=== PATIENT | female | born 1965 | race Caucasian/White ===

== ENCOUNTER → 2019-03-14 | Outpatient (CLI) | payer OTHER, SELFPAY ==
--- NOTE | 2019-03-14 16:52 | EKG12_ITS ---
Test Reason : PREOP Blood Pressure : / mmHG Vent. Rate : 057 BPM Atrial Rate : 057 BPM P-R Int : 182 ms QRS Dur : 084 ms QT Int : 398 ms P-R-T Axes : 052 066 057 degrees QTc Int : 387 ms Sinus bradycardia Otherwise normal ECG No previous ECGs available Confirmed by TRISTON SHEARER ([id number]), graphic editor CHETAN ROJAS ([id number]) on 03/17/2019 11:29:11 AM Referred By: Francis Ochoa Confirmed By:TRISTON SHEARER
--- NOTE | 2019-03-14 17:04 | RAD_ITS ---
STUDY: X-RAY CHEST REASON FOR EXAM: Female, 53 years old. Preoperative TECHNIQUE: PA and lateral views of the chest COMPARISON: None. FINDINGS: The lungs are clear. There are no pleural effusions. There is no pneumothorax. The heart is normal in size. The visualized osseous structures are within normal limits. RAD/Chest PA and Lateral IMPRESSION: No acute thoracic pathology. Electronically Signed: Jose Del Real, at 20:03 EST Tel , Service support ,
== END | disposition home or self-care (01) ==
LOC: RAD 16:50
PROVIDERS: Referring Provider Physician Assistant; Visit Provider Physician Assistant
DX: Z01.810 Encounter for preprocedural cardiovascular examination (principal); F17.200 Nicotine dependence, unspecified, uncomplicated
CPT/HCPCS: 71046; 93005

== ENCOUNTER → 2019-04-11 15:17 | Outpatient (CLI) | payer OTHER, SELFPAY ==
--- NOTE | 2019-04-11 15:31 | EKG12_ITS ---
Test Reason : PRE OP Blood Pressure : / mmHG Vent. Rate : 066 BPM Atrial Rate : 066 BPM P-R Int : 174 ms QRS Dur : 086 ms QT Int : 392 ms P-R-T Axes : 044 058 060 degrees QTc Int : 410 ms Normal sinus rhythm Normal ECG Confirmed by DORI SHEEHAN, GERRI ([id number]), society editor TANG CORDERO ([id number]) on 04/12/2019 11:25:30 AM Referred By: Francis Ochoa Confirmed By:GERRI MEADOWS MD
[2019-04-11 16:34] LABS: Hematocrit 44.7 % (37-47); Hemoglobin 14.8 g/dL (12.0-15.0); Mean Corp Hgb Conc 33.1 g/dL (32-36); Mean Corpuscular Hgb 30.8 pg (27.0-32.0); Mean Corpuscular Volume 92.9 fL (81-99); Platelet Count 216 K/mm3 (150-450); RBC Distribution Width CV 12.6 % (11.6-14.6); RBC Distribution Width SD 43.3 fl (35.1-43.9); Red Blood Count 4.81 M/mm3 (4.2-5.4); White Blood Count 6.2 K/mm3 (4.4-11.0)
[2019-04-11 16:51] LABS: Anion Gap 5 (5-15); BUN 5 mg/dL (7-18); BUN/Creat Ratio 5.3 RATIO (10-20); Calcium,Total 8.7 mg/dL (8.5-10.1); Chloride 108 mmol/L (98-107); Creatinine, Serum 0.95 mg/dL (0.55-1.02); EST Glomerular Filtration Rate 66 mL/min (>60); Est Glom Filt Rate - Afr Amer 80 mL/min (>60); Glucose 94 mg/dL (74-106); Potassium 3.8 mmol/L (3.5-5.1); Sodium Level 139 mmol/L (136-145)
== END ==
PROVIDERS: Referring Provider Physician Assistant; Visit Provider Physician Assistant
DX: Z01.810 Encounter for preprocedural cardiovascular examination (principal); Z01.818 Encounter for other preprocedural examination
CPT/HCPCS: 36415; 80048; 85027; 93005

== ENCOUNTER → 2019-06-29 09:21 | Outpatient (CLI) | payer OTHER, SELFPAY ==
[2019-06-29 10:55] LABS: Cholesterol 242 mg/dL (200); High Density Lipoprotein 50 mg/dL; Triglycerides 228 mg/dL; Very Low Density Lipoprotein 46 mg/dL (5-40)
== END ==
DX: E78.5 Hyperlipidemia, unspecified (principal)
CPT/HCPCS: 36415; 80061

== ENCOUNTER → 2019-11-29 08:21 | Outpatient (CLI) | payer OTHER, SELFPAY ==
--- NOTE | 2019-11-29 08:24 | BI_ITS ---
MAMMOGRAPHY - BILATERAL SCREENING REASON FOR EXAM: Female, 54 years old. Routine annual screening examination. PERTINENT HISTORY: Non-contributory. TECHNIQUE: Digital bilateral breast archie (3D mammographic acquisition) in the CC and MLO projections. 2-D mediolateral oblique (MLO) and craniocaudad (CC) views of both breasts were obtained. CAD: Full Field Digital Mammography with Computer Added Detection was performed. COMPARISON: Comparison is made with prior outside examination dated 06/07/2015. FINDINGS: Breast Composition: The breasts are heterogeneously dense, which may obscure small masses. There are no dominant masses or suspicious calcifications. Stable benign-appearing bilateral axillary lymph nodes. No other significant abnormalities are identified. There has been no significant change since the prior study. BI/SCREEN MAMM (CAD) W/ARCHIE BILAT IMPRESSION: Stable bilateral screening mammogram. Yearly follow-up mammogram recommended. (A) ASSESSMENT CATEGORY: BIRADS Category 2: Benign. A letter regarding these results will be sent to the patient by the facility within 30 days. Approximately 10% of breast cancers are not detected by mammography. A normal mammogram should not delay biopsy of a clinically suspicious abnormality. [id number] Electronically Signed: Meliton Barrios, at 8:40 EDT , Service support ,
--- NOTE | 2019-11-29 08:58 | BD_ITS ---
STUDY: DUAL ENERGY X-RAY ABSORPTIOMETRY / DXA REASON FOR EXAM: Female, 54 years old. SMOKER -- USES STEROID INHALER DAILY x 1 YR -- TAKES ANTI-SEIZURE MEDS FOR BIPOLAR DISORDER -- TAKES MULTIVITAMIN -- DOES MODERATE AMOUNT OF EXERCISE -- YUDY OF 2.25 INCHES TECHNIQUE: Bone Mineral Density (BMD) measurements of lumbar spine and bilateral hips were obtained. COMPARISON: None. FINDINGS: Lumbar Spine (L1-L4): g/cm2 (0.981) / T-score (-1.7) / Z-score (-1.1) Findings are suggestive of osteopenia with a moderate fracture risk. Left Femur Total: g/cm2 (0.912) / T-score (-0.8) / Z-score (-0.2) Left Femoral Neck: g/cm2 (0.838) / T-score (-1.4) / Z-score (-0.6) Right Femur Total: g/cm2 (0.896) / T-score (-0.9) / Z-score (-0.3) Right Femoral Neck: g/cm2 (0.804) / T-score (-1.7) / Z-score (-0.8) BD/Dexa Bone Density Study IMPRESSION: The patient is considered osteopenic as outlined below according to World Pete Organization (WHO) criteria with a moderate fracture risk. Reference Information: The T-score is the number of standard deviations above or below the standard which is normal for young adults at their peak bone mineral density. The World Health Organization (WHO) interprets the T-scores as follows: Above -1 Normal bone density Between -1 and -2.5 Osteopenia Equal to / or below -2.5 Osteoporosis As a practical clinical guideline, osteopenia may be graded as follows: Mild -1 through -1.5 Moderate -1.6 through -2.0 Severe -2.1 through -2.4 The Z-score is the number of standard deviations above or below age-matched controls. A Z-score of less than -1.5 would be considered abnormal. References: 1. NIH Osteoporosis and Related Bone Diseases http://www.osteo.org 2. International Society for Clinical Densitometry http://www.iscd.org 3. National Osteoporosis Foundation http://www.nof.org Electronically Signed: Meliton Barrios, at 15:12 EDT , Service support ,
== END ==
PROVIDERS: PCP Internal Medicine; Referring Provider Internal Medicine; Visit Provider Internal Medicine
DX: Z12.31 Encounter for screening mammogram for malignant neoplasm of breast (principal); Z78.0 Asymptomatic menopausal state
CPT/HCPCS: 77063; 77067; 77080

== ENCOUNTER 2019-12-08 10:00 | Outpatient (RCR) | payer OTHER, SELFPAY ==
--- NOTE | 2019-10-24 14:29 | HP.PTEVAL_ITS ---
Patient's Visit Information ERIC SETHI is a 54 year old F referred to Physical Therapy by Dr. Michael Ashby DO with a diagnosis of Right RTC Repair Apr 2019. Date of Evaluation: 10/24/19 Physical Therapist: Lily Guillermo DPT - Visit Plan Frequency: 3-5x a week Duration: 6 Weeks Plan: Work conditioning- 3x-5x a week- progress to HEP. Please use appropriate codes - Subjective Works for [employer]- Walking through the parking lot at work- caught her toe and fell- right arm injury- October 2018- going through [facility]- finally was approved for surgery- had surgery Apr 2019- did all of her stuff during COVID- bands, arm bike etc. She needs to be able to lift #70 floor to waist and to overhead shelf. She uses a TENS unit at home but feels really stiff. Sent to PT for conditioning. She feels really good going overhead and out to the side- struggles to push out in front of her and pull into her body. Pain is located through the whole shoulder- She does have N/T down to her hand on the right side. Does a lot of overhead activities at work. Has been sleeping in a reclyner and has just started sleeping on her bed in the past few weeks. She is now having a hard time getting comfortable. Has a hard time sweeping her living room with the right shoulder- Worst: 8/10 Agg: overhead activities Eases: TENS unit, hand held massager and rest Best: 0/10. Feels that she is 70-75% back to her normal activities- doesnt feel she has good strength. PMHx/Meds: see list. 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 - Objective Posture: Fh, RS, can correct with verbal cues. Gait: no deviation- good arm swing and trunk rotation. ROM: WNL in all planes of the right upper extremity. Strength:Left Customer Sales Consultant: 60/65/60 Right Customer Sales Consultant: 70/60/60. Shoulder: Flexion: 30.8, 30.1 Extn:18.4, 20.5 Abd: 17.0, 15.8 Add: 18.3, 17.1 IR: 17.3, 18.1 ER: 16.8, 14.9. Elbow: 5/5, Wrist: 5/5 - Goals Goal 1:: Patient will be I with HEP and progression Goal Time Frame: 4-6 Weeks Goal 2:: Patient will lift #70 from floor to waist x10 Goal Time Frame: 4-6 Weeks Goal 3:: Patient will lift #70 from waist to overhead x10 Goal Time Frame: 4-6 Weeks Goal 4:: Patient will stack cones overhead for 8 minutes with 1- 30 sec rest break Goal Time Frame: 4-6 Weeks - Rehabilitation Potential Physical Therapy Diagnosis: Patient presents with hypomobility- she has decreased strength and muscular endurance leading to decreased work tolerance. Rehabilitation Potential: Fair - Anticipated Interventions Patient/Client Instruction: Educate patient on: Benefits of Fitness Program Therapeutic Exercise to Include: Strength training, Endurance training, Agility training, Body mechanics, Postural training, Neuromotor development, Passive ROM, Active ROM, Dynamic Lumbar Stabilization, Scapular Strength/Stabilization For the Purpose of:: To improve muscle performance and motor function Functional Training to Include: Functional work training TENS: Yes Cryotherapy (ice pack, ice massage): Yes Thermo therapy (hot pack): Yes Thank you for the opportunity to evaluate your patient. For Medicare and Medicare HMO plans, please review the plan of care and approve it. It will need to be FAXED BACK to us at [phone] for Medicare purposes. For Medicare only, by signing this I certify the plan of care. Please let me know if there are questions or concerns regarding this plan of care. Physician Signature: Date:
--- NOTE | 2019-12-08 10:45 | HP.PTDCSUM ---
It has been my pleasure to treat ERIC SETHI referred by Dr. Michael Ashby DO, with the diagnosis of Right RTC Repair Apr 2019 for a total of 23 visit(s). Discharge Date: Please see the following information for a summary of their discharge status. Subjective: I return to work tomorrow. No pain in R shoulder R SH Pain Intensity (Out of 10): 0 % Improvement: 95 Objective/Function: R shoulder pain 0/10. R shoulder ROM: flex= 155, abd= 150, ER= 70. R shoulder MMT: 5/5 throughout. I with gym routine. Rx goals achieved Goal 1:: Patient will be I with HEP and progression Goal Progress: Goal Met Goal 2:: Patient will lift #70 from floor to waist x10 Goal Progress: Goal Met Goal 3:: Patient will lift #70 from waist to overhead x10 Goal Progress: Goal Met Goal 4:: Patient will stack cones overhead for 8 minutes with 1- 30 sec rest break Goal Progress: Goal Met Plan: Discharge If there are questions or concerns regarding this patient's physical therapy, please feel free to call me at [phone]. Thank you for the referral of this patient. Sincerely, Skip Juarez, PT, ATC
== END 2019-12-08 19:00 | disposition home or self-care (01) ==
LOC: PT 10:00
PROVIDERS: Referring Provider Orthopaedic Surgery; Visit Provider Orthopaedic Surgery
DX: S46.091D Other injury of muscle(s) and tendon(s) of the rotator cuff of right shoulder, subsequent encounter (principal)
CPT/HCPCS: 97110; 97162; 97164; 97530

== ENCOUNTER 2020-04-01 15:15 | Outpatient (RCR) | payer OTHER, SELFPAY ==
--- NOTE | 2020-04-11 09:03 | MASS.DISCH ---
Massage Therapy Discharge Summary: Initial Evaluation Date: 11/23/2019 Diagnosis: MUSCLE SPASM No. of Visits: 4 Date of last visit: 04/01/2020 This patient is being discharged from our care at the [facility]. Thank you, Eleonora Buck LMT
== END 2020-04-01 19:00 | disposition home or self-care (01) ==
LOC: MASS 15:15
PROVIDERS: Referring Provider Internal Medicine; Visit Provider Internal Medicine
DX: M62.838 Other muscle spasm (principal)
CPT/HCPCS: 97124

== ENCOUNTER 2020-06-25 08:59 | Emergency (ER) | payer OTHER, SELFPAY ==
[2020-06-25 09:01] VITALS: BP 127/83; PULSE 91; RESP 22; TEMP 35.7; O2SAT 95; BMI 26.6
--- NOTE | 2020-06-25 09:21 | EKG12_ITS ---
Test Reason : SOB Blood Pressure : / mmHG Vent. Rate : 074 BPM Atrial Rate : 074 BPM P-R Int : 164 ms QRS Dur : 088 ms QT Int : 372 ms P-R-T Axes : 057 066 064 degrees QTc Int : 412 ms Normal sinus rhythm Possible Left atrial enlargement Nonspecific T wave abnormality Abnormal ECG Confirmed by DORI SHEEHAN, GERRI ([id number]), editorial specialist JANEL CHEN ([id number]) on 06/26/2020 12:48:05 PM Referred By: EDU Confirmed By:GERRI MEADOWS MD
--- NOTE | 2020-06-25 09:23 | ED.DCSUM_ITS ---
History of Present Illness Chief Complaint: Shortness of Breath Informant: Patient Narrative: 54-year-old female presenting with shortness of breath. She states that she has had shortness of breath since she had Covid in April. She states that 2 weeks ago she was admitted for chest pressure. She had a normal echocardiogram. She had a negative CTA for PE or other abnormalities. 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 She states yesterday was a little bit worse. Patient admits to smoking but is trying to cut down. She has no diagnosis of COPD or asthma. Past Medical History - Allergies and Home Meds Allergies/Adverse Reactions: Allergies aspirin [ASA] Allergy (Verified 06/25/20 09:01) Other budesonide [From Symbicort] Allergy (Verified 06/25/20 09:01) Anaphylaxis formoterol [From Symbicort] Allergy (Verified 06/25/20 09:01) Anaphylaxis Penicillins [PCN] Allergy (Verified 06/25/20 09:01) Hives tape Allergy (Uncoded 06/25/20 09:01) Hives Primary Care Physician: Lida Cool DO [Primary Care Provider] - Past Medical History: - - CAD, cardiac stents Surgical History: noncontributory Lives: Spouse/ Significant Other Smoking Status: Former smoker Alcohol: None Drugs: None Review of Systems General: Denies: Chills, Fever, Sweats Eyes: Denies: Visual changes - bilaterally, Diplopia ENT: Denies: Rhinorrhea, Sore throat Cardiovascular: Denies: Chest pain, Palpitations Respiratory: Reports: Dyspnea, Dyspnea on exertion Gastrointestinal: Denies: Abdominal pain, Nausea Genitourinary: Denies: Dysuria, Hematuria Musculoskeletal: Denies: Myalgias, Arthralgias Skin: Denies: Rash, Abscess Neurological: Denies: Headache, Weakness, Parasthesia Psych: Denies: Depression, Anxiety Physical Exam Vital Signs/Narrative: Vital Signs Temp Pulse Resp BP Pulse Ox 06/25/20 09:01 96.3 F L 91 22 H 127/83 H 95 Inital Vital Signs reviewed: Yes General: Well nourished, No Acute Distress Head: Normocephalic, Atraumatic Eyes: Perrl, EOMI ENT: Moist mucous membranes, No rhinorrhea Respiratory: No distress, Chest nontender, Wheezing Extremities: Nontender, No edema Skin: Normal color, No rash. Negative for: Cyanosis, Diaphoresis Neurological: Alert, Oriented x3, Cranial nerves II-XII grossly intact Psychological: Normal affect, Normal Mood Diagnostic/Tx/Re-eval - Rhythm Strip Rhythm Strip: Sinus Rhythm Rate: 74 - Medical Decision Making 54-year-old female presenting with shortness of breath. On examination she is wheezing. 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 Patient states she continues to smoke but has cut down. Review of the medical record in [facility] work was normal with exception of leukopenia. Patient had a negative CTA. Patient states that her echocardiogram on admission was normal. Protocol EKG interpreted by myself which shows a sinus rhythm without acute ischemic changes. Given patient's most recent extensive work-up I do not believe she needs lab work or imaging at this time. Since she is wheezing I will give her breathing treatments and prednisone. Patient reevaluated after breathing treatments and states she feels much improved. Her wheezing has resolved on reevaluation. I will start her on doxycycline as well. Patient counseled to discontinue smoking. Patient will be discharged home with doxycycline, prednisone burst. She states she already has an inhaler at home. Patient counseled to follow-up with her PCP to ensure resolution. Impression: 1. Acute bronchitis ED Disposition - Plan for ED Patient: Disposition: Home or Assisted Living Instructions: ED Bronchitis with Wheezing (Adult) Prescriptions: Doxycycline 100 mg PO BID #20 cap Prescription Printed predniSONE tablet 60 mg PO DAILY #15 tab Prescription Printed Referrals: Lida Cool DO [Primary Care Provider] -
[2020-06-25 09:45] VITALS: PULSE 84; RESP 16
[2020-06-25] MEDS: Albuterol 2.5 MG/3 ML VIAL.NEB. INHALATION (09:45)
[2020-06-25] MEDS: Ipratropium/Albuterol Sulfate 3 ML AMPUL.NEB INHALATION (09:45)
[2020-06-25] MEDS: Doxycycline 100 MG CAPSULE PO (09:57)
[2020-06-25] MEDS: predniSONE 20 MG Tablet 60 MG PO (09:57)
[2020-06-25 10:11] VITALS: BP 113/70; PULSE 62; RESP 15; O2SAT 97
== END 2020-06-25 10:12 | disposition home or self-care (01) ==
PROVIDERS: Emergency Provider Student in an Organized Health Care Education/Training Program; PCP Internal Medicine
DX: J20.9 Acute bronchitis, unspecified (principal); I25.10 Atherosclerotic heart disease of native coronary artery without angina pectoris; Z87.891 Personal history of nicotine dependence; Z95.5 Presence of coronary angioplasty implant and graft
CPT/HCPCS: 93005; 94640; 99283

== ENCOUNTER 2020-07-05 08:13 | Outpatient (CLI) | payer OTHER, SELFPAY ==
[2020-07-05 09:10] VITALS: BP 107/67; PULSE 74; RESP 16; TEMP 36.8; O2SAT 100; BMI 26.6
[2020-07-05] MEDS: 0.9% NaCl Peripheral Flush Adult/Peds IV ×3 (09:16→09:24)
== END 2020-07-05 14:00 | disposition home or self-care (01) ==
PROVIDERS: PCP Internal Medicine; Referring Provider Internal Medicine; Visit Provider Internal Medicine
DX: R05 Cough (principal); R09.89 Other specified symptoms and signs involving the circulatory and respiratory systems
CPT/HCPCS: 96374; A4216

== ENCOUNTER 2020-07-05 20:51 | Outpatient (CLI) | payer OTHER, SELFPAY ==
[2020-07-05 09:10] VITALS: BMI 26.6
[2020-07-05 20:20] VITALS: BP 116/71; PULSE 72; RESP 16; TEMP 36.9; O2SAT 97
[2020-07-05] MEDS: 0.9% NaCl Peripheral Flush Adult/Peds IV (21:03)
== END 2020-07-05 21:26 ==
LOC: MEDOUTP 20:51 → MS3 20:52 → MEDOUTP 01-14 07:43
PROVIDERS: PCP Internal Medicine; Referring Provider Internal Medicine; Visit Provider Internal Medicine
DX: R05 Cough (principal); R09.89 Other specified symptoms and signs involving the circulatory and respiratory systems
CPT/HCPCS: A4216

== ENCOUNTER 2020-07-06 08:05 | Outpatient (CLI) | payer OTHER, SELFPAY ==
[2020-07-05 09:10] VITALS: BMI 26.6
[2020-07-06] MEDS: 0.9% Saline Lock 10 ML Syringe IV (08:40)
== END 2020-07-06 08:45 | disposition home or self-care (01) ==
LOC: MEDOUTP 08:06 → MS3 08:07
PROVIDERS: PCP Internal Medicine; Referring Provider Internal Medicine; Visit Provider Internal Medicine
DX: R05 Cough (principal); R09.89 Other specified symptoms and signs involving the circulatory and respiratory systems
CPT/HCPCS: A4216

== ENCOUNTER 2020-07-06 19:45 | Outpatient (CLI) | payer OTHER, SELFPAY ==
[2020-07-05 09:10] VITALS: BMI 26.6
[2020-07-06 19:54] VITALS: BP 115/73; PULSE 80; RESP 20; TEMP 36.9; O2SAT 96
[2020-07-06] MEDS: 0.9% NaCl Peripheral Flush Adult/Peds IV ×2 (19:59→20:00)
== END 2020-07-06 20:09 | disposition home or self-care (01) ==
LOC: MEDOUTP 19:47 → MS3 19:47
PROVIDERS: PCP Internal Medicine; Referring Provider Internal Medicine; Visit Provider Internal Medicine
DX: R05 Cough (principal); R09.89 Other specified symptoms and signs involving the circulatory and respiratory systems
CPT/HCPCS: 96372; A4216

== ENCOUNTER 2020-07-07 07:44 | Outpatient (CLI) | payer OTHER, SELFPAY ==
[2020-07-07] MEDS: 0.9% Saline Lock 10 ML Syringe IV (08:14)
[2020-07-07 20:03] VITALS: BP 117/79; PULSE 82; RESP 20; TEMP 37; O2SAT 97
== END 2020-07-07 20:14 | disposition home or self-care (01) ==
LOC: MS3OUT 07:52 → MS3 07:53 → MEDOUTP 19:56 → MS3 19:58
PROVIDERS: PCP Internal Medicine; Visit Provider Internal Medicine
DX: R05 Cough (principal); R09.89 Other specified symptoms and signs involving the circulatory and respiratory systems
CPT/HCPCS: 96374; 96376; A4216

== ENCOUNTER → 2020-07-15 13:46 | Outpatient (CLI) | payer OTHER, SELFPAY ==
[2020-07-05 09:10] VITALS: BMI 26.6
--- NOTE | 2020-07-15 13:48 | VDLE_ITS ---
Reason For Study: PAIN RIGHT LEFT GSV is normal. CFV is compressible, spontaneous, phasic, CFV is compressible, spontaneous, phasic, competent, and demonstrates normal competent and demonstrates normal augmentation. augmentation. FV is compressible, spontaneous, phasic, competent and demonstrates normal augmentation. POP V is compressible, spontaneous, phasic, competent and demonstrates normal augmentation. T/P Trunk is compressible. PTV is compressible. RT PerV is compressible. Procedure Exam performed in department. A preliminary report was called and/or faxed to Marva Black. Interpretation Summary Deep veins of the right lower extremity are patent and compressible segmentally. There is no evidence of right lower extremity deep vein thrombosis. Valvular competence appears intact within the proximal deep venous system on the right . The right great saphenous vein appears patent and compressible segmentally. Ordering Physician: Marva Black Referring Physician: SOLIS PASTRANA Performed By: Brianda Harris, MT, RVT
== END ==
PROVIDERS: PCP Internal Medicine; Referring Provider Nurse Practitioner; Visit Provider Nurse Practitioner
DX: M79.661 Pain in right lower leg (principal)
CPT/HCPCS: 93971

== ENCOUNTER → 2020-10-28 12:00 | Outpatient (CLI) | payer OTHER, SELFPAY ==
[2020-10-28 15:47] LABS: Hematocrit 41.9 % (37-47); Hemoglobin 13.1 g/dL (12.0-15.0); Mean Corp Hgb Conc 31.3 g/dL (32-36); Mean Corpuscular Hgb 27.8 pg (27.0-32.0); Mean Corpuscular Volume 88.8 fL (81-99); Mean Platelet Vol. 9.4 fl (6.2-12.0); Platelet Count 208 K/mm3 (150-450); RBC Distribution Width CV 13.9 % (11.6-14.6); RBC Distribution Width SD 44.8 fl (35.1-43.9); Red Blood Count 4.72 M/mm3 (4.2-5.4); White Blood Count 5.5 K/mm3 (4.4-11.0)
[2020-10-28 16:42] LABS: ALB/GLOB Ratio 1.1 RATIO (0.9-2.4); AST(SGOT) 25 U/L (15-37); Alanine Aminotransfer ALT/SGPT 36 U/L (13-56); Albumin, Serum 3.4 g/dL (3.2-5.0); Alkaline Phosphatase 115 U/L (45-117); Anion Gap 9 (5-15); BUN 8 mg/dL (7-18); BUN/Creat Ratio 8.6 RATIO (10-20); Calcium,Total 8.4 mg/dL (8.5-10.1); Chloride 110 mmol/L (98-107); Creatinine, Serum 0.93 mg/dL (0.55-1.02); EST Glomerular Filtration Rate 67 mL/min (>60); Est Glom Filt Rate - Afr Amer 81 mL/min (>60); Globulin 3.2 g/dL (2.2-4.2); Glucose 120 mg/dL (74-106); Potassium 3.1 mmol/L (3.5-5.1); Protein, Total 6.6 g/dL (6.4-8.2); Sodium Level 141 mmol/L (136-145)
== END ==
PROVIDERS: PCP Internal Medicine
DX: F31.32 Bipolar disorder, current episode depressed, moderate (principal)
CPT/HCPCS: 36415; 80053; 80156; 85027

== ENCOUNTER → 2021-02-10 07:42 | Outpatient (CLI) | payer OTHER, SELFPAY ==
[2021-02-10 08:19] LABS: Hematocrit 44.3 % (37-47); Hemoglobin 14.3 g/dL (12.0-15.0); Mean Corp Hgb Conc 32.3 g/dL (32-36); Mean Corpuscular Hgb 28.8 pg (27.0-32.0); Mean Corpuscular Volume 89.3 fL (81-99); Platelet Count 213 K/mm3 (150-450); RBC Distribution Width CV 13.7 % (11.6-14.6); RBC Distribution Width SD 44.5 fl (35.1-43.9); Red Blood Count 4.96 M/mm3 (4.2-5.4); White Blood Count 5.7 K/mm3 (4.4-11.0)
[2021-02-10 08:36] LABS: Carbamazepine (Tegretol) 12.5 ug/mL (4.0-12.0)
[2021-02-10 08:44] LABS: AST(SGOT) 23 U/L (15-37); Alanine Aminotransfer ALT/SGPT 38 U/L (13-56); Albumin, Serum 3.5 g/dL (3.2-5.0); Alkaline Phosphatase 125 U/L (45-117); Anion Gap 3 (5-15); BUN 11 mg/dL (7-18); BUN/Creat Ratio 11.1 RATIO (10-20); Calcium,Total 8.6 mg/dL (8.5-10.1); Chloride 114 mmol/L (98-107); EST Glomerular Filtration Rate 62 mL/min (>60); Est Glom Filt Rate - Afr Amer 75 mL/min (>60); Globulin 3.6 g/dL (2.2-4.2); Glucose 102 mg/dL (74-106); Potassium 3.9 mmol/L (3.5-5.1); Protein, Total 7.1 g/dL (6.4-8.2); Sodium Level 142 mmol/L (136-145)
== END ==
PROVIDERS: PCP Internal Medicine
DX: F31.32 Bipolar disorder, current episode depressed, moderate (principal)
CPT/HCPCS: 36415; 80053; 80156; 85027

== ENCOUNTER 2021-03-09 01:39 | Emergency (ER) | payer OTHER, SELFPAY ==
[2021-03-09 01:39] VITALS: BP 103/80; PULSE 70; RESP 17; TEMP 36.3; O2SAT 96; BMI 26.2
--- NOTE | 2021-03-09 02:04 | EKG12_ITS ---
Test Reason : CP Blood Pressure : / mmHG Vent. Rate : 066 BPM Atrial Rate : 066 BPM P-R Int : 160 ms QRS Dur : 086 ms QT Int : 398 ms P-R-T Axes : 062 071 072 degrees QTc Int : 417 ms Normal sinus rhythm Normal ECG Confirmed by DIANA SHEEHAN, ELIDIA ([id number]), editor house organ JANEL CHEN ([id number]) on 03/10/2021 10:45:02 AM Referred By: JANUARY Confirmed By:ELIDIA ORTIZ MD
--- NOTE | 2021-03-09 02:04 | RAD_ITS ---
STUDY: X-RAY CHEST REASON FOR EXAM: Female, 55 years old. chest pain TECHNIQUE: Single AP portable view of the chest. COMPARISON: July 04, 2020. FINDINGS: No focal infiltrates or effusions. No pneumothorax. Normal size heart. Normal mediastinum and saloni. Normal visualized pulmonary arteries. Normal visualized aortic arch and descending thoracic aorta. Normal visualized thoracic spine. Normal visualized ribs, clavicles, and shoulders. There is no demonstrated abnormality of the visualized soft tissue structures of the upper abdomen. RAD/Chest 1 View (Portable) IMPRESSION: Normal x-ray examination of the chest. Electronically Signed: Avila Rae MD at 2:24 EST , Service support ,
--- NOTE | 2021-03-09 02:05 | ED.VIS.CHEST ---
HPI History of Present Illness Chief Complaint: Chest Pain Informant: patient Onset/Context/Timing Onset: Hours (1-2) Activity at onset: sudden, onset, activity on onset and sleep Timing: Continuous Quality: Positive for Pressure Location: Substernal (Without radiation/migration, arm, jaw, or back discomfort) Current Severity: 2/10 Maximum Severity: 10/10 Worsened By: Nothing Relieved By: Nothing Associated Symptoms: Positive for Nausea, Dyspnea and Lightheadedness (Near syncopal without palpitations); Negative for Vomiting, Diaphoresis, Cough and Fever Narrative Narrative: Patient concerns she woke up with a severe episode of nonpleuritic substernal chest pressure that made her feel like she was going to pass out, a little short of breath, and nauseated. The discomfort has subsided it is still present, but much more mild than the other symptoms are gone. She has a history of 2 stents that were placed in around 3 years ago.. She continues to smoke and recently was diagnosed with COPD. She has a history of being diagnosed with Covid almost 1 year ago and had pneumonia associated with it for 2 or 3 months but has since recovered. She is allergic to aspirin and takes clopidogrel daily, last taken yesterday morning. No recent leg pain or swelling, no history of DVT or PE, no recent long travel, immobilization, hospitalization, or surgery. Recent Illness/Hospitalization: No PE Risk Factors: Negative for Recent Travel/Surgery, Recent Immobilization, Prior DVT or PE, Cancer and OCP + Smoking + >/=35 PFSH [facility] Medical History CAD (coronary artery disease) COPD (chronic obstructive pulmonary disease) Home Medications doxycycline monohydrate 100 mg PO BID #20 cap 06/25/20 [Rx Last Taken Unknown] prednisone 60 mg PO DAILY #15 tab 06/25/20 [Rx Last Taken Unknown] albuterol sulfate 8.5 gm INHALATION DAILY 07/05/20 [History Last Taken Unknown] alirocumab 75 mg SQ DAILY 07/05/20 [History Last Taken Unknown] azelastine 1 spray NASAL DAILY 07/05/20 [History Last Taken Unknown] cariprazine 1.5 mg PO DAILY 07/05/20 [History Last Taken Unknown] clonazepam 0.5 mg PO DAILY 07/05/20 [History Last Taken Unknown] clopidogrel 75 mg PO DAILY 07/05/20 [History Last Taken Unknown] topiramate 100 mg PO DAILY 07/05/20 [History Last Taken Unknown] trazodone 50 mg PO QHS 07/05/20 [History Last Taken Unknown] vilazodone 07/05/20 [History Last Taken Unknown] Allergy/AdvReac Type Severity Reaction Status Date / Time aspirin [ASA] Allergy Other Verified 07/05/20 09:02 budesonide [From Symbicort] Allergy Anaphylaxis Verified 07/05/20 09:02 formoterol [From Symbicort] Allergy Anaphylaxis Verified 07/05/20 09:02 latex Allergy Hives Verified 03/09/21 01:44 EST Penicillins [PCN] Allergy Hives Verified 07/05/20 09:02 tape Allergy Hives Uncoded 06/25/20 09:01 Surgical History (Updated 03/09/21 @ 01:44 EST by Lily Mccurdy) H/O: hysterectomy History of cholecystectomy History of heart artery stent Hx of tonsillectomy Social History Smoking Status: Current every day smoker tobacco type: cigarettes ROS ROS ED Constitutional Constitutional ED: Reports malaise; Denies chills or fever(s) Eyes Eyes: Denies change in vision or diplopia ENT ENT ED: Denies rhinorrhea or sore throat Cardiovascular Cardiovascular: Reports chest pain; Denies palpitations Respiratory/Chest Respiratory/Chest: Reports dyspnea; Denies cough Gastrointestinal Gastrointestinal: Denies abdominal pain, diarrhea, nausea or vomiting Genitourinary Genitourinary ED: Denies dysuria or hematuria Musculoskeletal Musculoskeletal: Denies back pain or neck pain Integumentary Denies abscess or rash Neurologic Neurologic: Denies headache(s), paresthesias or weakness Psychiatric Psychiatric: Denies anxiety or suicidal thoughts EXAM Physical Exam Const Vital Signs: 03/09/21 01:39 EST 03/09/21 01:41 EST 03/09/21 02:19 Temperature 97.3 F L Temperature Source Temporal Pulse Rate 70 Respiratory Rate 17 Respiratory Effort Normal Respiratory Pattern Normal Blood Pressure 103/80 Blood Pressure Mean 87 Pulse Ox 96 Oxygen Delivery Method Room Air Nasal Cannula Oxygen Flow Rate (L/min) 2 03/09/21 04:05 Temperature Temperature Source Pulse Rate 63 Respiratory Rate 19 H Respiratory Effort Respiratory Pattern Blood Pressure 108/77 Blood Pressure Mean 87 Pulse Ox 93 Oxygen Delivery Method Room Air Oxygen Flow Rate (L/min) Positive well nourished and well developed Constitutional Narrative: Well-appearing conversive in full sentences General Appearance ED: well developed and NAD HEENT Reports moist mucous membranes normocephalic and atraumatic Eyes PERRL and EOMs intact bilaterally Neck full ROM and supple Resp normal respiratory effort and clear to auscultation bilaterally Cardio regular rate, regular rhythm and no murmurs Rate: Negative for tachycardic GI non-tender and non-distended Auscultation: normoactive bowel sounds Palpation: soft Back/Spine no CVA tenderness General Back: other FROM Extremity normal to inspection General Extremety ED: Negative for edema, pulses abnormal or tenderness General Extremity: Negative for edema or pulses abnormal Neuro oriented x3, CN's II-XII intact bilaterally and no sensory deficits noted Sensorium / Orientation: awake and alert Motor Exam: strength 5/5 throughout Skin no rashes or lesions noted and no wounds Heart Score History: Moderately Suspicious ECG: Normal Age: >45 - <65 years Risk Factors: >/= 3 Risk Factors or History of CAD Troponin: </= Normal Limit Score: 4 MDM MDM MDM Narrative Medical decision making narrative: Initial work-up normal including EKG and troponin, we did a 2-hour delta troponin, the repeat came back even lower at 5 compared to the initial at 6. Patient was given some Mylanta given that this is less likely cardiac, it did not make a difference and she was offered nitroglycerin but she did not want anything else for her discomfort and is comfortable going home. I do not think she needs work-up for a pulmonary embolus here, she has no tachycardia, tachypnea, hypoxemia, nor are her symptoms pleuritic or suggesting this diagnosis. Advise close outpatient follow-up if symptoms persist. Lab Data Attestation: I reviewed the patient's lab results. Labs: Laboratory Results - last 24 hr 03/09/21 03/09/21 03/09/21 01:43 EST 01:43 EST 03:50 WBC 6.4 RBC 4.90 Hgb 14.0 Hct 44.5 MCV 90.8 MCH 28.6 MCHC 31.5 L RDW Std Deviation 45.5 H RDW Coeff of Benigno 13.6 Plt Count 213 MPV 9.6 Immature Gran % (Auto) 0.300 Neut % (Auto) 48.7 Lymph % (Auto) 39.1 Rowan % (Auto) 8.0 Eos % (Auto) 3.3 Baso % (Auto) 0.6 Absolute Neuts (auto) 3.1 Absolute Lymphs (auto) 2.50 Nucleated RBC % 0 Sodium 141 Potassium 3.9 Chloride 113 H Carbon Dioxide 26.0 Anion Gap 2 L BUN 11 Creatinine 1.04 H Estim Creat Clear Calc 60.83 Est GFR (MDRD) Af Amer 71 Est GFR (MDRD) Non-Af 59 L BUN/Creatinine Ratio 10.6 Glucose 128 H Calcium 8.5 Troponin I High Sens 6 5 Radiography Chest X-Ray - ED: 1 View, Read by ED Physician, Normal and No Acute Disease Diagnostic Testing: Clinical Impression(s) from Imaging Studies Chest X-Ray 03/09/21 02:04 IMPRESSION: Normal x-ray examination of the chest. Electronically Signed: Avila Rae MD at 2:24 EST , Service support , EKG Initial EKG: Attestation: I personally reviewed and interpreted this EKG as follows: Interpretation: Sinus Rhythm and No Acute Injury Pattern Comments: Normal EKG Prior EKG tracings: available for review Prior: Unchanged Discharge Plan Triage Chief Complaint: Chest Pain ED Provider: Ronald Castro Dx/Rx/DC Orders Clinical Impression: Chest pain Instructions: ED Chest Pain, Uncertain Cause Prescriptions: No Action doxycycline monohydrate 100 MG capsule 100 mg PO BID Qty: 20 RF: 0 prednisone 20 MG tablet 60 mg PO DAILY Qty: 15 RF: 0 trazodone 50 MG tablet 50 mg PO QHS RF: 0 clonazepam 0.5 MG tablet 0.5 mg PO DAILY RF: 0 clopidogrel 75 MG tablet 75 mg PO DAILY RF: 0 azelastine 1 SPRAY aerosol,spray 1 spray NASAL DAILY RF: 0 albuterol sulfate 8.5 GM HFA aerosol inhaler 8.5 gm INHALATION DAILY RF: 0 topiramate 100 MG tablet 100 mg PO DAILY RF: 0 vilazodone 40 MG tablet RF: 0 alirocumab 75 MG/ML pen injector 75 mg SQ DAILY RF: 0 cariprazine 1.5 MG capsule 1.5 mg PO DAILY RF: 0 Primary Care Provider: Lida Cool Referrals: Lida Cool, [Primary Care Provider] - 3-5 Days if not improving Disposition Disposition: Home, Self Care
[2021-03-09] MEDS: Mag Hydrox/Al Hydrox/Simeth 30 ML UDC PO (02:18)
[2021-03-09 02:39] LABS: Anion Gap 2 (5-15); BUN 11 mg/dL (7-18); BUN/Creat Ratio 10.6 RATIO (10-20); Calcium,Total 8.5 mg/dL (8.5-10.1); Chloride 113 mmol/L (98-107); Creatinine, Serum 1.04 mg/dL (0.55-1.02); EST Glomerular Filtration Rate 59 mL/min (>60); Est Glom Filt Rate - Afr Amer 71 mL/min (>60); Estimated Creatinine Clearance 60.83 ml/min; Glucose 128 mg/dL (74-106); Potassium 3.9 mmol/L (3.5-5.1); Sodium Level 141 mmol/L (136-145); Troponin-I HS 6 pg/mL (3.0-54.0)
[2021-03-09 02:53] LABS: Absolute Neutrophil Count 3.1 X10^3/uL (2.0-7.7); Basophil# 0.04 X10^3/uL; Basophil% 0.6 % (0-1); Eosinophil# 0.21 X10^3/uL; Eosinophils% 3.3 % (0-5); Hematocrit 44.5 % (37-47); Lymphocyte % 39.1 % (19-41); Mean Corp Hgb Conc 31.5 g/dL (32-36); Mean Corpuscular Hgb 28.6 pg (27.0-32.0); Mean Corpuscular Volume 90.8 fL (81-99); Mean Platelet Vol. 9.6 fl (6.2-12.0); Monocyte# 0.51 X10^3/uL; NRBC Flagged by Analyzer 0 % (0-5); Neutrophil # 3.11 X10^3/uL (2.7-7.7); Neutrophil % 48.7 % (47-70); Platelet Count 213 K/mm3 (150-450); RBC Distribution Width CV 13.6 % (11.6-14.6); RBC Distribution Width SD 45.5 fl (35.1-43.9); White Blood Count 6.4 K/mm3 (4.4-11.0)
[2021-03-09 04:05] VITALS: BP 108/77; PULSE 63; RESP 19; O2SAT 93
[2021-03-09 04:12] LABS: Troponin-I HS 5 pg/mL (3.0-54.0)
--- NOTE | 2021-03-09 04:34 | ED.RN ---
pt did decline the nitro,stated she would wait for the results.
[2021-03-09 04:35] VITALS: BP 111/67; PULSE 65; RESP 15; O2SAT 95
== END 2021-03-09 04:35 | disposition home or self-care (01) ==
PROVIDERS: Emergency Provider Emergency Medicine; PCP Internal Medicine
DX: R07.89 Other chest pain (principal); F17.210 Nicotine dependence, cigarettes, uncomplicated; I25.10 Atherosclerotic heart disease of native coronary artery without angina pectoris; Z86.16 Personal history of COVID-19
CPT/HCPCS: 71045; 80048; 84484; 85025; 93005; 99285; A4216

== ENCOUNTER → 2021-03-22 09:17 | Outpatient (CLI) | payer OTHER, SELFPAY ==
[2021-03-22 10:33] LABS: Cholesterol 166 mg/dL (200); High Density Lipoprotein 82 mg/dL; Thyroid Stim Hormone (TSH) 1.75 uIU/mL (0.358-3.74); Triglycerides 76 mg/dL; Very Low Density Lipoprotein 15 mg/dL (5-40)
== END ==
PROVIDERS: PCP Internal Medicine; Visit Provider Internal Medicine
DX: I25.10 Atherosclerotic heart disease of native coronary artery without angina pectoris (principal)
CPT/HCPCS: 36415; 80061; 84443

== ENCOUNTER → 2021-03-24 12:23 | Outpatient (CLI) | payer OTHER, SELFPAY ==
--- NOTE | 2021-03-24 12:25 | BI_ITS ---
MAMMOGRAPHY - BILATERAL SCREENING 3-D TOMOSYNTHESIS REASON FOR EXAM: Female, 55 years old. SCREENING PERTINENT HISTORY: No significant family history. TECHNIQUE: 2-D mammograms and 3-D Tomosynthesis of the breast (s) were performed. CAD was performed. COMPARISON: 11/29/2019 FINDINGS: The breast composition is composed of scattered fibroglandular density. Scattered benign calcifications are seen. No dense spiculated masses or suspicious microcalcifications are identified. No architectural distortion is identified. There is no skin thickening or retraction. There has been no significant change since the prior study. BI/SCRN MAMM (CAD)W/ARCHIE BILAT IMPRESSION: No mammographic signs of malignancy. Routine yearly mammograms recommended. ASSESSMENT CATEGORY: BIRADS Category 1: Negative. A letter regarding these results will be sent to the patient by the facility within 30 days. FOLLOW UP RECOMMENDATION: Yearly follow up mammogram recommended. (A) Approximately 10% of breast cancers are not detected by mammography. A normal mammogram should not delay biopsy of a clinically suspicious abnormality. Electronically Signed: Gera Ramirez MD at 14:42 EST , Service support ,
== END ==
PROVIDERS: PCP Internal Medicine; Referring Provider Internal Medicine; Visit Provider Internal Medicine
DX: Z12.31 Encounter for screening mammogram for malignant neoplasm of breast (principal)
CPT/HCPCS: 77063; 77067

== ENCOUNTER 2021-04-20 09:43 | Emergency (ER) | payer OTHER, SELFPAY ==
[2021-04-20 09:44] VITALS: BP 134/92; PULSE 71; RESP 16; TEMP 35.1; O2SAT 97; BMI 25.8
--- NOTE | 2021-04-20 09:55 | RAD_ITS ---
STUDY: X-RAY - LEFT ANKLE REASON FOR EXAM: Female, 55 years old. Injury/Pain TECHNIQUE: 4 view(s) of the ankle. COMPARISON: None. FINDINGS: Normal visualized distal tibia and fibula. Normal medial and lateral malleoli. Normal tibiotalar articulation and ankle mortise. Normal visualized talus. Small calcaneal spurs The visualized subtalar, talonavicular, calcaneocuboid and tarsal articulations are normal. The soft tissue structures are unremarkable. RAD/Ankle min 3 Views IMPRESSION: Calcaneal spurs, no demonstrated fracture or suspicious osseous lesion Electronically Signed: Gera Ramirez MD at 10:16 EST , Service support ,
--- NOTE | 2021-04-20 10:00 | ED.VIS.LOWEX ---
HPI History of Present Illness Chief Complaint: Lower Extremity Injury Informant: patient Occured/Mechanism Mechanism/Context: Yes fall Comment: Fall off of a folding chair Onset/Context/Timing Onset: Today Context: Sudden Onset Timing: Continuous Quality of Pain: Burning Location: Left ankle Worsened by: Weightbearing Relieved by: Nothing Associated Symptoms Associated Symptoms: Negative for Parasthesia, Weakness and Loss of Funtion Narrative Narrative: Patient presents with injury to her left ankle that occurred today. Patient states she was standing on a folding chair while she was decorating her [place] tree. Patient states she fell off of the chair and inverted her left ankle. Patient states her pain is burning. Patient states her pain radiates up the anterior aspect of her left lower leg. Patient states her pain is worse with any weightbearing. Patient denies any paresthesias or weakness. Patient denies any head injury or loss of consciousness. Patient denies any pain over the proximal fibula or fifth metatarsal. [facility] Medical History CAD (coronary artery disease) COPD (chronic obstructive pulmonary disease) Home Medications doxycycline monohydrate 100 mg PO BID #20 cap 06/25/20 [Rx Last Taken Unknown] prednisone 60 mg PO DAILY #15 tab 06/25/20 [Rx Last Taken Unknown] albuterol sulfate 8.5 gm INHALATION DAILY 07/05/20 [History Last Taken Unknown] alirocumab 75 mg SQ DAILY 07/05/20 [History Last Taken Unknown] azelastine 1 spray NASAL DAILY 07/05/20 [History Last Taken Unknown] cariprazine 1.5 mg PO DAILY 07/05/20 [History Last Taken Unknown] clonazepam 0.5 mg PO DAILY 07/05/20 [History Last Taken Unknown] clopidogrel 75 mg PO DAILY 07/05/20 [History Last Taken Unknown] topiramate 100 mg PO DAILY 07/05/20 [History Last Taken Unknown] trazodone 50 mg PO QHS 07/05/20 [History Last Taken Unknown] vilazodone 07/05/20 [History Last Taken Unknown] Allergy/AdvReac Type Severity Reaction Status Date / Time aspirin [ASA] Allergy Other Verified 04/20/21 09:44 budesonide [From Symbicort] Allergy Anaphylaxis Verified 04/20/21 09:44 formoterol [From Symbicort] Allergy Anaphylaxis Verified 04/20/21 09:44 latex Allergy Hives Verified 04/20/21 09:44 Penicillins [PCN] Allergy Hives Verified 04/20/21 09:44 tape Allergy Hives Uncoded 04/20/21 09:44 Surgical History H/O: hysterectomy History of cholecystectomy History of heart artery stent Hx of tonsillectomy Social History Smoking Status: Current every day smoker tobacco type: cigarettes ROS ROS ED Constitutional Constitutional ED: Denies chills or fever(s) Eyes Eyes: Denies blurry vision or change in vision ENT ENT ED: Reports rhinorrhea; Denies sore throat Cardiovascular Cardiovascular: Denies chest pain or palpitations Respiratory/Chest Respiratory/Chest: Denies cough or dyspnea Gastrointestinal Gastrointestinal: Denies nausea or vomiting Genitourinary Genitourinary ED: Denies dysuria or hematuria Musculoskeletal Musculoskeletal: Denies back pain or neck pain Integumentary Denies abscess or rash Neurologic Neurologic: Denies headache(s) or weakness Allergic/Immunologic Allergic/Immunologic ED: Denies mouth swelling or urticaria EXAM Physical Exam Const Vital Signs: 04/20/21 09:44 Temperature 95.1 F L Temperature Source Temporal Pulse Rate 71 Respiratory Rate 16 Blood Pressure 134/92 H Blood Pressure Mean 106 Pulse Ox 97 Oxygen Delivery Method Room Air Positive well nourished and well developed General Appearance ED: well developed HEENT Reports moist mucous membranes Neck full ROM Extremity Extremity Narrative: There is tenderness over the medial and lateral malleoli. There is minimal edema. There is no ecchymosis. There is no bony crepitance or step-off. There is no tenderness over the proximal fibula. There is no tenderness over the fifth metatarsal. Range of motion was limited in all motions of the left ankle secondary to pain. There is good pedal pulse noted. Sensation was intact to light touch in all digits. Capillary refill was less than 2 seconds in all digits. Neuro oriented x3, CN's II-XII intact bilaterally, moves all extremities and no sensory deficits noted Sensorium / Orientation: alert Motor Exam: strength 5/5 throughout Psych mental status grossly normal MDM MDM MDM Narrative Medical decision making narrative: X-rays of the left ankle were obtained. There are 3 views. On my interpretation, there is no acute fracture. There is no dislocation. There is no soft tissue swelling. There are calcaneal spurs noted. Radiologist also interpreted the x-rays and agrees. Patient was given an Aircast. Patient was instructed to ice and elevate the left ankle. Patient was instructed to take Tylenol or ibuprofen as needed for pain. Patient was instructed use crutches as needed to help with weightbearing. Patient was instructed to follow-up with her primary care physician in 5 to 7 days. Patient understood and was agreeable with the plan. All questions were answered. Radiography Diagnostic Testing: Clinical Impression(s) from Imaging Studies Ankle X-Ray 04/20/21 09:55 IMPRESSION: Calcaneal spurs, no demonstrated fracture or suspicious osseous lesion Electronically Signed: Gera Ramirez MD at 10:16 EST , Service support , Discharge Plan Triage Chief Complaint: Lower Extremity Injury ED Provider: Shelton Sandoval Dx/Rx/DC Orders Clinical Impression: Left ankle sprain Instructions: ED Ankle Sprain (Adult) Prescriptions: No Action doxycycline monohydrate 100 MG capsule 100 mg PO BID Qty: 20 RF: 0 prednisone 20 MG tablet 60 mg PO DAILY Qty: 15 RF: 0 trazodone 50 MG tablet 50 mg PO QHS RF: 0 clonazepam 0.5 MG tablet 0.5 mg PO DAILY RF: 0 clopidogrel 75 MG tablet 75 mg PO DAILY RF: 0 azelastine 1 SPRAY aerosol,spray 1 spray NASAL DAILY RF: 0 albuterol sulfate 8.5 GM HFA aerosol inhaler 8.5 gm INHALATION DAILY RF: 0 topiramate 100 MG tablet 100 mg PO DAILY RF: 0 vilazodone 40 MG tablet RF: 0 alirocumab 75 MG/ML pen injector 75 mg SQ DAILY RF: 0 cariprazine 1.5 MG capsule 1.5 mg PO DAILY RF: 0 Primary Care Provider: Lida Cool Referrals: Lida Cool DO [Primary Care Provider] - 5-7 Days Disposition Disposition: Home, Self Care
== END 2021-04-20 10:50 | disposition home or self-care (01) ==
PROVIDERS: Emergency Provider Emergency Medicine; PCP Internal Medicine
DX: S93.402A Sprain of unspecified ligament of left ankle, initial encounter (principal); I25.10 Atherosclerotic heart disease of native coronary artery without angina pectoris; F17.210 Nicotine dependence, cigarettes, uncomplicated; J44.9 Chronic obstructive pulmonary disease, unspecified; Z79.51 Long term (current) use of inhaled steroids; Z79.899 Other long term (current) drug therapy; W07.XXXA Fall from chair, initial encounter
CPT/HCPCS: 73610; 99283

== ENCOUNTER 2021-10-08 16:22 | Emergency (ER) | payer OTHER, SELFPAY ==
[2021-10-08] VITALS (8 sets, daily range): BP systolic 121–152; BP diastolic 74–95; PULSE 57–75; RESP 14–20; TEMP 36.9; O2SAT 95–98; BMI 27.5
--- NOTE | 2021-10-08 16:42 | EKG12_ITS ---
Test Reason : CP Blood Pressure : / mmHG Vent. Rate : 065 BPM Atrial Rate : 065 BPM P-R Int : 176 ms QRS Dur : 090 ms QT Int : 402 ms P-R-T Axes : 058 060 070 degrees QTc Int : 418 ms Normal sinus rhythm Nonspecific ST and T wave abnormality Abnormal ECG Confirmed by DORI SHEEHAN, GERRI ([id number]), editor dictionary JANEL CHEN ([id number]) on 10/13/2021 7:37:13 AM Referred By: MARV Confirmed By:GERRI MEADOWS MD
--- NOTE | 2021-10-08 16:44 | EDS_ITS ---
HPI History of Present Illness Chief Complaint: Chest Pain Narrative Narrative: Patient presents with chest pressure and cold sweats that she has had for the last few hours. 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 She felt mildly lightheaded. She ate something which did not relieve her symptoms. She began having chest pressure and cold sweats. She denies any nausea or vomiting. No shortness of breath. No fevers or chills, no cough. Of note, she states 4-1/2 years ago she had stents placed in her heart. Her senior cytogenetic technologist is Dr. Murray. She has not had a stress test since then. She denies any leg swelling. She does take Plavix because she is allergic to aspirin. While this feels different because she was very short of breath and thought she had bronchitis when she had her stents placed, she is concerned about the continuing chest pressure that she is having. She denies any PE risk factors. No leg swelling. [facility] Medical History CAD (coronary artery disease) COPD (chronic obstructive pulmonary disease) Home Medications albuterol sulfate 8.5 gm INHALATION DAILY 07/05/20 [History Last Taken Unknown] cariprazine 1.5 mg PO DAILY 07/05/20 [History Last Taken Unknown] clonazepam 0.5 mg PO BID 07/05/20 [History Last Taken Unknown] clopidogrel 75 mg PO DAILY 07/05/20 [History Last Taken Unknown] topiramate 200 mg PO DAILY 07/05/20 [History Last Taken Unknown] trazodone 300 mg PO QHS 07/05/20 [History Last Taken Unknown] carbamazepine 800 mg PO DAILY 10/08/21 [History Last Taken Unknown] cetirizine [Allergy Relief (cetirizine)] 25 mg PO DAILY PRN 10/08/21 [History Last Taken Unknown] melatonin 20 mg PO QHS 10/08/21 [History Last Taken Unknown] vilazodone [Viibryd] 40 mg PO DAILY 10/08/21 [History Last Taken Unknown] Allergy/AdvReac Type Severity Reaction Status Date / Time aspirin [ASA] Allergy Other Verified 10/08/21 16:25 budesonide [From Symbicort] Allergy Anaphylaxis Verified 10/08/21 16:25 formoterol [From Symbicort] Allergy Anaphylaxis Verified 10/08/21 16:25 latex Allergy Hives Verified 10/08/21 16:25 Penicillins [PCN] Allergy Hives Verified 10/08/21 16:25 tape Allergy Hives Uncoded 10/08/21 16:33 Surgical History H/O: hysterectomy History of cholecystectomy History of heart artery stent Hx of tonsillectomy Social History Smoking Status: Current every day smoker tobacco type: cigarettes ROS ROS ED ROS Narrative Constitutional: No fever, no chills. Cold sweats. HEENT: No sore throat. No neck pain. No loss of vision. No rhinorrhea. Cardiovascular: Positive chest pain and pressure. No palpitations. No pedal edema. Respiratory: No cough, no shortness of breath. Abdominal: No abdominal pain. No nausea. No vomiting. Genitourinary: No dysuria. No hematuria. Musculoskeletal: No myalgias. No arthralgias. Neurologic: No headaches. No dizziness. No lightheadedness. Skin: No rash. No change in color. Psychiatric: No depression. No anxiety. EXAM Physical Exam Narrative Exam Narrative: Afebrile. Vital signs noted. HEENT: Normocephalic. Atraumatic. PERRL, EOMI. Neck soft and supple. No point tenderness or step off. Cardiovascular: Regular rate and rhythm. No murmurs, rubs, or gallops appreciated. Respiratory: No tachypnea. Lungs clear to auscultation bilaterally. Gastrointestinal: Abdomen soft, nontender, with normoactive bowel sounds. No rebound or guarding. Neurological: Awake. Alert. Nonfocal, nonlateralizing. Skin: No rash. Normal color. No pallor. Musculoskeletal: No pedal edema. Full range of motion extremities. Const Vital Signs: 10/08/21 16:23 10/08/21 16:32 10/08/21 16:42 Temperature 98.4 F Temperature Source Oral Pulse Rate 68 Respiratory Rate 17 Respiratory Effort Normal Blood Pressure 152/85 H Blood Pressure Mean 107 Pulse Ox 98 Oxygen Delivery Method Room Air Room Air 10/08/21 16:58 10/08/21 17:06 10/08/21 17:10 Temperature Temperature Source Pulse Rate 68 73 75 Respiratory Rate 15 Respiratory Effort Blood Pressure 134/94 H 124/93 H 124/91 H Blood Pressure Mean 102 Pulse Ox 95 Oxygen Delivery Method Room Air 10/08/21 17:17 10/08/21 18:02 10/08/21 19:00 Temperature Temperature Source Pulse Rate 69 59 L 57 L Respiratory Rate 16 20 H Respiratory Effort Blood Pressure 134/95 H 121/74 H 134/75 H Blood Pressure Mean 89 94 Pulse Ox 98 97 Oxygen Delivery Method Room Air Room Air 10/08/21 20:00 Temperature Temperature Source Pulse Rate 61 Respiratory Rate 14 Respiratory Effort Blood Pressure 126/74 H Blood Pressure Mean 91 Pulse Ox 96 Oxygen Delivery Method Room Air Heart Score History: Slightly/Non-Suspicious ECG: Normal Age: >45 - <65 years Risk Factors: >/= 3 Risk Factors or History of CAD Troponin: </= Normal Limit Score: 3 MDM MDM MDM Narrative Medical decision making narrative: Chest pain work-up was pursued. She has an elevated blood pressure of 152/85. She will be administered her Plavix and nitroglycerin. EKG demonstrates normal sinus rhythm at 65 bpm without ectopy or acute ST changes. No STEMI. No significant change from previous. CBC is agustín sly normal with a normal white count, hemoglobin normal at 13.4, hematocrit 41.5. Normal platelet count of 195. Potassium slightly low at 3.2 which can be replaced orally. Creatinine slightly elevated at 1.05. Initial high- sensitivity troponin normal at 4. 2-hour rule out was performed and is normal at 3. Chest x-ray interpreted by myself shows no evidence of an acute process, no infiltrate or pneumothorax. At this point in time, I feel she can be discharged safely home with follow-up. Smoking cessation was discussed. She will call her senior cytogenetic technologist tomorrow. Return instructions were reviewed. Disposition is discharged home in stable condition. Lab Data Labs: Laboratory Results - last 24 hr 10/08/21 10/08/21 10/08/21 16:30 16:30 19:13 WBC 5.3 RBC 4.50 Hgb 13.4 Hct 41.5 MCV 92.2 MCH 29.8 MCHC 32.3 RDW Std Deviation 47.3 H RDW Coeff of Benigno 13.9 Plt Count 195 MPV 9.4 Immature Gran % (Auto) 0.600 Neut % (Auto) 66.5 Lymph % (Auto) 24.5 [place] % (Auto) 6.7 Eos % (Auto) 1.3 Baso % (Auto) 0.4 Absolute Neuts (auto) 3.6 Absolute Lymphs (auto) 1.31 Nucleated RBC % 0 Sodium 142 Potassium 3.2 L Chloride 111 H Carbon Dioxide 24.0 Anion Gap 7 BUN 8 Creatinine 1.05 H Estim Creat Clear Calc 59.56 Est GFR (MDRD) Af Amer 70 Est GFR (MDRD) Non-Af 58 L BUN/Creatinine Ratio 7.6 L Glucose 114 H Calcium 8.5 Troponin I High Sens 4 3 Radiography Diagnostic Testing: Clinical Impression(s) from Imaging Studies Chest X-Ray 10/08/21 16:55 IMPRESSION: 1. No evidence of acute cardiopulmonary process Electronically Signed: Niranjan Mohr MD at 17:28 EDT Reading Location ID and State: [facility] / [place] Tel , Service support , Discharge Plan Triage Chief Complaint: Chest Pain ED Provider: Bautista Peters Dx/Rx/DC Orders Clinical Impression: Chest pain, History of coronary artery disease Instructions: ED Chest Pain, Uncertain Cause Prescriptions: No Action trazodone 50 MG tablet 300 mg PO QHS RF: 0 clonazepam 0.5 MG tablet 0.5 mg PO BID RF: 0 clopidogrel 75 MG tablet 75 mg PO DAILY RF: 0 albuterol sulfate 8.5 GM HFA aerosol inhaler 8.5 gm INHALATION DAILY RF: 0 topiramate 100 MG tablet 200 mg PO DAILY RF: 0 cariprazine 1.5 MG capsule 1.5 mg PO DAILY RF: 0 cetirizine [Allergy Relief (cetirizine)] 10 mg Tablet 25 mg PO DAILY PRN (Reason: allergies) RF: 0 carbamazepine 400 mg Tablet Extended Release 12 Hr 800 mg PO DAILY RF: 0 vilazodone [Viibryd] 40 mg Tablet 40 mg PO DAILY RF: 0 melatonin 10 mg Tablet 20 mg PO QHS RF: 0 Primary Care Provider: Lida Cool Referrals: Lida Cool DO [Primary Care Provider] - 5-7 Days Activity Restrictions/Additional Instructions: Your cardiac enzymes were negative twice today. Follow-up with your senior cytogenetic technologist, Dr. Murray as soon as possible. Call the office tomorrow. Disposition Disposition: Home, Self Care
--- NOTE | 2021-10-08 16:55 | RAD_ITS ---
INDICATION: chest pain EXAMINATION/TECHNIQUE: X-RAY - XR Chest 1 View COMPARISON: 03/09/2021 FINDINGS: LIFE-SUPPORT AND LINES: 1. None HEART AND VESSELS: The cardiac silhouette, pulmonary vasculature have normal appearance. No evidence of congestive failure. LUNGS AND PLEURAL SPACES: Lungs are clear. No focal infiltrate, consolidation or effusions. No evidence of pneumothorax. No pulmonary mass is noted. MEDIASTINUM AND HILAR REGIONS: No masses adenopathy noted. No areas of calcification. Visualized upper airway is normal in position. BONY ELEMENTS: No acute bony changes noted. RAD/Chest 1 View (Portable) IMPRESSION: 1. No evidence of acute cardiopulmonary process Electronically Signed: Niranjan Mohr MD at 17:28 EDT ,
[2021-10-08] MEDS: Clopidogrel Bisulfate 75 MG Tablet PO (16:57)
[2021-10-08] MEDS: Nitroglycerin SL (ED/IMG/CATH) 0.4 MG TABLET SL ×3 (16:58→17:17)
[2021-10-08] MEDS: Acetaminophen 325 MG Tablet 650 MG PO (17:06)
[2021-10-08 17:16] LABS: Absolute Lymphocyte Count 1.31 X10^3/uL (0.83-4.51); Absolute Neutrophil Count 3.6 X10^3/uL (2.0-7.7); Basophil# 0.02 X10^3/uL; Basophil% 0.4 % (0-1); Eosinophil# 0.07 X10^3/uL; Eosinophils% 1.3 % (0-5); Hematocrit 41.5 % (37-47); Hemoglobin 13.4 g/dL (12.0-15.0); Lymphocyte # 1.31 X10^3/ul (0.83-4.51); Lymphocyte % 24.5 % (19-41); Mean Corp Hgb Conc 32.3 g/dL (32-36); Mean Corpuscular Hgb 29.8 pg (27.0-32.0); Mean Corpuscular Volume 92.2 fL (81-99); Mean Platelet Vol. 9.4 fl (6.2-12.0); Monocyte# 0.36 X10^3/uL; Monocyte% 6.7 % (0-10); NRBC Flagged by Analyzer 0 % (0-5); Neutrophil # 3.55 X10^3/uL (2.7-7.7); Neutrophil % 66.5 % (47-70); Platelet Count 195 K/mm3 (150-450); RBC Distribution Width CV 13.9 % (11.6-14.6); RBC Distribution Width SD 47.3 fl (35.1-43.9); White Blood Count 5.3 K/mm3 (4.4-11.0)
[2021-10-08 17:24] LABS: Anion Gap 7 (5-15); BUN 8 mg/dL (7-18); BUN/Creat Ratio 7.6 RATIO (10-20); Calcium,Total 8.5 mg/dL (8.5-10.1); Chloride 111 mmol/L (98-107); Creatinine, Serum 1.05 mg/dL (0.55-1.02); EST Glomerular Filtration Rate 58 mL/min (>60); Est Glom Filt Rate - Afr Amer 70 mL/min (>60); Estimated Creatinine Clearance 59.56 ml/min; Glucose 114 mg/dL (74-106); Potassium 3.2 mmol/L (3.5-5.1); Sodium Level 142 mmol/L (136-145); Troponin-I HS (w/2H Reflex) 4 pg/mL (3.0-54.0)
[2021-10-08] MEDS: Potassium Chloride Oral Tablet 20 MEQ 40 MEQ PO (17:56)
[2021-10-08 18:59] LABS: Reflex Troponin-HS? (from REC) Y
[2021-10-08 20:21] LABS: Troponin-I HS 3 pg/mL (3.0-54.0)
== END 2021-10-08 20:42 | disposition home or self-care (01) ==
PROVIDERS: Emergency Provider Emergency Medicine; PCP Internal Medicine; Visit Provider Emergency Medicine
DX: R07.9 Chest pain, unspecified (principal); J44.9 Chronic obstructive pulmonary disease, unspecified; I25.10 Atherosclerotic heart disease of native coronary artery without angina pectoris; F17.210 Nicotine dependence, cigarettes, uncomplicated; Z79.899 Other long term (current) drug therapy; Z79.01 Long term (current) use of anticoagulants
CPT/HCPCS: 71045; 80048; 84484; 85025; 93005; 99284; A4216

== ENCOUNTER → 2022-03-25 | Outpatient (CLI) | payer OTHER, SELFPAY ==
[2022-03-25 06:41] LABS: Bacteria 0 SEEN /hpf (None Seen); Mucous, Urine 0 SEEN /hpf (<or=2+); Red Blood Cells-Urine 0 SEEN /hpf (0-5); Squamous Epithelial Cells - UA 0 SEEN /hpf (5-10); White Blood Cells 0 SEEN /hpf (0-5)
[2022-03-25 06:51] LABS: Absolute Lymphocyte Count 1.18 X10^3/uL (0.83-4.51); Absolute Neutrophil Count 3.3 X10^3/uL (2.0-7.7); Basophil# 0.03 X10^3/uL; Basophil% 0.6 % (0-1); Eosinophil# 0.14 X10^3/uL; Eosinophils% 2.8 % (0-5); Hematocrit 46.5 % (37-47); Hemoglobin 14.6 g/dL (12.0-15.0); Lymphocyte # 1.18 X10^3/ul (0.83-4.51); Lymphocyte % 23.3 % (19-41); Mean Corp Hgb Conc 31.4 g/dL (32-36); Mean Corpuscular Hgb 29.5 pg (27.0-32.0); Mean Corpuscular Volume 93.9 fL (81-99); Mean Platelet Vol. 8.8 fl (6.2-12.0); Monocyte# 0.37 X10^3/uL; Monocyte% 7.3 % (0-10); NRBC Flagged by Analyzer 0 % (0-5); Neutrophil # 3.32 X10^3/uL (2.7-7.7); Neutrophil % 65.6 % (47-70); Platelet Count 215 K/mm3 (150-450); RBC Distribution Width CV 13.6 % (11.6-14.6); RBC Distribution Width SD 46.6 fl (35.1-43.9); Red Blood Count 4.95 M/mm3 (4.2-5.4); White Blood Count 5.1 K/mm3 (4.4-11.0)
[2022-03-25 07:31] LABS: ALB/GLOB Ratio 1.2 RATIO (0.9-2.4); AST(SGOT) 22 U/L (15-37); Alanine Aminotransfer ALT/SGPT 38 U/L (13-56); Albumin, Serum 3.7 g/dL (3.2-5.0); Alkaline Phosphatase 94 U/L (45-117); Anion Gap 6 (5-15); BUN 10 mg/dL (7-18); BUN/Creat Ratio 8.8 RATIO (10-20); Calcium,Total 8.7 mg/dL (8.5-10.1); Chloride 110 mmol/L (98-107); Cholesterol 244 mg/dL (200); Creatinine, Serum 1.13 mg/dL (0.55-1.02); EST Glomerular Filtration Rate 53 mL/min (>60); Est Glom Filt Rate - Afr Amer 64 mL/min (>60); Globulin 3.1 g/dL (2.2-4.2); Glucose 100 mg/dL (74-106); High Density Lipoprotein 69 mg/dL; Protein, Total 6.8 g/dL (6.4-8.2); Sodium Level 140 mmol/L (136-145); Thyroid Stim Hormone (TSH) 1.95 uIU/mL (0.358-3.74); Triglycerides 122 mg/dL; Very Low Density Lipoprotein 24 mg/dL (5-40)
[2022-03-25 08:15] LABS: Microalbumin,Random Urine 5.8 mg/L (NO RANGE EST.); Microalbumin:Creatinine Ratio 8.8 mg/g CRE (<30 mg/g CRE)
[2022-03-25 08:59] LABS: Color, Urine Yellow (Yellow); Glucose, Dipstick Normal (Normal); Ketone-Dipstick Negative (Negative); Leukocyte Esterase-Dipstick Negative /ul (Negative); Nitrite-Dipstick Negative (Negative); Occult Blood-Urine Negative /ul (Negative); Protein-Dipstick Negative (Negative); Urine Bilirubin Dipstick Negative (Negative); Urine Clarity Sl. Cloudy (Clear); Urine Urobilinogen Normal (Normal)
--- NOTE | 2022-03-25 12:51 | BI_ITS ---
MAMMOGRAPHY - BILATERAL SCREENING REASON FOR EXAM: Female, 56 years old. Routine annual screening examination. PERTINENT HISTORY: Non-contributory. TECHNIQUE: Digital bilateral breast archie (3D mammographic acquisition) in the CC and MLO projections. 2-D mediolateral oblique (MLO) and craniocaudad (CC) views of both breasts were obtained. CAD: Full Field Digital Mammography with Computer Added Detection was performed. COMPARISON: Mammogram from 03/24/2021, 11/29/2019. FINDINGS: Breast Composition: The breasts are heterogeneously dense, which may obscure small masses. There are no dominant masses or suspicious calcifications. Stable small benign-appearing bilateral axillary lymph nodes. No other significant abnormalities are identified. There has been no significant change since the prior study. BI/SCRN MAMM (CAD)W/ARCHIE BILAT IMPRESSION: Stable bilateral screening mammogram. Yearly follow-up mammogram recommended. (A) ASSESSMENT CATEGORY: BIRADS Category 2: Benign. A letter regarding these results will be sent to the patient by the facility within 30 days. Approximately 10% of breast cancers are not detected by mammography. A normal mammogram should not delay biopsy of a clinically suspicious abnormality. Electronically Signed: Juan Sutton, at 16:07 EST ,
== END | disposition home or self-care (01) ==
LOC: OPBI 12:50
PROVIDERS: PCP Internal Medicine; Referring Provider Internal Medicine; Visit Provider Internal Medicine
DX: Z12.31 Encounter for screening mammogram for malignant neoplasm of breast (principal); I25.10 Atherosclerotic heart disease of native coronary artery without angina pectoris; E78.5 Hyperlipidemia, unspecified
CPT/HCPCS: 36415; 77063; 77067; 80053; 80061; 81001; 82043; 82570; 84443; 85025

== ENCOUNTER 2022-06-02 05:07 | Observation (INO) | payer OTHER, BC, SELFPAY ==
[2022-06-02 05:09] VITALS: BP 97/61; PULSE 60; RESP 16; TEMP 36.1; O2SAT 96; BMI 27.1
--- NOTE | 2022-06-02 05:20 | EKG12_ITS ---
Test Reason : CP Blood Pressure : / mmHG Vent. Rate : 060 BPM Atrial Rate : 060 BPM P-R Int : 160 ms QRS Dur : 084 ms QT Int : 424 ms P-R-T Axes : 066 078 079 degrees QTc Int : 424 ms Normal sinus rhythm Normal ECG Confirmed by DORI SHEEHAN, GERRI ([id number]), editorial cartoonist JANEL CHEN ([id number]) on 06/04/2022 10:12:50 AM Referred By: PL Confirmed By:GERRI MEADOWS MD
--- NOTE | 2022-06-02 05:20 | RAD_ITS ---
STUDY: X-RAY CHEST REASON FOR EXAM: Female, 56 years old. chest pain TECHNIQUE: Single AP portable view of the chest. COMPARISON: October 08, 2021. FINDINGS: No focal infiltrates or effusions. No pneumothorax. Normal size heart. Normal mediastinum and saloni. Normal visualized pulmonary arteries. Normal visualized aortic arch and descending thoracic aorta. Normal visualized thoracic spine. Normal visualized ribs, clavicles, and shoulders. There is no demonstrated abnormality of the visualized soft tissue structures of the upper abdomen. RAD/Chest 1 View (Portable) IMPRESSION: Normal x-ray examination of the chest. Electronically Signed: Avila Rae MD at 6:16 EST Reading Location ID and State: [id number] / , Service support ,
--- NOTE | 2022-06-02 05:24 | EDS_ITS ---
HPI History of Present Illness Chief Complaint: Chest Pain Informant: patient and spouse/S.O. Narrative Narrative: Patient had an episode of chest heaviness this morning. She describes it as somebody sitting on her chest. It is better now. It sounds like she did get a little nauseated but did not vomit. She did get a very hot feeling possibly a little diaphoretic. She was a little bit short of breath with it. This reminds her of symptoms she had before with heart disease. She has had stents in the past. She just had stenting of her circumflex 2 weeks ago at [facility]. I reviewed papers from [facility] that the patient brought with her. These give some detail to her heart catheterization. Patient had prior stenting of mid right RCA that had some 60% in-stent restenosis. She had prior stenting of the proximal LAD that had 40% in-stent restenosis. She had a new lesion in the mid circumflex that was an 85% blockage that was reduced to less than 5% with stenting. Patient is on and is taking her Plavix and aspirin as well as her statin and metoprolol. She does have family history of heart disease. She has not been sick and is generally been doing well since her heart cath. [facility] Medical History (Updated 06/02/22 @ 06:[address] Keyur Palmer MD) Anxiety and depression CAD (coronary artery disease) COPD (chronic obstructive pulmonary disease) HLD (hyperlipidemia) HTN (hypertension) Tobacco abuse Home Medications albuterol sulfate 90 mcg/actuation aerosol inhaler 8.5 gm inhalation DAILY 07/05/20 [History Last Taken Unknown] cariprazine 1.5 mg capsule 1.5 mg PO DAILY 07/05/20 [History Last Taken Unknown] clopidogrel 75 mg tablet 75 mg PO DAILY 07/05/20 [History Last Taken Unknown] trazodone 50 mg tablet 400 mg PO QHS 07/05/20 [History Last Taken Unknown] melatonin 10 mg tablet 20 mg PO QHS 10/08/21 [History Last Taken Unknown] vilazodone 40 mg tablet (Viibryd) 40 mg PO DAILY 10/08/21 [History Last Taken Unknown] aspirin 81 mg tablet,delayed release 81 mg PO DAILY 06/02/22 [History Last Taken Unknown] bupropion HCl 150 mg tablet,12 hr sustained-release (Wellbutrin SR) 150 mg PO DAILY 06/02/22 [History Last Taken Unknown] carbamazepine 200 mg tablet (Tegretol) 200 mg PO BID 06/02/22 [History Last Taken Unknown] cariprazine 1.5 mg capsule (Vraylar) 1.5 mg PO DAILY 06/02/22 [History Last Taken Unknown] clonazepam 0.5 mg tablet 0.5 mg PO BID 06/02/22 [History Last Taken Unknown] isosorbide mononitrate 30 mg tablet,extended release 24 hr 30 mg PO DAILY [History Last Taken Unknown] losartan 25 mg tablet 25 mg PO DAILY 06/02/22 [History Last Taken Unknown] pantoprazole 20 mg tablet,delayed release 20 mg PO DAILY 06/02/22 [History Last Taken Unknown] topiramate 100 mg tablet (Topamax) 100 mg PO BID 06/02/22 [History Last Taken Unknown] Allergy/AdvReac Type Severity Reaction Status Date / Time adhesive tape Allergy Hives Verified 06/02/22 05:13 aspirin [ASA] Allergy Other Verified 06/02/22 05:13 budesonide [From Symbicort] Allergy Anaphylaxis Verified 06/02/22 05:13 formoterol [From Symbicort] Allergy Anaphylaxis Verified 06/02/22 05:13 latex Allergy Hives Verified 06/02/22 05:13 Penicillins [PCN] Allergy Hives Verified 06/02/22 05:13 Surgical History H/O: hysterectomy History of cholecystectomy History of heart artery stent Hx of tonsillectomy Social History household members: spouse Smoking Status: Current every day smoker tobacco type: cigarettes substance use type: does not use ROS ROS ED Constitutional Constitutional ED: Denies chills or fever(s) Eyes Eyes: Denies change in vision ENT ENT ED: Denies rhinorrhea or sore throat Cardiovascular Cardiovascular: Reports as per HPI Respiratory/Chest Respiratory/Chest: Reports dyspnea; Denies cough Gastrointestinal Gastrointestinal: Reports nausea; Denies vomiting Musculoskeletal Musculoskeletal: Denies back pain or neck pain Integumentary Denies rash Neurologic Neurologic: Denies headache(s) or paresthesias Psychiatric Psychiatric: Reports anxiety Endocrine Endocrinology: Denies polydipsia or polyuria Hematologic/Lymphatic Hematologic/Lymphatic: Reports easy bleeding and easy bruising Allergic/Immunologic Allergic/Immunologic ED: Denies urticaria EXAM Physical Exam Narrative Exam Narrative: Patient is awake alert no acute distress sitting in bed at this time. She carries on normal conversation. HEENT shows no rash or tenderness. Mucous membranes are moist. No diaphoresis. Eyes Free range of motion Neck shows no JVD. No tenderness. No subcu air. Chest is clear. She can take good deep breaths without any pain or discomfort. Heart is regular with a rate of about 60. No murmur gallop or rub is noted. No chest wall tenderness. Peripheral pulses are good. Abdomen is soft nontender and normal bowel sounds. No CVA or suprapubic tenderness Extremities show no edema cords tenderness or asymmetry. Patient is alert oriented and appropriate Skin shows no diaphoresis or rash. Const Vital Signs: 06/02/22 05:09 Temperature 96.9 F L Temperature Source Temporal Pulse Rate 60 Respiratory Rate 16 Blood Pressure 97/61 Blood Pressure Mean 73 Pulse Ox 96 Oxygen Delivery Method Room Air MDM MDM MDM Narrative Medical decision making narrative: My independent interpretation of the patient's single AP chest x-ray shows no acute process. No pneumothorax. No infiltrate. No abnormal mediastinum. Fin al reading by radiology shows normal x-ray examination of the chest. CBC electrolytes are normal. Glucose is minimally up at 131. Troponin is quite normal at 5. This patient symptoms are resolved. The EKG showed no acute process but she was not having symptoms when this was done. Her work-up so far is negative. However, she has significant heart disease just had stenting done and had the sa pr symptoms as prior to the stents. I called and directly discussed these issues with our full decator operator, Dr. Shine. He recommend that we do bring her in the hospital. She will have enzymes cycled and likely stress test to look further. I then discussed the case with hospitalist who is seeing her in the emergency department. Lab Data Attestation: I reviewed the patient's lab results. Labs: Laboratory Results - last 24 hr 06/02/22 06/02/22 05:30 05:30 WBC 4.5 RBC 4.42 Hgb 13.2 Hct 40.0 MCV 90.5 MCH 29.9 MCHC 33.0 RDW Std Deviation 44.7 H RDW Coeff of Benigno 13.5 Plt Count 168 MPV 8.9 Immature Gran % (Auto) 0.200 Neut % (Auto) 54.4 Lymph % (Auto) 35.0 [place] % (Auto) 6.8 Eos % (Auto) 2.9 Baso % (Auto) 0.7 Absolute Neuts (auto) 2.5 Absolute Lymphs (auto) 1.59 Nucleated RBC % 0 Sodium 140 Potassium 3.5 Chloride 112 H Carbon Dioxide 21.0 Anion Gap 7 BUN 12 Creatinine 0.89 Estim Creat Clear Calc 70.27 Est GFR (MDRD) Af Amer 85 Est GFR (MDRD) Non-Af 70 BUN/Creatinine Ratio 13.5 Glucose 131 H Calcium 8.4 L Troponin I High Sens 5 EKG Initial EKG: Comments: My independent interpretation of EKG done for chest pain shows a sinus rhythm with overall rate of 60. No ventricular ectopy. No acute ST elevation or depression. NH interval, QRS duration and QTc are normal. This was compared with prior EKG from 08 October 2021 and shows no marked interval change. Discharge Plan Triage Chief Complaint: Chest Pain ED Provider: Keyur Palmer Dx/Rx/DC Orders Clinical Impression: Chest pain, History of CAD (coronary artery disease), Bradycardia, sinus Prescriptions: No Action trazodone 50 MG tablet 400 mg PO QHS clopidogrel 75 MG tablet 75 mg PO DAILY albuterol sulfate 8.5 GM HFA aerosol inhaler 8.5 gm INHALATION DAILY Label Comments: INHALE 2 PUFFS BY MOUTH EVERY 6 HOURS NEEDED cariprazine 1.5 MG capsule 1.5 mg PO DAILY vilazodone [Viibryd] 40 mg Tablet 40 mg PO DAILY melatonin 10 mg Tablet 20 mg PO QHS bupropion HCl [Wellbutrin SR] 150 mg Tablet Sustained-Release 12 Hr 150 mg PO DAILY isosorbide mononitrate 30 mg Tablet Extended Release 24 Hr 30 mg PO DAILY clonazepam 0.5 mg Tablet 0.5 mg PO BID pantoprazole 20 mg Tablet,Delayed Release (Dr/Ec) 20 mg PO DAILY carbamazepine [Tegretol] 200 mg Tablet 200 mg PO BID losartan 25 mg Tablet 25 mg PO DAILY topiramate [Topamax] 100 mg Tablet 100 mg PO BID Vraylar 1.5 mg Capsule 1.5 mg PO DAILY aspirin [Aspir-81] 81 mg Tablet,Delayed Release (Dr/Ec) 81 mg PO DAILY Primary Care Provider: Lida Cool Referrals: Lida Cool DO [Primary Care Provider] - Disposition Disposition: Acute Care Hospital [facility]
[2022-06-02 05:39] LABS: Absolute Lymphocyte Count 1.59 X10^3/uL (0.83-4.51); Absolute Neutrophil Count 2.5 X10^3/uL (2.0-7.7); Basophil# 0.03 X10^3/uL; Basophil% 0.7 % (0-1); Eosinophil# 0.13 X10^3/uL; Eosinophils% 2.9 % (0-5); Hemoglobin 13.2 g/dL (12.0-15.0); Lymphocyte # 1.59 X10^3/ul (0.83-4.51); Mean Corpuscular Hgb 29.9 pg (27.0-32.0); Mean Corpuscular Volume 90.5 fL (81-99); Mean Platelet Vol. 8.9 fl (6.2-12.0); Monocyte# 0.31 X10^3/uL; Monocyte% 6.8 % (0-10); NRBC Flagged by Analyzer 0 % (0-5); Neutrophil # 2.47 X10^3/uL (2.7-7.7); Neutrophil % 54.4 % (47-70); Platelet Count 168 K/mm3 (150-450); RBC Distribution Width CV 13.5 % (11.6-14.6); RBC Distribution Width SD 44.7 fl (35.1-43.9); Red Blood Count 4.42 M/mm3 (4.2-5.4); White Blood Count 4.5 K/mm3 (4.4-11.0)
[2022-06-02 06:10] LABS: Anion Gap 7 (5-15); BUN 12 mg/dL (7-18); BUN/Creat Ratio 13.5 RATIO (10-20); Calcium,Total 8.4 mg/dL (8.5-10.1); Chloride 112 mmol/L (98-107); Creatinine, Serum 0.89 mg/dL (0.55-1.02); EST Glomerular Filtration Rate 70 mL/min (>60); Est Glom Filt Rate - Afr Amer 85 mL/min (>60); Estimated Creatinine Clearance 70.27 ml/min; Glucose 131 mg/dL (74-106); Potassium 3.5 mmol/L (3.5-5.1); Sodium Level 140 mmol/L (136-145); Troponin-I HS (w/2H Reflex) 5 pg/mL (3.0-54.0)
[2022-06-02 06:21] VITALS: BP 92/56; PULSE 56; RESP 18; TEMP 36.4; O2SAT 94
[2022-06-02 06:26] VITALS: PULSE 58
--- NOTE | 2022-06-02 06:52 | NURSING ---
PCU OBS CP WHITE
--- NOTE | 2022-06-02 06:58 | HP.PCM.HOS_ITS ---
HPI - General General Date of Admission: 06/02/22 Date of Service: 06/02/22 Chief Complaint: Chest pain HPI Narrative The patient is a 56 y/o F w/ PMHx: Tobacco use, COPD, CAD s/p PCI, HTN, HLD, Anxiety and Depression/Bipolar disorder who presents to the [facility] ED on 06/02/22 with history of this a.m. prior to ED presentation at ~ 4:45 am awakening her from sleep onset anterior chest heaviness, rated 10/10 in severity, describing as someone actually sitting on her chest with associated nausea without emesis and diaphoresis with mild dyspnea which was similar to what she had prior when she was evaluated for PCI with history of recent PCI of her circumflex 2 weeks prior to current presentation at [facility] prompting ED eval uation. She did self administer NG prior to arrival and her chest pain has currently resolved. She notes her mother had PCI and 2-3 days following had a massive HI which is why she came in and because the discomfort was severe. Patient has had prior stenting of the mid RCA with noted 60% in-stent restenosis as well as prior stenting of proximal LAD with 40% in-stent restenosis and a new lesion most recently in the mid circumflex that was 85% stenosed that was reduced to less than 5% following stenting. She states she has been taking her aspirin, Plavix as well as statin and metoprolol. She remains chest pain free currently. Work-up in the ED included T96.9, heart rate 60, BP 97/61, respira tory rate 16, 96% on room air, CBC with WC 4.5, hemoglobin 13.2, platelet 168 without marked shift, BMP with chloride 112, glucose 131, calcium 8.4 not otherwise not marked appearing, troponin 5, chest x-ray with no acute cardiopulmonary findings, EKG with sinus rhythm with no acute evidence of isch emia similar to last EKG performed. [facility] Medical History Anxiety and depression CAD (coronary artery disease) COPD (chronic obstructive pulmonary disease) HLD (hyperlipidemia) HTN (hypertension) Tobacco abuse Home Medications albuterol sulfate 90 mcg/actuation aerosol inhaler 8.5 gm inhalation DAILY 07/05/20 [History Last Taken Unknown] cariprazine 1.5 mg capsule 1.5 mg PO DAILY 07/05/20 [History Last Taken Unknown] clopidogrel 75 mg tablet 75 mg PO DAILY 07/05/20 [History Last Taken Unknown] trazodone 50 mg tablet 400 mg PO QHS 07/05/20 [History Last Taken Unknown] melatonin 10 mg tablet 20 mg PO QHS 10/08/21 [History Last Taken Unknown] vilazodone 40 mg tablet (Viibryd) 40 mg PO DAILY 10/08/21 [History Last Taken Unknown] aspirin 81 mg tablet,delayed release 81 mg PO DAILY 06/02/22 [History Last Taken Unknown] bupropion HCl 150 mg tablet,12 hr sustained-release (Wellbutrin SR) 150 mg PO DAILY 06/02/22 [History Last Taken Unknown] carbamazepine 200 mg tablet (Tegretol) 200 mg PO BID 06/02/22 [History Last Taken Unknown] cariprazine 1.5 mg capsule (Vraylar) 1.5 mg PO DAILY 06/02/22 [History Last Taken Unknown] clonazepam 0.5 mg tablet 0.5 mg PO BID 06/02/22 [History Last Taken Unknown] isosorbide mononitrate 30 mg tablet,extended release 24 hr 30 mg PO DAILY 06/02/22 [History Last Taken Unknown] losartan 25 mg tablet 25 mg PO DAILY 06/02/22 [History Last Taken Unknown] pantoprazole 20 mg tablet,delayed release 20 mg PO DAILY 06/02/22 [History Last Taken Unknown] topiramate 100 mg tablet (Topamax) 100 mg PO BID 06/02/22 [History Last Taken Unknown] Allergy/AdvReac Type Severity Reaction Status Date / Time adhesive tape Allergy Hives Verified 06/02/22 05:13 aspirin [ASA] Allergy Other Verified 06/02/22 05:13 budesonide [From Symbicort] Allergy Anaphylaxis Verified 06/02/22 05:13 formoterol [From Symbicort] Allergy Anaphylaxis Verified 06/02/22 05:13 latex Allergy Hives Verified 06/02/22 05:13 Penicillins [PCN] Allergy Hives Verified 06/02/22 05:13 Family History Mother CAD (coronary artery disease) Heart disease Hypertension Myocardial infarction Father CAD (coronary artery disease) CVA (cerebral vascular accident) Heart disease Hypertension Surgical History H/O: hysterectomy History of cholecystectomy History of heart artery stent Hx of tonsillectomy Social History (Updated 06/02/22 @ 06:[address] Carmen Frias MD) household members: spouse Smoking Status: Current every day smoker tobacco type: cigarettes Smoking packs per day: 0.5 Smoking cigarettes per day: 10.0 alcohol intake: never substance use type: does not use ROS ROS Narrative Admission Review of Systems: CONSTITUTIONAL: No weight loss, fever, chills, + weakness or fatigue. HEENT: Eyes: No visual loss, blurred vision, double vision or yellow sclerae. Ears, Nose, Throat: No hearing loss, sneezing, congestion, runny nose or sore throat. SKIN: No rash or itching, lesions, wounds. CARDIOVASCULAR: + chest pain, chest pressure or chest discomfort, No palpitations, edema, orthopnea, syncopal events. RESPIRATORY: + shortness of breath, No cough or sputum, wheezing, hemoptysis. GASTROINTESTINAL: + anorexia, nausea, No vomiting or diarrhea, abdominal pain, melena, BRBPR. GENITOURINARY: No dysuria, frequency, urgency or retention. NEUROLOGICAL: No headache, dizziness, syncope, paralysis, ataxia, numbness or tingling in the extremities, focal weakness, change in bowel or bladder control, seizure. MUSCULOSKELETAL: + muscle, back pain, joint pain or stiffness. HEMATOLOGIC: No anemia, bleeding or bruising. LYMPHATICS: No enlarged nodes. No history of splenectomy. PSYCHIATRIC: + history of depression or anxiety. ENDOCRINOLOGIC: + reports of sweating. No cold or heat intolerance. No polyuria or polydipsia. ALLERGIES: + history of asthma, hives, rhinitis. Vital Signs Vital Signs Vital Signs: 06/02/22 05:09 06/02/22 06:21 06/02/22 06:26 Temperature 96.9 F L 97.6 F L Temperature Source Temporal Temporal Pulse Rate 60 56 L 58 L Respiratory Rate 16 18 Blood Pressure 97/61 92/56 L Blood Pressure Mean 73 68 Pulse Ox 96 94 Oxygen Delivery Method Room Air Room Air Weight Weight: 173 lb 8.061 oz Body Mass Index (BMI) 27.1 Physical Exam Narrative Physical Examination: General: Awake, alert, oriented x 3 and cooperative, seated upright in the ED bed in no apparent distress, notes chest pain free currently. Skin: Normal color, normal turgor, no icterus, no cyanosis. HEENT: AT/NC, EOMI, PERRLA, MMM, no carotid bruits or JVD noted. Lungs: CTA bilaterally, moderate effort, mild decrease BL bases, no rales, ronchi or wheezing. Heart: Currently mildly bradycardic with regular rhythm; no gallop, rub audible. Abdomen: Soft, overweight, NTTP, ND, distant normal BS, no HSM. Extremities: No cyanosis, clubbing, or edema. Neurological: Patient awake, alert, oriented as noted, cognitive function intact; pupils equally reactive to light and accommodation, cranial nerves II- XII grossly normal, moving all 4 extremities, no focal deficits, strength improved, mildly global decreased secondary to acute recent events. Psychiatric: Affect appears fatigued otherwise normal, no acute evidence of depressive or anxiety feelings but does have notable history. Results Lab / Micro Data Result Diagrams: 06/02/22 05:30 06/02/22 05:30 Labs: Laboratory Results - last 24 hr 06/02/22 05:30: WBC 4.5, RBC 4.42, Hgb 13.2, Hct 40.0, MCV 90.5, MCH 29.9, MCHC 33.0, RDW Std Deviation 44.7 H, RDW Coeff of Benigno 13.5, Plt Count 168, MPV 8.9, Immature Gran % (Auto) 0.200, Neut % (Auto) 54.4, Lymph % (Auto) 35.0, [place] % (Auto) 6.8, Eos % (Auto) 2.9, Baso % (Auto) 0.7, Absolute Neuts (auto) 2.5, Absolute Lymphs (auto) 1.59, Nucleated RBC % 0 06/02/22 05:30: Sodium 140, Potassium 3.5, Chloride 112 H, Carbon Dioxide 21.0, Anion Gap 7, BUN 12, Creatinine 0.89, Estim Creat Clear Calc 70.27, Est GFR (MDRD) Af Amer 85, Est GFR (MDRD) Non-Af 70, BUN/Creatinine Ratio 13.5, Glucose 131 H, Calcium 8.4 L, Troponin I High Sens 5 Radiology Impression Chest X-Ray 06/02/22 05:20 IMPRESSION: Normal x-ray examination of the chest. Electronically Signed: Avila Rae MD at 6:16 EST Reading Location ID and State: [id number] / , Service support , Assessment & Plan Assessment/Plan (1) Chest pain: PLAN: Plan The patient is a 56 y/o F w/ PMHx: Tobacco use, COPD, CAD s/p PCI, HTN, HLD, Anxiety and Depression/Bipolar disorder who presents to the [facility] ED on 06/02/22 wi th history of this a.m. prior to ED presentation at ~ 4:45 am awakening her from sleep onset anterior chest heaviness, rated 10/10 in severity, describing as someone actually sitting on her chest with associated nausea without emesis and diaphoresis with mild dyspnea which was similar to what she had prior when she was evaluated for PCI with history of recent PCI of her circumflex 2 weeks prior to current presentation at [facility] prompting ED evaluation. #1. Chest Pain s/p recent PCI ~2 weeks prior: EKG in ED with sinus rhythm with no acute evidence of ischemia, CXR w/ no acute cardiopulmonary finding, initial troponin 5. Will admit to PCU, place on a monitored bed to assure no acute myocardial infarction with serial cardiac enzymes and EKGs. If repeat serial cardiac enzymes and EKGs remain unremarkable will pursue a.m. cardiac stress testing per cardiology recommendation. FLP in AM. Magnesium level requested. Cardiology consulted and discussed case with ED physician therefore will continue as they noted if any concerns arise they may need to recatheterized. #2. Hyperglycemia, mild: Admission glucose 131, possibly stress response, hemoglobin A1c requested to be cautious. #3. CAD: Status post prior PCI, most recently approximately 2 weeks prior, will continue aspirin, Plavix, statin, temporally holding patient beta-gregg therapy and losartan given hypotension likely from NG self administration, add back once appropriate. #4. Chronic COPD: Not on chronic inhalers, may add if necessary otherwise in the interim PRN albuterol, HOB, IS parameters. #5. Hypertension: BP currently low, likely secondary to recent self NG administration, will temporarily hold patient home losartan and metoprolol therapy, add back once appropriate. #6. Hyperlipidemia: Continue statin, FLP requested. #7. Tobacco Abuse: Encouraged cessation, inpatient consultation per RT, NR if desired. #8. Anxiety and depression/bipolar disorder: We will continue patient home significant psychiatric regimen. #9. DVT prophylaxis: SCDs, Lovenox. Admission Evaluation Time spent evaluating chart, patient history, patient evaluation, care planning and discussion with specialists: 55 minutes. Charges/Coding Visit Charges Inpatient E&M: 88377 Init Hosp L2
--- NOTE | 2022-06-02 07:29 | EKG12_ITS ---
Test Reason : ADMISSION Blood Pressure : / mmHG Vent. Rate : 058 BPM Atrial Rate : 058 BPM P-R Int : 180 ms QRS Dur : 084 ms QT Int : 428 ms P-R-T Axes : 052 056 071 degrees QTc Int : 420 ms Sinus bradycardia Otherwise normal ECG When compared with ECG of 02-JUN-2022 05:09, MANUAL COMPARISON REQUIRED, DATA IS UNCONFIRMED Confirmed by LEILANI SHEEHAN, MONA ([id number]), deputy editor in chief JANEL CHEN ([id number]) on 06/05/2022 9:06:08 AM Referred By: Confirmed By:NATA DUKE MD
[2022-06-02 07:36] VITALS: BP 103/79; PULSE 58; RESP 16; TEMP 36.6; O2SAT 95; BMI 26.9
[2022-06-02 07:36] LABS: Reflex Troponin-HS? (from REC) Y
[2022-06-02 07:52] LABS: Hemoglobin A1c 5.1 % (3.8-5.6)
[2022-06-02] MEDS: 0.9% Normal Saline 1,000 ML 100 ML IV (08:26)
[2022-06-02] MEDS: 0.9% Saline Lock 10 ML Syringe IV (08:27)
[2022-06-02 08:29] LABS: Troponin-I HS 5 pg/mL (3.0-54.0)
--- NOTE | 2022-06-02 08:43 | PCM.CONS.C ---
Assessment & Plan Assessment/Plan (1) Chest pain: PLAN: The patient presents with chest discomfort at this time. It is not clear whether this is coronary in origin or not. Her cardiac enzymes are thus far negative. I would recommend that we obtain an exercise myocardial perfusion stress test and depending on the findings further recommendations will be made. (2) History of CAD (coronary artery disease): PLAN: She has a history of coronary artery disease status post multivessel PCI. I would recommend continuing the same therapy. Risk factor modification will be implemented and also depending on the results of the stress test further recommendations will be made. HPI Consult Data Date of Consult: 06/02/22 HPI Narrative HPI Narrative: ERIC SETHI, is a 56 F who presents to the emergency room complaining of substernal chest discomfort. She is a lady with a history of coronary artery disease status post recent PCI at [facility] involving the left circumflex artery. She also has a history of hypertension, hyperlipidemia, anxiety and depression with bipolar disorder. She had previously undergone coronary artery evaluation and had prior stenting of her mid right coronary artery as well as her proximal left anterior descending artery. Most recently she had a circumflex artery stent placed. She had been taking her medications as noted including aspirin, Plavix, Praluent and isosorbide. She said the chest discomfort was rather significant and she took a sublingual nitroglycerin presented to the emergency room here. Her EKG did not demonstrate any acute changes and her troponin level was noted to be 5. She is due to have a repeat. At this particular time she is pain-free. She denies any other cardiac symptomatology. Cardiology was called for further evaluation and management. [facility] Medical History Anxiety and depression Bipolar 1 disorder CAD (coronary artery disease) COPD (chronic obstructive pulmonary disease) GERD (gastroesophageal reflux disease) HLD (hyperlipidemia) HTN (hypertension) Tobacco abuse Home Medications albuterol sulfate 90 mcg/actuation aerosol inhaler 8.5 gm inhalation DAILY 07/05/20 [History Last Taken Unknown] clopidogrel 75 mg tablet 75 mg PO DAILY 07/05/20 [History Last Taken Unknown] trazodone 50 mg tablet 400 mg PO QHS 07/05/20 [History Last Taken Unknown] melatonin 10 mg tablet 20 mg PO QHS 10/08/21 [History Last Taken Unknown] vilazodone 40 mg tablet (Viibryd) 40 mg PO DAILY 10/08/21 [History Last Taken Unknown] alirocumab 75 mg/mL subcutaneous pen injector (Praluent Pen) 75 mg subcut Q14D 06/02/22 [History Last Taken Unknown] aspirin 81 mg tablet,delayed release 81 mg PO DAILY 06/02/22 [History Last Taken Unknown] bupropion HCl 150 mg tablet,12 hr sustained-release (Wellbutrin SR) 150 mg PO DAILY 06/02/22 [History Last Taken Unknown] carbamazepine 200 mg tablet (Tegretol) 200 mg PO BID 06/02/22 [History Last Taken Unknown] cariprazine 1.5 mg capsule (Vraylar) 1.5 mg PO DAILY 06/02/22 [History Last Taken Unknown] clonazepam 0.5 mg tablet 0.5 mg PO BID 06/02/22 [History Last Taken Unknown] isosorbide mononitrate 30 mg tablet,extended release 24 hr 30 mg PO DAILY 06/02/22 [History Last Taken Unknown] losartan 25 mg tablet 25 mg PO DAILY 06/02/22 [History Last Taken Unknown] pantoprazole 20 mg tablet,delayed release 20 mg PO DAILY 06/02/22 [History Last Taken Unknown] topiramate 100 mg tablet (Topamax) 100 mg PO BID 06/02/22 [History Last Taken Unknown] Allergy/AdvReac Type Severity Reaction Status Date / Time adhesive tape Allergy Hives Verified 06/02/22 05:13 aspirin [ASA] Allergy Other Verified 06/02/22 05:13 budesonide [From Symbicort] Allergy Anaphylaxis Verified 06/02/22 05:13 formoterol [From Symbicort] Allergy Anaphylaxis Verified 06/02/22 05:13 latex Allergy Hives Verified 06/02/22 05:13 Penicillins [PCN] Allergy Hives Verified 06/02/22 05:13 Family History Mother CAD (coronary artery disease) Heart disease Hypertension Myocardial infarction Father CAD (coronary artery disease) CVA (cerebral vascular accident) Heart disease Hypertension Surgical History H/O: hysterectomy History of cholecystectomy History of heart artery stent History of [place] fundoplication Hx of tonsillectomy Social History household members: spouse Smoking Status: Current every day smoker tobacco type: cigarettes alcohol intake: never substance use type: does not use ROS Constitutional Constitutional: Denies fever(s) or weight loss Eyes Eyes: Reports systems reviewed and no addt'l complaints, except as documented ENT HEENT: Reports systems reviewed and no addt'l complaints, except as documented Cardiovascular Cardiovascular: Reports chest pain at rest and dyspnea at rest; Denies chest pain with activity, dyspnea on exertion, edema, palpitations or paroxysmal nocturnal dyspnea Respiratory/Chest Respiratory/Chest: Denies dyspnea on exertion, productive cough, shortness of breath at rest or shortness of breath with exertion Gastrointestinal Gastrointestinal: Denies change in bowel habits, nausea, vomiting or weight changes Genitourinary Genitourinary: Denies difficulty urinating Musculoskeletal Musculoskeletal: Denies joint stiffness or muscle weakness Integumentary Integumentary: Denies lesions Neurologic Neurologic: Denies dizziness or syncope Psychiatric Psychiatric: Denies anxiety Endocrine Endocrinology: Denies excessive sweating or fatigue Hematologic/Lymphatic Hematologic/Lymphatic: Denies anemia Allergic/Immunologic Allergic/Immunologic: Denies seasonal rhinorrhea Physical Exam Const alert, oriented x3 and no apparent distress General Appearance: cooperative HEENT hearing grossly normal bilaterally Head and Scalp: atraumatic Eyes EOMs intact bilaterally Neck General: normal visual inspection Chest inspection of chest normal and palpation of chest normal Resp normal respiratory effort Auscultation: clear to auscultation bilaterally Cardio regular rate, regular rhythm, S1 normal heart sound and S2 normal heart sound Jugular Venous Distention: JVD GI normal to inspection, nondistended, normoactive bowel sounds Extremity normal capillary refill and no pedal edema Peripheral Pulses: Yes pulses 2+ throughout and femoral pulses present Skin no rashes or lesions noted Neuro oriented x3 and CN's II-XII intact bilaterally Psych Appearance: grossly normal and appropriate Risk Stratification Risk Stratification Applicable: No Objective Data Vital Signs: Vital Signs Temp Pulse Resp BP Pulse Ox O2 Del Method 97.9 F 58 L 16 103/79 95 Room Air 06/02/22 07:36 06/02/22 07:36 06/02/22 07:36 06/02/22 07:36 06/02/22 07:36 06/02/22 07:36 Oxygen Delivery Method Room Air Weight: 172 lb Body Mass Index (BMI) 26.9 Intake & Output: Intake and Output for Last 24 Hours 05/31/22 06/01/22 06/02/22 23:59 23:59 23:59 Intake Total 500 / 500 Balance 500 / 500 Lab / Micro Data Result Diagrams: 06/02/22 05:30 06/02/22 05:30 Labs: Laboratory Results - last 24 hr 06/02/22 05:30: WBC 4.5, RBC 4.42, Hgb 13.2, Hct 40.0, MCV 90.5, MCH 29.9, MCHC 33.0, RDW Std Deviation 44.7 H, RDW Coeff of Benigno 13.5, Plt Count 168, MPV 8.9, Immature Gran % (Auto) 0.200, Neut % (Auto) 54.4, Lymph % (Auto) 35.0, [place] % (Auto) 6.8, Eos % (Auto) 2.9, Baso % (Auto) 0.7, Absolute Neuts (auto) 2.5, Absolute Lymphs (auto) 1.59, Nucleated RBC % 0 06/02/22 05:30: Sodium 140, Potassium 3.5, Chloride 112 H, Carbon Dioxide 21.0, Anion Gap 7, BUN 12, Creatinine 0.89, Estim Creat Clear Calc 70.27, Est GFR (MDRD) Af Amer 85, Est GFR (MDRD) Non-Af 70, BUN/Creatinine Ratio 13.5, Glucose 131 H, Calcium 8.4 L, Troponin I High Sens 5 06/02/22 05:30: Magnesium 2.0 06/02/22 05:30: Hemoglobin A1c 5.1 06/02/22 08:06: Troponin I High Sens 5 Cardiology Labs/Tests 06/02/22 05:30: WBC 4.5, RBC 4.42, Hgb 13.2, Hct 40.0, MCV 90.5, MCH 29.9, MCHC 33.0, Plt Count 168, MPV 8.9, Immature Gran % (Auto) 0.200, Neut % (Auto) 54.4, Lymph % (Auto) 35.0, [place] % (Auto) 6.8, Eos % (Auto) 2.9, Baso % (Auto) 0.7, Absolute Neuts (auto) 2.5, Nucleated RBC % 0 06/02/22 05:30: Sodium 140, Potassium 3.5, Chloride 112 H, Carbon Dioxide 21.0, Anion Gap 7, BUN 12, Creatinine 0.89, Est GFR (MDRD) Af Amer 85, Est GFR (MDRD) Non-Af 70, BUN/Creatinine Ratio 13.5, Glucose 131 H, Calcium 8.4 L 06/02/22 05:30: Magnesium 2.0 06/02/22 05:30: Hemoglobin A1c 5.1 Rhythm: EKG: ECHO: Stress Test: Cardiac Cath: PCI: CT Surgery: Holter monitor: EPS: PPM: CXR: Chest CT Scan: Radiography Diagnostic Testing: Radiology Impression Chest X-Ray 06/02/22 05:20 IMPRESSION: Normal x-ray examination of the chest. Electronically Signed: Avila Rae MD at 6:16 EST Reading Location ID and State: [id number] / , Service support ,
--- NOTE | 2022-06-02 08:49 | ECHOD_ITS ---
Reason For Study: CHF Procedure This was a 2D Doppler, Color Flow transthoracic echocardiogram. Exam performed portable in patient room. Left Ventricle Normal LV size. Left ventricular systolic function is normal. The estimated ejection fraction is 60 %. No regional wall motion abnormalities noted. Right Ventricle Normal RV size. Normal systolic function. Atria Normal left atrium. Normal right atrium. Mitral Valve Normal mitral valve. Tricuspid Valve Normal tricuspid valve. Mild (1+) tricuspid valve insufficiency. Pulmonary artery systolic pressure is 28 mmHg. Aortic Valve Trisinus/trileaflet aortic valve. Pulmonic Valve Normal pulmonic valve. Great Vessels Normal aortic root. The pulmonary artery is normal size. Normal inferior vena cava. Pericardium/Pleural No pericardial effusion. MMode/2D Measurements & Calculations LVIDd: 4.8 cm IVSd: 1.1 cm Ao root diam: 3.4 cm LVIDs: 2.8 cm LVPWd: 1.0 cm FS: 42.1 % LAV(MOD-bp): 46.4 ml LVAd ap4: 24.3 cm2 SV(MOD-sp4): 42.5 ml LAV(MOD-bp) Indexed: 24.5 ml/m2 LVLd ap4: 7.5 cm LAV(MOD-sp2): 44.7 ml EDV(MOD-sp4): 65.7 ml LAV(MOD-sp4): 44.9 ml EDV(sp4-el): 66.3 ml LVAs ap4: 13.0 cm2 LVLs ap4: 6.2 cm ESV(MOD-sp4): 23.2 ml ESV(sp4-el): 23.1 ml EF(MOD-sp4): 64.7 % EF(sp4-el): 65.2 % SV(sp4-el): 43.2 ml LA A4 area: 16.3 cm2 LA dimension(2D): 3.6 cm RA A4 area: 9.6 cm2 Time Measurements MV dec time: 0.28 sec Doppler Measurements & Calculations MV E max rajendra: 80.7 cm/sec Lat Peak E' Rajendra: 12.1 cm/sec Med Peak E' Rajendra: 8.2 cm/sec MV A max rajendra: 77.6 cm/sec E/E' lat: 6.7 E/E' med: 9.9 MV E/A: 1.0 MV V2 max: 99.6 cm/sec Ao V2 max: 127.7 cm/sec MV max P.0 mmHg MV dec slope: 293.2 cm/sec2 Ao max P.5 mmHg MV V2 mean: 60.2 cm/sec Ao V2 mean: 85.7 cm/sec MV mean P.6 mmHg Ao mean P.4 mmHg MV V2 VTI: 37.9 cm Ao V2 VTI: 27.7 cm AV (velocity ratio): 0.94 LV V1 max: 123.0 cm/sec PA V2 max: 66.0 cm/sec TR max rajendra: 244.0 cm/sec LV V1 max P.1 mmHg PA V2 mean: 45.1 cm/sec TR max P.8 mmHg LV V1 mean P.2 mmHg LV V1 mean: 82.3 cm/sec LV V1 VTI: 26.1 cm ECHO/Echo Complete Interpretation Summary Normal LV size. Left ventricular systolic function is normal. The estimated ejection fraction is 60 %. Pulmonary artery systolic pressure is 28 mmHg. Ordering Physician: William Shine Referring Physician: Lida Cool M.D. Performed By: Love Dawson RCS
[2022-06-02 11:22] LABS: Troponin-I HS 4 pg/mL (3.0-54.0)
[2022-06-02] MEDS: Aspirin E.C. 81 MG Tablet PO (11:23)
[2022-06-02] MEDS: Pantoprazole Sodium 20 MG Tablet PO (11:23)
[2022-06-02] MEDS: Topiramate 100 MG Tablet PO (12:21)
[2022-06-02] MEDS: carBAMazepine 200 MG Tablet PO (12:22)
[2022-06-02] MEDS: clonazePAM 0.5 MG Tablet PO (12:22)
--- NOTE | 2022-06-02 15:46 | DCINST_ITS ---
Discharge Instructions Diet Discharge Diet: - (DASH diet) Activity Discharge Activity: Return to Normal Activity Follow Up Care Test Results: Test results from this visit will be discussed in further detail at your follow- up appointment, if applicable. Discharge Plan Admission Admit Date/Time: 06/02/22 06:37 Primary Reason for Your Visit: Chest pain Attending Provider: Rajwinder Lake Primary Care Provider: Lida Cool Consulting Providers: Carmen Frias ; William Shine Instructions Patient Instructions: DASH Plan Eat Heart Healthy Food Additional Instructions / Restrictions: DISCHARGE INSTRUCTIONS PLEASE READ *Please take this with you to your next doctors appointment* ?Would recommend decreasing melatonin to 10 mg as this is the maximum recommended dose ?Your blood pressure was low during this admission and your losartan and your isosorbide mononitrate have been held, there are several other medications that you take that may also contribute to low blood pressure and would suggest discussing with your prescribing physician regarding all other home medications ? Please follow-up with your current sap basis consultant upon discharge -Please call your primary care provider's office upon discharge to schedule a hospital follow up within 1 week. -For any concerning signs or symptoms please call 911 or proceed to the nearest emergency department Discharge Orders/Prescriptions Prescriptions: Continued trazodone 50 MG tablet 400 mg PO QHS clopidogrel 75 MG tablet 75 mg PO DAILY albuterol sulfate 8.5 GM HFA aerosol inhaler 8.5 gm INHALATION DAILY Label Comments: INHALE 2 PUFFS BY MOUTH EVERY 6 HOURS NEEDED vilazodone [Viibryd] 40 mg Tablet 40 mg PO DAILY bupropion HCl [Wellbutrin SR] 150 mg Tablet Sustained-Release 12 Hr 150 mg PO DAILY clonazepam 0.5 mg Tablet 0.5 mg PO BID pantoprazole 20 mg Tablet,Delayed Release (Dr/Ec) 20 mg PO DAILY carbamazepine [Tegretol] 200 mg Tablet 200 mg PO BID topiramate [Topamax] 100 mg Tablet 100 mg PO BID Vraylar 1.5 mg Capsule 1.5 mg PO DAILY aspirin 81 mg Tablet,Delayed Release (Dr/Ec) 81 mg PO DAILY Praluent Pen 75 mg/mL Pen Injector 75 mg SUBCUT Q14D Changed melatonin 10 mg Tablet 10 mg PO QHS Qty: 30 0RF Held isosorbide mononitrate 30 mg Tablet Extended Release 24 Hr 30 mg PO DAILY Hold Instructions: Resume on 06/10/22. With your sap basis consultant regarding when to resume losartan 25 mg Tablet 25 mg PO DAILY Hold Instructions: Resume on 06/10/22. With your sap basis consultant regarding when to resume Referrals / Follow Up: Lida Cool DO [Primary Care Provider] - Within 1 Week Disposition Disposition (needs filled in before D/C Order can be placed): Home, Self Care
[2022-06-02] MEDS: Clopidogrel Bisulfate 75 MG Tablet PO (15:49)
--- NOTE | 2022-06-02 16:23 | DS.PCM_ITS ---
Providers Date of Admission: 06/02/22 Date of Discharge: 06/02/22 Primary Care Physician: Dr. Lida Cool DO Consultations 06/02/22 07:29 Consult: Cardiology Routine Consulting Provider: William Shine Reason for Consult: Chest Pain, recent PCI EMERGENT Consult: No MD Notified: Yes Date Notified: 06/02/22 Time Notified: 06:39 Method of Notification: ED Physician Initiated Reason For Visit: CHEST PAIN, RECENT PCI Diagnosis Discharge Diagnosis (1) Chest pain: Status: Acute Code(s): R07.9 - Chest pain, unspecified (2) History of CAD (coronary artery disease): Status: Acute Code(s): Z86.79 - Personal history of other diseases of the circulatory system Plan #1.? Chest Pain s/p recent PCI ~2 weeks prior #2.? Hyperglycemia, mild #3.? CAD: Status post prior PCI, most recently approximately 2 weeks prior #4.? Chronic COPD #5.? Hypertension #6.? Hyperlipidemia #7.? Tobacco Abuse #8.? Anxiety and depression/bipolar disorder: Medications at Discharge Home Medications albuterol sulfate 90 mcg/actuation aerosol inhaler 8.5 gm inhalation DAILY breathing 07/05/20 clopidogrel 75 mg tablet 75 mg PO DAILY anti platelet 07/05/20 trazodone 50 mg tablet 400 mg PO QHS sleep 07/05/20 vilazodone 40 mg tablet (Viibryd) 40 mg PO DAILY mental health 10/08/21 alirocumab 75 mg/mL subcutaneous pen injector (Praluent Pen) 75 mg subcut Q14D cholesterol 06/02/22 aspirin 81 mg tablet,delayed release 81 mg PO DAILY heart health 06/02/22 bupropion HCl 150 mg tablet,12 hr sustained-release (Wellbutrin SR) 150 mg PO DAILY mental health 06/02/22 carbamazepine 200 mg tablet (Tegretol) 200 mg PO BID seizures 06/02/22 cariprazine 1.5 mg capsule (Vraylar) 1.5 mg PO DAILY mental health 06/02/22 clonazepam 0.5 mg tablet 0.5 mg PO BID anxiety 06/02/22 isosorbide mononitrate 30 mg tablet,extended release 24 hr 30 mg PO DAILY heart 06/02/22 losartan 25 mg tablet 25 mg PO DAILY blood pressure 06/02/22 melatonin 10 mg tablet 10 mg PO QHS #30 tabs 06/02/22 pantoprazole 20 mg tablet,delayed release 20 mg PO DAILY reflux 06/02/22 topiramate 100 mg tablet (Topamax) 100 mg PO BID seizures 06/02/22 Hospital Course Procedures - (stress test, echo) Summary of Care Provided Minutes Spent on Discharge: 25 Hospital Course: HPI THIS AM: The patient is a 56 y/o F w/ PMHx: Tobacco use, COPD, CAD s/p PCI, HTN, HLD, Anxiety and Depression/Bipolar disorder who presents to the [facility] ED on 06/02/22 with history of this a.m. prior to ED presentation at ~ 4:45 am awakening her from sleep onset anterior chest heaviness, rated 10/10 in severity, describing as someone actually sitting on her chest with associated nausea without emesis and diaphoresis with mild dyspnea which was similar to what she had prior when she was evaluated for PCI with history of recent PCI of her circumflex 2 weeks prior to current presentation at [facility] prompting ED evaluation. She did self administer NG prior to arrival and her chest pain has currently resolved. She notes her mother had PCI and 2-3 days following had a massive VT which is why she came in and because the discomfort was severe. Patient has had prior stenting of the mid RCA with noted 60% in- stent restenosis as well as prior stenting of proximal LAD with 40% in-stent restenosis and a new lesion most recently in the mid circumflex that was 85% stenosed that was reduced to less than 5% following stenting. She states she has been taking her aspirin, Plavix as well as statin and metoprolol. She remains chest pain free currently. Work-up in the ED included T96.9, heart rate 60, BP 97/61, respiratory rate 16, 96% on room air, CBC with WC 4.5, hemoglobin 13.2, platelet 168 without marked shift, BMP with chloride 112, glucose 131, calcium 8.4 not otherwise not marked appearing, troponin 5, chest x-ray with no acute cardiopulmonary findings, EKG with sinus rhythm with no acute evidence of ischemia similar to last EKG performed Interval history: Patient evaluated by cardiology and had echocardiogram which showed EF of 60% and normal left ventricular systolic function and a stress test was normal. Discussed with cardiology who are comfortable discharge for patient. Of note she did have borderline BPs while admitted likely due to polypharmacy, her lisinopril and isosorbide have been held. Counseled her on her multiple psychiatric medications and that these could contribute to her fatigue and not feeling well as she did queried why she was so tired all the time. No other complaints at that time. Discharge instructions as followed: ?Would recommend decreasing melatonin to 10 mg as this is the maximum recommended dose ?Your blood pressure was low during this admission and your losartan and your isosorbide mononitrate have been held, there are several other medications that you take that may also contribute to low blood pressure and would suggest discussing with your prescribing physician regarding all other home medications ? Please follow-up with your current bottoming room inspector upon discharge -Please call your primary care provider's office upon discharge to schedule a hospital follow up within 1 week. -For any concerning signs or symptoms please call 911 or proceed to the nearest emergency department Physical Exam Narrative General: Alert, oriented, no apparent distress HEENT: Atraumatic, normocephalic Eyes: Anicteric, normal conjunctiva, extraocular movements grossly intact Neck: Supple Respiratory: Clear to auscultation bilaterally, normal respiratory effort Cardiovascular: Regular rate and rhythm GI: Soft, nontender, nondistended Extremities: No edema Musculoskeletal: Moving all extremities Neuro: No overt focal neurological deficits Skin: No rashes appreciated Psych: Cooperative Weight / BMI Weight Weight: 78.018 kg Body Mass Index (BMI) 26.9 ABG / Lab / Microbiology Data Result Diagrams: 06/02/22 05:30 06/02/22 05:30 Laboratory: Laboratory Results - last 24 hr 06/02/22 05:30: WBC 4.5, RBC 4.42, Hgb 13.2, Hct 40.0, MCV 90.5, MCH 29.9, MCHC 33.0, RDW Std Deviation 44.7 H, RDW Coeff of Benigno 13.5, Plt Count 168, MPV 8.9, Immature Gran % (Auto) 0.200, Neut % (Auto) 54.4, Lymph % (Auto) 35.0, [place] % (Auto) 6.8, Eos % (Auto) 2.9, Baso % (Auto) 0.7, Absolute Neuts (auto) 2.5, Absolute Lymphs (auto) 1.59, Nucleated RBC % 0 06/02/22 05:30: Sodium 140, Potassium 3.5, Chloride 112 H, Carbon Dioxide 21.0, Anion Gap 7, BUN 12, Creatinine 0.89, Estim Creat Clear Calc 70.27, Est GFR (MDRD) Af Amer 85, Est GFR (MDRD) Non-Af 70, BUN/Creatinine Ratio 13.5, Glucose 131 H, Calcium 8.4 L, Troponin I High Sens 5 06/02/22 05:30: Magnesium 2.0 06/02/22 05:30: Hemoglobin A1c 5.1 06/02/22 08:06: Troponin I High Sens 5 06/02/22 11:00: Troponin I High Sens 4 Radiography Diagnostic Testing: Radiology Impression Chest X-Ray 06/02/22 05:20 IMPRESSION: Normal x-ray examination of the chest. Electronically Signed: Avila Rae MD at 6:16 EST Reading Location ID and State: [id number] / , Service support , Echocardiogram 06/02/22 08:49 Interpretation Summary Normal LV size. Left ventricular systolic function is normal. The estimated ejection fraction is 60 %. Pulmonary artery systolic pressure is 28 mmHg. Ordering Physician: William Shine Referring Physician: Lida Cool M.D. Performed By: Love Dawson RCS D/C Instructions Discharge Diet: - (DASH diet) Meaningful Use Info Meaningful Use Diagnoses (Choose all that apply): None applicable Discharge Plan Admission Admit Date/Time: 06/02/22 06:37 Primary Reason for Your Visit: Chest pain Attending Provider: Rajwinder Lake Primary Care Provider: Lida Cool Consulting Providers: Carmen Frias ; William Shine Instructions Patient Instructions: DASH Plan Eat Heart Healthy Food Additional Instructions / Restrictions: DISCHARGE INSTRUCTIONS PLEASE READ *Please take this with you to your next doctors appointment* ?Would recommend decreasing melatonin to 10 mg as this is the maximum recommended dose ?Your blood pressure was low during this admission and your losartan and your isosorbide mononitrate have been held, there are several other medications that you take that may also contribute to low blood pressure and would suggest discussing with your prescribing physician regarding all other home medications ? Please follow-up with your current bottoming room inspector upon discharge -Please call your primary care provider's office upon discharge to schedule a hospital follow up within 1 week. -For any concerning signs or symptoms please call 911 or proceed to the nearest emergency department Discharge Orders/Prescriptions Prescriptions: Continued trazodone 50 MG tablet 400 mg PO QHS clopidogrel 75 MG tablet 75 mg PO DAILY albuterol sulfate 8.5 GM HFA aerosol inhaler 8.5 gm INHALATION DAILY Label Comments: INHALE 2 PUFFS BY MOUTH EVERY 6 HOURS NEEDED vilazodone [Viibryd] 40 mg Tablet 40 mg PO DAILY bupropion HCl [Wellbutrin SR] 150 mg Tablet Sustained-Release 12 Hr 150 mg PO DAILY clonazepam 0.5 mg Tablet 0.5 mg PO BID pantoprazole 20 mg Tablet,Delayed Release (Dr/Ec) 20 mg PO DAILY carbamazepine [Tegretol] 200 mg Tablet 200 mg PO BID topiramate [Topamax] 100 mg Tablet 100 mg PO BID Vraylar 1.5 mg Capsule 1.5 mg PO DAILY aspirin 81 mg Tablet,Delayed Release (Dr/Ec) 81 mg PO DAILY Praluent Pen 75 mg/mL Pen Injector 75 mg SUBCUT Q14D Changed melatonin 10 mg Tablet 10 mg PO QHS Qty: 30 0RF Held isosorbide mononitrate 30 mg Tablet Extended Release 24 Hr 30 mg PO DAILY Hold Instructions: Resume on 06/10/22. With your bottoming room inspector regarding when to resume losartan 25 mg Tablet 25 mg PO DAILY Hold Instructions: Resume on 06/10/22. With your bottoming room inspector regarding when to resume Referrals / Follow Up: Lida Cool DO [Primary Care Provider] - Within 1 Week Disposition Disposition (needs filled in before D/C Order can be placed): Home, Self Care
--- NOTE | 2022-06-02 16:55 | STRESSREP ---
Stress Test Report Pharmacologic myocardial perfusion stress test. 56-year-old lady with a history of coronary artery disease and chest pain Resting EKG demonstrates sinus bradycardia with a rate of 57 bpm. Resting blood pressure is 100/70 mmHg. 0.4 mg of regadenoson was infused per usual protocol followed by rapid intravenous saline flush injection. Continuous EKG monitoring was performed. The maximum heart rate was 89 bpm which was 53 of max impacted heart rate the maximum workload was 1 metabolic equivalent. At rest there were no ST or T wave changes noted to suggest ischemia and at peak infusion nonspecific ST changes were noted which did not meet the criteria for ischemia. No clinical angina is noted. The final blood pressure was 124/72 mmHg. Myocardial perfusion protocol. 11.8 mCi of technetium 99m sestamibi was injected at rest. 0.4 mg of regadenoson was infused per usual protocol. At peak infusion 34.5 mCi of technetium 99m sestamibi was injected stress images were obtained stress and rest images were reconstructed and compared in the short axis vertical long and horizontal long axis. Gated images were also obtained. Perfusion SPECT analysis: Review of the stress images demonstrate normal uptake of tracer noted in all areas of the myocardium. The resting images similar demonstrated normal uptake of tracer noted in all areas of the myocardium. No areas of reversibility are noted to suggest ischemia and no previous infarct is noted. Gated SPECT analysis: The gated ejection fraction is 73%. Conclusion: Normal pharmacologic myocardial perfusion stress test. Preserved ejection fraction.
== END 2022-06-02 16:31 | disposition home or self-care (01) ==
LOC: ED 06:47 → PCU 06:53
PROVIDERS: Admitting Provider Family Medicine; Emergency Provider Emergency Medicine; PCP Internal Medicine; Visit Provider Internal Medicine
DX: R07.89 Other chest pain (principal); J44.9 Chronic obstructive pulmonary disease, unspecified; F31.9 Bipolar disorder, unspecified; E78.5 Hyperlipidemia, unspecified; F17.210 Nicotine dependence, cigarettes, uncomplicated; F41.9 Anxiety disorder, unspecified; I10 Essential (primary) hypertension; Z95.5 Presence of coronary angioplasty implant and graft; I25.10 Atherosclerotic heart disease of native coronary artery without angina pectoris; Z79.02 Long term (current) use of antithrombotics/antiplatelets; Z79.899 Other long term (current) drug therapy; Z79.82 Long term (current) use of aspirin; R11.0 Nausea; R06.00 Dyspnea, unspecified
CPT/HCPCS: 99284; 36415; 71045; 78452; 80048; 83036; 83735; 84484; 85025; 93005; 93017; 93306; 94668; 96360; 96361; 99221; 99252; A9500; J7030; J7040; A4216; G0378; G0463; J2785

== ENCOUNTER 2022-06-08 12:27 | Inpatient (IN) | payer OTHER, BC, SELFPAY ==
[2022-06-08] VITALS (10 sets, daily range): BP systolic 113–143; BP diastolic 61–120; PULSE 57–89; RESP 16–26; TEMP 36.2–36.7; O2SAT 96–99; BMI 27.3; BMI 27.7
--- NOTE | 2022-06-08 | MRI_ITS ---
We are attempting to reach an attending provider to discuss findings. An addendum with communication details will be sent when the communication is complete. INDICATION: confusion -- trouble with words EXAMINATION: MRI - MR Brain WO/W Contrast TECHNIQUE: Multiplanar and multisequence MR images of the brain were obtained without and with gadolinium. IV Contrast Dosage and Agent: None. COMPARISON: CT head 06/08/2022. FINDINGS: BRAIN AND EXTRA-AXIAL SPACES: T2 signal hyperintensity and edema in the splenium of the corpus callosum on T2-weighted imaging. There is mild restricted diffusion on DWI and ADC maps. There is no enhancement following the administration of contrast. Limited number of T2 signal hyperintense foci in the right frontoparietal subcortical white matter. No enhancement. Ventricles are normal in size. Basal cisterns are unremarkable. SELLA: Pituitary gland is normal in height. AUDITORY SYSTEM: Unremarkable. BONES/JOINTS: Unremarkable. SINUSES: Unremarkable as visualized. Clear. MASTOID AIR CELLS: Unremarkable as visualized. Clear. ORBITS: Unremarkable as visualized. VASCULATURE: Normal flow voids in the major intracranial circulation. 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 Differential considerations include demyelination, acute ischemia, high-grade glioma. Additional considerations include encephalitis or acute disseminated encephalomyelitis (ADEM), posterior reversible encephalopathy syndrome (PRES). Limited additional T2 signal hyperintensity are nonspecific and may be due to microvascular ischemia, demyelination, vasculitis. Electronically Signed: Jacqueline Banegas MD at 17:03 EST Reading Location ID and State: [id number] / Tel , Service support ,
--- NOTE | 2022-06-08 13:03 | EKG12_ITS ---
Test Reason : CONFUSION Blood Pressure : / mmHG Vent. Rate : 057 BPM Atrial Rate : 057 BPM P-R Int : 176 ms QRS Dur : 086 ms QT Int : 410 ms P-R-T Axes : 049 059 072 degrees QTc Int : 399 ms Sinus bradycardia Otherwise normal ECG Confirmed by DORI SHEEHAN, GERRI ([id number]), editor newspaper JANEL CHEN ([id number]) on 06/09/2022 8:56:27 AM Referred By: BUNNY Confirmed By:GERRI MEADOWS MD
--- NOTE | 2022-06-08 13:03 | CT_ITS ---
We are attempting to reach an attending provider to discuss findings. An addendum with communication details will be sent when the communication is complete. EXAM: CT HEAD WITHOUT INTRAVENOUS CONTRAST CLINICAL INDICATION: Neuro deficit, acute, stroke suspected TECHNIQUE: Multiple axial images were obtained of the head without intravenous contrast. This CT exam was performed using one or more of the following dose reduction techniques: automated exposure control, adjustment of the mA and/or kV according to patient size, and/or use of iterative reconstruction technique. This report was created using [employer] report [employer] technology. COMPARISON: None. FINDINGS: BRAIN AND EXTRA-AXIAL SPACES: Normal. No intra- or extra-axial hemorrhage. No evidence of acute infarct. No intracranial mass or mass effect. There is preservation of the hogan/white matter interface. Posterior fossa structures are unremarkable. Ventricles are appropriate for age. No hydrocephalus. Basal cisterns are patent. BONES/JOINTS: No suspicious lytic or blastic abnormality. SINUSES: Unremarkable as visualized. No acute sinusitis. MASTOID AIR CELLS: Normal. Clear. ORBITS: Visualized globes, extraocular muscles, optic nerves and retrobulbar fat appear unremarkable. CT/STROKE Brain/Head without Cont IMPRESSION: Normal CT brain without intravenous contrast. Aspect score 10 Electronically Signed: Garrett Green MD at 13:54 EST ,
[2022-06-08 13:12] LABS: Bacteria 0 SEEN /hpf (None Seen); Mucous, Urine 0 SEEN /hpf (<or=2+); Squamous Epithelial Cells - UA 0 SEEN /hpf (5-10); White Blood Cells 0 SEEN /hpf (0-5)
[2022-06-08 13:17] LABS: Absolute Lymphocyte Count 1.23 X10^3/uL (0.83-4.51); Absolute Neutrophil Count 3.5 X10^3/uL (2.0-7.7); Basophil# 0.02 X10^3/uL; Basophil% 0.4 % (0-1); Eosinophil# 0.11 X10^3/uL; Eosinophils% 2.1 % (0-5); Hematocrit 40.4 % (37-47); Hemoglobin 13.5 g/dL (12.0-15.0); Lymphocyte # 1.23 X10^3/ul (0.83-4.51); Lymphocyte % 23.5 % (19-41); Mean Corp Hgb Conc 33.4 g/dL (32-36); Mean Corpuscular Volume 89.8 fL (81-99); Monocyte# 0.35 X10^3/uL; Monocyte% 6.7 % (0-10); NRBC Flagged by Analyzer 0 % (0-5); Neutrophil # 3.51 X10^3/uL (2.7-7.7); Neutrophil % 67.1 % (47-70); Platelet Count 172 K/mm3 (150-450); RBC Distribution Width CV 13.4 % (11.6-14.6); RBC Distribution Width SD 43.7 fl (35.1-43.9); White Blood Count 5.2 K/mm3 (4.4-11.0)
[2022-06-08 13:20] LABS: Bedside Glucose 100 mg/dL (74-106)
[2022-06-08 13:21] LABS: Color, Urine Yellow (Yellow); Glucose, Dipstick Normal (Normal); Ketone-Dipstick Negative (Negative); Leukocyte Esterase-Dipstick Negative /ul (Negative); Nitrite-Dipstick Negative (Negative); Occult Blood-Urine 10 /ul (Negative); Protein-Dipstick Negative (Negative); Urine Bilirubin Dipstick Negative (Negative); Urine Clarity Sl. Cloudy (Clear); Urine Urobilinogen Normal (Normal)
[2022-06-08 13:23] LABS: International Normalized Ratio 1.1; Prothrombin Time (Protime)PT. 13.5 SECONDS (11.7-14.9)
[2022-06-08 13:24] LABS: Partial Thromboplast Time 27.6 Seconds (24.1-36.2)
[2022-06-08 13:27] LABS: Red Blood Cells-Urine 0-5 SEEN /hpf (0-5)
--- NOTE | 2022-06-08 13:30 | RAD_ITS ---
EXAM: XR CHEST, 1 VIEW CLINICAL INDICATION: Neuro deficit, acute, stroke suspected TECHNIQUE: Frontal view of the chest. This report was created using [employer] report generation technology. COMPARISON: XR Chest dated 06/02/2022 FINDINGS: LUNGS AND PLEURAL SPACES: Normal. No consolidation or edema. No pneumothorax. No effusion. HEART: Normal heart size. MEDIASTINUM: No mediastinal or hilar mass. BONES/JOINTS: No acute abnormality. SOFT TISSUES: Normal. RAD/Chest 1 View IMPRESSION: No acute cardiopulmonary abnormality. No interval change. Electronically Signed: Garrett Green MD at 13:42 EST ,
[2022-06-08 13:36] LABS: Anion Gap 7 (5-15); BUN 8 mg/dL (7-18); BUN/Creat Ratio 8.3 RATIO (10-20); Calcium,Total 8.8 mg/dL (8.5-10.1); Chloride 109 mmol/L (98-107); Creatinine, Serum 0.96 mg/dL (0.55-1.02); EST Glomerular Filtration Rate 64 mL/min (>60); Est Glom Filt Rate - Afr Amer 78 mL/min (>60); Estimated Creatinine Clearance 65.15 ml/min; Glucose 88 mg/dL (74-106); Potassium 3.2 mmol/L (3.5-5.1); Sodium Level 140 mmol/L (136-145); Troponin-I HS 6 pg/mL (3.0-54.0)
--- NOTE | 2022-06-08 15:06 | EX.ED.DYSGE1 ---
HPI History of Present Illness Chief Complaint: Confusion Informant: patient and spouse/S.O. 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 She reports she had a cardiac stent placed 2 and half weeks ago there. She is on aspirin and Plavix. Of note she states she had continued chest pain and was admitted a week ago here for monitoring with no interventions. She states chest pain has improved since. States after leaving she has been having confusion with forgetfulness. She states she has had trouble with speech and getting her words out. She has no stroke history. She denies urinary symptoms denies cough. Denies headache symptoms. She states she is taking her medications. She brought her paperwork from [facility], reviewed she had a new left circumflex stent that was 80% blocked decreased on the left 5%. She had a previous right RCA stent that is 60% blocked. She has a 40% proximal LAD from review of her drawings. Reports is had previous MRI in the past. [facility] Medical History Anxiety and depression Bipolar 1 disorder CAD (coronary artery disease) COPD (chronic obstructive pulmonary disease) GERD (gastroesophageal reflux disease) HLD (hyperlipidemia) HTN (hypertension) Tobacco abuse Home Medications albuterol sulfate 90 mcg/actuation aerosol inhaler 8.5 gm inhalation DAILY breathing 07/05/20 [History Last Taken Unknown] clopidogrel 75 mg tablet 75 mg PO DAILY anti platelet 07/05/20 [History Last Taken Unknown] trazodone 50 mg tablet 400 mg PO QHS sleep 07/05/20 [History Last Taken Unknown] vilazodone 40 mg tablet (Viibryd) 40 mg PO DAILY mental health 10/08/21 [History Last Taken Unknown] alirocumab 75 mg/mL subcutaneous pen injector (Praluent Pen) 75 mg subcut Q14D cholesterol 06/02/22 [History Last Taken Unknown] aspirin 81 mg tablet,delayed release 81 mg PO DAILY heart health 06/02/22 [History Last Taken Unknown] bupropion HCl 150 mg tablet,12 hr sustained-release (Wellbutrin SR) 150 mg PO DAILY mental health 06/02/22 [History Last Taken Unknown] carbamazepine 200 mg tablet (Tegretol) 200 mg PO BID seizures 06/02/22 [History Last Taken Unknown] cariprazine 1.5 mg capsule (Vraylar) 1.5 mg PO DAILY mental health 06/02/22 [History Last Taken Unknown] clonazepam 0.5 mg tablet 0.5 mg PO BID anxiety 06/02/22 [History Last Taken Unknown] isosorbide mononitrate 30 mg tablet,extended release 24 hr 30 mg PO DAILY heart 06/02/22 [History Last Taken Unknown] losartan 25 mg tablet 25 mg PO DAILY blood pressure 06/02/22 [History Last Taken Unknown] melatonin 10 mg tablet 10 mg PO QHS #30 tabs 06/02/22 [Rx Last Taken Unknown] pantoprazole 20 mg tablet,delayed release 20 mg PO DAILY reflux 06/02/22 [History Last Taken Unknown] topiramate 100 mg tablet (Topamax) 100 mg PO BID seizures 06/02/22 [History Last Taken Unknown] Allergy/AdvReac Type Severity Reaction Status Date / Time adhesive tape Allergy Hives Verified 06/02/22 05:13 aspirin [ASA] Allergy Other Verified 06/02/22 05:13 budesonide [From Symbicort] Allergy Anaphylaxis Verified 06/02/22 05:13 formoterol [From Symbicort] Allergy Anaphylaxis Verified 06/02/22 05:13 latex Allergy Hives Verified 06/02/22 05:13 Penicillins [PCN] Allergy Hives Verified 06/02/22 05:13 Family History Mother CAD (coronary artery disease) Heart disease Hypertension Myocardial infarction Father CAD (coronary artery disease) CVA (cerebral vascular accident) Heart disease Hypertension Surgical History H/O: hysterectomy History of cholecystectomy History of heart artery stent History of [place] fundoplication Hx of tonsillectomy Social History household members: spouse Smoking Status: Current every day smoker tobacco type: cigarettes alcohol intake: never substance use type: does not use ROS ROS ED Constitutional Constitutional ED: Denies chills, fever(s) or sweats Eyes Eyes: Denies change in vision ENT ENT ED: Denies dysphagia or sore throat Cardiovascular Cardiovascular: Denies chest pain, leg edema, palpitations or racing heartbeat Respiratory/Chest Respiratory/Chest: Denies cough, dyspnea or dyspnea on exertion Gastrointestinal Gastrointestinal: Denies abdominal pain, diarrhea, nausea or vomiting Genitourinary Genitourinary ED: Denies dysuria, hematuria or urinary frequency Musculoskeletal Musculoskeletal: Denies back pain, extremity pain or neck pain Integumentary Denies rash or wounds Neurologic Neurologic: Reports other Details: Confusion with memory issues ; Denies headache(s), paresthesias or weakness EXAM Physical Exam Const Vital Signs: 06/08/22 12:28 06/08/22 13:00 06/08/22 13:05 Temperature 97.2 F L Temperature Source Temporal Pulse Rate 71 60 Respiratory Rate 18 18 Blood Pressure 124/91 H 143/101 H Blood Pressure Mean 102 115 Pulse Ox 97 97 Oxygen Delivery Method Room Air Room Air Room Air 06/08/22 13:05 06/08/22 14:02 Temperature 97.8 F Temperature Source Temporal Pulse Rate 89 59 L Respiratory Rate 16 23 H Blood Pressure 143/101 H 129/80 H Blood Pressure Mean 115 96 Pulse Ox 99 97 Oxygen Delivery Method Room Air Room Air Positive well nourished and well developed General Appearance ED: well developed and NAD HEENT Reports moist mucous membranes normocephalic and atraumatic Eyes PERRL, EOMs intact bilaterally and conjunctivae normal General Eye ED: Yes normal appearance of both eyes Neck no lymphadenopathy and supple General: Negative for tenderness Chest Wall Chest: Negative for tenderness Resp normal respiratory effort and normal air movement Effort and Inspection: symmetric chest movement; Negative for respiratory distress Cardio regular rate, regular rhythm and no murmurs Peripheral Pulses: pulses 2+ throughout GI normal to inspection, nondistended, normoactive bowel sounds and non-tender Palpation: Negative for guarding or rebound tenderness present Back/Spine no CVA tenderness and no thoracic nor lumbar tenderness Extremity normal to inspection General Extremety ED: Negative for edema or tenderness General Extremity: Negative for edema Neuro oriented x3 and no sensory deficits noted Neuro Narrative: NIH of 0. However patient was slow to response when reading words and pictures. Sensorium / Orientation: awake and alert Skin no rashes or lesions noted and no wounds MDM MDM MDM Narrative Medical decision making narrative: Interventions / MDM: Differential diagnosis: CVA, infection, electrolyte abnormalities Diagnosis considered but do not suspect: N/A My EKG interpretation: Sinus rhythm rate of [address] or T wave changes. Imaging independently reviewed and interpreted by myself: 1 view chest x-ray no acute process. CT brain interpreted by myself and read by radiology negative for acute process. External documents reviewed: Discharge paperwork from [facility]. Test considered but not ordered:N/A ED course: Patient had NIH of 0 however with confusion reporting troubles with speech, potential stroke is in the differential.'s been going on for 6 days. She is not a tPA candidate. CT brain discussion with rate does not review showed no acute process. She has no weakness or any debilitating factors at this time. Discussed with radiologist about obtaining MRI in the ED for which she is cleared to rule out stroke. Especially has been going on for 6 days. Laboratory studies were read obtained hemoglobin 13.5 white count 5.2 lites normal potassium 3.2 so 1 creatinine of 0.96. Urine was negative for infection. Chest x-ray negative for infection. MRI with concerning changes of the corpus callosum. Stroke differential out 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 disease versus glioma or encephalitis, however she has 6 days of symptoms she is afebrile and not likely infectious. Her symptoms more likely of stroke concerns. Re-evaluation: Clinically stable, I spoke with hospitalist, will order CT angiogram for vascular studies of the head and neck. She will likely need a bubble study in the hospital. Patient updated. Admitted to PCU. Disposition discussed with patient/family/significant other: Hospitalist, Dr. Frias Case discussed with consulting clinician: N/A Lab Data Attestation: I reviewed the patient's lab results. Labs: Laboratory Results - last 24 hr 06/08/22 06/08/22 06/08/22 12:59 13:00 13:02 WBC 5.2 RBC 4.50 Hgb 13.5 Hct 40.4 MCV 89.8 MCH 30.0 MCHC 33.4 RDW Std Deviation 43.7 RDW Coeff of Benigno 13.4 Plt Count 172 MPV 9.0 Immature Gran % (Auto) 0.200 Neut % (Auto) 67.1 Lymph % (Auto) 23.5 [place] % (Auto) 6.7 Eos % (Auto) 2.1 Baso % (Auto) 0.4 Absolute Neuts (auto) 3.5 Absolute Lymphs (auto) 1.23 Nucleated RBC % 0 PT INR APTT Sodium Potassium Chloride Carbon Dioxide Anion Gap BUN Creatinine Estim Creat Clear Calc Est GFR (MDRD) Af Amer Est GFR (MDRD) Non-Af BUN/Creatinine Ratio Glucose Calcium Troponin I High Sens Urine Color Yellow Urine Clarity Sl. Cloudy Urine pH 7.0 Ur Specific [place] 1.010 Urine Protein Negative Urine Glucose (UA) Normal Urine Ketones Negative Urine Occult Blood 10 H Urine Nitrite Negative Urine Bilirubin Negative Urine Urobilinogen Normal Ur Leukocyte Esterase Negative Urine RBC 0-5 SEEN Urine WBC 0 SEEN Ur Squamous Epith Cells 0 SEEN Urine Bacteria 0 SEEN Urine Mucus 0 SEEN POC Glucose 100 06/08/22 06/08/22 13:02 13:02 WBC RBC Hgb Hct MCV MCH MCHC RDW Std Deviation RDW Coeff of Benigno Plt Count MPV Immature Gran % (Auto) Neut % (Auto) Lymph % (Auto) [place] % (Auto) Eos % (Auto) Baso % (Auto) Absolute Neuts (auto) Absolute Lymphs (auto) Nucleated RBC % PT 13.5 INR 1.1 APTT 27.6 Sodium 140 Potassium 3.2 L Chloride 109 H Carbon Dioxide 24.0 Anion Gap 7 BUN 8 Creatinine 0.96 Estim Creat Clear Calc 65.15 Est GFR (MDRD) Af Amer 78 Est GFR (MDRD) Non-Af 64 BUN/Creatinine Ratio 8.3 L Glucose 88 Calcium 8.8 Troponin I High Sens 6 Urine Color Urine Clarity Urine pH Ur Specific [place] Urine Protein Urine Glucose (UA) Urine Ketones Urine Occult Blood Urine Nitrite Urine Bilirubin Urine Urobilinogen Ur Leukocyte Esterase Urine RBC Urine WBC Ur Squamous Epith Cells Urine Bacteria Urine Mucus POC Glucose Radiography Diagnostic Testing: Clinical Impression(s) from Imaging Studies Brain MRI 06/08/22 00:00 IMPRESSION: Signal abnormality in the splenium of the corpus callosum. Differential considerations include demyelination, acute ischemia, high-grade glioma. Additional considerations include encephalitis or acute disseminated encephalomyelitis (ADEM), posterior reversible encephalopathy syndrome (PRES). Limited additional T2 signal hyperintensity are nonspecific and may be due to microvascular ischemia, demyelination, vasculitis. Electronically Signed: Jacqueline Banegas MD at 17:03 EST Reading Location ID and State: [id number] / Tel , Service support , Brain CT 06/08/22 13:03 IMPRESSION: Normal CT brain without intravenous contrast. Aspect score 10 Electronically Signed: Garrett Green MD at 13:54 EST , ADDENDUM: 06/08/22 1401 IMPRESSION: Normal CT brain without intravenous contrast. Aspect score 10 N.B. : The above Results were Read Back by Garrett Green MD to Aleta Frances MD, and understanding confirmed on 06/08/2022 13:54:31 (ET). Electronically Signed: Garrett Green MD at 13:54 EST , Chest X-Ray 06/08/22 13:30 IMPRESSION: No acute cardiopulmonary abnormality. No interval change. Electronically Signed: Garrett Green MD at 13:42 EST , Discharge Plan Triage Chief Complaint: Confusion ED Provider: Juan Daniel River Dx/Rx/DC Orders Clinical Impression: Acute cerebrovascular accident (CVA), History of CAD (coronary artery disease), Confusion Prescriptions: No Action trazodone 50 MG tablet 400 mg PO QHS clopidogrel 75 MG tablet 75 mg PO DAILY albuterol sulfate 8.5 GM HFA aerosol inhaler 8.5 gm INHALATION DAILY Label Comments: INHALE 2 PUFFS BY MOUTH EVERY 6 HOURS NEEDED vilazodone [Viibryd] 40 mg Tablet 40 mg PO DAILY bupropion HCl [Wellbutrin SR] 150 mg Tablet Sustained-Release 12 Hr 150 mg PO DAILY isosorbide mononitrate 30 mg Tablet Extended Release 24 Hr 30 mg PO DAILY Hold Instructions: Resume on 06/10/22. With your commercial construction superintendent regarding when to resume clonazepam 0.5 mg Tablet 0.5 mg PO BID pantoprazole 20 mg Tablet,Delayed Release (Dr/Ec) 20 mg PO DAILY carbamazepine [Tegretol] 200 mg Tablet 200 mg PO BID losartan 25 mg Tablet 25 mg PO DAILY Hold Instructions: Resume on 06/10/22. With your commercial construction superintendent regarding when to resume topiramate [Topamax] 100 mg Tablet 100 mg PO BID Vraylar 1.5 mg Capsule 1.5 mg PO DAILY aspirin 81 mg Tablet,Delayed Release (Dr/Ec) 81 mg PO DAILY Praluent Pen 75 mg/mL Pen Injector 75 mg SUBCUT Q14D melatonin 10 mg Tablet 10 mg PO QHS Qty: 30 0RF Primary Care Provider: Lida Cool Referrals: Lida Cool DO [Primary Care Provider] - Disposition Disposition: Acute Care Hospital [facility]
--- NOTE | 2022-06-08 17:47 | CT_ITS ---
INDICATION: acute CVA EXAMINATION: CT BRAIN WITH CONTRAST TECHNIQUE: Noncontrast axial images were obtained of the brain. Subsequently, routine carotid CT angiogram protocol was performed without and with IV contrast. In addition, images were obtained of the [place] NASCET criteria using the distal ICAs for comparison were used for evaluation of stenoses. 3D reconstructions were reviewed. A radiation dose optimization technique was used for this scan. IV Contrast dosage and agent: COMPARISON: None. FINDINGS: --CTA NECK: AORTIC ARCH AND BRANCHES: Normal anatomy, patent. RIGHT CCA: No occlusion, significant stenosis or dissection. RIGHT ICA: No occlusion, significant stenosis or dissection. LEFT CCA: No occlusion, significant stenosis or dissection. LEFT ICA: No occlusion, significant stenosis or dissection. RIGHT VERTEBRAL ARTERY: No occlusion, significant stenosis or dissection. LEFT VERTEBRAL ARTERY: No occlusion, significant stenosis or dissection. NECK SOFT TISSUES: Unremarkable. Calcified granuloma in the right upper lobe. --CTA HEAD: --Anterior circulation: ICAs: No significant stenosis at the intracranial/visualized segments. ACAs: No significant stenosis at the visualized segments. ACOM: Present. MCAs: No significant stenosis at the visualized segments. --Posterior circulation: PCOMs: gastroenterologist: No significant stenosis at the visualized segments. BASILAR ARTERY: No significant stenosis. VERTEBRAL ARTERIES: No significant stenosis at the intradural/visualized segments. No evidence of intracranial aneurysm or vascular malformation. CT/CTA Head AND Neck W/ Contrast IMPRESSION: Negative CTA Carotid and CTA Brain. Electronically Signed: Jacqueline Banegas MD at 18:59 EST Reading Location ID and State: [id number] / Tel , Service support ,
--- NOTE | 2022-06-08 18:17 | HP.PCM.HOS_ITS ---
HPI - General General Date of Admission: 06/08/22 Date of Service: 06/08/22 Chief Complaint: Increased confusion, mild motor difficulties. HPI Narrative The patient is a 56 y/o F w/ PMHx: Tobacco use, COPD, CAD s/p PCI, HTN, HLD, Anxiety and Depression/Bipolar disorder, recent 06/02/22 admission for chest pain with history of PCI x 2 ~ 3 weeks prior with ECHO at that time with EF 60% and normal LV systolic function as well as stress test which was unremarkable with unremarkable cardiac enzymes who now represents to the [facility] ED on 06/08/22 with history of nearly 5 days to 7 days of intermittent sensation of confusion with difficulty performing her normal tasks for example recently driving with her she is taking different routes than she might normally and she cannot understand why or if he takes a different route she cannot comprehend it as well as activities that normally she can perform light going to the grocery store and being self-directed at getting items she has been able to do as well as 's observation that when she has attempted to drive she has difficulty staying within the lines therefore he is since that moment driven and not allowed to drive however this has been ongoing prompting him to eventually bring her to the ED for evaluation. She also reports difficulty with getting her words out occasionally although very fluent in the ED upon evaluation. Work-up in the ED included T98.1, heart rate 70, BP 120/63, respiratory rate 26, 98% on room air, CBC with WC 5.2, him 113.5, platelet 172 without marked shift, unremarkable coags, BMP with potassium 3.2, chloride 109 otherwise not marked appearing, troponin 6, urinalysis without any obvious evidence of UTI, CT of the brain with no acute intracranial finding, for up MRI of the brain with IV and without IV contrast with signal abnormality in the splenium of the corpus callosum, limited additional T2 signal hyperintensity nonspecific, CTA head and neck unremarkable, EKG with sinus bradycardia with no acute evidence of ischemia, chest x-ray with no acute cardiopulmonary findings. Reviewed MRI findings as well as CTA head and neck with radiologist upon patient admission. [facility] Medical History Anxiety and depression Bipolar 1 disorder CAD (coronary artery disease) COPD (chronic obstructive pulmonary disease) GERD (gastroesophageal reflux disease) HLD (hyperlipidemia) HTN (hypertension) Tobacco abuse Home Medications albuterol sulfate 90 mcg/actuation aerosol inhaler 8.5 gm inhalation DAILY breathing 07/05/20 [History Last Taken Unknown] clopidogrel 75 mg tablet 75 mg PO DAILY anti platelet 07/05/20 [History Last Taken 06/07/22] trazodone 50 mg tablet 400 mg PO QHS sleep 07/05/20 [History Last Taken 06/07/22] vilazodone 40 mg tablet (Viibryd) 40 mg PO DAILY mental health 10/08/21 [History Last Taken 06/07/22] alirocumab 75 mg/mL subcutaneous pen injector (Praluent Pen) 75 mg subcut Q14D cholesterol 06/02/22 [History Last Taken 05/29/22] aspirin 81 mg tablet,delayed release 81 mg PO DAILY heart health 06/02/22 [History Last Taken 06/08/22] bupropion HCl 150 mg tablet,12 hr sustained-release (Wellbutrin SR) 150 mg PO DAILY mental health 06/02/22 [History Last Taken 06/08/22] carbamazepine 200 mg tablet (Tegretol) 400 mg PO BID seizures 06/02/22 [History Last Taken 06/08/22] cariprazine 1.5 mg capsule (Vraylar) 1.5 mg PO DAILY mental health 06/02/22 [History Last Taken 06/07/22] clonazepam 0.5 mg tablet 0.5 mg PO BID anxiety 06/02/22 [History Last Taken 06/08/22] isosorbide mononitrate 30 mg tablet,extended release 24 hr 30 mg PO DAILY heart 06/02/22 [History Last Taken Unknown] losartan 25 mg tablet 25 mg PO DAILY blood pressure 06/02/22 [History Last Taken Unknown] pantoprazole 20 mg tablet,delayed release 40 mg PO DAILY reflux 06/02/22 [History Last Taken 06/08/22] topiramate 100 mg tablet (Topamax) 100 mg PO BID seizures 06/02/22 [History Last Taken 06/08/22] atorvastatin 80 mg tablet 80 mg PO QHS CHOLESTEROL 06/08/22 [History Last Taken 06/07/22] melatonin 10 mg tablet 10 mg PO QHS SLEEP 06/08/22 [History Last Taken 06/07/22] metoprolol succinate 25 mg tablet,extended release 24 hr 12.5 mg PO DAILY HTN 06/08/22 [History Last Taken 06/08/22] nicotine 21 mg/24 hr daily transdermal patch 1 patch transdermal DAILY SMOKING CEASATION 06/08/22 [History Last Taken 06/07/22] Allergy/AdvReac Type Severity Reaction Status Date / Time adhesive tape Allergy Hives Verified 06/02/22 05:13 aspirin [ASA] Allergy Other Verified 06/02/22 05:13 budesonide [From Symbicort] Allergy Anaphylaxis Verified 06/02/22 05:13 formoterol [From Symbicort] Allergy Anaphylaxis Verified 06/02/22 05:13 latex Allergy Hives Verified 06/02/22 05:13 Penicillins [PCN] Allergy Hives Verified 06/02/22 05:13 Family History Mother CAD (coronary artery disease) Heart disease Hypertension Myocardial infarction Father CAD (coronary artery disease) CVA (cerebral vascular accident) Heart disease Hypertension Surgical History H/O: hysterectomy History of cholecystectomy History of heart artery stent History of [place] fundoplication Hx of tonsillectomy Social History household members: spouse Smoking Status: Current every day smoker tobacco type: cigarettes alcohol intake: never substance use type: does not use ROS ROS Narrative Admission Review of Systems: CONSTITUTIONAL: No weight loss, fever, chills, + weakness or fatigue. HEENT: Eyes: No visual loss, blurred vision, double vision or yellow sclerae. Ears, Nose, Throat: No hearing loss, sneezing, congestion, runny nose or sore throat. SKIN: No rash or itching, lesions, wounds. CARDIOVASCULAR: No recurrent chest pain, chest pressure or chest discomfort, palpitations, edema, orthopnea, syncopal events. RESPIRATORY: No shortness of breath, cough or sputum, wheezing, hemoptysis. GASTROINTESTINAL: No anorexia, nausea, vomiting or diarrhea, abdominal pain, melena, BRBPR. GENITOURINARY: No dysuria, frequency, urgency or retention. NEUROLOGICAL: + Intermittent confusion, mild expressive aphasia reports as well as fine motor skill difficulties, no headache, dizziness, syncope, paralysis, ataxia, numbness or tingling in the extremities, focal weakness, change in bowel or bladder control, seizure. MUSCULOSKELETAL: + muscle, back pain, joint pain or stiffness. HEMATOLOGIC: + Easy bleeding or bruising. LYMPHATICS: No enlarged nodes. No history of splenectomy. PSYCHIATRIC: + history of depression or anxiety. ENDOCRINOLOGIC: No reports of sweating, cold or heat intolerance. No polyuria or polydipsia. ALLERGIES: + history of hives and anaphylaxis. Vital Signs Vital Signs Vital Signs: 06/08/22 12:28 06/08/22 13:00 06/08/22 13:05 Temperature 97.2 F L Temperature Source Temporal Pulse Rate 71 60 Respiratory Rate 18 18 Blood Pressure 124/91 H 143/101 H Blood Pressure Mean 102 115 Pulse Ox 97 97 Oxygen Delivery Method Room Air Room Air Room Air 06/08/22 13:05 06/08/22 14:02 06/08/22 17:00 Temperature 97.8 F Temperature Source Temporal Pulse Rate 89 59 L 59 L Respiratory Rate 16 23 H 16 Blood Pressure 143/101 H 129/80 H 140/120 H Blood Pressure Mean 115 96 126 Pulse Ox 99 97 97 Oxygen Delivery Method Room Air Room Air Room Air Weight Weight: 174 lb 11.2 oz Body Mass Index (BMI) 27.3 Physical Exam Narrative Physical Examination: General: Awake, alert, oriented x 3 and cooperative, seated upright in ED bed, no acute distress, very fluent currently with no evidence of any expressive aphasia. Skin: Normal color, normal turgor, no icterus, no cyanosis. HEENT: AT/NC, EOMI, PERRLA, MMM, no carotid bruits or JVD noted. Lungs: Diminished, greater bases, appropriate for, no rales, ronchi or wheezing. Heart: Currently mildly bradycardic with rate rhythm; no gallop, rub audible. Abdomen: Soft, overweight, NTTP, ND, distant normal BS, no HSM. Extremities: No cyanosis, clubbing, or edema. Neurological: Patient awake, alert, oriented as noted, cognitive function despite comments about recent confusion and forgetfulness remain intact, she could recall me from her previous admission and could give me appropriate events from then and recently but from discussions with spouse certainly has been abnormal recently and her activities and difficulty with certain motor activities; pupils equally reactive to light and accommodation, cranial nerves II-XII grossly normal, moving all 4 extremities, no focal deficits, strength preserved, finger-nose and [id number] appropriate, equivocal Babinski, sensation intact. Psychiatric: Affect appears normal, no acute evidence of depressive or anxiety feelings. Results Lab / Micro Data Result Diagrams: 06/08/22 13:02 06/08/22 13:02 Labs: Laboratory Results - last 24 hr 06/08/22 12:59: POC Glucose 100 06/08/22 13:00: Urine Color Yellow, Urine Clarity Sl. Cloudy, Urine pH 7.0, Ur Specific [place] 1.010, Urine Protein Negative, Urine Glucose (UA) Normal, Urine Ketones Negative, Urine Occult Blood 10 H, Urine Nitrite Negative, Urine Bilirubin Negative, Urine Urobilinogen Normal, Ur Leukocyte Esterase Negative, Urine RBC 0-5 SEEN, Urine WBC 0 SEEN, Ur Squamous Epith Cells 0 SEEN, Urine Bacteria 0 SEEN, Urine Mucus 0 SEEN 06/08/22 13:02: WBC 5.2, RBC 4.50, Hgb 13.5, Hct 40.4, MCV 89.8, MCH 30.0, MCHC 33.4, RDW Std Deviation 43.7, RDW Coeff of Benigno 13.4, Plt Count 172, MPV 9.0, Immature Gran % (Auto) 0.200, Neut % (Auto) 67.1, Lymph % (Auto) 23.5, [place] % (Auto) 6.7, Eos % (Auto) 2.1, Baso % (Auto) 0.4, Absolute Neuts (auto) 3.5, Absolute Lymphs (auto) 1.23, Nucleated RBC % 0 06/08/22 13:02: PT 13.5, INR 1.1, APTT 27.6 06/08/22 13:02: Sodium 140, Potassium 3.2 L, Chloride 109 H, Carbon Dioxide 24.0, Anion Gap 7, BUN 8, Creatinine 0.96, Estim Creat Clear Calc 65.15, Est GFR (MDRD) Af Amer 78, Est GFR (MDRD) Non-Af 64, BUN/Creatinine Ratio 8.3 L, Glucose 88, Calcium 8.8, Troponin I High Sens 6 Radiology Impression Brain MRI 06/08/22 00:00 IMPRESSION: Signal abnormality in the splenium of the corpus callosum. Differential considerations include demyelination, acute ischemia, high-grade glioma. Additional considerations include encephalitis or acute disseminated encephalomyelitis (ADEM), posterior reversible encephalopathy syndrome (PRES). Limited additional T2 signal hyperintensity are nonspecific and may be due to microvascular ischemia, demyelination, vasculitis. Electronically Signed: Jacqueline Banegas MD at 17:03 EST , Brain CT 06/08/22 13:03 IMPRESSION: Normal CT brain without intravenous contrast. Aspect score 10 Electronically Signed: Garrett Green MD at 13:54 EST , ADDENDUM: 06/08/22 1401 IMPRESSION: Normal CT brain without intravenous contrast. Aspect score 10 N.B. : The above Results were Read Back by Garrett Green MD to Aleta Frances MD, and understanding confirmed on 06/08/2022 13:54:31 (ET). Electronically Signed: Garrett Green MD at 13:54 EST , Chest X-Ray 06/08/22 13:30 IMPRESSION: No acute cardiopulmonary abnormality. No interval change. Electronically Signed: Garrett Green MD at 13:42 EST , Assessment & Plan Assessment/Plan (1) Acute cerebrovascular accident (CVA): PLAN: Plan The patient is a 56 y/o F w/ PMHx: Tobacco use, COPD, CAD s/p PCI, HTN, HLD, Anxiety and Depression/Bipolar disorder, recent 06/02/22 admission for chest pain with history of PCI x 2 ~ 3 weeks prior with ECHO at that time with EF 60% and normal LV systolic function as well as stress test which was unremarkable with unremarkable cardiac enzymes who now represents to the [facility] ED on 06/08/22 with history of nearly 5 days to 7 days of intermittent sensation of confusion with difficulty performing her normal tasks as well as mild expressive aphasia and some difficulty with fine motor skills prompting eventual ED evaluation. #1. Acute Confusion, Mild expressive aphasia, Mild fine motor difficulties secondary to Acute CVA (signal abnormality in the splenium of the corpus callosum): Will admit to the PCU, as noted MRI brain and CTA head and neck o btained in the ED, will request ECHO with bubble study as not performed prior from recent records with bubble study, PT/OT/Speech/Nutrition evaluation per protocol. Will consult Neurology for evaluation. Will allow permissive HTN given although confusion onset has been ongoing the CT head was normal and if happened several days ago would have expected more subacute findings on CT head as well, will maintain on asa/plavix, statin w/ AM FLP, fall precautions. Mag, TSH, FLP, HgBA1c requested. #2. Hypokalemia: Admission K+ 3.2, magnesium level, supplementation given, repeat level in AM. #3.? CAD: Status post prior PCI, most recently approximately now 3 weeks prior to her current presentation with recent admission approximately 1 to 1.5-week prior to current evaluation with unremarkable echocardiogram unfortunately not performed with bubble study at that time as well as unremarkable stress testing, will continue aspirin, Plavix, statin, maintaining permissive hypertension as noted. #4.? Chronic COPD: Not on chronic inhalers, may add if necessary otherwise in the interim PRN albuterol, HOB, IS parameters. #5.? Hypertension: Given presentation with no subacute findings on CT of the h ead but noted on MRI we will hold on patient's continued blood pressure medications and will maintain permissive hypertension to be cautious, as needed agents per stroke protocol, add back once appropriate. #6.? Hyperlipidemia: Continue statin, also on praluent outpatient, FLP in AM. #7.? Tobacco Abuse: Encouraged cessation, inpatient consultation per RT, NR if desired. #8.? Anxiety and depression/bipolar disorder: We will continue patient home significant psychiatric regimen. #9.? DVT prophylaxis: SCDs, Lovenox. Admission Evaluation Time spent evaluating chart, patient history, patient evaluation, care planning and discussion with specialists: 75 minutes. Charges/Coding Visit Charges Inpatient E&M: 35377 Init Hosp L3
--- NOTE | 2022-06-08 21:45 | ECHOL_ITS ---
Reason For Study: CVA Procedure This was a limited 2D transthoracic echocardiogram. Exam performed portable in patient room. Left Ventricle Normal LV size. Left ventricular systolic function is normal. The estimated ejection fraction is 65 %. No regional wall motion abnormalities noted. Right Ventricle Normal RV size. Normal systolic function. Atria Normal left atrium. Normal right atrium. Bubble contrast study is positive for PFO. Mitral Valve Normal mitral valve. Tricuspid Valve Normal tricuspid valve. Aortic Valve Trisinus/trileaflet aortic valve. Normal aortic valve. Pulmonic Valve Normal pulmonic valve. Great Vessels Normal aortic root. The pulmonary artery is normal size. Normal inferior vena cava. Pericardium/Pleural No pericardial effusion. Medication Performed a rapid injection of agitated mix of 9 cc saline and 1cc air to assess for atrial septal defect. MMode/2D Measurements & Calculations LVIDd: 4.6 cm IVSd: 0.93 cm Ao root diam: 3.4 cm LVIDs: 2.7 cm LVPWd: 1.1 cm RVDd: 2.8 cm FS: 41.7 % LAV(MOD-sp4): 31.0 ml LVAd ap4: 27.2 cm2 LVAd ap2: 27.5 cm2 LVLd ap4: 7.6 cm LVLd ap2: 7.7 cm EDV(MOD-sp4): 82.0 ml EDV(MOD-sp2): 84.8 ml EDV(sp4-el): 82.6 ml EDV(sp2-el): 83.6 ml LVAs ap4: 13.0 cm2 LVAs ap2: 15.2 cm2 LVLs ap4: 6.5 cm LVLs ap2: 6.7 cm ESV(MOD-sp4): 24.1 ml ESV(MOD-sp2): 30.1 ml ESV(sp4-el): 22.2 ml ESV(sp2-el): 29.4 ml EF(MOD-sp4): 70.6 % EF(MOD-sp2): 64.5 % EF(sp4-el): 73.1 % SV(MOD-sp4): 57.9 ml SV(MOD-sp2): 54.6 ml SV(sp4-el): 60.4 ml LA A4 area: 13.9 cm2 LA dimension(2D): 3.2 cm RA A4 area: 12.3 cm2 ECHO/Echo, Limited Study Interpretation Summary Normal LV size. Left ventricular systolic function is normal. The estimated ejection fraction is 65 %. Bubble contrast study is positive for PFO. Ordering Physician: Carmen Frias Referring Physician: Francis Chatterjee M.D. Performed By: Sandra Swanson RDCS
--- NOTE | 2022-06-08 21:45 | TELEMED_ITS ---
[facility] Tele[facility] has confirmed receipt of a request for visit. This document confirms receipt of the order initiating the consult. To find the results of the consultation, please view the patient's reports for the scanned Telemed Consult.
[2022-06-08] MEDS: Potassium Chloride Oral Tablet 20 MEQ 40 MEQ PO (23:18)
[2022-06-08] MEDS: MELATONIN 10 MG TABLET PO (23:18)
[2022-06-08] MEDS: Atorvastatin Calcium 80 MG Tablet PO (23:18)
[2022-06-08] MEDS: clonazePAM 0.5 MG Tablet PO (23:18)
[2022-06-08] MEDS: carBAMazepine 200 MG Tablet PO (23:18)
[2022-06-08] MEDS: traZODone 100 MG Tablet 400 MG PO (23:18)
[2022-06-08] MEDS: Topiramate 100 MG Tablet PO (23:19)
[2022-06-08] MEDS: 0.9% Normal Saline 1,000 ML 100 ML IV (23:19)
[2022-06-09 01:24] VITALS: BP 123/74; PULSE 54; RESP 15; TEMP 36.4; O2SAT 96
[2022-06-09 03:20] VITALS: O2SAT 95
[2022-06-09 05:08] VITALS: BP 138/88; PULSE 61; RESP 18; TEMP 36.5; O2SAT 97
[2022-06-09 06:24] LABS: Absolute Lymphocyte Count 1.15 X10^3/uL (0.83-4.51); Absolute Neutrophil Count 4.1 X10^3/uL (2.0-7.7); Basophil# 0.02 X10^3/uL; Basophil% 0.3 % (0-1); Eosinophils% 1.7 % (0-5); Hematocrit 39.4 % (37-47); Hemoglobin 12.7 g/dL (12.0-15.0); Lymphocyte # 1.15 X10^3/ul (0.83-4.51); Lymphocyte % 20.1 % (19-41); Mean Corp Hgb Conc 32.2 g/dL (32-36); Mean Corpuscular Hgb 29.8 pg (27.0-32.0); Mean Corpuscular Volume 92.5 fL (81-99); Mean Platelet Vol. 9.5 fl (6.2-12.0); Monocyte# 0.38 X10^3/uL; Monocyte% 6.6 % (0-10); NRBC Flagged by Analyzer 0 % (0-5); Neutrophil # 4.06 X10^3/uL (2.7-7.7); Platelet Count 163 K/mm3 (150-450); RBC Distribution Width CV 13.5 % (11.6-14.6); RBC Distribution Width SD 44.9 fl (35.1-43.9); Red Blood Count 4.26 M/mm3 (4.2-5.4); White Blood Count 5.7 K/mm3 (4.4-11.0)
[2022-06-09 07:08] LABS: ALB/GLOB Ratio 1.1 RATIO (0.9-2.4); AST(SGOT) 12 U/L (15-37); Alanine Aminotransfer ALT/SGPT 25 U/L (13-56); Alkaline Phosphatase 86 U/L (45-117); Anion Gap 8 (5-15); BUN 8 mg/dL (7-18); BUN/Creat Ratio 9.8 RATIO (10-20); Calcium,Total 8.3 mg/dL (8.5-10.1); Chloride 114 mmol/L (98-107); Cholesterol 95 mg/dL (200); Creatinine, Serum 0.82 mg/dL (0.55-1.02); EST Glomerular Filtration Rate 78 mL/min (>60); Est Glom Filt Rate - Afr Amer 94 mL/min (>60); Estimated Creatinine Clearance 76.27 ml/min; Globulin 2.8 g/dL (2.2-4.2); Glucose 115 mg/dL (74-106); High Density Lipoprotein 53 mg/dL; Potassium 3.9 mmol/L (3.5-5.1); Protein, Total 5.8 g/dL (6.4-8.2); Sodium Level 143 mmol/L (136-145); Thyroid Stim Hormone (TSH) 3.39 uIU/mL (0.358-3.74); Triglycerides 111 mg/dL; Very Low Density Lipoprotein 22 mg/dL (5-40)
[2022-06-09 07:44] LABS: Hemoglobin A1c 5.2 % (3.8-5.6)
[2022-06-09] MEDS: VILAZODONE HYDROCHLORIDE 10 MG TABLET 40 MG PO (08:11)
[2022-06-09] MEDS: Pantoprazole Sodium 20 MG Tablet PO (08:12)
[2022-06-09] MEDS: Losartan Potassium 25 MG Tablet PO (08:12)
[2022-06-09] MEDS: buPROPion (SR) 150 MG Tablet.SA PO (08:12)
[2022-06-09] MEDS: clonazePAM 0.5 MG Tablet PO (08:12)
[2022-06-09] MEDS: Topiramate 100 MG Tablet PO (08:12)
[2022-06-09] MEDS: Clopidogrel Bisulfate 75 MG Tablet PO (08:12)
[2022-06-09] MEDS: carBAMazepine 200 MG Tablet PO (08:12)
[2022-06-09] MEDS: Aspirin E.C. 81 MG Tablet PO (08:13)
[2022-06-09] MEDS: Enoxaparin 40 MG/0.4 ML Syringe SC (08:13)
--- NOTE | 2022-06-09 08:17 | PN.HOSP_ITS ---
Subjective Subjective Patient is a 56-year-old lady with recent PCI 2 to 3 weeks prior to admission brought to the emergency department with increasing confusion and expressive aphasia in addition to fine motor difficulties. MRI obtained demonstrated signal abnormality in the splenium of the corpus callosum Coliseum with differential diagnosis including demyelination versus acute ischemia. Admitted to a monitored bed as a case of acute CVA Objective Data Objective Data Vital Signs: Vital Signs Temp Pulse Resp BP Pulse Ox O2 Del Method 97.7 F L 61 18 138/88 H 97 Room Air 06/09/22 05:08 06/09/22 05:08 06/09/22 05:08 06/09/22 05:08 06/09/22 05:08 06/09/22 05:08 Oxygen Delivery Method Room Air Weight: 81.6 kg Body Mass Index (BMI) 27.3 Lab / Micro Data Result Diagrams: 06/09/22 05:48 06/09/22 05:48 Labs: Laboratory Results - last 24 hr 06/08/22 12:59: POC Glucose 100 06/08/22 13:00: Urine Color Yellow, Urine Clarity Sl. Cloudy, Urine pH 7.0, Ur Specific [place] 1.010, Urine Protein Negative, Urine Glucose (UA) Normal, Urine Ketones Negative, Urine Occult Blood 10 H, Urine Nitrite Negative, Urine Bilirubin Negative, Urine Urobilinogen Normal, Ur Leukocyte Esterase Negative, Urine RBC 0-5 SEEN, Urine WBC 0 SEEN, Ur Squamous Epith Cells 0 SEEN, Urine Bacteria 0 SEEN, Urine Mucus 0 SEEN 06/08/22 13:02: WBC 5.2, RBC 4.50, Hgb 13.5, Hct 40.4, MCV 89.8, MCH 30.0, MCHC 33.4, RDW Std Deviation 43.7, RDW Coeff of Benigno 13.4, Plt Count 172, MPV 9.0, Immature Gran % (Auto) 0.200, Neut % (Auto) 67.1, Lymph % (Auto) 23.5, [place] % (Auto) 6.7, Eos % (Auto) 2.1, Baso % (Auto) 0.4, Absolute Neuts (auto) 3.5, Absolute Lymphs (auto) 1.23, Nucleated RBC % 0 06/08/22 13:02: PT 13.5, INR 1.1, APTT 27.6 06/08/22 13:02: Sodium 140, Potassium 3.2 L, Chloride 109 H, Carbon Dioxide 24.0, Anion Gap 7, BUN 8, Creatinine 0.96, Estim Creat Clear Calc 65.15, Est GFR (MDRD) Af Amer 78, Est GFR (MDRD) Non-Af 64, BUN/Creatinine Ratio 8.3 L, Glucose 88, Calcium 8.8, Troponin I High Sens 6 06/08/22 13:02: Magnesium 2.0 06/09/22 05:48: WBC 5.7, RBC 4.26, Hgb 12.7, Hct 39.4, MCV 92.5, MCH 29.8, MCHC 32.2, RDW Std Deviation 44.9 H, RDW Coeff of Benigno 13.5, Plt Count 163, MPV 9.5, Immature Gran % (Auto) 0.300, Neut % (Auto) 71.0 H, Lymph % (Auto) 20.1, [place] % (Auto) 6.6, Eos % (Auto) 1.7, Baso % (Auto) 0.3, Absolute Neuts (auto) 4.1, Absolute Lymphs (auto) 1.15, Nucleated RBC % 0 06/09/22 05:48: Sodium 143, Potassium 3.9, Chloride 114 H, Carbon Dioxide 21.0, Anion Gap 8, BUN 8, Creatinine 0.82, Estim Creat Clear Calc 76.27, Est GFR (MDRD) Af Amer 94, Est GFR (MDRD) Non-Af 78, BUN/Creatinine Ratio 9.8 L, Glucose 115 H, Calcium 8.3 L, Total Bilirubin 0.30, AST 12 L, ALT 25, Alkaline Phosphatase 86, Total Protein 5.8 L, Albumin 3.0 L, Globulin 2.8, [place] min/Globulin Ratio 1.1, Triglycerides 111, Cholesterol 95, LDL Cholesterol 20, VLDL Cholesterol 22, HDL Cholesterol 53, TSH 3.39 06/09/22 05:48: Hemoglobin A1c 5.2 Radiography Diagnostic Testing: Radiology Impression Brain MRI 06/08/22 00:00 IMPRESSION: Signal abnormality in the splenium of the corpus callosum. Differential considerations include demyelination, acute ischemia, high-grade glioma. Additional considerations include encephalitis or acute disseminated encephalomyelitis (ADEM), posterior reversible encephalopathy syndrome (PRES). Limited additional T2 signal hyperintensity are nonspecific and may be due to microvascular ischemia, demyelination, vasculitis. Electronically Signed: Jacqueline Banegas MD at 17:03 EST Reading Location ID and State: [id number] / Tel , Service support , ADDENDUM: 06/08/22 1857 IMPRESSION: Signal abnormality in the splenium of the corpus callosum. Differential considerations include demyelination, acute ischemia, high-grade glioma. Additional considerations include encephalitis or acute disseminated encephalomyelitis (ADEM), posterior reversible encephalopathy syndrome (PRES). Limited additional T2 signal hyperintensity are nonspecific and may be due to microvascular ischemia, demyelination, vasculitis. N.B. : The above Results were Read Back by Jacqueline Banegas MD to Dr. Carmen Frias MD, and understanding confirmed on 06/08/2022 18:50:08 (ET). Electronically Signed: Jacqueline Banegas MD at 17:03 EST Reading Location ID and State: [id number] / Tel , Service support , Brain CT 06/08/22 13:03 IMPRESSION: Normal CT brain without intravenous contrast. Aspect score 10 Electronically Signed: Garrett Green MD at 13:54 EST , ADDENDUM: 06/08/22 1401 IMPRESSION: Normal CT brain without intravenous contrast. Aspect score 10 N.B. : The above Results were Read Back by Garrett Green MD to Aleta Frances MD, and understanding confirmed on 06/08/2022 13:54:31 (ET). Electronically Signed: Garrett Green MD at 13:54 EST , Chest X-Ray 06/08/22 13:30 IMPRESSION: No acute cardiopulmonary abnormality. No interval change. Electronically Signed: Garrett Green MD at 13:42 EST , Head/Neck CTA 06/08/22 17:47 IMPRESSION: Negative CTA Carotid and CTA Brain. Electronically Signed: Jacqueline Banegas MD at 18:59 EST , Physical Exam Narrative GENERAL: cooperative HEENT: Atraumatic; normocephalic EYES; Anicteric, Normal Conjunctiva NECK; supple, normal thyroid, RESPIRATORY: Diminished to auscultation CARDIOVASCULAR: Regular S1 S2, GI: soft, normoactive bowel sounds, : No Renal angle tenderness; EXTREMITIES: No edema, no clubbing, MUSCULOSKELETAL: no muscle wasting NEURO: Awake; no lateralizing signs. SKIN: No Rash PSYCH; Flat affect Assessment & Plan Assessment/Plan (1) Acute cerebrovascular accident (CVA): PLAN: Plan Patient is a 56-year-old lady with recent PCI 2 to 3 weeks prior to admission brought to the emergency department with increasing confusion and expressive aphasia in addition to fine motor difficulties. MRI obtained demonstrated signal abnormality in the splenium of the corpus callosum Coliseum with differential diagnosis including demyelination versus acute ischemia. Admitted to a monitored bed as a case of acute CVA 1. Acute CVA ? Patient presented with increasing confusion as well as expressive aphasia and mild motor difficulties. MRI obtained on admission demonstrated signal abno rmality in the splenium of the corpus callosum Coliseum with differential diagnosis including demyelination versus acute ischemia. Admitted to monitored bed every 4 neurochecks ordered also ordered CTA of the head and neck in addition to consultation to telemetry neurology 2. Hypokalemia ? Corrected per protocol repeat labs ordered for monitoring 3. Coronary artery disease ? With recent PCI 4. Essential hypertension ? Patient blood pressure within acceptable levels 5. COPD ? Currently not in exacerbation aerosol treatment as needed 6. Dyslipidemia ? Patient is on atorvastatin 80 mg continue 7. Tobacco dependence - Counseled on cessation, offered nicotine patch for tobacco cravings 8. Depression with anxiety Did continue patient psychotropic medications 9. DVT prophylaxis ? [place] Lovenox Time spent in the patient's overall evaluation,decision-making process, review of diagnostic data, adjustment of management, discussion with other providers, nursing nursing and ancillary staff involved in patient's care documentation,56 Minutes Charges/Coding Visit Charges Inpatient E&M: 08847 Subs Hosp L3 Reason for Visit Reason for Visit: Diagnoses Cerebral infarction, unspecified (06/08/22)
[2022-06-09 08:26] VITALS: O2SAT 94
[2022-06-09 09:00] VITALS: BP 122/78; PULSE 56; RESP 20; TEMP 36.9; O2SAT 96
[2022-06-09 12:25] VITALS: BMI 27.3
--- NOTE | 2022-06-09 13:35 | CASEMGMT ---
RN MICHEAL Face to Face with patient for initial transition planning/care coordination assessment. RN CM introduced self and role at [facility]. Patient sitting in chair, alert and oriented. Patient willing to participate in assessment and is able to answer all questions appropriately. Care providers, pharmacy, and demographics verified. Patient wishes to discharge home with outpatient therapy. Patient states she has no further needs or concerns at this time. CM to follow for discharge planning needs that may arise. PCP: José Luis Specialists: Key materials tech Preferred Pharmacy: [facility] Insurance: [employer] Prescription Benefit: yes Living Will/HPOA: none LNOK: Living Arrangements: Patient lives with in a 2 story home. Patient states he is independent and able to ambulate stairs. Transportation: DME/HHC: Patient has [facility] at home. Denies previous HHC or SNF. CM will assist in obtained script for outpatient therapy for patient. Disposition Plan: Patient to discharge home with family support and follow-up plans in place. An VIVAS, RN, CM
--- NOTE | 2022-06-09 14:32 | CHAPLAIN ---
Type of Pastoral Visit _x__ Initial Visit ___ Follow-up Visit ___ On-call Visit ___ General Patient Visit ___ Spiritual Assessment ___ Family Conference ___ Bereavement ___ Rapid Response ___ Code Blue ___ Other (describe below) Pastoral Care Referral From _x__ Patient ___ Family ___ Nurse ___ Physician ___ Torch Heater ___ Feather Duster Winder ___ Other (describe below) Sacrament/Intervention _x__ Active listening ___ Anointing ___ Amish ___ Bereavement ___ Communion ___ Sharri exploration ___ _x__ Life review _x__ Prayer ___ Reconciliation ___ Sacrament of Sick _x__ Supportive presence ___ Wedding ___ Other (describe below) Pastoral Comments patient welcomes this student recruiter and states well I'm feeling better because they know what it is; discussion on events leading up to this admission and the necessity of getting answers for her health issue; spouse is with patient and adds his perspective of events; pt states being relieved because of the knowledge of her situation; pt welcomes presence and prayer but has no other needs
--- NOTE | 2022-06-09 14:52 | DS.PCM_ITS ---
Providers Date of Admission: 06/08/22 Date of Discharge: 06/09/22 Primary Care Physician: Dr. Lida Cool, DO Reason For Visit: CVA Diagnosis Discharge Diagnosis (1) Acute cerebrovascular accident (CVA): Status: Acute Code(s): I63.9 - Cerebral infarction, unspecified Plan Patient is a 56-year-old lady with recent PCI 2 to 3 weeks prior to admission brought to the emergency department with increasing confusion and expressive aphasia in addition to fine motor difficulties. MRI obtained demonstrated signal abnormality in the splenium of the corpus callosum Coliseum with differential diagnosis including demyelination versus acute ischemia. Admitted to a monitored bed as a case of acute CVA 1. Acute CVA ? Patient presented with increasing confusion as well as expressive aphasia and mild motor difficulties. MRI obtained on admission demonstrated signal abnormality in the splenium of the corpus callosum Coliseum with differential diagnosis including demyelination versus acute ischemia. Admitted to monitored bed every 4 neurochecks ordered also ordered CTA of the head and neck in [place] tion to consultation to telemetry neurology The echo demonstrated Normal LV size. Left ventricular systolic function is normal. The estimated ejection fraction is 65 %. Bubble contrast study is positive for PFO. ?Patient was discharged home on aspirin and Plavix. -An order was also given for patient to undergo a 30-day event monitor result to be sent to patient's patent counsel at [facility] Dr. Murray 2. Hypokalemia ? Corrected per protocol repeat labs ordered for monitoring 3. Coronary artery disease ? With recent PCI 4. Essential hypertension ? Patient blood pressure within acceptable levels 5. COPD ? Currently not in exacerbation aerosol treatment as needed 6. Dyslipidemia ? Patient is on atorvastatin 80 mg continue 7. Tobacco dependence - Counseled on cessation, offered nicotine patch for tobacco cravings 8. Depression with anxiety Did continue patient psychotropic medications 9. DVT prophylaxis ? SC Lovenox Time spent in the patient's overall evaluation,decision-making process, review of diagnostic data, adjustment of management, discussion with other providers, nursing nursing and ancillary staff involved in patient's care documentation,56 Minutes Medications at Discharge Home Medications albuterol sulfate 90 mcg/actuation aerosol inhaler 8.5 gm inhalation DAILY breathing 07/05/20 clopidogrel 75 mg tablet 75 mg PO DAILY anti platelet 07/05/20 trazodone 50 mg tablet 400 mg PO QHS sleep 07/05/20 vilazodone 40 mg tablet (Viibryd) 40 mg PO DAILY mental health 10/08/21 alirocumab 75 mg/mL subcutaneous pen injector (Praluent Pen) 75 mg subcut Q14D cholesterol 06/02/22 aspirin 81 mg tablet,delayed release 81 mg PO DAILY heart health 06/02/22 bupropion HCl 150 mg tablet,12 hr sustained-release (Wellbutrin SR) 150 mg PO DAILY mental health 06/02/22 carbamazepine 200 mg tablet (Tegretol) 400 mg PO BID seizures 06/02/22 cariprazine 1.5 mg capsule (Vraylar) 1.5 mg PO DAILY mental health 06/02/22 clonazepam 0.5 mg tablet 0.5 mg PO BID anxiety 06/02/22 isosorbide mononitrate 30 mg tablet,extended release 24 hr 30 mg PO DAILY heart 06/02/22 losartan 25 mg tablet 25 mg PO DAILY blood pressure 06/02/22 pantoprazole 20 mg tablet,delayed release 40 mg PO DAILY reflux 06/02/22 topiramate 100 mg tablet (Topamax) 100 mg PO BID seizures 06/02/22 atorvastatin 80 mg tablet 80 mg PO QHS CHOLESTEROL 06/08/22 melatonin 10 mg tablet 10 mg PO QHS SLEEP 06/08/22 metoprolol succinate 25 mg tablet,extended release 24 hr 12.5 mg PO DAILY HTN 06/08/22 nicotine 21 mg/24 hr daily transdermal patch 1 patch transdermal DAILY SMOKING CEASATION 06/08/22 Hospital Course Procedures 2-D Echocardiogram Summary of Care Provided Minutes Spent on Discharge: 35 Physical Exam Narrative GENERAL: cooperative HEENT: Atraumatic; normocephalic EYES; Anicteric, Normal Conjunctiva NECK; supple, normal thyroid, RESPIRATORY: Diminished to auscultation CARDIOVASCULAR: Regular S1 S2, GI: soft, normoactive bowel sounds, : No Renal angle tenderness; EXTREMITIES: No edema, no clubbing, MUSCULOSKELETAL: no muscle wasting NEURO: Awake; no lateralizing signs. SKIN: No Rash PSYCH; Flat affect Weight / BMI Weight Weight: 81.6 kg Body Mass Index (BMI) 27.3 ABG / Lab / Microbiology Data Result Diagrams: 06/09/22 05:48 06/09/22 05:48 Laboratory: Laboratory Results - last 24 hr 06/08/22 13:02: Magnesium 2.0 06/09/22 05:48: WBC 5.7, RBC 4.26, Hgb 12.7, Hct 39.4, MCV 92.5, MCH 29.8, MCHC 32.2, RDW Std Deviation 44.9 H, RDW Coeff of Benigno 13.5, Plt Count 163, MPV 9.5, Immature Gran % (Auto) 0.300, Neut % (Auto) 71.0 H, Lymph % (Auto) 20.1, Rincon % (Auto) 6.6, Eos % (Auto) 1.7, Baso % (Auto) 0.3, Absolute Neuts (auto) 4.1, Absolute Lymphs (auto) 1.15, Nucleated RBC % 0 06/09/22 05:48: Sodium 143, Potassium 3.9, Chloride 114 H, Carbon Dioxide 21.0, Anion Gap 8, BUN 8, Creatinine 0.82, Estim Creat Clear Calc 76.27, Est GFR (MDRD) Af Amer 94, Est GFR (MDRD) Non-Af 78, BUN/Creatinine Ratio 9.8 L, Glucose 115 H, Calcium 8.3 L, Total Bilirubin 0.30, AST 12 L, ALT 25, Alkaline Phosphatase 86, Total Protein 5.8 L, Albumin 3.0 L, Globulin 2.8, Albumin/Globulin Ratio 1.1, Triglycerides 111, Cholesterol 95, LDL Cholesterol 20, VLDL Cholesterol 22, HDL Cholesterol 53, TSH 3.39 06/09/22 05:48: Hemoglobin A1c 5.2 Radiography Diagnostic Testing: Radiology Impression Brain MRI 06/08/22 00:00 IMPRESSION: Signal abnormality in the splenium of the corpus callosum. Differential considerations include demyelination, acute ischemia, high-grade glioma. Additional considerations include encephalitis or acute disseminated encephalomyelitis (ADEM), posterior reversible encephalopathy syndrome (PRES). Limited additional T2 signal hyperintensity are nonspecific and may be due to microvascular ischemia, demyelination, vasculitis. Electronically Signed: Jacqueline Banegas MD at 17:03 EST Reading Location ID and State: [id number] / Tel , Service support , ADDENDUM: 06/08/22 [id number] IMPRESSION: Signal abnormality in the splenium of the corpus callosum. Differential considerations include demyelination, acute ischemia, high-grade glioma. Additional considerations include encephalitis or acute disseminated encephalomyelitis (ADEM), posterior reversible encephalopathy syndrome (PRES). Limited additional T2 signal hyperintensity are nonspecific and may be due to microvascular ischemia, demyelination, vasculitis. N.B. : The above Results were Read Back by Jacqueline Banegas MD to Dr. Carmen Frias MD, and understanding confirmed on 06/08/2022 18:50:08 (ET). Electronically Signed: Jacqueline Banegas MD at 17:03 EST Reading Location ID and State: [id number] / Tel , Service support , Head/Neck CTA 06/08/22 17:47 IMPRESSION: Negative CTA Carotid and CTA Brain. Electronically Signed: Jacqueline Banegas MD at 18:59 EST Reading Location ID and State: [id number] / Tel , Service support , Echocardiogram 06/08/22 21:45 Interpretation Summary Normal LV size. Left ventricular systolic function is normal. The estimated ejection fraction is 65 %. Bubble contrast study is positive for PFO. Ordering Physician: Carmen Frias Referring Physician: Francis Chatterjee M.D. Performed By: Sandra Swanson RDCS D/C Instructions Discharge Diet: No restrictions Discharge Activity: Return to Normal Activity Call your doctor if you observe: Fever of 101 or Higher, Shortness of breath, Fa inting spells and Chest pain Meaningful Use Info Meaningful Use Diagnoses (Choose all that apply): None applicable Discharge Plan Admission Admit Date/Time: 06/08/22 17:55 Attending Provider: James Hawley Primary Care Provider: Lida Cool Consulting Providers: Carmen Frias Discharge Orders/Prescriptions Prescriptions: Continued trazodone 50 MG tablet 400 mg PO QHS clopidogrel 75 MG tablet 75 mg PO DAILY albuterol sulfate 8.5 GM HFA aerosol inhaler 8.5 gm INHALATION DAILY Label Comments: INHALE 2 PUFFS BY MOUTH EVERY 6 HOURS NEEDED vilazodone [Viibryd] 40 mg Tablet 40 mg PO DAILY bupropion HCl [Wellbutrin SR] 150 mg Tablet Sustained-Release 12 Hr 150 mg PO DAILY isosorbide mononitrate 30 mg Tablet Extended Release 24 Hr 30 mg PO DAILY Hold Instructions: Resume on 06/10/22. With your patent counsel regarding when to resume clonazepam 0.5 mg Tablet 0.5 mg PO BID pantoprazole 20 mg Tablet,Delayed Release (Dr/Ec) 40 mg PO DAILY carbamazepine [Tegretol] 200 mg Tablet 400 mg PO BID losartan 25 mg Tablet 25 mg PO DAILY Hold Instructions: Resume on 06/10/22. With your patent counsel regarding when to resume topiramate [Topamax] 100 mg Tablet 100 mg PO BID Vraylar 1.5 mg Capsule 1.5 mg PO DAILY aspirin 81 mg Tablet,Delayed Release (Dr/Ec) 81 mg PO DAILY Praluent Pen 75 mg/mL Pen Injector 75 mg SUBCUT Q14D atorvastatin 80 mg tablet 80 mg PO QHS Label Comments: Take 1 tablet by mouth daily at bedtime nicotine 21 mg/24 hr Patch 24 Hour 1 patch TRANSDERMAL DAILY metoprolol succinate 25 mg tablet extended release 24 hr 12.5 mg PO DAILY Label Comments: TAKE 1/2 TABLET BY MOUTH ONCE DAILY melatonin 10 mg tablet 10 mg PO QHS Referrals / Follow Up: Lida Cool DO [Primary Care Provider] - In 1 Week Disposition Disposition (needs filled in before D/C Order can be placed): Home, Self Care Charges/Coding Visit Charges Inpatient E&M: 65635 Disch Hosp >30min
[2022-06-09 14:54] VITALS: BP 123/71; PULSE 63; RESP 20; TEMP 36.4; O2SAT 99
== END 2022-06-09 15:52 | disposition home or self-care (01) | DRG 66 ==
LOC: ED 17:51 → PCU 06-09 07:13
PROVIDERS: Admitting Provider Family Medicine; Emergency Provider Emergency Medicine; PCP Internal Medicine; Visit Provider Internal Medicine
DX: I63.431 Cerebral infarction due to embolism of right posterior cerebral artery (principal); R47.01 Aphasia; F31.9 Bipolar disorder, unspecified; J44.9 Chronic obstructive pulmonary disease, unspecified; E78.5 Hyperlipidemia, unspecified; I25.10 Atherosclerotic heart disease of native coronary artery without angina pectoris; E87.6 Hypokalemia; I10 Essential (primary) hypertension; F41.9 Anxiety disorder, unspecified; F17.210 Nicotine dependence, cigarettes, uncomplicated; R29.700 NIHSS score 0; Z95.5 Presence of coronary angioplasty implant and graft; Z79.02 Long term (current) use of antithrombotics/antiplatelets; Z79.82 Long term (current) use of aspirin; Z79.899 Other long term (current) drug therapy
CPT/HCPCS: 36415; 70450; 70496; 70498; 70553; 71045; 80048; 80053; 80061; 81001; 82962; 83036; 83735; 84443; 84484; 85025; 85610; 85730; 93005; 93308; 94668; 94762; 96125; 97802; 99252; 99285; A9575; J7030; Q9967; A4216; G0463

== ENCOUNTER 2022-10-22 09:50 | Outpatient (CLI) | payer OTHER, BC, SELFPAY ==
--- NOTE | 2022-10-22 10:04 | ECHOTEE_ITS ---
Reason For Study: POSITIVE BUBBLE STUDY ON TTE, HX CVA. Medication LUKE probe 6VT-D (SN [id number]) passed without difficulty. No complications were noted. Cetacaine Topical [place] given X3 orally. Versed 2 mg given slow IVP. Fentanyl 50 mcg given slow IVP. Zofran 4 mg given slow IVP. Performed a rapid injection of agitated mix of 9 cc saline and 1cc air to assess for atrial septal defect. Left Ventricle Normal LV size. Left ventricular systolic function is normal. The estimated ejection fraction is 60 %. No regional wall motion abnormalities noted. Right Ventricle Normal RV size. Normal systolic function. Atria Cannot rule out tiny PFO. Normal left atrium. No thrombus is detected in the left atrial appendage. Normal right atrium. Mitral Valve Normal mitral valve. Mild (1+) eccentric mitral valve insufficiency. Tricuspid Valve Normal tricuspid valve. Mild (1+) tricuspid valve insufficiency. Aortic Valve Trisinus/trileaflet aortic valve. Trivial aortic valve insufficiency. Pulmonic Valve Normal pulmonic valve. Trivial pulmonic valve insufficiency. Vessels Normal aortic root. Normal arch. Pericardium No pericardial effusion. ECHO/Echo Transesophageal (LUKE) Interpretation Summary Normal LV size. Left ventricular systolic function is normal. The estimated ejection fraction is 60 %. Cannot rule out tiny PFO. No thrombus is detected in the left atrial appendage. Ordering Physician: José Luis Stauffer Referring Physician: Lida Cool Performed By: Rashida Lozano, RDCS, RVT
[2022-10-22 11:33] LABS: Anion Gap 5 (5-15); BUN 8 mg/dL (7-18); BUN/Creat Ratio 9.3 RATIO (10-20); Calcium,Total 8.6 mg/dL (8.5-10.1); Chloride 101 mmol/L (98-107); Creatinine, Serum 0.86 mg/dL (0.55-1.02); EST Glomerular Filtration Rate 73 mL/min (>60); Est Glom Filt Rate - Afr Amer 88 mL/min (>60); Glucose 102 mg/dL (74-106); Potassium 3.4 mmol/L (3.5-5.1); Sodium Level 132 mmol/L (136-145)
== END 2022-10-22 12:46 | disposition home or self-care (01) ==
LOC: CVS 09:51
PROVIDERS: PCP Internal Medicine; Referring Provider Nurse Practitioner Family; Visit Provider Nurse Practitioner Family
DX: I63.9 Cerebral infarction, unspecified (principal); R93.1 Abnormal findings on diagnostic imaging of heart and coronary circulation; I25.10 Atherosclerotic heart disease of native coronary artery without angina pectoris
CPT/HCPCS: 36415; 80048; 93312; 93320; 93325; J7040; A4216; J2405

== ENCOUNTER 2022-11-30 15:30 | Outpatient (RCR) | payer OTHER, BC, SELFPAY ==
--- NOTE | 2022-06-23 12:50 | HP.SP.EV_ITS ---
Visit History - Visit Info Date of Eval: 06/22/22 Visit: 1 Endoscopy Tech: CHRIS - History Attending Doctor: Referring Doctor: Reason for Referral: STROKE/PT HAS RX Medical Diagnosis: Cognitive Deficits/ Language deficits Date of Onset of Diagnosis: 06/02/22 Previous speech therapy: Yes Results: In the hospital on 06/09/22. CLQT attention and visuospatial subtests were mild and language, executive function and memory with WFL. Language and executive function were *low average performance. 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 Anxiety and depression. Bipolar 1 disorder. CAD (coronary artery disease). COPD (chronic obstructive pulmonary disease). GERD (gastroesophageal reflux disease). HLD (hyperlipidemia). HTN (hypertension). Tobacco abuse Medications related to this diagnosis: trazodone 50 MG tablet. 400 mg PO QHS. clopidogrel 75 MG tablet. 75 mg PO DAILY. albuterol sulfate 8.5 GM HFA aerosol inhaler. 8.5 gm INHALATION DAILY. Label Comments: INHALE 2 PUFFS BY MOUTH EVERY 6 HOURS NEEDED. vilazodone [Viibryd] 40 mg Tablet. 40 mg PO DAILY. bupropion HCl [Wellbutrin SR] 150 mg Tablet Sustained-Release 12 Hr. 150 mg PO DAILY. isosorbide mononitrate 30 mg Tablet Extended Release 24 Hr. 30 mg PO DAILY. Hold Instructions: Resume on 06/10/22. With your creative consultant regarding when to resume. clonazepam 0.5 mg Tablet. 0.5 mg PO BID. pantoprazole 20 mg Tablet,Delayed Release (Dr/Ec). 40 mg PO DAILY. carbamazepine [Tegretol] 200 mg Tablet. losartan 25 mg Tablet. 25 mg PO DAILY. Hold Instructions: Resume on 06/10/22. With your creative consultant regarding when to resume. topiramate [Topamax] 100 mg Tablet. 100 mg PO BID. Vraylar 1.5 mg Capsule. 1.5 mg PO DAILY. aspirin 81 mg Tablet,Delayed Release (Dr/Ec). 81 mg PO DAILY. Praluent Pen 75 mg/mL Pen Injector. 75 mg SUBCUT Q14D. atorvastatin 80 mg tablet. 80 mg PO QHS. Label Comments: Take 1 tablet by mouth daily at bedtime. nicotine 21 mg/24 hr Patch 24 Hour. 1 patch TRANSDERMAL DAILY. metoprolol succinate 25 mg tablet extended release 24 hr. 12.5 mg PO DAILY. Label Comments: TAKE 1/2 TABLET BY MOUTH ONCE DAILY. melatonin 10 mg tablet. 10 mg PO QHS Smoking Status: Current every day smoker - Diagnosis Diagnosis: Mild to moderate cognitive deficits as well as mild expressive language deficits. - Pain Is pain an issue with your current prescribed condition?: No - Personal Preferred language: [place] History - History Date of Eval: 06/22/22 Medical Diagnosis (from RX): Cognitive Deficits/ Language deficits Date of Onset of Diagnosis: 06/02/22 Previous speech therapy: Yes Results: In the hospital on 06/09/22. CLQT attention and visuospatial subtests were mild and language, executive function and memory with WFL. Language and executive function were *low average performance. 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 Anxiety and depression. Bipolar 1 disorder. CAD (coronary artery disease). COPD (ch ronic obstructive pulmonary disease). GERD (gastroesophageal reflux disease). HLD (hyperlipidemia). HTN (hypertension). Tobacco abuse Medications related to this diagnosis: trazodone 50 MG tablet. 400 mg PO QHS. clopidogrel 75 MG tablet. 75 mg PO DAILY. albuterol sulfate 8.5 GM HFA aerosol inhaler. 8.5 gm INHALATION DAILY. Label Comments: INHALE 2 PUFFS BY MOUTH EVERY 6 HOURS NEEDED. vilazodone [Viibryd] 40 mg Tablet. 40 mg PO DAILY. bupropion HCl [Wellbutrin SR] 150 mg Tablet Sustained-Release 12 Hr. 150 mg PO DAILY. isosorbide mononitrate 30 mg Tablet Extended Release 24 Hr. 30 mg PO DAILY. Hold Instructions: Resume on 06/10/22. With your creative consultant regarding when to resume. clonazepam 0.5 mg Tablet. 0.5 mg PO BID. pantoprazole 20 mg Tablet,Delayed Release (Dr/Ec). 40 mg PO DAILY. carbamazepine [Tegretol] 200 mg Tablet. losartan 25 mg Tablet. 25 mg PO DAILY. Hold Instructions: Resume on 06/10/22. With your creative consultant regarding when to resume. topiramate [Topamax] 100 mg Tablet. 100 mg PO BID. Vraylar 1.5 mg Capsule. 1.5 mg PO DAILY. aspirin 81 mg Tablet,Delayed Release (Dr/Ec). 81 mg PO DAILY. Praluent Pen 75 mg/mL Pen Injector. 75 mg SUBCUT Q14D. atorvastatin 80 mg tablet. 80 mg PO QHS. Label Comments: Take 1 tablet by mouth daily at bedtime. nicotine 21 mg/24 hr Patch 24 Hour. 1 patch TRANSDERMAL DAILY. metoprolol succinate 25 mg tablet extended release 24 hr. 12.5 mg PO DAILY. Label Comments: TAKE 1/2 TABLET BY MOUTH ONCE DAILY. melatonin 10 mg tablet. 10 mg PO QHS Smoking Status: Current every day smoker Hx Tobacco Use: No - Pain Is pain an issue with your current prescribed condition?: No Patient Allergies - Allergies Allergies adhesive tape Allergy (Verified 06/02/22 05:13) Hives aspirin [ASA] Allergy (Verified 06/02/22 05:13) Other budesonide [From Symbicort] Allergy (Verified 06/02/22 05:13) Anaphylaxis formoterol [From Symbicort] Allergy (Verified 06/02/22 05:13) Anaphylaxis latex Allergy (Verified 06/02/22 05:13) Hives Penicillins [PCN] Allergy (Verified 06/02/22 05:13) Hives Objective Cog/Ling/Com - Test Administered Hhbpdxdyn-Qjghzonbpy-Abdfmaajvekcj Assessment Administered: Yes Rtkaxyqke-Nrjrugzbfx-Yxyqkxodeglfi Assessment: Cognitive ? Linguistic skills were evaluated using patient/family interview, skilled observation and informal evaluation through tasks completed by the patient. - Orientation Orientation: Person, Place, Date, Birthdate, Medical Diagnosis - Answer Yes/No Questions Simple: WNL - Conversational Tasks Conversational Tasks: Mild Comments: Patient exhibited mild word finding deficits in conversation. - Oral Reading Words: Mild Sentences: Moderate Comments: Patient was able to read single words with slow production. Sentences were read word for word rather than fluently. - Recall Comments: Patient immediately recalled 12/17 details of a short paragraph. She uses a calendar for appointments. - Medication Reading a medication label: WNL Correctly stating instructions of medications: WNL - Numerical Skills Telling Time: Patient reported that numbers are difficult for her to copy from BP monitor to paper. She stated that she has increased difficulty wiith 8,3,5. - Problem Solving Simple: WNL - Executive Function Comments Comments: Patient reported that she able to manage her own medication with the use of a pill box. She is unable to drive at this time. She reported a upper right vision field cut ( on a clock from 12-3/4). Further assessment needed for higher level skill evaluation. Plan - Plan Plan: Speech therapy is warranted for cognitive deficits and language deficits which are impacting her ability to function in her daily activities including employment, social and medical information. - Recommendations Treatment Warranted: Yes Treatment Warranted: Receptive/ Expressive Language, Cognition - Progress Prognosis: Good - Frequency Frequency: 2x /Week Duration: 2 Months Visits in this POC: 16 - Goals that are Established Determination:: Goals will be added/modified as deemed necessary and appropriate. Therapy will be discontinued when results of re-evaluation indicate therapy is no longer needed or lack of progress has been documented. - Goal #1-5 Goal #1: Josie will recall information provided in paraph graphs of increasing length and answer questions about the material at 80% accuracy given occasional cues. Goal #2: Josie will verbalize an understanding of recall strategies and use as needed with minimal cues on 4/5 trials on 2/3 consecutive sessions. Goal #3: Josie will read information in sentences and short paragraphs, either silently or out loud, for reading comprehension demonstrated by answering questions or retelling information with 80% accuracy on 2/3 consecutive sessions. Goal #4: Josie will use anomia strategies on 4/5 trials during conversation with minimal cues on 2/3 consecutive sessions. Goal #5: Further assessment for high level executive functions. Education - Patient has Indicated that the Following Identified Educational Needs: None The Patient has indicated that they have no educational or learning abilities that may effect their care.: Yes - Patient Instruction Patient Education: Diagnosis, Treatment Plan Person Taught: Patient Response to teaching: Verbalize understanding
--- NOTE | 2022-07-02 14:42 | HP.OTEVAL ---
Patient's Visit Information ERIC SETHI is a 56 year old F, referred to Occupational Therapy by Dr. Lida Cool DO, with a diagnosis of Acute CVA. Date of Evaluation: 06/22/22 Occupational Therapist: Marley Samuels - Subjective Arrived for OT evaluation, seen after speech evaluation. Referred to OT s/p a CVA, MCA. History of stents put in for cardiac reasons, she was acting loopy and confused after a stent procedure which led to more testing and eventually an MRI which indicated the MCA CVA. Admitted to hospital on Jun 08, discharged the next day on Jun 09 for CVA. 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 Lives with , 4 THE[place]ORE /c HR, split level 12 steps to go downstairs 12 steps with HR. Difficulty with reading, identifying numbers (difficulty with 3, 5, 8), memory/recall, and word finding. Has an upper right quadrant visual field cut. Saw eye doctor ~2 weeks ago and will be getting glasses. Will be seeing neurologist Wednesday06/24/22 at the [facility]. Has to be able to lift 70 pounds from the ground for work. - ADLs Comments: independent with ADL's. sleep has been impacted from the stroke - ROM ROM Comments: Upper body ROM intact - Strength Tacker Off: R 57; L 47 Lateral Pinch: R 8; L 6 Tripod Pinch: R 6; L8 Tip-to-Tip Pinch: R 5; L 6 Strength Comments: able to lift box to/from the floor with 70# weight x 6 reps with good control and body form, no LOB or c/o dizziness or light headedness - Sensation Sensation Comments: some tingling from neck down to hands - reports its worse from long days of work. Likely from nerve compression - Visual/Perceptual Skills Visual Field Cut: Yes - R upper quadrant Comments: experiencing right upper quadruant visual field cut. Awaiting glasses from the eye doctor. Currently wears reading glasses. Difficulty with understanding where she is in space both just personally and when riding in a car (she gave the example that she was concerned her was crossing the center line of the road but he wasn't) Reporting some dizziness or light headedness with position change. Able to visually track with conjugate eye movements in all visual planes. Able to complete visual saccades without overshooting or undershooting. Some difficulty with coordinating convergence/divergence. - Cognitive Skills Follows Directions: Yes Oriented to (Check all that apply): Date Short Term Memory Impaired: Yes - difficulty remembering what happended day before Cognitive Comments: uses a printed calendar to help keep track of appts. Reports she feels her cognitive processing is slower. feeling cognitively overwhelmed at times but reports not feeling confused. decreased sense of time - Nine Hole Peg Right: 24.2 Left: 25.06 Comments: R hand dominant - Quick DASH-Disab of Arm,Shoulder& Hand Quick DASH Score: 6.8175 - Goals Goal:: Patient will appropriately identify numbers in a number scramble worksheet including numbers 3, 5, and 8 with 80% accuracy on at least 3 separate occasions. Goal:: Patient will improve oculomotor coordination and strength, evidenced by completion of visual saccades worksheet with 90% accuracy on at least 3 separate occasions. Goal:: Patient will improve oculomotor strength and endurance evidenced by participation in 20 minutes of visual exercises (visual pursuits, saccades, word finds, etc) while maintaining 90% accuracy will all worksheets/exercises. - Rehabilitation General Assessment: Patient arrives s/p CVA with decreased balance, decreased memory, word recall, visual perception, and oculomotor strength and coordination. 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 She will participate in speech to address the cognition, memory, word recall, and reading. Recommend OT to address oculomotor strength and coordination and strategies to compensate for visual field cut. Send referral to PCP to request PT script. Rehabilitation Potential: Good - Anticipated Interventions A/AAROM/PROM, Fine Motor Coord/Eddie, Neuro Reeducation, ADL Training, Education re assistive Equipment - Visit Plan Frequency: 1x/Week Duration: 2 Months General Plan: recommend 1x/week 30 min sessions for 8 weeks to address oculomotor skills. May not need all 8 visits depending on progress. TEXT: Thank you for the opportunity to evaluate your patient. For Medicare and Medicare HMO plans, please review the plan of care and approve it. It will need to be FAXED BACK to us at [phone] for Medicare purposes. Please let me know if there are questions or concerns regarding this plan of care. Physician Signature: Date:
--- NOTE | 2022-09-23 10:07 | HP.PTEVAL ---
Patient's Visit Information ERIC SETHI is a 57 year old F referred to Physical Therapy by [facility] with a diagnosis of Arterial Ischemic Stroke. Date of Evaluation: 09/14/22 Physical Therapist: Grabiel Baltazar DPT - Visit Plan Frequency: 2x /Week Duration: 6 Weeks Plan: Start with BLE coordination activities. Higher level dynamic balance. Add in multiple task balance activities. Promote progressive walking program. - Subjective Pt. is here today for her initial evaluation with diagnosis of Arterial Ischemic Stroke. Pt. reports having a CVA in 2022. Pt. has been seeing OT and ST over the past few months. She is noticing increased difficulty with short term memory loss, and some visual changes. She is also having some balance issues with walking and functional mobility. She does not use an AD, but has noticed balance loss. No falls, but reports being very cautious with her mobility. She work as the [employer]. 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 Currently not driving due to her CVA. Pt does have a R sided visual cut resulting decreased R sided vision. Pt. is hopeful to regain all previous strength in order to get back to all recreational and work activities. - Objective POSTURE: Pt. has good posture in stance. PALPATION: Pt. has normal sensation in BLEs. Pt. reports no issues. NEURO: Pt. has has normal DTR of BLE. Pt. has normal sensation. Pt. has good LE proprioception and control of BLEs. ROM: Pt. has good ROM of BLEs. Pt. has slight tightness in B HS. MMT: Pt. has good strength in BLEs. Pt. has 5/5 throughout ankle and knees. 4+/5 B hips. GAIT: PT. ambulates well with some issues with changes of direction. Pt. tolerated has normal step length and good stability. - Balance/Special Test Scores Functional Gait Assessment Score: 22 % Disability: 26.6700 CATSIB Score (Max score 120 seconds): 106 Lower Extremity Functional Score: 19 TUG Test Time Seconds: 8.7 6 Minute Walk Test: 1362fee with out AD. - Goals Goal 1:: LTG: Pt. to be I with HEP. Goal Time Frame: 2-4 Weeks Goal 2:: STG: Pt. to have improved CATSIB to score of 120 indicating normal static balance. Goal Time Frame: 2-4 Weeks Goal 3:: LTG: Pt. to have improved FGA to 30/30 indicating normal dynamic balance. Goal Time Frame: 4-6 Weeks Goal 4:: LTG: Pt. to complete all work related functional activities. Goal Time Frame: 4-6 Weeks Goal 5:: LTG: Pt. to be able to walk for 10 minutes without reports of fatigue allowing for increased tolerance to work related activities. Goal Time Frame: 4-6 Weeks - Rehabilitation Potential Physical Therapy Diagnosis: Pt. has signs and symptoms consistent with CVA. She has subsequent imbalance and some coordination issues. She does have a R sided visual cut which is most likely adding to her imbalance. She would benefit from PT to work on higher level balance and multi task coordination activities. Rehabilitation Potential: Excellent - Anticipated Interventions Patient/Client Instruction: Educate patient on: Condition, Plan of Care, Risk Factors, Benefits of Fitness Program For the Purpose of:: To improve health and function, To foster healthy habits, To facilitate caregiver knowledge, To improve self management, To prevent re-injury, To improve ability to perform tasks related to life management Therapeutic Exercise to Include: Strength training, Power training, Endurance training, Balance training, Coordination, Neuromotor development For the Purpose of:: To improve nutrient delivery to tissue, To increase oxygenation perfusion, To improve muscle performance and motor function, To improve ability to perform ADL's, To increase tolerance to activity/condition/position, To improve performance and independence with ADL's, To improve health of tissue, To decrease soft tissue restriction, To increase flexibility/ROM, To improve endurance, To improve balance Thank you for the opportunity to evaluate your patient. For Medicare and Medicare HMO plans, please review the plan of care and approve it. It will need to be FAXED BACK to us at [phone] for Medicare purposes. For Medicare only, by signing this I certify the plan of care. Please let me know if there are questions or concerns regarding this plan of care. Physician Signature: Date:
--- NOTE | 2022-10-07 13:52 | HP.OTREVAL ---
[facility], It has been my pleasure to treat ERIC SETHI over the last 12 visits for Acute CVA. Please see the progress note below for an update on the occupational therapy plan of care! Subjective: Arrived early this date. Reports she had follow up with hands assembler, neurologist, and car scrubber. She reports they still can't figure out why she lost her vision. She reports feeling like her vision has not gotten any better. She reports that her processing speed and problem solving has improved with things such as sudoku puzzles. She is still experiencing R sided peripheral vision loss and reports she is still having difficulty with letters, numbers, word recall, and reading an analog clock. Discussed possibly following up with oil burner journeyman or clinical application specialist to check inner ear function due to continued report of dizziness, ringing in ear, and balance difficulties. Objective/Function: Patient continues to present with deficits in vision, balance, word recall, short term memory, reading, and identfiying letters/numbers. She reports her vision and balance issues have not improved but she feels her cognitive processing and working memory have improved some although they are still areas of challenge for her. She completed a number scramble activity this date finding number 3, then 5 with 100% accuracy in a timely manner. She then completed a visual saccades exercise in 1 min and 59 sec with 100% accuracy. She than participated in a sudoku exercise with good attention to task but decreased working memory. Plan Frequency: 1x/Week Duration: 3-6 months Visits in this POC: 90 combined PT/OT/TALENT ACQUISITION PROGRAM MANAGER Plan: Continue POC 1x/week for 3-6 months depending on progress toward goals. Recommend patient follow up with oil burner journeyman or clinical application specialist. Goals - Goals Patient Goals: Return to Work, Improve Visual/Perceptual Skills Goal:: Patient will improve short term memory, processing speed, working memory, and visual attention evidenced by ability to complete various simulated functional tasks such as reading clocks, reading comprehension, address writing and identification, etc with 80% accuracy over measured trials. Goal:: Patient will appropriately identify numbers in a number scramble worksheet including numbers 3, 5, and 8 with 80% accuracy on at least 3 separate occasions. (GOAL MET 10/07/22) Goal:: Patient will improve oculomotor coordination and strength, evidenced by completion of visual saccades worksheet with 90% accuracy on at least 3 separate occasions (GOAL MET 10/07/22). Goal:: Patient will improve oculomotor strength and endurance evidenced by participation in 20-30 minutes of visual exercises (visual pursuits, saccades, word finds, etc) while maintaining 90% accuracy will all worksheets/exercises. Anticipated Interventions Anticipated Interventions: A/AAROM/PROM, Fine Motor Coord/Eddie, Neuro Reeducation, ADL Training, Education re assistive Equipment Please do not hesitate to contact me at [phone] by phone or if you have questions or concerns regarding this new plan of care! Sincerely, Marley Samuels
--- NOTE | 2022-10-26 13:59 | HP.PTREVAL ---
[facility], It has been my pleasure to treat ERIC STEHI over the last 5 visits for Arterial Ischemic Stroke. Please see the progress note below for an update on the physical therapy plan of care! Subjective: Pt. came into PT this date and let me know she has a new diagnosis of brain cancer. She is going up to [facility]. SHe has been noticing increased dizziness and increased imbalance. Objective/Function: We talked to her today about PT. We are going to put PT on hold currently as she is getting consults on her brain tumor. Pt. is to see specialist this week to determine best course of action at this point in time. Plan Plan: PT. on hold until patient figures best course of action with her new diagnosis of brain tumor and treatment. Balance/Gait/Functional tests - Balance/Special Test Scores Functional Gait Assessment Score: 22 % Disability: 26.6700 CATSIB Score (Max score 120 seconds): 106 Lower Extremity Functional Score: 19 TUG Test Time Seconds: 8.7 Tug Test: <10 sec.=free mobile 6 Minute Walk Test: 1362fee with out AD. Goals Goal 1:: LTG: Pt. to be I with HEP. Goal Time Frame: 2-4 Weeks Goal 2:: STG: Pt. to have improved CATSIB to score of 120 indicating normal static balance. Goal Time Frame: 2-4 Weeks Goal 3:: LTG: Pt. to have improved FGA to 30/30 indicating normal dynamic balance. Goal Time Frame: 4-6 Weeks Goal 4:: LTG: Pt. to complete all work related functional activities. Goal Time Frame: 4-6 Weeks Goal 5:: LTG: Pt. to be able to walk for 10 minutes without reports of fatigue allowing for increased tolerance to work related activities. Goal Time Frame: 4-6 Weeks Anticipated Interventions Patient/Client Instruction: Educate patient on: Condition, Plan of Care, Risk Factors, Benefits of Fitness Program For the Purpose of:: To improve health and function, To foster healthy habits, To facilitate caregiver knowledge, To improve self management, To prevent re-injury, To improve ability to perform tasks related to life management Therapeutic Exercise to Include: Strength training, Power training, Endurance training, Balance training, Coordination, Neuromotor development For the Purpose of:: To improve nutrient delivery to tissue, To increase oxygenation perfusion, To improve muscle performance and motor function, To improve ability to perform ADL's, To increase tolerance to activity/condition/position, To improve performance and independence with ADL's, To improve health of tissue, To decrease soft tissue restriction, To increase flexibility/ROM, To improve endurance, To improve balance Please do not hesitate to contact me at [phone] by phone or if you have questions or concerns regarding this new plan of care! Sincerely, AMARJIT RodríguezT
--- NOTE | 2022-12-01 13:14 | HP.OTREVAL ---
Re-Evaluation Intro: [facility], It has been my pleasure to treat ERIC SETHI over the last 15 visits for Acute CVA. Please see the progress note below for an update on the occupational therapy plan of care! Subjective Subjective: Patient seen this date for re-evaluation to determine POC moving forward given medical change with brain lesion located deep middle of her brain. Patient had biopsy surgery of lesion ~5 weeks ago (November 04) and is still finishing steroids after this surgery, thru next week. They are uncertain the etiology of the brain lesion. Patient has another MRI 12/07/22 and then 12/14/22 of brain and spine. Symptoms related to visual deficits are getting worse. Objective Objective/Function: Patient continues to present with overall weakness, decreased endurance, decreased cognitive functioning, and visual deficits. She would benefit from exercise routine for overall wellness as she continues to navigate through her medical condition and further testing (within her medical restrictions related to lifting/bending etc). Working on hand eye coordination and compensation for peripheral visual loss, working visual memory/attention to task, organization of materials. Patient is experiencing upper body tremors and overall fatigue as well. R human insights lead ads marketing strength 40, L human insights lead ads marketing 21#, R hand dominant R tripod pinch 6, L tripod 6 R lateral 12, L 10 R pincer 6, L 5 9 hole peg test: R hand 28.2 sec L hand 27.6 Plan Plan Frequency: 1x/Week Duration: 3-6 months Visits in this POC: 90 combined PT/OT/MANAGER ADVANCED Plan: continue 1x/week, plan of care can be adjusted as needed considering patient's medical needs as she navigates through testing Goals Goals Patient Goals: Return to Work and Improve Visual/Perceptual Skills Goal:: Patient will demonstrate independence with compensatory techniques for visual loss and upper body tremors to assist with independence with ADL's. Goal:: Patient will be independent with simple and gentle home exercise program (within her lifting and movement restrictions) to maintain functional strength for activities of daily living. Goal:: Patient will improve visual attention and visual working memory evidenced by ability to complete various simulated functional tasks such as reading clocks, address writing and identification, etc with 80% accuracy over measured trials. Goal:: Patient will appropriately identify numbers in a number scramble worksheet including numbers 3, 5, and 8 with 80% accuracy on at least 3 separate occasions. (GOAL MET 10/07/22) Goal:: Patient will improve oculomotor coordination and strength, evidenced by completion of visual saccades worksheet with 90% accuracy on at least 3 separate occasions (GOAL MET 10/07/22). Goal:: Patient will improve oculomotor strength and endurance evidenced by participation in 20-30 minutes of visual exercises (visual pursuits, saccades, word finds, etc) while maintaining 90% accuracy will all worksheets/exercises. Anticipated Interventions Anticipated Interventions Anticipated Interventions: A/AAROM/PROM, Fine Motor Coord/Eddie, Neuro Reeducation, ADL Training and Education re assistive Equipment Re-Evaluation Ending Re-evaluation ending: Please do not hesitate to contact me at [phone] by phone or if you have questions or concerns regarding this new plan of care! Sincerely, Marley Samuels
== END 2022-11-30 19:00 | disposition home or self-care (01) ==
LOC: OT 15:30
PROVIDERS: PCP Internal Medicine
DX: I69.328 Other speech and language deficits following cerebral infarction (principal); I69.311 Memory deficit following cerebral infarction
CPT/HCPCS: 92507; 92523; 97110; 97112; 97161; 97166; 97530

== ENCOUNTER 2023-04-21 13:30 | Outpatient (RCR) | payer OTHER, BC, SELFPAY ==
--- NOTE | 2023-01-19 09:57 | HP.SPREEV_ITS ---
History History Date of Eval: 06/23/22 Attending Doctor: RAD PRO Referring Doctor: RAD PRO Smoking Status: Current every day smoker Hx Tobacco Use: No Pain Is pain an issue with your current prescribed condition?: No Personal Preferred language: Lao Patient Allergies Allergies Allergies: Allergies adhesive tape Allergy (Verified 10/20/22 11:22) Hives aspirin [ASA] Allergy (Verified 10/20/22 11:22) Other budesonide [From Symbicort] Allergy (Verified 10/20/22 11:22) Anaphylaxis formoterol [From Symbicort] Allergy (Verified 10/20/22 11:22) Anaphylaxis latex Allergy (Verified 10/20/22 11:22) Hives Penicillins [PCN] Allergy (Verified 10/20/22 11:22) Hives Previous/Current Goals Goals 1-5 Previous Goal #1: Josie will recall information provided in paragraphs of increasing length and answer questions about the material at 80% accuracy given occasional cues. Goal 1 Status: GOAL WILL BE MODIFIED: Recall of 5-8 sentences of information was 80%. Josie reported that she has always had difficulty with comprehension of information she read herself. Immediate recall is good. Delayed recall is significantly reduced. Previous Goal #2: Josie will verbalize an understanding of recall strategies and use as needed with minimal cues on 4/5 trials on 2/3 consecutive sessions. Goal 2 Status: GOAL CONTINUES: Patient was given written list of strategies and can list 1-2 independently. She does use a calendar for appointments. Goal will continue for recall of medical and personal material (due dates for paperwork, birthdays, etc). Continued cues are needed for her to use strategies. Previous Goal #3: Josie will read information in sentences and short paragraphs, either silently or out loud, for reading comprehension demonstrated by answering questions or retelling information with 80% accuracy on 2/3 consec utive sessions. Goal 3 Status: GOAL CONTINUES: Josie's accuracy is 50% with reading it out loud. Reading is often slow and halting which impacted her ability to comprehend while reading verbally. The focus was more on actually reading the words instead of comprehension. Previous Goal #4: Josie will use anomia strategies on 4/5 trials during con versation with minimal cues on 2/3 consecutive sessions. Goal 4 Status: GOAL MET. Josie no longer has word finding errors in general conversation. She stated that it happens with new people and medical topics. ( The only new people she reported was physicians). She has difficulty with medical terms and she was advised to write them down or use my chart to recall them. Initially, she had several times of anomia per session and had slower halting speech. She has hesitations in her communication that it no longer noted. Objective Cog/Ling/Com Test Administered Slxulfeih-Gfjhxqwdfw-Klfsqdxznwpyw Assessment Administered: Yes Osztsmlgu-Mvbadatdct-Olaciprtfaaud Assessment: Cognitive ? Linguistic skills were evaluated using patient/family interview, skilled observation and informal evaluation through tasks completed by the patient. Orientation Orientation: Person, Place, Date, Day, Birthdate and Medical Diagnosis Reading Comprehension Words: WNL Phrases: WNL Sentences: Mild Oral Reading Words: WNL Phrases: WNL Sentences: Mild Paragraphs: Mild Recall Repeating Words: 100% Repeating Sentences: 90% Percent recall of conversational details: 50 Comments: Delayed recall of information is significantly reduced. Medication Reading a medication label: [facility] Correctly stating instructions of medications: [facility] Completing medications independently: [facility] Problem Solving Simple: WNL CLQT CLQT CLQT Administered: Yes CLQT: Cognitive Linguistic Quick Test (CLQT) is a criterion - referenced assessment designed for adults between the ages of 18 and 89 with known or suspected neurological dysfuntions. The CLQT is to assess strength and weaknesses in five cognitive domains. Severity ratings are within normal limits, mild, moderate, severe deficits. The subtests are as follows: Date: 01/19/23 Attention Attention: Mild Memory Memory: WNL Executive Functions Executive Functions: WNL Language Language: WNL Visuospatial Skills Visuospatial Skills: Mild CLQT Comments Analysis: -: Josie has visual deficits with lateral parts of vision missing ( per the patient) which impacted her abilities on the attention and visuospatial subtests. Overall, she did well on this test. She met all the cut criterion scores except for symbol trails and mazes. Her recall was immediately done on this test. Her recall for delayed is not as good as immediate recall during daily life. Reference: Neuro-QoL instrument Radiation Oncology Patient Plan Plan Plan: Speech therapy is warranted for cognitive deficits and language deficits which are impacting her ability to function in her daily activities including employment, social and medical information. Recommendations Treatment Warranted: Yes Treatment Warranted: Receptive/ Expressive Language and Cognition Progress Prognosis: Good Frequency Frequency: 1x/Week Duration: 6 Months Visits in this POC: 24 Goals that are Established Determination:: Goals will be added/modified as deemed necessary and appropriate. Therapy will be discontinued when results of re-evaluation indicate therapy is no longer needed or lack of progress has been documented. Goal #1-5 Goal #1: Josie will recall information provided in paragraphs of increasing length and answer questions about the material at 80% accuracy given occasional cues with delays of increasing length (starting with 5 minutes and increasing time if accuracy remains good). Goal #2: Josie will verbalize an understanding of recall strategies and use as needed with minimal cues on 4/5 trials on 2/3 consecutive sessions. Goal #3: Josie will read information in 2-5 paragraphs, either silently or out loud, for reading comprehension demonstrated by answering questions or retelling information with 80% accuracy on 2/3 consecutive sessions. Goal #4: .
--- NOTE | 2023-02-08 16:00 | HP.OTDCSUM_ITS ---
Discharge Summary D/C Summary: It has been my pleasure to treat ERIC SETHI under orders from RAD PRO, for the diagnosis of Acute CVA for a total of 19 visit(s). Please see the following information for a summary of their discharge status. Overall Improvement % Improvement: 90 Objective Objective/Function: right electrician marine strength 65# increase from 57# left electrician marine strength 50# increase from 47# right lateral pinch 18# increase from 8# left lateral pinch 18# increase from 6# right tripod pinch 12# increase from 6# left tripod pinch 14# increase from 8# right tip pinch 10# increase from 5# left tip pinch 10# increase from 6# pt demo meeting goals with strength pt reports she is IND with bathing/dressing unable to drive to do dx. does carry laundry down the stairs for her due to her vison deficits. pt will initiate PT for balance. pt agrees to d/c from OT with HEP. Goals Patient Goals: Return to Work and Improve Visual/Perceptual Skills Goal:: Pt will demonstrate independence with compensatory techniques for visual loss and upper body tremors to assist with independence with ADLs. ( goal met) Goal:: Pt will be independent with simple and gentle home exercise program (within her lifting and movement restrictions) to maintain functional strength for activates of daily living, evidenced by increased electrician marine strength by 2# each hand. ( goal met) Goal:: Pt will improve visual attention and visual working memory evidenced by the ability to complete various simulated functional tasks such as reading clocks, address writing and identification, etc with 80% accuracy over measured trials. ( goal is met) Goal:: Pt will appropriately identify numbers in a number scramble worksheet including numbers 3,5, 8 with 80% accuracy on at least 3 occasions. (Goal meet 10/07/22) Goal:: Pt will improve oculomotor coordination and strength, evidenced by completion of visual saccades worksheets with 90% accuracy on at least 3 separate occasions. (Goal meet 10/07/22) Goal:: Pt will improve oculomotor strength and endurance evidenced by participation in 20-30 minutes of visual exercises (visual pursuits, saccades, word finding, ext) while maintaining 90% accuracy with all works heets/exercises. ( Plan Plan: d/c D/C Information Discharge Comments: pt was seen for 19 OT sessions- pt made gains with her strength and has learned compensatory erendira, for tremor and visual deficit. pt agrees to D/c and states she will cont. with her HEP- and will initiate PT for balance. d/c sentence: If there are questions or concerns regarding this patient's occupational therapy, please fell free to call me at [phone]. Thank you for the referral of this patient. Sincerely, Philomena Paris, OTR/L, CHT
--- NOTE | 2023-02-12 12:44 | HP.PTEVAL_ITS ---
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 Date of Evaluation: 02/12/23 Physical Therapist: Shelton Wilson, AMARJITT, OCS, CSCS Visit Plan Frequency: 3x /Week Duration: 4-6 Weeks Plan: 3x/week for 4-6 weeks 1. weight shift confidence and balance exercise to gait speed and confidence 2. overall body posture, core, LE strength ex to I gym or home based on patient desire. Energy conservation as needed and encourage appropriate diet and sleep habits and being more active generally. Subjective Subjective: CVA may and left with [place] blindness. Then they found a brain lesion and sent to [facility]. Overall balance does not feel good and weak. they are not sure what the brain lesion is but is having more MRIs and being doctored for that. Has had multiple MRIs and petscans and catscans and blood work and spinal taps. Saw recruiting coordinator and delilah is from eye problems but feels like she is getting weaker. Has 3 stents in her heart. 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 Now spends day on couch, basic of cooking and cleaning take all her strength. Bending is tough strength araujo. OT has her doing bands at home. But she gets done at grocery store adn she is worn out. Eating is going OK, getting plenty chicken protein. Sleep is OK getting 6 hrs at night and nap in afternoon for 3 hours. No leg hours. Does steps throughout day to get to bathroom. Takes vitamins. Hobbies: no energy to do anything. Objective Objective: Walks I slowly with short steps into PT . Trasnfers with UE I, steps require railing for safety. not confident shifting weight, can stoop and recover I. LB AROM WFL core strength ext 3 and flexion 3 hip strength 3+ abd and ext adn flexion with opposite IR and ROM WNL knee flexiona nd extension 4- B and ROM WFL. Ankles ROM WNL, strength 4- coordination WFL to reciprocal toe tap sensation LE WNL to gross lgiht touch. reflexes 2/3 patella and achilles Balance/Special Test Scores Functional Gait Assessment Score: 24 % Disability: 20.0000 Lower Extremity Functional Score: 43 Goals Goal 1:: Clean house without feeling warn out Goal Time Frame: 4-6 Weeks Goal 2:: Less than 1 hr nap during the day Goal Time Frame: 4-6 Weeks Goal 3:: Pt walk through grocery store without fatigue Goal Time Frame: 4-6 Weeks Goal 4:: FGA Goal Time Frame: 4-6 Weeks Goal 5:: I appropr HEP or gym program [facility] for strength and balance Goal Time Frame: 4-6 Weeks Goal 6:: 60 LEFS Rehabilitation Potential Physical Therapy Diagnosis: weakness and imbalance form sedentarism, brain lesion and stroke effecting mood and funciton/social Rehabilitation Potential: Fair Anticipated Interventions Patient/Client Instruction: Educate patient on: Condition and Plan of Care For the Purpose of:: To decrease swelling/inflammation, To improve nutrient delivery to tissue, To improve muscle performance and motor function, To increase tolerance to activity/condition/position, To improve ability of physical actions for home/community/work/leisure and To improve gait and locomotor functions Therapeutic Exercise to Include: Strength training, Balance training and Gait and locomotor training For the Purpose of:: To decrease pain, To increase ROM, To improve nutrient delivery to tissue, To improve muscle performance and motor function and To increase tolerance to activity/condition/position Text: Thank you for the opportunity to evaluate your patient. For Medicare and Medicare HMO plans, please review the plan of care and approve it. It will need to be FAXED BACK to us at [phone] for Medicare purposes. For Medicare only, by signing this I certify the plan of care. Please let me know if there are questions or concerns regarding this plan of care. Physician Signature: Date:
--- NOTE | 2023-03-19 14:57 | HP.PTREVAL ---
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 Please see the progress note below for an update on the physical therapy plan of care! Subjective Subjective: Getting better, alot. Balance is better and walking is better. Not as wobbly. Legs don not feel as noodly. Sleep is Ok and no pain. 60% better, remaining 40% is still balance. Walking faster. Knees still feel weak. Still tired with grocery shopping and climbing up steps. Able to do it though. Lives in split level. Doing LE strength 2x/week Objective Objective/Function: FGA is +1 and balance with ec and head movements is main deficits now. Steps are reciprocal with one rail. Walksing is I without AD. Subjectively improving slowly. New POC with same goals and fair prognosis. Plan Plan Plan: 2x/week for 4 weeks, pt to do exercise for strengthening I at home and we can progress as needed. Focus in PT on balance and walking with head movements and ec to emphasize vestibular . Please progress to home balance exercises and weight shifting as safety allows to accompany current home strengthening. Balance/Gait/Functional tests Balance/Special Test Scores Functional Gait Assessment Score: 25 % Disability: 16.6700 Lower Extremity Functional Score: 54 Goals Goals Goal 1:: Clean house without feeling warn out Goal Time Frame: 4-6 Weeks Goal Progress: much easier,near met. Goal 2:: Less than 1 hr nap during the day Goal Time Frame: 4-6 Weeks Goal Progress: Goal Met Goal 3:: Pt walk through grocery store without fatigue Goal Time Frame: 4-6 Weeks Goal Progress: tired. Goal 4:: FGA 28/30 Goal Time Frame: 4-6 Weeks Goal Progress: Progressing, approp. Goal 5:: I appropr HEP or gym program [facility] for strength and balance Goal Time Frame: 4-6 Weeks Goal Progress: strength, not balance Goal 6:: 60 LEFS Goal Progress: Progressing Anticipated Interventions Anticipated Interventions Patient/Client Instruction: Educate patient on: Condition and Plan of Care For the Purpose of:: To decrease swelling/inflammation, To improve nutrient delivery to tissue, To improve muscle performance and motor function, To increase tolerance to activity/condition/position, To improve ability of physical actions for home/community/work/leisure and To improve gait and locomotor functions Therapeutic Exercise to Include: Strength training, Balance training and Gait and locomotor training For the Purpose of:: To decrease pain, To increase ROM, To improve nutrient delivery to tissue, To improve muscle performance and motor function and To increase tolerance to activity/condition/position Re-Evaluation Ending Re-evaluation ending: Please do not hesitate to contact me at [phone] by phone or if you have questions or concerns regarding this new plan of care! Sincerely, Shelton Wilson, DPT, OCS, CSCS
--- NOTE | 2023-03-24 17:25 | HP.SP.DC_ITS ---
ST Discharge Summary Discharged: Discharge: Josie Landis is discharged from [facility] as of March 15, 2023 She was evaluated on June 23, 2022. She was treated for 26 sessions for cognitive deficits following her CVA. She was then diagnosed with brain lesions during the course of her therapy. Her goals focused on recalling information, recall strategies, reading comprehension tasks, and anomia strategies. During the course of therapy, she was able to learn and use recall strategies which increased her recall of information. She progressed to using a calendar as well as writing important information down to review/recall as needed. She can recall most things (80% of material) in 5 minutes and 60% in 15 minutes for specific details. Josie verbalized 3 strategies that can help her recall more information later. She continues to have mild anomia but is able to use strategies such as describing to get past it to continue communication. Her reading comprehension is impacted by her visual deficits which are a last effect from her CVA. She was able to read two paragraphs and recall main details to show comprehension. At the time of discharge, she had read a chicken soup for the soul book in less than 5 days. She continues to have difficulty in specific areas (ex- filling out complex forms) and her daughter is able to help with these tasks. Josie agreed with discharge at this time. Please see notes for complete information. Thank you for allowing me to participate in the care of this patient.
--- NOTE | 2023-04-21 14:22 | HP.PTDCSUM ---
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 Discharge Date: 04/21/23 Please see the following information for a summary of their discharge status. Subjective Subjective: This is the last visit. ia m doing exerciuses at home fairly well and consistent. Still difficulty bending my knees but they are shot. Sleeping well.. Not alot of pain, sometimes L ITB and is rolling and stretching at home. Acttivities at home are going well, avoids lifting heavy because of cardio, careful on steps with basket but can do them. Modifies to light basket. Basic ADLS are I. Got a new puppy and can take care of it. Not going back to work because of this. To doctor next week. Doing exercises. Balance is better as she is careful. No falls. No AD needed. Pain LBP: Pain Intensity (Out of 10): 0 Overall Improvement % Improvement: 90 Objective Objective/Function: reevaluation of FGa, goals, subjective, educate on progress and need to cotninue HEP 6x/week. Goals Goal 1:: Clean house without feeling warn out Goal Progress: Progressing Goal 2:: Less than 1 hr nap during the day Goal Progress: Goal Met Goal 3:: Pt walk through grocery store without fatigue Goal Progress: Progressing Goal 4:: FGA Goal Progress: Goal Met Goal 5:: I appropr HEP or gym program [facility] for strength and balance Goal Progress: Goal Met Goal 6:: 60 LEFS Goal Progress: Goal Met Plan Plan: Walking normal without gait deviation or balance deficits. Good funcitonal strength on steps.Excellent attitude adn will continue via HEP D/C Information d/c sentence: If there are questions or concerns regarding this patient's physical therapy, please feel free to call me at [phone]. Thank you for the referral of this patient. Sincerely, Shelton Wilson, DPT, OCS, CSCS Balance/Gait/Functional tests Balance/Special Test Scores Functional Gait Assessment Score: 29 % Disability: 3.3400 Lower Extremity Functional Score: 66 Improvement % Improvement: 90
== END 2023-04-21 19:00 | disposition home or self-care (01) ==
LOC: PT 13:30
PROVIDERS: PCP Internal Medicine
DX: Z86.73 Personal history of transient ischemic attack (TIA), and cerebral infarction without residual deficits (principal)
CPT/HCPCS: 92507; 97110; 97129; 97130; 97162; 97164; 97530

== ENCOUNTER 2023-10-06 11:30 | Outpatient (RCR) | payer OTHER, BC, SELFPAY ==
--- NOTE | 2023-07-19 13:45 | HP.PTEVAL_ITS ---
Patient's Visit Information Visit Information Visit Information: ERIC SETHI is a 57 year old F referred to Physical Therapy by NOEMI GUEVARA DO with a diagnosis of L greater trochanter bursitis and L IT Band syndrome. Date of Evaluation: 07/15/23 Physical Therapist: Grabiel Baltazar DPT Visit Plan Frequency: 2x /Week Duration: 6 Weeks Plan: Start with IT band , piriformis stretching, foam rolling to IT band and glute medius. 2) US if needed to greater trochanter, closer to glute med insertion. 3) Gluteus medius strengthening Subjective Subjective: Pt. is here today for her initial evaluation with diagnosis of L greater trochanter bursitis and L IT Band syndrome. Pt. reports having pain for a while now. She reports no mech of injury. Pt. denies back pain. Pt. is in her gluteal region that goes down her leg a bit. Pt. reports doing some stretching, but still having issues. She has had manual techniques and with foam rolling. Pt. reports increased pain with standing, walking, stairs, and also lying on her L side while sleeping. Pt. is hopeful to reduce symptoms in order to complete all ADLs without limitations. Pain L IT band: Pain Intensity (Out of 10): 2 Pain Intensity Range: 0 and 5 Objective Objective: POSTURE: Pt. has rounded shoulders and slightly forward flexed posture. PALPATION: Pt. has marked tenderness at L greater trochanter and posterior to this. Pain along IT band as well. NEURO: normal sensation to light and sharp touch. ROM: Pt. has tightness at L IT band, + Obers test for tightness, tight HS. LUMBAR SPINE: flexion min loss increase NW, ext min/mod loss decrease NB, SB min loss bilat NE, rotation min loss bilat NE. MMT: 5/5 throughout, except hip abd 4/5 increase NW, ER 4/5 on L side. RLE 5/5 throughout. Core strength: poor+. GAIT: Pt. ambulates with slight fwrd flexed posture, slight lateral hip sway, no true trendelemburg noted. Special Tests L Hip Scour: Negative L Hip Trendelenberg - Glut Medius: Negative L Hip Tray - IT Band: Positive Comment: slight lateral sway, no true trendelenburg Balance/Special Test Scores Lower Extremity Functional Score: 40 Goals Goal 1:: LTG: Pt. to be I with HEP for IT band stretching and glute medius strengthening Goal Time Frame: 4-6 Weeks Goal 2:: STG: Pt. to be able to sit without increase in posterior L leg pain. Goal Time Frame: 2-4 Weeks Goal 3:: LTG: Pt. to have a - tray's test indicating increased IT band length. Goal Time Frame: 4-6 Weeks Goal 4:: LTG: Pt. to be able to ambulate without increased in L lateral leg pain. Goal Time Frame: 4-6 Weeks Goal 5:: LTG: Pt. to resume all recreational activities without increase in symptoms. Goal Time Frame: 4-6 Weeks Rehabilitation Potential Physical Therapy Diagnosis: Pt. has signs and symptoms consistent with L greater trochanter bursitis and L IT Band syndrome. Pt. has marked IT band tightness and pain at L greater trochanter. Pt. did have some relief with stretching and manual techniques. She also has some posterior HS pain that seems to follow extension progression. Rehabilitation Potential: Excellent Anticipated Interventions Patient/Client Instruction: Educate patient on: Condition, Plan of Care, Risk Factors and Benefits of Fitness Program For the Purpose of:: To improve decision making, To facilitate caregiver knowledge, To improve self management, To prevent re-injury, To improve ability to perform tasks related to life management and To improve tolerance to ADL's Therapeutic Exercise to Include: Strength training, Power training, Endurance training, Balance training, Postural training, Flexibilty training, Gait and locomotor training, Passive ROM, Active ROM, Dynamic Lumbar Stabilization and Ying Exercises For the Purpose of:: To decrease pain, To increase ROM, To improve nutrient delivery to tissue, To increase oxygenation perfusion, To improve muscle performance and motor function, To improve ability to perform ADL's, To improve health of tissue, To decrease soft tissue restriction and To increase flexibility/ROM Manual Therapy Techniques to Include: Mobilization, Functional dry needling and Soft tissue mobilization For the Purpose of:: To decrease pain, To increase ROM, To improve nutrient delivery to tissue, To increase oxygenation perfusion, To improve muscle performance and motor function, To improve ability to perform ADL's, To increase tolerance to activity/condition/position, To decrease soft tissue restriction and To increase flexibility/ROM Ultrasound (thermal/non thermal): Yes For the Purpose of:: To decrease pain, To decrease swelling/inflammation and To increase ROM Text: Thank you for the opportunity to evaluate your patient. For Medicare and Medicare HMO plans, please review the plan of care and approve it. It will need to be FAXED BACK to us at [phone] for Medicare purposes. For Medicare only, by signing this I certify the plan of care. Please let me know if there are questions or concerns regarding this plan of care. Physician Signature: Date:
--- NOTE | 2023-08-19 10:37 | HP.PTREVAL ---
Re-Evaluation Intro: NOEMI GUEVARA, , It has been my pleasure to treat ERIC SETHI over the last 9 visits for L greater trochanter bursitis and L IT Band syndrome. Please see the progress note below for an update on the physical therapy plan of care! Subjective Subjective: Pt. reports come tightness but overall better. She still has some issues with getting up and down, but walking is better. Pt. reports being 50% better overall. Objective Objective/Function: ROM: Pt. has good hip ROM, but has marked tightness in L IT band, L Piriformis, L quad and L hip flexor. + obers test for tightness. MMT: Pt. has improved LLE strength. LLE: hip flexion 18.4#, abd 17.4#, ext 12.4#. RLE: flexion 23.8#, abd 22.3#, ext 15.4#. GAIT: pt. tends to walk in slight crouched pattern. She has limited hip extension past neutral bilaterally. STAIRS: Good mechanics slight increased in L pain during L stance leg. I would like to add in hip extensor stretching to allow for a better gait pattern then progressing to glute strengthening to stabilize. Plan Plan Plan: Extended POC for x2 per week for 1) continue with IT band stretching, add in hip flexor and piriformis stretching 2) foam rolling for inhibition of above musculature. 2) add in glute medius and karissa strengthening to aid in stability during SLS activities. Balance/Gait/Functional tests Balance/Special Test Scores Lower Extremity Functional Score: 38 Goals Goals Goal 1:: LTG: Pt. to be I with HEP for IT band stretching and glute medius strengthening Goal Time Frame: 4-6 Weeks Goal Progress: Progressing Goal 2:: STG: Pt. to be able to sit without increase in posterior L leg pain. Goal Time Frame: 2-4 Weeks Goal Progress: Goal Met Goal 3:: LTG: Pt. to have a - tray's test indicating increased IT band length. Goal Time Frame: 4-6 Weeks Goal Progress: Progressing Goal 4:: LTG: Pt. to be able to ambulate without increased in L lateral leg pain. Goal Time Frame: 4-6 Weeks Goal Progress: Progressing Goal 5:: LTG: Pt. to resume all recreational activities without increase in symptoms. Goal Time Frame: 4-6 Weeks Goal Progress: Progressing Anticipated Interventions Anticipated Interventions Patient/Client Instruction: Educate patient on: Condition, Plan of Care, Risk Factors and Benefits of Fitness Program For the Purpose of:: To improve decision making, To facilitate caregiver knowledge, To improve self management, To prevent re-injury, To improve ability to perform tasks related to life management and To improve tolerance to ADL's Therapeutic Exercise to Include: Strength training, Power training, Endurance training, Balance training, Postural training, Flexibilty training, Gait and locomotor training, Passive ROM, Active ROM, Dynamic Lumbar Stabilization and Ying Exercises For the Purpose of:: To decrease pain, To increase ROM, To improve nutrient delivery to tissue, To increase oxygenation perfusion, To improve muscle performance and motor function, To improve ability to perform ADL's, To improve health of tissue, To decrease soft tissue restriction and To increase flexibility/ROM Manual Therapy Techniques to Include: Mobilization, Functional dry needling and Soft tissue mobilization For the Purpose of:: To decrease pain, To increase ROM, To improve nutrient delivery to tissue, To increase oxygenation perfusion, To improve muscle performance and motor function, To improve ability to perform ADL's, To increase tolerance to activity/condition/position, To decrease soft tissue restriction and To increase flexibility/ROM Ultrasound (thermal/non thermal): Yes For the Purpose of:: To decrease pain, To decrease swelling/inflammation and To increase ROM Re-Evaluation Ending Re-evaluation ending: Please do not hesitate to contact me at [phone] by phone or if you have questions or concerns regarding this new plan of care! Sincerely, Grabiel Baltazar DPT
--- NOTE | 2023-09-15 10:58 | HP.PTREVAL ---
Re-Evaluation Intro: NOEMI GUEVARA, , It has been my pleasure to treat ERIC SETHI over the last 14 visits for L greater trochanter bursitis and L IT Band syndrome. Please see the progress note below for an update on the physical therapy plan of care! Subjective Subjective: Pt. reports being 90% better overall. She still gets stiff at times and towards the end of the week she is more sore. Pt. pleased with progress. No pain currently. Objective Objective/Function: Negative obers test Pt. has good ROM of L hip, no increase in symptoms. A little tightness reported with end range H add of L hip. STAIRS: normal without increase in symptoms. MMT: Pt. has equal strength throughout, except slight decrease in L hip abduction (4+/5) , RLE 5/5 gait: fairly normal gait pattern without increase in symptoms. PT. also reports having overall decreased B knee pain with all functional mobility. Pt's symptoms are almost all gone, only complaint is with prolonged sitting. Pt. to complete HEP on her own for the next two weeks to trial to self manage at this point in time. If symptoms come back we will address at that point in time. If doing well I will DC. Plan Plan Plan: Pt. to complete HEP on her own for 2 weeks. Pt. to cancel her last appointment if all is going well. Balance/Gait/Functional tests Balance/Special Test Scores Lower Extremity Functional Score: 58 Goals Goals Goal 1:: LTG: Pt. to be I with HEP for IT band stretching and glute medius strengthening Goal Time Frame: 4-6 Weeks Goal Progress: Goal Met Goal 2:: STG: Pt. to be able to sit without increase in posterior L leg pain. Goal Time Frame: 2-4 Weeks Goal Progress: Goal Met Goal 3:: LTG: Pt. to have a - tray's test indicating increased IT band length. Goal Time Frame: 4-6 Weeks Goal Progress: Goal Met Goal 4:: LTG: Pt. to be able to ambulate without increased in L lateral leg pain. Goal Time Frame: 4-6 Weeks Goal Progress: Goal Met Goal 5:: LTG: Pt. to resume all recreational activities without increase in symptoms. Goal Time Frame: 4-6 Weeks Goal Progress: Goal Met Anticipated Interventions Anticipated Interventions Patient/Client Instruction: Educate patient on: Condition, Plan of Care, Risk Factors and Benefits of Fitness Program For the Purpose of:: To improve decision making, To facilitate caregiver knowledge, To improve self management, To prevent re-injury, To improve ability to perform tasks related to life management and To improve tolerance to ADL's Therapeutic Exercise to Include: Strength training, Power training, Endurance training, Balance training, Postural training, Flexibilty training, Gait and locomotor training, Passive ROM, Active ROM, Dynamic Lumbar Stabilization and Ying Exercises For the Purpose of:: To decrease pain, To increase ROM, To improve nutrient delivery to tissue, To increase oxygenation perfusion, To improve muscle performance and motor function, To improve ability to perform ADL's, To improve health of tissue, To decrease soft tissue restriction and To increase flexibility/ROM Manual Therapy Techniques to Include: Mobilization, Functional dry needling and Soft tissue mobilization For the Purpose of:: To decrease pain, To increase ROM, To improve nutrient delivery to tissue, To increase oxygenation perfusion, To improve muscle performance and motor function, To improve ability to perform ADL's, To increase tolerance to activity/condition/position, To decrease soft tissue restriction and To increase flexibility/ROM Ultrasound (thermal/non thermal): Yes For the Purpose of:: To decrease pain, To decrease swelling/inflammation and To increase ROM Re-Evaluation Ending Re-evaluation ending: Please do not hesitate to contact me at [phone] by phone or if you have questions or concerns regarding this new plan of care! Sincerely, Grabiel Baltazar DPT
== END 2023-10-06 19:00 | disposition home or self-care (01) ==
LOC: PT 11:30
PROVIDERS: PCP Internal Medicine; Referring Provider Orthopaedic Surgery; Visit Provider Orthopaedic Surgery
DX: M70.62 Trochanteric bursitis, left hip (principal); M76.32 Iliotibial band syndrome, left leg
CPT/HCPCS: 97110; 97140; 97161; 97530

== ENCOUNTER → 2023-10-27 | Outpatient (CLI) | payer OTHER, BC, SELFPAY ==
--- NOTE | 2023-10-27 07:28 | BI_ITS ---
MAMMOGRAPHY - BILATERAL SCREENING REASON FOR EXAM: Female, 58 years old. Routine annual screening examination. PERTINENT HISTORY: Non-contributory. TECHNIQUE: Digital bilateral breast archie (3D mammographic acquisition) in the CC and MLO projections. 2-D mediolateral oblique (MLO) and craniocaudad (CC) views of both breasts were obtained. CAD: Full Field Digital Mammography with Computer Added Detection was performed. COMPARISON: Comparison is made with prior study dated March 25, 2022 and March 24, 2021. FINDINGS: Breast Composition: The breasts are heterogeneously dense, which may obscure small masses. There are no dominant masses or suspicious calcifications. Stable benign-appearing bilateral axillary lymph nodes. No other significant abnormalities are identified. There has been no significant change since the prior study. BI/SCRN MAMM (CAD)W/ARCHIE BILAT IMPRESSION: Stable bilateral screening mammogram. Yearly follow-up mammogram recommended. (A) ASSESSMENT CATEGORY: BIRADS Category 2: Benign. A letter regarding these results will be sent to the patient by the facility within 30 days. Approximately 10% of breast cancers are not detected by mammography. A normal mammogram should not delay biopsy of a clinically suspicious abnormality. [id number] Electronically Signed: Meliton Barrios MD at 8:34 EDT ,
== END | disposition home or self-care (01) ==
LOC: OPBI 07:28
PROVIDERS: PCP Internal Medicine; Referring Provider Internal Medicine; Visit Provider Internal Medicine
DX: Z12.31 Encounter for screening mammogram for malignant neoplasm of breast (principal)
CPT/HCPCS: 77063; 77067

== ENCOUNTER → 2024-11-24 | Outpatient (CLI) | payer OTHER, BC, SELFPAY ==
[2024-11-24 10:24] LABS: Hematocrit 38.9 % (37-47); Hemoglobin 12.1 g/dL (12.0-15.0); Immature Granulocytes Count 0.050 X10^3/uL (0.0-0.0); Mean Corp Hgb Conc 31.1 g/dL (32-36); Mean Corpuscular Volume 73.7 fL (81-99); Mean Platelet Vol. 8.3 fl (6.2-12.0); NRBC Flagged by Analyzer 0 % (0-5); Platelet Count 245 K/mm3 (150-450); RBC Distribution Width CV 17.1 % (11.6-14.6); RBC Distribution Width SD 44.9 fl (35.1-43.9); Red Blood Count 5.28 M/mm3 (4.2-5.4); White Blood Count 7.7 K/mm3 (4.4-11.0)
[2024-11-24 11:09] LABS: AST(SGOT) 16 U/L (<=31); Alanine Aminotransfer ALT/SGPT 16 U/L (<=34); Albumin, Serum 4.1 g/dL (3.5-5.0); Alkaline Phosphatase 112 U/L (35-104); Anion Gap 10 (5-15); BUN 8 mg/dL (4-19); BUN/Creat Ratio 9.9 RATIO (10-20); Calcium,Total 9.3 mg/dL (7.6-11.0); Carbon Dioxide 26.0 mmol/L (21.0-32.0); Chloride 97 mmol/L (98-108); Cholesterol 125 mg/dL (<=200); Globulin 2.8 g/dL (2.2-4.2); Glucose 89 mg/dL (70-99); Low Density Lipoprotein Calc. 55 mg/dL; Magnesium 2.0 mg/dL (1.5-2.2); Potassium 4.4 mmol/L (3.3-5.1); Triglycerides 81 mg/dL; Very Low Density Lipoprotein 16 mg/dL (5-40); cholesterol:hdl ratio screen 2.32
[2024-11-24 11:15] LABS: Pro- Brain NATRIURETIC PEPTIDE < 36 pg/mL (<=900)
== END | disposition home or self-care (01) ==
PROVIDERS: PCP Internal Medicine; Referring Provider Student in an Organized Health Care Education/Training Program; Visit Provider Student in an Organized Health Care Education/Training Program
DX: E78.5 Hyperlipidemia, unspecified (principal); I10 Essential (primary) hypertension; R06.09 Other forms of dyspnea; R00.2 Palpitations
CPT/HCPCS: 36415; 80053; 80061; 83735; 83880; 84443; 85025

== ENCOUNTER → 2024-12-19 | Outpatient (CLI) | payer OTHER, BC, SELFPAY ==
--- OUTSIDE RECORDS SUMMARY | 2024-12-19 07:03 | XMS RPT_ITS | CCD ---
Author Organization [facility] Care Team Providers Care Theatre Program Director Name Role Phone Yakovmarco antonioMichael friedman Unavailable Unavailable Framarco antonioa Unavailable Unavailable Mameelder Unavailable Unavailable Michael Clement Unavailable Unavailable Solis Cool Unavailable Sydney Waldemar M Unavailable Gravius, Shonna Unavailable Unavailable Unavailable Unavailable Tio Patrick Unavailable Unavailable Tio Kirkpatrick Unavailable Unavailable Ciesa, Citlali Unavailable Radha Mcadams Unavailable Unavailable Leta, Teagan Unavailable Unavailable Slarb, Rachel Unavailable Unavailable Sibilia, Berto Unavailable Solis Cool DO Unavailable Tio Kirkpatrick LPN Unavailable Unavailable Slarb INTEGRATION DEVELOPER, Rachel Unavailable Unavailable Abbe INTEGRATION DEVELOPER, Radha Unavailable Unavailable Ciesa TECHNOLOGY MANAGER, Citlali Unavailable Gravius CAN TOP SETTER, Shonna Unavailable Unavailable Leta INTEGRATION DEVELOPER, Teagan Unavailable Unavailable Unavailable Unavailable Lulú Merrill MA Unavailable Unavailable Travon FARRELL Solis Unavailable Ciesa, Paula Unavailable Ciesa, Paula Unavailable Dr. Raymond Pitts Unavailable Dr. Solis Cool Primary Care Provider [phone] Dr. Keyur Palmer Emergency Provider Dr. Carmen Frias Admit Provider [phone] Carmen Frias Attending Provider [phone] Dr. Carmen Frias Other Provider Dr. William Shine Attending Provider Dr. Juan Daniel River Emergency Provider [phone] Blayne Hawley Attending Provider Unavailable Chandan, Dr. Ramirez Other Provider Unavailable Marcia DE, Kayela Unavailable Unavailable Corrie Alvares Unavailable Solis Cool DO Primary Care Provider CAMMIE SHEEHAN, Elder Salazar Admitting Unavailab riley BONDS MD, Elder Salazar Attending Unavailab le SOLIS COOL Primary Care Unavailable BERTO LOPEZ DO Consulting Unavailable Mary [phone], Berto [phone] Co nsulting Unavailable RENA SHEEHAN, ALONA Lucas Consulting Unavailable BURK DO, RUSH K Consulting Unavailable MANTELL DIRECTOR [employer], CORRIE Cramer Consulting Unavailab riley BONDS MD, Elder Salazar Consulting Unavailab SOLIS Jarrell Consulting Unavailable SOLIS COOL Primary Care Unavailable SOLIS COOL Consulting Unavailable SYDNEY, WALDEMAR M Admitting Unavailable SYDNEY, WALDEMAR M Attending Unavailable SYDNEY, WALDEMAR M Consulting Unavailable MANTELL DIRECTOR [employer] NURSING, CORRIE Cramer Attending Unavailab le MANTELL DIRECTOR [employer]UR[employer], CORRIE Cramer Admitting Unavailab le TRAVONSOLIS Consulting Unavailable SOLIS COOL Primary Care Unavailable MANTELL DIRECTOR [employer] NUR[employer], CORRIE Cramer Attending Unavailab le MANTELL DIRECTOR [employer]UR[employer], CORRIE Cramer Admitting Unavailab le SOLIS COOL Primary Care Unavailable MANTELL DIRECTOR [employer]UR[employer], CORRIE Cramer Consulting Unavailab le TRAVONSOLIS Consulting Unavailable MANTELL DIRECTOR [employer]URSING, CORRIE Cramer Consulting Unavailab le MANTELL DIRECTOR [employer]UR[employer], CORRIE Cramer Attending Unavailab le TRAVONSOLIS MOODY Primary Care Unavailable MANTELL DIRECTOR [employer]UR[employer], CORRIE Cramer Admitting Unavailab le SOLIS COOL Consulting Unavailable William Shine MD Unavailable Solis Cool DO Attending Unavailable Solis Cool DO Consulting Unavailable Araalvaro FARRELL Rad Unavailable Dr. Solis Cool Primary Care Provider Dr. Solis Cool Referring Provider [facility] APPRENTICESHIP TRAINING REPRESENTATIVE, APPRENTICESHIP TRAINING REPRESENTATIVE-C José Luis Ortiz Attending Provider Dr. William Shine Attending Provider Travon FARRELL, Solis Avalos Primary Care Provider Olivier PACKING AND FINAL ASSEMBLY SUPERVISOR, Christine Unavailable Unavailable John INTEGRATION DEVELOPER, Fran Unavailable Unavailable Travon FARRELL, Solis Avalos Primary Care Provider SOLIS COOL Primary Care Unavailab URI Bailey Attending Unavailable LIBERTAD SANTIAGO Attending Unavailable TRAVON, SOLIS AVALOS Primary Care Unavailab le Belmond PACKING AND FINAL ASSEMBLY SUPERVISOR, Christine Unavailable Unavailable Aradine DOLaverneRad Unavailable Unavailabl e ANNAMARIA TEMPLETON Attending Unavailable TRAVON, SOLIS AVALOS Primary Care Unavailab le HUIZAR-ARMSTRONG, CODIE Referring Unavaila ble WARBELNENA Referring Unavailable SOLIS COOL Primary Care Unavailab le TRAVON, SOLIS AVALOS Primary Care Unavailab le LIBERTAD SANTIAGO Referring Unavailable NEME LYUDMILAANTE, TANIA Attending Unavailabl e TRAVON, SOLIS AVALOS Primary Care Unavailab ANNAMARIA Hunter Referring Unavailable HUIZAR-ARMSTRONG, CODIE Attending Unavaila ble SELF Referring Unavailable TRAVONSOLIS MOODY Primary Care Unavailab le TRAVON, SOLIS AVALOS Primary Care Unavailab le NEME MERCANTE, TANIA Attending Unavailabl e TRAVONSOLIS Primary Care Unavailab le NEME MERCANTE, TANIA Referring Unavailabl e TRAVONSOLIS Primary Care Unavailab le HUIZAR-ARMSTRONG, CODIE Referring Unavaila ble TRAVONSOLIS Primary Care Unavailab le HUIZAR-ARMSTRONG, CODIE Referring Unavaila ble HUIZAR-ARMSTRONG, CODIE Attending Unavaila ble TRAVONSOLIS MOODY Primary Care Unavailab le HUIZAR-ARMSTRONG, CODIE Referring Unavaila ble TRAVON, SOLIS AVALOS Primary Care Unavailab le HUIZAR-ARMSTRONG, CODIE Attending Unavaila ble HUIZAR-ARMSTRONG, CODIE Referring Unavaila ble TRAVON, SOLIS AVALOS Primary Care Unavailab le HUIZAR-ARMSTRONG, CODIE Referring Unavaila ble Travon FARRELL, Dr. Hilton Primary Care Provider [phone] Dr. Solis Cool DO Referring Provider Russ Anderson Attending Provider Russ Anderson Referring Provider Russ Sutherland Attending Unavailable Solis Cool Referring Unavailable Solis Cool Primary Care Unavailable Russ Sutherland Attending Unavailable Russ Sutherland Referring Unavailable Solis Cool Primary Care Unavailable Russ Sutherland Attending Unavailable Russ Sutherland Referring Unavailable Solis Cool Primary Care Unavailable Allergies Allergy Classification Reported Allergen(s) Allergy Type Date of Onset Reaction(s) Facility Aspirin (1 source) Aspirin Drug Allergy 10-09-19 Other: See Comments [facility] Budesonide / formoterol (7 sources) Budesonide / formoterol; Translations: [Symbicort *ANTIASTHMATIC AND BRONCHODILATOR AGENTS*] Drug Allergy 06-24-19 23 Other: See Comments [facility] Work Phone: Corticosteroids (1 source) Budesonide Drug Allergy 10-09-19 Other: See Comments [facility] formoterol (1 source) formoterol Drug Allergy 10-09-19 Other: See Comments [facility] Latex (1 source) Latex Substance Allergy 10-09-19 Other: See Comments [facility] Penicillins (antibiotic) (1 source) Penicillins Drug Allergy 10-09-19 Other: See Comments [facility] (20 sources) Budesonide / formoterol; Translations: [Symbicort *ANTIASTHMATIC AND BRONCHODILATOR AGENTS*] Drug Allergy 06-24-19 23 Other: See Comments [facility] Work Phone: (1 source) Adhesive Tape Allergy to substance 10-09-19 [facility] Work Phone: (20 sources) Aspirin; Translations: [ASPIRIN] Drug Allergy 10-09-19 Other: See Comments [facility] (20 sources) Budesonide; Translations: [BUDESONIDE] Drug Allergy 10-09-19 Other: See Comments [facility] (20 sources) formoterol; Translations: [FORMOTEROL] Drug Allergy 10-09-19 Other: See Comments [facility] (20 sources) Latex; Translations: [LATEX] Allergy to substance 10-09-19 Other: See Comments [facility] (20 sources) Penicillins; Translations: [Penicillins] Allergy to substance 10-09-19 Other: See Comments [facility] (10 sources) Adhesive Tape; Translations: [adhesive tape] Allergy to substance 11-20-19 Hives [facility] (20 sources) Adhesive Tape-Silicones; Translations: [ADHESIVE TAPE-SILICONES] Drug Allergy 10-09-19 Other: See Comments [facility] (1 source) Aspirin Drug Allergy [facility] (1 source) Budesonide / formoterol Drug Allergy [facility] (1 source) Latex Drug allergy (disorder) [facility] (3 sources) Budesonide / formoterol; Translations: [BUDESONIDE-FORMO TEROL] Drug Allergy 06-24-19 [facility] Other [place] [facility] (1 source) Aspirin Drug Allergy 11-25-19 [facility] (1 source) Budesonide Drug Allergy 11-25-19 [facility] (1 source) formoterol Drug Allergy 11-25-19 [facility] (1 source) Latex Drug allergy (disorder) 11-25-19 [facility] Medications Current Medications Medication Drug Class(es) Dates Sig (Normalized) Sig (Original) acetaminophen 325 mg oral capsule (20 sources) Start: 11-24-2024 take 2 capsules by mouth once as needed Acetaminophen 325 mg capsule Active 650 mg PO ONCE as needed November 24, 2024 12:00am Start: 11-05-2022 take 2 tablets enter al route every four hours as needed acetaminophen (TYLENOL) 325 mg tablet 2 tablets by ORAL/FEEDING TUBE route every 4 hours as needed for pain. 11/05/2022 Active Start: 11-05-2022 take 2 tablets by mo uth every four hours as needed acetaminophen (TYLENOL) 325 mg tablet 2 tablets by ORAL/FEEDING TUBE route every 4 hours as needed for pain. 0 11/05/2022 Suspended Comment on above: 2 tablets by ORAL/FE EDING TUBE route every 4 hours as needed for pain. 24 hr buPROPion hydrochloride 300 mg extended release oral tablet (20 sources) Aminoketone Start: 04-09-20 End: 11-30-19 take 1 tablet by mouth once daily Bupropion Hcl 150 mg tablet extended release 24 hr Discontinued 150 mg PO DAILY April 09, 2023 1:00am November 30, 2023 9:32am Start: 06-16-2022 take 1 tablet by joe th once daily in the morning buPROPion XL (WELLBUTRIN XL) 300 mg 24 hr tablet Take 300 mg by mouth every morning. 06/16/2022 Active Start: 06-16-2022 take 1 tablet by joe th once daily in the morning buPROPion XL (WELLBUTRIN XL) 300 mg 24 hr tablet Take 450 mg by mouth every morning. 0 06/16/2022 Active Start: 06-02-2022 End: 04-09-2023 take 1 tablet by mouth once daily Bupropion Hcl (Wellbutrin Sr) 150 mg Tablet Sustained-Release 12 Hr Discontinued 150 mg PO DAILY June 02, 2022 1:00am April 09, 2023 9:41am mental health take 1 tablet by joe th every twelve hours Wellbutrin SR 200 mg oral tablet, sustained-release 12 hr 450mg (200 mg) Active Comments: to help with smoking take 1 tablet by joe th every twelve hours Wellbutrin SR 200 mg oral tablet, sustained-release 12 hr 300mg (200 mg) Active Comments: to help with smoking take 1 tablet by joe th every twelve hours Wellbutrin SR 150 mg oral tablet, sustained-release 12 hr (150 mg) Active Comments: to help with smoking Comment on above: to help with smoking Take 300 mg by mouth every morning. Take 450 mg by mouth every morning. cariprazine 3 mg oral capsule (20 sources) Atypical Antipsychotic Start: 2 take 1 capsule by mouth once daily cariprazine (VRAYLAR) 3 mg capsule Take 3 mg by mouth once daily. 03/20/2022 Active Start: 05-13-2020 End: 11-30-2023 take 1 capsule by mouth once daily Cariprazine (Vraylar) 1.5 mg Capsule Discontinued 1.5 mg PO DAILY June 02, 2022 1:00am November 30, 2023 9:34am mental health Start: 02-19-2020 take 1 capsule by mo [facility] once daily Vraylar 1.5 MG Oral Capsule 1 Capsule daily for 0 days Quantity: 30 {Capsule} Refills: 1 Ordered: 19-Feb-2020 Travon FARRELL, Solis Gutiérrezsarah beth FARRELL Solis Start : 19-Feb-2020 Active Start: 12-14-2019 take 1 capsule by mo ut once daily Vraylar 1.5 MG Oral Capsule 1 Capsule daily for 0 days Quantity: 30 {Capsule} Refills: 1 Ordered: 14-Dec-2019 Travon DO, Solis Gutiérrezon DO Solis Start : 14-Dec-2019 Active Start: 10-30-2019 take 1 capsule by [facility] once daily Vraylar 1.5 MG Oral Capsule 1 Capsule daily for 0 days Quantity: 30 {Capsule} Refills: 1 Ordered: 30-Oct-2019 Travon FARRELL Solis Travon DO, Solis Start : 30-Oct-2019 Active Comment on above: Mail order. Take 1.5 mg by mouth once daily. Take 3 mg by mouth o nce daily. clonazePAM 0.5 mg oral tablet (20 sources) Benzodiazepine Start: 3 End: 3 take 1 tablet by mouth every twelve hours as needed clonazePAM (KLONOPIN) 0.5 mg tablet Take 0.5 mg by mouth twice daily as needed for anxiety. 06/08/2022 Active Start: 07-05-2020 take 0.5 mg by mouth twice rufino ly Clonazepam Active 0.5 MG PO TWICE A DAY July 05, 2020 10:05am Start: 01-22-2020 End: 04-17-2020 take 1 tablet by mouth twice daily clonazePAM 0.5 MG Oral Tablet 1 Tablet bid for 30 days Quantity: 60 {Tablet} Refills: 0 Ordered: 18-Mar-2020 Travon FARRELL Solis TravonMore moody DOeen Start : 18-Mar-2020 End : 17-Apr-2020 Inactive Comments: [facility]2020 [facility] Start: 12-14-2019 take 1 tablet by joe twice daily clonazePAM 0.5 MG Oral Tablet 1 Tablet bid for 30 days Quantity: 60 {Tablet} Refills: 0 Ordered: 15-Dec-2019 Travon FARRELLMoreSolis TravonSolis moody DO Start : 15-Dec-2019 Active Comments: sixty f31.10 [facility]rs [facility] 12/24/2019 [place] ramirez Start: 11-09-2019 take 1 tablet by joe th twice daily clonazePAM 0.5 MG Oral Tablet 1 Tablet bid for 30 days Quantity: 60 {Tablet} Refills: 0 Ordered: 09-Nov-2019 Travon FARRELL Solismelita Cool DO Solis Start : 09-Nov-2019 Active Comments: sixty called to [facility] 11/09/19 javius take 2 tablets by mo uth once daily clonazePAM 0.5 MG Oral Tablet 2 tab daily (0.5 MG) Active Comment on above: sixty called to [facility] 11/09/19 jgravius sixty f31.10 oarrs r ev sixty f31.10 [facility]rs r [facility] 12/24/2019 jgravius,[facility] 01/22/2020 [facility] TAKE 1 TABLET BY JOE TH TWICE A DAY DIRECTED Take 0.5 mg by mouth twice daily as needed for anxiety. 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 35 tablet 0 11/12/2022 11/19/2022 Active Start: 02-19-2020 End: 03-04-2020 Clotrimazole 10 MG Mouth/Thr oat Elinro 1 (one) Elinor 5 times a day for 10 days Quantity: 50 {Elinor} Refills: 1 Ordered: 04-Mar-2020 Tio Kirkpatirck LPN Start : 19-Feb-2020 End : 04-Mar-2020 Inactive Comments: 5 times a day for 10 days Comment on above: 5 times a day for 10 days Use 1 Elinor as inst ructed five times daily for 7 days. docusate sodium 50 mg / sennosides, care home 8.6 mg oral tablet (20 sources) Start: 11-05-2022 take 1 tablet by mouth twice daily senna-docusate (SENNA-S) 8.6-50 mg per tablet 1 tablet by ORAL/FEEDING TUBE route twice daily. 11/05/2022 Active Start: 11-05-2022 take 1 tablet by joe th twice daily senna-docusate (SENNA-S) 8.6-50 mg per tablet 1 tablet by ORAL/FEEDING TUBE route twice daily. 0 11/05/2022 Suspended Comment on above: 1 tablet by ORAL/FEE DING TUBE route twice daily. 1 ml evolocumab 140 mg/ml auto-injector (20 sources) PCSK9 Inhibitor Start: 04-09-2023 End: 12-13-2023 Evolocumab (Repatha Sureclick) 140 mg/mL pen injector Active 140 mg SC every 2 weeks 6 3 December 13, 2023 11:30am Start: 04-02-2022 inject 1 mL by subcu taneous injection every month Repatha SureClick 140 mg/mL subcutaneous pen injector 1 (one) Milliliter once month for 0 days Quantity: 1 {Milliliter} Refills: 2 Ordered: 02-Apr-2022 Solis Cool DO, DO, Kathleen Start : 02-Apr-2022 Active Comments: per cardio Start: 10-18-2019 inject 1 mL by subcu taneous injection every month Repatha SureClick 140 MG/ML Subcutaneous Solution Auto-injector 1 (one) Milliliter once month for 0 days Quantity: 1 {Milliliter} Refills: 2 Ordered: 30-Oct-2019 Shonna Aguirre CMA Start : 18-Oct-2019 Active Comments: per cardio Comment on above: per cardio Inject 140 mg subcut aneously every 2 weeks. ezetimibe 10 mg oral tablet (20 sources) Dietary Cholesterol Absorption Inhibitor Start : 06-11 End: 06-29 take 1 tablet by mouth once daily ezetimibe (ZETIA) 10 mg tablet Take 10 mg by mouth once daily. 06/11/2022 Active Comment on above: Take 10 mg by mouth once daily. hydroCHLOROthiazide 12.5 mg oral tablet (20 sources) Thiazide Diuretic Start : 10-21 End: 07-30 -2024 take 1 tablet by mouth once daily hydroCHLOROthiazide 12.5 mg tablet Take 12.5 mg by mouth once daily. 10/21/2022 Active Comment on above: Take 12.5 mg by mout h once daily. 24 hr isosorbide mononitrate 30 mg extended release oral tablet (20 sources) Nitrate Vasodilator Start : 06-02 take 1 tablet by mouth once isosorbide mononitrate ER (IMDUR) 30 mg 24 hr tablet Take 1 tablet by mouth every afternoon. 11/04/2022 Active take 1 tablet by mouth once adalid y isosorbide mononitrate 30 mg oral Tablet, Extended Release 24 hr daily (30 mg) Active Comment on above: Take 1 tablet by joe th every afternoon. iv contrast (will be provided with radiology test) (20 sources) Start: 10-17-19 End: 10-18-19 inject 1 dose intravenously once iv contrast (will be provided with radiology test) Indications: Brain lesion MRI Brain Inject, intravenously, once for 1 dose.No IV access, insert saline lock prior to beginning of sedation, infusion, injection of imaging exam.Discontinue saline lock post exam. If Pt. has a central line or IVAD, may access for administration according to line specific nursing protocol.Once exam is complete flush line and de-access according to line specific nursing protocol in the MR contrast administration guidelines link 1 each 10/16/2024 10/17/2024 Active Start: 04-24-2024 End: 04-25-2024 inject 1 dose intravenously once iv contrast (will be provided with radiology test) MRI Brain Inject, intravenously, once for 1 dose.No IV access, insert saline lock prior to beginning of sedation, infusion, injection of imaging exam.Discontinue saline lock post exam. If Pt. has a central line or IVAD, may access for administration according to line specific nursing protocol.Once exam is complete flush line and de-access according to line specific nursing protocol in the MR contrast administration guidelines link 1 Each 04/24/2024 04/25/2024 Active Start: 01-26-2024 End: 01-27-2024 inject 1 dose intravenously once iv contrast (will be provided with radiology test) MRI Brain Inject, intravenously, once for 1 dose.No IV access, insert saline lock prior to beginning of sedation, infusion, injection of imaging exam.Discontinue saline lock post exam. If Pt. has a central line or IVAD, may access for administration according to line specific nursing protocol.Once exam is complete flush line and de-access according to line specific nursing protocol in the MR contrast administration guidelines link 1 Each 01/26/2024 01/27/2024 Active Start: 10-25-2023 inject 1 dose intravenously on ce iv contrast (will be provided with radiology test) Indications: Brain lesion MRI Brain Inject, intravenously, once for 1 dose.No IV access, insert saline lock prior to beginning of sedation, infusion, injection of imaging exam.Discontinue saline lock post exam. If Pt. has a central line or IVAD, may access for administration according to line specific nursing protocol.Once exam is complete flush line and de-access according to line specific nursing protocol in the MR contrast administration guidelines link 1 Each 10/25/2023 Active Start: 10-25-2023 inject 1 dose intravenously on ce iv contrast (will be provided with radiology test) Indications: Brain lesion MRI Brain Inject, intravenously, once for 1 dose.No IV access, insert saline lock prior to beginning of sedation, infusion, injection of imaging exam.Discontinue saline lock post exam. If Pt. has a central line or IVAD, may access for administration according to line specific nursing protocol.Once exam is complete flush line and de-access according to line specific nursing protocol in the MR contrast administration guidelines link 1 Each 0 10/25/2023 Active Start: 07-22-2023 End: 07-23-2023 inject 1 dose intravenously once iv contrast (will be provided with radiology test) Indications: Brain lesion MRI Brain Inject, intravenously, once for 1 dose.No IV access, insert saline lock prior to beginning of sedation, infusion, injection of imaging exam.Discontinue saline lock post exam. If Pt. 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 If Pt. 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 If Pt. 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 No IV access, insert saline lock prior to the beginning of sedation, infusion, injection of imaging exam. Discontinue saline lock post exam. If Pt. has a central line or IVAD, may access for administration according to line specific nursing protocol. Once exam is complete flush line and de-access according to line specific nursing protocol in the MR contrast administration guidelines link. 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 No IV access, insert saline lock prior to the beginning of sedation, infusion, injection of imaging exam. Discontinue saline lock post exam. If Pt. has a central line or IVAD, may access for administration according to line specific nursing protocol. Once exam is complete flush line and de-access according to line specific nursing protocol in the MR contrast administration guidelines link. 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 If Pt. has a central line or IVAD, may access for administration according to line specific nursing protocol.Once exam is complete flush line and de-access according to line specific nursing protocol in the MR contrast administration guidelines link 1 Each 0 02/23/2023 02/24/2023 Active Start: 11-12-2022 End: 11-13-2022 inject 1 dose intravenously once iv contrast (will be provided with radiology test) Indications: Glioma (HCC) MRI Brain Inject, intravenously, once for 1 dose.No IV access, insert saline lock prior to beginning of sedation, infusion, injection of imaging exam.Discontinue saline lock post exam. If Pt. has a central line or IVAD, may access for administration according to line specific nursing protocol.Once exam is complete flush line and de-access according to line specific nursing protocol in the MR contrast administration guidelines link 1 Each 0 11/12/2022 11/13/2022 Active Start: 08-25-2022 End: 08-26-2022 inject 1 dose intravenously once iv contrast (will be provided with radiology test) MRI Brain Inject, intravenously, once for 1 dose.No IV access, insert saline lock prior to beginning of sedation, infusion, injection of imaging exam.Discontinue saline lock post exam. If Pt. has a central line or IVAD, may access for administration according to line specific nursing protocol.Once exam is complete flush line and de-access according to line specific nursing protocol in the MR contrast administration guidelines link 1 Each 0 08/25/2022 08/26/2022 Start: 06-25-2022 End: 06-26-2022 inject 1 dose intravenously once iv contrast (will be provided with radiology test) MRI Brain Inject, intravenously, once for 1 dose.No IV access, insert saline lock prior to beginning of sedation, infusion, injection of imaging exam.Discontinue saline lock post exam. If Pt. has a central line or IVAD, may access for administration according to line specific nursing protocol.Once exam is complete flush line and de-access according to line specific nursing protocol in the MR contrast administration guidelines link 1 Each 0 06/25/2022 06/26/2022 Active Comment on above: MRI Brain Inject, in travenously, once for 1 dose.No IV access, insert saline lock prior to beginning of sedation, infusion, injection of imaging exam.Discontinue saline lock post exam. If Pt. has a central line or IVAD, may access for administration according to line specific nursing protocol.Once exam is complete flush line and de-access according to line specific nursing protocol in the MR contrast administration guidelines link MRI CSP Inject, intr avenously, once for 1 dose. No IV access, insert saline lock prior to the beginning of sedation, infusion, injection of imaging exam. Discontinue saline lock post exam. If Pt. has a central line or IVAD, may access for administration according to line specific nursing protocol. Once exam is complete flush line and de-access according to line specific nursing protocol in the MR contrast administration guidelines link. MRI TSP Inject, intr avenously, once for 1 dose. No IV access, insert saline lock prior to the beginning of sedation, infusion, injection of imaging exam. Discontinue saline lock post exam. If Pt. has a central line or IVAD, may access for administration according to line specific nursing protocol. Once exam is complete flush line and de-access according to line specific nursing protocol in the MR contrast administration guidelines link. ketorolac tromethamine 10 mg oral tablet (20 sources) Nonsteroidal Anti-inflammatory Drug, Cyclooxygenase Inhibitor Start: 11-30-19 24 take 1 tablet by mouth once daily as needed Ketorolac 10 mg tablet Active 10 mg PO daily as needed November 30, 2023 12:00am Start: 03-13-2022 End: 05-27-2022 ketorolac 10 mg oral tablet 1 tab prn Tablet prn for 0 days Quantity: 30 {Tablet} Refills: 0 Ordered: 27-May-2022 Solis Cool DO, DO, Kathleen Start : 13-Mar-2022 End : 27-May-2022 Inactive Start: 09-19-2021 take 1 tablet by joe th once as needed Ketorolac 10 MG Oral Tablet 1 tab prn for 0 days Refills: 0 Ordered: 19-Sep-2021 Solis Cool DO, DO, Kathleen Start : 19-Sep-2021 Active Comments: This order discontinued per -Span. Start: 11-09-2019 End: 02-05-2020 take 1 tablet by mouth once as needed Ketorolac 10 MG Oral Tablet 1 tab prn for 0 days Refills: 0 Ordered: 09-Nov-2019 TravonSolis moody DO, DO, Kathleen Start : 09-Nov-2019 End : 05-Feb-2020 Discontinued Comments: This order discontinued per -Span. Comment on above: for migranes This order discontin ued per -. lactobacillus combination no.4 (PROBIOTIC) 3 billion cell cap (20 sources) Start: 11-14-2022 lactobacillus combination no.4 (PROBIOTIC) 3 billion cell cap 11/14/2022 Active Start: 11-14-2022 lactobacillus combination no.4 (PROBIOTIC) 3 billion cell cap Lactobacillus Combination No.9 (Adult 50 Plus Probiotic) 4 billion cell capsule (2 sources) Start: 11-24-2024 take 4 capsules by mouth once daily Lactobacillus Combination No.9 (Adult 50 Plus Probiotic) 4 billion cell capsule Active 4000 NMA PO daily November 24, 2024 12:00am administer with a meal losartan potassium 25 mg oral tablet (20 sources) Angiotensin 2 Receptor Gregg Start: 05-22-2022 End: 11-30-2023 take 1 tablet by mouth once daily losartan (COZAAR) 25 mg tablet Take 25 mg by mouth once daily. 05/22/2022 Active Comment on above: Take 25 mg by mouth once daily. marijuana gummies (2 sources) Start: 11-30-2023 marijuana gummies Active PO BEDTIME November 30, 2023 12:00am 24 hr metoprolol succinate 25 mg extended release oral tablet (20 sources) beta-Adrenergic Gregg Start: 04-09-2023 End: 02-03-2024 take 2 tablets by mouth once daily Metoprolol Succinate 25 mg tablet extended release 24 hr Active 12.5 mg PO DAILY 45 February 03, 2024 2:13pm Start: 06-08-2022 take 1 tablet by joe every twenty-four hours metoprolol succinate ER (TOPROL XL) 25 mg 24 hr tablet Take by mouth. 0 06/08/2022 Active Start: 06-08-2022 End: 10-05-2022 take 1 tablet by mouth once daily metoprolol succinate ER (TOPROL XL) 25 mg 24 hr tablet Take 12.5 mg by mouth once daily. 06/08/2022 Active Start: 06-08-2022 End: 10-05-2022 take 2 tablets by mouth once daily Metoprolol Succinate 25 mg tablet extended release 24 hr Discontinued 12.5 mg PO DAILY June 08, 2022 1:00am October 05, 2022 10:12am HTN Comment on above: Take by mouth. Take 12.5 mg by mout h once daily. ondansetron 8 mg oral tablet (20 sources) Serotonin-3 Receptor Antagonist Start: End: take 1 tablet by mouth every eight hours as needed ondansetron (ZOFRAN) 8 mg tablet Take 1 tablet by mouth every 8 hours as needed for nausea/vomiting. 100 tablet 1 11/05/2022 11:55 AM EDT 11/05/2022 Active Zofran 8 MG Oral Tablet prn (8 MG) Active Comment on above: Take 8 mg by mouth. Take 1 tablet by joe th every 8 hours as needed for nausea/vomiting. OXcarbazepine 300 mg oral tablet (20 sources) Anti-epileptic Agent Start: 12-18-2024 OXcarbazepine (TRILEPTAL) 300 mg tablet 1 and a half tablet bid 270 tablet 2 12/18/2024 Active Start: 11-24-2024 Oxcarbazepine 300 mg tablet Active 450 mg PO TWICE A DAY November 24, 2024 12:00am Start: 02-27-2024 End: 12-16-2024 OXcarbazepine (TRILEPTAL) 30 0 mg tablet 1 and a half tablet bid Patient should start on February 27, 2024. 270 tablet 2 02/27/2024 12/16/2024 Discontinued Start: 02-27-2024 OXcarbazepine (TRILEPTAL) 300 mg tablet 1 and a half tablet bid Patient should start on February 27, 2024. 270 tablet 2 02/27/2024 Active Start: 02-27-2024 OXcarbazepine (TRILEPTAL) 300 mg tablet 1 and a half tablet bid Patient should start on February 27, 2024. 270 tablet 2 02/27/2024 Active Start: 01-28-2024 End: 10-14-2024 OXcarbazepine (TRILEPTAL) 30 0 mg tablet 1 and a half tablet bid 90 tablet 01/28/2024 10/14/2024 Discontinued (Course of therapy completed) pantoprazole 40 mg delayed release oral tablet (20 sources) Proton Pump Inhibitor Start: 06-02-2022 End: 04-09-2023 take 2 tablets by mouth once daily Pantoprazole 20 mg Tablet,Delayed Release (Dr/Ec) Discontinued 40 mg PO DAILY June 02, 2022 1:00am April 09, 2023 9:43am reflux Start: 06-02-2022 take 20 mg by mouth once daily Pantoprazole Active 20 MG PO DAILY June 02, 2022 12:00am Start: 06-02-2022 take 40 mg by mouth once daily Pantoprazole Active 40 MG PO DAILY June 02, 2022 1:00am Start: 05-22-2022 End: 11-30-2023 take 1 tablet by mouth once daily pantoprazole DR (PROTONIX) 40 mg tablet Take 1 tablet by mouth once daily. 30 tablet 11/05/2022 11:55 AM EDT 11/05/2022 Active Comment on above: Take 40 mg by mouth once daily. Take 1 tablet by joe th once daily. sennosides, care home 8.6 mg oral capsule (2 sources) Start: take 1 capsule by mouth once daily as needed Sennosides (Senna) 8.6 mg capsule Active 8.6 mg PO DAILY as needed November 30, 2023 12:00am traZODone hydrochloride 100 mg oral tablet (20 sources) Serotonin Reuptake Inhibitor Start: 5 take 4 tablets by mouth at bedtime Trazodone 100 mg tablet Active 400 mg PO AT BEDTIME November 24, 2024 9:10am Start: 11-30-2023 End: 11-24-2024 take 1 tablet by mouth at bedtime Trazodone 100 mg tablet Discontinued 100 mg PO AT BEDTIME November 30, 2023 9:30am November 24, 2024 9:12am Start: 04-09-2023 End: 11-30-2023 take 4 tablets by mouth at bedtime Trazodone 100 mg tablet Discontinued 400 mg PO AT BEDTIME April 09, 2023 1:00am November 30, 2023 9:34am Start: 04-11-2022 take 4 tablets by mo uth at bedtime traZODone 100 mg oral tablet 4 Tablet at bedtime for 0 days Quantity: 120 {Tablet} Refills: 3 Ordered: 27-May-2022 Solis Cool DO, DO, Kathleen Start : 27-May-2022 Active Start: 07-05-2020 End: 04-09-2023 Trazodone 50 MG tablet Disco ntinued 400 mg PO AT BEDTIME July 05, 2020 1:00am April 09, 2023 9:43am sleep Start: 07-05-2020 take 400 mg by mouth at bedtim e Trazodone Active 400 MG PO AT BEDTIME July 05, 2020 1:00am Start: 07-05-2020 take 300 mg by mouth at bedtim e Trazodone Active 300 MG PO AT BEDTIME July 05, 2020 10:05am Start: 05-13-2020 take 3 tablets by mo uth once daily at bedtime traZODone (DESYREL) 100 mg tablet Take 300 mg by mouth daily at bedtime. 04/11/2022 Active Start: 02-19-2020 take 3 tablets by mo uth at bedtime traZODone HCl 100 MG Oral Tablet 3 (three) Tablet at bedtime for 0 days Quantity: 90 {Tablet} Refills: 3 Ordered: 19-Feb-2020 Solis Cool DO, DO, Kathleen Start : 19-Feb-2020 Active Start: 02-05-2020 take 3 tablets by mo uth at bedtime traZODone HCl 100 MG Oral Tablet 3 (three) Tablet at bedtime for 0 days Quantity: 90 {Tablet} Refills: 3 Ordered: 05-Feb-2020 Solis Cool DO, DO, Kathleen Start : 05-Feb-2020 Active Start: 11-09-2019 take 2 tablets by mo uth at bedtime traZODone HCl 100 MG Oral Tablet 2 tab Tablet at bedtime for 0 days Quantity: 60 {Tablet} Refills: 3 Ordered: 09-Nov-2019 Shonna Aguirre CMA Start : 09-Nov-2019 Active Start: 11-08-2019 take 2 tablets by mo uth at bedtime traZODone HCl 100 MG Oral Tablet 2 tab at bedtime for 0 days Refills: 0 Ordered: 08-Nov-2019 Travon DO, Solis Travon DO, Solis Start : 08-Nov-2019 Active Comment on above: TAKE 3 TABLETS BY MO UTH EVERY DAY AT BEDTIME Take 400 mg by mouth daily at bedtime. Take 300 mg by mouth daily at bedtime. vilazodone hydrochloride 40 mg oral tablet (20 sources) Start: 09-17-2020 take 1 tablet by mouth once daily vilazodone (VIIBRYD) 40 mg tablet Take 40 mg by mouth once daily. 05/03/2022 Active Start: 07-16-2020 End: 07-22-2020 take 2 tablets by mouth once daily Viibryd 20 MG Oral Tablet 2 (two) Tablet daily for 90 days Quantity: 180 {Tablet} Refills: 3 Ordered: 22-Jul-2020 Shonna Aguirre CMA Start : 16-Jul-2020 End : 22-Jul-2020 Discontinued Comments: Total of 40mg daily Start: 05-14-2020 take 2 tablets by mo uth once daily Viibryd 20 MG Oral Tablet 2 (two) Tablet daily for 90 days Quantity: 180 {Tablet} Refills: 3 Ordered: 14-May-2020 Travon Solis Travon DO Solis Start : 14-May-2020 Active Comments: Total of 40mg daily Start: 12-27-2019 take 1 tablet by joe th once daily Viibryd 40 MG Oral Tablet 1 Tablet daily for 0 days Quantity: 30 {Tablet} Refills: 3 Ordered: 27-Dec-2019 Shonna Aguirre CMA Start : 27-Dec-2019 Active take 1 tablet by joe th once daily Viibryd 40 MG Oral Tablet 1 daily (40 MG) Active Comment on above: Total of 40mg daily pt tried and failed the trintellex TAKE 1 TABLET BY JOE TH EVERY DAY WITH A MEAL Take 40 mg by mouth once daily. Completed/Discontinued Medications Medication Drug Class(es) Dates Sig (Normalized) Sig (Original) acetaminophen 325 mg / butalbital 50 mg / caffeine 40 mg oral tablet (20 sources) Barbiturate, Central Nervous System Stimulant, Methylxanthine Butalbicet 325-50-40 MG Oral Tablet (325-50-40 MG) Inactive Comments: prn for migranes Comment on above: prn for migranes [id number] 200 actuat albuterol 0.09 mg/actuat metered dose inhaler (20 sources) beta2-Adrenergic Agonist Start: 03-13-2022 End: 12-09-2022 take 2 puff(s) by inhalation every four hours as needed albuterol HFA (PROVENTIL HFA, VENTOLIN HFA) 90 mcg/actuation inhaler INHALE 2 (TWO) PUFFS EVERY 4 HOURS NEEDED 0 03/13/2022 12/09/2022 Discontinued Start: 03-13-2022 End: 05-27-2022 take 2 puff(s) by inhalation every four hours as needed Ventolin HFA 90 mcg/actuation inhalation HFA Aerosol with Adapter 2 (two) Puff q4hrs prn for 0 days Quantity: 1 {Each} Refills: 3 Ordered: 27-May-2022 Slarb INTEGRATION DEVELOPER Rachel Start : 13-Mar-2022 End : 27-May-2022 Inactive Comments: 1 inhaler Start: 03-13-2022 take 2 puff(s) by in halation every four hours as needed Ventolin HFA 108 (90 Base) MCG/ACT Inhalation Aerosol Solution 2 (two) Puff q4hrs prn for 0 days Quantity: 1 {Each} Refills: 3 Ordered: 13-Mar-2022 Solis Cool DO, DO, Kathleen Start : 13-Mar-2022 Active Comments: 1 inhaler Start: 07-05-2020 End: 11-30-2023 Albuterol Sulfate 8.5 GM HFA aerosol inhaler Discontinued 8.5 g INHALATION DAILY July 05, 2020 1:00am November 30, 2023 9:32am breathing Start: 06-28-2020 Albuterol Sulf ate (2.5 MG/3ML) 0.083% Inhalation Nebulization Solution 1 (one) Nebule q6hr prn wheeze and sob for 0 days Quantity: 1 {Box} Refills: 0 Ordered: 28-Jun-2020 Marlon INTEGRATION DEVELOPERRachel Alcala Start : 28-Jun-2020 Active Start: 03-18-2020 Albuterol Sulf ate (2.5 MG/3ML) 0.083% Inhalation Nebulization Solution 1 (one) Nebule q6hr prn wheeze and sob for 0 days Quantity: 1 {Box} Refills: 0 Ordered: 18-Mar-2020 Radha Mcadams LPN Start : 18-Mar-2020 Active Start: 01-18-2020 End: 10-14-2024 albuterol HFA (PROVENTIL HFA , VENTOLIN HFA) 90 mcg/actuation inhaler Inhale as instructed. 01/18/2020 10/14/2024 Discontinued (Course of therapy completed) Start: 10-18-2019 End: 11-08-2019 Albuterol Sulfate (2.5 MG/3M L) 0.083% Inhalation Nebulization Solution 1 (one) Milliliter x 1 for 0 days Quantity: 1 {Nebule} Refills: 0 Ordered: 08-Nov-2019 Tio Kirkpatrick LPN Start : 18-Oct-2019 End : 08-Nov-2019 Inactive Albuterol 90 MCG /ACT Inhalation Aerosol Solution (90 MCG/ACT) Active Comment on above: 1 inhaler INHALE 2 (TWO) PUFFS EVERY 4 HOURS NEEDED Inhale as instructed . Albuterol Sulfate HFA 108 (90 Base) MCG/ACT Inhalation Aerosol Solution (20 sources) Start: 01-18-20 take 2 puff(s) by inhalation twice daily Albuterol Sulfate HFA 108 (90 Base) MCG/ACT Inhalation Aerosol Solution 2 (two) Puff bid for 0 days Quantity: 1 {Inhaler} Refills: 3 Ordered: 18-Jan-2020 Gravius Shonna DE Start : 18-Jan-2020 Active 1 ml alirocumab 75 mg/ml auto-injector (20 sources) PCSK9 Inhibitor Start: 05-27-19 End: 04-09-20 Alirocumab (Praluent Pen) 75 mg/mL Pen Injector Discontinued 75 mg SC Q14D June 02, 2022 1:00am April 09, 2023 9:41am cholesterol Comment on above: per cardio Inject subcutaneousl y. aspirin 81 mg oral tablet (20 sources) Platelet Aggregation Inhibitor, Nonsteroidal Anti-inflammatory Drug Start: 11-12-19 End: 12-10-19 take 1 capsule by mouth once daily aspirin 81 mg cap Take 81 mg by mouth once daily. 0 11/11/2022 12/09/2022 Discontinued Start: 11-11-2022 take 1 capsule by mo [facility] once daily aspirin 81 mg cap Take 81 mg by mouth once daily. 0 11/11/2022 Active Start: 06-19-2022 End: 09-17-2022 take 1 capsule by mouth once daily aspirin 81 mg oral capsule 1 (one) capsule qd for 90 days Refills: 0 Ordered: 23-Sep-2022 Darryl Kennedy CMA Start : 19-Jun-2022 End : 17-Sep-2022 Inactive Start: 06-02-2022 End: 11-05-2022 aspirin 81 mg cap Take by mo [facility]. 0 06/02/2022 11/05/2022 Discontinued Start: 06-02-2022 take 1 tablet by mouth once as pirin, enteric coated (ASPIRIN, ENTERIC COATED) 81 mg EC tablet Take 1 tablet by mouth every afternoon. 10/16/2022 Active Comment on above: Take by mouth. Take 81 mg by mouth once daily. [facility] atorvastatin 80 mg oral tablet (5 sources) HMG-CoA Reductase Inhibitor Start: 06-08-19 End: 10-06-19 take 1 tablet by mouth at bedtime Atorvastatin 80 mg tablet Discontinued 80 mg PO AT BEDTIME June 08, 2022 1:00am October 05, 2022 10:12am CHOLESTEROL azithromycin 500 mg oral tablet (20 sources) Macrolide Antimicrobial Start: 04-12-20 End: 04-22-20 take 1 tablet by mouth once daily Azithromycin 500 MG Oral Tablet 1 (one) Tablet qd for 10 days Quantity: 10 {Tablet} Refills: 0 Ordered: 12-Apr-2020 Solis Cool DO, DO, Kathleen Start : 12-Apr-2020 End : 22-Apr-2020 Inactive Start: 04-12-2020 Zithromax Z-Pa k 250 MG Oral Tablet 1 (one) Tablet TAD for 0 days Quantity: 1 {Package} Refills: 0 Ordered: 12-Apr-2020 Solis Cool DO, DO, Kathleen Start : 12-Apr-2020 Inactive Start: 02-05-2020 End: 02-19-2020 Zithromax Z-Rick 250 MG Oral Tablet 1 (one) Tablet TAD for 0 days Quantity: 1 {Package} Refills: 0 Ordered: 19-Feb-2020 Radha Mcadams LPN Start : 05-Feb-2020 End : 19-Feb-2020 Inactive bacillus subtilis [id number] unt / inulin 1000 mg chewable tablet (20 sources) End: 11-04-2022 Bacillus subtilis-inulin 1.5 billion cell-1 gram chew Take by mouth. 0 11/04/2022 Discontinued (Erroneous entry) Comment on above: 10billion cultures Take by mouth. benoxinate hydrochloride 4 mg/ml / fluorescein sodium 2.5 mg/ml ophthalmic solution (1 source) Diagnostic Dye Start: 12-15-2022 End: 12-16-2022 fluorescein-benoxina te 0.25-0.4 % 1 Drop (FLURESS) 120 actuat budesonide 0.16 mg/actuat / formoterol fumarate 0.0045 mg/actuat metered dose inhaler (20 sources) Corticosteroid, beta2-Adrenergic Agonist Start: 02-05-2020 End: 02-22-2020 take 2 puff(s) by inhalation twice daily Symbicort 160-4.5 MCG/ACT Inhalation Aerosol 2 (two) Puff bid for 0 days Quantity: 1 {Inhaler} Refills: 0 Ordered: 22-Feb-2020 Teagan Gillette LPN Start : 05-Feb-2020 End : 22-Feb-2020 Discontinued Start: 02-05-2020 End: 02-22-2020 take 2 puff(s) by inhalation twice daily Symbicort 160-4.5 MCG/ACT Inhalation Aerosol 2 (two) Puff bid for 0 days Quantity: 1 {Inhaler} Refills: 0 Ordered: 22-Feb-2020 Teagan Gillette LPN Start : 05-Feb-2020 End : 22-Feb-2020 Discontinued calcium carbonate 550 mg / magnesium hydroxide 110 mg chewable tablet (20 sources) Start: 07-15-2020 End: 05-27-2022 take 1-2 tablets by mouth once daily at bedtime as needed Rolaids 550-110 mg oral tablet,chewable 1-2 Tablet qhs prn for 0 days Quantity: 30 {Tablet} Refills: 0 Ordered: 27-May-2022 Rachel Mason LPN Start : 15-Jul-2020 End : 27-May-2022 Discontinued carBAMazepine 200 mg oral tablet (20 sources) Mood Stabilizer Start: 06-02-2022 End: 04-09-2023 take 1 tablet by mouth twice daily Carbamazepine (Tegretol) 200 mg Tablet Discontinued 400 mg PO TWICE A DAY June 02, 2022 1:00am April 09, 2023 9:36am seizures Start: 03-23-2022 End: 03-30-2023 take 2 tablets by mouth twice daily carBAMazepine (TEGRETOL) 200 mg tablet Take 400 mg by mouth twice daily. 0 03/23/2022 03/30/2023 Discontinued Start: 10-08-2021 take 800 mg by mouth once adalid y Carbamazepine Active 800 MG PO DAILY October 08, 2021 4:28pm Comment on above: Take 400 mg by mouth twice daily. cetirizine hydrochloride 10 mg oral tablet (3 sources) Histamine-1 Receptor Antagonist Start: 10-08-2021 cetirizine (ZYRTEC) 10 mg tablet Take by mouth. 0 10/08/2021 Suspended Start: 10-08-2021 Cetirizine (Al lergy Relief (Cetirizine)) 10 mg Tablet Active 25 MG PO DAILY October 08, 2021 4:28pm Comment on above: Take by mouth. clopidogrel 75 mg oral tablet (20 sources) P2Y12 Platelet Inhibitor Start: End: take 1 tablet by mouth once daily clopidogrel (PLAVIX) 75 mg tablet Take 1 tablet by mouth once daily. 0 11/14/2022 12/09/2022 Discontinued Start: 11-14-2022 take 1 tablet by joe th once daily clopidogrel (PLAVIX) 75 mg tablet Take 1 tablet by mouth once daily. 0 11/14/2022 Active Start: 11-14-2022 take 1 tablet by joe th once daily clopidogrel (PLAVIX) 75 mg tablet Take 1 tablet by mouth once daily. 0 11/14/2022 Active Start: 11-14-2022 take 1 tablet by joe th once daily clopidogrel (PLAVIX) 75 mg tablet Take 1 tablet by mouth once daily. 0 11/14/2022 Active Start: 11-14-2022 take 1 tablet by joe th once daily clopidogrel (PLAVIX) 75 mg tablet Take 1 tablet by mouth once daily. 0 11/14/2022 Active Start: 07-05-2020 End: 11-24-2024 take 1 tablet by mouth once daily Clopidogrel 75 MG tablet Discontinued 75 mg PO DAILY July 05, 2020 1:00am November 24, 2024 9:36am anti platelet On Hold: brain surgery Comment on above: Take by mouth. Take [address] [facility] once daily. codeine phosphate 2 mg/ml / guaiFENesin 20 mg/ml oral solution (20 sources) Opioid Agonist Start: 02-22-20 End: 03-04-20 take 5 mL by mouth every eight hours as needed for cough Cheratussin AC 100-10 MG/5ML Oral Syrup 5 Milliliter q 8hr prn cough for 0 days Quantity: 100 {Milliliter} Refills: 0 Ordered: 04-Mar-2020 Tio Kirkpatrick LPN Start : 22-Feb-2020 End : 04-Mar-2020 Inactive Comments: R05one hundred milliters Comment on above: R05one hundred martha ters Culturelle Probiotics Oral Tablet Chewable (5 sources) Culturelle Probiotics Oral Tablet Chewable Active Comments: 10billion cultures Comment on above: 10billion cultures Culturelle Probiotics Oral Tablet Chewable (20 sources) Culturelle Probiotics Oral Tablet Chewable Active Comments: 10billion cultures Comment on above: 10billion cultures dexamethasone 2 mg oral tablet (13 sources) Corticosteroid Start: 11-18-19 End: 12-10-19 dexAMETHasone (DECADRON) 2 mg tablet Indications: Brain mass , Alexia , Lesion of brain , Speech disturbance, unspecified type , Visual field defect , Confusion Taper Start November 20: 2 mg BID for 5 days; Start November 25: 2 mg once day for 5 days; November 30: 1 MG (1/2 Tab) FOR 5 DAYS THEN OFF. 30 tablet 1 11/17/2022 12/09/2022 Discontinued Start: 11-05-2022 End: 11-17-2022 dexAMETHasone (DECADRON) 2 m g tablet Take 4 tablets in the morning and in the afternoon for 5 days. Take 3 tablets in the morning and in the afternoon for 5 days. Then take 2 tablets in the morning and in the afternoon for 5 days.Then take 1 tablet in the morning and afternoon until directed otherwise. 100 tablet 0 11/05/2022 11/17/2022 Discontinued Comment on above: Take 4 tablets in th e morning and in the afternoon for 5 days. Take 3 tablets in the morning and in the afternoon for 5 days. Then take 2 tablets in the morning and in the afternoon for 5 days.Then take 1 tablet in the morning and afternoon until directed otherwise. Taper Start November 20: 2 mg BID for 5 days; Start November 25: 2 mg once day for 5 days; November 30: 1 MG (1/2 Tab) FOR 5 DAYS THEN OFF. doxycycline hyclate 100 mg oral tablet (20 sources) Tetracycline-class Drug Start: End: take 1 tablet by mouth twice daily Doxycycline Hyclate 100 MG Oral Tablet 1 (one) Tablet bid for 10 days Quantity: 20 {Tablet} Refills: 0 Ordered: 08-Jul-2020 Solis Cool DO, DO, Kathleen Start : 28-Jun-2020 End : 08-Jul-2020 Inactive Start: 03-04-2020 End: 03-11-2020 take 1 tablet by mouth twice daily Doxycycline Monohydrate 100 MG Oral Tablet 1 (one) Tablet bid for 7 days Quantity: 14 {Tablet} Refills: 0 Ordered: 04-Mar-2020 Paula lBack Start : 04-Mar-2020 End : 11-Mar-2020 Inactive take 1 tablet by joe th twice daily Doxycycline Hyclate 100 MG Oral Capsule 1 tablet BID x 10 days (100 MG) Inactive Flonase 50 MCG/DOSE Nasal Inhaler (6 sources) Flonase 50 MCG/D OSE Nasal Inhaler (50 MCG/DOSE) Inactive fluconazole 150 mg oral tablet (20 sources) Azole Antifungal Start: 11-26-2022 Diflucan 150 mg oral tablet 1 (one) tablet x1 and repeat in 72 hr for 0 days Quantity: 2 {Tablet} Refills: 2 Ordered: 26-Nov-2022 Solis Cool DO, DO, Kathleen Start : 26-Nov-2022 Active Start: 03-13-2022 End: 04-02-2022 Diflucan 150 mg oral tablet 1 (one) Tablet take one tablet- may take another tablet 72hrs later if symptoms not improved for 0 days Quantity: 2 {Tablet} Refills: 2 Ordered: 1-Dec-2022 Tio Kirkpatrick LPN Start : 13-Mar-2022 End : 02-Apr-2022 Inactive Start: 10-18-2019 End: 03-04-2020 take 1 tablet by mouth once daily Fluconazole 150 MG Oral Tablet 1 (one) Tablet daily x1 for 30 days Quantity: 1 {Tablet} Refills: 1 Ordered: 04-Mar-2020 Tio Kirkpatrick LPN Start : 09-Nov-2019 End : 04-Mar-2020 Inactive fluticasone propionate 0.05 mg/actuat metered dose nasal spray (20 sources) Corticosteroid Flonase 50 MCG/D OSE Nasal Inhaler (50 MCG/DOSE) Inactive hair skin and nails (3 sources) hair skin and na ils Active hydroxychloroquine sulfate 200 mg oral tablet (20 sources) Antimalarial, Antirheumatic Agent Start: 2019 End: 2020 take 2 tablets by mouth twice daily, then take 1 tablet by mouth twice daily Hydroxychloroquine Sulfate 200 MG Oral Tablet tad Tablet bid for 0 days Quantity: 12 {Tablet} Refills: 0 Ordered: 08-Jul-2020 MagalyPaula romano Start : 12-Apr-2020 End : 08-Jul-2020 Inactive Comments: 2tabs bid for one day then one tab bid for 4days Comment on above: 2tabs bid for one da y then one tab bid for 4days levoFLOXacin 750 mg oral tablet (20 sources) Quinolone Antimicrobial Start: 2019 End: 2019 take 1 tablet by mouth once daily in the morning Levaquin 750 MG Oral Tablet 1 (one) Tablet qam for 0 days Quantity: 5 {Tablet} Refills: 0 Ordered: 12-Apr-2020 Radha Mcadams LPN Start : 18-Mar-2020 End : 12-Apr-2020 Inactive melatonin 10 mg oral tablet (20 sources) Start: 2022 End: 2022 take 1 tablet by mouth at bedtime Melatonin 10 mg tablet Discontinued 10 mg PO AT BEDTIME June 08, 2022 8:09pm April 09, 2023 9:42am SLEEP Start: 10-08-2021 End: 06-02-2022 take 2 tablets by mouth at bedtime Melatonin 10 mg Tablet Discontinued 20 mg PO AT BEDTIME October 08, 2021 12:00am June 02, 2022 5:14pm Start: 10-08-2021 End: 06-02-2022 take 20 mg by mouth at bedtime Melatonin Discontinued 20 MG PO AT BEDTIME October 08, 2021 12:00am June 02, 2022 5:14pm End: 03-30-2023 melatonin 10 mg cap Take by mouth. 0 03/30/2023 Discontinued Melatonin Active Comment on above: Take by mouth. 24 hr nicotine 0.875 mg/hr transdermal system (5 sources) Cholinergic Nicotinic Agonist Start: 06-08-19 End: 10-06-19 apply 1 dose transdermal route every twenty-four hours Nicotine 21 mg/24 hr Patch 24 Hour Discontinued 1 NMA TD DAILY June 08, 2022 1:00am October 05, 2022 10:12am SMOKING CEASATION Start: 06-08-2022 End: 10-05-2022 apply 1 dose transdermal route once daily Nicotine Discontinued 1 PATCH TD DAILY June 08, 2022 1:00am October 05, 2022 10:12am oxyCODONE hydrochloride 5 mg oral tablet (12 sources) Opioid Agonist Start: 11-05-2022 End: 12-09-2022 take 1 tablet by mouth every six hours as needed oxyCODONE IR (ROXICODONE) 5 mg immediate release tablet Indications: Glioma (HCC) , Post-op pain Take 1 tablet by mouth 6 hours as needed. 8 tablet 0 11/05/2022 12/09/2022 Discontinued Start: 11-05-2022 End: 12-09-2022 take 1 tablet by mouth every six hours as needed oxyCODONE IR (ROXICODONE) 5 mg immediate release tablet Indications: Glioma (HCC) , Post-op pain Take 1 tablet by mouth 6 hours as needed. 8 tablet 0 11/05/2022 12/09/2022 Discontinued Comment on above: Take 1 tablet by joe th 6 hours as needed. phenylephrine hydrochloride 25 mg/ml ophthalmic solution (1 source) alpha-1 Adrenergic Agonist Start: 3 End: 3 PHENYLephrine 2.5 % 1 Drop (AK-DILATE, ARNAV-SYNEPHRINE) predniSONE 20 mg oral tablet (20 sources) Start: 1 End: take 1 tablet by mouth three times daily, then take 1 tablet by mouth twice daily, then take 1 tablet by mouth once daily predniSONE 20 MG Oral Tablet 1 (one) Tablet tid for 2days then one tab bid for 3days then one tab daily for for 0 days Quantity: 17 {Tablet} Refills: 0 Ordered: 15-Jul-2020 Tio Kirkpatrick LPN Start : 08-Jul-2020 End : 15-Jul-2020 Inactive Start: 06-28-2020 take 1 tablet by joe th three times daily, then take 1 tablet by mouth twice daily, then take 1 tablet by mouth once daily predniSONE 20 MG Oral Tablet 1 (one) Tablet tid for 2days then one tab bid for 3days then one tab daily for for 0 days Quantity: 17 {Tablet} Refills: 0 Ordered: 28-Jun-2020 Solis Cool DO, DO, Kathleen Start : 28-Jun-2020 Active Start: 03-18-2020 End: 04-12-2020 predniSONE 20 MG Oral Tablet 1 (one) Tablet bid for 2daysthen one qd for 3days then 1/2 tab qd for 4days for 0 days Quantity: 9 {Tablet} Refills: 0 Ordered: 12-Apr-2020 Radha Mcadams LPN Start : 18-Mar-2020 End : 12-Apr-2020 Inactive Start: 03-04-2020 End: 03-18-2020 predniSONE 10 MG Oral Tablet 1 (one) Tablet 3 daily x 3 days, 2 daily x 3 days, 1 daily x 3 days for 0 days Quantity: 18 {Tablet} Refills: 0 Ordered: 18-Mar-2020 Tio Kirkpatrick LPN Start : 04-Mar-2020 End : 18-Mar-2020 Inactive Comments: with food Comment on above: with food proparacaine hydrochloride 5 mg/ml ophthalmic solution (1 source) Local Anesthetic Start: 12-16-19 End: 12-17-19 proparacaine 0.5 % 1 Drop (ALCAINE) 125 ml sodium chloride 9 mg/ml prefilled syringe (20 sources) Start: 06-24-19 End: 06-24-19 sodium chloride 0.9 %, flush, (BD POSIFLUSH) syringe Indications: Arterial ischemic stroke (HCC) Inject 2-10 mL intravenously as directed. For Echo procedure 10 mL 0 06/24/2022 12/09/2022 Discontinued Comment on above: Inject 2-10 mL intra venously as directed. For Echo procedure topiramate 100 mg oral tablet (20 sources) Start: 04-29-20 End: 05-03-19 take 1 tablet by mouth twice daily Topiramate (Topamax) 100 mg Tablet Discontinued 100 mg PO TWICE A DAY June 02, 2022 1:00am April 09, 2023 9:36am seizures Start: 10-04-2020 take 1 tablet by joe th twice daily Topamax 100 MG Oral Tablet 1 Tablet bid for 90 days Quantity: 180 {Tablet} Refills: 3 Ordered: 04-Oct-2020 Travon DO, Solis Kowalski DO Start : 04-Oct-2020 Active Start: 07-05-2020 take 200 mg by mouth once adalid y Topiramate Active 200 MG PO DAILY July 05, 2020 10:05am Start: 04-08-2020 take 1 tablet by joe th twice daily Topamax 100 MG Oral Tablet 1 Tablet bid for 90 days Quantity: 180 {Tablet} Refills: 1 Ordered: 08-Apr-2020 Travon FARRELL, Solis Kowalski DO Start : 08-Apr-2020 Active Start: 11-09-2019 take 1 tablet by joe th twice daily Topamax 100 MG Oral Tablet 1 Tablet bid for 0 days Quantity: 60 {Tablet} Refills: 4 Ordered: 09-Nov-2019 Shonna Aguirre CMA Start : 09-Nov-2019 Active Comment on above: TAKE 1 TABLET BY JOE TH TWICE A DAY DIRECTED Take 100 mg by mouth twice daily. Trellegy (4 sources) Trellegy inhaler , one pump two times daily Active tropicamide 10 mg/ml ophthalmic solution (1 source) Anticholinergic Start: 12-16-19 End: 12-17-19 tropicamide 1 % 1 Drop (MYDRIACYL) vortioxetine 10 mg oral tablet (20 sources) Start: 07-23-19 End: 09-18-19 take 1 tablet by mouth once daily Trintellix 10 MG Oral Tablet 1 (one) Tablet qd for 0 days Quantity: 30 {Tablet} Refills: 3 Ordered: 17-Sep-2020 Radha Mcadams LPN Start : 22-Jul-2020 End : 17-Sep-2020 Discontinued Problems Active Problems Problem Classification Problem Date Documented Da te Episodic/Chronic Acute cerebrovascular disease (20 sources) Cerebrovascular accident; Translations: [Cerebral infarction, unspecified] Onset: 06-25-2022 06-08-2022 Chronic Comment on above: neuro is at [facility] for now then [place], plavix , generic repatha, Allergic reactions (20 sources) Allergic condition; Translations: [Allergy] 10-30-2019 Episodic Anxiety disorders (20 sources) Mixed anxiety and depressive disorder; Translations: [Depression with anxiety] 10-30-2019 Chronic Asthma (20 sources) Allergic asthma; Translations: [Unspecified asthma, uncomplicated] Onset: 11-02-2022 Chronic Cancer of brain and nervous system (7 sources) Glioma; Translations: [Malignant neoplasm of brain, unspecified] Chronic Cardiac dysrhythmias (12 sources) Sinus bradycardia; Translations: [Bradycardia, unspecified] Onset: 12-06-2024 06-02-2022 Episodic Chronic obstructive pulmonary disease and bronchiectasis (20 sources) Chronic obstructive lung disease; Translations: [COPD (chronic obstructive pulmonary disease)] 03-14-2021 Chronic Chronic obstructive pulmonary disease and bronchiectasis (20 sources) Bronchitis; Translations: [Bronchitis] Resolved: 03-18-2020 03-04-2020 Episodic Complication of device; implant or graft (1 source) Stenosis of coronary artery stent, initial encounter; Translations: [STENOSIS CORONARY ARTERY STENT INIT] Onset: 05-28-2022 Episodic Coronary atherosclerosis and other heart disease (20 sources) Coronary arteriosclerosis; Translations: [CAD (coronary artery disease)] Onset: 10-31-2021 06-28-2020 Chronic Comment on above: s/p 2-stent 2018? s/p 2-stent 2019?see s cardio in [facility] - annually- DR Lopez s/p 2-stent 2018?see s cardio in [facility] - annually- DR Lopez- 2021 fredrick is stalbe/ Gxt/ echo 2021 normal s/p 2-stent 2019?see s cardio in [facility] - annually- DR Lopez- 2021 haiir is stalbe/ Gxt/ echo 2021 normal new stent placed circ -- old stents are 60%so cardio will watch those lesions closely preserved EF 55% Coronary atherosclerosis and other heart disease (2 sources) Presence of coronary angioplasty implant and graft; Translations: [PRESENCE COR ANGPLSTY IMPLANTANDGRAFT] Onset: 05-28-2022 Episodic Developmental disorders (11 sources) Alexia; Translations: [Dyslexia and alexia] Onset: 04-14-2024 11-15-2022 Chronic Disorders of lipid metabolism (20 sources) Hyperlipidemia; Translations: [Hyperlipidemia] Onset: 06-11-2022 10-30-2019 Chronic Comment on above: didnt tolerate stati ns-- so got put on repatha - and she d/c on own bc lab looked good -- so wiling to restart E Codes: Adverse effects of medical care (1 source) Surgical operation with implant of artificial internal device as the cause of abnormal reaction of the patient, or of later complication, without mention of misadventure at the time of the procedure; Translations: [SURG IMPL ART INTL DEV ABN RXN/COMP] Onset: 05-28-2022 Episodic Epilepsy; convulsions (3 sources) Epilepsy, unspecified, not intractable, without status epilepticus; Translations: [Recurrent seizure] Onset: 05-28-2022 06-21-2024 Chronic Esophageal disorders (20 sources) Gastro-esophageal reflux disease without esophagitis; Translations: [Gastroesophageal reflux disease without esophagitis] Onset: 05-28-2022 Chronic Essential hypertension (20 sources) Essential (primary) hypertension; Translations: [Hypertensive disorder] Onset: 06-25-2022 10-06-2022 Chronic Fever of unknown origin (20 sources) Fever; Translations: [Fever] Resolved: 03-18-2020 02-29-2020 Episodic Fluid and electrolyte disorders (20 sources) Hypokalemia; Translations: [Hypokalemia] Resolved: 03-13-2022 10-10-2021 Episodic Headache; including migraine (20 sources) Migraine; Translations: [Migraine] 09-19-2021 Chronic Headache; including migraine (20 sources) Headache; Translations: [Headache] Resolved: 03-14-2021 02-22-2020 Episodic Heart valve disorders (2 sources) Nonrheumatic aortic (valve) insufficiency; Translations: [Rheumatic tricuspid insufficiency] Onset: 11-05-2021 Chronic Mood disorders (20 sources) Bipolar affective disorder, current episode manic; Translations: [Bipolar affective, manic] Onset: 11-29-2021 10-30-2019 Chronic Comment on above: sujey finley in set2019 Mood disorders (20 sources) Mood disorders Mycoses (20 sources) Candidiasis of mouth; Translations: [Oral yeast infection] Resolved: 06-19-2022 10-30-2019 Episodic Comment on above: gets after intercour se Neoplasms of unspecified nature or uncertain behavior (20 sources) 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; Translations: [Neoplasm of uncertain behavior of brain, unspecified] Onset: 11-04-2022 Chronic Neoplasms of unspecified nature or uncertain behavior (1 source) Neoplastic disease; Translations: [Neoplasm of unspecified behavior of unspecified site] 02-18-2023 Episodic Nervous system congenital anomalies (1 source) Corpus callosum syndrome; 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] 11-27-2022 Chronic Nonspecific chest pain (20 sources) Chest pain; Translations: [Chest pain, unspecified] Onset: 10-30-2021 10-10-2021 Episodic Other and ill-defined cerebrovascular disease (1 source) Cerebrovascular disease, unspecified; Translations: [CEREBROVASCULAR DISEASE UNSPECIFIED] Onset: 06-25-2022 Chronic Other bone disease and musculoskeletal deformities (20 sources) Osteopenia; Translations: [Osteopenia] 12-14-2019 Episodic Comment on above: disc ca++ 1200mg mallory ly with diet and supplements and vit D3- 2-4,000 units dailywt bearing exercise 30' 6days week Other circulatory disease (20 sources) Abnormal chest sounds; Translations: [Abnormal lung sounds] 10-30-2019 Episodic Comment on above: per ER-- has inhaler s Other circulatory disease (13 sources) H/O: heart disorder; Translations: [Personal history of other diseases of the circulatory system] 06-02-2022 Episodic Other circulatory disease (6 sources) Personal history of other diseases of the circulatory system; Translations: [Personal history of other diseases of circulatory system] 06-02-2022 Episodic Other connective tissue disease (20 sources) Cramp and spasm; Translations: [Cramp of muscle of right lower limb] 07-15-2020 Episodic Comment on above: pos homens Other connective tissue disease (20 sources) Pain of right calf; Translations: [Pain of right calf] Resolved: 03-14-2021 07-15-2020 Episodic Other female genital disorders (8 sources) Pruritus of vagina; Translations: [Vaginal itching] 11-26-2022 Episodic Other gastrointestinal disorders (1 source) Diarrhea of presumed infectious origin; Translations: [Diarrhea, unspecified] 01-12-2023 Episodic Other infections; including parasitic (20 sources) Sequelae of other specified infectious and parasitic diseases; Translations: [Post-COVID syndrome] 07-15-2020 Chronic Comment on above: Apr 10 2020 covid w ith reoccurance of respiratory distress, had flare on July 4 had IV solumedrol x 3 today still Sob. Restart prednisoneHad CT of Lung at [facility] 1 month ago Other injuries and conditions due to external causes (20 sources) Contusion; Translations: [Bruising] Resolved: 03-13-2022 10-30-2019 Episodic Other lower respiratory disease (20 sources) Cough; Translations: [Cough] Resolved: 03-14-2021 10-30-2019 Episodic Comment on above: recommend j carlos d otc cont flonasepnd allergeries -- on flonase and allergy shots Other lower respiratory disease (20 sources) Wheezing; Translations: [Wheezing] Resolved: 02-22-2020 02-05-2020 Episodic Other lower respiratory disease (20 sources) Snoring; Translations: [Snores] Resolved: 03-14-2021 02-22-2020 Episodic Other lower respiratory disease (20 sources) Apnea; Translations: [Witnessed episode of apnea] 02-22-2020 Episodic Other lower respiratory disease (20 sources) Dyspnea; Translations: [SOB (shortness of breath)] Resolved: 03-14-2021 03-18-2020 Episodic Comment on above: history of covid Apr 2020 was a long time smoker, seeing Pul on July 18 Other lower respiratory disease (4 sources) Dyspnea on exertion; Translations: [Other forms of dyspnea] 11-24-2024 Episodic Other lower respiratory disease (2 sources) Other forms of dyspnea; Translations: [Other forms of dyspnea] Onset: 12-06-2024 Episodic Other nervous system disorders (20 sources) Lesion of brain; Translations: [Disorder of brain, unspecified] Onset: 12-09-2022 11-15-2022 Chronic Comment on above: inoperable per patie nt Other nervous system disorders (3 sources) Mass lesion of brain; Translations: [Other specified disorders of brain] 11-17-2022 Chronic Other nervous system disorders (1 source) Neuropathy; Translations: [Polyneuropathy, unspecified] 03-31-2023 Chronic Other nervous system disorders (20 sources) Demyelinating disease of central nervous system; Translations: [Demyelinating disease of central nervous system, unspecified] Onset: 03-31-2023 03-31-2023 Chronic Other nervous system disorders (3 sources) Disorder of brain, unspecified; Translations: [Brain lesion] Onset: 12-09-2022 Chronic Other nervous system disorders (1 source) Other specified disorders of brain; Translations: [Brain mass] Onset: 04-14-2024 Chronic Other nervous system disorders (20 sources) Word finding difficulty ; Translations: [Word finding difficulty] 06-19-2022 Episodic Other nervous system disorders (6 sources) Disturbance in speech; Translations: [Unspecified speech disturbances] 11-15-2022 Episodic Other nervous system disorders (1 source) Magnetic resonance imaging of brain abnormal; Translations: [White matter disease, unspecified] 06-18-2023 Episodic Other nervous system disorders (1 source) Abnormal gait; Translations: [Unspecified abnormalities of gait and mobility] 06-18-2023 Episodic Other nervous system disorders (4 sources) Paresthesia of lower extremity; Translations: [Paresthesia of skin] 07-21-2023 Episodic Other nutritional; endocrine; and metabolic disorders (20 sources) Body mass index 25-29 - overweight; Translations: [BMI 25.0-25.9,adult] 10-30-2019 Chronic Other nutritional; endocrine; and metabolic disorders (20 sources) Hypocalcemia; Translations: [Low calcium levels] 07-15-2020 Chronic Other nutritional; endocrine; and metabolic disorders (20 sources) Obese class I; Translations: [Obesity, unspecified] Onset: 12-10-2022 12-10-2022 Chronic Other nutritional; endocrine; and metabolic disorders (20 sources) Body mass index 25-29 - overweight; Translations: [BMI 25.0-25.9,adult] Resolved: 10-10-2021 07-15-2020 Episodic Other nutritional; endocrine; and metabolic disorders (20 sources) Weight gain; Translations: [Weight gain] 09-19-2021 Episodic Other nutritional; endocrine; and metabolic disorders (20 sources) Overweight in adulthood with body mass index of 25 or more but less than 30; Translations: [BMI 25.0-25.9,adult] Resolved: 09-02-2022 02-29-2020 Episodic Other screening for suspected conditions (not mental disorders or infectious disease) (20 sources) Patient encounter status; Translations: [Encounter for screening mammogram for breast cancer (Renamed from Encounter for screening mammogram for malignant neoplasm of breast)] 07-15-2020 Episodic Comment on above: cologard on way in m ail Other skin disorders (20 sources) Loss of hair; Translations: [Hair loss] 09-19-2021 Episodic Other upper respiratory disease (20 sources) Allergic rhinitis; Translations: [Allergic rhinitis] 02-05-2020 Chronic Comment on above: Sinusutus on allergy shots, we ek uses albuterol prn Pneumonia (except that caused by tuberculosis or sexually transmitted disease) (20 sources) Pneumonia; Translations: [Severe acute respiratory syndrome] Resolved: 03-14-2021 03-18-2020 Episodic Comment on above: april 2020 still SOB has IV yuliana umedrol x 4 days, and podecember 2019 Residual codes; unclassified (20 sources) Insomnia; Translations: [Insomnia] 10-30-2019 Episodic Residual codes; unclassified (20 sources) Postmenopausal state; Translations: [Postmenopausal (Renamed from Postmenopausal status)] 11-08-2019 Episodic Residual codes; unclassified (20 sources) Generalized aches and pains; Translations: [Body aches] Resolved: 03-18-2020 02-29-2020 Episodic Residual codes; unclassified (20 sources) Body mass index 20-24 - normal; Translations: [BMI 24.0-24.9, adult] 06-28-2020 Episodic Residual codes; unclassified (20 sources) Non-smoker; Translations: [Non-smoker] 07-15-2020 Episodic Comment on above: just recently quit j an 2020 Residual codes; unclassified (20 sources) Influenza vaccination declined; Translations: [Influenza vaccination declined (Renamed from Refused influenza vaccine)] 03-13-2022 Episodic Residual codes; unclassified (14 sources) Confusional state; Translations: [Disorientation, unspecified] 06-08-2022 Episodic Residual codes; unclassified (3 sources) Tobacco user; Translations: [Tobacco use] 10-06-2022 Episodic Residual codes; unclassified (1 source) Tobacco use; Translations: [Tobacco use disorder] 10-05-2022 Episodic Residual codes; unclassified (1 source) Personal history of other specified conditions; Translations: [Personal history of other specified diseases] 12-02-2023 Episodic Secondary malignancies (1 source) Secondary malignant neoplasm of brain; 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] 05-03-2023 Chronic Sprains and strains (9 sources) Sprain of ankle; Translations: [Sprain of unspecified ligament of left ankle, initial encounter] 04-28-2021 Episodic Substance-related disorders (1 source) Nicotine dependence, cigarettes, uncomplicated; Translations: [NICOTINE DEPEND CIGARETTES UNCOMP] Onset: 05-28-2022 Chronic Unclassified (20 sources) Unclassified (20 sources) Encounter for screening mammogram for breast cancer (Renamed from Encounter for screening mammogram for malignant neoplasm of breast); Translations: [Patient encounter status] 10-30-2019 Unclassified (20 sources) Bipolar affective, manic Unclassified (20 sources) Non-smoker; Translations: [Non-smoker] 10-30-2019 Comment on above: just recently quit j an 2020 Unclassified (20 sources) Oral yeast infection Unclassified (20 sources) CAD (coronary artery disease) Unclassified (20 sources) BMI 27.0-27.9,adult Unclassified (4 sources) Encounter for gynecological examination with abnormal finding Unclassified (4 sources) Colon cancer screening (Renamed from Encounter for screening for malignant neoplasm of colon) Viral infection (4 sources) Post-viral disorder; Translations: [Post-COVID syndrome] 07-08-2020 Chronic Comment on above: Apr 10 2020 covid w ith reoccurance of respiratory distress, had flare on July 4 had IV solumedrol x 3 today still Sob. Restart prednisoneHad CT of Lung at [facility] 1 month ago Viral infection (7 sources) Severe acute respiratory syndrome; Translations: [SARS (severe acute respiratory syndrome)] 07-15-2020 Episodic Comment on above: still SOB has IV yuliana umedrol x 4 days, and podecember 2019 Past or Other Problems Problem Classification Problem Date Documented Date Episodic/Chronic Blindness and vision defects (20 sources) Eye / vision finding; Translations: [Visual changes] Onset: 11-29-2023 06-19-2022 Episodic Comment on above: loss of vision R los s 12-4 and L loss 12-3 Chronic obstructive pulmonary disease and bronchiectasis (12 sources) Chronic obstructive pulmonary disease and bronchiectasis Epilepsy; convulsions (20 sources) Seizure; Translations: [Unspecified convulsions] Onset: 11-02-2022 Episodic Headache; including migraine (20 sources) Headache; including migraine Other connective tissue disease (2 sources) Pain of right calf; Translations: [Pain of right calf] 07-15-2020 Other lower respiratory disease (2 sources) Dyspnea, unspecified; Translations: [DYSPNEA UNSPECIFIED] Onset: 10-30-2021 Episodic Other nervous system disorders (20 sources) Postoperative pain ; Translations: [Other acute postprocedural pain] Onset: 11-05-2022 11-05-2022 Episodic Other nervous system disorders (1 source) Paresthesia of skin; Translations: [Paresthesia of both legs] Onset: 04-14-2024 Episodic Other nervous system disorders (1 source) Unspecified speech disturbances; Translations: [Speech disturbance, unspecified type] Onset: 04-14-2024 Episodic Residual codes; unclassified (3 sources) Disorientation, unspecified; Translations: [Unspecified psychosis] Onset: 04-14-2024 06-08-2022 Episodic Unclassified (20 sources) Abnormal lung sounds Unclassified (20 sources) Bruising Unclassified (20 sources) Thrush Unclassified (20 sources) BMI 25.0-25.9,adult Unclassified (20 sources) Pregnancies (); Translations: [Pregnancies ()] 10-30-2019 Comment on above: 3. Unclassified (20 sources) Patient encounter status; Translations: [Well woman exam] 11-08-2019 Unclassified (20 sources) Postmenopausal (Renamed from Postmenopausal status) Unclassified (20 sources) Unspecified Diagnosis 11-09-2019 Unclassified (20 sources) Snores Unclassified (20 sources) Witnessed episode of apnea Unclassified (20 sources) Body mass index 20-24 - normal; Translations: [BMI 24.0-24.9, adult] 02-29-2020 Unclassified (20 sources) Body aches Unclassified (20 sources) BMI 26.0-26.9,adult Unclassified (14 sources) Post-COVID syndrome Unclassified (12 sources) Pain of right calf Unclassified (12 sources) Low calcium levels Unclassified (12 sources) Cramps of right lower extremity Unclassified (3 sources) Weight gain Unclassified (3 sources) Hair loss Results Test Name Value Interpretation Reference Range Facility Absolute lymphocyte countOrd ered By: Russ Sutherland on 11-24-2024 Lymphocytes Auto (Unsp spec) [#/Vol] 1.36 10*3/uL 0.83-4.51 [facility] Absolute neutrophil countOrd ered By: [facility] on 11-24-2024 Neutrophils (Bld) [#/Vol] 5.6 10*3/uL 2.0-7.7 [facility] Anion gap in Serum or Plasma Ordered By: Russirving Sutherland on 11-24-2024 Anion gap [Moles/Vol] 10 mmol/L 5-15 [facility] Automated lymphocyte count a s percentage of total leukocytesOrdered By: Russirving Sutherland on 11-24-2024 Lymphocytes/100 WBC Auto (Unsp spec) 17.7 % Low 19-41 [facility] BUN/creatinine ratioOrdered By: [facility] on 11-24-2024 Urea nitrogen/Creatinine [Mass ratio] 9.9 mg/mg Low 10-20 [facility] Basophil percentageOrdered B y: Russirving Sutherland on 11-24-2024 Basophils/100 WBC (Bld) 0.5 % 0-1 [facility] Bilirubin, totalOrdered By: Russirving Sutherland on 11-24-2024 Bilirubin [Mass/Vol] 0.23 mg/dL 0.00-1.30 [facility] CBC W/Diff, Automatedon 11-01 Absolute Lymph 1.36 X10 3/uL Normal 0.83-4.51 [facility] Comment on above: Performed By: #### L 501.4696, L503.7505, L500.4050, L100.0100, L500.4100, L501.5200 #### [facility] [place], [address] Absolute Neut 5.6 X10 3/uL Normal 2.0-7.7 [facility] Comment on above: Performed By: #### L 501.9520, L503.7505, L500.4050, L100.0100, L500.4100, L501.5200 #### [facility] [address] [place], [address] Basophils/100 WBC (Bld) 0.5 % Normal 0-1 [facility] Comment on above: Performed By: #### L 501.9520, L503.7505, L500.4050, L100.0100, L500.4100, L501.5200 #### [facility] [address] [place], [address] Eosinophils/100 WBC (Bld) 1.6 % Normal 0-5 [facility] Comment on above: Performed By: #### L 501.9520, L503.7505, L500.4050, L100.0100, L500.4100, L501.5200 #### [facility] [address] [place], [address] Erythrocyte distribution width (RBC) [Ratio] 17.1 % High 11.6-14.6 [facility] Comment on above: Performed By: #### L 501.9520, L503.7505, L500.4050, L100.0100, L500.4100, L501.5200 #### [facility] [address] [place], [address] Hematocrit (Bld) [Volume fraction] 38.9 % Normal 37-47 [facility] Comment on above: Performed By: #### L 501.9520, L503.7505, L500.4050, L100.0100, L500.4100, L501.5200 #### [facility] [address] [place], [address] Hemoglobin (Bld) [Mass/Vol] 12.1 g/dL Normal 12.0-15.0 [facility] Comment on above: Performed By: #### L 501.9520, L503.7505, L500.4050, L100.0100, L500.4100, L501.5200 #### [facility] [address] [facility] [place], [address] IG% 0.700 Normal 0.0-0.9 [facility] Comment on above: Result Comment: IG% - Immature Granulocytes (promyelocytes, myelocytes and metamyelocytes) > 1% indicates that a LEFT SHIFT is Present. Performed By: #### L 501.9520, L503.7505, L500.4050, L100.0100, L500.4100, L501.5200 #### [facility] [address] [facility] [place], [address] Lymphocytes/100 WBC (Bld) 17.7 % Low 19-41 [facility] Comment on above: Performed By: #### L 501.9520, L503.7505, L500.4050, L100.0100, L500.4100, L501.5200 #### [facility] [address] [facility] [place], [address] MCH (RBC) [Entitic mass] 22.9 pg Low 27.0-32.0 [facility] Comment on above: Performed By: #### L 501.9520, L503.7505, L500.4050, L100.0100, L500.4100, L501.5200 #### [facility] [address] [place], [address] MCHC (RBC) [Mass/Vol] 31.1 g/dL Low 32-36 [facility] Comment on above: Performed By: #### L 501.9520, L503.7505, L500.4050, L100.0100, L500.4100, L501.5200 #### [facility] [address] [place], [address] MCV (RBC) [Entitic vol] 73.7 fL Low 81-99 [facility] Comment on above: Performed By: #### L 501.9520, L503.7505, L500.4050, L100.0100, L500.4100, L501.5200 #### [facility] [address] [place], [address] Monocytes/100 WBC (Bld) 6.5 % Normal 0-10 [facility] Comment on above: Performed By: #### L 501.9520, L503.7505, L500.4050, L100.0100, L500.4100, L501.5200 #### [facility] [address] [place], [address] Neutrophils/100 WBC (Bld) 73.0 % High 47-70 [facility] Comment on above: Performed By: #### L 501.9520, L503.7505, L500.4050, L100.0100, L500.4100, L501.5200 #### [facility] [address] [place], [address] Nucleated RBC (Bld) [#/Vol] 0 10*3/uL Normal 0-5 [facility] Comment on above: Performed By: #### L 501.9520, L503.7505, L500.4050, L100.0100, L500.4100, L501.5200 #### [facility] [address] [place], [address] Platelet mean volume (Bld) [Entitic vol] 8.3 fL Normal 6.2-12.0 [facility] Comment on above: Performed By: #### L 501.9520, L503.7505, L500.4050, L100.0100, L500.4100, L501.5200 #### [facility] [address] [place], [address] Platelets (Bld) [#/Vol] 245 10*3/uL Normal 150-450 [facility] Comment on above: Performed By: #### L 501.9520, L503.7505, L500.4050, L100.0100, L500.4100, L501.5200 #### [facility] [address] [place], [address] RBC (Bld) [#/Vol] 5.28 10*6/uL Normal 4.2-5.4 [facility] Comment on above: Performed By: #### L 501.9520, L503.7505, L500.4050, L100.0100, L500.4100, L501.5200 #### [facility] [address] [place], [address] RDW SD 44.9 fl High 35.1-43.9 [facility] Comment on above: Performed By: #### L 501.9520, L503.7505, L500.4050, L100.0100, L500.4100, L501.5200 #### [facility] [address] [place], [address] WBC (Bld) [#/Vol] 7.7 10*3/uL Normal 4.4-11.0 [facility] Comment on above: Performed By: #### L 501.9520, L503.7505, L500.4050, L100.0100, L500.4100, L501.5200 #### [facility] [address] [place], [address] Calculated very low density lipoprotein (VLDL) cholesterol measurementOrdered By: Russ Sutherland on 11-24-2024 Calculated very low density lipoprotein (VLDL) cholesterol measurement 16 mg/dL 5-40 [facility] Carbon dioxide, total [Moles /volume] in Central venous bloodOrdered By: Russ Sutherland on 11-24-2024 CO2 [Moles/Vol] 26.0 mmol/L 21.0-32.0 [facility] Cardiology Visit Reporton Cardiology Visit Report [facility] [address] [place] [address] OFFICE VISIT Date of Service: 11/24/24 MR#: [id number] Acct: [id number] Name: JOSIE LANDIS Rep #: [id number] : 1965 Provider: SUSAN Pichardo Age/Sex: 59/F Location: [facility] Status: Signed HPI HPI History of Present Illness Details: Josie Landis is a 59-year-old female who presents to office today for follow-up for monitoring her cardiovascular health. Patient has a history of coronary artery disease status post drug- eluting stent to her mid RCA and proximal LAD 05/13/2018 at [facility]. Heart catheterization 05/21/2022 at [facility] demonstrated patent mid LAD stent, 40% proximal LAD stenosis, 60% in-stent restenosis of the RCA with a normal IFR of 0.99, 85% mid circumflex stenosis, LMCA is angiographically normal and OM1 is angiographically normal. She proceeded with a drug-eluting stent to the mid of circumflex. She presented to [facility] in May 2022 with chest pain, her cardiac enzymes were negative. She underwent pharmacological stress that was negative for ischemia and demonstrated preserved ejection fraction. She returned to [facility] June 2022 for confusion. An echocardiogram 06/08/2019 demonstrated preserved ejection fraction at 65%, no valvular concerns and a bubble contrast study positive for PFO. MRI showed changes that suggested demyelination versus acute ischemia. She underwent event monitor with Dr. Lopez in July 2022 that showed no dysrhythmia that includes no atrial fibrillation. She underwent LUKE that could not exclude a small PFO. She is closely following with [facility] neurology regarding a brain lesion. She also has a history of hypertension, hyperlipidemia, tobacco abuse and COPD. She has been diagnosed with seizures and has been initiated on anti-epileptics through [facility] neurology. Upon presentation today, patient reports her brain lesion has totally changed her life. She had to retire early. She finds herself tired all the time and climbing a flight of stairs wares her out. This has been noticed over the past 1 year. She reports weakness that has been noticed since being diagnosed with the brain lesion. 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 She finds herself dizzy that is mostly associated with standing up. She notices chest pain mostly at rest that is described as an ache going across the front of the chest. She denies any radiation to the arms or jaw. Chest pain has been noticed for about 6 months now. She notices palpitations in her chest described as feeling excited or fluttering that lasts a couple minutes that may happen once per month. This has been noticed for a while now. She notices swelling in her LE when she wears socks and take them off. She feels her abdomen is swelling. She notices SOB with walking up a flight of stairs, walking down the drive way or when she is in a hurry. This has been noticed for 6-7 months now. She has had episodes of passing out that has been worked up and she is now diagnosed with seizures and is being treated with antiepileptics through neurology. Further ROS below. 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 Accompanied by: Self Is patient in pain?: No Allergies adhesive tape Allergy (Verified 11/24/24 09:05) Hives aspirin (ASA) Allergy (Verified 11/24/24 09:05) Other budesonide (From Symbicort) Allergy (Verified 11/24/24 09:05) Anaphylaxis formoterol (From Symbicort) Allergy (Verified 11/24/24 09:05) Anaphylaxis latex Allergy (Verified 11/24/24 09:05) Hives Penicillins (PCN) Allergy (Verified 11/24/24 09:05) Hives Medications ???Medication ???Instructions ???Recorded ???Confirmed ???Type vilazodone 40 mg tablet (Viibryd) 40 mg PO DAILY mental health 12/2211/24/24 History aspirin 81 mg tablet,delayed 81 mg PO DAILY heart health 11/24/24 History release isosorbide mononitrate 30 mg 30 mg PO DAILY heart 06/02/2211/01 History tablet,extended release 24 hr cariprazine 1.5 mg capsule 3 mg PO DAILY mental health 11/24/24 History (Vraylar) clonazepam 0.5 mg tablet 0.5 mg PO BID 11/30/23 11/24/24 Hi story ketorolac 10 mg tablet 10 mg PO QDAY PRN 11/30/23 4 History marijuana gummies PO HS 11/30/23 11/24/24 History pantoprazole 40 mg tablet,delayed 40 mg PO RUFINO (more content not included)... Normal [facility] Chloride assayOrdered By: Inocente Sutherland on 11-24-2024 Chloride [Moles/Vol] 97 mmol/L Low 98-108 [facility] Comprehensive Metabolic Prof ilon 11-24-2024 Albumin [Mass/Vol] 4.1 g/dL Normal 3.5-5.0 [facility] Comment on above: Performed By: #### L 501.9520, L503.7505, L500.4050, L100.0100, L500.4100, L501.5200 #### [facility] [address] [place], [address] Albumin/Globulin [Mass ratio] 1.5 {ratio} Normal 0.9-2.4 [facility] Comment on above: Performed By: #### L 501.9520, L503.7505, L500.4050, L100.0100, L500.4100, L501.5200 #### [facility] [address] [place], [address] ALK PHOS 112 U/L High 35-104 [facility] Comment on above: Performed By: #### L 501.9520, L503.7505, L500.4050, L100.0100, L500.4100, L501.5200 #### [facility] [address] [place], [address] ALT [Catalytic activity/Vol] 16 U/L Normal <=34 [facility] Comment on above: Performed By: #### L 501.9520, L503.7505, L500.4050, L100.0100, L500.4100, L501.5200 #### [facility] [address] [place], [address] AST [Catalytic activity/Vol] 16 U/L Normal <=31 [facility] Comment on above: Performed By: #### L 501.9520, L503.7505, L500.4050, L100.0100, L500.4100, L501.5200 #### [facility] [address] [place], [address] Bilirubin [Mass/Vol] 0.23 mg/dL Normal 0.00-1.30 [facility] Comment on above: Performed By: #### L 501.9520, L503.7505, L500.4050, L100.0100, L500.4100, L501.5200 #### [facility] [address] [place], [address] BUN/CRE 9.9 RATIO Low 10-20 [facility] Comment on above: Performed By: #### L 501.9520, L503.7505, L500.4050, L100.0100, L500.4100, L501.5200 #### [facility] [address] [place], [address] Calcium [Mass/Vol] 9.3 mg/dL Normal 7.6-11.0 [facility] Comment on above: Performed By: #### L 501.9520, L503.7505, L500.4050, L100.0100, L500.4100, L501.5200 #### [facility] [address] [place], [address] Chloride [Moles/Vol] 97 mmol/L Low 98-108 [facility] Comment on above: Performed By: #### L 501.9520, L503.7505, L500.4050, L100.0100, L500.4100, L501.5200 #### [facility] [address] [place], [address] CO2 [Moles/Vol] 26.0 mmol/L Normal 21.0-32.0 [facility] Comment on above: Performed By: #### L 501.9520, L503.7505, L500.4050, L100.0100, L500.4100, L501.5200 #### [facility] [address] [place], [address] Creatinine [Mass/Vol] 0.83 mg/dL Normal 0.70-1.20 [facility] Comment on above: Performed By: #### L 501.9520, L503.7505, L500.4050, L100.0100, L500.4100, L501.5200 #### [facility] [address] [place], [address] GAP 10 Normal 5-15 [facility] Comment on above: Performed By: #### L 501.9520, L503.7505, L500.4050, L100.0100, L500.4100, L501.5200 #### [facility] [address] [place], [address] GFR/1.73 sq M.predicted among non-blacks MDRD (S/P/Bld) [Vol rate/Area] 82 mL/min/{1.73_m2} Normal >60 [facility] Comment on above: Result Comment: mL/m in/1.73m2 CKD-EPI Creatinine Equation (2020) Performed By: #### L 501.9520, L503.7505, L500.4050, L100.0100, L500.4100, L501.5200 #### [facility] [address] [place], [address] Globulin (S) [Mass/Vol] 2.8 g/dL Normal 2.2-4.2 [facility] Comment on above: Performed By: #### L 501.9520, L503.7505, L500.4050, L100.0100, L500.4100, L501.5200 #### [facility] [address] [place], [address] Glucose [Mass/Vol] 89 mg/dL Normal 70-99 [facility] Comment on above: Performed By: #### L 501.9520, L503.7505, L500.4050, L100.0100, L500.4100, L501.5200 #### [facility] [address] [place], [address] Potassium [Moles/Vol] 4.4 mmol/L Normal 3.3-5.1 [facility] Comment on above: Performed By: #### L 501.9520, L503.7505, L500.4050, L100.0100, L500.4100, L501.5200 #### [facility] [address] [place], [address] Sodium [Moles/Vol] 133 mmol/L Normal 133-145 [facility] Comment on above: Performed By: #### L 501.9520, L503.7505, L500.4050, L100.0100, L500.4100, L501.5200 #### [facility] [address] [place], [address] T PROT 6.9 g/dL Normal 5.9-8.4 [facility] Comment on above: Performed By: #### L 501.9520, L503.7505, L500.4050, L100.0100, L500.4100, L501.5200 #### [facility] [address] [place], [address] Urea nitrogen [Mass/Vol] 8 mg/dL Normal 4-19 [facility] Comment on above: Performed By: #### L 501.9520, L503.7505, L500.4050, L100.0100, L500.4100, L501.5200 #### [facility] [address] [place], [address] Eosinophil percentageOrdered By: Russ Sutherland on 11-24-2024 Eosinophils/100 WBC (Bld) 1.6 % 0-5 [facility] Erythrocyte distribution wid th ratioOrdered By: Russ Sutherland on 11-24-2024 Erythrocyte distribution width (RBC) [Ratio] 17.1 % High 11.6-14.6 [facility] Erythrocyte distribution wid th standard deviationOrdered By: Russ Sutherland on 11-24-2024 Erythrocyte distribution width (RBC) [Ratio] 44.9 fl High 35.1-43.9 [facility] Glomerular filtration rate ( GFR) estimation/1.73 sq m using serum, plasma, or whole bOrdered By: Russ Sutherland on 11-24-2024 GFR/1.73 sq M.predicted among non-blacks MDRD (S/P/Bld) [Vol rate/Area] 82 mL/min/{1.73_m2} >60 [facility] Comment on above: mL/min/1.73m2 CKD-EP I Creatinine Equation (2020) Hematocrit Auto (Bld) [Volum e fraction]Ordered By: Russ Sutherland on 11-24-2024 Hematocrit (Bld) [Volume fraction] 38.9 % 37-47 [facility] Hemoglobin measurementOrdere d By: Russ Sutherland on 11-24-2024 Hemoglobin (Bld) [Mass/Vol] 12.1 g/dL 12.0-15.0 [facility] Immature granulocytes/100 WB C Auto (Bld)Ordered By: Russ Sutherland on 11-24-2024 Immature granulocytes/100 WBC (Bld) 0.700 % 0.0-0.9 [facility] Comment on above: IG% - Immature Granu locytes (promyelocytes, myelocytes and metamyelocytes) > 1% indicates that a LEFT SHIFT is Present. LDL calc ser/plasOrdered By: Russ Sutherland on 11-24-2024 Cholesterol in LDL [Mass/Vol] 55 mg/dL [facility] Comment on above: Sssqepnkwf=340-403 m g/dL & Higher Rftw=167 mg/dL or greater Laboratory - Chemistry and C hemistry - challengeOrdered By: Russ Sutherland on 11-24-2024 AST [Catalytic activity/Vol] 16 U/L <32 [facility] Lipid Profileon 11-24-2024 CHOL:HDL 2.32 Normal [facility] Comment on above: Performed By: #### L 501.9520, L503.7505, L500.4050, L100.0100, L500.4100, L501.5200 #### [facility] [address] [facility] [place], [place], [id number] ([phone]) Cholesterol [Mass/Vol] 125 mg/dL Normal <=200 [facility] Comment on above: Result Comment: Chol esterol level, Desirable <200 mg/dL Borderline high cholesterol 200-239 mg/dL High cholesterol >=240 mg/dL Recommendations of the NCEP Adult Treatment Panel for the following risk-cutoff thresholds for the [place] population. Performed By: #### L 501.9520, L503.7505, L500.4050, L100.0100, L500.4100, L501.5200 #### [facility] [address] [place], [address] Cholesterol in HDL [Mass/Vol] 54 mg/dL Normal [facility] Comment on above: Result Comment: Josee onal Cholesterol Education Program (NCEP) guidelines: <40 mg/dL: Low HDL-cholesterol (major risk factor for CHD) >= 60 mg/dL: High HDL-cholesterol (negative risk factor for CHD) HDL-cholesterol is affected by a number of factors, e.g. smoking, exercise, hormones, sex and age. Performed By: #### L 501.9520, L503.7505, L500.4050, L100.0100, L500.4100, L501.5200 #### [facility] [address] [place], [address] Cholesterol in LDL [Mass/Vol] 55 mg/dL Normal [facility] Comment on above: Result Comment: Bord npyahl=380-224 mg/dL Higher Hwih=926 mg/dL or greater Performed By: #### L 501.9520, L503.7505, L500.4050, L100.0100, L500.4100, L501.5200 #### [facility] [address] [place], [address] Cholesterol in VLDL [Mass/Vol] 16 mg/dL Normal 5-40 [facility] Comment on above: Performed By: #### L 501.9520, L503.7505, L500.4050, L100.0100, L500.4100, L501.5200 #### [facility] [address] [place], [address] Triglyceride [Mass/Vol] 81 mg/dL Normal [facility] Comment on above: Result Comment: The drugs N-Acetylcysteine and Metamizole may falsely depress this assay. Normal range: <150 mg/dL Borderline High: 150-199 mg/dL High: 200-499 mg/dL Very High: >500 mg/dL Performed By: #### L 501.9520, L503.7505, L500.4050, L100.0100, L500.4100, L501.5200 #### [facility] [address] [place], [address] MCV (mean corpuscular volume ) determinationOrdered By: Russ Sutherland on 11-24-2024 MCV (RBC) [Entitic vol] 73.7 fL Low 81-99 [facility] Magnesiumon 11-24-2024 Magnesium [Mass/Vol] 2.0 mg/dL Normal 1.5-2.2 [facility] Comment on above: Performed By: #### L 501.9520, L503.7505, L500.4050, L100.0100, L500.4100, L501.5200 #### [facility] [address] [place], [address] Magnesium measurement (mass/ volume)Ordered By: Russ Sutherland on 11-24-2024 Magnesium (Unsp spec) [Mass/Vol] 2.0 mg/dL 1.5-2.2 [facility] Mean corpuscular hemoglobin (MCH) determinationOrdered By: Russnorah Sutherland on 11-24-2024 MCH (RBC) [Entitic mass] 22.9 pg Low 27.0-32.0 [facility] Mean corpuscular hemoglobin concentration (MCHC) determinationOrdered By: Russ Sutherland on 11-24-2024 MCHC (RBC) [Mass/Vol] 31.1 g/dL Low 32-36 [facility] Mean platelet volume determi nationOrdered By: Russirving Sutherland on 11-24-2024 Platelet mean volume (Bld) [Entitic vol] 8.3 fL 6.2-12.0 [facility] Monocyte percentageOrdered B y: Russ Sutherland on 11-24-2024 Monocytes/100 WBC (Bld) 6.5 % 0-10 [facility] Natriuretic peptide.B prohor see N-Terminal [Mass/volume] in Serum or PlasmaOrdered By: Russ Sutherland on 11-24-2024 Natriuretic peptide.B prohormone N-Terminal [Mass/Vol] < 36 pg/mL <900 [facility] Comment on above: Heart Failure Unlike ly: < 300 pg/mLHeart Failure Likely< 50 Years: > 450 pg/mL50-75 Years: > 900 pg/mL>75 Years: > 1800 pg/mL Neutrophil percentageOrdered By: Russ Sutherland on 11-24-2024 Neutrophils/100 WBC (Bld) 73.0 % High 47-70 [facility] Nucleated red blood cell per centageOrdered By: Russ Sutherland on 11-24-2024 Nucleated RBC/100 WBC (Bld) [Ratio] 0 % 0-5 [facility] Platelet countOrdered By: Inocente Sutherland on 11-24-2024 Platelets (Bld) [#/Vol] 245 10*3/uL 150-450 [facility] Potassium measurement (mass/ volume)Ordered By: Russ Sutherland on 11-24-2024 Potassium (Unsp spec) [Mass/Vol] 4.4 mmol/L 3.3-5.1 [facility] Pro- Brain NATRIURETIC PEPTI Iza 11-24-2024 proBNP < 36 Normal <=900 [facility] Comment on above: Result Comment: Hear t Failure Unlikely: < 300 pg/mL Heart Failure Likely < 50 Years: > 450 pg/mL 50-75 Years: > 900 pg/mL >75 Years: > 1800 pg/mL Performed By: #### L 501.9520, L503.7505, L500.4050, L100.0100, L500.4100, L501.5200 #### [facility] [address] [place], [address] RBC Auto (Bld) [#/Vol]Ordere d By: Russ Sutherland on 11-24-2024 RBC (Bld) [#/Vol] 5.28 10*6/uL 4.2-5.4 [facility] Screening total cholesterol/ high density lipoprotein (HDL) cholesterol ratioOrdered By: Russ Sutherland on 11-24-2024 Cholesterol.total/Cho lesterol in HDL [Mass ratio] 2.32 {ratio} [facility] Serum creatinine measurement (mass/volume)Ordered By: Russ Sutherland on 11-24-2024 Creatinine [Mass/Vol] 0.83 mg/dL 0.70-1.20 [facility] Serum globulin measurementOr dered By: Russ Sutherland on 11-24-2024 Globulin (S) [Mass/Vol] 2.8 g/dL 2.2-4.2 [facility] Serum glucose measurement (m ass/volume)Ordered By: Russirving Sutherland on 11-24-2024 Glucose [Mass/Vol] 89 mg/dL 70-99 [facility] Serum or plasma alanine gudino otransferase (ALT) measurementOrdered By: Russ Koko on 11-24-2024 ALT [Catalytic activity/Vol] 16 U/L <35 [facility] Serum or plasma albumin leonel urement (mass/volume)Ordered By: [facility] 11-[facility]-2024 Albumin [Mass/Vol] 4.1 g/dL 3.5-5.0 [facility] Serum or plasma albumin/glob ulin mass ratioOrdered By: [facility] on 11-24-2024 Albumin/Globulin [Mass ratio] 1.5 {ratio} 0.9-2.4 [facility] Serum or plasma alkaline martina sphatase measurementOrdered By: [facility] on 11-24-2024 ALP [Catalytic activity/Vol] 112 U/L High 35-104 [facility] Serum or plasma calcium leonel urement (mass/volume)Ordered By: Russ Koko on 11-24-2024 Calcium [Mass/Vol] 9.3 mg/dL 7.6-11.0 [facility] Serum or plasma cholesterol in HDL measurement (mass/volume)Ordered By: Russirving Sutherland on 11-24-2024 Cholesterol in HDL [Mass/Vol] 54 mg/dL >40 [facility] Comment on above: National Cholesterol Education Program (NCEP) guidelines:<40 mg/dL: Low HDL-cholesterol (major risk factor for CHD)>= 60 mg/dL: High HDL-cholesterol (negative risk factor for CHD)HDL-cholesterol is affected by a number of factors, e.g. smoking, exercise, hormones, sex and age. Serum or plasma cholesterol measurement (mass/volume)Ordered By: [facility] Koko on 11-24-2024 Cholesterol [Mass/Vol] 125 mg/dL <201 [facility] Comment on above: Cholesterol level, D esirable <200 mg/dLBorderline high cholesterol 200-239 mg/dLHigh cholesterol >=240 mg/dLRecommendations of the NCEP Adult Treatment Panel for the following risk-cutoff thresholds for the [place] population. Serum or plasma urea nitroge n measurement (mass/volume)Ordered By: Russ Sutherland on 11-24-2024 Urea nitrogen [Mass/Vol] 8 mg/dL 4-19 [facility] Sodium levelOrdered By: Emely Sutherland on 11-24-2024 Sodium [Moles/Vol] 133 mmol/L 133-145 [facility] TSH DL <= 0.005 mIU/L QnOrde red By: Russ Sutherland on 11-24-2024 TSH Qn 1.780 uIU/mL 0.300-4.20 0 [facility] Thyroid Stim Hormone (TSH)on 11-24-2024 TSH 1.780 uIU/mL Normal 0.300-4.20 0 [facility] Comment on above: Performed By: #### L 501.9520, L503.7505, L500.4050, L100.0100, L500.4100, L501.5200 #### [facility] [place], [address] Total proteinOrdered By: Zack Sutherland on 11-24-2024 Protein [Mass/Vol] 6.9 g/dL 5.9-8.4 [facility] Triglycerides measurementOrd ered By: Russ Sutherland on 11-24-2024 Triglyceride [Mass/Vol] 81 mg/dL <199 [facility] Comment on above: The drugs N-Acetylcy steine and Metamizole may falsely depress this assay. 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 Physical Chemistry Teacher: RHIANNON Transcribe Date/Time: Oct 11 2024 12:05P Dictated by : ARTURO AVENDANO MD This examination was interpreted and the report reviewed and electronically signed by: ARTURO AVENDANO MD on Oct 11 2024 12:20PM [facility] DIVISION OF RADIOLOGY * * *Final Report* * * DATE OF EXAM: Oct 11 2024 11:08AM MIKAL 0295 - MRI BRAIN WO/W IVCON / PROCEDURE REASON: Brain lesion * * * * Physician Interpretation * * * * EXAMINATION: MRI BRAIN WO/W IVCON CLINICAL HISTORY: Brain lesion TECHNIQUE: Routine brain MRI protocol without and with contrast including diffusion images. MR perfusion study was performed of the entire brain following bolus intravenous administration of gadolinium utilizing dynamic susceptibility-weighted contrast-enhanced acquisition. Contrast: 17 mL Dotarem IV COMPARISON: MRI brain 04/12/2024 RESULT: Acute Change: There is no evidence of restricted diffusion to suggest an acute infarct. Hemorrhage: Similar susceptibility artifact along the prior right parieto-occipital biopsy tract and within the splenium of the corpus callosum. No new or enlarging intracranial hemorrhage. Mass Lesion/ Mass Effect: Compared to 04/12/2024, similar heterogenous appearance of the splenium of the corpus callosum with a central area of T1 hypointensity measuring 3 to 4 mm. T2/FLAIR hyperintensity extends along forceps major bilaterally into the periatrial white matter. No significant associated enhancement. No new or enlarging lesion identified. Postsurgical changes related to prior right parieto-occipital approach biopsy. Perfusion: MR perfusion study was performed of the entire brain following bolus intravenous administration of gadolinium utilizing dynamic susceptibility-weighted contrast-enhanced acquisition. Perfusion study is limited by susceptibility artifact and vasculature along the splenium of the corpus callosum. Within this limitation, no new or worsening elevated CBV signal. Chronic Change: Periatrial white matter changes, as discussed above. Scattered punctate foci of increased T2 and FLAIR signal are noted in the supratentorial white matter which is a nonspecific finding. Unchanged asymmetric appearance of the javi. Parenchyma: No significant volume loss for age. Ventricles: Normal caliber and morphology. Skull Base: Hypothalamic and pituitary region are grossly normal. Craniocervical junction is normal. No significant marrow replacement process. Vasculature: Major intracranial arterial structures, and dural venous sinuses show typical flow void, suggesting patency by spin echo criteria. Other: The visualized paranasal sinuses and mastoid air cells are clear. The orbits and extracranial soft tissues are unremarkable. DIVISION OF RADIOLOGY Provider, [facility] [place] - 10/11/2024 * * *Final Report* * * DATE OF EXAM: Oct 11 2024 11:08AM MIKAL 0295 - MRI BRAIN WO/W IVCON / PROCEDURE REASON: Brain lesion * * * * Physician Interpretation * * * * EXAMINATION: MRI BRAIN WO/W IVCON CLINICAL HISTORY: Brain lesion TECHNIQUE: Routine brain MRI protocol without and with contrast including diffusion images. MR perfusion study was performed of the entire brain following bolus intravenous administration of gadolinium utilizing dynamic susceptibility-weighted contrast-enhanced acquisition. Contrast: 17 mL Dotarem IV COMPARISON: MRI brain 04/12/2024 RESULT: Acute Change: There is no evidence of restricted diffusion to suggest an acute infarct. Hemorrhage: Similar susceptibility artifact along the prior right parieto-occipital biopsy tract and within the splenium of the corpus callosum. No new or enlarging intracranial hemorrhage. Mass Lesion/ Mass Effect: Compared to 04/12/2024, similar heterogenous appearance of the splenium of the corpus callosum with a central area of T1 hypointensity measuring 3 to 4 mm. T2/FLAIR hyperintensity extends along forceps major bilaterally into the periatrial white matter. No significant associated enhancement. No new or enlarging lesion identified. Postsurgical changes related to prior right parieto-occipital approach biopsy. Perfusion: MR perfusion study was performed of the entire brain following bolus intravenous administration of gadolinium utilizing dynamic susceptibility-weighted contrast-enhanced acquisition. Perfusion study is limited by susceptibility artifact and vasculature along the splenium of the corpus callosum. Within this limitation, no new or worsening elevated CBV signal. Chronic Change: Periatrial white matter changes, as discussed above. Scattered punctate foci of increased T2 and FLAIR signal are noted in the supratentorial white matter which is a nonspecific finding. Unchanged asymmetric appearance of the javi. Parenchyma: No significant volume loss for age. Ventricles: Normal caliber and morphology. Skull Base: Hypothalamic and pituitary region are grossly normal. Craniocervical junction is normal. No significant marrow replacement process. Vasculature: Major intracranial arterial structures, and dural venous sinuses show typical flow void, suggesting patency by spin echo criteria. Other: The visualized paranasal sinuses and mastoid air cells are clear. The orbits and extracranial soft tissues are unremarkable. IMPRESSION IMPRESSION: Stable examination compared to 04/12/2024 with grossly unchanged lesion in the splenium of the corpus callosum. Physical Chemistry Teacher: RHIANNON Transcribe Date/Time: Oct 11 2024 12:05P Dictated by : ARTURO AVENDANO MD This examination was interpreted and the report reviewed and electronically signed by: ARTURO AVENDANO MD on Oct 11 2024 12:20PM EST [facility] Radiology Study observation (narrative) [facility] MR Brain WO and W contrast I VOrdered By: [facility] Provider on 10-11-2024 [facility] MRI BRAIN WO/W IVCONon 10-11 MRI BRAIN WO/W IVCON * * *Final Report* * * DATE OF EXAM: Oct 11 2024 11:08AM WRM 0295 - MRI BRAIN WO/W IVCON / PROCEDURE REASON: Brain lesion * * * * Physician Interpretation * * * * EXAMINATION: MRI BRAIN WO/W IVCON CLINICAL HISTORY: Brain lesion TECHNIQUE: Routine brain MRI protocol without and with contrast including diffusion images. MR perfusion study was performed of the entire brain following bolus intravenous administration of gadolinium utilizing dynamic susceptibility-weighted contrast-enhanced acquisition. Contrast: 17 mL Dotarem IV COMPARISON: MRI brain 04/12/2024 RESULT: Acute Change: There is no evidence of restricted diffusion to suggest an acute infarct. Hemorrhage: Similar susceptibility artifact along the prior right parieto-occipital biopsy tract and within the splenium of the corpus callosum. No new or enlarging intracranial hemorrhage. Mass Lesion/ Mass Effect: Compared to 04/12/2024, similar heterogenous appearance of the splenium of the corpus callosum with a central area of T1 hypointensity measuring 3 to 4 mm. T2/FLAIR hyperintensity extends along forceps major bilaterally into the periatrial white matter. No significant associated enhancement. No new or enlarging lesion identified. Postsurgical changes related to prior right parieto-occipital approach biopsy. Perfusion: MR perfusion study was performed of the entire brain following bolus intravenous administration of gadolinium utilizing dynamic susceptibility-weighted contrast-enhanced acquisition. Perfusion study is limited by susceptibility artifact and vasculature along the splenium of the corpus callosum. Within this limitation, no new or worsening elevated CBV signal. Chronic Change: Periatrial white matter changes, as discussed above. Scattered punctate foci of increased T2 and FLAIR signal are noted in the supratentorial white matter which is a nonspecific finding. Unchanged asymmetric appearance of the javi. Parenchyma: No significant volume loss for age. Ventricles: Normal caliber and morphology. Skull Base: Hypothalamic and pituitary region are grossly normal. Craniocervical junction is normal. No significant marrow replacement process. Vasculature: Major intracranial arterial structures, and dural venous sinuses show typical flow void, suggesting patency by spin echo criteria. Other: The visualized paranasal sinuses and mastoid air cells are clear. The orbits and extracranial soft tissues are unremarkable. IMPRESSION: Stable examination compared to 04/12/2024 with grossly unchanged lesion in the splenium of the corpus callosum. Physical Chemistry [facility]: [facility] Transcribe Date/Time: Oct 11 2024 12:05P Dictated by : ARTURO AVENDANO MD This examination was interpreted and the report reviewed and electronically signed by: ARTURO AVENDANO MD on Oct 11 2024 12:20PM EST [id number] Normal [facility] 10OH-Carbazepine SerPl-mCnco n 07-21-2024 10-Hydroxycarbazepine [Mass/Vol] 19.6 ug/mL Normal 3.0-35.[address] [facility] Comment on above: Order Comment: Speci men Type: BLOOD SPECIMENOrdering Facility: [facility] Address: [address] [place] [address] Result Comment: This test was developed, and its performance characteristics determined by the [facility] Department of Pathology and Laboratory Medicine. It has not been cleared or approved by the FDA. The [facility] Department of Pathology and Laboratory Medicine is regulated under CLIA as qualified to perform high-complexity testing. This test is used for clinical purposes. It should not be regarded as investigational or for research. Performed By: #### 3 1019-3 ####[facility] LABCLIA [id number] [place] [address] [place] CBC panel Auto (Bld)on 07-21 Erythrocyte distribution width (RBC) [Ratio] 17.7 % High 11.5-15.[address] [facility] Comment on above: Order Comment: Speci men Type: BLOOD SPECIMENOrdering Facility: [facility] Address: [address] [place] [address] Performed By: #### 5 8410-2 ####[facility] JERSONWNCLIA [id number] [place] [address] [place] Hematocrit (Bld) [Volume fraction] 41.1 % Normal 36.0-46.[address] [facility] Comment on above: Order Comment: Speci men Type: BLOOD SPECIMENOrdering Facility: [facility] Address: [address] [place] [address] Performed By: #### 5 8410-2 ####[facility] LIZETTEMAPLE LAKEMOISÉSLIA [id number] [place] [address] [place] Hemoglobin (Bld) [Mass/Vol] 12.9 g/dL Normal 11.5-15.[address] [facility] Comment on above: Order Comment: Speci men Type: BLOOD SPECIMENOrdering Facility: [facility] Address: [address] [place] [address] Performed By: #### 5 8410-2 ####[facility]PITALGLORIAA [id number] [place] [address] [place] MCH (RBC) [Entitic mass] 23.3 pg Low 26.0-34.[address] [facility] Comment on above: Order Comment: Speci men Type: BLOOD SPECIMENOrdering Facility: [facility] Address: [address] [place] [address] Performed By: #### 5 8410-2 ####[facility] HOSPITALMOISÉSLIA [id number] [place] [address] [place] MCHC (RBC) [Mass/Vol] 31.4 g/dL Normal 30.5-36.0 [facility] Comment on above: Order Comment: Speci men Type: BLOOD SPECIMENOrdering Facility: [facility] Address: [address] [place] [address] Performed By: #### 5 8410-2 ####[facility]ITALNCLIA [id number] [place] [address] [place] MCV (RBC) [Entitic vol] 74.3 fL Low 80.0-100.[address] [facility] Comment on above: Order Comment: Speci men Type: BLOOD SPECIMENOrdering Facility: [facility] Address: [address] [place] [address] Performed By: #### 5 8410-2 ####[facility] HOSPITALNCLUPIS [id number] [place] [address] [place] Nucleated RBC (Bld) [#/Vol] 10*3/uL Normal <0.[address] [facility] Comment on above: Order Comment: Speci men Type: BLOOD SPECIMENOrdering Facility: [facility] Address: [address] [place] [address] Performed By: #### 5 8410-2 ####[facility] HOSPITALNCLUPIS [id number] [place] [address] [place] Platelet mean volume (Bld) [Entitic vol] 8.0 fL Low 9.0-12.[address] [facility] Comment on above: Order Comment: Speci men Type: BLOOD SPECIMENOrdering Facility: [facility] Address: [address] [place] [address] Performed By: #### 5 8410-2 ####[facility]ITALNCLIA [id number] [place] [address] [place] Platelets (Bld) [#/Vol] 221 10*3/uL Normal 150-[address] [facility] Comment on above: Order Comment: Speci men Type: BLOOD SPECIMENOrdering Facility: [facility] Address: [address] [place] [address] Performed By: #### 5 8410-2 ####[facility]ITALNCLIA [id number] [place] [address] [place] RBC (Bld) [#/Vol] 5.53 10*6/uL High 3.90-5.20 [facility] Comment on above: Order Comment: Speci men Type: BLOOD SPECIMENOrdering Facility: [facility] Address: [address] [place] [address] Performed By: #### 5 8410-2 ####[facility] CENTERWNCLIA [id number] [place] [address] [place] WBC (Bld) [#/Vol] 5.82 10*3/uL Normal 3.70-11.00 [facility] Comment on above: Order Comment: Speci men Type: BLOOD SPECIMENOrdering Facility: [facility] Address: [address] [place] [address] Performed By: #### 5 8410-2 ####[facility]PITALNCLIA [id number] [place] [address] [place] Comprehensive metabolic 2000 panelon 07-21-2024 Albumin [Mass/Vol] 4.1 g/dL Normal 3.9-4.9 [facility] Comment on above: Order Comment: Speci men Type: BLOOD SPECIMENOrdering Facility: [facility] Address: [address] [place] [address] Performed By: #### 2 4323-8 ####[facility]OSPITALNCLIA [id number] [place] [address] [place] ALP [Catalytic activity/Vol] 114 U/L Normal 34-[address] [facility] Comment on above: Order Comment: Speci men Type: BLOOD SPECIMENOrdering Facility: [facility] Address: [address] [place] [address] Performed By: #### 2 4323-8 ####[facility]ITALNCLIA [id number] [place] [address] [place] ALT [Catalytic activity/Vol] 7 U/L Normal 7-[address] [facility] Comment on above: Order Comment: Speci men Type: BLOOD SPECIMENOrdering Facility: [facility] Address: [address] [place] [address] Performed By: #### 2 4323-8 ####[facility] MK MILLTOWNCLIA [id number] [place] [address] [place] Anion gap [Moles/Vol] 9 mmol/L Normal 8-15 [facility] Comment on above: Order Comment: Speci men Type: BLOOD SPECIMENOrdering Facility: [facility] Address: [address] [place] [address] Performed By: #### 2 4323-8 ####[facility] MILLWNCLIA [id number] [place] [address] [place] AST [Catalytic activity/Vol] 10 U/L Low 13-[address] [facility] Comment on above: Order Comment: Speci men Type: BLOOD SPECIMENOrdering Facility: [facility] Address: [address] [place] [address] Performed By: #### 2 4323-8 ####[facility] CENTERWNCLIA [id number] [place] [address] [place] Bilirubin [Mass/Vol] 0.3 mg/dL Normal 0.2-1.3 [facility] Comment on above: Order Comment: Speci men Type: BLOOD SPECIMENOrdering Facility: [facility] Address: [address] [place] [address] Performed By: #### 2 4323-8 ####[facility] MILLTOWNCLIA [id number] [place] [address] [place] Calcium [Mass/Vol] 9.1 mg/dL Normal 8.5-10.2 [facility] Comment on above: Order Comment: Speci men Type: BLOOD SPECIMENOrdering Facility: [facility] Address: [address] [place] [address] Performed By: #### 2 4323-8 ####[facility] MILLTOWNCLIA [id number] [place] [address] [place] Chloride [Moles/Vol] 96 mmol/L Low 98-107 [facility] Comment on above: Order Comment: Speci men Type: BLOOD SPECIMENOrdering Facility: [facility] Address: [address] [place] [address] Performed By: #### 2 4323-8 ####[facility] HOSPITALNCLI [id number] [place] [address] [place] CO2 [Moles/Vol] 27 mmol/L Normal 22-[address] [facility] Comment on above: Order Comment: Speci men Type: BLOOD SPECIMENOrdering Facility: [facility] Address: [address] [place] [address] Performed By: #### 2 4323-8 ####[facility] HOSPITALNCLI [id number] [place] [address] [place] Creatinine [Mass/Vol] 0.80 mg/dL Normal 0.58-0.96 [facility] Comment on above: Order Comment: Speci men Type: BLOOD SPECIMENOrdering Facility: [facility] Address: [address] [place] [address] Performed By: #### 2 4323-8 ####[facility] HOSPITALNCLI [id number] [place] [address] [facility] Creatinine and Glomerular filtration rate.predicted panel (S/P/Bld) 87 mL/min/1.73m??? Normal >=[address] [facility] Comment on above: Order Comment: Speci men Type: BLOOD SPECIMENOrdering Facility: [facility] Address: [address] [place] [address] Result Comment: Elana mated Glomerular Filtration Rate (eGFR) is calculated using the 2020 CKD-EPI creatinine equation. This equation utilizes serum creatinine, sex, and age as parameters. The creatinine assay has traceable calibration to isotope dilution-mass spectrometry. Refer to KDIGO guidelines for clinical interpretation. In patients with unstable renal function, e.g. those with acute kidney injury, the eGFR may not accurately reflect actual GFR. Performed By: #### 2 4323-8 ####[facility] LIZETTEWNCLIA [id number] [place] [address] [place] Glucose [Mass/Vol] 106 mg/dL High 74-99 [facility] Comment on above: Order Comment: Loni sanchez Type: BLOOD SPECIMENOrdering Facility: [facility] Address: [address] [place], [place] [id number] Result Comment: The [place] [employer] (ADA) provides guidance for cutoff values for fasting glucose and random glucose. The ADA defines fasting as no caloric intake for at least 8 hours. Fasting plasma glucose results between 100 to 125 mg/dL indicate increased risk for diabetes (prediabetes). Fasting plasma glucose results greater than or equal to 126 mg/dL meet the criteria for diagnosis of diabetes. In the absence of unequivocal hyperglycemia, results should be confirmed by repeat testing. In a patient with classic symptoms of hyperglycemia or hyperglycemic crisis, random plasma glucose results greater than or equal to 200 mg/dL meet the criteria for diagnosis of diabetes. Reference: Standards of Medical Care in Diabetes 2016, [place] [employer]. Diabetes Care. 2016.39(Suppl 1). Performed By: #### 2 4323-8 ####[facility] HOSPITALNCLIA [id number] [place] [address] [place] Potassium [Moles/Vol] 4.3 mmol/L Normal 3.7-5.1 [facility] Comment on above: Order Comment: Loni sanchez Type: BLOOD SPECIMENOrdering Facility: [facility] Address: [address] [place] [address] Performed By: #### 2 4323-8 ####[facility] [id number] [place] [address] [place] Protein [Mass/Vol] 6.6 g/dL Normal 6.3-8.0 [facility] Comment on above: Order Comment: Loni sanchez Type: BLOOD SPECIMENOrdering Facility: [facility] Address: [address] [place], [place] [address] Performed By: #### 2 4323-8 ####[facility] LIZETTEWNCLIA [id number] [address] [place] Sodium [Moles/Vol] 132 mmol/L Low 136-144 [facility] Comment on above: Order Comment: Speci men Type: BLOOD SPECIMENOrdering Facility: [facility] Address: [address] [place] [address] Performed By: #### 2 4323-8 ####[facility]ITAL[facility]CLIA [id number] [place] [address] [place] Urea nitrogen [Mass/Vol] 5 mg/dL Low 7-[address] 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 MQ: MRBWOW_2 Contrast: 17 mL Dotarem IV COMPARISON: Multiple prior MRIs of the brain, most recently 01/17/2024 RESULT: Acute Change: There is no evidence of restricted diffusion to suggest an acute infarct. Hemorrhage: Small amount of susceptibility artifact in the right occipital lobe secondary to prior biopsy attempt. No evidence of interval hemorrhage. Mass Lesion/ Mass Effect: Heterogeneous T2/FLAIR signal in the splenium of the corpus callosum appears unchanged compared to 01/17/2024. There is no enhancement of the lesion on postcontrast images. No new lesions are identified. No significant mass effect. And appears technically adequate. No new elevation of cerebral blood volume is identified. Chronic Change: Scattered patchy areas of increased T2 and FLAIR signal are present in the supratentorial white matter which is a nonspecific finding but likely represents mild chronic microvascular ischemia. 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 Parenchyma: No significant volume loss for age. The brain parenchyma is otherwise within normal limits of signal intensity and morphology. Ventricles: Normal caliber and morphology. Skull Base: Hypothalamic and pituitary region are grossly normal. Craniocervical junction is normal. No significant marrow replacement process. Vasculature: Major intracranial arterial structures, and dural venous sinuses show typical flow void, suggesting patency by spin echo criteria. Other: The visualized paranasal sinuses and mastoid air cells are clear. The orbits and extracranial soft tissues are unremarkable. IMPRESSION: Unchanged examination. Nonenhancing lesion in the splenium of the corpus callosum appears stable. No perfusion abnormality. Physical Chemistry Teacher: [facility] Transcribe Date/Time: Apr 12 2024 12:38P Dictated by : MARCIANO ZAZUETA MD This examination was interpreted and the report reviewed and electronically signed by: MARCIANO ZAZUETA MD on Apr 12 2024 1:00PM EST [id number] Normal [facility] CNOVon 01-28-2024 CNOV Office Visit (NE50MN ) ----- JOSIE LANDIS ([id number]) 1965 F Date Time Provider Department 01/28/24 2:00 PM TANIA MONROY NE50MN During your visit today, we recorded the following information about you: Pulse Respiration Blood pressure Weight 80/minute 20/minute 139/72 83.5 kg Height 1.702 m Tania Monroy MD 01/28/2024 3:15 PM Addendum Trileptal 300 mg Week 1: Half a tablet twice a day Week 2: One tablet twice a day Week 3: One and a half tablet twice a day Call the office if you have questions or concerns at [phone] Follow up in 3 months Lani Noel Silvia, MD 02/01/2024 9:15 AM Signed [facility] Patient Name: Josie FOX Date of : 1965 Referring Provider: Libertad Santiago [address] [facility] [address] [facility] [address] INITIAL EPILEPSY CLINIC NOTE 01/28/2024 2:00 PM CHIEF COMPLAINT: New Patient HISTORY OF PRESENT ILLNESS Ms. Landis is a 58 year old right-handed female seen in [facility] Outpatient [facility] for initial consultation. 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 Soto on October 20, 2023. 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 Given progression of the lesion the patient underwent a biopsy with Dr. Jovel on 11/04/22 and pathology non diagnostic. Patient was told that she experienced grand mal seizures at age 24 year old. She was on mthrylphenobarbital seizure. She continued to have seizures and eventually he was seizure are and ASM was d/c at age 13 yo. She experienced seizures again at age [age] year old. She recalls that she was able to say that she was going to have one and she was passing out. This was a single event and she was not on ASM. Next seizure was when she was given , soon in the past period. She was 19 yo. She was not on ASM. The next seizure was before having gallbladder surgery at age 30 yo Then psychiatrist started her on Tegretol and Topamax , unknown dose for bipolar. She is not taking it anymore. Six years ago she was in her car at work waiting to go to work. She reports that she called her mother, she told her that she was about to pass out, 3 minutes later she came out from a seizure. Father went to pick her up. For the last 6 years she did not experience any event until 2 weeks ago. She was in the car as a passenger with her , told the that she had nauseas, wanted to take zofran, did not take it, set back, eyes rolled back, hands were shaking, unresponsive. moaning. Duration 30 -60 seconds. called her name, she confused. Patient amnestic of the event. Patient had urine incontinence. No tongue biting. Later patient called her daughter who told the patient to go to the ED. reports that she was back to baseline. A week later , patient experienced another event. She again had nauseas, set down, called her 's name, passed out for unknown time. Had urine incontinence,, very tired after the event. The next day she slept almost 20 hours. She spoke with Dr Huizar, Brain Tumor. MRI purvi was ordered and showed stable findings. She was referred to Epilepsy On no ASM History of bipolar disorder Total # of Current Anti-seizure Medications: 0 Number of seizure types: 2 Seizure-related driving accidents: No Driving: No Lives Alone: No ED Visits in Last 3 Months: Yes Hospitalizations in Last 3 Months: Yes CURRENT OUTPATIENT ANTISEIZURE MEDICATIONS (as of the start of the encounter) clonazePAM (KLONOPIN) 0.5 mg tablet (Taking) Prior Anti-seizure Therapies: Trial Adequacy: Max Daily Dose Achieved: Side Effects: Effectiveness: Comments: Carbamazepine Levetiracetam Topiramate Comorbidities: Episode Description: Patient Entered Data: EPILEPSY SCORE 01/28/2024 7:01 AM 01/28/2024 6:59 AM 01/28/2024 6:58 AM First answer obtained - 06/24/2022 3:58 PM PHQ-9 SCORE - - - - TASNEEM 2 SCORE 4 [Positive Anxiety Screen] - - - TASNEEM 7 SCORE 14 [Moderate Anxiety Disorder] - - - QOLIE-10 SCORE (0=worst; 100=best QoL - higher scores represent better function) - - - - LSSS SCORE (0- no seizures 100- most severe possible seizures) - - - - C-SSRS SCREEN - - - - On average, how many hours of sleep do you get in a 24-hour period? - - - PROMIS Sleep Disturbance T-SCORE - - - 58 [mild] Have you been diagnosed with Sleep Apnea? 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 Normal [facility] MR Brain WO and W contrast I Von 01-17-2024 IMPRESSION: Stable appearance the brain from 10/19/2023. Stable heterogeneous signal changes in the splenium of the corpus callosum without enhancement, reduced diffusivity or perfusional abnormality. Physical Chemistry Teacher: RHIANNON Transcribe Date/Time: Jan 17 2024 11:15A Dictated by : KERRI HOYT DO This examination was interpreted and the report reviewed and electronically signed by: KERRI HOYT DO on Jan 17 2024 11:23AM [facility] DIVISION OF RADIOLOGY * * *Final Report* * * DATE OF EXAM: Jan 17 2024 10:40AM [facility] 0295 - MRI BRAIN WO/W IVCON / PROCEDURE REASON: Brain lesion * * * * Physician Interpretation * * * * EXAMINATION: MRI BRAIN WO/W IVCON CLINICAL HISTORY: Brain lesion TECHNIQUE: Routine brain MRI protocol without and with contrast including diffusion images. Perfusion imaging also performed. MQ: MRBWOW_2 Contrast: 16 mL Dotarem IV COMPARISON: Brain MRI 10/19/2023 RESULT: Acute Change: There is no evidence of restricted diffusion to suggest an acute infarct. Hemorrhage: No evidence of prior parenchymal hemorrhage on the gradient echo images. Mass Lesion/ Mass Effect: Stable from 10/19/2023 examination is a heterogeneous area of T2 hyperintensity in the spleen. No associated pathologic enhancement. Smaller more well marginated area of T1 hypointensity in the midline measures 3 mm and this is likewise unchanged. No associated reduced diffusivity. Perfusion: MR perfusion study was performed of the entire brain following bolus intravenous administration of gadolinium utilizing dynamic susceptibility-weighted contrast-enhanced acquisition. Perfusion imaging/postprocessing is of adequate quality. No perfusion abnormality. Chronic Change: Scattered punctate foci of increased T2 and FLAIR signal are noted in the supratentorial white matter which is a nonspecific finding, but likely represents minimal chronic microvascular ischemia. Parenchyma: No significant volume loss for age. The brain parenchyma is otherwise within normal limits of signal intensity and morphology. Ventricles: Normal caliber and morphology. Skull Base: Hypothalamic and pituitary region are grossly normal. Craniocervical junction is normal. No significant marrow replacement process. Vasculature: Major intracranial arterial structures, and dural venous sinuses show typical flow void, suggesting patency by spin echo criteria. Other: The visualized paranasal sinuses and mastoid air cells are clear. The orbits and extracranial soft tissues are unremarkable. DIVISION OF RADIOLOGY Provider, Lor Combs [facility] - 01/17/2024 * * *Final Report* * * DATE OF EXAM: Jan 17 2024 10:40AM [facility] 0295 - MRI BRAIN WO/W IVCON / PROCEDURE REASON: Brain lesion * * * * Physician Interpretation * * * * EXAMINATION: MRI BRAIN WO/W IVCON CLINICAL HISTORY: Brain lesion TECHNIQUE: Routine brain MRI protocol without and with contrast including diffusion images. Perfusion imaging also performed. MQ: MRBWOW_2 Contrast: 16 mL Dotarem IV COMPARISON: Brain MRI 10/19/2023 RESULT: Acute Change: There is no evidence of restricted diffusion to suggest an acute infarct. Hemorrhage: No evidence of prior parenchymal hemorrhage on the gradient echo images. Mass Lesion/ Mass Effect: Stable from 10/19/2023 examination is a heterogeneous area of T2 hyperintensity in the spleen. No associated pathologic enhancement. Smaller more well marginated area of T1 hypointensity in the midline measures 3 mm and this is likewise unchanged. No associated reduced diffusivity. Perfusion: MR perfusion study was performed of the entire brain following bolus intravenous administration of gadolinium utilizing dynamic susceptibility-weighted contrast-enhanced acquisition. Perfusion imaging/postprocessing is of adequate quality. No perfusion abnormality. Chronic Change: Scattered punctate foci of increased T2 and FLAIR signal are noted in the supratentorial white matter which is a nonspecific finding, but likely represents minimal chronic microvascular ischemia. Parenchyma: No significant volume loss for age. The brain parenchyma is otherwise within normal limits of signal intensity and morphology. Ventricles: Normal caliber and morphology. Skull Base: Hypothalamic and pituitary region are grossly normal. Craniocervical junction is normal. No significant marrow replacement process. Vasculature: Major intracranial arterial structures, and dural venous sinuses show typical flow void, suggesting patency by spin echo criteria. Other: The visualized paranasal sinuses and mastoid air cells are clear. The orbits and extracranial soft tissues are unremarkable. IMPRESSION IMPRESSION: Stable appearance the brain from 10/19/2023. Stable heterogeneous signal changes in the splenium of the corpus callosum without enhancement, reduced diffusivity or perfusional abnormality. Physical Chemistry Teacher: RHIANNON Transcribe Date/Time: Jan 17 2024 11:15A Dictated by : KERRI HOYT DO This examination was interpreted and the report reviewed and electronically signed by: KERRI HOYT DO on Jan 17 2024 11:23AM EST [facility] Radiology Study observation (narrative) [facility] MR Brain WO and W contrast I VOrdered By: [facility] Provider on 01-17-2024 [facility] MRI BRAIN WO/W IVCONon 01-16 MRI BRAIN WO/W IVCON * * *Final Report* * * DATE OF EXAM: Jan 17 2024 10:40AM [facility] 0295 - MRI BRAIN WO/W IVCON / PROCEDURE REASON: Brain lesion * * * * Physician Interpretation * * * * EXAMINATION: MRI BRAIN WO/W IVCON CLINICAL HISTORY: Brain lesion TECHNIQUE: Routine brain MRI protocol without and with contrast including diffusion images. Perfusion imaging also performed. MQ: MRBWOW_2 Contrast: 16 mL Dotarem IV COMPARISON: Brain MRI 10/19/2023 RESULT: Acute Change: There is no evidence of restricted diffusion to suggest an acute infarct. Hemorrhage: No evidence of prior parenchymal hemorrhage on the gradient echo images. Mass Lesion/ Mass Effect: Stable from 10/19/2023 examination is a heterogeneous area of T2 hyperintensity in the spleen. No associated pathologic enhancement. Smaller more well marginated area of T1 hypointensity in the midline measures 3 mm and this is likewise unchanged. No associated reduced diffusivity. Perfusion: MR perfusion study was performed of the entire brain following bolus intravenous administration of gadolinium utilizing dynamic susceptibility-weighted contrast-enhanced acquisition. Perfusion imaging/postprocessing is of adequate quality. No perfusion abnormality. Chronic Change: Scattered punctate foci of increased T2 and FLAIR signal are noted in the supratentorial white matter which is a nonspecific finding, but likely represents minimal chronic microvascular ischemia. Parenchyma: No significant volume loss for age. The brain parenchyma is otherwise within normal limits of signal intensity and morphology. Ventricles: Normal caliber and morphology. Skull Base: Hypothalamic and pituitary region are grossly normal. Craniocervical junction is normal. No significant marrow replacement process. Vasculature: Major intracranial arterial structures, and dural venous sinuses show typical flow void, suggesting patency by spin echo criteria. Other: The visualized paranasal sinuses and mastoid air cells are clear. The orbits and extracranial soft tissues are unremarkable. IMPRESSION: Stable appearance the brain from 10/19/2023. Stable heterogeneous signal changes in the splenium of the corpus callosum without enhancement, reduced diffusivity or perfusional abnormality. Physical Chemistry Teacher: PSCB Transcribe Date/Time: Jan 17 2024 11:15A Dictated by : KERRI HOYT DO This examination was interpreted and the report reviewed and electronically signed by: KERRI HOYT DO on Jan 17 2024 11:23AM EST [id number] Normal [facility] CNCONon 12-22-2023 CNCON Consults (NE50MN) ----- JOSIE LANDIS ([id number]) 1965 F Date Time Provider Department 12/22/23 SUJEY LUONG NE50MN During your visit today, we recorded the following information about you: Nena Smith APRN.CNP 12/22/2023 5:32 PM Signed [facility] Epilepsy Center Review of Records Patient: Josie Landis Address: [address] [place] [address] Impression: Review of records for Josie Landis, a 58 year old female, being referred by Libertad Santiago CNP [[facility] Cerebrovascular [facility]] to Any Epileptologist for further evaluation and treatment. Patient has previously diagnosed seizures and PNES. EEG report from > 15 years ago is not available. 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 Patient has trialed 0 AEDs. As she is reporting 2 recent episodes and her prior EEG was done at an outside facility > 15 years ago, VEEG is indicated for event characterization and diagnostic evaluation to determine best treatment options. Summary: Onset: 5 years old Recent Seizure Frequency: 2 in the last 4 weeks (one 2 weeks ago, one 4 weeks ago); before those, she had not had an episode in 6 years Seizure Description(s) Available: Type A: Sitting up, head went forward, eyes rolled back, hand trembling, urinary incontinence, loss of consciousness, felt odd afterwards Duration: 1 minute Current AED(s): None Previous AED(s): None PMH: CAD w/3 stents placed May 2022, HTN, hyperlipidemia, stroke, GERD, basal cell ca, bipolar disorder, PNES PRIOR EVALUATIONS: [facility] EEG (Report not available): MRI brain wo/w contrast ([facility], 10/19/2023): IMPRESSION: Unchanged appearance of the brain compared to most recent MRI performed 07/19/2023 with no new or enlarging lesions identified. No abnormal enhancement. Primary differential considerations include sequelae of nonspecific inflammatory and 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 process with neoplasm considered less likely. Brain biopsy ([facility], 11/04/2022): Component FINAL DIAGNOSIS A. Brain, right corpus callosum lesion, stereotactic biopsy - Minute focus of atypical cells in a reactive background; - See comment. B. Brain, right corpus callosum lesion, stereotactic biopsy - Gliosis with scattered macrophages. Diagnosis Comment The biopsy shows focal hypercellularity at one corner (less than 5% of tissue submitted) with atypical angulated elongated nuclei and fibrillary background suspicious for glioma. Unfortunately this area is only present on the frozen section slide and is cut through on the resubmitted tissue. It is not present in any of the other slides/block submitted. The remainder of the specimen shows white matter with scattered foamy macrophages and gliosis. Part B shows white matter with scattered macrophages and gliosis but does not have the atypical area noted in frozen section. Immunohistochemical stains performed to help with classification show the following (B1): CD68 highlights scattered macrophages; IDH1 R132H negative (wt); ATRX retained; p53 strong nuclear positivity 10%; Ki-67 proliferative index 1%; BRAF V600E negative (wildtype); H3 K27M negative (wt); H3 K27me3 retained; Luxol fast blue focal mild loss; Neurofilament cocktail with focal decreased axons; GMS negative for fungus; Gram negative for bacteria. FISH for EGFR : The following FISH results were obtained: EGFR: 1.78 CEP7: 2.15 EGFR/CEP7 ratio: 0.83 (Reference Range: Amplified >2.00) INTERPRETATION: Negative for amplification of the EGFR gene. BEATRICE Recommendations: - Admit to EMU for VEEG monitoring, diagnostic evaluation Location: Main [place] - Visit with epileptologist prior to admission - Additional testing to be considered by epilepsy clinicians Signed: Nena Smith APRN.TECHNOLOGY MANAGER December 22, [address] Luong for review and recommendations. MD Recommendations (as discussed with Dr. Luong): - Please start with a long EEG and consultation with an Epileptologist. Allergies As of Date: 12/22/2023 Noted Allergy Reaction BUDESONIDE-FORMOTEROL 06/24/2022 14 - Other: See Comments ASPIRIN 10/08/2021 14 - Other: See Comments LATEX 10/08/2021 14 - Other: See Comments PENICILLINS 10/08/2021 14 - Other: See Comments ADHESIVE TAPE-SILICONES 10/08/2021 14 - Other: See Comments BUDESONIDE 10/08/2021 14 - Other: See Comments FORMOTEROL 10/08/2021 14 - Other: See Comments Date Reviewed: 11/29/2023 Reviewed by: Robbin Pendleton, KEZIA - Fully Assessed Primary Visit Diagnosis:Seizures (more content not included)... Normal [facility] 11-29-2023 [facility] HNO ID: [id number] Author: DICK LEE RT(R) Service: Radiology Author Type: Technologist Type: Allied Health Filed: 11/29/2023 14:56 Note Text: Radiology Service Progress Note PATIENT NAME: Josie Landis DATE OF SERVICE: November 29, 2023 TIME: 2:56 PM PATIENT IDENTITY VERIFICATION COMPLETED USING TWO (2) IDENTIFIERS: Name and Date of confirmed by patient verbally and Name and Date of confirmed by identification band. FALL SCREENING: Has the patient had 2 falls in the last year or 1 fall with injury or currently using an Ambulatory Assistive Device (Walker, Cane, Wheelchair, Crutches, etc.)? Emergency Room Patient: Screened in ED PATIENT GENDER DATA: Female. status: : No status: NO. PATIENT RELEVANT IMPLANT DATA REVIEWED: Yes PATIENT PRESENTS WITH AN IMPLANTABLE OR ATTACHED GRILL ASSOCIATE: No RADIOLOGY DEPARTMENT: CT; Exam(s) Completed: Brain PERIPHERAL IV DATA: Not applicable SIGNED BY: RT Javid(R) November 29, 2023 2:56 PM Normal [facility] CBC W Auto Differential pane l (Bld)on 11-29-2023 Basophils (Bld) [#/Vol] 0.04 10*3/uL Normal <0.11 [facility] Comment on above: Order Comment: Speci men Type: BLOOD SPECIMEN [facility] Address: [address] [place] [address] Performed By: #### 5 7021-8 #### [facility] CLIA [id number] [address] [place] [address] [place] Basophils/100 WBC (Bld) 0.8 % Normal [facility] Comment on above: Order Comment: Speci men Type: BLOOD SPECIMEN [facility] Facility: [facility] Address: [address] [place] [address] Performed By: #### 5 7021-8 #### [facility] CLIA [id number] [address] [place] [address] [place] Differential cell count method Nom (Bld) Auto Normal [facility] Comment on above: Order Comment: Speci men Type: BLOOD SPECIMEN [facility]: [facility] Address: [address] [place] [address] Performed By: #### 5 7021-8 #### [facility] CLIA [id number] [address] [place] [address] [place] Eosinophils (Bld) [#/Vol] 0.13 10*3/uL Normal <0.46 [facility] Comment on above: Order Comment: Speci men Type: BLOOD SPECIMEN [facility] Address: [address] [place] [address] Performed By: #### 5 7021-8 #### [facility] CLIA [id number] [address] [place] Eosinophils/100 WBC (Bld) 2.5 % Normal [facility] Comment on above: Order Comment: Speci men Type: BLOOD SPECIMEN [facility]: [facility] Address: [address] [place] [address] Performed By: #### 5 7021-8 #### [facility] CLIA [id number] [address] [place] Erythrocyte distribution width (RBC) [Ratio] 15.1 % High 11.5-15.0 [facility] Comment on above: Order Comment: Speci men Type: BLOOD SPECIMEN Ordering Facility: [facility] Address: [address] [place] [address] Performed By: #### 5 7021-8 #### [facility] CLIA [id number] [address] Hematocrit (Bld) [Volume fraction] 41.9 % Normal 36.0-46.0 [facility] Comment on above: Order Comment: Speci men Type: BLOOD SPECIMEN Ordering Facility: [facility] Address: [address] [place] [address] Performed By: #### 5 7021-8 #### [facility] CLIA [id number] [address] Hemoglobin (Bld) [Mass/Vol] 13.2 g/dL Normal 11.5-15.5 [facility] Comment on above: Order Comment: Speci men Type: BLOOD SPECIMEN Ordering Facility: [facility] Address: [address] [place], [place] [address] Performed By: #### 5 7021-8 #### [facility] CLIA [id number] [address] [place] Immature granulocytes (Bld) [#/Vol] 10*3/uL Normal <0.10 [facility] Comment on above: Order Comment: Speci men Type: BLOOD SPECIMEN Ordering Facility: [facility] Address: [address] [place] [address] Performed By: #### 5 7021-8 #### [facility] CLIA [id number] [address] Immature granulocytes/100 WBC (Bld) 0.4 % Normal [facility] Comment on above: Order Comment: Speci men Type: BLOOD SPECIMEN Ordering Facility: [facility] Address: [address] [place] [address] Performed By: #### 5 7021-8 #### [facility] CLIA [id number] [address] [place] [address] [place] Lymphocytes (Bld) [#/Vol] 1.43 10*3/uL Normal 1.00-4.00 [facility] Comment on above: Order Comment: Speci men Type: BLOOD SPECIMEN Ordering Facility: [facility] Address: [address] [place] [address] Performed By: #### 5 7021-8 #### [facility] CLIA [id number] [address] Lymphocytes/100 WBC (Bld) 27.6 % Normal [facility] Comment on above: Order Comment: Speci men Type: BLOOD SPECIMEN Ordering Facility: [facility] Address: [address] [place] [address] Performed By: #### 5 7021-8 #### [facility] CLIA [id number] [address] [place] [address] [place] MCH (RBC) [Entitic mass] 25.8 pg Low 26.0-34.0 [facility] Comment on above: Order Comment: Speci men Type: BLOOD SPECIMEN Ordering Facility: [facility] Address: [address] [place] [address] Performed By: #### 5 7021-8 #### [facility] CLIA [id number] [address] MCHC (RBC) [Mass/Vol] 31.5 g/dL Normal 30.5-36.0 [facility] Comment on above: Order Comment: Speci men Type: BLOOD SPECIMEN Ordering Facility: [facility] Address: [address] [place] [address] Performed By: #### 5 7021-8 #### [facility] CLIA [id number] [address] [place] MCV (RBC) [Entitic vol] 81.8 fL Normal 80.0-100.0 [facility] Comment on above: Order Comment: Speci men Type: BLOOD SPECIMEN Ordering Facility: [facility] Address: [address] [place] [address] Performed By: #### 5 7021-8 #### [facility] CLIA [id number] [address] [place] Monocytes (Bld) [#/Vol] 0.40 10*3/uL Normal <0.87 [facility] Comment on above: Order Comment: Speci men Type: BLOOD SPECIMEN Ordering Facility: [facility] Address: [address] [place] [address] Performed By: #### 5 7021-8 #### [facility] CLIA [id number] [address] Monocytes/100 WBC (Bld) 7.7 % Normal [facility] Comment on above: Order Comment: Speci men Type: BLOOD SPECIMEN Ordering Facility: [facility] Address: [address] [place] [address] Performed By: #### 5 7021-8 #### [facility] CLIA [id number] [address] [place] [address] [place] Neutrophils (Bld) [#/Vol] 3.17 10*3/uL Normal 1.45-7.50 [facility] Comment on above: Order Comment: Speci men Type: BLOOD SPECIMEN Ordering Facility: [facility] Address: [address] [place] [address] Performed By: #### 5 7021-8 #### [facility] CLIA [id number] [address] Neutrophils/100 WBC (Bld) 61.0 % Normal [facility] Comment on above: Order Comment: Speci men Type: BLOOD SPECIMEN Ordering Facility: [facility] Address: [address] [place] [address] Performed By: #### 5 7021-8 #### [facility] CLIA [id number] [address] [place] [address] [place] Nucleated RBC (Bld) [#/Vol] 10*3/uL Normal <0.01 [facility] Comment on above: Order Comment: Speci men Type: BLOOD SPECIMEN Ordering Facility: [facility] Address: [address] [place] [address] Performed By: #### 5 7021-8 #### [facility] CLIA [id number] [address] [place] Nucleated RBC/100 WBC (Bld) [Ratio] 0.0 /100 WBC Normal [facility] Comment on above: Order Comment: Speci men Type: BLOOD SPECIMEN Ordering Facility: [facility] Address: [address] [place] [address] Performed By: #### 5 7021-8 #### [facility] CLIA [id number] [address] [place] Platelet mean volume (Bld) [Entitic vol] 8.6 fL Low 9.0-12.7 [facility] Comment on above: Order Comment: Speci men Type: BLOOD SPECIMEN Ordering Facility: [facility] Address: [address] [place] [address] Performed By: #### 5 7021-8 #### [facility] CLIA [id number] [address] [place] Platelets (Bld) [#/Vol] 192 10*3/uL Normal 150-400 [facility] Comment on above: Order Comment: Speci men Type: BLOOD SPECIMEN Ordering Facility: [facility] Address: [address] [place] [address] Performed By: #### 5 7021-8 #### [facility] CLIA [id number] [address] RBC (Bld) [#/Vol] 5.12 10*6/uL Normal 3.90-5.20 [facility] Comment on above: Order Comment: Specbianca sanchez Type: BLOOD SPECIMEN Ordering Facility: [facility] Address: [address] [place] [id number] Performed By: #### 5 7021-8 #### [facility] CLIA [id number] [address] WBC (Bld) [#/Vol] 5.19 10*3/uL Normal 3.70-11.00 [facility] Comment on above: Order Comment: Loni sanchez Type: BLOOD SPECIMEN Ordering Facility: [facility] Address: [address] [place], [place] [address] [address] Performed By: #### 5 7021-8 #### [facility] CLIA [id number] [address] CNPNon 11-29-2023 CNPN Telephone (NSCAMN) ----- JOSIE LANDIS ([id number]) 1965 F Date Time Provider Department 11/29/23 CODIE SOTO [facility] During your visit today, we recorded the following information about you: Codie Soto MD 11/29/2023 6:04 PM Signed Received a call from Jimmie, caregiver at emergency department seen the patient. He tells me, that this is a CT of the head, and all the workup and the exam is unremarkable and they are planning to discharge the patient with follow-up. Recommended, for them to contact neurology, call today, on the case by them. The patient, that this patient has no definite diagnosis from the brain lesion in the corpus callosum splenium, she also had, and some anoxia presumably from the stroke, has cardiac issues as well, so the event that she had, reportedly, as a likely a seizure loss of consciousness with bladder incontinence is worrisome. My take on this event, and that this could have been a seizure, as she had seizures when she was a child, or the neurological event like a stroke, manifested as an event that looks like a seizure or seizure, could have been a cardiac event, so that needs to be elucidated. Hence, my take is that the patient would likely need to be admitted. MRIs of the brain and EEGs, this patient asked me [facility] does not have the capacity to do all of this, tell the ED caregiver Jimmie, then they may need to transfer the patient as well. Again the above is my take on this patient, but he is going to talk to the neurology on-call, and they will decide what to do for the patient about disposition and I will leave it to them to decide on that. Codie Soto MD Allergies As of Date: 11/29/2023 Noted Allergy Reaction BUDESONIDE-FORMOTEROL 06/24/2022 14 - Other: See Comments ASPIRIN 10/08/2021 14 - Other: See Comments LATEX 10/08/2021 14 - Other: See Comments PENICILLINS 10/08/2021 14 - Other: See Comments ADHESIVE TAPE-SILICONES 10/08/2021 14 - Other: See Comments BUDESONIDE 10/08/2021 14 - Other: See Comments FORMOTEROL 10/08/2021 14 - Other: See Comments Date Reviewed: 11/29/2023 Reviewed by: Robbin Pendleton, KEZIA - Fully Assessed Prescriptions as of 11/29/2023 - iv contrast (will be provided with radiology test) MRI Brain Inject, intravenously, once for 1 dose.No IV access, insert saline lock prior to beginning of sedation, infusion, injection of imaging exam.Discontinue saline lock post exam. If Pt. has a central line or IVAD, may access for administration according to line specific nursing protocol.Once exam is complete flush line and de-access according to line specific nursing protocol in the MR contrast administration guidelines link - lactobacillus combination no.4 (PROBIOTIC) 3 billion cell cap - isosorbide mononitrate ER (IMDUR) 30 mg 24 hr tablet Take 1 tablet by mouth every afternoon. - aspirin, enteric coated (ASPIRIN, ENTERIC COATED) 81 mg EC tablet Take 1 tablet by mouth every afternoon. - albuterol HFA (PROVENTIL HFA, VENTOLIN HFA) 90 mcg/actuation inhaler Inhale as instructed. - evolocumab 140 mg/mL subcutaneous pen injector (REPATHA SURECLICK) Inject 140 mg subcutaneously every 2 weeks. - ondansetron (ZOFRAN) 8 mg tablet Take 1 tablet by mouth every 8 hours as needed for nausea/vomiting. - pantoprazole DR (PROTONIX) 40 mg tablet Take 1 tablet by mouth once daily. - acetaminophen (TYLENOL) 325 mg tablet 2 tablets by ORAL/FEEDING TUBE route every 4 hours as needed for pain. - senna-docusate (SENNA-S) 8.6-50 mg per tablet 1 tablet by ORAL/FEEDING TUBE route twice daily. - hydroCHLOROthiazide 12.5 mg tablet Take 12.5 mg by mouth once daily. - buPROPion XL (WELLBUTRIN XL) 300 mg 24 hr tablet Take 300 mg by mouth every morning. - clonazePAM (KLONOPIN) 0.5 mg tablet Take 0.5 mg by mouth twice daily as needed for anxiety. - traZODone (DESYREL) 100 mg tablet Take 300 mg by mouth daily at bedtime. - vilazodone (VIIBRYD) 40 mg tablet Take 40 mg by mouth once daily. - losartan (COZAAR) 25 mg tablet Take 25 mg by mouth once daily. - metoprolol succinate ER (TOPROL XL) 25 mg 24 hr tablet Take 12.5 mg by mouth once daily. - ezetimibe (ZETIA) 10 mg tablet Take 10 mg by mouth once daily. - cariprazine (VRAYLAR) 3 mg capsule Take 3 mg by mouth once daily. 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 [facility] JOSIE LANDIS ([id number]) 1965 F Date Time Provider Department 11/29/23 TRISTON LOZANO During your visit today, we recorded the following information about you: Pattie Velazquez 11/29/2023 4:25 PM Signed Patient was seen in [facility] 11/29/23 for seizure like activity and advised to follow up with neurology. Patient and are requesting follow up appointment with Dr. Lozano, preferable virtually if possible. No openings available with Dr. Lozano within time frame ED is requesting patient follow up. Please advise. Okay to follow up with Dr. Lozano or should patient be seen by different provider? Jennifer Kennedy RN 11/30/2023 3:53 PM Signed This RN called and spoke to patient. Advised her to schedule urgent appointment with first available virtual visit with any provider post ED visit. Provided number for patient to call and schedule. Patient appreciative of call and expresses intent to comply. Encounter close. Jennifer Kennedy RN November 30, 2023 3:52 PM Allergies As of Date: 11/29/2023 Noted Allergy Reaction BUDESONIDE-FORMOTEROL 06/24/2022 14 - Other: See Comments ASPIRIN 10/08/2021 14 - Other: See Comments LATEX 10/08/2021 14 - Other: See Comments PENICILLINS 10/08/2021 14 - Other: See Comments ADHESIVE TAPE-SILICONES 10/08/2021 14 - Other: See Comments BUDESONIDE 10/08/2021 14 - Other: See Comments FORMOTEROL 10/08/2021 14 - Other: See Comments Date Reviewed: 11/29/2023 Reviewed by: Robbin Pendleton, RN - Fully Assessed Reason for Visit: Appointment [186] Prescriptions as of 11/30/2023 - iv contrast (will be provided with radiology test) MRI Brain Inject, intravenously, once for 1 dose.No IV access, insert saline lock prior to beginning of sedation, infusion, injection of imaging exam.Discontinue saline lock post exam. If Pt. has a central line or IVAD, may access for administration according to line specific nursing protocol.Once exam is complete flush line and de-access according to line specific nursing protocol in the MR contrast administration guidelines link - lactobacillus combination no.4 (PROBIOTIC) 3 billion cell cap - isosorbide mononitrate ER (IMDUR) 30 mg 24 hr tablet Take 1 tablet by mouth every afternoon. - aspirin, enteric coated (ASPIRIN, ENTERIC COATED) 81 mg EC tablet Take 1 tablet by mouth every afternoon. - albuterol HFA (PROVENTIL HFA, VENTOLIN HFA) 90 mcg/actuation inhaler Inhale as instructed. - evolocumab 140 mg/mL subcutaneous pen injector (REPATHA SURECLICK) Inject 140 mg subcutaneously every 2 weeks. - ondansetron (ZOFRAN) 8 mg tablet Take 1 tablet by mouth every 8 hours as needed for nausea/vomiting. - pantoprazole DR (PROTONIX) 40 mg tablet Take 1 tablet by mouth once daily. - acetaminophen (TYLENOL) 325 mg tablet 2 tablets by ORAL/FEEDING TUBE route every 4 hours as needed for pain. - senna-docusate (SENNA-S) 8.6-50 mg per tablet 1 tablet by ORAL/FEEDING TUBE route twice daily. - hydroCHLOROthiazide 12.5 mg tablet Take 12.5 mg by mouth once daily. - buPROPion XL (WELLBUTRIN XL) 300 mg 24 hr tablet Take 300 mg by mouth every morning. - clonazePAM (KLONOPIN) 0.5 mg tablet Take 0.5 mg by mouth twice daily as needed for anxiety. - traZODone (DESYREL) 100 mg tablet Take 300 mg by mouth daily at bedtime. - vilazodone (VIIBRYD) 40 mg tablet Take 40 mg by mouth once daily. - losartan (COZAAR) 25 mg tablet Take 25 mg by mouth once daily. - metoprolol succinate ER (TOPROL XL) 25 mg 24 hr tablet Take 12.5 mg by mouth once daily. - ezetimibe (ZETIA) 10 mg tablet Take 10 mg by mouth once daily. - cariprazine (VRAYLAR) 3 mg capsule Take 3 mg by mouth once daily. 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 Huizar first. History of Seizure : Yes Tamiko Barcenas RN 11/29/2023 11:58 AM Signed Call made to patient regarding MyChart message. She states that she had a seizure Jackson evening around 8:30 PM that was unlike the seizures she has had before. She describes it as first telling her that she doesn't feel good, then she lost consciousness and her eyes rolled into the back of her head. She also lost bladder control during this event. When she awoke, she was confused and did not know where she was. She did not take any medication to come out of the seizure, she came out of it herself. She did take zofran for nausea following this event. She is not on any anti-epileptic drugs at this time. This morning she said she feels fine with no lasting effects. Discussed with Dr. Huizar and his recommendation is to be seen in the ED to rule out any other causes for this seizure like stroke or cardiac event. Relayed this to patient and they have chosen to go to [facility] to be seen. Allergies As of Date: 11/29/2023 Noted Allergy Reaction BUDESONIDE-FORMOTEROL 06/24/2022 14 - Other: See Comments ASPIRIN 10/08/2021 14 - Other: See Comments LATEX 10/08/2021 14 - Other: See Comments PENICILLINS 10/08/2021 14 - Other: See Comments ADHESIVE TAPE-SILICONES 10/08/2021 14 - Other: See Comments BUDESONIDE 10/08/2021 14 - Other: See Comments FORMOTEROL 10/08/2021 14 - Other: See Comments Date Reviewed: 10/19/2023 Reviewed by: David Justice, RT(R) - Fully Assessed Reason for Visit: Seizure Call [Other] Prescriptions as of 11/29/2023 - iv contrast (will be provided with radiology test) MRI Brain Inject, intravenously, once for 1 dose.No IV access, insert saline lock prior to beginning of sedation, infusion, injection of imaging exam.Discontinue saline lock post exam. If Pt. has a central line or IVAD, may access for administration according to line specific nursing protocol.Once exam is complete flush line and de-access according to line specific nursing protocol in the MR contrast administration guidelines link - lactobacillus combination no.4 (PROBIOTIC) 3 billion cell cap - isosorbide mononitrate ER (IMDUR) 30 mg 24 hr tablet Take 1 tablet by mouth every afternoon. - aspirin, enteric coated (ASPIRIN, ENTERIC COATED) 81 mg EC tablet Take 1 tablet by mouth every afternoon. - albuterol HFA (PROVENTIL HFA, VENTOLIN HFA) 90 mcg/actuation inhaler Inhale as instructed. - evolocumab 140 mg/mL subcutaneous pen injector (REPATHA SURECLICK) Inject 140 mg subcutaneously every 2 weeks. - ondansetron (ZOFRAN) 8 mg tablet Take 1 tablet by mouth every 8 hours as needed for nausea/vomiting. - pantoprazole DR (PROTONIX) 40 mg tablet Take 1 tablet by mouth once daily. - acetaminophen (TYLENOL) 325 mg tablet 2 tablets by ORAL/FEEDING TUBE route every 4 hours as needed for pain. - senna-docusate (SENNA-S) 8.6-50 mg per tablet 1 tablet by ORAL/FEEDING TUBE route twice daily. - hydroCHLOROthiazide 12.5 mg tablet Take 12.5 mg by mouth once daily. - buPROPion XL (WELLBUTRIN XL) 300 mg 24 hr tablet Take 300 mg by mouth every morning. - clonazePAM (KLONOPIN) 0.5 mg tablet Take 0.5 mg by mouth twice daily as needed for anxiety. - traZODone (DESYREL) 100 mg tablet Take 300 mg by mouth daily at bedtime. - vilazodone (VIIBRYD) 40 mg tablet Take 40 mg by mouth once daily. - losartan (COZAAR) 25 mg tablet Take 25 mg by mouth once daily. - metoprolol succinate ER (TOPROL XL) 25 mg 24 hr tablet Take 12.5 mg by mouth once daily. - ezetimibe (ZETIA) 10 mg tablet Take 10 mg by mouth once daily. - cariprazine (VRAYLAR) 3 mg capsule Take 3 mg by mouth once daily. 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 CRP SerPl-mCncon 11-29-2023 CRP [Mass/Vol] mg/L Normal <0.9 [facility] Comment on above: Order Comment: Speci men Type: BLOOD SPECIMEN Ordering Facility: [facility] Address: [address] [place] [address] Performed By: #### 1 9123-9, 1987-09, [id number], 68845-3 #### [facility] CLIA [id number] 1000 [place], [place] [id number] [place] [address] CT BRAIN WO IVCONon 11-29-19 CT BRAIN WO IVCON * * *Final Report* * * DATE OF EXAM: Nov 29 2023 2:56PM [facility] 0504 - CT BRAIN WO IVCON / PROCEDURE REASON: Seizure disorder, clinical change * * * * Physician Interpretation * * * * EXAMINATION: CT BRAIN WO IVCON CLINICAL HISTORY: Seizure disorder. TECHNIQUE: Serial axial images without IV contrast were obtained from the vertex to the foramen magnum. MQ: CTBWO_3 CT Radiation dose: Integrated Dose-Length Product (DLP) for this visit = 778 mGy*cm CT Dose Reduction Employed: No dose reduction techniques were required COMPARISON: October 19, 2023. RESULT: Post-operative change: None. Acute change: No evidence of an acute infarct or other acute parenchymal process. Hemorrhage: No evidence of acute intracranial hemorrhage. ECASS hemorrhagic transformation score: Not Applicable Mass Lesion / Mass Effect: There is no evidence of an intracranial mass or extraaxial fluid collection. No significant mass effect. Chronic change: Scattered patchy foci of low attenuation are present within supratentorial white matter which is a nonspecific finding but likely represents mild microvascular ischemia. Parenchyma: There is no significant volume loss. The brain parenchyma is otherwise within normal limits for age. Ventricles: The ventricles are within normal limits of size and configuration for age. Paranasal sinuses and skull base: The visualized paranasal sinuses are grossly clear. The skull base and imaged soft tissues are unremarkable. Localizer images: No additional findings. IMPRESSION: No acute intracranial abnormality. Physical Chemistry Teacher: RHIANNON Transcribe Date/Time: Nov 29 2023 3:12P Dictated by : KERRI SAUCEDA MD This examination was interpreted and the report reviewed and electronically signed by: KERRI SAUCEDA MD on Nov 29 2023 3:16PM EST [id number] Normal [facility] Comprehensive metabolic 2000 panelon 11-29-2023 Albumin [Mass/Vol] 4.0 g/dL Normal 3.9-4.9 [facility] Comment on above: Order Comment: Loni sanchez Type: BLOOD SPECIMEN Ordering Facility: [facility] Address: [address] [place] [address] Performed By: #### 1 9123-01, 1987-09, [id number], #### [facility] CLIA [id number] [address] [place] ALP [Catalytic activity/Vol] 88 U/L Normal 34-123 [facility] Comment on above: Order Comment: Loni sanchez Type: BLOOD SPECIMEN Ordering Facility: [facility] Address: [address] [place] [address] Performed By: #### 1 9123-01, 1987-09, [id number], #### [facility] CLIA [id number] [address] STATES [place] [facility] ALT [Catalytic activity/Vol] 20 U/L Normal 7-38 [facility] Comment on above: Order Comment: Loni sanchez Type: BLOOD SPECIMEN Ordering Facility: [facility] Address: [address] [place] [address] Performed By: #### 1 9123-01, 1987-09, [id number], #### [facility] CLIA [id number] [address] [place] [address] [place] Anion gap [Moles/Vol] 9 mmol/L Normal 8-15 [facility] Comment on above: Order Comment: Speci men Type: BLOOD SPECIMEN Ordering Facility: [facility] Address: [address] [place] [id number] Performed By: #### 1 9123-01, 1987-09, [id number], #### [facility] CLIA [id number] [address] [place] [address] [place] AST [Catalytic activity/Vol] 19 U/L Normal 13-35 [facility] Comment on above: Order Comment: Speci men Type: BLOOD SPECIMEN Ordering Facility: [facility] Address: [address] [place] [address] Performed By: #### 1 9123-01, 1987-09, [id number], #### [facility] CLIA [id number] [address] [place] [address] [place] Bilirubin [Mass/Vol] 0.4 mg/dL Normal 0.2-1.3 [facility] Comment on above: Order Comment: Speci men Type: BLOOD SPECIMEN Ordering Facility: [facility] Address: [address] [place] [address] Performed By: #### 1 9123-01, 1987-09, [id number], #### [facility] CLIA [id number] [address] [place] Calcium [Mass/Vol] 9.1 mg/dL Normal 8.5-10.2 [facility] Comment on above: Order Comment: Speci men Type: BLOOD SPECIMEN Ordering Facility: [facility] Address: [address] [place] [id number] Performed By: #### 1 9123-01, 1987-09, [id number], #### [facility] CLIA [id number] [address] [place] [address] [place] Chloride [Moles/Vol] 104 mmol/L Normal 98-107 [facility] Comment on above: Order Comment: Speci men Type: BLOOD SPECIMEN Ordering Facility: [facility] Address: [address] [place] [address] Performed By: #### 1 9123-01, 1987-09, [id number], #### [facility] CLIA [id number] [address] [place] [address] [place] CO2 [Moles/Vol] 26 mmol/L Normal 22-30 [facility] Comment on above: Order Comment: Speci men Type: BLOOD SPECIMEN Ordering Facility: [facility] Address: [address] [place] [address] Performed By: #### 1 9123-01, 1987-09, [id number], #### [facility] CLIA [id number] [address] [place] [address] [place] Creatinine [Mass/Vol] 0.93 mg/dL Normal 0.58-0.96 [facility] Comment on above: Order Comment: Speci men Type: BLOOD SPECIMEN Ordering Facility: [facility] Address: [address] [place] [address] Performed By: #### 1 9123-01, 1987-09, [id number], #### [facility] CLIA [id number] [address] [place] [address] [place] [facility] Creatinine and Glomerular filtration rate.predicted panel (S/P/Bld) 72 mL/min/1.73m??? Normal >=60 [facility] Comment on above: Order Comment: Speci men Type: BLOOD SPECIMEN Ordering Facility: [facility] Address: [address] [place] [address] Result Comment: Elana mated Glomerular Filtration Rate (eGFR) is calculated using the 2020 CKD-EPI creatinine equation. This equation utilizes serum creatinine, sex, and age as parameters. The creatinine assay has traceable calibration to isotope dilution-mass spectrometry. Refer to KDIGO guidelines for clinical interpretation. In patients with unstable renal function, e.g. those with acute kidney injury, the eGFR may not accurately reflect actual GFR. Performed By: #### 1 9123-01, 1987-09, [id number], #### [facility] CLIA [id number] [address] [place] [address] [place] Glucose [Mass/Vol] 92 mg/dL Normal 74-99 [facility] Comment on above: Order Comment: Loni sanchez Type: BLOOD SPECIMEN Ordering Facility: [facility] Address: [address] [place] [address] Result Comment: The [place] [employer] (ADA) provides guidance for cutoff values for fasting glucose and random glucose. The ADA defines fasting as no caloric intake for at least 8 hours. Fasting plasma glucose results between 100 to 125 mg/dL indicate increased risk for diabetes (prediabetes). Fasting plasma glucose results greater than or equal to 126 mg/dL meet the criteria for diagnosis of diabetes. In the absence of unequivocal hyperglycemia, results should be confirmed by repeat testing. In a patient with classic symptoms of hyperglycemia or hyperglycemic crisis, random plasma glucose results greater than or equal to 200 mg/dL meet the criteria for diagnosis of diabetes. Reference: Standards of Medical Care in Diabetes 2016, [place] [employer] Association. Diabetes Care. 2016.39(Suppl 1). Performed By: #### 1 9123-01, 1987-09, [id number], #### [facility] CLIA [id number] [address] [place] [address] [place] Potassium [Moles/Vol] 3.8 mmol/L Normal 3.7-5.1 [facility] Comment on above: Order Comment: Loni sanchez Type: BLOOD SPECIMEN Ordering Facility: [facility] Address: [address] [place] [address] Performed By: #### 1 9123-01, 1987-09, [id number], #### [facility] CLIA [id number] [address] [place] [address] [place] Protein [Mass/Vol] 6.6 g/dL Normal 6.3-8.0 [facility] Comment on above: Order Comment: Loni sanchez Type: BLOOD SPECIMEN Ordering Facility: [facility] Address: [address] [place], [place] [address] Performed By: #### 1 9123-01, 1987-09, [id number], #### [facility] CLIA [id number] [address] [place] [address] [place] Sodium [Moles/Vol] 139 mmol/L Normal 136-144 [facility] Comment on above: Order Comment: Speci men Type: BLOOD SPECIMEN Ordering Facility: [facility] Address: [address] [place] [place] [id number] Performed By: #### 1 9123-9, 1987-09, [id number], #### [facility] CLIA [id number] [address] Urea nitrogen [Mass/Vol] 6 mg/dL Low 11-20 [facility] Comment on above: Order Comment: Speci men Type: BLOOD SPECIMEN Ordering Facility: [facility] Address: [address] [place], [place] [id number] Performed By: #### 1 91239, 1987-09, [id number], 32821-2 #### [facility] CLIA [id number] [address] ECG COMPLETEon 11-29-2023 ECG COMPLETE Ventricular Rate : 6 4 BPM Atrial Rate : 64 BPM P-R Interval : 164 ms QRS Duration : 80 ms Q-T Interval : 402 ms QTC Calculation(Bazett) : 414 ms Calculated P [place] : 46 degrees Calculated R [place] : 48 degrees Calculated T [place] : 47 degrees NORMAL SINUS RHYTHM NORMAL ECG NO STEMI Confirmed by URI CLARK DO ([id number]), editor & co founder SONALI ACOSTA ([id number]) on 11/30/2023 7:12:19 AM NAME : JOSIE LANDIS PID : [id number] : 1965 Gender : Female Race : ORD : [id number] Procedure Date : Nov 29 2023 14:35:34 Edit Date : Nov 30 2023 07:12:21 Diagnosis: NORMAL SINUS RHYTHM NORMAL ECG NO STEMI Confirmed by URI CLARK DO ([id number]), editor & co founder SONALI ACOSTA ([id number]) on 11/30/2023 7:12:19 AM Test Reason : Chest Pain Location : 1 : ER OR Overread By : URI CLARK DO Edited By : SONALI ACOSTA Referred By : , Acquired by : NO ID, [facility] ED NOTEon 11-29-2023 ED NOTE HNO ID: [id number] Author: PAULA HILL RN Service: Nursing Author Type: Registered Nurse Type: ED Notes Filed: 11/29/2023 16:47 Note Text: Follow up with neuro gait is steady Normal [facility] ED NOTE HNO ID: [id number] Author: PAULA HILL RN Service: Nursing Author Type: Registered Nurse Type: ED Notes Filed: 11/29/2023 16:42 Note Text: PA has been bedside Pt is to follow up with her neurologist [facility] ED NOTE HNO ID: [id number] Author: PAULA HILL RN Service: Nursing Author Type: Registered Nurse Type: ED Notes Filed: 11/29/2023 15:03 Note Text: Pt has returned from radiology per the er cart male is bedside [facility] ED NOTE HNO ID: [id number] Author: PAULA HILL RN Service: Nursing Author Type: Registered Nurse Type: ED Notes Filed: 11/29/2023 14:57 Note Text: Pt to ct scan per the er cart [facility] ED NOTE HNO ID: [id number] Author: PAULA HILL RN Service: Nursing Author Type: Registered Nurse Type: ED Notes Filed: 11/29/2023 14:23 Note Text: Pt has ambulated to the bathroom gait is steady [facility] ED NOTE HNO ID: [id number] Author: PAULA HILL RN Service: Nursing Author Type: Registered Nurse Type: ED Notes Filed: 11/29/2023 14:17 Note Text: Pt is alert and oriented times 3 male is bedside pt denies pain denies headache [facility] ED NOTE HNO ID: [id number] Author: PAULA HILL RN Service: Nursing Author Type: Registered Nurse Type: ED Notes Filed: 11/29/2023 14:08 Note Text: Dr Clark is bedside Pt is talking and male is bedside [facility] ED PROV NOTEon 11-29-2023 ED PROV NOTE HNO ID: [id number] Author: URI CLARK DO Service: Emergency Medicine Author Type: Physician Type: ED Provider Notes Filed: 11/29/2023 22:38 Note Text: ED Provider Note Patient Name: Josie Landis : 1965 SERVICE DATE: 11/29/23 History Patient presents with: Seizures: Sent by neurologist. Hx trauma induced seizures, appears to have had tonic clonic seizure with loss of bladder on Wednesday. Neurologist stated this is not her typical seizure like activity therefore sent to ED for evaluation. States she is followed by neurology for a brain lesion Patient is a 58-year-old female with a past medical history of allergies, bipolar disorder, coronary artery disease with history of 3 stents in May 2022, GERD, hyperlipidemia and hypertension. History of seizures as a child, through adolescence currently not on antiepileptic drugs, history of stroke. Patient presenting to the ED for complaints of seizures. 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 They pulled into order, when she felt off, told her she was likely to have a seizure. She started to stare out, without any response, then had some shaking of the hands. This lasted approximately 30 seconds, then the patient regained consciousness and was hungry. She was nauseous. She did lose her bladder. After this, she took her Zofran, and ate her meal. She states her last seizure was 6 years ago, pulling into the parking lot of her work, with similar presentation. Without loss of bowel or bladder. She states she is never lost her bladder before. She states she had childhood seizures, was followed by neurology was previously on a hand dialectic drug, however in her 30s, was removed due to being told she had trauma induced seizures.Patient tells me in May 2022, she underwent 3 cardiac stents, shortly after that she began to have issues, had a confusional episode 06/08/2022, was admitted and ruled out for stroke. 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 Underwent extensive workup, including a biopsy, showing nondiagnostic in nature. She has had multiple issues over the past year, including dysarthria, dyslexia, headaches, lightheadedness and dizziness, right peripheral decreased vision, cough, secondary to allergies, all which patient states are at baseline today. Patient has no complaints of pain. Patient states she reached out to her neurology team, Wednesday, with the response today, recommending she come into the hospital for evaluation of the tumor as well as potential cardiac nature/CVA nature. History provided by: Patient, medical records and spouse buyer agent used: No PAST MEDICAL HISTORY Diagnosis Date Asthma due to seasonal allergies 11/02/2022 Basal cell carcinoma (BCC) of cheek 2020 left cheek Bipolar affective (HCC) Coronary artery disease Coronary artery disease involving wiyot coronary artery of wiyot heart without angina pectoris 11/02/2022 Gastroesophageal reflux disease without esophagitis 11/02/2022 Hyperlipidemia Primary hypertension 11/02/2022 Seizures (HCC) 11/02/2022 Stroke (HCC) PAST SURGICAL HISTORY Procedure Laterality Date CHOLECYSTECTOMY HX EXCISION AND REPAIR EYELID ONE-FOURTH LID MARGIN Left 2020 removal of BCC from left cheek LIGATE FALLOPIAN TUBE PAST SURGICAL HISTORY OF 05/2022 cardiac stent x 1 PAST SURGICAL HISTORY OF hiatal hernia repair PAST SURGICAL HISTORY OF partial hysterectomy SHOULDER ARTHROSCOPY/SURGERY Right torn rotator cuff TONSILLECTOMY HX UNLISTED CARDIAC SURG PROCEDURE 2018 cardiac stents x 2 FAMILY HISTORY Problem Relation Age of Onset Cataract Mother Heart Mother heart attack, stents Hypertension Mother Cancer Mother basal cell carcinoma of ear Cataract Father Heart Father stroke Hypertension Father Cancer Father Basal cell cancer Cancer Maternal Grandmother METS and unknown primary site Heart Maternal Grandfather of heart exploded Macular Degen Paternal Grandmother Cataract Paternal Grandmother Cancer Maternal Aunt METS and not sure of primary site Schizophrenia Maternal Aunt Cancer Granddaughter neuroblastoma Anesthesia Problems No Family History Diabetes No Family History Social History Tobacco Use Smoking status: Some Days Packs/day: 0.30 Years: 40.00 Additional pack years: 0.00 Total pack years: 12.00 Types: Cigarettes Smokeless tobacco: Never Tobacco comments: Trying to quit currently Used to smoke a pack per day on average Vaping Use Vaping Use: Some days Substances: Flavoring Devices: Disposable Substance and Sexual Activity Alcohol use: Not Currently Drug use: Never Sexual activity: Not on file Comment: not asked AL (more content not included)... [facility] HIGH SENSITIVITY TROPONIN T (INITIAL)on 11-29-2023 Troponin T.cardiac High sensitivity method [Mass/Vol] <6 Normal <12 [facility] Comment on above: Order Comment: Speci men Type: BLOOD SPECIMEN Ordering Facility: [facility] Address: [address] [place] [address] Performed By: #### 1 9123-9, 1987-, [id number], 30370-3 #### [facility] CLIA [id number] [address] [place] [address] [place] HIGH SENSITIVITY TROPONIN T (SECOND)on 11-29-2023 Troponin T.cardiac High sensitivity method [Mass/Vol] <6 Normal <12 [facility] Comment on above: Order Comment: Speci men Type: BLOOD SPECIMEN Ordering Facility: [facility] Address: [address] [place] [address] Performed By: #### L [id number] #### [facility] CLIA [id number] [address] [place] [address] [place] Magnesium SerPl-mCncon 11-28 Magnesium [Mass/Vol] 2.2 mg/dL Normal 1.7-2.3 [facility] Comment on above: Order Comment: Speci men Type: BLOOD SPECIMEN Ordering Facility: [facility] Address: [address] [place] [address] Performed By: #### 1 9123-9, 1987-, [id number], 69139-9 #### [facility] CLIA [id number] [address] [place] [address] [facility] [place] TOXICOLOGY SCREEN, ROUTINE U RINEon 11-29-2023 Amphetamines Confirm (U) [Mass/Vol] Negative Normal Negative [facility] Comment on above: Order Comment: Speci men Type: URINE SPECIMEN Ordering Facility: [facility] Address: [address] [place] [address] Result Comment: Cuto ff threshold at 1000 ng/mL. Performed By: #### U TOX2 #### [facility] CLIA [id number] [address] [place] [address] [place] BARBITURATES, URINE Negative Normal Negative [facility] Comment on above: Order Comment: Speci men Type: URINE SPECIMEN Ordering Facility: [facility] Address: [address] [place] [address] Result Comment: Cuto ff threshold at 200 ng/mL. Performed By: #### U TOX2 #### [facility] CLIA [id number] [address] [place] [address] [place] BENZODIAZEPINES, UR Negative Normal Negative [facility] Comment on above: Order Comment: Speci men Type: URINE SPECIMEN Ordering Facility: [facility] Address: [address] [place] [address] Result Comment: Cuto ff threshold at 200 ng/mL. Performed By: #### U TOX2 #### [facility] CLIA [id number] [address] OF [facility] Cannabinoids Screen Ql (U) Positive Abnormal Negative [facility] Comment on above: Order Comment: Speci men Type: URINE SPECIMEN Ordering Facility: [facility] Address: [address] [place] [address] Result Comment: Cuto ff threshold at 50 ng/mL. Performed By: #### U TOX2 #### [facility] CLIA [id number] [address] [place] Cocaine Ql (U) Negative Normal Negative [facility] Comment on above: Order Comment: Speci men Type: URINE SPECIMEN Ordering Facility: [facility] Address: [address] [place] [address] Result Comment: Cuto ff threshold at 300 ng/mL. Performed By: #### U TOX2 #### [facility] CLIA [id number] [address] [place] [address] [place] Ethanol (U) [Mass/Vol] <11 Normal <11 [facility] Comment on above: Order Comment: Speci men Type: URINE SPECIMEN Ordering Facility: [facility] Address: [address] [place] [address] Performed By: #### U TOX2 #### [facility] CLIA [id number] [address] [place] [address] [place] Opiates Screen Ql (U) Negative Normal Negative [facility] Comment on above: Order Comment: Speci men Type: URINE SPECIMEN Ordering Facility: [facility] Address: [address] [place] [address] Result Comment: Cuto ff threshold at 300 ng/mL. Performed By: #### U TOX2 #### [facility] CLIA [id number] [address] [place] [address] [place] oxyCODONE cutoff Screen (U) [Mass/Vol] Negative Normal Negative [facility] Comment on above: Order Comment: Speci men Type: URINE SPECIMEN Ordering Facility: [facility] Address: [address] [place] [address] Result Comment: Cuto ff threshold at 100 ng/mL. Performed By: #### U TOX2 #### [facility] CLIA [id number] [address] Phencyclidine Ql (U) Negative Normal Negative [facility] Comment on above: Order Comment: Speci men Type: URINE SPECIMEN Ordering Facility: [facility] Address: [address] [place] [address] Result Comment: Cuto ff threshold at 25 ng/mL. Performed By: #### U TOX2 #### [facility] CLIA [id number] [address] Urinalysis complete panel (U )on 11-29-2023 Bacteria LM.HPF (Urine sed) [#/Area] Few Abnormal None Seen [facility] Comment on above: Order Comment: Speci men Type: URINE SPECIMEN Ordering Facility: [facility] Address: [address] [place] [address] Performed By: #### 2 4356-8 #### [facility] CLIA [id number] [address] Bilirubin Ql (U) Negative Normal Negative [facility] Comment on above: Order Comment: Speci men Type: URINE SPECIMEN Ordering Facility: [facility] Address: [address] [place] [address] Performed By: #### 2 4356-8 #### [facility] CLIA [id number] [address] Clarity (Unsp spec) Clear Normal Clear [facility] Comment on above: Order Comment: Speci men Type: URINE SPECIMEN Ordering Facility: [facility] Address: [address] [place] [address] Performed By: #### 2 4356-8 #### [facility] CLIA [id number] [address] Color (U) Yellow Normal Yellow [facility] Comment on above: Order Comment: Speci men Type: URINE SPECIMEN Ordering Facility: [facility] Address: [address] [place] [address] Performed By: #### 2 4356-8 #### [facility] CLIA [id number] [address] Epithelial cells LM.HPF (Urine sed) [#/Area] Few Normal [facility] Comment on above: Order Comment: Speci men Type: URINE SPECIMEN Ordering Facility: [facility] Address: [address] [place] [address] Performed By: #### 2 4356-8 #### [facility] CLIA [id number] [address] [place] Glucose Test strip (U) [Mass/Vol] Negative Normal Negative [facility] Comment on above: Order Comment: Speci men Type: URINE SPECIMEN Ordering Facility: [facility] Address: [address] [place] [address] Performed By: #### 2 4356-8 #### [facility] CLIA [id number] [address] Hemoglobin Ql (U) Negative Normal Negative [facility] Comment on above: Order Comment: Speci men Type: URINE SPECIMEN Ordering Facility: [facility] Address: [address] [place] [address] Performed By: #### 2 4356-8 #### [facility] CLIA [id number] [address] Ketones Ql (U) Negative Normal Negative [facility] Comment on above: Order Comment: Speci men Type: URINE SPECIMEN Ordering Facility: [facility] Address: [address] [place] [address] Performed By: #### 2 4356-8 #### [facility] CLIA [id number] [address] Leukocyte esterase Test strip Ql (U) Trace Abnormal Negative [facility] Comment on above: Order Comment: Speci men Type: URINE SPECIMEN Ordering Facility: [facility] Address: [address] [place] [address] Performed By: #### 2 4356-8 #### [facility] CLIA [id number] [address] [place] [address] [place] Nitrite Ql (U) Negative Normal Negative [facility] Comment on above: Order Comment: Speci men Type: URINE SPECIMEN Ordering Facility: [facility] Address: [address] [place] [address] Performed By: #### 2 4356-8 #### [facility] CLIA [id number] [address] [place] [address] [place] pH (U) 7.5 [pH] Normal 5.0-8.0 [facility] Comment on above: Order Comment: Speci men Type: URINE SPECIMEN Ordering Facility: [facility] Address: [address] [place] [address] Performed By: #### 2 4356-8 #### [facility] CLIA [id number] [address] Protein (U) [Mass/Vol] Negative Normal Negative [facility] Comment on above: Order Comment: Speci men Type: URINE SPECIMEN Ordering Facility: [facility] Address: [address] [place] [address] Performed By: #### 2 4356-8 #### [facility] CLIA [id number] [address] [place] RBC LM.HPF (Urine sed) [#/Area] 0-3 /HPF Normal 0-3 /HPF [facility] Comment on above: Order Comment: Speci men Type: URINE SPECIMEN Ordering Facility: [facility] Address: [address] [place] [address] Performed By: #### 2 4356-8 #### [facility] CLIA [id number] [address] [place] Specific gravity (U) [Rel density] 1.010 Normal 1.005-1.03 0 [facility] Comment on above: Order Comment: Speci men Type: URINE SPECIMEN Ordering Facility: [facility] Address: [address] [place] [address] Performed By: #### 2 4356-8 #### [facility] CLIA [id number] [address] [place] Urobilinogen Ql (U) 0.2 EU/dL Normal 0.2-1.0 EU/dL [facility] Comment on above: Order Comment: Speci men Type: URINE SPECIMEN Ordering Facility: [facility] Address: [address] [place], [place] [id number] Performed By: #### 2 4356-8 #### [facility] CLIA [id number] [address] WBC LM.HPF (Urine sed) [#/Area] 0-5 /HPF Normal 0-5 /HPF [facility] Comment on above: Order Comment: Speci men Type: URINE SPECIMEN Ordering Facility: [facility] Address: [address] [place] [address] Performed By: #### 2 4356-8 #### [facility] CLIA [id number] [address] CNPNon 10-26-2023 CNPN Telephone (NSCAMN) ----- JOSIE LANDIS ([id number]) 1965 F Date Time Provider Department 10/26/23 [facility] your [facility] today, we recorded the following information about you: Tamiko Barcenas RN 10/26/2023 11:03 AM Signed Scheduling Request - Established Patient Time Frame: week of 01/19/24 Orders: MRI brain ok at satellite Provider: Any neuro onc or [facility] - Dr. Bhupendra barrera Visit type: Virtual Visit within 1-2 days of MRI Diagnosis: brain lesion Allergies As of Date: 10/26/2023 Noted Allergy Reaction BUDESONIDE-FORMOTEROL 06/24/2022 14 - Other: See Comments ASPIRIN 10/08/2021 14 - Other: See Comments LATEX 10/08/2021 14 - Other: See Comments PENICILLINS 10/08/2021 14 - Other: See Comments ADHESIVE TAPE-SILICONES 10/08/2021 14 - Other: See Comments BUDESONIDE 10/08/2021 14 - Other: See Comments FORMOTEROL 10/08/2021 14 - Other: See Comments Date Reviewed: 10/19/2023 Reviewed by: David Justice RT(R) - Fully Assessed Reason for Visit: Jose week of 01/18 [Other] Prescriptions as of 10/29/2023 - iv contrast (will be provided with radiology test) MRI Brain Inject, intravenously, once for 1 dose.No IV access, insert saline lock prior to beginning of sedation, infusion, injection of imaging exam.Discontinue saline lock post exam. If Pt. has a central line or IVAD, may access for administration according to line specific nursing protocol.Once exam is complete flush line and de-access according to line specific nursing protocol in the MR contrast administration guidelines link - lactobacillus combination no.4 (PROBIOTIC) 3 billion cell cap - isosorbide mononitrate ER (IMDUR) 30 mg 24 hr tablet Take 1 tablet by mouth every afternoon. - aspirin, enteric coated (ASPIRIN, ENTERIC COATED) 81 mg EC tablet Take 1 tablet by mouth every afternoon. - albuterol HFA (PROVENTIL HFA, VENTOLIN HFA) 90 mcg/actuation inhaler Inhale as instructed. - evolocumab 140 mg/mL subcutaneous pen injector (REPATHA SURECLICK) Inject 140 mg subcutaneously every 2 weeks. - ondansetron (ZOFRAN) 8 mg tablet Take 1 tablet by mouth every 8 hours as needed for nausea/vomiting. - pantoprazole DR (PROTONIX) 40 mg tablet Take 1 tablet by mouth once daily. - acetaminophen (TYLENOL) 325 mg tablet 2 tablets by ORAL/FEEDING TUBE route every 4 hours as needed for pain. - senna-docusate (SENNA-S) 8.6-50 mg per tablet 1 tablet by ORAL/FEEDING TUBE route twice daily. - hydroCHLOROthiazide 12.5 mg tablet Take 12.5 mg by mouth once daily. - buPROPion XL (WELLBUTRIN XL) 300 mg 24 hr tablet Take 300 mg by mouth every morning. - clonazePAM (KLONOPIN) 0.5 mg tablet Take 0.5 mg by mouth twice daily as needed for anxiety. - traZODone (DESYREL) 100 mg tablet Take 300 mg by mouth daily at bedtime. - vilazodone (VIIBRYD) 40 mg tablet Take 40 mg by mouth once daily. - losartan (COZAAR) 25 mg tablet Take 25 mg by mouth once daily. - metoprolol succinate ER (TOPROL XL) 25 mg 24 hr tablet Take 12.5 mg by mouth once daily. - ezetimibe (ZETIA) 10 mg tablet Take 10 mg by mouth once daily. - cariprazine (VRAYLAR) 3 mg capsule Take 3 mg by mouth once daily. 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 MR Brain WO and W contrast I Von 10-19-2023 IMPRESSION: Unchanged appearance of the brain compared to most recent MRI performed 07/19/2023 with no new or enlarging lesions identified. No abnormal enhancement. Primary differential considerations include sequelae of nonspecific inflammatory and 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 process with neoplasm considered less likely. Physical Chemistry Teacher: P[facility] Transcribe Date/Time: Oct 19 2023 10:20A Dictated by : MAKAYLA MARQUEZ MD This examination was interpreted and the report reviewed and electronically signed by: MAKAYLA MARQUEZ MD on Oct 19 2023 10:32AM [facility] DIVISION OF RADIOLOGY * * *Final Report* * * DATE OF EXAM: Oct 19 2023 9:57AM [facility] 0295 - MRI BRAIN WO/W IVCON / PROCEDURE REASON: Brain lesion * * * * Physician Interpretation * * * * EXAMINATION: MRI BRAIN WO/W IVCON CLINICAL HISTORY: Brain lesion TECHNIQUE: Routine brain MRI protocol without and with contrast including diffusion images. MQ: MRBWOW_2 Contrast: 18 mL Dotarem IV COMPARISON: Multiple priors, most recent MRI of the brain 07/19/2023 RESULT: Acute Change: No parenchymal restricted diffusion. No evidence of acute infarct. Hemorrhage: No evidence of new or increasing intraparenchymal hemorrhage. Expected small volume of chronic hemosiderin staining is present along the right parieto-occipital approach biopsy tract. Mass Lesion/ Mass Effect: Unchanged extent of heterogeneous T2 FLAIR hyperintense signal abnormality throughout the splenium of the corpus callosum with postbiopsy changes in the right paramedian splenium. Unchanged additional patchy subcentimeter T2 FLAIR hyperintense lesions within the posterior right frontal and inferior right parietal lobe subcortical white matter as well as the contralateral posterior left frontal lobe subcortical white matter with no new or enlarging lesions identified, compatible sequelae of nonspecific chronic insults. No abnormal postcontrast enhancement is identified. No mass effect or midline shift. No evidence of abnormally elevated relative cerebral blood volume or relative cerebral blood flow on perfusion imaging. Parenchyma: No significant volume loss for age. Ventricles: Normal caliber and morphology. Skull Base: Hypothalamic and pituitary region are grossly normal. Craniocervical junction is normal. No significant marrow replacement process. Vasculature: Major intracranial arteries and dural venous sinuses are patent. Other: The visualized paranasal sinuses and mastoid air cells are clear. The orbits and extracranial soft tissues are unremarkable. DIVISION OF RADIOLOGY Provider, [facility] - 10/19/2023 * * *Final Report* * * DATE OF EXAM: Oct 19 2023 9:57AM [facility] 0295 - MRI BRAIN WO/W IVCON / PROCEDURE REASON: Brain lesion * * * * Physician Interpretation * * * * EXAMINATION: MRI BRAIN WO/W IVCON CLINICAL HISTORY: Brain lesion TECHNIQUE: Routine brain MRI protocol without and with contrast including diffusion images. MQ: MRBWOW_2 Contrast: 18 mL Dotarem IV COMPARISON: Multiple priors, most recent MRI of the brain 07/19/2023 RESULT: Acute Change: No parenchymal restricted diffusion. No evidence of acute infarct. Hemorrhage: No evidence of new or increasing intraparenchymal hemorrhage. Expected small volume of chronic hemosiderin staining is present along the right parieto-occipital approach biopsy tract. Mass Lesion/ Mass Effect: Unchanged extent of heterogeneous T2 FLAIR hyperintense signal abnormality throughout the splenium of the corpus callosum with postbiopsy changes in the right paramedian splenium. Unchanged additional patchy subcentimeter T2 FLAIR hyperintense lesions within the posterior right frontal and inferior right parietal lobe subcortical white matter as well as the contralateral posterior left frontal lobe subcortical white matter with no new or enlarging lesions identified, compatible sequelae of nonspecific chronic insults. No abnormal postcontrast enhancement is identified. No mass effect or midline shift. No evidence of abnormally elevated relative cerebral blood volume or relative cerebral blood flow on perfusion imaging. Parenchyma: No significant volume loss for age. Ventricles: Normal caliber and morphology. Skull Base: Hypothalamic and pituitary region are grossly normal. Craniocervical junction is normal. No significant marrow replacement process. Vasculature: Major intracranial arteries and dural venous sinuses are patent. Other: The visualized paranasal sinuses and mastoid air cells are clear. The orbits and extracranial soft tissues are unremarkable. IMPRESSION IMPRESSION: Unchanged appearance of the brain compared to most recent MRI performed 07/19/2023 with no new or enlarging lesions identified. No abnormal enhancement. Primary differential considerations include sequelae of nonspecific inflammatory and 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 process with neoplasm considered less likely. Physical Chemistry Teacher: [facility] Transcribe Date/Time: Oct 19 2023 10:20A Dictated by : MAKAYLA MARQUEZ MD This examination was interpreted and the report reviewed and electronically signed by: MAKAYLA MARQUEZ MD on Oct 19 2023 10:32AM EST [facility] Radiology Study observation (narrative) [facility] MR Brain WO and W contrast I VOrdered By: Ccf Provider on 10-19-2023 [facility] MRI BRAIN WO/W IVCONon 10-18 MRI BRAIN WO/W IVCON * * *Final Report* * * DATE OF EXAM: Oct 19 2023 9:57AM [facility] 0295 - MRI BRAIN WO/W IVCON / PROCEDURE REASON: Brain lesion * * * * Physician Interpretation * * * * EXAMINATION: MRI BRAIN WO/W IVCON CLINICAL HISTORY: Brain lesion TECHNIQUE: Routine brain MRI protocol without and with contrast including diffusion images. MQ: MRBWOW_2 Contrast: 18 mL Dotarem IV COMPARISON: Multiple priors, most recent MRI of the brain 07/19/2023 RESULT: Acute Change: No parenchymal restricted diffusion. No evidence of acute infarct. Hemorrhage: No evidence of new or increasing intraparenchymal hemorrhage. Expected small volume of chronic hemosiderin staining is present along the right parieto-occipital approach biopsy tract. Mass Lesion/ Mass Effect: Unchanged extent of heterogeneous T2 FLAIR hyperintense signal abnormality throughout the splenium of the corpus callosum with postbiopsy changes in the right paramedian splenium. Unchanged additional patchy subcentimeter T2 FLAIR hyperintense lesions within the posterior right frontal and inferior right parietal lobe subcortical white matter as well as the contralateral posterior left frontal lobe subcortical white matter with no new or enlarging lesions identified, compatible sequelae of nonspecific chronic insults. No abnormal postcontrast enhancement is identified. No mass effect or midline shift. No evidence of abnormally elevated relative cerebral blood volume or relative cerebral blood flow on perfusion imaging. Parenchyma: No significant volume loss for age. Ventricles: Normal caliber and morphology. Skull Base: Hypothalamic and pituitary region are grossly normal. Craniocervical junction is normal. No significant marrow replacement process. Vasculature: Major intracranial arteries and dural venous sinuses are patent. Other: The visualized paranasal sinuses and mastoid air cells are clear. The orbits and extracranial soft tissues are unremarkable. IMPRESSION: Unchanged appearance of the brain compared to most recent MRI performed 07/19/2023 with no new or enlarging lesions identified. No abnormal enhancement. Primary differential considerations include sequelae of nonspecific inflammatory and 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 process with neoplasm considered less likely. Physical Chemistry Teacher: RHIANNON Transcribe Date/Time: Oct 19 2023 10:20A Dictated by : MAKAYLA MARQUEZ MD This examination was interpreted and the report reviewed and electronically signed by: MAKAYLA MARQUEZ MD on Oct 19 2023 10:32AM EST [id number] Normal [facility] No Panel Informationon 07-18 [facility] INTERLEUKIN 2 RECEPTOR, SOLU BLE, SERUMon 06-11-2023 Interleukin-2 Receptor 1187.2 pg/mL High 175.3 - 858.2 pg/mL [facility] STEVAN BY IFA WITH REFLEXon Nuclear Ab Ql (S) Negative Negative [facility] ANTI NEUTRO CYTO ABon 2023 Interpretation (ANCA) Negative for C-ANC A and P-ANCA by indirect immunofluorescence. [facility] Neutrophil cytoplasmic Ab.classic IF Ql (S) Negative Negative [facility] Neutrophil cytoplasmic Ab.perinuclear IF Ql (S) Negative Negative [facility] Staff Review (ANCA) No review performed. [facility] CCP ANTIBODY IGGon Cyclic citrullinated peptide IgG Qn <20 Units [facility] Cyclic citrullinated peptide IgG Qnon 06-10-2023 CCP Antibody IgG Qualitative Negative Negative [facility] 1,25-dihydroxyvitamin D3 [Ma ss/Vol]on 06-09-2023 1,25 Dihydroxy Vitamin Total 61.3 pg/mL 19.9 - 79.3 pg/mL [facility] CATRACHO/ANGIOTENSIN BLDon 2023 Angiotensin converting enzyme [Catalytic activity/Vol] 45 U/L <=52 U/L [facility] C3 COMPLEMENT Don 06-09-19 24 Complement C3 [Mass/Vol] 123 mg/dL 86 - 166 mg/dL [facility] C4 COMPLEMENT Don 06-09-19 24 Complement C4 [Mass/Vol] 18 mg/dL 13 - 46 mg/dL [facility] RHEUMATOID FACTOR BLon 06-09 Rheumatoid factor Qn <16 IU/mL [facility] FLOW CYTOMETRY FOR LEUKEMIA/ LYMPHOMA (FCLL) PERFORMABLEon 03-22-2023 Flow Cytometry Order Status See Results in chart under F case ID [facility] FLOW CYTOMETRY FOR LEUKEMIA/ LYMPHOMA (FCLL) REFLEXon 03-22-2023 Diagnosis Comment This assay is not designed to detect minimal residual disease, plasma cell neoplasms, or myeloid antigen maturational patterns. This test was developed and its performance characteristics determined by [facility]'s [facility] Pathology and Laboratory Medicine [place] ([facility]). It has not been cleared or approved by the FDA. -[facility] is regulated under CLIA as qualified to perform high-complexity testing. This test is used for clinical purposes. It should not be regarded as investigational or for research. [facility] Gross Description A. CEREBROSPINAL FLU ID. Received 5 mL CSF [facility] Interpretation There is no evidence of involvement by a lymphoproliferative disorder or abnormal blast population. Correlation with the clinical findings is suggested. [facility] Performing Lab Diagnostic interpret ation performed at [facility], [address] [place] [address] CLIA# [id number] Dross Skimmer: Jasen Rivera M.D. [facility] Results Specimen type: Cerebrospinal fluid. Total nucleated cell count: 19 /uL Red blood cell count: 11 /uL Differential (CSF): Neutrophil: 0%; Lymphocyte: 95%; Monocyte: 5%; Eosinophil: 0%; Lining cell: 0%; Reactive lymphocyte: 0%; Other: 0% Morphology comments: Predominantly small lymphocytes. See cytology report ([id number]). Viability: 100% Flow Cytometry Body Fluid Immunophenotyping Marker Normal Cell Type Result (Lymphocytes) CD3 T-cells Normal Pattern CD4 T-cell subset Normal Pattern CD5 T-cells Normal Pattern CD7 T/NK-cells Normal Pattern CD8 T-cell subset Normal Pattern CD13 Myeloid Normal Pattern CD16/56 NK cells Normal Pattern CD19 B-cells Normal Pattern CD34 Blasts Normal Pattern CD45 Patel-leukocyte Normal Pattern kappa/lambda B-cells Normal, polytypic Flow cytometric analysis of the fluid reveals that 83% of total events have the CD45 and light scatter properties of lymphocytes. The lymphocytes are composed of T-cells (97%, CD4:CD8 ratio = 2.8), NK cells (2%), and polytypic B-cells (<1%). Granulocytic elements are 1% of events. IF56-joarfaem blasts are not detected. MT/KAB 03/22/2023 [facility] MRI BRAIN WO/W IVCONon 02-18 [facility] MRI LUMBAR SPINE WO/W IVCONo n 02-18-2023 [facility] MRI BRAIN WO/W IVCONon 12-07 [facility] CT ABD/PEL W IVCONon 023 [facility] CT CHEST W IVCONon 3 Radiology Result ACTIONABLE Abnormal [facility] MRI BRAIN LOCALIZATION WO/W IVCONon 11-02-2022 [facility] Basophil percentageOrdered B y: José Luis Stauffer on 10-22-2022 Chloride [Moles/Vol] 101 mmol/L 98-107 [facility] Glucose [Mass/Vol] 102 mg/dL 74-106 [facility] Comment on above: Fasting Glucose resu lt from 100 to 125 mg/dL suggests IMPAIRED HOMEOSTASIS per A.D.A. criteria. Potassium [Moles/Vol] 3.4 mmol/L 3.5-5.1 [facility] Sodium [Moles/Vol] 132 mmol/L 136-145 [facility] Laboratory - Chemistry and C hemistry - challengeOrdered By: José Luis Stauffer on 10-22-2022 CO2 [Moles/Vol] 26.0 mmol/L 21.0-32.0 [facility] Urea nitrogen/Creatinine [Mass ratio] 9.3 mg/mg 10-20 [facility] No Panel InformationOrdered By: José Luis Stauffer on 10-22-2022 Estimated GFR (MDRD) Amer 88 mL/min >60 [facility] Comment on above: GFR Calc Estimated GFR (MDRD) Non-Af Amer 73 mL/min >60 [facility] Comment on above: Non- GFR Calc Serum or plasma calcium leonel urement (mass/volume)Ordered By: José Luis Stauffer on 10-22-2022 Calcium [Mass/Vol] 8.6 mg/dL 8.5-10.1 [facility] Serum or plasma creatinine m easurement (mass/volume)Ordered By: José Luis Stauffer on 10-22-2022 Creatinine [Mass/Vol] 0.86 mg/dL 0.55-1.02 [facility] Comment on above: The validity of the calculated GFR & GFRAA in patients over 70 years has not been determined. Clinical correlation is essential. Serum or plasma urea nitroge n measurement (mass/volume)Ordered By: José Luis Stauffer on 10-22-2022 Urea nitrogen [Mass/Vol] 8 mg/dL 7-18 [facility] Thin prep Papanicolaou smear with manual screeningOrdered By: José Luis Stauffer on 10-22-2022 Thin prep Papanicolaou smear with manual screening 5 5-15 [facility] MRI BRAIN WO/W IVCONon 09-25 [facility] CBC W/AUTO DIFF WBC ([id number])O rdered By: Food And Beverage Assistant on 09-23-2022 Basophils (Bld) [#/Vol] 0.0 10*3/uL Normal 0.0-0.2 [facility]; [facility] Work Phone: Comment on above: PATIENT WAS FASTINGP ERFORMED BY: [facility]coG[facility] Psychiatric [id number] [facility] [id number] Basophils/100 WBC (Bld) 1 % Normal [facility]; [facility] Work Phone: Comment on above: PATIENT WAS FASTINGP ERFORMED BY: CB [facility] Ywcyia2279 [address]Dublin [place] [id number] Eosinophils (Bld) [#/Vol] 0.1 10*3/uL Normal 0.0-0.4 [facility]; [facility] Work Phone: Comment on above: PATIENT WAS FASTINGP ERFORMED BY: [facility] [id number] [address]Dublin [place] [id number] Eosinophils/100 WBC (Bld) 2 % Normal [facility]; [facility] Work Phone: Comment on above: PATIENT WAS FASTINGP ERFORMED BY: [facility] Hsozol7358 [address]blin [place] [id number] Erythrocyte distribution width (RBC) [Ratio] 13.0 % Normal 11.7-15.4 [facility]; [facility] Work Phone: Comment on above: PATIENT WAS FASTINGP ERFORMED BY: [facility] [id number] [address]o RoadWatauga Medical Centerin [place] [id number] Hematocrit (Bld) [Volume fraction] 41.8 % Normal 34.0-46.6 [facility]; [facility] Work Phone: Comment on above: PATIENT WAS FASTINGP ERFORMED BY: [facility] [id number] [address]Dublin [place] [id number] Hemoglobin (Bld) [Mass/Vol] 14.5 g/dL Normal 11.1-15.9 [facility]; [facility] Work Phone: Comment on above: PATIENT WAS FASTINGP ERFORMED BY: [facility] Qgxpac0596 [address]Dublin [place] [id number] Immature granulocytes (Bld) [#/Vol] 0.0 10*3/uL Normal 0.0-0.1 [facility]; [facility] Work Phone: Comment on above: PATIENT WAS FASTINGP ERFORMED BY: CB [facility] [id number] [address]Dublin [place] [id number] Immature granulocytes/100 WBC (Bld) 0 % Normal [facility]; [facility] Work Phone: Comment on above: PATIENT WAS FASTINGP ERFORMED BY: [facility] Euytwj3864 [address]Dublin [place] [id number] Lymphocytes (Bld) [#/Vol] 1.5 10*3/uL Normal 0.7-3.1 [facility]; [facility] Work Phone: Comment on above: PATIENT WAS FASTINGP ERFORMED BY: CB [facility] [id number] [address]Dublin [place] [id number] Lymphocytes/100 WBC (Bld) 32 % Normal [facility]; [facility] Work Phone: Comment on above: PATIENT WAS FASTINGP ERFORMED BY: [facility] Dgemcu4432 [address]Dublin [place] [id number] MCH (RBC) [Entitic mass] 30.7 pg Normal 26.6-33.0 [facility]; [facility] Work Phone: Comment on above: PATIENT WAS FASTINGP ERFORMED BY: [facility] Hvisvr1771 [address]bl[address] [place] [id number] MCHC (RBC) [Mass/Vol] 34.7 g/dL Normal 31.5-35.7 [facility]; [facility] Work Phone: Comment on above: PATIENT WAS FASTINGP ERFORMED BY: [facility] [id number]Dublin [place] [id number] MCV (RBC) [Entitic vol] 89 fL Normal 79-97 [facility]; [facility] Work Phone: Comment on above: PATIENT WAS FASTINGP ERFORMED BY: CB [facility] Dybfpw2281 [address]Dublin [place] [id number] Monocytes (Bld) [#/Vol] 0.4 10*3/uL Normal 0.1-0.9 [facility]; [facility] Work Phone: Comment on above: PATIENT WAS FASTINGP ERFORMED BY: CB [facility] Eaftej5557 [address]Dublin [place] [id number] Monocytes/100 WBC (Bld) 9 % Normal [facility]; [facility] Work Phone: Comment on above: PATIENT WAS FASTINGP ERFORMED BY: DEACON Labcobonnie HuertaQirfkf8464 [address]Dublin [place] [id number] Neutrophils (Bld) [#/Vol] 2.6 10*3/uL Normal 1.4-7.0 [facility]; [facility] Work Phone: Comment on above: PATIENT WAS FASTINGP ERFORMED BY: DEACON [facility] Sxwwwe7331 [address]Dublin [place] [id number] Neutrophils/100 WBC (Bld) 56 % Normal [facility]; [facility] Work Phone: Comment on above: PATIENT WAS FASTINGP ERFORMED BY: DEACON Labalbert WongDudfxg4986 [address]Dublin [place] [id number] Platelets (Bld) [#/Vol] 169 10*3/uL Normal 150-450 [facility]; [facility] Work Phone: Comment on above: PATIENT WAS FASTINGP ERFORMED BY: DEACON Labcobonnie WongOtplko4938 [address]Dublin [place] [id number] RBC (Bld) [#/Vol] 4.72 10*6/uL Normal 3.77-5.28 Compr [facility]; [facility] Work Phone: Comment on above: PATIENT WAS FASTINGP ERFORMED BY: DEACON Labcobonnie WongBahapb2302 [address]Dublin [place] [id number] WBC (Bld) [#/Vol] 4.6 10*3/uL Normal 3.4-10.8 Compre [facility] Internal Medicine; [facility] Work Phone: Comment on above: PATIENT WAS FASTINGP ERFORMED BY: DEACON [facility] Rogttx4594 [address]Dublin [place] [id number] LIPID PANEL ([id number])Ordered B y: Food And Beverage Assistant on 09-23-2022 Cholesterol [Mass/Vol] 199 mg/dL Normal 100-199 [facility]; [facility] Work Phone: Comment on above: PATIENT WAS FASTINGP ERFORMED BY: DEACON [facility] Vbrafa1661 [address]Dublin [place] [id number] Cholesterol in HDL [Mass/Vol] 68 mg/dL Normal [facility]; [facility] Work Phone: Comment on above: PATIENT WAS FASTINGP ERFORMED BY: DEACON Labcobonnie Guonso1514 [address]Dublin [place] [id number] Triglyceride [Mass/Vol] 103 mg/dL Normal 0-149 [facility]; [facility] Work Phone: Comment on above: PATIENT WAS FASTINGP ERFORMED BY: DEACON [facility] Xfeevu0887 [address]Dublin [place] [id number] LIPID PANEL ([id number]) 18 mg/dL Normal 5-40 [facility]; [facility] Work Phone: Comment on above: PATIENT WAS FASTINGP ERFORMED BY: DEACON [facility] [id number] [address]Dublin [place] [id number] LIPID PANEL ([id number]) 113 mg/dL Abnormal 0-99 [facility]; [facility] Work Phone: Comment on above: PATIENT WAS FASTINGP ERFORMED BY: DEACON [facility] Faxwye5886 [address]Dublin [place] [id number] LIPID PANEL ([id number]) 1.7 {ratio} Normal 0.0-3.2 [facility]; [facility] Work Phone: Comment on above: LDL/HDL Ratio Men Wo men 1/2 Avg.Risk 1.0 1.5 Avg.Risk 3.6 3.2 2X Avg.Risk 6.2 5.0 3X Avg.Risk 8.0 6.1 PATIENT WAS FASTINGP ERFORMED BY: CB [facility] Lkjaki2362 [address]Dublin [place] [id number] METABOLIC PANEL, COMPREHENSI VE ([id number])Ordered By: Food And Beverage Assistant on 09-23-2022 Albumin [Mass/Vol] 4.3 g/dL Normal 3.8-4.9 [facility]; [facility] Work Phone: Comment on above: PATIENT WAS FASTINGP ERFORMED BY: DEACON [facility] Mdkfeb7435 [address]Dublin [place] [id number] Albumin/Globulin [Mass ratio] 2.4 {ratio} Abnormal 1.2-2.2 [facility]; [facility] Work Phone: Comment on above: PATIENT WAS FASTINGP ERFORMED BY: [facility] Cbxmwq1849 [address] RoadDublin [place] [id number] ALP [Catalytic activity/Vol] 91 U/L Normal 44-121 [facility]; [facility] Work Phone: Comment on above: PATIENT WAS FASTINGP ERFORMED BY: [facility] Xbdljk0443 [address]Dublin [place] [id number] ALT [Catalytic activity/Vol] 25 U/L Normal 0-32 [facility]; [facility] Work Phone: Comment on above: PATIENT WAS FASTINGP ERFORMED BY: [facility] Nmieyj0069 [address]Dublin [place] [id number] AST [Catalytic activity/Vol] 21 U/L Normal 0-40 [facility]; [facility] Work Phone: Comment on above: PATIENT WAS FASTINGP ERFORMED BY: [facility] Yagwla4682 [address]Dublin [place] [id number] Bilirubin [Mass/Vol] 0.3 mg/dL Normal 0.0-1.2 [facility] rehensive Internal Medicine; [facility] Work Phone: Comment on above: PATIENT WAS FASTINGP ERFORMED BY: [facility] Gbvafy7021 [address]Dublin [place] [id number] Calcium [Mass/Vol] 9.2 mg/dL Normal 8.7-10.2 [facility]; [facility] Work Phone: Comment on above: PATIENT WAS FASTINGP ERFORMED BY: [facility] Oojbrq7351 [address] RoadDublin [place] [id number] Chloride [Moles/Vol] 100 mmol/L Normal 96-106 [facility] rehensive Internal Medicine; [facility] Work Phone: Comment on above: PATIENT WAS FASTINGP ERFORMED BY: [facility] Xtotcb2624 [address]Dublin [place] [id number] CO2 [Moles/Vol] 23 mmol/L Normal 20-29 [facility]; [facility] Work Phone: Comment on above: PATIENT WAS FASTINGP ERFORMED BY: [facility] [facility] [place] [id number] Creatinine [Mass/Vol] 0.95 mg/dL Normal 0.57-1.00 [facility] prehensive Internal Medicine; [facility] Work Phone: Comment on above: PATIENT WAS FASTINGP ERFORMED BY: [facility]6[address] [facility] [id number] GFR/1.73 sq M.predicted among non-blacks MDRD (S/P/Bld) [Vol rate/Area] 71 mL/min/{1.73_m2} Normal Comprehensiv e Internal Medicine; [facility] Work Phone: Comment on above: PATIENT WAS FASTINGP ERFORMED BY: [facility]6[address] [facility] [id number] Globulin (S) [Mass/Vol] 1.8 g/dL Normal 1.5-4.5 [facility] Internal Medicine; [facility] Work Phone: Comment on above: PATIENT WAS FASTINGP ERFORMED BY: [facility] [facility] [place] [id number] Glucose [Mass/Vol] 89 mg/dL Normal 70-99 [facility]; [facility] Work Phone: Comment on above: PATIENT WAS FASTINGP ERFORMED BY: [facility] Qrpsiy[address] [facility] [place] [id number] Potassium [Moles/Vol] 4.2 mmol/L Normal 3.5-5.2 [facility] prehensive Internal Medicine; [facility] Work Phone: Comment on above: PATIENT WAS FASTINGP ERFORMED BY: [facility] Jvumyk[address] [facility] [place] [id number] Protein [Mass/Vol] 6.1 g/dL Normal 6.0-8.5 [facility] Internal Medicine; [facility] Work Phone: Comment on above: PATIENT WAS FASTINGP ERFORMED BY: DEACON Labalbert WongGzuqlr2459 [address]Dublin [place] [id number] Sodium [Moles/Vol] 136 mmol/L Normal 134-144 [facility] Internal Medicine; [facility] Work Phone: Comment on above: PATIENT WAS FASTINGP ERFORMED BY: DEACON Labalbert WongHnxwuh6305 [address]Dublin [place] [id number] Urea nitrogen [Mass/Vol] 10 mg/dL Normal 6-24 [facility]; [facility] Work Phone: Comment on above: PATIENT WAS FASTINGP ERFORMED BY: DEACON Wonglin6[address]Dublin [place] [id number] Urea nitrogen/Creatinine [Mass ratio] 11 mg/mg Normal 9-23 [facility]; [facility] Work Phone: Comment on above: PATIENT WAS FASTINGP ERFORMED BY: DEACON Wonglin[address] [facility]in [place] [id number] MICROALBUMINOrdered By: [employer] Sales Engineer on 09-23-2022 Albumin DL <= 20 mg/L (U) [Mass/Vol] 5.5 ug/mL Normal [facility]; [facility] Work Phone: Comment on above: PATIENT WAS FASTINGP ERFORMED BY: DEACON Wonglin[address] [facility] [place] [id number] Albumin/Creatinine (U) [Mass ratio] 7 {mg/g_creat} Normal 0-29 [facility]; [facility] Work Phone: Comment on above: Normal: 0 - 29 Moder ately increased: 30 - 300 Severely increased: >300 PATIENT WAS FASTINGP ERFORMED BY: DEACON Labalbert Pnuklp8778 [address]Dublin [place] [id number] Creatinine (U) [Mass/Vol] 78.1 mg/dL Normal [facility]; [facility] Work Phone: Comment on above: PATIENT WAS FASTINGP ERFORMED BY: DEACON Madrigal Ksnphi[address] [facility] [place] [id number] TSH ([id number])Ordered By: HAM-ITe m [employer] Sales Engineer on 09-23-2022 TSH Qn 2.160 {uIU/mL} Normal 0.450-4.50 0 [facility]; [facility] Work Phone: Comment on above: PATIENT WAS FASTINGP ERFORMED BY: DEACON Wonglin[address] [facility] [id number] URINALYSIS, W/ MICRO ([id number]) Ordered By: Food And Beverage Assistant on 09-23-2022 Appearance (U) Clear Normal Comprehens [place] Internal Medicine; [facility] Work Phone: Comment on above: PATIENT WAS FASTINGP ERFORMED BY: DEACON Stephaniealbert WongEbnnzl[address] [facility] [id number] Bilirubin Ql (U) Negative Normal Comprehe nsive Internal Medicine; [facility] Work Phone: Comment on above: PATIENT WAS FASTINGP ERFORMED BY: DEACON Wonglin[address] [facility] [id number] Color (U) Yellow Normal [facility]; [facility] Work Phone: Comment on above: PATIENT WAS FASTINGP ERFORMED BY: DEACON Wonglin[address] [facility] [id number] Glucose Ql (U) Negative Normal Comprehens [place] [facility]; [facility] Work Phone: Comment on above: PATIENT WAS FASTINGP ERFORMED BY: DEACON Wonglin[address] [facility] [id number] Hemoglobin Ql (U) Negative Normal Compreh ensive Internal Medicine; [facility] Work Phone: Comment on above: PATIENT WAS FASTINGP ERFORMED BY: DEACON Stephaniealbert WongEqwonu[address] [facility]in [place] [id number] Ketones Ql (U) Negative Normal Comprehens [place] [facility]; [facility] Work Phone: Comment on above: PATIENT WAS FASTINGP ERFORMED BY: DECAON Wonglin[address] [facility] [id number] Leukocyte esterase Test strip Ql (U) Trace Abnormal [facility]; [facility] Work Phone: Comment on above: PATIENT WAS FASTINGP ERFORMED BY: DEACON Ledybonnie Qonoir20[address]bl[address] [place] [id number] Microscopic observation LM Nom (Urine sed) See below: Normal [facility]; [facility] Work Phone: Comment on above: Microscopic was deshaun cated and was performed. PATIENT WAS FASTINGP ERFORMED BY: DEACON [facility] [facility]in [place] [id number] Nitrite Ql (U) Negative Normal Comprehens [place] [facility]; [facility] Work Phone: Comment on above: PATIENT WAS FASTINGP ERFORMED BY: DEAOCN Wonglin[address] [facility] [id number] pH (U) 7.5 [pH] Normal 5.0-7.5 [facility]; [facility] Work Phone: Comment on above: PATIENT WAS FASTINGP ERFORMED BY: DEACON Brownidbonnie WongCzdixq[address] [facility] [id number] Protein Ql (U) Negative Normal Comprehens [place] [facility]; [facility] Work Phone: Comment on above: PATIENT WAS FASTINGP ERFORMED BY: DEACON Wonglin6370 [facility] [id number] Specific gravity (U) [Rel density] 1.012 1 Normal 1.005-1.03 0 [facility]; [facility] Work Phone: Comment on above: PATIENT WAS FASTINGP ERFORMED BY: [facility] Pmnrzq[address] [facility] [id number] Urobilinogen (U) [Mass/Vol] 0.2 mg/dL Normal 0.2-1.0 [facility]; [facility] Work Phone: Comment on above: PATIENT WAS FASTINGP ERFORMED BY: DEACON [facility] Tvzoxm[address] [facility] [id number] MRI BRAIN WO/W IVCONon 07-03 [facility] Absolute lymphocyte countOrd ered By: Dr. Frias on 06-09-2022 Lymphocytes Auto (Unsp spec) [#/Vol] 1.15 10*3/uL 0.83-4.51 [facility] Basophil percentageOrdered B y: Dr. Frias on 06-09-2022 Basophils/100 WBC (Bld) 0.3 % 0-1 [facility] Bilirubin [Mass/Vol] 0.30 mg/dL 0.20-1.00 [facility] Comment on above: For patients on eltr ombopag therapy, use of Dimension [place] TBIL is not recommended. Chloride [Moles/Vol] 114 mmol/L 98-107 [facility] Cholesterol [Mass/Vol] 95 mg/dL <200 [facility] Comment on above: <200 mg/dL Desirable 200-240 mg/dL Borderline >240 mg/dL High Risk Eosinophils/100 WBC (Bld) 1.7 % 0-5 [facility] Glucose [Mass/Vol] 115 mg/dL 74-106 [facility] Comment on above: Fasting Glucose resu lt from 100 to 125 mg/dL suggests IMPAIRED HOMEOSTASIS per A.D.A. criteria. Neutrophils (Bld) [#/Vol] 4.1 10*3/uL 2.0-7.7 [facility] Neutrophils/100 WBC (Bld) 71.0 % 47-70 [facility] Potassium [Moles/Vol] 3.9 mmol/L 3.5-5.1 [facility] Protein [Mass/Vol] 5.8 g/dL 6.4-8.2 [facility] Sodium [Moles/Vol] 143 mmol/L 136-145 [facility] Triglyceride [Mass/Vol] 111 mg/dL <199 [facility] Comment on above: The drugs N-Acetylcy steine and Metamizole may falsely depress this assay.Serum Triglycerides Reference Interval Normal <150 mg/dL Borderline high 150 - 199 mg/dL High 200 - 499 mg/dL Very High > or = 500 mg/dL WBC (Bld) [#/Vol] 5.7 10*3/uL 4.4-11.0 [facility] Blood erythrocytes count (nu mber/volume)Ordered By: Dr. Frias on 06-09-2022 RBC (Bld) [#/Vol] 4.26 10*6/uL 4.2-5.4 [facility] Blood hemoglobin measurement (mass/volume)Ordered By: Dr. Frias on 06-09-2022 Hemoglobin (Bld) [Mass/Vol] 12.7 g/dL 12.0-15.0 [facility] Blood lymphocytes/100 leukoc ytesOrdered By: Dr. Frias on 06-09-2022 Lymphocytes/100 WBC (Bld) 20.1 % 19-41 [facility] Blood monocytes/100 leukocyt esOrdered By: Dr. Frias on 06-09-2022 Monocytes/100 WBC (Bld) 6.6 % 0-10 [facility] Blood platelet mean volumeOr dered By: Dr. Frias on 06-09-2022 Platelet mean volume (Bld) [Entitic vol] 9.5 fL 6.2-12.0 [facility] Determination of erythrocyte mean corpuscular volume (MCV)Ordered By: Dr. Frias on 06-09-2022 MCV (RBC) [Entitic vol] 92.5 fL 81-99 [facility] Hematocrit Auto (Bld) [Volum e fraction]Ordered By: Dr. Frias on 06-09-2022 Hematocrit (Bld) [Volume fraction] 39.4 % 37-47 [facility] Laboratory - Chemistry and C hemistry - challengeOrdered By: Dr. Frias on 06-09-2022 ALP [Catalytic activity/Vol] 86 U/L 45-117 [facility] ALT [Catalytic activity/Vol] 25 U/L 13-56 [facility] CO2 [Moles/Vol] 21.0 mmol/L 21.0-32.0 [facility] Globulin (S) [Mass/Vol] 2.8 g/dL 2.2-4.2 [facility] Urea nitrogen/Creatinine [Mass ratio] 9.8 mg/mg 10-20 [facility] Laboratory - Hematology and Cell countsOrdered By: Dr. Frias on 06-09-2022 Erythrocyte distribution width (RBC) [Entitic vol] 44.9 fL 35.1-43.9 [facility] Erythrocyte distribution width (RBC) [Ratio] 13.5 % 11.6-14.6 [facility] Immature granulocytes/100 WBC (Bld) 0.300 % 0.0-0.9 [facility] Comment on above: IG% - Immature Granu locytes (promyelocytes, myelocytes and metamyelocytes) > 1% indicates that a LEFT SHIFT is Present. MCH (RBC) [Entitic mass] 29.8 pg 27.0-32.0 [facility] Nucleated RBC/100 WBC (Bld) [Ratio] 0 % 0-5 [facility] MCHC Auto (RBC) [Mass/Vol]Or dered By: Dr. Frias on 06-09-2022 MCHC (RBC) [Mass/Vol] 32.2 g/dL 32-36 [facility] No Panel InformationOrdered By: Dr. Frias on 06-09-2022 Estimated Creatinine Clearance Calc 76.27 ml/min [facility] Estimated GFR (MDRD) Amer 94 mL/min >60 [facility] Comment on above: GFR Calc Estimated GFR (MDRD) Non-Af Amer 78 mL/min >60 [facility] Comment on above: Non- GFR Calc Thyroid Stimulating Hormone (TSH) 3.39 uIU/mL 0.358-3.74 [facility] Platelets bldOrdered By: Dr. Frias on 06-09-2022 Platelets (Bld) [#/Vol] 163 10*3/uL 150-450 [facility] Serum or plasma albumin leonel urement (mass/volume)Ordered By: Dr. Frias on 06-09-2022 Albumin [Mass/Vol] 3.0 g/dL 3.2-5.0 [facility] Serum or plasma albumin/glob ulin mass ratioOrdered By: Dr. Frias on 06-09-2022 Albumin/Globulin [Mass ratio] 1.1 {ratio} 0.9-2.4 [facility] Serum or plasma calcium leonel urement (mass/volume)Ordered By: Dr. Frias on 06-09-2022 Calcium [Mass/Vol] 8.3 mg/dL 8.5-10.1 [facility] Serum or plasma cholesterol in HDL measurement (mass/volume)Ordered By: Dr. Frias on 06-09-2022 Cholesterol in HDL [Mass/Vol] 53 mg/dL >40 [facility] Comment on above: The drugs N-Acetylcy steine and Metamizole may falsely depress this assay. Reference Range HDL <40 mg/dL Low HDL Cholesterol HDL >or= 60 mg/dL High HDL Cholesterol Serum or plasma cholesterol in VLDL measurement (mass/volume)Ordered By: Dr. Frias on 06-09-2022 Cholesterol in VLDL [Mass/Vol] 22 mg/dL 5-40 [facility] Serum or plasma creatinine m easurement (mass/volume)Ordered By: Dr. Frias on 06-09-2022 Creatinine [Mass/Vol] 0.82 mg/dL 0.55-1.02 [facility] Comment on above: The validity of the calculated GFR & GFRAA in patients over 70 years has not been determined. Clinical correlation is essential. Serum or plasma low density lipoprotein (LDL) cholesterol measurement (mass/volume)Ordered By: Dr. Frias on 06-09-2022 Cholesterol in LDL [Mass/Vol] 20 mg/dL 0-130 [facility] Serum or plasma urea nitroge n measurement (mass/volume)Ordered By: Dr. Frias on 06-09-2022 Urea nitrogen [Mass/Vol] 8 mg/dL 7-18 [facility] Thin prep Papanicolaou smear with manual screeningOrdered By: Dr. Frias on 06-09-2022 Thin prep Papanicolaou smear with manual screening 12 U/L 15-37 [facility] Thin prep Papanicolaou smear with manual screening 8 5-15 [facility] Whole blood hemoglobin A1c/t otal hemoglobin ratio (mass fraction)Ordered By: Dr. Frias on 06-09-2022 HbA1c (Bld) [Mass fraction] 5.2 % 3.8-5.6 [facility] Comment on above: Normal < 5.7 % Predi abetic 5.7 - 6.4 % Diabetic >or= 6.5 % Please note range changes. Absolute lymphocyte countOrd ered By: Dr. River on 06-08-2022 Lymphocytes Auto (Unsp spec) [#/Vol] 1.23 10*3/uL 0.83-4.51 [facility] Basophil percentageOrdered B y: Dr. River on 06-08-2022 Basophils/100 WBC (Bld) 0.4 % 0-1 [facility] Chloride [Moles/Vol] 109 mmol/L 98-107 [facility] Eosinophils/100 WBC (Bld) 2.1 % 0-5 [facility] Glucose [Mass/Vol] 88 mg/dL 74-106 [facility] Neutrophils (Bld) [#/Vol] 3.5 10*3/uL 2.0-7.7 [facility] Neutrophils/100 WBC (Bld) 67.1 % 47-70 [facility] Potassium [Moles/Vol] 3.2 mmol/L 3.5-5.1 [facility] Sodium [Moles/Vol] 140 mmol/L 136-145 [facility] WBC (Bld) [#/Vol] 5.2 10*3/uL 4.4-11.0 [facility] Basophil percentage 0 SEEN /hpf 0-5 [facility] Bilirubin Test strip Ql (U)O rdered By: Dr. River on 06-08-2022 Bilirubin Ql (U) Negative Negative [facility] Blood erythrocytes count (nu mber/volume)Ordered By: Dr. River on 06-08-2022 RBC (Bld) [#/Vol] 4.50 10*6/uL 4.2-5.4 [facility] Blood hemoglobin measurement (mass/volume)Ordered By: Dr. River on 06-08-2022 Hemoglobin (Bld) [Mass/Vol] 13.5 g/dL 12.0-15.0 [facility] Blood lymphocytes/100 leukoc ytesOrdered By: Dr. River on 06-08-2022 Lymphocytes/100 WBC (Bld) 23.5 % 19-41 [facility] Blood monocytes/100 leukocyt esOrdered By: Dr. River on 06-08-2022 Monocytes/100 WBC (Bld) 6.7 % 0-10 [facility] Blood platelet mean volumeOr dered By: Dr. River on 06-08-2022 Platelet mean volume (Bld) [Entitic vol] 9.0 fL 6.2-12.0 [facility] Determination of erythrocyte mean corpuscular volume (MCV)Ordered By: Dr. River on 06-08-2022 MCV (RBC) [Entitic vol] 89.8 fL 81-99 [facility] Glucose Glucometer (BldC) [M ass/Vol]Ordered By: Dr. River on 06-08-2022 Glucose [Mass/Vol] 100 mg/dL 74-106 [facility] Comment on above: MANAGEMENT OF PATIEN T CARE PER NURSING PROTOCOL Hematocrit Auto (Bld) [Volum e fraction]Ordered By: Dr. River on 06-08-2022 Hematocrit (Bld) [Volume fraction] 40.4 % 37-47 [facility] INR in Blood by Coagulation assayOrdered By: Dr. River on 06-08-2022 INR Coag (Bld) [Relative time] 1.1 {INR} [facility] Ketones Test strip Ql (U)Ord ered By: Dr. River on 06-08-2022 Ketones Ql (U) Negative Negative [facility] Laboratory - Chemistry and C hemistry - challengeOrdered By: Dr. River on 06-08-2022 CO2 [Moles/Vol] 24.0 mmol/L 21.0-32.0 [facility] Urea nitrogen/Creatinine [Mass ratio] 8.3 mg/mg 10-20 [facility] Laboratory - Chemistry and C hemistry - challengeOrdered By: Dr. Frias on 06-08-2022 Magnesium [Mass/Vol] 2.0 mg/dL 1.6-2.6 [facility] Laboratory - CoagulationOrde red By: Dr. River on 06-08-2022 aPTT Coag (Bld) [Time] 27.6 s 24.1-36.2 [facility] PT Coag (PPP) [Time] 13.5 s 11.7-14.9 [facility] Laboratory - Hematology and Cell countsOrdered By: Dr. River on 06-08-2022 Erythrocyte distribution width (RBC) [Entitic vol] 43.7 fL 35.1-43.9 [facility] Erythrocyte distribution width (RBC) [Ratio] 13.4 % 11.6-14.6 [facility] Immature granulocytes/100 WBC (Bld) 0.200 % 0.0-0.9 [facility] Comment on above: IG% - Immature Granu locytes (promyelocytes, myelocytes and metamyelocytes) > 1% indicates that a LEFT SHIFT is Present. MCH (RBC) [Entitic mass] 30.0 pg 27.0-32.0 [facility] Nucleated RBC/100 WBC (Bld) [Ratio] 0 % 0-5 [facility] [Mass/Vol]Or dered By: Dr. River on 06-08-2022 MCHC (RBC) [Mass/Vol] 33.4 g/dL 32-36 [facility] Mucus LM Ql (Urine sed)Order ed By: Dr. River on 06-08-2022 Mucus Ql (Urine sed) 0 SEEN /hpf [facility] Nitrite Test strip Ql (U)Ord ered By: Dr. River on 06-08-2022 Nitrite Ql (U) Negative Negative [facility] No Panel InformationOrdered By: Dr. River on 06-08-2022 Estimated Creatinine Clearance Calc 65.15 ml/min [facility] Estimated GFR (MDRD) Amer 78 mL/min >60 [facility] Comment on above: GFR Calc Estimated GFR (MDRD) Non-Af Amer 64 mL/min >60 [facility] Comment on above: Non- GFR Calc Troponin I High Sensitivity 6 pg/mL 3.0-54.0 [facility] Comment on above: Please Note: New Kaitlyn t Units and Gender Specific Reference Ranges. For more information see Policy Stat Procedure [place] High Sensitivity Troponin (TNIH) and attachments. Platelets bldOrdered By: Dr. River on 06-08-2022 Platelets (Bld) [#/Vol] 172 10*3/uL 150-450 [facility] Protein Test strip Ql (U)Ord ered By: Dr. River on 06-08-2022 Protein Ql (U) Negative Negative [facility] Serum or plasma calcium leonel urement (mass/volume)Ordered By: Dr. River on 06-08-2022 Calcium [Mass/Vol] 8.8 mg/dL 8.5-10.1 [facility] Serum or plasma creatinine m easurement (mass/volume)Ordered By: Dr. River on 06-08-2022 Creatinine [Mass/Vol] 0.96 mg/dL 0.55-1.02 [facility] Comment on above: The validity of the calculated GFR & GFRAA in patients over 70 years has not been determined. Clinical correlation is essential. Serum or plasma urea nitroge n measurement (mass/volume)Ordered By: Dr. River on 06-08-2022 Urea nitrogen [Mass/Vol] 8 mg/dL 7-18 [facility] Squamous epithelial cells de tection in urine sediment by light microscopyOrdered By: Dr. River on 06-08-2022 Epithelial cells.squamous LM Ql (Urine sed) 0 SEEN /hpf 5-10 [facility] Thin prep Papanicolaou smear with manual screeningOrdered By: Dr. River on 06-08-2022 Thin prep Papanicolaou smear with manual screening 7 5-15 [facility] Urine blood detectionOrdered By: Dr. River on 06-08-2022 RBC Ql (U) 10 /ul Negative [facility] RBC Ql (U) 0-5 SEEN /hpf 0-5 [facility] Urine clarityOrdered By: Dr. River on 06-08-2022 Clarity (U) Sl. Cloudy Clear [facility] Urine color determinationOrd ered By: Dr. River on 06-08-2022 Color (U) Yellow Yellow [facility] Urine glucose detectionOrder ed By: Dr. River on 06-08-2022 Glucose Ql (U) Normal mg/dl Normal [facility] Urine leukocyte esterase det ection by dipstickOrdered By: Dr. River on 06-08-2022 Leukocyte esterase Test strip Ql (U) Negative Negative [facility] Urine pHOrdered By: Dr. River o n 06-08-2022 pH (U) 7.0 [pH] 5.0 - 8.0 [facility] Urine sediment bacteria coun t by microscopy (number/high power field)Ordered By: Dr. River on 06-08-2022 Bacteria LM.HPF (Urine sed) [#/Area] 0 /[HPF] None Seen [facility] Urine specific gravity measu rementOrdered By: Dr. River on 06-08-2022 Specific gravity (U) [Rel density] 1.010 1.002-1.03 0 [facility] Urobilinogen Auto test strip Ql (U)Ordered By: Dr. River on 06-08-2022 Urobilinogen Ql (U) Normal mg/dl Normal [facility] Absolute lymphocyte countOrd ered By: Dr. Palmer on 06-02-2022 Lymphocytes Auto (Unsp spec) [#/Vol] 1.59 10*3/uL 0.83-4.51 [facility] Basophil percentageOrdered B y: Dr. Palmer on 06-02-2022 Basophils/100 WBC (Bld) 0.7 % 0-1 [facility] Chloride [Moles/Vol] 112 mmol/L 98-107 [facility] Eosinophils/100 WBC (Bld) 2.9 % 0-5 [facility] Glucose [Mass/Vol] 131 mg/dL 74-106 [facility] Comment on above: Fasting Glucose resu lt greater than or equal to 126 mg/dL suggests DIABETES MELLITUS per A.D.A. criteria. Neutrophils (Bld) [#/Vol] 2.5 10*3/uL 2.0-7.7 [facility] Neutrophils/100 WBC (Bld) 54.4 % 47-70 [facility] Potassium [Moles/Vol] 3.5 mmol/L 3.5-5.1 [facility] Sodium [Moles/Vol] 140 mmol/L 136-145 [facility] WBC (Bld) [#/Vol] 4.5 10*3/uL 4.4-11.0 [facility] Blood erythrocytes count (nu mber/volume)Ordered By: Dr. Palmer on 06-02-2022 RBC (Bld) [#/Vol] 4.42 10*6/uL 4.2-5.4 [facility] Blood hemoglobin measurement (mass/volume)Ordered By: Dr. Palmer on 06-02-2022 Hemoglobin (Bld) [Mass/Vol] 13.2 g/dL 12.0-15.0 [facility] Blood lymphocytes/100 leukoc ytesOrdered By: Dr. Palmer on 06-02-2022 Lymphocytes/100 WBC (Bld) 35.0 % 19-41 [facility] Blood monocytes/100 leukocyt esOrdered By: Dr. Palmer on 06-02-2022 Monocytes/100 WBC (Bld) 6.8 % 0-10 [facility] Blood platelet mean volumeOr dered By: Dr. Palmer on 06-02-2022 Platelet mean volume (Bld) [Entitic vol] 8.9 fL 6.2-12.0 [facility] Determination of erythrocyte mean corpuscular volume (MCV)Ordered By: Dr. Palmer on 06-02-2022 MCV (RBC) [Entitic vol] 90.5 fL 81-99 [facility] Hematocrit Auto (Bld) [Volum e fraction]Ordered By: Dr. Palmer on 06-02-2022 Hematocrit (Bld) [Volume fraction] 40.0 % 37-47 [facility] Laboratory - Chemistry and C hemistry - challengeOrdered By: Dr. Palmer on 06-02-2022 CO2 [Moles/Vol] 21.0 mmol/L 21.0-32.0 [facility] Urea nitrogen/Creatinine [Mass ratio] 13.5 mg/mg 10-20 [facility] Laboratory - Chemistry and C hemistry - challengeOrdered By: Dr. Frias on 06-02-2022 Magnesium [Mass/Vol] 2.0 mg/dL 1.6-2.6 [facility] Laboratory - Hematology and Cell countsOrdered By: Dr. Palmer on 06-02-2022 Erythrocyte distribution width (RBC) [Entitic vol] 44.7 fL 35.1-43.9 [facility] Erythrocyte distribution width (RBC) [Ratio] 13.5 % 11.6-14.6 [facility] Immature granulocytes/100 WBC (Bld) 0.200 % 0.0-0.9 [facility] Comment on above: IG% - Immature Granu locytes (promyelocytes, myelocytes and metamyelocytes) > 1% indicates that a LEFT SHIFT is Present. MCH (RBC) [Entitic mass] 29.9 pg 27.0-32.0 [facility] Nucleated RBC/100 WBC (Bld) [Ratio] 0 % 0-5 [facility] MCHC Auto (RBC) [Mass/Vol]Or dered By: Dr. Palmer on 06-02-2022 MCHC (RBC) [Mass/Vol] 33.0 g/dL 32-36 [facility] No Panel InformationOrdered By: Dr. Lake on 06-02-2022 Troponin I High Sensitivity 4 pg/mL 3.0-54.0 [facility] Comment on above: Please Note: New Kaitlyn t Units and Gender Specific Reference Ranges. For more information see Policy Stat Procedure [place] High Sensitivity Troponin (TNIH) and attachments. No Panel InformationOrdered By: Dr. Palmer on 06-02-2022 Estimated Creatinine Clearance Calc 70.27 ml/min [facility] Estimated GFR (MDRD) Amer 85 mL/min >60 [facility] Comment on above: GFR Calc Estimated GFR (MDRD) Non-Af Amer 70 mL/min >60 [facility] Comment on above: Non- GFR Calc Troponin I High Sensitivity 5 pg/mL 3.0-54.0 [facility] Comment on above: Please Note: New Kaitlyn t Units and Gender Specific Reference Ranges. For more information see Policy Stat Procedure [place] High Sensitivity Troponin (TNIH) and attachments. Platelets bldOrdered By: Dr. Palmer on 06-02-2022 Platelets (Bld) [#/Vol] 168 10*3/uL 150-450 [facility] Serum or plasma calcium leonel urement (mass/volume)Ordered By: Dr. Palmer on 06-02-2022 Calcium [Mass/Vol] 8.4 mg/dL 8.5-10.1 [facility] Serum or plasma creatinine m easurement (mass/volume)Ordered By: Dr. Palmer on 06-02-2022 Creatinine [Mass/Vol] 0.89 mg/dL 0.55-1.02 [facility] Comment on above: The validity of the calculated GFR & GFRAA in patients over 70 years has not been determined. Clinical correlation is essential. Serum or plasma urea nitroge n measurement (mass/volume)Ordered By: Dr. Palmer on 06-02-2022 Urea nitrogen [Mass/Vol] 12 mg/dL 7-18 [facility] Thin prep Papanicolaou smear with manual screeningOrdered By: Dr. Palmer on 06-02-2022 Thin prep Papanicolaou smear with manual screening 7 5-15 [facility] Whole blood hemoglobin A1c/t otal hemoglobin ratio (mass fraction)Ordered By: Dr. Frias on 06-02-2022 HbA1c (Bld) [Mass fraction] 5.1 % 3.8-5.6 [facility] Comment on above: Normal < 5.7 % Predi abetic 5.7 - 6.4 % Diabetic >or= 6.5 % Please note range changes. Basic metabolic 2000 panelon 05-22-2022 Anion gap [Moles/Vol] 3.0 mmol/L Normal <=15.0 [facility] Comment on above: Performed By: #### 2 4321-2 #### [facility] [address] [place] [address] [employer] - Adelaida GUZMANIA [id number] Calcium [Mass/Vol] 8.2 mg/dL Low 8.5-10.1 [facility] Comment on above: Performed By: #### 2 4321-2 #### [facility] [address] [place] [address] [employer] - Adelaida Iyer CLIA [id number] Chloride [Moles/Vol] 114 mmol/L High 98-107 [facility] Comment on above: Performed By: #### 2 4321-2 #### [facility] [address] [place] [address] [employer] - Adelaida GUZMANIA [id number] CO2 [Moles/Vol] 23 mmol/L Normal 21-32 [facility] Comment on above: Performed By: #### 2 4321-2 #### [facility] [address] [place] [address] [employer] - Adelaida GUZMANIA [id number] Creatinine [Mass/Vol] 0.87 mg/dL Normal 0.51-0.95 [facility] Comment on above: Performed By: #### 2 4321-2 #### [facility] [address] [place] [address] [employer] - Adelaida GUZMANIA [id number] GFR/1.73 sq M.predicted MDRD (S/P/Bld) [Vol rate/Area] mL/min/{1.73_m2} Normal >=59 [facility] Comment on above: Performed By: #### 2 4321-2 #### [facility] [address] [place] [address] [employer] - Adelaida Iyer CLIA [id number] Glucose [Mass/Vol] 91 mg/dL Normal 74-106 [facility] Comment on above: Performed By: #### 2 4321-2 #### [facility] [address] [facility] [place] [address] [employer] - Adelaida Iyeraisha WOLF [id number] HGFR GLOMERULAR FILTRATIO N RATE INTERPRETATION~The eGFR is calculated using the MDRD equation.~This equation has been validated in patients with chronic kidney disease;~however, it underestimates the GFR in healthy patients with GFR's over 60 mL/min.~The equation is not valid in children under the age of 18.~NOTE: Criteria for Chronic Kidney Disease:~ ~1. Kidney damage for at least three months, as defined~by structural or functional abnormalities of the kidney,~with or without decreased glomerular filtration rate, manifested by either:~* Pathological abnormalities or~* Markers of Kidney damage, including abnormalities in~the composition of the blood or urine or abnormalities in imaging tests.~ ~2. GFR <60 mL/min/1.73 m squared for at least three months, with or without kidney damage.~ Normal [facility] Comment on above: Performed By: #### 2 4321-2 #### [facility] [address] [facility] [place] [address] [employer] - Adelaida WOLF [id number] Potassium [Moles/Vol] 3.9 mmol/L Normal 3.5-5.1 [facility] Comment on above: Performed By: #### 2 4321-2 #### [facility] [address] [facility] [place] [address] [employer] - [facility]idaThe [facility] FallsAIDAN [id number] Sodium [Moles/Vol] 140 mmol/L Normal 136-145 [facility] Comment on above: Performed By: #### 2 4321-2 #### [facility] [address] [facility] [place] [address] [employer] [facility] [id number] Urea nitrogen [Mass/Vol] 7 mg/dL Normal 7-17 [facility] Comment on above: Performed By: #### 2 4321-2 #### [facility] [address] [place] [address] [employer] Adelaida WOLF [id number] Hemoglobin and Hematocrit pa medina (Bld)on 05-22-2022 Hematocrit (Bld) [Volume fraction] 38.3 % Normal 37.0-47.0 [facility] Comment on above: Performed By: #### 5 7021-8 #### [facility] [address] [place] [address] [employer] - Adelaida WOLF [id number] Hemoglobin (Bld) [Mass/Vol] 12.7 g/dL Normal 12.0-16.0 [facility] Comment on above: Performed By: #### 5 7021-8 #### [facility] [address] [place] [address] [employer] - Adelaida WOLF [id number] Lipid panel with direct LDLo n 05-22-2022 Cholesterol [Mass/Vol] 189 mg/dL Normal <=200 [facility] Comment on above: Performed By: #### 5 7021-8 #### [facility] [address] [place] [address] [employer] - Adelaida WOLF [id number] Cholesterol in HDL [Mass/Vol] 52 mg/dL Normal 40-59 [facility] Comment on above: Performed By: #### 5 7021-8 #### [facility] [address] [place] [address] [employer] - Adelaida GUZMANIA [id number] Cholesterol in LDL [Mass/Vol] 107 mg/dL High 5-100 [facility] Comment on above: Performed By: #### 5 7021-8 #### [facility] [address] [place] [address] [employer] - Adelaida GUZMANIA [id number] CHOLESTEROL/HDL 3.6 Normal [facility] Comment on above: Performed By: #### 5 7021-8 #### [facility] [address] [place] [address] [employer] - Adelaida WOLF [id number] HCHOL CHOLESTEROL INTERPRETATION Desirable <200 Borderline High 200-239 High >240 Normal [facility] Comment on above: Performed By: #### 5 7021-8 #### [facility] [address] [place] [address] [employer] - Adelaida WOLF [id number] HLDL LDL INTERPRETATION Desirable <100 Near Optimal 100-129 Borderline High 130-159 High 160-190 Very High >190 Normal [facility] Comment on above: Performed By: #### 5 7021-8 #### [facility] [address] [place] [address] [employer] - Adelaida WOLF [id number] HLIPID ATEROSCLEROSIS RISK FACTORS FOR LDL, HDL, AND CHOLESTEROL RISK FACTOR SEX LDL/HDL CHOL/HDL - 1/2 Average M 1.00 3.43 F 1.47 3.27 Average M 3.55 4.97 F 3.22 4.44 2X Average M 6.25 9.55 F 5.03 7.05 3X Average M 7.99 23.39 F 6.14 11.04 Normal [facility] Comment on above: Performed By: #### 5 7021-8 #### [facility] [address] [place] [address] [employer] - Adelaida WOLF [id number] HTRIG TRIGLYCERIDES INTERPRETATION Normal <150 Borderline High 150-199 High 200-499 Very High >500 Normal [facility] Comment on above: Performed By: #### 5 7021-8 #### [facility] [address] [place] [address] [employer] - Adelaida WOLF [id number] LDL/HDL 2.1 Normal [facility] Comment on above: Performed By: #### 5 7021-8 #### [place] [address] [place] [address] [employer] - Adelaida WOLF [id number] Triglyceride [Mass/Vol] 155 mg/dL High <=150 [facility] Comment on above: Performed By: #### 5 7021-8 #### [facility] [address] [place] [address] [employer] - Adelaida GUZMANIA [id number] PLATELET COUNTon 05-22-2022 Platelets (Bld) [#/Vol] 171 10*3/uL Normal 130-400 [facility] Comment on above: Performed By: #### 5 7021-8 #### [facility] [address] [facility] [place] [address] [employer] - Adelaida WOLF [id number] CBC W Auto Differential pane l (Bld)on 05-21-2022 Basophils (Bld) [#/Vol] 0.03 10*3/uL Normal <=0.70 [facility] Comment on above: Performed By: #### 5 7021-8 #### [facility] [address] [place] [address] [employer] - Adelaida GUZMANIA [id number] Basophils/100 WBC (Bld) 0.6 % Normal <=2.0 [facility] Comment on above: Performed By: #### 5 7021-8 #### [facility] [address] [facility] [place] [address] [employer] - Adelaida GUZMANIA [id number] Eosinophils (Bld) [#/Vol] 0.10 10*3/uL Normal <=0.70 [facility] Comment on above: Performed By: #### 5 7021-8 #### [facility] [address] [place] [address] [employer] - Adelaida GUZMANIA [id number] Eosinophils/100 WBC (Bld) 2.0 % Normal <=10.0 [facility] Comment on above: Performed By: #### 5 7021-8 #### [facility] [address] [place] [address]. [place] [address] [employer] - Adelaida GUZMANIA [id number] Erythrocyte distribution width (RBC) [Entitic vol] 45.1 fL Normal 36.4-46.3 [facility] Comment on above: Performed By: #### 5 7021-8 #### [address] [place] [address] [employer] - Adelaida GUZMANIA [id number] Hematocrit (Bld) [Volume fraction] 40.5 % Normal 37.0-47.0 [facility] Comment on above: Performed By: #### 5 7021-8 #### [address] [place] [address] [employer] - Adelaida GUZMANIA [id number] Hemoglobin (Bld) [Mass/Vol] 13.6 g/dL Normal 12.0-16.0 [facility] Comment on above: Performed By: #### 5 7021-8 #### [place] [address] [employer] - Adelaida Iyer CLIA [id number] Immature granulocytes (Bld) [#/Vol] 0.02 10*3/uL Normal <=0.10 [facility] Comment on above: Performed By: #### 5 7021-8 #### [place] [address] [employer] - Adelaida Iyer CLIA [id number] Immature granulocytes/100 WBC (Bld) 0.40 % Normal <=1.50 [facility] Comment on above: Performed By: #### 5 7021-8 #### [place] [address] [employer] - Adelaida Iyer CLIA [id number] Lymphocytes (Bld) [#/Vol] 1.34 10*3/uL Normal 1.20-3.40 [facility] Comment on above: Performed By: #### 5 7021-8 #### [place] [address] [employer] - Adelaida Iyer CLIA [id number] Lymphocytes/100 WBC (Bld) 26.8 % Normal 20.0-40.0 [facility] Comment on above: Performed By: #### 5 7021-8 #### [place] [address] [facility]. [place] [address] [employer] - Adelaida GUZMANIA [id number] MCH (RBC) [Entitic mass] 30.1 pg Normal 27.0-31.0 [facility] Comment on above: Performed By: #### 5 7021-8 #### [address] [place] [address] [employer] - Adelaida GUZMANIA [id number] MCHC (RBC) [Mass/Vol] 33.6 g/dL Normal 32.0-36.0 [facility] Comment on above: Performed By: #### 5 7021-8 #### [address] [place] [address] [employer] - Adelaida GUZMANIA [id number] MCV (RBC) [Entitic vol] 89.6 fL Normal 80.0-100.0 [facility] Comment on above: Performed By: #### 5 7021-8 #### [address] [place] [address] [employer] - Adelaida GUZMANIA [id number] Monocytes (Bld) [#/Vol] 0.37 10*3/uL Normal 0.10-0.60 [facility] Comment on above: Performed By: #### 5 7021-8 #### [address] [place] [address] [employer] - Adelaida Iyer CLIA [id number] Monocytes/100 WBC (Bld) 7.4 % Normal <=8.0 [facility] Comment on above: Performed By: #### 5 7021-8 #### [address] [place] [address] [employer] - Adelaida Iyer CLIA [id number] Neutrophils (Bld) [#/Vol] 3.14 10*3/uL Normal 1.40-6.50 [facility] Comment on above: Performed By: #### 5 7021-8 #### [facility] [address] [place] [address] [employer] - Adelaida GUZMANIA [id number] Neutrophils/100 WBC (Bld) 62.8 % Normal 50.0-70.0 [facility] Comment on above: Performed By: #### 5 7021-8 #### [facility] [address] [place] [address] [employer] - Adelaida GUZMANIA [id number] Nucleated RBC (Bld) [#/Vol] 0.00 10*3/uL Normal <=0.10 [facility] Comment on above: Performed By: #### 5 7021-8 #### [place] [address] [place] [address] [employer] - Adelaida GUZMANIA [id number] Platelet mean volume (Bld) [Entitic vol] 8.8 fL Low 9.0-13.0 [facility] Comment on above: Performed By: #### 5 7021-8 #### [facility] [address] [place] [address] [employer] - Adelaida GUZMANIA [id number] Platelets (Bld) [#/Vol] 183 10*3/uL Normal 130-400 [facility] Comment on above: Performed By: #### 5 7021-8 #### [place] [address] [place] [address] [employer] - Adelaida GUZMANIA [id number] RBC (Bld) [#/Vol] 4.52 10*6/uL Normal 4.00-6.30 [facility] Comment on above: Performed By: #### 5 7021-8 #### [place] [address] [place] [address] [employer] - Adelaida GUZMANIA [id number] WBC (Bld) [#/Vol] 5.00 10*3/uL Normal 4.80-10.80 [facility] Comment on above: Performed By: #### 5 7021-8 #### [place] [address] [place] [address] [employer] - Adelaida GUZMANIA [id number] Comprehensive metabolic 2000 panelon 05-21-2022 Albumin [Mass/Vol] 3.4 g/dL Normal 3.4-5.0 [facility] Comment on above: Performed By: #### 3 040-3, 91000-6, #### [facility] [address] [place] [address] [employer] - Adelaida GUZMANIA [id number] ALP [Catalytic activity/Vol] 103 U/L Normal 50-136 [facility] Comment on above: Performed By: #### 3 040-3, 59969-7, #### [place] [address] [place] [address] [employer] - Adelaida GUZMANIA [id number] ALT [Catalytic activity/Vol] 30 U/L Normal 14-59 [facility] Comment on above: Performed By: #### 3 040-3, 92907-6, #### [facility] [address] [place] [address] [employer] - Adelaida GUZMANIA [id number] Anion gap [Moles/Vol] 3.0 mmol/L Normal <=15.0 [facility] Comment on above: Performed By: #### 3 040-3, 97419-9, #### [place] [address] [place] [address] [employer] - Adelaida Iyer CLIA [id number] AST [Catalytic activity/Vol] 20 U/L Normal 15-37 [facility] Comment on above: Performed By: #### 3 040-3, 62410-8, #### [facility] [address] [place] [address] [employer] - Adelaida GUZMANIA [id number] Bilirubin [Mass/Vol] 0.2 mg/dL Normal 0.2-1.0 [facility] Comment on above: Performed By: #### 3 040-3, , #### [facility] [address] [place] [address] [employer] - Adelaida WOLF [id number] Calcium [Mass/Vol] 8.9 mg/dL Normal 8.5-10.1 [facility] Comment on above: Performed By: #### 3 040-3, , #### [facility] [address] [place] [address] [employer] - Adelaida GUZMANIA [id number] Chloride [Moles/Vol] 112 mmol/L High 98-107 [facility] Comment on above: Performed By: #### 3 040-3, , #### [facility] [address] [place] [address] [employer] - Adelaida GUZMANIA [id number] CO2 [Moles/Vol] 24 mmol/L Normal 21-32 [facility] Comment on above: Performed By: #### 3 040-3, , #### [facility] [address] [place] [address] [employer] - Adelaida WOLF [id number] Creatinine [Mass/Vol] 0.91 mg/dL Normal 0.51-0.95 [facility] Comment on above: Performed By: #### 3 040-3, , #### [facility] [address] [place] [address] [employer] - Adelaida GUZMANIA [id number] GFR/1.73 sq M.predicted MDRD (S/P/Bld) [Vol rate/Area] mL/min/{1.73_m2} Normal >=59 [facility] Comment on above: Performed By: #### 3 040-3, , #### [facility] [address] [place] [address] [employer] - Adelaida GUZMANIA [id number] Glucose [Mass/Vol] 114 mg/dL High 74-106 [facility] Comment on above: Performed By: #### 3 040-3, , #### [facility] [address] [place] [address] [employer] - Adelaida WOLF [id number] HGFR GLOMERULAR FILTRATIO N RATE INTERPRETATION~The eGFR is calculated using the MDRD equation.~This equation has been validated in patients with chronic kidney disease;~however, it underestimates the GFR in healthy patients with GFR's over 60 mL/min.~The equation is not valid in children under the age of 18.~NOTE: Criteria for Chronic Kidney Disease:~ ~1. Kidney damage for at least three months, as defined~by structural or functional abnormalities of the kidney,~with or without decreased glomerular filtration rate, manifested by either:~* Pathological abnormalities or~* Markers of Kidney damage, including abnormalities in~the composition of the blood or urine or abnormalities in imaging tests.~ ~2. GFR <60 mL/min/1.73 m squared for at least three months, with or without kidney damage.~ Normal [facility] Comment on above: Performed By: #### 3 040-3, , #### [facility] [address] [place] [address] [employer] - Adelaida WOLF [id number] Potassium [Moles/Vol] 3.7 mmol/L Normal 3.5-5.1 [facility] Comment on above: Performed By: #### 3 040-3, , #### [facility] [address] [place] [address] [employer] - Adelaida WOLF [id number] Protein [Mass/Vol] 6.5 g/dL Normal 6.4-8.2 [facility] Comment on above: Performed By: #### 3 040-3, 19881-2, #### [facility] [address] [place] [address] [employer] - Adelaida WOLF [id number] Sodium [Moles/Vol] 139 mmol/L Normal 136-145 [facility] Comment on above: Performed By: #### 3 040-3, 66856-0, #### [facility] [address] [place] [address] [employer] - Adelaida WOLF [id number] Urea nitrogen [Mass/Vol] 9 mg/dL Normal 7-17 [facility] Comment on above: Performed By: #### 3 040-3, , #### [facility] [address] [place] [address] [employer] - Adelaida WOLF [id number] LIPASEon 05-21-2022 Lipase [Catalytic activity/Vol] 133 U/L Normal 73-393 [facility] Comment on above: Performed By: #### 3 040-3, , #### [facility] [address] [place] [address] [employer] - Adelaida WOLF [id number] MAGNESIUMon 05-21-2022 Magnesium [Mass/Vol] 2.3 mg/dL Normal 1.6-2.6 [facility] Comment on above: Performed By: #### 3 040-3, , #### [facility] [address] [place] [address] [employer] - Adelaida WOLF [id number] PT and aPTT panel Coag (PPP) on 05-21-2022 aPTT Coag (PPP) [Time] 24.6 s Normal 23.5-31.3 [facility] Comment on above: Performed By: #### 5 7021-8 #### [facility] [address] [place] [address] [employer] - Adelaida WOLF [id number] HPTINR INR REFERENCE RANGE INTERPRETATION Patients on Coumadin 2.0 - 3.0 Patients with mechanical heart valves 2.5 - 3.5 Normal [facility] Comment on above: Performed By: #### 5 7021-8 #### [facility] [address] [place] [address] [employer] - Adelaida WOLF [id number] INR Coag (PPP) [Relative time] 1.0 {INR} Normal 0.8-1.1 [facility] Comment on above: Performed By: #### 5 7021-8 #### [facility] [address] [place] [address] [employer] - Adelaida WOLF [id number] PT Coag (PPP) [Time] 10.8 s Normal 9.3-11.5 [facility] Comment on above: Performed By: #### 5 7021-8 #### [facility] [address] [facility] [place] [address] [employer] - Adelaida WOLF [id number] TROPONIN HIGH SENSITIVITYon 05-21-2022 TNIH 4.80 pg/mL Normal <=59.00 [facility] Comment on above: Result Comment: <59 pg/mL is considered a negative result. Performed By: #### T ROP2 #### [facility] [address] [place] [address]. [place] [address] [employer] - Adelaida WOLF [id number] Absolute lymphocyte countOrd ered By: Dr. Cool on 03-25-2022 Lymphocytes Auto (Unsp spec) [#/Vol] 1.18 10*3/uL 0.83-4.51 [facility] Basophil percentageOrdered B y: Dr. Cool on 03-25-2022 Basophil percentage 0 SEEN /hpf 0-5 [facility] Basophils/100 WBC (Bld) 0.6 % 0-1 [facility] Bilirubin [Mass/Vol] 0.30 mg/dL 0.20-1.00 [facility] Comment on above: For patients on eltr ombopag therapy, use of Dimension [place] TBIL is not recommended. Chloride [Moles/Vol] 110 mmol/L 98-107 [facility] Cholesterol [Mass/Vol] 244 mg/dL <200 [facility] Comment on above: <200 mg/dL Desirable 200-240 mg/dL Borderline >240 mg/dL High Risk Eosinophils/100 WBC (Bld) 2.8 % 0-5 [facility] Glucose [Mass/Vol] 100 mg/dL 74-106 [facility] Comment on above: Fasting Glucose resu lt from 100 to 125 mg/dL suggests IMPAIRED HOMEOSTASIS per A.D.A. criteria. Neutrophils (Bld) [#/Vol] 3.3 10*3/uL 2.0-7.7 [facility] Neutrophils/100 WBC (Bld) 65.6 % 47-70 [facility] Potassium [Moles/Vol] 4.0 mmol/L 3.5-5.1 [facility] Protein [Mass/Vol] 6.8 g/dL 6.4-8.2 [facility] Sodium [Moles/Vol] 140 mmol/L 136-145 [facility] Triglyceride [Mass/Vol] 122 mg/dL <199 [facility] Comment on above: The drugs N-Acetylcy steine and Metamizole may falsely depress this assay.Serum Triglycerides Reference Interval Normal <150 mg/dL Borderline high 150 - 199 mg/dL High 200 - 499 mg/dL Very High > or = 500 mg/dL WBC (Bld) [#/Vol] 5.1 10*3/uL 4.4-11.0 [facility] Bilirubin Test strip Ql (U)O rdered By: Dr. Cool on 03-25-2022 Bilirubin Ql (U) Negative Negative [facility] Blood erythrocytes count (nu mber/volume)Ordered By: Dr. Cool on 03-25-2022 RBC (Bld) [#/Vol] 4.95 10*6/uL 4.2-5.4 [facility] Blood hemoglobin measurement (mass/volume)Ordered By: Dr. Cool on 03-25-2022 Hemoglobin (Bld) [Mass/Vol] 14.6 g/dL 12.0-15.0 [facility] Blood lymphocytes/100 leukoc ytesOrdered By: Dr. Cool on 03-25-2022 Lymphocytes/100 WBC (Bld) 23.3 % 19-41 [facility] Blood monocytes/100 leukocyt esOrdered By: Dr. Cool on 03-25-2022 Monocytes/100 WBC (Bld) 7.3 % 0-10 [facility] Blood platelet mean volumeOr dered By: Dr. Cool on 03-25-2022 Platelet mean volume (Bld) [Entitic vol] 8.8 fL 6.2-12.0 [facility] Determination of erythrocyte mean corpuscular volume (MCV)Ordered By: Dr. Cool on 03-25-2022 MCV (RBC) [Entitic vol] 93.9 fL 81-99 [facility] Hematocrit Auto (Bld) [Volum e fraction]Ordered By: Dr. Cool on 03-25-2022 Hematocrit (Bld) [Volume fraction] 46.5 % 37-47 [facility] Ketones Test strip Ql (U)Ord ered By: Dr. Cool on 03-25-2022 Ketones Ql (U) Negative Negative [facility] Laboratory - Chemistry and C hemistry - challengeOrdered By: Dr. Cool on 03-25-2022 ALP [Catalytic activity/Vol] 94 U/L 45-117 [facility] ALT [Catalytic activity/Vol] 38 U/L 13-56 [facility] CO2 [Moles/Vol] 24.0 mmol/L 21.0-32.0 [facility] Globulin (S) [Mass/Vol] 3.1 g/dL 2.2-4.2 [facility] Urea nitrogen/Creatinine [Mass ratio] 8.8 mg/mg 10-20 [facility] Laboratory - Hematology and Cell countsOrdered By: Dr. Cool on 03-25-2022 Erythrocyte distribution width (RBC) [Entitic vol] 46.6 fL 35.1-43.9 [facility] Erythrocyte distribution width (RBC) [Ratio] 13.6 % 11.6-14.6 [facility] Immature granulocytes/100 WBC (Bld) 0.400 % 0.0-0.9 [facility] Comment on above: IG% - Immature Granu locytes (promyelocytes, myelocytes and metamyelocytes) > 1% indicates that a LEFT SHIFT is Present. MCH (RBC) [Entitic mass] 29.5 pg 27.0-32.0 [facility] Nucleated RBC/100 WBC (Bld) [Ratio] 0 % 0-5 [facility] MCHC Auto (RBC) [Mass/Vol]Or dered By: Dr. Cool on 03-25-2022 MCHC (RBC) [Mass/Vol] 31.4 g/dL 32-36 [facility] Mucus LM Ql (Urine sed)Order ed By: Dr. Cool on 03-25-2022 Mucus Ql (Urine sed) 0 SEEN /hpf [facility] Nitrite Test strip Ql (U)Ord ered By: Dr. Cool on 03-25-2022 Nitrite Ql (U) Negative Negative [facility] No Panel InformationOrdered By: Dr. Cool on 03-25-2022 Estimated GFR (MDRD) Amer 64 mL/min >60 [facility] Comment on above: GFR Calc Estimated GFR (MDRD) Non-Af Amer 53 mL/min >60 [facility] Comment on above: Non- GFR Calc Thyroid Stimulating Hormone (TSH) 1.95 uIU/mL 0.358-3.74 [facility] Urine Microalbumin/Creatini ne Ratio 8.8 mg/g CRE <30 [facility] Platelets bldOrdered By: Dr. Cool on 03-25-2022 Platelets (Bld) [#/Vol] 215 10*3/uL 150-450 [facility] Protein Test strip Ql (U)Ord ered By: Dr. Cool on 03-25-2022 Protein Ql (U) Negative Negative [facility] Serum or plasma albumin leonel urement (mass/volume)Ordered By: Dr. Cool on 03-25-2022 Albumin [Mass/Vol] 3.7 g/dL 3.2-5.0 [facility] Serum or plasma albumin/glob ulin mass ratioOrdered By: Dr. Cool on 03-25-2022 Albumin/Globulin [Mass ratio] 1.2 {ratio} 0.9-2.4 [facility] Serum or plasma calcium leonel urement (mass/volume)Ordered By: Dr. Cool on 03-25-2022 Calcium [Mass/Vol] 8.7 mg/dL 8.5-10.1 [facility] Serum or plasma cholesterol in HDL measurement (mass/volume)Ordered By: Dr. Cool on 03-25-2022 Cholesterol in HDL [Mass/Vol] 69 mg/dL >40 [facility] Comment on above: The drugs N-Acetylcy steine and Metamizole may falsely depress this assay. Reference Range HDL <40 mg/dL Low HDL Cholesterol HDL >or= 60 mg/dL High HDL Cholesterol Serum or plasma cholesterol in VLDL measurement (mass/volume)Ordered By: Dr. Cool on 03-25-2022 Cholesterol in VLDL [Mass/Vol] 24 mg/dL 5-40 [facility] Serum or plasma creatinine m easurement (mass/volume)Ordered By: Dr. Cool on 03-25-2022 Creatinine [Mass/Vol] 1.13 mg/dL 0.55-1.02 [facility] Comment on above: The validity of the calculated GFR & GFRAA in patients over 70 years has not been determined. Clinical correlation is essential. Serum or plasma low density lipoprotein (LDL) cholesterol measurement (mass/volume)Ordered By: Dr. Cool on 03-25-2022 Cholesterol in LDL [Mass/Vol] 151 mg/dL 0-130 [facility] Serum or plasma urea nitroge n measurement (mass/volume)Ordered By: Dr. Cool on 03-25-2022 Urea nitrogen [Mass/Vol] 10 mg/dL 7-18 [facility] Squamous epithelial cells de tection in urine sediment by light microscopyOrdered By: Dr. Cool on 03-25-2022 Epithelial cells.squamous LM Ql (Urine sed) 0 SEEN /hpf 5-10 [facility] Thin prep Papanicolaou smear with manual screeningOrdered By: Dr. Cool on 03-25-2022 Thin prep Papanicolaou smear with manual screening 22 U/L 15-37 [facility] Thin prep Papanicolaou smear with manual screening 6 5-15 [facility] Thin prep Papanicolaou smear with manual screening 5.8 mg/L NO RANGE EST. [facility] Urine blood detectionOrdered By: Dr. Cool on 03-25-2022 RBC Ql (U) Negative Negative [facility] RBC Ql (U) 0 SEEN /hpf 0-5 [facility] Urine clarityOrdered By: Dr. Cool on 03-25-2022 Clarity (U) Sl. Cloudy Clear [facility] Urine color determinationOrd ered By: Dr. Cool on 03-25-2022 Color (U) Yellow Yellow [facility] Urine creatinine measurement (mass/volume)Ordered By: Dr. Cool on 03-25-2022 Creatinine (U) [Mass/Vol] 65.80 mg/dL NO RANGE EST. [facility] Urine glucose detectionOrder ed By: Dr. Cool on 03-25-2022 Glucose Ql (U) Normal mg/dl Normal [facility] Urine leukocyte esterase det ection by dipstickOrdered By: Dr. Cool on 03-25-2022 Leukocyte esterase Test strip Ql (U) Negative Negative [facility] Urine pHOrdered By: Dr. Gutiérrez on on 03-25-2022 pH (U) 7.0 [pH] 5.0 - 8.0 [facility] Urine sediment bacteria coun t by microscopy (number/high power field)Ordered By: Dr. Cool on 03-25-2022 Bacteria LM.HPF (Urine sed) [#/Area] 0 /[HPF] None Seen [facility] Urine specific gravity measu rementOrdered By: Dr. Cool on 03-25-2022 Specific gravity (U) [Rel density] 1.010 1.002-1.03 0 [facility] Urobilinogen Auto test strip Ql (U)Ordered By: Dr. Cool on 03-25-2022 Urobilinogen Ql (U) Normal mg/dl Normal [facility] CARBAMAZEPINEon 11-29-2021 carBAMazepine [Mass/Vol] 11.7 ug/mL Normal 4.0-12.0 [facility] Comment on above: Performed By: #### 5 7021-8 #### [facility] [address] [address] [employer] WOLF [id number] CBC panel Auto (Bld)on 11-29 Erythrocyte distribution width (RBC) [Entitic vol] 44.8 fL Normal 36.4-46.3 [facility] Comment on above: Performed By: #### 5 8410-2 #### [facility] [address] [address] [employer] WOLF [id number] Hematocrit (Bld) [Volume fraction] 42.4 % Normal 37.0-47.0 [facility] Comment on above: Performed By: #### 5 8410-2 #### [facility] [address] [place] [address] [employer] WOLF [id number] Hemoglobin (Bld) [Mass/Vol] 13.9 g/dL Normal 12.0-16.0 [facility] Comment on above: Performed By: #### 5 8410-2 #### [facility] [address] [place] [address] [employer] GUZMANIA [id number] MCH (RBC) [Entitic mass] 29.8 pg Normal 27.0-31.0 [facility] Comment on above: Performed By: #### 5 8410-2 #### [place] [address] [place] [address] [employer] WOLF [id number] MCHC (RBC) [Mass/Vol] 32.8 g/dL Normal 32.0-36.0 [facility] Comment on above: Performed By: #### 5 8410-2 #### [place] [address] [place] [address] [employer] WOLF [id number] MCV (RBC) [Entitic vol] 90.8 fL Normal 80.0-100.0 [facility] Comment on above: Performed By: #### 5 8410-2 #### [address] [place] [address] [employer] WOLF [id number] Platelet mean volume (Bld) [Entitic vol] 9.3 fL Normal 9.0-13.0 [facility] Comment on above: Performed By: #### 5 8410-2 #### [place] [address] [place] [address] [employer] WOLF [id number] Platelets (Bld) [#/Vol] 169 10*3/uL Normal 130-400 [facility] Comment on above: Performed By: #### 5 8410-2 #### [place] [address] [place] [address] [employer] GUZMANIA [id number] RBC (Bld) [#/Vol] 4.67 10*6/uL Normal 4.00-6.30 [facility] Comment on above: Performed By: #### 5 8410-2 #### [facility] [address] [place] [address] [employer] GUZMANIA [id number] WBC (Bld) [#/Vol] 4.80 10*3/uL Normal 4.80-10.80 [facility] Comment on above: Performed By: #### 5 8410-2 #### [facility] [address] [place] [address] [employer] GUZMANIA [id number] Comprehensive metabolic 2000 panelon 11-29-2021 Albumin [Mass/Vol] 3.5 g/dL Normal 3.4-5.0 [facility] Comment on above: Performed By: #### 2 4323-8 #### [facility] [address] [place] [address] [employer] GUZMANIA [id number] ALP [Catalytic activity/Vol] 99 U/L Normal 50-136 [facility] Comment on above: Performed By: #### 2 4323-8 #### [facility] [address] [place] [address] [employer] GUZMANIA [id number] ALT [Catalytic activity/Vol] 29 U/L Normal 14-59 [facility] Comment on above: Performed By: #### 2 4323-8 #### [facility] [address] [place] [address] [employer] GUZMANIA [id number] Anion gap [Moles/Vol] 3.0 mmol/L Normal <=15.0 [facility] Comment on above: Performed By: #### 2 4323-8 #### [facility] [address] [place] [address] [employer] GUZMANIA [id number] AST [Catalytic activity/Vol] 19 U/L Normal 15-37 [facility] Comment on above: Performed By: #### 2 4323-8 #### [facility] [address] [place] [address] [employer] GUZMANIA [id number] Bilirubin [Mass/Vol] 0.3 mg/dL Normal 0.2-1.0 [facility] Comment on above: Performed By: #### 2 4323-8 #### [facility] [address] [place] [address] [employer] GUZMANIA [id number] Calcium [Mass/Vol] 8.4 mg/dL Low 8.5-10.1 [facility] Comment on above: Performed By: #### 2 4323-8 #### [facility] [address] [place] [address] [employer] GUZMANIA [id number] Chloride [Moles/Vol] 114 mmol/L High 98-107 [facility] Comment on above: Performed By: #### 2 4323-8 #### [facility] [address] [place] [address] [employer] Iyer CLIA [id number] CO2 [Moles/Vol] 24 mmol/L Normal 21-32 [facility] Comment on above: Performed By: #### 2 4323-8 #### [facility] [address] [place] [address] [employer] Iyer CLIA [id number] Creatinine [Mass/Vol] 0.95 mg/dL Normal 0.51-0.95 [facility] Comment on above: Performed By: #### 2 4323-8 #### [facility] [address] [place] [address] [employer] GUZMANIA [id number] GFR/1.73 sq M.predicted MDRD (S/P/Bld) [Vol rate/Area] mL/min/{1.73_m2} Normal >=59 [facility] Comment on above: Performed By: #### 2 4323-8 #### [facility] [address] [place] [address] [employer] WOLF [id number] Glucose [Mass/Vol] 94 mg/dL Normal 74-106 [facility] Comment on above: Performed By: #### 2 4323-8 #### [facility] [address] [place] [address] [employer] WOLF [id number] HGFR GLOMERULAR FILTRATIO N RATE INTERPRETATION~The eGFR is calculated using the MDRD equation.~This equation has been validated in patients with chronic kidney disease;~however, it underestimates the GFR in healthy patients with GFR's over 60 mL/min.~The equation is not valid in children under the age of 18.~NOTE: Criteria for Chronic Kidney Disease:~ ~1. Kidney damage for at least three months, as defined~by structural or functional abnormalities of the kidney,~with or without decreased glomerular filtration rate, manifested by either:~* Pathological abnormalities or~* Markers of Kidney damage, including abnormalities in~the composition of the blood or urine or abnormalities in imaging tests.~ ~2. GFR <60 mL/min/1.73 m squared for at least three months, with or without kidney damage.~ Normal [facility] Comment on above: Performed By: #### 2 4323-8 #### [facility] [address] [place] [address] [employer] WOLF [id number] Potassium [Moles/Vol] 4.1 mmol/L Normal 3.5-5.1 [facility] Comment on above: Performed By: #### 2 4323-8 #### [facility] [address] [place] [address] [employer] WOLF [id number] Protein [Mass/Vol] 6.2 g/dL Low 6.4-8.2 [facility] Comment on above: Performed By: #### 2 4323-8 #### [facility] [address] [place] [address] [employer] WOLF [id number] Sodium [Moles/Vol] 141 mmol/L Normal 136-145 [facility] Comment on above: Performed By: #### 2 4323-8 #### [facility] [address] [place] [address] [employer] WOLF [id number] Urea nitrogen [Mass/Vol] 10 mg/dL Normal 7-17 [facility] Comment on above: Performed By: #### 2 4323-8 #### [facility] [address] [place] [address] [employer] WOLF [id number] carBAMazepine [Mass/Vol]on 0 11-29-2021 [facility] CARBAMAZEPINE/TEGRET OL INTERPRETATION Therapeutic Carbamazepine concentrations vary significantly depending on the individual patient and on the use of other drugs with Carbamazepine. A therapeutic range of 4-12 ug/mL includes effective serum/plasma concentrations outside this range. A therapeutic range of 8-12 ug/mL for peak drug levels indicates effective plasma or serum levels for many patients who are on Carbamazepine alone. Patients who are taking Carbamazepine in conjunction with other anti-epileptic drugs have a recommended therapeutic range of 4-8 ug/mL. Normal [facility] Comment on above: Performed By: #### 5 7021-8 #### [facility] [address] [place] [address] [employer] WOLF [id number] Lipid panel with direct LDLo n 10-30-2021 Cholesterol [Mass/Vol] 208 mg/dL High <=200 [facility] Comment on above: Performed By: #### 5 7698-3 #### [facility] [address] [place] [address] [employer] WOLF [id number] Cholesterol in HDL [Mass/Vol] 61 mg/dL High 40-59 [facility] Comment on above: Performed By: #### 5 7698-3 #### [facility] [address] [place] [address] [employer] WOLF [id number] Cholesterol in LDL [Mass/Vol] 118 mg/dL High 5-100 [facility] Comment on above: Performed By: #### 5 7698-3 #### [facility] [address] [place] [address] [employer] WOLF [id number] CHOLESTEROL/HDL 3.4 Normal [facility] Comment on above: Performed By: #### 5 7698-3 #### [facility] [address] [place] [address] [employer] WOLF [id number] HCHOL CHOLESTEROL INTERPRETATION Desirable <200 Borderline High 200-239 High >240 Normal [facility] Comment on above: Performed By: #### 5 7698-3 #### [facility] [address] [place] [address] [employer] WOLF [id number] HLDL LDL INTERPRETATION Desirable <100 Near Optimal 100-129 Borderline High 130-159 High 160-190 Very High >190 Normal [facility] Comment on above: Performed By: #### 5 7698-3 #### [facility] [address] [place] [address] [employer] WOLF [id number] HLIPID ATEROSCLEROSIS RISK FACTORS FOR LDL, HDL, AND CHOLESTEROL RISK FACTOR SEX LDL/HDL CHOL/HDL - 1/2 Average M 1.00 3.43 F 1.47 3.27 Average M 3.55 4.97 F 3.22 4.44 2X Average M 6.25 9.55 F 5.03 7.05 3X Average M 7.99 23.39 F 6.14 11.04 Normal [facility] Comment on above: Performed By: #### 5 7698-3 #### [facility] [address] [place] [address] [employer] WOLF [id number] HTRIG TRIGLYCERIDES INTERPRETATION Normal <150 Borderline High 150-199 High 200-499 Very High >500 Normal [facility] Comment on above: Performed By: #### 5 7698-3 #### [facility] [address] [facility] [place] [address] [employer] GUZMANIA [id number] LDL/HDL 1.9 Normal [facility] Comment on above: Performed By: #### 5 7698-3 #### [facility] [address] [facility] [place] [address] [employer] WOLF [id number] Triglyceride [Mass/Vol] 146 mg/dL Normal <=150 [facility] Comment on above: Performed By: #### 5 7698-3 #### [facility] [address] [place], [place] [address] [place] [address] [employer] WOLF [id number] MAGNESIUM ([id number])Ordered By: Food And Beverage Assistant on 10-10-2021 Magnesium [Mass/Vol] 2.2 mg/dL Normal 1.6-2.3 [facility] re[facility]; [facility] Work Phone: Comment on above: PATIENT NOT FASTINGP ERFORMED BY: DEACON Farmeronbonnie [id number] Agile SystemsThe [facility] [id number] POTASSIUM SERUM ([id number])Order ed By: Food And Beverage Assistant on 10-10-2021 Potassium [Moles/Vol] 3.9 mmol/L Normal 3.5-5.2 [facility] prehensive [facility] Medicine; [facility] Work Phone: Comment on above: PATIENT NOT FASTINGP ERFORMED BY: DEACON X [id number] [facility] [id number] Absolute lymphocyte counton 10-08-2021 Lymphocytes Auto (Unsp spec) [#/Vol] 1.31 10*3/uL 0.83-4.51 [facility] Work Phone: Basophil percentageon 2021 Basophils/100 WBC (Bld) 0.4 % 0-1 [facility] Work Phone: Chloride [Moles/Vol] 111 mmol/L 98-107 [facility] Work Phone: Eosinophils/100 WBC (Bld) 1.3 % 0-5 [facility] Work Phone: Glucose [Mass/Vol] 114 mg/dL 74-106 [facility] Work Phone: Comment on above: Fasting Glucose resu lt from 100 to 125 mg/dL suggests IMPAIRED HOMEOSTASIS per A.D.A. criteria. Neutrophils (Bld) [#/Vol] 3.6 10*3/uL 2.0-7.7 [facility] Work Phone: Neutrophils/100 WBC (Bld) 66.5 % 47-70 [facility] Work Phone: Potassium [Moles/Vol] 3.2 mmol/L 3.5-5.1 [facility] Work Phone: Sodium [Moles/Vol] 142 mmol/L 136-145 [facility] Work Phone: WBC (Bld) [#/Vol] 5.3 10*3/uL 4.4-11.0 [facility] Work Phone: Blood erythrocytes count (nu mber/volume)on 10-08-2021 RBC (Bld) [#/Vol] 4.50 10*6/uL 4.2-5.4 [facility] Work Phone: Blood hemoglobin measurement (mass/volume)on 10-08-2021 Hemoglobin (Bld) [Mass/Vol] 13.4 g/dL 12.0-15.0 [facility] Work Phone: Blood lymphocytes/100 leukoc yteson 10-08-2021 Lymphocytes/100 WBC (Bld) 24.5 % 19-41 [facility] Work Phone: Blood monocytes/100 leukocyt eson 10-08-2021 Monocytes/100 WBC (Bld) 6.7 % 0-10 [facility] Work Phone: Blood platelet mean volumeon 10-08-2021 Platelet mean volume (Bld) [Entitic vol] 9.4 fL 6.2-12.0 [facility] Work Phone: Determination of erythrocyte mean corpuscular volume (MCV)on 10-08-2021 MCV (RBC) [Entitic vol] 92.2 fL 81-99 [facility] Work Phone: Hematocrit Auto (Bld) [Volum e fraction]on 10-08-2021 Hematocrit (Bld) [Volume fraction] 41.5 % 37-47 [facility] Work Phone: Laboratory - Chemistry and C hemistry - challengeon 10-08-2021 CO2 [Moles/Vol] 24.0 mmol/L 21.0-32.0 [facility] Work Phone: Urea nitrogen/Creatinine [Mass ratio] 7.6 mg/mg 10-20 [facility] Work Phone: Laboratory - Hematology and Cell countson 10-08-2021 Erythrocyte distribution width (RBC) [Entitic vol] 47.3 fL 35.1-43.9 [facility] Work Phone: Erythrocyte distribution width (RBC) [Ratio] 13.9 % 11.6-14.6 [facility] Work Phone: Immature granulocytes/100 WBC (Bld) 0.600 % 0.0-0.9 [facility] Work Phone: Comment on above: IG% - Immature Granu locytes (promyelocytes, myelocytes and metamyelocytes) > 1% indicates that a LEFT SHIFT is Present. MCH (RBC) [Entitic mass] 29.8 pg 27.0-32.0 [facility] Work Phone: Nucleated RBC/100 WBC (Bld) [Ratio] 0 % 0-5 [facility] Work Phone: MCHC Auto (RBC) [Mass/Vol]on 10-08-2021 MCHC (RBC) [Mass/Vol] 32.3 g/dL 32-36 [facility] Work [facility]: No Panel Informationon 10-08 Troponin I High Sensitivity 3 pg/mL 3.0-54.0 [facility] Work Phone: Comment on above: Please Note: New Kaitlyn t Units and Gender Specific Reference Ranges. For more information see Policy Stat Procedure [place] High Sensitivity Troponin (TNIH) and attachments. Estimated Creatinine Clearance Calc 59.56 ml/min [facility] Work Phone: Estimated GFR (MDRD) Amer 70 mL/min >60 [facility] Work Phone: Comment on above: GFR Calc Estimated GFR (MDRD) Non-Af Amer 58 mL/min >60 [facility] Work Phone: Comment on above: Non- GFR Calc Platelets bldon 10-08-2021 Platelets (Bld) [#/Vol] 195 10*3/uL 150-450 [facility] Work Phone: Serum or plasma calcium leonel urement (mass/volume)on 10-08-2021 Calcium [Mass/Vol] 8.5 mg/dL 8.5-10.1 [facility] Work Phone: Serum or plasma creatinine m easurement (mass/volume)on 10-08-2021 Creatinine [Mass/Vol] 1.05 mg/dL 0.55-1.02 [facility] Work Phone: Comment on above: The validity of the calculated GFR & GFRAA in patients over 70 years has not been determined. Clinical correlation is essential. Serum or plasma urea nitroge n measurement (mass/volume)on 10-08-2021 Urea nitrogen [Mass/Vol] 8 mg/dL 7-18 [facility] Work Phone: Thin prep Papanicolaou smear with manual screeningon 10-08-2021 Thin prep Papanicolaou smear with manual screening 7 5-15 [facility] Work Phone: CBC with auto diff ([id number])Or dered By: Food And Beverage Assistant on 09-19-2021 Basophils (Bld) [#/Vol] 0.0 10*3/uL Normal 0.0-0.2 [facility]; [facility] Work Phone: Comment on above: PATIENT NOT FASTINGP ERFORMED BY: CB [facility] [id number]Dublin [place] [id number] Basophils/100 WBC (Bld) 1 % Normal [facility]; [facility] Work Phone: Comment on above: PATIENT NOT FASTINGP ERFORMED BY: CB [facility] [id number] RoadDublin [place] [id number] Eosinophils (Bld) [#/Vol] 0.1 10*3/uL Normal 0.0-0.4 [facility]; [facility] Work Phone: Comment on above: PATIENT NOT FASTINGP ERFORMED BY: CB [facility] Jqmpnx0684 [address] RoadDublin [place] [id number] Eosinophils/100 WBC (Bld) 2 % Normal [facility]; [facility] Work Phone: Comment on above: PATIENT NOT FASTINGP ERFORMED BY: CB [facility] Fhlisr1869 [address] RoadDuin [place] [id number] Erythrocyte distribution width (RBC) [Ratio] 13.5 % Normal 11.7-15.4 [facility]; [facility] Work Phone: Comment on above: PATIENT NOT FASTINGP ERFORMED BY: CB [facility] Yeojwu6468 [address] RoadDublin [place] [id number] Hematocrit (Bld) [Volume fraction] 43.8 % Normal 34.0-46.6 [facility]; [facility] Work Phone: Comment on above: PATIENT NOT FASTINGP ERFORMED BY: CB [facility] Kiotkd8557 [address] RoadDublin [place] [id number] Hemoglobin (Bld) [Mass/Vol] 14.2 g/dL Normal 11.1-15.9 [facility]; [facility] Work Phone: Comment on above: PATIENT NOT FASTINGP ERFORMED BY: CB [facility] Xzzsqd5473 [address] RoadDublin [place] [id number] Immature granulocytes (Bld) [#/Vol] 0.0 10*3/uL Normal 0.0-0.1 [facility]; [facility] Work Phone: Comment on above: PATIENT NOT FASTINGP ERFORMED BY: DEACON Labalbert Huerta6370 [address] RoadDublin [place] [id number] Immature granulocytes/100 WBC (Bld) 1 % Normal [facility]; [facility] Work Phone: Comment on above: PATIENT NOT FASTINGP ERFORMED BY: CB [facility] Ojlurc3064 [address] RoadWatauga Medical Centerin [place] [id number] Lymphocytes (Bld) [#/Vol] 1.6 10*3/uL Normal 0.7-3.1 [facility]; [facility] Work Phone: Comment on above: PATIENT NOT FASTINGP ERFORMED BY: DEACON Labalbert WongZmjfab7544 [address] RoadWatauga Medical Centerin [place] [id number] Lymphocytes/100 WBC (Bld) 26 % Normal [facility]; [facility] Work Phone: Comment on above: PATIENT NOT FASTINGP ERFORMED BY: DEACON [facility] Xlzrai[address] [facility]in [place] [id number] MCH (RBC) [Entitic mass] 29.0 pg Normal 26.6-33.0 [facility]; [facility] Work Phone: Comment on above: PATIENT NOT FASTINGP ERFORMED BY: DEACON [facility] Uuhkdd[address] [facility]in [place] [id number] MCHC (RBC) [Mass/Vol] 32.4 g/dL Normal 31.5-35.7 [facility]; [facility] Work Phone: Comment on above: PATIENT NOT FASTINGP ERFORMED BY: CB [facility] Hbihqq2106 [address] RoadDublin [place] [id number] MCV (RBC) [Entitic vol] 89 fL Normal 79-97 [facility]; [facility] Work Phone: Comment on above: PATIENT NOT FASTINGP ERFORMED BY: CB [facility] Qmptzs4014 [address] RoadDublin [place] [id number] Monocytes (Bld) [#/Vol] 0.5 10*3/uL Normal 0.1-0.9 [facility]; [facility] Work Phone: Comment on above: PATIENT NOT FASTINGP ERFORMED BY: CB [facility] Vbaulv3679 [address] RoadDublin [place] [id number] Monocytes/100 WBC (Bld) 8 % Normal [facility]; [facility] Work Phone: Comment on above: PATIENT NOT FASTINGP ERFORMED BY: CB [facility] Xwfrte5482 [address] RoadDublin [place] [id number] Neutrophils (Bld) [#/Vol] 3.9 10*3/uL Normal 1.4-7.0 [facility]; [facility] Work Phone: Comment on above: PATIENT NOT FASTINGP ERFORMED BY: CB [facility] Fdyjmh3845 [address] RoadDublin [place] [id number] Neutrophils/100 WBC (Bld) 62 % Normal [facility]; [facility] Work Phone: Comment on above: PATIENT NOT FASTINGP ERFORMED BY: CB [facility] Moufat3941 [address] RoadDublin [place] [id number] Platelets (Bld) [#/Vol] 197 10*3/uL Normal 150-450 [facility]; [facility] Work Phone: Comment on above: PATIENT NOT FASTINGP ERFORMED BY: CB [facility] Odigsq1148 [address] RoadDublin [place] [id number] RBC (Bld) [#/Vol] 4.90 10*6/uL Normal 3.77-5.28 Compr ehensive [facility]; [facility] Work Phone: Comment on above: PATIENT NOT FASTINGP ERFORMED BY: CB [facility] Unipmy0931 [address] RoadDublin [place] [id number] WBC (Bld) [#/Vol] 6.1 10*3/uL Normal 3.4-10.8 Compre hensive [facility]; [facility] Work Phone: Comment on above: PATIENT NOT FASTINGP ERFORMED BY: CB [facility] Hfmhpc0260 [address] RoadDublin [place] [id number] FERRITIN ([id number])Ordered By: Food And Beverage Assistant on 09-19-2021 Ferritin [Mass/Vol] 15 ng/mL Normal 15-150 Compr [facility]; [facility] Work Phone: Comment on above: PATIENT NOT FASTINGP ERFORMED BY: DEACON [facility] Rlsbta6222 [address] RoadDublin [place] [id number] HGB A1C ([id number])Ordered By: S [employer] Sales Engineer on 09-19-2021 HbA1c (Bld) [Mass fraction] 5.2 % Normal 4.8-5.6 [facility]; [facility] Work Phone: Comment on above: . Prediabetes: 5.7 - 6.4 Diabetes: >6.4 Glycemic control for adults with diabetes: <7.0 PATIENT NOT FASTINGP ERFORMED BY: DEACON [facility] Hgismv8864 [address] RoadDublin [place] [id number] IRON ([id number])Ordered By: Syst [employer] Sales Engineer on 09-19-2021 Iron [Mass/Vol] 70 ug/dL Normal 27-159 [facility]; [facility] Work Phone: Comment on above: PATIENT NOT FASTINGP ERFORMED BY: DEACON [facility] Ahrvok1899 [address] RoadDublin [place] [id number] METABOLIC PANEL, COMPREHENSI VE ([id number])Ordered By: Food And Beverage Assistant on 09-19-2021 Albumin [Mass/Vol] 4.3 g/dL Normal 3.8-4.9 [facility]; [facility] Work Phone: Comment on above: PATIENT NOT FASTINGP ERFORMED BY: DEACON [facility] Yisdjt7951 [address] RoadDublin [place] [id number] Albumin/Globulin [Mass ratio] 2.4 {ratio} Abnormal 1.2-2.2 [facility]; [facility] Work Phone: Comment on above: PATIENT NOT FASTINGP ERFORMED BY: DEACON [facility] Jftzud7937 [address] RoadDublin [place] [id number] ALP [Catalytic activity/Vol] 111 U/L Normal 44-121 [facility]; [facility] Work Phone: Comment on above: PATIENT NOT FASTINGP ERFORMED BY: CB [facility] Xojmfs5803 [address] RoadDublin [place] [id number] ALT [Catalytic activity/Vol] 25 U/L Normal 0-32 [facility]; [facility] Work Phone: Comment on above: PATIENT NOT FASTINGP ERFORMED BY: CB [facility] Mgkyxo7633 [address] RoadDublin [place] [id number] AST [Catalytic activity/Vol] 21 U/L Normal 0-40 [facility]; [facility] Work Phone: Comment on above: PATIENT NOT FASTINGP ERFORMED BY: CB [facility] Qrbxqg3604 [address] RoadDublin [place] [id number] Bilirubin [Mass/Vol] 0.2 mg/dL Normal 0.0-1.2 Comp rehensive [facility] Medicine; [facility] Work Phone: Comment on above: PATIENT NOT FASTINGP ERFORMED BY: CB [facility] Dsgxlh3275 [address] RoadDublin [place] [id number] Calcium [Mass/Vol] 9.0 mg/dL Normal 8.7-10.2 [facility]; [facility] Work Phone: Comment on above: PATIENT NOT FASTINGP ERFORMED BY: CB [facility] Qkxobw4781 [address] RoadDublin [place] [id number] Chloride [Moles/Vol] 104 mmol/L Normal 96-106 Comp rehensive [facility] Medicine; [facility] Work Phone: Comment on above: PATIENT NOT FASTINGP ERFORMED BY: CB [facility] Ffrurs6286 [address] RoadDublin [place] [id number] CO2 [Moles/Vol] 22 mmol/L Normal 20-29 [facility]; [facility] Work Phone: Comment on above: PATIENT NOT FASTINGP ERFORMED BY: CB [facility] Ppfyea9420 [address] RoadDublin [place] [id number] Creatinine [Mass/Vol] 0.96 mg/dL Normal 0.57-1.00 Com prehensive [facility]; [facility] Work Phone: Comment on above: PATIENT NOT FASTINGP ERFORMED BY: DEACON Huerta6370 [facility] [id number] GFR/1.73 sq M.predicted among non-blacks MDRD (S/P/Bld) [Vol rate/Area] 70 mL/min/{1.73_m2} Normal Comprehensiv e Internal Medicine; [facility] Work Phone: Comment on above: PATIENT NOT FASTINGP ERFORMED BY: DEACON Rohan Huerta6370 [facility] [id number] Globulin (S) [Mass/Vol] 1.8 g/dL Normal 1.5-4.5 [facility]; [facility] Work Phone: Comment on above: PATIENT NOT FASTINGP ERFORMED BY: DEACON Rohan Huerta6370 [facility] [id number] Glucose [Mass/Vol] 78 mg/dL Normal 65-99 [facility] hensive [facility]; [facility] Work Phone: Comment on above: PATIENT NOT FASTINGP ERFORMED BY: DEACON Rohan Huerta[address] [facility] [id number] Potassium [Moles/Vol] 4.3 mmol/L Normal 3.5-5.2 [facility] prehensive Internal Medicine; [facility] Work Phone: Comment on above: PATIENT NOT FASTINGP ERFORMED BY: DEACON Rohan Wonglin[address] [facility] [id number] Protein [Mass/Vol] 6.1 g/dL Normal 6.0-8.5 [facility]; [facility] Work Phone: Comment on above: PATIENT NOT FASTINGP ERFORMED BY: DEACON [facility] Azcwot[address] [facility] [id number] Sodium [Moles/Vol] 138 mmol/L Normal 134-144 [facility]ale hensive [facility]; [facility] Work Phone: Comment on above: PATIENT NOT FASTINGP ERFORMED BY: DEACON [facility]emiss[facility] Lvdsdx[address] [facility] [id number] Urea nitrogen [Mass/Vol] 7 mg/dL Normal 6-24 [facility]; [facility] Work Phone: Comment on above: PATIENT NOT FASTINGP ERFORMED BY: DEACON Villafana Gzbegz[address] [facility] [id number] Urea nitrogen/Creatinine [Mass ratio] 7 mg/mg Abnormal 9-23 [facility]; [facility] Work Phone: Comment on above: PATIENT NOT FASTINGP ERFORMED BY: [facility] Zfdkvr6307 [facility] [id number] TSH (THYROID STIMULATING HOR SEE) ([id number])Ordered By: Food And Beverage Assistant on 09-19-2021 TSH Qn 1.430 {uIU/mL} Normal 0.450-4.50 0 [facility]; [facility] Work Phone: Comment on above: PATIENT NOT FASTINGP ERFORMED BY: PureBrandsmiss[facility] Xcqsau5510 [facility] [id number] BNTP ([id number])Ordered By: [employer] Sales Engineer on 07-08-2020 Natriuretic peptide B (Bld) [Mass/Vol] 17.5 pg/mL Normal 0.0-100.0 [facility]; [facility] Work Phone: Comment on above: PATIENT NOT FASTINGP ERFORMED BY: Lab[facility]6370 [facility] [id number] C-REACT PROT HIGH SENS(hsCRP ) ([id number])Ordered By: Food And Beverage Assistant on 07-08-2020 CRP High sensitivity method [Mass/Vol] 0.30 mg/L Normal 0.00-3.00 [facility]; [facility] Work Phone: Comment on above: Relative Risk for Fu ture Cardiovascular Event Low <1.00 Average 1.00 - 3.00 High >3.00 PATIENT NOT FASTINGP ERFORMED BY: Lab[facility]6370 [facility] [id number] CBC, Platelets & Auto Diff ( [id number])Ordered By: Food And Beverage Assistant on 07-08-2020 Basophils (Bld) [#/Vol] 0.0 {x10E3/uL} Normal 0.0-0.2 [facility]; [facility] Work Phone: Comment on above: PATIENT NOT FASTINGP ERFORMED BY: DEACON LabAlbert Huerta6370 [address]blin [place] [id number] Basophils (Bld) [#/Vol] 0.0 10*3/uL Normal 0.0-0.2 [facility]; [facility] Work Phone: Comment on above: PATIENT NOT FASTINGP ERFORMED BY: CB [facility] Qjivxh0702 [address] RoadDublin [place] [id number] Basophils/100 WBC (Bld) 0 % Normal [facility]; [facility] Work Phone: Comment on above: PATIENT NOT FASTINGP ERFORMED BY: LabLesia Kchmko5452 [address]o RoadWatauga Medical Centerin [place] [id number] Eosinophils (Bld) [#/Vol] 0.0 {x10E3/uL} Normal 0.0-0.4 [facility]; [facility] Work Phone: Comment on above: PATIENT NOT FASTINGP ERFORMED BY: DEACON LabLesia Hkczsh[address] [facility]in [place] [id number] Eosinophils (Bld) [#/Vol] 0.0 10*3/uL Normal 0.0-0.4 [facility]; [facility] Work Phone: Comment on above: PATIENT NOT FASTINGP ERFORMED BY: LabCo Cfmkav6753 [address]o RoadWatauga Medical Centerin [place] [id number] Eosinophils/100 WBC (Bld) 0 % Normal [facility]; [facility] Work Phone: Comment on above: PATIENT NOT FASTINGP ERFORMED BY: DEACON [facility] Pregye[address] [facility]in [place] [id number] Erythrocyte distribution width (RBC) [Ratio] 13.3 % Normal 11.7-15.4 [facility]; [facility] Work Phone: Comment on above: PATIENT NOT FASTINGP ERFORMED BY: DEACON [facility] Dkvusj8088 [address] RoadDublin [place] [id number] Hematocrit (Bld) [Volume fraction] 39.2 % Normal 34.0-46.6 [facility]; [facility] Work Phone: Comment on above: PATIENT NOT FASTINGP ERFORMED BY: CB [facility] Pyidrv7265 [address] RoadDublin [place] [id number] Hemoglobin (Bld) [Mass/Vol] 13.2 g/dL Normal 11.1-15.9 [facility]; [facility] Work Phone: Comment on above: PATIENT NOT FASTINGP ERFORMED BY: CB [facility] Yvatti3491 [address] RoadDublin [place] [id number] Immature granulocytes (Bld) [#/Vol] 0.1 {x10E3/uL} Normal 0.0-0.1 [facility]; [facility] Work Phone: Comment on above: PATIENT NOT FASTINGP ERFORMED BY: CB [facility] Guvpzh2826 [address] RoadDublin [place] [id number] Immature granulocytes (Bld) [#/Vol] 0.1 10*3/uL Normal 0.0-0.1 [facility]; [facility] Work Phone: Comment on above: PATIENT NOT FASTINGP ERFORMED BY: DEACON [facility] Kjjhez5467 [address] RoadDublin [place] [id number] Immature granulocytes/100 WBC (Bld) 1 % Normal [facility]; [facility] Work Phone: Comment on above: PATIENT NOT FASTINGP ERFORMED BY: CB [facility] Rthdon9485 [address] RoadDublin [place] [id number] Lymphocytes (Bld) [#/Vol] 2.8 {x10E3/uL} Normal 0.7-3.1 [facility]; [facility] Work Phone: Comment on above: PATIENT NOT FASTINGP ERFORMED BY: CB [facility] Xaztmj4044 [address] RoadDublin [place] [id number] Lymphocytes (Bld) [#/Vol] 2.8 10*3/uL Normal 0.7-3.1 [facility]; [facility] Work Phone: Comment on above: PATIENT NOT FASTINGP ERFORMED BY: DEACON LabCobonnie HuertaLsnbfz1218 [address] RoadDublin [place] [id number] Lymphocytes/100 WBC (Bld) 29 % Normal [facility]; [facility] Work Phone: Comment on above: PATIENT NOT FASTINGP ERFORMED BY: CB [facility] Cvhmah7238 [address] RoadDublin [place] [id number] MCH (RBC) [Entitic mass] 30.6 pg Normal 26.6-33.0 [facility]; [facility] Work Phone: Comment on above: PATIENT NOT FASTINGP ERFORMED BY: CB [facility] Mvmjey7253 [address] RoadDublin [place] [id number] MCHC (RBC) [Mass/Vol] 33.7 g/dL Normal 31.5-35.7 [facility] prehensive Internal Medicine; [facility] Work Phone: Comment on above: PATIENT NOT FASTINGP ERFORMED BY: DEACON [facility] Cedvul[address] [facility] HospitalDuin [place] [id number] MCV (RBC) [Entitic vol] 91 fL Normal 79-97 [facility]; [facility] Work Phone: Comment on above: PATIENT NOT FASTINGP ERFORMED BY: CB [facility] Pbacgn0[address] [facility] HospitalDuin [place] [id number] Monocytes (Bld) [#/Vol] 0.5 {x10E3/uL} Normal 0.1-0.9 [facility]; [facility] Work Phone: Comment on above: PATIENT NOT FASTINGP ERFORMED BY: CB [facility] Pyncbo6475 [address] RoadDublin [place] [id number] Monocytes (Bld) [#/Vol] 0.5 10*3/uL Normal 0.1-0.9 [facility]; [facility] Work Phone: Comment on above: PATIENT NOT FASTINGP ERFORMED BY: CB [facility] Xkftuq1970 [address] RoadDublin [place] [id number] Monocytes/100 WBC (Bld) 6 % Normal [facility]; [facility] Work Phone: Comment on above: PATIENT NOT FASTINGP ERFORMED BY: DEACON Huerta[address] Jenniferblin [place] [id number] Neutrophils (Bld) [#/Vol] 6.3 {x10E3/uL} Normal 1.4-7.0 [facility]; [facility] Work Phone: Comment on above: PATIENT NOT FASTINGP ERFORMED BY: DEACON Huerta6370 [address]bl[address] [place] [id number] Neutrophils (Bld) [#/Vol] 6.3 10*3/uL Normal 1.4-7.0 [facility]; [facility] Work Phone: Comment on above: PATIENT NOT FASTINGP ERFORMED BY: DEACON Torres[address] Jesus AlbertoWatauga Medical Centerin [place] [id number] Neutrophils/100 WBC (Bld) 64 % Normal [facility]; [facility] Work Phone: Comment on above: PATIENT NOT FASTINGP ERFORMED BY: DEACON Torres[address] Jesus AlbertoWatauga Medical Centerin [place] [id number] Platelets (Bld) [#/Vol] 188 {x10E3/uL} Normal 150-450 [facility]; [facility] Work Phone: Comment on above: PATIENT NOT FASTINGP ERFORMED BY: DEACON Huerta6370 [address] RoadWatauga Medical Centerin [place] [id number] Platelets (Bld) [#/Vol] 188 10*3/uL Normal 150-450 [facility]; [facility] Work Phone: Comment on above: PATIENT NOT FASTINGP ERFORMED BY: DEACON Huerta6[address]blin [place] [id number] RBC (Bld) [#/Vol] 4.31 {x10E6/uL} Normal 3.77-5.28 [facility]; [facility] Work Phone: Comment on above: PATIENT NOT FASTINGP ERFORMED BY: CB [facility] Bvabff6129 [address] RoadDublin [place] [id number] RBC (Bld) [#/Vol] 4.31 10*6/uL Normal 3.77-5.28 [facility] ehensive Internal Medicine; [facility] Work Phone: Comment on above: PATIENT NOT FASTINGP ERFORMED BY: CB [facility] Ptkbfc1704 [address] RoadDublin [place] [id number] WBC (Bld) [#/Vol] 9.7 {x10E3/uL} Normal 3.4-10.8 [facility] prehensive Internal Medicine; [facility] Work Phone: Comment on above: PATIENT NOT FASTINGP ERFORMED BY: CB [facility] Cbznfa4065 [address] RoadDublin [place] [id number] WBC (Bld) [#/Vol] 9.7 10*3/uL Normal 3.4-10.8 [facility] Internal Medicine; [facility] Work Phone: Comment on above: PATIENT NOT FASTINGP ERFORMED BY: CB [facility] Zmqzqm5923 [address] RoadDublin [place] [id number] D-Dimer ([id number])Ordered By: Ruy fernandez [employer] Sales Engineer on 07-08-2020 Fibrin D-dimer FEU (PPP) [Mass/Vol] 0.30 {mg/L_FEU} Normal 0.00-0.49 [facility]; [facility] Work Phone: Comment on above: According to the ass ay stranner's published package insert, anormal (<0.50 mg/L FEU) D-dimer result in conjunction with a non-highclinical probability assessment, excludes deep vein thrombosis (DVT)and pulmonary embolism (PE) with high sensitivity. .D-dimer values increase with age and this can make VTE exclusion ofan older population difficult. To address this, the [employer], based on best available evidence and recent guidelines,recommends that clinicians use age-adjusted D-dimer thresholds inpatients greater than 50 years of age with: a) a low probability ofPE who do not meet all Pulmonary Embolism Rule Out Criteria, orb) in those with intermediate probability of PE. The formula for anage-adjusted D-dimer cut-off is age/100. For example, a 60 year oldpatient would have an age-adjusted cut-off of 0.60 mg/L FEU and an80 year old 0.80 mg/L FEU. PATIENT NOT FASTINGP ERFORMED BY: CB [facility] Hnvybp7456 [address] RoadDublin [place] [id number] Metabolic Panel, Comprehensi ve ([id number])Ordered By: Food And Beverage Assistant on 07-08-2020 Albumin [Mass/Vol] 3.8 g/dL Normal 3.8-4.9 [facility] Internal Medicine; [facility] Work Phone: Comment on above: PATIENT NOT FASTINGP ERFORMED BY: CB [facility] Jhekeo4004 [address] RoadDublin [place] [id number] Albumin/Globulin [Mass ratio] 1.9 {ratio} Normal 1.2-2.2 [facility]; [facility] Work Phone: Comment on above: PATIENT NOT FASTINGP ERFORMED BY: CB [facility] Dtojfo8800 [address] RoadDublin [place] [id number] ALP [Catalytic activity/Vol] 92 [iU]/L Normal 39-117 [facility]; [facility] Work Phone: Comment on above: PATIENT NOT FASTINGP ERFORMED BY: CB [facility] Immuoj1922 [address] RoadDublin [place] [id number] ALP [Catalytic activity/Vol] 92 U/L Normal 39-117 [facility]; [facility] Work Phone: Comment on above: PATIENT NOT FASTINGP ERFORMED BY: CB [facility] Keokel9520 [address] RoadDublin [place] [id number] ALT [Catalytic activity/Vol] 22 [iU]/L Normal 0-32 [facility]; [facility] Work Phone: Comment on above: PATIENT NOT FASTINGP ERFORMED BY: CB [facility] Dtsbyz8989 [address] RoadDublin [place] [id number] ALT [Catalytic activity/Vol] 22 U/L Normal 0-32 [facility]; [facility] Work Phone: Comment on above: PATIENT NOT FASTINGP ERFORMED BY: CB [facility] Fktbnt0399 [address] RoadDublin [place] [id number] AST [Catalytic activity/Vol] 15 [iU]/L Normal 0-40 [facility]; [facility] Work Phone: Comment on above: PATIENT NOT FASTINGP ERFORMED BY: CB [facility] Uetjyg0546 [address] RoadDublin [place] [id number] AST [Catalytic activity/Vol] 15 U/L Normal 0-40 [facility]; [facility] Work Phone: Comment on above: PATIENT NOT FASTINGP ERFORMED BY: CB [facility] Ysuujv7689 [address] RoadDublin [place] [id number] Bilirubin [Mass/Vol] mg/dL Normal 0.0-1.2 Comp rehensive Internal Medicine; [facility] Work Phone: Comment on above: PATIENT NOT FASTINGP ERFORMED BY: CB [facility] Doopjk8394 [address] RoadDublin [place] [id number] Bilirubin [Mass/Vol] mg/dL Normal 0.0-1.2 Comp rehensive Internal Medicine; [facility] Work Phone: Comment on above: PATIENT NOT FASTINGP ERFORMED BY: CB [facility] Dgqekg4503 [address] RoadDublin [place] [id number] Calcium [Mass/Vol] 8.4 mg/dL Abnormal 8.7-10.2 [facility] Internal [facility]; [facility] Work Phone: Comment on above: PATIENT NOT FASTINGP ERFORMED BY: CB [facility] Sckgol8568 [address] RoadDublin [place] [id number] Chloride [Moles/Vol] 108 mmol/L Abnormal 96-106 Comp rehensive Internal Medicine; [facility] Work Phone: Comment on above: PATIENT NOT FASTINGP ERFORMED BY: CB [facility] Ibmnye0384 [address] RoadDublin [place] [id number] CO2 [Moles/Vol] 23 mmol/L Normal 20-[address] [facility] [facility]; [facility] Work Phone: Comment on above: PATIENT NOT FASTINGP ERFORMED BY: DEACON [facility] Mwnext4311 [address] RoadDublin [place] [id number] Creatinine [Mass/Vol] 0.86 mg/dL Normal 0.57-1.00 [facility] prehensive Internal Medicine; Comprehensive Internal Medicine Work Phone: Comment on above: PATIENT NOT FASTINGP ERFORMED BY: CB [facility] Axljnp56[address] RoadDublin [place] [id number] GFR/1.73 sq M predicted among blacks CKD-EPI (S/P/Bld) [Vol rate/Area] 90 mL/min/1.73 Normal [facility]; [facility] Work Phone: Comment on above: PATIENT NOT FASTINGP ERFORMED BY: CB [facility] Xselsg17[address]Dublin [place] [id number] GFR/1.73 sq M predicted among non-blacks CKD-EPI (S/P/Bld) [Vol rate/Area] 78 mL/min/1.73 Normal [facility]; [facility] Work Phone: Comment on above: PATIENT NOT FASTINGP ERFORMED BY: CB [facility] Rkagly7144 [address] RoadDublin [place] [id number] Globulin (S) [Mass/Vol] 2.0 g/dL Normal 1.5-4.5 [facility]; [facility] Work Phone: Comment on above: PATIENT NOT FASTINGP ERFORMED BY: CB [facility] Vmcexd3422 [address] RoadDublin [place] [id number] Glucose [Mass/Vol] 87 mg/dL Normal 65-99 [facility] Internal Medicine; [facility] Work Phone: Comment on above: PATIENT NOT FASTINGP ERFORMED BY: CB [facility] Liairg4787 [address] RoadDublin [place] [id number] Potassium [Moles/Vol] 3.9 mmol/L Normal 3.5-5.2 [facility] prehensive Internal Medicine; [facility] Work Phone: Comment on above: PATIENT NOT FASTINGP ERFORMED BY: CB [facility] Jpgogf1030 [facility] [id number] Protein [Mass/Vol] 5.8 g/dL Abnormal 6.0-8.5 [facility] Internal Medicine; [facility] Work Phone: Comment on above: PATIENT NOT FASTINGP ERFORMED BY: [facility] [id number] Sodium [Moles/Vol] 144 mmol/L Normal 134-144 [facility] Internal Medicine; [facility] Work Phone: Comment on above: PATIENT NOT FASTINGP ERFORMED BY: [facility] [id number] Urea nitrogen [Mass/Vol] 12 mg/dL Normal 6-24 [facility]; [facility] Work Phone: Comment on above: PATIENT NOT FASTINGP ERFORMED BY: [facility] [id number] Urea nitrogen/Creatinine [Mass ratio] 14 mg/mg Normal 9-23 [facility]; [facility] Work Phone: Comment on above: PATIENT NOT FASTINGP ERFORMED BY: [facility] [id number] TSH ([id number])Ordered By: HAM-ITe Team [employer] Sales Engineer on 07-08-2020 TSH Qn 2.350 {uIU/mL} Normal 0.450-4.50 0 [facility]; [facility] Work Phone: Comment on above: PATIENT NOT FASTINGP ERFORMED BY: [facility] [id number] 2018 Novel Coronavirus (COVI D-19), JOHN ([id number])Ordered By: Food And Beverage Assistant on 02-29-20202018 Novel Coronavirus (COVID-19), JOHN ([id number]) Not Detected Normal [facility] Work Phone: Comment on above: This nucleic acid am plification test was developed and its performancecharacteristics determined by [employer]. Nucleic acidamplification tests include PCR and TMA. This test has not been FDAcleared or approved. This test has been authorized by FDA under anEmergency Use Authorization (EUA). This test is only authorized forthe duration of time the declaration that circumstances existjustifying the authorization of the emergency use of in vitrodiagnostic tests for detection of SARS-CoV-2 virus and/or diagnosisof COVID-19 infection under section 564(b)(1) of the Act, 21 U.S.C.360bbb-3(b) (1), unless the authorization is terminated or revokedsooner.When diagnostic testing is negative, the possibility of a falsenegative result should be considered in the context of a patient'srecent exposures and the presence of clinical signs and symptomsconsistent with COVID-19. An individual without symptoms of COVID-19and who is not shedding SARS-CoV-2 virus would expect to have anegative (not detected) result in this assay. PATIENT NOT FASTINGP ERFORMED BY: [facility] LCI3689 [facility] [id number] 2018 Novel Coronavirus (COVID-19), JOHN ([id number]) Not detected Normal [facility]; [facility] Work Phone: Comment on above: This nucleic acid am plification test was developed and its performancecharacteristics determined by [employer]. Nucleic acidamplification tests include PCR and TMA. This test has not been FDAcleared or approved. This test has been authorized by FDA under anEmergency Use Authorization (EUA). This test is only authorized forthe duration of time the declaration that circumstances existjustifying the authorization of the emergency use of in vitrodiagnostic tests for detection of SARS-CoV-2 virus and/or diagnosisof COVID-19 infection under section 564(b)(1) of the Act, 21 U.S.C.360bbb-3(b) (1), unless the authorization is terminated or revokedsooner.When diagnostic testing is negative, the possibility of a falsenegative result should be considered in the context of a patient'srecent exposures and the presence of clinical signs and symptomsconsistent with COVID-19. An individual without symptoms of COVID-19and who is not shedding SARS-CoV-2 virus would expect to have anegative (not detected) result in this assay. PATIENT NOT FASTINGP ERFORMED BY: BRITT [employer] WWC[address] DriveRTP [place] [id number] 2019 Novel Coronavirus (COVI D-19), JOHN ([id number])Ordered By: Food And Beverage Assistant on 10-30-20192018 Novel Coronavirus (COVID-19), JOHN ([id number]) Not Detected Normal [facility] Work Phone: Comment on above: Testing was performe d using the Aptima SARS-CoV-2 assay.This test was developed and its performance characteristics determinedby [employer]. This test has not been FDA cleared orapproved. This test has been authorized by FDA under an Emergency UseAuthorization (EUA). This test is only authorized for the duration oftime the declaration that circumstances exist justifying theauthorization of the emergency use of in vitro diagnostic tests fordetection of SARS-CoV-2 virus and/or diagnosis of COVID-19 infectionunder section 564(b)(1) of the Act, 21 U.S.C. 360bbb-3(b)(1), unlessthe authorization is terminated or revoked sooner.When diagnostic testing is negative, the possibility of a falsenegative result should be considered in the context of a patient'srecent exposures and the presence of clinical signs and symptomsconsistent with COVID-19. An individual without symptoms of COVID-19and who is not shedding SARS-CoV-2 virus would expect to have anegative (not detected) result in this assay. PERFORMED BY: =[employer] [address] [id number] 2019 Novel Coronavirus (COVID-19), JOHN ([id number]) Not detected Normal [facility]; [facility] Work Phone: Comment on above: Testing was performe d using the Aptima SARS-CoV-2 assay.This test was developed and its performance characteristics determinedby [employer]. This test has not been FDA cleared orapproved. This test has been authorized by FDA under an Emergency UseAuthorization (EUA). This test is only authorized for the duration oftime the declaration that circumstances exist justifying theauthorization of the emergency use of in vitro diagnostic tests fordetection of SARS-CoV-2 virus and/or diagnosis of COVID-19 infectionunder section 564(b)(1) of the Act, 21 U.S.C. 360bbb-3(b)(1), unlessthe authorization is terminated or revoked sooner.When diagnostic testing is negative, the possibility of a falsenegative result should be considered in the context of a patient'srecent exposures and the presence of clinical signs and symptomsconsistent with COVID-19. An individual without symptoms of COVID-19and who is not shedding SARS-CoV-2 virus would expect to have anegative (not detected) result in this assay. PERFORMED BY: =[employer] [address] [place] [id number] CBC W/AUTO DIFF WBC ([id number])O rdered By: Food And Beverage Assistant on 10-19-2019 Basophils (Bld) [#/Vol] 0.0 {x10E3/uL} Normal 0.0-0.2 [facility] Work Phone: Comment on above: PATIENT WAS FASTINGP ERFORMED BY: [facility] [id number] Basophils (Bld) [#/Vol] 0.0 10*3/uL Normal 0.0-0.2 [facility]; [facility] Work Phone: Comment on above: PATIENT WAS FASTINGP ERFORMED BY: [facility]6370 Agile SystemsThe [facility] [id number] Basophils/100 WBC (Bld) 1 % Normal [facility] Work Phone: Comment on above: PATIENT WAS FASTINGP ERFORMED BY: [employer] CanadaThe Outer Banks Hospital [id number] Eosinophils (Bld) [#/Vol] 0.1 {x10E3/uL} Normal 0.0-0.4 [facility] Work Phone: Comment on above: PATIENT WAS FASTINGP ERFORMED BY: [employer] [facility] [id number] Eosinophils (Bld) [#/Vol] 0.1 10*3/uL Normal 0.0-0.4 [facility]; [facility] Work Phone: Comment on above: PATIENT WAS FASTINGP ERFORMED BY: [facility] Jbkqnu3678 [facility] [id number] Eosinophils/100 WBC (Bld) 2 % Normal [facility] Work Phone: Comment on above: PATIENT WAS FASTINGP ERFORMED BY: [facility] [id number] Erythrocyte distribution width (RBC) [Ratio] 12.5 % Normal 11.7-15.4 [facility] Work Phone: Comment on above: PATIENT WAS FASTINGP ERFORMED BY: [place] 3686070 [facility] [id number] Hematocrit (Bld) [Volume fraction] 44.0 % Normal 34.0-46.6 [facility] Work Phone: Comment on above: PATIENT WAS FASTINGP ERFORMED BY: [facility]6370 [facility] [id number] Hemoglobin (Bld) [Mass/Vol] 14.4 g/dL Normal 11.1-15.9 [facility] Work Phone: Comment on above: PATIENT WAS FASTINGP ERFORMED BY: LabJustin Ville 9273770 [facility] [id number] Immature granulocytes (Bld) [#/Vol] 0.0 {x10E3/uL} Normal 0.0-0.1 [facility] Work Phone: Comment on above: PATIENT WAS FASTINGP ERFORMED BY: [facility] [facility] [id number] Immature granulocytes (Bld) [#/Vol] 0.0 10*3/uL Normal 0.0-0.1 [facility]; [facility] Work Phone: Comment on above: PATIENT WAS FASTINGP ERFORMED BY: DEACON [facility] Akvqam[address] [facility] Hospitalblin [place] [id number] Immature granulocytes/100 WBC (Bld) 0 % Normal [facility] Work Phone: Comment on above: PATIENT WAS FASTINGP ERFORMED BY: DEACON [facility] Rwfzqx[address] [facility]in [place] [id number] Lymphocytes (Bld) [#/Vol] 1.3 {x10E3/uL} Normal 0.7-3.1 [facility] Work Phone: Comment on above: PATIENT WAS FASTINGP ERFORMED BY: [facility]6370 [address] RoadWatauga Medical Centerin [place] [id number] Lymphocytes (Bld) [#/Vol] 1.3 10*3/uL Normal 0.7-3.1 [facility]; [facility] Work Phone: Comment on above: PATIENT WAS FASTINGP ERFORMED BY: DEACON [facility] Sjhyrm[address] [facility] [id number] Lymphocytes/100 WBC (Bld) 22 % Normal [facility] Work Phone: Comment on above: PATIENT WAS FASTINGP ERFORMED BY: DEACON [facility] [facility] [id number] MCH (RBC) [Entitic mass] 29.6 pg Normal 26.6-33.0 [facility] Internal Medicine Work Phone: Comment on above: PATIENT WAS FASTINGP ERFORMED BY: [facility] [facility] [id number] MCHC (RBC) [Mass/Vol] 32.7 g/dL Normal 31.5-35.7 [facility] Internal Medicine Work Phone: Comment on above: PATIENT WAS FASTINGP ERFORMED BY: [facility] [facility] Centerin [place] [id number] MCV (RBC) [Entitic vol] 91 fL Normal 79-97 [facility] Work Phone: Comment on above: PATIENT WAS FASTINGP ERFORMED BY: [facility]6[address]Dublin [place] [id number] Monocytes (Bld) [#/Vol] 0.4 {x10E3/uL} Normal 0.1-0.9 [facility] Work Phone: Comment on above: PATIENT WAS FASTINGP ERFORMED BY: DEACON LabAlbert WongNsbuwx5951 [address] RoadDublin [place] [id number] Monocytes (Bld) [#/Vol] 0.4 10*3/uL Normal 0.1-0.9 [facility]; [facility] Work Phone: Comment on above: PATIENT WAS FASTINGP ERFORMED BY: DEACON LabAlbert WongTxdhxx8907 [address] RoadDublin [place] [id number] Monocytes/100 WBC (Bld) 8 % Normal [facility] Work Phone: Comment on above: PATIENT WAS FASTINGP ERFORMED BY: DEACON Huerta6370 [address] RoadDuin [place] [id number] Neutrophils (Bld) [#/Vol] 3.9 {x10E3/uL} Normal 1.4-7.0 [facility] Work Phone: Comment on above: PATIENT WAS FASTINGP ERFORMED BY: DEACON Wonglin6370 [address]o RoadWatauga Medical Centerin [place] [id number] Neutrophils (Bld) [#/Vol] 3.9 10*3/uL Normal 1.4-7.0 [facility]; [facility] Work Phone: Comment on above: PATIENT WAS FASTINGP ERFORMED BY: DEACON LabMdbonnie Lfmxwk2676 [address] RoadDublin [place] [id number] Neutrophils/100 WBC (Bld) 67 % Normal [facility] Work Phone: Comment on above: PATIENT WAS FASTINGP ERFORMED BY: DEACON LabCobonnie WongQegodr5814 [address] RoadDublin [place] [id number] Platelets (Bld) [#/Vol] 242 {x10E3/uL} Normal 150-450 [facility] Work Phone: Comment on above: PATIENT WAS FASTINGP ERFORMED BY: DEACON LabCo Dubkhj5674 [address] RoadDublin [place] [id number] Platelets (Bld) [#/Vol] 242 10*3/uL Normal 150-450 [facility]; [facility] Work Phone: Comment on above: PATIENT WAS FASTINGP ERFORMED BY: DEACON [facility] Xfcsfe2355 [address] RoadDublin [place] [id number] RBC (Bld) [#/Vol] 4.86 {x10E6/uL} Normal 3.77-5.28 [facility] Internal Medicine Work Phone: Comment on above: PATIENT WAS FASTINGP ERFORMED BY: CB [facility] Mozsqj6463 [address] RoadDublin [place] [id number] RBC (Bld) [#/Vol] 4.86 10*6/uL Normal 3.77-5.28 [facility] Internal Medicine; [facility] Work Phone: Comment on above: PATIENT WAS FASTINGP ERFORMED BY: [facility] Nvujmh4468 [address] RoadDublin [place] [id number] WBC (Bld) [#/Vol] 5.8 {x10E3/uL} Normal 3.4-10.8 [facility] Internal Medicine Work Phone: Comment on above: PATIENT WAS FASTINGP ERFORMED BY: [facility] Hiskxp7801 [address] RoadDublin [place] [id number] WBC (Bld) [#/Vol] 5.8 10*3/uL Normal 3.4-10.8 [facility] Internal Medicine; [facility] Work Phone: Comment on above: PATIENT WAS FASTINGP ERFORMED BY: CB [facility] Zwdsnl8596 [address] RoadDublin [place] [id number] LIPID PANEL ([id number])Ordered B y: Food And Beverage Assistant on 10-19-2019 Cholesterol [Mass/Vol] 141 mg/dL Normal 100-199 [facility] Work Phone: Comment on above: PATIENT WAS FASTINGP ERFORMED BY: CB [facility] Ynmcrl6692 [address] RoadDublin [place] [id number] Cholesterol in HDL [Mass/Vol] 65 mg/dL Normal [facility] Work Phone: Comment on above: PATIENT WAS FASTINGP ERFORMED BY: DEACON StephanieAlbert Nzigla1918 [facility] [id number] Cholesterol in LDL [Mass/Vol] 52 mg/dL Normal 0-99 [facility] Work Phone: Comment on above: PATIENT WAS FASTINGP ERFORMED BY: DEACON Wonglin6370 [facility] [id number] Cholesterol in LDL/Cholesterol in HDL [Mass ratio] 0.8 {ratio} Normal 0.0-3.2 [facility] Work Phone: Comment on above: LDL/HDL Ratio Men Wo men 1/2 Avg.Risk 1.0 1.5 Avg.Risk 3.6 3.2 2X Avg.Risk 6.2 5.0 3X Avg.Risk 8.0 6.1 PATIENT WAS FASTINGP ERFORMED BY: DEACON Wonglin6370 [facility] [id number] Cholesterol in VLDL [Mass/Vol] 24 mg/dL Normal 5-40 [facility] Work Phone: Comment on above: PATIENT WAS FASTINGP ERFORMED BY: DEACON StephanieAlbert WongWtbzcv2264 [facility] [id number] Triglyceride [Mass/Vol] 122 mg/dL Normal 0-149 [facility] Work Phone: Comment on above: PATIENT WAS FASTINGP ERFORMED BY: DEACON Wonglin6370 [facility] [id number] METABOLIC PANEL, COMPREHENSI VE (10031)Ordered By: Food And Beverage Assistant on 10-19-2019 Albumin [Mass/Vol] 4.8 g/dL Normal 3.8-4.9 [facility] Internal Medicine Work Phone: Comment on above: PATIENT WAS FASTINGP ERFORMED BY: DEACON StephanieAlbert WongBmldau3981 [facility] [id number] Albumin/Globulin [Mass ratio] 2.0 {ratio} Normal 1.2-2.2 [facility] Work Phone: Comment on above: PATIENT WAS FASTINGP ERFORMED BY: DEACON [facility] Ketxxu3307 [address] RoadDublin [place] [id number] ALP [Catalytic activity/Vol] 119 [iU]/L Abnormal 39-117 [facility] Work Phone: Comment on above: PATIENT WAS FASTINGP ERFORMED BY: DEACON [facility] Nbahwt6038 [address] RoadDublin [place] [id number] ALP [Catalytic activity/Vol] 119 U/L Abnormal 39-117 [facility]; [facility] Work Phone: Comment on above: PATIENT WAS FASTINGP ERFORMED BY: DEACON [facility] Brnvaz6140 [address] RoadDublin [place] [id number] ALT [Catalytic activity/Vol] 15 [iU]/L Normal 0-32 [facility] Work Phone: Comment on above: PATIENT WAS FASTINGP ERFORMED BY: DEACON LabCobonnie WongLdkzxw7133 [address] RoadDublin [place] [id number] ALT [Catalytic activity/Vol] 15 U/L Normal 0-32 [facility]; [facility] Work Phone: Comment on above: PATIENT WAS FASTINGP ERFORMED BY: DEACON LabCobonnie WongDezadm2518 [address] RoadDublin [place] [id number] AST [Catalytic activity/Vol] 20 [iU]/L Normal 0-40 [facility] Work Phone: Comment on above: PATIENT WAS FASTINGP ERFORMED BY: DEACON [facility] Ceuvyf7642 [address] RoadDublin [place] [id number] AST [Catalytic activity/Vol] 20 U/L Normal 0-40 [facility]; [facility] Work Phone: Comment on above: PATIENT WAS FASTINGP ERFORMED BY: DEACON [facility] Hhveib8535 [address] RoadDublin [place] [id number] Bilirubin [Mass/Vol] 0.2 mg/dL Normal 0.0-1.2 Comp [facility] Internal Medicine Work Phone: Comment on above: PATIENT WAS FASTINGP ERFORMED BY: DEACON [facility] Qinupj4692 [address] RoadDublin [place] [id number] Calcium [Mass/Vol] 9.4 mg/dL Normal 8.7-10.2 [facility] Internal Medicine Work Phone: Comment on above: PATIENT WAS FASTINGP ERFORMED BY: [facility] Ftkihk6016 [address] RoadDublin [place] [id number] Chloride [Moles/Vol] 110 mmol/L Abnormal 96-106 Comp [facility]erens[facility] Internal Medicine Work Phone: Comment on above: PATIENT WAS FASTINGP ERFORMED BY: [facility] Swehoh7385 [address] RoadDublin [place] [id number] CO2 [Moles/Vol] 22 mmol/L Normal 20-29 [facility] Internal Medicine Work Phone: Comment on above: PATIENT WAS FASTINGP ERFORMED BY: [facility] Yieziu5344 [address]Dublin [place] [id number] Creatinine [Mass/Vol] 1.09 mg/dL Abnormal 0.57-1.00 [facility] Internal Medicine Work Phone: Comment on above: PATIENT WAS FASTINGP ERFORMED BY: [facility] Kisyqp7031 [address] RoadDublin [place] [id number] GFR/1.73 sq M predicted among blacks CKD-EPI (S/P/Bld) [Vol rate/Area] 67 mL/min/1.73 Normal [facility] Work Phone: Comment on above: PATIENT WAS FASTINGP ERFORMED BY: [facility] Lrriob5551 [address] RoadDublin [place] [id number] GFR/1.73 sq M predicted among non-blacks CKD-EPI (S/P/Bld) [Vol rate/Area] 59 mL/min/1.73 Abnormal [facility] Work Phone: Comment on above: PATIENT WAS FASTINGP ERFORMED BY: [facility] Nsjzaf2055 [address]Dublin [place] [id number] Globulin (S) [Mass/Vol] 2.4 g/dL Normal 1.5-4.5 [facility] Work Phone: Comment on above: PATIENT WAS FASTINGP ERFORMED BY: DEACON [facility] Gfskfd0176 [address] RoadDublin [place] [id number] Glucose [Mass/Vol] 109 mg/dL Abnormal 65-99 [facility] Internal Medicine Work Phone: Comment on above: PATIENT WAS FASTINGP ERFORMED BY: DEACON LabCobonnie WongBayaeg7015 [address] RoadDublin [place] [id number] Potassium [Moles/Vol] 4.3 mmol/L Normal 3.5-5.2 [facility] Internal Medicine Work Phone: Comment on above: PATIENT WAS FASTINGP ERFORMED BY: DEACON [facility] Iormgj2375 [address] RoadDublin [place] [id number] Protein [Mass/Vol] 7.2 g/dL Normal 6.0-8.5 [facility] Internal Medicine Work Phone: Comment on above: PATIENT WAS FASTINGP ERFORMED BY: DEACON LabAlbert WongRunlsm9896 [address] RoadDublin [place] [id number] Sodium [Moles/Vol] 145 mmol/L Abnormal 134-144 [facility] Internal Medicine Work Phone: Comment on above: PATIENT WAS FASTINGP ERFORMED BY: DEACON LabCobonnie WongAkhrft1069 [address] RoadDublin [place] [id number] Urea nitrogen [Mass/Vol] 9 mg/dL Normal 6-24 [facility] Internal Medicine Work Phone: Comment on above: PATIENT WAS FASTINGP ERFORMED BY: DEACON [facility] Dvqfpm1218 [address] RoadDublin [place] [id number] Urea nitrogen/Creatinine [Mass ratio] 8 mg/mg Abnormal 9-23 [facility] Internal Medicine Work Phone: Comment on above: PATIENT WAS FASTINGP ERFORMED BY: DEACON [facility] Zkvnbm0391 [address] RoadDublin [place] [id number] PT (Prothrobim Time) ([id number]) Ordered By: Food And Beverage Assistant on 10-19-2019 INR Coag (PPP) [Relative time] 1.0 {INR} Normal 0.8-1.2 [facility] Internal Medicine Work Phone: Comment on above: Reference interval i s for non-anticoagulated patients. . Suggested INR therapeutic range for Vitamin K antagonist therapy: Standard Dose (moderate intensity therapeutic range): 2.0 - 3.0 Higher intensity therapeutic range 2.5 - 3.5 PATIENT WAS FASTINGP ERFORMED BY: PureBrandsSaint [facility] Wosgrg4446 [address] RoadDublin [place] [id number] PT Coag (PPP) [Time] 10.3 {sec} Normal 9.1-12.0 [facility] rehensive Internal Medicine Work Phone: Comment on above: PATIENT WAS FASTINGP ERFORMED BY: Lab[facility] Erzxti7011 [address] RoadDublin [place] [id number] PT Coag (PPP) [Time] 10.3 s Normal 9.1-12.0 [facility] rehensive Internal Medicine; [facility] Work Phone: Comment on above: PATIENT WAS FASTINGP ERFORMED BY: PureBrandsSaint [facility] Hospital Vhknih4501 [address] RoadDublin [place] [id number] PTT (Activated Partial Throm boplastin Time) ([id number])Ordered By: Food And Beverage Assistant on 10-19-2019 aPTT Coag (PPP) [Time] 27 {sec} Normal 24-33 [facility] Work Phone: Comment on above: This test has not be en validated for monitoring unfractionated heparintherapy. aPTT-based therapeutic ranges for unfractionated heparintherapy have not been established. For general guidelines onHeparin monitoring, refer to the [facility] Directory of Services. PATIENT WAS FASTINGP ERFORMED BY: PureBrandsSaint [facility] Ldopac8465 [address] RoadDublin [place] [id number] aPTT Coag (PPP) [Time] 27 s Normal 24-33 [facility]; [facility] Work Phone: Comment on above: This test has not be en validated for monitoring unfractionated heparintherapy. aPTT-based therapeutic ranges for unfractionated heparintherapy have not been established. For general guidelines onHeparin monitoring, refer to the [facility]Saint [facility] Directory of Services. PATIENT WAS FASTINGP ERFORMED BY: LabSaint Alexius [facility]ublin [place] [id number] TSH ([id number])Ordered By: Tri salazar [employer] Sales Engineer on 10-19-2019 TSH Qn 2.700 {uIU/mL} Normal 0.450-4.50 0 [facility] Work Phone: Comment on above: PATIENT WAS FASTINGP ERFORMED BY: DEACON [facility] [id number] [facility] [id number] Operation-Procedureon 2016 Operation-Procedure [address] [id number] JOSIE LANDIS [facility] [id number] 1965DATE 02/26/2017OPERATIVE REPORT / PROCEDURE NOTESURGEON AMARJIT OCONNORMPREOPERATIVE DIAGNOSES1. Chronic hallux rigidus, right foot.2. Deformed great toe, right foot.3. 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 Cheilectomy at the 1st metatarsal, right foot.2. Partial excision of phalanx with excision of fracture fragment at theproximal phalanx of the right great toe.3. Modified synovectomy of the 1st metatarsophalangeal joint, right foot.4. Peripheral neurolysis of the medial dorsal terminal extension of thesuperficial peroneal nerve, right foot.POSTOPERATIVE DIAGNOSES1. Chronic hallux rigidus, right foot.2. Deformed great toe, right foot.3. 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 Peripheral nerve entrapment of the dorsal medial terminal branch of thesuperficial peroneal nerve, right foot.5. Plus significant perineural fibrosis.ANESTHESIAMAC.HE MOSTASISPneumatic ankle cuff, right.ESTIMATED BLOOD LOSSApproximately 3 cc.COMPLICATIONSNone.POST OPERATIVE CONDITIONThe patient was stable with all vitals within normal postoperative limits.PREOPERATIVE INDICATIONSMs. Sabiha is a 51-year-old white female presented to my officecomplaining of chronically painful 1st metatarsophalangeal joint of the rightfoot. She notes this condition has been present for several years and hadrecently gotten significantly worse. Clinical and radiographic evaluationrevealed a significant hallux rigidus with severely limited range of motionand deformed dorsal aspect of the base of the proximal phalanx with possiblefracture fragment. Significant degenerative changes were noted at the 1st MPJwith chronic synovitis and peripheral nerve entrapment of the dorsal medialextension of the superficial peroneal nerve. At this point, possible furtherpalliative and surgical corrections were reviewed with the patient. Discussedpossible risks/complications/posto p course and prognoses of the variousmethods utilized in fixing hallux rigidus conditions. The patient did electto undergo the cheilectomy procedure and was aware of the possible need foreither future procedures with significant progression of the deformity. Sheunderstood these conditions and elected to undergo the procedures andanesthesia as planned.Her preop anesthesia consultation, routine H and P, and blood workup showed nocontraindications to the procedures or anesthesia as planned.DESCRIPTION OF PROCEDUREMs. Landis was brought to the operating room, placed on the OR table insupine position. IV sedation was achieved, and the right surgical site wasanesthetized utilizing a combination of 0.5% Marcaine plain and 2% lidocainewith epinephrine 1:100,000 in a Curtis block fashion over the 1st ray of theright foot. Pneumatic ankle cuff was placed about the right ankle andinflated to approximately 250 mmHg at time of procedure. The right foot andankle were then prepped and draped in the usual aseptic technique.We initially turned our attention to the 1st MPJ of the right foot whereutilizing a 15 blade a 4.5 cm to 5 cm linear incision was made medial to theextensor hallucis longus tendon. The incision was deepened utilizing sharptechnique, maintaining strict hemostasis with the electrocautery until thejoint capsule was visualized. At this point, the incision was carriedmedially until the dorsal medial terminal extension of the superficialperoneal nerve was identified. The nerve was entrapped in significantperineural fibrosis. A peripheral neurolysis over the entire length of theincision was done. Upon completion, the nerve was moved plantarlyapproximately 0.5 cm and re-impacted into subcutaneous fat. We then turnedour attention to the joint capsule where a dorsal linear capsulotomy wasperformed. Capsular structures were meticulously dissected from the head ofthe 1st metatarsal delivering the hypertrophic dorsal osteophytes and medialeminence into the surgical site. At this point, utilizing a sagittal saw, theentire dorsal osteophytic ledge was resected in toto. The cut was made for amild distal angulation plantarly to allow for excursion of the hallux. Atthis point, we turned our attention to the medial aspect where a moderateincreased hypertrophic medial condyle was resected. Following resection ofthese 2 sections of bone, the remaining osteochondral area as well as theplantar medial edge was resected to normal contour utilizing a double-actionbone rongeur. It should be noted that there was significant peripheraldegenerative changes in the chondral cartilage, but the central area wasreasonably intact. The wound was then copiously flushed with normal salinecontaining gentamicin sulfate 80 mg per 500 cc. We then turned our attentionto the joint capsule where a dorsal medial and lateral modified synovectomywas performed. Hypertrophic/redundant capsule was resected. This was sent tothe lab for pathologic diagnosis. The wound was then copiously flushed withnormal saline containing gentamicin sulfate 80 mg per 500 cc.We then turned our attention to the great toe where utilizing a 15 blade adorsal linear capsulotomy was taken distally to approximately the mid shaft ofthe proximal phalanx. Synovial and capsular tissue were then meticulouslydissected from the base of the proximal phalanx. A loose fragment was notedat the lateral aspect of the base. At this point, utilizing the double-actionbone rongeurs all hypertrophic bone was completely resected from the dorsalmedial and lateral aspect of the base of the proximal phalanx. It should benoted that similar cartilage damage was noted as seen on the 1st metatarsalhead. Upon inspection it should be noted that at this point in the operatingroom the hallux was able to dorsiflex to approximately 90 degrees without anysignificant obstruction. The wound was then copiously flushed with normalsaline as above. At this point, the synovial capsule of both sites wascoapted and maintained utilizing 3-0 Vicryl continuous running-type suture.Further deep closure was accomplished utilizing 3-0 Vicryl [id number] suture. The skin was then coapted and maintained utilizing 4-0 nyloncontinuous lock-type running suture.Upon completion of all procedures, the pneumatic cuff was released on theright ankle and there was noted to be good capillary filling timepostoperatively. A postoperative injection of Hexadrol phosphate 4 mg/cc wasthen instilled into the 1st MPJ at the sesamoid apparatus. Sterile Adapticgauze and a dry sterile Hercules compression-type dressing was then applied tothe right surgical site.Ms. Landis tolerated all procedures and anesthesia well with thepostoperative recovery in stable condition with all vital signs within normallimits. She will be released when stable following explanation of allmedications and instructions for outpatient followup with my offices in 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 HW Gross Description The specimen received in formalin is a yellow-white fragment measuring 1.6 x 0.8 x 0.3 cm. Serially sectioned. Totally submitted in one cassette. DS;lat (YOLA/lt) Electronically Signed By Rivera Shen MD , Pathologist (Case signed 03/02/2017) [facility] VISUAL FIELD 30-2 OU (BOTH E YES) [facility] Vital Signs Date Time Vital Sign Value Performing Clinician Facility 11-24-2024 09:04-0400 Body height 170.[address] Solis Cool DO Work Phone: [facility] 11-24-2024 09:04-0400 Body mass index (BMI) [Ratio] 28.1 kg/m2 Dr. Solis Cool DO Work Phone: [facility] 11-24-2024 09:04-0400 Body weight 81.[address] Solis Cool DO Work Phone: [facility] 11-24-2024 09:04-0400 Diastolic blood pressure 86 mm[Hg] Dr. Solis Cool DO Work Phone: [facility] 11-24-2024 09:04-0400 Heart rate 71 /min Dr. Solis Cool DO Work Phone: [facility] 11-24-2024 09:04-0400 Respiratory rate 18 /min Dr. Solis Cool DO Work Phone: [facility] 11-24-2024 09:04-0400 SaO2% (BldA) [Mass fraction] 95 % Dr. Solis Cool DO Work Phone: [facility] 11-24-2024 09:04-0400 Systolic blood pressure 134 mm[Hg] Dr. Solis Cool DO Work Phone: [facility] 01-28-2024 13:45-0400 Body height 170.2 cm Tania Bonilla MD Work Phone: [facility] 01-28-2024 13:45-0400 Body mass index (BMI) [Ratio] 28.82 kg/m2 Tania Bonilla MD Work Phone: [facility] 01-28-2024 13:45-0400 Body weight 83.46 kg Tania Bonilla MD Work Phone: [facility] 01-28-2024 13:45-0400 Diastolic blood pressure 72 mm[Hg] Tania Bonilla MD Work Phone: [facility] 01-28-2024 13:45-0400 Heart rate 80 /min Tania Bonilla MD Work Phone: [facility] 01-28-2024 13:45-0400 Respiratory rate 20 /min Tania Bonilla MD Work Phone: [facility] 01-28-2024 13:45-0400 SaO2% (BldA) [Mass fraction] 96 % Tania Bonilla MD Work Phone: [facility] 01-28-2024 13:45-0400 Systolic blood pressure 139 mm[Hg] Tania Bonilla MD Work Phone: [facility] 07-21-2023 09:39-0400 Body height 170.2 cm Triston Lozano MD Work Phone: [facility] 07-21-2023 09:39-0400 Body weight 87.09 kg Triston Lozano MD Work Phone: [facility] 07-21-2023 09:39-0400 Diastolic blood pressure 93 mm[Hg] Triston Lozano MD Work Phone: [facility] 07-21-2023 09:39-0400 Heart rate 64 /min Triston Lozano MD Work Phone: [facility] 07-21-2023 09:39-0400 Systolic blood pressure 142 mm[Hg] Triston Lozano MD Work Phone: [facility] 06-09-2023 10:15-0500 Body temperature 97.2 [degF] Jim Pinedo MD Work Phone: [facility] 06-09-2023 10:15-0500 Body weight 90.13 kg Jim Pinedo MD Work Phone: [facility] 06-09-2023 10:15-0500 Diastolic blood pressure 84 mm[Hg] Jim Pinedo MD Work Phone: [facility] 06-09-2023 10:15-0500 Heart rate 74 /min Jim Pinedo MD Work Phone: [facility] 06-09-2023 10:15-0500 Respiratory rate 20 /min Jim Pinedo MD Work Phone: [facility] 06-09-2023 10:15-0500 SaO2% (BldA) [Mass fraction] 99 % Jim Pinedo MD Work Phone: [facility] 06-09-2023 10:15-0500 Systolic blood pressure 133 mm[Hg] Jim Pinedo MD Work Phone: [facility] 03-30-2023 10:26-0500 Body height 170.2 cm Rich Gudino MD Work Phone: [facility] 03-30-2023 10:26-0500 Body weight 79.38 kg Rich Gudino MD Work Phone: [facility] 03-30-2023 10:26-0500 Diastolic blood pressure 65 mm[Hg] Rich Gudino MD Work Phone: [facility] 03-30-2023 10:26-0500 Heart rate 68 /min Rich Gudino MD Work Phone: [facility] 03-30-2023 10:26-0500 Systolic blood pressure 108 mm[Hg] Rich Gudino MD Work Phone: [facility] 03-22-2023 09:45-0500 Diastolic blood pressure 66 mm[Hg] Americo Phile PA-C Work Phone: [facility] 03-22-2023 09:45-0500 Heart rate 68 /min Americo Phile PA-C Work Phone: [facility] 03-22-2023 09:45-0500 Respiratory rate 14 /min Americo Phile PA-C Work Phone: [facility] 03-22-2023 09:45-0500 SaO2% (BldA) [Mass fraction] 97 % Americo Phile PA-C Work Phone: [facility] 03-22-2023 09:45-0500 Systolic blood pressure 119 mm[Hg] Americo Phile PA-C Work Phone: [facility] 03-22-2023 07:56-0500 Body temperature 98.01 [degF] Americo Phile PA-C Work Phone: [facility] 02-18-2023 14:10-0400 Body temperature 98.1 [degF] Codie Soto MD Work Phone: [facility] 02-18-2023 14:10-0400 Body weight 80.74 kg Codie Soto MD Work Phone: [facility] 02-18-2023 14:10-0400 Diastolic blood pressure 81 mm[Hg] Codie Soto MD Work Phone: [facility] 02-18-2023 14:10-0400 Heart rate 80 /min Codie Soto MD Work Phone: [facility] 02-18-2023 14:10-0400 Respiratory rate 18 /min Codie Soto MD Work Phone: [facility] 02-18-2023 14:10-0400 SaO2% (BldA) [Mass fraction] 98 % Codie Soto MD Work Phone: [facility] 02-18-2023 14:10-0400 Systolic blood pressure 130 mm[Hg] Codie Soto MD Work Phone: [facility] 01-12-2023 12:57-0400 Body temperature 97.11 [degF] Americo Haney DO Work Phone: [facility] 01-12-2023 12:57-0400 Body weight 82.56 kg Americo Haney DO Work Phone: [facility] 01-12-2023 12:57-0400 Diastolic blood pressure 59 mm[Hg] Americo Haney DO Work Phone: [facility] 01-12-2023 12:57-0400 Heart rate 69 /min Americo Haney DO Work Phone: [facility] 01-12-2023 12:57-0400 SaO2% (BldA) [Mass fraction] 99 % Americo Haney DO Work Phone: [facility] 01-12-2023 12:57-0400 Systolic blood pressure 99 mm[Hg] Americo Haney DO Work Phone: [facility] 01-12-2023 08:38-0400 Body height 170.2 cm Triston Lozano MD Work Phone: [facility] 01-12-2023 08:38-0400 Body weight 82.56 kg Triston Lozano MD Work Phone: [facility] 01-12-2023 08:38-0400 Diastolic blood pressure 59 mm[Hg] Triston Lozano MD Work Phone: [facility] 01-12-2023 08:38-0400 Heart rate 69 /min Triston Lozano MD Work Phone: [facility] 01-12-2023 08:38-0400 Systolic blood pressure 99 mm[Hg] Triston Lozano MD Work Phone: [facility] 12-09-2022 10:07-0400 Body temperature 98.4 [degF] Codie Soto MD Work Phone: [facility] 12-09-2022 10:07-0400 Body weight 84.96 kg Codie Soto MD Work Phone: [facility] 12-09-2022 10:07-0400 Diastolic blood pressure 73 mm[Hg] Codie Soto MD Work Phone: [facility] 12-09-2022 10:07-0400 Heart rate 73 /min Codie Soto MD Work Phone: [facility] 12-09-2022 10:07-0400 Respiratory rate 18 /min Codie Soto MD Work Phone: [facility] 12-09-2022 10:07-0400 SaO2% (BldA) [Mass fraction] 98 % Codie Soto MD Work Phone: [facility] 12-09-2022 10:07-0400 Systolic blood pressure 117 mm[Hg] Codie Soto MD Work Phone: [facility] 11-27-2022 12:47-0400 Body weight 86.18 kg Rad Herrmanndine DO Work Phone: [facility] 11-27-2022 12:47-0400 Diastolic blood pressure 69 mm[Hg] Rad Aradine DO Work Phone: [facility] 11-27-2022 12:47-0400 Heart rate 75 /min Rad Herrmanndine DO Work Phone: [facility] 11-27-2022 12:47-0400 Systolic blood pressure 124 mm[Hg] Rad Herrmanndine DO Work Phone: [facility] 11-26-2022 08:26-0400 Body height 170.18 cm [facility]; [facility] Work Phone: 11-26-2022 08:26-0400 Body mass index (BMI) [Ratio] 29.76 kg/m2 [facility]; [facility] Work Phone: 11-26-2022 08:26-0400 Body surface area Derived from formula 1.98 m2 [facility]; [facility] Work Phone: 11-26-2022 08:26-0400 Body temperature 96.2 [degF] [facility]; [facility] Work Phone: 11-26-2022 08:26-0400 Body weight 86.18 kg [facility]; [facility] Work Phone: 11-26-2022 08:26-0400 Diastolic blood pressure 76 mm[Hg] [facility]; [facility] Work Phone: Comment on above: Patient Position: Sitting; Cuff Location : Left Arm; Cuff Size: Standard 11-26-2022 08:26-0400 Heart rate 62 /min [facility]; [facility] Work Phone: Comment on above: Pattern: Regular 11-26-2022 08:26-0400 Respiratory rate 16 /min [place] [facility]; [facility] Work Phone: Comment on above: Pattern: Unlabored 11-26-2022 08:26-0400 SaO2% (BldA) [Mass fraction] 95 % [place] [facility]; [facility] Work Phone: Comment on above: Room air 11-26-2022 08:26-0400 Systolic blood pressure 122 mm[Hg] [place] [facility]; [facility] Work Phone: Comment on above: Patient Position: Sitting; Cuff Location : Left Arm; Cuff Size: Standard 11-12-2022 09:54-0400 Body height 167.6 cm Codie Soto MD Work Phone: [facility] 11-12-2022 09:54-0400 Body temperature 98.4 [degF] Codie Soto MD Work Phone: [facility] 11-12-2022 09:54-0400 Body weight 83.46 kg Codie Soto MD Work Phone: [facility] 11-12-2022 09:54-0400 Diastolic blood pressure 73 mm[Hg] Codie Soto MD Work Phone: [facility] 11-12-2022 09:54-0400 Heart rate 71 /min Codie Soto MD Work Phone: [facility] 11-12-2022 09:54-0400 Respiratory rate 18 /min Codie Soto MD Work Phone: [facility] 11-12-2022 09:54-0400 SaO2% (BldA) [Mass fraction] 99 % Codie Soto MD Work Phone: [facility] 11-12-2022 09:54-0400 Systolic blood pressure 138 mm[Hg] Codie Soto MD Work Phone: [facility] 11-02-2022 10:19-0400 Body height 171.5 cm Pacc 1 Work Phone: [facility] 11-02-2022 10:19-0400 Body temperature 97.39 [degF] Pacc 1 Work Phone: [facility] 11-02-2022 10:19-0400 Body weight 82.83 kg Pacc 1 Work Phone: [facility] 11-02-2022 10:19-0400 Diastolic blood pressure 74 mm[Hg] Pacc 1 Work Phone: [facility] 11-02-2022 10:19-0400 Heart rate 63 /min Pacc 1 Work Phone: [facility] 11-02-2022 10:19-0400 SaO2% (BldA) [Mass fraction] 98 % Pacc 1 Work Phone: [facility] 11-02-2022 10:19-0400 Systolic blood pressure 114 mm[Hg] Pacc 1 Work Phone: [facility] 10-27-2022 11:42-0400 Body height 169.5 cm Carlos Jovel MD Work Phone: [facility] 10-27-2022 11:42-0400 Body temperature 97.9 [degF] Carlos Jovel MD Work Phone: [facility] 10-27-2022 11:42-0400 Body weight 83.6 kg Carlos Jovel MD Work Phone: [facility] 10-27-2022 11:42-0400 Diastolic blood pressure 87 mm[Hg] Carlos Jovel MD Work Phone: [facility] 10-27-2022 11:42-0400 Heart rate 62 /min Carlos Jovel MD Work Phone: [facility] 10-27-2022 11:42-0400 Respiratory rate 18 /min Carlos Jovel MD Work Phone: [facility] 10-27-2022 11:42-0400 SaO2% (BldA) [Mass fraction] 98 % Carlos Jovel MD Work Phone: [facility] 10-27-2022 11:42-0400 Systolic blood pressure 137 mm[Hg] Carlos Jovel MD Work Phone: [facility] 10-16-2022 10:54-0400 Body height 170.18 cm Solis Cool DO Work Phone: [facility]; [facility] Work Phone: Comment on above: partial vs due to pt requested a visit t [facility] telemedicine. withthe covid19 pandemic we are not bringing patients in the office. only those that need evaluations in person. Pt. is aware that the telemedicine available in this crisis time is not HIPPA secure and encrypted and give verbal agreement to proceed. 10-16-2022 10:54-0400 Body mass index (BMI) [Ratio] 1.67 kg/m2 Solis Cool DO Work Phone: [facility]; [facility] Work Phone: Comment on above: partial vs due to pt requested a visit t [facility] telemedicine. withthe covid19 pandemic we are not bringing patients in the office. only those that need evaluations in person. Pt. is aware that the telemedicine available in this crisis time is not HIPPA secure and encrypted and give verbal agreement to proceed. 10-16-2022 10:54-0400 Body surface area Derived from formula 0.58 m2 Solis Cool DO Work Phone: [facility]; [facility] Work Phone: Comment on above: partial vs due to pt requested a visit t hrough telemedicine. withthe covid19 pandemic we are not bringing patients in the office. only those that need evaluations in person. Pt. is aware that the telemedicine available in this crisis time is not HIPPA secure and encrypted and give verbal agreement to proceed. 10-16-2022 10:54-0400 Body weight 4.85 kg Solis Cool DO Work Phone: [facility]; [facility] Work Phone: Comment on above: partial vs due to pt requested a visit t hrough telemedicine. withthe covid19 pandemic we are not bringing patients in the office. only those that need evaluations in person. Pt. is aware that the telemedicine available in this crisis time is not HIPPA secure and encrypted and give verbal agreement to proceed. 10-16-2022 10:54-0400 Diastolic blood pressure 86 mm[Hg] Solis Cool DO Work Phone: [facility]; [facility] Work Phone: Comment on above: Patient Position: Sitting partial vs due to pt requested a visit through telemedicine. withthe covid19 pandemic we are not bringing patients in the office. only those that need evaluations in person. Pt. is aware that the telemedicine available in this crisis time is not HIPPA secure and encrypted and give verbal agreement to proceed. 10-16-2022 10:54-0400 Heart rate 66 /min Solis Cool DO Work Phone: [facility]; [facility] Work Phone: Comment on above: Pattern: Regular partial vs due to pt requested a visit through telemedicine. withthe covid19 pandemic we are not bringing patients in the office. only those that need evaluations in person. Pt. is aware that the telemedicine available in this crisis time is not HIPPA secure and encrypted and give verbal agreement to proceed. 10-16-2022 10:54-0400 Systolic blood pressure 120 mm[Hg] Solis Cool DO Work Phone: [facility]; [facility] Work Phone: Comment on above: Patient Position: Sitting partial vs due to pt requested a visit through telemedicine. withthe covid19 pandemic we are not bringing patients in the office. only those that need evaluations in person. Pt. is aware that the telemedicine available in this crisis time is not HIPPA secure and encrypted and give verbal agreement to proceed. 10-05-2022 10:05-0400 Body height 170.[address] Solis Cool Work Phone: [facility] 10-05-2022 10:05-0400 Body mass index (BMI) [Ratio] 28.1 kg/m2 Dr. Solis Cool Work Phone: [facility] 10-05-2022 10:05-0400 Body weight 81.[address] Solis Cool Work Phone: [facility] 10-05-2022 10:05-0400 Diastolic blood pressure 76 mm[Hg] Dr. Solis Cool Work Phone: [facility] 10-05-2022 10:05-0400 Heart rate 72 /min Dr. Solis Cool Work Phone: [facility] 10-05-2022 10:05-0400 Respiratory rate 18 /min Dr. Solis Cool Work Phone: [facility] 10-05-2022 10:05-0400 SaO2% (BldA) [Mass fraction] 96 % Dr. Solis Cool Work Phone: [facility] 10-05-2022 10:05-0400 Systolic blood pressure 116 mm[Hg] Dr. Solis Cool Work Phone: [facility] 09-02-2022 10:39-0400 Body height 170.18 cm [facility]; [facility] Work Phone: 09-02-2022 10:39-0400 Body mass index (BMI) [Ratio] 26.78 [facility]; [facility] Work Phone: 09-02-2022 10:39-0400 Body surface area Derived from formula 1.89 m2 Darryl Kennedy [facility]; [facility] Work Phone: 09-02-2022 10:39-0400 Body weight 77.57 kg Kayela Ruston [employer] [facility]; [facility] Work Phone: 09-02-2022 10:39-0400 Diastolic blood pressure 86 mm[Hg] Darryl Kennedy [facility]; [facility] Work Phone: Comment on above: Patient Position: Sitting; Cuff Location : Left Arm; Cuff Size: Standard 09-02-2022 10:39-0400 SaO2% (BldA) [Mass fraction] 96 % Darryl Koroma [facility]; [facility] Work Phone: Comment on above: Room air 09-02-2022 10:39-0400 Systolic blood pressure 121 mm[Hg] Darryl Koroma [facility]; [facility] Work Phone: Comment on above: Patient Position: Sitting; Cuff Location : Left Arm; Cuff Size: Standard 08-25-2022 11:04-0400 Body height 170.2 cm Rad Aradine DO Work Phone: [facility] 08-25-2022 11:04-0400 Body temperature 98.01 [degF] Rad Aradine DO Work Phone: [facility] 08-25-2022 11:04-0400 Body weight 78.25 kg Rad Aradine DO Work Phone: [facility] 08-25-2022 11:04-0400 Diastolic blood pressure 75 mm[Hg] Rad Aradine DO Work Phone: [facility] 08-25-2022 11:04-0400 Heart rate 65 /min Rad Aradine DO Work Phone: [facility] 08-25-2022 11:04-0400 Respiratory rate 14 /min Rad Aradine DO Work Phone: [facility] 08-25-2022 11:04-0400 SaO2% (BldA) [Mass fraction] 97 % Rad Aradine DO Work Phone: [facility] 04-25-2023 11:04-0400 Systolic blood pressure 127 mm[Hg] Rad Aradine DO Work Phone: [facility] 06-24-2022 15:49-0500 Body height 170.2 cm Rad Aradine DO Work Phone: [facility] 06-24-2022 15:49-0500 Body temperature 96.8 [degF] Rad Aradine DO Work Phone: [facility] 06-24-2022 15:49-0500 Body weight 78.02 kg Rad Aradine DO Work Phone: [facility] 06-24-2022 15:49-0500 Diastolic blood pressure 74 mm[Hg] Rad Aradine DO Work Phone: [facility] 06-24-2022 15:49-0500 Heart rate 60 /min Rad Aradine DO Work Phone: [facility] 06-24-2022 15:49-0500 Respiratory rate 14 /min Rad Aradine DO Work Phone: [facility] 06-24-2022 15:49-0500 SaO2% (BldA) [Mass fraction] 100 % Rad Aradine DO Work Phone: [facility] 06-24-2022 15:49-0500 Systolic blood pressure 110 mm[Hg] Rad Aradine DO Work Phone: [facility] 06-19-2022 15:01-0500 Body height 170.18 cm [facility]; [facility] Work Phone: 06-19-2022 15:01-0500 Body mass index (BMI) [Ratio] 27.58 kg/m2 [facility]; [facility] Work Phone: 06-19-2022 15:01-0500 Body surface area Derived from formula 1.92 m2 [facility]; [facility] Work Phone: 06-19-2022 15:01-0500 Body temperature 96.9 [degF] Darryl Koroma [facility]; [facility] Work Phone: 06-19-2022 15:01-0500 Body weight 79.89 kg Darryl Koroma [facility]; [facility] Work Phone: 06-19-2022 15:01-0500 Diastolic blood pressure 68 mm[Hg] Darryl Koroma [facility]; [facility] Work Phone: Comment on above: Patient Position: Sitting; Cuff Location : Left Arm; Cuff Size: Standard 06-19-2022 15:01-0500 Heart rate 65 /min Darryl Koroma [facility]; [facility] Work Phone: Comment on above: Pattern: Regular 06-19-2022 15:01-0500 Respiratory rate 16 /min Darryl Koroma [facility]; [facility] Work Phone: Comment on above: Pattern: Unlabored 06-19-2022 15:01-0500 SaO2% (BldA) [Mass fraction] 96 % Darryl Koroma [facility]; [facility] Work Phone: Comment on above: Room air 06-19-2022 15:01-0500 Systolic blood pressure 114 mm[Hg] Darryl Koroma [facility]; [facility] Work Phone: Comment on above: Patient Position: Sitting; Cuff Location : Left Arm; Cuff Size: Standard 06-09-2022 15:29-0500 Body height 170.[address] Solis Cool Work Phone: [facility] 06-09-2022 15:29-0500 Body weight 81.[address] Solis Cool Work Phone: [facility] 06-09-2022 14:54-0500 Body temperature 97.6 [degF] Dr. Solis Cool Work Phone: [facility] 06-09-2022 14:54-0500 Diastolic blood pressure 71 mm[Hg] Dr. Solis Cool Work Phone: [facility] 06-09-2022 14:54-0500 Heart rate 63 /min Dr. Solis Cool Work Phone: [facility] 06-09-2022 14:54-0500 Respiratory rate 20 /min Dr. Solis Cool Work Phone: [facility] 06-09-2022 14:54-0500 SaO2% (BldA) [Mass fraction] 99 % Dr. Solis Cool Work Phone: [facility] 06-09-2022 14:54-0500 Systolic blood pressure 123 mm[Hg] Dr. Solis Cool Work Phone: [facility] 06-09-2022 12:25-0500 Body mass index (BMI) [Ratio] 27.3 kg/m2 Dr. Solis Cool Work Phone: [facility] 06-08-2022 19:11-0500 Body temperature 98.1 [degF] Dr. Solis Cool Work Phone: [facility] 06-08-2022 19:11-0500 Diastolic blood pressure 63 mm[Hg] Dr. Solis Cool Work Phone: [facility] 06-08-2022 19:11-0500 Heart rate 70 /min Dr. Solis Cool Work Phone: [facility] 06-08-2022 19:11-0500 Respiratory rate 26 /min Dr. Soils Cool Work Phone: [facility] 06-08-2022 19:11-0500 SaO2% (BldA) [Mass fraction] 98 % Dr. Solis Cool Work Phone: [facility] 06-08-2022 19:11-0500 Systolic blood pressure 129 mm[Hg] Dr. Solis Cool Work Phone: [facility] 06-08-2022 12:28-0500 Body height 170.[address] Solis Cool Work Phone: [facility] 06-08-2022 12:28-0500 Body mass index (BMI) [Ratio] 27.3 kg/m2 Dr. Solis Cool Work Phone: [facility] 06-08-2022 12:28-0500 Body weight 79.[address] Solis Cool Work Phone: [facility] 06-02-2022 07:36-0500 Body height 170.[address] Solis Cool Work Phone: [facility] 06-02-2022 07:36-0500 Body mass index (BMI) [Ratio] 26.9 kg/m2 Dr. Solis Cool Work Phone: [facility] 06-02-2022 07:36-0500 Body temperature 97.9 [degF] Dr. Solis Cool Work Phone: [facility] 06-02-2022 07:36-0500 Body weight 78.[address] Solis Cool Work Phone: [facility] 06-02-2022 07:36-0500 Diastolic blood pressure 79 mm[Hg] Dr. Solis Cool Work Phone: [facility] 06-02-2022 07:36-0500 Heart rate 58 /min Dr. Solis Cool Work Phone: [facility] 06-02-2022 07:36-0500 Respiratory rate 16 /min Dr. Solis Cool Work Phone: [facility] 06-02-2022 07:36-0500 SaO2% (BldA) [Mass fraction] 95 % Dr. Solis Cool Work Phone: [facility] 06-02-2022 07:36-0500 Systolic blood pressure 103 mm[Hg] Dr. Solis Cool Work Phone: [facility] 06-02-2022 06:26-0500 Heart rate 58 /min Dr. Solis Cool Work Phone: [facility] 06-02-2022 06:21-0500 Body temperature 97.6 [degF] Dr. Solis Cool Work Phone: [facility] 06-02-2022 06:21-0500 Diastolic blood pressure 56 mm[Hg] Dr. Solis Cool Work Phone: [facility] 06-02-2022 06:21-0500 Respiratory rate 18 /min Dr. Solis Cool Work Phone: [facility] 06-02-2022 06:21-0500 SaO2% (BldA) [Mass fraction] 94 % Dr. Solis Cool Work Phone: [facility] 06-02-2022 06:21-0500 Systolic blood pressure 92 mm[Hg] Dr. Solis Cool Work Phone: [facility] 06-02-2022 05:09-0500 Body height 170.[address] Solis Cool Work Phone: [facility] 06-02-2022 05:09-0500 Body mass index (BMI) [Ratio] 27.1 kg/m2 Dr. Solis Cool Work Phone: [facility] 06-02-2022 05:09-0500 Body weight 78.[address] Solis Cool Work Phone: [facility] 05-27-2022 12:04-0500 Body height 170.18 cm Rachel Mason LPN [facility]; [facility] Work Phone: 05-27-2022 12:04-0500 Body mass index (BMI) [Ratio] 26.94 kg/m2 Rachel aMson LPN [facility]; [facility] Work Phone: 05-27-2022 12:04-0500 Body surface area Derived from formula 1.9 m2 Rachel Mason LPN [facility]; [facility] Work Phone: 05-27-2022 12:04-0500 Body temperature 96.7 [degF] Rachel Vanegasrb INTEGRATION DEVELOPER [facility]; [facility] Work Phone: Comment on above: Method: Temporal 05-27-2022 12:04-0500 Body weight 78.02 kg Rachel Mason INTEGRATION DEVELOPER [facility]; [facility] Work Phone: 05-27-2022 12:04-0500 Diastolic blood pressure 80 mm[Hg] Rachel Rominarb INTEGRATION DEVELOPER [facility]; [facility] Work Phone: Comment on above: Patient Position: Sitting; Cuff Location : Left Arm; Cuff Size: Standard 05-27-2022 12:04-0500 Heart rate 68 /min Rachel Vanegasrb INTEGRATION DEVELOPER [facility]; [facility] Work Phone: Comment on above: Pattern: Regular 05-27-2022 12:04-0500 Respiratory rate 17 /min Rachel Mason LPN [facility]; [facility] Work Phone: Comment on above: Pattern: Unlabored 05-27-2022 12:04-0500 SaO2% (BldA) [Mass fraction] 98 % Rachel Mason INTEGRATION DEVELOPER [facility]; [facility] Work Phone: Comment on above: Room air 05-27-2022 12:04-0500 Systolic blood pressure 120 mm[Hg] Rachel Mason INTEGRATION DEVELOPER [facility]; [facility] Work Phone: Comment on above: Patient Position: Sitting; Cuff Location : Left Arm; Cuff Size: Standard 04-02-2022 14:13-0500 Body height 170.18 cm Tio Kirkpatrick LPN [facility]; [facility] Work Phone: 04-02-2022 14:13-0500 Body mass index (BMI) [Ratio] 26.94 kg/m2 Tio Kirkpatrick LPN [facility]; [facility] Work Phone: 04-02-2022 14:13-0500 Body surface area Derived from formula 1.9 m2 Tio Kirkpatrick LPN [facility]; [facility] Work Phone: 04-02-2022 14:13-0500 Body weight 78.02 kg Tio Kirkpatrick LPN [facility]; [facility] Work Phone: 03-13-2022 09:16-0500 Body height 170.18 cm Tio Kirkpatrick LPN [facility]; [facility] Work Phone: 03-13-2022 09:16-0500 Body mass index (BMI) [Ratio] 26.94 kg/m2 Tio Kirkpatrick LPN [facility]; [facility] Work Phone: 03-13-2022 09:16-0500 Body surface area Derived from formula 1.9 m2 Tio Kirkpatrick LPN [facility]; [facility] Work Phone: 03-13-2022 09:16-0500 Body weight 78.02 kg Tio Kirkpatrick LPN [facility]; [facility] Work Phone: 03-13-2022 09:16-0500 Diastolic blood pressure 78 mm[Hg] Tio Kirkpatrick LPN [facility]; [facility] Work Phone: Comment on above: Patient Position: Sitting; Cuff Location : Left Arm; Cuff Size: Standard 03-13-2022 09:16-0500 Heart rate 85 /min Tio Kirkpatrick LPN [facility]; [facility] Work Phone: Comment on above: Pattern: Regular 03-13-2022 09:16-0500 Respiratory rate 16 /min Tio Kirkpatrick LPN [facility]; [facility] Work Phone: Comment on above: Pattern: Unlabored 03-13-2022 09:16-0500 SaO2% (BldA) [Mass fraction] 95 % Tio Kirkpatrick LPN [facility]; [facility] Work Phone: Comment on above: Room air 03-13-2022 09:16-0500 Systolic blood pressure 118 mm[Hg] Tio Kirkpatrick LPN [facility]; [facility] Work Phone: Comment on above: Patient Position: Sitting; Cuff Location : Left Arm; Cuff Size: Standard 10-10-2021 12:21-0400 Body height 170.18 cm Shonna Aguirre CMA [facility]; [facility] Work Phone: 10-10-2021 12:21-0400 Body mass index (BMI) [Ratio] 26.95 kg/m2 Shonna Aguirre CMA [facility]; [facility] Work Phone: 10-10-2021 12:040 Body surface area Derived from formula 1.9 m2 Shonna Aguirre CMA [facility]; [facility] Work Phone: 10-10-2021 12:040 Body temperature 97.3 [degF] Shonna Aguirre CMA [facility]; [facility] Work Phone: Comment on above: Method: Infrared 10-10-2021 12:040 Body weight 78.04 kg Shonna Aguirre CMA [facility]; [facility] Work Phone: 10-10-2021 [id number] Diastolic blood pressure 90 mm[Hg] Shonna Aguirre CMA [facility]; [facility] Work Phone: Comment on above: Patient Position: Sitting; Cuff Location : Left Arm; Cuff Size: Standard 10-10-2021 12:21-0400 Heart rate 77 /min Shonna Aguirre CMA [facility]; [facility] Work Phone: Comment on above: Pattern: Regular 10-10-2021 12:21-0400 Respiratory rate 18 /min Shonna Aguirre CMA [facility]; [facility] Work Phone: Comment on above: Pattern: Unlabored 10-10-2021 12:21-0400 SaO2% (BldA) [Mass fraction] 97 % Shonna Aguirre [facility]; [facility] Work Phone: Comment on above: Room air 10-10-2021 12:21-0400 Systolic blood pressure 120 mm[Hg] Shonna Aguirre [facility]; [facility] Work Phone: Comment on above: Patient Position: Sitting; Cuff Location : Left Arm; Cuff Size: Standard 10-08-2021 20:00-0400 Diastolic blood pressure 74 mm[Hg] [facility] Work Phone: 10-08-2021 20:00-0400 Heart rate 61 /min [facility] Work Phone: 10-08-2021 20:00-0400 Respiratory rate 14 /min [facility] Work Phone: 10-08-2021 20:00-0400 SaO2% (BldA) [Mass fraction] 96 % [facility] Work Phone: 10-08-2021 20:00-0400 Systolic blood pressure 126 mm[Hg] [facility] Work Phone: 10-08-2021 16:23-0400 Body height 171.45 cm [facility] Work Phone: 10-08-2021 16:23-0400 Body mass index (BMI) [Ratio] 27.5 kg/m2 [facility] Work Phone: 10-08-2021 16:23-0400 Body temperature 98.4 [degF] [facility] Work Phone: 10-08-2021 16:23-0400 Body weight 81 kg [facility] Work Phone: 09-19-2021 08:26-0400 Body height 170.18 cm Rachel Mason LPN [facility]; [facility] Work Phone: 09-19-2021 08:26-0400 Body mass index (BMI) [Ratio] 27.26 kg/m2 Rachel Marlon CHATTERJEE [facility]; [facility] Work Phone: 09-19-2021 08:26-0400 Body surface area Derived from formula 1.91 m2 Rachel Mason LPN [facility]; [facility] Work Phone: 09-19-2021 08:26-0400 Body temperature 97.1 [degF] Rachel Vanegasrb INTEGRATION DEVELOPER [facility]; [facility] Work Phone: 09-19-2021 08:26-0400 Body weight 78.95 kg Rachel Mason INTEGRATION DEVELOPER [facility]; [facility] Work Phone: 09-19-2021 08:26-0400 Diastolic blood pressure 72 mm[Hg] Rachel Vanegasrb INTEGRATION DEVELOPER [facility]; [facility] Work Phone: Comment on above: Patient Position: Sitting; Cuff Location : Left Arm; Cuff Size: Standard 09-19-2021 08:26-0400 Heart rate 67 /min Rachel Rominarb INTEGRATION DEVELOPER [facility]; [facility] Work Phone: Comment on above: Pattern: Regular 09-19-2021 08:26-0400 Respiratory rate 17 /min Rachel Rominarb INTEGRATION DEVELOPER [facility]; [facility] Work Phone: Comment on above: Pattern: Unlabored 09-19-2021 08:26-0400 SaO2% (BldA) [Mass fraction] 97 % Rachel Vanegasrb INTEGRATION DEVELOPER [facility]; [facility] Work Phone: Comment on above: Room air 09-19-2021 08:26-0400 Systolic blood pressure 116 mm[Hg] Rachel Vanegasrb INTEGRATION DEVELOPER [facility]; [facility] Work Phone: Comment on above: Patient Position: Sitting; Cuff Location : Left Arm; Cuff Size: Standard 03-14-2021 09:010500 Body height 170.18 cm Lulú Merrill MA [facility]; [facility] Work Phone: 03-14-2021 09:01-0500 Body mass index (BMI) [Ratio] 26.48 kg/m2 Lulú Merrill MA [facility]; [facility] Work Phone: 03-14-2021 09:01-0500 Body surface area Derived from formula 1.88 m2 Lulú Merrill MA [facility]; [facility] Work Phone: 03-14-2021 09:01-0500 Body temperature 96.9 [degF] Lulú Merrill MA [facility]; [facility] Work Phone: Comment on above: Method: Temporal 03-14-2021 09:01-0500 Body weight 76.68 kg Lulú Merrill MA [facility]; [facility] Work Phone: 03-14-2021 09:01-0500 Diastolic blood pressure 82 mm[Hg] Lulú Merrill MA [facility]; [facility] Work Phone: Comment on above: Patient Position: Sitting; Cuff Location : Left Arm; Cuff Size: Standard 03-14-2021 09:01-0500 Heart rate 72 /min Lulú Merrill MA [facility]; [facility] Work Phone: Comment on above: Pattern: Regular 03-14-2021 09:01-0500 Respiratory rate 16 /min Lulú Merrill MA [facility]; [facility] Work Phone: Comment on above: Pattern: Unlabored 03-14-2021 09:01-0500 SaO2% (BldA) [Mass fraction] 97 % Lulú Merrill MA [facility]; [facility] Work Phone: Comment on above: Room air 03-14-2021 09:01-0500 Systolic blood pressure 118 mm[Hg] Lulú Merrill MA [facility]; [facility] Work Phone: Comment on above: Patient Position: Sitting; Cuff Location : Left Arm; Cuff Size: Standard 09-18-2020 08:39-0400 Body height 170.18 cm [facility]; [facility] Work Phone: 09-18-2020 08:39-0400 Body mass index (BMI) [Ratio] 27.42 kg/m2 [facility]; [facility] Work Phone: 09-18-2020 08:39-0400 Body surface area Derived from formula 1.91 m2 [facility]; [facility] Work Phone: 09-18-2020 08:39-0400 Body weight 79.4 kg Radha Mcadams INTEGRATION DEVELOPER [facility]; [facility] Work Phone: 07-15-2020 09:27-0400 BMI (Body Mass Index) 27.42 kg/m2 Tio Kirkpatrick LPN [facility]; [facility] Work Phone: 07-15-2020 09:27-0400 Body Temperature 97.1 [degF] Tio Kirkpatrick LPN [facility]; [facility] Work Phone: Comment on above: Method: Infrared 07-15-2020 09:27-0400 Body weight 79.4 kg Tio Kirkpatrick LPN [facility]; [facility] Work Phone: 07-15-2020 09:27-0400 BP Diastolic 70 mm[Hg] Tio Kirkpatrick LPN [facility]; [facility] Work Phone: Comment on above: Patient Position: Sitting; Cuff Location : Left Arm; Cuff Size: Standard 07-15-2020 09:27-0400 BP Systolic 118 mm[Hg] Tio Kirkpatrick LPN [facility]; [facility] Work Phone: Comment on above: Patient Position: Sitting; Cuff Location : Left Arm; Cuff Size: Standard 07-15-2020 09:27-0400 BSA (Body Surface Area) 1.91 m2 Tio Kirkpatrick LPN [facility]; [facility] Work Phone: 07-15-2020 09:27-0400 Height 170.18 cm Tio Kirkpatrick LPN [facility]; [facility] Work Phone: 07-15-2020 09:27-0400 Pulse (Heart Rate) 96 /min Tio Kirkpatrick LPN [facility]; [facility] Work Phone: Comment on above: Pattern: Regular 07-15-2020 09:27-0400 Pulse Oximetry 96 % Solis Cool [facility]; [facility] Work Phone: Comment on above: Room air 07-15-2020 09:27-0400 Respiratory Rate 18 /min Tio Kirkpatrick LPN [facility]; [facility] Work Phone: Comment on above: Pattern: Unlabored 07-15-2020 09:27-0400 SaO2% (BldA) [Mass fraction] 96 % Tio Kirkpatrick LPN [facility]; [facility] Work Phone: Comment on above: Room air 07-08-2020 12:58-0500 BMI (Body Mass Index) 26.47 kg/m2 Tio Kirkpatrick LPN [facility]; [facility] Work Phone: 07-08-2020 12:58-0500 Body Temperature 97.1 [degF] Tio Kirkpatrick LPN [facility]; [facility] Work Phone: Comment on above: Method: Infrared 07-08-2020 12:58-0500 Body weight 76.66 kg Tio Kirkpatrick LPN [facility]; [facility] Work Phone: 07-08-2020 12:58-0500 BP Diastolic 78 mm[Hg] Tio Kirkpatrick LPN [facility]; [facility] Work Phone: Comment on above: Patient Position: Sitting; Cuff Location : Left Arm; Cuff Size: Standard 07-08-2020 12:58-0500 BP Systolic 120 mm[Hg] Tio Kirkpatrick LPN [facility]; [facility] Work Phone: Comment on above: Patient Position: Sitting; Cuff Location : Left Arm; Cuff Size: Standard 07-08-2020 12:58-0500 BSA (Body Surface Area) 1.88 m2 Tio Kirkpatrick LPN [facility]; [facility] Work Phone: 07-08-2020 12:58-0500 Height 170.18 cm Tio Kirkpatrick LPN [facility]; [facility] Work Phone: 07-08-2020 12:58-0500 Pulse (Heart Rate) 85 /min Tio Kirkpatrick LPN [facility]; [facility] Work Phone: Comment on above: Pattern: Regular 07-08-2020 12:58-0500 Pulse Oximetry 97 % [employer] [facility]; [facility] Work Phone: Comment on above: Room air 07-08-2020 12:58-0500 Respiratory Rate 16 /min Tio Kirkpatrick [facility]; [facility] Work Phone: Comment on above: Pattern: Unlabored 07-08-2020 12:58-0500 SaO2% (BldA) [Mass fraction] 97 % Tio Casimiro [facility]; [facility] Work Phone: Comment on above: Room air 07-04-2020 11:57-0500 BMI (Body Mass Index) 26.47 kg/m2 Shonna Kiaraius [facility]; [facility] Work Phone: 07-04-2020 11:57-0500 Body weight 76.66 kg Shonna Kiaraius [facility]; [facility] Work Phone: 07-04-2020 11:57-0500 BSA (Body Surface Area) 1.88 m2 Shonna Kiaraius [facility]; [facility] Work Phone: 07-04-2020 11:57-0500 Height 170.18 cm Shonna Kiaraius [facility]; [facility] Work Phone: 07-03-2020 09:18-0500 BMI (Body Mass Index) 26.47 kg/m2 Shonna Gravius [facility]; [facility] Work Phone: 07-03-2020 09:18-0500 Body Temperature 97.3 [degF] Shonna Kiaraius [facility]; [facility] Work Phone: Comment on above: Method: Infrared 07-03-2020 09:18-0500 Body weight 76.66 kg Shonna Kiaraius [facility]; [facility] Work Phone: 07-03-2020 09:18-0500 BP Diastolic 80 mm[Hg] Shonna Gravius [facility]; [facility] Work Phone: Comment on above: Patient Position: Sitting; Cuff Location : Left Arm; Cuff Size: Standard 07-03-2020 09:18-0500 BP Systolic 122 mm[Hg] Shonna Aguirre [facility]; [facility] Work Phone: Comment on above: Patient Position: Sitting; Cuff Location : Left Arm; Cuff Size: Standard 07-03-2020 09:18-0500 BSA (Body Surface Area) 1.88 m2 Shonna Aguirre [facility]; [facility] Work Phone: 07-03-2020 09:18-0500 Height 170.18 cm Shonna Aguirre [facility]; [facility] Work Phone: 07-03-2020 09:18-0500 Pulse (Heart Rate) 81 /min Shonna Aguirre [facility]; [facility] Work Phone: Comment on above: Pattern: Regular 07-03-2020 09:18-0500 Pulse Oximetry 96 % [employer] [facility]; [facility] Work Phone: Comment on above: Room air 07-03-2020 09:18-0500 Respiratory Rate 16 /min Shonna Aguirre [facility]; [facility] Work Phone: Comment on above: Pattern: Unlabored 07-03-2020 09:18-0500 SaO2% (BldA) [Mass fraction] 96 % Shonna Aguirre [facility]; [facility] Work Phone: Comment on above: Room air 07-01-2020 15:20-0500 BMI (Body Mass Index) 26.47 kg/m2 Shonna Aguirre [facility]; [facility] Work Phone: 07-01-2020 15:20-0500 Body Temperature 97.5 [degF] Shonna Aguirre [facility]; [facility] Work Phone: Comment on above: Method: Infrared 07-01-2020 15:20-0500 Body weight 76.66 kg Shonna Aguirre [facility]; [facility] Work Phone: 07-01-2020 15:20-0500 BP Diastolic 100 mm[Hg] Shonna Aguirre [facility]; [facility] Work Phone: Comment on above: Patient Position: Sitting; Cuff Location : Left Arm; Cuff Size: Standard 07-01-2020 15:20-0500 BP Systolic 152 mm[Hg] Shonna Aguirre [facility]; [facility] Work Phone: Comment on above: Patient Position: Sitting; Cuff Location : Left Arm; Cuff Size: Standard 07-01-2020 15:20-0500 BSA (Body Surface Area) 1.88 m2 Shonna Aguirre [facility]; [facility] Work Phone: 07-01-2020 15:20-0500 Height 170.18 cm Shonna Aguirre [facility]; [facility] Work Phone: 07-01-2020 15:20-0500 Pulse (Heart Rate) 88 /min Shonna Aguirre [facility]; [facility] Work Phone: Comment on above: Pattern: Regular 07-01-2020 15:20-0500 Pulse Oximetry 96 % [employer] [facility]; [facility] Work Phone: Comment on above: Room air 07-01-2020 15:20-0500 Respiratory Rate 16 /min Shonna Aguirre [facility]; [facility] Work Phone: Comment on above: Pattern: Unlabored 07-01-2020 15:20-0500 SaO2% (BldA) [Mass fraction] 96 % Shonna Aguirre [facility]; [facility] Work Phone: Comment on above: Room air 06-28-2020 09:32-0500 BMI (Body Mass Index) 26.47 kg/m2 Rachel Slarb [facility]; [facility] Work Phone: 06-28-2020 09:32-0500 Body Temperature 97.5 [degF] Rachel Rominarb [employer] [facility]; [facility] Work Phone: 06-28-2020 09:32-0500 Body weight 76.66 kg Rachel Slarb [employer] [facility]; [facility] Work Phone: 06-28-2020 09:32-0500 BP Diastolic 82 mm[Hg] Rachel Slarb [employer] [facility]; [facility] Work Phone: Comment on above: Patient Position: Sitting; Cuff Location : Left Arm; Cuff Size: Standard 06-28-2020 09:32-0500 BP Systolic 126 mm[Hg] Rachel Slarb [employer] [facility]; [facility] Work Phone: Comment on above: Patient Position: Sitting; Cuff Location : Left Arm; Cuff Size: Standard 06-28-2020 09:32-0500 BSA (Body Surface Area) 1.88 m2 Rachel Slarb [employer] [facility]; [facility] Work Phone: 06-28-2020 09:32-0500 Height 170.18 cm Rachel Rominarb [employer] [facility]; [facility] Work Phone: 06-28-2020 09:32-0500 Pulse (Heart Rate) 83 /min Rachel Rominarb [employer] [facility]; [facility] Work Phone: Comment on above: Pattern: Regular 06-28-2020 09:32-0500 Pulse Oximetry 95 % [employer] [facility]; [facility] Work Phone: Comment on above: Room air 06-28-2020 09:32-0500 Respiratory Rate 16 /min Rachel Rominarb [employer] [facility]; [facility] Work Phone: Comment on above: Pattern: Unlabored 06-28-2020 09:32-0500 SaO2% (BldA) [Mass fraction] 95 % Rachel Slarb [employer] [facility]; [facility] Work Phone: Comment on above: Room air 04-12-2020 09:46-0500 Body Temperature 98.2 [degF] [employer]is Cool DO Work Phone: [facility]; [facility] Work Phone: Comment on above: Method: Oral her normal temp is 9 6-97.8 12-11-2020 09:46-0500 Body weight 74.84 kg Solis Cool DO Work Phone: [facility]; [facility] Work Phone: Comment on above: her normal temp is 96-97.8 04-12-2020 09:46-0500 BP Diastolic 77 mm[Hg] Solis Cool DO Work Phone: [facility]; [facility] Work Phone: Comment on above: Patient Position: Sitting her normal temp is 9 6-97.8 04-12-2020 09:46-0500 BP Systolic 123 mm[Hg] [employer]is Cool DO Work Phone: [facility]; [facility] Work Phone: Comment on above: Patient Position: Sitting her normal temp is 9 6-97.8 04-12-2020 09:46-0500 Pulse (Heart Rate) 78 /min [employer] Cool DO Work Phone: [facility]; [facility] Work Phone: Comment on above: Pattern: Regular her normal temp is 9 6-97.8 04-12-2020 09:46-0500 Pulse Oximetry 96 % [employer] [facility]; [facility] Work Phone: Comment on above: Room air her normal temp is 9 6-97.8 04-12-2020 09:46-0500 SaO2% (BldA) [Mass fraction] 96 % [employer] Cool DO Work Phone: [facility]; [facility] Work Phone: Comment on above: Room air her normal temp is 9 6-97.8 03-22-2020 09:29-0500 Body Temperature 97.1 [degF] [employer] Cool DO Work Phone: [facility] Work Phone: Comment on above: Method: Oral pulse ox on watchoth er limited vs bc virtual visit with covid 03-22-2020 09:29-0500 Body weight 74.84 kg Solis Travon DO Work Phone: [facility] Work Phone: Comment on above: pulse ox on watchother limited vs bc vir tual visit with covid 03-22-2020 09:29-0500 Pulse (Heart Rate) 82 /min Solis Travon DO Work Phone: [facility] Work Phone: Comment on above: Pattern: Regular pulse ox on watchoth er limited vs bc virtual visit with covid 03-22-2020 09:29-0500 Pulse Oximetry 98 % Solis Travon [facility] Work Phone: Comment on above: Room air pulse ox on watchoth er limited vs bc virtual visit with covid 03-22-2020 09:29-0500 SaO2% (BldA) [Mass fraction] 98 % Solis Travon DO Work Phone: [facility]; [facility] Work Phone: Comment on above: Room air pulse ox on watchoth er limited vs bc virtual visit with covid 03-18-2020 11:00-0500 Body Temperature 99 [degF] Solis Travon DO Work Phone: [facility] Work Phone: Comment on above: Method: Oral 03-18-2020 11:00-0500 Body weight 74.84 kg Solis Travon DO Work Phone: [facility] Work Phone: 03-18-2020 11:00-0500 BP Diastolic 80 mm[Hg] Solis Travon DO Work Phone: [facility] Work Phone: Comment on above: Patient Position: Sitting 03-18-2020 11:00-0500 BP Systolic 120 mm[Hg] Solis Travon DO Work Phone: [facility] Work Phone: Comment on above: Patient Position: Sitting 03-18-2020 11:00-0500 Pulse (Heart Rate) 86 /min Solis Travon DO Work Phone: [facility] Work Phone: Comment on above: Pattern: Regular 03-18-2020 11:00-0500 Pulse Oximetry 96 % [employer] [facility] Work Phone: Comment on above: Room air 03-18-2020 11:00-0500 SaO2% (BldA) [Mass fraction] 96 % Solis Cool DO Work Phone: [facility]; [facility] Work Phone: Comment on above: Room air 03-18-2020 10:36-0500 BMI (Body Mass Index) 24.28 kg/m2 Tio Kirkpatrick LPN [facility] Work Phone: 03-18-2020 10:36-0500 Body weight 70.31 kg Tio Kirkpatrick LPN [facility] Work Phone: 03-18-2020 10:36-0500 BSA (Body Surface Area) 1.81 m2 Tio Kirkpatrick LPN [facility] Work Phone: 03-18-2020 10:36-0500 Height 170.18 cm Tio Kirkpatrick LPN [facility] Work Phone: 03-04-2020 13:46-0500 BMI (Body Mass Index) 24.28 kg/m2 Tio Kirkpatrick LPN [facility] Work Phone: 03-04-2020 13:46-0500 Body Temperature 98.1 [degF] Tio Kirkpatrick LPN [facility] Work Phone: Comment on above: Method: Oral 03-04-2020 13:46-0500 Body weight 70.31 kg Tio Kirkpatrick LPN [facility] Work Phone: 03-04-2020 13:46-0500 BP Diastolic 82 mm[Hg] Tio Kirkpatrick LPN [facility] Work Phone: Comment on above: Patient Position: Sitting; Cuff Location : Left Arm; Cuff Size: Standard 03-04-2020 13:46-0500 BP Systolic 120 mm[Hg] Tio Kirkpatrick LPN [facility] Work Phone: Comment on above: Patient Position: Sitting; Cuff Location : Left Arm; Cuff Size: Standard 03-04-2020 13:46-0500 BSA (Body Surface Area) 1.81 m2 Tio Casimiro [facility] Internal Medicine Work Phone: 03-04-2020 13:46-0500 Height 170.18 cm Tio Casimiro [facility] Internal Medicine Work Phone: 03-04-2020 13:46-0500 Pulse (Heart Rate) 87 /min Tio Casimiro [facility] Com[facility] Work Phone: Comment on above: Pattern: Regular 03-04-2020 13:46-0500 Pulse Oximetry 96 % Solis Travon [facility] Internal Medicine Work Phone: Comment on above: Room air 03-04-2020 13:46-0500 Respiratory Rate 17 /min Tio Casimiro [facility] Internal Medicine Work Phone: Comment on above: Pattern: Unlabored 03-04-2020 13:46-0500 SaO2% (BldA) [Mass fraction] 96 % Tio Casimiro [facility]; [facility] Work Phone: Comment on above: Room air 02-29-2020 10:48-0400 BMI (Body Mass Index) 24.28 kg/m2 [facility] Internal Medicine Work Phone: 02-29-2020 10:48-0400 Body Temperature 99.6 [degF] [facility] Work Phone: Comment on above: Method: Thermal Scan 02-29-2020 10:48-0400 Body weight 70.31 kg [facility] Medicine Work Phone: 02-29-2020 10:48-0400 BSA (Body Surface Area) 1.81 m2 [facility] Medicine Work Phone: 02-29-2020 10:48-0400 Height 170.18 cm [facility] Internal Medicine Work Phone: 02-29-2020 10:10-0400 BMI (Body Mass Index) 24.28 kg/m2 Shonna Gravius [facility] Work Phone: Comment on above: no vs taken as this is phone encounter d ue to covid 02-29-2020 10:100400 Body weight 70.31 kg Shonna Aguirre [facility] Internal Medicine Work Phone: Comment on above: no vs taken as this is phone encounter d ue to covid 02-29-2020 10:100400 BSA (Body Surface Area) 1.81 m2 Shonna Aguirre [facility] Work Phone: Comment on above: no vs taken as this is phone encounter d ue to covid 02-29-2020 10:100400 Height 170.18 cm Shonna Aguirre [facility] Internal Medicine Work Phone: Comment on above: no vs taken as this is phone encounter d ue to covid 02-22-2020 10:110400 BMI (Body Mass Index) 24.28 kg/m2 Teagan Gillette [facility] Internal Medicine Work Phone: Comment on above: reported by pt 02-22-2020 10:110400 Body Temperature 97.9 [degF] Teaganreji Gillette [facility] Internal Medicine Work Phone: Comment on above: Method: Temporal reported by pt 02-22-2020 10:110400 Body weight 70.31 kg Teaganreji Gillette [facility] Internal Medicine Work Phone: Comment on above: reported by pt 02-22-2020 10:11-0400 BP Diastolic 81 mm[Hg] Teaganreji Gillette [facility] Internal Medicine Work Phone: Comment on above: Patient Position: Sitting; Cuff Location : Left Arm; Cuff Size: Standard reported by pt 02-22-2020 10:11-0400 BP Systolic 130 mm[Hg] Teaganreji Gillette [facility] Internal Medicine Work Phone: Comment on above: Patient Position: Sitting; Cuff Location : Left Arm; Cuff Size: Standard reported by pt 02-22-2020 10:11-0400 BSA (Body Surface Area) 1.81 m2 Teaganreji Gillette [facility] Internal Medicine Work Phone: Comment on above: reported by pt 02-22-2020 10:0400 Height 170.18 cm Teagan Leta [facility] Work Phone: Comment on above: reported by pt 02-05-2020 09:19-0400 BMI (Body Mass Index) 25.06 kg/m2 Tio Casimiro [facility] Work Phone: 02-05-2020 09:0400 Body Temperature 97.6 [degF] Tio Casimiro [facility] Work Phone: Comment on above: Method: Oral 02-05-2020 09:040 Body weight 72.58 kg Tio Casimiro [facility] Internal Medicine Work Phone: 02-05-2020 09:19-0400 BP Diastolic 76 mm[Hg] Tio Casimiro [facility] Work Phone: Comment on above: Patient Position: Sitting; Cuff Location : Left Arm; Cuff Size: Standard 02-05-2020 09:19-0400 BP Systolic 122 mm[Hg] Tio Kirkpatrick [facility] Work Phone: Comment on above: Patient Position: Sitting; Cuff Location : Left Arm; Cuff Size: Standard 02-05-2020 09:19-0400 BSA (Body Surface Area) 1.84 m2 Tio Kirkpatrick [facility] Work Phone: 02-05-2020 09:0400 Height 170.18 cm Tio Kirkpatrick [facility] Work Phone: 12-14-2019 12:23-0400 BMI (Body Mass Index) 25.06 kg/m2 Shonna Gravius [facility] Work Phone: 12-14-2019 12:23-0400 Body weight 72.58 kg Shonna Gravius [facility] Work Phone: 12-14-2019 12:23-0400 BSA (Body Surface Area) 1.84 m2 Shonna Gravius [facility] Work Phone: 12-14-2019 12:230400 Height 170.18 cm Shonna Gravius [facility] Work Phone: 11-08-2019 12:02-0400 BMI (Body Mass Index) 25.06 kg/m2 Toi Kirkpatrick LPN [facility] Work Phone: 11-08-2019 12:02-0400 Body weight 72.58 kg Tio Kirkpatrick LPN [facility] Internal Medicine Work Phone: 11-08-2019 12:02-0400 BP Diastolic 82 mm[Hg] Tio Kirkpatrick LPN [facility] Work Phone: Comment on above: Patient Position: Sitting; Cuff Location : Left Arm; Cuff Size: Standard 11-08-2019 12:02-0400 BP Systolic 127 mm[Hg] Tio Kirkpatrick LPN [facility] Internal Medicine Work Phone: Comment on above: Patient Position: Sitting; Cuff Location : Left Arm; Cuff Size: Standard 11-08-2019 12:02-0400 BSA (Body Surface Area) 1.84 m2 Tio Kirkpatrick LPN [facility] Work Phone: 11-08-2019 12:02-0400 Height 170.18 cm Tio Kirkpatrick LPN [facility] Work Phone: 11-08-2019 12:02-0400 Pulse (Heart Rate) 85 /min Tio Kirkpatrick LPN [facility] Work Phone: Comment on above: Pattern: Regular 11-08-2019 12:02-0400 Pulse Oximetry 97 % [employer] [facility] Internal Medicine Work Phone: Comment on above: Room air 11-08-2019 12:02-0400 Respiratory Rate 16 /min Tio Kirkpatrick LPN [facility] Internal Medicine Work Phone: Comment on above: Pattern: Unlabored 11-08-2019 12:02-0400 SaO2% (BldA) [Mass fraction] 97 % Tio Kirkpatrick LPN [facility] Internal Medicine; [facility] Work Phone: Comment on above: Room air 10-30-2019 09:50-0400 BMI (Body Mass Index) 25.53 kg/m2 Shonna Aguirre [facility] Work Phone: Comment on above: no vs taken as this is phone encounter d ue to covid 10-30-2019 09:50-0400 Body weight 73.94 kg Shonna Aguirre [facility] Work Phone: Comment on above: no vs taken as this is phone encounter d ue to covid 10-30-2019 09:50-0400 BSA (Body Surface Area) 1.85 m2 Shonna Craigius [facility] Work Phone: Comment on above: no vs taken as this is phone encounter d ue to covid 10-30-2019 09:50-0400 Height 170.18 cm Shonna Craigius [facility] Work Phone: Comment on above: no vs taken as this is phone encounter d ue to covid 10-18-2019 13:54-0400 BMI (Body Mass Index) 25.53 kg/m2 Shonna Aguirre [facility] Work Phone: 10-18-2019 13:54-0400 Body Temperature 97.3 [degF] Shonna Aguirre [facility] Medicine Work Phone: Comment on above: Method: Temporal 10-18-2019 13:54-0400 Body weight 73.94 kg Shonna Aguirre [facility] Work Phone: 10-18-2019 13:54-0400 BP Diastolic 78 mm[Hg] Shonna Aguirre [facility] Work Phone: Comment on above: Patient Position: Sitting; Cuff Location : Left Arm; Cuff Size: Standard 10-18-2019 13:54-0400 BP Systolic 128 mm[Hg] Shonna Aguirre [facility] Work Phone: Comment on above: Patient Position: Sitting; Cuff Location : Left Arm; Cuff Size: Standard 10-18-2019 13:54-0400 BSA (Body Surface Area) 1.85 m2 Shonna Craigius [facility] Work Phone: 10-18-2019 13:54-0400 Height 170.18 cm Shonna Craigius [facility] Work Phone: 10-18-2019 13:54-0400 Pulse (Heart Rate) 76 /min Shonna Aguirre [employer] [facility] Work Phone: Comment on above: Pattern: Regular 10-18-2019 13:54-0400 Pulse Oximetry 98 % [employer] [facility] Work Phone: Comment on above: Room air 10-18-2019 13:54-0400 Respiratory Rate 16 /min Shonna Aguirre [employer] [facility] Work Phone: Comment on above: Pattern: Unlabored 10-18-2019 13:54-0400 SaO2% (BldA) [Mass fraction] 98 % Shonna Aguirre [employer] [facility]; [facility] Work Phone: Comment on above: Room air Encounters Encounter Date Encounter Type Care Provider Facility Start: 12-19-2024 ambulatory Russ Sutherland Facility :[facility] Start: 12-16-2024 End: 12-18-2024 Refill Tania Bonilla MD Work Phone: Neurology Comment on above: Refill Request Start: 11-24-2024 End: 11-24-2024 Patient encounter procedure Russ Sutherland ME -[facility] Work Phone: Start: 11-24-2024 End: 11-24-[address] Solis Cool DO Work Phone: -[facility] Start: 11-24-2024 End: 11-24-2024 ambulatory Russirving Sutherland Facility:[facility] Start: 10-16-2024 End: 10-16-2024 Orders Only Codie Soto MD Work Phone: [facility] Comment on above: Brain lesion (Primar y Dx) Start: 10-13-2024 End: 10-13-2024 Telemedicine consultation with patient Codie Soto MD Work Phone: [facility] Start: 10-13-2024 End: 10-13-2024 ambulatory Codie Soto MD Work Phone: [facility] Comment on above: Brain lesion (Primar y Dx); Alexia; Paresthesia of both legs; Visual field defect; Blurry vision; Encounter for observation for suspected malignant neoplasm; Visual disturbance Start: 10-11-2024 End: 12-11-2024 Follow-up encounter Codie Soto MD Work Phone: [facility] Start: 10-11-2024 ambulatory SLOIS BAILEY GUTIÉRREZON Facility:[facility] Start: 10-11-2024 End: 10-11-2024 Subsequent hospital visit by physician Mri Radio Pending Sale To [facility] (I-Stat/1.5t) Work Phone: Radiology Comment on above: Brain lesion [G93.9] Start: 07-21-2024 End: 07-21-2024 ambulatory SOLIS BAILEY GUTIÉRREZON Facility:[facility] Start: 06-21-2024 End: 06-21-2024 ambulatory Tania Bonilla MD Work Phone: Neurology Comment on above: Recurrent seizures ( HCC) (Primary Dx) Start: 06-21-2024 End: 06-21-2024 Telemedicine consultation with patient Tania Bonilla MD Work Phone: Neurology Start: 04-24-2024 End: 04-24-2024 Orders Only Codie Soot MD Work Phone: Hematology/Oncology Comment on above: Brain lesion (Primar y Dx) Start: 04-14-2024 End: 04-14-2024 Telemedicine consultation with patient Codie Soto MD Work Phone: [facility] Start: 04-14-2024 End: 04-14-2024 ambulatory Codie Soto MD Work Phone: [facility] Comment on above: Brain lesion (Primar y Dx); Alexia; Seizures (HCC); Paresthesia of both legs; Lesion of brain; Confusion; Visual field defect; Speech disturbance, unspecified type; Neoplasm of uncertain behavior of brain, supratentorial (HCC); Brain mass Start: 04-12-2024 End: 04-12-2024 ambulatory SOLIS COOL Facility:[facility] Start: 02-08-2024 End: 02-09-2024 ambulatory Codie Soto MD Work Phone: [facility] Comment on above: Question aire for di sability Start: 01-28-2024 End: 01-28-2024 Patient encounter procedure Tania Bonilla MD Work Phone: Neurology Comment on above: Seizures (HCC) Start: 01-28-2024 End: 01-28-2024 ambulatory SOLIS AVALOS TRAVON Facility:[facility] Start: 01-28-2024 End: 01-28-2024 ambulatory NENA SMITH Facility:[facility] Start: 01-26-2024 End: 01-26-2024 ambulatory Annamaria Templeton APRN.TECHNOLOGY MANAGER Work Phone: [facility] [place] Comment on above: Brain lesion (Primar y Dx) Start: 01-26-2024 End: 01-26-2024 Telemedicine consultation with patient Annamaria Templeton TECHNOLOGY MANAGER Work Phone: [facility] Start: 01-17-2024 End: 01-17-2024 ambulatory SOLIS AVALOS TRAVON Facility:[facility] Start: 01-17-2024 End: 01-17-2024 Subsequent hospital visit by physician Mri Radio Pending Sale To [facility] (I-Stat/1.5t) Work Phone: Radiology Comment on above: Brain lesion [G93.9] Start: 12-22-2023 End: 12-22-2023 Patient encounter procedure Sujey Luong MD Work Phone: Neurology Comment on above: Seizures (HCC) (Prim anson Dx) Start: 12-03-2023 Orders Only Libertad lockett [employer].TECHNOLOGY MANAGER Work Phone: [facility] Comment on above: Seizures (HCC) (Prim anson Dx) Start: 12-02-2023 End: 12-02-2023 ambulatory Libertad Santiago APRN.TECHNOLOGY MANAGER Work Phone: Cerebrovascular Comment on above: Seizures (HCC) (Prim anson Dx); History of psychogenic nonepileptic seizure; Brain lesion Start: 12-02-2023 End: 12-02-2023 Telemedicine consultation with patient Libertad Santiago APRN.TECHNOLOGY MANAGER Work Phone: Cerebrovascular Start: 11-29-2023 Telephone encounter Codie Soto MD Work Phone: [facility] Comment on above: Seizure Call Appointment Start: 11-29-2023 End: 11-29-2023 Emergency department patient visit SOLIS COOL Facility:[facility] Start: 10-26-2023 Telephone encounter Codie Soto MD Work Phone: [facility] Comment on above: Jose week of 01/18 Start: 10-25-2023 Orders Only Codie Soto MD Work Phone: [facility] Comment on above: Brain lesion (Primar y Dx) Start: 10-20-2023 End: 10-20-2023 Telemedicine consultation with patient Codie Soto MD Work Phone: [facility] Start: 10-20-2023 End: 10-20-2023 ambulatory Codie Soto MD Work Phone: [facility] Comment on above: Brain lesion (Primar y Dx); Confusion; Visual field defect; Alexia; Lesion of brain; Speech disturbance, unspecified type; Seizures (HCC) Start: 10-19-2023 End: 10-19-2023 ambulatory SOLIS COOL Facility:[facility] Start: 10-19-2023 End: 10-19-2023 Subsequent hospital visit by physician Mri Radio Pending Sale To [facility] (I-Stat/1.5t) Work Phone: Radiology Comment on above: Brain lesion [G93.9] Start: 07-22-2023 Orders Only Codie Soto MD Work Phone: [facility] Comment on above: Brain lesion (Primar y Dx) Start: 07-21-2023 End: 07-21-2023 ambulatory Codie Soto MD Work Phone: [facility] Comment on above: Brain lesion (Primar y Dx); Visual field defect; Seizures (HCC); Confusion; Alexia; Paresthesia of both legs; Neoplasm of uncertain behavior of brain, supratentorial (HCC) Start: 07-21-2023 End: 07-21-2023 Telemedicine consultation with patient Codie Soto MD Work Phone: [facility] Start: 07-21-2023 End: 07-21-2023 Patient encounter procedure Triston Lozano MD Work Phone: [facility] Comment on above: 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); Brain lesion Start: 07-19-2023 End: 07-19-2023 Subsequent hospital visit by physician Mri Radio Pending Sale To [facility] (I-Stat/1.5t) Work Phone: Radiology Comment on above: Brain lesion [G93.9] Start: 06-18-2023 ambulatory Jim Garsia Work Phone: Infectious Disease Start: 06-09-2023 End: 06-09-2023 Patient encounter procedure Jim Pinedo MD Work Phone: Infectious Disease Comment on above: Brain lesion (Primar y Dx); Corpus callosum white matter abnormalities present on MRI; CSF abnormal; Abnormal gait Start: 04-28-2023 End: 04-28-2023 ambulatory Codie Soto MD Work Phone: [facility] Comment on above: Brain lesion (Primar y Dx); Visual field defect; Lesion of brain; Malignant neoplasm metastatic to brain (HCC) Start: 04-28-2023 End: 04-28-2023 Telemedicine consultation with patient Codie Soto MD Work Phone: [facility] Start: 03-30-2023 End: 03-30-2023 Patient encounter procedure Rich Gudino MD Work Phone: [facility] Comment on above: 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); Neuropathy Start: 03-26-2023 Orders Only Codie Soto MD Work Phone: [facility] Comment on above: Brain lesion (Primar y Dx) Start: 03-22-2023 End: 03-22-2023 Subsequent hospital visit by physician Americo Hernandez PA-C Work Phone: [facility] [id number] Comment on above: 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, 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] Start: 03-17-2023 Orders Only Codie Soto MD Work Phone: [facility] Comment on above: Brain lesion (Primar y Dx) Brain lesion (Primar y Dx); 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); Confusion; Visual field defect Start: 03-11-2023 Patient Update Heide Alcala Work Phone: [facility] Comment on above: Disability paperwork completed Start: 02-26-2023 Telephone encounter Heide cotto RN Work Phone: [facility] Comment on above: Labs/Lumbar puncture Start: 02-23-2023 Orders Only Codie Soto MD Work Phone: [facility] Comment on above: Brain lesion (Primar y Dx); 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) JOSE 1-2 weeks- mult iple appts Start: 02-18-2023 End: 02-19-2023 Patient encounter procedure Codie Soto MD Work Phone: [facility] Comment on above: 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, supratentorial (HCC) (Primary Dx); Brain lesion; Confusion; Alexia; Visual field defect Start: 02-18-2023 End: 02-18-2023 Subsequent hospital visit by physician Mri Radio Pending Sale To [facility] (I-Stat/1.5t) Work Phone: Radiology Comment on above: Neoplasm [D49.9] Start: 01-12-2023 End: 01-12-2023 Patient encounter procedure Americo Haney DO Work Phone: Infectious Disease Comment on above: Brain lesion (Primar y Dx); Diarrhea of presumed infectious origin Brain lesion (Primar y Dx) Start: 12-31-2022 Telephone encounter Eva Robertson RN [facility] Comment on above: JOSE MRI BRAIN AND L UMBAR SPINE WEEK OF 02/22/23 Start: 12-24-2022 End: 12-24-2022 ambulatory Codie Soto MD Work Phone: [facility] Comment on above: Lesion of brain (Pauline paula Dx); Confusion; 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); Speech disturbance, unspecified type; Alexia; Visual field defect Start: 12-24-2022 End: 12-24-2022 Telemedicine consultation with patient Codie Soto MD Work Phone: [facility] Start: 12-23-2022 Telephone encounter Solis Shoaib lamy Travon DO Work Phone: NOC Comment on above: Follow Up Phone Call (All clear.) Start: 12-18-2022 Telephone encounter Triston ureña MD Work Phone: [facility] Comment on above: Results Start: 12-17-2022 E-mail encounter rosie m caregiver Codie Soto MD Work Phone: [facility] Start: 12-17-2022 Follow-up encounter Codie Soto MD Work Phone: [facility] Comment on above: Hospital follow up a ppointment Start: 12-15-2022 End: 12-15-2022 Patient encounter procedure David D Lystad MD Work Phone: Ophthalmology Comment on above: Brain lesion (Primar y Dx); Homonymous hemianopsia, right Start: 12-09-2022 End: 12-09-2022 Patient encounter procedure Codie Soto MD Work Phone: [facility] Comment on above: Lesion of brain (Pauline paula Dx); Speech disturbance, unspecified type; Glioma (HCC); Brain mass Start: 12-07-2022 End: 12-07-2022 Subsequent hospital visit by physician Mri Pending [facility] (I-Stat/1.5t) Radiology Comment on above: Glioma (HCC) [C71.9] Start: 11-27-2022 End: 11-27-2022 Patient encounter procedure Rad Pro DO Work Phone: Stroke Neurology Comment on above: Corpus callosum synd elfego (HCC) (Primary Dx) Start: 11-26-2022 End: 11-26-2022 Office outpatient visit 10 minutes Solis Cool DO Work Phone: [facility] Start: 11-25-2022 End: 11-25-2022 Subsequent hospital visit by physician Ct Pending Sale To [facility] (I-Stat) Work Phone: Cat Scan Comment on above: Lesion of brain [G93 .9] Start: 11-17-2022 End: 11-17-2022 ambulatory Codie Soto MD Work Phone: [facility] Comment on above: Brain mass (Primary Dx); Alexia; Lesion of brain; Speech disturbance, unspecified type; Visual field defect; Confusion Start: 11-17-2022 End: 11-17-2022 Telemedicine consultation with patient Codie Soto MD Work Phone: [facility] Start: 11-16-2022 Telephone encounter Christine STEWARD W Psychiatry Comment on above: Social Work Consulta tion Start: 11-12-2022 ambulatory Codie Soto MD Work Phone: [facility] Start: 11-12-2022 Chart abstracting Heide Dumont RN Work Phone: [facility] Comment on above: Chart prep/record Re view Glioma (HCC) (Primar y Dx) Start: 11-12-2022 End: 11-12-2022 Nursing evaluation of patient and report Antonia Weiss RN Work Phone: [facility] Comment on above: 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) Start: 11-12-2022 End: 11-12-2022 Patient encounter procedure Codie Soto MD Work Phone: [facility] Comment on above: Lesion of brain (Pauline paula Dx); Speech disturbance, unspecified type; Alexia; Confusion; Visual field defect Start: 11-06-2022 Telephone encounter Solis Cool DO Work Phone: [facility] Comment on above: Medication Question Start: 11-02-2022 End: 11-02-2022 Subsequent hospital visit by physician Mri 3 Radio Main Q (I-Stat/1.5t/3t) Work Phone: MRI Q Start: 11-02-2022 End: 11-02-2022 Admission to establishment Pacc Main 1 Work Phone: [facility] Start: 11-02-2022 End: 11-02-2022 ambulatory Pacc Main 1 Work Phone: Pre Anesthesia Comment on above: Pre-op evaluation (P rimary Dx); Glioma (HCC); Primary hypertension; Seizures (HCC); Asthma due to seasonal allergies; Coronary artery disease involving wiyot coronary artery of wiyot heart without angina pectoris; Gastroesophageal reflux disease without esophagitis Start: 11-02-2022 End: 11-02-2022 Preprocedural examination done Pacc Main 1 Work Phone: Pre Anesthesia Start: 11-02-2022 End: 11-02-2022 Nursing evaluation of patient and report Antonia Weiss RN Work Phone: [facility] Comment on above: 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 Farhana Cool Work Phone: [facility] Start: 10-22-2022 End: 10-22-[address] Solis Cool Work Phone: [facility] Work Phone: Start: 10-22-2022 End: 10-22-[address] Solis Cool Work Phone: [facility] Start: 10-21-2022 Telephone encounter Rad Pro DO Work Phone: Neuro Stroke Comment on above: Results triage (Internal ref erral ) Start: 10-16-2022 End: 10-16-2022 Office outpatient visit 15 minutes Solis Cool DO Work Phone: [facility] Start: 10-16-2022 End: 10-16-2022 Patient encounter procedure Lulú Merrill MA [facility] Start: 10-12-[address] More Cool Work Phone: [facility]-Physical Therapy Start: 10-05-2022 End: 10-05-[address] Solis Cool Work Phone: [facility] Start: 10-02-2022 ambulatory No Pcp Enid C Best Five Reviewed Start: 09-25-2022 End: 09-25-2022 Subsequent hospital visit by physician Mri Radio Pending Sale To [facility] (I-Stat/1.5t) Work Phone: Radiology Comment on above: Cerebral infarction, unspecified mechanism (HCC) [I63.9] Start: 09-14-2022 ambulatory Solis Cool DO Comp re[facility]ive Internal Med Start: 09-02-2022 End: 09-02-2022 Office outpatient visit 25 minutes Solis Cool DO Work Phone: [facility] Start: 09-02-2022 Review Solis alcala DO Work Phone: [facility] Start: 08-25-2022 End: 08-25-2022 Patient encounter procedure Rad Pro DO Work Phone: [facility] Comment on above: Arterial ischemic st roke (HCC) (Primary Dx); Cerebral infarction, unspecified mechanism (HCC) Start: 07-03-2022 End: 07-03-2022 Subsequent hospital visit by physician Mri Radio Pending Sale To [facility] (I-Stat/1.5t) Work Phone: Radiology Comment on above: Cerebral infarction, unspecified mechanism (HCC) [I63.9] Start: 06-29-2022 Telephone encounter Rad Pro DO Work Phone: [facility] Comment on above: Received Outside Med ical Records (Imported [facility] report into [employer]) Start: 06-26-2022 Telephone encounter Rad Pro DO Work Phone: [facility] Start: 06-25-2022 Telephone encounter Rad Pro DO Work Phone: [facility] Comment on above: Received Outside Med ical Records (Rec'd discharge summary from [facility] imported into [employer]) Start: 06-24-2022 End: 06-24-2022 Patient encounter procedure Rad Pro DO Work Phone: [facility] Comment on above: Arterial ischemic st roke (HCC) (Primary Dx); Cerebral infarction, unspecified mechanism (HCC) Start: 06-19-2022 End: 06-19-2022 Office outpatient visit 25 minutes Solis Cool DO Work Phone: [facility] Start: 06-11-2022 End: 06-12-2022 ambulatory CORRIE MANZANO APRN Facility:[facility] Start: 06-09-2022 Non-patient / Non-visit Dr. Farhana Cool Work Phone: [facility] Start: 06-09-2022 Non-patient / Non-visit Dr. Farhana Cool Work Phone: [facility] Start: 06-08-2022 Non-patient / Non-visit Dr. Farhana Cool Work Phone: [facility] Start: 06-08-2022 End: 06-09-2022 Evaluation and management of inpatient Dr. Solis Cool Work Phone: [facility] Start: 06-02-2022 Non-patient / Non-visit Dr. Farhana Cool Work Phone: [facility] Start: 06-02-2022 Non-patient / Non-visit Dr. Farhana Cool Work Phone: [facility] Start: 06-02-2022 End: 06-02-2022 Evaluation and management of inpatient Dr. Solis Cool Work Phone: [facility] Start: 06-02-2022 End: 06-02-[address] Solis Cool Work Phone: [facility] Work Phone: Start: 05-27-2022 End: 05-27-2022 Office outpatient visit 15 minutes Solis Cool DO Work Phone: [facility] Start: 05-26-2022 Review Solis alcala DO Work Phone: [facility] Start: 05-21-2022 End: 05-22-2022 ambulatory Elder BONDS MD Facility:[facility] Start: 04-02-2022 End: 04-02-2022 Office outpatient visit 10 minutes Solis Travon DO Work Phone: [facility] Start: 03-25-2022 End: 03-25-2022 ambulatory [facility] Work Phone: Start: 03-25-2022 End: 03-25-2022 Patient encounter procedure [facility]Out[facility] Start: 03-13-2022 End: 03-13-2022 Office outpatient visit 25 minutes Solis Travon DO Work Phone: [facility] Start: 11-29-2021 End: 11-30-2021 ambulatory SOLIS TRAVON Facility:[facility] Start: 10-30-2021 End: 10-31-2021 ambulatory CORRIE MANZANO APRN Facility:[facility] Start: 10-10-2021 End: 10-10-2021 Office outpatient visit 25 minutes Solis Travon DO Work Phone: [facility] Start: 10-10-2021 Review Solis Fearo n DO Work Phone: [facility] Start: 10-08-2021 End: 10-08-2021 Emergency department patient visit [facility]Emergency Department Start: 09-19-2021 End: 09-19-2021 Office outpatient visit 25 minutes Solis Travon DO Work Phone: [facility] Start: 03-14-2021 End: 03-14-2021 Office outpatient visit 25 minutes Solis Travon DO Work Phone: [facility] Start: 03-14-2021 End: 03-14-2021 Patient encounter status Solis Travon DO Work Phone: [facility] Start: 10-17-2020 End: 10-17-2020 Phone Encounter Solis Travon DO Work Phone: [facility] Start: 09-18-2020 End: 09-18-2020 Office outpatient visit 10 minutes Solis Cool DO Work Phone: [facility] Start: 07-22-2020 End: 07-22-2020 Phone Encounter Solis Zhou Data Collection Specialist al Medicine Start: 07-15-2020 End: 07-15-2020 Office outpatient visit 15 minutes Solis Cool [facility] Start: 07-08-2020 End: 07-08-2020 Office outpatient visit 15 minutes Solis Cool [facility] Start: 07-04-2020 End: 07-04-2020 Office outpatient visit 10 minutes Solis Cool [facility] Start: 07-03-2020 End: 07-03-2020 Office outpatient visit 10 minutes Solis Cool [facility] Start: 07-01-2020 End: 07-01-2020 Office outpatient visit 10 minutes Solis Cool [facility] Start: 06-28-2020 End: 06-28-2020 Office outpatient visit 25 minutes Solis Cool [facility] Start: 04-12-2020 End: 04-12-2020 Office outpatient visit 25 minutes Solis Cool [facility] Start: 03-22-2020 End: 03-22-2020 Office outpatient visit 15 minutes Solis Cool [facility] Start: 03-18-2020 End: 03-18-2020 Office outpatient visit 15 minutes Solis Cool [facility] Start: 03-04-2020 End: 03-04-2020 Annotation/Addendum Solis Cool [facility] Data [facility] Specialist [facility] Start: 03-04-2020 End: 03-04-2020 Office outpatient visit 15 minutes Solis Cool [facility] Start: 02-29-2020 End: 02-29-2020 Office outpatient visit 10 minutes Solis Cool [facility] Start: 02-29-2020 Review Solis Gutiérrezon Compreh ensive Internal Medicine Start: 02-29-2020 End: 02-29-2020 Office outpatient visit 15 minutes Solis Cool [facility] Start: 02-28-2020 Review Solis Travon Compreh ensive Internal Medicine Start: 02-22-2020 Review Solis Gutiérrezon Compreh ensive Internal Medicine Start: 02-22-2020 End: 02-22-2020 Office outpatient visit 15 minutes Solis Gutiérrezon [facility] Start: 02-22-2020 Review Solis Cool Compreh ensive Internal Medicine Start: 02-19-2020 End: 02-19-2020 Annotation/Addendum Solis Cool [facility] Data Collection Specialist al Medicine Start: 02-05-2020 End: 02-05-2020 Office outpatient visit 15 minutes Solis Cool [facility] Start: 01-18-2020 Review Solis Cool Compreh ensive Internal Medicine Start: 12-27-2019 End: 12-27-2019 Phone Encounter Solis Cool [facility] Data Collection Specialist al Medicine Start: 12-14-2019 End: 12-14-2019 Office outpatient visit 15 minutes Solis Travon [facility] Start: 11-09-2019 End: 11-09-2019 Phone Encounter Solis Cool [facility] Data Collection Specialist al Medicine Start: 11-08-2019 End: 11-08-2019 Patient encounter procedure Solis Cool DO Work Phone: [facility] Start: 11-08-2019 End: 11-08-2019 Periodic preventive med est patient 40-64yrs Solis Travon [facility] Start: 11-08-2019 Review Solis Cool Compreh ensive Internal Medicine Start: 10-30-2019 End: 10-30-2019 Office outpatient visit 15 minutes Solis Travon [facility] Start: 10-30-2019 End: 10-30-2019 Office outpatient visit 5 minutes Solis Travon [facility] Start: 10-26-2019 End: 10-30-2019 Phone Encounter Solisgerald Gutiérrezon [facility] Data Collection Specialist al Medicine Start: 10-18-2019 End: 10-18-2019 Office outpatient visit 25 minutes Solis Travon [facility] Start: 02-26-2017 End: 02-26-2017 Ambulatory Michael Clement Facility:[place] Start: 02-24-[address] [facility] Fac[facility]:[place] Patient encounter procedure Tio Kirkpatrick LPN [facility]; [facility] Work Phone: Patient encounter procedure Radha Mcadams LPN [facility]; [facility] Work Phone: Patient encounter procedure Lulú Merrill MA [facility]; [facility] Work Phone: Patient encounter procedure Shonna Aguirre CMA [facility]; [facility] Work Phone: Patient encounter procedure Shonna Aguirre CAN TOP SETTER [facility]; [facility] Work Phone: Patient encounter procedure Tio Kirkpatrick [facility]; [facility] Work Phone: Patient encounter procedure Tio Kirkpatrick [facility]; [facility] Work Phone: Patient encounter procedure Rachel Marlon [facility]; [facility] Work Phone: Patient encounter procedure Darryl Kennedy [facility]; [facility] Work Phone: Patient encounter procedure Darryl Kennedy [facility]; [facility] Work Phone: Patient encounter procedure Fran Lopez [facility]; [facility] Work Phone: Patient encounter status Daren Cool DO Work Phone: [facility]; [facility] Work Phone: Comment on above: no pap smear Patient encounter status Shonnagloria Prieto MA [facility]; [facility] Work Phone: Comment on above: no pap smear Patient encounter status Shonna Craigjadyn Prieto MA [facility]; [facility] Work Phone: Comment on above: no pap smear Patient encounter status Tio Kirkpatrick INTEGRATION DEVELOPER [facility]; [facility] Work Phone: Comment on above: no pap smear Patient encounter status Tio Kirkpatrick [facility]; [facility] Work Phone: Comment on above: no pap smear Patient encounter status Rachel Marlon INTEGRATION DEVELOPER [facility]; [facility] Work Phone: Comment on above: no pap smear Patient encounter status Darryl Prieto MA [facility]; [facility] Work Phone: Comment on above: no pap smear Patient encounter status Darryl Prieto MA [facility]; [facility] Work Phone: Comment on above: no pap smear Patient encounter status Lulú Merrill MA [facility]; [facility] Work Phone: Comment on above: no pap smear Patient encounter status Fran Lopez LPN [facility]; [facility] Work Phone: Comment on above: no pap smear Procedures Date Procedure Procedure Detail Performing Clinician Start: 10-11-2024 Mri brain brain stem w/o w/contrast material Codie Soto MD Work Phone: Start: 01-17-2024 Mri brain brain stem w/o w/contrast material Codie Soto MD Work Phone: Start: 10-19-2023 Mri brain brain stem w/o w/contrast material Codie Soto MD Work Phone: Start: 07-19-2023 Mri brain brain stem w/o w/contrast material Codie Soto MD Work Phone: Start: 03-22-2023 FLOW CYTOMETRY FOR LEUKEMIA/LYMPHOMA (FCLL) Codie Soto MD Work Phone: Start: 03-22-2023 FLOW CYTOMETRY FOR LEUKEMIA/LYMPHOMA (FCLL) PERFORMABLE Codie Soto MD Work Phone: Start: 03-22-2023 FLOW CYTOMETRY FOR LEUKEMIA/LYMPHOMA (FCLL) REFLEX Codie Soto MD Work Phone: Start: 02-18-2023 End: 02-18-2023 Mri brain brain stem w/o w/contrast material Rad Pro DO Work Phone: Start: 02-12-2023 End: 02-12-2023 Inital Evaluation (1) - PT Procedure Note: See Note; NOTES: [facility] Physical Therapy [facility] [address] [place] [address] [address] [place] [address] / REHABILITATION SERVICES INITIAL EVALUATION MR#: [id number] Acct: [id number] Name: JOSIE LANDIS Rep #: [id number] : 1965 57 From: Shelton Wilson DPT, OCS, CSCS Referring DrZack: Status: REG RCR Insurance: [employer] BENEFIT PLAN [facility] Patient's Visit Information Visit Information Visit Information: JOSIE LANDIS is a 57 year old F referred to Physical Therapy by RAD PRO with a diagnosis of 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 Date of Evaluation: 02/12/23 Physical Therapist: Shelton Wilson DPT, OCS, CSCS Visit Plan Frequency: 3x /Week Duration: 4-6 Weeks Plan: 3x/week for 4-6 weeks 1. weight shift confidence and balance exercise to gait speed and confidence 2. overall body posture, core, LE strength ex to I gym or home based on patient desire. Energy conservation as needed and encourage appropriate diet and sleep habits and being more active generally. Subjective Subjective: CVA may and left with [place] blindness. Then they found a brain lesion and sent to [facility]. Overall balance does not feel good and weak. they are not sure what the brain lesion is but is having more MRIs and being doctored for that. Has had multiple MRIs and petscans and catscans and blood work and spinal taps. Saw spine surgeon and delilah is from eye problems but feels like she is getting weaker. Has 3 stents in her heart. 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 Now spends day on couch, basic of cooking and cleaning take all her strength. Bending is tough strength araujo. OT has her doing bands at home. But she gets done at grocery store adn she is worn out. Eating is going OK, getting plenty chicken protein. Sleep is OK getting 6 hrs at night and nap in afternoon for 3 hours. No leg hours. Does steps throughout day to get to bathroom. Takes vitamins. Hobbies: no energy to do anything. Objective Objective: Walks I slowly with short steps into PT . Trasnfers with UE I, steps require railing for safety. not confident shifting weight, can stoop and recover I. LB AROM WFL core strength ext 3 and flexion 3 hip strength 3+ abd and ext adn flexion with opposite IR and ROM WNL knee flexiona nd extension 4- B and ROM WFL. Ankles ROM WNL, strength 4- coordination WFL to reciprocal toe tap sensation LE WNL to gross lgiht touch. reflexes 2/3 patella and achilles Balance/Special Test Scores Functional Gait Assessment Score: 24 % Disability: 20.0000 Lower Extremity Functional Score: 43 Goals Goal 1:: Clean house without feeling warn out Goal Time Frame: 4-6 Weeks Goal 2:: Less than 1 hr nap during the day Goal Time Frame: 4-6 Weeks Goal 3:: Pt walk through grocery store without fatigue Goal Time Frame: 4-6 Weeks Goal 4:: FGA Goal Time Frame: 4-6 Weeks Goal 5:: I appropr HEP or gym program equipment operator intermodal yard for strength and balance Goal Time Frame: 4-6 Weeks Goal 6:: 60 LEFS Rehabilitation Potential Physical Therapy Diagnosis: weakness and imbalance form sedentarism, brain lesion and stroke effecting mood and funciton/social Rehabilitation Potential: Fair Anticipated Interventions Patient/Client Instruction: Educate patient on: Condition and Plan of Care For the Purpose of:: To decrease swelling/inflammation, To improve nutrient delivery to tissue, To improve muscle performance and motor function, To increase tolerance to activity/condition/position , To improve ability of physical actions for home/community/work/leisure and To improve gait and locomotor functions Therapeutic Exercise to Include: Strength training, Balance training and Gait and locomotor training For the Purpose of:: To decrease pain, To increase ROM, To improve nutrient delivery to tissue, To improve muscle performance and motor function and To increase tolerance to activi ty/condition/position Text: Thank you for the opportunity to evaluate your patient. For Medicare and Medicare HMO plans, please review the plan of care and approve it. It will need to be FAXED BACK to us at [phone] for Medicare purposes. For Medicare only, by signing this I certify the plan of care. Please let me know if there are questions or concerns regarding this plan of care. Physician Signature: Date: <Electronically signed by Shelton Wilson DPT, OCS, CSCS> 02/12/23 7306 CC: Dr. Solis Cool, DO; RAD PRO; RAD PRO EBG Signed Solis Cool DO Work Phone: Start: 02-08-2023 End: 02-08-2023 OT D/C Summary Procedure Note: See Note; NOTES: [facility] Occupational Therapy [facility] [place] [address] / REHABILITATION SERVICES DISCHARGE SUMMARY MR#: [id number] Acct: [id number] Name: JOSIE LANDIS Rep #: [id number] : 1965 57 From: Philomena BANUELOS/Casey, CHT Referring DrZack: Status: REG RCR Eval Date: Discharge Date: Discharge Summary D/C Summary: It has been my pleasure to treat JOSIE LANDIS under orders from RAD PRO, for the diagnosis of Acute CVA for a total of 19 visit(s). Please see the following information for a summary of their discharge status. Overall Improvement % Improvement: 90 Objective Objective/Function: right wood model maker strength 65# increase from 57# left wood model maker strength 50# increase from 47# right lateral pinch 18# increase from 8# left lateral pinch 18# increase from 6# right tripod pinch 12# increase from 6# left tripod pinch 14# increase from 8# right tip pinch 10# increase from 5# left tip pinch 10# increase from 6# pt demo meeting goals with strength pt reports she is IND with bathing/dressing unable to drive to do dx. does carry laundry down the stairs for her due to her vison deficits. pt will initiate PT for balance. pt agrees to d/c from OT with HEP. Goals Patient Goals: Return to Work and Improve Visual/Perceptual Skills Goal:: Pt will demonstrate independence with compensatory techniques for visual loss and upper body tremors to assist with independence with ADLs. ( goal met) Goal:: Pt will be independent with simple and gentle home exercise program (within her lifting and movement restrictions) to maintain functional strength for activates of daily living, evidenced by increased wood model maker strength by 2# each hand. ( goal met) Goal:: Pt will improve visual attention and visual working memory evidenced by the ability to complete various simulated functional tasks such as reading clocks, address writing and identification, etc with 80% accuracy over measured trials. ( goal is met) Goal:: Pt will appropriately identify numbers in a number scramble worksheet including numbers 3,5, 8 with 80% accuracy on at least 3 occasions. (Goal meet 10/07/22) Goal:: Pt will improve oculomotor coordination and strength, evidenced by completion of visual saccades worksheets with 90% accuracy on at least 3 separate occasions. (Goal meet 10/07/22) Goal:: Pt will improve oculomotor strength and endurance evidenced by participation in 20-30 minutes of visual exercises (visual pursuits, saccades, word finding, ext) while maintaining 90% accuracy with all worksheets/exercises. ( Plan Plan: d/c D/C Information Discharge Comments: pt was seen for 19 OT sessions- pt made gains with her strength and has learned compensatory erendira, for tremor and visual deficit. pt agrees to D/c and states she will cont. with her HEP- and will initiate PT for balance. d/c sentence: If there are questions or concerns regarding this patient's occupational therapy, please fell free to call me at [phone]. Thank you for the referral of this patient. Sincerely, Philomena Paris, OTR/Casey, CHT <Electronically signed by Philomena BANUELOS/Casey, ADONIST> 02/08/23 1600 CC: Dr. Solis Cool, ; RAD PRO; RAD PRO MK Signed Solis Cool DO Work Phone: Start: 01-19-2023 End: 01-19-2023 SP/HP.SPREEV Procedure Note: See Note; NOTES: [facility] Speech Pathology [facility] [address] [place] [address]. [address] [place] [address] / REEVALUATION / MEDICARE RECERTIFICATION SPEECH THERAPY MR#: [id number] Acct: [id number] Name: TOMMYROMINAJOSIE TERESA Rep #: [id number] : 1965 57 From: Roque Rojas M.A., [facility] Referring Dr.: OUT OF TOWN DOCTOR Insurance: [employer]IC BENEFIT PLAN AMEYA History History Date of Eval: 06/23/22 Attending Doctor: RAD PRO Referring Doctor: RAD PRO Smoking Status: Current every day smoker Hx Tobacco Use: No Pain Is pain an issue with your current prescribed condition?: No Personal Preferred language: Trinidadian Patient Allergies Allergies Allergies: Allergies adhesive tape Allergy (Verified 10/20/22 11:22) Hives aspirin [ASA] Allergy (Verified 10/20/22 11:22) Other budesonide [From Symbicort] Allergy (Verified 10/20/22 11:22) Anaphylaxis formoterol [From Symbicort] Allergy (Verified 10/20/22 11:22) Anaphylaxis latex Allergy (Verified 10/20/22 11:22) Hives Penicillins [PCN] Allergy (Verified 10/20/22 11:22) Hives Previous/Current Goals Goals 1-5 Previous Goal #1: Josie will recall information provided in paragraphs of increasing length and answer questions about the material at 80% accuracy given occasional cues. Goal 1 Status: GOAL WILL BE MODIFIED: Recall of 5-8 sentences of information was 80%. Josie reported that she has always had difficulty with comprehension of information she read herself. Immediate recall is good. Delayed recall is significantly reduced. Previous Goal #2: Josie will verbalize an understanding of recall strategies and use as needed with minimal cues on 4/5 trials on 2/3 consecutive sessions. Goal 2 Status: GOAL CONTINUES: Patient was given written list of strategies and can list 1-2 independently. She does use a calendar for appointments. Goal will continue for recall of medical and personal material (due dates for paperwork, birthdays, etc). Continued cues are needed for her to use strategies. Previous Goal #3: Josie will read information in sentences and short paragraphs, either silently or out loud, for reading comprehension demonstrated by answering questions or retelling information with 80% accuracy on 2/3 consecutive sessions. Goal 3 Status: GOAL CONTINUES: Josie's accuracy is 50% with reading it out loud. Reading is often slow and halting which impacted her ability to comprehend while reading verbally. The focus was more on actually reading the words instead of comprehension. Previous Goal #4: Josie will use anomia strategies on 4/5 trials during conversation with minimal cues on 2/3 consecutive sessions. Goal 4 Status: GOAL MET. Josie no longer has word finding errors in general conversation. She stated that it happens with new people and medical topics. ( The only new people she reported was physicians). She has difficulty with medical terms and she was advised to write them down or use my chart to recall them. Initially, she had several times of anomia per session and had slower halting speech. She has hesitations in her communication that it no longer noted. Objective Cog/Ling/Com Test Administered Rhjgxobyk-Nwdtshsaga-Ptlipx ication Assessment Administered: Yes Xscbepsqo-Wfbrjypfzu-Fijhel ication Assessment: Cognitive ??? Linguistic skills were evaluated using patient/family interview, skilled observation and informal evaluation through tasks completed by the patient. Orientation Orientation: Person, Place, Date, Day, Birthdate and Medical Diagnosis Reading Comprehension Words: WNL Phrases: WNL Sentences: Mild Oral Reading Words: WNL Phrases: WNL Sentences: Mild Paragraphs: Mild Recall Repeating Words: 100% Repeating Sentences: 90% Percent recall of conversational details: 50 Comments: Delayed recall of information is significantly reduced. Medication Reading a medication label: WFL Correctly stating instructions of medications: WFL Completing medications independently: WFL Problem Solving Simple: WNL CLQT CLQT CLQT Administered: Yes CLQT: Cognitive Linguistic Quick Test (CLQT) is a criterion - referenced assessment designed for adults between the ages of 18 and 89 with known or suspected neurological dysfuntions. The CLQT is to assess strength and weaknesses in five cognitive domains. Severity ratings are within normal limits, mild, moderate, severe deficits. The subtests are as follows: Date: 01/19/23 Attention Attention: Mild Memory Memory: WNL Executive Functions Executive Functions: WNL Language Language: WNL Visuospatial Skills Visuospatial Skills: Mild CLQT Comments Analysis: -: Josie has visual deficits with lateral parts of vision missing ( per the patient) which impacted her abilities on the attention and visuospatial subtests. Overall, she did well on this test. She met all the cut criterion scores except for symbol trails and mazes. Her recall was immediately done on this test. Her recall for delayed is not as good as immediate recall during daily life. Reference: Neuro-QoL instrument Radiation Oncology Patient Plan Plan Plan: Speech therapy is warranted for cognitive deficits and language deficits which are impacting her ability to function in her daily activities including employment, social and medical information. Recommendations Treatment Warranted: Yes Treatment Warranted: Receptive/ Expressive Language and Cognition Progress Prognosis: Good Frequency Frequency: 1x/Week Duration: 6 Months Visits in this POC: 24 Goals that are Established Determination:: Goals will be added/modified as deemed necessary and appropriate. Therapy will be discontinued when results of re-evaluation indicate therapy is no longer needed or lack of progress has been documented. Goal #1-5 Goal #1: Josie will recall information provided in paragraphs of increasing length and answer questions about the material at 80% accuracy given occasional cues with delays of increasing length (starting with 5 minutes and increasing time if accuracy remains good). Goal #2: Josie will verbalize an understanding of recall strategies and use as needed with minimal cues on 4/5 trials on 2/3 consecutive sessions. Goal #3: Josie will read information in 2-5 paragraphs, either silently or out loud, for reading comprehension demonstrated by answering questions or retelling information with 80% accuracy on 2/3 consecutive sessions. Goal #4: . <Electronically signed by Roque Rojas M.A., [facility]-INSURANCE CLAIMS CLERK> 01/19/23 0958 CC: Dr. Solis Cool, ; RAD PRO; RAD PRO JLM Signed For Medicare only, by signing this I certify the plan of care. _ Physicians Signature Date Solis Cool DO Work Phone: Start: 12-15-2022 Visual field xm uni/bi w/interp extended exam David Rios MD Work Phone: Start: 12-07-2022 Mri brain brain stem w/o w/contrast material Codie Soto MD Work Phone: Start: 12-01-2022 End: 12-02-2022 Re-Evalution OT Procedure Note: See Note; NOTES: [facility] Occupational Therapy [facility] [address] [place] [address] / REEVALUATION / MEDICARE RECERTIFICATION 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 THERAPY MR#: [id number] Acct: [id number] Name: JOSIE LANDIS Rep #: [id number] : 1965 57 From: Marley Samuels Referring Dr.: OUT OF TOWN DOCTOR Status: REG R CR Insurance: [employer]CH[employer]IC BENEFIT PLAN Eval Date: ANTHEM Re-Evaluation Intro: RAD PRO, It has been my pleasure to treat JOSIE LANDIS over the last 15 visits for Acute CVA. Please see the progress note below for an update on the occupational therapy plan of care! Subjective Subjective: Patient seen this date for re-evaluation to determine POC moving forward given medical change with brain lesion located deep middle of her brain. Patient had biopsy surgery of lesion 5 weeks ago (November 04) and is still finishing steroids after this surgery, thru next week. They are uncertain the etiology of the brain lesion. Patient has another MRI 12/07/22 and then 12/14/22 of brain and spine. Symptoms related to visual deficits are getting worse. Objective Objective/Function: Patient continues to present with overall weakness, decreased endurance, decreased cognitive functioning, and visual deficits. She would benefit from exercise routine for overall wellness as she continues to navigate through her medical condition and further testing (within her medical restrictions related to lifting/bending etc). Working on hand eye coordination and compensation for peripheral visual loss, working visual memory/attention to task, organization of materials. Patient is experiencing upper body tremors and overall fatigue as well. R wood model maker strength 40, L wood model maker 21#, R hand dominant R tripod pinch 6, L tripod 6 R lateral 12, L 10 R pincer 6, L 5 9 hole peg test: R hand 28.2 sec L hand 27.6 Plan Plan Frequency: 1x/Week Duration: 3-6 months Visits in this POC: 90 combined PT/OT/INSURANCE CLAIMS CLERK Plan: continue 1x/week, plan of care can be adjusted as needed considering patient's medical needs as she navigates through testing Goals Goals Patient Goals: Return to Work and Improve Visual/Perceptual Skills Goal:: Patient will demonstrate independence with compensatory techniques for visual loss and upper body tremors to assist with independence with ADL's. Goal:: Patient will be independent with simple and gentle home exercise program (within her lifting and movement restrictions) to maintain functional strength for activities of daily living. Goal:: Patient will improve visual attention and visual working memory evidenced by ability to complete various simulated functional tasks such as reading clocks, address writing and identification, etc with 80% accuracy over measured trials. Goal:: Patient will appropriately identify numbers in a number scramble worksheet including numbers 3, 5, and 8 with 80% accuracy on at least 3 separate occasions. (GOAL MET 10/07/22) Goal:: Patient will improve oculomotor coordination and strength, evidenced by completion of visual saccades worksheet with 90% accuracy on at least 3 separate occasions (GOAL MET 10/07/22). Goal:: Patient will improve oculomotor strength and endurance evidenced by participation in 20-30 minutes of visual exercises (visual pursuits, saccades, word finds, etc) while maintaining 90% accuracy will all worksheets/exercises. Anticipated Interventions Anticipated Interventions Anticipated Interventions: A/AAROM/PROM, Fine Motor Coord/Eddie, Neuro Reeducation, ADL Training and Education re assistive Equipment Re-Evaluation Ending Re-evaluation ending: Please do not hesitate to contact me at [phone] by phone or if you have questions or concerns regarding this new plan of care! Sincerely, Marley Samuels <Electronically signed by Marley Samuels> 12/01/22 4895 CC: Dr. Solis Cool, DO; RAD PRO TCL Signed For Medicare only, by signing this I certify the plan of care. _ Physicians Signature Date Solis Cool DO Work Phone: Start: 11-25-2022 Ct abdomen & pelvis w/contrast material Codie Soto MD Work Phone: Start: 11-25-2022 Ct thorax w/contrast material Codie Soto MD Work Phone: Start: 11-02-2022 Unlisted magnetic resonance procedure Carlos Jovel MD Work Phone: Start: 10-26-2022 End: 10-26-2022 Re-Evaluation - PT (1) Procedure Note: See Note; NOTES: [facility] Physical Therapy [facility] [address] [place] [address] / REEVALUATION / MEDICARE RECERTIFICATION PHYSICAL THERAPY MR#: [id number] Acct: [id number] Name: JOSIE LANDIS Rep #: [id number] : 1965 57 From: Grabiel Baltazar DPT Referring : Status:REG RCR Insurance: [employer] ME[employer]IC BENEFIT PLAN SATHYA PRO, It has been my pleasure to treat JOSIE LANDIS over the last 5 visits for Arterial Ischemic Stroke. Please see the progress note below for an update on the physical therapy plan of care! Subjective: Pt. came into PT this date and let me know she has a new diagnosis of brain cancer. She is going up to [facility] main campus. SHe has been noticing increased dizziness and increased imbalance. Objective/Function: We talked to her today about PT. We are going to put PT on hold currently as she is getting consults on her brain tumor. Pt. is to see specialist this week to determine best course of action at this point in time. Plan Plan: PT. on hold until patient figures best course of action with her new diagnosis of brain tumor and treatment. Balance/Gait/Functional tests - Balance/Special Test Scores Functional Gait Assessment Score: 22 % Disability: 26.6700 CATSIB Score (Max score 120 seconds): 106 Lower Extremity Functional Score: 19 TUG Test Time Seconds: 8.7 Tug Test: <10 sec.=free mobile 6 Minute Walk Test: 1362fee with out AD. Goals Goal 1:: LTG: Pt. to be I with HEP. Goal Time Frame: 2-4 Weeks Goal 2:: STG: Pt. to have improved CATSIB to score of 120 indicating normal static balance. Goal Time Frame: 2-4 Weeks Goal 3:: LTG: Pt. to have improved FGA to 30/30 indicating normal dynamic balance. Goal Time Frame: 4-6 Weeks Goal 4:: LTG: Pt. to complete all work related functional activities. Goal Time Frame: 4-6 Weeks Goal 5:: LTG: Pt. to be able to walk for 10 minutes without reports of fatigue allowing for increased tolerance to work related activities. Goal Time Frame: 4-6 Weeks Anticipated Interventions Patient/Client Instruction: Educate patient on: Condition, Plan of Care, Risk Factors, Benefits of Fitness Program For the Purpose of:: To improve health and function, To foster healthy habits, To facilitate caregiver knowledge, To improve self management, To prevent re-injury, To improve ability to perform tasks related to life management Therapeutic Exercise to Include: Strength training, Power training, Endurance training, Balance training, Coordination, Neuromotor development For the Purpose of:: To improve nutrient delivery to tissue, To increase oxygenation perfusion, To improve muscle performance and motor function, To improve ability to perform ADL's, To increase tolerance to activity/condition/position , To improve performance and independence with ADL's, To improve health of tissue, To decrease soft tissue restriction, To increase flexibility/ROM, To improve endurance, To improve balance Please do not hesitate to contact me at [phone] by phone or if you have questions or concerns regarding this new plan of care! Sincerely, AMARJIT RodríguezT <Electronically signed by Grabiel Baltazar DPT> 10/26/22 2743 CC: Dr. Solis Cool DO; RAD [facility] CLS Signed For Medicare only, by signing this I certify the plan of care. _ Physicians Signature Date Solis Cool DO Work Phone: Start: 10-22-2022 End: 10-22-2022 Echo Transesophageal (LUKE) Procedure Note: See Note; NOTES: [facility] [address] [place] [address] Echo Transesophageal (LUKE) 10/22/22 1055 MR#: [id number] Acct: [id number] Name: JOSIE LANDIS Rep #: [id number] : 1965 57 From: William Shine MD Attending Dr: José Luis Stauffer, APPRENTICESHIP TRAINING REPRESENTATIVE-C Status: REG CLI Ordering Dr: José Luis Stauffer APPRENTICESHIP TRAINING REPRESENTATIVE APPRENTICESHIP TRAINING REPRESENTATIVE-C Date: 10/22/22 Location: CVS Sex: F C Admitted: Reason For Study: POSITIVE BUBBLE STUDY ON TTE, HX CVA. Medication LUKE probe 6VT-D (SN [id number]) passed without difficulty. No complications were noted. Cetacaine Topical [place] given X3 orally. Versed 2 mg given slow IVP. Fentanyl 50 mcg given slow IVP. Zofran 4 mg given slow IVP. Performed a rapid injection of agitated mix of 9 cc saline and 1cc air to assess for atrial septal defect. Left Ventricle Normal LV size. Left ventricular systolic function is normal. The estimated ejection fraction is 60 %. No regional wall motion abnormalities noted. Right Ventricle Normal RV size. Normal systolic function. Atria Cannot rule out tiny PFO. Normal left atrium. No thrombus is detected in the left atrial appendage. Normal right atrium. Mitral Valve Normal mitral valve. Mild (1+) eccentric mitral valve insufficiency. Tricuspid Valve Normal tricuspid valve. Mild (1+) tricuspid valve insufficiency. Aortic Valve Trisinus/trileaflet aortic valve. Trivial aortic valve insufficiency. Pulmonic Valve Normal pulmonic valve. Trivial pulmonic valve insufficiency. Vessels Normal aortic root. Normal arch. Pericardium No pericardial effusion. ECHO/Echo Transesophageal (LUKE) Interpretation Summary Normal LV size. Left ventricular systolic function is normal. The estimated ejection fraction is 60 %. Cannot rule out tiny PFO. No thrombus is detected in the left atrial appendage. Ordering Physician: José Luis Stauffer Referring Physician: Solis Cool Performed By: Rashida Lozano RDCS, RVT 10/22/22 1218 Date William Shine MD CC: APPRENTICESHIP TRAINING REPRESENTATIVE-C José Luis Stauffer; Dr. Solis Cool, DO Date Dictated: 10/22/22 1055 Date Transcribed: 10/22/221217 Physical Chemistry Teacher: Signed Solis Cool DO Work Phone: Start: 10-07-2022 End: 10-07-2022 Re-Evalution OT Procedure Note: See Note; NOTES: [facility] [address] [place] [address]. [address] [place] [address] / REEVALUATION / MEDICARE RECERTIFICATION 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 THERAPY MR#: [id number] Acct: [id number] Name: JOSIE LANDIS Rep #: [id number] : 1965 57 From: Marley Samuels Referring DrZack: Status: REG R Insurance: [employer] B[employer]AN Eval Date: SATHYA PRO, It has been my pleasure to treat JOSIE LANDIS over the last 12 visits for Acute CVA. Please see the progress note below for an update on the occupational therapy plan of care! Subjective: Arrived early this date. Reports she had follow up with project control manager, neurologist, and spine surgeon. She reports they still can't figure out why she lost her vision. She reports feeling like her vision has not gotten any better. She reports that her processing speed and problem solving has improved with things such as sudoku puzzles. She is still experiencing R sided peripheral vision loss and reports she is still having difficulty with letters, numbers, word recall, and reading an analog clock. Discussed possibly following up with pulp grinder or analyst business analysis to check inner ear function due to continued report of dizziness, ringing in ear, and balance difficulties. Objective/Function: Patient continues to present with deficits in vision, balance, word recall, short term memory, reading, and identfiying letters/numbers. She reports her vision and balance issues have not improved but she feels her cognitive processing and working memory have improved some although they are still areas of challenge for her. She completed a number scramble activity this date finding number 3, then 5 with 100% accuracy in a timely manner. She then completed a visual saccades exercise in 1 min and 59 sec with 100% accuracy. She than participated in a sudoku exercise with good attention to task but decreased working memory. Plan Frequency: 1x/Week Duration: 3-6 months Visits in this POC: 90 combined PT/OT/INSURANCE CLAIMS CLERK Plan: Continue POC 1x/week for 3-6 months depending on progress toward goals. Recommend patient follow up with pulp grinder or analyst business analysis. Goals - Goals Patient Goals: Return to Work, Improve Visual/Perceptual Skills Goal:: Patient will improve short term memory, processing speed, working memory, and visual attention evidenced by ability to complete various simulated functional tasks such as reading clocks, reading comprehension, address writing and identification, etc with 80% accuracy over measured trials. Goal:: Patient will appropriately identify numbers in a number scramble worksheet including numbers 3, 5, and 8 with 80% accuracy on at least 3 separate occasions. (GOAL MET 10/07/22) Goal:: Patient will improve oculomotor coordination and strength, evidenced by completion of visual saccades worksheet with 90% accuracy on at least 3 separate occasions (GOAL MET 10/07/22). Goal:: Patient will improve oculomotor strength and endurance evidenced by participation in 20-30 minutes of visual exercises (visual pursuits, saccades, word finds, etc) while maintaining 90% accuracy will all worksheets/exercises. Anticipated Interventions Anticipated Interventions: A/AAROM/PROM, Fine Motor Coord/Eddie, Neuro Reeducation, ADL Training, Education re assistive Equipment Please do not hesitate to contact me at [phone] by phone or if you have questions or concerns regarding this new plan of care! Sincerely, Marley Samuels <Electronically signed by Marley Samuels > 10/07/22 5956 CC: Dr. Solis Cool, DO; RAD PRO TCL Signed For Medicare only, by signing this I certify the plan of care. _ Physicians Signature Date Solis Cool DO Work Phone: Start: 10-05-2022 End: 10-08-2022 Cardiology Visit Report Procedure Note: See Note; NOTES: [facility] [address] [place] [address] OFFICE VISIT Date of Service: 10/05/22 MR#: [id number] Acct: [id number] Name: JOSIE LANDIS Rep #: [id number] : 1965 Provider: JULIO guillermo Age/Sex: 57/F Location: [facility] Status: Signed HPI HPI History of Present Illness Details: This is a 57-year-old female who presents the office today for a post hospital follow-up. She has a history of coronary disease. She underwent drug-eluting stent to mid RCA and proximal LAD on 05/13/2018 at [facility]. She had a heart catheterization on 05/21/2022 at [facility] that showed patent mid LAD stent, 40% proximal LAD stenosis, 60% in-stent restenosis of RCA with a normal IFR of 0.99, 85% mid circumflex stenosis, LMCA as angiographically normal, and OM1 as angiographically normal. She proceeded with drug-eluting stent to mid circumflex. She presented [facility] in May 2022 with chest pain. Her cardiac enzymes were negative. She underwent a pharmacologic stress test that was negative for ischemia and showed a preserved ejection fraction. She returned to [facility] in June 2022 for confusion noted over the last 6 days. She had an echocardiogram on 06/08/2022 that showed ejection fraction of 65%, no valvular concerns, and bubble contrast study positive for PFO. Her MRI showed changes that suggest demyelination versus acute ischemia. She underwent event monitor with Dr. Lopez in July 2022 that showed no dysrhythmia that includes no atrial fibrillation. She also has a past medical history that includes hypertension, hyperlipidemia, tobacco abuse, and COPD. She denies chest, arm, jaw, or neck discomfort. She denies palpitations. She denies bilateral lower extremity edema. She denies claudication. She denies shortness of breath with activity, shortness of breath at rest, orthopnea, or PND. She denies chronic cough. She denies significant, sudden weight gain. She denies lightheadedness, dizziness, near-syncope, or syncope. She denies blood in urine, blood in stool, or epistaxis. He denies fever with chills. She denies myalgia. She denies fatigue. Her exercise level has remained stable with PT and OT. Her Neurologist recommends LUKE to assess PFO. She states vision issues since CVA. She states difficulty with letter, short term memory, numbers, clocks, and dyslexia. Intake Vital Signs 06/09/22 15:29 10/05/22 10:05 10/05/22 10:05 Height 5 ft 7 in 5 ft 7 in 5 ft 7 in Weight: 179 lb 14.355 oz 180 lb BMI 28.1 BP 116/76 Blood Pressure Location Lt brachial Position Sitting Respiration 18 Pulse 72 Pulse Source Monitor Pulse Oximetry (%) 96 Intake Visit Reasons: STENT 05/25/ CONSULTED Rail Car Loader Required: No Is patient in pain?: No Allergies adhesive tape Allergy (Verified 10/05/22 10:05) Hives aspirin [ASA] Allergy (Verified 10/05/22 10:05) Other budesonide [From Symbicort] Allergy (Verified 10/05/22 10:05) Anaphylaxis formoterol [From Symbicort] Allergy (Verified 10/05/22 10:05) Anaphylaxis latex Allergy (Verified 10/05/22 10:05) Hives Penicillins [PCN] Allergy (Verified 10/05/22 10:05) Hives Medications albuterol sulfate 90 mcg/actuation aerosol inhaler 8.5 g inhalation DAILY breathing 07/05/20 [History Confirmed 10/05/22] clopidogrel 75 mg tablet 75 mg PO DAILY anti platelet 07/05/20 [History Confirmed 10/05/22] trazodone 50 mg tablet 400 mg PO QHS sleep 07/05/20 [History Confirmed 10/05/22] vilazodone 40 mg tablet (Viibryd) 40 mg PO DAILY mental health 10/08/21 [History Confirmed 10/05/22] alirocumab 75 mg/mL subcutaneous pen injector (Praluent Pen) 75 mg subcut Q14D cholesterol 06/02/22 [History Confirmed 10/05/22] aspirin 81 mg tablet,delayed release 81 mg PO DAILY heart health 06/02/22 [History Confirmed 10/05/22] bupropion HCl 150 mg tablet,12 hr sustained-release (Wellbutrin SR) 150 mg PO DAILY mental health 06/02/22 [History Confirmed 10/05/22] carbamazepine 200 mg tablet (Tegretol) 400 mg PO BID seizures 06/02/22 [History Confirmed 10/05/22] cariprazine 1.5 mg capsule (Vraylar) 1.5 mg PO DAILY mental health 06/02/22 [History Confirmed 10/05/22] isosorbide mononitrate 30 mg tablet,extended release 24 hr 30 mg PO DAILY heart 06/02/22 [History Confirmed 10/05/22] losartan 25 mg tablet 25 mg PO DAILY blood pressure 06/02/22 [History Confirmed 10/05/22] pantoprazole 20 mg tablet,delayed release 40 mg PO DAILY reflux 06/02/22 [History Confirmed 10/05/22] topiramate 100 mg tablet (Topamax) 100 mg PO BID seizures 06/02/22 [History Confirmed 10/05/22] melatonin 10 mg tablet 10 mg PO QHS SLEEP 06/08/22 [History Confirmed 10/05/22] PFSH Medical History (Updated 10/08/22 @ 12:58 by José Luis Stauffer NP, APPRENTICESHIP TRAINING REPRESENTATIVE-C) Anxiety and depression Bipolar 1 disorder Bradycardia, sinus CAD (coronary artery disease) Chest pain COPD (chronic obstructive pulmonary disease) GERD (gastroesophageal reflux disease) HLD (hyperlipidemia) HTN (hypertension) Tobacco abuse Surgical History (Updated 10/06/22 @ 12:40 by José Luis Stauffer NP, APPRENTICESHIP TRAINING REPRESENTATIVE-C) H/O: hysterectomy History of cholecystectomy History of heart artery stent History of [place] fundoplication Hx of tonsillectomy Family History (Reviewed 10/05/22 @ 10:25 by José Luis H Roof APPRENTICESHIP TRAINING REPRESENTATIVE, APPRENTICESHIP TRAINING REPRESENTATIVE-C) Mother CAD (coronary artery disease) Heart disease Hypertension Myocardial infarction Father CAD (coronary artery disease) CVA (cerebral vascular accident) Heart disease Hypertension Social History (Reviewed 10/05/22 @ 10:25 by José Luis Stauffer APPRENTICESHIP TRAINING REPRESENTATIVE, APPRENTICESHIP TRAINING REPRESENTATIVE-C) household members: spouse Smoking Status: Current every day smoker tobacco type: cigarettes alcohol intake: never substance use type: does not use ROS Const Const: Negative for fatigue, weakness, body ache, fever(s) or chills Eyes Eyes: Positive for change in vision ENT ENT: Positive for balance problems; Negative for dizziness or Nosebleed/epistaxis Cardio Chest Pain: No Palpitations: No Edema: None Muscle aches with walking: None Resp Respiratory: Negative for SOB with activity, SOB at rest, SOB orthopnea SOB lying down, Cough or paroxysmal nocturnal dyspnea GI GI: Negative nausea, vomiting blood/hematemesis, bright, red blood in stools or black,tarry stools : Negative for hematuria or frequent nighttime urination/ nocturia Musc Musc: Positive for balance problems; Negative for muscle aches/ myalgia Skin Skin: Negative non-healing lesions or rash Neuro Neuro: Negative for dizziness, lightheadedness, near syncope, syncope, orthostatic symptoms or weakness Endo Endo: Negative for fatigue Allergy Allergy/Immunology: Negative for rash Cardiology Exam Const Appearance: cooperative, healthy appearing, comfortable and no acute distress Nutritional Appearance: average body habitus and well nourished Orientation: alert, awake and oriented x3 Head Head: normal to inspection Ears: hearing grossly normal bilaterally Nose: external nose normal Face and Sinus: face symmetric Mouth: moist mucous membranes Eyes General: appearance normal, both eyes and all related structures Eyelids: eyelids normal EOM: EOM intact bilaterally Neck Neck: normal visual inspection and no JVD Carotids: normal carotid upstroke Chest Chest inspection: normal inspection of the chest, symmetric chest movement and normal respiratory effort; Negative cough Auscultation: Bilateral: Clear to Auscultation Cardio Rate: regular rate Rhythm: regular rhythm Heart sounds: S1 normal and S2 normal; Negative rub, gallop or murmur GI GI: normal to inspection Neuro General: patient alert, patient awake, patient oriented x3 and CN's II-XI intact bilaterally Skin Skin: no rashes or lesions noted Extremities Pulses: Normal: Right Posterior Tibial Pulse, Left Posterior Tibial Pulse, Right Radial Pulse and Left Radial Pulse Lower Extremity Edema: None: Bilateral Psych Psychological: normal affect Supplemental Info Supplemental Information Echocardiogram from 06/08/2022: Interpretation Summary Normal LV size. Left ventricular systolic function is normal. The estimated ejection fraction is 65 %. Bubble contrast study is positive for PFO. Stress test from 06/02/2022: Conclusion: Normal pharmacologic myocardial perfusion stress test. Preserved ejection fraction. Labs: LDL Cholesterol 20 mg/dL (0-130) HDL Cholesterol 53 mg/dL (40-) Cholesterol 95 mg/dL (200) Triglycerides 111 mg/dL (-199) Diagnostics: Electrocardiogram Echocardiogram Stress Test Stress Test Nuclear Medicine Chest X-Ray Pulmonary: No Data to Display Past Visits: Cardiology Visit 10/05/22 Assessment and Plan Assessment and Plan (1) Atherosclerosis of wiyot coronary artery of wiyot heart without angina pectoris: Status: Chronic Plan: She has a history of stenting to mid RCA and proximal LAD in March 2019 as well as drug-eluting stent to mid circumflex in May 2022. Her stress test in May 2022 was negative for ischemia. This appears stable. We will continue to monitor and not make any medication regimen changes. We will continue to promote risk factor and lifestyle modification. (2) HTN (hypertension): Status: Chronic Plan: Patient's blood pressure is well-controlled. We will continue to monitor. We will not make any medication regimen changes. (3) HLD (hyperlipidemia): Status: Chronic Plan: This is being followed with primary care provider. She will continue with Praluent injection. Her lipid panel on 06/09/2022 showed total cholesterol: 95, HDL: 53, LDL: 20, and triglycerides: 111. She was reminded of LDL goal for secondary prevention to be 70 and below. She will continue current medical therapy we will continue to monitor. (4) Tobacco abuse: Status: Chronic Plan: Patient continues to smoke. She received extensive education regarding the health benefits of smoking cessation. We will continue to support and encourage smoking cessation. (5) Acute cerebrovascular accident (CVA): Status: Acute Plan: She is currently being [facility] with [facility] neurology team. Her outside event monitor showed no atrial fibrillation. Her echocardiogram showed positive bubble contrast study for PFO. Her head/neck CTA from 06/08/2022 was negative. She states that neurology team wishes this to be evaluated further with a transesophageal echocardiogram to consider closure. Her case was reviewed with Dr. Shine on 10/06/2022. She was contacted over the phone on 10/08/2022 to acknowledge that our plan is to proceed with transesophageal echocardiogram and that further recommendations will be made based on results. She will continue Praluent, Plavix, and aspirin therapy. She will continue to follow with neurology team as well. Orders: Orders Echo Transesophageal (LUKE) Today I25.10 - Atherosclerotic heart disease of wiyot coronary artery without angina pectoris, I63.9 - Cerebral infarction, unspecified, R93.1 - Abnormal findings on diagnostic imaging of heart and coronary circulation Basic Metabolic Profile (BMP) Today I25.10 - Atherosclerotic heart disease of wiyot coronary artery without angina pectoris, I63.9 - Cerebral infarction, unspecified, R93.1 - Abnormal findings on diagnostic imaging of heart and coronary circulation Plan Details Additional Comments: Thank you for allowing us to participate in the patients plan of care, if you have any questions please do not hesitate to call. This note was generated using a voice recognition system and there may be incorrect words, spelling or punctuation that were not noted when reviewing the office note prior to saving. Portions of this documentation were copied and pasted from previous office visit notes to provide a cohesive continuity of the history. The note has been reviewed, edited, and updated, as necessary. Follow Up: Dr. Lopez ([place]- 30 day event monitor) PCP Lipids (Dr. Cool) Brain MRI- [facility] Neurologist ([facility]- [place]) Dr. Lopez Office Note ([place]- 2022?) [place] (GERD surgery- flap) 6 Months (APPRENTICESHIP TRAINING REPRESENTATIVE/PA) 12-15 Months (PLANNING ASSOCIATE) Coding Level of Care Code Off vis,est,level 4 Diagnoses Atherosclerosis of wiyot coronary artery of wiyot heart without angina pectoris I25.10 HTN (hypertension) I10 HLD (hyperlipidemia) E78.5 Tobacco abuse Z72.0 Acute cerebrovascular accident (CVA) I63.9 Coding Level of Care Code Off vis,est,level 4 Diagnoses Atherosclerosis of wiyot coronary artery of wiyot heart without angina pectoris I25.10 HTN (hypertension) I10 HLD (hyperlipidemia) E78.5 Tobacco abuse Z72.0 Acute cerebrovascular accident (CVA) I63.9 06/08/23 1300 <Electronically signed by José Luis Stauffer APPRENTICESHIP TRAINING REPRESENTATIVE APPRENTICESHIP TRAINING REPRESENTATIVE-C> Date José Luis Stauffer APPRENTICESHIP TRAINING REPRESENTATIVE APPRENTICESHIP TRAINING REPRESENTATIVE-C Cosigner Signature: Date (if applicable) CC: Dr. Solis Cool, DO Solis Cool DO Work Phone: Start: 09-25-2022 Mri brain brain stem w/o w/contrast material Rad Pro DO Work Phone: Start: 09-23-2022 End: 09-23-2022 Inital Evaluation (1) - PT Procedure Note: See Note; NOTES: [facility] Physical Therapy 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 Date of Evaluation: 09/14/22 Physical Therapist: Grabiel Baltazar DPT - Visit Plan Frequency: 2x /Week Duration: 6 Weeks Plan: Start with BLE coordination activities. Higher level dynamic balance. Add in multiple task balance activities. Promote progressive walking program. - Subjective Pt. is here today for her initial evaluation with diagnosis of Arterial Ischemic Stroke. Pt. reports having a CVA in 2022. Pt. has been seeing OT and ST over the past few months. She is noticing increased difficulty with short term memory loss, and some visual changes. She is also having some balance issues with walking and functional mobility. She does not use an AD, but has noticed balance loss. No falls, but reports being very cautious with her mobility. She work as the [employer], [place]. 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 Currently not driving due to her CVA. Pt does have a R sided visual cut resulting decreased R sided vision. Pt. is hopeful to regain all previous strength in order to get back to all recreational and work activities. - Objective POSTURE: Pt. has good posture in stance. PALPATION: Pt. has normal sensation in BLEs. Pt. reports no issues. NEURO: Pt. has has normal DTR of BLE. Pt. has normal sensation. Pt. has good LE proprioception and control of BLEs. ROM: Pt. has good ROM of BLEs. Pt. has slight tightness in B HS. MMT: Pt. has good strength in BLEs. Pt. has 5/5 throughout ankle and knees. 4+/5 B hips. GAIT: PT. ambulates well with some issues with changes of direction. Pt. tolerated has normal step length and good stability. - Balance/Special Test Scores Functional Gait Assessment Score: 22 % Disability: 26.6700 CATSIB Score (Max score 120 seconds): 106 Lower Extremity Functional Score: 19 TUG Test Time Seconds: 8.7 6 Minute Walk Test: 1362fee with out AD. - Goals Goal 1:: LTG: Pt. to be I with HEP. Goal Time Frame: 2-4 Weeks Goal 2:: STG: Pt. to have improved CATSIB to score of 120 indicating normal static balance. Goal Time Frame: 2-4 Weeks Goal 3:: LTG: Pt. to have improved FGA to 30/30 indicating normal dynamic balance. Goal Time Frame: 4-6 Weeks Goal 4:: LTG: Pt. to complete all work related functional activities. Goal Time Frame: 4-6 Weeks Goal 5:: LTG: Pt. to be able to walk for 10 minutes without reports of fatigue allowing for increased tolerance to work related activities. Goal Time Frame: 4-6 Weeks - Rehabilitation Potential Physical Therapy Diagnosis: Pt. has signs and symptoms consistent with CVA. She has subsequent imbalance and some coordination issues. She does have a R sided visual cut which is most likely adding to her imbalance. She would benefit from PT to work on higher level balance and multi task coordination activities. Rehabilitation Potential: Excellent - Anticipated Interventions Patient/Client Instruction: Educate patient on: Condition, Plan of Care, Risk Factors, Benefits of Fitness Program For the Purpose of:: To improve health and function, To foster healthy habits, To facilitate caregiver knowledge, To improve self management, To prevent re-injury, To improve ability to perform tasks related to life management Therapeutic Exercise to Include: Strength training, Power training, Endurance training, Balance training, Coordination, Neuromotor development For the Purpose of:: To improve nutrient delivery to tissue, To increase oxygenation perfusion, To improve muscle performance and motor function, To improve ability to perform ADL's, To increase tolerance to activity/condition/position , To improve performance and independence with ADL's, To improve health of tissue, To decrease soft tissue restriction, To increase flexibility/ROM, To improve endurance, To improve balance Thank you for the opportunity to evaluate your patient. For Medicare and Medicare HMO plans, please review the plan of care and approve it. It will need to be FAXED BACK to us at [phone] for Medicare purposes. For Medicare only, by signing this I certify the plan of care. Please let me know if there are questions or concerns regarding this plan of care. Physician Signature: Date: <Electronically signed by Grabiel Baltazar DPT> 09/23/22 1007 CC: Dr. Solis Cool, DO; RAD PRO CLS Signed Solis Cool DO Work Phone: Start: 07-03-2022 Mri brain brain stem w/o w/contrast material Rad Pro DO Work Phone: Start: 07-02-2022 End: 07-02-2022 OT General Evaluation Procedure Note: See Note; NOTES: [facility] Occupational Therapy [address] [place] [address] / REHABILITATION SERVICES INITIAL EVALUATION MR#: [id number] Acct: [id number] Name: JOSIE LANDIS Rep #: [id number] : 1965 [id number] From: Marley Samuels Referring Dr.: Dr. Solis Cool DO Status: REG RCR Insurance: [employer] Eval Date: ANTHEM Patient's Visit Information JSOIE LANDIS is a 56 year old F, referred to Occupational Therapy by Dr. Solis Cool DO, with a diagnosis of Acute CVA. Date of Evaluation: 06/22/22 Occupational Therapist: Marley Samuels - Subjective Arrived for OT evaluation, seen after speech evaluation. Referred to OT s/p a CVA, MCA. History of stents put in for cardiac reasons, she was acting loopy and confused after a stent procedure which led to more testing and eventually an MRI which indicated the MCA CVA. Admitted to hospital on Jun 08, discharged the next day on Jun 09 for CVA. 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 Lives with , 4 THE[place]ORE /c HR, split level 12 steps to go downstairs 12 steps with HR. Difficulty with reading, identifying numbers (difficulty with 3, 5, 8), memory/recall, and word finding. Has an upper right quadrant visual field cut. Saw eye doctor 2 weeks ago and will be getting glasses. Will be seeing neurologist Wednesday06/24/22 at the [facility]. Has to be able to lift 70 pounds from the ground for work. - ADLs Comments: independent with ADL's. sleep has been impacted from the stroke - ROM ROM Comments: Upper body ROM intact - Strength Patient Accounting Representative: R 57; L 47 Lateral Pinch: R 8; L 6 Tripod Pinch: R 6; L8 Tip-to-Tip Pinch: R 5; L 6 Strength Comments: able to lift box to/from the floor with 70# weight x 6 reps with good control and body form, no LOB or c/o dizziness or light headedness - Sensation Sensation Comments: some tingling from neck down to hands - reports its worse from long days of work. Likely from nerve compression - Visual/Perceptual Skills Visual Field Cut: Yes - R upper quadrant Comments: experiencing right upper quadruant visual field cut. Awaiting glasses from the eye doctor. Currently wears reading glasses. Difficulty with understanding where she is in space both just personally and when riding in a car (she gave the example that she was concerned her was crossing the center line of the road but he wasn't) Reporting some dizziness or light headedness with position change. Able to visually track with conjugate eye movements in all visual planes. Able to complete visual saccades without overshooting or undershooting. Some difficulty with coordinating convergence/divergence. - Cognitive Skills Follows Directions: Yes Oriented to (Check all that apply): Date Short Term Memory Impaired: Yes - difficulty remembering what happended day before Cognitive Comments: uses a printed calendar to help keep track of appts. Reports she feels her cognitive processing is slower. feeling cognitively overwhelmed at times but reports not feeling confused. decreased sense of time - Nine Hole Peg Right: 24.2 Left: 25.06 Comments: R hand dominant - Quick DASH-Disab of Arm,Shoulder Hand Quick DASH Score: 6.8175 - Goals Goal:: Patient will appropriately identify numbers in a number scramble worksheet including numbers 3, 5, and 8 with 80% accuracy on at least 3 separate occasions. Goal:: Patient will improve oculomotor coordination and strength, evidenced by completion of visual saccades worksheet with 90% accuracy on at least 3 separate occasions. Goal:: Patient will improve oculomotor strength and endurance evidenced by participation in 20 minutes of visual exercises (visual pursuits, saccades, word finds, etc) while maintaining 90% accuracy will all worksheets/exercises. - Rehabilitation General Assessment: Patient arrives s/p CVA with decreased balance, decreased memory, word recall, visual perception, and oculomotor strength and coordination. 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 She will participate in speech to address the cognition, memory, word recall, and reading. Recommend OT to address oculomotor strength and coordination and strategies to compensate for visual field cut. Send referral to PCP to request PT script. Rehabilitation Potential: Good - Anticipated Interventions A/AAROM/PROM, Fine Motor Coord/Eddie, Neuro Reeducation, ADL Training, Education re assistive Equipment - Visit Plan Frequency: 1x/Week Duration: 2 Months General Plan: recommend 1x/week 30 min sessions for 8 weeks to address oculomotor skills. May not need all 8 visits depending on progress. TEXT: Thank you for the opportunity to evaluate your patient. For Medicare and Medicare HMO plans, please review the plan of care and approve it. It will need to be FAXED BACK to us at [phone] for Medicare purposes. Please let me know if there are questions or concerns regarding this plan of care. Physician Signature: Date: <Electronically signed by Marley Samuels > 07/02/22 7312 CC: Dr. Blayne Hawley MD; Dr. Solis Cool DO TCL Signed For Medicare only, by signing this I certify the plan of care. _ Physicians Signature Date Solis Cool DO Work Phone: Start: 06-23-2022 End: 06-23-2022 SP/HP.SP.EV Procedure Note: See Note; NOTES: [facility] Speech Pathology [facility] [address] [place] [address]. [address] [place] [address] / REHABILITATION SERVICES INITIAL EVALUATION MR#: [id number] Acct: [id number] Name: JOSIE LANDIS Rep #: [id number] : 1965 56 From: Roque Rojas M.A., CCC-S LP Referring Dr.: Dr. Blayne Hawley MD Status: REG RCR Insurance: [employer] ANTHEM Visit History - Visit Info Date of Eval: 06/22/22 Visit: 1 Training Specialist: CHRIS - History Attending Doctor: Referring Doctor: Reason for Referral: STROKE/PT HAS RX Medical Diagnosis: Cognitive Deficits/ Language deficits Date of Onset of Diagnosis: 06/02/22 Previous speech therapy: Yes Results: In the hospital on 06/09/22. CLQT attention and visuospatial subtests were mild and language, executive function and memory with WFL. Language and executive function were *low average performance. 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 Anxiety and depression. Bipolar 1 disorder. CAD (coronary artery disease). COPD (chronic obstructive pulmonary disease). GERD (gastroesophageal reflux disease). HLD (hyperlipidemia). HTN (hypertension). Tobacco abuse Medications related to this diagnosis: trazodone 50 MG tablet. 400 mg PO QHS. clopidogrel 75 MG tablet. 75 mg PO DAILY. albuterol sulfate 8.5 GM HFA aerosol inhaler. 8.5 gm INHALATION DAILY. Label Comments: INHALE 2 PUFFS BY MOUTH EVERY 6 HOURS NEEDED. vilazodone [Viibryd] 40 mg Tablet. 40 mg PO DAILY. bupropion HCl [Wellbutrin SR] 150 mg Tablet Sustained-Release 12 Hr. 150 mg PO DAILY. isosorbide mononitrate 30 mg Tablet Extended Release 24 Hr. 30 mg PO DAILY. Hold Instructions: Resume on 06/10/22. With your project control manager regarding when to resume. clonazepam 0.5 mg Tablet. 0.5 mg PO BID. pantoprazole 20 mg Tablet,Delayed Release (Dr/Ec). 40 mg PO DAILY. carbamazepine [Tegretol] 200 mg Tablet. losartan 25 mg Tablet. 25 mg PO DAILY. Hold Instructions: Resume on 06/10/22. With your project control manager regarding when to resume. topiramate [Topamax] 100 mg Tablet. 100 mg PO BID. Vraylar 1.5 mg Capsule. 1.5 mg PO DAILY. aspirin 81 mg Tablet,Delayed Release (Dr/Ec). 81 mg PO DAILY. Praluent Pen 75 mg/mL Pen Injector. 75 mg SUBCUT Q14D. atorvastatin 80 mg tablet. 80 mg PO QHS. Label Comments: Take 1 tablet by mouth daily at bedtime. nicotine 21 mg/24 hr Patch 24 Hour. 1 patch TRANSDERMAL DAILY. metoprolol succinate 25 mg tablet extended release 24 hr. 12.5 mg PO DAILY. Label Comments: TAKE 1/2 TABLET BY MOUTH ONCE DAILY. melatonin 10 mg tablet. 10 mg PO QHS Smoking Status: Current every day smoker - Diagnosis Diagnosis: Mild to moderate cognitive deficits as well as mild expressive language deficits. - Pain Is pain an issue with your current prescribed condition?: No - Personal Preferred language: Trinidadian History - History Date of Eval: 06/22/22 Medical Diagnosis (from RX): Cognitive Deficits/ Language deficits Date of Onset of Diagnosis: 06/02/22 Previous speech therapy: Yes Results: In the hospital on 06/09/22. CLQT attention and visuospatial subtests were mild and language, executive function and memory with WFL. Language and executive function were *low average performance. 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 Anxiety and depression. Bipolar 1 disorder. CAD (coronary artery disease). COPD (chronic obstructive pulmonary disease). GERD (gastroesophageal reflux disease). HLD (hyperlipidemia). HTN (hypertension). Tobacco abuse Medications related to this diagnosis: trazodone 50 MG tablet. 400 mg PO QHS. clopidogrel 75 MG tablet. 75 mg PO DAILY. albuterol sulfate 8.5 GM HFA aerosol inhaler. 8.5 gm INHALATION DAILY. Label Comments: INHALE 2 PUFFS BY MOUTH EVERY 6 HOURS NEEDED. vilazodone [Viibryd] 40 mg Tablet. 40 mg PO DAILY. bupropion HCl [Wellbutrin SR] 150 mg Tablet Sustained-Release 12 Hr. 150 mg PO DAILY. isosorbide mononitrate 30 mg Tablet Extended Release 24 Hr. 30 mg PO DAILY. Hold Instructions: Resume on 06/10/22. With your project control manager regarding when to resume. clonazepam 0.5 mg Tablet. 0.5 mg PO BID. pantoprazole 20 mg Tablet,Delayed Release (Dr/Ec). 40 mg PO DAILY. carbamazepine [Tegretol] 200 mg Tablet. losartan 25 mg Tablet. 25 mg PO DAILY. Hold Instructions: Resume on 06/10/22. With your project control manager regarding when to resume. topiramate [Topamax] 100 mg Tablet. 100 mg PO BID. Vraylar 1.5 mg Capsule. 1.5 mg PO DAILY. aspirin 81 mg Tablet,Delayed Release (Dr/Ec). 81 mg PO DAILY. Praluent Pen 75 mg/mL Pen Injector. 75 mg SUBCUT Q14D. atorvastatin 80 mg tablet. 80 mg PO QHS. Label Comments: Take 1 tablet by mouth daily at bedtime. nicotine 21 mg/24 hr Patch 24 Hour. 1 patch TRANSDERMAL DAILY. metoprolol succinate 25 mg tablet extended release 24 hr. 12.5 mg PO DAILY. Label Comments: TAKE 1/2 TABLET BY MOUTH ONCE DAILY. melatonin 10 mg tablet. 10 mg PO QHS Smoking Status: Current every day smoker Hx Tobacco Use: No - Pain Is pain an issue with your current prescribed condition?: No Patient Allergies - Allergies Allergies adhesive tape Allergy (Verified 06/02/22 05:13) Hives aspirin [ASA] Allergy (Verified 06/02/22 05:13) Other budesonide [From Symbicort] Allergy (Verified 06/02/22 05:13) Anaphylaxis formoterol [From Symbicort] Allergy (Verified 06/02/22 05:13) Anaphylaxis latex Allergy (Verified 06/02/22 05:13) Hives Penicillins [PCN] Allergy (Verified 06/02/22 05:13) Hives Objective Cog/Ling/Com - Test Administered Mhzubnoof-Cofpepcsqj-Oqxrge ication Assessment Administered: Yes Hxlilqfpr-Qdxqnvghos-Ejvtuj ication Assessment: Cognitive ??? Linguistic skills were evaluated using patient/family interview, skilled observation and informal evaluation through tasks completed by the patient. - Orientation Orientation: Person, Place, Date, Birthdate, Medical Diagnosis - Answer Yes/No Questions Simple: WNL - Conversational Tasks Conversational Tasks: Mild Comments: Patient exhibited mild word finding deficits in conversation. - Oral Reading Words: Mild Sentences: Moderate Comments: Patient was able to read single words with slow production. Sentences were read word for word rather than fluently. - Recall Comments: Patient immediately recalled 12/17 details of a short paragraph. She uses a calendar for appointments. - Medication Reading a medication label: WNL Correctly stating instructions of medications: WNL - Numerical Skills Telling Time: Patient reported that numbers are difficult for her to copy from BP monitor to paper. She stated that she has increased difficulty wiith 8,3,5. - Problem Solving Simple: WNL - Executive Function Comments Comments: Patient reported that she able to manage her own medication with the use of a pill box. She is unable to drive at this time. She reported a upper right vision field cut ( on a clock from 12-3/4). Further assessment needed for higher level skill evaluation. Plan - Plan Plan: Speech therapy is warranted for cognitive deficits and language deficits which are impacting her ability to function in her daily activities including employment, social and medical information. - Recommendations Treatment Warranted: Yes Treatment Warranted: Receptive/ Expressive Language, Cognition - Progress Prognosis: Good - Frequency Frequency: 2x /Week Duration: 2 Months Visits in this POC: 16 - Goals that are Established Determination:: Goals will be added/modified as deemed necessary and appropriate. Therapy will be discontinued when results of re-evaluation indicate therapy is no longer needed or lack of progress has been documented. - Goal #1-5 Goal #1: Josie will recall information provided in paraph graphs of increasing length and answer questions about the material at 80% accuracy given occasional cues. Goal #2: Josie will verbalize an understanding of recall strategies and use as needed with minimal cues on 4/5 trials on 2/3 consecutive sessions. Goal #3: Josie will read information in sentences and short paragraphs, either silently or out loud, for reading comprehension demonstrated by answering questions or retelling information with 80% accuracy on 2/3 consecutive sessions. Goal #4: Josie will use anomia strategies on 4/5 trials during conversation with minimal cues on 2/3 consecutive sessions. Goal #5: Further assessment for high level executive functions. Education - Patient has Indicated that the Following Identified Educational Needs: None The Patient has indicated that they have no educational or learning abilities that may effect their care.: Yes - Patient Instruction Patient Education: Diagnosis, Treatment Plan Person Taught: Patient Response to teaching: Verbalize understanding <Electronically signed by Roque Rojas M.A., [facility]URANCE CLAIMS CLERK> 06/23/22 1251 CC: Dr. Blayne Hawley MD; Dr. Solis Cool, DO CELENA Signed Solis Cool DO Work Phone: Start: 06-08-2022 CT angiography of head and neck Dr. Solis Cool Work Phone: Start: 06-08-2022 End: 06-08-2022 Emergency Department Summary Procedure Note: See Note; NOTES: [facility] Medical Records Department [address] [place] [address] Emergency Department Summary 06/08/22 MR#: [id number] Acct: [id number] Name: JOSIE LANDIS Rep #: [id number] : 1965 56 From: Juan Daniel Dunham PCP: Dr. Solis Cool DO Status:REG ER Location: ED HPI History of Present Illness Chief Complaint: Confusion Informant: patient and spouse/S.O. Narrative Narrative: Patient presents referred in by her project control manager for [facility] for evaluation of confusion for the past 6 days. She reports she had a cardiac stent placed 2 and half weeks ago there. She is on aspirin and Plavix. Of note she states she had continued chest pain and was admitted a week ago here for monitoring with no interventions. She states chest pain has improved since. States after leaving she has been having confusion with forgetfulness. She states she has had trouble with speech and getting her words out. She has no stroke history. She denies urinary symptoms denies cough. Denies headache symptoms. She states she is taking her medications. She brought her paperwork from [facility], reviewed she had a new left circumflex stent that was 80% blocked decreased on the left 5%. She had a previous right RCA stent that is 60% blocked. She has a 40% proximal LAD from review of her drawings. Reports is had previous MRI in the past. [facility] Medical History Anxiety and depression Bipolar 1 disorder CAD (coronary artery disease) COPD (chronic obstructive pulmonary disease) GERD (gastroesophageal reflux disease) HLD (hyperlipidemia) HTN (hypertension) Tobacco abuse Home Medications albuterol sulfate 90 mcg/actuation aerosol inhaler 8.5 gm inhalation DAILY breathing 07/05/20 [History Last Taken Unknown] clopidogrel 75 mg tablet 75 mg PO DAILY anti platelet 07/05/20 [History Last Taken Unknown] trazodone 50 mg tablet 400 mg PO QHS sleep 07/05/20 [History Last Taken Unknown] vilazodone 40 mg tablet (Viibryd) 40 mg PO DAILY mental health 10/08/21 [History Last Taken Unknown] alirocumab 75 mg/mL subcutaneous pen injector (Praluent Pen) 75 mg subcut Q14D cholesterol 06/02/22 [History Last Taken Unknown] aspirin 81 mg tablet,delayed release 81 mg PO DAILY heart health 06/02/22 [History Last Taken Unknown] bupropion HCl 150 mg tablet,12 hr sustained-release (Wellbutrin SR) 150 mg PO DAILY mental health 06/02/22 [History Last Taken Unknown] carbamazepine 200 mg tablet (Tegretol) 200 mg PO BID seizures 06/02/22 [History Last Taken Unknown] cariprazine 1.5 mg capsule (Vraylar) 1.5 mg PO DAILY mental health 06/02/22 [History Last Taken Unknown] clonazepam 0.5 mg tablet 0.5 mg PO BID anxiety 06/02/22 [History Last Taken Unknown] isosorbide mononitrate 30 mg tablet,extended release 24 hr 30 mg PO DAILY heart 06/02/22 [History Last Taken Unknown] losartan 25 mg tablet 25 mg PO DAILY blood pressure 06/02/22 [History Last Taken Unknown] melatonin 10 mg tablet 10 mg PO QHS #30 tabs 06/02/22 [Rx Last Taken Unknown] pantoprazole 20 mg tablet,delayed release 20 mg PO DAILY reflux 06/02/22 [History Last Taken Unknown] topiramate 100 mg tablet (Topamax) 100 mg PO BID seizures 06/02/22 [History Last Taken Unknown] Allergy/AdvReac Type Severity Reaction Status Date / Time adhesive tape Allergy Hives Verified 06/02/22 05:13 aspirin [ASA] Allergy Other Verified 06/02/22 05:13 budesonide [From Symbicort] Allergy Anaphylaxis Verified 06/02/22 05:13 formoterol [From Symbicort] Allergy Anaphylaxis Verified 06/02/22 05:13 latex Allergy Hives Verified 06/02/22 05:13 Penicillins [PCN] Allergy Hives Verified 06/02/22 05:13 Family History Mother CAD (coronary artery disease) Heart disease Hypertension Myocardial infarction Father CAD (coronary artery disease) CVA (cerebral vascular accident) Heart disease Hypertension Surgical History H/O: hysterectomy History of cholecystectomy History of heart artery stent History of [place] fundoplication Hx of tonsillectomy Social History household members: spouse Smoking Status: Current every day smoker tobacco type: cigarettes alcohol intake: never substance use type: does not use ROS ROS ED Constitutional Constitutional ED: Denies chills, fever(s) or sweats Eyes Eyes: Denies change in vision ENT ENT ED: Denies dysphagia or sore throat Cardiovascular Cardiovascular: Denies chest pain, leg edema, palpitations or racing heartbeat Respiratory/Chest Respiratory/Chest: Denies cough, dyspnea or dyspnea on exertion Gastrointestinal Gastrointestinal: Denies abdominal pain, diarrhea, nausea or vomiting Genitourinary Genitourinary ED: Denies dysuria, hematuria or urinary frequency Musculoskeletal Musculoskeletal: Denies back pain, extremity pain or neck pain Integumentary Denies rash or wounds Neurologic Neurologic: Reports other Details: Confusion with memory issues ; Denies headache(s), paresthesias or weakness EXAM Physical Exam Const Vital Signs: 06/08/22 12:28 06/08/22 13:00 06/08/22 13:05 Temperature 97.2 F L Temperature Source Temporal Pulse Rate 71 60 Respiratory Rate 18 18 Blood Pressure 124/91 H 143/101 H Blood Pressure Mean 102 115 Pulse Ox 97 97 Oxygen Delivery Method Room Air Room Air Room Air 06/08/22 13:05 06/08/22 14:02 Temperature 97.8 F Temperature Source Temporal Pulse Rate 89 59 L Respiratory Rate 16 23 H Blood Pressure 143/101 H 129/80 H Blood Pressure Mean 115 96 Pulse Ox 99 97 Oxygen Delivery Method Room Air Room Air Positive well nourished and well developed General Appearance ED: well developed and NAD HEENT Reports moist mucous membranes normocephalic and atraumatic Eyes PERRL, EOMs intact bilaterally and conjunctivae normal General Eye ED: Yes normal appearance of both eyes Neck no lymphadenopathy and supple General: Negative for tenderness Chest Wall Chest: Negative for tenderness Resp normal respiratory effort and normal air movement Effort and Inspection: symmetric chest movement; Negative for respiratory distress Cardio regular rate, regular rhythm and no murmurs Peripheral Pulses: pulses 2+ throughout GI normal to inspection, nondistended, normoactive bowel sounds and non-tender Palpation: Negative for guarding or rebound tenderness present Back/Spine no CVA tenderness and no thoracic nor lumbar tenderness Extremity normal to inspection General Extremety ED: Negative for edema or tenderness General Extremity: Negative for edema Neuro oriented x3 and no sensory deficits noted Neuro Narrative: NIH of 0. However patient was slow to response when reading words and pictures. Sensorium / Orientation: awake and alert Skin no rashes or lesions noted and no wounds MDM MDM MDM Narrative Medical decision making narrative: Interventions / MDM: Differential diagnosis: CVA, infection, electrolyte abnormalities Diagnosis considered but do not suspect: N/A My EKG interpretation: Sinus rhythm rate of [address] or T wave changes. Imaging independently reviewed and interpreted by myself: 1 view chest x-ray no acute process. CT brain interpreted by myself and read by radiology negative for acute process. External documents reviewed: Discharge paperwork from [facility]. Test considered but not ordered:N/A ED course: Patient had NIH of 0 however with confusion reporting troubles with speech, potential stroke is in the differential.'s been going on for 6 days. She is not a tPA candidate. CT brain discussion with rate does not review showed no acute process. She has no weakness or any debilitating factors at this time. Discussed with radiologist about obtaining MRI in the ED for which she is cleared to rule out stroke. Especially has been going on for 6 days. Laboratory studies were read obtained hemoglobin 13.5 white count 5.2 lites normal potassium 3.2 so 1 creatinine of 0.96. Urine was negative for infection. Chest x-ray negative for infection. MRI with concerning changes of the corpus callosum. Stroke differential out 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 disease versus glioma or encephalitis, however she has 6 days of symptoms she is afebrile and not likely infectious. Her symptoms more likely of stroke concerns. Re-evaluation: Clinically stable, I spoke with hospitalist, will order CT angiogram for vascular studies of the head and neck. She will likely need a bubble study in the hospital. Patient updated. Admitted to PCU. Disposition discussed with patient/family/significant other: Hospitalist, Dr. Frias Case discussed with consulting clinician: N/A Lab Data Attestation: I reviewed the patient's lab results. Labs: Laboratory Results - last 24 hr 06/08/22 06/08/22 06/08/22 12:59 13:00 13:02 WBC 5.2 RBC 4.50 Hgb 13.5 Hct 40.4 MCV 89.8 MCH 30.0 MCHC 33.4 RDW Std Deviation 43.7 RDW Coeff of Benigno 13.4 Plt Count 172 MPV 9.0 Immature Gran % (Auto) 0.200 Neut % (Auto) 67.1 Lymph % (Auto) 23.5 Mccracken % (Auto) 6.7 Eos % (Auto) 2.1 Baso % (Auto) 0.4 Absolute Neuts (auto) 3.5 Absolute Lymphs (auto) 1.23 Nucleated RBC % 0 PT INR APTT Sodium Potassium Chloride Carbon Dioxide Anion Gap BUN Creatinine Estim Creat Clear Calc Est GFR (MDRD) Af Amer Est GFR (MDRD) Non-Af BUN/Creatinine Ratio Glucose Calcium Troponin I High Sens Urine Color Yellow Urine Clarity Sl. Cloudy Urine pH 7.0 Ur Specific [place] 1.010 Urine Protein Negative Urine Glucose (UA) Normal Urine Ketones Negative Urine Occult Blood 10 H Urine Nitrite Negative Urine Bilirubin Negative Urine Urobilinogen Normal Ur Leukocyte Esterase Negative Urine RBC 0-5 SEEN Urine WBC 0 SEEN Ur Squamous Epith Cells 0 SEEN Urine Bacteria 0 SEEN Urine Mucus 0 SEEN POC Glucose 100 06/08/22 06/08/22 13:02 13:02 WBC RBC Hgb Hct MCV MCH MCHC RDW Std Deviation RDW Coeff of Benigno Plt Count MPV Immature Gran % (Auto) Neut % (Auto) Lymph % (Auto) Mccracken % (Auto) Eos % (Auto) Baso % (Auto) Absolute Neuts (auto) Absolute Lymphs (auto) Nucleated RBC % PT 13.5 INR 1.1 APTT 27.6 Sodium 140 Potassium 3.2 L Chloride 109 H Carbon Dioxide 24.0 Anion Gap 7 BUN 8 Creatinine 0.96 Estim Creat Clear Calc 65.15 Est GFR (MDRD) Af Amer 78 Est GFR (MDRD) Non-Af 64 BUN/Creatinine Ratio 8.3 L Glucose 88 Calcium 8.8 Troponin I High Sens 6 Urine Color Urine Clarity Urine pH Ur Specific [place] Urine Protein Urine Glucose (UA) Urine Ketones Urine Occult Blood Urine Nitrite Urine Bilirubin Urine Urobilinogen Ur Leukocyte Esterase Urine RBC Urine WBC Ur Squamous Epith Cells Urine Bacteria Urine Mucus POC Glucose Radiography Diagnostic Testing: Clinical Impression(s) from Imaging Studies Brain MRI 06/08/22 00:00 IMPRESSION: Signal abnormality in the splenium of the corpus callosum. Differential considerations include demyelination, acute ischemia, high-grade glioma. Additional considerations include encephalitis or acute disseminated encephalomyelitis (ADEM), posterior reversible encephalopathy syndrome (PRES). Limited additional T2 signal hyperintensity are nonspecific and may be due to microvascular ischemia, demyelination, vasculitis. Electronically Signed: Jacqueline Banegas MD at 17:03 EST Reading Location ID and State: 144 / Tel , Service support , Brain CT 06/08/22 13:03 IMPRESSION: Normal CT brain without intravenous contrast. Aspect score 10 Electronically Signed: Garrett Green MD at 13:54 EST , ADDENDUM: 06/08/22 1401 IMPRESSION: Normal CT brain without intravenous contrast. Aspect score 10 N.B. : The above Results were Read Back by Garrett Green MD to Riley Frances MD, and understanding confirmed on 06/08/2022 13:54:31 (ET). Electronically Signed: Garrett Green MD at 13:54 EST , Chest X-Ray 06/08/22 13:30 IMPRESSION: No acute cardiopulmonary abnormality. No interval change. Electronically Signed: Garrett Green MD at 13:42 EST , Discharge Plan Triage Chief Complaint: Confusion ED Provider: Juan Daniel River Dx/Rx/DC Orders Clinical Impression: Acute cerebrovascular accident (CVA), History of CAD (coronary artery disease), Confusion Prescriptions: No Action trazodone 50 MG tablet 400 mg PO QHS clopidogrel 75 MG tablet 75 mg PO DAILY albuterol sulfate 8.5 GM HFA aerosol inhaler 8.5 gm INHALATION DAILY Label Comments: INHALE 2 PUFFS BY MOUTH EVERY 6 HOURS NEEDED vilazodone [Viibryd] 40 mg Tablet 40 mg PO DAILY bupropion HCl [Wellbutrin SR] 150 mg Tablet Sustained-Release 12 Hr 150 mg PO DAILY isosorbide mononitrate 30 mg Tablet Extended Release 24 Hr 30 mg PO DAILY Hold Instructions: Resume on 06/10/22. With your project control manager regarding when to resume clonazepam 0.5 mg Tablet 0.5 mg PO BID pantoprazole 20 mg Tablet,Delayed Release (Dr/Ec) 20 mg PO DAILY carbamazepine [Tegretol] 200 mg Tablet 200 mg PO BID losartan 25 mg Tablet 25 mg PO DAILY Hold Instructions: Resume on 06/10/22. With your project control manager regarding when to resume topiramate [Topamax] 100 mg Tablet 100 mg PO BID Vraylar 1.5 mg Capsule 1.5 mg PO DAILY aspirin 81 mg Tablet,Delayed Release (Dr/Ec) 81 mg PO DAILY Praluent Pen 75 mg/mL Pen Injector 75 mg SUBCUT Q14D melatonin 10 mg Tablet 10 mg PO QHS Qty: 30 0RF Primary Care Provider: Solis Cool Referrals: Solis Cool DO [Primary Care Provider] - Disposition Disposition: Acute Care [facility] What to do if you have Problems For any increased pain, shortness of breath, bleeding, nausea or vomiting, chest pain, or any unexpected problems, contact your Primary Care Provider. Call [facility] ([phone]) or report to the closest Emergency Room. Call 911 if necessary. 06/08/22 1751 <Electronically signed by Juan Daniel Dunham> Cosigner Signature (if applicable): CC: Dr. Solis Cool DO Signed Solis Cool DO Work Phone: Start: 06-08-2022 End: 06-08-2022 Chest 1 View Procedure Note: See Note; NOTES: [facility] Imaging Services [address] [place] [address] Chest 1 View MR#: [id number] Acct: [id number] Name: JOSIE LANDIS Rep #: [id number] : 1965 F 56 From: Garrett Green MD PCP: Dr. Solis Cool DO Status: REG ER Study: Chest 1 View Date of Exam: 06/08/22 Exam# [id number] Ordering Dr: Juan Daniel River DO EXAM: XR CHEST, 1 VIEW CLINICAL INDICATION: Neuro deficit, acute, stroke suspected TECHNIQUE: Frontal view of the chest. This report was created using Ouner report generation technology. COMPARISON: XR Chest dated 06/02/2022 FINDINGS: LUNGS AND PLEURAL SPACES: Normal. No consolidation or edema. No pneumothorax. No effusion. HEART: Normal heart size. MEDIASTINUM: No mediastinal or hilar mass. BONES/JOINTS: No acute abnormality. SOFT TISSUES: Normal. RAD/Chest 1 View IMPRESSION: No acute cardiopulmonary abnormality. No interval change. Electronically Signed: Garrett Green MD at 13:42 EST , CC: Dr. Solis Cool DO; Dr. Juan Daniel River DO Physical Chemistry Teacher: Signed Solis Cool DO Work Phone: Start: 06-08-2022 Plain chest X-ray Dr. Solis Cool Work Phone: Start: 06-08-2022 CT of head without contrast Dr. Solis Cool Work Phone: Start: 06-08-2022 End: 06-08-2022 STROKE Brain/Head without Cont Procedure Note: See Note; NOTES: [facility] Imaging Services [address] [place] [id number] STROKE Brain/Head without Cont MR#: [id number] Acct: [id number] Name: JOSIE LANDIS Rep #: [id number] : 1965 F 56 From: Garrett Green MD PCP: Dr. Solis Cool DO Status: REG ER Study: STROKE Brain/Head without Cont Date of Exam: 0 06/08/22 Exam# [id number] Ordering Dr: Juan Daniel River DO We are attempting to reach an attending provider to discuss findings. An addendum with communication details will be sent when the communication is complete. EXAM: CT HEAD WITHOUT INTRAVENOUS CONTRAST CLINICAL INDICATION: Neuro deficit, acute, stroke suspected TECHNIQUE: Multiple axial images were obtained of the head without intravenous contrast. This CT exam was performed using one or more of the following dose reduction techniques: automated exposure control, adjustment of the mA and/or kV according to patient size, and/or use of iterative reconstruction technique. This report was created using Ouner report generation technology. COMPARISON: None. FINDINGS: BRAIN AND EXTRA-AXIAL SPACES: Normal. No intra- or extra-axial hemorrhage. No evidence of acute infarct. No intracranial mass or mass effect. There is preservation of the hogan/white matter interface. Posterior fossa structures are unremarkable. Ventricles are appropriate for age. No hydrocephalus. Basal cisterns are patent. BONES/JOINTS: No suspicious lytic or blastic abnormality. SINUSES: Unremarkable as visualized. No acute sinusitis. MASTOID AIR CELLS: Normal. Clear. ORBITS: Visualized globes, extraocular muscles, optic nerves and retrobulbar fat appear unremarkable. CT/STROKE Brain/Head without Cont IMPRESSION: Normal CT brain without intravenous contrast. Aspect score 10 Electronically Signed: Garrett Green MD at 13:54 EST Reading Location ID and State: [address] [place] [address] Tel , Service support , CC: Dr. Solis Cool DO; Dr. Juan Daniel River DO Physical Chemistry Teacher: Signed Solis Cool DO Work Phone: Start: 06-08-2022 End: 06-08-2022 Brain W/WO Contrast Procedure Note: See Note; NOTES: [facility] Imaging Services [address] [place] [address] Brain W/WO Contrast MR#: [id number] Acct: [id number] Name: JOSIE LANDIS Rep #: [id number] : 1965 F 56 From: Jacqueline redmond MD PCP: Dr. Solis Cool DO Status: REG ER Study: Brain W/WO Contrast Date of Exam: 06/08/22 Exam# [id number] Ordering Dr: Juan Daniel River DO We are attempting to reach an attending provider to discuss findings. An addendum with communication details will be sent when the communication is complete. INDICATION: confusion -- trouble with words EXAMINATION: MRI - MR Brain WO/W Contrast TECHNIQUE: Multiplanar and multisequence MR images of the brain were obtained without and with gadolinium. IV Contrast Dosage and Agent: None. COMPARISON: CT head 06/08/2022. FINDINGS: BRAIN AND EXTRA-AXIAL SPACES: T2 signal hyperintensity and edema in the splenium of the corpus callosum on T2-weighted imaging. There is mild restricted diffusion on DWI and ADC maps. There is no enhancement following the administration of contrast. Limited number of T2 signal hyperintense foci in the right frontoparietal subcortical white matter. No enhancement. Ventricles are normal in size. Basal cisterns are unremarkable. SELLA: Pituitary gland is normal in height. AUDITORY SYSTEM: Unremarkable. BONES/JOINTS: Unremarkable. SINUSES: Unremarkable as visualized. Clear. MASTOID AIR CELLS: Unremarkable as visualized. Clear. ORBITS: Unremarkable as visualized. VASCULATURE: Normal flow voids in the major intracranial circulation. 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 Differential considerations include demyelination, acute ischemia, high-grade glioma. Additional considerations include encephalitis or acute disseminated encephalomyelitis (ADEM), posterior reversible encephalopathy syndrome (PRES). Limited additional T2 signal hyperintensity are nonspecific and may be due to microvascular ischemia, demyelination, vasculitis. Electronically Signed: Jacqueline Banegas MD at 17:03 EST Reading Location ID and State: [id number] / Tel , Service support , CC: Dr. Solis Cool DO; Dr. Juan Daniel River DO Physical Chemistry Teacher: Signed Solis Cool DO Work Phone: Start: 06-08-2022 MRI of brain with contrast Dr. Solis Cool Work Phone: Start: 06-02-2022 Cardiovascular stress test using pharmacologic stress agent Dr. Solis Cool Work Phone: Start: 06-02-2022 End: 06-02-2022 Emergency Department Summary Procedure Note: See Note; NOTES: [facility] Medical Records Department [address] [place] [address] Emergency Department Summary 06/02/22 MR#: [id number] Acct: [id number] Name: JOSIE LANDIS Rep #: [id number] : 1965 56 From: Keyur Palmer MD PCP: Dr. Solis Cool, DO Status:REG ER Location: ED HPI History of Present Illness Chief Complaint: Chest Pain Informant: patient and spouse/S.O. Narrative Narrative: Patient had an episode of chest heaviness this morning. She describes it as somebody sitting on her chest. It is better now. It sounds like she did get a little nauseated but did not vomit. She did get a very hot feeling possibly a little diaphoretic. She was a little bit short of breath with it. This reminds her of symptoms she had before with heart disease. She has had stents in the past. She just had stenting of her circumflex 2 weeks ago at [facility]. I reviewed papers from [facility] that the patient brought with her. These give some detail to her heart catheterization. Patient had prior stenting of mid right RCA that had some 60% in-stent restenosis. She had prior stenting of the proximal LAD that had 40% in-stent restenosis. She had a new lesion in the mid circumflex that was an 85% blockage that was reduced to less than 5% with stenting. Patient is on and is taking her Plavix and aspirin as well as her statin and metoprolol. She does have family history of heart disease. She has not been sick and is generally been doing well since her heart cath. [facility] Medical History (Updated 06/02/22 @ 06:[address] Keyur Palmer MD) Anxiety and depression CAD (coronary artery disease) COPD (chronic obstructive pulmonary disease) HLD (hyperlipidemia) HTN (hypertension) Tobacco abuse Home Medications albuterol sulfate 90 mcg/actuation aerosol inhaler 8.5 gm inhalation DAILY 07/05/20 [History Last Taken Unknown] cariprazine 1.5 mg capsule 1.5 mg PO DAILY 07/05/20 [History Last Taken Unknown] clopidogrel 75 mg tablet 75 mg PO DAILY 07/05/20 [History Last Taken Unknown] trazodone 50 mg tablet 400 mg PO QHS 07/05/20 [History Last Taken Unknown] melatonin 10 mg tablet 20 mg PO QHS 10/08/21 [History Last Taken Unknown] vilazodone 40 mg tablet (Viibryd) 40 mg PO DAILY 10/08/21 [History Last Taken Unknown] aspirin 81 mg tablet,delayed release 81 mg PO DAILY 06/02/22 [History Last Taken Unknown] bupropion HCl 150 mg tablet,12 hr sustained-release (Wellbutrin SR) 150 mg PO DAILY 06/02/22 [History Last Taken Unknown] carbamazepine 200 mg tablet (Tegretol) 200 mg PO BID 06/02/22 [History Last Taken Unknown] cariprazine 1.5 mg capsule (Vraylar) 1.5 mg PO DAILY 06/02/22 [History Last Taken Unknown] clonazepam 0.5 mg tablet 0.5 mg PO BID 06/02/22 [History Last Taken Unknown] isosorbide mononitrate 30 mg tablet,extended release 24 hr 30 mg PO DAILY 06/02/22 [History Last Taken Unknown] losartan 25 mg tablet 25 mg PO DAILY 06/02/22 [History Last Taken Unknown] pantoprazole 20 mg tablet,delayed release 20 mg PO DAILY 06/02/22 [History Last Taken Unknown] topiramate 100 mg tablet (Topamax) 100 mg PO BID 06/02/22 [History Last Taken Unknown] Allergy/AdvReac Type Severity Reaction Status Date / Time adhesive tape Allergy Hives Verified 06/02/22 05:13 aspirin [ASA] Allergy Other Verified 06/02/22 05:13 budesonide [From Symbicort] Allergy Anaphylaxis Verified 06/02/22 05:13 formoterol [From Symbicort] Allergy Anaphylaxis Verified 06/02/22 05:13 latex Allergy Hives Verified 06/02/22 05:13 Penicillins [PCN] Allergy Hives Verified 06/02/22 05:13 Surgical History H/O: hysterectomy History of cholecystectomy History of heart artery stent Hx of tonsillectomy Social History household members: spouse Smoking Status: Current every day smoker tobacco type: cigarettes substance use type: does not use ROS ROS ED Constitutional Constitutional ED: Denies chills or fever(s) Eyes Eyes: Denies change in vision ENT ENT ED: Denies rhinorrhea or sore throat Cardiovascular Cardiovascular: Reports as per HPI Respiratory/Chest Respiratory/Chest: Reports dyspnea; Denies cough Gastrointestinal Gastrointestinal: Reports nausea; Denies vomiting Musculoskeletal Musculoskeletal: Denies back pain or neck pain Integumentary Denies rash Neurologic Neurologic: Denies headache(s) or paresthesias Psychiatric Psychiatric: Reports anxiety Endocrine Endocrinology: Denies polydipsia or polyuria Hematologic/Lymphatic Hematologic/Lymphatic: Reports easy bleeding and easy bruising Allergic/Immunologic Allergic/Immunologic ED: Denies urticaria EXAM Physical Exam Narrative Exam Narrative: Patient is awake alert no acute distress sitting in bed at this time. She carries on normal conversation. HEENT shows no rash or tenderness. Mucous membranes are moist. No diaphoresis. Eyes Free range of motion Neck shows no JVD. No tenderness. No subcu air. Chest is clear. She can take good deep breaths without any pain or discomfort. Heart is regular with a rate of about 60. No murmur gallop or rub is noted. No chest wall tenderness. Peripheral pulses are good. Abdomen is soft nontender and normal bowel sounds. No CVA or suprapubic tenderness Extremities show no edema cords tenderness or asymmetry. Patient is alert oriented and appropriate Skin shows no diaphoresis or rash. Const Vital Signs: 06/02/22 05:09 Temperature 96.9 F L Temperature Source Temporal Pulse Rate 60 Respiratory Rate 16 Blood Pressure 97/61 Blood Pressure Mean 73 Pulse Ox 96 Oxygen Delivery Method Room Air MDM MDM MDM Narrative Medical decision making narrative: My independent interpretation of the patient's single AP chest x-ray shows no acute process. No pneumothorax. No infiltrate. No abnormal mediastinum. Final reading by radiology shows normal x- ray examination of the chest. CBC electrolytes are normal. Glucose is minimally up at 131. Troponin is quite normal at 5. This patient symptoms are resolved. The EKG showed no acute process but she was not having symptoms when this was done. Her work-up so far is negative. However, she has significant heart disease just had stenting done and had the same symptoms as prior to the stents. I called and directly discussed these issues with our project control manager, Dr. Shine. He recommend that we do bring her in the hospital. She will have enzymes cycled and likely stress test to look further. I then discussed the case with hospitalist who is seeing her in the emergency department. Lab Data Attestation: I reviewed the patient's lab results. Labs: Laboratory Results - last 24 hr 06/02/22 06/02/22 05:30 05:30 WBC 4.5 RBC 4.42 Hgb 13.2 Hct 40.0 MCV 90.5 MCH 29.9 MCHC 33.0 RDW Std Deviation 44.7 H RDW Coeff of Benigno 13.5 Plt Count 168 MPV 8.9 Immature Gran % (Auto) 0.200 Neut % (Auto) 54.4 Lymph % (Auto) 35.0 Mccracken % (Auto) 6.8 Eos % (Auto) 2.9 Baso % (Auto) 0.7 Absolute Neuts (auto) 2.5 Absolute Lymphs (auto) 1.59 Nucleated RBC % 0 Sodium 140 Potassium 3.5 Chloride 112 H Carbon Dioxide 21.0 Anion Gap 7 BUN 12 Creatinine 0.89 Estim Creat Clear Calc 70.27 Est GFR (MDRD) Af Amer 85 Est GFR (MDRD) Non-Af 70 BUN/Creatinine Ratio 13.5 Glucose 131 H Calcium 8.4 L Troponin I High Sens 5 EKG Initial EKG: Comments: My independent interpretation of EKG done for chest pain shows a sinus rhythm with overall rate of 60. No ventricular ectopy. No acute ST elevation or depression. PA interval, QRS duration and QTc are normal. This was compared with prior EKG from 08 October 2021 and shows no marked interval change. Discharge Plan Triage Chief Complaint: Chest Pain ED Provider: Keyur Palmer Dx/Rx/DC Orders Clinical Impression: Chest pain, History of CAD (coronary artery disease), Bradycardia, sinus Prescriptions: No Action trazodone 50 MG tablet 400 mg PO QHS clopidogrel 75 MG tablet 75 mg PO DAILY albuterol sulfate 8.5 GM HFA aerosol inhaler 8.5 gm INHALATION DAILY Label Comments: INHALE 2 PUFFS BY MOUTH EVERY 6 HOURS NEEDED cariprazine 1.5 MG capsule 1.5 mg PO DAILY vilazodone [Viibryd] 40 mg Tablet 40 mg PO DAILY melatonin 10 mg Tablet 20 mg PO QHS bupropion HCl [Wellbutrin SR] 150 mg Tablet Sustained-Release 12 Hr 150 mg PO DAILY isosorbide mononitrate 30 mg Tablet Extended Release 24 Hr 30 mg PO DAILY clonazepam 0.5 mg Tablet 0.5 mg PO BID pantoprazole 20 mg Tablet,Delayed Release (Dr/Ec) 20 mg PO DAILY carbamazepine [Tegretol] 200 mg Tablet 200 mg PO BID losartan 25 mg Tablet 25 mg PO DAILY topiramate [Topamax] 100 mg Tablet 100 mg PO BID Vraylar 1.5 mg Capsule 1.5 mg PO DAILY aspirin [Aspir-81] 81 mg Tablet,Delayed Release (Dr/Ec) 81 mg PO DAILY Primary Care Provider: Solis Cool Referrals: Solis Cool DO [Primary Care Provider] - Disposition Disposition: [facility] What to do if you have Problems For any increased pain, shortness of breath, bleeding, nausea or vomiting, chest pain, or any unexpected problems, contact your Primary Care Provider. Call [facility] ([phone]) or report to the closest Emergency Room. Call 911 if necessary. 06/02/2248 <Electronically signed by Keyur Palmer MD> Cosigner Signature (if applicable): CC: Dr. Solis Cool DO Signed Solis Cool DO Work Phone: Start: 06-02-2022 End: 06-02-2022 Chest 1 View (Portable) Procedure Note: See Note; NOTES: [facility] Imaging Services [address] [place] [id number] Chest 1 View (Portable) MR#: [id number] Acct: [id number] Name: JOSIE LANDIS Rep #: [id number] : 1965 F 56 From: Avila Rae MD PCP: Dr. Solis Cool DO Status: [facility] ER Study: Chest 1 View (Portable) Date of Exam: 06/02/22 Exam# [id number] Ordering Dr: Keyur Palmer MD STUDY: X-RAY CHEST REASON FOR EXAM: Female, 56 years old. chest pain TECHNIQUE: Single AP portable view of the chest. COMPARISON: October 08, 2021. FINDINGS: No focal infiltrates or effusions. No pneumothorax. Normal size heart. Normal mediastinum and saloni. Normal visualized pulmonary arteries. Normal visualized aortic arch and descending thoracic aorta. Normal visualized thoracic spine. Normal visualized ribs, clavicles, and shoulders. There is no demonstrated abnormality of the visualized soft tissue structures of the upper abdomen. RAD/Chest 1 View (Portable) IMPRESSION: Normal x-ray examination of the chest. Electronically Signed: Avila Rae MD at 6:16 EST Reading Location ID and State: [id number] / , Service support , CC: Dr. Solis Cool DO; Dr. Keyur Palmer MD Physical Chemistry Teacher: Signed Solis Cool DO Work Phone: Start: 06-02-2022 Plain chest X-ray Dr. Solis Cool Work Phone: Start: 03-25-2022 Screening mammography Start: 03-25-2022 End: 03-25-2022 SCRN MAMM (CAD)W/HAYDEE BILAT Procedure Note: See Note; NOTES: [facility] Imaging Services [address] [place] [address] SCRN MAMM (CAD)W/HAYDEE BILAT MR#: [id number] Acct: [id number] Name: JOSIE LANDIS Rep #: [id number] : 1965 F 56 From: Juan Sutton DO PCP: Dr. Solis Cool DO Status: REG CLI Study: SCRN MAMM (CAD)W/HAYDEE BILAT Date of Exam: 03/04 07/22 Exam# [id number] Ordering Dr: Solis Cool DO MAMMOGRAPHY - BILATERAL SCREENING REASON FOR EXAM: Female, 56 years old. Routine annual screening examination. PERTINENT HISTORY: Non-contributory. TECHNIQUE: Digital bilateral breast haydee (3D mammographic acquisition) in the CC and MLO projections. 2-D mediolateral oblique (MLO) and craniocaudad (CC) views of both breasts were obtained. CAD: Full Field Digital Mammography with Computer Added Detection was performed. COMPARISON: Mammogram from 03/24/2021, 11/29/2019. FINDINGS: Breast Composition: The breasts are heterogeneously dense, which may obscure small masses. There are no dominant masses or suspicious calcifications. Stable small benign-appearing bilateral axillary lymph nodes. No other significant abnormalities are identified. There has been no significant change since the prior study. BI/SCRN MAMM (CAD)W/HAYDEE BILAT IMPRESSION: Stable bilateral screening mammogram. Yearly follow-up mammogram recommended. (A) ASSESSMENT CATEGORY: BIRADS Category 2: Benign. A letter regarding these results will be sent to the patient by the facility within 30 days. Approximately 10% of breast cancers are not detected by mammography. A normal mammogram should not delay biopsy of a clinically suspicious abnormality. Electronically Signed: Juan Sutton, at 16:07 EST , CC: Dr. Solis Cool DO Physical Chemistry Teacher: Signed Solis Cool DO Work Phone: Start: 10-08-2021 End: 10-08-2021 Chest 1 View (Portable) Comments: See Note; NOTES: [facility] Imaging Services [address] [place] [address] Chest 1 View (Portable) MR#: [id number] Acct: [id number] Name: JOSIE LANDIS Rep #: [id number] : 1965 F 56 From: Niranjan Garsia PCP: Dr. Solis Cool DO Status: REG ER Study: Chest 1 View (Portable) Date of Exam: 10/08/21 Exam# [id number] Ordering Dr: Bautista Peters MD INDICATION: chest pain EXAMINATION/TECHNIQUE: X-RAY - XR Chest 1 View COMPARISON: 03/09/2021 FINDINGS: LIFE-SUPPORT AND LINES: 1. None HEART AND VESSELS: The cardiac silhouette, pulmonary vasculature have normal appearance. No evidence of congestive failure. LUNGS AND PLEURAL SPACES: Lungs are clear. No focal infiltrate, consolidation or effusions. No evidence of pneumothorax. No pulmonary mass is noted. MEDIASTINUM AND HILAR REGIONS: No masses adenopathy noted. No areas of calcification. Visualized upper airway is normal in position. BONY ELEMENTS: No acute bony changes noted. RAD/Chest 1 View (Portable) IMPRESSION: 1. No evidence of acute cardiopulmonary process Electronically Signed: Niranjan Mohr MD at 17:28 EDT , CC: Dr. Bautista Peters MD; Dr. Solis Cool DO Physical Chemistry Teacher: Signed Solis Cool DO Work Phone: Start: 10-08-2021 Plain chest X-ray Start: 10-08-2021 End: 10-08-2021 Emergency Department Summary Comments: See Note; NOTES: [facility] Medical Records Department [address] [place] [address] Emergency Department Summary 10/08/21 MR#: [id number] Acct: [id number] Name: JOSIE LANDIS Rep #: [id number] : 1965 56 From: Bautista Peters MD PCP: Dr. Solis Cool, DO Status:REG ER Location: ED HPI History of Present Illness Chief Complaint: Chest Pain Narrative Narrative: Patient presents with chest pressure and cold sweats that she has had for the last few hours. 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 She felt mildly lightheaded. She ate something which did not relieve her symptoms. She began having chest pressure and cold sweats. She denies any nausea or vomiting. No shortness of breath. No fevers or chills, no cough. Of note, she states 4-1/2 years ago she had stents placed in her heart. Her project control manager is Dr. Lopez. She has not had a stress test since then. She denies any leg swelling. She does take Plavix because she is allergic to aspirin. While this feels different because she was very short of breath and thought she had bronchitis when she had her stents placed, she is concerned about the continuing chest pressure that she is having. She denies any PE risk factors. No leg swelling. [facility] Medical History CAD (coronary artery disease) COPD (chronic obstructive pulmonary disease) Home Medications albuterol sulfate 8.5 gm INHALATION DAILY 07/05/20 [History Last Taken Unknown] cariprazine 1.5 mg PO DAILY 07/05/20 [History Last Taken Unknown] clonazepam 0.5 mg PO BID 07/05/20 [History Last Taken Unknown] clopidogrel 75 mg PO DAILY 07/05/20 [History Last Taken Unknown] topiramate 200 mg PO DAILY 07/05/20 [History Last Taken Unknown] trazodone 300 mg PO QHS 07/05/20 [History Last Taken Unknown] carbamazepine 800 mg PO DAILY 10/08/21 [History Last Taken Unknown] cetirizine [Allergy Relief (cetirizine)] 25 mg PO DAILY PRN 10/08/21 [History Last Taken Unknown] melatonin 20 mg PO QHS 10/08/21 [History Last Taken Unknown] vilazodone [Viibryd] 40 mg PO DAILY 10/08/21 [History Last Taken Unknown] Allergy/AdvReac Type Severity Reaction Status Date / Time aspirin [ASA] Allergy Other Verified 10/08/21 16:25 budesonide [From Symbicort] Allergy Anaphylaxis Verified 10/08/21 16:25 formoterol [From Symbicort] Allergy Anaphylaxis Verified 10/08/21 16:25 latex Allergy Hives Verified 10/08/21 16:25 Penicillins [PCN] Allergy Hives Verified 10/08/21 16:25 tape Allergy Hives Uncoded 10/08/21 16:33 Surgical History H/O: hysterectomy History of cholecystectomy History of heart artery stent Hx of tonsillectomy Social History Smoking Status: Current every day smoker tobacco type: cigarettes ROS ROS ED ROS Narrative Constitutional: No fever, no chills. Cold sweats. HEENT: No sore throat. No neck pain. No loss of vision. No rhinorrhea. Cardiovascular: Positive chest pain and pressure. No palpitations. No pedal edema. Respiratory: No cough, no shortness of breath. Abdominal: No abdominal pain. No nausea. No vomiting. Genitourinary: No dysuria. No hematuria. Musculoskeletal: No myalgias. No arthralgias. Neurologic: No headaches. No dizziness. No lightheadedness. Skin: No rash. No change in color. Psychiatric: No depression. No anxiety. EXAM Physical Exam Narrative Exam Narrative: Afebrile. Vital signs noted. HEENT: Normocephalic. Atraumatic. PERRL, EOMI. Neck soft and supple. No point tenderness or step off. Cardiovascular: Regular rate and rhythm. No murmurs, rubs, or gallops appreciated. Respiratory: No tachypnea. Lungs clear to auscultation bilaterally. Gastrointestinal: Abdomen soft, nontender, with normoactive bowel sounds. No rebound or guarding. Neurological: Awake. Alert. Nonfocal, nonlateralizing. Skin: No rash. Normal color. No pallor. Musculoskeletal: No pedal edema. Full range of motion extremities. Const Vital Signs: 10/08/21 16:23 10/08/21 16:32 10/08/21 16:42 Temperature 98.4 F Temperature Source Oral Pulse Rate 68 Respiratory Rate 17 Respiratory Effort Normal Blood Pressure 152/85 H Blood Pressure Mean 107 Pulse Ox 98 Oxygen Delivery Method Room Air Room Air 10/08/21 16:58 10/08/21 17:06 10/08/21 17:10 Temperature Temperature Source Pulse Rate 68 73 75 Respiratory Rate 15 Respiratory Effort Blood Pressure 134/94 H 124/93 H 124/91 H Blood Pressure Mean 102 Pulse Ox 95 Oxygen Delivery Method Room Air 10/08/21 17:17 10/08/21 18:02 10/08/21 19:00 Temperature Temperature Source Pulse Rate 69 59 L 57 L Respiratory Rate 16 20 H Respiratory Effort Blood Pressure 134/95 H 121/74 H 134/75 H Blood Pressure Mean 89 94 Pulse Ox 98 97 Oxygen Delivery Method Room Air Room Air 10/08/21 20:00 Temperature Temperature Source Pulse Rate 61 Respiratory Rate 14 Respiratory Effort Blood Pressure 126/74 H Blood Pressure Mean 91 Pulse Ox 96 Oxygen Delivery Method Room Air Heart Score History: Slightly/Non-Suspicious ECG: Normal Age: >45 - <65 years Risk Factors: >/= 3 Risk Factors or History of CAD Troponin: </= Normal Limit Score: 3 MDM MDM MDM Narrative Medical decision making narrative: Chest pain work-up was pursued. She has an elevated blood pressure of 152/85. She will be administered her Plavix and nitroglycerin. EKG demonstrates normal sinus rhythm at 65 bpm without ectopy or acute ST changes. No STEMI. No significant change from previous. CBC is grossly normal with a normal white count, hemoglobin normal at 13.4, hematocrit 41.5. Normal platelet count of 195. Potassium slightly low at 3.2 which can be replaced orally. Creatinine slightly elevated at 1.05. Initial high-sensitivity troponin normal at 4. 2-hour rule out was performed and is normal at 3. Chest x-ray interpreted by myself shows no evidence of an acute process, no infiltrate or pneumothorax. At this point in time, I feel she can be discharged safely home with follow-up. Smoking cessation was discussed. She will call her project control manager tomorrow. Return instructions were reviewed. Disposition is discharged home in stable condition. Lab Data Labs: Laboratory Results - last 24 hr 10/08/21 10/08/21 10/08/21 16:30 16:30 19:13 WBC 5.3 RBC 4.50 Hgb 13.4 Hct 41.5 MCV 92.2 MCH 29.8 MCHC 32.3 RDW Std Deviation 47.3 H RDW Coeff of Benigno 13.9 Plt Count 195 MPV 9.4 Immature Gran % (Auto) 0.600 Neut % (Auto) 66.5 Lymph % (Auto) 24.5 Mccracken % (Auto) 6.7 Eos % (Auto) 1.3 Baso % (Auto) 0.4 Absolute Neuts (auto) 3.6 Absolute Lymphs (auto) 1.31 Nucleated RBC % 0 Sodium 142 Potassium 3.2 L Chloride 111 H Carbon Dioxide 24.0 Anion Gap 7 BUN 8 Creatinine 1.05 H Estim Creat Clear Calc 59.56 Est GFR (MDRD) Af Amer 70 Est GFR (MDRD) Non-Af 58 L BUN/Creatinine Ratio 7.6 L Glucose 114 H Calcium 8.5 Troponin I High Sens 4 3 Radiography Diagnostic Testing: Clinical Impression(s) from Imaging Studies Chest X-Ray 10/08/21 16:55 IMPRESSION: 1. No evidence of acute cardiopulmonary process Electronically Signed: Niranjan Mohr MD at 17:28 EDT Reading Location ID and State: [address] [place] [address] Tel , Service support , Discharge Plan Triage Chief Complaint: Chest Pain ED Provider: Bautista Peters Dx/Rx/DC Orders Clinical Impression: Chest pain, History of coronary artery disease Instructions: ED Chest Pain, Uncertain Cause Prescriptions: No Action trazodone 50 MG tablet 300 mg PO QHS RF: 0 clonazepam 0.5 MG tablet 0.5 mg PO BID RF: 0 clopidogrel 75 MG tablet 75 mg PO DAILY RF: 0 albuterol sulfate 8.5 GM HFA aerosol inhaler 8.5 gm INHALATION DAILY RF: 0 topiramate 100 MG tablet 200 mg PO DAILY RF: 0 cariprazine 1.5 MG capsule 1.5 mg PO DAILY RF: 0 cetirizine [Allergy Relief (cetirizine)] 10 mg Tablet 25 mg PO DAILY PRN (Reason: allergies) RF: 0 carbamazepine 400 mg Tablet Extended Release 12 Hr 800 mg PO DAILY RF: 0 vilazodone [Viibryd] 40 mg Tablet 40 mg PO DAILY RF: 0 melatonin 10 mg Tablet 20 mg PO QHS RF: 0 Primary Care Provider: Solis Cool Referrals: Solis Cool DO [Primary Care Provider] - 5-7 Days Activity Restrictions/Additional Instructions: Your cardiac enzymes were negative twice today. Follow-up with your project control manager, Dr. Lopez as soon as possible. Call the office tomorrow. Disposition Disposition: Home, Self Care What to do if you have Problems For any increased pain, shortness of breath, bleeding, nausea or vomiting, chest pain, or any unexpected problems, contact your Primary Care Provider. Call [facility] ([phone]) or report to the closest Emergency Room. Call 911 if necessary. 10/08/212036 <Electronically signed by Bautista Peters MD> Cosigner Signature (if applicable): CC: Dr. Solis Cool, DO Signed Solis Cool DO Work Phone: Start: 10-08-2021 End: 10-13-2021 12 Lead EKG Comments: See Note; NOTES: [facility] Cardiovascular Services [address] [place] [address] 12 Lead EKG 10/08/21 1624 MR#: [id number] Acct: [id number] Name: JOSIE LANDIS Rep #: [id number] : 1965 56 From: William Shine MD Attending Dr: Status: DEP ER Ordering Dr: Bautista Peters MD Date: 10/08/21 Location: ED Sex: F C Admitted: Test Reason : CP Blood Pressure : / mmHG Vent. Rate : 065 BPM Atrial Rate : 065 BPM P-R Int : 176 ms QRS Dur : 090 ms QT Int : 402 ms P-R-T Axes : 058 060 070 degrees QTc Int : 418 ms Normal sinus rhythm Nonspecific ST and T wave abnormality Abnormal ECG Confirmed by WILLIAM SHINE MD ([id number]), editor & co founder JANEL CHEN ([id number]) on 10/13/2021 7:37:13 AM Referred By: JAIME/DAISY Confirmed By:WILLIAM SHINE MD 10/13/21 0737 Date William Shine MD CC: Dr. Bautista Peters MD; Dr. Solis Cool DO Signed Solis Cool DO Work Phone: Start: 04-20-2021 End: 04-20-2021 Emergency Department Summary Comments: See Note; NOTES: [facility] Medical Records Department [address] [place] [address] Emergency Department Summary 04/20/21 MR#: [id number] Acct: [id number] Name: JOSIE LANDIS Rep #: [id number] : 1965 55 From: Shelton Sandoval DO PCP: Dr. Solis Cool DO Status:DEP ER Location: ED HPI History of Present Illness Chief Complaint: Lower Extremity Injury Informant: patient Occured/Mechanism Mechanism/Context: Yes fall Comment: Fall off of a folding chair Onset/Context/Timing Onset: Today Context: Sudden Onset Timing: Continuous Quality of Pain: Burning Location: Left ankle Worsened by: Weightbearing Relieved by: Nothing Associated Symptoms Associated Symptoms: Negative for Parasthesia, Weakness and Loss of Funtion Narrative Narrative: Patient presents with injury to her left ankle that occurred today. Patient states she was standing on a folding chair while she was decorating her [place] tree. Patient states she fell off of the chair and inverted her left ankle. Patient states her pain is burning. Patient states her pain radiates up the anterior aspect of her left lower leg. Patient states her pain is worse with any weightbearing. Patient denies any paresthesias or weakness. Patient denies any head injury or loss of consciousness. Patient denies any pain over the proximal fibula or fifth metatarsal. [facility] Medical History CAD (coronary artery disease) COPD (chronic obstructive pulmonary disease) Home Medications doxycycline monohydrate 100 mg PO BID #20 cap 06/25/20 [Rx Last Taken Unknown] prednisone 60 mg PO DAILY #15 tab 06/25/20 [Rx Last Taken Unknown] albuterol sulfate 8.5 gm INHALATION DAILY 07/05/20 [History Last Taken Unknown] alirocumab 75 mg SQ DAILY 07/05/20 [History Last Taken Unknown] azelastine 1 spray NASAL DAILY 07/05/20 [History Last Taken Unknown] cariprazine 1.5 mg PO DAILY 07/05/20 [History Last Taken Unknown] clonazepam 0.5 mg PO DAILY 07/05/20 [History Last Taken Unknown] clopidogrel 75 mg PO DAILY 07/05/20 [History Last Taken Unknown] topiramate 100 mg PO DAILY 07/05/20 [History Last Taken Unknown] trazodone 50 mg PO QHS 07/05/20 [History Last Taken Unknown] vilazodone 07/05/20 [History Last Taken Unknown] Allergy/AdvReac Type Severity Reaction Status Date / Time aspirin [ASA] Allergy Other Verified 04/20/21 09:44 budesonide [From Symbicort] Allergy Anaphylaxis Verified 04/20/21 09:44 formoterol [From Symbicort] Allergy Anaphylaxis Verified 04/20/21 09:44 latex Allergy Hives Verified 04/20/21 09:44 Penicillins [PCN] Allergy Hives Verified 04/20/21 09:44 tape Allergy Hives Uncoded 04/20/21 09:44 Surgical History H/O: hysterectomy History of cholecystectomy History of heart artery stent Hx of tonsillectomy Social History Smoking Status: Current every day smoker tobacco type: cigarettes ROS ROS ED Constitutional Constitutional ED: Denies chills or fever(s) Eyes Eyes: Denies blurry vision or change in vision ENT ENT ED: Reports rhinorrhea; Denies sore throat Cardiovascular Cardiovascular: Denies chest pain or palpitations Respiratory/Chest Respiratory/Chest: Denies cough or dyspnea Gastrointestinal Gastrointestinal: Denies nausea or vomiting Genitourinary Genitourinary ED: Denies dysuria or hematuria Musculoskeletal Musculoskeletal: Denies back pain or neck pain Integumentary Denies abscess or rash Neurologic Neurologic: Denies headache(s) or weakness Allergic/Immunologic Allergic/Immunologic ED: Denies mouth swelling or urticaria EXAM Physical Exam Const Vital Signs: 04/20/21 09:44 Temperature 95.1 F L Temperature Source Temporal Pulse Rate 71 Respiratory Rate 16 Blood Pressure 134/92 H Blood Pressure Mean 106 Pulse Ox 97 Oxygen Delivery Method Room Air Positive well nourished and well developed General Appearance ED: well developed HEENT Reports moist mucous membranes Neck full ROM Extremity Extremity Narrative: There is tenderness over the medial and lateral malleoli. There is minimal edema. There is no ecchymosis. There is no bony crepitance or step-off. There is no tenderness over the proximal fibula. There is no tenderness over the fifth metatarsal. Range of motion was limited in all motions of the left ankle secondary to pain. There is good pedal pulse noted. Sensation was intact to light touch in all digits. Capillary refill was less than 2 seconds in all digits. Neuro oriented x3, CN's II-XII intact bilaterally, moves all extremities and no sensory deficits noted Sensorium / Orientation: alert Motor Exam: strength 5/5 throughout Psych mental status grossly normal MDM MDM MDM Narrative Medical decision making narrative: X-rays of the left ankle were obtained. There are 3 views. On my interpretation, there is no acute fracture. There is no dislocation. There is no soft tissue swelling. There are calcaneal spurs noted. Radiologist also interpreted the x-rays and agrees. Patient was given an Aircast. Patient was instructed to ice and elevate the left ankle. Patient was instructed to take Tylenol or ibuprofen as needed for pain. Patient was instructed use crutches as needed to help with weightbearing. Patient was instructed to follow-up with her primary care physician in 5 to 7 days. Patient understood and was agreeable with the plan. All questions were answered. Radiography Diagnostic Testing: Clinical Impression(s) from Imaging Studies Ankle X-Ray 04/20/21 09:55 IMPRESSION: Calcaneal spurs, no demonstrated fracture or suspicious osseous lesion Electronically Signed: Gera Ramirez MD at 10:16 EST , Service support , Discharge Plan Triage Chief Complaint: Lower Extremity Injury ED Provider: Shelton Sandoval Dx/Rx/DC Orders Clinical Impression: Left ankle sprain Instructions: ED Ankle Sprain (Adult) Prescriptions: No Action doxycycline monohydrate 100 MG capsule 100 mg PO BID Qty: 20 RF: 0 prednisone 20 MG tablet 60 mg PO DAILY Qty: 15 RF: 0 trazodone 50 MG tablet 50 mg PO QHS RF: 0 clonazepam 0.5 MG tablet 0.5 mg PO DAILY RF: 0 clopidogrel 75 MG tablet 75 mg PO DAILY RF: 0 azelastine 1 SPRAY aerosol,spray 1 spray NASAL DAILY RF: 0 albuterol sulfate 8.5 GM HFA aerosol inhaler 8.5 gm INHALATION DAILY RF: 0 topiramate 100 MG tablet 100 mg PO DAILY RF: 0 vilazodone 40 MG tablet RF: 0 alirocumab 75 MG/ML pen injector 75 mg SQ DAILY RF: 0 cariprazine 1.5 MG capsule 1.5 mg PO DAILY RF: 0 Primary Care Provider: Solis Cool Referrals: Solis Cool DO [Primary Care Provider] - 5-7 Days Disposition Disposition: Home, Self Care What to do if you have Problems For any increased pain, shortness of breath, bleeding, nausea or vomiting, chest pain, or any unexpected problems, contact your Primary Care Provider. Call [facility] ([phone]) or report to the closest Emergency Room. Call 911 if necessary. 04/20/21 9031 <Electronically signed by Shelton Sandoval DO> Cosigner Signature (if applicable): CC: Dr. Solis Cool DO Signed Solis Cool DO Work Phone: Start: 04-20-2021 End: 04-20-2021 Ankle min 3 Views Comments: See Note; NOTES: [facility] Imaging Services [address] [place] [address] Ankle min 3 Views MR#: [id number] Acct: [id number] Name: JOSIE LANDIS Rep #: [id number] : 1965 F 55 From: Mark Ramirez MD PCP: Dr. Solis Cool DO Status: PRE ER Study: Ankle min 3 Views Date of Exam: 04/20/21 Exam# [id number] Ordering Dr: Shelton Sandoval DO STUDY: X-RAY - LEFT ANKLE REASON FOR EXAM: Female, 55 years old. Injury/Pain TECHNIQUE: 4 view(s) of the ankle. COMPARISON: None. FINDINGS: Normal visualized distal tibia and fibula. Normal medial and lateral malleoli. Normal tibiotalar articulation and ankle mortise. Normal visualized talus. Small calcaneal spurs The visualized subtalar, talonavicular, calcaneocuboid and tarsal articulations are normal. The soft tissue structures are unremarkable. RAD/Ankle min 3 Views IMPRESSION: Calcaneal spurs, no demonstrated fracture or suspicious osseous lesion Electronically Signed: Gera Ramirez MD at 10:16 EST , Service support , CC: Dr. Shelton Sandoval DO; Dr. Solis Cool DO Physical Chemistry Teacher: Signed Solis Cool DO Work Phone: Start: 03-24-2021 End: 03-24-2021 SCRN MAMM (CAD)W/HAYDEE BILAT Comments: See Note; NOTES: [facility] Imaging Services [address] [place] [id number] SCRN MAMM (CAD)W/HAYDEE BILAT MR#: [id number] Acct: [id number] Name: JOSIE LANDIS Rep #: [id number] : 1965 F 55 From: Mark Ramirez MD PCP: Dr. Solis Cool DO Status: REG CLI Study: SCRN MAMM (CAD)W/HAYDEE BILAT Date of Exam: 03/04 06/23 Exam# [id number] Ordering Dr: Solis Cool DO MAMMOGRAPHY - BILATERAL SCREENING 3-D TOMOSYNTHESIS REASON FOR EXAM: Female, 55 years old. SCREENING PERTINENT HISTORY: No significant family history. TECHNIQUE: 2-D mammograms and 3-D Tomosynthesis of the breast (s) were performed. CAD was performed. COMPARISON: 11/29/2019 FINDINGS: The breast composition is composed of scattered fibroglandular density. Scattered benign calcifications are seen. No dense spiculated masses or suspicious microcalcifications are identified. No architectural distortion is identified. There is no skin thickening or retraction. There has been no significant change since the prior study. BI/SCRN MAMM (CAD)W/HAYDEE BILAT IMPRESSION: No mammographic signs of malignancy. Routine yearly mammograms recommended. ASSESSMENT CATEGORY: BIRADS Category 1: Negative. A letter regarding these results will be sent to the patient by the facility within 30 days. FOLLOW UP RECOMMENDATION: Yearly follow up mammogram recommended. (A) Approximately 10% of breast cancers are not detected by mammography. A normal mammogram should not delay biopsy of a clinically suspicious abnormality. Electronically Signed: Gera Ramirez MD at 14:42 EST , Service support , CC: Dr. Solis Cool DO Physical Chemistry Teacher: Signed Solis Cool DO Work Phone: Start: 03-09-2021 End: 03-09-2021 Emergency Department Summary Comments: See Note; NOTES: [facility] Medical Records Department [address] [place] [id number] Emergency Department Summary 03/09/21 MR#: [id number] Acct: [id number] Name: JOSIE LANDIS Rep #: [id number] : 1965 55 From: Ronald Castro MD PCP: Dr. Solis Cool DO Status:REG ER Location: ED HPI History of Present Illness Chief Complaint: Chest Pain Informant: patient Onset/Context/Timing Onset: Hours (1-2) Activity at onset: sudden, onset, activity on onset and sleep Timing: Continuous Quality: Positive for Pressure Location: Substernal (Without radiation/migration, arm, jaw, or back discomfort) Current Severity: 2/10 Maximum Severity: 10/10 Worsened By: Nothing Relieved By: Nothing Associated Symptoms: Positive for Nausea, Dyspnea and Lightheadedness (Near syncopal without palpitations); Negative for Vomiting, Diaphoresis, Cough and Fever Narrative Narrative: Patient concerns she woke up with a severe episode of nonpleuritic substernal chest pressure that made her feel like she was going to pass out, a little short of breath, and nauseated. The discomfort has subsided it is still present, but much more mild than the other symptoms are gone. She has a history of 2 stents that were placed in around 3 years ago.. She continues to smoke and recently was diagnosed with COPD. She has a history of being diagnosed with Covid almost 1 year ago and had pneumonia associated with it for 2 or 3 months but has since recovered. She is allergic to aspirin and takes clopidogrel daily, last taken yesterday morning. No recent leg pain or swelling, no history of DVT or PE, no recent long travel, immobilization, hospitalization, or surgery. Recent Illness/Hospitalization: No PE Risk Factors: Negative for Recent Travel/Surgery, Recent Immobilization, Prior DVT or PE, Cancer and OCP + Smoking + >/=35 PFSH [facility] Medical History CAD (coronary artery disease) COPD (chronic obstructive pulmonary disease) Home Medications doxycycline monohydrate 100 mg PO BID #20 cap 06/25/20 [Rx Last Taken Unknown] prednisone 60 mg PO DAILY #15 tab 06/25/20 [Rx Last Taken Unknown] albuterol sulfate 8.5 gm INHALATION DAILY 07/05/20 [History Last Taken Unknown] alirocumab 75 mg SQ DAILY 07/05/20 [History Last Taken Unknown] azelastine 1 spray NASAL DAILY 07/05/20 [History Last Taken Unknown] cariprazine 1.5 mg PO DAILY 07/05/20 [History Last Taken Unknown] clonazepam 0.5 mg PO DAILY 07/05/20 [History Last Taken Unknown] clopidogrel 75 mg PO DAILY 07/05/20 [History Last Taken Unknown] topiramate 100 mg PO DAILY 07/05/20 [History Last Taken Unknown] trazodone 50 mg PO QHS 07/05/20 [History Last Taken Unknown] vilazodone 07/05/20 [History Last Taken Unknown] Allergy/AdvReac Type Severity Reaction Status Date / Time aspirin [ASA] Allergy Other Verified 07/05/20 09:02 budesonide [From Symbicort] Allergy Anaphylaxis Verified 07/05/20 09:02 formoterol [From Symbicort] Allergy Anaphylaxis Verified 07/05/20 09:02 latex Allergy Hives Verified 03/09/21 01:44 EST Penicillins [PCN] Allergy Hives Verified 07/05/20 09:02 tape Allergy Hives Uncoded 06/25/20 09:01 Surgical History (Updated 03/09/21 @ 01:44 EST by Lily Mccurdy) H/O: hysterectomy History of cholecystectomy History of heart artery stent Hx of tonsillectomy Social History Smoking Status: Current every day smoker tobacco type: cigarettes ROS ROS ED Constitutional Constitutional ED: Reports malaise; Denies chills or fever(s) Eyes Eyes: Denies change in vision or diplopia ENT ENT ED: Denies rhinorrhea or sore throat Cardiovascular Cardiovascular: Reports chest pain; Denies palpitations Respiratory/Chest Respiratory/Chest: Reports dyspnea; Denies cough Gastrointestinal Gastrointestinal: Denies abdominal pain, diarrhea, nausea or vomiting Genitourinary Genitourinary ED: Denies dysuria or hematuria Musculoskeletal Musculoskeletal: Denies back pain or neck pain Integumentary Denies abscess or rash Neurologic Neurologic: Denies headache(s), paresthesias or weakness Psychiatric Psychiatric: Denies anxiety or suicidal thoughts EXAM Physical Exam Const Vital Signs: 03/09/21 01:39 EST 03/09/21 01:41 EST 03/09/21 02:19 Temperature 97.3 F L Temperature Source Temporal Pulse Rate 70 Respiratory Rate 17 Respiratory Effort Normal Respiratory Pattern Normal Blood Pressure 103/80 Blood Pressure Mean 87 Pulse Ox 96 Oxygen Delivery Method Room Air Nasal Cannula Oxygen Flow Rate (L/min) 2 03/09/21 04:05 Temperature Temperature Source Pulse Rate 63 Respiratory Rate 19 H Respiratory Effort Respiratory Pattern Blood Pressure 108/77 Blood Pressure Mean 87 Pulse Ox 93 Oxygen Delivery Method Room Air Oxygen Flow Rate (L/min) Positive well nourished and well developed Constitutional Narrative: Well-appearing conversive in full sentences General Appearance ED: well developed and NAD HEENT Reports moist mucous membranes normocephalic and atraumatic Eyes PERRL and EOMs intact bilaterally Neck full ROM and supple Resp normal respiratory effort and clear to auscultation bilaterally Cardio regular rate, regular rhythm and no murmurs Rate: Negative for tachycardic GI non-tender and non-distended Auscultation: normoactive bowel sounds Palpation: soft Back/Spine no CVA tenderness General Back: other FROM Extremity normal to inspection General Extremety ED: Negative for edema, pulses abnormal or tenderness General Extremity: Negative for edema or pulses abnormal Neuro oriented x3, CN's II-XII intact bilaterally and no sensory deficits noted Sensorium / Orientation: awake and alert Motor Exam: strength 5/5 throughout Skin no rashes or lesions noted and no wounds Heart Score History: Moderately Suspicious ECG: Normal Age: >45 - <65 years Risk Factors: >/= 3 Risk Factors or History of CAD Troponin: </= Normal Limit Score: 4 MDM MDM MDM Narrative Medical decision making narrative: Initial work-up normal including EKG and troponin, we did a 2- hour delta troponin, the repeat came back even lower at 5 compared to the initial at 6. Patient was given some Mylanta given that this is less likely cardiac, it did not make a difference and she was offered nitroglycerin but she did not want anything else for her discomfort and is comfortable going home. I do not think she needs work-up for a pulmonary embolus here, she has no tachycardia, tachypnea, hypoxemia, nor are her symptoms pleuritic or suggesting this diagnosis. Advise close outpatient follow-up if symptoms persist. Lab Data Attestation: I reviewed the patient's lab results. Labs: Laboratory Results - last 24 hr 03/09/21 03/09/21 03/09/21 01:43 EST 01:43 EST 03:50 WBC 6.4 RBC 4.90 Hgb 14.0 Hct 44.5 MCV 90.8 MCH 28.6 MCHC 31.5 L RDW Std Deviation 45.5 H RDW Coeff of Benigno 13.6 Plt Count 213 MPV 9.6 Immature Gran % (Auto) 0.300 Neut % (Auto) 48.7 Lymph % (Auto) 39.1 Mccracken % (Auto) 8.0 Eos % (Auto) 3.3 Baso % (Auto) 0.6 Absolute Neuts (auto) 3.1 Absolute Lymphs (auto) 2.50 Nucleated RBC % 0 Sodium 141 Potassium 3.9 Chloride 113 H Carbon Dioxide 26.0 Anion Gap 2 L BUN 11 Creatinine 1.04 H Estim Creat Clear Calc 60.83 Est GFR (MDRD) Af Amer 71 Est GFR (MDRD) Non-Af 59 L BUN/Creatinine Ratio 10.6 Glucose 128 H Calcium 8.5 Troponin I High Sens 6 5 Radiography Chest X-Ray - ED: 1 View, Read by ED Physician, Normal and No Acute Disease Diagnostic Testing: Clinical Impression(s) from Imaging Studies Chest X-Ray 03/09/21 02:04 IMPRESSION: Normal x-ray examination of the chest. Electronically Signed: Avila Rae MD at 2:24 EST , Service support , EKG Initial EKG: Attestation: I personally reviewed and interpreted this EKG as follows: Interpretation: Sinus Rhythm and No Acute Injury Pattern Comments: Normal EKG Prior EKG tracings: available for review Prior: Unchanged Discharge Plan Triage Chief Complaint: Chest Pain ED Provider: Ronald Castro Dx/Rx/DC Orders Clinical Impression: Chest pain Instructions: ED Chest Pain, Uncertain Cause Prescriptions: No Action doxycycline monohydrate 100 MG capsule 100 mg PO BID Qty: 20 RF: 0 prednisone 20 MG tablet 60 mg PO DAILY Qty: 15 RF: 0 trazodone 50 MG tablet 50 mg PO QHS RF: 0 clonazepam 0.5 MG tablet 0.5 mg PO DAILY RF: 0 clopidogrel 75 MG tablet 75 mg PO DAILY RF: 0 azelastine 1 SPRAY aerosol,spray 1 spray NASAL DAILY RF: 0 albuterol sulfate 8.5 GM HFA aerosol inhaler 8.5 gm INHALATION DAILY RF: 0 topiramate 100 MG tablet 100 mg PO DAILY RF: 0 vilazodone 40 MG tablet RF: 0 alirocumab 75 MG/ML pen injector 75 mg SQ DAILY RF: 0 cariprazine 1.5 MG capsule 1.5 mg PO DAILY RF: 0 Primary Care Provider: Solis Cool Referrals: Solis Cool DO [Primary Care Provider] - 3-5 Days if not improving Disposition Disposition: Home, Self Care What to do if you have Problems For any increased pain, shortness of breath, bleeding, nausea or vomiting, chest pain, or any unexpected problems, contact your Primary Care Provider. Call [facility] ([phone]) or report to the closest Emergency Room. Call 911 if necessary. 03/09/21 0431 <Electronically signed by Ronald Castro MD> Cosigner Signature (if applicable): CC: Dr. Solis Cool DO Signed Solis Cool DO Work Phone: Start: 03-09-2021 End: 03-10-2021 12 Lead EKG Comments: See Note; NOTES: [facility] Cardiovascular Services [address] [place] [address] 12 Lead EKG 03/09/21 0242 MR#: [id number] Acct: [id number] Name: JOSIE LANDIS Rep #: [id number] : 1965 55 From: Elidia Okeefe MD Attending Dr: Status: DEP ER Ordering Dr: Ronald Castro MD Date: 03/09/21 Location: ED Sex: F C Admitted: Test Reason : CP Blood Pressure : / mmHG Vent. Rate : 066 BPM Atrial Rate : 066 BPM P-R Int : 160 ms QRS Dur : 086 ms QT Int : 398 ms P-R-T Axes : 062 071 072 degrees QTc Int : 417 ms Normal sinus rhythm Normal ECG Confirmed by DIANA SHEEHAN, ELIDIA ([id number]), editor & co founder JANEL CHEN ([id number]) on 03/10/2021 10:45:02 AM Referred By: BB Confirmed By:ELIDIA OKEEFE MD 03/10/21 1045 Date Elidia Okeefe MD CC: Dr. Ronald Castro MD; Dr. Solis Cool DO Signed Solis Cool DO Work Phone: Start: 03-09-2021 End: 03-09-2021 Chest 1 View (Portable) Comments: See Note; NOTES: [facility] Imaging Services [address] [place] [address] Chest 1 View (Portable) MR#: [id number] Acct: [id number] Name: JOSIE LANDIS Rep #: [id number] : 1965 F 55 From: Avila Rae MD PCP: Dr. Solis Cool DO Status: REG ER Study: Chest 1 View (Portable) Date of Exam: 03/09/21 Exam# [id number] Ordering Dr: Ronald Castro MD STUDY: X-RAY CHEST REASON FOR EXAM: Female, 55 years old. chest pain TECHNIQUE: Single AP portable view of the chest. COMPARISON: July 04, 2020. FINDINGS: No focal infiltrates or effusions. No pneumothorax. Normal size heart. Normal mediastinum and saloni. Normal visualized pulmonary arteries. Normal visualized aortic arch and descending thoracic aorta. Normal visualized thoracic spine. Normal visualized ribs, clavicles, and shoulders. There is no demonstrated abnormality of the visualized soft tissue structures of the upper abdomen. RAD/Chest 1 View (Portable) IMPRESSION: Normal x-ray examination of the chest. Electronically Signed: Avila Rae MD at 2:24 EST , Service support , CC: Dr. Ronald Castro MD; Dr. Solis Cool DO Physical Chemistry Teacher: Signed Solis Cool DO Work Phone: Start: 07-15-2020 End: 07-15-2020 Venous Duplex US, Unilateral Comments: See Note; NOTES: [facility] Cardiovascular Services [address] [place] [address] Venous Duplex US, Unilateral 07/15/20 1402 MR#: [id number] Acct: [id number] Name: JOSIE LANDIS Rep #: [id number] : 1965 54 From: Yanick Marrero MD Attending Dr: Paula Black NP-C Status: REG CLI Ordering Dr: Paula Black NP APPRENTICESHIP TRAINING REPRESENTATIVE-C Date: 07/15/20 Location: [facility] Sex: F C Admitted: Reason For Study: PAIN RIGHT LEFT GSV is normal. CFV is compressible, spontaneous, phasic, CFV is compressible, spontaneous, phasic, competent, and demonstrates normal competent and demonstrates normal augmentation. augmentation. FV is compressible, spontaneous, phasic, competent and demonstrates normal augmentation. POP V is compressible, spontaneous, phasic, competent and demonstrates normal augmentation. T/P Trunk is compressible. PTV is compressible. RT PerV is compressible. Procedure Exam performed in department. A preliminary report was called and/or faxed to Paula Black. Interpretation Summary Deep veins of the right lower extremity are patent and compressible segmentally. There is no evidence of right lower extremity deep vein thrombosis. Valvular competence appears intact within the proximal deep venous system on the right . The right great saphenous vein appears patent and compressible segmentally. _ Ordering Physician: Paula Black Referring Physician: SOLIS COOL Performed By: Brianda Harris, IVANCS, RVT 07/15/202220 Date Yanick Marrero MD CC: APPRENTICESHIP TRAINING REPRESENTATIVE-C Paula Black; Dr. Solis Cool, DO Date Dictated: 07/15/20 1402 Date Transcribed: 07/15/202220 Physical Chemistry Teacher: Signed Paula Black Work Phone: Start: 07-04-2020 End: 07-04-2020 Chest PA and Lateral Comments: See Note; NOTES: [facility] Radiology [address] [place] [address] Chest PA and Lateral MR#: [id number] Acct: [id number] Name: JOSIE LANDIS Rep #: [id number] : 1965 F 54 From: Meliton blake MD PCP: Dr. Solis Cool DO Status: DEP AMB Study: Chest PA and Lateral Date of Exam: 07/04/20 Exam# [id number] Ordering Dr: Solis Cool DO STUDY: X-RAY CHEST REASON FOR EXAM: Female, 54 years old. Cough, HX COVID TECHNIQUE: PA and lateral views of the chest. COMPARISON: Comparison is made with prior study dated 2020. FINDINGS: Hyperinflation. The lungs are clear. There is no demonstrated pleural abnormality. Normal size heart. Normal mediastinum and saloni. Normal visualized pulmonary arteries. Normal visualized aortic arch and descending thoracic aorta. There is demineralization of the osseous structures. Normal visualized ribs, clavicles, and shoulders. There is no demonstrated abnormality of the visualized soft tissue structures of the upper abdomen. RAD/Chest PA and Lateral IMPRESSION: Hyperinflation. The lungs are clear. Electronically Signed: Meliton Barrios MD at 13:05 EST , Service support , CC: Dr. Solis Cool DO Physical Chemistry Teacher: Signed Solis Cool Work Phone: Start: 06-28-2020 End: 06-28-2020 Chest PA and Lateral Comments: See Note; NOTES: [facility] [address] [facility] [place] [address] Chest PA and Lateral MR#: [id number] Acct: [id number] Name: JOSIE LANDIS Rep #: [id number] : 1965 F 54 From: Meliton blake MD PCP: Dr. Solis Cool, Status: DEP AMB Study: Chest PA and Lateral Date of Exam: 06/28/20 Exam# [id number] Ordering Dr: Solis Cool DO STUDY: X-RAY CHEST REASON FOR EXAM: Female, 54 years old. ABNORMAL LUNG SOUND , hx of covid 3 months ago, has not felt good since TECHNIQUE: PA and lateral views of the chest. COMPARISON: Comparison is made with prior study dated 03/04/2020. FINDINGS: Hyperinflation. The lungs are clear. There is no demonstrated pleural abnormality. Normal size heart. Normal mediastinum and saloni. Normal visualized pulmonary arteries. Normal visualized aortic arch and descending thoracic aorta. There is demineralization of the osseous structures. Normal visualized ribs, clavicles, and shoulders. Status post cholecystectomy. RAD/Chest PA and Lateral IMPRESSION: Hyperinflation. The lungs are clear. Electronically Signed: Meliton Barrios MD at 10:55 EST , Service support , CC: Dr. Solis Cool DO Physical Chemistry Teacher: Signed Solis Cool Work Phone: Start: 06-25-2020 End: 06-25-2020 Emergency Department Summary Comments: See Note; NOTES: [facility] Medical Records Department [address] [place] [address] Emergency Department Summary 06/25/20 MR#: [id number] Acct: [id number] Name: JOSIE LANDIS Rep #: [id number] : 1965 54 From: Luc Richey DO PCP: Dr. Solis Cool DO Status:REG ER History of Present Illness Chief Complaint: Shortness of Breath Informant: Patient Narrative: 54-year-old female presenting with shortness of breath. She states that she has had shortness of breath since she had Covid in April. She states that 2 weeks ago she was admitted for chest pressure. She had a normal echocardiogram. She had a negative CTA for PE or other abnormalities. 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 She states yesterday was a little bit worse. Patient admits to smoking but is trying to cut down. She has no diagnosis of COPD or asthma. Past Medical History - Allergies and Home Meds Allergies/Adverse Reactions: Allergies aspirin [ASA] Allergy (Verified 06/25/20 09:01) Other budesonide [From Symbicort] Allergy (Verified 06/25/20 09:01) Anaphylaxis formoterol [From Symbicort] Allergy (Verified 06/25/20 09:01) Anaphylaxis Penicillins [PCN] Allergy (Verified 06/25/20 09:01) Hives tape Allergy (Uncoded 06/25/20 09:01) Hives Primary Care Physician: Solis Cool DO [Primary Care Provider] - Past Medical History: - - CAD, cardiac stents Surgical History: noncontributory Lives: Spouse/ Significant Other Smoking Status: Former smoker Alcohol: None Drugs: None Review of Systems General: Denies: Chills, Fever, Sweats Eyes: Denies: Visual changes - bilaterally, Diplopia ENT: Denies: Rhinorrhea, Sore throat Cardiovascular: Denies: Chest pain, Palpitations Respiratory: Reports: Dyspnea, Dyspnea on exertion Gastrointestinal: Denies: Abdominal pain, Nausea Genitourinary: Denies: Dysuria, Hematuria Musculoskeletal: Denies: Myalgias, Arthralgias Skin: Denies: Rash, Abscess Neurological: Denies: Headache, Weakness, Parasthesia Psych: Denies: Depression, Anxiety Physical Exam Vital Signs/Narrative: Vital Signs Temp Pulse Resp BP Pulse Ox 06/25/20 09:01 96.3 F L 91 22 H 127/83 H 95 Inital Vital Signs reviewed: Yes General: Well nourished, No Acute Distress Head: Normocephalic, Atraumatic Eyes: Perrl, EOMI ENT: Moist mucous membranes, No rhinorrhea Respiratory: No distress, Chest nontender, Wheezing Extremities: Nontender, No edema Skin: Normal color, No rash. Negative for: Cyanosis, Diaphoresis Neurological: Alert, Oriented x3, Cranial nerves II-XII grossly intact Psychological: Normal affect, Normal Mood Diagnostic/Tx/Re-eval - Rhythm Strip Rhythm Strip: Sinus Rhythm Rate: 74 - Medical Decision Making 54-year-old female presenting with shortness of breath. On examination she is wheezing. 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 Patient states she continues to smoke but has cut down. Review of the medical record in [facility] work was normal with exception of leukopenia. Patient had a negative CTA. Patient states that her echocardiogram on admission was normal. Protocol EKG interpreted by myself which shows a sinus rhythm without acute ischemic changes. Given patient's most recent extensive work-up I do not believe she needs lab work or imaging at this time. Since she is wheezing I will give her breathing treatments and prednisone. Patient reevaluated after breathing treatments and states she feels much improved. Her wheezing has resolved on reevaluation. I will start her on doxycycline as well. Patient counseled to discontinue smoking. Patient will be discharged home with doxycycline, prednisone burst. She states she already has an inhaler at home. Patient counseled to follow-up with her PCP to ensure resolution. Impression: 1. Acute bronchitis ED Disposition - Plan for ED Patient: Disposition: Home or Assisted Living Instructions: ED Bronchitis with Wheezing (Adult) Prescriptions: Doxycycline 100 mg PO BID #20 cap Prescription Printed predniSONE tablet 60 mg PO DAILY #15 tab Prescription Printed Referrals: Solis Cool DO [Primary Care Provider] - What to do if you have Problems For any increased pain, shortness of breath, bleeding, nausea or vomiting, chest pain, or any unexpected problems, contact your Primary Care Provider. Call [facility] ([phone]) or report to the closest Emergency Room. Call 911 if necessary. 06/25/20 1008 <Electronically signed by Luc Richey DO> Date Luc Richey DO Cosigner Signature (If Indicated): Date CC: DO Solis Jose Start: 06-25-2020 End: 06-26-2020 12 Lead EKG Comments: See Note; NOTES: [facility] Cardiovascular Services [address] [place] [address] 12 Lead EKG 06/25/20 0947 MR#: [id number] Acct: [id number] Name: JOSIE LANDIS Rep #: [id number] : 1965 54 From: William Shine MD Attending Dr: Status: DEP ER Ordering Dr: Luc Richey DO Date: 06/25/20 Location: ED Sex: F C Admitted: Test Reason : SOB Blood Pressure : / mmHG Vent. Rate : 074 BPM Atrial Rate : 074 BPM P-R Int : 164 ms QRS Dur : 088 ms QT Int : 372 ms P-R-T Axes : 057 066 064 degrees QTc Int : 412 ms Normal sinus rhythm Possible Left atrial enlargement Nonspecific T wave abnormality Abnormal ECG Confirmed by DORI SHEEHAN, WILLIAM ([id number]), editor & co founder JANEL CHEN ([id number]) on 06/26/2020 12:48:05 PM Referred By: EDU Confirmed By:WILLIAM SHINE MD 06/26/20 1248 Date William Shine MD CC: Dr. Luc Richey DO; Dr. Solis Cool DO Signed Solis Cool Start: 04-11-2020 End: 04-11-2020 Discharge Summary Comments: See Note; NOTES: [facility] Medical Records Department [address] [place] [address] Discharge Summary 04/11/20 0903 MR#: [id number] Acct: [id number] Name: SABIHAJOSIE Ruy Rep #: [id number] : 1965 54 From: Eleonora Buck PCP: Status:REG RCR Y Location: [facility] Discharge Summary: Initial Evaluation Date: 11/23/2019 Diagnosis: MUSCLE SPASM No. of Visits: 4 Date of last visit: 04/01/2020 This patient is being discharged from our care at the [facility]. Thank you, Eleonora Buck, LMT 04/11/20 0904 <Electronically signed by Eleonora Buck > Date Eleonora Buck Cosigner Signature (if applicable): Date CC: DEONTE CHANDLER; Eleonora Buck Signed Solis Cool Start: 03-04-2020 End: 03-04-2020 Chest PA and Lateral Comments: See Note; NOTES: [facility] [address] [place] [address] Chest PA and Lateral MR#: [id number] Acct: [id number] Name: JOSIE LANDIS Rep #: [id number] : 1965 F 54 From: Meliton blake MD PCP: Dr. Solis Cool, DO Status: DEP [facility] Study: Chest PA and Lateral Date of Exam: 03/04/20 Exam# [id number] Ordering Dr: Paula Black NP APPRENTICESHIP TRAINING REPRESENTATIVE-C STUDY: X-RAY CHEST REASON FOR EXAM: Female, 54 years old. COUGH TECHNIQUE: PA and lateral views of the chest. COMPARISON: Comparison is made with prior study dated 03/14/2019. FINDINGS: Hyperinflation. The lungs are clear and expanded. There is no demonstrated pleural abnormality. Normal size heart. Normal mediastinum and saloni. Normal visualized pulmonary arteries. Normal visualized aortic arch and descending thoracic aorta. Normal visualized thoracic spine. Normal visualized ribs, clavicles, and shoulders. Prior cholecystectomy. RAD/Chest PA and Lateral IMPRESSION: Hyperinflation. Electronically Signed: Meliton Denis, at 14:34 EST , Service support , CC: JULIO Black; Dr. Solis Cool DO Physical Chemistry Teacher: Signed Paula Black Work Phone: Start: 11-29-2019 End: 11-29-2019 Dexa Bone Density Study Comments: See Note; NOTES: [facility] Imaging Services [address] [place] [address] Dexa Bone Density Study MR#: [id number] Acct: [id number] Name: JOSIE LANDIS Rep #: [id number] : 1965 F 54 From: Meliton blake MD PCP: Dr. Solis Cool DO Status: [facility] Study: Dexa Bone Density Study Date of Exam: 11/29/19 Exam# [id number] Ordering Dr: Solis Cool DO STUDY: DUAL ENERGY X-RAY ABSORPTIOMETRY / DXA REASON FOR EXAM: Female, 54 years old. SMOKER -- USES STEROID INHALER DAILY x 1 YR -- TAKES ANTI-SEIZURE MEDS FOR BIPOLAR DISORDER -- TAKES MULTIVITAMIN -- DOES MODERATE AMOUNT OF EXERCISE -- YUDY OF 2.25 INCHES TECHNIQUE: Bone Mineral Density (BMD) measurements of lumbar spine and bilateral hips were obtained. COMPARISON: None. FINDINGS: Lumbar Spine (L1-L4): g/cm2 (0.981) / T-score (-1.7) / Z-score (-1.1) Findings are suggestive of osteopenia with a moderate fracture risk. Left Femur Total: g/cm2 (0.912) / T-score (-0.8) / Z-score (-0.2) Left Femoral Neck: g/cm2 (0.838) / T-score (-1.4) / Z-score (-0.6) Right Femur Total: g/cm2 (0.896) / T-score (-0.9) / Z-score (-0.3) Right Femoral Neck: g/cm2 (0.804) / T-score (-1.7) / Z-score (-0.8) BD/Dexa Bone Density Study IMPRESSION: The patient is considered osteopenic as outlined below according to World Pete Organization (WHO) criteria with a moderate fracture risk. Reference Information: The T-score is the number of standard deviations above or below the standard which is normal for young adults at their peak bone mineral density. The World Health Organization (WHO) interprets the T-scores as follows: Above -1 Normal bone density Between -1 and -2.5 Osteopenia Equal to / or below -2.5 Osteoporosis As a practical clinical guideline, osteopenia may be graded as follows: Mild -1 through -1.5 Moderate -1.6 through -2.0 Severe -2.1 through -2.4 The Z-score is the number of standard deviations above or below age-matched controls. A Z-score of less than -1.5 would be considered abnormal. References: 1. NIH Osteoporosis and Related Bone Diseases http://www.osteo.org 2. International Society for Clinical Densitometry http://www.iscd.org 3. National Osteoporosis Foundation http://www.nof.org Electronically Signed: Meliton Barrios, at 15:12 EDT , Service support , CC: Dr. Solis Cool, Physical Chemistry Teacher: Signed Solis Cool Work Phone: Start: 11-29-2019 End: 12-08-2019 SCREEN MAMM (CAD) W/HAYDEE BILAT Comments: See Note; NOTES: [facility] Imaging Services [address] [place] [address] SCREEN MAMM (CAD) W/HAYDEE BILAT MR#: [id number] Acct: [id number] Name: JOSIE LANDIS Rep #: [id number] : 1965 F 54 From: Meliton blake MD PCP: Dr. Solis Cool, Status: [facility] Study: SCREEN MAMM (CAD) W/HAYDEE BILAT Date of Exam: 0 11/29/19 Exam# [id number] Ordering Dr: Solis Colo DO MAMMOGRAPHY - BILATERAL SCREENING REASON FOR EXAM: Female, 54 years old. Routine annual screening examination. PERTINENT HISTORY: Non-contributory. TECHNIQUE: Digital bilateral breast haydee (3D mammographic acquisition) in the CC and MLO projections. 2-D mediolateral oblique (MLO) and craniocaudad (CC) views of both breasts were obtained. CAD: Full Field Digital Mammography with Computer Added Detection was performed. COMPARISON: Comparison is made with prior outside examination dated 06/07/2015. FINDINGS: Breast Composition: The breasts are heterogeneously dense, which may obscure small masses. There are no dominant masses or suspicious calcifications. Stable benign-appearing bilateral axillary lymph nodes. No other significant abnormalities are identified. There has been no significant change since the prior study. BI/SCREEN MAMM (CAD) W/HAYDEE BILAT IMPRESSION: Stable bilateral screening mammogram. Yearly follow-up mammogram recommended. (A) ASSESSMENT CATEGORY: BIRADS Category 2: Benign. A letter regarding these results will be sent to the patient by the facility within 30 days. Approximately 10% of breast cancers are not detected by mammography. A normal mammogram should not delay biopsy of a clinically suspicious abnormality. [id number] Electronically Signed: Meliton Barrios, at 8:40 EDT , Service support , CC: Dr. Solis Cool, DO Physical Chemistry Teacher: Signed Solis Cool Work Phone: cardiac stents x2 Shonna Gra vius cardiac stents x2 Tio Smi th cardiac stents x2 Shonna Gra vius cardiac stents x2 Tio Blu is cardiac stents x2 Teagan Coff man cardiac stents x2 Radha Molder Apprentice ss cardiac stents x2 Tio Blu is cardiac stents x2 Tio Blu is cardiac stents x2 Radha Molder Apprentice ss cardiac stents x2 Radha Molder Apprentice ss cardiac stents x2 Rachel Sla rb cardiac stents x2 Shonna Gra vius cardiac stents x2 Radha Molder Apprentice ss cardiac stents x2 Shonna Gra vius cardiac stents x2 Tio Blu is cardiac stents x2 Tio Blu is cardiac stents x2 Radha Molder Apprentice ss INTEGRATION DEVELOPER cardiac stents x2 Lulú Mur phy MA cardiac stents x2 Shonna Gra vius CAN TOP SETTER cardiac stents x2 Shonna Gra vius CAN TOP SETTER cardiac stents x2 Tio Blu is INTEGRATION DEVELOPER cardiac stents x2 Tio Blu is INTEGRATION DEVELOPER cardiac stents x2 Rachel Sla rb INTEGRATION DEVELOPER cardiac stents x2 Kayela Rad flores CAN TOP SETTER cardiac stents x2 Kayela Rad flores CAN TOP SETTER cardiac stents x2 Lulú Mur phy MA cardiac stents x2 Fran Pry or INTEGRATION DEVELOPER gallbladder removal Shonna barnhart Comment on above: 2001 gallbladder removal Tio english Comment on above: 2001 gallbladder removal Shonna barnhart Comment on above: 2001 gallbladder removal Tio del toro Comment on above: 2001 gallbladder removal Teagan Co ffman Comment on above: 2001 gallbladder removal Radha gonzales Comment on above: 2001 gallbladder removal Tio del toro Comment on above: 2001 gallbladder removal iTo del toro Comment on above: 2001 gallbladder removal Radha gonzales Comment on above: 2001 gallbladder removal Radha gonzales Comment on above: 2001 gallbladder removal Rachel jamil Comment on above: 2001 gallbladder removal Shonna barnhart Comment on above: 2001 gallbladder removal Radha gonzales Comment on above: 2001 gallbladder removal Shonna barnhart Comment on above: 2001 gallbladder removal Tio del toro Comment on above: 2001 gallbladder removal Tio del toro Comment on above: 2001 gallbladder removal Radha gonzales INTEGRATION DEVELOPER Comment on above: 2001 gallbladder removal Lulú M urphy MA Comment on above: 2001 gallbladder removal Shonna barnhart CAN TOP SETTER Comment on above: 2001 gallbladder removal Shonna Apollo barnhart CAN TOP SETTER Comment on above: 2001 gallbladder removal Tio del toro INTEGRATION DEVELOPER Comment on above: 2001 gallbladder removal Tio del toro INTEGRATION DEVELOPER Comment on above: 2001 gallbladder removal Rachel Redmond larb INTEGRATION DEVELOPER Comment on above: 2001 gallbladder removal Darryl hirsch CAN TOP SETTER Comment on above: 2001 gallbladder removal Farhanababarelder Irving hirsch CAN TOP SETTER Comment on above: 2001 gallbladder removal Lulú Arelis jensen MA Comment on above: 2001 gallbladder removal Fran Aurelia ryor INTEGRATION DEVELOPER Comment on above: 2001 History of placement of stent for coronary artery disease History of heart artery stent Dr. Solis Cool Work Phone: Comment on above: JUAN ANTONIO to mid RCA and proximal LAD on 2018; JUAN ANTONIO to mid circumflex on 05/21/2022; History of placement of stent for coronary artery disease History of heart artery stent Russ DAVIS Hysterectomy Shonna Gravius Comment on above: 1994 [place] Hysterectomy Tio Patrick Comment on above: 1994 [place] Hysterectomy Shonna Gravius Comment on above: 1994 [place] Hysterectomy Tio Casimiro Comment on above: 1994 [place] Hysterectomy Teagan Gillette Comment on above: 1994 [place] Hysterectomy Radha Cross Comment on above: 1994 [place] Hysterectomy Tio Kirkpatrick Comment on above: 1994 [place] Hysterectomy Tio Casimiro Comment on above: 1994 [place] Hysterectomy Radha Cross Comment on above: 1994 [place] Hysterectomy Radha Cross Comment on above: 1994 [place] Hysterectomy Rachel Slarb Comment on above: 1994 [place] Hysterectomy Shonna Gravius Comment on above: 1994 [place] Hysterectomy Radha Cross Comment on above: 1994 [place] Hysterectomy Shonna Gravius Comment on above: 1994 [place] Hysterectomy Tio Casimiro Comment on above: 1994 [place] Hysterectomy Tio Casimiro Comment on above: 1994 [place] Hysterectomy Radha Cross LP N Comment on above: 1994 [place] Hysterectomy Lulú Friedman Comment on above: 1994 [place] Hysterectomy Shonna Gravius CAN TOP SETTER Comment on above: 1994 [place] Hysterectomy Shonna Gravius CAN TOP SETTER Comment on above: 1994 [place] Hysterectomy Tio Kirkpatrick LP N Comment on above: 1994 [place] Hysterectomy Tio Kirkpatrick LP N Comment on above: 1994 [place] Hysterectomy Rachel Slarb LP N Comment on above: 1994 [place] Hysterectomy Kayela Ruston CAN TOP SETTER Comment on above: 1994 [place] Hysterectomy Kayela Marcia CAN TOP SETTER Comment on above: 1994 [place] Hysterectomy Lulú Friedman Comment on above: 1994 [place] Hysterectomy Fran John Alcala Comment on above: 1994 [place] Other bilateral liga tion and division of fallopian tubes Shonna Gravius Comment on above: 1991 Other bilateral liga tion and division of fallopian tubes Tio Patrick Comment on above: 1991 Other bilateral liga tion and division of fallopian tubes Shonna Gravius Comment on above: 1991 Other bilateral liga tion and division of fallopian tubes Tio Kirkpatrick Comment on above: 1991 Other bilateral liga tion and division of fallopian tubes Teagan Gillette Comment on above: 1991 Other bilateral liga tion and division of fallopian tubes Radha Mcadams Comment on above: 1991 Other bilateral liga tion and division of fallopian tubes Tio Kirkpatrick Comment on above: 1991 Other bilateral liga tion and division of fallopian tubes Tio Kirkpatrick Comment on above: 1991 Other bilateral liga tion and division of fallopian tubes Radha Mcadams Comment on above: 1991 Other bilateral liga tion and division of fallopian tubes Radha Mcadams Comment on above: 1991 Other bilateral liga tion and division of fallopian tubes Rachel Mason Comment on above: 1991 Other bilateral liga tion and division of fallopian tubes Shonna Gravius Comment on above: 1991 Other bilateral liga tion and division of fallopian tubes Radha Mcadams Comment on above: 1991 Other bilateral liga tion and division of fallopian tubes Shonna Gravius Comment on above: 1991 Other bilateral liga tion and division of fallopian tubes Tio Kirkpatrick Comment on above: 1991 Other bilateral liga tion and division of fallopian tubes Tio Kirkpatrick Comment on above: 1991 Other bilateral liga tion and division of fallopian tubes Radha Mcadams INTEGRATION DEVELOPER Comment on above: 1991 Other bilateral liga tion and division of fallopian tubes Lulú Merrill MA Comment on above: 1991 Other bilateral liga tion and division of fallopian tubes Shonna Gravius CAN TOP SETTER Comment on above: 1991 Other bilateral liga tion and division of fallopian tubes Shonna Gravius CAN TOP SETTER Comment on above: 1991 Other bilateral liga tion and division of fallopian tubes Tio Kirkpatrick INTEGRATION DEVELOPER Comment on above: 1991 Other bilateral liga tion and division of fallopian tubes Tio Kirkpatrick INTEGRATION DEVELOPER Comment on above: 1991 Other bilateral liga tion and division of fallopian tubes Rachel Slarb INTEGRATION DEVELOPER Comment on above: 1991 Other bilateral liga tion and division of fallopian tubes Darryl Kennedy CMA Comment on above: 1991 Other bilateral liga tion and division of fallopian tubes Darryl Kenndey CMA Comment on above: 1991 Other bilateral liga tion and division of fallopian tubes Lulú Merrill MA Comment on above: 1991 Other bilateral liga tion and division of fallopian tubes Fran [place] INTEGRATION DEVELOPER Comment on above: 1991 shoulder replacment Shonna G bronwyn Comment on above: 2020 shoulder replacment Tio english Comment on above: 2020 shoulder replacment Shonna G bronwyn Comment on above: 2020 shoulder replacment Tio del toro Comment on above: 2020 shoulder replacment Teagan wise Comment on above: 2020 shoulder replacment Radha gonzales Comment on above: 2020 shoulder replacment Tio del toro Comment on above: 2020 shoulder replacment Tio del toro Comment on above: 2020 shoulder replacment Radha gonzales Comment on above: 2020 shoulder replacment Radha gonzales Comment on above: 2020 shoulder replacment Rachel S larb Comment on above: 2020 shoulder replacment Shonna barnhart Comment on above: 2020 shoulder replacment Radha gonzales Comment on above: 2020 shoulder replacment Shonna barnhart Comment on above: 2020 shoulder replacment Tio del toro Comment on above: 2020 shoulder replacment Tio del toro Comment on above: 2020 shoulder replacment Radha gonzales INTEGRATION DEVELOPER Comment on above: 2020 shoulder replacment Lulú jensen MA Comment on above: 2020 shoulder replacment Shonna G bronwyn CAN TOP SETTER Comment on above: 2020 shoulder replacment Shonna G bronwyn [facility] Comment on above: 2020 shoulder replacment Tio mccormicks INTEGRATION DEVELOPER Comment on above: 2020 shoulder replacment Tio mccormicks INTEGRATION DEVELOPER Comment on above: 2020 shoulder replacment Rachel S larb INTEGRATION DEVELOPER Comment on above: 2020 shoulder replacment Darryl hirsch CMA Comment on above: 2020 shoulder replacment Darryl hirsch CMA Comment on above: 2020 shoulder replacment Lulú jensen MA Comment on above: 2020 shoulder replacment Fran P ryor INTEGRATION DEVELOPER Comment on above: 2020 Stent replacement Rachel Sla rb INTEGRATION DEVELOPER Comment on above: 05/2022 Stent replacement Kababara Ga flores CAN TOP SETTER Comment on above: 05/2022 Stent replacement Kayela Rad sandra CAN TOP SETTER Comment on above: 05/2022 Stent replacement Lulú osorio MA Comment on above: 05/2022 Stent replacement Fran Pry or INTEGRATION DEVELOPER Comment on above: 05/2022 throat surgery/hernia Shonna Gravius Comment on above: 2014 throat surgery/hernia Tio Patrick Comment on above: 2014 throat surgery/hernia Shonna Gravius Comment on above: 2014 throat surgery/hernia Tio Kirkpatrick Comment on above: 2014 throat surgery/hernia Teagan Gillette Comment on above: 2014 throat surgery/hernia Radha Mcadams Comment on above: 2014 throat surgery/hernia Tio Kirkpatrick Comment on above: 2014 throat surgery/hernia Tio Kirkpatrick Comment on above: 2014 throat surgery/hernia Radha Abbe Comment on above: 2014 throat surgery/hernia Radha Cross Comment on above: 2014 throat surgery/hernia Rachel Slarb Comment on above: 2014 throat surgery/hernia Shonna Gravius Comment on above: 2014 throat surgery/hernia Radha Mcadams Comment on above: 2014 throat surgery/hernia Shonna Gravius Comment on above: 2014 throat surgery/hernia Tio Kirkpatrick Comment on above: 2014 throat surgery/hernia Tio Kirkpatrick Comment on above: 2014 throat surgery/hernia Radha Cross INTEGRATION DEVELOPER Comment on above: 2014 throat surgery/hernia Lulú Merrill MA Comment on above: 2014 throat surgery/hernia Shonna Gravius CAN TOP SETTER Comment on above: 2014 throat surgery/hernia Shonna Gravius CAN TOP SETTER Comment on above: 2014 throat surgery/hernia Tio Kirkpatrick INTEGRATION DEVELOPER Comment on above: 2014 throat surgery/hernia Tio Kirkpatrick INTEGRATION DEVELOPER Comment on above: 2014 throat surgery/hernia Rachel Slarb INTEGRATION DEVELOPER Comment on above: 2014 throat surgery/hernia Darryl Kennedy CAN TOP SETTER Comment on above: 2014 throat surgery/hernia Farhanayela Marcia CAN TOP SETTER Comment on above: 2014 throat surgery/hernia Lulú Merrill MA Comment on above: 2014 throat surgery/hernia Fran John INTEGRATION DEVELOPER Comment on above: 2014 Tonsillectomy Shonna Gravius Tonsillectomy Tio Patrick Tonsillectomy Shonna Gravius Tonsillectomy Tio Kirkpatrick Tonsillectomy Teagan Gillette Tonsillectomy Radha Mcadams Tonsillectomy Tio Kirkpatrick Tonsillectomy Tio Kirkpatrick Tonsillectomy Radha Mcadams Tonsillectomy Radha Mcadams Tonsillectomy Rachel Mason Tonsillectomy Shonna Gravius Tonsillectomy Radha Cross Tonsillectomy Shonna Gravius Tonsillectomy Tio Casimiro Tonsillectomy Tio Casimiro Tonsillectomy Radha Cross L PN Tonsillectomy Lulú Merrill MA Tonsillectomy Shonna Gravius CAN TOP SETTER Tonsillectomy Shonna Gravius CAN TOP SETTER Tonsillectomy Tio Casimiro L PN Tonsillectomy Tio Casimiro L PN Tonsillectomy Rachel Rominarb L PN Tonsillectomy Kayela Marcia CAN TOP SETTER Tonsillectomy Kayela Ruston CAN TOP SETTER Tonsillectomy Lulú Merrill MA Tonsillectomy Fran [place] L PN Plan of Treatment Date Care Activity Detail Author Start: 07-22-2027 Diabetes Screening Diabetes Screening [facility] Start: 11-28-2026 Diabetes Screening Diabetes Screening [facility] Start: 06-01-2026 Diabetes Screening Diabetes Screening [facility] Start: 12-15-2025 DIABETES SCREEN DIABETES SCREEN [facility] Start: 12-15-2025 Diabetes Screening Diabetes Screening [facility] Start: 12-09-2025 DIABETES SCREEN DIABETES SCREEN [facility] Start: 11-20-2025 DIABETES SCREEN DIABETES SCREEN [facility] Start: 11-05-2025 DIABETES SCREEN DIABETES SCREEN [facility] Start: 11-02-2025 DIABETES SCREEN DIABETES SCREEN [facility] Start: 01-25-2025 End: 01-25-2025 Patient encounter procedure 01/25/2025 9:00 AM EDT Office Visit Neurology [address] [place] [address] Tania Monroy MD [address] [place] [address] Seizures Neurology Comment on above: Seizures Start: 01-01-2025 Influenza vaccination [facility] Start: 10-13-2024 End: 10-13-2024 ambulatory 10/13/2024 11:[address] [facility] [address] [place] [address] Codie Soto MD [address] [address] MRI brain vv w/ Dr. Huizar 1-2 days later [facility] Comment on above: MRI brain vv w/ Dr. Huizar 1-2 days late r Start: 06-21-2024 End: 09-20-2024 10-Hydroxycarbazepine [Mass/volume] in Serum or Plasma OXCARBAZEPINE BLD Lab Routine Recurrent seizures (HCC) Expected: 06/21/2024, Expires: 09/20/2024 [facility] Comment on above: Expected: 06/21/2024, Expires: Start: 06-21-2024 End: 09-20-2024 CBC panel - Blood by Automated count COMPLETE BLOOD COUNT Lab Routine Recurrent seizures (HCC) Expected: 06/21/2024, Expires: 09/20/2024 [facility] Work Phone: Comment on above: Expected: 06/21/2024, Expires: Start: 06-21-2024 End: 09-20-2024 Comprehensive metabolic 2000 panel - Serum or Plasma COMPREHENSIVE METABOLIC PANEL Lab Routine Recurrent seizures (HCC) Expected: 06/21/2024, Expires: 09/20/2024 [facility] Comment on above: Expected: 06/21/2024, Expires: Start: 06-21-2024 End: 06-21-2024 ambulatory 06/21/2024 10:00 AM EST [facility] Neurology [address] [id number] Tania Monroy MD [address] [place] [address] 3 monh Neurology Comment on above: 3 monh Start: 03-30-2024 BP Controlled (<130/80) BP Controlled (<130/80) [facility] Start: 01-28-2024 End: 01-28-2024 Patient encounter procedure Neurology Comment on above: EEG/ New Consult EEG/New Consult Start: 01-19-2024 End: 01-19-2024 FQHC visit, estab pt 01/19/2024 10:[address] [facility] [address] [id number] Clair Bahena, DIRECTOR SCHOOL OF NURSING.TECHNOLOGY MANAGER [address] [place] [address] Scheduling Request - Established Patient [facility] Comment on above: Scheduling Request - Established Patient Start: 01-17-2024 End: 01-17-2024 Patient encounter procedure 01/17/2024 10:00 AM EDT Appointment Radiology [address] [place], [place] [phone] INCLUDE PERFUSION Radiology Comment on above: INCLUDE PERFUSION Start: 01-13-2024 BP Controlled (<130/80) BP Controlled (<130/80) [facility] Start: 01-02-2024 Covid-19 Vaccine ( season) Covid-19 Vaccine () [facility] Start: 01-02-2024 Covid-19 Vaccine () Covid-19 Vaccine () [facility] Start: 01-02-2024 Influenza vaccination [facility] Start: 12-10-2023 BP CONTROLLED (<130/80) BP CONTROLLED (<130/80) [facility] Start: 12-02-2023 End: 12-02-2023 ambulatory 12/02/2023 3:00 PM EDT [facility] [address] [place], [place] [id number] Libertad Santiago, DIRECTOR SCHOOL OF NURSING.TECHNOLOGY MANAGER [address] [phone] F/U Cerebrovascular Comment on above: F/U Start: 11-28-2023 BP CONTROLLED (<130/80) BP CONTROLLED (<130/80) [facility] Start: 11-03-2023 BP CONTROLLED (<130/80) BP CONTROLLED (<130/80) [facility] Start: 10-21-2023 End: 08-19-2024 MR Brain WO and W contrast IV MRI BRAIN WO/W IVCON Radiology Routine SPECIAL NEEDS BABYSITTER 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 disorder (HCC) Brain lesion Expected: 10/21/2023, Expires: 08/19/2024 [facility] Work Phone: Comment on above: Expected: 10/21/2023, Expires: 5 Start: 10-20-2023 End: 10-20-2023 Follow-up encounter 10/20/2023 9:[address] [facility] [address] [place] [address] Codie Soto MD [address] [place] [address] Brain lesion follow up [facility] Comment on above: Brain lesion follow up Start: 08-02-2023 End: 09-24-2023 Mri brain brain stem w/o w/contrast material MRI BRAIN WO/W IVCON Radiology Routine Cerebral infarction, unspecified mechanism (HCC) Expected: 08/02/2023, Expires: 09/24/2023 [facility] Work Phone: Comment on above: Expected: 08/02/2023, Expires: 4 Start: 06-18-2023 End: 09-17-2023 Borrelia burgdorferi IgM Ab [Presence] in Cerebral spinal fluid by Immunoblot [facility] Work Phone: Comment on above: Expected: 06/18/2023, Expires: 4 Start: 06-18-2023 End: 09-17-2023 FUNGAL ABS WITH REFLEX, CSF [facility] Work Phone: Comment on above: Expected: 06/18/2023, Expires: 4 Start: 06-18-2023 End: 09-17-2023 HEIDI virus DNA [Presence] in Serum or Plasma by JOHN with probe detection [facility] Work Phone: Comment on above: Expected: 06/18/2023, Expires: 4 Start: 06-18-2023 End: 09-17-2023 MISC SEND OUT TST 1 MISC SEND OUT TST 1 Lab Routine Brain lesion Expected: 06/18/2023, Expires: 09/17/2023 [facility] Work Phone: Comment on above: Expected: 06/18/2023, Expires: 4 Start: 06-18-2023 End: 09-17-2023 [facility] Work Phone: Comment on above: Expected: 06/18/2023, Expires: 4 Start: 05-03-2023 Behavioral Health Screening Behavioral Health Screening [facility] Start: 05-03-2023 Depression Assessment Depression Assessment [facility] Start: 03-30-2023 End: 06-29-2023 IMMUNOFIXATION SCREEN, SERUM [facility] Work Phone: Comment on above: Expected: 03/30/2023, Expires: 4 Start: 03-30-2023 End: 06-29-2023 PROTEIN ELECTROPHORESIS SERUM W/INTERP [facility] Work Phone: Comment on above: Expected: 03/30/2023, Expires: 4 Start: 03-26-2023 End: 06-25-2023 OLIGOCLONAL BAND CSF [facility] Work Phone: Comment on above: Expected: 03/26/2023, Expires: 4 Start: 03-26-2023 End: 06-25-2023 TOURTELLOTTE CSF [facility] Work Phone: Comment on above: Expected: 03/26/2023, Expires: 4 Start: 03-17-2023 End: 06-16-2023 Borrelia burgdorferi DNA [Presence] in Unspecified specimen by JOHN with probe detection LYME DISEASE BY PCR Lab Routine Brain lesion Expected: 03/17/2023, Expires: 06/16/2023 [facility] Work Phone: Comment on above: Expected: 03/17/2023, Expires: 4 Start: 03-17-2023 End: 06-16-2023 EXTRA TUBES EXTRA TUBES Lab STAT Brain lesion 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 Visual field defect Expected: 03/17/2023, Expires: 06/16/2023 [facility] Work Phone: Comment on above: Expected: 03/17/2023, Expires: 4 Start: 03-17-2023 End: 06-16-2023 Glucose [Mass/volume] in Serum or Plasma GLUCOSE RANDOM BLD Lab Routine Brain lesion 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 Visual field defect Expected: 03/17/2023, Expires: 06/16/2023 [facility] Work Phone: Comment on above: Expected: 03/17/2023, Expires: 4 Start: 03-17-2023 End: 06-16-2023 MISC SEND OUT TST 1 MISC SEND OUT TST 1 Lab Routine Brain lesion 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 Visual field defect Expected: 03/17/2023, Expires: 06/16/2023 [facility] Work Phone: Comment on above: Expected: 03/17/2023, Expires: 4 Start: 03-17-2023 End: 06-16-2023 Protein [Mass/volume] in Cerebral spinal fluid PROTEIN CSF Lab Routine Brain lesion Expected: 03/17/2023, Expires: 06/16/2023 [facility] Work Phone: Comment on above: Expected: 03/17/2023, Expires: 4 Start: 02-22-2023 End: 05-24-2023 Borrelia burgdorferi DNA [Presence] in Unspecified specimen by JOHN with probe detection LYME DISEASE BY PCR Lab Routine Neoplasm of uncertain behavior of brain, supratentorial (HCC) Brain lesion Confusion Alexia Visual field defect Expected: 02/22/2023, Expires: 05/24/2023 [facility] Work Phone: Comment on above: Expected: 02/22/2023, Expires: 4 Start: 02-22-2023 End: 05-24-2023 FLOW CYTOMETRY FOR LEUKEMIA/LYMPHOMA (FCLL) FLOW CYTOMETRY FOR LEUKEMIA/LYMPHOMA (FCLL) Lab Routine Neoplasm of uncertain behavior of brain, supratentorial (HCC) Brain lesion Confusion Alexia Visual field defect Expected: 02/22/2023, Expires: 05/24/2023 [facility] Work Phone: Comment on above: Expected: 02/22/2023, Expires: 4 Start: 02-22-2023 End: 05-24-2023 Glucose [Mass/volume] in Serum or Plasma GLUCOSE RANDOM BLD Lab Routine Neoplasm of uncertain behavior of brain, supratentorial (HCC) Brain lesion Confusion Alexia Visual field defect Expected: 02/22/2023, Expires: 05/24/2023 [facility] Work Phone: Comment on above: Expected: 02/22/2023, Expires: 4 Start: 02-22-2023 End: 05-24-2023 Microorganism identified in Unspecified specimen by Culture AFB CULT + STAIN Microbiology Routine Neoplasm of uncertain behavior of brain, supratentorial (HCC) Brain lesion Confusion Alexia Visual field defect Expected: 02/22/2023, Expires: 05/24/2023 [facility] Work Phone: Comment on above: Expected: 02/22/2023, Expires: 4 Start: 02-22-2023 End: 05-24-2023 MISC SEND OUT TST 1 MISC SEND OUT TST 1 Lab Routine Neoplasm of uncertain behavior of brain, supratentorial (HCC) Brain lesion Confusion Alexia Visual field defect Expected: 02/22/2023, Expires: 05/24/2023 [facility] Work Phone: Comment on above: Expected: 02/22/2023, Expires: 4 Start: 01-12-2023 End: 03-14-2023 SPECIAL NEEDS BABYSITTER DEMYELINATING DISEASE EVALUATION, SERUM [facility] Work Phone: Comment on above: Expected: 01/12/2023, Expires: 3 Start: 01-01-2023 Covid-19 Vaccine ( season) Covid-19 Vaccine () [facility] Start: 01-01-2023 Influenza vaccination [facility] Start: 11-26-2022 Procedure Education Eprescribed prescriptions (G8553) [facility] Work Phone: Start: 11-17-2022 End: 01-17-2023 aPTT in Platelet poor plasma by Coagulation assay ACTIVATED PTT Lab Routine Brain mass Alexia Lesion of brain Speech disturbance, unspecified type Visual field defect Confusion Expected: 11/17/2022, Expires: 01/17/2023 [facility] Work Phone: Comment on above: Expected: 11/17/2022, Expires: 3 Start: 11-17-2022 End: 01-17-2023 AUTOIMMUNE ENCEPHALOPATHY EVALUATION, CSF AUTOIMMUNE ENCEPHALOPATHY EVALUATION, CSF Lab Routine Brain mass Alexia Lesion of brain Speech disturbance, unspecified type Visual field defect Confusion Expected: 11/17/2022, Expires: 01/17/2023 [facility] Work Phone: Comment on above: Expected: 11/17/2022, Expires: 3 Start: 11-17-2022 End: 01-17-2023 AUTOIMMUNE ENCEPHALOPATHY EVALUATION, SERUM AUTOIMMUNE ENCEPHALOPATHY EVALUATION, SERUM Lab Routine Brain mass Alexia Lesion of brain Speech disturbance, unspecified type Visual field defect Confusion Expected: 11/17/2022, Expires: 01/17/2023 [facility] Work Phone: Comment on above: Expected: 11/17/2022, Expires: 3 Start: 11-17-2022 End: 01-17-2023 Borrelia burgdorferi DNA [Presence] in Unspecified specimen by JOHN with probe detection LYME DISEASE BY PCR Lab Routine Brain mass Alexia Lesion of brain Speech disturbance, unspecified type Visual field defect Confusion Expected: 11/17/2022, Expires: 01/17/2023 [facility] Work Phone: Comment on above: Expected: 11/17/2022, Expires: 3 Start: 11-17-2022 End: 01-17-2023 Borrelia burgdorferi IgG and IgM panel - Serum LYME AB LATE >30 DAYS SYMPTOMS Lab Routine Brain mass Alexia Lesion of brain Speech disturbance, unspecified type Visual field defect Confusion Expected: 11/17/2022, Expires: 01/17/2023 [facility] Work Phone: Comment on above: Expected: 11/17/2022, Expires: 3 Start: 11-17-2022 End: 01-17-2023 C reactive protein [Mass/volume] in Serum or Plasma C-REACTIVE PROTEIN (CRP) Lab Routine Brain mass Alexia Lesion of brain Speech disturbance, unspecified type Visual field defect Confusion Expected: 11/17/2022, Expires: 01/17/2023 [facility] Work Phone: Comment on above: Expected: 11/17/2022, Expires: 3 Start: 11-17-2022 End: 01-17-2023 CBC W Auto Differential panel - Blood CBC + DIFF Lab Routine Brain mass Alexia Lesion of brain Speech disturbance, unspecified type Visual field defect Confusion Expected: 11/17/2022, Expires: 01/17/2023 [facility] Work Phone: Comment on above: Expected: 11/17/2022, Expires: 3 Start: 11-17-2022 End: 01-17-2023 Cobalamin (Vitamin B12) [Mass/volume] in Serum or Plasma VITAMIN B12 BLOOD Lab Routine Brain mass Alexia Lesion of brain Speech disturbance, unspecified type Visual field defect Confusion Expected: 11/17/2022, Expires: 01/17/2023 [facility] Work Phone: Comment on above: Expected: 11/17/2022, Expires: 3 Start: 11-17-2022 End: 01-17-2023 Comprehensive metabolic 2000 panel - Serum or Plasma COMP METABOLIC PANEL Lab Routine Brain mass Alexia Lesion of brain Speech disturbance, unspecified type Visual field defect Confusion Expected: 11/17/2022, Expires: 01/17/2023 [facility] Work Phone: Comment on above: Expected: 11/17/2022, Expires: 3 Start: 11-17-2022 End: 01-17-2023 Erythrocyte sedimentation rate SED RATE WESTERGREN Lab Routine Brain mass Alexia Lesion of brain Speech disturbance, unspecified type Visual field defect Confusion Expected: 11/17/2022, Expires: 01/17/2023 [facility] Work Phone: Comment on above: Expected: 11/17/2022, Expires: 3 Start: 11-17-2022 End: 01-17-2023 FLOW CYTOMETRY PERIPHERAL BLOOD LEUK/LYMPH (FCLEUK) FLOW CYTOMETRY PERIPHERAL BLOOD LEUK/LYMPH (FCLEUK) Lab Routine Brain mass Alexia Lesion of brain Speech disturbance, unspecified type Visual field defect Confusion Expected: 11/17/2022, Expires: 01/17/2023 [facility] Work Phone: Comment on above: Expected: 11/17/2022, Expires: 3 Start: 11-17-2022 End: 01-17-2023 FUNGAL ABS WITH REFLEX, CSF FUNGAL ABS WITH REFLEX, CSF Lab Routine Brain mass Alexia Lesion of brain Speech disturbance, unspecified type Visual field defect Confusion Expected: 11/17/2022, Expires: 01/17/2023 [facility] Work Phone: Comment on above: Expected: 11/17/2022, Expires: 3 Start: 11-17-2022 End: 01-17-2023 Homocysteine [Moles/volume] in Serum or Plasma HOMOCYSTEINE Lab Routine Brain mass Alexia Lesion of brain Speech disturbance, unspecified type Visual field defect Confusion Expected: 11/17/2022, Expires: 01/17/2023 [facility] Work Phone: Comment on above: Expected: 11/17/2022, Expires: 3 Start: 11-17-2022 End: 01-17-2023 HEIDI virus DNA [Presence] in Serum or Plasma by JOHN with probe detection HEDII VIRUS BY PCR Lab Routine Brain mass Alexia Lesion of brain Speech disturbance, unspecified type Visual field defect Confusion Expected: 11/17/2022, Expires: 01/17/2023 [facility] Work Phone: Comment on above: Expected: 11/17/2022, Expires: 3 Start: 11-17-2022 End: 01-17-2023 Methylmalonate [Moles/volume] in Serum or Plasma METHYLMALONIC ACID Lab Routine Brain mass Alexia Lesion of brain Speech disturbance, unspecified type Visual field defect Confusion Expected: 11/17/2022, Expires: 01/17/2023 [facility] Work Phone: Comment on above: Expected: 11/17/2022, Expires: 3 Start: 11-17-2022 End: 01-17-2023 MISC SEND OUT TST 1 MISC SEND OUT TST 1 Lab Routine Brain mass Alexia Lesion of brain Speech disturbance, unspecified type Visual field defect Confusion Expected: 11/17/2022, Expires: 01/17/2023 [facility] Work Phone: Comment on above: Expected: 11/17/2022, Expires: 3 Start: 11-17-2022 End: 01-17-2023 PT panel - Platelet poor plasma by Coagulation assay PROTHROMBIN TIME/PT Lab Routine Brain mass Alexia Lesion of brain Speech disturbance, unspecified type Visual field defect Confusion Expected: 11/17/2022, Expires: 01/17/2023 [facility] Work Phone: Comment on above: Expected: 11/17/2022, Expires: 3 Start: 11-17-2022 End: 01-17-2023 Reagin Ab [Titer] in Cerebral spinal fluid by VDRL VDRL CSF Lab Routine Brain mass Alexia Lesion of brain Speech disturbance, unspecified type Visual field defect Confusion Expected: 11/17/2022, Expires: 01/17/2023 [facility] Work Phone: Comment on above: Expected: 11/17/2022, Expires: 3 Start: 11-17-2022 End: 01-17-2023 SYPHILIS TOTAL W/REFLEX SYPHILIS TOTAL W/REFLEX Lab Routine Brain mass Alexia Lesion of brain Speech disturbance, unspecified type Visual field defect Confusion Expected: 11/17/2022, Expires: 01/17/2023 [facility] Work Phone: Comment on above: Expected: 11/17/2022, Expires: 3 Start: 11-17-2022 End: 01-17-2023 Thyrotropin [Units/volume] in Serum or Plasma TSH BLD Lab Routine Brain mass Alexia Lesion of brain Speech disturbance, unspecified type Visual field defect Confusion Expected: 11/17/2022, Expires: 01/17/2023 [facility] Work Phone: Comment on above: Expected: 11/17/2022, Expires: 3 Start: 11-17-2022 End: 01-17-2023 TOURTELLOTTE BLOOD TOURTELLOTTE BLOOD Lab Routine Brain mass Alexia Lesion of brain Speech disturbance, unspecified type Visual field defect Confusion Expected: 11/17/2022, Expires: 01/17/2023 [facility] Work Phone: Comment on above: Expected: 11/17/2022, Expires: 3 Start: 11-17-2022 End: 01-17-2023 [employer] PCR [employer] PCR Lab Routine Brain mass Alexia Lesion of brain Speech disturbance, unspecified type Visual field defect Confusion Expected: 11/17/2022, Expires: 01/17/2023 [facility] Work Phone: Comment on above: Expected: 11/17/2022, Expires: 3 Start: 10-16-2022 Procedure Education Eprescribed prescriptions (G8553) [facility]; [facility] Work Phone: Start: 09-02-2022 Procedure Education Eprescribed prescriptions (G8553) [facility]; [facility] Work Phone: Start: 09-02-2022 Provider Instructions for Treatment [facility]; [facility] Work Phone: Start: 09-02-2022 Assay of thyroid stimulating hormone tsh TSH (25662) [facility]; [facility] Work Phone: Start: 09-02-2022 Urnls dip stick/tablet reagent auto microscopy URINALYSIS, W/ MICRO (53290) [facility]; [facility] Work Phone: Start: 09-02-2022 Urine albumin quantitative MICROALBUMIN: CREATININE RATIO (40509) AND (18624) [facility]; [facility] Work Phone: Start: 09-02-2022 Comprehensive metabolic panel METABOLIC PANEL, COMPREHENSIVE (19179) [facility]; [facility] Work Phone: Start: 09-02-2022 Blood count complete auto&auto difrntl wbc CBC W/AUTO DIFF WBC (85015) [facility]; [facility] Work Phone: Start: 09-02-2022 Lipid panel LIPID PANEL (80325) [facility]; [facility] Work Phone: Start: 06-19-2022 Procedure Education Eprescribed prescriptions (G8553) [facility]; [facility] Work Phone: Start: 06-19-2022 Provider Instructions for Treatment [facility]; [facility] Work Phone: Start: 06-09-2022 Patient discharge [facility] Start: 06-08-2022 Following clinical pathway protocol [facility] Start: 06-08-2022 Aspiration precautions [facility] Start: 06-08-2022 Assessment of risk of venous thromboembolism [facility] Start: 06-08-2022 Cardiac monitoring [facility] Start: 06-08-2022 Catheterization of vein [facility] Start: 06-08-[address] [facility] Start: 06-08-2022 Elevation of head of bed [facility] Start: 06-08-2022 Exercises [facility] Start: 06-08-2022 Fall prevention [facility] Start: 06-08-2022 Implementation of planned interventions [facility] Start: 06-08-2022 Incentive spirometry [facility] Start: 06-08-2022 Insertion of catheter into peripheral vein [facility] Start: 06-08-2022 Introduction of urinary catheter [facility] Start: 06-08-2022 Measuring intake and output [facility] Start: 06-08-[address] [facility] Start: 06-08-2022 Patient referral to dietitian [facility] Start: 06-08-2022 Providing care according to standard [facility] Start: 06-08-2022 Referral to occupational therapist [facility] Start: 06-08-2022 Referral to service [facility] Start: 06-08-[address] [facility] Start: 06-08-2022 Tobacco use cessation education [facility] Start: 06-08-2022 [facility] Start: 06-08-2022 Verification routine [facility] Start: 06-08-2022 Admission procedure [facility] Start: 06-08-2022 [facility] Start: 06-08-2022 Oxygen therapy [facility] Start: 06-08-2022 End: 06-09-2022 [facility] Start: 06-02-2022 Patient discharge [facility] Start: 06-02-2022 Following clinical pathway protocol [facility] Start: 06-02-2022 Assessment of risk of venous thromboembolism [facility] Start: 06-02-2022 Incentive spirometry [facility] Start: 06-02-2022 Inhalation therapy procedure [facility] Start: 06-02-2022 Insertion of catheter into peripheral vein [facility] Start: 06-02-2022 Introduction of urinary catheter [facility] Start: 06-02-2022 Measuring intake and output [facility] Start: 06-02-2022 Oxygen therapy [facility] Start: 06-02-2022 Providing care according to standard [facility] Start: 06-02-2022 Provision of activity privileges [facility] Start: 06-02-2022 Referral to project control manager [facility] Start: 06-02-2022 Referral to service [facility] Start: 06-02-2022 Tobacco use cessation education [facility] Start: 06-02-2022 [facility] Start: 06-02-2022 Electrocardiographic procedure [facility] Start: 06-02-2022 Admission procedure [facility] Start: 06-02-2022 Verification routine [facility] Start: 06-02-2022 Blood chemistry [facility] Start: 06-02-2022 End: 06-02-2022 [facility] Start: 05-27-2022 Procedure Education Eprescribed prescriptions (G8553) [facility]; [facility] Work Phone: Start: 05-27-2022 Provider Instructions for Treatment [facility]; [facility] Work Phone: Start: 05-03-2022 DEPRESSION ASSESSMENT DEPRESSION ASSESSMENT [facility] Start: 04-02-2022 Procedure Education Eprescribed prescriptions (G8553) [facility]; [facility] Work Phone: Start: 04-02-2022 Provider Instructions for Treatment [facility]; [facility] Work Phone: Start: 03-13-2022 Procedure Education Eprescribed prescriptions (G8553) [facility]; [facility] Work Phone: Start: 03-13-2022 Provider Instructions for Treatment [facility]; [facility] Work Phone: Start: 03-13-2022 Assay of thyroid stimulating hormone tsh TSH (32504) [facility]; [facility] Work Phone: Start: 03-13-2022 Urnls dip stick/tablet reagent auto microscopy URINALYSIS, W/ MICRO (82390) [facility]; [facility] Work Phone: Start: 03-13-2022 Urine albumin quantitative MICROALBUMIN: CREATININE RATIO (56282) AND (84682) [facility]; [facility] Work Phone: Start: 03-13-2022 Comprehensive metabolic panel METABOLIC PANEL, COMPREHENSIVE (21447) [facility]; [facility] Work Phone: Start: 03-13-2022 Blood count complete auto&auto difrntl wbc CBC W/AUTO DIFF WBC (72521) [facility]; [facility] Work Phone: Start: 03-13-2022 Lipid panel LIPID PANEL (72149) [facility]; [facility] Work Phone: Start: 01-01-2022 Influenza vaccination INFLUENZA (#1) [facility] Start: 10-10-2021 Procedure Education Eprescribed prescriptions (G8553) [facility]; [facility] Work Phone: Start: 10-10-2021 Provider Instructions for Treatment [facility]; [facility] Work Phone: Start: 09-19-2021 Procedure Education Eprescribed prescriptions (G8553) [facility]; [facility] Work Phone: Start: 09-19-2021 Assay of iron IRON (63343) [facility]; [facility] Work Phone: Start: 09-19-2021 Assay of ferritin FERRITIN (76524) [facility]; [facility] Work Phone: Start: 09-19-2021 Assay of thyroid stimulating hormone tsh TSH (THYROID STIMULATING HORMONE) (34364) [facility]; [facility] Work Phone: Start: 09-19-2021 Comprehensive metabolic panel METABOLIC PANEL, COMPREHENSIVE (49383) [facility]; [facility] Work Phone: Start: 09-19-2021 Blood count complete auto&auto difrntl wbc CBC with auto diff (26705) [facility]; [facility] Work Phone: Start: 09-19-2021 Hemoglobin glycosylated a1c HGB A1C (04684) [facility] Work Phone: Start: 03-14-2021 Procedure Education Eprescribed prescriptions (G8553) [facility]; [facility] Work Phone: Start: 03-14-2021 Provider Instructions for Treatment [facility]; [facility] Work Phone: Start: 03-14-2021 Assay of thyroid stimulating hormone tsh TSH (72417) [facility]; [facility] Work Phone: Start: 03-14-2021 Lipid panel LIPID PANEL (04946) [facility]; [facility] Work Phone: Start: 09-18-2020 Procedure Education Eprescribed prescriptions (G8553) [facility]; [facility] Work Phone: Start: 07-15-2020 Procedure Education Eprescribed prescriptions (G8553) [facility]; [facility] Work Phone: Start: 07-15-2020 Provider Instructions for Treatment [facility]; [facility] Work Phone: Start: 07-08-2020 Procedure Education Eprescribed prescriptions (G8553) [facility]; [facility] Work Phone: Start: 07-08-2020 Provider Instructions for Treatment [facility]; [facility] Work Phone: Start: 07-08-2020 Fibrin dgradj products d-dimer quantitative D-Dimer (04428) [facility]; [facility] Work Phone: Start: 07-08-2020 Natriuretic peptide BNTP (36141) [facility]; [facility] Work Phone: Start: 07-08-2020 C-reactive protein high sensitivity C-REACT PROT HIGH SENS(hsCRP) (99344) [facility]; [facility] Work Phone: Start: 07-08-2020 TSH Qn TSH (21661) [facility]; [facility] Work Phone: Start: 07-08-2020 Blood count complete auto&auto difrntl wbc CBC, Platelets & Auto Diff (63410) [facility]; [facility] Work Phone: Start: 07-08-2020 Comprehensive metabolic panel Metabolic Panel, Comprehensive (54933) [facility]; [facility] Work Phone: Start: 07-04-2020 Procedure Education Eprescribed prescriptions (G8553) [facility]; [facility] Work Phone: Start: 07-04-2020 Provider Instructions for Treatment Solu Medrol Injection/ Education [facility]; [facility] Work Phone: Start: 07-03-2020 Procedure Education Eprescribed prescriptions (G8553) [facility]; [facility] Work Phone: Start: 07-01-2020 Procedure Education Eprescribed prescriptions (G8553) [facility]; [facility] Work Phone: Start: 06-28-2020 Procedure Education Eprescribed prescriptions (G8553) [facility]; [facility] Work Phone: Start: 06-28-2020 Provider Instructions for Treatment [facility]; [facility] Work Phone: Start: 04-12-2020 Procedure Education Eprescribed prescriptions (G8553) [facility]; [facility] Work Phone: Start: 03-22-2020 Provider Instructions for Treatment Continue Current Prescription(s) [facility] Work Phone: Start: 03-18-2020 Procedure Education Eprescribed prescriptions (G8553) [facility] Work Phone: Start: 03-18-2020 Provider Instructions for Treatment [facility] Work Phone: Start: 03-04-2020 Procedure Education Eprescribed prescriptions (G8553) [facility] Work Phone: Start: 03-04-2020 Provider Instructions for Treatment Follow up if no improvement or if symptoms worsen [facility] Work Phone: Start: 02-29-2020 Procedure Education Eprescribed prescriptions (G8553) [facility] Work Phone: Start: 02-29-2020 [place] influenza 2019 Novel Coronavirus (COVID-19), JOHN ([id number]) [facility] Work Phone: Start: 02-22-2020 Procedure Education Eprescribed prescriptions (G8553) [facility] Work Phone: Start: 02-05-2020 Procedure Education Eprescribed prescriptions (G8553) [facility] Work Phone: Start: 02-05-2020 Provider Instructions for Treatment [facility] Work Phone: Start: 12-14-2019 Procedure Education Eprescribed prescriptions (G8553) [facility] Work Phone: Start: 12-14-2019 Provider Instructions for Treatment Reviewed Diagnostic Tests [facility] Work Phone: Start: 11-08-2019 Procedure Education Eprescribed prescriptions (G8553) [facility] Work Phone: Start: 11-08-2019 Provider Instructions for Treatment [facility] Work Phone: Start: 10-30-2019 [place] influenza 2019 Novel Coronavirus (COVID-19), JOHN ([id number]) [facility] Work Phone: Start: 10-30-2019 Procedure Education Eprescribed prescriptions (G8553) [facility] Work Phone: Start: 10-18-2019 Procedure Education Eprescribed prescriptions (G8553) [facility] Work Phone: Start: 10-18-2019 Provider Instructions for Treatment Cholesterol mgmt [facility] Work Phone: Start: 08-31-2017 SHINGRIX VACCINE (1 of 2) SHINGRIX VACCINE (1 of 2) [facility] Start: 08-31-2012 COLOGUARD (FIT-DNA) COLOGUARD (FIT-DNA) [facility] Start: 08-31-2012 Colonoscopy COLONOSCOPY [facility] Start: 08-31-2012 COLORECTAL CANCER SCREENING COLORECTAL CANCER SCREENING [facility] Start: 08-31-[address] COLONOGRAPHY [facility] Start: 08-31-2012 DIABETES SCREEN DIABETES SCREEN [facility] Start: 08-31-2012 FECAL OCCULT BLOOD FECAL OCCULT BLOOD [facility] Start: 08-31-2012 Lipid 1996 panel - Serum or Plasma Lipid Screening [facility] Start: 08-31-2012 Lipid panel Lipid Screening [facility] Start: 08-31-2012 LIPID SCREEN LIPID SCREEN [facility] Start: 08-31-2012 Screening for malignant neoplasm of colon [facility] Start: 08-31-2012 SIGMOIDOSCOPY SIGMOIDOSCOPY [facility] Start: 2007 Mammography [facility] Start: 2007 Screening for malignant neoplasm of breast Mammogram Screening [facility] Start: 08-31-1997 HPV TESTING HPV TESTING [facility] Start: 08-31-1997 Screening for malignant neoplasm of cervix HPV Testing [facility] Start: 08-31-1988 PAP TESTING PAP TESTING [facility] Start: 08-31-1988 Screening for malignant neoplasm of cervix [facility] Start: 08-31-1986 Hepatitis B Vaccine (1 of 3 - 19+ 3-dose series) Hepatitis B Vaccine (1 of 3 - 19+ 3-dose series) [facility] Start: 08-31-1986 Pneumococcal Vaccine: 50+ (1 of 2 - PCV) Pneumococcal Vaccine: 50+ (1 of 2 - PCV) [facility] Start: 08-31-1986 Urine microalbumin profile [facility] Start: 08-31-1985 ANNUAL PCP TEAM CHRONIC DISEASE VISIT ANNUAL PCP TEAM CHRONIC DISEASE VISIT [facility] Start: 08-31-1985 Anxiety Screening Anxiety Screening [facility] Start: 08-31-1985 BP CONTROLLED (<130/80) BP CONTROLLED (<130/80) [facility] Start: 08-31-1985 Depression Screening Depression Screening [facility] Start: 08-31-1985 Hepatitis B surface antibody level LDL CHOLESTEROL [facility] Start: 08-31-1985 HEPATITIS C SCREENING HEPATITIS C SCREENING [facility] Start: 08-31-1985 HIV SCREENING HIV SCREENING [facility] Start: 08-31-1985 SPIROMETRY SPIROMETRY [facility] Start: 08-31-1973 PNEUMOCOCCAL (1 - PCV) PNEUMOCOCCAL (1 - PCV) [facility] Start: 08-31-1973 [facility] Start: 03-03-1968 COVID-19 VACCINE (#1) COVID-19 VACCINE (#1) [facility] Start: 1967 HEPATITIS B (1 of 3 - 3-dose series) HEPATITIS B (1 of 3 - 3-dose series) [facility] Start: 1967 Hepatitis B Vaccine (1 of 3 - 3-dose series) Hepatitis B Vaccine (1 of 3 - 3-dose series) [facility] Amphetamine [Mass/vo lume] in Urine [facility] Bacteria identified in Cerebral spinal fluid by Culture CSF CULT + STAIN Microbiology Routine Neoplasm of uncertain behavior of brain, supratentorial (HCC) Brain lesion Confusion Alexia Visual field defect Ordered: 02/22/2023 [facility] Work Phone: Comment on above: Ordered: 02/22/2023 BANDS OLIGOCLONAL CSF BANDS OLIG OCLONAL CSF Lab Routine Neoplasm of uncertain behavior of brain, supratentorial (HCC) Brain lesion Confusion Alexia Visual field defect Ordered: 02/22/2023 [facility] Work Phone: Comment on above: Ordered: 02/22/2023 Benzodiazepine measu rement, urine [facility] Borrelia burgdorferi DNA [Presence] in Unspecified specimen by JOHN with probe detection LYME DISEASE BY PCR Lab Routine Brain lesion 03/22/2023 9:20 AM EST [facility] Work Phone: CBC W Auto Different ial panel - Blood [facility] Cell count panel - C erebral spinal fluid CSF CELL COUNT Lab Routine Neoplasm of uncertain behavior of brain, supratentorial (HCC) Brain lesion Confusion Alexia Visual field defect Ordered: 02/22/2023 [facility] Work Phone: Comment on above: Ordered: 02/22/2023 Cell count panel - C erebral spinal fluid CSF CELL COUNT Lab Routine Brain lesion Ordered: 03/17/2023 [facility] Work Phone: Comment on above: Ordered: 03/17/2023 Cocaine measurement, urine [facility] 2000 panel - Serum or Plasma [facility] CSF COLLECTION TUBE PERFORMABLE TUBE 1 [facility] Work Phone: Comment on above: Ordered: 02/22/2023 End: 03-22-2023 CSF COLLECTION TUBE PERFORMABLE TUBE 1 [facility] Work Phone: Comment on above: Once for 1 Occurrences starting 03/22/20 until 03/22/2023 CSF ROUT ANALYSIS CSF ROUT JOHANN SIS Lab Routine Neoplasm of uncertain behavior of brain, supratentorial (HCC) Brain lesion Confusion Alexia Visual field defect Ordered: 02/22/2023 [facility] Work Phone: Comment on above: Ordered: 02/22/2023 CYTOLOGY NON-DIRECTOR MARKET INTELLIGENCE CYTOLOGY NON-GY N Lab Routine Brain mass Alexia Lesion of brain Speech disturbance, unspecified type Visual field defect Confusion Ordered: 11/17/2022 [facility] Work Phone: Comment on above: Ordered: 11/17/2022 CYTOLOGY NON-DIRECTOR MARKET INTELLIGENCE CYTOLOGY NON-GY N Lab Routine Neoplasm of uncertain behavior of brain, supratentorial (HCC) Brain lesion Confusion Alexia Visual field defect Ordered: 02/22/2023 [facility] Work Phone: Comment on above: Ordered: 02/22/2023 CYTOLOGY NON-DIRECTOR MARKET INTELLIGENCE CYTOLOGY NON-GY N Lab Routine Brain lesion Ordered: 03/17/2023 [facility] Work Phone: Comment on above: Ordered: 03/17/2023 ECG COMPLETE ECG COMPLETE ECG Routine Pre-op evaluation 11/02/2022 11:42 AM EDT [facility] Work Phone: End: 06-24-2023 ECHO TRANSESOPHAGEAL ECHO TRANSESOPHAGEAL Cardiology Routine Arterial ischemic stroke (HCC) 1 Occurrences starting 06/24/2022 until 06/24/2023 [facility] Work Phone: Comment on above: 1 Occurrences starting 06/24/2022 until 06/24/2023 EPIL EEG LONG EPIL EEG LONG NEUROLOGY Routine Seizures (HCC) Ordered: 12/22/2023 [facility] Work Phone: Comment on above: Ordered: 12/22/2023 EXTRA TUBES EXTRA TUBES Lab Routine Neoplasm of uncertain behavior of brain, supratentorial (HCC) Brain lesion Confusion Alexia Visual field defect Ordered: 02/22/2023 [facility] Work Phone: Comment on above: Ordered: 02/22/2023 FUNGAL CSF CULT/CAD FUNGAL CSF C ULT/CAD Microbiology Routine Brain mass Alexia Lesion of brain Speech disturbance, unspecified type Visual field defect Confusion Ordered: 11/17/2022 [facility] Work Phone: Comment on above: Ordered: 11/17/2022 FUNGAL CSF CULT/CAD FUNGAL CSF C ULT/CAD Microbiology Routine Neoplasm of uncertain behavior of brain, supratentorial (HCC) Brain lesion Confusion Alexia Visual field defect Ordered: 02/22/2023 [facility] Work Phone: Comment on above: Ordered: 02/22/2023 Glucose [Mass/volume ] in Cerebral spinal fluid GLUCOSE CSF Lab Routine Neoplasm of uncertain behavior of brain, supratentorial (HCC) Brain lesion Confusion Alexia Visual field defect Ordered: 02/22/2023 [facility] Work Phone: Comment on above: Ordered: 02/22/2023 Hemoglobin A1c/Hemoglobin.total in Blood [facility] IR LUMBAR PUNCTURE DIAGNOSTIC (MC) IR LUMBAR PUNCTURE DIAGNOSTIC (MC) Radiology Routine Neoplasm of uncertain behavior of brain, supratentorial (HCC) Brain lesion Confusion Alexia Visual field defect Ordered: 02/22/2023 [facility] Work Phone: Comment on above: Ordered: 02/22/2023 Lipid 1996 panel - S abdoulaye or Plasma [facility] Magnesium measurement [facility] Measurement of 3,4-methylenedioxymethamphe tamine in urine [facility] Methadone measuremen t, urine [facility] Microorganism identi fied in Unspecified specimen by Culture AFB CULT + STAIN Microbiology Routine Neoplasm of uncertain behavior of brain, supratentorial (HCC) Brain lesion Confusion Alexia Visual field defect 03/22/2023 9:20 AM EST [facility] Work Phone: MISC SEND OUT TST 1 MISC SEND OU T TST 1 Lab Routine Brain lesion 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 Visual field defect 03/22/2023 9:20 AM [facility] Work Phone: End: 08-20-2024 MR Brain WO and W contrast IV MRI BRAIN WO/W IVCON Radiology Routine Brain lesion 1 Occurrences starting 07/22/2023 until 08/20/2024 [facility] Work Phone: Comment on above: 1 Occurrences starting 07/22/2023 until 08/20/2024 End: 11-23-2024 MR Brain WO and W contrast IV MRI BRAIN WO/W IVCON Radiology Routine Brain lesion 1 Occurrences starting 10/25/2023 until 11/23/2024 [facility] Work Phone: Comment on above: 1 Occurrences starting 10/25/2023 until 11/23/2024 End: 02-24-2025 MR Brain WO and W contrast IV MRI BRAIN WO/W IVCON Radiology Routine Brain lesion 1 Occurrences starting 01/26/2024 until 02/24/2025 [facility] Work Phone: Comment on above: 1 Occurrences starting 01/26/2024 until 02/24/2025 End: 05-24-2025 MR Brain WO and W contrast IV MRI BRAIN WO/W IVCON Radiology Routine Brain lesion 1 Occurrences starting 04/24/2024 until 05/24/2025 [facility] Work Phone: Comment on above: 1 Occurrences starting 04/24/2024 until 05/24/2025 End: 11-15-2025 MR Brain WO and W contrast IV MRI BRAIN WO/W IVCON Radiology Routine Brain lesion 1 Occurrences starting 10/16/2024 until 11/15/2025 [facility] Work Phone: Comment on above: 1 Occurrences starting 10/16/2024 until 11/15/2025 End: 07-25-2023 Mri brain brain stem w/o w/contrast material MRI BRAIN WO/W IVCON Radiology Routine Cerebral infarction, unspecified mechanism (HCC) 1 Occurrences starting 06/25/2022 until 07/25/2023 [facility] Work Phone: Comment on above: 1 Occurrences starting 06/25/2022 until 07/25/2023 End: 12-12-2023 Mri brain brain stem w/o w/contrast material MRI BRAIN WO/W IVCON Radiology Routine Glioma (HCC) 1 Occurrences starting 11/12/2022 until 12/12/2023 [facility] Work Phone: Comment on above: 1 Occurrences starting 11/12/2022 until 12/12/2023 End: 03-24-2024 Mri brain brain stem w/o w/contrast material MRI BRAIN WO/W IVCON Radiology Routine Brain lesion 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 Occurrences starting 02/23/2023 until 03/24/2024 [facility] Work Phone: Comment on above: 1 Occurrences starting 02/23/2023 until 03/24/2024 End: 03-24-2024 Mri spinal canal cervical w/o & w/contr matrl MRI CERVICAL SPINE WO/W IVCON Radiology Routine Brain lesion 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 Occurrences starting 02/23/2023 until 03/24/2024 [facility] Work Phone: Comment on above: 1 Occurrences starting 02/23/2023 until 03/24/2024 End: 03-24-2024 Mri spinal canal thoracic w/o & w/contr matrl MRI THORACIC SPINE WO/W IVCON Radiology Routine Brain lesion 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 B prohormone N-Terminal [Mass/volume] in Serum or Plasma [facility] NM Heart Views W str ess and W radionuclide IV [facility] OLIGOCLONAL BAND CSF OLIGOCLONAL BAND CSF Lab Routine Neoplasm of uncertain behavior of brain, supratentorial (HCC) Brain lesion Confusion Alexia Visual field defect Ordered: 02/22/2023 [facility] Work Phone: Comment on above: Ordered: 02/22/2023 OLIGOCLONAL CSF IGG OLIGOCLONAL CSF IGG Lab Routine Neoplasm of uncertain behavior of brain, supratentorial (HCC) Brain lesion Confusion Alexia Visual field defect Ordered: 02/22/2023 [facility] Work Phone: Comment on above: Ordered: 02/22/2023 Patient Education [facility] Work Phone: Patient referral [facility] Work Phone: pH of Urine [facility] Phencyclidine [Prese nce] in Urine [facility] Protein [Mass/volume ] in Cerebral spinal fluid PROTEIN CSF Lab Routine Neoplasm of uncertain behavior of brain, supratentorial (HCC) Brain lesion Confusion Alexia Visual field defect Ordered: 02/22/2023 [facility] Work Phone: Comment on above: Ordered: 02/22/2023 Reagin Ab [Titer] in Cerebral spinal fluid by VDRL VDRL CSF Lab Routine Neoplasm of uncertain behavior of brain, supratentorial (HCC) Brain lesion Confusion Alexia Visual field defect Ordered: 02/22/2023 [facility] Work Phone: Comment on above: Ordered: 02/22/2023 Thyroid stimulating hormone measurement [facility] TOURTELLOTTE CSF TOURTELLOTTE CS F Lab Routine Brain mass Alexia Lesion of brain Speech disturbance, unspecified type Visual field defect Confusion Ordered: 11/17/2022 [facility] Work Phone: Comment on above: Ordered: 11/17/2022 TOURTELLOTTE CSF TOURTELLOTTE CS F Lab Routine Neoplasm of uncertain behavior of brain, supratentorial (HCC) Brain lesion Confusion Alexia Visual field defect Ordered: 02/22/2023 [facility] Work Phone: Comment on above: Ordered: 02/22/2023 TOURTELLOTTE CSF TOURTELLOTTE CS F Lab Routine Neoplasm of uncertain behavior of brain, supratentorial (HCC) Brain lesion Confusion Alexia Visual field defect Ordered: 02/22/2023 [facility] Work Phone: Comment on above: Ordered: 02/22/2023 Urine barbiturate measurement [facility] Urine cannabinoid measurement [facility] Urine opiate measurement [facility] Work Phone: [facility] Work Phone[facility] Work Phone: [facility] Work Phone: [facility] Work Phone: [facility] Work Phone: [facility] Work Phone: [facility] Work Phone: [facility] Work Phone: [facility] Work Phone: [facility]; [facility] Work Phone: [facility] Work Phone: [facility]; [facility] Work Phone: [facility] ANGIO HB6 [facility] Immunizations Immunization Date Immunization Notes Care Provider Fa [facility] 03-09-2018 influenza, injectabl e, quadrivalent, preservative free Jim Pinedo MD Work Phone: [facility] 03-09-2018 influenza virus vacc ine, unspecified formulation Americo Haney DO Work Phone: [facility] Payers Date Payer Category Payer Self-pay [id number] 2024 Unknown [id number] 2023 Private Health Insurance [id number] 2022 Blue [employer] Blue Shield [id number] 2022 Private Health Insurance [id number] 2022 Unknown 2022 Unknown [id number] 2021 Unknown [id number] 2019 Private Health Insurance [id number] 1967 Unknown [id number] 2.16.8 [id number] 1967 Unknown [id number] 2.16.8 [id number] 1967 Unknown [id number] 2.16.8 [id number] 1967 Unknown [id number] 2.16.8 [id number] 1967 Unknown [id number] 2.16.8 [id number] 1967 Unknown [id number] 2.16.84 [id number] 1959 Private Health Insurance [id number] 1959 Unknown [id number] Medicare [id number] Unknown [id number] Unknown [id number] 2.16.8 [id number] Unknown [id number] 2.16.8 [id number] Unknown [id number] 2.16.8 [id number] Social History Date Type Detail Facility Start: 08-25-2022 End: 10-27-2022 No Drug Use No Drug Use [facility] Work Phone: Start: 10-08-2021 End: 10-05-2022 Tobacco smoking status NHIS Unknown if ever smoked [facility] Start: 06-25-2020 None [facility] Start: 06-25-2020 Spouse/ Significant Other [facility] Start: 1965 Sex Assigned At Female [facility] Start: 1965 Sex Assigned At Not on file [facility] Start: 08-25-2022 End: 01-28-2024 Tobacco smoking status NHIS Occasional tobacco smoker [facility] History of tobacco use Cigarette Smoker [facility] Start: 08-25-2022 End: 01-28-2024 Tobacco use and exposure Smokeless tobacco non-user [facility] Start: 10-27-2022 End: 11-12-2022 Alcohol intake Lifetime non-drinker (finding) [facility] Start: 11-02-2022 Tobacco Comment Trying to quit currently Used to smoke a pack per day on average [facility] Start: 11-05-2022 History SDOH Financial 5 [facility] Start: 11-05-2022 History SDOH Food Worry 1 [facility] Start: 11-05-2022 History SDOH Transport Med 2 [facility] Start: 10-27-2022 End: 11-12-2022 Tobacco use panel [facility] Work Phone: Start: 06-17-2022 How hard is it for you to pay for the very basics like food, housing, medical care, and heating Not hard at all [facility] Work Phone: (I/We) worried whether (my/our) food would run out before (I/we) got money to buy more. Never true [facility] Work Phone: In the past 12 months, was there a time when you were not able to pay the mortgage or rent on time? No [facility] Work Phone: Start: 12-15-2022 End: 01-28-2024 Alcohol intake Ex-drinker (finding) [facility] History of tobacco use Passive smoker [facility] Start: 11-24-2024 Tobacco smoking status NHIS Smokes tobacco daily (finding) [facility] Medical Equipment Procedure Code Equipment Code Equipment Origin al Text Equipment Identifier Dates BIOTRONIK AG CORONARY DRUG-ELUTING CORONARY STENT FDA Start: 05-21-2022 BIOTRONIK AG CORONARY DRUG-ELUTING CORONARY STENT FDA Start: 05-21-2022 BIOTRONIK AG CORONARY DRUG-ELUTING CORONARY STENT FDA Start: 05-21-2022 BIOTRONIK AG CORONARY DRUG-ELUTING CORONARY STENT FDA Start: 05-21-2022 BIOTRONIK AG CORONARY DRUG-ELUTING CORONARY STENT FDA Start: 05-21-2022 Goals Date Patient Goal Desired Activity /State Functional Status Date Assessment Result Facility 06-09-2022 Functional status Ambulates [facility] Work Phone: 06-02-2022 Functional status Up ad harry [facility] Work Phone: Mental Status Date Assessment Result Facility 06-09-2022 Cognitive function Voice/Name [facility] Work Phone: 06-08-2022 Cognitive function Voice/Name [facility] Work Phone: 06-02-2022 Cognitive function Awake;Alert;A ppropriate;Fol lows Commands [facility] Work Phone: 10-08-2021 Cognitive function Voice/Name [facility] Work Phone: Clinical Notes 05-21-2022 to 12-18-2024 Telephone Encounter - Echo Madrigal PA-C - 12/18/2024 12:26 PM EDTTelephone Encounter - Echo Madrigal PA-C - 12/18/2024 12:26 PM EDTTelephone Encounter - Edwige Watkins - 12/18/2024 11:26 AM EDT Note Date & Type Note Facility 12-18-2024 Telephone encount er Note The following approved medication requests have been transmitted electronically. Requested Prescriptions Signed Prescriptions Disp Refills OXcarbazepine (TRILEPTAL) 300 mg tablet 270 tablet 2 Si and a half tablet bid Authorizing Provider: ECHO MADRIGAL PA-C [facility] 12-18-2024 Miscellaneous Notes Formattin g of this note is different from the original. The following approved medication requests have been transmitted electronically. Requested Prescriptions Signed Prescriptions Disp Refills OXcarbazepine (TRILEPTAL) 300 mg tablet 270 tablet 2 Si and a half tablet bid Authorizing Provider: ECHO MADRIGAL PA-C Prescription Refill: Requested by: patient Please E-Scribe Caller Contact Number: Pharmacy Name: [facility] Pharmacy Number: [id number] Generic/ brand: 30 or 90 day supply requested: 90 Last appointment: 06/21/24 Next Appointment: 01/25/[address] Mark Landis [id number] [address] [facility] [id number] documented in this encounter [facility] 12-18-2024 Telephone encount er Note Prescription Refill: Requested by: patient Please E-Scribe Caller Contact Number: Pharmacy Name: [facility] Pharmacy Number: [phone] Generic/ brand: 30 or 90 day supply requested: 90 Last appointment: 06/21/24 Next Appointment: 01/25/[address] Mark Landis [id number] [address] [facility] [address] [facility] 11-24-2024 Evaluation note Diagnosis Onset Date Resolution Dyspnea on exertion acute November 24, 2024 9:00am Atherosclerosis of wiyot coronary artery of wiyot heart without angina chronic November 24, 2024 9:00am History of heart artery stent chronic November 24, 2024 9:00am HLD (hyperlipidemia) chronic November 24, 2024 9:00am HTN (hypertension) chronic November 012024 9:00am [facility] Work Phone: [phone]) 981-478106-14-2025 Instructions* Patient Instructions* Codie Soto MD - 10/14/2024 1:47 AM EDT - Schedule your next MRI to monitor the lesion in April; when you call to make the appointment, remind the scheduler conveyor that you ve met your deductible. - See your local eye doctor (spine surgeon) within the next few days for an updated glasses prescription. - Call the [facility] neuro-ophthalmology clinic at the telephone number provided in your chart to make an appointment with an medical registrar--confirm the provider is an MD, not an spine surgeon. - If you don t hear back from the neuro-ophthalmology clinic after your first call, call again to ensure your appointment is scheduled. - Return for oncology follow-up in April after your MRI results are available. [facility] NoteHNO ID: [id number] Author: CODIE SOTO MD Service: ? Author Type: Physician Type: Progress Notes Filed: 10/14/2024 01:36 Note Text: [facility] BRAIN TUMOR CENTER NEURO-ONCOLOGY VIRTUAL VISIT NOTE This is a virtual visit using HIPAA compliant video platform. It required patient-provider interaction for the medical decision making as documented below. I have communicated my name and active licensure. The patient's identity and physical location were verified at the time of this visit. 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 Josie Landis is a 59-year-old right-handed female presenting for follow-up of a lesion and worsening vision. Josie has been under observation for a lesion. A biopsy was performed, which was non-diagnostic and did not show any tumor. Since then, the lesion has been monitored over time. She does not report any regrowth of the material removed during the biopsy. She also reports worsening vision. She obtained new glasses two years ago, but they are no longer sufficient, and she plans to see her eye doctor for a new prescription. She was previously seen by a neuro-raw mill operator at the [facility], who has since left. Past Diagnostic Results: - (10/11/2024) MRI: No change compared to previous MRI from April 2024. - (04/2024) MRI Physical Exam This is a virtual exam based on observational as below: No vital signs. NEURO: on observation, CN II-XII intact, no pronator drift, no tremor noted, self reported and/or on observation moves extremities equally, no self-reported sensory deficits and ambulating without difficulty. Assessment/Plan 1. Brain lesion (G93.9) - Recent MRI on October 11 compared to April 2024 shows no change in the lesion. - Continue monitoring with another MRI brain w and w/o, and perfusion to be scheduled for April 2025. -Follow up in person 1-2 days after MRI. 2. Alexia (R48.0) 3. Paresthesia of both legs (R20.2) 4. Visual field defect (H53.40) 5. Blurry vision (H53.8) 6. Visual disturbance (H53.9) - Vision worsening despite recent glasses. - Referred to neuro-ophthalmology at [facility]; provided contact information for scheduling. - Advised to see local spine surgeon in [place] for immediate evaluation. - Emphasized importance of being seen by an medical registrar if neuro-ophthalmology appointment is delayed. -Referral to neurophthalmology 7. Encounter for observation for suspected malignant neoplasm (Z03.89 ORDERS: Associate Signed Orders Orders Signed This Visit (1) CONSULT TO OPHTHALMOLOGY Routine, Dx: 1. Brain lesion 2. Alexia 3. Paresthesia of both legs 4. Visual field defect 5. Blurry vision In the end the patient and family verbalized understanding of the above, they had questions which I believe I answered to their satisfaction and agreed with these recommendations and had no further questions or concerns for the moment, but I encourage them to call the [facility] with any questions or concerns. I spent a total of 40 minutes on the date of the service which included preparing to see the patient, at least 50% of [id number] patient care, completing clinical documentation, obtaining and/or reviewing separately obtained history, performing a medically appropriate examination, counseling and educating the patient/family/caregiver, ordering medications, tests, or procedures, communicating with other HCPs (not separately reported), independently interpreting results (not separately reported), communicating results to the patient/family/caregiver and care coordination (not separately reported). This is a high MDM. Codie Soto MD Staff Neuro-Oncologist [facility], [place], [place] CC: CC -Carlos Jovel MD, Neurosurgery, [facility] [facility], [facility] [place], [facility] CC: Rda Pro DO, Vascular Neurology, [facility] CC: Dr. Solis Cool DO, PCP, [address], [facility] [address], ; -Triston Lozano MD, Neurology/Neuroimmunology, [facility] -David Rios MD, Neuro-ophthalmology, [facility] -Americo Haney DO, Infectious Disease, [facility] -Rich Gudino MD, Neuro-Immunology, Neurology, [facility] -Berto Albarado MD, Neuro-Immunology, Neurology, [facility] -Jim Pinedo MD, Neuro Infectious Diseases, [facility] History of Present illness Narrative* Codie Soto MD - 10/13/2024 11:04 AM EDT Images from the original note were not included. Neurological [facility] NEURO-ONCOLOGY VIRTUAL VISIT NOTE This is a virtual visit using HIPAA compliant video platform. It required patient-provider interaction for the medical decision making as documented below. I have communicated my name and active licensure. The patient's identity and physical location wereverified at the time of this visit. 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 Josie Landis is a 59-year-old right-handed female presenting for follow-up of a lesion andworsening vision. Josie has been under observation for a lesion. A biopsy was performed, which wasnon-diagnostic and did not show any tumor. Since then, the lesion has been monitored over time. Shedoes not report any regrowth of the material removed during the biopsy. She also reports worsening vision. She obtained new glasses two years ago, but they are no longer sufficient, and she plans to see her eye doctor for a new prescription. She was previously seen by a neuro-raw mill operator at the [facility], who has since left. Past Diagnostic Results: - (10/11/2024) MRI: No change compared to previous MRI from April 2024. - (04/2024) MRI Physical Exam This is a virtual exam based on observational as below: No vital signs. NEURO: on observation, CN II-XII intact, no pronator drift, no tremor noted, self reported and/or on observation moves extremities equally, no self-reported sensory deficits and ambulating without difficulty. Assessment/Plan 1. Brain lesion (G93.9) - Recent MRI on October 11 compared to April 2024 shows no change in the lesion. - Continue monitoring with another MRI brain w and w/o, and perfusion to be scheduled for April 2025. -Follow up in person 1-2 days after MRI. 2. Alexia (R48.0) 3. Paresthesia of both legs (R20.2) 4. Visual field defect (H53.40) 5. Blurry vision (H53.8) 6. Visual disturbance (H53.9) - Vision worsening despite recent glasses. - Referred to neuro-ophthalmology at [facility]; provided contact information for scheduling. - Advised to see local spine surgeon in [place] for immediate evaluation. - Emphasized importance of being seen by an medical registrar if neuro- ophthalmology appointment is delayed. -Referral to neurophthalmology 7. Encounter for observation for suspected malignant neoplasm (Z03.89 ORDERS: Associate Signed Orders Orders Signed This Visit (1) CONSULT TO OPHTHALMOLOGY Routine, Dx: 1. Brain lesion 2. Alexia 3. Paresthesia of both legs 4. Visual field defect 5. Blurryvision In the end the patient and family verbalized understanding of the above, they had questions which Madhavi I answered to their satisfaction and agreed with these recommendations and had no further questions or concerns for the moment, but I encourage them to call the [facility] with any questions or concerns. I spent a total of 40 minutes on the date of the service which included preparing to see the patient, at least 50% of [id number] patient care, completing clinical documentation, obtaining and/or reviewing separately obtained history, performing a medically appropriate examination, counseling and educating the patient/family/caregiver, ordering medications, tests, or procedures, communicating with other HCPs (not separately reported), independently interpreting results (not separately reported), communicating results to the patient/family/caregiver and care coordination (not separately reported). This is a high MDM. Codie Soto MD Staff Neuro-Oncologist [facility] [place], [place] CC: CC -Carlos Jovel MD, Neurosurgery, [facility], [facility], [facility] CC: Rad Pro DO, Vascular Neurology, [facility] CC: Dr. Solis Cool DO, PCP, [address] [place] [address] [address], [place] [id number], ; -Triston Lozano MD, Neurology/Neuroimmunology, [facility] -David Rios MD, Neuro-ophthalmology, [facility] -Americo Haney DO, Infectious Disease, [facility] -Rich Gudino MD, Neuro-Immunology, Neurology, [facility] -Berto Albarado MD, Neuro-Immunology, Neurology, [facility] -Jim Pinedo MD, Neuro Infectious Diseases, [facility] documented in this encounterC[facility]06[facility] Progress note* Result Encounter Note - Codie Soto MD - 10/11/2024 2:05 PM EDT I have reviewed this test results, Oct 11 2024 MRI BRAIN I will go over the results with the patient at the upcoming appointment. Codie Soto MD [facility]06-11-2025 Miscellaneous Notes* Result Encounter Note - Codie Qiu MD - 10/11/2024 2:05 PM EDT I have reviewed this test results, Oct 11 2024 MRI BRAIN I will go over the results with the patient at the upcoming appointment. Codie Soto MD documented in this encounterCinc[facility]06[facility]25 History of Present illness Narrative* David Justice RT(R) - 10/11/2024 10:30 AM EDT Radiology Service Progress Note DATE OF SERVICE: October 11, 2024 TIME: 10:43 AM PATIENT IDENTITY VERIFICATION COMPLETED USING TWO (2) STANDARD IDENTIFIERS: Name and Date of confirmed by patient verbally. FALL SCREENING: Has the patient had 2 falls in the last year or 1 fall with injury or currently using an Ambulatory Assistive Device (Walker, Cane, Wheelchair, Crutches, etc.)? No PATIENT GENDER DATA: Assigned female at . status: : No status:NO. PATIENT RELEVANT IMPLANT DATA REVIEWED: Yes PATIENT PRESENTS WITH AN IMPLANTABLE OR ATTACHED GRILL ASSOCIATE: No ALLERGIES: Reviewed and unchanged CONTRAST ALLERGY: NO. EXAM: MRI - CONTRAST TYPE: GROUP II PERIPHERAL IV DATA: Ambulatory: A peripheral IV was started in the Right antecubital site with a Angio cath: 20 gauge. RADIOLOGY DEPARTMENT: MR; Exam(s) Completed: Head: Routine Brain with Perfusion. Lavender Administered: No SIGNATURE: MARKO Blake) PATIENT NAME: Josie Landis DATE: October 11, 2024 TIME: 10:43 AM documented in this encounterCincinnati [facility]06-11-2025 NoteHNO ID: [id number] Author: DAVID JUSTICE RT(R) Service: ? Author Type: Technologist Type: Progress Notes Filed: 10/11/2024 10:49 Note Text: Radiology Service Progress Note DATE OF SERVICE: October 11, 2024 TIME: 10:43 AM PATIENT IDENTITY VERIFICATION COMPLETED USING TWO (2) STANDARD IDENTIFIERS: Name and Date of confirmed by patient verbally. FALL SCREENING: Has the patient had 2 falls in the last year or 1 fall with injury or currently using an Ambulatory Assistive Device (Walker, Cane, Wheelchair, Crutches, etc.)? No PATIENT GENDER DATA: Assigned female at . status: : No status: NO. PATIENT RELEVANT IMPLANT DATA REVIEWED: Yes PATIENT PRESENTS WITH AN IMPLANTABLE OR ATTACHED GRILL ASSOCIATE: No ALLERGIES: Reviewed and unchanged CONTRAST ALLERGY: NO. EXAM: MRI - CONTRAST TYPE: GROUP II PERIPHERAL IV DATA: Ambulatory: A peripheral IV was started in the Right antecubital site with a Angio cath: 20 gauge. RADIOLOGY DEPARTMENT: MR; Exam(s) Completed: Head: Routine Brain with Perfusion. Lavender Administered: No SIGNATURE: RT Hayden(R) PATIENT NAME: Josie Landis DATE: October 11, 2024 TIME: 10:43 [facility]02-19-2025 NoteHNO ID: [id number] Author: TANIA MONROY MD Service: ? Author Type: Physician Type: Progress Notes Filed: 06/21/2024 10:02 Note Text: [facility] Patient Name: Josie Landis Date of : 1965 ESTABLISHED EPILEPSY CLINIC NOTE 06/21/2024 10:00 AM Reason for Visit: Epilepsy Clinical Summary: Ms. Landis is a 58 year old right-handed female seen in [facility] Ep[facility]psy [facility]. We had a visit using: [employer] I received consent from the patient to perform the visit using this platform. I have communicated my name and active licensure. The patient's identity and physical location were verified at the time of this visit. Either the patient or their legal promotions representative has been informed of the risks and benefit of - and alternatives to - treatment through a remote evaluation and consents to proceed with the evaluation remotely. There is no one accompanying the patient during today's visit. 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 Soto on October 20, 2023. 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 Given progression of the lesion the patient underwent a biopsy with Dr. Jovel on 11/04/22 and pathology non diagnostic. Patient was told that she experienced grand mal seizures at age 24 year old. She was on mthrylphenobarbital seizure. She continued to have seizures and eventually he was seizure are and ASM was d/c at age 13 yo. She experienced seizures again at age [age] year old. She recalls that she was able to say that she was going to have one and she was passing out. This was a single event and she was not on ASM. Next seizure was when she was given , soon in the past period. She was 19 yo. She was not on ASM. The next seizure was before having gallbladder surgery at age 30 yo Then psychiatrist started her on Tegretol and Topamax , unknown dose for bipolar. She is not taking it anymore. Six years ago she was in her car at work waiting to go to work. She reports that she called her mother, she told her that she was about to pass out, 3 minutes later she came out from a seizure. Father went to pick her up. For the last 6 years she did not experience any event until 2 weeks ago. She was in the car as a passenger with her , told the that she had nauseas, wanted to take zofran, did not take it, set back, eyes rolled back, hands were shaking, unresponsive. moaning. Duration 30 -60 seconds. called her name, she confused. Patient amnestic of the event. Patient had urine incontinence. No tongue biting. Later patient called her daughter who told the patient to go to the ED. reports that she was back to baseline. A week later , patient experienced another event. She again had nauseas, set down, called her 's name, passed out for unknown time. Had urine incontinence,, very tired after the event. The next day she slept almost 20 hours[address] She spoke with Dr Huizar, Brain Tumor. MRI purvi was ordered and showed stable findings. She was referred to Epilepsy On no ASM History of bipolar disorder Interval Seizure History Patient reports 2 episodes of dizziness, she needs to sit down with help. Duration was months. No diplopia, nauseas or vomiting. Currently on Trileptal bid. No side effects. No seizures No ASM level. Total # of Current Anti-seizure Medications: 1 Side Effects to Current Anti-seizure Medications: none Number of seizure types: 2 Seizure-related driving accidents: No Driving: No Lives Alone: No CURRENT OUTPATIENT ANTISEIZURE MEDICATIONS (as of the start of the encounter) OXcarbazepine (TRILEPTAL) 300 mg tablet 1 and a half tablet bid OXcarbazepine (TRILEPTAL) 300 mg tablet 1 and a half tablet bid Patient should start on February 27, 2024. clonazePAM (KLONOPIN) 0.5 mg tablet Take 0.5 mg by mouth twice daily as needed for anxiety. Prior Anti-seizure Therapies: Trial Adequacy: Max Daily Dose Achieved: Side Effects: Effectiveness: Comments: Carbamazepine Levetiracetam Topiramate Comorbidities: Episode Description: Patient Entered Data: EPILEPSY SCORE 06/21/2024 8:05 AM 06/21/2024 8:05 AM 06/21/2024 8:02 AM First answer obtained - 06/24/2022 3:58 PM PHQ-9 SCORE - - 11 [Moderate Depression] - TASNEEM 2 SCORE 2 [Negative Anxiety Screen] - - - TASNEEM 7 SCORE - - - - QOLIE-10 SCORE (0=worst; 100=best QoL - higher scores represent better function) - - - - LSSS SCORE (0- no seizures 100- most severe possible seizures) - - - - C-SSRS SCREEN - - - - On average, how many hours of sleep do you get in a 24-hour period? - - - - PROMIS Sleep Disturbance T-SCORE - - - 58 [mild] Have you been diagnosed with Sleep Apnea? - - - - Seizure risk fac (more content not included)...[facility] 06-21-2024 History of Present illness Narrative* Tania Monroy MD - 06/21/2024 9:50 AM EST [facility] Patient Name: Josie Landis Date of : 1965 ESTABLISHED EPILEPSY CLINIC NOTE 06/21/2024 10:00 AM Reason for Visit: Epilepsy Clinical Summary: Ms. Landis is a 58 year old right-handed female seen in [facility] Epilepsy [facility]. We had a visit using: [employer] I received consent from the patient to perform the visit using this platform. I have communicated my name and active licensure. The patient's identity and physical location wereverified at the time of this visit. Either the patient or their legal promotions representative has been informed of the risks and benefit of - and alternatives to - treatment through a remote evaluation and consents to proceed with the evaluation remotely. There is no one accompanying the patient during today's visit. 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 Soto on October 20, 2023. 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 Given progression of the lesion the patient underwent a biopsy with Dr. Jovel on 11/04/22 and pathology non diagnostic. Patient was told that she experienced grand mal seizures at age 24 year old. She was on mthrylphenobarbital seizure. She continued to have seizures and eventually he was seizure are and ASM was d/c atage 13 yo. She experienced seizures again at age [age] year old. She recalls that she was able to say that she was going to have one and she was passing out. This was a single event and she was not on ASM. Next seizure was when she was given , soon in the past period. She was 19 yo. She was not on ASM. The next seizure was before having gallbladder surgery at age 30 yo Then psychiatrist started her on Tegretol and Topamax , unknown dose for bipolar. She is not takingit anymore. Six years ago she was in her car at work waiting to go to work. She reports that she called her mother, she told her that she was about to pass out, 3 minutes later she came out from a seizure. Father went to pick her up. For the last 6 years she did not experience any event until 2 weeks ago. She was in the car as a passenger with her , told the that she had nauseas, wanted to take zofran, did not take it, set back, eyes rolled back, hands were shaking, unresponsive. moaning. Duration 30 -60 seconds. called her name, she confused. Patient amnestic of the event. Patient had urine incontinence. No tongue biting. Later patient called her daughter who told the patient to go to the ED. reports that she was back to baseline. A week later , patient experienced another event. She again had nauseas, set down, called her 's name, passed out for unknown time. Had urine incontinence,, very tired after the event. The next day she slept almost 20 hours. She spoke with Dr Huizar, Brain Tumor. MRI purvi was ordered and showed stable findings. She was referred to Epilepsy On no ASM History of bipolar disorder Interval Seizure History Patient reports 2 episodes of dizziness, she needs to sit down with help. Duration was months. No diplopia, nauseas or vomiting. Currently on Trileptal bid. No side effects. No seizures No ASM level. Total # of Current Anti-seizure Medications: 1 Side Effects to Current Anti-seizure Medications: none Number of seizure types: 2 Seizure-related driving accidents: No Driving: No Lives Alone: No CURRENT OUTPATIENT ANTISEIZURE MEDICATIONS (as of the start of the encounter) OXcarbazepine (TRILEPTAL) 300 mg tablet 1 and a half tablet bid OXcarbazepine (TRILEPTAL) 300 mg tablet 1 and a half tablet bid Patient should start on January. clonazePAM (KLONOPIN) 0.5 mg tablet Take 0.5 mg by mouth twice daily as needed for anxiety. Prior Anti-seizure Therapies: Trial Adequacy: Max Daily Dose Achieved: Side Effects: Effectiveness: Comments: Carbamazepine Levetiracetam Topiramate Comorbidities: Episode Description: Patient Entered Data: EPILEPSY SCORE 06/21/2024 8:05 AM 06/21/2024 8:05 AM 06/21/2024 8:02 AM First answer obtained - 06/24/2022 3:58 PM PHQ-9 SCORE - - 11 [Moderate Depression] - TASNEEM 2 SCORE 2 [Negative Anxiety Screen] - - - TASNEEM 7 SCORE - - - - QOLIE-10 SCORE (0=worst; 100=best QoL - higher scores represent better function) - - - - LSSS SCORE (0- no seizures 100- most severe possible seizures) - - - - C-SSRS SCREEN - - - - On average, how many hours of sleep do you get in a 24-hour period? - - - - PROMIS Sleep Disturbance T-SCORE - - - 58 [mild] Have you been diagnosed with Sleep Apnea? - - - - Seizure risk factors: Brain Tumor Unanswered SPECIAL NEEDS BABYSITTER Infections Unanswered Developmental Delay Unanswered Family history of seizures Unanswered Febrile Seizure Unanswered Complications Unanswered Stroke Yes Traumatic Brain Injury Unanswered Previous Epilepsy Evaluations Other caregivers: Primary Care Provider: Solis Cool, DO, DO Current Outpatient Medications Medication Sig OXcarbazepine (TRILEPTAL) 300 mg tablet 1 and a half tablet bid OXcarbazepine (TRILEPTAL) 300 mg tablet 1 and a half tablet bid Patient should start on January. iv contrast (will be provided with radiology test) MRI Brain Inject, intravenously, once for 1 dose.No IV access, insert saline lock prior to beginning of sedation, infusion, injection of imaging exam.Discontinue saline lock post exam. If Pt. has a central line or IVAD, may access for administration according to line specific nursing protocol.Once exam is complete flush line and de-access according to line specific nursing protocol in the MR contrast administration guidelines link lactobacillus combination no.4 (PROBIOTIC) 3 billion cell cap isosorbide mononitrate ER (IMDUR) 30 mg 24 hr tablet Take 1 tablet by mouth every afternoon. aspirin, enteric coated (ASPIRIN, ENTERIC COATED) 81 mg EC tablet Take 1 tablet by mouth every afternoon. albuterol HFA (PROVENTIL HFA, VENTOLIN HFA) 90 mcg/actuation inhaler Inhale as instructed. evolocumab 140 mg/mL subcutaneous pen injector (REPATHA SURECLICK) Inject 140 mg subcutaneously every 2 weeks. ondansetron (ZOFRAN) 8 mg tablet Take 1 tablet by mouth every 8 hours as needed for nausea/vomiting. pantoprazole DR (PROTONIX) 40 mg tablet Take 1 tablet by mouth once daily. acetaminophen (TYLENOL) 325 mg tablet 2 tablets by ORAL/FEEDING TUBE route every 4 hours as needed for pain. senna-docusate (SENNA-S) 8.6-50 mg per tablet 1 tablet by ORAL/FEEDING TUBE route twice daily. hydroCHLOROthiazide 12.5 mg tablet Take 12.5 mg by mouth once daily. (Patient not taking: Reported on 01/28/2024) buPROPion XL (WELLBUTRIN XL) 300 mg 24 hr tablet Take 300 mg by mouth every morning. (Patient not taking: Reported on 01/28/2024) clonazePAM (KLONOPIN) 0.5 mg tablet Take 0.5 mg by mouth twice daily as needed for anxiety. traZODone (DESYREL) 100 mg tablet Take 300 mg by mouth daily at bedtime. vilazodone (VIIBRYD) 40 mg tablet Take 40 mg by mouth once daily. losartan (COZAAR) 25 mg tablet Take 25 mg by mouth once daily. metoprolol succinate ER (TOPROL XL) 25 mg 24 hr tablet Take 12.5 mg by mouth once daily. ezetimibe (ZETIA) 10 mg tablet Take 10 mg by mouth once daily. cariprazine (VRAYLAR) 3 mg capsule Take 3 mg by mouth once daily. No current facility-administered medications for this visit. ALLERGIES Allergen Reactions Budesonide-Formoter* Other: See Comments Aspirin Other: See Comments Latex Other: See Comments Penicillins Other: See Comments Adhesive Tape-Silic* Other: See Comments Budesonide Other: See Comments Formoterol Other: See Comments PAST MEDICAL HISTORY Diagnosis Date Asthma due to seasonal allergies 11/02/2022 Basal cell carcinoma (BCC) of cheek 2020 left cheek Bipolar affective (HCC) Coronary artery disease Coronary artery disease involving wiyot coronary artery of wiyot heart without angina pectoris 11/02/2022 Gastroesophageal reflux disease without esophagitis 11/02/2022 Hyperlipidemia Primary hypertension 11/02/2022 Seizures (HCC) 11/02/2022 Stroke (HCC) PAST SURGICAL HISTORY Procedure Laterality Date CHOLECYSTECTOMY HX EXCISION & REPAIR EYELID ONE-FOURTH LID MARGIN Left 2020 removal of BCC from left cheek LIGATE FALLOPIAN TUBE PAST SURGICAL HISTORY OF 05/2022 cardiac stent x 1 PAST SURGICAL HISTORY OF hiatal hernia repair PAST SURGICAL HISTORY OF partial hysterectomy SHOULDER ARTHROSCOPY/SURGERY Right torn rotator cuff TONSILLECTOMY HX UNLISTED CARDIAC SURG PROCEDURE 2018 cardiac stents x 2 FAMILY HISTORY Problem Relation Age of Onset Cataract Mother Heart Mother heart attack, stents Hypertension Mother Cancer Mother basal cell carcinoma of ear Cataract Father Heart Father stroke Hypertension Father Cancer Father Basal cell cancer Cancer Maternal Grandmother METS and unknown primary site Heart Maternal Grandfather of heart exploded Macular Degen Paternal Grandmother Cataract Paternal Grandmother Cancer Maternal Aunt METS and not sure of primary site Schizophrenia Maternal Aunt Cancer Granddaughter neuroblastoma Anesthesia Problems No Family History Diabetes No Family History SOCIAL HISTORY: -Lives in [place], [place] -Patient lives alone? No -Patient driving? No Review of Systems negative VITAL SIGNS: There were no vitals taken for this visit. General Examination: Neurological Exam deferred IMPRESSION: Recently diagnosed with Brain tumor with untreated seizures for several years. Seizures changed dinsemiology after tumor was found. EEG today showed no epileptiform discharges She is on no ASM In heh past she used Topamax and Tegretol for bipolar disorder , and she did not experience seizures for years ASM options discussed, given her mood disorder , Keppra will not be used. We will use Trileptal since she responded well to tegretol, side effects discussed. Interval Impression: Splenium of the corpus callosum lesion, etiology unclear: S/P biopsy with non diagnostic pathology. PLAN: Trileptal 450 mg bid OXCBZ level If levels are normal we will consult brain tumor again Follow up in 3-5 months Testing Ordered CBC CMP anticonvulsant level I discussed the risks, benefits and alternatives of the medical plan with the patient. Questions were answered. The patient agreed with the plan as discussed. I spent a total of 20 minutes on the date of the service which included preparing to see the patient, [id number] patient care, and completing clinical documentation. Tania Salmon M.D documented in this encounterCincinnati [facility]12-13-2024 NoteHNO ID: [id number] Author: CODIE SOTO MD Service: ? Author Type: Physician Type: Progress Notes Filed: 04/23/2024 00:03 Note Text: [facility] [place] [facility] NEURO-ONCOLOGY VIRTUAL VISIT NOTE This is a virtual visit using HIPAA compliant video platform. It required patient-provider interaction for the medical decision making as documented below. I have communicated my name and active licensure. The patient's identity and physical location were verified at the time of this visit. 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 The patient is accompanied by her Marciano (2nd ), and her daughter Beena. Subjective History of Present Illness: 57YOF who has CAD, and has had 4 stents, the 1st 2 were done 4 years ago, and the last one was done in May 2022. As a child from [age] yo had seizures and on Mebaral (Methylphenobarbital). Has had no further seizures afterwards. BRAIN LESION HISTORY: May 2022: had chest pain 05/28/2022 had a coronary artery stent On this day 05/28/2022 had the following symptoms: -Something was wrong, as she said she became suddenly dyslexic. -aphasia in the form of word finding difficulty -difficulty reading, she says that whatever she would read she could not understand the witting -she also felt off mentally, meaning somewhat confused. -No define LOC/passing out/nor syncope. -Could not see out of the right side of her peripheral vision 06/08/22, she went to [facility] for the above issues.Admitted for the above. 06/13/2022 saw Technical Operations Specialist Dr. Heide Duff. Had a Rt Homonymous hemianopsia. 06/24/2022She saw cerebrovascular/stroke neurologist Dr. Pro and did extensive work up for possible CVA. 10/21/22, Dr. Pro based on the MRI from that showed a slight progression of the lesion, with the concern that this is a glioma referred the patient to our [facility] [place] for evaluation. 11/04/22. Dr. Feliz performed a biopsy: The pathology is non diagnostic for a brain tumor, a glioma, which is the concern from the radiological perspective as the lesion has progressed in size slightly. The pathology is reported as: FINAL DIAGNOSIS A. Brain, right corpus callosum lesion, stereotactic biopsy - Minute focus of atypical cells in a reactive background; - See comment. B. Brain, right corpus callosum lesion, stereotactic biopsy - Gliosis with scattered macrophages Diagnosis Comment The biopsy shows focal hypercellularity at one corner (less than 5% of tissue submitted) with atypical angulated elongated nuclei and fibrillary background suspicious for glioma. Unfortunately this area is only present on the frozen section slide and is cut through on the resubmitted tissue. It is not present in any of the other slides/block submitted. The remainder of the specimen shows white matter with scattered foamy macrophages and gliosis. Part B shows white matter with scattered macrophages and gliosis but does not have the atypical area noted in frozen section. Immunohistochemical stains performed to help with classification show the following (B1): CD68 highlights scattered macrophages; IDH1 R132H negative (wt); ATRX retained; p53 strong nuclear positivity 10%; Ki-67 proliferative index 1%; BRAF V600E negative (wildtype); H3 K27M negative (wt); H3 K27me3 retained; Luxol fast blue focal mild loss; Neurofilament cocktail with focal decreased axons; GMS negative for fungus; Gram negative for bacteria. FISH for EGFR reported separately. Slides also reviewed by Drs. Maria Luisa Leonardo and Jesu Narvaez who agree. 11/12/2022 Neuro-Oncology consult OUTPT by Dr Soto:initiated work up. 12/09/2022: Admitted he patient for inpatient expedited work up, under Dr. Lozano neuro plant technical specialist. . Discharged : Had extensive work up include (see notes/full records for details), in brief: -PET scan body/brain NEG -CSF analysis NEG for malignant cells or definite autoimmune process. -CSF NEG for paraneoplastic Ab's. -No infectious process found. 10/19/2023 MRI Brain - stable. 01/17/2024 MRI Brain - stable. 04/12/2024 MRI Brain - stable. April 14, 2024 INTERIM EVENTS Virtual visit - The patient is accompanied by daughter. She has no new symptomatology in the neurology clinic systemically. Here to go over the new MRI. Therapy Status Data Form Past Medical History: PAST MEDICAL HISTORY Diagnosis Date Asthma due to seasonal allergies 11/02/2022 Basal cell carcinoma (BCC) of cheek 2020 left cheek Bipolar affective (HCC) Coronary artery disease Abraham (more content not included)...[facility]12-13-2024 History of Present illness Narrative* Codie Soto MD - 04/14/2024 10:35 AM EST Images from the original note were not included. [facility] NEURO-ONCOLOGY VIRTUAL VISIT NOTE This is a virtual visit using HIPAA compliant video platform. It required patient-provider interaction for the medical decision making as documented below. I have communicated my name and active licensure. The patient's identity and physical location wereverified at the time of this visit. 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 The patient is accompanied by her Marciano (2nd ), and her daughter Beena. Subjective History of Present Illness: 57YOF who has CAD, and has had 4 stents, the 1st 2 were done 4 years ago, and the last one was done in May 2022. As a child from [age] yo had seizures and on Mebaral (Methylphenobarbital). Has had no further seizures afterwards. BRAIN LESION HISTORY: May 2022: had chest pain 05/28/2022 had a coronary artery stent On this day 05/28/2022 had the following symptoms: -Something was wrong, as she said she became suddenly dyslexic. -aphasia in the form of word finding difficulty -difficulty reading, she says that whatever she would read she could not understand the witting -she also felt off mentally, meaning somewhat confused. -No define LOC/passing out/nor syncope. -Could not see out of the right side of her peripheral vision 06/08/22, she went to [facility] for the above issues.Admitted for the above. 06/13/2022 saw Technical Operations Specialist Dr. Heide Duff. Had a Rt Homonymous hemianopsia. 06/24/2022She saw cerebrovascular/stroke neurologist Dr. Pro and did extensive work up for possible CVA. 10/21/22, Dr. Pro based on the MRI from that showed a slight progression of thelesion, with the concern that this is a glioma referred the patient to our [facility] [place] for evaluation. 11/04/22. Dr. Feliz performed a biopsy: The pathology is non diagnostic for a brain tumor, a glioma, which is the concern from the radiological perspective as the lesion has progressed in size slightly. The pathology is reported as: FINAL DIAGNOSIS A. Brain, right corpus callosum lesion, stereotactic biopsy - Minute focus of atypical cells in a reactive background; - See comment. B. Brain, right corpus callosum lesion, stereotactic biopsy - Gliosis with scattered macrophages Diagnosis Comment The biopsy shows focal hypercellularity at one corner (less than 5% of tissue submitted) with atypical angulated elongated nuclei and fibrillary background suspicious for glioma. Unfortunately this area is only present on the frozen section slide and is cut through on the resubmitted tissue. It is not present in any of the other slides/block submitted. The remainder of the specimen shows white matter with scattered foamy macrophages and gliosis. Part B shows white matter with scattered macrophages and gliosis but does not have the atypical area noted in frozen section. Immunohistochemical stains performed to help with classification show thefollowing (B1): CD68 highlights scattered macrophages; IDH1 R132H negative (wt); ATRX retained; p53 strong nuclear positivity 10%; Ki-67 proliferative index 1%; BRAF V600E negative (wildtype); H3 K27M negative (wt); H3 K27me3 retained; Luxol fast blue focal mild loss; Neurofilament cocktail with focal decreased axons; GMS negative for fungus; Gram negative for bacteria. FISH for EGFR reported separately. Slides also reviewed by Drs. Maria Luisa Leonardo and Jesu Narvaez who agree. 11/12/2022 Neuro-Oncology consult OUTPT by Dr Soto:initiated work up. 12/09/2022: Admitted he patient for inpatient expedited work up, under Dr. Lozano neuro plant technical specialist. . Discharged : Had extensive work up include (see notes/full records for details), in brief: -PET scan body/brain NEG -CSF analysis NEG for malignant cells or definite autoimmune process. -CSF NEG for paraneoplastic Ab's. -No infectious process found. 10/19/2023 MRI Brain - stable. 01/17/2024 MRI Brain - stable. 04/12/2024 MRI Brain - stable. April 14, 2024 INTERIM EVENTS Virtual visit - The patient is accompanied by daughter. She has no new symptomatology in the neurology clinic systemically. Here to go over the new MRI. Therapy Status Data Form Past Medical History: PAST MEDICAL HISTORY Diagnosis Date Asthma due to seasonal allergies 11/02/2022 Basal cell carcinoma (BCC) of cheek 2020 left cheek Bipolar affective (HCC) Coronary artery disease Coronary artery disease involving wiyot coronary artery of wiyot heart without angina pectoris 11/02/2022 Gastroesophageal reflux disease without esophagitis 11/02/2022 Hyperlipidemia Primary hypertension 11/02/2022 Seizures (HCC) 11/02/2022 Stroke (HCC) As a child from [age] yo had seizures and on Mebaral (Methylphenobarbital). Has had no further seizures afterwards. Past Surgical History: PAST SURGICAL HISTORY Procedure Laterality Date CHOLECYSTECTOMY HX EXCISION & REPAIR EYELID ONE-FOURTH LID MARGIN Left 2020 removal of BCC from left cheek LIGATE FALLOPIAN TUBE PAST SURGICAL HISTORY OF 05/2022 cardiac stent x 1 PAST SURGICAL HISTORY OF hiatal hernia repair PAST SURGICAL HISTORY OF partial hysterectomy SHOULDER ARTHROSCOPY/SURGERY Right torn rotator cuff TONSILLECTOMY HX UNLISTED CARDIAC SURG PROCEDURE 2018 cardiac stents x 2 Family History: FAMILY HISTORY Problem Relation Age of Onset Cataract Mother Heart Mother heart attack, stents Hypertension Mother Cancer Mother basal cell carcinoma of ear Cataract Father Heart Father stroke Hypertension Father Cancer Father Basal cell cancer Cancer Maternal Grandmother METS and unknown primary site Heart Maternal Grandfather of heart exploded Macular Degen Paternal Grandmother Cataract Paternal Grandmother Cancer Maternal Aunt METS and not sure of primary site Schizophrenia Maternal Aunt Cancer Granddaughter neuroblastoma Anesthesia Problems No Family History Diabetes No Family History No family H/O neurological conditions No H/O brain tumors in family No H/O 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 diseases in the family She has 2 biological daughters who are healthy. Social History Tobacco Use Smoking status: Some Days Current packs/day: 0.30 Average packs/day: 0.3 packs/day for 40.0 years (12.0 ttl pk-yrs) Types: Cigarettes Passive exposure: Current Smokeless tobacco: Never Tobacco comments: Trying to quit currently Used to smoke a pack per day on average Vaping Use Vaping status: Some Days Substances: Flavoring Devices: Disposable Substance Use Topics Alcohol use: Not Currently Drug use: Never Allergies: Budesonide-Formoterol, Aspirin, Latex, Penicillins, Adhesive Tape-Silicones, Budesonide, and Formoterol Current Outpatient Medications Medication Sig OXcarbazepine (TRILEPTAL) 300 mg tablet 1 and a half tablet bid OXcarbazepine (TRILEPTAL) 300 mg tablet 1 and a half tablet bid Patient should start on January. iv contrast (will be provided with radiology test) MRI Brain Inject, intravenously, once for 1 dose.No IV access, insert saline lock prior to beginning of sedation, infusion, injection of imaging exam.Discontinue saline lock post exam. If Pt. has a central line or IVAD, may access for administration according to line specific nursing protocol.Once exam is complete flush line and de-access according to line specific nursing protocol in the MR contrast administration guidelines link lactobacillus combination no.4 (PROBIOTIC) 3 billion cell cap isosorbide mononitrate ER (IMDUR) 30 mg 24 hr tablet Take 1 tablet by mouth every afternoon. aspirin, enteric coated (ASPIRIN, ENTERIC COATED) 81 mg EC tablet Take 1 tablet by mouth every afternoon. albuterol HFA (PROVENTIL HFA, VENTOLIN HFA) 90 mcg/actuation inhaler Inhale as instructed. evolocumab 140 mg/mL subcutaneous pen injector (REPATHA SURECLICK) Inject 140 mg subcutaneously every 2 weeks. ondansetron (ZOFRAN) 8 mg tablet Take 1 tablet by mouth every 8 hours as needed for nausea/vomiting. pantoprazole DR (PROTONIX) 40 mg tablet Take 1 tablet by mouth once daily. acetaminophen (TYLENOL) 325 mg tablet 2 tablets by ORAL/FEEDING TUBE route every 4 hours as needed for pain. senna-docusate (SENNA-S) 8.6-50 mg per tablet 1 tablet by ORAL/FEEDING TUBE route twice daily. hydroCHLOROthiazide 12.5 mg tablet Take 12.5 mg by mouth once daily. (Patient not taking: Reported on 01/28/2024) buPROPion XL (WELLBUTRIN XL) 300 mg 24 hr tablet Take 300 mg by mouth every morning. (Patient not taking: Reported on 01/28/2024) clonazePAM (KLONOPIN) 0.5 mg tablet Take 0.5 mg by mouth twice daily as needed for anxiety. traZODone (DESYREL) 100 mg tablet Take 300 mg by mouth daily at bedtime. vilazodone (VIIBRYD) 40 mg tablet Take 40 mg by mouth once daily. losartan (COZAAR) 25 mg tablet Take 25 mg by mouth once daily. metoprolol succinate ER (TOPROL XL) 25 mg 24 hr tablet Take 12.5 mg by mouth once daily. ezetimibe (ZETIA) 10 mg tablet Take 10 mg by mouth once daily. cariprazine (VRAYLAR) 3 mg capsule Take 3 mg by mouth once daily. No current facility-administered medications for this visit. Review of systems: Constitutional: No recent fever or weight loss. Eyes: No history of glaucoma or cataracts. ENMT: No recent ear infection, nasal congestion, mouth sores or sore throat. CV: No history of chest pain, palpitations or leg swelling. Respiratory: No history of SOB, asthma or recent cough. Gastrointestinal: No history of nausea, vomiting, dysphagia or abdominal pain. Genitourinary: No history of hematuria or dysuria. Musculoskeletal: No complaint of arthritis, unstable gait or arm/leg weakness. Psychiatric: No history of hallucinations or depression or anxiety. ROS Neurological: No complaint of headache. No complaint of tinnitus. No complaint of decreased hearing. No complaint of diplopia. No complaints of decreased visual acuity. No complaint of arm/leg numbness. No problem with limb coordination. No complaint of syncope, seizures or disorientation. Objective Physical Exam: There were no vitals taken for this visit. This is a virtual exam based on observational as below: No vital signs. NEURO: on observation, CN intact (patient had a visual field deficit - see notes of in person encounters), no pronator drift, no tremor noted, self reported and/or on observation moves extremities equally, no self-reported sensory deficits and ambulating without difficulty. Karnofsky performance status: 80 - Normal activity with effort, some signs or symptoms of disease. ECOG performance status: 1 - Restricted in physically strenuous activity but ambulatory and able tocarry out work of a light or sedentary nature, e.g., light house work or office work. 01/28/2024 PHQ 2 and 9 Total Scores PHQ-2 Score 4 PHQ-9 Score 9 Labs: Latest Ref Rng & Units 12/14/2022 12/15/2022 11/29/2023 CBC WBC 3.70 - 11.00 k/uL 3.88 4.74 5.19 RBC 3.90 - 5.20 m/uL 4.40 4.28 5.12 Hemoglobin 11.5 - 15.5 g/dL 12.5 12.2 13.2 Hematocrit 36.0 - 46.0 % 38.1 37.2 41.9 MCV 80.0 - 100.0 fL 86.6 86.9 81.8 MCH 26.0 - 34.0 pg 28.4 28.5 25.8 MCHC 30.5 - 36.0 g/dL 32.8 32.8 31.5 RDW-CV 11.5 - 15.0 % 14.0 14.1 15.1 Platelet Count 150 - 400 k/uL 180 179 192 MPV 9.0 - 12.7 fL 8.7 9.0 8.6 Baso% % 0.8 Abs Neut (ANC) 1.45 - 7.50 k/uL 3.17 Abs Lymph 1.00 - 4.00 k/uL 1.43 Abs Mccracken <0.87 k/uL 0.40 Abs Eosin <0.46 k/uL 0.13 Abs Baso <0.11 k/uL 0.04 NRBC /100 WBC 0.0 Latest Ref Rng & Units 06/01/2023 06/18/2023 11/29/2023 CMP Sodium 136 - 144 mmol/L 139 Potassium 3.7 - 5.1 mmol/L 3.8 Chloride 98 - 107 mmol/L 104 CO2 22 - 30 mmol/L 26 Glucose 74 - 99 mg/dL 91 92 BUN 7 - 21 mg/dL 6 Creatinine 0.58 - 0.96 mg/dL 0.93 EGFR >=60 mL/min/1.73m 72 Protein, Total 6.3 - 8.0 g/dL 6.6 Albumin 3.9 - 4.9 g/dL 4.0 Albumin, Serum 3,900 - 4,900 mg/dL 3,900 Calcium 8.5 - 10.2 mg/dL 9.1 Bilirubin, Total 0.2 - 1.3 mg/dL 0.4 AST 13 - 35 U/L 19 ALT 7 - 38 U/L 20 Alkaline Phosphatase 34 - 123 U/L 88 Final Pathology: SURGICAL PATHOLOGY: [id number] Order: [id number] Collected 11/04/2022 11:13 AM Status: Final result Visible to patient: No (scheduled for 11/14/2022 1:09 PM) Dx: Glioma (HCC) 0 Result Notes Component FINAL DIAGNOSIS A. Brain, right corpus callosum lesion, stereotactic biopsy - Minute focus of atypical cells in a reactive background; - See comment. B. Brain, right corpus callosum lesion, stereotactic biopsy - Gliosis with scattered macrophages. Diagnosis Comment The biopsy shows focal hypercellularity at one corner (less than 5% of tissue submitted) with atypical angulated elongated nuclei and fibrillary background suspicious for glioma. Unfortunately this area is only present on the frozen section slide and is cut through on the resubmitted tissue. It is not present in any of the other slides/block submitted. The remainder of the specimen shows white matter with scattered foamy macrophages and gliosis. Part B shows white matter with scattered macrophages and gliosis but does not have the atypical area noted in frozen section. Immunohistochemical stains performed to help with classification show thefollowing (B1): CD68 highlights scattered macrophages; IDH1 R132H negative (wt); ATRX retained; p53 strong nuclear positivity 10%; Ki-67 proliferative index 1%; BRAF V600E negative (wildtype); H3 K27M negative (wt); H3 K27me3 retained; Luxol fast blue focal mild loss; Neurofilament cocktail with focal decreased axons; GMS negative for fungus; Gram negative for bacteria. FISH for EGFR reported separately. Slides also reviewed by Drs. Maria Luisa Leonardo and Jesu Narvaez who agree. Imaging: Results MRI BRAIN WO/W IVCON (Acc#[id number]) (Order [id number]) Patient Info Patient Name Sex Josie Landis ([id number]) Female 1965 04/12/2024 1:02 PM - Radiology, [place] In Impression IMPRESSION: Unchanged examination. Nonenhancing lesion in the splenium of the corpus callosum appears stable. No perfusion abnormality. Assessment & Plan Mrs. Landis is a 58 YO RHF who presents back at the end of May 2022, with acute, language dysfunction, visual field deficit and likely alexia, which occur on the day of a cardiovascular procedure, coronary artery stent placement with a brain MRI that reveals a splenium of the corpus callosum abnormality. A follow up MRI 09/25/22 revealed that the SCC lesion has slightly progressed in size.Her stroke neurologist Dr. Pro felt that this does not fit with a stroke and because the neuroradiology reading suggest that this could be a glioma, she referred the patient to our [facility] [place] for evaluation, On 11/02/22, she had a biopsy by Dr. Jovel, neurosurgeon at the [facility]. The pathology is basically non diagnostic. Has had extensive work up with no definite diagnosis. Current plan: surveillance only. Symptomatically the patient remains with some language dysfunction, mainly word finding difficulty,right visual field deficit, and likely alexia. PLAN: 1-Splenium of the corpus callosum lesion, etiology unclear: S/P biopsy with non diagnostic pathology. Work up so far unremarkable. Plan to do an MRI of the brain w and w/o + perfusion in 6 month's time. -Follow up in my neuro-oncology clinic 1-2 days after the MRI. Virtual visit Ok. -If the lesion were to change, and or patient develops symptom, that may be related to the lesion, she may need a 2nd biopsy. 2-Lumbar MRI 02/18/23 reported as: Mild enhancement of the RIGHT S1 nerve root, not significantly changed in appearance from 12/09/2022, with new mild enhancement of the RIGHT S2 nerve root. Previously queried equivocal enhancement of the LEFT S1 nerve root is no longer definitively seen. Repeat lumbar MRI - 07/19/2023 showed no abnormality - what was seen on MR from 02/18/2023 probably an artifact. Continue watch clinically. 3-Paresthesias of arms/hands. Resolved. -04/19/23 MRI C-spine w and w/o thoracic spine MR w and w/o contrast, NEG -MRI of the lumbar spine from June 2023, is also negative for any enhancement or changes to just drop metastases -Continue clinical surveillance The patient/family was advised to call if symptoms worsen and she may need to be evaluated sooner, or go to the ED. She has been enrolled, and the physical therapy program for her leg pain. Dr. Lozano has ordered electrophysiological evaluation supportive leg paresthesias. 4-Follow up with neuroimmunology: With Dr. Lozano. 5-Referral to Neuro ID for opinion whether the SCC lesion is of infectious etiology, i.e., indolentprocess, and recommendations on further work up. The patient has been seen by the neuro infectious diseases with Dr. Pinedo. 6-Referral to neuro-ophthalmology: Was seen by neuro-ophthalmology 12/15/22. 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 To follow up with neuro-ophthalmology. 7-Follow with Dr. Pro from cerebrovascular/stroke neurology. 8-Follow with her project control manager for her CAD, S/p coronary artery stents. 9-Follow with her PCP for general medical care/coordination of care, Dr. Cool. 10-Not to drive a car or any other motorized vehicle, and not to engage in activities that could place her at risk to her and or others of injury is she were to have episodes of confusion. 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 For now, as she had episodes ofconduction which have not been clarified yet, also she has a visual field deficit on the right. Herdriving privileges to be resumed depending on her progress/entities found. 11- CT chest:11/25/22: 1. No suspicious primary lung malignancy noted. 2. Few scattered small pulmonary nodules measuring less than 5 mm. Comments: If there are risk factors for lung malignancy, a follow-up chest CT exam could be obtained in 12 months NOTE: the patient has risk factor for lung CA she has been smoking tobacco for many yeas. -CT chest/abdomen and pelvis w and w/o contrast No metastatic disease in the abdomen and pelvis. 12/14/22 PET scan: No hypermetabolic lesions seen. PCP to do follow up CT chest, in 6-12 months time ( from the CT done on 11/25/2022). Th note CC [facility] Dr. Cool. 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 Based on her duties, I think Mrs. Landis, would not be able to complete the task she reports she needs to do for her job. She says she will be filing for disability, and we will support that. She should also seek help from her PCP. In the end the patient and family verbalized understanding of the above, they had questions which Ibelieve I answered to their satisfaction and agreed with these recommendations and had no further questions or concerns for the moment, but I encourage them to call the [facility] with any questions or concerns. I spent a total of 40 minutes on the date of the service which included preparing to see the patient, at least 50% of [id number] patient care, completing clinical documentation, obtaining and/or reviewing separately obtained history, performing a medically appropriate examination, counseling and educating the patient/family/caregiver, ordering medications, tests, or procedures, communicating with other HCPs (not separately reported), independently interpreting results (not separately reported), communicating results to the patient/family/caregiver and care coordination (not separately reported). This is a high MDM. Codie Soto MD Staff Neuro-Oncologist [facility] [place], [place] CC: CC -Carlos Jovel MD, Neurosurgery, [facility], [facility], [facility] CC: Rad Pro DO, Vascular Neurology, [facility] CC: Dr. Solis Cool, , PCP, [address] [place] [address] [address], [place] [id number], ; -Triston Lozano MD, Neurology/Neuroimmunology, [facility] -David Rios MD, Neuro-ophthalmology, [facility] -Americo Haney DO, Infectious Disease, [facility] -Rich Gudino MD, Neuro-Immunology, Neurology, [facility] -Berto Albarado MD, Neuro-Immunology, Neurology, [facility] -Jim Pinedo MD, Neuro Infectious Diseases, [facility] documented in this encounterC[facility]12[facility]24 NoteHNO ID: [id number] Author: PAULA BLAKE RT(R) Service: ? Author Type: Technologist Type: Progress Notes Filed: 04/12/2024 10:59 Note Text: Radiology Service Progress Note DATE OF SERVICE: April 12, 2024 TIME: 10:56 AM PATIENT IDENTITY VERIFICATION COMPLETED USING TWO (2) STANDARD IDENTIFIERS: Name and Date of confirmed by patient verbally. FALL SCREENING: Has the patient had 2 falls in the last year or 1 fall with injury or currently using an Ambulatory Assistive Device (Walker, Cane, Wheelchair, Crutches, etc.)? No PATIENT GENDER DATA: Female. status: : No status: NO. PATIENT RELEVANT IMPLANT DATA REVIEWED: Yes PATIENT PRESENTS WITH AN IMPLANTABLE OR ATTACHED GRILL ASSOCIATE: No ALLERGIES: Reviewed and unchanged CONTRAST ALLERGY: NO. EXAM: MRI - CONTRAST TYPE: GROUP II PERIPHERAL IV DATA: Ambulatory: A peripheral IV was started in the Right antecubital site with a Angio cath: 20 gauge. RADIOLOGY DEPARTMENT: MR; Exam(s) Completed: Head: Routine Brain with Perfusion SIGNATURE: Paula Blake, RT(R) PATIENT NAME: Josie Landis DATE: April 12, 2024 TIME: 10:56 [facility]09-27-2024 NoteHNO ID: [id number] Author: TANIA MONROY MD Service: ? Author Type: Physician Type: Progress Notes Filed: 02/01/2024 09:15 Note Text: [facility] Patient Name: Josie FOX Date of : 1965 Referring Provider: Libertad Santiago [address] [facility] [address] [facility] [address] INITIAL EPILEPSY CLINIC NOTE 01/28/2024 2:00 PM CHIEF COMPLAINT: New Patient HISTORY OF PRESENT ILLNESS Ms. Landis is a 58 year old right-handed female seen [facility] for initial consultation. 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 Soto on October 20, 2023. 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 Given progression of the lesion the patient underwent a biopsy with Dr. Jovel on 11/04/22 and pathology non diagnostic. Patient was told that she experienced grand mal seizures at age 24 year old. She was on mthrylphenobarbital seizure. She continued to have seizures and eventually he was seizure are and ASM was d/c at age 13 yo. She experienced seizures again at age [age] year old. She recalls that she was able to say that she was going to have one and she was passing out. This was a single event and she was not on ASM. Next seizure was when she was given , soon in the past period. She was 19 yo. She was not on ASM. The next seizure was before having gallbladder surgery at age 30 yo Then psychiatrist started her on Tegretol and Topamax , unknown dose for bipolar. She is not taking it anymore. Six years ago she was in her car at work waiting to go to work. She reports that she called her mother, she told her that she was about to pass out, 3 minutes later she came out from a seizure. Father went to pick her up. For the last 6 years she did not experience any event until 2 weeks ago. She was in the car as a passenger with her , told the that she had nauseas, wanted to take zofran, did not take it, set back, eyes rolled back, hands were shaking, unresponsive. moaning. Duration 30 -60 seconds. called her name, she confused. Patient amnestic of the event. Patient had urine incontinence. No tongue biting. Later patient called her daughter who told the patient to go to the ED. reports that she was back to baseline. A week later , patient experienced another event. She again had nauseas, set down, called her 's name, passed out for unknown time. Had urine incontinence,, very tired after the event. The next day she slept almost [address] hours[address] She spoke with Dr Huizar, Brain Tumor. MRI purvi was ordered and showed stable findings. She was referred to Epilepsy On no ASM History of bipolar disorder Total # of Current Anti-seizure Medications: 0 Number of seizure types: 2 Seizure-related driving accidents: No Driving: No Lives Alone: No ED Visits in Last 3 Months: Yes Hospitalizations in Last 3 Months: Yes CURRENT OUTPATIENT ANTISEIZURE MEDICATIONS (as of the start of the encounter) clonazePAM (KLONOPIN) 0.5 mg tablet (Taking) Prior Anti-seizure Therapies: Trial Adequacy: Max Daily Dose Achieved: Side Effects: Effectiveness: Comments: Carbamazepine Levetiracetam Topiramate Comorbidities: Episode Description: Patient Entered Data: EPILEPSY SCORE 01/28/2024 7:01 AM 01/28/2024 6:59 AM 01/28/2024 6:58 AM First answer obtained - 06/24/2022 3:58 PM PHQ-9 SCORE - - - - TASNEEM 2 SCORE 4 [Positive Anxiety Screen] - - - TASNEEM 7 SCORE 14 [Moderate Anxiety Disorder] - - - QOLIE-10 SCORE (0=worst; 100=best QoL - higher scores represent better function) - - - - LSSS SCORE (0- no seizures 100- most severe possible seizures) - - - - C-SSRS SCREEN - - - - On average, how many hours of sleep do you get in a 24-hour period? - - - PROMIS Sleep Disturbance T-SCORE - - - 58 [mild] Have you been diagnosed with Sleep Apnea? - No - - Seizure risk factors: Brain Tumor Unanswered SPECIAL NEEDS BABYSITTER Infections Unanswered Developmental Delay Unanswered Family history of seizures Unanswered Febrile Seizure Unanswered Complications Unanswered Stroke Yes Traumatic Brain Injury Unanswered Previous Epilepsy Evaluations Other caregivers: Primary Care Provider: Solis Cool, DO, DO Current Outpatient Medications Medication Sig lactobacillus combination no.4 (PROBIOTIC) 3 billion cell cap isosorbide mononitrate ER (IMDUR) 30 mg 24 hr tablet Take 1 tablet by mouth every afternoon. aspirin, enteric coated (ASPIRIN, ENTERIC COATED) 81 mg EC tablet Take 1 tablet by mouth every afternoon. albuterol HFA (PROVENTIL HFA, VENTOLIN HFA) 90 mcg/actuation inhaler Inhale as instructed. evolocumab 140 mg/mL subcut (more content not included)...[facility]09-27-2024 History of Present illness Narrative* Tania Monroy MD - 01/28/2024 3:15 PM EDT [facility] Patient Name: Josie FOX Date of : 1965 Referring Provider: Libertad Santiago [address] [facility] [address] [address] INITIAL EPILEPSY CLINIC NOTE 01/28/2024 2:00 PM CHIEF COMPLAINT: New Patient HISTORY OF PRESENT ILLNESS Ms. Landis is a 58 year old right-handed female [facility] for initial consultation. 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 Soto on October 20, 2023. 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 Given progression of the lesion the patient underwent a biopsy with Dr. Jovel on 11/04/22 and pathology non diagnostic. Patient was told that she experienced grand mal seizures at age 24 year old. She was on mthrylphenobarbital seizure. She continued to have seizures and eventually he was seizure are and ASM was d/c atage 13 yo. She experienced seizures again at age [age] year old. She recalls that she was able to say that she was going to have one and she was passing out. This was a single event and she was not on ASM. Next seizure was when she was given , soon in the past period. She was 19 yo. She was not on ASM. The next seizure was before having gallbladder surgery at age 30 yo Then psychiatrist started her on Tegretol and Topamax , unknown dose for bipolar. She is not takingit anymore. Six years ago she was in her car at work waiting to go to work. She reports that she called her mother, she told her that she was about to pass out, 3 minutes later she came out from a seizure. Father went to pick her up. For the last 6 years she did not experience any event until 2 weeks ago. She was in the car as a passenger with her , told the that she had nauseas, wanted to take zofran, did not take it, set back, eyes rolled back, hands were shaking, unresponsive. moaning. Duration 30 -60 seconds. called her name, she confused. Patient amnestic of the event. Patient had urine incontinence. No tongue biting. Later patient called her daughter who told the patient to go to the ED. reports that she was back to baseline. A week later , patient experienced another event. She again had nauseas, set down, called her 's name, passed out for unknown time. Had urine incontinence,, very tired after the event. The next day she slept almost 20 hours. She spoke with Dr Huizar, Brain Tumor. MRI purvi was ordered and showed stable findings. She was referred to Epilepsy On no ASM History of bipolar disorder Total # of Current Anti-seizure Medications: 0 Number of seizure types: 2 Seizure-related driving accidents: No Driving: No Lives Alone: No ED Visits in Last 3 Months: Yes Hospitalizations in Last 3 Months: Yes CURRENT OUTPATIENT ANTISEIZURE MEDICATIONS (as of the start of the encounter) clonazePAM (KLONOPIN) 0.5 mg tablet (Taking) Prior Anti-seizure Therapies: Trial Adequacy: Max Daily Dose Achieved: Side Effects: Effectiveness: Comments: Carbamazepine Levetiracetam Topiramate Comorbidities: Episode Description: Patient Entered Data: EPILEPSY SCORE 01/28/2024 7:01 AM 01/28/2024 6:59 AM 01/28/2024 6:58 AM First answer obtained - 06/24/2022 3:58 PM PHQ-9 SCORE - - - - TASNEEM 2 SCORE 4 [Positive Anxiety Screen] - - - TASNEEM 7 SCORE 14 [Moderate Anxiety Disorder] - - - QOLIE-10 SCORE (0=worst; 100=best QoL - higher scores represent better function) - - - - LSSS SCORE (0- no seizures 100- most severe possible seizures) - - - - C-SSRS SCREEN - - - - On average, how many hours of sleep do you get in a 24-hour period? - - - PROMIS Sleep Disturbance T-SCORE - - - 58 [mild] Have you been diagnosed with Sleep Apnea? - No - - Seizure risk factors: Brain Tumor Unanswered SPECIAL NEEDS BABYSITTER Infections Unanswered Developmental Delay Unanswered Family history of seizures Unanswered Febrile Seizure Unanswered Complications Unanswered Stroke Yes Traumatic Brain Injury Unanswered Previous Epilepsy Evaluations Other caregivers: Primary Care Provider: Solis Cool, DO, DO Current Outpatient Medications Medication Sig lactobacillus combination no.4 (PROBIOTIC) 3 billion cell cap isosorbide mononitrate ER (IMDUR) 30 mg 24 hr tablet Take 1 tablet by mouth every afternoon. aspirin, enteric coated (ASPIRIN, ENTERIC COATED) 81 mg EC tablet Take 1 tablet by mouth every afternoon. albuterol HFA (PROVENTIL HFA, VENTOLIN HFA) 90 mcg/actuation inhaler Inhale as instructed. evolocumab 140 mg/mL subcutaneous pen injector (REPATHGuardiCore) Inject 140 mg subcutaneously every 2 weeks. ondansetron (ZOFRAN) 8 mg tablet Take 1 tablet by mouth every 8 hours as needed for nausea/vomiting. pantoprazole DR (PROTONIX) 40 mg tablet Take 1 tablet by mouth once daily. acetaminophen (TYLENOL) 325 mg tablet 2 tablets by ORAL/FEEDING TUBE route every 4 hours as needed for pain. senna-docusate (SENNA-S) 8.6-50 mg per tablet 1 tablet by ORAL/FEEDING TUBE route twice daily. clonazePAM (KLONOPIN) 0.5 mg tablet Take 0.5 mg by mouth twice daily as needed for anxiety. traZODone (DESYREL) 100 mg tablet Take 300 mg by mouth daily at bedtime. vilazodone (VIIBRYD) 40 mg tablet Take 40 mg by mouth once daily. losartan (COZAAR) 25 mg tablet Take 25 mg by mouth once daily. metoprolol succinate ER (TOPROL XL) 25 mg 24 hr tablet Take 12.5 mg by mouth once daily. ezetimibe (ZETIA) 10 mg tablet Take 10 mg by mouth once daily. cariprazine (VRAYLAR) 3 mg capsule Take 3 mg by mouth once daily. OXcarbazepine (TRILEPTAL) 300 mg tablet 1 and a half tablet bid [START ON 02/27/2024] OXcarbazepine (TRILEPTAL) 300 mg tablet 1 and a half tablet bid Patient should start on February 27, 2024. iv contrast (will be provided with radiology test) MRI Brain Inject, intravenously, once for 1 dose.No IV access, insert saline lock prior to beginning of sedation, infusion, injection of imaging exam.Discontinue saline lock post exam. If Pt. has a central line or IVAD, may access for administration according to line specific nursing protocol.Once exam is complete flush line and de-access according to line specific nursing protocol in the MR contrast administration guidelines link hydroCHLOROthiazide 12.5 mg tablet Take 12.5 mg by mouth once daily. (Patient not taking: Reported on 01/28/2024) buPROPion XL (WELLBUTRIN XL) 300 mg 24 hr tablet Take 300 mg by mouth every morning. (Patient not taking: Reported on 01/28/2024) No current facility-administered medications for this visit. ALLERGIES Allergen Reactions Budesonide-Formoter* Other: See Comments Aspirin Other: See Comments Latex Other: See Comments Penicillins Other: See Comments Adhesive Tape-Silic* Other: See Comments Budesonide Other: See Comments Formoterol Other: See Comments PAST MEDICAL HISTORY Diagnosis Date Asthma due to seasonal allergies 11/02/2022 Basal cell carcinoma (BCC) of cheek 2020 left cheek Bipolar affective (HCC) Coronary artery disease Coronary artery disease involving wiyot coronary artery of wiyot heart without angina pectoris 11/02/2022 Gastroesophageal reflux disease without esophagitis 11/02/2022 Hyperlipidemia Primary hypertension 11/02/2022 Seizures (HCC) 11/02/2022 Stroke (HCC) PAST SURGICAL HISTORY Procedure Laterality Date CHOLECYSTECTOMY HX EXCISION & REPAIR EYELID ONE-FOURTH LID MARGIN Left 2020 removal of BCC from left cheek LIGATE FALLOPIAN TUBE PAST SURGICAL HISTORY OF 05/2022 cardiac stent x 1 PAST SURGICAL HISTORY OF hiatal hernia repair PAST SURGICAL HISTORY OF partial hysterectomy SHOULDER ARTHROSCOPY/SURGERY Right torn rotator cuff TONSILLECTOMY HX UNLISTED CARDIAC SURG PROCEDURE 2018 cardiac stents x 2 FAMILY HISTORY Problem Relation Age of Onset Cataract Mother Heart Mother heart attack, stents Hypertension Mother Cancer Mother basal cell carcinoma of ear Cataract Father Heart Father stroke Hypertension Father Cancer Father Basal cell cancer Cancer Maternal Grandmother METS and unknown primary site Heart Maternal Grandfather of heart exploded Macular Degen Paternal Grandmother Cataract Paternal Grandmother Cancer Maternal Aunt METS and not sure of primary site Schizophrenia Maternal Aunt Cancer Granddaughter neuroblastoma Anesthesia Problems No Family History Diabetes No Family History SOCIAL HISTORY: -Lives in [place], [place] -Patient lives alone? No -Patient driving? No Review of Systems negative VITAL SIGNS: BP 139/72 Pulse 80 Resp 20 Ht 170.2 cm (5' 7) Wt 83.5 kg (184 lb) SpO2 96% BMI 28.82 kg/m General Examination: General Exam right homonymous hemianopsia IMPRESSION: Recently diagnosed with Brain tumor with untreated seizures for several years. Seizures changed dinsemiology after tumor was found. EEG today showed no epileptiform discharges She is on no ASM In heh past she used Topamax and Tegretol for bipolar disorder , and she did not experience seizures for years ASM options discussed, given her mood disorder , Keppra will not be used. We will use Trileptal since she responded well to tegretol, side effects discussed. PLAN: Trileptal to target 450 mg bid Follow up in 4 months I discussed the risks, benefits and alternatives of the medical plan with the patient. Questions were answered. The patient agreed with the plan as discussed. I spent a total of 45 minutes on the date of the service which included preparing to see the patient, [id number] patient care, and completing clinical documentation. Tania Salmon M.D documented in this encounterCinc[facility]09-27-2024 Instructions* Patient Instructions* Tania Monroy MD - 01/28/2024 3:13 PM EDT Trileptal 300 mg Week 1: Half a tablet twice a day Week 2: One tablet twice a day Week 3: One and a half tablet twice a day Call the office if you have questions or concerns at [phone] Follow up in 3 months Tania Salmon M.D documented in this encounterCinc[facility]09-25-2024 History of Present illness Narrative* Annamaria Templeton APRN.CHARLIE - 01/26/2024 8:45 AM EDT Images from the original note were not included. [facility] NEURO-ONCOLOGY VIRTUAL VISIT NOTE I have communicated my name and active licensure. The patient's identity and physical location wereverified at the time of this visit. Either the patient or their legal promotions representative has been informed of the risks and benefits of -- and alternatives to -- treatment through a remote evaluation andconsents to proceed with the evaluation remotely. This is a virtual visit using [employer] Video Visit. It required patient- provider interaction for the medical decision making as documented below. 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 Soto on October 20, 2023. 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 Given progression ofthe lesion the patient underwent a biopsy with Dr. Jovel on 11/04/22 and pathology non diagnostic. She presents today for follow up. INTERVAL HISTORY 01/26/24 Her last seizure was in November 2023. She is scheduled to see Epilepsy. SOCIAL HISTORY: Social History Tobacco Use Smoking status: Some Days Current packs/day: 0.30 Average packs/day: 0.3 packs/day for 40.0 years (12.0 ttl pk-yrs) Types: Cigarettes Smokeless tobacco: Never Tobacco comments: Trying to quit currently Used to smoke a pack per day on average Vaping Use Vaping status: Some Days Substances: Flavoring Devices: Disposable Substance Use Topics Alcohol use: Not Currently Drug use: Never PAST MEDICAL HISTORY Diagnosis Date Asthma due to seasonal allergies 11/02/2022 Basal cell carcinoma (BCC) of cheek 2020 left cheek Bipolar affective (HCC) Coronary artery disease Coronary artery disease involving wiyot coronary artery of wiyot heart without angina pectoris 11/02/2022 Gastroesophageal reflux disease without esophagitis 11/02/2022 Hyperlipidemia Primary hypertension 11/02/2022 Seizures (HCC) 11/02/2022 Stroke (HCC) FAMILY HISTORY Problem Relation Age of Onset Cataract Mother Heart Mother heart attack, stents Hypertension Mother Cancer Mother basal cell carcinoma of ear Cataract Father Heart Father stroke Hypertension Father Cancer Father Basal cell cancer Cancer Maternal Grandmother METS and unknown primary site Heart Maternal Grandfather of heart exploded Macular Degen Paternal Grandmother Cataract Paternal Grandmother Cancer Maternal Aunt METS and not sure of primary site Schizophrenia Maternal Aunt Cancer Granddaughter neuroblastoma Anesthesia Problems No Family History Diabetes No Family History Current Outpatient Medications Medication Sig iv contrast (will be provided with radiology test) MRI Brain Inject, intravenously, once for 1 dose.No IV access, insert saline lock prior to beginning of sedation, infusion, injection of imaging exam.Discontinue saline lock post exam. If Pt. has a central line or IVAD, may access for administration according to line specific nursing protocol.Once exam is complete flush line and de-access according to line specific nursing protocol in the MR contrast administration guidelines link lactobacillus combination no.4 (PROBIOTIC) 3 billion cell cap isosorbide mononitrate ER (IMDUR) 30 mg 24 hr tablet Take 1 tablet by mouth every afternoon. aspirin, enteric coated (ASPIRIN, ENTERIC COATED) 81 mg EC tablet Take 1 tablet by mouth every afternoon. albuterol HFA (PROVENTIL HFA, VENTOLIN HFA) 90 mcg/actuation inhaler Inhale as instructed. evolocumab 140 mg/mL subcutaneous pen injector (REPATHA SURECLICK) Inject 140 mg subcutaneously every 2 weeks. ondansetron (ZOFRAN) 8 mg tablet Take 1 tablet by mouth every 8 hours as needed for nausea/vomiting. pantoprazole DR (PROTONIX) 40 mg tablet Take 1 tablet by mouth once daily. acetaminophen (TYLENOL) 325 mg tablet 2 tablets by ORAL/FEEDING TUBE route every 4 hours as needed for pain. senna-docusate (SENNA-S) 8.6-50 mg per tablet 1 tablet by ORAL/FEEDING TUBE route twice daily. hydroCHLOROthiazide 12.5 mg tablet Take 12.5 mg by mouth once daily. buPROPion XL (WELLBUTRIN XL) 300 mg 24 hr tablet Take 300 mg by mouth every morning. clonazePAM (KLONOPIN) 0.5 mg tablet Take 0.5 mg by mouth twice daily as needed for anxiety. traZODone (DESYREL) 100 mg tablet Take 300 mg by mouth daily at bedtime. vilazodone (VIIBRYD) 40 mg tablet Take 40 mg by mouth once daily. losartan (COZAAR) 25 mg tablet Take 25 mg by mouth once daily. metoprolol succinate ER (TOPROL XL) 25 mg 24 hr tablet Take 12.5 mg by mouth once daily. ezetimibe (ZETIA) 10 mg tablet Take 10 mg by mouth once daily. cariprazine (VRAYLAR) 3 mg capsule Take 3 mg by mouth once daily. No current facility-administered medications for this visit. REVIEW OF SYSTEMS: Neurological : No complaint of headache No complaint of tinnitus No complaint of decreased hearing No complaint of diplopia No complaints of blurred vision. No complaint of arm/leg numbness No problem with limb coordination No complaint of syncope No complaints of seizures. No complaints of memory changes or disorientation. General : Constitutional: No recent fever or weight loss. Eyes: No history of glaucoma or cataracts ENMT: No recent ear infection, nasal congestion, mouth sores or sore throat. CV: No history of chest pain, palpitations or leg swelling Respiratory: No history of SOB, wheezing or recent cough. Gastrointestinal: No history of nausea, vomiting, dysphagia or abdominal pain. Genitourinary: No history of hematuria or dysuria. Musculoskeletal: No complaint of arthritis, unstable gait or arm/leg weakness Psychiatric: No history of hallucinations, depression, or anxiety Objective PHYSICAL EXAMINATION: VIDEO EXAM: (if completed, performed via video enabled technology) NEUROLOGICAL EXAM: Higher integrative functions: Oriented to person, place & time. Memory: Good recent and remote. Attention Span and Concentration: Good. Language: Accurate naming of objects. Good comprehension. Fund of Knowledge: Good. IMAGING STUDIES: MRI Brain WO/W IVCON MRI Report MRI BRAIN WO/W IVCON Exam End: 01/17/2024 10:53 AM (Final result) Narrative: * * *Final Report* * * DATE OF EXAM: Jan 17 2024 10:40AM [facility] [id number] - MRI BRAIN WO/W IVCON / PROCEDURE REASON: Brain lesion * * * * Physician Interpretation * * * * EXAMINATION: MRI BRAIN WO/W IVCON CLINICAL HISTORY: Brain lesion TECHNIQUE: Routine brain MRI protocol without and with contrast including diffusion images. Perfusion imaging also performed. MQ: [id number] Contrast: 16 mL Dotarem IV COMPARISON: Brain MRI 10/19/2023 RESULT: Acute Change: There is no evidence of restricted diffusion to suggest an acute infarct. Hemorrhage: No evidence of prior parenchymal hemorrhage on the gradient echo images. Mass Lesion/ Mass Effect: Stable from 10/19/2023 examination is a heterogeneous area of T2 hyperintensity in the spleen. No associated pathologic enhancement. Smaller more well marginated area of T1 hypointensity in the midline measures 3 mm and this is likewise unchanged. No associated reduced diffusivity. Perfusion: MR perfusion study was performed of the entire brain following bolus intravenous administration of gadolinium utilizing dynamic susceptibility-weighted contrast-enhanced acquisition. Perfusion imaging/postprocessing is of adequate quality. No perfusion abnormality. Chronic Change: Scattered punctate foci of increased T2 and FLAIR signal are noted in the supratentorial white matter which is a nonspecific finding, but likely represents minimal chronic microvascular ischemia. Parenchyma: No significant volume loss for age. The brain parenchyma is otherwise within normal limits of signal intensity and morphology. Ventricles: Normal caliber and morphology. Skull Base: Hypothalamic and pituitary region are grossly normal. Craniocervical junction is normal. No significant marrow replacement process. Vasculature: Major intracranial arterial structures, and dural venous sinuses show typical flow void, suggesting patency by spin echo criteria. Other: The visualized paranasal sinuses and mastoid air cells are clear. The orbits and extracranial soft tissues are unremarkable. Impression: IMPRESSION: Stable appearance the brain from 10/19/2023. Stable heterogeneous signal changes in the splenium of the corpus callosum without enhancement, reduced diffusivity or perfusional abnormality. Physical Chemistry Teacher: RHIANNON Transcribe Date/Time: Jan 17 2024 11:15A Dictated by : KERRI HOYT DO This examination was interpreted and the report reviewed and electronically signed by: KERRI HOYT DO on Jan 17 2024 11:23AM EST KPS and ECOG Provider Data Form MEDICAL DECISION MAKING Assessment & Plan 1. 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 Huizar and new MRI brain in 3 months - Reviewed signs and symptoms that would prompt sooner evaluation - The patient has our contact information and was advised to call if new symptoms, questions or concerns arise prior to next scheduled visit. - All questions were answered. 2. Seizures - Patient will see Epilepsy, at this point patient cannot drive until she is six months seizure free, will need to be cleared by Epilepsy I spent a total of 15 minutes on the date of the service which included completing clinical documentation and obtaining and/or reviewing separately obtained history Annamaria Templeton APRN.CNP Certified Nurse Practitioner cc: Codie Soto MD--EPIC documented in this encounterCincinnati [facility]24 NoteHNO ID: [id number] Author: ANNAMARIA TEMPLETON APRN.CNP Service: ? Author Type: Nurse Practitioner Type: Progress Notes Filed: 01/26/2024 08:56 Note Text: [facility] NEURO-ONCOLOGY VIRTUAL VISIT NOTE I have communicated my name and active licensure. The patient's identity and physical location were verified at the time of this visit. Either the patient or their legal promotions representative has been informed of the risks and benefits of -- and alternatives to -- treatment through a remote evaluation and consents to proceed with the evaluation remotely. This is a virtual visit using MyChart Zoom Video Visit. It required patient-provider interaction for the medical decision making as documented below. 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 Soto on October 20, 2023. 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 Given progression of the lesion the patient underwent a biopsy with Dr. Jovel on 11/04/22 and pathology non diagnostic. She presents today for follow up. INTERVAL HISTORY 01/26/24 Her last seizure was in November 2023. She is scheduled to see Epilepsy. SOCIAL HISTORY: Social History Tobacco Use Smoking status: Some Days Current packs/day: 0.30 Average packs/day: 0.3 packs/day for 40.0 years (12.0 ttl pk-yrs) Types: Cigarettes Smokeless tobacco: Never Tobacco comments: Trying to quit currently Used to smoke a pack per day on average Vaping Use Vaping status: Some Days Substances: Flavoring Devices: Disposable Substance Use Topics Alcohol use: Not Currently Drug use: Never PAST MEDICAL HISTORY Diagnosis Date Asthma due to seasonal allergies 11/02/2022 Basal cell carcinoma (BCC) of cheek 2020 left cheek Bipolar affective (HCC) Coronary artery disease Coronary artery disease involving wiyot coronary artery of wiyot heart without angina pectoris 11/02/2022 Gastroesophageal reflux disease without esophagitis 11/02/2022 Hyperlipidemia Primary hypertension 11/02/2022 Seizures (HCC) 11/02/2022 Stroke (HCC) FAMILY HISTORY Problem Relation Age of Onset Cataract Mother Heart Mother heart attack, stents Hypertension Mother Cancer Mother basal cell carcinoma of ear Cataract Father Heart Father stroke Hypertension Father Cancer Father Basal cell cancer Cancer Maternal Grandmother METS and unknown primary site Heart Maternal Grandfather of heart exploded Macular Degen Paternal Grandmother Cataract Paternal Grandmother Cancer Maternal Aunt METS and not sure of primary site Schizophrenia Maternal Aunt Cancer Granddaughter neuroblastoma Anesthesia Problems No Family History Diabetes No Family History Current Outpatient Medications Medication Sig iv contrast (will be provided with radiology test) MRI Brain Inject, intravenously, once for 1 dose.No IV access, insert saline lock prior to beginning of sedation, infusion, injection of imaging exam.Discontinue saline lock post exam. If Pt. has a central line or IVAD, may access for administration according to line specific nursing protocol.Once exam is complete flush line and de-access according to line specific nursing protocol in the MR contrast administration guidelines link lactobacillus combination no.4 (PROBIOTIC) 3 billion cell cap isosorbide mononitrate ER (IMDUR) 30 mg 24 hr tablet Take 1 tablet by mouth every afternoon. aspirin, enteric coated (ASPIRIN, ENTERIC COATED) 81 mg EC tablet Take 1 tablet by mouth every afternoon. albuterol HFA (PROVENTIL HFA, VENTOLIN HFA) 90 mcg/actuation inhaler Inhale as instructed. evolocumab 140 mg/mL subcutaneous pen injector (REPATHA SURECLICK) Inject 140 mg subcutaneously every 2 weeks. ondansetron (ZOFRAN) 8 mg tablet Take 1 tablet by mouth every 8 hours as needed for nausea/vomiting. pantoprazole DR (PROTONIX) 40 mg tablet Take 1 tablet by mouth once daily. acetaminophen (TYLENOL) 325 mg tablet 2 tablets by ORAL/FEEDING TUBE route every 4 hours as needed for pain. senna-docusate (SENNA-S) 8.6-50 mg per tablet 1 tablet by ORAL/FEEDING TUBE route twice daily. hydroCHLOROthiazide 12.5 mg tablet Take 12.5 mg by mouth once daily. buPROPion XL (WELLBUTRIN XL) 300 mg 24 hr tablet Take 300 mg by mouth every morning. clonazePAM (KLONOPIN) 0.5 mg tablet Take 0.5 mg by mouth twice daily as needed for anxiety. traZODone (DESYREL) 100 mg tablet Take 300 mg by mouth daily at bedtime. vilazodone (VIIBRYD) 40 mg tablet Take 40 mg by mouth once daily. losartan (COZAAR) 25 mg tablet Take 25 mg by mouth once daily. metoprolol succinate ER (TOPROL XL) 25 mg 24 hr tablet Take 12.5 (more content not included)...[facility]09-16-2024 History of Present illness Narrative* David Justice, RT(R) - 01/17/2024 10:00 AM EDT Radiology Service Progress Note DATE OF SERVICE: January 17, 2024 TIME: 10:18 AM PATIENT IDENTITY VERIFICATION COMPLETED USING TWO (2) STANDARD IDENTIFIERS: Name and Date of confirmed by patient verbally. FALL SCREENING: Has the patient had 2 falls in the last year or 1 fall with injury or currently using an Ambulatory Assistive Device (Walker, Cane, Wheelchair, Crutches, etc.)? No PATIENT GENDER DATA: Female. status: : No status: NO. PATIENT RELEVANT IMPLANT DATA REVIEWED: Yes PATIENT PRESENTS WITH AN IMPLANTABLE OR ATTACHED GRILL ASSOCIATE: No ALLERGIES: Reviewed and unchanged CONTRAST ALLERGY: NO. EXAM: MRI - CONTRAST TYPE: GROUP II PERIPHERAL IV DATA: Ambulatory: A peripheral IV was started in the Left antecubital site with a Angio cath: 20 gauge. RADIOLOGY DEPARTMENT: MR; Exam(s) Completed: Head: Routine Brain with Perfusion SIGNATURE: RT Hayden(Irving) PATIENT NAME: Josie Landis DATE: January 17, 2024 TIME: 10:18 AM documented in this encounterCincinnati [facility]09-16-2024 NoteHNO ID: [id number] Author: DAVID JUSTICE RT (R) Service: ? Author Type: Technologist Type: Progress Notes Filed: 01/17/2024 10:19 Note Text: Radiology Service Progress Note DATE OF SERVICE: January 17, 2024 TIME: 10:18 AM PATIENT IDENTITY VERIFICATION COMPLETED USING TWO (2) STANDARD IDENTIFIERS: Name and Date of confirmed by patient verbally. FALL SCREENING: Has the patient had 2 falls in the last year or 1 fall with injury or currently using an Ambulatory Assistive Device (Walker, Cane, Wheelchair, Crutches, etc.)? No PATIENT GENDER DATA: Female. status: : No status: NO. PATIENT RELEVANT IMPLANT DATA REVIEWED: Yes PATIENT PRESENTS WITH AN IMPLANTABLE OR ATTACHED GRILL ASSOCIATE: No ALLERGIES: Reviewed and unchanged CONTRAST ALLERGY: NO. EXAM: MRI - CONTRAST TYPE: GROUP II PERIPHERAL IV DATA: Ambulatory: A peripheral IV was started in the Left antecubital site with a Angio cath: 20 gauge. RADIOLOGY DEPARTMENT: MR; Exam(s) Completed: Head: Routine Brain with Perfusion SIGNATURE: RT Hayden(R) PATIENT NAME: Josie Landis DATE: January 17, 2024 TIME: 10:18 [facility]08-21-2024 NoteHNO ID: [id number] Author: NENA SMITH APRN.CHARLIE Service: ? Author Type: Nurse Practitioner Type: Progress Notes Filed: 12/22/2023 17:32 Note Text: [facility] Review of Records Patient: Josie Landis Address: [address] [place] [address] Impression: Review of records for Josie Landis, a 58 year old female, being referred by Libertad Santiago CNP [[facility]] to Any Epileptologist for further evaluation and treatment. Patient has previously diagnosed seizures and PNES. EEG report from > 15 years ago is not available. 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 Patient has trialed 0 AEDs. As she is reporting 2 recent episodes and her prior EEG was done at an outside facility > 15 years ago, VEEG is indicated for event characterization and diagnostic evaluation to determine best treatment options. Summary: Onset: 5 years old Recent Seizure Frequency: 2 in the last 4 weeks (one 2 weeks ago, one 4 weeks ago); before those, she had not had an episode in 6 years Seizure Description(s) Available: Type A: Sitting up, head went forward, eyes rolled back, hand trembling, urinary incontinence, loss of consciousness, felt odd afterwards Duration: 1 minute Current AED(s): None Previous AED(s): None PMH: CAD w/3 stents placed May 2022, HTN, hyperlipidemia, stroke, GERD, basal cell ca, bipolar disorder, PNES PRIOR EVALUATIONS: [facility] EEG (Report not available): MRI brain wo/w contrast ([facility], 10/19/2023): IMPRESSION: Unchanged appearance of the brain compared to most recent MRI performed 07/19/2023 with no new or enlarging lesions identified. No abnormal enhancement. Primary differential considerations include sequelae of nonspecific inflammatory and 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 process with neoplasm considered less likely. Brain biopsy ([facility], 11/04/2022): Component FINAL DIAGNOSIS A. Brain, right corpus callosum lesion, stereotactic biopsy - Minute focus of atypical cells in a reactive background; - See comment. B. Brain, right corpus callosum lesion, stereotactic biopsy - Gliosis with scattered macrophages. Diagnosis Comment The biopsy shows focal hypercellularity at one corner (less than 5% of tissue submitted) with atypical angulated elongated nuclei and fibrillary background suspicious for glioma. Unfortunately this area is only present on the frozen section slide and is cut through on the resubmitted tissue. It is not present in any of the other slides/block submitted. The remainder of the specimen shows white matter with scattered foamy macrophages and gliosis. Part B shows white matter with scattered macrophages and gliosis but does not have the atypical area noted in frozen section. Immunohistochemical stains performed to help with classification show the following (B1): CD68 highlights scattered macrophages; IDH1 R132H negative (wt); ATRX retained; p53 strong nuclear positivity 10%; Ki-67 proliferative index 1%; BRAF V600E negative (wildtype); H3 K27M negative (wt); H3 K27me3 retained; Luxol fast blue focal mild loss; Neurofilament cocktail with focal decreased axons; GMS negative for fungus; Gram negative for bacteria. FISH for EGFR : The following FISH results were obtained: EGFR: 1.78 CEP7: 2.15 EGFR/CEP7 ratio: 0.83 (Reference Range: Amplified >2.00) INTERPRETATION: Negative for amplification of the EGFR gene. BEATRICE Recommendations: - Admit to EMU for VEEG monitoring, diagnostic evaluation Location: [facility] [place] - Visit with epileptologist prior to admission - Additional testing to be considered by epilepsy clinicians Signed: Nena Smith APRN.CNP December 22, [address] Luong for review and recommendations. MD Recommendations (as discussed with Dr. Luong): - Please start with a long EEG and consultation with an Epileptologist.[facility]08-21-2024 History of Present illness Narrative* Nnea Smith APRN.CHARLIE - 12/22/2023 1:03 PM EDT [facility] Review of Records Patient: Josie Landis Address: [address] [place] [address] Impression: Review of records for Josie Landis, a 58 year old female, being referred by Libertad Santiago CNP [[facility]] to Any Epileptologist for further evaluation and treatment. Patient has previously diagnosed seizures and PNES. EEG report from > 15 years ago is not available. 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 Patient has trialed 0 AEDs. As she is reporting 2 recent episodes and her prior EEG was done at an outside facility > 15 years ago, VEEG is indicated for event characterization and diagnostic evaluation to determine best treatment options. Summar y: Onset: 5 years old Recent Seizure Frequency: 2 in the last 4 weeks (one 2 weeks ago, one 4 weeks ago); before those, she had not had an episode in 6 years Seizure Description(s) Available: Type A: Sitting up, head went forward, eyes rolled back, hand trembling, urinary incontinence, lossof consciousness, felt odd afterwards Duration: 1 minute Current AED(s): None Previous AED(s): None PMH: CAD w/3 stents placed May 2022, HTN, hyperlipidemia, stroke, GERD, basal cell ca, bipolar disorder, PNES PRIOR EVALUATIONS: [facility] EEG (Report not available): MRI brain wo/w contrast ([facility], 10/19/2023): IMPRESSION: Unchanged appearance of the brain compared to most recent MRI performed 07/19/2023 with no new or enlarging lesions identified. No abnormal enhancement. Primary differential considerations include sequelae of nonspecific inflammatory and 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 process with neoplasm considered less likely. Brain biopsy ([facility], 11/04/2022): Component FINAL DIAGNOSIS A. Brain, right corpus callosum lesion, stereotactic biopsy - Minute focus of atypical cells in a reactive background; - See comment. B. Brain, right corpus callosum lesion, stereotactic biopsy - Gliosis with scattered macrophages. Diagnosis Comment The biopsy shows focal hypercellularity at one corner (less than 5% of tissue submitted) with atypical angulated elongated nuclei and fibrillary background suspicious for glioma. Unfortunately this area is only present on the frozen section slide and is cut through on the resubmitted tissue. It is not present in any of the other slides/block submitted. The remainder of the specimen shows white matter with scattered foamy macrophages and gliosis. Part B shows white matter with scattered macrophages and gliosis but does not have the atypical area noted in frozen section. Immunohistochemical stains performed to help with classification show thefollowing (B1): CD68 highlights scattered macrophages; IDH1 R132H negative (wt); ATRX retained; p53 strong nuclear positivity 10%; Ki-67 proliferative index 1%; BRAF V600E negative (wildtype); H3 K27M negative (wt); H3 K27me3 retained; Luxol fast blue focal mild loss; Neurofilament cocktail with focal decreased axons; GMS negative for fungus; Gram negative for bacteria. FISH for EGFR : The following FISH results were obtained: EGFR: 1.78 CEP7: 2.15 EGFR/CEP7 ratio: 0.83 (Reference Range: Amplified >2.00) INTERPRETATION: Negative for amplification of the EGFR gene. BEATRICE Recommendations: - Admit to EMU for VEEG monitoring, diagnostic evaluation Location: [facility] [place] - Visit with epileptologist prior to admission - Additional testing to be considered by epilepsy clinicians Signed: Nena Smith APRN.CNP December 22, [address] Luong for review and recommendations. MD Recommendations (as discussed with Dr. Luong): - Please start with a long EEG and consultation with an Epileptologist. documented in this encounterCincinnati [facility]08-01-2024 NoteHNO ID: [id number] Author: LIBERTAD SANTIAGO APRN.CNP Service: ? Author Type: Nurse Practitioner Type: Progress Notes Filed: 12/02/2023 17:28 Note Text: [facility] Virtual Visit I have communicated my name and active licensure. The patient's identity and physical location were verified at the time of this visit. Either the patient or their legal promotions representative has been informed of the risks and benefits of -- and alternatives to -- treatment through a remote evaluation and consents to proceed with the evaluation remotely. Consultation is requested by: No referring provider defined for this encounter. PCP: Solis Cool DO ([facility]) [id number] [place] [address] CEREBROVASCULAR HISTORY Josie Landis is a 58 year old right-handed female. She was initially evaluated by Dr. 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 From her note: 06/08/2022 - [facility] with c/o increasing confusion and aphasia. On plavix and ASA d/t current cardiac stenting History obtained by me, above by nurse: -had chest pain and heart cath on May 31, 2022 -felt loopy after her heart cath. She was on a variety of medications and then she noted this happening for several days. She went to her PCP and she was told it was not the medications and she still feel this way - also noted that her speech was slower -when she was driving a few weeks later, she was not driving the way she normally does. Her noted that she wasn't moving the steering wheel at this time and something just wasn't right. She was not fluent in her driving ability with turning the wheel. 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 See prior phone encounter. With this, she was referred to brain tumor, had work up including brain biopsy -brain biopsy not conclusive for gioma. Has more follow up testing with brain tumor -fees like her balance has worsened and since biopsy has more vision issues -is not sleeping well since starting steroids Virtual Visit 12/02/23 -presents for follow up due to seizure she had last Wednesday -reports history of pain/trauma seizures where she doesn't feel good, afterwards she cries -the episode on Wednesday was different, so she's concerned that the lesion in her corpus callosum has changed -they were going to [place], her eyes rolled back, said both her hands/arms got stiff and then started shaking, head fell forward. Afterward she was confused, didn't know where she was or how she got there. She lost control of her bladder. -her next MRI is scheduled for January -no antiseizure medicine, but she takes topamax for bipolar disorder PAST MEDICAL HISTORY 11/02/2022: Asthma due to seasonal allergies 2020: Basal cell carcinoma (BCC) of cheek Comment: left cheek No date: Bipolar affective (HCC) No date: Coronary artery disease 11/02/2022: Coronary artery disease involving wiyot coronary artery of wiyot heart without angina pectoris 11/02/2022: Gastroesophageal reflux disease without esophagitis No date: Hyperlipidemia 11/02/2022: Primary hypertension 11/02/2022: Seizures (HCC) No date: Stroke (HCC) PAST SURGICAL HISTORY No date: CHOLECYSTECTOMY HX 2020: EXCISION AND REPAIR EYELID ONE-FOURTH LID MARGIN; Left Comment: removal of BCC from left cheek No date: LIGATE FALLOPIAN TUBE 05/2022: PAST SURGICAL HISTORY OF Comment: cardiac stent x 1 No date: PAST SURGICAL HISTORY OF Comment: hiatal hernia repair No date: PAST SURGICAL HISTORY OF Comment: partial hysterectomy No date: SHOULDER ARTHROSCOPY/SURGERY; Right Comment: torn rotator cuff No date: TONSILLECTOMY HX 2018: UNLISTED CARDIAC SURG PROCEDURE Comment: cardiac stents x 2 FAMILY HISTORY Problem Relation Age of Onset Cataract Mother Heart Mother heart attack, stents Hypertension Mother Cancer Mother basal cell carcinoma of ear Cataract Father Heart Father stroke Hypertension Father Cancer Father Basal cell cancer Cancer Maternal Grandmother METS and unknown primary site Heart Maternal Grandfather of heart exploded Macular Degen Paternal Grandmother Cataract Paternal Grandmother Cancer Maternal Aunt METS and not sure of primary site Schizophrenia Maternal Aunt Cancer Granddaughter neuroblastoma Anesthesia Problems No Family History Diabetes No Family History Social History Tobacco Use Smoking status: Some Days Packs/day: 0.30 Years: 40.00 Additional pack years: 0.00 Total pack years: 12.00 Types: Cigarettes Smokeless tobacco: Never Tobacco comments: Tryi (more content not included)...[facility]08-01-2024 History of Present illness Narrative* Libertad Santiago APRN.TECHNOLOGY MANAGER - 12/02/2023 3:29 PM EDT [facility] Virtual Visit I have communicated my name and active licensure. The patient's identity and physical location wereverified at the time of this visit. Either the patient or their legal promotions representative has been informed of the risks and benefits of -- and alternatives to -- treatment through a remote evaluation andconsents to proceed with the evaluation remotely. Consultation is requested by: No referring provider defined for this encounter. PCP: Solis Cool DO ([facility]) [id number] [place] [address] CEREBROVASCULAR HISTORY Josie Landis is a 58 year old right-handed female. She was initially evaluated by Dr. 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 From her note: 06/08/2022 - [facility] with c/o increasing confusion and aphasia. On plavix and ASA d/t current cardiac stenting History obtained by me, above by nurse: -had chest pain and heart cath on May 31, 2022 -felt loopy after her heart cath. She was on a variety of medications and then she noted this happening for several days. She went to her PCP and she was told it was not the medications and she stillfeel this way - also noted that her speech was slower -when she was driving a few weeks later, she was not driving the way she normally does. Her husbandnoted that she wasn't moving the steering wheel at this time and something just wasn't right. She was not fluent in her driving ability with turning the wheel. 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 See prior phone encounter. With this, she was referred to brain tumor, had work up including brain biopsy -brain biopsy not conclusive for gioma. Has more follow up testing with brain tumor -fees like her balance has worsened and since biopsy has more vision issues -is not sleeping well since starting steroids Virtual Visit 12/02/23 -presents for follow up due to seizure she had last Wednesday -reports history of pain/trauma seizures where she doesn't feel good, afterwards she cries -the episode on Wednesday was different, so she's concerned that the lesion in her corpus callosum haschanged -they were going to [place], her eyes rolled back, said both her hands/arms got stiff and then started shaking, head fell forward. Afterward she was confused, didn't know where she was orhow she got there. She lost control of her bladder. -her next MRI is scheduled for January -no antiseizure medicine, but she takes topamax for bipolar disorder PAST MEDICAL HISTORY 11/02/2022: Asthma due to seasonal allergies 2020: Basal cell carcinoma (BCC) of cheek Comment: left cheek No date: Bipolar affective (HCC) No date: Coronary artery disease 11/02/2022: Coronary artery disease involving wiyot coronary artery of wiyot heart without angina pectoris 11/02/2022: Gastroesophageal reflux disease without esophagitis No date: Hyperlipidemia 11/02/2022: Primary hypertension 11/02/2022: Seizures (HCC) No date: Stroke (HCC) PAST SURGICAL HISTORY No date: CHOLECYSTECTOMY HX 2020: EXCISION & REPAIR EYELID ONE-FOURTH LID MARGIN; Left Comment: removal of BCC from left cheek No date: LIGATE FALLOPIAN TUBE 05/2022: PAST SURGICAL HISTORY OF Comment: cardiac stent x 1 No date: PAST SURGICAL HISTORY OF Comment: hiatal hernia repair No date: PAST SURGICAL HISTORY OF Comment: partial hysterectomy No date: SHOULDER ARTHROSCOPY/SURGERY; Right Comment: torn rotator cuff No date: TONSILLECTOMY HX 2018: UNLISTED CARDIAC SURG PROCEDURE Comment: cardiac stents x 2 FAMILY HISTORY Problem Relation Age of Onset Cataract Mother Heart Mother heart attack, stents Hypertension Mother Cancer Mother basal cell carcinoma of ear Cataract Father Heart Father stroke Hypertension Father Cancer Father Basal cell cancer Cancer Maternal Grandmother METS and unknown primary site Heart Maternal Grandfather of heart exploded Macular Degen Paternal Grandmother Cataract Paternal Grandmother Cancer Maternal Aunt METS and not sure of primary site Schizophrenia Maternal Aunt Cancer Granddaughter neuroblastoma Anesthesia Problems No Family History Diabetes No Family History Social History Tobacco Use Smoking status: Some Days Packs/day: 0.30 Years: 40.00 Additional pack years: 0.00 Total pack years: 12.00 Types: Cigarettes Smokeless tobacco: Never Tobacco comments: Trying to quit currently Used to smoke a pack per day on average Vaping Use Vaping Use: Some days Substances: Flavoring Devices: Disposable Substance Use Topics Alcohol use: Not Currently Drug use: Never MEDICATIONS Current Outpatient Medications Medication Sig iv contrast (will be provided with radiology test) MRI Brain Inject, intravenously, once for 1 dose.No IV access, insert saline lock prior to beginning of sedation, infusion, injection of imaging exam.Discontinue saline lock post exam. If Pt. has a central line or IVAD, may access for administration according to line specific nursing protocol.Once exam is complete flush line and de-access according to line specific nursing protocol in the MR contrast administration guidelines link lactobacillus combination no.4 (PROBIOTIC) 3 billion cell cap isosorbide mononitrate ER (IMDUR) 30 mg 24 hr tablet Take 1 tablet by mouth every afternoon. aspirin, enteric coated (ASPIRIN, ENTERIC COATED) 81 mg EC tablet Take 1 tablet by mouth every afternoon. albuterol HFA (PROVENTIL HFA, VENTOLIN HFA) 90 mcg/actuation inhaler Inhale as instructed. evolocumab 140 mg/mL subcutaneous pen injector (REPATHA SURECLICK) Inject 140 mg subcutaneously every 2 weeks. ondansetron (ZOFRAN) 8 mg tablet Take 1 tablet by mouth every 8 hours as needed for nausea/vomiting. pantoprazole DR (PROTONIX) 40 mg tablet Take 1 tablet by mouth once daily. acetaminophen (TYLENOL) 325 mg tablet 2 tablets by ORAL/FEEDING TUBE route every 4 hours as needed for pain. senna-docusate (SENNA-S) 8.6-50 mg per tablet 1 tablet by ORAL/FEEDING TUBE route twice daily. hydroCHLOROthiazide 12.5 mg tablet Take 12.5 mg by mouth once daily. buPROPion XL (WELLBUTRIN XL) 300 mg 24 hr tablet Take 300 mg by mouth every morning. clonazePAM (KLONOPIN) 0.5 mg tablet Take 0.5 mg by mouth twice daily as needed for anxiety. traZODone (DESYREL) 100 mg tablet Take 300 mg by mouth daily at bedtime. vilazodone (VIIBRYD) 40 mg tablet Take 40 mg by mouth once daily. losartan (COZAAR) 25 mg tablet Take 25 mg by mouth once daily. metoprolol succinate ER (TOPROL XL) 25 mg 24 hr tablet Take 12.5 mg by mouth once daily. ezetimibe (ZETIA) 10 mg tablet Take 10 mg by mouth once daily. cariprazine (VRAYLAR) 3 mg capsule Take 3 mg by mouth once daily. No current facility-administered medications for this visit. ALLERGIES ALLERGIES Allergen Reactions Budesonide-Formoter* Other: See Comments Aspirin Other: See Comments Latex Other: See Comments Penicillins Other: See Comments Adhesive Tape-Silic* Other: See Comments Budesonide Other: See Comments Formoterol Other: See Comments PHYSICAL EXAMINATION Limited due to VV platform General: Well-developed, well-nourished, in no acute distress. Neurological: Awake, alert, oriented to person, place, and time. Speech fluent, no dysarthria. Goodattention and insight into illness. Cranial Nerves:Extraocular movements intact without nystagmus.Facial movements normal and symmetric. LABS Cholesterol: No results found for: CHOL No results found for: LDL No results found for: HDL No results found for: TG Diabetes: No results found for: HBA1C IMAGING CT brain 11/29/23 IMPRESSION: No acute intracranial abnormality. MRI brain 10/19/23 MPRESSION: Unchanged appearance of the brain compared to most recent MRI performed 07/19/2023 with no new or enlarging lesions identified. No abnormal enhancement. Primary differential considerations include sequelae of nonspecific inflammatory and 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 process with neoplasm considered less likely. MRI brain w/o contrast 06/08 per my review showed faint diffusion restriction in the splenium corpus callosum with some faint ADC hypointensity but this is very faint. More prominent FLAIR change in this area. Some FLAIR changes subcortical in right (2) and left (1) white matter without diffusion restriction. CTA head and neck per my review showed normal cerebrovascular circulation ECHO report showed a PFO but did not quantify size, had normal EF without any intracardiac thrombus Interval imaging MRI brain per radiology 07/23: IMPRESSION: Corpus callosum splenium nonenhancing expansile lesion with internal cystic/necrotic foci, grossly stable compared with 06/08/2022. This is of indeterminate etiology, with considerations including sequela of a 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 process (noting additional patchy foci of signal abnormality in the cerebral white matter) versus other inflammatory, post infectious or cytotoxic process. Note that low-grade neoplasm is not excluded, and continued follow-up is recommended. Patient Entered Questionnaires 06/24/2022 Health Status Impact by Stroke or CVD Impact To a great extent 12/02/2023 11/24/2022 Health Status Change Since Last Visit Change Much worse Minimally worse PROMIS/NeuroQoL Score Percentiles 12/02/2023 11/24/2022 06/24/2022 Physical Health Physical Function Percentile 8 4 16* Sleep Percentile 79 8 21* Fatigue Percentile 3 38 66 Pain Interference Percentile 10 84 38 12/02/2023 11/24/2022 06/24/2022 PROMIS SOCIAL ROLE SCORE Social Role Satisfaction Percentile 16* 31 12 12/02/2023 11/24/2022 06/24/2022 Mental Health NeuroQol Cognitive Function Percentile 1 4 2 General Self-Efficacy Percentile 4 69 88 12/02/2023 06/01/2023 06/24/2022 PROMIS Global Health Scale Physical Health Percentile 15 31 15 Mental Health Percentile 3 3 19* Percentiles provide an indication of how a patient's score ranks in relation to the [place] general population. > 31st percentile is within normal limits or better * < 31st percentile is at least SD worse than population, which may be clinically relevant < 16th percentile is at least 1 SD worse than population and warrants attention Descriptive Summary for PROMIS Physical Function T-score = 36 (Percentile 8) Much difficulty - Carry a laundry basket up a flight of stairs. Some difficulty - Walk at a normal speed. Unable - Walk more than a mile (1.6 km). Depression Screening 12/02/2023 06/01/2023 01/09/2023 PHQ-9 Score 16 17 22 Self-Harm Response Not at all Not at all Not at all PHQ-9 Scores: PHQ-9 Self-Harm (Item 9) Response: 0 - 9 No to Mild depression 0 - Not at all 10 - 14 Moderate depression 1 - Several Days > 15 Severe depression 2 - More than half the days 3 - Nearly every day 06/24/2022 Sleep Apnea Probability Score Probability (%) 20 (Sleep study not recommended) Stroke Mechanism and Scales IMPRESSION Seizure 11/29/23. This event does potentially sound epileptic given bilateral stiffening and shakingof arms, urinary incontinence, post-episode confusion History of nonepileptic seizures Corpus callosum lesion - not cerebrovascular in nature. Following in Brain [facility] PLAN Consult to Epilepsy Continue to follow up with Brain Tumor [facility] No cerebrovascular follow up at this time Medical Decision Making: Medical Decision Making Level: 1 - N/A I spent a total of 36 minutes on the date of service which included preparing to see the patient, [id number] patient care, completing clinical documentation, obtaining and/or reviewing separately obtained history, performing a medically appropriate examination, counseling and educating the patient/family/caregiver, independently interpreting results (not separately reported), communicating results to the patient/family/caregiver, and care coordination (not separately reported) SIGNATURE Libertad Santiago APRN.TECHNOLOGY MANAGER CC No referring provider defined for this encounter. Solis Cool DO ([facility]) [address] [place] [address] documented in this encounterCincinnati [facility]07[facility] Telephone encounter Note * Telephone Encounter - Jennifer Kennedy RN - 11/30/2023 3:50 PM EDT This RN called and spoke to patient. Advised her to schedule urgent appointment with first available virtual visit with any provider post ED visit. Provided number for patient to call and schedule. Patient appreciative of call and expresses intent to comply. Encounter close. Jennifer Kennedy RN November 30, 2023 3:52 PM [facility]07-30-2024 Miscellaneous Notes* Telephone Encounter - Jennifer Kennedy RN - 11/30/2023 3:50 PM EDT This RN called and spoke to patient. Advised her to schedule urgent appointment with first available virtual visit with any provider post ED visit. Provided number for patient to call and schedule. Patient appreciative of call and expresses intent to comply. Encounter close. Jennifer Kennedy RN November 30, 2023 3:52 PM * Telephone Encounter - Pattie Velazquez - 11/29/2023 4:23 PM EDT Patient was seen in [place] ED 11/29/23 for seizure like activity and advised to follow up with neurology. Patient and are requesting follow up appointment with Dr. Lozano, preferable virtually if possible. No openings available with Dr. Lozano within time frame ED is requesting patient follow up. Please advise. Okay to follow up with Dr. Lozano or should patient be seen by differentprovider? documented in this encounterCincinnati [facility]07-29-2024 Telephone encounter Note * Telephone Encounter - Codie Soto MD - 11/29/2023 6:02 PM EDT Summary: Communication with the ED, admit Ciarra Received a call from Jimmie, caregiver at emergency department seen the patient. He tells me, that this is a CT of the head, and all the workup and the exam is unremarkable and they are planning to discharge the patient with follow-up. Recommended, for them to contact neurology, call today, on the case by them. The patient, that this patient has no definite diagnosis from the brain lesion in the corpus callosum splenium, she also had, and some anoxia presumably from the stroke, has cardiac issues as well, so the event that she had, reportedly, as a likely a seizure loss of consciousness with bladder incontinence is worrisome. My take on this event, and that this could have been a seizure, as she had seizures when she was a child, or the neurological event like a stroke, manifested as an event that looks like a seizure or seizure, could have been a cardiac event, so that needs to be elucidated. Hence, my take is that the patient would likely need to be admitted. MRIs of the brain and EEGs, this patient asked me Ciarra does not have the capacity to do all of this, tell the ED caregiver Jimmie, then they may need to transfer the patient as well. Again the above is my take on this patient, but he is going to talk to the neurology on-call, and they will decide what to do for the patient about disposition and I will leave it to them to decide on that. Codie Soto MD [facility]07-29-[facility] Miscellaneous Notes* Telephone Encounter - Codie Qiu MD - 11/29/2023 6:02 PM EDTSummary: Communication with the ED, admit Ciarra Received a call from Jimmie, caregiver at emergency department seen the patient. He tells me, that this is a CT of the head, and all the workup and the exam is unremarkable and they are planning to discharge the patient with follow-up. Recommended, for them to contact neurology, call today, on the case by them. The patient, that this patient has no definite diagnosis from the brain lesion in the corpus callosum splenium, she also had, and some anoxia presumably from the stroke, has cardiac issues as well, so the event that she had, reportedly, as a likely a seizure loss of consciousness with bladder incontinence is worrisome. My take on this event, and that this could have been a seizure, as she had seizures when she was a child, or the neurological event like a stroke, manifested as an event that looks like a seizure or seizure, could have been a cardiac event, so that needs to be elucidated. Hence, my take is that the patient would likely need to be admitted. MRIs of the brain and EEGs, this patient asked me Ciarra does not have the capacity to do all of this, tell the ED caregiver Jimmie, then they may need to transfer the patient as well. Again the above is my take on this patient, but he is going to talk to the neurology on-call, and they will decide what to do for the patient about disposition and I will leave it to them to decide on that. Codie Soto MD documented in this encounterCincinnati [facility]07-29-2024 Telephone encounter Note * Telephone Encounter - Pattie Velazquez - 11/29/2023 4:23 PM EDT Patient was seen in [place] ED 11/29/23 for seizure like activity and advised to follow up with neurology. Patient and are requesting follow up appointment with Dr. Lozano, preferable virtually if possible. No openings available with Dr. Lozano within time frame ED is requesting patient follow up. Please advise. Okay to follow up with Dr. Lozano or should patient be seen by differentprovider? T [facility]07-29-2024 Telephone encounter Note* Telephone Encounter - Tamiko Barcenas RN - 11/29/2023 11:52 AM EDT Call made to patient regarding MyChart message. She states that she had a seizure Wednesday evening around 8:30 PM that was unlike the seizures she has had before. She describes it as first telling her that she doesn't feel good, then she lost consciousness and her eyes rolled into the back ofher head. She also lost bladder control during this event. When she awoke, she was confused and didnot know where she was. She did not take any medication to come out of the seizure, she came out ofit herself. She did take zofran for nausea following this event. She is not on any anti-epileptic drugs at this time. This morning she said she feels fine with no lasting effects. Discussed with Dr. Winnie pozo and his recommendation is to be seen in the ED to rule out any other causes for this seizure like stroke or cardiac event. Relayed this to patient and they have chosen to go to [facility] to be seen. T [facility] Work Phone: [phone] Miscellaneous Notes* Telephone Encounter - Tamiko Barcenas RN - 11/29/2023 11:52 AM EDT Call made to patient regarding MyChart message. She states that she had a seizure Wednesday evening around 8:30 PM that was unlike the seizures she has had before. She describes it as first telling her that she doesn't feel good, then she lost consciousness and her eyes rolled into the back ofher head. She also lost bladder control during this event. When she awoke, she was confused and didnot know where she was. She did not take any medication to come out of the seizure, she came out ofit herself. She did take zofran for nausea following this event. She is not on any anti-epileptic drugs at this time. This morning she said she feels fine with no lasting effects. Discussed with Dr. Winnie pozo and his recommendation is to be seen in the ED to rule out any other causes for this seizure like stroke or cardiac event. Relayed this to patient and they have chosen to go to [facility] to be seen. * Telephone Encounter - David Castano - 11/29/2023 11:12 AM EDT Seizure Call Full Name of Person Calling : Josie Relationship to Patient : Self Contact Date of Seizure(s) : 11/26/2023 Duration : 30 seconds ER Visit : No, didn't want to go to ED w/o speaking with Dr. Bhupendra franklin. History of Seizure : Yes documented in this encounterCincinnati [facility]07-29-2024 Telephone encounter Note * Telephone Encounter - David Castano - 11/29/2023 11:12 AM EDT Seizure Call Full Name of Person Calling : Josie Relationship to Patient : Self Contact Date of Seizure(s) : 11/26/2023 Duration : 30 seconds ER Visit : No, didn't want to go to ED w/o speaking with Dr. Bhupendra franklin. History of Seizure : Yes [facility]06-25-2024 Telephone encounter Note* Telephone Encounter - Tamiko Barcenas RN - 10/26/2023 11:01 AM EDT Scheduling Request - Established Patient Time Frame: week of 01/19/24 Orders: MRI brain ok at satellite Provider: Any neuro onc or BEATRICE - Dr. Huizar out Visit type: Virtual Visit within 1-2 days of MRI Diagnosis: brain lesion [facility] Work Phone: [phone] Miscellaneous Notes* Telephone Encounter - Tamiko Barcenas RN - 10/26/2023 11:01 AM EDT Scheduling Request - Established Patient Time Frame: week of 01/19/24 Orders: MRI brain ok at satellite Provider: Any neuro onc or BEATRICE - Dr. Huizar out Visit type: Virtual Visit within 1-2 days of MRI Diagnosis: brain lesion documented in this encounterCincinnati [facility]06-19-2024 NoteHNO ID: [id number] Author: CODIE SOTO MD Service: ? Author Type: Physician Type: Progress Notes Filed: 10/24/2023 21:22 Note Text: [facility] BRAIN TUMOR C[facility] NEURO-ONCOLOGY VIRTUAL VISIT NOTE This is a virtual visit using HIPAA compliant audio platform. It required patient-provider interaction for the medical decision making as documented below. I have communicated my name and active licensure. The patient's identity and physical location were verified at the time of this visit. 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 The patient is accompanied by her Marciano (2nd ), and her daughter Beena. Subjective History of Present Illness: 57YOF who has CAD, and has had 4 stents, the 1st 2 were done 4 years ago, and the last one was done in May 2022. As a child from [age] yo had seizures and on Mebaral (Methylphenobarbital). Has had no further seizures afterwards. BRAIN LESION HISTORY: May 2022: had chest pain 05/28/2022 had a coronary artery stent On this day 05/28/2022 had the following symptoms: -Something was wrong, as she said she became suddenly dyslexic. -aphasia in the form of word finding difficulty -difficulty reading, she says that whatever she would read she could not understand the witting -she also felt off mentally, meaning somewhat confused. -No define LOC/passing out/nor syncope. -Could not see out of the right side of her peripheral vision 06/08/22, she went to [facility] for the above issues.Admitted for the above. 06/13/20[address] saw Technical Operations Specialist Dr. Heide Duff. Had a Rt Homonymous hemianopsia. 06/24/2022She saw cerebrovascular/stroke neurologist Dr. Pro and did extensive work up for possible CVA. 10/21/22, Dr. Pro based on the MRI from that showed a slight progression of the lesion, with the concern that this is a glioma referred the patient to our [facility] [place] for evaluation. 11/04/22. Dr. Feliz performed a biopsy: The pathology is non diagnostic for a brain tumor, a glioma, which is the concern from the radiological perspective as the lesion has progressed in size slightly. The pathology is reported as: FINAL DIAGNOSIS A. Brain, right corpus callosum lesion, stereotactic biopsy - Minute focus of atypical cells in a reactive background; - See comment. B. Brain, right corpus callosum lesion, stereotactic biopsy - Gliosis with scattered macrophages Diagnosis Comment The biopsy shows focal hypercellularity at one corner (less than 5% of tissue submitted) with atypical angulated elongated nuclei and fibrillary background suspicious for glioma. Unfortunately this area is only present on the frozen section slide and is cut through on the resubmitted tissue. It is not present in any of the other slides/block submitted. The remainder of the specimen shows white matter with scattered foamy macrophages and gliosis. Part B shows white matter with scattered macrophages and gliosis but does not have the atypical area noted in frozen section. Immunohistochemical stains performed to help with classification show the following (B1): CD68 highlights scattered macrophages; IDH1 R132H negative (wt); ATRX retained; p53 strong nuclear positivity 10%; Ki-67 proliferative index 1%; BRAF V600E negative (wildtype); H3 K27M negative (wt); H3 K27me3 retained; Luxol fast blue focal mild loss; Neurofilament cocktail with focal decreased axons; GMS negative for fungus; Gram negative for bacteria. FISH for EGFR reported separately. Slides also reviewed by Drs. Maria Luisa Leonardo and Jesu Narvaez who agree. 11/12/2022 Neuro-Oncology consult OUTPT by Dr Soto:initiated work up. 12/09/2022: Admitted he patient for inpatient expedited work up, under Dr. Lozano neuro plant technical specialist. . Discharged : Had extensive work up include (see notes/full records for details), in brief: -PET scan body/brain NEG -CSF analysis NEG for malignant cells or definite autoimmune process. -CSF NEG for paraneoplastic Ab's. -No infectious process found. July 21, 2023 INTERIM EVENTS Virtual visit - Audio only. The patient is accompanied by daughter. She has no new symptomatology in the neurology clinic systemically. Therapy Status Data Form Past Medical History: PAST MEDICAL HISTORY Diagnosis Date Asthma due to seasonal allergies 11/02/2022 Basal cell carcinoma (BCC) of cheek 2020 left cheek Bipolar affective (HCC) Coronary artery disease Coronary artery disease involving wiyot coronary artery of wiyot heart without angina pectoris (more content not included)...[facility] [facility] History of Present illness Narrative* Codie Soto MD - 10/20/2023 9:03 AM EDT Images from the original note were not included. [facility] NEURO-ONCOLOGY VIRTUAL VISIT NOTE This is a virtual visit using HIPAA compliant audio platform. It required patient-provider interaction for the medical decision making as documented below. I have communicated my name and active licensure. The patient's identity and physical location wereverified at the time of this visit. 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 The patient is accompanied by her Marciano (2nd ), and her daughter Beena. Subjective History of Present Illness: 57YOF who has CAD, and has had 4 stents, the 1st 2 were done 4 years ago, and the last one was done in May 2022. As a child from [age] yo had seizures and on Mebaral (Methylphenobarbital). Has had no further seizures afterwards. BRAIN LESION HISTORY: May 2022: had chest pain 05/28/2022 had a coronary artery stent On this day 05/28/2022 had the following symptoms: -Something was wrong, as she said she became suddenly dyslexic. -aphasia in the form of word finding difficulty -difficulty reading, she says that whatever she would read she could not understand the witting -she also felt off mentally, meaning somewhat confused. -No define LOC/passing out/nor syncope. -Could not see out of the right side of her peripheral vision 06/08/22, she went to [facility] for the above issues.Admitted for the above. 06/13/[address] Technical Operations Specialist Dr. Heide Duff. Had a Rt Homonymous hemianopsia. 06/24/2022She saw cerebrovascular/stroke neurologist Dr. Pro and did extensive work up for possible CVA. 10/21/22, Dr. Pro based on the MRI from that showed a slight progression of thelesion, with the concern that this is a glioma referred the patient to our [facility] [place] for evaluation. 11/04/22. Dr. Feliz performed a biopsy: The pathology is non diagnostic for a brain tumor, a glioma, which is the concern from the radiological perspective as the lesion has progressed in size slightly. The pathology is reported as: FINAL DIAGNOSIS A. Brain, right corpus callosum lesion, stereotactic biopsy - Minute focus of atypical cells in a reactive background; - See comment. B. Brain, right corpus callosum lesion, stereotactic biopsy - Gliosis with scattered macrophages Diagnosis Comment The biopsy shows focal hypercellularity at one corner (less than 5% of tissue submitted) with atypical angulated elongated nuclei and fibrillary background suspicious for glioma. Unfortunately this area is only present on the frozen section slide and is cut through on the resubmitted tissue. It is not present in any of the other slides/block submitted. The remainder of the specimen shows white matter with scattered foamy macrophages and gliosis. Part B shows white matter with scattered macrophages and gliosis but does not have the atypical area noted in frozen section. Immunohistochemical stains performed to help with classification show thefollowing (B1): CD68 highlights scattered macrophages; IDH1 R132H negative (wt); ATRX retained; p53 strong nuclear positivity 10%; Ki-67 proliferative index 1%; BRAF V600E negative (wildtype); H3 K27M negative (wt); H3 K27me3 retained; Luxol fast blue focal mild loss; Neurofilament cocktail with focal decreased axons; GMS negative for fungus; Gram negative for bacteria. FISH for EGFR reported separately. Slides also reviewed by Drs. Maria Luisa Leonardo and Jesu Narvaez who agree. 11/12/2022 Neuro-Oncology consult OUTPT by Dr Soto:initiated work up. 12/09/2022: Admitted he patient for inpatient expedited work up, under Dr. Lozano neuro plant technical specialist. . Discharged : Had extensive work up include (see notes/full records for details), in brief: -PET scan body/brain NEG -CSF analysis NEG for malignant cells or definite autoimmune process. -CSF NEG for paraneoplastic Ab's. -No infectious process found. July 21, 2023 INTERIM EVENTS Virtual visit - Audio only. The patient is accompanied by daughter. She has no new symptomatology in the neurology clinic systemically. Therapy Status Data Form Past Medical History: PAST MEDICAL HISTORY Diagnosis Date Asthma due to seasonal allergies 11/02/2022 Basal cell carcinoma (BCC) of cheek 2020 left cheek Bipolar affective (HCC) Coronary artery disease Coronary artery disease involving wiyot coronary artery of wiyot heart without angina pectoris 11/02/2022 Gastroesophageal reflux disease without esophagitis 11/02/2022 Hyperlipidemia Primary hypertension 11/02/2022 Seizures (HCC) 11/02/2022 Stroke (HCC) As a child from [age] yo had seizures and on Mebaral (Methylphenobarbital). Has had no further seizures afterwards. Past Surgical History: PAST SURGICAL HISTORY Procedure Laterality Date CHOLECYSTECTOMY HX EXCISION & REPAIR EYELID ONE-FOURTH LID MARGIN Left 2020 removal of BCC from left cheek LIGATE FALLOPIAN TUBE PAST SURGICAL HISTORY OF 05/2022 cardiac stent x 1 PAST SURGICAL HISTORY OF hiatal hernia repair PAST SURGICAL HISTORY OF partial hysterectomy SHOULDER ARTHROSCOPY/SURGERY Right torn rotator cuff TONSILLECTOMY HX UNLISTED CARDIAC SURG PROCEDURE 2018 cardiac stents x 2 Family History: FAMILY HISTORY Problem Relation Age of Onset Cataract Mother Heart Mother heart attack, stents Hypertension Mother Cancer Mother basal cell carcinoma of ear Cataract Father Heart Father stroke Hypertension Father Cancer Father Basal cell cancer Cancer Maternal Grandmother METS and unknown primary site Heart Maternal Grandfather of heart exploded Macular Degen Paternal Grandmother Cataract Paternal Grandmother Cancer Maternal Aunt METS and not sure of primary site Schizophrenia Maternal Aunt Cancer Granddaughter neuroblastoma Anesthesia Problems No Family History Diabetes No Family History No family H/O neurological conditions No H/O brain tumors in family No H/O 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 diseases in the family She has 2 biological daughters who are healthy. Social History Tobacco Use Smoking status: Some Days Packs/day: 0.30 Years: 40.00 Additional pack years: 0.00 Total pack years: 12.00 Types: Cigarettes Smokeless tobacco: Never Tobacco comments: Trying to quit currently Used to smoke a pack per day on average Vaping Use Vaping Use: Some days Substances: Flavoring Devices: Disposable Substance Use Topics Alcohol use: Not Currently Drug use: Never Allergies: Budesonide-Formoterol, Aspirin, Latex, Penicillins, Adhesive Tape-Silicones, Budesonide, and Formoterol Current Outpatient Medications Medication Sig lactobacillus combination no.4 (PROBIOTIC) 3 billion cell cap isosorbide mononitrate ER (IMDUR) 30 mg 24 hr tablet Take 1 tablet by mouth every afternoon. aspirin, enteric coated (ASPIRIN, ENTERIC COATED) 81 mg EC tablet Take 1 tablet by mouth every afternoon. albuterol HFA (PROVENTIL HFA, VENTOLIN HFA) 90 mcg/actuation inhaler Inhale as instructed. evolocumab 140 mg/mL subcutaneous pen injector (REPATHA SURECLICK) Inject 140 mg subcutaneously every 2 weeks. ondansetron (ZOFRAN) 8 mg tablet Take 1 tablet by mouth every 8 hours as needed for nausea/vomiting. pantoprazole DR (PROTONIX) 40 mg tablet Take 1 tablet by mouth once daily. acetaminophen (TYLENOL) 325 mg tablet 2 tablets by ORAL/FEEDING TUBE route every 4 hours as needed for pain. senna-docusate (SENNA-S) 8.6-50 mg per tablet 1 tablet by ORAL/FEEDING TUBE route twice daily. hydroCHLOROthiazide 12.5 mg tablet Take 12.5 mg by mouth once daily. buPROPion XL (WELLBUTRIN XL) 300 mg 24 hr tablet Take 300 mg by mouth every morning. clonazePAM (KLONOPIN) 0.5 mg tablet Take 0.5 mg by mouth twice daily as needed for anxiety. traZODone (DESYREL) 100 mg tablet Take 300 mg by mouth daily at bedtime. vilazodone (VIIBRYD) 40 mg tablet Take 40 mg by mouth once daily. losartan (COZAAR) 25 mg tablet Take 25 mg by mouth once daily. metoprolol succinate ER (TOPROL XL) 25 mg 24 hr tablet Take 12.5 mg by mouth once daily. ezetimibe (ZETIA) 10 mg tablet Take 10 mg by mouth once daily. cariprazine (VRAYLAR) 3 mg capsule Take 3 mg by mouth once daily. No current facility-administered medications for this visit. Review of systems: Constitutional: No recent fever or weight loss. Eyes: No history of glaucoma or cataracts. ENMT: No recent ear infection, nasal congestion, mouth sores or sore throat. CV: No history of chest pain, palpitations or leg swelling. Respiratory: No history of SOB, asthma or recent cough. Gastrointestinal: No history of nausea, vomiting, dysphagia or abdominal pain. Genitourinary: No history of hematuria or dysuria. Musculoskeletal: No complaint of arthritis, unstable gait or arm/leg weakness. Psychiatric: No history of hallucinations or depression or anxiety. ROS Neurological: No complaint of headache. No complaint of tinnitus. No complaint of decreased hearing. No complaint of diplopia. No complaints of decreased visual acuity. No complaint of arm/leg numbness. No problem with limb coordination. No complaint of syncope, seizures or disorientation. Objective Physical Exam: There were no vitals taken for this visit. This is a virtual exam based on observational as below: No vital signs. NEURO: on observation, CN intact (patient had a visual field deficit - see notes of in person encounters), no pronator drift, no tremor noted, self reported and/or on observation moves extremities equally, no self-reported sensory deficits and ambulating without difficulty. Karnofsky performance status: 80 - Normal activity with effort, some signs or symptoms of disease. ECOG performance status: 1 - Restricted in physically strenuous activity but ambulatory and able tocarry out work of a light or sedentary nature, e.g., light house work or office work. 06/01/2023 PHQ 2 and 9 Total Scores PHQ-2 Score 3 PHQ-9 Score 17 Labs: Latest Ref Rng & Units 12/12/2022 12/14/2022 12/15/2022 CBC WBC 3.70 - 11.00 k/uL 3.68 3.88 4.74 RBC 3.90 - 5.20 m/uL 4.64 4.40 4.28 Hemoglobin 11.5 - 15.5 g/dL 13.0 12.5 12.2 Hematocrit 36.0 - 46.0 % 39.7 38.1 37.2 MCV 80.0 - 100.0 fL 85.6 86.6 86.9 MCH 26.0 - 34.0 pg 28.0 28.4 28.5 MCHC 30.5 - 36.0 g/dL 32.7 32.8 32.8 RDW-CV 11.5 - 15.0 % 13.9 14.0 14.1 Platelet Count 150 - 400 k/uL 179 180 179 MPV 9.0 - 12.7 fL 9.3 8.7 9.0 Latest Ref Rng & Units 03/30/2023 06/01/2023 06/18/2023 CMP Glucose 74 - 99 mg/dL 91 Protein, Total 6.3 - 8.0 g/dL 6.1 Albumin, Serum 3,900 - 4,900 mg/dL 3,900 Final Pathology: SURGICAL PATHOLOGY: [id number] Order: [id number] Collected 11/04/2022 11:13 AM Status: Final result Visible to patient: No (scheduled for 11/14/2022 1:09 PM) Dx: Glioma (HCC) 0 Result Notes Component FINAL DIAGNOSIS A. Brain, right corpus callosum lesion, stereotactic biopsy - Minute focus of atypical cells in a reactive background; - See comment. B. Brain, right corpus callosum lesion, stereotactic biopsy - Gliosis with scattered macrophages. Diagnosis Comment The biopsy shows focal hypercellularity at one corner (less than 5% of tissue submitted) with atypical angulated elongated nuclei and fibrillary background suspicious for glioma. Unfortunately this area is only present on the frozen section slide and is cut through on the resubmitted tissue. It is not present in any of the other slides/block submitted. The remainder of the specimen shows white matter with scattered foamy macrophages and gliosis. Part B shows white matter with scattered macrophages and gliosis but does not have the atypical area noted in frozen section. Immunohistochemical stains performed to help with classification show thefollowing (B1): CD68 highlights scattered macrophages; IDH1 R132H negative (wt); ATRX retained; p53 strong nuclear positivity 10%; Ki-67 proliferative index 1%; BRAF V600E negative (wildtype); H3 K27M negative (wt); H3 K27me3 retained; Luxol fast blue focal mild loss; Neurofilament cocktail with focal decreased axons; GMS negative for fungus; Gram negative for bacteria. FISH for EGFR reported separately. Slides also reviewed by Drs. Maria Luisa Leonardo and Jesu Narvaez who agree. Laboratory Developed Test (LDT) Disclaimer: Performance characteristics of immunohistochemical, immunofluorescent and chromogenic in-situ hybridization tests have been determined by the performing laboratory within [facility] s [facility] [place] ([facility], [facility], [facility], [facility], [facility], or [facility]) in a manner consistent with CLIA requirements. One or more of these tests have not been cleared or approved by the FDA. [facility] is regulated under CLIA as qualified to perform high-complexity testing. These tests are used for clinical purposes. They should not be regarded as investigational or for research. Positive and negative controls stain appropriately. Gross Description A. BRAIN BIOPSY Received fresh for intraoperative evaluation labeled as right corpus callosum lesion is a whitishoval piece of tissue measuring 5 x 4 x 0.2 cm. Half of the tissue is submitted for frozen section evaluation in FSA 1. The rest of the tissue is submitted for permanent in A2. Gross examination performed at [address] 11/04/2022 B. BRAIN BIOPSY Received fresh labeled right corpus callosum lesion are multiple fragments of white-goodson tissue aggregating to 0.6 x 0.5 x 0.2 cm. The specimen is submitted entirely in cassette B1. Gross [place] [address] JXM/DANIELE 11/04/22 12:21 PM Intraoperative Diagnosis A. 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 (Dr. Narvaez). Intraoperative diagnosis performed at [facility], [address] [place], [place] [id number] 11/04/2022 Clinical History Pre-op diagnosis: Glioma (HCC) [C71.9] Performing Lab Diagnostic interpretation performed at [facility], [address] [place] [address] CLIA# [id number] Dross Skimmer: Jasen Rivera M.D. Resulting Agency [facility] Specimen Collected: 11/04/22 11:13 AM EDT Last Resulted: 11/09/22 1:09 PM EDT Order Details View Encounter Lab and Collection Details Routing Result History View All Conversations on this Encounter Scans on Order [id number] Document on 11/09/2022 1:09 PM by Anusha Thomas MD Result Care Coordination Patient Communication 11/14/2022 1:09 PM Release Now Not seen Back to Top FISH FOR EGFR: [id number] Order: [id number] - Reflex for Order [id number] Collected 11/04/2022 11:22 AM Status: Final result Visible to patient: Yes (seen) Dx: Glioma (HCC) 0 Result Notes Component FISH FOR EGFR FISH for EGFR Laboratory Accession Number: [id number] Case: [id number] Block: B1 Sample Type: FFPET Sample Description: BRAIN BIOPSY, RIGHT CORPUS CALLOSUM LESION Received Date: 11/06/2022 RESULTS: EGFR NOT AMPLIFIED Number of nuclei scored: 40 INTERPRETATION: Negative for amplification of the EGFR gene. Clinical and pathological correlation is recommended. The following FISH results were obtained: EGFR: 1.78 CEP7: 2.15 EGFR/CEP7 ratio: 0.83 (Reference Range: Amplified >2.00) COMMENT: A combination of genetic signature and histology stratifies lower- grade gliomas better than histology alone. IDH-wildtype infiltrating or diffuse astrocytomas with EGFR amplification are predicted to follow an aggressive clinical course resembling that of IDH-wildtype glioblastoma. Reference: Néstor JACOME et al. cIMPACT-NOW update 3: recommended diagnostic criteria for Diffuse astrocytic glioma, IDH- wildtype, with molecular features of glioblastoma, WHO grade IV. Acta Neuropathol. 2018 Nov;136(5):805-810. METHODOLOGY: Amplification of the Epidermal Growth Factor Receptor (EGFR) gene was evaluated with interphase fluorescence in situ hybridization (FISH) on formalin-fixed paraffin embedded tissue sections using the LSI EGFR (7p11.2) and chromosome 7 centromere (CEP 7) probes ([employer], [place], [place]). The slides were scored manually. LIMITATIONS: This test will not identify all rearrangements involving EGFR. Rare, cryptic abnormalities may be below the resolution of the assay, or may otherwise be undetected. Specimen size, quality or representativeness can affect the quality of the result. This assay has been validated for tissues fixed with 10% neutral buffered formalin. Decalcification agents and fixation agents containing heavy metals, e.g. B5, or harsh acid or base components (e.g. Bouin's solution) can adversely impact assay performance. DISCLAIMER: This test was developed and its performance characteristics determined by the [facility]'s [facility] [place] ([facility]). It has not been cleared or approved by the FDA. [facility] is regulated under CLIA as qualified to perform high- complexity testing. This test is used for clinical purposes. It should not be regarded as investigational or for research. Interpretation performed at [facility], [address] [place] [address]. CLIA Number: [id number] As reviewed by Mayra Louis MD, PhD Resulting Agency [facility] Specimen Collected: 11/04/22 11:22 AM EDT Last Resulted: 11/09/22 3:26 PM EDT Order Details View Encounter Lab and Collection Details Routing Result History View All Conversations on this Encounter Result Care Coordination Patient Communication Add Comments Seen Back to Top Specimen Collection Information ID Source Type Collected By Time Frozen A BRAIN BIOPSY Tissue Carlos Jovel MD 11/04/22 1113 Yes Description: right corpus callosum lesion B BRAIN BIOPSY Tissue Carlos Jovel MD 11/04/22 1122 No Description: right corpus callosum lesion Additional Information Diagnosis codes: Glioma (HCC) [C71.9] Comments: Pre-op diagnosis: Glioma (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 Routing History Priority Sent On From To Message Type 11/09/2022 3:26 PM Lab, Background User Anusha Thomas MD Results 11/09/2022 1:09 PM Lab, Background User Carlos Jovel MD Results 11/09/2022 1:09 PM Lab, Background User Triston uGy MD Results View Smartlink Info SURGICAL PATHOLOGY (Order #[id number]) on 11/04/22 CAP/CLIA/Joint Commission Regulatory Result Report SURGICAL PATHOLOGY (Order #[id number]) on 11/04/22 SURGICAL PATHOLOGY: Patient Communication 11/14/2022 1:09 PM Release Now Not seen Imaging: Results MRI BRAIN WO/W IVCON (Acc#[id number]) (Order [id number]) Patient Info Patient Name Sex Josie Santos ([id number]) Female 1965 10/19/2023 10:34 AM - Radiology, [place] In Impression IMPRESSION: Unchanged appearance of the brain compared to most recent MRI performed 07/19/2023 with no new or enlarging lesions identified. No abnormal enhancement. Primary differential considerations include sequelae of nonspecific inflammatory and 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 process with neoplasm considered less likely. Tanscriptionist: RHIANNON Transcribe Date/Time: Oct 19 2023 10:20A Dictated by : MAKAYLA MARQUEZ MD This examination was interpreted and the report reviewed and electronically signed by: MAKAYLA MARQUEZ MD on Oct 19 2023 10:32AM EST Assessment & Plan Mrs. Landis is a 58 YO RHF who presents back at the end of May 2022, with acute, language dysfunction, visual field deficit and likely alexia, which occur on the day of a cardiovascular procedure, coronary artery stent placement with a brain MRI that reveals a splenium of the corpus callosum abnormality. A follow up MRI 09/25/22 revealed that the SCC lesion has slightly progressed in size.Her stroke neurologist Dr. Pro felt that this does not fit with a stroke and because the neuroradiology reading suggest that this could be a glioma, she referred the patient to our [facility] [place] for evaluation, On 11/02/22, she had a biopsy by Dr. Jovel, neurosurgeon at the [facility]. The pathology is basically non diagnostic. Has had extensive work up with no definite diagnosis. Current plan: surveillance only. Symptomatically the patient remains with some language dysfunction, mainly word finding difficulty,right visual field deficit, and likely alexia. PLAN: 1-Splenium of the corpus callosum lesion, etiology unclear: S/P biopsy with non diagnostic pathology. Work up so far unremarkable. Plan to do an MRI of the brain w and w/o + perfusion in 3 month's time. -Follow up in my neuro-oncology clinic 1-2 days after the MRI. Virtual visit Ok. -If the lesion were to change, and or patient develops symptom, that may be related to the lesion, she may need a 2nd biopsy. The patient to consider a 2nd opinion at a large academic institution, preferably, as above noted. 2-Lumbar MRI 02/18/23 reported as: Mild enhancement of the RIGHT S1 nerve root, not significantly changed in appearance from 12/09/2022, with new mild enhancement of the RIGHT S2 nerve root. Previously queried equivocal enhancement of the LEFT S1 nerve root is no longer definitively seen. The significance of the above is unclear, whether this signifies progression of an entity still of unclear etiology, is not known for now. -As above noted, a repeat lumbar puncture for cytology is warranted. I proposed a 2nd, if NEG a 3rdLP I recommend. As the 2nd, and 3rd LP increased the yield to identify malignant cells. As noted above, lumbar puncture was done on June 2023, with t unremarkable, or negative results, particularly, negative cytology. The repeated lumbar spine MRI w and w/o from June 2023, reveals no abnormal enhancement, and itis unclear whether that enhancement resolved or whether it was only an artifact all along. For now, we will continue watching the patient clinically only and I do not believe she requires any further spine images from my perspective. 3-Paresthesias of arms/hands. Resolved. -04/19/23 MRI C-spine w and w/o thoracic spine MR w and w/o contrast, NEG -MRI of the lumbar spine from June 2023, is also negative for any enhancement or changes to just drop metastases -Continue clinical surveillance The patient/family was advised to call if symptoms worsen and she may need to be evaluated sooner, or go to the ED. She has been enrolled, and the physical therapy program for her leg pain. Dr. Lozano has ordered electrophysiological evaluation supportive leg paresthesias. 4-Follow up with neuroimmunology: With Dr. Lozano. 5-Referral to Neuro ID for opinion whether the SCC lesion is of infectious etiology, i.e., indolentprocess, and recommendations on further work up. The patient has been seen by the neuro infectious diseases with Dr. Pinedo. 6-Referral to neuro-ophthalmology: Was seen by neuro-ophthalmology 12/15/22. 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 To follow up with neuro-ophthalmology. 7-Follow with Dr. Pro from cerebrovascular/stroke neurology. 8-Follow with her project control manager for her CAD, S/p coronary artery stents. 9-Follow with her PCP for general medical care/coordination of care, Dr. Cool. 10-Not to drive a car or any other motorized vehicle, and not to engage in activities that could place her at risk to her and or others of injury is she were to have episodes of confusion. 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 For now, as she had episodes ofconduction which have not been clarified yet, also she has a visual field deficit on the right. Herdriving privileges to be resumed depending on her progress/entities found. 11- CT chest:11/25/22: 1. No suspicious primary lung malignancy noted. 2. Few scattered small pulmonary nodules measuring less than 5 mm. Comments: If there are risk factors for lung malignancy, a follow-up chest CT exam could be obtained in 12 months NOTE: the patient has risk factor for lung CA she has been smoking tobacco for many yeas. -CT chest/abdomen and pelvis w and w/o contrast No metastatic disease in the abdomen and pelvis. 12/14/22 PET scan: No hypermetabolic lesions seen. PCP to do follow up CT chest, in 6-12 months time ( from the CT done on 11/25/2022). Th note CC toPC Dr. Cool. 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 Based on her duties, I think Mrs. Landis, would not be able to complete the task she reports she needs to do for her job. She says she will be filing for disability, and we will support that. She should also seek help from her PCP. In the end the patient and family verbalized understanding of the above, they had questions which Madhavi I answered to their satisfaction and agreed with these recommendations and had no further questions or concerns for the moment, but I encourage them to call the [facility] with any questions or concerns. I spent a total of 30 minutes on the date of the service which included preparing to see the patient, at least 50% of [id number] patient care, completing clinical documentation, obtaining and/or reviewing separately obtained history, performing a medically appropriate examination, counseling and educating the patient/family/caregiver, ordering medications, tests, or procedures, communicating with other HCPs (not separately reported), independently interpreting results (not separately reported), communicating results to the patient/family/caregiver and care coordination (not separately reported). This is a high MDM. Codie Soto MD Staff Neuro-Oncologist [facility] [place], [place] CC: CC -Carlos Jovel MD, Neurosurgery, [facility], [facility], [facility] CC: Rad Pro DO, Vascular Neurology, [facility] CC: Dr. Solis Cool, , PCP, [address] [place] [address] [address], [facility] [id number], ; -Triston Lozano MD, Neurology/Neuroimmunology, [facility] -David Rios MD, Neuro-ophthalmology, [facility] -Americo Haney DO, Infectious Disease, [facility] -Rich Gudino MD, Neuro-Immunology, Neurology, [facility] -Berto Albarado MD, Neuro-Immunology, Neurology, [facility] -Jim Pinedo MD, Neuro Infectious Diseases, [facility] documented in this encounterCincinnati [facility] History of Present illness Narrative* David Justice RT(R) - 10/19/2023 9:20 AM EDT Radiology Service Progress Note DATE OF SERVICE: October 19, 2023 TIME: 9:39 AM PATIENT IDENTITY VERIFICATION COMPLETED USING TWO (2) STANDARD IDENTIFIERS: Name and Date of confirmed by patient verbally. FALL SCREENING: Has the patient had 2 falls in the last year or 1 fall with injury or currently using an Ambulatory Assistive Device (Walker, Cane, Wheelchair, Crutches, etc.)? No PATIENT GENDER DATA: Female. status: : No status: NO. PATIENT RELEVANT IMPLANT DATA REVIEWED: Yes PATIENT PRESENTS WITH AN IMPLANTABLE OR ATTACHED GRILL ASSOCIATE: No ALLERGIES: Reviewed and unchanged CONTRAST ALLERGY: NO. EXAM: MRI - CONTRAST TYPE: GROUP II PERIPHERAL IV DATA: Ambulatory: A peripheral IV was started in the Left upper extremity with a Angio cath: 20 gauge. RADIOLOGY DEPARTMENT: MR; Exam(s) Completed: Head: Routine Brain with Perfusion SIGNATURE: RT Hayden(R) PATIENT NAME: Josie Landis DATE: October 19, 2023 TIME: 9:39 AM documented in this encounterCincinnati [facility]06-18-2024 Miscellaneous Notes* Result Encounter Note - Codie Soto MD - 10/19/2023 9:20 AM EDT I have reviewed this test results, Oct 19 2023 MRI BRAIN WO/W IVCON and I will go over the results with the patient at the upcoming appointment. Codie Soto MD documented in this encounterCincinnati [facility]06-18-2024 NoteHNO ID: [id number] Author: DAVID JUSTICE RT(R) Service: ? Author Type: Technologist Type: Progress Notes Filed: 10/19/2023 09:39 Note Text: Radiology Service Progress Note DATE OF SERVICE: October 19, 2023 TIME: 9:39 AM PATIENT IDENTITY VERIFICATION COMPLETED USING TWO (2) STANDARD IDENTIFIERS: Name and Date of confirmed by patient verbally. FALL SCREENING: Has the patient had 2 falls in the last year or 1 fall with injury or currently using an Ambulatory Assistive Device (Walker, Cane, Wheelchair, Crutches, etc.)? No PATIENT GENDER DATA: Female. status: : No status: NO. PATIENT RELEVANT IMPLANT DATA REVIEWED: Yes PATIENT PRESENTS WITH AN IMPLANTABLE OR ATTACHED GRILL ASSOCIATE: No ALLERGIES: Reviewed and unchanged CONTRAST ALLERGY: NO. EXAM: MRI - CONTRAST TYPE: GROUP II PERIPHERAL IV DATA: Ambulatory: A peripheral IV was started in the Left upper extremity with a Angio cath: 20 gauge. RADIOLOGY DEPARTMENT: MR; Exam(s) Completed: Head: Routine Brain with Perfusion SIGNATURE: RT Hayden(R) PATIENT NAME: Josie Landis DATE: October 19, 2023 TIME: 9:39 [facility]06-18-2024 Progress note* Result Encounter Note - Codie Soto MD - 10/19/2023 9:20 AM EDT I have reviewed this test results, Oct 19 2023 MRI BRAIN WO/W IVCON and I will go over the results with the patient at the upcoming appointment. Codie Soto MD [facility] Work Phone: [phone]) 522-749003-20-2024 History of Present illness Narrative* Codie Soto MD - 07/21/2023 4:42 PM EDT Images from the original note were not included. [facility] NEURO-ONCOLOGY VIRTUAL VISIT NOTE This is a virtual visit using HIPAA compliant audio platform. It required patient-provider interaction for the medical decision making as documented below. I have communicated my name and active licensure. The patient's identity and physical location wereverified at the time of this visit. 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 The patient is accompanied by her Marciano (2nd ), and her daughter Beena. Subjective History of Present Illness: 57YOF who has CAD, and has had 4 stents, the 1st 2 were done 4 years ago, and the last one was done in May 2022. On the day of the last coronary artery stent, she had a sudden sensation that something was wrong, as she said she became suddenly dyslexic. On further questioning, she was having what appears to have aphasia in the form of word finding difficulty, as well difficulty reading, she says that whatever she would read she could not understand the witting, and she also felt off mentally, meaning somewhat confused. No define LOC/passing out/nor syncope. Another symptom she noted is that she cannot see out of the right side of her peripheral vision,a dthis has continued like that. She saw her eye doctor she said and is the one who noticed also the visual field deficit ( I do nothave those records for my review). On 06/08/22, she sima to [facility] for the above issues. She saw cerebrovascular/stroke neurologist Dr. Pro and did extensive work up for possible CVA. On 10/21/22, Dr. Pro based on the MRI from that showed alight progression of the lesion, with the concern that this is a glioma referred the patient to our [facility] [place] for evaluation. Dr. Feliz performed a biopsy on 11/04/22. The pathology is non diagnostic for a brain tumor, a glioma, which is the concern from the radiological perspective as the lesion has progressed in size slightly. The pathology is reported as: FINAL DIAGNOSIS A. Brain, right corpus callosum lesion, stereotactic biopsy - Minute focus of atypical cells in a reactive background; - See comment. B. Brain, right corpus callosum lesion, stereotactic biopsy - Gliosis with scattered macrophages Diagnosis Comment The biopsy shows focal hypercellularity at one corner (less than 5% of tissue submitted) with atypical angulated elongated nuclei and fibrillary background suspicious for glioma. Unfortunately this area is only present on the frozen section slide and is cut through on the resubmitted tissue. It is not present in any of the other slides/block submitted. The remainder of the specimen shows white matter with scattered foamy macrophages and gliosis. Part B shows white matter with scattered macrophages and gliosis but does not have the atypical area noted in frozen section. Immunohistochemical stains performed to help with classification show thefollowing (B1): CD68 highlights scattered macrophages; IDH1 R132H negative (wt); ATRX retained; p53 strong nuclear positivity 10%; Ki-67 proliferative index 1%; BRAF V600E negative (wildtype); H3 K27M negative (wt); H3 K27me3 retained; Luxol fast blue focal mild loss; Neurofilament cocktail with focal decreased axons; GMS negative for fungus; Gram negative for bacteria. FISH for EGFR reported separately. Slides also reviewed by Drs. Maria Luisa Leonardo and Jesu Narvaez who agree. As of today, she has persistent, difficulty both findings work, she still has the visual field deficit, which has extended to the lower quadrant as the initial report was that she had a right superior quadrantanopia. Also, she still feels foggy, meaning not very sharp mentally, yet she is still able to perform her ADL's. She is also having poor sleep. She says that she has been taking a multivitamin for many years, and she stopped them the week prior to the last stents, as per doctors' advice. No weight lost. No change in diet No new medications No similar history of the above No known neurological issue/diseases. She reports that she has bipolar disorder. Heide Dumont RN at 11/12/2022 7:44 AM Patient is a 57 y/o female from [place], [place] with PMH CAD (s/p stent placement- on ASA and Plavix), HTN, Asthma Reason for consult: brain lesion Surgery: 11/04/22- Right sided brain biopsy of corpus callosum lesion Pathology: Minute focus of atypical cells in a reactive background; Gliosis with scattered macrophages. EGFR NOT AMPLIFIED CD68 highlights scattered macrophages; IDH1 R132H negative (wt); ATRX retained; p53 strong nuclear positivity 10%; Ki-67 proliferative index 1%; BRAF V600E negative (wildtype); H3 K27M negative (wt); H3 K27me3 retained; Luxol fast blue focal mild loss; Neurofilament cocktail with focal decreased axons; GMS negative for fungus; Gram negative for bacteria. Neurosurgeon Dr Jovel Radiation oncologist: None Cardiovascular neurology_ Dr Pro AED: None Steroids: Decadron 2mg tablet- tapers to 2mg to twice daily without further instructions Treatment: none Pertinent History: per epic review 57 y/o female admitted to [facility] due to confusion and aphasia on 06/08/22. Recent coronary stent placement and stroke work up included CT and MRI Brain which revealed a faint diffusion restriction in the splenium corpus callosum. More prominent FLAIR change in this area. Some FLAIR changes s ubcortical in right (2) and left (1) white matter without diffusion restriction. She was dischargedhome and a repeated MRI on 07/03/22 showed a corpus callosum splenium nonenhancing expansile lesionwith internal cystic/necrotic foci, grossly stable compared with 06/08/2022 She was seen by vascular neurology- Dr Pro on 08/25/22- fper her notes- elt off since June. noted some changes in her speech and driving. 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 Review of CTA head ->normal cerebrovascular circulation. ECHO - No PFO PLan for repeat MRI , [facility]. Repeat MRI done 09/25/22 showed progression of lesion and she was seen by Dr Jovel on 10/27/22 Ather visit she was still having difficulty reading/writing, balance issues, recall issues and had lost peripheral vision on the Right. She was unable to work or drive. Recommendations made for brain bi opsy s/p 11/04/22- Right sided brain biopsy of corpus callosum lesion MRi Brain 09/25/22 Infiltrative process in the splenium the corpus callosum which, in view of the slight interval progression since the prior studies, would be worrisome for a glioma. MRi Brain 07/03/22 Corpus callosum splenium nonenhancing expansile lesion with internal cystic/necrotic foci, grossly stable compared with 06/08/2022. This is of indeterminate etiology, with considerations including sequela of a 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 process (noting additional patchy foci of signal abnormality in the cerebral white matter) versus other inflammatory, post infectious or cytotoxic process. Note that low-grade neoplasm is not excluded, and continued follow-up is recommended. Heide Dumont, RN, BSN [facility] 11/17/2022 INTERIM EVENTS No new symptoms She is joseph to go oveer the Brain tumor Board recommendations. 12/09/2022: INTERIM EVENTS. She is here to go over the MRI of the brain done on 12/07/22, and CT chest/abd/pelvis. The patient is accompanied by her Marciano (2nd ), and her daughter Beena. -issues worsening,gait difficulty, memory and vision. Although her repeat MRI from 12/07/22, shows no change, it is concerning that her symptoms are worsening, with no definite answer. I think that in order to expedite the planned work up and hopefully to get an answer for the patient, I think admitting the patient is what I would recommend. I spoke with Dr. Triston Lozano, neurology staff for primary neurology service, and discussed patient's case. Dr. Lozano, agreed that the patient requires admission to neurology to expedite work up and to elucidate any pathology that may require rather rapid intervention. I explained the above to the patient and family and they agreed. I called admissions, and the patient will be admitted under Dr. Lozano, who has accepted the patient. In addition to the work up and consults as noted below, further work up as Dr. Lozano may deem necessary. The work up will also include LP for CSF analysis. December 24, 2022 INTERIM EVENTS Virtual visit Patient is accompanied by her daughter and . DISCHARGE SUMMARY NEUROLOGY PATIENT NAME: Josie Landis ADMISSION DATE: 12/09/2022 DISCHARGE DATE: 12/15/2022 ATTENDING: No att. providers found Code Status: Not on file PCP: Solis Cool DO HOSPITAL COURSE: 57 yo RHF PMH of CAD s/p stent placement (4 stents total, latest stent placed May 2022), GERD, HTN,bipolar, 40-year tobacco use history, asthma presenting with 6-month history of word-finding difficulty, alexia, visual field deficit i/s/o brain MRI with splenium of corpus callosum lesion, progressive in size on follow-up MRI. Outpatient stroke evaluation feels her presentation is not c/w stroke.She is now s/p biopsy on 11/02, of which pathology was non-diagnostic. She presents 12/09 as a direct admit from clinic for further workup and evaluation. #splenium of corpus callosum lesion - Per Dr. Bhupendra Armstrong: with the constellation of signs and symptoms, including aphasia (mainly word finding difficulty), alexia, dyslexia, confusion, and visual field deficit on the right in the context of a lesion in the CC, this suggests highly a disconnecting syndrome - previous workup to date: - MRI brain 06/08 with faint diffusion restriction in the splenium of the corpus callosum, with some faint ADC hypointensity and FLAIR changes in subcortical right and left white matter without diffusion restriction - MRI brain 07/03 with corpus callosum splenium nonenhancing expansile lesion with internal cystic/necrotic foci. Interval progression on 09/25 MRI. - S/p stereotactic needle biopsy on 11/04, pathology: The biopsy shows focal hypercellularity at one corner (less than 5% of tissue submitted) with atypical angulated elongated nuclei and fibrillary background suspicious for glioma. Unfortunately this area is only present on the frozen section slide and is cut through on the resubmitted tissue. It is not present in any of the other slides/block submitted. The remainder of the specimen shows white matter with scattered foamy macrophages and gliosis - S/p decadron taper from 11/05-12/04 - CT C/A/P 11/25 with no suspicious primary lung malignancy noted, observed few scattered small pulmonary nodules measuring less than 5 mm. - MRI brain 12/07 with unchanged appearance of the nonenhancing mildly expansile splenial lesion s/p biopsy; no evidence of leptomeningeal disease, no elevated CBV in the splenium of the corpus callosum or elsewhere - workup on during [facility] admission: - MRI C/T/L WWO 12/10 mild enhancement of the R S1 cauda equina nerve root and equivocal enhancementof the L S1 cauda equina nerve root. No definite enhancement is identified in the other cauda equina nerve roots. These findings are nonspecific given the relatively limited distribution and the nonenhancing nature of the primary lesion in the corpus callosum. No 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 disease, drop mets - LP 12/10 - routine analysis and cell count wnl, protein 81, glucose 64, no organisms on C+S prelimresult, IgG/Alb ration 0.08, HSV negative, Cryptococcal Ag negative, MBP 8.63, oligoclonal bands negative, cytology unremarkable, flow cytometry with no evidence of lymphoproliferative disorder, - PET scan 12/13 Brain: No hypermetabolic lesions in the brain to suggest metastases or FDG avid neoplastic process. The lesion in the posterior corpus callosum demonstrated no significant FDG uptake. The findings compatible with low-grade neoplasm or nonneoplastic process. No focal uptake in the head and neck, chest, abdomen and pelvis, or extremities. -- per ID consult: HIV screen, remote hep screen, histo urine antigen, Mycoplasma IgG all unremarkable Plan - f/u ENS2 - f/u remaining LP studies: ENC2, MNGS, bacterial culture, fungal culture, AFB culture - neuro-ophthalmology eval to define whether visual field deficit matches with her brain lesions vsother cause - scheduled 12/15 after discharge No new issues She is here for post hospitalization follow up. Last Chemo: N/A Current Steroids dose: Start End dexAMETHasone (DECADRON) 2 mg tablet (Discontinued) 100 tablet 0 11/05/2022 11/17/2022 Sig: Take 4 tablets in the morning and in the afternoon for 5 days. Take 3 tablets in the morning and in the afternoon for 5 days. Current dose as of 11/17/22: Then take 2 tablets in the morning and in the afternoon for 5 days.Then take 1 tablet in the morning and afternoon until directed otherwise. Sent to pharmacy as: dexAMETHasone (DECADRON) 2 mg tablet Start November 20: 2 mg BID for 5 days Start November 25: 2 mg once day for 5 days November 30: 1 MG (1/2 Tab) FOR 5 DAYS THEN OFF. Current AED Dose: N/A 02/18/23 INTERIM EVENTS -01/12/23 Follow up with Neuroimmunology Dr. Lozano. Recommend follow up images. Symptoms: the patient says that her visual field deficit remain the same, with no new symptoms. ASSESSMENT/PLAN: 57 year old right handed female with abnormal MRI brain and other relevant PMHx of CAD s/p stent placement (4 stents total, latest stent placed May 2022), HTN, HLD, bipolar disorder, seizure-like episodes, and tobacco use history presenting for follow up on evaluation of abnormal brain lesion (corpus callosum lesion). She developed right HH, alexia, aphasia, and confusion post recent stent placeme nt in May 2022 (in retrospect patient may have had some mild memory impairment for the preceding 6 months). MRI brain for the first time in Jun 2022 showed a CC FLAIR lesion without GdE initially attributed to daly-procedural infarct but noted to have progression in size of lesion in August 2022 whichprompted referral to brain tumor s/p right stereotactic biopsy which was non-diagnostic. She was admitted to hospital in Dec 2022 due to worsening of symptoms with extensive evaluation including PET scans, CT chest/abdomen/pelvis without clear primary malignancy or FDG uptake and CSF without evidence of inflammation, malignancy, or infections (including MNGS). Neuroaxis imaging demonstrated possible enhancement in right S1 nerve root. Repeat imaging again in January 2023 showed stable lesion (with new punctate enhancement at biopsy site), persistent enhancement of right S1 and new enhancementof right S2. CSF was repeated with neuro-oncology which showed new lymphocytic pleocytosis. Neurologically she remains stable. Overall, the etiology of the CC lesion remains unclear despite extensiveevaluation but inflammatory etiology remains highest on the differential although malignancy continues to be evaluated. At this time, we would recommend holding off on immunotherapy with close monitoring. PLAN: - SPEP and CARTER testing today. - Will discuss imaging during our neuroradiology meeting. - Repeat MRI brain and follow up with Dr. Soto as scheduled. - Would be reasonable to proceed with repeat CSF again if scheduled with Dr. Soto. - Follow up with us again in about 2 months. Future Appointments Date Time Provider Department Center 04/19/2023 10:00 AM MRI [facility] (I-STAT/1.5T) RMRIWS [facility] 04/21/2023 1:30 PM Codie Soto MD [facility] Office Visit on 03/30/23 IMMUNOFIXATION SCREEN, SERUM PROTEIN ELECTROPHORESIS SERUM W/INTERP Seen with Dr. Albarado. Rich Gudino MD Neuroimmunology Fellow [facility] Patient seen and evaluated. She continues to recover from a large posterior corpus callosum 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 lesion with a couple additional, non-specific spots elsewhere in her purvi. At this point, she does not fulfill diagnostic criteria for multiple sclerosis and the very large size of the lesion decreases her risk to develop multiple sclerosis in the future. Nonetheless, she needs continued monitoring and follow-up imaging, along with Dr. Soto in neuro-oncology. Other details as above. Berto Albarado MD Note Details Instructions Abstract Open 04/05/2023 [facility] Rich Gudino MD Neurology Progress Notes Rich Gudino MD (Fellow) Neurology Unsigned Neuroimaging discussed at the [facility] neuroradiology conference today with Dr. Fadi Amado from neuroradiology department and [facility] clinicians [Dr. Lozano, Dr. Sams, Dr. Mahajan, Dr. Garnett, Dr. Jeffries, Dr. Hamm, Dr. Nguyen, Dr. Gonzales]. Discussed lumbar spine imaging findings of nerve root enhancements which upon review may be relatedto vessels and likely not deemed to be pathological particularly in the setting of absence of clinical findings localizable. Discussed brain imaging findings regarding the corpus callosum with continued uncertainty regardingthe diagnosis with primary differentials including neoplastic etiology and non-specific inflammatory etiology. Given the extensive workup done to date and clinical/radiological stability we would agree with continued surveillance for now. MRI already scheduled for later this month per Dr. Soto which we will review with office visit. Additional considerations will include repeat CSF testing to follow up on new pleocytosis noted on most recent CSF. Future Appointments Date Time Provider Department Center 04/19/2023 10:00 AM MRI [facility] (I-STAT/1.5T) [facility] 04/21/2023 1:30 PM Codie Soto MD [facility] 06/01/2023 11:15 AM Rich Gudino MD [facility] Rich Gudino MD Neuroimmunology Fellow 04/28/23 INTERIM EVENTS Virtual visit - Audio only. The patient is accompanied by She is here to go over the CSF results form the 2nd LP. Symptoms: the patient says that her visual field deficit remain the same, with no new symptoms. July 21, 2023 INTERIM EVENTS Virtual visit - Audio only. The patient is accompanied by daughter. She has no new symptomatology in the neurology clinic systemically. She saw Dr. Lozano today's team, and the neuro immunology/[facility]. They have organize, electrophysiological testing to assess her lower extremity paresthesias. They also recommended an MRI of the brain to be done in 3 months time, and the patient will be alsofollowed by Dr. Lozano after the MRI. Therapy Status Data Form Past Medical History: PAST MEDICAL HISTORY Diagnosis Date Asthma due to seasonal allergies 11/02/2022 Basal cell carcinoma (BCC) of cheek 2020 left cheek Bipolar affective (HCC) Coronary artery disease Coronary artery disease involving wiyot coronary artery of wiyot heart without angina pectoris 11/02/2022 Gastroesophageal reflux disease without esophagitis 11/02/2022 Hyperlipidemia Primary hypertension 11/02/2022 Seizures (HCC) 11/02/2022 Stroke (HCC) Past Surgical History: PAST SURGICAL HISTORY Procedure Laterality Date CHOLECYSTECTOMY HX EXCISION & REPAIR EYELID ONE-FOURTH LID MARGIN Left 2020 removal of BCC from left cheek LIGATE FALLOPIAN TUBE PAST SURGICAL HISTORY OF 05/2022 cardiac stent x 1 PAST SURGICAL HISTORY OF hiatal hernia repair PAST SURGICAL HISTORY OF partial hysterectomy SHOULDER ARTHROSCOPY/SURGERY Right torn rotator cuff TONSILLECTOMY HX UNLISTED CARDIAC SURG PROCEDURE 2018 cardiac stents x 2 Family History: FAMILY HISTORY Problem Relation Age of Onset Cataract Mother Heart Mother heart attack, stents Hypertension Mother Cancer Mother basal cell carcinoma of ear Cataract Father Heart Father stroke Hypertension Father Cancer Father Basal cell cancer Cancer Maternal Grandmother METS and unknown primary site Heart Maternal Grandfather of heart exploded Macular Degen Paternal Grandmother Cataract Paternal Grandmother Cancer Maternal Aunt METS and not sure of primary site Schizophrenia Maternal Aunt Cancer Granddaughter neuroblastoma Anesthesia Problems No Family History Diabetes No Family History No family H/O neurological conditions No H/O brain tumors in family No H/O 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 diseases in the family She has 2 biological daughters who are healthy. Social History Tobacco Use Smoking status: Some Days Packs/day: 0.30 Years: 40.00 Additional pack years: 0.00 Total pack years: 12.00 Types: Cigarettes Smokeless tobacco: Never Tobacco comments: Trying to quit currently Used to smoke a pack per day on average Vaping Use Vaping Use: Some days Substances: Flavoring Devices: Disposable Substance Use Topics Alcohol use: Not Currently Drug use: Never Allergies: Budesonide-Formoterol, Aspirin, Latex, Penicillins, Adhesive Tape-Silicones, Budesonide, and Formoterol Current Outpatient Medications Medication Sig iv contrast (will be provided with radiology test) MRI Brain Inject, intravenously, once for 1 dose.No IV access, insert saline lock prior to beginning of sedation, infusion, injection of imaging exam.Discontinue saline lock post exam. If Pt. has a central line or IVAD, may access for administration according to line specific nursing protocol.Once exam is complete flush line and de-access according to line specific nursing protocol in the MR contrast administration guidelines link lactobacillus combination no.4 (PROBIOTIC) 3 billion cell cap isosorbide mononitrate ER (IMDUR) 30 mg 24 hr tablet Take 1 tablet by mouth every afternoon. aspirin, enteric coated (ASPIRIN, ENTERIC COATED) 81 mg EC tablet Take 1 tablet by mouth every afternoon. albuterol HFA (PROVENTIL HFA, VENTOLIN HFA) 90 mcg/actuation inhaler Inhale as instructed. evolocumab 140 mg/mL subcutaneous pen injector (REPATHRadiate Media SURECLICK) Inject 140 mg subcutaneously every 2 weeks. ondansetron (ZOFRAN) 8 mg tablet Take 1 tablet by mouth every 8 hours as needed for nausea/vomiting. pantoprazole DR (PROTONIX) 40 mg tablet Take 1 tablet by mouth once daily. acetaminophen (TYLENOL) 325 mg tablet 2 tablets by ORAL/FEEDING TUBE route every 4 hours as needed for pain. senna-docusate (SENNA-S) 8.6-50 mg per tablet 1 tablet by ORAL/FEEDING TUBE route twice daily. hydroCHLOROthiazide 12.5 mg tablet Take 12.5 mg by mouth once daily. buPROPion XL (WELLBUTRIN XL) 300 mg 24 hr tablet Take 300 mg by mouth every morning. clonazePAM (KLONOPIN) 0.5 mg tablet Take 0.5 mg by mouth twice daily as needed for anxiety. traZODone (DESYREL) 100 mg tablet Take 300 mg by mouth daily at bedtime. vilazodone (VIIBRYD) 40 mg tablet Take 40 mg by mouth once daily. losartan (COZAAR) 25 mg tablet Take 25 mg by mouth once daily. metoprolol succinate ER (TOPROL XL) 25 mg 24 hr tablet Take 12.5 mg by mouth once daily. ezetimibe (ZETIA) 10 mg tablet Take 10 mg by mouth once daily. cariprazine (VRAYLAR) 3 mg capsule Take 3 mg by mouth once daily. No current facility-administered medications for this visit. Review of systems: Constitutional: No recent fever or weight loss. Eyes: No history of glaucoma or cataracts. ENMT: No recent ear infection, nasal congestion, mouth sores or sore throat. CV: No history of chest pain, palpitations or leg swelling. Respiratory: No history of SOB, asthma or recent cough. Gastrointestinal: No history of nausea, vomiting, dysphagia or abdominal pain. Genitourinary: No history of hematuria or dysuria. Musculoskeletal: No complaint of arthritis, unstable gait or arm/leg weakness. Psychiatric: No history of hallucinations or depression or anxiety. ROS Neurological: No complaint of headache. No complaint of tinnitus. No complaint of decreased hearing. No complaint of diplopia. No complaints of decreased visual acuity. No complaint of arm/leg numbness. No problem with limb coordination. No complaint of syncope, seizures or disorientation. Objective Physical Exam: There were no vitals taken for this visit. This is a virtual exam based on observational as below: No vital signs. NEURO: on observation, CN intact (patient had a visual field deficit - see notes of in person encounters), no pronator drift, no tremor noted, self reported and/or on observation moves extremities equally, no self-reported sensory deficits and ambulating without difficulty. Karnofsky performance status: 80 - Normal activity with effort, some signs or symptoms of disease. ECOG performance status: 1 - Restricted in physically strenuous activity but ambulatory and able tocarry out work of a light or sedentary nature, e.g., light house work or office work. 06/01/2023 PHQ 2 and 9 Total Scores PHQ-2 Score 3 PHQ-9 Score 17 Labs: Latest Ref Rng & Units 12/12/2022 12/14/2022 12/15/2022 CBC WBC 3.70 - 11.00 k/uL 3.68 3.88 4.74 RBC 3.90 - 5.20 m/uL 4.64 4.40 4.28 Hemoglobin 11.5 - 15.5 g/dL 13.0 12.5 12.2 Hematocrit 36.0 - 46.0 % 39.7 38.1 37.2 MCV 80.0 - 100.0 fL 85.6 86.6 86.9 MCH 26.0 - 34.0 pg 28.0 28.4 28.5 MCHC 30.5 - 36.0 g/dL 32.7 32.8 32.8 RDW-CV 11.5 - 15.0 % 13.9 14.0 14.1 Platelet Count 150 - 400 k/uL 179 180 179 MPV 9.0 - 12.7 fL 9.3 8.7 9.0 Latest Ref Rng & Units 03/30/2023 06/01/2023 06/18/2023 CMP Glucose 74 - 99 mg/dL 91 Protein, Total 6.3 - 8.0 g/dL 6.1 Albumin, Serum 3,900 - 4,900 mg/dL 3,900 ORDERS: Associate Signed Orders Orders Signed This Visit (17) AFB CULT + STAIN Clinician Collect, Routine, Specimen Sources - CEREBROSPINAL FLUID.;, Resulting Agency - [facility], Dx: 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 Brain lesion 3. Confusion 4. Alexia 5. Visual field defect AFB CULT + STAIN Order: [id number] Status: Preliminary result Visible to patient: No (not released) Dx: Alexia; Confusion; Visual field defec... Specimen Information: CSF LUMBAR PUNCTURE 0 Result Notes Culture No Acid Fast Bacilli isolated after 35 days Smear Result No acid fast bacilli seen by flurochrome stain [place] [facility] [place] Collected: 03/22/23 9:20 AM EST Last Resulted: 04/27/23 8:03 AM EST CSF CULT + STAIN Clinician Collect, Routine, Specimen Sources - CEREBROSPINAL FLUID;, Resulting Agency - [facility], Dx: 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 Brain lesion 3. Confusion 4. Alexia 5. Visual field defect CSF CULT + STAIN Order: [id number] Status: Final result Visible to patient: Yes (seen) Dx: Neoplasm of uncertain behavior of bra... Specimen Information: CSF LUMBAR PUNCTURE 0 Result Notes important suggestion Newer results are available. Click to view them now. Culture, CSF No growth 5 days Smear Result No organisms seen Rare Polymorphonuclear leukocytes Few Mononuclear cells Gram stain performed on cytospun specimen. [place]ing [place] [facility] [place] Collected: 03/22/23 9:20 AM EST Last Resulted: 03/27/23 9:21 AM EST CSF ROUT ANALYSIS Clinician Collect, Routine, Specimen Sources - CSF LUMBAR PUNCTURE;, Resulting Agency - [facility], Dx: 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 Brain lesion 3. Confusion 4. Alexia 5. Visual field defect Contains abnormal data CSF ROUT ANALYSIS Order: [id number] Status: Final result Visible to patient: Yes (seen) Dx: Neoplasm of uncertain behavior of bra... 0 Result Notes Specimen Collected: 03/22/23 9:20 AM EST Last Resulted: 03/22/23 11:04 AM EST Order Details View Encounter Lab and Collection Details Routing Result History View All Conversations on this Encounter Result Care Coordination Patient Communication Add Comments Seen Back to Top Contains abnormal data CSF MANUAL DIFF Order: [id number] - Reflex for Order [id number] Status: Final result Visible to patient: Yes (seen) Dx: Neoplasm of uncertain behavior of bra... 0 Result Notes Component Ref Range & Units 1 mo ago (03/22/23) 1 mo ago (03/22/23) 4 mo ago (12/10/22) Diff Total, CSF cells counted 100 100 100 Lymph%, CSF 50 - 90 % 95 High 99 High 90 Mccracken%, CSF 10 - 50 % 5 Low 1 Low 10 Resulting Agency [facility] Specimen Collected: 03/22/23 9:20 AM EST Last Resulted: 03/22/23 2:44 PM EST Lab Flowsheet Order Details View Encounter Lab and Collection Details Routing Result History View All Conversations on this Encounter Result Care Coordination Patient Communication Add Comments Seen Back to Top Contains abnormal data PROTEIN CSF Order: [id number] - Part of Panel Order [id number] Status: Final result Visible to patient: Yes (seen) Dx: Neoplasm of uncertain behavior of bra... 0 Result Notes Component Ref Range & Units 1 mo ago 4 mo ago Protein, CSF 15 - 45 mg/dL 89 High 81 High Resulting Agency [facility] Specimen Collected: 03/22/23 9:20 AM EST Last Resulted: 03/22/23 11:04 AM EST Lab Flowsheet Order Details View Encounter Lab and Collection Details Routing Result History View All Conversations on this Encounter Result Care Coordination Patient Communication Add Comments Seen Back to Top GLUCOSE CSF Order: [id number] - Part of Panel Order [id number] Status: Final result Visible to patient: Yes (seen) Dx: Neoplasm of uncertain behavior of bra... 0 Result Notes Component Ref Range & Units 1 mo ago 4 mo ago Glucose, CSF 40 - 70 mg/dL 70 64 CM Comment: Lumbar CSF glucose values of healthy patients are approximately 60% of the plasma values and must always be compared with a concurrently measured plasma value for adequate clinical interpretation. References: 1. Glucose HK (GLUC3) [package insert V 12.0 [place]]. [employer], [place]. September 2015. 2. Renea Rodriguez, Renea Cardona (2015). Chapter 7: Glucose and Lactate. F. Birdie toledo al.(eds.), Cerebrospinal Fluid in Clinical Neurology. [place]: [employer]. Resulting Agency [facility] Specimen Collected: 03/22/23 9:20 AM EST Last Resulted: 03/22/23 11:04 AM EST Lab Flowsheet Order Details View Encounter Lab and Collection Details Routing Result History View All Conversations on this Encounter CM=Additional comments Result Care Coordination Patient Communication Add Comments Seen Back to Top Contains abnormal data CSF CELL COUNT Order: [id number] - Part of Panel Order [id number] Status: Final result Visible to patient: Yes (seen) Dx: Neoplasm of uncertain behavior of bra... 0 Result Notes important suggestion Newer results are available. Click to view them now. Component Ref Range & Units 1 mo ago 4 mo ago CSF Tube Number Tube 1 Tube 4 Color, CSF Colorless Colorless Colorless Clarity, CSF Clear Clear Clear Supernatant Color, CSF Colorless Not Indicated Not Indicated Supernatant Clarity, CSF Clear Not Indicated Not Indicated RBC, CSF 0 - 5 cells/uL 11 High 1 Total Nucleated Cells, CSF 0 - 5 cells/uL 19 High 2 Resulting [facility] Specimen Collected: 03/22/23 9:20 AM EST Last Resulted: 03/22/23 11:03 AM EST Lab Flowsheet Order Details View Encounter Lab and Collection Details Routing Result History View All Conversations on this Encounter Result Care Coordination Patient Communication Add Comments Seen Back to Top Result Information Flag: Abnormal Abnormal Status: Final result (Resulted: 03/22/2023 11:04 AM) Provider Status: Open Questions Order Question Answer Ra Account (Please Enter 8-digit numeric number beginning with 00) Collection comment: CSF ROUT ANALYSIS (Order [id number]) Linked Results Procedure Abnormality Status CSF CELL COUNT Abnormal Abnormal Final result PROTEIN CSF Abnormal Abnormal Final result GLUCOSE CSF Normal Final result CSF MANUAL DIFF (Order [id number]) - Reflex for Order [id number] PROTEIN CSF (Order [id number]) GLUCOSE CSF (Order [id number]) CSF CELL COUNT (Order [id number]) Patient Release Status: This result is viewable by the patient in MyChart. Last viewed in [email or web address]: 03/27/2023 9:52 AM By: Josie Landis Routing History Priority Sent On From To Message Type 03/22/2023 2:15 PM Ce, Scheduled Orders In Codie Soto MD Results 03/22/2023 11:03 AM Lab, Background User Codie Soto MD Results View Visual [employer] Info CSF ROUT ANALYSIS (Order #[id number]) on 02/22/23 CAP/CLIA/Joint Commission Regulatory Result Report CSF ROUT ANALYSIS (Order #[id number]) on 02/22/23 Patient Communication CSF ROUT ANALYSIS Add Comments Seen PROTEIN CSF Add Comments Seen GLUCOSE CSF Add Comments Seen CSF CELL COUNT Add Comments Seen Related Result Highlights CYTOLOGY NON-[employer]OR [employer] Final result 03/22/2023 FINAL DIAGNOSIS A - CEREBROSPINAL FLUID Negative for malignant cells. Chronic inflammation. Other Results from 02/18/2023 IGG/ALB RATIO CSF Final result 03/22/2023 BANDS OLIGOCLONAL CSF Final result 03/22/2023 OLIGOCLONAL CSF IGG Final result 03/22/2023 CSF CULT + STAIN Final result 03/22/2023 FUNGAL CSF CULT/CAD Final result 03/22/2023 MYELIN BASIC PRO CSF Final result 03/22/2023 VDRL CSF Final result 03/22/2023 CRYPTOCOCCUS AG DET Final result 03/22/2023 important suggestion Warning: Additional results from 02/18/2023 are available but are not displayed in this report. CSF SPECIMEN LABELS Referral By - CODIE SOTO 1 visit, Qty-1, Normal, Routine, Dx: 1. Neoplasm of uncertainbehavior of brain, supratentorial (HCC) 2. Brain lesion 3. Confusion 4. Alexia 5. Visual field defect CYTOLOGY NON-[employer] Clinician Collect, Routine, Specimen Sources - CSF LUMBAR PUNCTURE;, Resulting Agency - [facility], Dx: 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 Brain lesion 3. Confusion 4. Alexia 5. Visual field defect CYTOLOGY NON-[employer]: [id number] Order: [id number] Collected 03/22/2023 9:20 AM Status: Final result Visible to patient: Yes (seen) Dx: Neoplasm of uncertain behavior of bra... 0 Result Notes Component FINAL DIAGNOSIS A - CEREBROSPINAL FLUID Negative for malignant cells. Chronic inflammation. EXTRA TUBES Clinician Collect, Routine, Dx: 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Brain lesion 3. Confusion 4. Alexia 5. Visual field defect CSF Tube(s) collected? x4 FLOW CYTOMETRY FOR LEUKEMIA/LYMPHOMA (FCLL) Future, Expected: 02/22/2023, Clinician Collect, Resulting Agency - [facility] FLOW CYTOMETRY FOR LEUKEMIA/LYMPHOMA (FCLL) REFLEX: [id number] Order: [id number] - Reflex for Order [id number] Status: Final result Visible to patient: Yes (seen) Dx: Alexia; Confusion; Visual field defec... 0 Result Notes Component Interpretation There is no evidence of involvement by a lymphoproliferative disorder or abnormal blast population.Correlation with the clinical findings is suggested. AL CSF CULT/CAD Clinician Collect, Routine, Specimen Sources - CSF LUMBAR PUNCTURE;, Resulting Agency - [facility], Dx: 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 Brain lesion 3. Confusion 4. Alexia 5. Visual field defect FUNGAL CSF CULT/CAD Order: [id number] Status: Final result Visible to patient: Yes (not seen) Dx: Neoplasm of uncertain behavior of bra... Specimen Information: CSF LUMBAR PUNCTURE 0 Result Notes important suggestion Newer results are available. Click to view them now. Culture No Fungus isolated after 28 days Resulting [place] [facility] [place] Collected: 03/22/23 9:20 AM EST Last Resulted: 04/19/23 11:02 AM EST Lab Flowsheet Order Details View Encounter Lab and Collection Details Routing Result History View All Conversations on this Encounter Result Care Coordination Patient Communication Add Comments Add Notifications Back to Top CRYPTOCOCCUS AG DET Order: [id number] - Reflex for Order [id number] Status: Final result Visible to patient: Yes (seen) Dx: Neoplasm of uncertain behavior of bra... Specimen Information: CSF LUMBAR PUNCTURE 0 Result Notes Component Ref Range & Units 1 mo ago 4 mo ago Cryptococcal Ag Result Cryptococcal Antigen NOT DETECTED Cryptococcal Antigen NOT DETECTED Cryptococcal Antigen NOT DETECTED CM Comment: by line flow immunoassay Resulting Agency [facility] Specimen Collected: 03/22/23 9:20 AM EST Last Resulted: 03/22/23 3:13 PM EST GLUCOSE RANDOM BLD Future, Expected: 02/22/2023, Lab, Routine, Specimen Sources - BLOOD;, Resulting [facility], Dx: 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 Brain lesion 3.Confusion 4. Alexia 5. Visual field defect IR LUMBAR PUNCTURE DIAGNOSTIC (MC) Routine LYME DISEASE BY PCR Future, Expected: 02/22/2023, Lab, Routine, Specimen Sources - CEREBROSPINAL FLUID.;, Resulting [facility], Dx: 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 Brain lesion 3. Confusion 4. Alexia 5. Visual field defect Source: CSF LUMBAR PUNCTURE LYME DISEASE BY PCR Order: [id number] Status: Final result Visible to patient: Yes (seen) Dx: Brain lesion 0 Result Notes Component 1 mo ago Specimen Source (LYPCR) CSF Borrelia sp. PCR Not Detected Comment: NOT DETECTED - A negative result does not rule out the presence of PCR inhibitors in the patient specimen or assay specific nucleic acid in concentrations below the level of detection by the assay. Blood and CSF specimens have poor clinical sensitivity for detection of Borrelia burgdorferi by PCR. INTERPRETIVE INFORMATION: Borrelia Species DNA Detection by PCR This test was developed and its performance characteristics determined by [facility]. It has not been cleared or approved by the [place] Food and Drug Administration. This test was performed in a CLIA certified laboratory and is intended for clinical purposes. Performed By: [facility] [address] [place] [id number] Dross Skimmer: Rj Camacho MD, PhD CLIA Number: [id number] Resulting [facility] Specimen Collected: 03/22/23 9:20 AM EST Last Resulted: 03/25/23 9:09 AM EST MISC SEND OUT TST 1 Future, Expected: 02/22/2023, Lab, Specimen Types - CSF;, Resulting [facility] MISC SEND OUT TST 1 Future, Expected: 02/22/2023, Lab, Specimen Types - CSF;, Resulting [facility] MYELIN BASIC PRO CSF Clinician Collect, Routine, Specimen Sources - CSF LUMBAR PUNCTURE;, Resulting [facility], Dx: 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 Brain lesion 3. Confusion 4. Alexia 5. Visual field defect MYELIN BASIC PRO CSF Order: [id number] Status: Final result Visible to patient: Yes (seen) Dx: Neoplasm of uncertain behavior of bra... 0 Result Notes Component Ref Range & Units 1 mo ago 4 mo ago Myelin Basic Protein, CSF 0.00 - 5.50 ng/mL 5.05 8.63 High CM Comment: INTERPRETIVE INFORMATION: Myelin Basic Protein This test was developed and its performance characteristics determined by [facility]. It has not been cleared or approved by the [place] Food and Drug Administration. This test was performed in a CLIA certified laboratory and is intended for clinical purposes. 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 Brain lesion 3. Confusion 4. Alexia 5. Visual field defect BANDS OLIGOCLONAL CSF Order: [id number] - Part of Panel Order [id number] Status: Final result Visible to patient: Yes (seen) Dx: Brain lesion 0 Result Notes Component 1 mo ago CSF Oligoclonal Bands Oligoclonal bands are not seen in the CSF. 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 Brain lesion 3. Confusion 4. Alexia 5. 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 Brain lesion 3. Confusion 4. Alexia 5. Visual field defect VDRL CSF Order: [id number] Status: Final result Visible to patient: Yes (seen) Dx: Neoplasm of uncertain behavior of bra... 0 Result Notes Component Ref Range & Units 1 mo ago 4 mo ago VDRL, CSF Nonreactive Nonreactive Nonreactive CM Comment: CSF VDRL test is used an aid in diagnosis of neurosyphilis. CSF VDRL detects non-treponemal antibodies and has lower sensitivity than CSF treponemal tests such as FTA, therefore a negative result cannot reliably rule out neurosyphilis. Clinical correlation is required. Resulting [facility] Specimen Collected: 03/22/23 9:20 AM EST Last Resulted: 03/23/23 12:33 PM EST Contains abnormal data CSF CELL COUNT Order: [id number] Status: Final result Visible to patient: Yes (seen) Dx: Brain lesion 0 Result Notes Component Ref Range & Units 1 mo ago (03/22/23) 1 mo ago (03/22/23) 4 mo ago (12/10/22) CSF Tube Number Tube 4 Tube 1 Tube 4 Color, CSF Colorless Colorless Colorless Colorless Clarity, CSF Clear Clear Clear Clear Supernatant Color, CSF Colorless Not Indicated Not Indicated Not Indicated Supernatant Clarity, CSF Clear Not Indicated Not Indicated Not Indicated RBC, CSF 0 - 5 cells/uL 2 11 High 1 Total Nucleated Cells, CSF 0 - 5 cells/uL 16 High 19 High 2 Resulting [facility] Specimen Collected: 03/22/23 9:20 AM EST Last Resulted: 03/22/23 11:04 AM EST Lab Flowsheet Order Details View Encounter Lab and Collection Details Routing Result History View All Conversations on this Encounter Result Care Coordination Patient Communication Add Comments Seen Back to Top Contains abnormal data CSF MANUAL DIFF Order: [id number] - Reflex for Order [id number] Status: Final result Visible to patient: Yes (seen) Dx: Brain lesion 0 Result Notes important suggestion Newer results are available. Click to view them now. Component Ref Range & Units 1 mo ago 4 mo ago Diff Total, CSF cells counted 100 100 Lymph%, CSF 50 - 90 % 99 High 90 Mccracken%, CSF 10 - 50 % 1 Low 10 Resulting [facility] Specimen Collected: 03/22/23 9:20 AM EST Last Resulted: 03/22/23 2:40 PM EST CRYPTOCOCCUS AG DET Order: [id number] - Reflex for Order [id number] Status: Final result Visible to patient: Yes (seen) Dx: Neoplasm of uncertain behavior of bra... Specimen Information: CSF LUMBAR PUNCTURE 0 Result Notes Component Ref Range & Units 1 mo ago 4 mo ago Cryptococcal Ag Result Cryptococcal Antigen NOT DETECTED Cryptococcal Antigen NOT DETECTED Cryptococcal Antigen NOT DETECTED CM Comment: by line flow immunoassay [facility] Specimen Collected: 03/22/23 9:20 AM EST Last Resulted: 03/22/23 3:13 PM EST FLOW CYTOMETRY FOR LEUKEMIA/LYMPHOMA (FCLL) REFLEX: [id number] Order: [id number] - Reflex for Order [id number] Collected 03/22/2023 9:20 AM Status: Final result Visible to patient: Yes (seen) Dx: Alexia; Confusion; Visual field defec... 0 Result Notes Component Interpretation There is no evidence of involvement by a lymphoproliferative disorder or abnormal blast population.Correlation with the clinical findings is suggested. /ALB RATIO CSF Order: [id number] Status: Final result Visible to patient: Yes (seen) Dx: Brain lesion 0 Result Notes Component Ref Range & Units 1 mo ago 4 mo ago Immunoglobulin G, CSF 1.0 - 3.0 mg/dL 4.5 High 4.1 High Albumin, CSF 10.0 - 30.0 mg/dL 57.4 High 53.8 High CSF IgG / Albumin Ratio 0.06 - 0.17 0.08 0.08 Resulting [facility] Specimen Collected: 03/22/23 9:38 AM EST Last Resulted: 03/30/23 1:35 PM EST BANDS OLIGOCLONAL CSF Order: [id number] - Part of Panel Order [id number] Status: Final result Visible to patient: Yes (seen) Dx: Brain lesion 0 Result Notes Component 1 mo ago CSF Oligoclonal Bands Oligoclonal bands are not seen in the CSF. Staff Review (Oligo Banding) Reviewed by Estefania Barajas MD [facility] Specimen Collected: 03/22/23 9:38 AM EST Last Resulted: 03/30/23 1:29 PM EST BANDS OLIGOCLONAL CSF Order: [id number] - Part of Panel Order [id number] Status: Final result Visible to patient: Yes (seen) Dx: Brain lesion 0 Result Notes Component 1 mo ago CSF Oligoclonal Bands Oligoclonal bands are not seen in the CSF. Staff Review (Oligo Banding) Reviewed by Estefania Barajas MD Resulting Agency [facility] Specimen Collected: 03/22/23 9:38 AM EST Last Resulted: 03/30/23 1:29 PM EST CSF results from June 2023, which I reviewed, and I see no abnormalities, of concern. Final Pathology: SURGICAL PATHOLOGY: [id number] Order: [id number] Collected 11/04/2022 11:13 AM Status: Final result Visible to patient: No (scheduled for 11/14/2022 1:09 PM) Dx: Glioma (HCC) 0 Result Notes Component FINAL DIAGNOSIS A. Brain, right corpus callosum lesion, stereotactic biopsy - Minute focus of atypical cells in a reactive background; - See comment. B. Brain, right corpus callosum lesion, stereotactic biopsy - Gliosis with scattered macrophages. Diagnosis Comment The biopsy shows focal hypercellularity at one corner (less than 5% of tissue submitted) with atypical angulated elongated nuclei and fibrillary background suspicious for glioma. Unfortunately this area is only present on the frozen section slide and is cut through on the resubmitted tissue. It is not present in any of the other slides/block submitted. The remainder of the specimen shows white matter with scattered foamy macrophages and gliosis. Part B shows white matter with scattered macrophages and gliosis but does not have the atypical area noted in frozen section. Immunohistochemical stains performed to help with classification show thefollowing (B1): CD68 highlights scattered macrophages; IDH1 R132H negative (wt); ATRX retained; p53 strong nuclear positivity 10%; Ki-67 proliferative index 1%; BRAF V600E negative (wildtype); H3 K27M negative (wt); H3 K27me3 retained; Luxol fast blue focal mild loss; Neurofilament cocktail with focal decreased axons; GMS negative for fungus; Gram negative for bacteria. FISH for EGFR reported separately. Slides also reviewed by Drs. Maria Luisa Leonardo and Jesu Narvaez who agree. Laboratory Developed Test (LDT) Disclaimer: Performance characteristics of immunohistochemical, immunofluorescent and chromogenic in-situ hybridization tests have been determined by the performing laboratory within [facility] Medicine [place] ([facility], [facility], [facility], [facility], [facility], or [facility]) in a manner consistent with CLIA requirements. One or more of these tests have not been cleared or approved by the FDA. [facility] is regulated under CLIA as qualified to perform high-complexity testing. These tests are used for clinical purposes. They should not be regarded as investigational or for research. Positive and negative controls stain appropriately. Gross Description A. BRAIN BIOPSY Received fresh for intraoperative evaluation labeled as right corpus callosum lesion is a whitishoval piece of tissue measuring 5 x 4 x 0.2 cm. Half of the tissue is submitted for frozen section evaluation in FSA 1. The rest of the tissue is submitted for permanent in A2. Gross examination performed at [address] 11/04/2022 B. BRAIN BIOPSY Received fresh labeled right corpus callosum lesion are multiple fragments of white-goodson tissue aggregating to 0.6 x 0.5 x 0.2 cm. The specimen is submitted entirely in cassette B1. [place] [address] JXM/DANIELE 11/04/22 12:21 PM Intraoperative Diagnosis A. 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 (Dr. Narvaez). Intraoperative diagnosis performed at [address] 11/04/2022 Clinical History Pre-op diagnosis: Glioma (HCC) [C71.9] Performing Lab Diagnostic interpretation performed at [place] [address] CLIA# [id number] Dross Skimmer: Jasen Rivera M.D. Resulting Agency [facility] Specimen Collected: 11/04/22 11:13 AM EDT Last Resulted: 11/09/22 1:09 PM EDT Order Details View Encounter Lab and Collection Details Routing Result History View All Conversations on this Encounter Scans on Order [id number] Document on 11/09/2022 1:09 PM by Anusha Thomas MD Result Care Coordination Patient Communication 11/14/2022 1:09 PM Release Now Not seen Back to Top FISH FOR EGFR: [id number] Order: [id number] - Reflex for Order [id number] Collected 11/04/2022 11:22 AM Status: Final result Visible to patient: Yes (seen) Dx: Glioma (HCC) 0 Result Notes Component FISH FOR EGFR FISH for EGFR Laboratory Accession Number: [id number] Case: [id number] Block: B1 Sample Type: FFPET Sample Description: BRAIN BIOPSY, RIGHT CORPUS CALLOSUM LESION Received Date: 11/06/2022 RESULTS: EGFR NOT AMPLIFIED Number of nuclei scored: 40 INTERPRETATION: Negative for amplification of the EGFR gene. Clinical and pathological correlation is recommended. The following FISH results were obtained: EGFR: 1.78 CEP7: 2.15 EGFR/CEP7 ratio: 0.83 (Reference Range: Amplified >2.00) COMMENT: A combination of genetic signature and histology stratifies lower- grade gliomas better than histology alone. IDH-wildtype infiltrating or diffuse astrocytomas with EGFR amplification are predicted to follow an aggressive clinical course resembling that of IDH-wildtype glioblastoma. Reference: Néstor JACOME et al. cIMPACT-NOW update 3: recommended diagnostic criteria for Diffuse astrocytic glioma, IDH- wildtype, with molecular features of glioblastoma, WHO grade IV. Acta Neuropathol. 2018 Nov;136(5):805-810. METHODOLOGY: Amplification of the Epidermal Growth Factor Receptor (EGFR) gene was evaluated with interphase fluorescence in situ hybridization (FISH) on formalin-fixed paraffin embedded tissue sections using the LSI EGFR (7p11.2) and chromosome 7 centromere (CEP 7) probes ([employer], [place], [place]). The slides were scored manually. LIMITATIONS: This test will not identify all rearrangements involving EGFR. Rare, cryptic abnormalities may be below the resolution of the assay, or may otherwise be undetected. Specimen size, quality or representativeness can affect the quality of the result. This assay has been validated for tissues fixed with 10% neutral buffered formalin. Decalcification agents and fixation agents containing heavy metals, e.g. B5, or harsh acid or base components (e.g. Bouin's solution) can adversely impact assay performance. DISCLAIMER: This test was developed and its performance characteristics determined by the [facility] [place] ([facility]). It has not been cleared or approved by the FDA. [facility] is regulated under CLIA as qualified to perform high- complexity testing. This test is used for clinical purposes. It should not be regarded as investigational or for research. Interpretation performed at [facility], [facility] [place] [address]. CLIA Number: [id number] As reviewed by Mayra Louis MD, PhD Resulting Agency [facility] Specimen Collected: 11/04/22 11:22 AM EDT Last Resulted: 11/09/22 3:26 PM EDT Order Details View Encounter Lab and Collection Details Routing Result History View All Conversations on this Encounter Result Care Coordination Patient Communication Add Comments Seen Back to Top Specimen Collection Information ID Source Type Collected By Time Frozen A BRAIN BIOPSY Tissue Carlos Jovel MD 11/04/22 1113 Yes Description: right corpus callosum lesion B BRAIN BIOPSY Tissue Carlos Jovel MD 11/04/22 1122 No Description: right corpus callosum lesion Additional Information Diagnosis codes: Glioma (HCC) [C71.9] Comments: Pre-op diagnosis: Glioma (HCC) [C71.9] Scanned Documents Result Information Status: Final result (Resulted: 11/09/2022 1:09 PM) Provider Status: Open Questions Order Question Answer Source of specimen(s): Clinical History SURGICAL PATHOLOGY (Order [id number]) FISH FOR EGFR (Order [id number]) - Reflex for Order [id number] Patient Release Status: This result is scheduled for release on 11/14/2022 1:09 PM. Routing History Priority Sent On From To Message Type 11/09/2022 3:26 PM Lab, Background User Anusha Thomas MD Results 11/09/2022 1:09 PM Lab, Background User Carlos Jovel MD Results 11/09/2022 1:09 PM Lab, Background User Triston Guy MD Results View [employer] Info SURGICAL PATHOLOGY (Order #[id number]) on 11/04/22 CAP/CLIA/Joint Commission Regulatory Result Report SURGICAL PATHOLOGY (Order #[id number]) on 11/04/22 SURGICAL PATHOLOGY: Patient Communication 11/14/2022 1:09 PM Release Now Not seen Imaging: Results CT CHEST W IVCON (Acc#[id number]) (Order [id number]) Patient Info Patient Name Sex Josie Santos ([id number]) Female 1965 Imaging Findings Finding Acuity Linked Recommendation Recommendation Status Finding Status Incidental Reviewed 11/25/2022 5:41 PM - Radiology, Oru In Component Results Component Performing Lab Radiology Result (Actionable) (Final) CCRAD ACTIONABLE Comment: This report contains an incidental or actionable finding. This finding may be a new finding separate from the reason your provider ordered the imaging test or it may be an already known finding that needs additional or continued follow-up. Because of this incidental or actionable finding, you may need another test (imaging or a different type of test). Please contact your provider for the next steps. Impression IMPRESSION: 1. No suspicious primary lung malignancy noted. 2. Few scattered small pulmonary nodules measuring less than 5 mm. Incidental Finding: Follow-up Acuity: Incidental Finding: Solid: <6 mm (solitary or multiple) Routing Code: N/A Recommendation: No imaging follow-up is recommended Time Frame: N/A Comments: If there are risk factors for lung malignancy, a follow-up chest CT exam could be obtained in 12 months Physical Chemistry Teacher: RHIANNON Transcribe Date/Time: Nov 25 2022 5:31P Dictated by : TOMAS DEVINE MD This examination was interpreted and the report reviewed and electronically signed by: TOMAS DEVINE MD on Nov 25 2022 5:38PM EST Results-Findings * * *Final Report* * * DATE OF EXAM: Nov 25 2022 12:18PM [facility] 0539 - CT CHEST W IVCON / PROCEDURE REASON: Lesion of brain * * * * Physician Interpretation * * * * EXAMINATION: CHEST CT WITH CONTRAST CLINICAL HISTORY: Brain lesion. Evaluate for occult malignancy. Technique: Spiral CT acquisition of the chest from the thoracic inlet to the upper abdomen following IV contrast. MQ: CTCW_6 Contrast: 100 mL Omnipaque [address] Radiation dose: Integrated Dose-length product (DLP) for this visit = 840 mGy*cm CT Dose Reduction Employed: Automated exposure control(AEC) and iterative recon Comparison: No relevant prior studies available. RESULT: Limitations: None. Lines, tubes, and devices: None Lung parenchyma, pleural space and airways: Lungs are clear of focal consolidation. Few small noncalcified pulmonary nodules are identified. For reference, 3 mm nodule in the posterior RIGHT lower lobe (image 143), 3 mm nodule in the medial RIGHT lower lobe (image 121), 3 mm nodule in the lateral RIGHT upper lobe (image 46) and 2 mm nodules in the lateral LEFT lower lobe (image 100) and LEFT upper lobe (image 53). A calcified granuloma is identified in the anterior RIGHT upper lobe. Mild diffuse bronchial wall thickening is noted. There is mild mosaic attenuation.. Streaky linear bands of atelectasis are present in both lungs. There is mild elevation of the LEFT hemidiaphragm. Minimal biapical scarring is present. There is no pleural effusion. The trachea and central airways appear patent, devoid of endobronchial lesion. Lower neck, lymph nodes, and mediastinum: No obvious abnormality in the imaged thyroid gland. A borderline enlarged 8 mm LEFT hilar lymph node is identified (image 90). There are calcified thoracic lymph nodes suggestive of remote granulomatous disease. The esophagus is mildly patulous. Heart, pericardium, and thoracic vessels: The cardiac chambers are normal in size. There is no pericardial effusion or thickening. The main pulmonary artery is normal in calibre. The thoracic aorta is normal in calibre. The arch branching pattern is normal. Scattered coronary artery calcifications are noted, although the study is not optimized for coronary assessment. Bones and soft tissues: Chest wall soft tissues are unremarkable. The vertebral body heights appear symmetric and well-maintained. Upper abdomen: The concurrently performed CT abdomen and pelvis will be reported separately. Pediatric Dental Assistant (topogram) images: No additional findings. Result History CT CHEST W IVCON (Order #[id number]) on 11/25/2022 - Order Result History Report Result Information Status Provider Status Actionable Final result (11/25/2022 5:41 PM) Reviewed Exam Performed Date and Time 11/25/2022 12:18 PM [facility] Agency DIVISION OF RADIOLOGY [address] ABD/PEL W IVCON (Acc#[id number]) (Order [id number]) Patient Info Patient Name Sex Josie Landis ([id number]) Female 1965 11/25/2022 12:44 PM - Radiology, Oru In Impression IMPRESSION: No metastatic disease in the abdomen and pelvis. Physical Chemistry Teacher: RHIANNON Transcribe Date/Time: Nov 25 2022 12:23P Dictated by : BLAYNE JONES MD This examination was interpreted and the report reviewed and electronically signed by: BLAYNE JONES MD on Nov 25 2022 12:42PM EST MRI Report MRI BRAIN WO/W IVCON (Acc#[id number]) (Order [id number]) MRI CERVICAL SPINE WO/W IVCON (Acc#[id number]) (Order [id number]) MRI THORACIC SPINE WO/W IVCON (Acc#[id number]) (Order [id number]) MRI BRAIN WO/W IVCON Exam End: 04/19/2023 12:36 PM (Final result) Narrative: * * *Final Report* * * DATE OF EXAM: Apr 19 2023 12:20PM [facility] 0295 - MRI BRAIN WO/W IVCON / PROCEDURE REASON: multiple diagnoses * * * * Physician Interpretation * * * * EXAMINATION: MRI BRAIN WO/W IVCON, MRI THORACIC SPINE WO/W IVCON, MRI CERVICAL SPINE WO/W IVCON Clinical history provided by the ordering clinician via order question and clinical decision support entries: Radiation necrosis/pseudoprogression, Other (specify in question below), Other (specify in question below). Brain/SPECIAL NEEDS BABYSITTER neoplasm, monitor, Metastatic disease evaluation. 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 with perfusion. Stated history: F/U TO PREV. 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 A follow up MRI 09/25/22 revealed that the SCC lesion has slightly progressed in size. Her stroke neurologist Dr. Pro felt that this does not fit with a stroke and because the neuroradiology reading suggest that this could be a glioma, she referred the patient to our [facility] [place] for evaluation, On 11/02/22, she had a biopsy by Dr. Jovel, neurosurgeon at the [facility]. The pathology is basically non diagnostic. TECHNIQUE: Intracranial mass brain MRI protocol without and with contrast including diffusion and gradient echo images. MR perfusion study was also performed of the entire brain following bolus intravenous administration of gadolinium utilizing dynamic susceptibility-weighted contrast-enhanced acquisition. Routine cervical and thoracic spine MR protocol without and with intravenous gadolinium. MQ: MRBWOW_2 MQ: MRCTLWOW_3 Contrast: 16 mL Dotarem IV COMPARISON: 02/18/2023 brain MRI without and with contrast, 12/09/2022 cervical and thoracic spine MRI without and with contrast. RESULT: BRAIN: Acute Change: No abnormal restricted diffusion to suggest an acute infarct. Hemorrhage: Linear tract of susceptibility associated with the right lateral parieto-occipital approach biopsy in the region of the splenium of the corpus callosum compatible with remote blood byproducts. Otherwise no findings to suggest sequelae of prior parenchymal hemorrhage on the susceptibility weighted images. Mass Lesion/ Mass Effect: Resolution of the previously seen punctate focus of enhancement in the region of the splenium of the corpus callosum, but otherwise stable appearance of the post biopsy changes in the splenium of the corpus callosum with similar heterogenous T2/FLAIR signal hyperintensity extending symmetrically into the forceps major bilaterally. No significant mass effect. Perfusion: Technically adequate, although noncontributory. Chronic Change: Unchanged small foci of T2/FLAIR signal hyperintensity in the supratentorial white matter otherwise, nonspecific, possibly sequelae of minimal chronic microvascular ischemic change. Parenchyma: No significant volume loss for age. The brain parenchyma is otherwise within normal limits of signal intensity and morphology. Ventricles: Normal caliber and morphology. Skull Base: Hypothalamic and pituitary region are grossly normal. Craniocervical junction is normal. No significant marrow replacement process. Vasculature: Major intracranial arterial structures, and dural venous sinuses show typical flow void, suggesting patency by spin echo criteria. Other: No substantial paranasal sinus mucosal thickening. No more than trace fluid in right mastoid air cells. Left mastoid air cells and bilateral middle ear cavities appear clear. The orbits are unremarkable. All maxillary dentition extracted with upper dentures in place and susceptibility artifact along the anterior mandibular region suspected to be related to underlying dental posts and associated hardware. CERVICAL: Counting reference: Craniocervical junction. Alignment: Straightening of the cervical lordosis with preserved vertebral body alignment. Craniocervical junction: Craniocervical junction is normal. Cord: The visualized cord is within normal limits of signal intensity and morphology. No abnormal cord enhancement. Bone marrow signal/fracture: No apparent pathologic marrow infiltration or abnormal enhancement. No findings to suggest sequelae of acute or chronic fracture. Cervical soft tissues: The paraspinal soft tissues are within normal limits. Canal and foramina: C5-C6 shallow central protrusion without substantial spinal canal narrowing. Unchanged C6-C7 disc osteophyte complex contributing to no more than mild spinal canal narrowing. The spinal canal is otherwise widely patent throughout. No substantial foraminal stenosis. THORACIC: Counting reference: Lumbosacral junction. For the purposes of this report, L4-5 is considered the level of the iliac crest and assume there are 5 lumbar-type vertebrae. Anatomic variant: None. Alignment: Alignment is anatomic. Cord: Minimal right ventral cord contour deformity secondary to T7-T8 right central disc protrusion, but otherwise unremarkable signal and morphology of the thoracic spinal cord. No abnormal enhancement. Bone marrow signal/fracture: No apparent pathologic marrow infiltration or abnormal enhancement. Minimal degenerative endplate irregularity along the dorsal midline inferior aspect of T11. No findings to suggest sequelae of acute or chronic fracture. Thoracic soft tissues: The paraspinal soft tissues are within normal limits. Canal and foramina: Unchanged T7-T8 right central disc protrusion abutting and minimally deforming the right ventral cord margin at this level and contributing to no more than mild spinal canal narrowing. No high-grade spinal canal stenosis. The neural foramina appear patent throughout. Localizer images: Few tiny presumed bilateral renal cysts. Impression: IMPRESSION: Resolution of prior seen seen punctate focus of enhancement in the splenium of the corpus callosum biopsy site with otherwise similar surrounding signal changes and no findings to suggest new or progressive abnormality. No abnormal marrow signal changes or enhancement in the cervical or thoracic spine and no high grade spinal canal or neuroforaminal stenosis. Cervical Anatomic Variant: None. Assume 7 cervical vertebrae with counting from the craniocervical junction. Anatomic Thoracic/Lumbar Variant: L4-5 is considered the level of the iliac crest and assume there are 5 lumbar-type vertebrae. Anatomic variant: None. Physical Chemistry Teacher: RHIANNON Transcribe Date/Time: Apr 19 2023 2:31P Dictated by : BLAYNE VINCENT MD This examination was interpreted and the report reviewed and electronically signed by: BLAYEN VINCENT MD on Apr 19 2023 3:00PM EST Results MRI LUMBAR SPINE WO/W IVCON (Acc#[id number]) (Order [id number]) Patient Info Patient Name Josie Velazquez ([id number]) Female 1965 07/19/2023 4:05 PM - Radiology, Oru In Impression IMPRESSION: No suspicious nodular enhancement along the course of the cauda equina nerve roots. No apparent pathologic marrow replacement. Mild degenerative changes, but no high-grade spinal canal stenosis and no high-grade neuroforaminal stenosis. Anatomic Thoracic/Lumbar Variant: None. L4-5 is considered the level of the iliac crest and assume there are 5 lumbar-type vertebrae. Results MRI BRAIN WO/W IVCON (Acc#[id number]) (Order [id number]) Patient Info Patient Name Josie Velazquez ([id number]) Female 1965 07/19/2023 4:05 PM - Radiology, Oru In Impression IMPRESSION: Stable exam. 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 No new or increasing areas of enhancement and no significant mass effect. Assessment & Plan 57 YO RHF who presents back at the end of May 2022, with acute, language dysfunction, visual field deficit and likely alexia, which occur on the day of a cardiovascular procedure, coronary arterystent placement with a brain MRI that reveals a splenium of the corpus callosum abnormality. A follow up MRI 09/25/22 revealed that the SCC lesion has slightly progressed in size. Her stroke neurologist Dr. Pro felt that this does not fit with a stroke and because the neuroradiology reading suggest that this could be a glioma, she referred the patient to our [facility] [place] for evaluation, On 11/02/22, shehad a biopsy by Dr. Jovel, neurosurgeon at the [facility]. The pathology is basically non diagnostic. Symptomatically the patient remains with some language dysfunction, mainly word finding difficulty,right visual field deficit, and likely alexia. DISCUSSION: With the constellation of signs and symptoms, including, aphasia., mainly word finding difficulty, dyslexia, confusion, and visual field deficit on the right in the context of a lesion in the SC, this suggests highly a disconnecting syndrome. -Alexia: The patient's description of inability it understands written word is likely alexia, whichcan be seen in disconnecting syndromes, and seen in lesion of the SCC. Typically seen in a lesion of the occipital lobes but also seen in lesions of the SCC. 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 There are reports of this manifestation as published by Arelis Petit et al (1) where they described a patient with SCC infarct and HH, In this paper their conclusion is a follows (excerpt/verbatim from the publication: We hypothesized that right homonymous hemianopsia was caused by an interrupted transfer of visual information at the splenium of the CC across the hemispheres. In other words, we hypothesized that the visibility would not be defined only in the unilateral striate cortex, but also in the bilateral cortexes across the hemispheres. Aphasia: According to the literature splenium of the corpus callosum lesions can cause cognitive problems, change in behavior, confusion even seizures, including aphasia as reported in the literature. I think that the constellation of symptom could be explained by the location of the lesion, and thefact that the lesion persists radiologically and clinically, suggest that the lesion has not improved and slightly progressing as reported in the MRI from 09/25/22, when compared to the MRI from 07/03/2022 and 06/08/2022. Regarding the etiology of the lesion: The pathology was not conclusive. The initial working diagnosis because of the acute/subacute presentation and in the context that occurred on the day of a vascular procedure, coronary artery stent, a CVA was considered for which thepatient saw cerebrovascular/stroke neurology Dr. Pro. She had CVA work up. However, because of the MRI from 09/25/22, showed slight progression of the lesion, the differential radiological diagnoses was narrowed to possible glioma. Her stroke neurologist Dr. Pro has deemed that this is not astroke and referred her to the [facility] [place] and had a biopsy by Dr. Feliz on 11/04/22, and as I said the pathology is not diagnotic. Considering the presentation the differential diagnosis is: -STROKE Other possibilities: -Glioma -Unlikely encephalitis in light of the timeline, but an indolent encephalitis can still be possible -Venous infarct (6) -Demyelination - due to MS, unlikely due to age but can be seen, and or other inflammatory 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 entities. -Paraneoplastic syndrome. Differential diagnosis from a publication by AJR: Lipoma Glioma: low grade or high grade Lymphoma Juvenile Pilocytic Astrocytoma Demyelinating Diseases -Multiple Sclerosis Progressive Multifocal Leukoencephalopathy Marchiafava-Bignami Disease - unlikely S she does no drink ETOH in large amounts. Infarction - see above. Arteriovenous Malformations - had a CTA by Dr. Pro and showed no abnormalities. Trauma Susac Syndrome (SS) (From [employer] (excerpt/verbatim). SS is a presumed to be caused by autoimmune endotheliopathy , resulting in microinfarcts of the precapillary arterioles of the brain, retina, and inner ear (cochlea and semicircular canals).[2][3] The exact mechanism is unclear, but pathogenesis does resemble the microinfarction of muscle and skin seen in juvenile dermatomyositis. Susac syndrome (SS)) is a rare condition characterized by the clinical triad of encephalopathy, branch retinal artery occlusion (BRAO), and sensorineural hearing loss. However, all three features may not be present concurrently upon initial presentation. This condition may also be referred as small infarctions of cochlear, retinal, and encephalic tissue (SICRET), microangiopathy with retinopathy, encephalopathy, and deafness (RED- M), and retinocochleocerebral vasculopathy.[1][2] Unlikely that the patient has Susac Syndrome, as she does not meet the clinical triad, however thisis still in the differential. After the biopsy the diagnosis is till elusive, and the differential diagnosis from my perspective remains as above, as I cannot exclude a possible entity for sure. 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 I will refer the patient to se Dr. Carrizales who is also a neurologist. Other colleagues that I think will be valuable for her care would be neuro- immunology to get their input as to a possible neuro immunological explanation for her presentation. Neuro ID input would be also helpful. Of course, o follow will with Dr. Pro and I would welcome her continued input, in light that per pathology there is no evidence of glioma. As her case is set to be presented to Brain Tumor Board today, I will wait for any further commentsfrom neuropathology that could shed a better light to the etiology of this lesion. I will also welcome the multidisciplinary input. In the interim Mrs. Landis should have a short interval MRI to define whether this lesion is progressing or regressing. Her last brain MRI is from . REFERENCES: 1-Barber Zuleta H, Franny H, et al. 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 Cureus 13(11): q47095. doi:10.7759/cureus.44647), 2-Paola-Paola Paul eta al. Clinical features of acute corpus callosum infarction patients. Int J Clin Exp Pathol. 2014; 7(8): 2845-4607. 3-Damari Guerrero. 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 Brain Behav. 2019 Nov;9(11): t14509. 4-Conrado Cook and Holly Ley. 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 BMJ Case Rep. 2014; 2014: [id number]. 5-paris Pelayo al. Alexia Without Agraphia: A Rare Entity. Cureus. 2017 Chon; 9(6): e1304. 6-Lewis Sullivan MD; Ruchi Torre MD. Splenium Infarct Due to Cerebral Venous Thrombosis. Arch Neurol. 2007;64(10):1540. 7-paris Bermudez al. Lesions of the Corpus Callosum: MR Imaging and Differential Considerations in Adults and Children. 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 11/17/2022. Recommend to refer her to neuroimmunology for an opinion. -Full spine MRI w and w/o contrast for work up for 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 disease, and or drop metastasis. -CT chest and pelvis (if NEG a PET scan of the brain/full body), she is at risk of lung CA with 40 year H/o smoking -LP with CSF analysis to exclude POS malignant cytology, and or paraneoplastic AB, and or infectious process. 12/09/2022: -issues worsening,gait difficulty, memory and vision. Although her repeat MRI from 12/07/22, shows no change, it is concerning that her symptoms are worsening, with no definite answer. I think that in order to expedite the planned work up and hopefully to get an answer for the patient, I think admitting the patient is what I would recommend. I spoke with Dr. Triston Lozano, neurology staff for primary neurology service, and discussed patient's case. Dr. Lozano, agreed that the patient requires admission to neurology to expedite work up and to elucidate any pathology that may require rather rapid intervention. I explained the above to the patient and family and they agreed. I called admissions, and the patient will be admitted under Dr. Lozano, who has accepted the patient. In addition to the work up and consults as noted below, further work up as Dr. Lozano may deem necessary. The work up will also include LP for CSF analysis. 12/09/22 - 12/15/22. Admitted to for further evaluations -12/10/22 MRI spine: 1. Mild enhancement of the right S1 cauda equina nerve root and equivocal enhancement of the left S1 cauda equina nerve root. 02/18/23 No change in symptoms No new symptoms -MRI brain some improvement in CC lesion, but enhancement at the site/adjacent to the biopsy site, radiology says could be post biopsy changes VS neoplastic/or other entity. -MRI lumbar region, shows other nerve rot enhancement, see above. The significance of these MR change sis unclear but I think that a second LP is warranted. The goalis to exclude the best possible leptomeningeal metastasis. Also the patient has been seen by Dr. Lozano from neuro-immunology and I will welcome his valuable input. 04/28/23 The patient is stable symptomatically. The follow-up MRI of the brain April 19, shows no progression of the corpus callosum lesion. The MRIs of the cervical and thoracic spine shows no cord lesions. Note that, the follow-up from the rheumatology with , and Dr. Villanueva, nonoperative, and the second MTP from March 22, that is [place] diaz. They presented the patient to their neuro immunology multidisciplinary meeting, and it is noted, that the etiology of this lesion is still unclear. They still entertain the possibility of nonspecific informatory etiology. They will follow the patient in 2 months at the time they saw the patient on March 30, 2023, and they indicated, consideration for repeat CSF analysis. Discussion: From my perspective, as already noted, the etiology of the corpus callosum lesion is unclear. Extensive workup has been done as already demented. Although the possibility of autoimmune process, is there, and glioma cannot be excluded. Infectious etiology, also probably low on the differential but cannot be completely excluded, although all the test for infection has been negative. At this point, I agree, will continue clinical and imaging surveillance. I will ask or neuro immunology colleagues, follow the patient, and for them to drive, the decision to do another lumbar puncture for CSF analysis, with testing per their discretion. If they do another lumbar puncture, I think cytology will be also reasonable. I noted, that we will neuro immunology colleagues, reviewed the lumbar MRI, see reports form 02/18/23, and 12/09/22, that reported, enhancing abnormality, but there conclusion was that he was a vein. Referral to be [facility] infectious diseases group, is a consideration, to get their opinion, whether there might be still a possibility of an infectious etiology. Furthermore, I recommend for the patient, to consider a second opinion at the large academic institution preferably. Thus institutions could include, in town, and [facility] institutions in the area, or region would be [facility], [facility], [facility], [facility] in [place], or further away, at [facility] in [facility] or on the [facility], [facility], or one of the Hospitals, at [facility], i.e., [facility]. PLAN: 1-Splenium of the corpus callosum lesion, etiology unclear: S/P biopsy with non diagnostic pathology. Work up so far unremarkable. Plan to do an MRI of the brain w and w/o + perfusion in 3 month's time. -Follow up in my neuro-oncology clinic 1-2 days after the MRI if the MRI is done at a different F, or the same day if the MRI is done at . -If the lesion were to change, and or patient develops symptom, that may be related to the lesion, she may need a 2nd biopsy. The patient to consider a 2nd opinion at a large academic institution, preferably, as above noted. 2-Lumbar MRI 02/18/23 reported as: Mild enhancement of the RIGHT S1 nerve root, not significantly changed in appearance from 12/09/2022, with new mild enhancement of the RIGHT S2 nerve root. Previously queried equivocal enhancement of the LEFT S1 nerve root is no longer definitively seen. The significance of the above is unclear, whether this signifies progression of an entity still of unclear etiology, is not known for now. -As above noted, a repeat lumbar puncture for cytology is warranted. I proposed a 2nd, if NEG a 3rdLP I recommend. As the 2nd, and 3rd LP increased the yield to identify malignant cells. As noted above, lumbar puncture was done on June 2023, with t unremarkable, or negative results, particularly, negative cytology. The repeated lumbar spine MRI w and w/o from June 2023, reveals no abnormal enhancement, and itis unclear whether that enhancement resolved or whether he wants only an artifact all along. For now, we will continue watching the patient clinically only and I do not believe she requires any further spine images from my perspective. 3-Paresthesias of arms/hands. Resolved. -04/19/23 MRI C-spine w and w/o thoracic spine MR w and w/o contrast, NEG -MRI of the lumbar spine from June 2023, is also negative for any enhancement or changes to just drop metastases -Continue clinical surveillance The patient/family was advised to call if symptoms worsen and she may need to be evaluated sooner, or go to the ED. She has been enrolled, and the physical therapy program for her leg pain. Dr. Lozano has ordered electrophysiological evaluation supportive leg paresthesias. 4-Follow up with neuroimmunology: With Dr. Lozano. 5-Referral to Neuro ID for opinion whether the SCC lesion is of infectious etiology, i.e., indolentprocess, and recommendations on further work up. The patient has been seen by the neuro infectious diseases with Dr. Pinedo and has a scheduled follow-up with his service. 6-Referral to neuro-ophthalmology: Was seen by neuro-ophthalmology 12/15/22. 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 To follow up with neuro-ophthalmology. 7-Follow with Dr. Pro from cerebrovascular/stroke neurology. 8-Follow with her project control manager for her CAD, S/p coronary artery stents. 9-Follow with her PCP for general medical care/coordination of care, Dr. Cool. 10-Not to drive a car or any other motorized vehicle, and not to engage in activities that could place her at risk to her and or others of injury is she were to have episodes of confusion. 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 For now, as she had episodes ofconduction which have not been clarified yet, also she has a visual field deficit on the right. Herdriving privileges to be resumed depending on her progress/entities found. 11- CT chest:11/25/22: 1. No suspicious primary lung malignancy noted. 2. Few scattered small pulmonary nodules measuring less than 5 mm. Comments: If there are risk factors for lung malignancy, a follow-up chest CT exam could be obtained in 12 months NOTE: the patient has risk factor for lung CA she has been smoking tobacco for many yeas. -CT chest/abdomen and pelvis w and w/o contrast No metastatic disease in the abdomen and pelvis. 12/14/22 PET scan: No hypermetabolic lesions seen. PCP to do follow up CT chest, in 6-12 months time. 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 Based on her duties, I think Mrs. Landis, would not be able to complete the task she reports she needs to do for ehr job. She says she will be filing for disability, and we will support that. She should also seek help from her PCP. In the end the patient and family verbalized understanding of the above, they had questions which Madhavi I answered to their satisfaction and agreed with these recommendations and had no further questions or concerns for the moment, but I encourage them to call the [facility] with any questions or concerns. I spent a total of 45 minutes on the date of the service which included preparing to see the patient, at least 50% of [id number] patient care, completing clinical documentation, obtaining and/or reviewing separately obtained history, performing a medically appropriate examination, counseling and educating the patient/family/caregiver, ordering medications, tests, or procedures, communicating with other HCPs (not separately reported), independently interpreting results (not separately reported), communicating results to the patient/family/caregiver and care coordination (not separately reported). This is a high MDM. Codie Soto MD Staff Neuro-Oncologist [facility] [place], [place] CC: CC -Carlos Jovel MD, Neurosurgery, [facility], [facility], [facility] CC: Rad Pro DO, Vascular Neurology, [facility] CC: Dr. Solis Cool DO, PCP, [address] [place] [address] [address], [place] [id number], ; -Triston Lozano MD, Neurology/Neuroimmunology, [facility] -David Rios MD, Neuro-ophthalmology, [facility] -Americo Haney DO, Infectious Disease, [facility] -Rich Gudino MD, Neuro-Immunology, Neurology, [facility] -Berto Albarado MD, Neuro-Immunology, Neurology, [facility] -Jim Pinedo MD, Neuro Infectious Diseases, [facility] in this encounterC[facility] Instructions* Patient Instructions* Pamela Jeffries DO - 07/21/2023 11:01 AM EDT Repeat MRI in 3-4 months Please schedule EMG before next Dr. Lozano visit if able, particularly with leg symptoms Please let us know if new or worsening symptoms Follow-up with Dr. Lozano documented in this encounterCincinnati [facility]03[facility] History of Present illness Narrative* Triston Lozano MD - 07/21/2023 10:00 AM EDT Images from the original note were not included. [facility] FOLLOWUP/ESTABLISHED PATIENT VISIT Also followed by: Patient Care Team: Solis Cool DO as PCP - General (Internal Medicine) Corrie Alvares as Referring (Cardiology) Rad Pro DO (Neurology) Christine Aguayo LSW as Rat Exterminator (Hematology/Oncology) PRINCIPAL NEUROLOGIC DIAGNOSIS: Abnormal brain lesion (non-enhancing corpus callosum lesion and several possible HEIDI lesions); Possible right cauda equina enhancement although likely related to vessels and not pathological DISEASE SUMMARY Date of onset: May 2022 Date of diagnosis of MS: N/A Disease course at onset: Relapsing-Remitting Current disease course: Progressive without relapses Previous disease therapies: - Dexamethasone taper 11/05 - 12/04/2022 Current disease therapy: None Most recent MRI brain: - 07/19/2023 (stable) - 04/19/2023 (stable, resolution of previously noted enhancement vs 02/18/2023) - 02/18/2023 (decreased conspicuity and intensity with some improvement in CC lesion with new focusof enhancement adjacent to biopsy site vs. 12/07/2022) - 12/07/2022 (Non-enhancing CC lesion, otherwise several other non-enhancing HEIDI lesions) Most recent MRI cervical spine: 04/19/2023 (no cord lesions) Most recent MRI thoracic spine: 04/19/2023 (no cord lesions) Most recent MRI lumbar spine: 07/19/2023 (interval resolution of enhancement of right S1 nerve root 02/18/23 and interval resolution of mild enhancement of right S2 12/10/2022 ) CSF: - 12/10/2022 (RBC 1, WBC 2, Protein 81, IgG index 0.54, IgG synthesis rate 1.7, OCBs negative, ENC2 negative, HSV PCR negative, MNGS negative, cytology negative) - 03/22/2023 (RBC 2, WBC 16 [95% lymph], Protein 89, Glucose 70, VDRL negative, Lyme negative, Flowcyto negative) - 06/18/2022 (RBC 0, WBC 17 [95% lymph], Pro 62, IgG index 0.53, OCB negative, ENC2 negative, cytology negative; JCV negative, Lyme Ab negative, Whipple's negative) JCV serology result and date: None Brain biopsy: 11/04/2022 right corpus callosum (minute focus of atypical cells in a reactive background; gliosis with scattered macrophages) Serum: - 2022: ENS2 negative, CDS1 negative, HIV negative, lyme negative, syphilis negative, ESR/CRP wnl, TSH wnl, B12 wnl, no definite M protein identified on immunofixation - 2023: ANCA negative, IL-2 1187 Systemic imaging: - 11/25/2022 (CT chest, abdomen, and pelvis few scattered pulmonary nodules) - 12/14/2022 (PET whole body negative; CC lesion without significant uptake) CHIEF COMPLAINT: Review diagnostic testing results and discuss implications INTERVAL HISTORY: -saw Dr. 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 Usual treating team: No specialty comments available. The patient is accompanied by daughter, Beena. The patient was last seen 06/01/23 via [facility], currently Not on DMT. Since the patient's last visit the patient reports overall feeling worse because of leg pain. Issues with current therapy: Not currently on disease modifying therapy. Neuro-QoL Functions (higher=better functioning) Flowsheet Row Office Visit from 07/21/2023 in [facility] from 06/01/2023 in [facility] Office Visit from 03/30/2023 in [facility] Upper Extremity Domain T Score 56.6 44 44.04 Lower Extremity Domain T Score 44.4 42 44.4 Cognitive Function Domain T Score 36.5 33 25.15 Positive Affect Well Being T Score -- -- -- Ability To Participate In Social Roles T Score 44.81 41 39.9 Satisfaction With Social Roles T Score 47.34 43 44.64 Neuro-QoL Symptoms (higher=worse symptoms) Flowsheet Row Office Visit from 07/21/2023 in [facility] from 06/01/2023 in [facility] Office Visit from 03/30/2023 in [facility] Sleep Domain T Score 67.84 57 62.43 Fatigue Domain T Score 52.3 55 51.85 Anxiety Domain T Score 60.04 69 68.63 Depression Domain T Score 58.04 60 56.56 Stigma Domain T Score 55.52 61 61.15 Emotional Behavior Dyscontrol T Score -- -- -- has a past medical history of Asthma due to seasonal allergies (11/02/2022), Basal cell carcinoma (BCC) of cheek (2020), Bipolar affective ([facility]), Coronary artery disease, Coronary artery disease involving wiyot coronary artery of wiyot heart without angina pectoris (11/02/2022), Gastroesophageal reflux disease without esophagitis (11/02/2022), Hyperlipidemia, Primary hypertension (11/02/2022), Seizures ([facility]) (11/02/2022), and Stroke ([facility]). has a current medication list which includes the following prescription(s): probiotic, isosorbide mononitrate er, aspirin, enteric coated, albuterol hfa, evolocumab, ondansetron, pantoprazole dr, acetaminophen, senna-docusate, hydrochlorothiazide, bupropion xl, clonazepam, trazodone, vilazodone, losartan, metoprolol succinate er, ezetimibe, cariprazine, and iv contrast. EXAM: BP 142/93 Pulse 64 Ht 170.2 cm (5' 7) Wt 87.1 kg (192 lb) BMI 30.07 kg/m Multiple Sclerosis Performance Test Flowsheet Row Office Visit from 07/21/2023 in [facility] Office Visit from 03/30/2023 in [facility] Processing Speed Total Number Correct 30 38 Low-contrast letter acuity test-2.5 percent opacity 34 31 Low-contrast letter acuity test-100 percent opacity 56 58 Dominant hand -- -- MDT Left Hand Time 43.91 29.61 MDT Right Hand Time 24.38 24.74 Walking Speed Test (25 feet) 5.52 6.81 General Appearance: well appearing, in no acute distress MSK: TTP over left bursa, aching over left IT band Mental status evaluation during the interview and examination showed normal level of consciousness,language, memory, praxis, and higher intellectual function Affect: Normal Visual Acuity: 20/25 OD 20/20 -1 OS Visual gupta notable for right HH. Extraocular movements: full, without AYANA Facial sensation: Intact bilaterally Facial movements: Intact bilaterally Speech: normal Muscle tone: Right arm spasticity: None Right leg spasticity: None Left arm spasticity: None Left leg spasticity: None Muscle strength (#/5): Right Left Upper Extremity: Deltoids 5 5 Biceps 5 5 Triceps 5 5 Wrist extension/flexion 5 5 Finger extension/flexion 5 5 Lower extremity: Iliopsoas 5 5 Quadriceps 5 5 Hamstrings 5 5 Tibialis anterior 5 5 Gastrocnemius 5 5 Reflexes: brachioradialis +++ brachioradialis +++ biceps +++ biceps +++ triceps ++ triceps ++ patellar +++ patellar +++ Achilles ++ Achilles ++ plantar response down plantar response down Coordination: Finger-nose: no dysmetria; coordination intact Heel-bergeron: no dysmetria; coordination intact Sensory Perception: Intact to light touch, pinprick, propioception in bilateral lower extremities. Diminished vibration (7/8 BLE) Standing balance: Normal Romberg: With mild sway but correction Standard gait: left leg antalgic, slightly shorter step. Assistive device: independent Tandem walking: Normal RESULTS: CBC + Diff Component Value Date WBC 4.74 12/15/2022 HB 12.2 12/15/2022 HCT 37.2 12/15/2022 PLT 179 12/15/2022 ABSLYMPH 1.50 12/09/2022 CMP Component Value Date AST 14 11/20/2022 GLUC 91 06/01/2023 BUN 9 12/15/2022 CREAT 0.95 12/15/2022 NA 137 12/15/2022 K 3.9 12/15/2022 CHLOR 104 12/15/2022 ALT 29 11/20/2022 CSF 06/18/23: RBC 0, WBC 17, Pro 62 IgG index 0.53 OCB neg ENC2 neg Cytology negative for malignant cells; chronic inflammation present Bacterial/fungal cx/stain neg JCV neg Lyme Ab neg Whipple's neg MRI Results: MRI brain w/wo 07/19/23: posterior splenium T2/FLAIR hyperintensity without associated enhancement or mass effect; stable in comparison to 04/2023 MRI MRI lumbar spine w/wo 07/19/23: no clear enhancement of nerve roots. ASSESSMENT/PLAN: 57 year old right handed female with abnormal MRI brain and other relevant PMHx of CAD s/p stent placement (4 stents total, latest stent placed May 2022), HTN, HLD, bipolar disorder, seizure-like episodes, and tobacco use history presenting for follow up for evaluation of abnormal brain lesion (corpus callosum lesion). In brief review of clinical course, she developed right HH, alexia, aphasia, and confusion post recent stent placement in May 2022 (in retrospect patient may have had some mild memory impairment for the preceding 6 months). MRI brain for the first time in Jun 2022 showed a CC FLAIR lesion without GdE initially attributed to daly-procedural infarct but noted to have progression in size of lesion in August 2022 which prompted referral to brain tumor s/p right stereotactic biopsy which was non-diagnostic. She was admitted to hospital in Dec 2022 due to worsening of symptoms with extensive evaluation including PET scans, CT chest/abdomen/pelvis without clear primary malignancy or FDG uptake and CSF without evidence of inflammation, malignancy, or infections (including MNGS). Neuroaxis imaging demonstrated possible enhancement in right S1 nerve root. Repeat imaging again in January 2023 showed stable lesion, persistent enhancement of right S1, and new enhancement of right S2. CSF was repeatedwith neuro-oncology which showed new lymphocytic pleocytosis. Today, she remains stable from a neurologic perspective and repeat MRI brain and lumbar in July 2023 was stable. Overall, the etiology of the CC lesion remains unclear despite extensive evaluation but inflammatory/malignancy etiologies remain highest on the differential. At this time, we would recommend holding off on immunotherapy with close monitoring and additional diagnostic testing as outlined below. PLAN: - EMG testing given the prior nerve root enhancement and LE pain (ordered in May 2023, not yet completed) - Continue to follow with Dr. Soto of neuro onc, has upcoming appt today - Continue to follow with Dr. Pinedo of neuro ID - Repeat brain MRI w/wo in 3 months - Patient informed to make us aware of new or worsening neurologic symptoms - Follow up in [address] Lozano post MRI Office Visit on 07/21/23 MRI BRAIN WO/W GEOV[place]ON Pamela Jeffries DO Neuroimmunology Fellow (PGY-5) In the service of staff, Dr. Triston Lozano [facility] STAFF PHYSICIAN NOTE OF PERSONAL INVOLVEMENT IN CARE I have reviewed the progress note obtained and documented by the fellow and I personally participated in the rose components. I have discussed the case and management of the patient's care. The following comments revise or confirm relevant rose components of their note. IMPRESSION: This is a 57 year old female with a large corpus callosum lesion s/p biopsy showing atypical cells with no confirmation of malignancy. We have been following from neuro-immunology perspective. She is clinically stable and has continued to improve. No new symptoms and repeat MRI of the brain is stable. Repeat CSF showed lymphocytic pleocytosis. Lumbar nerve enhancement has resolved. She is still pending MRI. We will continue monitoring for now repeat MRI in 3 months. Will see neuro-oncology today. Follow-up with neuro-ID planned. All questions answered. SIGNATURE: Triston Lozano MD PhD DATE of SERVICE: July 23, 2023 documented in this encounterC[facility] History of Present illness Narrative* David Justice, RT(R) - 07/19/2023 1:00 PM EDT Radiology Service Progress Note DATE OF SERVICE: July 19, 2023 TIME: 1:09 PM PATIENT IDENTITY VERIFICATION COMPLETED USING TWO (2) STANDARD IDENTIFIERS: Name and Date of confirmed by patient verbally. FALL SCREENING: Has the patient had 2 falls in the last year or 1 fall with injury or currently using an Ambulatory Assistive Device (Walker, Cane, Wheelchair, Crutches, etc.)? No PATIENT GENDER DATA: Female. status: : No status: NO. PATIENT RELEVANT IMPLANT DATA REVIEWED: Yes PATIENT PRESENTS WITH AN IMPLANTABLE OR ATTACHED GRILL ASSOCIATE: No ALLERGIES: Reviewed and unchanged CONTRAST ALLERGY: NO. EXAM: MRI - CONTRAST TYPE: GROUP II PERIPHERAL IV DATA: Ambulatory: A peripheral IV was started in the Right antecubital site with a Angio cath: 20 gauge. RADIOLOGY DEPARTMENT: MR; Exam(s) Completed: Head: Routine Brain with Perfusion Spine: Lumbar spine SIGNATURE: RT Hayden(R) PATIENT NAME: Josie Landis DATE: July 19, 2023 TIME: 1:09 PM documented in this encounterCincinnati [facility]02[facility] History of Present illness Narrative* Jim Pinedo MD - 06/18/2023 11:00 AM EST ID STAFF Lab [place] from 06/09/23 showed elevated SIL2 R in serum, rest negative Component Latest Ref Rng & Units 06/09/2023 c-ANCA Fluorescence Negative Negative p-ANCA Fluorescence Negative Negative Interpretation (ANCA) Negative for C-ANCA and P-ANCA by indirect immunofluorescence. Staff Review (ANCA) No review performed. CCP Antibody IgG Qualitative Negative Negative CCP Antibody, IgG <20 Units <15 CATRACHO <=52 U/L 45 Vit D1,25 Dihydroxy 19.9 - 79.3 pg/mL 61.3 Interleukin-2 Receptor, Serum 175.3 - 858.2 pg/mL 1187.2 (H) STEVAN Negative Negative C3 86 - 166 mg/dL 123 C4 13 - 46 mg/dL 18 Rheumatoid Factor <16 IU/mL <10 Pt scheduled for LP today Case discussed with Dr Gudino in Neurology today The IL2 R increase is nonspecific but c/w some degree of ongoing inflammation (last LP with mild CSF pleocytosis and elevated protein). Unusual presentation for neurosarcoid and may be reflecting some other disorder. Her history suggests a stroke but this ongoing inflammatory labs not c/w stroke one year ago. Have added SIL2-R to LP labs today FU in 1-2 weeks, video visit Jim Pinedo MD documented in this encounterCincinnati [facility] History of Present illness Narrative* Jim Pinedo MD - 06/09/2023 10:36 AM EST Images from the original note were not included. INFECTIOUS DISEASE New Patient Visit Date of Service: 06/10/23 Chief Complaint: brain lesion History of Present Illness Josie Landis is a 57 year old female with past medical history significant for CAD s/p x5 PCI, HTN, HLD, COPD, active smoker, and bipolar disease (on tegretol for a long time but discontinued after the brain lesion was discovered) who presents for evaluation of a lesion found in the splenium of the corpus callosum. Patient underwent a heart catheterization in May 2022 where 2 heart stents were placed. She hadan intraoperative stroke that affected her right eye vision. 1 week after this incident, she reports feeling wacky but attributed this to the new medications that she started on after the stent placement. She describes this as feeling dizzy (both lightheaded and room spinning sensation), uncoordin ated, and confused. She also noticed she had significant loss of short-term memory. This was was all a very acute onset. She also noticed migratory joint pains in the midst of this that would involveher ankles, knees, big toe, and wrists. She did not have any swelling or significant morning stiffness, just the pain. During this time she did not have any fever, chills, weight loss, lymphadenopathy or night sweats. She has undergone multiple MRIs and eventually a brain biopsy which was nondiagnostic. Recently shehas been feeling depressed and lethargic. She still is having significant short-term memory loss somuch so that her family does not allow her to drive or go places alone. She is also still having aches and pains in multiple joints and feels like that may be getting worse. 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 She goes [place] does not ever put her head under the water. No bug bites or ticks that she has noticed. She took a trip to [place] prior to this but no international travel ever. She has 2 pet turtles and recently got a puppy in March. 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 She was told this when she was around 16 and she describes that they performed a test that showed decrease saliva. She denies dry eyes. Review of Systems CONSTITUTION: Negative for: Fever and Recent weight change HEENT: Positive for: Dry mouth Negative for: Mouth sores and Trouble swallowing RESPIRATORY: Positive for: Cough (productive) and Shortness of breath (when she walks a lot and going up the steps) Negative for: Pain with breathing and Coughing up blood GASTROINTESTINAL: Negative for: Diarrhea, Heartburn (had her esophagus fixed for GERD) and Abdominal pain MUSCULOSKELETAL: Positive for: Arthralgias, Muscle weakness (wrists) and Morning Joint Stiffness (less than 30 min) Negative for: Joint swelling NEUROLOGICAL: Positive for: Headaches (intermittent, sinus related) and Memory loss Negative for: Numbness SKIN: Negative for: Rash, Hair loss and Nail changes EYES: Positive for: Visual disturbance Negative for: Eye redness and Eye dryness CARDIOVASCULAR: Positive for: Chest pain (chronic) GENITOURINARY: Negative for: Dysuria, Hematuria and Ulcerations HEMATOLOGIC/LYMPHATIC: Positive for: Swollen glands(past 6 months that she attributes to having a dog even though she is allergic) PMH: as above Surg: brain biopsy, gallbladder, hysterectomy Fam Hx: mom: heart disease and maybe bipolar dad: heart disease, HTN Daughter: HTN Granddaughter: opsoclonus myoclonus syndrome Social: +tobacco use, lessthan 1/2 a pack a day, no EtOh, + THC gummies Allergies: PCN: never actually had it ,it is in there because her mom and sister are allergic Current Outpatient Medications Medication Sig lactobacillus combination no.4 (PROBIOTIC) 3 billion cell cap isosorbide mononitrate ER (IMDUR) 30 mg 24 hr tablet Take 1 tablet by mouth every afternoon. aspirin, enteric coated (ASPIRIN, ENTERIC COATED) 81 mg EC tablet Take 1 tablet by mouth every afternoon. albuterol HFA (PROVENTIL HFA, VENTOLIN HFA) 90 mcg/actuation inhaler Inhale as instructed. evolocumab 140 mg/mL subcutaneous pen injector (REPATHA SURECLICK) Inject 140 mg subcutaneously every 2 weeks. ondansetron (ZOFRAN) 8 mg tablet Take 1 tablet by mouth every 8 hours as needed for nausea/vomiting. pantoprazole DR (PROTONIX) 40 mg tablet Take 1 tablet by mouth once daily. acetaminophen (TYLENOL) 325 mg tablet 2 tablets by ORAL/FEEDING TUBE route every 4 hours as needed for pain. senna-docusate (SENNA-S) 8.6-50 mg per tablet 1 tablet by ORAL/FEEDING TUBE route twice daily. hydroCHLOROthiazide 12.5 mg tablet Take 12.5 mg by mouth once daily. buPROPion XL (WELLBUTRIN XL) 300 mg 24 hr tablet Take 300 mg by mouth every morning. clonazePAM (KLONOPIN) 0.5 mg tablet Take 0.5 mg by mouth twice daily as needed for anxiety. traZODone (DESYREL) 100 mg tablet Take 300 mg by mouth daily at bedtime. vilazodone (VIIBRYD) 40 mg tablet Take 40 mg by mouth once daily. losartan (COZAAR) 25 mg tablet Take 25 mg by mouth once daily. metoprolol succinate ER (TOPROL XL) 25 mg 24 hr tablet Take 12.5 mg by mouth once daily. ezetimibe (ZETIA) 10 mg tablet Take 10 mg by mouth once daily. cariprazine (VRAYLAR) 3 mg capsule Take 3 mg by mouth once daily. No current facility-administered medications for this visit. PHQ-9 11/24/2022 01/09/2023 06/01/2023 PHQ-2 Score 4 6 3 PHQ-9 Score 15 22 17 Physical Exam BP 133/84 Pulse 74 Temp 36.2 C (97.2 F) (Temporal) Resp 20 Wt 90.1 kg (198 lb 11.2 oz) SpO2 99% BMI 31.12 kg/m Physical Exam Constitutional: General: She is not in acute distress. Appearance: She is not ill-appearing. HENT: Head: Normocephalic and atraumatic. Mouth/Throat: Mouth: Mucous membranes are moist. Pharynx: No oropharyngeal exudate. Eyes: General: Visual field deficit (Right superior quadrantanopia) present. Extraocular Movements: Extraocular movements intact. Conjunctiva/sclera: Conjunctivae normal. Pupils: Pupils are equal, round, and reactive to light. Cardiovascular: Rate and Rhythm: Normal rate and regular rhythm. Pulmonary: Effort: Pulmonary effort is normal. Breath sounds: Normal breath sounds. No wheezing. Abdominal: General: There is no distension. Palpations: Abdomen is soft. Tenderness: There is no abdominal tenderness. Musculoskeletal: General: No swelling or tenderness. Right knee: Crepitus present. Left knee: Crepitus present. Right lower leg: No edema. Left lower leg: No edema. Lymphadenopathy: Cervical: No cervical adenopathy. Right cervical: No superficial or posterior cervical adenopathy. Left cervical: No superficial or posterior cervical adenopathy. Skin: General: Skin is warm and dry. Findings: No rash. Neurological: Mental Status: She is alert and oriented to person, place, and time. Cranial Nerves: No dysarthria or facial asymmetry. Sensory: Sensation is intact. Motor: Motor function is intact. No weakness. Coordination: Romberg sign negative. Xsdujn-Udvm-Uacdqf Test normal. Gait: Gait is intact. Deep Tendon Reflexes: Reflex Scores: Tricep reflexes are 2+ on the right side and 2+ on the left side. Bicep reflexes are 2+ on the right side and 2+ on the left side. Patellar reflexes are 2+ on the right side and 2+ on the left side. Achilles reflexes are 2+ on the right side and 2+ on the left side. Psychiatric: Mood and Affect: Mood normal. Behavior: Behavior normal. Labs/Imaging Recent labs and imaging reviewed. Pertinent findings listed below: MRI Brain 04.19.23 IMPRESSION: Resolution of prior seen seen punctate focus of enhancement in the splenium of the corpus callosum biopsy site with otherwise similar surrounding signal changes and no findings to suggest new or progressive abnormality. No abnormal marrow signal changes or enhancement in the cervical or thoracic spine and no high grade spinal canal or neuroforaminal stenosis. PET scan 12/14/22: IMPRESSION: Brain: No hypermetabolic lesions in the brain to suggest metastases or FDG avid neoplastic process. The lesion in the posterior corpus callosum demonstrated no significant FDG uptake. The findings compatible with low-grade neoplasm or nonneoplastic process. LP: 12/10/22: TNC 2 03/22/23: TNC 19 9 9% lymphocytes Latest Reference Range & Units 12/10/22 15:20 03/22/23 09:20 CSF Tube Nbr Tube 4 Tube 4 Tube 1 Color, CSF Colorless Colorless Colorless Colorless Colorless Supernatant Color, CSF Colorless Colorless Not Indicated Not Indicated Not Indicated Clarity, CSF Clear Clear Clear Clear Clear Supernatant Clarity, CSF Clear Clear Not Indicated Not Indicated Not Indicated RBC, CSF 0 - 5 cells/uL 0 - 5 cells/uL 1 2 11 (H) Total Nucleated Cells, CSF 0 - 5 cells/uL 0 - 5 cells/uL 2 16 (H) 19 (H) DIF TTL, CSF cells counted cells counted 100 100 100 Lymph%, CSF 50 - 90 % 50 - 90 % 90 95 (H) 99 (H) Mccracken%, CSF 10 - 50 % 10 - 50 % 10 5 (L) 1 (L) Protein, CSF 15 - 45 mg/dL 81 (H) 89 (H) Glucose, CSF 40 - 70 mg/dL 64 70 (H): Data is abnormally high (L): Data is abnormally low 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: Routine culture neg Fungal culture/cryptococcal antigen neg AFB culture negative Lyme PCR neg T cell receptor gene rearrange, V ([facility]): negative Immunoglobulin gene rearrange, V ([facility] labs): negative HIV neg 12/11/22 CSF 12/10/22 Routine culture negative HSV PCR CSF negative VDRL CSF negative Fungal CSF culture negative AFB CSF culture negative Cryptococcus CSF negative CSF metagenomic Next Gen sequencing negative Histoplasma ag urine 12/10/22 negative syphilis IgG blood 11/20/22 negative Lyme ab late (blood) 11/20/22: neg HEIDI virus PCR (blood) 11/20 negative ESR/CRP normal Assessment/Plan Josie was seen today for infection follow up. Diagnoses and all orders for this visit: Brain lesion - CATRACHO/ANGIOTENSIN BLD; Future - VITAMIN D1 25-DIHYDR; Future - INTERLEUKIN 2 RECEPTOR, SOLUBLE, SERUM; Future - STEVAN BY IFA WITH REFLEX; Future - ANTI NICK ID; Future - ANTI NEUTRO CYTO AB; Future - C3 COMPLEMENT BLD; Future - C4 COMPLEMENT BLD; Future - RHEUMATOID FACTOR BL; Future - CCP ANTIBODY IGG; Future In summary, this is a 57 year old female with past medical history significant for CAD s/p x5 PCI, HTN, HLD, COPD, active smoker, and bipolar disease (on carbamazepine for a long time but discontinued after the lesion was discovered), and CVA who presents for evaluation of a lesion found in the splenium of the corpus callosum. She has undergone multiple MRIs and a brain biopsy which was nondiagnostic. She has also had 2 LPs which were unrevealing excluding the increased cell count of 19 on the 2nd LP. She is scheduled to have a third lumbar puncture this month. Even though a stroke is quite rare to this area, her timeline could be pointing towards this. She had a intraoperative stroke during her heart catheterization and then 1 week later she presents with the constellation of symptoms that are still present today. Her presentation was very acute and she was not experiencing any of the symptoms prior to her catheterization. There have been multiple case reports citing COVID-19 infection as an inciting factor for infarction of the splenium of the corpus callosum however she only reports having COVID in ~2019 and no repeat infection that she knows of prior to the lesion. Other infections seem to be less likely. She has had an extensive workup that has been unrevealing for an infectious source. In addition it would be unlikely for an infectious lesion to have not progressed without any treatment over the past year. Another thought would be autoimmune conditions such as Sjogren's(due to the history of dry mouth and decreased saliva production), SLE, or sarcoidosis. We have ordered an extensive autoimmune rheumatologic panel. You can see an isolated lesion of the splenium of the corpus callosum with metronidazole and carbamazapine use. Patient does report using metronidazole occasionally over the past years however she has not had consistent use of the medication. She was on carbamazepine for many years prior to this but it has been discontinued. Marchiafava-Bignami disease (MBD) was considered however less likely since patient does not use alcohol. Plan: As above Will follow-up the results of the upcoming lumbar puncture and repeat MRI Tere Wilson MD Rheumatology Fellow [facility] [place] The above patient was seen and discussed with Infectious Disease Staff, Dr. Pniedo ++++++++++++++++++++++++++++++++++++++++++++++++++++++++++++++++++++++++++++++ INFECTIOUS DISEASES STAFF June 09, 2023 Details well outlined by Dr. Wilson above (Rheumatology Fellow on ID service). We saw the patient together and rose elements confirmed. Her note has been edited above by me. I have personally interviewed and examined the patient. I have personally verified elements of the exam listed above. Interval changes are as noted. I have personally and independently reviewed X ray images, CT and MRI scans (see data section). I have personally reviewed the problem list above and concur. Changes, if any, are noted. I have personally reviewed the plan list above and concur. 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 S/P JUAN ANTONIO to mid circumflex 05/21/22 - visual loss R peripheral field with the PCI 05/21/22 (same day) - additional symptoms starting immediately post PCI-- mild confusion loopy, dyslexia starting same day as PCI (unable to read, especially for numbers), stumbling especially R foot, WFD at times. - chest pain, hospitalized [facility] 06/02/22; cardiac enzymes negative, pharmacologic stress test negative with normal EF. - hospitalized [facility] 06/08-06/09/22 with increasing in confusion x 6 days, expressive aphasia, problems driving. Concern with stroke. MRI 06/08 with faint diffusion restriction in the splenium of the corpus callosum, with some faint ADC hypointensity and FLAIR changes in subcortical right and left white matter without diffusion restriction. Radiology diff dx demyelination vs acute ischemia. CTA head and neck negative. TTE with PFO (size not quantifeid); normal EF 65%. Dx'd with stroke, ASA and plavix, plan 30 day event monitor - outside ophthalmology exam reportedly with right superior quadrantanopia (had optometry exam 06/13/22 with RHH, not quandrantanopia) - stroke neuro eval [facility] 06/24/22 (Dr Pro). initial impression post procedural stroke after heartcath. However unusual appearance of CC lesion and uncommon location for CVA. Ddx also includes neoplasm, infectious, autoimmune. The RHH on exam, not explained by CC lesion. - MRI 07/23/22; corpus callosum splenium nonenhancing expansile lesion with internal cystic/necroticfoci, grossly stable compared with 06/08/2022. ? sequela of a 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 process (noting additional patchy foci of signal abnormality in the cerebral white matter) versus other inflammatory, post infectious or cytotoxic process. low-grade neoplasm possible - MRI 09/25/22: Infiltrative process in the splenium the corpus callosum - T2/FLAIR confluent hyperintensity in splenium extending to either side of midline, increased over prior MRIs x 2. Minimal mass effect. Small central cystic focus in midline, with minimal enhancement. No DWI restriction. Concern with glioma or other malignancy - Neurosurg eval (Dr Jovel) 10/27/22. Pt reported difficulty with reading and writing, loss of peripheral vision on the right side, balance problems, difficulty recalling recent events, some word finding difficulties, and inability to work/drive. - Stereotactic Brain biopsy 11/04/22-- R corpus callosum, Minute focus of atypical cells in a reactive background; Gliosis with scattered macrophages. biopsy shows focal hypercellularity at one corner(less than 5% of tissue submitted) with atypical angulated elongated nuclei and fibrillary background suspicious for glioma. Unfortunately this area is only present on the frozen section slide and iscut through on the resubmitted tissue. It is not present in any of the other slides/block submitted. The remainder of the specimen shows white matter with scattered foamy macrophages and gliosis. GMS stains negative for fungi, Gram stain negative - D/C'd home on decadron taper: 8 mg BID x5 days (11/05-11/09), 6 mg BID x5 days (11/10-11/14), 4 mg BIDx5 days (11/15-11/19), 2 mg BID x5 days (11/20-11/24), 2 mg once daily x5 days (11/25-11/29), 1 mg once daily x5 days (11/30-12/04). 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 [place] the [facility] could be related to splenium CC lesion (prior case reports). Etiology of lesion unclear, still possibly stroke, glioma, unlikely encephal itis, demyelination due to MS, paraneoplastic. Consult to [facility], neuro- ophtho, neuro-ID. - ASHTON 11/20/22 included negative HEIDI virus PCR (blood), syphilis IgG, Lyme antibody late - CT C/A/P 11/25/22: Few scattered small pulmonary nodules measuring less than [address] abd negative - MRI with CBV map 12/07/22 unchanged nonenhancing mildly expansile splenial lesion. No contrast enhancement. Susceptibility artifact along biopsy tract. No evidence of leptomeningeal disease. No elevated CBV in the spleen the corpus callosum or elsewhere in the brain. - admitted 12/09/22 with worsening memory, balance, and sleep, word-finding difficulty, in addition to persistent visual field deficit. Sx had been slowly worsening up until the brain biopsy, after which the worsening significantly accelerated. Neuro felt Differential diagnosis included malignancy vsmetabolic vs inflammatory vs infectious. - ID consult 12/10/22 (Dr Americo Haney) Differential includes Mycoplasma post- infectious myelitis, Glioma, Lymphoma, histoplasmosis - LP 12/10/22 with OP 15 cm H2O, TNC 2, pro 81. Multiple studies negative (see above), including negative CSF Next Gen sequencing. (fungal abs in CSF, universal AFB PCR, Tourtellotte's ordered but notrun). Observed off antibiotics given low suspicion for infection - MRI spinal cord 12/10/22 showed mild enhancement of the right S1 cauda equina nerve root and equivocal enhancement of the left S1 cauda equina nerve root, both nonspecific - PET whole body 12/14 neg; PET brain negative; The lesion in the posterior corpus callosum demonstrated no significant FDG uptake. Radiologist felt the findings compatible with low-grade neoplasm or nonneoplastic process. - Neuro-ophtho 12/15/22: Incongruous right homonymous hemianopsia, possibly stroke in lateral geniculate body. This would account for the relatively normal imaging and Visual field findings. - other ASHTON: negative HIV, ENS-2, WSR, CRP - FU visit stroke neurology 11/27/22 not c/w vascular event - FU visit ID clinic 01/12/23-- no change in symptoms, no infection apparent - MRI brain and spine 02/18/23 decreased intensity T2/FLAIR CC splenium lesion, decrease in expansion. New tiny focus of enhancement along the ventral and superior margins of the cystic portion of the lesion and adjacent to the biopsy tract. Mild enhancement of the RIGHT S1 nerve root, not significantly changed in appearance from 12/09/2022, with new mild enhancement of the RIGHT S2 nerve root. No enhancement left S1 nerve root - FU [facility] 03/30/23: [facility], no change in exam. Recovering from large posterior corpus callosum 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 lesion. Does not fulfill diagnostic criteria for MS - LP 03/22/23 with some pleocytosis, with TNC 19 (lymphs), protein 89. Cultures negative, Ig and T cell gene rearrangement negative, cytology and flow cytometry neg - MRI brain 04/19/23 with resolution of prior seen seen punctate focus of enhancement in the splenium biopsy site with otherwise similar surrounding signal changes. MRI C-T spine negative (MRI L spine not done) - saw Dr. Soto again on 04/28/2023 virtually and recommended evaluation by neuro-ID. - [place] 06/01/23-- repeat LP, neuro-ID consult, EMG to evaluate ? S1 lesion, continue MRI FU Unusual situation-- low suspicion for infection, but her course seems also unusual for MS, stroke, or malignancy Her history is striking for acute onset of symptoms after cardiac cath and stent placement (#4,5) on 05/21/22. 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 Her neuro symptoms started right after the stents placed 05/21/22 including the visual deficits and alexia the same day. Her symptoms have improved some compared with the acute phase leading up to the admission to [facility] on 06/08/22. However, over the past year since then symptoms have been the same-- minor fluctuations but still the same significant deficits Symptoms have been over 1 year now. Extensive ASHTON from Neuro-ID team earlier negative including CSF Next-Gen sequencing. Unusual for an infectious process to cause an isolated splenial CC lesion, muchless persisting over this length of time. The splenial lesion has changed some over time, mainly with loss of the DWI restriction and loss of the central cystic component. Diff Dx: - ? infectious-- main ID consideration is PML, but is a healthy host. Only immunosuppression was dexamethasone post biopsy. Will check HEIDI PCR for completeness, but the host, clinical timeline, and brain biopsy do not fit PML. No risk factors for AFB/fungal infection, but will check fungal antibodies in CSF on the upcoming LP. AFB and fungal cultures x 2 negative; MNGS equivalent sensitivity to universal PCRs for AFB and fungi. ? Whipple's disease-- she did have multiple joint pains early on butresolved spontaneously. Whipple's not known for splenial involvement but there were scattered foamy macrophages on brain biopsy. Will check Whipple's PCR in CSF, discuss with pathologist about PAS staining - post-infectious splenial lesion-- in diff dx, but no preceding febrile/viral illness (other than cardiovascular problems). Isolated splenium CC lesions associated with COVID 19 but her last episodewas 04/2020 - medication related splenium CC lesion? Well described with metronidazole, which she has taken before but does not sound like recent or prolonged exposure. Same for carbamazepine but this was D/C'd well before her neuro symptoms - inflammatory/autoimmune-- she has severe xerostomia for decades, and polyarthralgias at the onsetof neuro symptoms, raising possibility of underlying connective tissue disease, SLE, Sjogren's, sarcoidosis. 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 Will screen with STEVAN panel, SSA/B, SIL2-R, etc. Other inflammatory - MS considerations being worked up by Neuro - ? stroke-- history is still striking for the sudden onset of all her neuro and visual symptoms the day of the PCI. As noted, unusual location for a stroke, but not impossible from a (presumably) embolic lesion during the procedure. However, not clear why the lesion looked somewhat worse a few months later, and why the low level CSF pleocytosis 03/22/23 - malignancy; perhaps sampling error/variation on stereotactic biopsy. Upcoming LP should be sent mainly for cytology RECOMMEND: - observe off antibiotics, given low suspicion of infection - STEVAN, RF, Anti-CCP, C3/C4, ANCA, IL2 receptor, CATRACHO, chromatin ab, QUALITY ASSURANCE ANALYST, Jo1, scleroderma IgG, Anticentromere ab, Anti SSA/B, QUALITY ASSURANCE ANALYST, Patrick IgG, anti NICK - upcoming LP-- add fungal antibodies in CSF, Lyme immunoblot, HEIDI virus PCR - review brain biopsy pathology - Will discuss with Neurology Jim Pinedo MD June 09, 2023 I spent a total of 120 minutes on the date of the service which included reviewing multiple prior records ([facility] and OSH), personally reviewing multiple MRI scans, PET scans, and CT scans, smno-ya-wvteysohoeo care, completing clinical documentation, obtaining and/or reviewing separately obtained history, performing a medically appropriate examination, counseling and educating the patient/family/caregiver, ordering medications, tests, or procedures, communicating with other HCPs (not separately reported), independently interpreting results (not separately reported), communicating results to the patient/family/caregiver, and care coordination (not separately reported) documented in this [facility] History of Present illness Narrative* Codie Soto MD - 04/28/2023 3:25 PM EST Images from the original note were not included. [facility] NEURO-ONCOLOGY VIRTUAL VISIT NOTE This is a virtual visit using HIPAA compliant audio platform. It required patient-provider interaction for the medical decision making as documented below. I have communicated my name and active licensure. The patient's identity and physical location wereverified at the time of this visit. 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 The patient is accompanied by her Marciano (2nd ), and her daughter Beena. Subjective History of Present Illness: 57YOF who has CAD, and has had 4 stents, the 1st 2 were done 4 years ago, and the last one was done in May 2022. On the day of the last coronary artery stent, she had a sudden sensation that something was wrong, as she said she became suddenly dyslexic. On further questioning, she was having what appears to have aphasia in the form of word finding difficulty, as well difficulty reading, she says that whatever she would read she could not understand the witting, and she also felt off mentally, meaning somewhat confused. No define LOC/passing out/nor syncope. Another symptom she noted is that she cannot see out of the right side of her peripheral vision,a dthis has continued like that. She saw her eye doctor she said and is the one who noticed also the visual field deficit ( I do nothave those records for my review). On 06/08/22, she sima to [facility] for the above issues. She saw cerebrovascular/stroke neurologist Dr. Pro and did extensive work up for possible CVA. On 10/21/22, Dr. Pro based on the MRI from that showed alight progression of the lesion, with the concern that this is a glioma referred the patient to our [facility] [place] for evaluation. Dr. Feliz performed a biopsy on 11/04/22. The pathology is non diagnostic for a brain tumor, a glioma, which is the concern from the radiological perspective as the lesion has progressed in size slightly. The pathology is reported as: FINAL DIAGNOSIS A. Brain, right corpus callosum lesion, stereotactic biopsy - Minute focus of atypical cells in a reactive background; - See comment. B. Brain, right corpus callosum lesion, stereotactic biopsy - Gliosis with scattered macrophages Diagnosis Comment The biopsy shows focal hypercellularity at one corner (less than 5% of tissue submitted) with atypical angulated elongated nuclei and fibrillary background suspicious for glioma. Unfortunately this area is only present on the frozen section slide and is cut through on the resubmitted tissue. It is not present in any of the other slides/block submitted. The remainder of the specimen shows white matter with scattered foamy macrophages and gliosis. Part B shows white matter with scattered macrophages and gliosis but does not have the atypical area noted in frozen section. Immunohistochemical stains performed to help with classification show thefollowing (B1): CD68 highlights scattered macrophages; IDH1 R132H negative (wt); ATRX retained; p53 strong nuclear positivity 10%; Ki-67 proliferative index 1%; BRAF V600E negative (wildtype); H3 K27M negative (wt); H3 K27me3 retained; Luxol fast blue focal mild loss; Neurofilament cocktail with focal decreased axons; GMS negative for fungus; Gram negative for bacteria. FISH for EGFR reported separately. Slides also reviewed by Drs. Maria Luisa Leonardo and Jesu Narvaez who agree. As of today, she has persistent, difficulty both findings work, she still has the visual field deficit, which has extended to the lower quadrant as the initial report was that she had a right superior quadrantanopia. Also, she still feels foggy, meaning not very sharp mentally, yet she is still able to perform her ADL's. She is also having poor sleep. She says that she has been taking a multivitamin for many years, and she stopped them the week prior to the last stents, as per doctors' advice. No weight lost. No change in diet No new medications No similar history of the above No known neurological issue/diseases. She reports that she has bipolar disorder. Heide Dumont RN at 11/12/2022 7:44 AM Patient is a 57 y/o female from [place], [place] with PMH CAD (s/p stent placement- on ASA and Plavix), HTN, Asthma Reason for consult: brain lesion Surgery: 11/04/22- Right sided brain biopsy of corpus callosum lesion Pathology: Minute focus of atypical cells in a reactive background; Gliosis with scattered macrophages. EGFR NOT AMPLIFIED CD68 highlights scattered macrophages; IDH1 R132H negative (wt); ATRX retained; p53 strong nuclear positivity 10%; Ki-67 proliferative index 1%; BRAF V600E negative (wildtype); H3 K27M negative (wt); H3 K27me3 retained; Luxol fast blue focal mild loss; Neurofilament cocktail with focal decreased axons; GMS negative for fungus; Gram negative for bacteria. Neurosurgeon Dr Jovel Radiation oncologist: None Cardiovascular neurology_ Dr Pro AED: None Steroids: Decadron 2mg tablet- tapers to 2mg to twice daily without further instructions Treatment: none Pertinent History: per epic review 57 y/o female admitted to [facility] due to confusion and aphasia on 06/08/22. Recent coronary stent placement and stroke work up included CT and MRI Brain which revealed a faint diffusion restriction in the splenium corpus callosum. More prominent FLAIR change in this area. Some FLAIR changes s ubcortical in right (2) and left (1) white matter without diffusion restriction. She was dischargedhome and a repeated MRI on 07/03/22 showed a corpus callosum splenium nonenhancing expansile lesionwith internal cystic/necrotic foci, grossly stable compared with 06/08/2022 She was seen by vascular neurology- Dr Pro on 08/25/22- fper her notes- elt off since June. noted some changes in her speech and driving. 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 Review of CTA head ->normal cerebrovascular circulation. ECHO - No PFO PLan for repeat MRI , [facility]. Repeat MRI done 09/25/22 showed progression of lesion and she was seen by Dr Jovel on 10/27/22 Ather visit she was still having difficulty reading/writing, balance issues, recall issues and had lost peripheral vision on the Right. She was unable to work or drive. Recommendations made for brain bi opsy s/p 11/04/22- Right sided brain biopsy of corpus callosum lesion MRi Brain 09/25/22 Infiltrative process in the splenium the corpus callosum which, in view of the slight interval progression since the prior studies, would be worrisome for a glioma. MRi Brain 07/03/22 Corpus callosum splenium nonenhancing expansile lesion with internal cystic/necrotic foci, grossly stable compared with 06/08/2022. This is of indeterminate etiology, with considerations including sequela of a 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 process (noting additional patchy foci of signal abnormality in the cerebral white matter) versus other inflammatory, post infectious or cytotoxic process. Note that low-grade neoplasm is not excluded, and continued follow-up is recommended. Heide Dumont, RN, BSN [facility] 11/17/2022 INTERIM EVENTS No new symptoms She is joseph to go oveer the Brain tumor Board recommendations. 12/09/2022: INTERIM EVENTS. She is here to go over the MRI of the brain done on 12/07/22, and CT chest/abd/pelvis. The patient is accompanied by her Marciano (2nd ), and her daughter Beena. -issues worsening,gait difficulty, memory and vision. Although her repeat MRI from 12/07/22, shows no change, it is concerning that her symptoms are worsening, with no definite answer. I think that in order to expedite the planned work up and hopefully to get an answer for the patient, I think admitting the patient is what I would recommend. I spoke with Dr. Triston Lozano, neurology staff for primary neurology service, and discussed patient's case. Dr. Lozano, agreed that the patient requires admission to neurology to expedite work up and to elucidate any pathology that may require rather rapid intervention. I explained the above to the patient and family and they agreed. I called admissions, and the patient will be admitted under Dr. Lozano, who has accepted the patient. In addition to the work up and consults as noted below, further work up as Dr. Lozano may deem necessary. The work up will also include LP for CSF analysis. December 24, 2022 INTERIM EVENTS Virtual visit Patient is accompanied by her daughter and . DISCHARGE SUMMARY NEUROLOGY PATIENT NAME: Josie Landis ADMISSION DATE: 12/09/2022 DISCHARGE DATE: 12/15/2022 ATTENDING: No att. providers found Code Status: Not on file PCP: Solis Cool DO HOSPITAL COURSE: 57 yo RHF PMH of CAD s/p stent placement (4 stents total, latest stent placed May 2022), GERD, HTN,bipolar, 40-year tobacco use history, asthma presenting with 6-month history of word-finding difficulty, alexia, visual field deficit i/s/o brain MRI with splenium of corpus callosum lesion, progressive in size on follow-up MRI. Outpatient stroke evaluation feels her presentation is not c/w stroke.She is now s/p biopsy on 11/02, of which pathology was non-diagnostic. She presents 12/09 as a direct admit from clinic for further workup and evaluation. #splenium of corpus callosum lesion - Per Dr. Bhupendra Armstrong: with the constellation of signs and symptoms, including aphasia (mainly word finding difficulty), alexia, dyslexia, confusion, and visual field deficit on the right in the context of a lesion in the CC, this suggests highly a disconnecting syndrome - previous workup to date: - MRI brain 06/08 with faint diffusion restriction in the splenium of the corpus callosum, with some faint ADC hypointensity and FLAIR changes in subcortical right and left white matter without diffusion restriction - MRI brain 07/03 with corpus callosum splenium nonenhancing expansile lesion with internal cystic/necrotic foci. Interval progression on 09/25 MRI. - S/p stereotactic needle biopsy on 11/04, pathology: The biopsy shows focal hypercellularity at one corner (less than 5% of tissue submitted) with atypical angulated elongated nuclei and fibrillary background suspicious for glioma. Unfortunately this area is only present on the frozen section slide and is cut through on the resubmitted tissue. It is not present in any of the other slides/block submitted. The remainder of the specimen shows white matter with scattered foamy macrophages and gliosis - S/p decadron taper from 11/05-12/04 - CT C/A/P 11/25 with no suspicious primary lung malignancy noted, observed few scattered small pulmonary nodules measuring less than 5 mm. - MRI brain 12/07 with unchanged appearance of the nonenhancing mildly expansile splenial lesion s/p biopsy; no evidence of leptomeningeal disease, no elevated CBV in the splenium of the corpus callosum or elsewhere - workup on during [facility] admission: - MRI C/T/L WWO 12/10 mild enhancement of the R S1 cauda equina nerve root and equivocal enhancementof the L S1 cauda equina nerve root. No definite enhancement is identified in the other cauda equina nerve roots. These findings are nonspecific given the relatively limited distribution and the nonenhancing nature of the primary lesion in the corpus callosum. No 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 disease, drop mets - LP 12/10 - routine analysis and cell count wnl, protein 81, glucose 64, no organisms on C+S prelimresult, IgG/Alb ration 0.08, HSV negative, Cryptococcal Ag negative, MBP 8.63, oligoclonal bands negative, cytology unremarkable, flow cytometry with no evidence of lymphoproliferative disorder, - PET scan 12/13 Brain: No hypermetabolic lesions in the brain to suggest metastases or FDG avid neoplastic process. The lesion in the posterior corpus callosum demonstrated no significant FDG uptake. The findings compatible with low-grade neoplasm or nonneoplastic process. No focal uptake in the head and neck, chest, abdomen and pelvis, or extremities. -- per ID consult: HIV screen, remote hep screen, histo urine antigen, Mycoplasma IgG all unremarkable Plan - f/u ENS2 - f/u remaining LP studies: ENC2, MNGS, bacterial culture, fungal culture, AFB culture - neuro-ophthalmology eval to define whether visual field deficit matches with her brain lesions vsother cause - scheduled 12/15 after discharge No new issues She is here for post hospitalization follow up. Last Chemo: N/A Current Steroids dose: Start End dexAMETHasone (DECADRON) 2 mg tablet (Discontinued) 100 tablet 0 11/05/2022 11/17/2022 Sig: Take 4 tablets in the morning and in the afternoon for 5 days. Take 3 tablets in the morning and in the afternoon for 5 days. Current dose as of 11/17/22: Then take 2 tablets in the morning and in the afternoon for 5 days.Then take 1 tablet in the morning and afternoon until directed otherwise. Sent to pharmacy as: dexAMETHasone (DECADRON) 2 mg tablet Start November 20: 2 mg BID for 5 days Start November 25: 2 mg once day for 5 days November 30: 1 MG (1/2 Tab) FOR 5 DAYS THEN OFF. Current AED Dose: N/A 02/18/23 INTERIM EVENTS -01/12/23 Follow up with Neuroimmunology Dr. Lozano. Recommend follow up images. Symptoms: the patient says that her visual field deficit remain the same, with no new symptoms. ASSESSMENT/PLAN: 57 year old right handed female with abnormal MRI brain and other relevant PMHx of CAD s/p stent placement (4 stents total, latest stent placed May 2022), HTN, HLD, bipolar disorder, seizure-like episodes, and tobacco use history presenting for follow up on evaluation of abnormal brain lesion (corpus callosum lesion). She developed right HH, alexia, aphasia, and confusion post recent stent placeme nt in May 2022 (in retrospect patient may have had some mild memory impairment for the preceding 6 months). MRI brain for the first time in Jun 2022 showed a CC FLAIR lesion without GdE initially attributed to daly-procedural infarct but noted to have progression in size of lesion in August 2022 whichprompted referral to brain tumor s/p right stereotactic biopsy which was non-diagnostic. She was admitted to hospital in Dec 2022 due to worsening of symptoms with extensive evaluation including PET scans, CT chest/abdomen/pelvis without clear primary malignancy or FDG uptake and CSF without evidence of inflammation, malignancy, or infections (including MNGS). Neuroaxis imaging demonstrated possible enhancement in right S1 nerve root. Repeat imaging again in January 2023 showed stable lesion (with new punctate enhancement at biopsy site), persistent enhancement of right S1 and new enhancementof right S2. CSF was repeated with neuro-oncology which showed new lymphocytic pleocytosis. Neurologically she remains stable. Overall, the etiology of the CC lesion remains unclear despite extensiveevaluation but inflammatory etiology remains highest on the differential although malignancy continues to be evaluated. At this time, we would recommend holding off on immunotherapy with close monitoring. PLAN: - SPEP and CARTER testing today. - Will discuss imaging during our neuroradiology meeting. - Repeat MRI brain and follow up with Dr. Soto as scheduled. - Would be reasonable to proceed with repeat CSF again if scheduled with Dr. Soto. - Follow up with us again in about 2 months. Future Appointments Date Time Provider Department Center 04/19/2023 10:00 AM MRI [facility] (I-STAT/1.5T) DMITRIY Bernard 04/21/2023 1:30 PM Codie Soto MD [facility] [place] [facility] Office Visit on 03/30/23 IMMUNOFIXATION SCREEN, SERUM PROTEIN ELECTROPHORESIS SERUM W/INTERP Seen with Dr. Albarado. Rich Gudino MD Neuroimmunology Fellow [facility] S[facility] Patient seen and evaluated. She continues to recover from a large posterior corpus callosum 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 lesion with a couple additional, non-specific spots elsewhere in her purvi. At this point, she does not fulfill diagnostic criteria for multiple sclerosis and the very large size of the lesion decreases her risk to develop multiple sclerosis in the future. Nonetheless, she needs continued monitoring and follow-up imaging, along with Dr. Soto in neuro-oncology. Other details as above. Berto Albarado MD Note Details Instructions Abstract Open 04/05/2023 [facility] Rich Gudino MD Neurology Progress Notes Rich Gudino MD (Fellow) Neurology Unsigned Neuroimaging discussed at the [facility] neuroradiology conference today with Dr. Fadi Amado from neuroradiology department and [facility] clinicians [Dr. Lozano, Dr. Sams, Dr. Mahajan, Dr. Garnett, Dr. Jeffries, Dr. Hamm, Dr. Nguyen, Dr. Gonzales]. Discussed lumbar spine imaging findings of nerve root enhancements which upon review may be relatedto vessels and likely not deemed to be pathological particularly in the setting of absence of clinical findings localizable. Discussed brain imaging findings regarding the corpus callosum with continued uncertainty regardingthe diagnosis with primary differentials including neoplastic etiology and non-specific inflammatory etiology. Given the extensive workup done to date and clinical/radiological stability we would agree with continued surveillance for now. MRI already scheduled for later this month per Dr. Soto which we will review with office visit. Additional considerations will include repeat CSF testing to follow up on new pleocytosis noted on most recent CSF. Future Appointments Date Time Provider Department Center 04/19/2023 10:00 AM MRI [facility] (I-STAT/1.5T) DMITRIY Bernard 04/21/2023 1:30 PM Codie Soto MD [facility] 06/01/2023 11:15 AM Rich Gudino MD [facility] Rich Gudino MD Neuroimmunology Fellow 04/28/23 INTERIM EVENTS Virtual visit - Audio only. The patient is accompanied by She is here to go over the CSF results form the 2nd LP. Symptoms: the patient says that her visual field deficit remain the same, with no new symptoms. Therapy Status Data Form Past Medical History: PAST MEDICAL HISTORY Diagnosis Date Asthma due to seasonal allergies 11/02/2022 Basal cell carcinoma (BCC) of cheek 2020 left cheek Bipolar affective (HCC) Coronary artery disease Coronary artery disease involving wiyot coronary artery of wiyot heart without angina pectoris 11/02/2022 Gastroesophageal reflux disease without esophagitis 11/02/2022 Hyperlipidemia Primary hypertension 11/02/2022 Seizures (HCC) 11/02/2022 Stroke (HCC) Past Surgical History: PAST SURGICAL HISTORY Procedure Laterality Date CARDIAC SURG PROCEDURE UNLIST 2017 cardiac stents x 2 CHOLECYSTECTOMY HX EXCISION & REPAIR EYELID ONE-FOURTH LID MARGIN Left 2020 removal of BCC from left cheek LIGATE FALLOPIAN TUBE PAST SURGICAL HISTORY OF 05/2022 cardiac stent x 1 PAST SURGICAL HISTORY OF hiatal hernia repair PAST SURGICAL HISTORY OF partial hysterectomy SHOULDER ARTHROSCOPY/SURGERY Right torn rotator cuff TONSILLECTOMY HX Family History: FAMILY HISTORY Problem Relation Age of Onset Cataract Mother Heart Mother heart attack, stents Hypertension Mother Cancer Mother basal cell carcinoma of ear Cataract Father Heart Father stroke Hypertension Father Cancer Father Basal cell cancer Cancer Maternal Grandmother METS and unknown primary site Heart Maternal Grandfather of heart exploded Macular Degen Paternal Grandmother Cataract Paternal Grandmother Cancer Maternal Aunt METS and not sure of primary site Schizophrenia Maternal Aunt Cancer Granddaughter neuroblastoma Anesthesia Problems No Family History Diabetes No Family History No family H/O neurological conditions No H/O brain tumors in family No H/O 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 diseases in the family She has 2 biological daughters who are healthy. Social History Tobacco Use Smoking status: Some Days Packs/day: 0.30 Years: 40.00 Additional pack years: 0.00 Total pack years: 12.00 Types: Cigarettes Smokeless tobacco: Never Tobacco comments: Trying to quit currently Used to smoke a pack per day on average Vaping Use Vaping Use: Some days Substances: Flavoring Devices: Disposable Substance Use Topics Alcohol use: Not Currently Drug use: Never Allergies: Budesonide-Formoterol, Aspirin, Latex, Penicillins, Adhesive Tape-Silicones, Budesonide, and Formoterol Current Outpatient Medications Medication Sig lactobacillus combination no.4 (PROBIOTIC) 3 billion cell cap isosorbide mononitrate ER (IMDUR) 30 mg 24 hr tablet Take 1 tablet by mouth every afternoon. aspirin, enteric coated (ASPIRIN, ENTERIC COATED) 81 mg EC tablet Take 1 tablet by mouth every afternoon. albuterol HFA (PROVENTIL HFA, VENTOLIN HFA) 90 mcg/actuation inhaler Inhale as instructed. evolocumab 140 mg/mL subcutaneous pen injector (LC Style.comICK) Inject 140 mg subcutaneously every 2 weeks. ondansetron (ZOFRAN) 8 mg tablet Take 1 tablet by mouth every 8 hours as needed for nausea/vomiting. pantoprazole DR (PROTONIX) 40 mg tablet Take 1 tablet by mouth once daily. acetaminophen (TYLENOL) 325 mg tablet 2 tablets by ORAL/FEEDING TUBE route every 4 hours as needed for pain. senna-docusate (SENNA-S) 8.6-50 mg per tablet 1 tablet by ORAL/FEEDING TUBE route twice daily. hydroCHLOROthiazide 12.5 mg tablet Take 12.5 mg by mouth once daily. buPROPion XL (WELLBUTRIN XL) 300 mg 24 hr tablet Take 300 mg by mouth every morning. clonazePAM (KLONOPIN) 0.5 mg tablet Take 0.5 mg by mouth twice daily as needed for anxiety. traZODone (DESYREL) 100 mg tablet Take 300 mg by mouth daily at bedtime. topiramate (TOPAMAX) 100 mg tablet Take 100 mg by mouth twice daily. vilazodone (VIIBRYD) 40 mg tablet Take 40 mg by mouth once daily. losartan (COZAAR) 25 mg tablet Take 25 mg by mouth once daily. metoprolol succinate ER (TOPROL XL) 25 mg 24 hr tablet Take 12.5 mg by mouth once daily. ezetimibe (ZETIA) 10 mg tablet Take 10 mg by mouth once daily. cariprazine (VRAYLAR) 3 mg capsule Take 3 mg by mouth once daily. No current facility-administered medications for this visit. Review of systems: Constitutional: No recent fever or weight loss. Eyes: No history of glaucoma or cataracts. ENMT: No recent ear infection, nasal congestion, mouth sores or sore throat. CV: No history of chest pain, palpitations or leg swelling. Respiratory: No history of SOB, asthma or recent cough. Gastrointestinal: No history of nausea, vomiting, dysphagia or abdominal pain. Genitourinary: No history of hematuria or dysuria. Musculoskeletal: No complaint of arthritis, unstable gait or arm/leg weakness. Psychiatric: No history of hallucinations or depression or anxiety. ROS Neurological: No complaint of headache. No complaint of tinnitus. No complaint of decreased hearing. No complaint of diplopia. No complaints of decreased visual acuity. No complaint of arm/leg numbness. No problem with limb coordination. No complaint of syncope, seizures or disorientation. Objective Physical Exam: There were no vitals taken for this visit. MINI-MENTAL STATE EXAMINATION (MMSE) performed 12/09/2022 Make the patient comfortable and establish rapport. Ask questions in the order listed. Total possible score is 30. ORIENTATION 1. What is the (year) (season) (date) (day) (month)? Max score=5 Patient's score=5 2. Where are we? (state) (county) (town or city) (hospital) (floor)? Max score=5 Patient's score=4 REGISTRATION Ask the patient if you may test his/her memory. Then say the names of 3 unrelated objects, clearly and slowly, about one second for each (eg, apple, table, rick). After you have said all 3, ask him/her to repeat them. This first repetition determines the score(0-3), but keep saying them until he/she can repeat all 3, up to 6 trials. Max score=3 Patient's score=3 ATTENTION AND CALCULATION Ask the patient to begin with 100 and count backwards by 7. Stop after 5 subtractions (93, 86, 79, 72, 65). Score the total number of correct answers. If the patient cannot or will not perform the serial 7s task, ask him/her to spell the word WORLD backwards. The score is the number of letters in the correct order (eg, DLROW=5; DLRW=4; DLORW, DLW=3; OW=2; DRLWO=1). Max score=5 Patient's score=4 RECALL Ask the patient to recall the 3 items repeated above (eg, apple, table, rick). Max score=3 Patient's score=2 and 3 LANGUAGE Naming: Show the patient a wristwatch and ask him/her what it is. Repeat for pencil. Max score=2 Patient's score=2 Repetition: Ask the patient to repeat the phrase No ifs, ands, or buts: after you. Max score=1 Patient's score=1 3-Stage Command: Give the patient a piece of blank paper and ask him/her to take a piece of paper in your right hand, fold it in half, put it on the floor. Score 1 point for each part correctly executed. Max score=3 Patient's score=3 Reading: On a blank piece of paper, print the sentence CLOSE YOUR EYES in letters large enough for the patient to see clearly. Ask him/her to read it and do what it says. Score 1 point only if he/sheactually closes his/her eyes. Max score=1 Patient's score=1 Writing: Give the patient a blank piece of paper and ask him/her to write a sentence. Do not dictate a sentence; it is to be written spontaneously. It must contain a subject and verb and be sensible.Correct grammar and punctuation are not necessary. Max score=1 Patient's score=1 Copying: Ask the patient to copy the figure of intersecting pentagons exactly as it is. All 10 angles must be present and 2 must intersect to form a 4-sided figure to score 1 point. Tremor and rotation are ignored. Max score=1 Patient's score=1 MAXIMUM TOTAL SCORE = 30 TOTAL SCORE = 27/30 Suggested guideline for determining the severity of cognitive impairment: Mild: MMSE>21 Moderate: MMSE 10-20 Severe: MMSE<9 Expected decline in MMSE scores in untreated mild to moderate Alzheimer's patient is 2 to 4 points per year. *Adapted from Folstein et al.1 and Kinza and Nabeel2. (c) 1974, 1997 [employer] Used withpermission. References: 1. Folstein MF, Folstein SE, Perez PA. Mini-Mental State: a practical method for grading the cognitive state of patients for the clinician. J Psychiatr Res. 1975; 12:189-198. 2. JR Kinza, Nabeel BENNETT, Mini-Mental State Examination (MMSE). Psychopharm Bull. 1988;24:689-692. 3. Jonelle JT, Aniceto FJ, Lesley RD, Teja A, Michelle F. Neuropsychological function in Alzheimer's disease: pattern of impairment and rates of progression. Arch Neurol. 1988;45:263-268. 4. Sadi JA, Jae B,Chon S-P, Paul SHEEHAN. Predictors of cognitive and functional progression in patients with probable Alzheimer's disease. Neurology. 1992;42:6535-4223. GENERAL EXAM: General appearance: Well appearing, alert, in no acute distress Skin: Skin color, texture, turgor normal Oropharynx: No thrush noted. Lungs: Lungs clear to auscultation. No wheezing, rhonchi, rales Heart: RRR without murmur, gallop, or rubs. No ectopy Abdomen: Normal abdominal exam, Abdomen soft, non-tender. Bowel sounds normal. Extremities: No deformities, skin discoloration, clubbing or cyanosis. Good capillary refill, no edema to BLE. Donna's sign negative. No pain to palpation. NEUROLOGICAL EXAM: Higher integrative functions: Oriented to person, place & time. See MMSE Attention Span and Concentration: Good. Language: Accurate naming of objects. Good comprehension. Fund of Knowledge: Good. Dysarthria Stuttering No definite language dysfunction. 2nd CN: Right homonymous hemianopsia 3rd,4th,6th CN: Pupils equal, round, react to light, full extraocular movements. 5th CN: No decrease in facial sensation 7th CN: Facial muscles symmetric and strong. 8th CN: Hears finger rub well bilaterally. 9th CN: Gag reflex not tested 10th CN: Spontaneous palate movement, full and symmetric. 11th CN: Full strength in shoulder shrug. 12th CN: Tongue protrusion full and midline. Sensation: No decrease in sensation in upper or lower limbs to touch. Musculoskeletal: Gait steady. Tandem walk normal. Romberg negative. Motor: 5/5 RUE/RLE; 5/5 LUE/LLENormal muscle tone without atrophy in all limbs. Coordination: Rapid alternating movements LUE intact; RUE intact Reflexes: 1-2+ ALL limbs. Plantar response down going. Karnofsky performance status: 80 - Normal activity with effort, some signs or symptoms of disease. ECOG performance status: 1 - Restricted in physically strenuous activity but ambulatory and able tocarry out work of a light or sedentary nature, e.g., light house work or office work. PHQ 2 and 9 Total Scores 01/09/2023 PHQ-2 Score 6 PHQ-9 Score 22 Labs: CBC Latest Ref Rng & Units 12/12/2022 12/14/2022 12/15/2022 WBC 3.70 - 11.00 k/uL 3.68(L) 3.88 4.74 RBC 3.90 - 5.20 m/uL 4.64 4.40 4.28 HEMOGLOBIN 11.5 - 15.5 g/dL 13.0 12.5 12.2 HEMATOCRIT 36.0 - 46.0 % 39.7 38.1 37.2 MCV 80.0 - 100.0 fL 85.6 86.6 86.9 MCH 26.0 - 34.0 pg 28.0 28.4 28.5 MCHC 30.5 - 36.0 g/dL 32.7 32.8 32.8 RDW-CV 11.5 - 15.0 % 13.9 14.0 14.1 PLATELETS 150 - 400 k/uL 179 180 179 MPV 9.0 - 12.7 fL 9.3 8.7(L) 9.0 BASO% % - - - ABS NEUT (ANC) 1.45 - 7.50 k/uL - - - ABS LYMPH 1.00 - 4.00 k/uL - - - ABS MONO <0.87 k/uL - - - ABS EOSIN <0.46 k/uL - - - ABS BASO <0.11 k/uL - - - NRBC /100 WBC - - - CMP Latest Ref Rng & Units 12/14/2022 12/15/2022 03/30/2023 SODIUM 136 - 144 mmol/L 140 137 - POTASSIUM 3.7 - 5.1 mmol/L 4.2 3.9 - CHLORIDE 97 - 105 mmol/L 107(H) 104 - CO2 22 - 30 mmol/L 23 22 - GLUCOSE 74 - 99 mg/dL 90 97 - BUN 7 - 21 mg/dL 9 9 - CREATININE 0.58 - 0.96 mg/dL 0.93 0.95 - EGFR >=60 mL/min/1.73m 73 71 - PROTEIN, TOTAL 6.3 - 8.0 g/dL - - 6.1(L) ALBUMIN 3.9 - 4.9 g/dL - - - CALCIUM, TOTAL 8.5 - 10.2 mg/dL 9.1 9.0 - BILIRUBIN, TOTAL 0.2 - 1.3 mg/dL - - - AST 13 - 35 U/L - - - ALT 7 - 38 U/L - - - ALKALINE PHOSPHATASE 34 - 123 U/L - - - ORDERS: Associate Signed Orders Orders Signed This Visit (17) AFB CULT + STAIN Clinician Collect, Routine, Specimen Sources - CEREBROSPINAL FLUID.;, Resulting Agency - [facility], Dx: 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 Brain lesion 3. Confusion 4. Alexia 5. Visual field defect AFB CULT + STAIN Order: [id number] Status: Preliminary result Visible to patient: No (not released) Dx: Alexia; Confusion; Visual field defec... Specimen Information: CSF LUMBAR PUNCTURE 0 Result Notes Culture No Acid Fast Bacilli isolated after 35 days Smear Result No acid fast bacilli seen by flurochrome stain [place] [facility] [place] Collected: 03/22/23 9:20 AM EST Last Resulted: 04/27/23 8:03 AM EST CSF CULT + STAIN Clinician Collect, Routine, Specimen Sources - CEREBROSPINAL FLUID;, Resulting Agency - [facility], Dx: 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 Brain lesion 3. Confusion 4. Alexia 5. Visual field defect CSF CULT + STAIN Order: [id number] Status: Final result Visible to patient: Yes (seen) Dx: Neoplasm of uncertain behavior of bra... Specimen Information: CSF LUMBAR PUNCTURE 0 Result Notes important suggestion Newer results are available. Click to view them now. Culture, CSF No growth 5 days Smear Result No organisms seen Rare Polymorphonuclear leukocytes Few Mononuclear cells Gram stain performed on cytospun specimen. [place] [facility] [place] Collected: 03/22/23 9:20 AM EST Last Resulted: 03/27/23 9:21 AM EST CSF ROUT ANALYSIS Clinician Collect, Routine, Specimen Sources - CSF LUMBAR PUNCTURE;, Resulting Agency - [facility], Dx: 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 Brain lesion 3. Confusion 4. Alexia 5. Visual field defect Contains abnormal data CSF ROUT ANALYSIS Order: [id number] Status: Final result Visible to patient: Yes (seen) Dx: Neoplasm of uncertain behavior of bra... 0 Result Notes Specimen Collected: 03/22/23 9:20 AM EST Last Resulted: 03/22/23 11:04 AM EST Order Details View Encounter Lab and Collection Details Routing Result History View All Conversations on this Encounter Result Care Coordination Patient Communication Add Comments Seen Back to Top Contains abnormal data CSF MANUAL DIFF Order: [id number] - Reflex for Order [id number] Status: Final result Visible to patient: Yes (seen) Dx: Neoplasm of uncertain behavior of bra... 0 Result Notes Component Ref Range & Units 1 mo ago (03/22/23) 1 mo ago (03/22/23) 4 mo ago (12/10/22) Diff Total, CSF cells counted 100 100 100 Lymph%, CSF 50 - 90 % 95 High 99 High 90 Mccracken%, CSF 10 - 50 % 5 Low 1 Low 10 Resulting Agency [facility] Specimen Collected: 03/22/23 9:20 AM EST Last Resulted: 03/22/23 2:44 PM EST Lab Flowsheet Order Details View Encounter Lab and Collection Details Routing Result History View All Conversations on this Encounter Result Care Coordination Patient Communication Add Comments Seen Back to Top Contains abnormal data PROTEIN CSF Order: [id number] - Part of Panel Order [id number] Status: Final result Visible to patient: Yes (seen) Dx: Neoplasm of uncertain behavior of bra... 0 Result Notes Component Ref Range & Units 1 mo ago 4 mo ago Protein, CSF 15 - 45 mg/dL 89 High 81 High Resulting Agency [facility] Specimen Collected: 03/22/23 9:20 AM EST Last Resulted: 03/22/23 11:04 AM EST Lab Flowsheet Order Details View Encounter Lab and Collection Details Routing Result History View All Conversations on this Encounter Result Care Coordination Patient Communication Add Comments Seen Back to Top GLUCOSE CSF Order: [id number] - Part of Panel Order [id number] Status: Final result Visible to patient: Yes (seen) Dx: Neoplasm of uncertain behavior of bra... 0 Result Notes Component Ref Range & Units 1 mo ago 4 mo ago Glucose, CSF 40 - 70 mg/dL 70 64 CM Comment: Lumbar CSF glucose values of healthy patients are approximately 60% of the plasma values and must always be compared with a concurrently measured plasma value for adequate clinical interpretation. References: 1. Glucose HK (GLUC3) [package insert V 12.0 [place]]. [employer], [place]. September 2015. 2. Renea Rodriguez, Dulce HZack (2015). Chapter 7: Glucose and Lactate. F. Birdie toledo al.(eds.), Cerebrospinal Fluid in Clinical Neurology. [place]: [employer]. Resulting Agency [facility] Specimen Collected: 03/22/23 9:20 AM EST Last Resulted: 03/22/23 11:04 AM EST Lab Flowsheet Order Details View Encounter Lab and Collection Details Routing Result History View All Conversations on this Encounter CM=Additional comments Result Care Coordination Patient Communication Add Comments Seen Back to Top Contains abnormal data CSF CELL COUNT Order: [id number] - Part of Panel Order [id number] Status: Final result Visible to patient: Yes (seen) Dx: Neoplasm of uncertain behavior of bra... 0 Result Notes important suggestion Newer results are available. Click to view them now. Component Ref Range & Units 1 mo ago 4 mo ago CSF Tube Number Tube 1 Tube 4 Color, CSF Colorless Colorless Colorless Clarity, CSF Clear Clear Clear Supernatant Color, CSF Colorless Not Indicated Not Indicated Supernatant Clarity, CSF Clear Not Indicated Not Indicated RBC, CSF 0 - 5 cells/uL 11 High 1 Total Nucleated Cells, CSF 0 - 5 cells/uL 19 High 2 Resulting [facility] Specimen Collected: 03/22/23 9:20 AM EST Last Resulted: 03/22/23 11:03 AM EST Lab Flowsheet Order Details View Encounter Lab and Collection Details Routing Result History View All Conversations on this Encounter Result Care Coordination Patient Communication Add Comments Seen Back to Top Result Information Flag: Abnormal Abnormal Status: Final result (Resulted: 03/22/2023 11:04 AM) Provider Status: Open Questions Order Question Answer Ra Account (Please Enter 8-digit numeric number beginning with 00) Collection comment: CSF ROUT ANALYSIS (Order [id number]) Linked Results Procedure Abnormality Status CSF CELL COUNT Abnormal Abnormal Final result PROTEIN CSF Abnormal Abnormal Final result GLUCOSE CSF Normal Final result CSF MANUAL DIFF (Order [id number]) - Reflex for Order [id number] PROTEIN CSF (Order [id number]) GLUCOSE CSF (Order [id number]) CSF CELL COUNT (Order [id number]) Patient Release Status: This result is viewable by the patient in MyChart. Last viewed in MyChart: 03/27/2023 9:52 AM By: Josie Landis Routing History Priority Sent On From To Message Type 03/22/2023 2:15 PM Ce, Scheduled Orders In Codie Soto MD Results 03/22/2023 11:03 AM Lab, Background User Codie Soto MD Results View [employer] Info CSF ROUT ANALYSIS (Order #[id number]) on 02/22/23 CAP/CLIA/Joint Commission Regulatory Result Report CSF ROUT ANALYSIS (Order #[id number]) on 02/22/23 Patient Communication CSF ROUT ANALYSIS Add Comments Seen PROTEIN CSF Add Comments Seen GLUCOSE CSF Add Comments Seen CSF CELL COUNT Add Comments Seen Related Result Highlights CYTOLOGY NON-[employer] Final result 03/22/2023 FINAL DIAGNOSIS A - CEREBROSPINAL FLUID Negative for malignant cells. Chronic inflammation. Other Results from 02/18/2023 IGG/ALB RATIO CSF Final result 03/22/2023 BANDS OLIGOCLONAL CSF Final result 03/22/2023 OLIGOCLONAL CSF IGG Final result 03/22/2023 CSF CULT + STAIN Final result 03/22/2023 FUNGAL CSF CULT/CAD Final result 03/22/2023 MYELIN BASIC PRO CSF Final result 03/22/2023 VDRL CSF Final result 03/22/2023 CRYPTOCOCCUS AG DET Final result 03/22/2023 important suggestion Warning: Additional results from 02/18/2023 are available but are not displayed in this report. CSF SPECIMEN LABELS Referral By - CODIE SOTO 1 visit, Qty-1, Normal, Routine, Dx: 1. Neoplasm of uncertainbehavior of brain, supratentorial (HCC) 2. Brain lesion 3. Confusion 4. Alexia 5. Visual field defect CYTOLOGY NON-[employer] Clinician Collect, Routine, Specimen Sources - CSF LUMBAR PUNCTURE;, Resulting Agency - [facility], Dx: 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 Brain lesion 3. Confusion 4. Alexia 5. Visual field defect CYTOLOGY NON-[employer]: [id number] Order: [id number] Collected 03/22/2023 9:20 AM Status: Final result Visible to patient: Yes (seen) Dx: Neoplasm of uncertain behavior of bra... 0 Result Notes Component FINAL DIAGNOSIS A - CEREBROSPINAL FLUID Negative for malignant cells. Chronic inflammation. EXTRA TUBES Clinician Collect, Routine, Dx: 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Brain lesion 3. Confusion 4. Alexia 5. Visual field defect CSF Tube(s) collected? x4 FLOW CYTOMETRY FOR LEUKEMIA/LYMPHOMA (FCLL) Future, Expected: 02/22/2023, Clinician Collect, Resulting Agency - [facility] FLOW CYTOMETRY FOR LEUKEMIA/LYMPHOMA (FCLL) REFLEX: [id number] Order: [id number] - Reflex for Order [id number] Status: Final result Visible to patient: Yes (seen) Dx: Alexia; Confusion; Visual field defec... 0 Result Notes Component Interpretation There is no evidence of involvement by a lymphoproliferative disorder or abnormal blast population.Correlation with the clinical findings is suggested. AL CSF CULT/CAD Clinician Collect, Routine, Specimen Sources - CSF LUMBAR PUNCTURE;, Resulting Agency - [facility], Dx: 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 Brain lesion 3. Confusion 4. Alexia 5. Visual field defect FUNGAL CSF CULT/CAD Order: [id number] Status: Final result Visible to patient: Yes (not seen) Dx: Neoplasm of uncertain behavior of bra... Specimen Information: CSF LUMBAR PUNCTURE 0 Result Notes important suggestion Newer results are available. Click to view them now. Culture No Fungus isolated after 28 days [place]ing [place] [facility] [place] Collected: 03/22/23 9:20 AM EST Last Resulted: 04/19/23 11:02 AM EST Lab Flowsheet Order Details View Encounter Lab and Collection Details Routing Result History View All Conversations on this Encounter Result Care Coordination Patient Communication Add Comments Add Notifications Back to Top CRYPTOCOCCUS AG DET Order: [id number] - Reflex for Order [id number] Status: Final result Visible to patient: Yes (seen) Dx: Neoplasm of uncertain behavior of bra... Specimen Information: CSF LUMBAR PUNCTURE 0 Result Notes Component Ref Range & Units 1 mo ago 4 mo ago Cryptococcal Ag Result Cryptococcal Antigen NOT DETECTED Cryptococcal Antigen NOT DETECTED Cryptococcal Antigen NOT DETECTED CM Comment: by line flow immunoassay Resulting Agency [facility] Specimen Collected: 03/22/23 9:20 AM EST Last Resulted: 03/22/23 3:13 PM EST GLUCOSE RANDOM BLD Future, Expected: 02/22/2023, Lab, Routine, Specimen Sources - BLOOD;, Resulting Agency - [facility], Dx: 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 Brain lesion 3.Confusion 4. Alexia 5. Visual field defect IR LUMBAR PUNCTURE DIAGNOSTIC (MC) Routine LYME DISEASE BY PCR Future, Expected: 02/22/2023, Lab, Routine, Specimen Sources - CEREBROSPINAL FLUID.;, Resulting Agency - [facility], Dx: 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 Brain lesion 3. Confusion 4. Alexia 5. Visual field defect Source: CSF LUMBAR PUNCTURE LYME DISEASE BY PCR Order: [id number] Status: Final result Visible to patient: Yes (seen) Dx: Brain lesion 0 Result Notes Component 1 mo ago Specimen Source (LYPCR) CSF Borrelia sp. PCR Not Detected Comment: NOT DETECTED - A negative result does not rule out the presence of PCR inhibitors in the patient specimen or assay specific nucleic acid in concentrations below the level of detection by the assay. Blood and CSF specimens have poor clinical sensitivity for detection of Borrelia burgdorferi by PCR. INTERPRETIVE INFORMATION: Borrelia Species DNA Detection by PCR This test was developed and its performance characteristics determined by [facility]. It has not been cleared or approved by the US Food and Drug Administration. This test was performed in a CLIA certified laboratory and is intended for clinical purposes. Performed By: [facility] [address] [place] [address] Dross Skimmer: Rj Camacho MD, PhD CLIA Number: [id number] Resulting Agency [facility] Specimen Collected: 03/22/23 9:20 AM EST Last Resulted: 03/25/23 9:09 AM EST MISC SEND OUT TST 1 Future, Expected: 02/22/2023, Lab, Specimen Types - CSF;, Resulting Agency - [facility] MISC SEND OUT TST 1 Future, Expected: 02/22/2023, Lab, Specimen Types - CSF;, Resulting Agency - [facility] MYELIN BASIC PRO CSF Clinician Collect, Routine, Specimen Sources - CSF LUMBAR PUNCTURE;, Resulting [facility], Dx: 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 Brain lesion 3. Confusion 4. Alexia 5. Visual field defect MYELIN BASIC PRO CSF Order: [id number] Status: Final result Visible to patient: Yes (seen) Dx: Neoplasm of uncertain behavior of bra... 0 Result Notes Component Ref Range & Units 1 mo ago 4 mo ago Myelin Basic Protein, CSF 0.00 - 5.50 ng/mL 5.05 8.63 High CM Comment: INTERPRETIVE INFORMATION: Myelin Basic Protein This test was developed and its performance characteristics determined by [facility]. It has not been cleared or approved by the US Food and Drug Administration. This test was performed in a CLIA certified laboratory and is intended for clinical purposes. Performed By: [facility] [address] [place] [address] Dross Skimmer: Rj Camacho MD, PhD CLIA Number: [id number] OLIGOCLONAL BAND CSF Clinician Collect, Routine, Specimen Sources - CSF LUMBAR PUNCTURE;, Resulting [facility], Dx: 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 Brain lesion 3. Confusion 4. Alexia 5. Visual field defect BANDS OLIGOCLONAL CSF Order: [id number] - Part of Panel Order [id number] Status: Final result Visible to patient: Yes (seen) Dx: Brain lesion 0 Result Notes Component 1 mo ago CSF Oligoclonal Bands Oligoclonal bands are not seen in the CSF. 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 Brain lesion 3. Confusion 4. Alexia 5. 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 Brain lesion 3. Confusion 4. Alexia 5. Visual field defect VDRL CSF Order: [id number] Status: Final result Visible to patient: Yes (seen) Dx: Neoplasm of uncertain behavior of bra... 0 Result Notes Component Ref Range & Units 1 mo ago 4 mo ago VDRL, CSF Nonreactive Nonreactive Nonreactive CM Comment: CSF VDRL test is used an aid in diagnosis of neurosyphilis. CSF VDRL detects non-treponemal antibodies and has lower sensitivity than CSF treponemal tests such as FTA, therefore a negative result cannot reliably rule out neurosyphilis. Clinical correlation is required. Resulting [facility] Specimen Collected: 03/22/23 9:20 AM EST Last Resulted: 03/23/23 12:33 PM EST Contains abnormal data CSF CELL COUNT Order: [id number] Status: Final result Visible to patient: Yes (seen) Dx: Brain lesion 0 Result Notes Component Ref Range & Units 1 mo ago (03/22/23) 1 mo ago (03/22/23) 4 mo ago (12/10/22) CSF Tube Number Tube 4 Tube 1 Tube 4 Color, CSF Colorless Colorless Colorless Colorless Clarity, CSF Clear Clear Clear Clear Supernatant Color, CSF Colorless Not Indicated Not Indicated Not Indicated Supernatant Clarity, CSF Clear Not Indicated Not Indicated Not Indicated RBC, CSF 0 - 5 cells/uL 2 11 High 1 Total Nucleated Cells, CSF 0 - 5 cells/uL 16 High 19 High 2 Resulting [facility] Specimen Collected: 03/22/23 9:20 AM EST Last Resulted: 03/22/23 11:04 AM EST Lab Flowsheet Order Details View Encounter Lab and Collection Details Routing Result History View All Conversations on this Encounter Result Care Coordination Patient Communication Add Comments Seen Back to Top Contains abnormal data CSF MANUAL DIFF Order: [id number] - Reflex for Order [id number] Status: Final result Visible to patient: Yes (seen) Dx: Brain lesion 0 Result Notes important suggestion Newer results are available. Click to view them now. Component Ref Range & Units 1 mo ago 4 mo ago Diff Total, CSF cells counted 100 100 Lymph%, CSF 50 - 90 % 99 High 90 Mccracken%, CSF 10 - 50 % 1 Low 10 Resulting [facility] Specimen Collected: 03/22/23 9:20 AM EST Last Resulted: 03/22/23 2:40 PM EST CRYPTOCOCCUS AG DET Order: [id number] - Reflex for Order [id number] Status: Final result Visible to patient: Yes (seen) Dx: Neoplasm of uncertain behavior of bra... Specimen Information: CSF LUMBAR PUNCTURE 0 Result Notes Component Ref Range & Units 1 mo ago 4 mo ago Cryptococcal Ag Result Cryptococcal Antigen NOT DETECTED Cryptococcal Antigen NOT DETECTED Cryptococcal Antigen NOT DETECTED CM Comment: by line flow immunoassay Resulting [facility] Specimen Collected: 03/22/23 9:20 AM EST Last Resulted: 03/22/23 3:13 PM EST FLOW CYTOMETRY FOR LEUKEMIA/LYMPHOMA (FCLL) REFLEX: [id number] Order: [id number] - Reflex for Order [id number] Collected 03/22/2023 9:20 AM Status: Final result Visible to patient: Yes (seen) Dx: Alexia; Confusion; Visual field defec... 0 Result Notes Component Interpretation There is no evidence of involvement by a lymphoproliferative disorder or abnormal blast population.Correlation with the clinical findings is suggested. /ALB RATIO CSF Order: [id number] Status: Final result Visible to patient: Yes (seen) Dx: Brain lesion 0 Result Notes Component Ref Range & Units 1 mo ago 4 mo ago Immunoglobulin G, CSF 1.0 - 3.0 mg/dL 4.5 High 4.1 High Albumin, CSF 10.0 - 30.0 mg/dL 57.4 High 53.8 High CSF IgG / Albumin Ratio 0.06 - 0.17 0.08 0.08 Resulting [facility] Specimen Collected: 03/22/23 9:38 AM EST Last Resulted: 03/30/23 1:35 PM EST BANDS OLIGOCLONAL CSF Order: [id number] - Part of Panel Order [id number] Status: Final result Visible to patient: Yes (seen) Dx: Brain lesion 0 Result Notes Component 1 mo ago CSF Oligoclonal Bands Oligoclonal bands are not seen in the CSF. Staff Review (Oligo Banding) Reviewed by Estefania Barajas MD [facility] Specimen Collected: 03/22/23 9:38 AM EST Last Resulted: 03/30/23 1:29 PM EST BANDS OLIGOCLONAL CSF Order: [id number] - Part of Panel Order [id number] Status: Final result Visible to patient: Yes (seen) Dx: Brain lesion 0 Result Notes Component 1 mo ago CSF Oligoclonal Bands Oligoclonal bands are not seen in the CSF. Staff Review (Oligo Banding) Reviewed by Estefania Barajas MD Resulting Agency [facility] Specimen Collected: 03/22/23 9:38 AM EST Last Resulted: 03/30/23 1:29 PM EST Final Pathology: SURGICAL PATHOLOGY: [id number] Order: [id number] Collected 11/04/2022 11:13 AM Status: Final result Visible to patient: No (scheduled for 11/14/2022 1:09 PM) Dx: Glioma (HCC) 0 Result Notes Component FINAL DIAGNOSIS A. Brain, right corpus callosum lesion, stereotactic biopsy - Minute focus of atypical cells in a reactive background; - See comment. B. Brain, right corpus callosum lesion, stereotactic biopsy - Gliosis with scattered macrophages. Diagnosis Comment The biopsy shows focal hypercellularity at one corner (less than 5% of tissue submitted) with atypical angulated elongated nuclei and fibrillary background suspicious for glioma. Unfortunately this area is only present on the frozen section slide and is cut through on the resubmitted tissue. It is not present in any of the other slides/block submitted. The remainder of the specimen shows white matter with scattered foamy macrophages and gliosis. Part B shows white matter with scattered macrophages and gliosis but does not have the atypical area noted in frozen section. Immunohistochemical stains performed to help with classification show thefollowing (B1): CD68 highlights scattered macrophages; IDH1 R132H negative (wt); ATRX retained; p53 strong nuclear positivity 10%; Ki-67 proliferative index 1%; BRAF V600E negative (wildtype); H3 K27M negative (wt); H3 K27me3 retained; Luxol fast blue focal mild loss; Neurofilament cocktail with focal decreased axons; GMS negative for fungus; Gram negative for bacteria. FISH for EGFR reported separately. Slides also reviewed by Drs. Maria Luisa Leonardo and Jesu Narvaez who agree. Laboratory Developed Test (LDT) Disclaimer: Performance characteristics of immunohistochemical, immunofluorescent and chromogenic in-situ hybridization tests have been determined by the performing laboratory within [facility] s [facility] [place] ([facility], [facility], [facility], [facility], [facility], or [facility]) in a manner consistent with CLIA requirements. One or more of these tests have not been cleared or approved by the FDA. [facility] is regulated under CLIA as qualified to perform high-complexity testing. These tests are used for clinical purposes. They should not be regarded as investigational or for research. Positive and negative controls stain appropriately. Gross Description A. BRAIN BIOPSY Received fresh for intraoperative evaluation labeled as right corpus callosum lesion is a whitishoval piece of tissue measuring 5 x 4 x 0.2 cm. Half of the tissue is submitted for frozen section evaluation in FSA 1. The rest of the tissue is submitted for permanent in A2. Gross examination performed at [address] 11/04/2022 B. BRAIN BIOPSY Received fresh labeled right corpus callosum lesion are multiple fragments of white-goodson tissue aggregating to 0.6 x 0.5 x 0.2 cm. The specimen is submitted entirely in cassette B1. Gross [place] [address] JXM/DANIELE 11/04/22 12:21 PM Intraoperative Diagnosis A. 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 (Dr. Narvaez). Intraoperative diagnosis performed at [address] 11/04/2022 Clinical History Pre-op diagnosis: Glioma (HCC) [C71.9] Performing Lab Diagnostic interpretation performed at [place] [address] CLIA# [id number] Dross Skimmer: Jasen Rivera M.D. Resulting Agency [facility] Specimen Collected: 11/04/22 11:13 AM EDT Last Resulted: 11/09/22 1:09 PM EDT Order Details View Encounter Lab and Collection Details Routing Result History View All Conversations on this Encounter Scans on Order [id number] Document on 11/09/2022 1:09 PM by Anusha Thomas MD Result Care Coordination Patient Communication 11/14/2022 1:09 PM Release Now Not seen Back to Top FISH FOR EGFR: [id number] Order: [id number] - Reflex for Order [id number] Collected 11/04/2022 11:22 AM Status: Final result Visible to patient: Yes (seen) Dx: Glioma (HCC) 0 Result Notes Component FISH FOR EGFR FISH for EGFR Laboratory Accession Number: [id number] Case: [id number] Block: B1 Sample Type: FFPET Sample Description: BRAIN BIOPSY, RIGHT CORPUS CALLOSUM LESION Received Date: 11/06/2022 RESULTS: EGFR NOT AMPLIFIED Number of nuclei scored: 40 INTERPRETATION: Negative for amplification of the EGFR gene. Clinical and pathological correlation is recommended. The following FISH results were obtained: EGFR: 1.78 CEP7: 2.15 EGFR/CEP7 ratio: 0.83 (Reference Range: Amplified >2.00) COMMENT: A combination of genetic signature and histology stratifies lower- grade gliomas better than histology alone. IDH-wildtype infiltrating or diffuse astrocytomas with EGFR amplification are predicted to follow an aggressive clinical course resembling that of IDH-wildtype glioblastoma. Reference: Néstor JACOME et al. cIMPACT-NOW update 3: recommended diagnostic criteria for Diffuse astrocytic glioma, IDH- wildtype, with molecular features of glioblastoma, WHO grade IV. Acta Neuropathol. 2018 Nov;136(5):805-810. METHODOLOGY: Amplification of the Epidermal Growth Factor Receptor (EGFR) gene was evaluated with interphase fluorescence in situ hybridization (FISH) on formalin-fixed paraffin embedded tissue sections using the LSI EGFR (7p11.2) and chromosome 7 centromere (CEP 7) probes ([employer], [place], [place]). The slides were scored manually. LIMITATIONS: This test will not identify all rearrangements involving EGFR. Rare, cryptic abnormalities may be below the resolution of the assay, or may otherwise be undetected. Specimen size, quality or representativeness can affect the quality of the result. This assay has been validated for tissues fixed with 10% neutral buffered formalin. Decalcification agents and fixation agents containing heavy metals, e.g. B5, or harsh acid or base components (e.g. Bouin's solution) can adversely impact assay performance. DISCLAIMER: This test was developed and its performance characteristics determined by the [facility] [place] ([facility]). It has not been cleared or approved by the FDA. [facility] is regulated under CLIA as qualified to perform high- complexity testing. This test is used for clinical purposes. It should not be regarded as investigational or for research. Interpretation performed at [facility], [facility] [place] [id number]. CLIA Number: [id number] As reviewed by Mayra Louis MD, PhD Resulting Agency [facility] Specimen Collected: 11/04/22 11:22 AM EDT Last Resulted: 11/09/22 3:26 PM EDT Order Details View Encounter Lab and Collection Details Routing Result History View All Conversations on this Encounter Result Care Coordination Patient Communication Add Comments Seen Back to Top Specimen Collection Information ID Source Type Collected By Time Frozen A BRAIN BIOPSY Tissue Carlos Jovel MD 11/04/22 1113 Yes Description: right corpus callosum lesion B BRAIN BIOPSY Tissue Carlos Jovel MD 11/04/22 1122 No Description: right corpus callosum lesion Additional Information Diagnosis codes: Glioma (HCC) [C71.9] Comments: Pre-op diagnosis: Glioma (HCC) [C71.9] Scanned Documents Result Information Status: Final result (Resulted: 11/09/2022 1:09 PM) Provider Status: Open Questions Order Question Answer Source of specimen(s): Clinical History SURGICAL PATHOLOGY (Order [id number]) FISH FOR EGFR (Order [id number]) - Reflex for Order [id number] Patient Release Status: This result is scheduled for release on 11/14/2022 1:09 PM. Routing History Priority Sent On From To Message Type 11/09/2022 3:26 PM Lab, Background User Anusha Thomas MD Results 11/09/2022 1:09 PM Lab, Background User Carlos Jovel MD Results 11/09/2022 1:09 PM Lab, Background User Triston Guy MD Results View Smartlink Info SURGICAL PATHOLOGY (Order #[id number]) on 11/04/22 CAP/CLIA/Joint Commission Regulatory Result Report SURGICAL PATHOLOGY (Order #[id number]) on 11/04/22 SURGICAL PATHOLOGY: Patient Communication 11/14/2022 1:09 PM Release Now Not seen Imaging: Results CT CHEST W IVCON (Acc#[id number]) (Order [id number]) Patient Info Patient Name Sex Harbeitner, Josie Teresa ([id number]) Female 1965 Imaging Findings Finding Acuity Linked Recommendation Recommendation Status Finding Status Incidental Reviewed 11/25/2022 5:41 PM - Radiology, Oru In Component Results Component Performing Lab Radiology Result (Actionable) (Final) CCRAD ACTIONABLE Comment: This report contains an incidental or actionable finding. This finding may be a new finding separate from the reason your provider ordered the imaging test or it may be an already known finding that needs additional or continued follow-up. Because of this incidental or actionable finding, you may need another test (imaging or a different type of test). Please contact your provider for the next steps. Impression IMPRESSION: 1. No suspicious primary lung malignancy noted. 2. Few scattered small pulmonary nodules measuring less than 5 mm. Incidental Finding: Follow-up Acuity: Incidental Finding: Solid: <6 mm (solitary or multiple) Routing Code: N/A Recommendation: No imaging follow-up is recommended Time Frame: N/A Comments: If there are risk factors for lung malignancy, a follow-up chest CT exam could be obtained in 12 months Physical Chemistry Teacher: RHIANNON Transcribe Date/Time: Nov 25 2022 5:31P Dictated by : TOMAS DEVINE MD This examination was interpreted and the report reviewed and electronically signed by: TOMAS DEVINE MD on Nov 25 2022 5:38PM EST Results-Findings * * *Final Report* * * DATE OF EXAM: Nov 25 2022 12:18PM [facility] 0539 - CT CHEST W IVCON / PROCEDURE REASON: Lesion of brain * * * * Physician Interpretation * * * * EXAMINATION: CHEST CT WITH CONTRAST CLINICAL HISTORY: Brain lesion. Evaluate for occult malignancy. Technique: Spiral CT acquisition of the chest from the thoracic inlet to the upper abdomen following IV contrast. MQ: CTCW_6 Contrast: 100 mL Omnipaque [address] Radiation dose: Integrated Dose-length product (DLP) for this visit = 840 mGy*cm CT Dose Reduction Employed: Automated exposure control(AEC) and iterative recon Comparison: No relevant prior studies available. RESULT: Limitations: None. Lines, tubes, and devices: None Lung parenchyma, pleural space and airways: Lungs are clear of focal consolidation. Few small noncalcified pulmonary nodules are identified. For reference, 3 mm nodule in the posterior RIGHT lower lobe (image 143), 3 mm nodule in the medial RIGHT lower lobe (image 121), 3 mm nodule in the lateral RIGHT upper lobe (image 46) and 2 mm nodules in the lateral LEFT lower lobe (image 100) and LEFT upper lobe (image 53). A calcified granuloma is identified in the anterior RIGHT upper lobe. Mild diffuse bronchial wall thickening is noted. There is mild mosaic attenuation.. Streaky linear bands of atelectasis are present in both lungs. There is mild elevation of the LEFT hemidiaphragm. Minimal biapical scarring is present. There is no pleural effusion. The trachea and central airways appear patent, devoid of endobronchial lesion. Lower neck, lymph nodes, and mediastinum: No obvious abnormality in the imaged thyroid gland. A borderline enlarged 8 mm LEFT hilar lymph node is identified (image 90). There are calcified thoracic lymph nodes suggestive of remote granulomatous disease. The esophagus is mildly patulous. Heart, pericardium, and thoracic vessels: The cardiac chambers are normal in size. There is no pericardial effusion or thickening. The main pulmonary artery is normal in calibre. The thoracic aorta is normal in calibre. The arch branching pattern is normal. Scattered coronary artery calcifications are noted, although the study is not optimized for coronary assessment. Bones and soft tissues: Chest wall soft tissues are unremarkable. The vertebral body heights appear symmetric and well-maintained. Upper abdomen: The concurrently performed CT abdomen and pelvis will be reported separately. Pediatric Dental Assistant (topogram) images: No additional findings. Result History CT CHEST W IVCON (Order #[id number]) on 11/25/2022 - Order Result History Report Result Information Status Provider Status Actionable Final result (11/25/2022 5:41 PM) Reviewed Exam Performed Date and Time 11/25/2022 12:18 PM Resulting Agency DIVISION OF RADIOLOGY [address] [facility] [address] ABD/PEL W IVCON (Acc#[id number]) (Order [id number]) Patient Info Patient Name Sex Josie Santos ([id number]) Female 1965 11/25/2022 12:44 PM - Radiology, Oru In Impression IMPRESSION: No metastatic disease in the abdomen and pelvis. Physical Chemistry Teacher: RHIANNON Transcribe Date/Time: Nov 25 2022 12:23P Dictated by : BLAYNE JONES MD This examination was interpreted and the report reviewed and electronically signed by: BLAYNE JONES MD on Nov 25 2022 12:42PM EST MRI Report MRI BRAIN WO/W IVCON (Acc#[id number]) (Order [id number]) MRI CERVICAL SPINE WO/W IVCON (Acc#[id number]) (Order [id number]) MRI THORACIC SPINE WO/W IVCON (Acc#[id number]) (Order [id number]) MRI BRAIN WO/W IVCON Exam End: 04/19/2023 12:36 PM (Final result) Narrative: * * *Final Report* * * DATE OF EXAM: Apr 19 2023 12:20PM [facility] 0295 - MRI BRAIN WO/W IVCON / PROCEDURE REASON: multiple diagnoses * * * * Physician Interpretation * * * * EXAMINATION: MRI BRAIN WO/W IVCON, MRI THORACIC SPINE WO/W IVCON, MRI CERVICAL SPINE WO/W IVCON Clinical history provided by the ordering clinician via order question and clinical decision support entries: Radiation necrosis/pseudoprogression, Other (specify in question below), Other (specify in question below). Brain/SPECIAL NEEDS BABYSITTER neoplasm, monitor, Metastatic disease evaluation. 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 with perfusion. Stated history: F/U TO PREV. 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 A follow up MRI 09/25/22 revealed that the SCC lesion has slightly progressed in size. Her stroke neurologist Dr. Pro felt that this does not fit with a stroke and because the neuroradiology reading suggest that this could be a glioma, she referred the patient to our [facility] [place] for evaluation, On 11/02/22, she had a biopsy by Dr. Jovel, neurosurgeon at the [facility]. The pathology is basically non diagnostic. TECHNIQUE: Intracranial mass brain MRI protocol without and with contrast including diffusion and gradient echo images. MR perfusion study was also performed of the entire brain following bolus intravenous administration of gadolinium utilizing dynamic susceptibility-weighted contrast-enhanced acquisition. Routine cervical and thoracic spine MR protocol without and with intravenous gadolinium. MQ: [id number]_2 MQ: MRCTLWOW_3 Contrast: 16 mL Dotarem IV COMPARISON: 02/18/2023 brain MRI without and with contrast, 12/09/2022 cervical and thoracic spine MRI without and with contrast. RESULT: BRAIN: Acute Change: No abnormal restricted diffusion to suggest an acute infarct. Hemorrhage: Linear tract of susceptibility associated with the right lateral parieto-occipital approach biopsy in the region of the splenium of the corpus callosum compatible with remote blood byproducts. Otherwise no findings to suggest sequelae of prior parenchymal hemorrhage on the susceptibility weighted images. Mass Lesion/ Mass Effect: Resolution of the previously seen punctate focus of enhancement in the region of the splenium of the corpus callosum, but otherwise stable appearance of the post biopsy changes in the splenium of the corpus callosum with similar heterogenous T2/FLAIR signal hyperintensity extending symmetrically into the forceps major bilaterally. No significant mass effect. Perfusion: Technically adequate, although noncontributory. Chronic Change: Unchanged small foci of T2/FLAIR signal hyperintensity in the supratentorial white matter otherwise, nonspecific, possibly sequelae of minimal chronic microvascular ischemic change. Parenchyma: No significant volume loss for age. The brain parenchyma is otherwise within normal limits of signal intensity and morphology. Ventricles: Normal caliber and morphology. Skull Base: Hypothalamic and pituitary region are grossly normal. Craniocervical junction is normal. No significant marrow replacement process. Vasculature: Major intracranial arterial structures, and dural venous sinuses show typical flow void, suggesting patency by spin echo criteria. Other: No substantial paranasal sinus mucosal thickening. No more than trace fluid in right mastoid air cells. Left mastoid air cells and bilateral middle ear cavities appear clear. The orbits are unremarkable. All maxillary dentition extracted with upper dentures in place and susceptibility artifact along the anterior mandibular region suspected to be related to underlying dental posts and associated hardware. CERVICAL: Counting reference: Craniocervical junction. Alignment: Straightening of the cervical lordosis with preserved vertebral body alignment. Craniocervical junction: Craniocervical junction is normal. Cord: The visualized cord is within normal limits of signal intensity and morphology. No abnormal cord enhancement. Bone marrow signal/fracture: No apparent pathologic marrow infiltration or abnormal enhancement. No findings to suggest sequelae of acute or chronic fracture. Cervical soft tissues: The paraspinal soft tissues are within normal limits. Canal and foramina: C5-C6 shallow central protrusion without substantial spinal canal narrowing. Unchanged C6-C7 disc osteophyte complex contributing to no more than mild spinal canal narrowing. The spinal canal is otherwise widely patent throughout. No substantial foraminal stenosis. THORACIC: Counting reference: Lumbosacral junction. For the purposes of this report, L4-5 is considered the level of the iliac crest and assume there are 5 lumbar-type vertebrae. Anatomic variant: None. Alignment: Alignment is anatomic. Cord: Minimal right ventral cord contour deformity secondary to T7-T8 right central disc protrusion, but otherwise unremarkable signal and morphology of the thoracic spinal cord. No abnormal enhancement. Bone marrow signal/fracture: No apparent pathologic marrow infiltration or abnormal enhancement. Minimal degenerative endplate irregularity along the dorsal midline inferior aspect of T11. No findings to suggest sequelae of acute or chronic fracture. Thoracic soft tissues: The paraspinal soft tissues are within normal limits. Canal and foramina: Unchanged T7-T8 right central disc protrusion abutting and minimally deforming the right ventral cord margin at this level and contributing to no more than mild spinal canal narrowing. No high-grade spinal canal stenosis. The neural foramina appear patent throughout. Localizer images: Few tiny presumed bilateral renal cysts. Impression: IMPRESSION: Resolution of prior seen seen punctate focus of enhancement in the splenium of the corpus callosum biopsy site with otherwise similar surrounding signal changes and no findings to suggest new or progressive abnormality. No abnormal marrow signal changes or enhancement in the cervical or thoracic spine and no high grade spinal canal or neuroforaminal stenosis. Cervical Anatomic Variant: None. Assume 7 cervical vertebrae with counting from the craniocervical junction. Anatomic Thoracic/Lumbar Variant: L4-5 is considered the level of the iliac crest and assume there are 5 lumbar-type vertebrae. Anatomic variant: None. Physical Chemistry Teacher: PSCMayi Transcribe Date/Time: Apr 19 2023 2:31P Dictated by : BLAYNE VINCENT MD This examination was interpreted and the report reviewed and electronically signed by: BLAYNE VINCENT MD on Apr 19 2023 3:00PM EST Assessment & Plan 57 YO RHF who presents back at the end of May 2022, with acute, language dysfunction, visual field deficit and likely alexia, which occur on the day of a cardiovascular procedure, coronary arterystent placement with a brain MRI that reveals a splenium of the corpus callosum abnormality. A follow up MRI 09/25/22 revealed that the SCC lesion has slightly progressed in size. Her stroke neurologist Dr. Pro felt that this does not fit with a stroke and because the neuroradiology reading suggest that this could be a glioma, she referred the patient to our [facility] [place] for evaluation, On 11/02/22, shehad a biopsy by Dr. Jovel, neurosurgeon at the [facility]. The pathology is basically non diagnostic. Symptomatically the patient remains with some language dysfunction, mainly word finding difficulty,right visual field deficit, and likely alexia. Pending: - f/u ENS2 - f/u remaining LP studies: ENC2, MNGS, bacterial culture, fungal culture, AFB culture - neuro-ophthalmology eval to define whether visual field deficit matches with her brain lesions vsother cause - scheduled 12/15 after discharge DISCUSSION: With the constellation of signs and symptoms, including, aphasia., mainly word finding difficulty, dyslexia, confusion, and visual field deficit on the right in the context of a lesion in the SC, this suggests highly a disconnecting syndrome. -Alexia: The patient's description of inability it understands written word is likely alexia, whichcan be seen in disconnecting syndromes, and seen in lesion of the SCC. Typically seen in a lesion of the occipital lobes but also seen in lesions of the SCC. 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 There are reports of this manifestation as published by Arelis Petit et al (1) where they described a patient with SCC infarct and HH, In this paper their conclusion is a follows (excerpt/verbatim from the publication: We hypothesized that right homonymous hemianopsia was caused by an interrupted transfer of visual information at the splenium of the CC across the hemispheres. In other words, we hypothesized that the visibility would not be defined only in the unilateral striate cortex, but also in the bilateral cortexes across the hemispheres. Aphasia: According to the literature splenium of the corpus callosum lesions can cause cognitive problems, change in behavior, confusion even seizures, including aphasia as reported in the literature. I think that the constellation of symptom could be explained by the location of the lesion, and thefact that the lesion persists radiologically and clinically, suggest that the lesion has not improved and slightly progressing as reported in the MRI from 09/25/22, when compared to the MRI from 07/03/2022 and 06/08/2022. Regarding the etiology of the lesion: The pathology was not conclusive. The initial working diagnosis because of the acute/subacute presentation and in the context that occurred on the day of a vascular procedure, coronary artery stent, a CVA was considered for which thepatient saw cerebrovascular/stroke neurology Dr. Pro. She had CVA work up. However, because of the MRI from 09/25/22, showed slight progression of the lesion, the differential radiological diagnoses was narrowed to possible glioma. Her stroke neurologist Dr. Pro has deemed that this is not astroke and referred her to the [facility] [place] and had a biopsy by Dr. Feliz on 11/04/22, and as I said the pathology is not diagnotic. Considering the presentation the differential diagnosis is: -STROKE Other possibilities: -Glioma -Unlikely encephalitis in light of the timeline, but an indolent encephalitis can still be possible -Venous infarct (6) -Demyelination - due to MS, unlikely due to age but can be seen, and or other inflammatory 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 entities. -Paraneoplastic syndrome. Differential diagnosis from a publication by AJR: Lipoma Glioma: low grade or high grade Lymphoma Juvenile Pilocytic Astrocytoma Demyelinating Diseases -Multiple Sclerosis Progressive Multifocal Leukoencephalopathy Marchiafava-Bignami Disease - unlikely S she does no drink ETOH in large amounts. Infarction - see above. Arteriovenous Malformations - had a CTA by Dr. Pro and showed no abnormalities. Trauma Susac Syndrome (SS) (From [employer] (excerpt/verbatim). SS is a presumed to be caused by autoimmune endotheliopathy , resulting in microinfarcts of the precapillary arterioles of the brain, retina, and inner ear (cochlea and semicircular canals).[2][3] The exact mechanism is unclear, but pathogenesis does resemble the microinfarction of muscle and skin seen in juvenile dermatomyositis. Susac syndrome (SS)) is a rare condition characterized by the clinical triad of encephalopathy, branch retinal artery occlusion (BRAO), and sensorineural hearing loss. However, all three features may not be present concurrently upon initial presentation. This condition may also be referred as small infarctions of cochlear, retinal, and encephalic tissue (SICRET), microangiopathy with retinopathy, encephalopathy, and deafness (RED- M), and retinocochleocerebral vasculopathy.[1][2] Unlikely that the patient has Susac Syndrome, as she does not meet the clinical triad, however thisis still in the differential. After the biopsy the diagnosis is till elusive, and the differential diagnosis from my perspective remains as above, as I cannot exclude a possible entity for sure. 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 I will refer the patient to se Dr. Carrizales who is also a neurologist. Other colleagues that I think will be valuable for her care would be neuro- immunology to get their input as to a possible neuro immunological explanation for her presentation. Neuro ID input would be also helpful. Of course, o follow will with Dr. Pro and I would welcome her continued input, in light that per pathology there is no evidence of glioma. As her case is set to be presented to Brain Tumor Board today, I will wait for any further commentsfrom neuropathology that could shed a better light to the etiology of this lesion. I will also welcome the multidisciplinary input. In the interim Mrs. Landis should have a short interval MRI to define whether this lesion is progressing or regressing. Her last brain MRI is from . REFERENCES: 1-Marisabel Salazar, Barber H, Franny H, et al. 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 Cureus 13(11): p35152. doi:10.7759/cureus.74288), 2-Graham Paul eta al. Clinical features of acute corpus callosum infarction patients. Int J Clin Exp Pathol. 2014; 7(8): 9925-3136. 3-Damari Guerrero. 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 Brain Behav. 2019 Mar;9(11): m87556. 4-Conrado Cook and Holly Ley. 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 BMJ Case Rep. 2014; 2014: [id number]. 5-paris Pelayo al. Alexia Without Agraphia: A Rare Entity. Cureus. 2017 Chon; 9(6): e1304. 6-Lewis Sullivan MD; Ruchi Torre MD. Splenium Infarct Due to Cerebral Venous Thrombosis. Arch Neurol. 2007;64(10):1540. 7-Shelton Stevenson et al. Lesions of the Corpus Callosum: MR Imaging and Differential Considerations in Adults and Children. 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 11/17/2022. Recommend to refer her to neuroimmunology for an opinion. -Full spine MRI w and w/o contrast for work up for 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 disease, and or drop metastasis. -CT chest and pelvis (if NEG a PET scan of the brain/full body), she is at risk of lung CA with 40 year H/o smoking -LP with CSF analysis to exclude POS malignant cytology, and or paraneoplastic AB, and or infectious process. 12/09/2022: -issues worsening,gait difficulty, memory and vision. Although her repeat MRI from 12/07/22, shows no change, it is concerning that her symptoms are worsening, with no definite answer. I think that in order to expedite the planned work up and hopefully to get an answer for the patient, I think admitting the patient is what I would recommend. I spoke with Dr. Triston Lozano, neurology staff for primary neurology service, and discussed patient's case. Dr. Lozano, agreed that the patient requires admission to neurology to expedite work up and to elucidate any pathology that may require rather rapid intervention. I explained the above to the patient and family and they agreed. I called admissions, and the patient will be admitted under Dr. Lozano, who has accepted the patient. In addition to the work up and consults as noted below, further work up as Dr. Lozano may deem necessary. The work up will also include LP for CSF analysis. 12/09/22 - 12/15/22. Admitted to for further evaluations -12/10/22 MRI spine: 1. Mild enhancement of the right S1 cauda equina nerve root and equivocal enhancement of the left S1 cauda equina nerve root. 02/18/23 No change in symptoms No new symptoms -MRI brain some improvement in CC lesion, but enhancement at the site/adjacent to the biopsy site, radiology says could be post biopsy changes VS neoplastic/or other entity. -MRI lumbar region, shows other nerve rot enhancement, see above. The significance of these MR change sis unclear but I think that a second LP is warranted. The goalis to exclude the best possible leptomeningeal metastasis. Also the patient has been seen by Dr. Lozano from neuro-immunology and I will welcome his valuable input. 04/28/23 The patient is stable symptomatically. The follow-up MRI of the brain April 19, shows no progression of the corpus callosum lesion. The MRIs of the cervical and thoracic spine shows no cord lesions. Note that, the follow-up from the rheumatology with , and Dr. Villanueva, nonoperative, and the second MTP from March 22, that is [place] cytosis. They presented the patient to their neuro immunology multidisciplinary meeting, and it is noted, that the etiology of this lesion is still unclear. They still entertain the possibility of nonspecific informatory etiology. They will follow the patient in 2 months at the time they saw the patient on March 30, 2023, and they indicated, consideration for repeat CSF analysis. Discussion: From my perspective, as already noted, the etiology of the corpus callosum lesion is unclear. Extensive workup has been done as already demented. Although the possibility of autoimmune process, is there, and glioma cannot be excluded. Infectious etiology, also probably low on the differential but cannot be completely excluded, although all the test for infection has been negative. At this point, I agree, will continue clinical and imaging surveillance. I will ask or neuro immunology colleagues, follow the patient, and for them to drive, the decision to do another lumbar puncture for CSF analysis, with testing per their discretion. If they do another lumbar puncture, I think cytology will be also reasonable. I noted, that we will neuro immunology colleagues, reviewed the lumbar MRI, see reports form 02/18/23, and 12/09/22, that reported, enhancing abnormality, but there conclusion was that he was a vein. Referral to be [facility] infectious diseases group, is a consideration, to get their opinion, whether there might be still a possibility of an infectious etiology. Furthermore, I recommend for the patient, to consider a second opinion at the large academic institution preferably. Thus institutions could include, in [facility], and [facility] institutions in the area, or region would be [facility], [facility], [facility], [facility] in [place], or further away, at [facility] in [facility] or on the [facility], [facility], or one of the Hospitals, at [facility], i.e., [facility]. PLAN: 1-Splenium of the corpus callosum lesion, etiology unclear: S/P biopsy with non diagnostic pathology. Work up so far unremarkable. Plan to do an MRI of the brain w and w/o + perfusion in 3 month's time. -Follow up in my neuro-oncology clinic 1-2 days after the MRI if the MRI is done at a different [facility], or the same day if the MRI is done at . -If the lesion were to change, and or patient develops symptom, that may be related to the lesion, she may need a 2nd biopsy. The patient to consider a 2nd opinion at a large academic institution, preferably, as above noted. 2-Lumbar MRI 02/18/23 reported as: Mild enhancement of the RIGHT S1 nerve root, not significantly changed in appearance from 12/09/2022, with new mild enhancement of the RIGHT S2 nerve root. Previously queried equivocal enhancement of the LEFT S1 nerve root is no longer definitively seen. The significance of the above is unclear, whether this signifies progression of an entity still of unclear etiology, is not known for now. -As above noted, a repeat lumbar puncture for cytology is warranted. I proposed a 2nd, if NEG a 3rdLP I recommend. As the 2nd, and 3rd LP increased the yield to identify malignant cells. Repeat lumbar spine MRI w and w/o in 3 months time. 3-Paresthesias of arms/hands. Resolved. -04/19/23 MRI C-spine w and w/o thoracic spine MR w and w/o contrast, NEG -Continue surveillance. The patient/family was advised to call if symptoms worsen and she may need to be evaluated sooner, or go to the ED. 4-Follow up with neuroimmunology: Has seen Dr. Albarado and Dr. Villanueva. -I will ask this team to drive the need for a 3rd Lp for Csf analysis , and CSF work up as they deem needed (I would also ad cytology if the LP is done again). 5-Referral to Neuro ID for opinion whether the SCC lesion is of infectious etiology, i.e., indolentprocess, and recommendations on further work up. 6-Referral to neuro-ophthalmology: Was seen by neuro-ophthalmology 12/15/22. 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 To follow up with neuro-ophthalmology. 7-Follow with Dr. Pro from cerebrovascular/stroke neurology. 8-Follow with her project control manager for her CAD, S/p coronary artery stents. 9-Follow with her PCP for general medical care/coordination of care, Dr. Cool. 10-Not to drive a car or any other motorized vehicle, and not to engage in activities that could place her at risk to her and or others of injury is she were to have episodes of confusion. 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 For now, as she had episodes ofconduction which have not been clarified yet, also she has a visual field deficit on the right. Herdriving privileges to be resumed depending on her progress/entities found. 11- CT chest:11/25/22: 1. No suspicious primary lung malignancy noted. 2. Few scattered small pulmonary nodules measuring less than 5 mm. Comments: If there are risk factors for lung malignancy, a follow-up chest CT exam could be obtained in 12 months NOTE: the patient has risk factor for lung CA she has been smoking tobacco for many yeas. -CT chest/abdomen and pelvis w and w/o contrast No metastatic disease in the abdomen and pelvis. 12/14/22 PET scan: No hypermetabolic lesions seen. PCP to do follow up CT chest, in 6-12 months time. 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 Based on her duties, I think Mrs. Landis, would not be able to complete the task she reports she needs to do for ehr job. She says she will be filing for disability, and we will support that. She should also seek help form her PCP. ORDERS: Associate Signed Orders Orders Signed This Visit (1) CONSULT TO INFECTIOUS DISEASES NEURO ID Routine, Dx: 1. Brain lesion 2. Visual field defect 3. Lesion of brain I saw the patient in collaboration with Heide Dumont RN [facility] In the end the patient and family verbalized understanding of the above, they had questions which Ibelieve I answered to their satisfaction and agreed with these recommendations and had no further questions or concerns for the moment, but I encourage them to call the [facility] with any questions or concerns. I spent a total of 61 minutes on the date of the service which included preparing to see the patient, at least 50% of [id number] patient care, completing clinical documentation, obtaining and/or reviewing separately obtained history, performing a medically appropriate examination, counseling and educating the patient/family/caregiver, ordering medications, tests, or procedures, communicating with other HCPs (not separately reported), independently interpreting results (not separately reported), communicating results to the patient/family/caregiver and care coordination (not separately reported). Codie Soto MD Staff Neuro-Oncologist [facility] [place], [place] CC: CC -Carlos Jovel MD, Neurosurgery, [facility], [facility], [facility] CC: Rad Pro DO, Vascular Neurology, [facility] CC: Dr. Solis Cool DO, PCP, [address] [place] [address] [address] [id number], ; -Triston Lozano MD, Neurology/Neuroimmunology, [facility] -David Rios MD, Neuro-ophthalmology, [facility] -Americo Haney DO, Infectious Disease, [facility] -Rich Gudino MD, Neuro-Immunology, Neurology, [facility] -Berto Albarado MD, Neuro-Immunology, Neurology, [facility] documented in [facility] Instructions* Patient Instructions* Rich Gudino MD - 03/30/2023 12:06 PM EST We would like to check some blood tests today. We agree with repeating your MRI scans in April as scheduled. Please continue to follow up with Dr. Soto. We would like to see you again in about 2 months. In the meantime, please do not hesitate to contact us with any questions or concerns. documented in this encounterCincinnati [facility]11[facility]28-[facility] History of Present illness Narrative* Berto Albarado MD - 03/30/2023 11:15 AM EST Images from the original note were not included. [facility] FOLLOWUP/ESTABLISHED PATIENT VISIT Also followed by: Patient Care Team: Solis Cool DO as PCP - General (Internal Medicine) Corrie Alvares as Referring (Cardiology) Rad Pro DO (Neurology) Christine Aguayo LSW as Rat Exterminator (Hematology/Oncology) PRINCIPAL NEUROLOGIC DIAGNOSIS: Abnormal brain lesion (non-enhancing corpus callosum lesion); Possible right cauda equina enhancement DISEASE SUMMARY Date of onset: May 2022 Date of diagnosis of MS: N/A Disease course at onset: Relapsing-Remitting Current disease course: Progressive without relapses Previous disease therapies: - Dexamethasone taper 11/05 - 12/04/2022 Current disease therapy: None Most recent MRI brain: 02/18/2023 (decreased conspicuity and intensity with some improvement in CC lesion with new focus of enhancement adjacent to biopsy site vs. 12/07/2022) Most recent MRI cervical spine: 12/10/2022 Most recent MRI thoracic spine: 12/10/2022 Most recent MRI lumbar spine: 02/18/2023 (mild enhancement of right S1 nerve root stable vs. 12/10/2022 but new mild enhancement of right S2) CSF: - 12/10/2022 (RBC 1, WBC 2, Protein 81, IgG index 0.54, IgG synthesis rate 1.7, OCBs negative, ENC2 negative, HSV PCR negative, MNGS negative, cytology negative) - 03/22/2023 (RBC 2, WBC 16 [95% lymph], Protein 89, Glucose 70, VDRL negative, Lyme negative, Flowcyto negative) JCV serology result and date: None Brain biopsy: 11/04/2022 right corpus callosum (minute focus of atypical cells in a reactive background; gliosis with scattered macrophages) Serum: - 2022: ENS2 negative, CDS1 negative, HIV negative, lyme negative, syphilis negative, ESR/CRP wnl, TSH wnl, B12 wnl Systemic imaging: - 11/25/2022 (CT chest, abdomen, and pelvis few scattered pulmonary nodules) - 12/14/2022 (PET whole body negative; CC lesion without significant uptake) CHIEF COMPLAINT: Review diagnostic testing results and discuss implications INTERVAL HISTORY: The patient is accompanied by her daughter. The patient was last seen 01/12/2023. Since the patient's last visit the patient reports overall feeling stable without any new symptoms. She has been seeing physical therapy for her balance which has helped. She stopped Tegretol about 1.5 months ago (suspicion that potentially contributed to CC lesion). She also started weaning topiramate per her psychiatrist this past Wednesday to avoid polypharmacy. She is also cutting down the evening dose of clonazepam. She denies suicidal ideations or manic episodes although has been depressed due to inactivity although she has a new puppy which has helped with her mood. She continues to have cognitive problems ( memory). She denies bowel or bladder symptoms. She continues to have a patch of numbness over the anterior left thigh but no new symptoms in the right leg. She does endorse intermittent episodes of bilateral arm numbness lasting a few minutes over the past month. Refer to patient-entered data. Neuro-QoL Functions (higher=better functioning) Flowsheet Row Office Visit from 03/30/2023 in [facility] Office Visit from 01/12/2023 in [facility] Upper Extremity Domain T Score 44.04 49 Lower Extremity Domain T Score 44.4 37 Cognitive Function Domain T Score 25.15 27 Positive Affect Well Being T Score -- -- Ability To Participate In Social Roles T Score 39.9 41 Satisfaction With Social Roles T Score 44.64 34 Neuro-QoL Symptoms (higher=worse symptoms) Flowsheet Row Office Visit from 03/30/2023 in [facility] Office Visit from 01/12/2023 in [facility] Sleep Domain T Score 62.43 64 Fatigue Domain T Score 51.85 65 Anxiety Domain T Score 68.63 66 Depression Domain T Score 56.56 65 Stigma Domain T Score 61.15 58 Emotional Behavior Dyscontrol T Score -- -- has a past medical history of Asthma due to seasonal allergies (11/02/2022), Basal cell carcinoma (BCC) of cheek (2020), Bipolar affective ([facility]), Coronary artery disease, Coronary artery disease involving wiyot coronary artery of wiyot heart without angina pectoris (11/02/2022), Gastroesophageal reflux disease without esophagitis (11/02/2022), Hyperlipidemia, Primary hypertension (11/02/2022), Seizures ([facility]) (11/02/2022), and Stroke ([facility]). has a current medication list which includes the following prescription(s): probiotic, isosorbide mononitrate er, aspirin, enteric coated, albuterol hfa, evolocumab, ondansetron, pantoprazole dr, acetaminophen, senna-docusate, hydrochlorothiazide, bupropion xl, clonazepam, trazodone, vilazodone, losartan, metoprolol succinate er, ezetimibe, cariprazine, and topiramate. EXAM: BP 108/65 Pulse 68 Ht 170.2 cm (5' 7) Wt 79.4 kg (175 lb) BMI 27.41 kg/m Multiple Sclerosis Performance Test Flowsheet Row Office Visit from 03/30/2023 in [facility] Office Visit from 01/12/2023 in [facility] Processing Speed Total Number Correct 38 28 Low-contrast letter acuity test-2.5 percent opacity 31 28 Low-contrast letter acuity test-100 percent opacity 58 57 Dominant hand -- Right hand MDT Left Hand Time 29.61 30.44 MDT Right Hand Time 24.74 27.72 Walking Speed Test (25 feet) 6.81 9.08 General Appearance: well appearing, in no acute distress Mental status evaluation during the interview and examination showed normal level of consciousness,language, memory, praxis, and higher intellectual function Affect: Normal Visual gupta notable for right HH. Extraocular movements: full, without AYANA Facial sensation: Intact bilaterally Facial movements: Intact bilaterally Speech: normal Muscle tone: Right arm spasticity: None Right leg spasticity: None Left arm spasticity: None Left leg spasticity: None Muscle strength (#/5): Right Left Upper Extremity: Deltoids 5 5 Biceps 5 5 Triceps 5 5 Finger extension 5 5 Dorsal interossei 5 5 Lower extremity: Iliopsoas 5 5 Quadriceps 5 5 Hamstrings 5 5 Tibialis anterior 5 5 Gastrocnemius 5 5 Reflexes: brachioradialis ++ brachioradialis ++ biceps ++ biceps ++ triceps ++ triceps ++ patellar ++ patellar ++ Achilles ++ Achilles ++ plantar response down plantar response down Coordination: Upper extremity dexterity and rapid movements: Normal bilaterally Finger-nose: no dysmetria; coordination intact Heel-bergeron: no dysmetria; coordination intact Sensory Perception: Intact to light touch in bilateral upper and lower extremities Standing balance: Normal Standard gait: normal. Assistive device: independent Tandem walking: Normal RESULTS: CBC + Diff Component Value Date WBC 4.74 12/15/2022 HB 12.2 12/15/2022 HCT 37.2 12/15/2022 PLT 179 12/15/2022 ABSLYMPH 1.50 12/09/2022 CMP Component Value Date AST 14 11/20/2022 GLUC 97 12/15/2022 BUN 9 12/15/2022 CREAT 0.95 12/15/2022 NA 137 12/15/2022 K 3.9 12/15/2022 CHLOR 104 12/15/2022 ALT 29 11/20/2022 MRI Results: MRI brain and lumbar spine w/wo 02/18/2023: Decreased conspicuity and intensity of now somewhat heterogeneous T2/FLAIR hyperintense lesion in the corpus callosum splenium with slight interval decrease in degree of expansion noted on prior study. New tiny focus of enhancement along the ventral and superior margins of the cystic portion of the lesion and adjacent to the biopsy tract may represent neoplastic/inflammatory enhancement versus postbiopsy change. Continued attention on follow-up is recommended. Mild enhancement of the RIGHT S1 nerve root, not significantly changed in appearance from 12/09/2022, with new mild enhancement of theRIGHT S2 nerve root. Previously queried equivocal enhancement of the LEFT S1 nerve root is no longer definitively seen. ASSESSMENT/PLAN: 57 year old right handed female with abnormal MRI brain and other relevant PMHx of CAD s/p stent placement (4 stents total, latest stent placed May 2022), HTN, HLD, bipolar disorder, seizure-like episodes, and tobacco use history presenting for follow up on evaluation of abnormal brain lesion (corpus callosum lesion). She developed right HH, alexia, aphasia, and confusion post recent stent placeme nt in May 2022 (in retrospect patient may have had some mild memory impairment for the preceding 6 months). MRI brain for the first time in Jun 2022 showed a CC FLAIR lesion without GdE initially attributed to daly-procedural infarct but noted to have progression in size of lesion in August 2022 whichprompted referral to brain tumor s/p right stereotactic biopsy which was non-diagnostic. She was admitted to hospital in Dec 2022 due to worsening of symptoms with extensive evaluation including PET scans, CT chest/abdomen/pelvis without clear primary malignancy or FDG uptake and CSF without evidence of inflammation, malignancy, or infections (including MNGS). Neuroaxis imaging demonstrated possible enhancement in right S1 nerve root. Repeat imaging again in January 2023 showed stable lesion (with new punctate enhancement at biopsy site), persistent enhancement of right S1 and new enhancementof right S2. CSF was repeated with neuro-oncology which showed new lymphocytic pleocytosis. Neurologically she remains stable. Overall, the etiology of the CC lesion remains unclear despite extensiveevaluation but inflammatory etiology remains highest on the differential although malignancy continues to be evaluated. At this time, we would recommend holding off on immunotherapy with close monitoring. PLAN: - SPEP and CARTER testing today. - Will discuss imaging during our neuroradiology meeting. - Repeat MRI brain and follow up with Dr. Soto as scheduled. - Would be reasonable to proceed with repeat CSF again if scheduled with Dr. Soto. - Follow up with us again in about 2 months. Future Appointments Date Time Provider Department Center 04/19/2023 10:00 AM MRI [facility] (I-STAT/1.5T) RMRIDANGELO Bernard 04/21/2023 1:30 PM Codie Soto MD [facility] [place] [facility] Office Visit on 03/30/23 IMMUNOFIXATION SCREEN, SERUM PROTEIN ELECTROPHORESIS SERUM W/INTERP Seen with Dr. Albarado. Rich Gudino MD Neuroimmunology Fellow [facility] for Multiple Sclerosis Patient seen and evaluated. She continues to recover from a large posterior corpus callosum 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 lesion with a couple additional, non-specific spots elsewhere in her purvi. At this point, she does not fulfill diagnostic criteria for multiple sclerosis and the very large size of the lesion decreases her risk to develop multiple sclerosis in the future. Nonetheless, she needs continued monitoring and follow-up imaging, along with Dr. Soto in neuro-oncology. Other details as above. Berto Albarado MD documented in this encounterCincinnati [facility]11-20-2023 Nurse Note* Sheila Obrien RN - 03/22/2023 8:00 PM EST Completed post procedure phone call. Josie is feeling well and has returned to her baseline diet and activity. Denies questions or concerns related to her LP appointment on 03/22/2023 and had no surgical site concerns. Sheila Obrien RN documented in this encounterCincinnati [facility]11-20-2023 Surgical operation note* Brief Op Note - Americo Hernandez PA-C - 03/22/2023 9:32 AM EST BRIEF OP NOTE LOG ID: [id number] Surgery/Procedure Date: 03/22/2023 Incision/Procedure Start Time: 9:15 AM Incision Close/Procedure End Time: 9:30 AM Surgeon(s)/Proceduralist(s) and Form Tamper Operator(s): Americo Hernandez PA-C - Primary Procedure(s): LP under fluoroscopic guidance. Anesthesia: Local Findings: LP L3/4 right; OP = 21; 22 cc csf Estimated Blood Loss: 0 ml Specimens: CSF to lab Complications: None Pre-Op/Pre-Procedure Diagnosis: Brain lesion Post-Op/Post-Procedure Diagnosis: Same SIGNATURE: Americo Hernandez PA-C PATIENT NAME: Josie Landis DATE: March 22, 2023 TIME: 9:33 AM PAGER/CONTACT #: [phone] documented in this encounterCincinnati [facility]11-09-2023 History of Present illness Narrative* Heide Dumont RN - 03/11/2023 5:40 PM EST Disability paperwork completed by Dr Huizar. Forms and office notes have been given to secretarial support to mail to her HR department with tracking. They will document the tracking information separately. Heide Dumont RN, BSN Scarf Gluer [facility] documented in this encounterCincinnati [facility]10-27-2023 Miscellaneous Notes* Telephone Encounter - Raeann Maria - 02/26/2023 4:43 PM EDT Please speak with Rosario before scheduling further. * Telephone Encounter - Heide Dumont RN - 02/23/2023 3:44 PM EDT Time Frame: 1-2 weeks Orders: Lumbar puncture under fluroscopy IR at Provider: first available Diagnosis: splenium of the corpus callosum lesion -Dr Huizar will review and call with results Time Frame: 2-3 weeks Orders: MRI Cervical and Thoracic Spine- Ok at [place] Provider: Dr Huizar ok for VV within 1-2 days of scans Diagnosis: brain lesion Time Frame: April 19 Orders: MRI Brain and MRI Lumbar spine- ok for [place] Provider: Dr Huizar in person within 1-2 days of visit- or same day if at Diagnosis: brain lesion documented in this encounterCincinnati [facility]10-27-2023 Miscellaneous Notes* Telephone Encounter - Heide Dumont RN - 02/26/2023 2:02 PM EDT Contacted by [employer]10 microwave oven assembler that patient had arrived for scheduled lab work. Patient had been called and told she was having a lumbar puncture at 1pm and needed labs. The lab requisition was printed and the microwave oven assembler noticed it was for CSF labs and contacted the office. Patient has not been scheduled for her LP at this time. I also spoke to the patient's who told me they were called and told she was to come for her LP. Labs were canceled but need to be re-entered. Scheduling was able to get her scheduled for the Lumbar puncture for 03/22 Heide Dumont RN, BSN Scarf Gluer [facility] documented in this encounterCincinnati [facility]10-19-2023 History of Present illness Narrative* Codie Soto MD - 02/18/2023 2:31 PM EDT Images from the original note were not included. 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 The patient is accompanied by her Marciano (2nd ), and her daughter Beena. Subjective History of Present Illness: 57YOF who has CAD, and has had 4 stents, the 1st 2 were done 4 years ago, and the last one was done in May 2022. On the day of the last coronary artery stent, she had a sudden sensation that something was wrong, as she said she became suddenly dyslexic. On further questioning, she was having what appears to have aphasia in the form of word finding difficulty, as well difficulty reading, she says that whatever she would read she could not understand the witting, and she also felt off mentally, meaning somewhat confused. No define LOC/passing out/nor syncope. Another symptom she noted is that she cannot see out of the right side of her peripheral vision,a dthis has continued like that. She saw her eye doctor she said and is the one who noticed also the visual field deficit ( I do nothave those records for my review). On 06/08/22, she sima to [facility] for the above issues. She saw cerebrovascular/stroke neurologist Dr. Pro and did extensive work up for possible CVA. On 10/21/22, Dr. Pro based on the MRI from that showed alight progression of the lesion, with the concern that this is a glioma referred the patient to our [facility] for evaluation. Dr. Feliz performed a biopsy on 11/04/22. The pathology is non diagnostic for a brain tumor, a glioma, which is the concern from the radiological perspective as the lesion has progressed in size slightly. The pathology is reported as: FINAL DIAGNOSIS A. Brain, right corpus callosum lesion, stereotactic biopsy - Minute focus of atypical cells in a reactive background; - See comment. B. Brain, right corpus callosum lesion, stereotactic biopsy - Gliosis with scattered macrophages Diagnosis Comment The biopsy shows focal hypercellularity at one corner (less than 5% of tissue submitted) with atypical angulated elongated nuclei and fibrillary background suspicious for glioma. Unfortunately this area is only present on the frozen section slide and is cut through on the resubmitted tissue. It is not present in any of the other slides/block submitted. The remainder of the specimen shows white matter with scattered foamy macrophages and gliosis. Part B shows white matter with scattered macrophages and gliosis but does not have the atypical area noted in frozen section. Immunohistochemical stains performed to help with classification show thefollowing (B1): CD68 highlights scattered macrophages; IDH1 R132H negative (wt); ATRX retained; p53 strong nuclear positivity 10%; Ki-67 proliferative index 1%; BRAF V600E negative (wildtype); H3 K27M negative (wt); H3 K27me3 retained; Luxol fast blue focal mild loss; Neurofilament cocktail with focal decreased axons; GMS negative for fungus; Gram negative for bacteria. FISH for EGFR reported separately. Slides also reviewed by Drs. Maria Luisa Leonardo and Jesu Narvaez who agree. As of today, she has persistent, difficulty both findings work, she still has the visual field deficit, which has extended to the lower quadrant as the initial report was that she had a right superior quadrantanopia. Also, she still feels foggy, meaning not very sharp mentally, yet she is still able to perform her ADL's. She is also having poor sleep. She says that she has been taking a multivitamin for many years, and she stopped them the week prior to the last stents, as per doctors' advice. No weight lost. No change in diet No new medications No similar history of the above No known neurological issue/diseases. She reports that she has bipolar disorder. Heide Dumont RN at 11/12/2022 7:44 AM Patient is a 57 y/o female from [place], [place] with PMH CAD (s/p stent placement- on ASA and Plavix), HTN, Asthma Reason for consult: brain lesion Surgery: 11/04/22- Right sided brain biopsy of corpus callosum lesion Pathology: Minute focus of atypical cells in a reactive background; Gliosis with scattered macrophages. EGFR NOT AMPLIFIED CD68 highlights scattered macrophages; IDH1 R132H negative (wt); ATRX retained; p53 strong nuclear positivity 10%; Ki-67 proliferative index 1%; BRAF V600E negative (wildtype); H3 K27M negative (wt); H3 K27me3 retained; Luxol fast blue focal mild loss; Neurofilament cocktail with focal decreased axons; GMS negative for fungus; Gram negative for bacteria. Neurosurgeon Dr Jovel Radiation oncologist: None Cardiovascular neurology_ Dr Pro AED: None Steroids: Decadron 2mg tablet- tapers to 2mg to twice daily without further instructions Treatment: none Pertinent History: per epic review 57 y/o female admitted to [facility] due to confusion and aphasia on 06/08/22. Recent coronary stent placement and stroke work up included CT and MRI Brain which revealed a faint diffusion restriction in the splenium corpus callosum. More prominent FLAIR change in this area. Some FLAIR changes s ubcortical in right (2) and left (1) white matter without diffusion restriction. She was dischargedhome and a repeated MRI on 07/03/22 showed a corpus callosum splenium nonenhancing expansile lesionwith internal cystic/necrotic foci, grossly stable compared with 06/08/2022 She was seen by vascular neurology- Dr Pro on 08/25/22- fper her notes- elt off since June. noted some changes in her speech and driving. 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 Review of CTA head ->normal cerebrovascular circulation. ECHO - No PFO PLan for repeat MRI , [facility]. Repeat MRI done 09/25/22 showed progression of lesion and she was seen by Dr Jovel on 10/27/22 Ather visit she was still having difficulty reading/writing, balance issues, recall issues and had lost peripheral vision on the Right. She was unable to work or drive. Recommendations made for brain bi opsy s/p 11/04/22- Right sided brain biopsy of corpus callosum lesion MRi Brain 09/25/22 Infiltrative process in the splenium the corpus callosum which, in view of the slight interval progression since the prior studies, would be worrisome for a glioma. MRi Brain 07/03/22 Corpus callosum splenium nonenhancing expansile lesion with internal cystic/necrotic foci, grossly stable compared with 06/08/2022. This is of indeterminate etiology, with considerations including sequela of a 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 process (noting additional patchy foci of signal abnormality in the cerebral white matter) versus other inflammatory, post infectious or cytotoxic process. Note that low-grade neoplasm is not excluded, and continued follow-up is recommended. Heide Dumont, RN, BSN Scarf Gluer [facility] 11/17/2022 INTERIM EVENTS No new symptoms She is joseph to go oveer the Brain tumor Board recommendations. 12/09/2022: INTERIM EVENTS. She is here to go over the MRI of the brain done on 12/07/22, and CT chest/abd/pelvis. The patient is accompanied by her Marciano (2nd ), and her daughter Beena. -issues worsening,gait difficulty, memory and vision. Although her repeat MRI from 12/07/22, shows no change, it is concerning that her symptoms are worsening, with no definite answer. I think that in order to expedite the planned work up and hopefully to get an answer for the patient, I think admitting the patient is what I would recommend. I spoke with Dr. Triston Lozano, neurology staff for primary neurology service, and discussed patient's case. Dr. Lozano, agreed that the patient requires admission to neurology to expedite work up and to elucidate any pathology that may require rather rapid intervention. I explained the above to the patient and family and they agreed. I called admissions, and the patient will be admitted under Dr. Lozano, who has accepted the patient. In addition to the work up and consults as noted below, further work up as Dr. Lozano may deem necessary. The work up will also include LP for CSF analysis. December 24, 2022 INTERIM EVENTS Virtual visit Patient is accompanied by her daughter and . DISCHARGE SUMMARY NEUROLOGY PATIENT NAME: Josie Landis ADMISSION DATE: 12/09/2022 DISCHARGE DATE: 12/15/2022 ATTENDING: No att. providers found Code Status: Not on file PCP: Solis Cool DO HOSPITAL COURSE: 57 yo RHF PMH of CAD s/p stent placement (4 stents total, latest stent placed May 2022), GERD, HTN,bipolar, 40-year tobacco use history, asthma presenting with 6-month history of word-finding difficulty, alexia, visual field deficit i/s/o brain MRI with splenium of corpus callosum lesion, progressive in size on follow-up MRI. Outpatient stroke evaluation feels her presentation is not c/w stroke.She is now s/p biopsy on 11/02, of which pathology was non-diagnostic. She presents 12/09 as a direct admit from clinic for further workup and evaluation. #splenium of corpus callosum lesion - Per Dr. Bhupendra Armstrong: with the constellation of signs and symptoms, including aphasia (mainly word finding difficulty), alexia, dyslexia, confusion, and visual field deficit on the right in the context of a lesion in the CC, this suggests highly a disconnecting syndrome - previous workup to date: - MRI brain 06/08 with faint diffusion restriction in the splenium of the corpus callosum, with some faint ADC hypointensity and FLAIR changes in subcortical right and left white matter without diffusion restriction - MRI brain 07/03 with corpus callosum splenium nonenhancing expansile lesion with internal cystic/necrotic foci. Interval progression on 09/25 MRI. - S/p stereotactic needle biopsy on 11/04, pathology: The biopsy shows focal hypercellularity at one corner (less than 5% of tissue submitted) with atypical angulated elongated nuclei and fibrillary background suspicious for glioma. Unfortunately this area is only present on the frozen section slide and is cut through on the resubmitted tissue. It is not present in any of the other slides/block submitted. The remainder of the specimen shows white matter with scattered foamy macrophages and gliosis - S/p decadron taper from 11/05-12/04 - CT C/A/P 11/25 with no suspicious primary lung malignancy noted, observed few scattered small pulmonary nodules measuring less than 5 mm. - MRI brain 12/07 with unchanged appearance of the nonenhancing mildly expansile splenial lesion s/p biopsy; no evidence of leptomeningeal disease, no elevated CBV in the splenium of the corpus callosum or elsewhere - workup on during [facility] admission: - MRI C/T/L WWO 12/10 mild enhancement of the R S1 cauda equina nerve root and equivocal enhancementof the L S1 cauda equina nerve root. No definite enhancement is identified in the other cauda equina nerve roots. These findings are nonspecific given the relatively limited distribution and the nonenhancing nature of the primary lesion in the corpus callosum. No 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 disease, drop mets - LP 12/10 - routine analysis and cell count wnl, protein 81, glucose 64, no organisms on C+S prelimresult, IgG/Alb ration 0.08, HSV negative, Cryptococcal Ag negative, MBP 8.63, oligoclonal bands negative, cytology unremarkable, flow cytometry with no evidence of lymphoproliferative disorder, - PET scan 12/13 Brain: No hypermetabolic lesions in the brain to suggest metastases or FDG avid neoplastic process. The lesion in the posterior corpus callosum demonstrated no significant FDG uptake. The findings compatible with low-grade neoplasm or nonneoplastic process. No focal uptake in the head and neck, chest, abdomen and pelvis, or extremities. -- per ID consult: HIV screen, remote hep screen, histo urine antigen, Mycoplasma IgG all unremarkable Plan - f/u ENS2 - f/u remaining LP studies: ENC2, MNGS, bacterial culture, fungal culture, AFB culture - neuro-ophthalmology eval to define whether visual field deficit matches with her brain lesions vsother cause - scheduled 12/15 after discharge No new issues She is here for post hospitalization follow up. Last Chemo: N/A Current Steroids dose: Start End dexAMETHasone (DECADRON) 2 mg tablet (Discontinued) 100 tablet 0 11/05/2022 11/17/2022 Sig: Take 4 tablets in the morning and in the afternoon for 5 days. Take 3 tablets in the morning and in the afternoon for 5 days. Current dose as of 11/17/22: Then take 2 tablets in the morning and in the afternoon for 5 days.Then take 1 tablet in the morning and afternoon until directed otherwise. Sent to pharmacy as: dexAMETHasone (DECADRON) 2 mg tablet Start November 20: 2 mg BID for 5 days Start November 25: 2 mg once day for 5 days November 30: 1 MG (1/2 Tab) FOR 5 DAYS THEN OFF. Current AED Dose: N/A 02/18/23 INTERIM EVENTS -01/12/23 Follow up with Neuroimmunology Dr. Lozano. Recommend follow up images. Symptoms: the patient says that her visual field deficit remain the same, with no new symptoms. Therapy Status Data Form Past Medical History: PAST MEDICAL HISTORY Diagnosis Date Asthma due to seasonal allergies 11/02/2022 Basal cell carcinoma (BCC) of cheek 2020 left cheek Bipolar affective (HCC) Coronary artery disease Coronary artery disease involving wiyot coronary artery of wiyot heart without angina pectoris 11/02/2022 Gastroesophageal reflux disease without esophagitis 11/02/2022 Hyperlipidemia Primary hypertension 11/02/2022 Seizures (HCC) 11/02/2022 Stroke (HCC) Past Surgical History: PAST SURGICAL HISTORY Procedure Laterality Date CARDIAC SURG PROCEDURE UNLIST 2018 cardiac stents x 2 CHOLECYSTECTOMY HX EXCISION & REPAIR EYELID ONE-FOURTH LID MARGIN Left 2020 removal of BCC from left cheek LIGATE FALLOPIAN TUBE PAST SURGICAL HISTORY OF 05/2022 cardiac stent x 1 PAST SURGICAL HISTORY OF hiatal hernia repair PAST SURGICAL HISTORY OF partial hysterectomy SHOULDER ARTHROSCOPY/SURGERY Right torn rotator cuff TONSILLECTOMY HX Family History: FAMILY HISTORY Problem Relation Age of Onset Cataract Mother Heart Mother heart attack, stents Hypertension Mother Cancer Mother basal cell carcinoma of ear Cataract Father Heart Father stroke Hypertension Father Cancer Father Basal cell cancer Cancer Maternal Grandmother METS and unknown primary site Heart Maternal Grandfather of heart exploded Macular Degen Paternal Grandmother Cataract Paternal Grandmother Cancer Maternal Aunt METS and not sure of primary site Schizophrenia Maternal Aunt Cancer Granddaughter neuroblastoma Anesthesia Problems No Family History Diabetes No Family History No family H/O neurological conditions No H/O brain tumors in family No H/O 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 diseases in the family She has 2 biological daughters who are healthy. Social History Tobacco Use Smoking status: Some Days Packs/day: 0.30 Years: 40.00 Additional pack years: 0.00 Total pack years: 12.00 Types: Cigarettes Smokeless tobacco: Never Tobacco comments: Trying to quit currently Used to smoke a pack per day on average Vaping Use Vaping Use: Some days Substances: Flavoring Devices: Disposable Substance Use Topics Alcohol use: Not Currently Drug use: Never Allergies: Budesonide-Formoterol, Aspirin, Latex, Penicillins, Adhesive Tape-Silicones, Budesonide, and Formoterol Current Outpatient Medications Medication Sig melatonin 10 mg cap Take by mouth. lactobacillus combination no.4 (PROBIOTIC) 3 billion cell cap isosorbide mononitrate ER (IMDUR) 30 mg 24 hr tablet Take 1 tablet by mouth every afternoon. aspirin, enteric coated (ASPIRIN, ENTERIC COATED) 81 mg EC tablet Take 1 tablet by mouth every afternoon. albuterol HFA (PROVENTIL HFA, VENTOLIN HFA) 90 mcg/actuation inhaler Inhale as instructed. evolocumab 140 mg/mL subcutaneous pen injector (REPATHA SURECLICK) Inject 140 mg subcutaneously every 2 weeks. ondansetron (ZOFRAN) 8 mg tablet Take 1 tablet by mouth every 8 hours as needed for nausea/vomiting. pantoprazole DR (PROTONIX) 40 mg tablet Take 1 tablet by mouth once daily. acetaminophen (TYLENOL) 325 mg tablet 2 tablets by ORAL/FEEDING TUBE route every 4 hours as needed for pain. senna-docusate (SENNA-S) 8.6-50 mg per tablet 1 tablet by ORAL/FEEDING TUBE route twice daily. hydroCHLOROthiazide 12.5 mg tablet Take 12.5 mg by mouth once daily. buPROPion XL (WELLBUTRIN XL) 300 mg 24 hr tablet Take 300 mg by mouth every morning. clonazePAM (KLONOPIN) 0.5 mg tablet Take 0.5 mg by mouth twice daily as needed for anxiety. traZODone (DESYREL) 100 mg tablet Take 300 mg by mouth daily at bedtime. topiramate (TOPAMAX) 100 mg tablet Take 100 mg by mouth twice daily. vilazodone (VIIBRYD) 40 mg tablet Take 40 mg by mouth once daily. losartan (COZAAR) 25 mg tablet Take 25 mg by mouth once daily. metoprolol succinate ER (TOPROL XL) 25 mg 24 hr tablet Take 12.5 mg by mouth once daily. ezetimibe (ZETIA) 10 mg tablet Take 10 mg by mouth once daily. cariprazine (VRAYLAR) 3 mg capsule Take 3 mg by mouth once daily. carBAMazepine (TEGRETOL) 200 mg tablet Take 400 mg by mouth twice daily. No current facility-administered medications for this visit. Review of systems: Constitutional: No recent fever or weight loss. Eyes: No history of glaucoma or cataracts. ENMT: No recent ear infection, nasal congestion, mouth sores or sore throat. CV: No history of chest pain, palpitations or leg swelling. Respiratory: No history of SOB, asthma or recent cough. Gastrointestinal: No history of nausea, vomiting, dysphagia or abdominal pain. Genitourinary: No history of hematuria or dysuria. Musculoskeletal: No complaint of arthritis, unstable gait or arm/leg weakness. Psychiatric: No history of hallucinations or depression or anxiety. ROS Neurological: No complaint of headache. No complaint of tinnitus. No complaint of decreased hearing. No complaint of diplopia. No complaints of decreased visual acuity. No complaint of arm/leg numbness. No problem with limb coordination. No complaint of syncope, seizures or disorientation. Objective Physical Exam: BP 130/81 Pulse 80 Temp (Src) 98.1 (Oral) Resp 18 Wt 178 lb (80.7kg) SpO2 98% MINI-MENTAL STATE EXAMINATION (MMSE) performed 12/09/2022 Make the patient comfortable and establish rapport. Ask questions in the order listed. Total possible score is 30. ORIENTATION 1. What is the (year) (season) (date) (day) (month)? Max score=5 Patient's score=5 2. Where are we? (state) (county) (town or city) (hospital) (floor)? Max score=5 Patient's score=4 REGISTRATION Ask the patient if you may test his/her memory. Then say the names of 3 unrelated objects, clearly and slowly, about one second for each (eg, apple, table, rick). After you have said all 3, ask him/her to repeat them. This first repetition determines the score(0-3), but keep saying them until he/she can repeat all 3, up to 6 trials. Max score=3 Patient's score=3 ATTENTION AND CALCULATION Ask the patient to begin with 100 and count backwards by 7. Stop after 5 subtractions (93, 86, 79, 72, 65). Score the total number of correct answers. If the patient cannot or will not perform the serial 7s task, ask him/her to spell the word WORLD backwards. The score is the number of letters in the correct order (eg, DLROW=5; DLRW=4; DLORW, DLW=3; OW=2; DRLWO=1). Max score=5 Patient's score=4 RECALL Ask the patient to recall the 3 items repeated above (eg, apple, table, rick). Max score=3 Patient's score=2 and 3 LANGUAGE Naming: Show the patient a wristwatch and ask him/her what it is. Repeat for pencil. Max score=2 Patient's score=2 Repetition: Ask the patient to repeat the phrase No ifs, ands, or buts: after you. Max score=1 Patient's score=1 3-Stage Command: Give the patient a piece of blank paper and ask him/her to take a piece of paper in your right hand, fold it in half, put it on the floor. Score 1 point for each part correctly executed. Max score=3 Patient's score=3 Reading: On a blank piece of paper, print the sentence CLOSE YOUR EYES in letters large enough for the patient to see clearly. Ask him/her to read it and do what it says. Score 1 point only if he/sheactually closes his/her eyes. Max score=1 Patient's score=1 Writing: Give the patient a blank piece of paper and ask him/her to write a sentence. Do not dictate a sentence; it is to be written spontaneously. It must contain a subject and verb and be sensible.Correct grammar and punctuation are not necessary. Max score=1 Patient's score=1 Copying: Ask the patient to copy the figure of intersecting pentagons exactly as it is. All 10 angles must be present and 2 must intersect to form a 4-sided figure to score 1 point. Tremor and rotation are ignored. Max score=1 Patient's score=1 MAXIMUM TOTAL SCORE = 30 TOTAL SCORE = 27/30 Suggested guideline for determining the severity of cognitive impairment: Mild: MMSE>21 Moderate: MMSE 10-20 Severe: MMSE<9 Expected decline in MMSE scores in untreated mild to moderate Alzheimer's patient is 2 to 4 points per year. *Adapted from Folstein et al.1 and Kinza and Pratikstein2. (c) 1974, 1997 [employer] Used withpermission. References: 1. Foldaniella MF, Folstein SE, Perez PA. Mini-Mental State: a practical method for grading the cognitive state of patients for the clinician. J Psychiatr Res. 1975; 12:189-198. 2. JR Kinza, Nabeel BENNETT, Mini-Mental State Examination (MMSE). Psychopharm Bull. 1988;24:689-692. 3. Jonelle JT, Aniceto FJ, Lesley RD, Teja A, Michelle F. Neuropsychological function in Alzheimer's disease: pattern of impairment and rates of progression. Arch Neurol. 1988;45:263-268. 4. Sadi LORENZO, Jae B,Chon AnneP, Paul SHEEHAN. Predictors of cognitive and functional progression in patients with probable Alzheimer's disease. Neurology. 1992;42:0967-2491. GENERAL EXAM: General appearance: Well appearing, alert, in no acute distress Skin: Skin color, texture, turgor normal Oropharynx: No thrush noted. Lungs: Lungs clear to auscultation. No wheezing, rhonchi, rales Heart: RRR without murmur, gallop, or rubs. No ectopy Abdomen: Normal abdominal exam, Abdomen soft, non-tender. Bowel sounds normal. Extremities: No deformities, skin discoloration, clubbing or cyanosis. Good capillary refill, no edema to BLE. Donna's sign negative. No pain to palpation. NEUROLOGICAL EXAM: Higher integrative functions: Oriented to person, place & time. See MMSE Attention Span and Concentration: Good. Language: Accurate naming of objects. Good comprehension. Fund of Knowledge: Good. Dysarthria Stuttering No definite language dysfunction. 2nd CN: Right homonymous hemianopsia 3rd,4th,6th CN: Pupils equal, round, react to light, full extraocular movements. 5th CN: No decrease in facial sensation 7th CN: Facial muscles symmetric and strong. 8th CN: Hears finger rub well bilaterally. 9th CN: Gag reflex not tested 10th CN: Spontaneous palate movement, full and symmetric. 11th CN: Full strength in shoulder shrug. 12th CN: Tongue protrusion full and midline. Sensation: No decrease in sensation in upper or lower limbs to touch. Musculoskeletal: Gait steady. Tandem walk normal. Romberg negative. Motor: 5/5 RUE/RLE; 5/5 LUE/LLENormal muscle tone without atrophy in all limbs. Coordination: Rapid alternating movements LUE intact; RUE intact Reflexes: 1-2+ ALL limbs. Plantar response down going. Karnofsky performance status: 80 - Normal activity with effort, some signs or symptoms of disease. ECOG performance status: 1 - Restricted in physically strenuous activity but ambulatory and able tocarry out work of a light or sedentary nature, e.g., light house work or office work. PHQ 2 and 9 Total Scores 01/09/2023 PHQ-2 Score 6 PHQ-9 Score 22 Labs: CBC Latest Ref Rng & Units 12/12/2022 12/14/2022 12/15/2022 WBC 3.70 - 11.00 k/uL 3.68(L) 3.88 4.74 RBC 3.90 - 5.20 m/uL 4.64 4.40 4.28 HEMOGLOBIN 11.5 - 15.5 g/dL 13.0 12.5 12.2 HEMATOCRIT 36.0 - 46.0 % 39.7 38.1 37.2 MCV 80.0 - 100.0 fL 85.6 86.6 86.9 MCH 26.0 - 34.0 pg 28.0 28.4 28.5 MCHC 30.5 - 36.0 g/dL 32.7 32.8 32.8 RDW-CV 11.5 - 15.0 % 13.9 14.0 14.1 PLATELETS 150 - 400 k/uL 179 180 179 MPV 9.0 - 12.7 fL 9.3 8.7(L) 9.0 BASO% % - - - ABS NEUT (ANC) 1.45 - 7.50 k/uL - - - ABS LYMPH 1.00 - 4.00 k/uL - - - ABS MONO <0.87 k/uL - - - ABS EOSIN <0.46 k/uL - - - ABS BASO <0.11 k/uL - - - NRBC /100 WBC - - - CMP Latest Ref Rng & Units 12/12/2022 12/14/2022 12/15/2022 SODIUM 136 - 144 mmol/L 138 140 137 POTASSIUM 3.7 - 5.1 mmol/L 4.2 4.2 3.9 CHLORIDE 97 - 105 mmol/L 106(H) 107(H) 104 CO2 22 - 30 mmol/L 24 23 22 GLUCOSE 74 - 99 mg/dL 109(H) 90 97 BUN 7 - 21 mg/dL 8 9 9 CREATININE 0.58 - 0.96 mg/dL 0.85 0.93 0.95 EGFR >=60 mL/min/1.73m 81 73 71 PROTEIN, TOTAL 6.3 - 8.0 g/dL - - - ALBUMIN 3.9 - 4.9 g/dL - - - CALCIUM, TOTAL 8.5 - 10.2 mg/dL 9.3 9.1 9.0 BILIRUBIN, TOTAL 0.2 - 1.3 mg/dL - - - AST 13 - 35 U/L - - - ALT 7 - 38 U/L - - - ALKALINE PHOSPHATASE 34 - 123 U/L - - - Final Pathology: \\\ SURGICAL PATHOLOGY: [id number] Order: [id number] Collected 11/04/2022 11:13 AM Status: Final result Visible to patient: No (scheduled for 11/14/2022 1:09 PM) Dx: Glioma (HCC) 0 Result Notes Component FINAL DIAGNOSIS A. Brain, right corpus callosum lesion, stereotactic biopsy - Minute focus of atypical cells in a reactive background; - See comment. B. Brain, right corpus callosum lesion, stereotactic biopsy - Gliosis with scattered macrophages. Diagnosis Comment The biopsy shows focal hypercellularity at one corner (less than 5% of tissue submitted) with atypical angulated elongated nuclei and fibrillary background suspicious for glioma. Unfortunately this area is only present on the frozen section slide and is cut through on the resubmitted tissue. It is not present in any of the other slides/block submitted. The remainder of the specimen shows white matter with scattered foamy macrophages and gliosis. Part B shows white matter with scattered macrophages and gliosis but does not have the atypical area noted in frozen section. Immunohistochemical stains performed to help with classification show thefollowing (B1): CD68 highlights scattered macrophages; IDH1 R132H negative (wt); ATRX retained; p53 strong nuclear positivity 10%; Ki-67 proliferative index 1%; BRAF V600E negative (wildtype); H3 K27M negative (wt); H3 K27me3 retained; Luxol fast blue focal mild loss; Neurofilament cocktail with focal decreased axons; GMS negative for fungus; Gram negative for bacteria. FISH for EGFR reported separately. Slides also reviewed by Drs. Maria Luisa Leonardo and Jesu Narvaez who agree. Laboratory Developed Test (LDT) Disclaimer: Performance characteristics of immunohistochemical, immunofluorescent and chromogenic in-situ hybridization tests have been determined by the performing laboratory within [facility] and Laboratory Medicine [place] ([facility], [facility], [facility], [facility], [facility], or [facility]) in a manner consistent with CLIA requirements. One or more of these tests have not been cleared or approved by the FDA. [facility] is regulated under CLIA as qualified to perform high-complexity testing. These tests are used for clinical purposes. They should not be regarded as investigational or for research. Positive and negative controls stain appropriately. Gross Description A. BRAIN BIOPSY Received fresh for intraoperative evaluation labeled as right corpus callosum lesion is a whitishoval piece of tissue measuring 5 x 4 x 0.2 cm. Half of the tissue is submitted for frozen section evaluation in FSA 1. The rest of the tissue is submitted for permanent in A2. Gross examination performed at [address] 11/04/2022 B. BRAIN BIOPSY Received fresh labeled right corpus callosum lesion are multiple fragments of white-goodson tissue aggregating to 0.6 x 0.5 x 0.2 cm. The specimen is submitted entirely in cassette B1. Gross [place] [address] JXM/DANIELE 11/04/22 12:21 PM Intraoperative Diagnosis A. 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 (Dr. Narvaez). Intraoperative diagnosis performed at [address] 11/04/2022 Clinical History Pre-op diagnosis: Glioma (HCC) [C71.9] Performing Lab Diagnostic interpretation performed at [place] [address] CLIA# [id number] Dross Skimmer: Jasen Rivera M.D. Resulting Agency [facility] Specimen Collected: 11/04/22 11:13 AM EDT Last Resulted: 11/09/22 1:09 PM EDT Order Details View Encounter Lab and Collection Details Routing Result History View All Conversations on this Encounter Scans on Order [id number] Document on 11/09/2022 1:09 PM by Anusha Thomas MD Result Care Coordination Patient Communication 11/14/2022 1:09 PM Release Now Not seen Back to Top FISH FOR EGFR: [id number] Order: [id number] - Reflex for Order [id number] Collected 11/04/2022 11:22 AM Status: Final result Visible to patient: Yes (seen) Dx: Glioma (HCC) 0 Result Notes Component FISH FOR EGFR FISH for EGFR Laboratory Accession Number: [id number] Case: [id number] Block: B1 Sample Type: FFPET Sample Description: BRAIN BIOPSY, RIGHT CORPUS CALLOSUM LESION Received Date: 11/06/2022 RESULTS: EGFR NOT AMPLIFIED Number of nuclei scored: 40 INTERPRETATION: Negative for amplification of the EGFR gene. Clinical and pathological correlation is recommended. The following FISH results were obtained: EGFR: 1.78 CEP7: 2.15 EGFR/CEP7 ratio: 0.83 (Reference Range: Amplified >2.00) COMMENT: A combination of genetic signature and histology stratifies lower- grade gliomas better than histology alone. IDH-wildtype infiltrating or diffuse astrocytomas with EGFR amplification are predicted to follow an aggressive clinical course resembling that of IDH-wildtype glioblastoma. Reference: Néstor JACOME et al. cIMPACT-NOW update 3: recommended diagnostic criteria for Diffuse astrocytic glioma, IDH- wildtype, with molecular features of glioblastoma, WHO grade IV. Acta Neuropathol. 2018 Nov;136(5):805-810. METHODOLOGY: Amplification of the Epidermal Growth Factor Receptor (EGFR) gene was evaluated with interphase fluorescence in situ hybridization (FISH) on formalin-fixed paraffin embedded tissue sections using the LSI EGFR (7p11.2) and chromosome 7 centromere (CEP 7) probes ([employer], [place], [place]). The slides were scored manually. LIMITATIONS: This test will not identify all rearrangements involving EGFR. Rare, cryptic abnormalities may be below the resolution of the assay, or may otherwise be undetected. Specimen size, quality or representativeness can affect the quality of the result. This assay has been validated for tissues fixed with 10% neutral buffered formalin. Decalcification agents and fixation agents containing heavy metals, e.g. B5, or harsh acid or base components (e.g. Bouin's solution) can adversely impact assay performance. DISCLAIMER: This test was developed and its performance characteristics determined by the [facility] [place] ([facility]). It has not been cleared or approved by the FDA. [facility] is regulated under CLIA as qualified to perform high- complexity testing. This test is used for clinical purposes. It should not be regarded as investigational or for research. Interpretation performed at [facility], [address] [place], [place] [id number]. CLIA Number: [id number] As reviewed by Mayra Louis MD, PhD Resulting Agency [facility] Specimen Collected: 11/04/22 11:22 AM EDT Last Resulted: 11/09/22 3:26 PM EDT Order Details View Encounter Lab and Collection Details Routing Result History View All Conversations on this Encounter Result Care Coordination Patient Communication Add Comments Seen Back to Top Specimen Collection Information ID Source Type Collected By Time Frozen A BRAIN BIOPSY Tissue Carlos Jovel MD 11/04/22 1113 Yes Description: right corpus callosum lesion B BRAIN BIOPSY Tissue Carlos Jovel MD 11/04/22 1122 No Description: right corpus callosum lesion Additional Information Diagnosis codes: Glioma (HCC) [C71.9] Comments: Pre-op diagnosis: Glioma (HCC) [C71.9] Scanned Documents Result Information Status: Final result (Resulted: 11/09/2022 1:09 PM) Provider Status: Open Questions Order Question Answer Source of specimen(s): Clinical History SURGICAL PATHOLOGY (Order [id number]) FISH FOR EGFR (Order [id number]) - Reflex for Order [id number] Patient Release Status: This result is scheduled for release on 11/14/2022 1:09 PM. Routing History Priority Sent On From To Message Type 11/09/2022 3:26 PM Lab, Background User Anusha Thomas MD Results 11/09/2022 1:09 PM Lab, Background User Carlos Jovel MD Results 11/09/2022 1:09 PM Lab, Background User Triston Guy MD Results View Smartlink Info SURGICAL PATHOLOGY (Order #[id number]) on 11/04/22 CAP/CLIA/Joint Commission Regulatory Result Report SURGICAL PATHOLOGY (Order #[id number]) on 11/04/22 SURGICAL PATHOLOGY: Patient Communication 11/14/2022 1:09 PM Release Now Not seen Imaging: Results CT CHEST W IVCON (Acc#[id number]) (Order [id number]) Patient Info Patient Name Sex Josie Santos ([id number]) Female 1965 Imaging Findings Finding Acuity Linked Recommendation Recommendation Status Finding Status Incidental Reviewed 11/25/2022 5:41 PM - Radiology, [place] In Component Results Component Performing Lab Radiology Result (Actionable) (Final) CCR[facility] ACTIONABLE Comment: This report contains an incidental or actionable finding. This finding may be a new finding separate from the reason your provider ordered the imaging test or it may be an already known finding that needs additional or continued follow-up. Because of this incidental or actionable finding, you may need another test (imaging or a different type of test). Please contact your provider for the next steps. Impression IMPRESSION: 1. No suspicious primary lung malignancy noted. 2. Few scattered small pulmonary nodules measuring less than 5 mm. Incidental Finding: Follow-up Acuity: Incidental Finding: Solid: <6 mm (solitary or multiple) Routing Code: N/A Recommendation: No imaging follow-up is recommended Time Frame: N/A Comments: If there are risk factors for lung malignancy, a follow-up chest CT exam could be obtained in 12 months Physical Chemistry Teacher: RHIANNON Transcribe Date/Time: Nov 25 2022 5:31P Dictated by : TOMAS DEVINE MD This examination was interpreted and the report reviewed and electronically signed by: TOMAS DEVINE MD on Nov 25 2022 5:38PM EST Results-Findings * * *Final Report* * * DATE OF EXAM: Nov 25 2022 12:18PM [facility] [id number] - CT CHEST W IVCON / PROCEDURE REASON: Lesion of brain * * * * Physician Interpretation * * * * EXAMINATION: CHEST CT WITH CONTRAST CLINICAL HISTORY: Brain lesion. Evaluate for occult malignancy. Technique: Spiral CT acquisition of the chest from the thoracic inlet to the upper abdomen following IV contrast. MQ: CTCW_6 Contrast: 100 mL Omnipaque [address] Radiation dose: Integrated Dose-length product (DLP) for this visit = 840 mGy*cm CT Dose Reduction Employed: Automated exposure control(AEC) and iterative recon Comparison: No relevant prior studies available. RESULT: Limitations: None. Lines, tubes, and devices: None Lung parenchyma, pleural space and airways: Lungs are clear of focal consolidation. Few small noncalcified pulmonary nodules are identified. For reference, 3 mm nodule in the posterior RIGHT lower lobe (image 143), 3 mm nodule in the medial RIGHT lower lobe (image 121), 3 mm nodule in the lateral RIGHT upper lobe (image 46) and 2 mm nodules in the lateral LEFT lower lobe (image 100) and LEFT upper lobe (image 53). A calcified granuloma is identified in the anterior RIGHT upper lobe. Mild diffuse bronchial wall thickening is noted. There is mild mosaic attenuation.. Streaky linear bands of atelectasis are present in both lungs. There is mild elevation of the LEFT hemidiaphragm. Minimal biapical scarring is present. There is no pleural effusion. The trachea and central airways appear patent, devoid of endobronchial lesion. Lower neck, lymph nodes, and mediastinum: No obvious abnormality in the imaged thyroid gland. A borderline enlarged 8 mm LEFT hilar lymph node is identified (image 90). There are calcified thoracic lymph nodes suggestive of remote granulomatous disease. The esophagus is mildly patulous. Heart, pericardium, and thoracic vessels: The cardiac chambers are normal in size. There is no pericardial effusion or thickening. The main pulmonary artery is normal in calibre. The thoracic aorta is normal in calibre. The arch branching pattern is normal. Scattered coronary artery calcifications are noted, although the study is not optimized for coronary assessment. Bones and soft tissues: Chest wall soft tissues are unremarkable. The vertebral body heights appear symmetric and well-maintained. Upper abdomen: The concurrently performed CT abdomen and pelvis will be reported separately. Pediatric Dental Assistant (topogram) images: No additional findings. Result History CT CHEST W IVCON (Order #[id number]) on 11/25/2022 - Order Result History Report Result Information Status Provider Status Actionable Final result (11/25/2022 5:41 PM) Reviewed Exam Performed Date and Time 11/25/2022 12:18 PM Resulting Agency [facility] [address] [facility] [place] [address] ABD/PEL W IVCON (Acc#[id number]) (Order [id number]) Patient Info Patient Name Sex Josie Landis ([id number]) Female 1965 11/25/2022 12:44 PM - Radiology, Oru In Impression IMPRESSION: No metastatic disease in the abdomen and pelvis. Physical Chemistry Teacher: RHIANNON Transcribe Date/Time: Nov 25 2022 12:23P Dictated by : BLAYNE JONES MD This examination was interpreted and the report reviewed and electronically signed by: BLAYNE JONES MD on Nov 25 2022 12:42PM EST MRI Report MRI BRAIN WO/W IVCON Exam End: 02/18/2023 10:29 AM (Final result) Narrative: * * *Final Report* * * DATE OF EXAM: Feb 18 2023 9:38AM [facility] [id number] - MRI BRAIN WO/W IVCON / PROCEDURE REASON: Neoplasm * * * * Physician Interpretation * * * * EXAMINATION: MRI BRAIN WO/W IVCON, MRI LUMBAR SPINE WO/W IVCON CLINICAL HISTORY: Neoplasm - - - Othercorpus callosum lesion (accession [id number]), Other (specify in question below) (accession [id number]) - Brain/SPECIAL NEEDS BABYSITTER neoplasm, monitor (accession [id number]), Brain/SPECIAL NEEDS BABYSITTER neoplasm, assess treatment response (accession [id number]) - - F/U TO PREV - TECHNIQUE: Routine brain MRI protocol without and with contrast including diffusion images. Routine lumbosacral spine MR protocol without gadolinium. MQ: MRBWOW_2 Contrast: 16 mL Dotarem IV COMPARISON: MRI brain 12/14/2022, multiple prior MRI brain exams most recently 12/07/2022, MRI lumbar spine 12/09/2022 RESULT: BRAIN: Postoperative changes: Redemonstrated postoperative changes of RIGHT parietal patsy hole craniotomy for RIGHT corpus callosum splenium biopsy. Minimal residual linear T2/FLAIR hyperintensity along the biopsy tract (2:20), decreased in prominence from 12/07/2022. Acute Change: There is no evidence of restricted diffusion to suggest an acute infarct. Hemorrhage: No evidence of prior parenchymal hemorrhage on the gradient echo images. Mass Lesion/ Mass Effect: Interval decrease in conspicuity and intensity of now heterogeneous T2/FLAIR hyperintensity throughout the corpus callosum splenium from 12/07/2022. No significant mass effect. Single focus of enhancement in the RIGHT aspect of the corpus callosum splenium (8:21) corresponding to involuted cystic focus noted on prior MRI brain 12/07/2022 and 09/25/2022 just superior to site of prior biopsy. Chronic Change: Scattered punctate foci of increased T2 and FLAIR signal are noted in the supratentorial white matter which is a nonspecific finding, but likely represents minimal chronic microvascular ischemia. Parenchyma: No significant volume loss for age. Ventricles: Normal caliber and morphology. Skull Base: Hypothalamic and pituitary region are grossly normal. Craniocervical junction is normal. No significant marrow replacement process. Vasculature: Major intracranial arterial structures, and dural venous sinuses show typical flow void, suggesting patency by spin echo criteria. Other: The paranasal sinuses appear clear. Mastoid air cells appear clear. The orbits appear unremarkable. Extracranial soft tissues appear within normal limits. LUMBAR SPINE: Counting reference: Lumbosacral junction. For the purposes of this report, Localizer images: Alignment: Alignment is anatomic. Bone marrow signal/fracture: No evidence of pathologic marrow infiltration. No evidence of prior fracture. Conus: The conus terminates at L1 and is within normal limits of morphology and signal. Normal course and caliber of the descending cauda equina nerve roots. Redemonstrated mild enhancement of the RIGHT S1 nerve root (for example 24:20), not significantly changed from 12/09/2022. Previously queried equivocal enhancement in the LEFT S1 nerve root is not definitively seen. New mild enhancement of the RIGHT S2 nerve root (24:23). Paraspinal soft tissues: Paraspinal soft tissues are within normal limits. Lower thoracic spine: Visualized lower thoracic canal and foramina are patent. Canal and foramina: Canal and foramina are patent. Sacrum and iliac wings: The visualized sacrum and iliac wings are within normal limits. Impression: IMPRESSION: Decreased conspicuity and intensity of now somewhat heterogeneous T2/FLAIR hyperintense lesion in the corpus callosum splenium with slight interval decrease in degree of expansion noted on prior study. New tiny focus of enhancement along the ventral and superior margins of the cystic portion of the lesion and adjacent to the biopsy tract may represent neoplastic/inflammatory enhancement versus postbiopsy change. Continued attention on follow-up is recommended. Mild enhancement of the RIGHT S1 nerve root, not significantly changed in appearance from 12/09/2022, with new mild enhancement of the RIGHT S2 nerve root. Previously queried equivocal enhancement of the LEFT S1 nerve root is no longer definitively seen. Anatomic Lumbar Variant: None. L4-5 is considered the level of the iliac crest and assume there are 5 lumbar-type vertebrae. Physical Chemistry Teacher: RHIANNON Transcribe Date/Time: Feb 18 2023 10:39A Dictated by : ROSAS GARCIA MD This examination was interpreted and the report reviewed and electronically signed by: ROSAS GARCIA MD on Feb 18 2023 10:57AM EST Assessment & Plan 57 YO RHF who presents back at the end of May 2022, with acute, language dysfunction, visual field deficit and likely alexia, which occur on the day of a cardiovascular procedure, coronary arterystent placement with a brain MRI that reveals a splenium of the corpus callosum abnormality. A follow up MRI 09/25/22 revealed that the SCC lesion has slightly progressed in size. Her stroke neurologist Dr. Pro felt that this does not fit with a stroke and because the neuroradiology reading suggest that this could be a glioma, she referred the patient to our [facility] [place] for evaluation, On 11/02/22, shehad a biopsy by Dr. Jovel, neurosurgeon at the [facility]. The pathology is basically non diagnostic. Symptomatically the patient remains with some language dysfunction, mainly word finding difficulty,right visual field deficit, and likely alexia. Pending: - f/u ENS2 - f/u remaining LP studies: ENC2, MNGS, bacterial culture, fungal culture, AFB culture - neuro-ophthalmology eval to define whether visual field deficit matches with her brain lesions vsother cause - scheduled 12/15 after discharge DISCUSSION: With the constellation of signs and symptoms, including, aphasia., mainly word finding difficulty, dyslexia, confusion, and visual field deficit on the right in the context of a lesion in the SC, this suggests highly a disconnecting syndrome. -Alexia: The patient's description of inability it understands written word is likely alexia, whichcan be seen in disconnecting syndromes, and seen in lesion of the SCC. Typically seen in a lesion of the occipital lobes but also seen in lesions of the SCC. 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 There are reports of this manifestation as published by Arelis Petit et al (1) where they described a patient with SCC infarct and HH, In this paper their conclusion is a follows (excerpt/verbatim from the publication: We hypothesized that right homonymous hemianopsia was caused by an interrupted transfer of visual information at the splenium of the CC across the hemispheres. In other words, we hypothesized that the visibility would not be defined only in the unilateral striate cortex, but also in the bilateral cortexes across the hemispheres. Aphasia: According to the literature splenium of the corpus callosum lesions can cause cognitive problems, change in behavior, confusion even seizures, including aphasia as reported in the literature. I think that the constellation of symptom could be explained by the location of the lesion, and thefact that the lesion persists radiologically and clinically, suggest that the lesion has not improved and slightly progressing as reported in the MRI from 09/25/22, when compared to the MRI from 07/03/2022 and 06/08/2022. Regarding the etiology of the lesion: The pathology was not conclusive. The initial working diagnosis because of the acute/subacute presentation and in the context that occurred on the day of a vascular procedure, coronary artery stent, a CVA was considered for which thepatient saw cerebrovascular/stroke neurology Dr. Pro. She had CVA work up. However, because of the MRI from 09/25/22, showed slight progression of the lesion, the differential radiological diagnoses was narrowed to possible glioma. Her stroke neurologist Dr. Pro has deemed that this is not astroke and referred her to the [facility] [place] and had a biopsy by Dr. Feliz on 11/04/22, and as I said the pathology is not diagnotic. Considering the presentation the differential diagnosis is: -STROKE Other possibilities: -Glioma -Unlikely encephalitis in light of the timeline, but an indolent encephalitis can still be possible -Venous infarct (6) -Demyelination - due to MS, unlikely due to age but can be seen, and or other inflammatory 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 entities. -Paraneoplastic syndrome. Differential diagnosis from a publication by AJR: Lipoma Glioma: low grade or high grade Lymphoma Juvenile Pilocytic Astrocytoma Demyelinating Diseases -Multiple Sclerosis Progressive Multifocal Leukoencephalopathy Marchiafava-Bignami Disease - unlikely S she does no drink ETOH in large amounts. Infarction - see above. Arteriovenous Malformations - had a CTA by Dr. Pro and showed no abnormalities. Trauma Susac Syndrome (SS) (From [employer] (excerpt/verbatim). SS is a presumed to be caused by autoimmune endotheliopathy , resulting in microinfarcts of the precapillary arterioles of the brain, retina, and inner ear (cochlea and semicircular canals).[2][3] The exact mechanism is unclear, but pathogenesis does resemble the microinfarction of muscle and skin seen in juvenile dermatomyositis. Susac syndrome (SS)) is a rare condition characterized by the clinical triad of encephalopathy, branch retinal artery occlusion (BRAO), and sensorineural hearing loss. However, all three features may not be present concurrently upon initial presentation. This condition may also be referred as small infarctions of cochlear, retinal, and encephalic tissue (SICRET), microangiopathy with retinopathy, encephalopathy, and deafness (RED- M), and retinocochleocerebral vasculopathy.[1][2] Unlikely that the patient has Susac Syndrome, as she does not meet the clinical triad, however thisis still in the differential. After the biopsy the diagnosis is till elusive, and the differential diagnosis from my perspective remains as above, as I cannot exclude a possible entity for sure. 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 I will refer the patient to se Dr. Carrizales who is also a neurologist. Other colleagues that I think will be valuable for her care would be neuro- immunology to get their input as to a possible neuro immunological explanation for her presentation. Neuro ID input would be also helpful. Of course, o follow will with Dr. Pro and I would welcome her continued input, in light that per pathology there is no evidence of glioma. As her case is set to be presented to Brain Tumor Board today, I will wait for any further commentsfrom neuropathology that could shed a better light to the etiology of this lesion. I will also welcome the multidisciplinary input. In the interim Mrs. Landis should have a short interval MRI to define whether this lesion is progressing or regressing. Her last brain MRI is from . REFERENCES: 1-Barber Zuleta, Franny H, et al. 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 Cureus 13(37): a91649. doi:10.7759/cureus.95381), 2-chantal Reed al. Clinical features of acute corpus callosum infarction patients. Int J Clin Exp Pathol. 2014; 7(8): 0321-8646. 3-Damari Guerrero. 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 Brain Behav. 2019 Mar;9(11): c84344. 4-Conrado Cook and Holly Ley. 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 BMJ Case Rep. 2014; 2014: [id number]. 5-Fadi Miranda et al. Alexia Without Agraphia: A Rare Entity. Cureus. 2017 [place]on; 9(6): e1304. 6-Lewis Sullivan MD; Ruchi Torre MD. Splenium Infarct Due to Cerebral Venous Thrombosis. Arch Neurol. 2007;64(10):1540. 7-Shelton Stevenson et al. Lesions of the Corpus Callosum: MR Imaging and Differential Considerations in Adults and Children. 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 11/17/2022. Recommend to refer her to neuroimmunology for an opinion. -Full spine MRI w and w/o contrast for work up for 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 disease, and or drop metastasis. -CT chest and pelvis (if NEG a PET scan of the brain/full body), she is at risk of lung CA with 40 year H/o smoking -LP with CSF analysis to exclude POS malignant cytology, and or paraneoplastic AB, and or infectious process. 12/09/2022: -issues worsening,gait difficulty, memory and vision. Although her repeat MRI from 12/07/22, shows no change, it is concerning that her symptoms are worsening, with no definite answer. I think that in order to expedite the planned work up and hopefully to get an answer for the patient, I think admitting the patient is what I would recommend. I spoke with Dr. Triston Lozano, neurology staff for primary neurology service, and discussed patient's case. Dr. Lozano, agreed that the patient requires admission to neurology to expedite work up and to elucidate any pathology that may require rather rapid intervention. I explained the above to the patient and family and they agreed. I called admissions, and the patient will be admitted under Dr. Lozano, who has accepted the patient. In addition to the work up and consults as noted below, further work up as Dr. Lozano may deem necessary. The work up will also include LP for CSF analysis. 12/09/22 - 12/15/22. Admitted to for further evaluations -12/10/22 MRI spine: 1. Mild enhancement of the right S1 cauda equina nerve root and equivocal enhancement of the left S1 cauda equina nerve root. 02/18/23 No change in symptoms No new symptoms -MTI purvi some improvement in CC lesion, but enhancement at the site/adjacent to the biopsy site, radiology says could be post biopsy changes VS neoplastic/or other entity. -MRI lumbar region, shows other nerve rot enhancement, see above. The significance of these MR change sis unclear but I think that a second LP is warranted. The goalis to exclude the best possible leptomeningeal metastasis. Also the patient has been seen by Dr. Lozano from neuro-immunology and I will welcome his valuable input. PLAN: 1-Splenium of the corpus callosum lesion, etiology unclear: S/P biopsy with non diagnostic pathology. Admitted to neurology on 12/09/22, discharged 12/15/22, under Dr. Lozano's service, to expedite workup and to elucidate any pathology that may require rather rapid intervention. Work up so far unremarkable. Plan to do an MRI of the brain w and w/o + perfusion in 2 month's time. -Follow up in my neuro-oncology clinic 1-2 days after the MRI if the MRI is done at a different F, or the same day if the MRI is done at . -Order lumbar puncture under fluoroscopy, interventional neuroradiology. Test to include: -Cytology -Gene rearrangement send out to [facility] -Flow Cytometry. NOTE: PATIENT IS ON DAILY 81 MG OF ASPIRIN. TO STOP IT PRIOR TO LP AND RESUME AFTER LP PER IR PROTOCOL. 2-Lumbar MRI 02/18/23 reported as: Mild enhancement of the RIGHT S1 nerve root, not significantly changed in appearance from 12/09/2022, with new mild enhancement of the RIGHT S2 nerve root. Previously queried equivocal enhancement of the LEFT S1 nerve root is no longer definitively seen. The significance of the above is unclear, whether this signifies progression of an entity still of unclear etiology, is not known for now. -As above noted, a repeat lumbar puncture for cytology is warranted. I proposed a 2nd, if NEG a 3rdLP I recommend. As the 2nd, and 3rd LP increased the yield to identify malignant cells. Repeat lumbar spine MRI w and w/o in 2 months time. 3-Paresthesias of arms/hands. -MRI C-spine w and w/o contrast in the next 2-3 weeks. -Also thoracic spine MR w and w/o to exclude disseminating dis. Also to be done in 2-4 weeks -Virtual visit 1-2 days after Cervical/thoracic spine MR . -The patient/family was advised to call if symptoms worsen and she may need to be evaluated sooner,or go to the ED. 4-Referral to neuroimmunology for opinion whether the lesion in the SCC is from an autoimmune/immune/paraneoplastic pathology, and recommendations on further work up. Dr. Lozano is a neuro plant technical specialist and was the neurology staff while admitted (12/09-12/15/22) and saw the patient in his clinic on 01/12/23. Recommended (excerpt/verbatim) We will continue to follow with serial imaging next MRI scheduled for March 2023 and will obtain brain and L/S spine. Based on results will decide on further course of action. Given her overall clinical stability will hold off on steroids for now. All questions answered. 5-Referral to Neuro ID for opinion whether the SCC lesion is of infectious etiology, i.e., indolentprocess, and recommendations on further work up. Patient was seen by ID while hospitalized (12/09-12/15/22). 6-Referral to neuro-ophthalmology: Was seen by neuro-ophthalmology 12/15/22. 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 To follow up with neuro-ophthalmology. 7-Follow with Dr. Pro from cerebrovascular/stroke neurology. 8-Follow with her project control manager for her CAD, S/p coronary artery stents. 9-Follow with her PCP for general medical care/coordination of care, Dr. Cool. 10-No to drive a car or any other motorized vehicle, and not to engage in activities that could place her at risk to her and or others of injury is she were to have episodes of confusion. 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 For now, as she had episodes of conduction which have not been clarified yet, also she has a visual field deficit on the right. Her driving privileges to be resumed depending on her progress/entities found. 11- CT chest:11/25/22: 1. No suspicious primary lung malignancy noted. 2. Few scattered small pulmonary nodules measuring less than 5 mm. Comments: If there are risk factors for lung malignancy, a follow-up chest CT exam could be obtained in 12 months NOTE: the patient has risk factor for lung CA she has been smoking tobacco for many yeas. -CT chest/abdomen and pelvis w and w/o contrast No metastatic disease in the abdomen and pelvis. 12/14/22 PET scan: No hypermetabolic lesions seen. PCP to do follow up CT chest, in 6-12 months time. ORDERS: Associate Signed Orders Orders Signed This Visit (17) AFB CULT + STAIN Clinician Collect, Routine, Specimen Sources - CEREBROSPINAL FLUID.;, Resulting Agency - [facility], Dx: 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 Brain lesion 3. Confusion 4. Alexia 5. Visual field defect CSF CULT + STAIN Clinician Collect, Routine, Specimen Sources - CEREBROSPINAL FLUID;, Resulting Agency - [facility], Dx: 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 Brain lesion 3. Confusion 4. Alexia 5. Visual field defect CSF ROUT ANALYSIS Clinician Collect, Routine, Specimen Sources - CSF LUMBAR PUNCTURE;, Resulting Agency - [facility], Dx: 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 Brain lesion 3. Confusion 4. Alexia 5. Visual field defect CSF SPECIMEN LABELS Referral By - CODIE SOTO 1 visit, Qty-1, Normal, Routine, Dx: 1. Neoplasm of uncertainbehavior of brain, supratentorial (HCC) 2. Brain lesion 3. Confusion 4. Alexia 5. Visual field defect CYTOLOGY NON-DIRECTOR MARKET INTELLIGENCE Clinician Collect, Routine, Specimen Sources - CSF LUMBAR PUNCTURE;, Resulting [facility], Dx: 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 Brain lesion 3. Confusion 4. Alexia 5. Visual field defect EXTRA TUBES Clinician Collect, Routine, Dx: 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Brain lesion 3. Confusion 4. Alexia 5. Visual field defect CSF Tube(s) collected? x4 FLOW CYTOMETRY FOR LEUKEMIA/LYMPHOMA (FCLL) Future, Expected: 02/22/2023, Clinician Collect, Resulting [facility] FUNGAL CSF CULT/CAD Clinician Collect, Routine, Specimen Sources - CSF LUMBAR PUNCTURE;, Resulting [facility], Dx: 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 Brain lesion 3. Confusion 4. Alexia 5. Visual field defect GLUCOSE RANDOM BLD Future, Expected: 02/22/2023, Lab, Routine, Specimen Sources - BLOOD;, Resulting [facility], Dx: 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 Brain lesion 3.Confusion 4. Alexia 5. Visual field defect IR LUMBAR PUNCTURE DIAGNOSTIC (MC) Routine LYME DISEASE BY PCR Future, Expected: 02/22/2023, Lab, Routine, Specimen Sources - CEREBROSPINAL FLUID.;, Resulting [facility], Dx: 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 Brain lesion 3. Confusion 4. Alexia 5. Visual field defect Source: CSF LUMBAR PUNCTURE MISC SEND OUT TST 1 Future, Expected: 02/22/2023, Lab, Specimen Types - CSF;, Resulting [facility] MISC SEND OUT TST 1 Future, Expected: 02/22/2023, Lab, Specimen Types - CSF;, Resulting [facility] MYELIN BASIC PRO CSF Clinician Collect, Routine, Specimen Sources - CSF LUMBAR PUNCTURE;, Resulting [facility], Dx: 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 Brain lesion 3. Confusion 4. Alexia 5. Visual field defect OLIGOCLONAL BAND CSF Clinician Collect, Routine, Specimen Sources - CSF LUMBAR PUNCTURE;, Resulting [facility], Dx: 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 Brain lesion 3. Confusion 4. Alexia 5. Visual field defect TOURTELLOTTE CSF Clinician Collect, Routine, Specimen Sources - CSF LUMBAR PUNCTURE;, Resulting Agency [facility], Dx: 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 Brain lesion 3. Confusion 4. Alexia 5. Visual field defect VDRL CSF Clinician Collect, Routine, Specimen Sources - CSF LUMBAR PUNCTURE;, Resulting Agency [facility], Dx: 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 Brain lesion 3. Confusion 4. Alexia 5. Visual field defect I saw the patient in collaboration with Eva Robertson RN [facility] In the end the patient and family verbalized understanding of the above, they had questions which Madhavi I answered to their satisfaction and agreed with these recommendations and had no further questions or concerns for the moment, but I encourage them to call the [facility] with any questions or concerns. I spent a total of 60 minutes on the date of the service which included preparing to see the patient, at least 50% of [id number] patient care, completing clinical documentation, obtaining and/or reviewing separately obtained history, performing a medically appropriate examination, counseling and educating the patient/family/caregiver, ordering medications, tests, or procedures, communicating with other HCPs (not separately reported), independently interpreting results (not separately reported), communicating results to the patient/family/caregiver and care coordination (not separately reported). Codie Soto MD Staff Neuro-Oncologist [facility], [place], [place] CC: CC -Carlos Jovel MD, Neurosurgery, R [facility], [facility] CC: Rad Pro DO, Vascular Neurology, [facility] CC: Dr. Solis Cool DO, PCP, [address] [place] [address] [address] [id number], ; -Triston Lozano MD, Neurology/Neuroimmunology, [facility] -David Rios MD, Neuro-ophthalmology, [facility] -Americo Haney DO, Infectious Disease, [facility] documented in this encounterCincinnati [facility] Nurse Note* Jenni Strong MA - 02/18/2023 2:09 PM EDT Additional intake questions: Has the patient had fever, nausea, vomiting, diarrhea, constipation, fatigue for > 1 week? No Does the patient have a decreased appetite? No Does patient want to see a Bundle Breaker? No (yes to any of above refer patient to schedulers for dietitian appointment) ) Does patient have any new or increased numbness or tingling of extremities? Yes, both hands tingling Is patient interested in fertility information? No Does patient need any prescription refills? No Does patient have an advanced directive in place? No, Patient referred to Resource Center documented in this encounterCincinnati [facility]10-19-[facility]23 History of Present illness Narrative* David Justice RT(R) - 02/18/2023 8:40 AM EDT Radiology Service Progress Note DATE OF SERVICE: February 18, 2023 TIME: 9:25 AM PATIENT IDENTITY VERIFICATION COMPLETED USING TWO (2) STANDARD IDENTIFIERS: Name and Date of confirmed by patient verbally. FALL SCREENING: Has the patient had 2 falls in the last year or 1 fall with injury or currently using an Ambulatory Assistive Device (Walker, Cane, Wheelchair, Crutches, etc.)? No PATIENT GENDER DATA: Female. status: : No status: NO. PATIENT RELEVANT IMPLANT DATA REVIEWED: Yes ALLERGIES: Reviewed and unchanged CONTRAST ALLERGY: NO. EXAM: MRI - CONTRAST TYPE: GROUP II PERIPHERAL IV DATA: Ambulatory: A peripheral IV was started in the Left antecubital site with a Angio cath: 22 gauge. RADIOLOGY DEPARTMENT: MR; Exam(s) Completed: Head: Multiple Sclerosis Spine: Lumbar spine SIGNATURE: RT Hayden(R) PATIENT NAME: Josie Landis DATE: February 18, 2023 TIME: 9:25 AM documented in this encounterCincinnati [facility]09-12-2023 Instructions* Patient Instructions* Americo Haney DO - 01/12/2023 1:16 PM EDT Follow up the MRI's in March I will talk with Dr. Lozano about your visual field documented in this encounterCincinnati [facility]09-12-2023 History of Present illness Narrative* Americo Haney DO - 01/12/2023 1:03 PM EDT [facility] Subjective HPI: Josie Luu is 57 year old woman who presents fo rhospital follow up. She reports more fatigue now. She still has memory, balance, and vision issues. She felt bad at the beginning of last week and had a 99.1F temp. She had friends who were sick too.She mostly had diarrhea and stomach upset. Diarrhea lasted for two days and has resolved. Current Outpatient Medications Medication Sig Dispense Refill melatonin 10 mg cap Take by mouth. lactobacillus combination no.4 (PROBIOTIC) 3 billion cell cap isosorbide mononitrate ER (IMDUR) 30 mg 24 hr tablet Take 1 tablet by mouth every afternoon. aspirin, enteric coated (ASPIRIN, ENTERIC COATED) 81 mg EC tablet Take 1 tablet by mouth every afternoon. albuterol HFA (PROVENTIL HFA, VENTOLIN HFA) 90 mcg/actuation inhaler Inhale as instructed. evolocumab 140 mg/mL subcutaneous pen injector (REPATHA SURECLICK) Inject 140 mg subcutaneously every 2 weeks. ondansetron (ZOFRAN) 8 mg tablet Take 1 tablet by mouth every 8 hours as needed for nausea/vomiting. [address] (PROTONIX) 40 mg tablet Take 1 tablet by mouth once daily. 30 tablet 0 acetaminophen (TYLENOL) 325 mg tablet 2 tablets by ORAL/FEEDING TUBE route every 4 hours as needed for pain. senna-docusate (SENNA-S) 8.6-50 mg per tablet 1 tablet by ORAL/FEEDING TUBE route twice daily. hydroCHLOROthiazide 12.5 mg tablet Take 12.5 mg by mouth once daily. buPROPion XL (WELLBUTRIN XL) 300 mg 24 hr tablet Take 300 mg by mouth every morning. clonazePAM (KLONOPIN) 0.5 mg tablet Take 0.5 mg by mouth twice daily as needed for anxiety. traZODone (DESYREL) 100 mg tablet Take 300 mg by mouth daily at bedtime. topiramate (TOPAMAX) 100 mg tablet Take 100 mg by mouth twice daily. vilazodone (VIIBRYD) 40 mg tablet Take 40 mg by mouth once daily. losartan (COZAAR) 25 mg tablet Take 25 mg by mouth once daily. metoprolol succinate ER (TOPROL XL) 25 mg 24 hr tablet Take 12.5 mg by mouth once daily. ezetimibe (ZETIA) 10 mg tablet Take 10 mg by mouth once daily. cariprazine (VRAYLAR) 3 mg capsule Take 3 mg by mouth once daily. carBAMazepine (TEGRETOL) 200 mg tablet Take 400 mg by mouth twice daily. No current facility-administered medications for this visit. ALLERGIES Allergen Reactions Budesonide-Formoter* Other: See Comments Aspirin Other: See Comments Latex Other: See Comments Penicillins Other: See Comments Adhesive Tape-Silic* Other: See Comments Budesonide Other: See Comments Formoterol Other: See Comments PAST MEDICAL HISTORY Diagnosis Date Asthma due to seasonal allergies 11/02/2022 Basal cell carcinoma (BCC) of cheek 2020 left cheek Bipolar affective (HCC) Coronary artery disease Coronary artery disease involving wiyot coronary artery of wiyot heart without angina pectoris 11/02/2022 Gastroesophageal reflux disease without esophagitis 11/02/2022 Hyperlipidemia Primary hypertension 11/02/2022 Seizures (HCC) 11/02/2022 Stroke (HCC) PAST SURGICAL HISTORY Procedure Laterality Date CARDIAC SURG PROCEDURE UNLIST 2018 cardiac stents x 2 CHOLECYSTECTOMY HX EXCISION & REPAIR EYELID ONE-FOURTH LID MARGIN Left 2020 removal of BCC from left cheek LIGATE FALLOPIAN TUBE PAST SURGICAL HISTORY OF 05/2022 cardiac stent x 1 PAST SURGICAL HISTORY OF hiatal hernia repair PAST SURGICAL HISTORY OF partial hysterectomy SHOULDER ARTHROSCOPY/SURGERY Right torn rotator cuff TONSILLECTOMY HX Family History Problem Relation Age of Onset Cataract Mother Heart Mother heart attack, stents Hypertension Mother Cancer Mother basal cell carcinoma of ear Cataract Father Heart Father stroke Hypertension Father Cancer Father Basal cell cancer Cancer Maternal Grandmother METS and unknown primary site Heart Maternal Grandfather of heart exploded Macular Degen Paternal Grandmother Cataract Paternal Grandmother Cancer Maternal Aunt METS and not sure of primary site Schizophrenia Maternal Aunt Cancer Granddaughter neuroblastoma Anesthesia Problems No Family History Diabetes No Family History Social History Tobacco Use Smoking status: Some Days Packs/day: 0.30 Years: 40.00 Additional pack years: 0.00 Total pack years: 12.00 Types: Cigarettes Smokeless tobacco: Never Tobacco comments: Trying to quit currently Used to smoke a pack per day on average Vaping Use Vaping Use: Some days Substances: Flavoring Devices: Disposable Substance Use Topics Alcohol use: Not Currently Drug use: Never Review of Systems Constitutional: Negative for chills, fever and malaise/fatigue. HENT: Negative for sore throat. Eyes: Negative for blurred vision, double vision and pain. Respiratory: Negative for cough, sputum production and shortness of breath. Cardiovascular: Negative for chest pain and leg swelling. Gastrointestinal: Positive for diarrhea. Negative for abdominal pain, constipation, nausea and vomiting. Genitourinary: Negative for frequency. Musculoskeletal: Negative for back pain, joint pain and neck pain. Skin: Negative for rash. Neurological: Positive for dizziness and headaches. Negative for tingling. Psychiatric/Behavioral: Negative for depression. The patient is not nervous/anxious. All other systems reviewed and are negative. Objective BP 99/59 Pulse 69 Temp 36.2 C (97.1 F) Wt 82.6 kg (182 lb) SpO2 99% BMI 28.51 kg/m Body mass index is 28.51 kg/m . Physical Exam HENT: Head: Normocephalic and atraumatic. Mouth/Throat: Mouth: Mucous membranes are moist. Pharynx: Oropharynx is clear. Eyes: General: No scleral icterus. Conjunctiva/sclera: Conjunctivae normal. Cardiovascular: Rate and Rhythm: Normal rate and regular rhythm. Heart sounds: Normal heart sounds. No murmur heard. No friction rub. No gallop. Pulmonary: Effort: Pulmonary effort is normal. No respiratory distress. Breath sounds: Normal breath sounds. No wheezing or rales. Abdominal: General: There is no distension. Palpations: Abdomen is soft. Tenderness: There is no abdominal tenderness. Musculoskeletal: General: No tenderness. Cervical back: Neck supple. Skin: General: Skin is warm and dry. Findings: No erythema. Neurological: General: No focal deficit present. Mental Status: She is alert and oriented to person, place, and time. Cranial Nerves: Cranial nerve deficit present. Motor: No weakness. Comments: Visual field deficit, right hemianopsia I have personally reviewed the patient's imaging and laboratory data. Relevant data includes: MRI brain Assessment 1. Brain lesion - ICD9: 348.89, ICD10: G93.9 (primary diagnosis) 2. Diarrhea of presumed infectious origin - ICD9: 009.3, ICD10: R19.7 Copied forward from my hospital assessment: Josie Landis is a 57 year old female with history of bipolar disorder and CAD who presentsfor further work up of Corpus Callosum lesion Problem list includes: Splenium lesion: Differential includes Mycoplasma post-infectious myelitis, Glioma, Lymphoma, histoplasmosis. Prior biopsy was non-diagnostic S1 nerve root enhancement CAD s/p CABG Bipolar disorder Tobacco use disorder CSF shows TNC 2, protein 81, and glucose 64. HIV negative, VDRL CSF, HSV CSF, Crypto Ag CSF, and histoplasma urine antigen negative. CT PET with mild avidity in corpus callosum Updated information: MNGS returned negative. Right hemianopsia remains, not characterized by the lesion seen on MRI. I am curious if she has an issue with her optic chiasm. She did have a GI illness last week but it selfresolved. PLAN: --follow up repeat MRI findings per neurology --consider more targeted imaging of optic chiasm/pituitary --follow up me as needed if infectious syndrome develops Americo Haney DO January 12, 2023 1:03 PM documented in this encounterCincinnati [facility]09-12-2023 Nurse Note* Teagan Fletcher MA - 01/12/2023 12:58 PM EDT Tobacco Use: .3 packs/day, for 40 years. Types: Cigarettes Was smoking cessation packet given? N/A - Patient is a non-smoker or quit >1 year ago. Was a referral initiated?N/A Patient is a non-smoker documented in this encounterCincinnati Children'[facility]09-12-2023 Instructions* Patient Instructions* Rich Gudino MD - 01/12/2023 10:30 AM EDT We would like to check a blood test today. We would recommend repeating your MRI scans (brain and lumbar spine) around March 2023. We would also recommend discussing adjusting your medications with your psychiatrist (to potentially change carbamazepine - Tegretol). We have placed a referral for physical therapy if needed. We would like to see you again after the MRI in March 2023. In the meantime, please do not hesitate to contact us with any questions or concerns. documented in this encounterCincinnati [facility]09-12-2023 History of Present illness Narrative* Triston Lozano MD - 01/12/2023 9:00 AM EDT Images from the original note were not included. [facility] NEW PATIENT EVALUATION/CONSULTATION Referral source: No referring provider defined for this encounter. Also followed by: Patient Care Team: Solis Cool DO as PCP - General (Internal Medicine) Corrie Alvares as Referring (Cardiology) Rad Pro DO (Neurology) Christine Aguayo LSW as Rat Exterminator (Hematology/Oncology) PRINCIPAL NEUROLOGIC DIAGNOSIS: Abnormal brain lesion (non-enhancing corpus callosum lesion); Possible right cauda equina enhancement DISEASE SUMMARY Date of onset: May 2022 Date of diagnosis of MS: N/A Disease course at onset: Relapsing-Remitting Current disease course: Progressive without relapses Previous disease therapies: - Dexamethasone taper 11/05 - 12/04/2022 Current disease therapy: None Most recent MRI brain: 12/07/2022 Most recent MRI cervical spine: 12/10/2022 Most recent MRI thoracic spine: 12/10/2022 Most recent MRI lumbar spine: 12/10/2022 CSF: 12/10/2022 (RBC 1, WBC 2, IgG index 0.54, IgG synthesis rate 1.7, OCBs negative, ENC2 negative,HSV PCR negative, MNGS negative, cytology negative) JCV serology result and date: None Brain biopsy: 11/04/2022 right corpus callosum (Minute focus of atypical cells in a reactive background; Gliosis with scattered macrophages) Serum: - 2022: ENS2 negative, HIV negative, lyme negative, syphilis negative, ESR/CRP wnl, TSH wnl, B12 wnl Systemic imaging: - 11/25/2022 (CT chest, abdomen, and pelvis few scattered pulmonary nodules) - 12/14/2022 (PET whole body negative; CC lesion without significant uptake) HISTORY OF ILLNESS: An opinion on this 57 year old right handed female was requested by the referring physician for a second opinion on abnormal brain MRI. The patient was accompanied by her and daughter. Previous records (physician notes, laboratory reports, and radiology reports) and imaging studies were reviewed and summarized. My recommendations will be communicated back to the patient's physician(s) viaelectronic medical record. Follow-up is expected to be with me or the referring physician based on results of planned workup. On 05/31/2022 she developed chest pain and underwent a heart catheterization procedure and stent placement and following the procedure felt confused for several days. In retrospect her thinks prior to the procedure 6 months she was having occasional forgetfulness. She was evaluated by her PCP and initially symptoms attributed to polypharmacy. She was also noted to have difficulty with driving and had developed a right superior quadrantanopia. She was admitted to [facility] with increasing confusion and aphasia on 06/08/2022 with MRI brain demonstrating a lesion in splenium of corpus callosum with possible faint diffusion restriction. She was discharged home and followedup in cerebrovascular clinic with Dr. Pro who initially suspected daly-procedural infarct with repeat MRI brain in July relatively stable findings. After repeat MRI in August 2022 showed slight interval progression in the lesion she was referred to brain tumor group, Dr. Jovel and patient unde rwent right sided stereotactic brain biopsy of corpus callosum lesion on 11/04/22 which was non-diagnostic. Follow up with Dr. Soto on 11/12/2022 and eventually on 12/09/2022 given the progressiveissues with gait, memory, and vision she was admitted to [facility] main campus 12/09/2022 - 12/15/2022 for expedited workup. She underwent extensive evaluation including systemic imaging (without evidence of malignancy), MRI neuroaxis (possible enhancement in cauda equina), and LP (without evidence of infection, malignancy, or inflammation). Patient was discharged home and had outpatient neuro-ophthalmology evaluation by Dr. Rios on 12/15/2022 who confirmed the right HH without any additional relevant occular pathology. She is currently receiving ST and OT outpatient. Since teenage years has had a history of seizure like events. Last one was about 2 years ago. She has an aura and loses consciousness about 30 seconds or so. These episodes can be triggered by severepain. She has been smoking for approximately 37 years for about a pack a day. She is cutting down tobaccouse now. She has a history of marijuana use but stopped when she was 16 years old. She denies significant alcohol use. Current Symptoms: Memory impairment Imbalance Fatigue Alexia Dizziness Word finding difficulty Depression Neuro-QoL Functions (higher=better functioning) Flowsheet Row Office Visit from 01/12/2023 in [facility] Upper Extremity Domain T Score 49 Lower Extremity Domain T Score 37 Cognitive Function Domain T Score 27 Positive Affect Well Being T Score -- Ability To Participate In Social Roles T Score 41 Satisfaction With Social Roles T Score 34 Neuro-QoL Symptoms (higher=worse symptoms) Flowsheet Row Office Visit from 01/12/2023 in [facility] Sleep Domain T Score 64 Fatigue Domain T Score 65 Anxiety Domain T Score 66 Depression Domain T Score 65 Stigma Domain T Score 58 Emotional Behavior Dyscontrol T Score -- PAST HISTORY: has a past medical history of Asthma due to seasonal allergies (11/02/2022), Basal cell carcinoma (BCC) of cheek (2020), Bipolar affective (HCC), Coronary artery disease, Coronary artery disease involving wiyot coronary artery of wiyot heart without angina pectoris (11/02/2022), Gastroesophageal reflux disease without esophagitis (11/02/2022), Hyperlipidemia, Primary hypertension (11/02/2022), Seizures (HCC) (11/02/2022), and Stroke ([facility]). has a past surgical history that includes cardiac surg procedure unlist (2018); past surgical history of (05/2022); past surgical history of; shoulder arthroscopy/surgery (Right); cholecystectomy hx;tonsillectomy hx; past surgical history of; ligate fallopian tube; and excision & repair eyelidone-fourth lid margin (Left, 2020). has a current medication list which includes the following prescription(s): melatonin, probiotic, isosorbide mononitrate er, aspirin, enteric coated, albuterol hfa, evolocumab, ondansetron, pantoprazole dr, acetaminophen, senna- docusate, hydrochlorothiazide, bupropion xl, clonazepam, trazodone, topiramate, vilazodone, losartan, metoprolol succinate er, ezetimibe, cariprazine, and carbamazepine. Social History Tobacco Use Smoking status: Some Days Packs/day: 0.30 Years: 40.00 Additional pack years: 0.00 Total pack years: 12.00 Types: Cigarettes Smokeless tobacco: Never Tobacco comments: Trying to quit currently Used to smoke a pack per day on average family history includes Cancer in her father, granddaughter, maternal aunt, maternal grandmother, and mother; Cataract in her father, mother, and paternal grandmother; Heart in her father, maternal grandfather, and mother; Hypertension in her father and mother; Macular Degen in her paternal grandmother; Schizophrenia in her maternal aunt. PHYSICAL EXAM: BP 99/59 Pulse 69 Ht 170.2 cm (5' 7) Wt 82.6 kg (182 lb) BMI 28.51 kg/m Multiple Sclerosis Performance Test Flowsheet Row Office Visit from 01/12/2023 in [facility] Processing Speed Total Number Correct 28 Low-contrast letter acuity test-2.5 percent opacity 28 Low-contrast letter acuity test-100 percent opacity 57 Dominant hand Right hand MDT Left Hand Time 30.44 MDT Right Hand Time 27.72 Walking Speed Test (25 feet) 9.08 Hair, skin, nails, and joints were normal. Neck was supple without Lhermitte's phenomenon. Breathing comfortably on room air. There was no peripheral edema. The patient was alert and with normal language, attention and concentration, recent and remote memory, praxis, and intellectual function. Able to follow two step commands. Writing and reading intact.Able to copy complex shape. Able to spell WORLD backwards and count back serial 7s. Affect was Normal. The patient did not appear depressed. Visual acuity to near card was as follows: OD= 20/20 (without correction) OS= 20/20 (without correction). Visual gupta notable for right HH. Pupils were 3 mm and briskly reactive OU without a relative afferent pupillary defect. Funduscopic examination was normal without disc edema, erythema, or atrophy. Ocular ductions were full without nystagmus or ataxia. Facial sensation was normal. Muscles of mastication and facial expression were normal. Hearing was intact to finger rub bilaterally. Palatal movements were normal. Sternocleidomastoid and trapezius power were normal. Tongue movements were normal. There was no dysarthria. Motor Examination: There was no pronator drift. Right Upper Extremity: Left Upper Extremity: Deltoid 5/5 Deltoid 5/5 Biceps 5/5 Biceps 5/5 Triceps 5/5 Triceps 5/5 Wrist extensors 5/5 Wrist extensors 5/5 Wrist flexors 5/5 Wrist flexors 5/5 Dorsal interossei 5/5 Dorsal interossei 5/5 Finger extension 5/5 Finger extension 5/5 Tone (Carmen scale) 0 Tone (Carmen scale) 0 Right Lower Extremity: Left Lower Extremity: Hip flexors 5/5 Hip flexors 5/5 Hip extensors 5/5 Hip extensors 5/5 Knee flexors 5/5 Knee flexors 5/5 Knee extensors 5/5 Knee extensors 5/5 Dorsiflexors 5/5 Dorsiflexors 5/5 Plantarflexors 5/5 Plantarflexors 5/5 Toe extensors 5/5 Toe extensors 5/5 Toe flexors 5/5 Toe flexors 5/5 Tone (Carmen scale) 0 Tone (Carmen scale) 0 Reflexes: brachioradialis ++ brachioradialis ++ biceps ++ biceps ++ triceps ++ triceps ++ patellar ++ patellar ++ Achilles ++ Achilles ++ Wilson's sign Absent Wilson's sign Absent clonus absent clonus absent plantar response down plantar response down Coordination testing in the arms and legs was performed including [id number], rapid-alternating, and fine movements. Rapid movements were smooth with normal gloria. There was no dysmetria or ataxia. There were not signs of cerebellar dysfunction. Sensory examination: Sensory exam including light touch, vibration, proprioception, and Romberg's test was normal. Gait was normal, including heel, toe, and tandem walking. REVIEW OF RECORDS: MRI brain w/wo 07/03/2022: Corpus callosum splenium nonenhancing expansile lesion with internal cystic/necrotic foci, grossly stable compared with 06/08/2022. This is of indeterminate etiology, with considerations including sequela of a 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 process (noting additional patchy foci of signal abnormality in the cerebral white matter) versus other inflammatory, post infectious or cytotoxic process. Note that low-gradeneoplasm is not excluded, and continued follow-up is recommended. MRI brain w/wo 09/25/2022: Infiltrative process in the splenium the corpus callosum which, in view of the slight interval progression since the prior studies, would be worrisome for a glioma. MRI brain w/wo 12/07/2022: Unchanged appearance of the nonenhancing mildly expansile splenial lesion status post biopsy. No evidence of leptomeningeal disease. No elevated CBV in the spleen the corpus callosum or elsewhere in the brain. MRI cervical, thoracic, and lumbar spine w/wo 12/10/2022: Mild enhancement of the right S1 cauda equina nerve root and equivocal enhancement of the left S1 cauda equina nerve root. No definite enhancement is identified in the other cauda equina nerve roots.These findings are nonspecific given the relatively limited distribution and the nonenhancing nature of the primary lesion in the corpus callosum. No pathologic enhancement of the cervical or thoracic spine. No high-grade spinal canal or foraminal stenosis of the spine. REVIEW OF IMAGING STUDIES: Personally reviewed and agree with above. ASSESSMENT: 57 year old right handed female with relevant past medical history of CAD s/p stent placement (4 stents total, latest stent placed May 2022), HTN, HLD, bipolar disorder, seizure-like episodes, and tobacco use history presenting for follow up on evaluation of abnormal brain lesion (corpus callosum lesion). She developed right HH, alexia, aphasia, and confusion post recent stent placement in May 2022 (in retrospect patient may have had some mild memory impairment for the preceding 6 months). MRI brain for the first time in Jun 2022 showed a CC FLAIR lesion without GdE initially attributed to daly-procedural infarct but noted to have progression in size of lesion in August 2022 which prompted referral to brain tumor s/p right stereotactic biopsy which was non-diagnostic. She was admitted to hospital in Dec 2022 due to worsening of symptoms with extensive evaluation including PET scans, CT chest/abdomen/pelvis without clear primary malignancy or FDG uptake and CSF without evidence of inflammation, malignancy, or infections (including MNGS). Neuroaxis imaging demonstrated possible enhancement in right S1 nerve root. Her right HH vision symptoms may be related to daly-procedural infarct given the timing and possibly unrelated to the CC lesion but overall, the etiology of the brain lesion remains unclear despite extensive evaluation. At this time potential remaining etiologies include malignancy (low grade glioma), inflammatory lesion, or metabolic-toxic. The recently noted cauda equina enhancement is of unclear significance given absent accompanying neurological signs or symptoms. PLAN: - Repeat MRI brain w/wo (with perfusion per Dr. Soto) and MRI lumbar spine w/wo in March2023 (~3 months interval). - CDS1 panel. - Continue PT, OT, and speech therapy. - Discuss with psychiatry if able to change carbamazepine (given potential association between CBZ and CC lesion). - Will consider empiric immunotherapy in the future if needed if symptoms rapidly worsening. - Follow up again in March 2023 after the MRI scans. Office Visit on 01/12/23 CONSULT TO PHYSICAL THERAPY Seen with Dr. Lozano. Rich Gudino MD Neuroimmunology Fellow [facility] STAFF PHYSICIAN NOTE OF PERSONAL INVOLVEMENT IN CARE I have reviewed the progress note obtained and documented by the fellow and I personally participated in the rose components. I have discussed the case and management of the patient's care. The following comments revise or confirm relevant rose components of their note. IMPRESSION: This is a 57 year old female with a corpus callosum lesion, being followed by neuro-oncoloy, with biopsy showing gliosis and a small number of atypical cells. Overall she is clinically stable most recent MRI showed overall stable lesion. Extensive systemic work-up was negative. CSF showed no evidence of intrathecal antibody synthesis. No lesions within the spinal cord, but there was some distal root enhancement on the right. We will continue to follow with serial imaging next MRI scheduled for March 2023 and will obtain brain and L/S spine. Based on results will decide on further course of action. Given her overall clinical stability will hold off on steroids for now. All questions answered. SIGNATURE: Triston Lozano MD PhD DATE of SERVICE: January 13, 2023 documented in this encounterC[facility] Miscellaneous Notes* Telephone Encounter - Eva Robertson RN - 12/31/2022 8:37 AM EDT Time Frame: WEEK OF 02/22/23 Orders: MRI Brain w/wo contrast. Provider: Dr. Huizar in person visit same day as MRI if done at or within 1-[facility] Diagnosis: Brain lesion Time Frame: JOSE Week of 02/22/23 Orders: MRI of Lumbar spine w/wo contrast. Provider: Dr. Huizar in person visit same day as MRI if done at or within 1-2 days of MRI if notdone at . Diagnosis: Brain lesion documented in this encounterCincinnati [facility]08-24-2023 History of Present illness Narrative* Codie Soto MD - 12/24/2022 2:45 PM EDT Images from the original note were not included. [facility] NEURO-ONCOLOGY VIRTUAL VISIT NOTE This is a virtual visit using HIPAA compliant video platform. It required patient-provider interaction for the medical decision making as documented below. I have communicated my name and active licensure. The patient's identity and physical location wereverified at the time of this visit. Either the patient or their legal promotions representative has been informed of the risks and benefits of -- and alternatives to -- treatment through a remote evaluation andconsents to proceed with the evaluation remotely. 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 The patient is accompanied by her Marciano (2nd ), and her daughter Beena. Subjective History of Present Illness: 57YOF who has CAD, and has had 4 stents, the 1st 2 were done 4 years ago, and the last one was done in May 2022. On the day of the last coronary artery stent, she had a sudden sensation that something was wrong, as she said she became suddenly dyslexic. On further questioning, she was having what appears to have aphasia in the form of word finding difficulty, as well difficulty reading, she says that whatever she would read she could not understand the witting, and she also felt off mentally, meaning somewhat confused. No define LOC/passing out/nor syncope. Another symptom she noted is that she cannot see out of the right side of her peripheral vision,a dthis has continued like that. She saw her eye doctor she said and is the one who noticed also the visual field deficit ( I do nothave those records for my review). On 06/08/22, she sima to [facility] for the above issues. She saw cerebrovascular/stroke neurologist Dr. Pro and did extensive work up for possible CVA. On 10/21/22, Dr. Pro based on the MRI from that showed alight progression of the lesion, with the concern that this is a glioma referred the patient to our [facility] [place] for evaluation. Dr. Feliz performed a biopsy on 11/04/22. The pathology is non diagnostic for a brain tumor, a glioma, which is the concern from the radiological perspective as the lesion has progressed in size slightly. The pathology is reported as: FINAL DIAGNOSIS A. Brain, right corpus callosum lesion, stereotactic biopsy - Minute focus of atypical cells in a reactive background; - See comment. B. Brain, right corpus callosum lesion, stereotactic biopsy - Gliosis with scattered macrophages Diagnosis Comment The biopsy shows focal hypercellularity at one corner (less than 5% of tissue submitted) with atypical angulated elongated nuclei and fibrillary background suspicious for glioma. Unfortunately this area is only present on the frozen section slide and is cut through on the resubmitted tissue. It is not present in any of the other slides/block submitted. The remainder of the specimen shows white matter with scattered foamy macrophages and gliosis. Part B shows white matter with scattered macrophages and gliosis but does not have the atypical area noted in frozen section. Immunohistochemical stains performed to help with classification show thefollowing (B1): CD68 highlights scattered macrophages; IDH1 R132H negative (wt); ATRX retained; p53 strong nuclear positivity 10%; Ki-67 proliferative index 1%; BRAF V600E negative (wildtype); H3 K27M negative (wt); H3 K27me3 retained; Luxol fast blue focal mild loss; Neurofilament cocktail with focal decreased axons; GMS negative for fungus; Gram negative for bacteria. FISH for EGFR reported separately. Slides also reviewed by Drs. Maria Luisa Leonardo and Jesu Narvaez who agree. As of today, she has persistent, difficulty both findings work, she still has the visual field deficit, which has extended to the lower quadrant as the initial report was that she had a right superior quadrantanopia. Also, she still feels foggy, meaning not very sharp mentally, yet she is still able to perform her ADL's. She is also having poor sleep. She says that she has been taking a multivitamin for many years, and she stopped them the week prior to the last stents, as per doctors' advice. No weight lost. No change in diet No new medications No similar history of the above No known neurological issue/diseases. She reports that she has bipolar disorder. Heide Dumont RN at 11/12/2022 7:44 AM Patient is a 57 y/o female from [place], [place] with PMH CAD (s/p stent placement- on ASA and Plavix), HTN, Asthma Reason for consult: brain lesion Surgery: 11/04/22- Right sided brain biopsy of corpus callosum lesion Pathology: Minute focus of atypical cells in a reactive background; Gliosis with scattered macrophages. EGFR NOT AMPLIFIED CD68 highlights scattered macrophages; IDH1 R132H negative (wt); ATRX retained; p53 strong nuclear positivity 10%; Ki-67 proliferative index 1%; BRAF V600E negative (wildtype); H3 K27M negative (wt); H3 K27me3 retained; Luxol fast blue focal mild loss; Neurofilament cocktail with focal decreased axons; GMS negative for fungus; Gram negative for bacteria. Neurosurgeon Dr Jovel Radiation oncologist: None Cardiovascular neurology_ Dr Pro AED: None Steroids: Decadron 2mg tablet- tapers to 2mg to twice daily without further instructions Treatment: none Pertinent History: per epic review 57 y/o female admitted to [facility] due to confusion and aphasia on 06/08/22. Recent coronary stent placement and stroke work up included CT and MRI Brain which revealed a faint diffusion restriction in the splenium corpus callosum. More prominent FLAIR change in this area. Some FLAIR changes s ubcortical in right (2) and left (1) white matter without diffusion restriction. She was dischargedhome and a repeated MRI on 07/03/22 showed a corpus callosum splenium nonenhancing expansile lesionwith internal cystic/necrotic foci, grossly stable compared with 06/08/2022 She was seen by vascular neurology- Dr Pro on 08/25/22- fper her notes- elt off since June. noted some changes in her speech and driving. 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 Review of CTA head ->normal cerebrovascular circulation. ECHO - No PFO PLan for repeat MRI , [facility]. Repeat MRI done 09/25/22 showed progression of lesion and she was seen by Dr Jovel on 10/27/22 Ather visit she was still having difficulty reading/writing, balance issues, recall issues and had lost peripheral vision on the Right. She was unable to work or drive. Recommendations made for brain bi opsy s/p 11/04/22- Right sided brain biopsy of corpus callosum lesion MRi Brain 09/25/22 Infiltrative process in the splenium the corpus callosum which, in view of the slight interval progression since the prior studies, would be worrisome for a glioma. MRi Brain 07/03/22 Corpus callosum splenium nonenhancing expansile lesion with internal cystic/necrotic foci, grossly stable compared with 06/08/2022. This is of indeterminate etiology, with considerations including sequela of a 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 process (noting additional patchy foci of signal abnormality in the cerebral white matter) versus other inflammatory, post infectious or cytotoxic process. Note that low-grade neoplasm is not excluded, and continued follow-up is recommended. Heide Dumont, RN, BSN [facility] 11/17/2022 INTERIM EVENTS No new symptoms She is joseph to go oveer the Brain tumor Board recommendations. December 24, 2022 INTERIM EVENTS Virtual visit Patient is accompanied by her daughter and . DISCHARGE SUMMARY NEUROLOGY PATIENT NAME: Josie Landis ADMISSION DATE: 12/09/2022 DISCHARGE DATE: 12/15/2022 ATTENDING: No att. providers found Code Status: Not on file PCP: Solis Cool DO HOSPITAL COURSE: 57 yo RHF PMH of CAD s/p stent placement (4 stents total, latest stent placed May 2022), GERD, HTN,bipolar, 40-year tobacco use history, asthma presenting with 6-month history of word-finding difficulty, alexia, visual field deficit i/s/o brain MRI with splenium of corpus callosum lesion, progressive in size on follow-up MRI. Outpatient stroke evaluation feels her presentation is not c/w stroke.She is now s/p biopsy on 11/02, of which pathology was non-diagnostic. She presents 12/09 as a direct admit from clinic for further workup and evaluation. #splenium of corpus callosum lesion - Per Dr. Bhupendra Armstrong: with the constellation of signs and symptoms, including aphasia (mainly word finding difficulty), alexia, dyslexia, confusion, and visual field deficit on the right in the context of a lesion in the CC, this suggests highly a disconnecting syndrome - previous workup to date: - MRI brain 06/08 with faint diffusion restriction in the splenium of the corpus callosum, with some faint ADC hypointensity and FLAIR changes in subcortical right and left white matter without diffusion restriction - MRI brain 07/03 with corpus callosum splenium nonenhancing expansile lesion with internal cystic/necrotic foci. Interval progression on 09/25 MRI. - S/p stereotactic needle biopsy on 11/04, pathology: The biopsy shows focal hypercellularity at one corner (less than 5% of tissue submitted) with atypical angulated elongated nuclei and fibrillary background suspicious for glioma. Unfortunately this area is only present on the frozen section slide and is cut through on the resubmitted tissue. It is not present in any of the other slides/block submitted. The remainder of the specimen shows white matter with scattered foamy macrophages and gliosis - S/p decadron taper from 11/05-12/04 - CT C/A/P 11/25 with no suspicious primary lung malignancy noted, observed few scattered small pulmonary nodules measuring less than 5 mm. - MRI brain 12/07 with unchanged appearance of the nonenhancing mildly expansile splenial lesion s/p biopsy; no evidence of leptomeningeal disease, no elevated CBV in the splenium of the corpus callosum or elsewhere - workup on during [facility] admission: - MRI C/T/L WWO 12/10 mild enhancement of the R S1 cauda equina nerve root and equivocal enhancementof the L S1 cauda equina nerve root. No definite enhancement is identified in the other cauda equina nerve roots. These findings are nonspecific given the relatively limited distribution and the nonenhancing nature of the primary lesion in the corpus callosum. No 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 disease, drop mets - LP 12/10 - routine analysis and cell count wnl, protein 81, glucose 64, no organisms on C+S prelimresult, IgG/Alb ration 0.08, HSV negative, Cryptococcal Ag negative, MBP 8.63, oligoclonal bands negative, cytology unremarkable, flow cytometry with no evidence of lymphoproliferative disorder, - PET scan 12/13 Brain: No hypermetabolic lesions in the brain to suggest metastases or FDG avid neoplastic process. The lesion in the posterior corpus callosum demonstrated no significant FDG uptake. The findings compatible with low-grade neoplasm or nonneoplastic process. No focal uptake in the head and neck, chest, abdomen and pelvis, or extremities. -- per ID consult: HIV screen, remote hep screen, histo urine antigen, Mycoplasma IgG all unremarkable Plan - f/u ENS2 - f/u remaining LP studies: ENC2, MNGS, bacterial culture, fungal culture, AFB culture - neuro-ophthalmology eval to define whether visual field deficit matches with her brain lesions vsother cause - scheduled 12/15 after discharge No new issues She is here for post hospitalization follow up. Last Chemo: N/A Current Steroids dose: Start End dexAMETHasone (DECADRON) 2 mg tablet (Discontinued) 100 tablet 0 11/05/2022 11/17/2022 Sig: Take 4 tablets in the morning and in the afternoon for 5 days. Take 3 tablets in the morning and in the afternoon for 5 days. Current dose as of 11/17/22: Then take 2 tablets in the morning and in the afternoon for 5 days.Then take 1 tablet in the morning and afternoon until directed otherwise. Sent to pharmacy as: dexAMETHasone (DECADRON) 2 mg tablet Start November 20: 2 mg BID for 5 days Start November 25: 2 mg once day for 5 days November 30: 1 MG (1/2 Tab) FOR 5 DAYS THEN OFF. Current AED Dose: N/A 12/09/2022: INTERIM EVENTS. She is here to go over the MRI of the brain done on 12/07/22, and CT chest/abd/pelvis. The patient is accompanied by her Marciano (2nd ), and her daughter Beena. -issues worsening,gait difficulty, memory and vision. Although her repeat MRI from 12/07/22, shows no change, it is concerning that her symptoms are worsening, with no definite answer. I think that in order to expedite the planned work up and hopefully to get an answer for the patient, I think admitting the patient is what I would recommend. I spoke with Dr. Triston Lozano, neurology staff for primary neurology service, and discussed patient's case. Dr. Lozano, agreed that the patient requires admission to neurology to expedite work up and to elucidate any pathology that may require rather rapid intervention. I explained the above to the patient and family and they agreed. I called admissions, and the patient will be admitted under Dr. Lozano, who has accepted the patient. In addition to the work up and consults as noted below, further work up as Dr. Lozano may deem necessary. The work up will also include LP for CSF analysis. Therapy Status Data Form Past Medical History: PAST MEDICAL HISTORY Diagnosis Date Asthma due to seasonal allergies 11/02/2022 Basal cell carcinoma (BCC) of cheek 2020 left cheek Coronary artery disease Coronary artery disease involving wiyot coronary artery of wiyot heart without angina pectoris 11/02/2022 Gastroesophageal reflux disease without esophagitis 11/02/2022 Primary hypertension 11/02/2022 Seizures (HCC) 11/02/2022 Stroke (HCC) Past Surgical History: PAST SURGICAL HISTORY Procedure Laterality Date CARDIAC SURG PROCEDURE UNLIST 2018 cardiac stents x 2 CHOLECYSTECTOMY HX EXCISION & REPAIR EYELID ONE-FOURTH LID MARGIN Left 2020 removal of BCC from left cheek LIGATE FALLOPIAN TUBE PAST SURGICAL HISTORY OF 05/2022 cardiac stent x 1 PAST SURGICAL HISTORY OF hiatal hernia repair PAST SURGICAL HISTORY OF partial hysterectomy SHOULDER ARTHROSCOPY/SURGERY Right torn rotator cuff TONSILLECTOMY HX Family History: FAMILY HISTORY Problem Relation Age of Onset Cataract Father Heart Father stroke Hypertension Father Cancer Father Basal cell cancer Cataract Mother Heart Mother heart attack, stents Hypertension Mother Cancer Mother basal cell carcinoma of ear Cancer Maternal Grandmother METS and unknown primary site Heart Maternal Grandfather of heart exploded Macular Degen Paternal Grandmother Cataract Paternal Grandmother Cancer Maternal Aunt METS and not sure of primary site Cancer Granddaughter neuroblastoma Anesthesia Problems No Family History Diabetes No Family History No family H/O neurological conditions No H/O brain tumors in family No H/O 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 diseases in the family She has 2 biological daughters who are healthy. Social History Tobacco Use Smoking status: Some Days Packs/day: 0.30 Years: 40.00 Additional pack years: 0.00 Total pack years: 12.00 Types: Cigarettes Smokeless tobacco: Never Tobacco comments: Trying to quit currently Used to smoke a pack per day on average Vaping Use Vaping Use: Some days Substances: Flavoring Devices: Disposable Substance Use Topics Alcohol use: Not Currently Drug use: Never Allergies: Budesonide-Formoterol, Aspirin, Latex, Penicillins, Adhesive Tape-Silicones, Budesonide, and Formoterol Current Outpatient Medications Medication Sig lactobacillus combination no.4 (PROBIOTIC) 3 billion cell cap isosorbide mononitrate ER (IMDUR) 30 mg 24 hr tablet Take 1 tablet by mouth every afternoon. aspirin, enteric coated (ASPIRIN, ENTERIC COATED) 81 mg EC tablet Take 1 tablet by mouth every afternoon. albuterol HFA (PROVENTIL HFA, VENTOLIN HFA) 90 mcg/actuation inhaler Inhale as instructed. evolocumab 140 mg/mL subcutaneous pen injector (REPATHA SURECLICK) Inject 140 mg subcutaneously every 2 weeks. ondansetron (ZOFRAN) 8 mg tablet Take 1 tablet by mouth every 8 hours as needed for nausea/vomiting. pantoprazole DR (PROTONIX) 40 mg tablet Take 1 tablet by mouth once daily. acetaminophen (TYLENOL) 325 mg tablet 2 tablets by ORAL/FEEDING TUBE route every 4 hours as needed for pain. senna-docusate (SENNA-S) 8.6-50 mg per tablet 1 tablet by ORAL/FEEDING TUBE route twice daily. hydroCHLOROthiazide 12.5 mg tablet Take 12.5 mg by mouth once daily. buPROPion XL (WELLBUTRIN XL) 300 mg 24 hr tablet Take 300 mg by mouth every morning. clonazePAM (KLONOPIN) 0.5 mg tablet Take 0.5 mg by mouth twice daily as needed for anxiety. traZODone (DESYREL) 100 mg tablet Take 300 mg by mouth daily at bedtime. topiramate (TOPAMAX) 100 mg tablet Take 100 mg by mouth twice daily. vilazodone (VIIBRYD) 40 mg tablet Take 40 mg by mouth once daily. losartan (COZAAR) 25 mg tablet Take 25 mg by mouth once daily. metoprolol succinate ER (TOPROL XL) 25 mg 24 hr tablet Take 12.5 mg by mouth once daily. ezetimibe (ZETIA) 10 mg tablet Take 10 mg by mouth once daily. cariprazine (VRAYLAR) 3 mg capsule Take 3 mg by mouth once daily. carBAMazepine (TEGRETOL) 200 mg tablet Take 400 mg by mouth twice daily. No current facility-administered medications for this visit. Review of systems: Constitutional: No recent fever or weight loss. Eyes: No history of glaucoma or cataracts. ENMT: No recent ear infection, nasal congestion, mouth sores or sore throat. CV: No history of chest pain, palpitations or leg swelling. Respiratory: No history of SOB, asthma or recent cough. Gastrointestinal: No history of nausea, vomiting, dysphagia or abdominal pain. Genitourinary: No history of hematuria or dysuria. Musculoskeletal: No complaint of arthritis, unstable gait or arm/leg weakness. Psychiatric: No history of hallucinations or depression or anxiety. ROS Neurological: No complaint of headache. No complaint of tinnitus. No complaint of decreased hearing. No complaint of diplopia. No complaints of decreased visual acuity. No complaint of arm/leg numbness. No problem with limb coordination. No complaint of syncope, seizures or disorientation. Objective Physical Exam: There were no vitals taken for this visit. MINI-MENTAL STATE EXAMINATION (MMSE) performed 12/09/2022 Make the patient comfortable and establish rapport. Ask questions in the order listed. Total possible score is 30. ORIENTATION 1. What is the (year) (season) (date) (day) (month)? Max score=5 Patient's score=5 2. Where are we? (state) (county) (town or city) (hospital) (floor)? Max score=5 Patient's score=4 REGISTRATION Ask the patient if you may test his/her memory. Then say the names of 3 unrelated objects, clearly and slowly, about one second for each (eg, apple, table, rick). After you have said all 3, ask him/her to repeat them. This first repetition determines the score(0-3), but keep saying them until he/she can repeat all 3, up to 6 trials. Max score=3 Patient's score=3 ATTENTION AND CALCULATION Ask the patient to begin with 100 and count backwards by 7. Stop after 5 subtractions (93, 86, 79, 72, 65). Score the total number of correct answers. If the patient cannot or will not perform the serial 7s task, ask him/her to spell the word WORLD backwards. The score is the number of letters in the correct order (eg, DLROW=5; DLRW=4; DLORW, DLW=3; OW=2; DRLWO=1). Max score=5 Patient's score=4 RECALL Ask the patient to recall the 3 items repeated above (eg, apple, table, rick). Max score=3 Patient's score=2 and 3 LANGUAGE Naming: Show the patient a wristwatch and ask him/her what it is. Repeat for pencil. Max score=2 Patient's score=2 Repetition: Ask the patient to repeat the phrase No ifs, ands, or buts: after you. Max score=1 Patient's score=1 3-Stage Command: Give the patient a piece of blank paper and ask him/her to take a piece of paper in your right hand, fold it in half, put it on the floor. Score 1 point for each part correctly executed. Max score=3 Patient's score=3 Reading: On a blank piece of paper, print the sentence CLOSE YOUR EYES in letters large enough for the patient to see clearly. Ask him/her to read it and do what it says. Score 1 point only if he/sheactually closes his/her eyes. Max score=1 Patient's score=1 Writing: Give the patient a blank piece of paper and ask him/her to write a sentence. Do not dictate a sentence; it is to be written spontaneously. It must contain a subject and verb and be sensible.Correct grammar and punctuation are not necessary. Max score=1 Patient's score=1 Copying: Ask the patient to copy the figure of intersecting pentagons exactly as it is. All 10 angles must be present and 2 must intersect to form a 4-sided figure to score 1 point. Tremor and rotation are ignored. Max score=1 Patient's score=1 MAXIMUM TOTAL SCORE = 30 TOTAL SCORE = 27/30 Suggested guideline for determining the severity of cognitive impairment: Mild: MMSE>21 Moderate: MMSE 10-20 Severe: MMSE<9 Expected decline in MMSE scores in untreated mild to moderate Alzheimer's patient is 2 to 4 points per year. *Adapted from Folstein et al.1 and Kinza and Folstein2. (c) 1975, 1997 [employer] Used withpermission. References: 1. Folstein MF, Folstein SE, Perez PA. Mini-Mental State: a practical method for grading the cognitive state of patients for the clinician. J Psychiatr Res. 1975; 12:189-198. 2. JR Kinza, Nabeel BENNETT, Mini-Mental State Examination (MMSE). Psychopharm Bull. 1988;24:689-692. 3. Jonelle JT, Aniceto FJ, Lesley RD, Teja A, Michelle F. Neuropsychological function in Alzheimer's disease: pattern of impairment and rates of progression. Arch Neurol. 1988;45:263-268. 4. Sadi JA, Jae B,Chon S-P, Paul SHEEHAN. Predictors of cognitive and functional progression in patients with probable Alzheimer's disease. Neurology. 1992;42:5345-4222. GENERAL EXAM: General appearance: Well appearing, alert, in no acute distress Skin: Skin color, texture, turgor normal Oropharynx: No thrush noted. Lungs: Lungs clear to auscultation. No wheezing, rhonchi, rales Heart: RRR without murmur, gallop, or rubs. No ectopy Abdomen: Normal abdominal exam, Abdomen soft, non-tender. Bowel sounds normal. Extremities: No deformities, skin discoloration, clubbing or cyanosis. Good capillary refill, no edema to BLE. Donna's sign negative. No pain to palpation. NEUROLOGICAL EXAM: Higher integrative functions: Oriented to person, place & time. See MMSE Attention Span and Concentration: Good. Language: Accurate naming of objects. Good comprehension. Fund of Knowledge: Good. Dysarthria Stuttering No definite language dysfunction. 2nd CN: Right homonymous hemianopsia 3rd,4th,6th CN: Pupils equal, round, react to light, full extraocular movements. 5th CN: No decrease in facial sensation 7th CN: Facial muscles symmetric and strong. 8th CN: Hears finger rub well bilaterally. 9th CN: Gag reflex not tested 10th CN: Spontaneous palate movement, full and symmetric. 11th CN: Full strength in shoulder shrug. 12th CN: Tongue protrusion full and midline. Sensation: No decrease in sensation in upper or lower limbs to touch. Musculoskeletal: Gait steady. Tandem walk normal. Romberg negative. Motor: 5/5 RUE/RLE; 5/5 LUE/LLENormal muscle tone without atrophy in all limbs. Coordination: Rapid alternating movements LUE intact; RUE intact Reflexes: 1-2+ ALL limbs. Plantar response down going. Karnofsky performance status: 80 - Normal activity with effort, some signs or symptoms of disease. ECOG performance status: 1 - Restricted in physically strenuous activity but ambulatory and able tocarry out work of a light or sedentary nature, e.g., light house work or office work. PHQ 2 and 9 Total Scores 11/24/2022 PHQ-2 Score 4 PHQ-9 Score 15 Labs: CBC Latest Ref Rng & Units 12/12/2022 12/14/2022 12/15/2022 WBC 3.70 - 11.00 k/uL 3.68(L) 3.88 4.74 RBC 3.90 - 5.20 m/uL 4.64 4.40 4.28 HEMOGLOBIN 11.5 - 15.5 g/dL 13.0 12.5 12.2 HEMATOCRIT 36.0 - 46.0 % 39.7 38.1 37.2 MCV 80.0 - 100.0 fL 85.6 86.6 86.9 MCH 26.0 - 34.0 pg 28.0 28.4 28.5 MCHC 30.5 - 36.0 g/dL 32.7 32.8 32.8 RDW-CV 11.5 - 15.0 % 13.9 14.0 14.1 PLATELETS 150 - 400 k/uL 179 180 179 MPV 9.0 - 12.7 fL 9.3 8.7(L) 9.0 BASO% % - - - ABS NEUT (ANC) 1.45 - 7.50 k/uL - - - ABS LYMPH 1.00 - 4.00 k/uL - - - ABS MONO <0.87 k/uL - - - ABS EOSIN <0.46 k/uL - - - ABS BASO <0.11 k/uL - - - NRBC /100 WBC - - - CMP Latest Ref Rng & Units 12/12/2022 12/14/2022 12/15/2022 SODIUM 136 - 144 mmol/L 138 140 137 POTASSIUM 3.7 - 5.1 mmol/L 4.2 4.2 3.9 CHLORIDE 97 - 105 mmol/L 106(H) 107(H) 104 CO2 22 - 30 mmol/L 24 23 22 GLUCOSE 74 - 99 mg/dL 109(H) 90 97 BUN 7 - 21 mg/dL 8 9 9 CREATININE 0.58 - 0.96 mg/dL 0.85 0.93 0.95 EGFR >=60 mL/min/1.73m 81 73 71 PROTEIN, TOTAL 6.3 - 8.0 g/dL - - - ALBUMIN 3.9 - 4.9 g/dL - - - CALCIUM, TOTAL 8.5 - 10.2 mg/dL 9.3 9.1 9.0 BILIRUBIN, TOTAL 0.2 - 1.3 mg/dL - - - AST 13 - 35 U/L - - - ALT 7 - 38 U/L - - - ALKALINE PHOSPHATASE 34 - 123 U/L - - - Final Pathology: \\\ SURGICAL PATHOLOGY: [id number] Order: [id number] Collected 11/04/2022 11:13 AM Status: Final result Visible to patient: No (scheduled for 11/14/2022 1:09 PM) Dx: Glioma (HCC) 0 Result Notes Component FINAL DIAGNOSIS A. Brain, right corpus callosum lesion, stereotactic biopsy - Minute focus of atypical cells in a reactive background; - See comment. B. Brain, right corpus callosum lesion, stereotactic biopsy - Gliosis with scattered macrophages. Diagnosis Comment The biopsy shows focal hypercellularity at one corner (less than 5% of tissue submitted) with atypical angulated elongated nuclei and fibrillary background suspicious for glioma. Unfortunately this area is only present on the frozen section slide and is cut through on the resubmitted tissue. It is not present in any of the other slides/block submitted. The remainder of the specimen shows white matter with scattered foamy macrophages and gliosis. Part B shows white matter with scattered macrophages and gliosis but does not have the atypical area noted in frozen section. Immunohistochemical stains performed to help with classification show thefollowing (B1): CD68 highlights scattered macrophages; IDH1 R132H negative (wt); ATRX retained; p53 strong nuclear positivity 10%; Ki-67 proliferative index 1%; BRAF V600E negative (wildtype); H3 K27M negative (wt); H3 K27me3 retained; Luxol fast blue focal mild loss; Neurofilament cocktail with focal decreased axons; GMS negative for fungus; Gram negative for bacteria. FISH for EGFR reported separately. Slides also reviewed by Drs. Maria Luisa Leonardo and Jesu Narvaez who agree. Laboratory Developed Test (LDT) Disclaimer: Performance characteristics of immunohistochemical, immunofluorescent and chromogenic in-situ hybridization tests have been determined by the performing laboratory within [facility] s [facility] [place] ([facility], [facility], [facility], [facility], [facility], or [facility]) in a manner consistent with CLIA requirements. One or more of these tests have not been cleared or approved by the FDA. [facility] is regulated under CLIA as qualified to perform high-complexity testing. These tests are used for clinical purposes. They should not be regarded as investigational or for research. Positive and negative controls stain appropriately. Gross Description A. BRAIN BIOPSY Received fresh for intraoperative evaluation labeled as right corpus callosum lesion is a whitishoval piece of tissue measuring 5 x 4 x 0.2 cm. Half of the tissue is submitted for frozen section evaluation in FSA 1. The rest of the tissue is submitted for permanent in A2. Gross examination performed at [facility], [address] [place] [address] 11/04/2022 B. BRAIN BIOPSY Received fresh labeled right corpus callosum lesion are multiple fragments of white-goodson tissue aggregating to 0.6 x 0.5 x 0.2 cm. The specimen is submitted entirely in cassette B1. [place] [address] CARLOS MANUEL/DANIELE 11/04/22 12:21 PM Intraoperative Diagnosis A. 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 (Dr. Narvaez). Intraoperative diagnosis performed at [address] 11/04/2022 Clinical History Pre-op diagnosis: Glioma (HCC) [C71.9] Performing Lab Diagnostic interpretation performed at [facility], [address] [place] [address] CLIA# [id number] Dross Skimmer: Jasen Rivera M.D. Resulting Agency [facility] Specimen Collected: 11/04/22 11:13 AM EDT Last Resulted: 11/09/22 1:09 PM EDT Order Details View Encounter Lab and Collection Details Routing Result History View All Conversations on this Encounter Scans on Order [id number] Document on 11/09/2022 1:09 PM by Anusha Thomas MD Result Care Coordination Patient Communication 11/14/2022 1:09 PM Release Now Not seen Back to Top FISH FOR EGFR: [id number] Order: [id number] - Reflex for Order [id number] Collected 11/04/2022 11:22 AM Status: Final result Visible to patient: Yes (seen) Dx: Glioma (HCC) 0 Result Notes Component FISH FOR EGFR FISH for EGFR Laboratory Accession Number: [id number] Case: [id number] Block: B1 Sample Type: FFPET Sample Description: BRAIN BIOPSY, RIGHT CORPUS CALLOSUM LESION Received Date: 11/06/2022 RESULTS: EGFR NOT AMPLIFIED Number of nuclei scored: 40 INTERPRETATION: Negative for amplification of the EGFR gene. Clinical and pathological correlation is recommended. The following FISH results were obtained: EGFR: 1.78 CEP7: 2.15 EGFR/CEP7 ratio: 0.83 (Reference Range: Amplified >2.00) COMMENT: A combination of genetic signature and histology stratifies lower- grade gliomas better than histology alone. IDH-wildtype infiltrating or diffuse astrocytomas with EGFR amplification are predicted to follow an aggressive clinical course resembling that of IDH-wildtype glioblastoma. Reference: Néstor JACOME et al. cIMPACT-NOW update 3: recommended diagnostic criteria for Diffuse astrocytic glioma, IDH- wildtype, with molecular features of glioblastoma, WHO grade IV. Acta Neuropathol. 2018 Nov;136(5):805-810. METHODOLOGY: Amplification of the Epidermal Growth Factor Receptor (EGFR) gene was evaluated with interphase fluorescence in situ hybridization (FISH) on formalin-fixed paraffin embedded tissue sections using the LSI EGFR (7p11.2) and chromosome 7 centromere (CEP 7) probes ([employer], [place], [place]). The slides were scored manually. LIMITATIONS: This test will not identify all rearrangements involving EGFR. Rare, cryptic abnormalities may be below the resolution of the assay, or may otherwise be undetected. Specimen size, quality or representativeness can affect the quality of the result. This assay has been validated for tissues fixed with 10% neutral buffered formalin. Decalcification agents and fixation agents containing heavy metals, e.g. B5, or harsh acid or base components (e.g. Bouin's solution) can adversely impact assay performance. DISCLAIMER: This test was developed and its performance characteristics determined by the [facility]'s [facility] [place] ([facility]). It has not been cleared or approved by the FDA. [facility] is regulated under CLIA as qualified to perform high- complexity testing. This test is used for clinical purposes. It should not be regarded as investigational or for research. Interpretation performed at [facility], [address] [place] [id number]. CLIA Number: [id number] As reviewed by Mayra Louis MD, PhD Resulting Agency [facility] Specimen Collected: 11/04/22 11:22 AM EDT Last Resulted: 11/09/22 3:26 PM EDT Order Details View Encounter Lab and Collection Details Routing Result History View All Conversations on this Encounter Result Care Coordination Patient Communication Add Comments Seen Back to Top Specimen Collection Information ID Source Type Collected By Time Frozen A BRAIN BIOPSY Tissue Carlos Jovel MD 11/04/22 1113 Yes Description: right corpus callosum lesion B BRAIN BIOPSY Tissue Carlos Jovel MD 11/04/22 1122 No Description: right corpus callosum lesion Additional Information Diagnosis codes: Glioma (HCC) [C71.9] Comments: Pre-op diagnosis: Glioma (HCC) [C71.9] Scanned Documents Result Information Status: Final result (Resulted: 11/09/2022 1:09 PM) Provider Status: Open Questions Order Question Answer Source of specimen(s): Clinical History SURGICAL PATHOLOGY (Order [id number]) FISH FOR EGFR (Order [id number]) - Reflex for Order [id number] Patient Release Status: This result is scheduled for release on 11/14/2022 1:09 PM. Routing History Priority Sent On From To Message Type 11/09/2022 3:26 PM Lab, Background User Anusha Thomas MD Results 11/09/2022 1:09 PM Lab, Background User Carlos Jovel MD Results 11/09/2022 1:09 PM Lab, Background User Triston Guy MD Results View [facility] SURGICAL PATHOLOGY (Order #[id number]) on 11/04/22 CAP/CLIA/Joint Commission Regulatory Result Report SURGICAL PATHOLOGY (Order #[id number]) on 11/04/22 SURGICAL PATHOLOGY: Patient Communication 11/14/2022 1:09 PM Release Now Not seen Imaging: Results CT CHEST W IVCON (Acc#[id number]) (Order [id number]) Patient Info Patient Name Sex Josie Landis ([id number]) Female 1965 Imaging Findings Finding Acuity Linked Recommendation Recommendation Status Finding Status Incidental Reviewed 11/25/2022 5:41 PM - Radiology, [place] In Component Results Component Performing Lab Radiology Result (Actionable) (Final) CCRAD ACTIONABLE Comment: This report contains an incidental or actionable finding. This finding may be a new finding separate from the reason your provider ordered the imaging test or it may be an already known finding that needs additional or continued follow-up. Because of this incidental or actionable finding, you may need another test (imaging or a different type of test). Please contact your provider for the next steps. Impression IMPRESSION: 1. No suspicious primary lung malignancy noted. 2. Few scattered small pulmonary nodules measuring less than 5 mm. Incidental Finding: Follow-up Acuity: Incidental Finding: Solid: <6 mm (solitary or multiple) Routing Code: N/A Recommendation: No imaging follow-up is recommended Time Frame: N/A Comments: If there are risk factors for lung malignancy, a follow-up chest CT exam could be obtained in 12 months Physical Chemistry Teacher: RHIANNON Transcribe Date/Time: Nov 25 2022 5:31P Dictated by : TOMAS DEVINE MD This examination was interpreted and the report reviewed and electronically signed by: TOMAS DEVINE MD on Nov 25 2022 5:38PM EST Results-Findings * * *Final Report* * * DATE OF EXAM: Nov 25 2022 12:18PM [facility] 0539 - CT CHEST W IVCON / PROCEDURE REASON: Lesion of brain * * * * Physician Interpretation * * * * EXAMINATION: CHEST CT WITH CONTRAST CLINICAL HISTORY: Brain lesion. Evaluate for occult malignancy. Technique: Spiral CT acquisition of the chest from the thoracic inlet to the upper abdomen following IV contrast. MQ: CTCW_6 Contrast: 100 mL Omnipaque [address] Radiation dose: Integrated Dose-length product (DLP) for this visit = 840 mGy*cm CT Dose Reduction Employed: Automated exposure control(AEC) and iterative recon Comparison: No relevant prior studies available. RESULT: Limitations: None. Lines, tubes, and devices: None Lung parenchyma, pleural space and airways: Lungs are clear of focal consolidation. Few small noncalcified pulmonary nodules are identified. For reference, 3 mm nodule in the posterior RIGHT lower lobe (image 143), 3 mm nodule in the medial RIGHT lower lobe (image 121), 3 mm nodule in the lateral RIGHT upper lobe (image 46) and 2 mm nodules in the lateral LEFT lower lobe (image 100) and LEFT upper lobe (image 53). A calcified granuloma is identified in the anterior RIGHT upper lobe. Mild diffuse bronchial wall thickening is noted. There is mild mosaic attenuation.. Streaky linear bands of atelectasis are present in both lungs. There is mild elevation of the LEFT hemidiaphragm. Minimal biapical scarring is present. There is no pleural effusion. The trachea and central airways appear patent, devoid of endobronchial lesion. Lower neck, lymph nodes, and mediastinum: No obvious abnormality in the imaged thyroid gland. A borderline enlarged 8 mm LEFT hilar lymph node is identified (image 90). There are calcified thoracic lymph nodes suggestive of remote granulomatous disease. The esophagus is mildly patulous. Heart, pericardium, and thoracic vessels: The cardiac chambers are normal in size. There is no pericardial effusion or thickening. The main pulmonary artery is normal in calibre. The thoracic aorta is normal in calibre. The arch branching pattern is normal. Scattered coronary artery calcifications are noted, although the study is not optimized for coronary assessment. Bones and soft tissues: Chest wall soft tissues are unremarkable. The vertebral body heights appear symmetric and well-maintained. Upper abdomen: The concurrently performed CT abdomen and pelvis will be reported separately. Pediatric Dental Assistant (topogram) images: No additional findings. Result History CT CHEST W IVCON (Order #[id number]) on 11/25/2022 - Order Result History Report Result Information Status Provider Status Actionable Final result (11/25/2022 5:41 PM) Reviewed Exam Performed Date and Time 11/25/2022 12:18 PM [facility] Agency DIVISION OF RADIOLOGY [address] ABD/PEL W IVCON (Acc#[id number]) (Order [id number]) Patient Info Patient Name Sex Josie Santos ([id number]) Female 1965 11/25/2022 12:44 PM - Radiology, [place] In Impression IMPRESSION: No metastatic disease in the abdomen and pelvis. Physical Chemistry Teacher: PSCB Transcribe Date/Time: Nov 25 2022 12:23P Dictated by : BLAYNE JONES MD This examination was interpreted and the report reviewed and electronically signed by: BLAYNE JONES MD on Nov 25 2022 12:42PM EST MRI Report MRI BRAIN WO/W IVCON Exam End: 12/07/2022 9:36 AM (Final result) Narrative: * * *Final Report* * * DATE OF EXAM: Dec 07 2022 9:36AM [facility] 0295 - MRI BRAIN WO/W IVCON / PROCEDURE REASON: Glioma (HCC) * * * * Physician Interpretation * * * * EXAMINATION: MRI BRAIN WO/W IVCON HISTORY: Glioma (HCC) TECHNIQUE: Routine brain MRI protocol without and with contrast including diffusion and gradient echo images. Perfusion with gadolinium. MQ: MRBWOW_2 Contrast: 19 mL Dotarem IV COMPARISON: Preoperative MRI brain from 09/25/2022 RESULT: Postop: The prior examination the patient has had a biopsy of the small ptasy hole in the right dorsal lateral parietal bone extending into the right spleen the corpus callosum. Acute Change: There is no evidence of restricted diffusion to suggest an acute infarct. Hemorrhage: There is susceptibility artifact along the course of the biopsy tract. The rounded susceptibility artifact seen in the spleen the corpus callosum on the prior examination has resolved in the interim. Mass Lesion/ Mass Effect: Again noted is stable confluent hyperintensity on T2 and FLAIR throughout the splenium of the corpus callosum. Postcontrast images reveal no abnormal enhancement in this lesion or elsewhere in the brain. There is linear enhancement associated with the biopsy tract which is expected. Perfusion CBV map show normal CBV in the splenium of the corpus callosum. No evidence of leptomeningeal disease. No significant mass effect. Chronic Change: Scattered punctate foci of increased T2 and FLAIR signal are noted in the supratentorial white matter which is a nonspecific finding, but likely represents minimal chronic microvascular ischemia. Parenchyma: No significant volume loss for age. The brain parenchyma is otherwise within normal limits of signal intensity and morphology. Ventricles: Normal caliber and morphology. Skull Base: Hypothalamic and pituitary region are grossly normal. Craniocervical junction is normal. No significant marrow replacement process. Vasculature: Major intracranial arterial structures, and dural venous sinuses show typical flow void, suggesting patency by spin echo criteria. Other: The visualized paranasal sinuses and mastoid air cells are clear. The orbits and extracranial soft tissues are unremarkable. Impression: IMPRESSION: Unchanged appearance of the nonenhancing mildly expansile splenial lesion status post biopsy. No evidence of leptomeningeal disease. No elevated CBV in the spleen the corpus callosum or elsewhere in the brain. Physical Chemistry Teacher: [facility] Transcribe Date/Time: Dec 07 2022 11:17A Dictated by : KRISTIN CLAUDIO MD This examination was interpreted and the report reviewed and electronically signed by: KRISTIN CLAUDIO MD on Dec 07 2022 11:21AM EST Assessment & Plan 57 YO RHF who presents back at the end of May 2022, with acute, language dysfunction, visual field deficit and likely alexia, which occur on the day of a cardiovascular procedure, coronary arterystent placement with a brain MRI that reveals a splenium of the corpus callosum abnormality. A follow up MRI 09/25/22 revealed that the SCC lesion has slightly progressed in size. Her stroke neurologist Dr. Pro felt that this crawley not fit with a stroke and because the neuroradiology reading suggest that this could e a glioma, she referred the patient to our [facility] for evaluation, On 11/02/22, she had a biopsy by Dr. Jovel, neurosurgereon at the [facility]. The pathology is basically non diagnostic. Symptomatically the patient remains with some language dysfunction, mainly word finding difficulty,right visual field deficit, and likely alexia. Pending: - f/u ENS2 - f/u remaining LP studies: ENC2, MNGS, bacterial culture, fungal culture, AFB culture - neuro-ophthalmology eval to define whether visual field deficit matches with her brain lesions vsother cause - scheduled 12/15 after discharge DISCUSSION: With the constellation of signs and symptoms, including, aphasia., mainly word finding difficulty, dyslexia, confusion, and visual field deficit on the right in the context of a lesion in the SC, this suggests highly a disconnecting syndrome. -Alexia: The patient's description of inability it understands written word is likely alexia, whichcan be seen in disconnecting syndromes, and seen in lesion of the SCC. Typically seen in a lesion of the occipital lobes but also seen in lesions of the SCC. 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 There are reports of this manifestation as published by Arelis Petit et al (1) where they described a patient with SCC infarct and HH, In this paper their conclusion is a follows (excerpt/verbatim from the publication: We hypothesized that right homonymous hemianopsia was caused by an interrupted transfer of visual information at the splenium of the CC across the hemispheres. In other words, we hypothesized that the visibility would not be defined only in the unilateral striate cortex, but also in the bilateral cortexes across the hemispheres. Aphasia: According to the literature splenium of the corpus callosum lesions can cause cognitive problems, change in behavior, confusion even seizures, including aphasia as reported in the literature. I think that the constellation of symptom could be explained by the location of the lesion, and thefact that the lesion persists radiologically and clinically, suggest that the lesion has not improved and slightly progressing as reported in the MRI from 09/25/22, when compared to the MRI from 07/03/2022 and 06/08/2022. Regarding the etiology of the lesion: The pathology was not conclusive. The initial working diagnosis because of the acute/subacute presentation and in the context that occurred on the day of a vascular procedure, coronary artery stent, a CVA was considered for which thepatient saw cerebrovascular/stroke neurology Dr. Pro. She had CVA work up. However, because of the MRI from 09/25/22, showed slight progression of the lesion, the differential radiological diagnoses was narrowed to possible glioma. Her stroke neurologist Dr. Pro has deemed that this is not astroke and referred her to the [facility] and had a biopsy by Dr. Feliz on 11/04/22, and as I said the pathology is not diagnotic. Considering the presentation the differential diagnosis is: -STROKE Other possibilities: -Glioma -Unlikely encephalitis in light of the timeline, but an indolent encephalitis can still be possible -Venous infarct (6) -Demyelination - due to MS, unlikely due to age but can be seen, and or other inflammatory 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 entities. -Paraneoplastic syndrome. Differential diagnosis from a publication by AJR: Lipoma Glioma: low grade or high grade Lymphoma Juvenile Pilocytic Astrocytoma Demyelinating Diseases -Multiple Sclerosis Progressive Multifocal Leukoencephalopathy Marchiafava-Bignami Disease - unlikely S she does no drink ETOH in large amounts. Infarction - see above. Arteriovenous Malformations - had a CTA by Dr. Pro and showed no abnormalities. Trauma Susac Syndrome (SS) (From [employer] (excerpt/verbatim). SS is a presumed to be caused by autoimmune endotheliopathy , resulting in microinfarcts of the precapillary arterioles of the brain, retina, and inner ear (cochlea and semicircular canals).[2][3] The exact mechanism is unclear, but pathogenesis does resemble the microinfarction of muscle and skin seen in juvenile dermatomyositis. Susac syndrome (SS)) is a rare condition characterized by the clinical triad of encephalopathy, branch retinal artery occlusion (BRAO), and sensorineural hearing loss. However, all three features may not be present concurrently upon initial presentation. This condition may also be referred as small infarctions of cochlear, retinal, and encephalic tissue (SICRET), microangiopathy with retinopathy, encephalopathy, and deafness (RED- M), and retinocochleocerebral vasculopathy.[1][2] Unlikely that the patient has Susac Syndrome, as she does not meet the clinical triad, however thisis still in the differential. After the biopsy the diagnosis is till elusive, and the differential diagnosis from my perspective remains as above, as I cannot exclude a possible entity for sure. 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 I will refer the patient to se Dr. Carrizales who is also a neurologist. Other colleagues that I think will be valuable for her care would be neuro- immunology to get their input as to a possible neuro immunological explanation for her presentation. Neuro ID input would be also helpful. Of course, o follow will with Dr. Pro and I would welcome her continued input, in light that per pathology there is no evidence of glioma. As her case is set to be presented to Brain Tumor Board today, I will wait for any further commentsfrom neuropathology that could shed a better light to the etiology of this lesion. I will also welcome the multidisciplinary input. In the interim Mrs. Landis should have a short interval MRI to define whether this lesion is progressing or regressing. Her last brain MRI is from . REFERENCES: 1-Barber Zuleta H, Franny H, et al. 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 Cureus 13(11): p67842. doi:10.7759/cureus.09808), 2-Paola-Paola Paul eta al. Clinical features of acute corpus callosum infarction patients. Int J Clin Exp Pathol. 2014; 7(8): 7079-6796. 3-Damari Guerrero. 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 Brain Behav. 2019 Nov;9(11): z60017. 4-Conrado Cook and Holly Ley. 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 BMJ Case Rep. 2014; 2014: [id number]. 5-Fadi Miranda et al. Alexia Without Agraphia: A Rare Entity. Cureus. 2017 Chon; 9(6): e1304. 6-Lewis Sullivan MD; Ruchi Torre MD. Splenium Infarct Due to Cerebral Venous Thrombosis. Arch Neurol. 2007;64(10):1540. 7-Shelton Stevenson et al. Lesions of the Corpus Callosum: MR Imaging and Differential Considerations in Adults and Children. 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 11/17/2022. Recommend to refer her to neuroimmunology for an opinion. -Full spine MRI w and w/o contrast for work up for 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 disease, and or drop metastasis. -CT chest and pelvis (if NEG a PET scan of the brain/full body), she is at risk of lung CA with 40 year H/o smoking -LP with CSF analysis to exclude POS malignant cytology, and or paraneoplastic AB, and or infectious process. 12/09/2022: -issues worsening,gait difficulty, memory and vision. Although her repeat MRI from 12/07/22, shows no change, it is concerning that her symptoms are worsening, with no definite answer. I think that in order to expedite the planned work up and hopefully to get an answer for the patient, I think admitting the patient is what I would recommend. I spoke with Dr. Triston Lozano, neurology staff for primary neurology service, and discussed patient's case. Dr. Lozano, agreed that the patient requires admission to neurology to expedite work up and to elucidate any pathology that may require rather rapid intervention. I explained the above to the patient and family and they agreed. I called admissions, and the patient will be admitted under Dr. Lozano, who has accepted the patient. In addition to the work up and consults as noted below, further work up as Dr. Lozano may deem necessary. The work up will also include LP for CSF analysis. PLAN: 1-Splenium of the corpus callosum lesion, etiology unclear: S/P biopsy with non diagnostic pathology. Admitted to neurology on 12/09/22, discharged 12/15/22, under Dr. Lozano's service, to expedite workup and to elucidate any pathology that may require rather rapid intervention. Work up so far unremarkable. Pending: - f/u ENS2 - f/u on remaining LP studies: ENC2, MNGS, bacterial culture, fungal culture, AFB culture Plan to do an MRI of the brain w and w/o + perfusion in 2 month's time. -Follow up in my neuro-oncology clinic 1-2 days after the MRI if the MRI is done at a different F, or the same day if the MRI is done at . 2-Referral to neuroimmunology for opinion whether the lesion in the SCC is from an autoimmune/immune/paraneoplastic pathology, and recommendations on further work up. Dr. Lozano is a neuro plant technical specialist and was the neurology staff while admitted (12/09-12/15/22) and will see the patient in follow up in his clinic. 3-Referral to Neuro ID for opinion whether the SCC lesion is of infectious etiology, i.e., indolentprocess, and recommendations on further work up. Patient seen by ID while hospitalized (12/09-12/15/22). 4-Referral to neuro-ophthalmology: Was seen by neuro-ophthalmology 12/15/22. 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 5-Follow with Dr. Pro from cerebrovascular/stroke neurology. 6-Follow with her project control manager for her CAD, S/p coronary artery stents. 7-Follow with her PCP for general medical care/coordination of care, Dr. Cool. 8-No to drive a car or any other motorized vehicle, and not to engage in activities that could place her at risk to her and or others of injury is she were to have episodes of confusion. 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 For now, as she had episodes of conduction which have not been clarified yet, also she has a visual field deficit on the right. Her driving privileges to be resumed depending on her progress/entities found. 9- CT chest:11/25/22: 1. No suspicious primary lung malignancy noted. 2. Few scattered small pulmonary nodules measuring less than 5 mm. Comments: If there are risk factors for lung malignancy, a follow-up chest CT exam could be obtained in 12 months NOTE: the patient has risk factor for lung CA she has been smoking tobacco for many yeas. -CT chest/abdomen and pelvis w and w/o contrast No metastatic disease in the abdomen and pelvis. 12/14/22 PET scan: No hypermetabolic lesions seen. PCP to do follow up CT chest, in 6-12 months time. 10-Lumbar MRI 12/10/22 reported as: 1. Mild enhancement of the right S1 cauda equina nerve root and equivocal enhancement of the left S1 cauda equina nerve root. No definite enhancement is identified in the other cauda equina nerve roots. These findings are nonspecific given the relatively limited distribution and the nonenhancing nature of the primary lesion in the corpus callosum. Plan to repeat an MRI of the lumbar spine w and w/o contrast in 2 months time (to be done at the same time of the purvi MR if possible), for close follow up on this finding, follow up after in my clinic, within a week, or the same day of MR done at . In the end the patient and family verbalized understanding of the above, they had questions which Ibelieve I answered to their satisfaction and agreed with these recommendations and had no further questions or concerns for the moment, but I encourage them to call the [facility] with any questions or concerns. I spent a total of 45 minutes on the date of the service which included preparing to see the patient, at least 50% of [id number] patient care, completing clinical documentation, obtaining and/or reviewing separately obtained history, performing a medically appropriate examination, counseling and educating the patient/family/caregiver, ordering medications, tests, or procedures, communicating with other HCPs (not separately reported), independently interpreting results (not separately reported), communicating results to the patient/family/caregiver and care coordination (not separately reported). Codie Soto MD Staff Neuro-Oncologist [facility] [place], [place] CC: CC -Carlos Jovel MD, Neurosurgery, [facility], [facility], [facility] CC: Rad Pro DO, Vascular Neurology, [facility] CC: Dr. Soils Cool DO, PCP, [address] [place] [address] [address] [id number], ; -Triston Lozano MD, Neurology/Neuroimmunology, [facility] -David Rios MD, Neuro-ophthalmology, [facility] -Americo Haney DO, Infectious Disease, [facility] documented in this encounterCincinnati [facility]08-23-2023 Miscellaneous Notes* Telephone Encounter - Lisa Paredes - 12/23/2022 9:25 AM EDT PATIENT INFORMATION Record ID: [id number] Patient Name: [facility]: [facility] [place]: Neurological [place] Attending: Jena [facility] Center: Neurological Confucianism INSTRUCTIONS MA to remind patient of next upcoming appointment date, time, location All Clear All Clear All Clear All Clear SURVEY INFORMATION Medical/Nurse Form Tamper Operator: Lsia Paredes 1. Your discharge instructions are important in guiding you through the recovery process. Is there anything I could help you clarify on your discharge instructions? (Standard Question) No 2. Do you have a follow up appointment related to your hospital stay scheduled within the next 30 days? (Standard Question) Yes MA/SN Notes: 12/24/22 01/12/23 x2 3. Have you had increased redness, swelling, or any drainage from your wound since discharge? (Red Flag Question) No 4. Are you tolerating your pain with your current medication? (Red Flag Question) Yes, I can tolerate my pain 5. Many patients have concerns about their medications once they are home. Do you have any questions about getting or taking your medications? (Standard Question) No 6. Do you have any new or different symptoms? (Standard Question) No documented in this encounterCincinnati [facility]08-18-2023 Miscellaneous Notes* Telephone Encounter - Triston Lozano MD - 12/18/2022 4:52 PM EDT Results for CSF Tourtellote panel cannot be imported into [employer] due technical problems. Results were read by Dr. Malloy IgG Index: 0.54 (0-0.61) IgG Synthesis Rate 1.7 mg/day ref (0-3.0) Triston Lozano MD PhD documented in this encounterCincinnati [facility]08-15-2023 History of Present illness Narrative* David Rios MD - 12/15/2022 3:35 PM EDT Reviewed Epic, chart, labs, imaging studies. Incongruous right homonymous hemianopsia Field loss noted in May 2022 due to stroke. We discussed that the stroke could have occurred inthe left lateral geniculate body. This would account for the relatively normal imaging and Visual field findings. She had been having bradycardia and required cardiac stenting just prior to the vision loss. Taught scanning techniques. Visual acuity is correctable to 20/20 in both eyes. THe field loss is making her unable to use PAL glasses for reading. Recommended OTC +1.50 for near. Her current glasses are working well for distance and midrange. 2. Lesion of splenium corpus callosum This is not causing any Neuro-Ophthalmic pathology at this time. I have confirmed and edited as necessary the relevant ophthalmic history, ROS, and the neuro exam findings as obtained by others. I have seen and examined Josie Landis. I spent a total of 60 minutes on the date of the service which included preparing to see the patient, [id number] patient care, completing clinical documentation, obtaining and/or reviewing separately obtained history, performing a medically appropriate examination, and counseling and educating the patient/family/caregiver. I have discussed the case and the management of this patient's care with the Resident/Fellow, if applicable. I also have reviewed and agree with the assessment and plan as stated above and agree withall of its relevant components.The nature of the patient's eye disease, its relationship to systemic health, and its prognosis have been explained to the patient/family. The treatment options/risks/benefits have been discussed. Questions answered. David Rios MD documented in this encounterCincinnati [facility]08-09-2023 History of Present illness Narrative* Codie Soto MD - 12/09/2022 10:16 AM EDT Images from the original note were not included. [facility] Clinic Visit Follow up. 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 The patient is accompanied by her Marciano (2nd ), and her daughter Beena. Subjective History of Present Illness: 57YOF who has CAD, and has had 4 stents, the 1st 2 were done 4 years ago, and the last one was done in May 2022. On the day of the last coronary artery stent, she had a sudden sensation that something was wrong, as she said she became suddenly dyslexic. On further questioning, she was having what appears to have aphasia in the form of word finding difficulty, as well difficulty reading, she says that whatever she would read she could not understand the witting, and she also felt off mentally, meaning somewhat confused. No define LOC/passing out/nor syncope. Another symptom she noted is that she cannot see out of the right side of her peripheral vision,a dthis has continued like that. She saw her eye doctor she said and is the one who noticed also the visual field deficit ( I do nothave those records for my review). On 06/08/22, she sima to [facility] for the above issues. She saw cerebrovascular/stroke neurologist Dr. Pro and did extensive work up for possible CVA. On 10/21/22, Dr. Pro based on the MRI from that showed alight progression of the lesion, with the concern that this is a glioma referred the patient to our [facility] for evaluation. Dr. Feliz performed a biopsy on 11/04/22. The pathology is non diagnostic for a brain tumor, a glioma, which is the concern from the radiological perspective as the lesion has progressed in size slightly. The pathology is reported as: FINAL DIAGNOSIS A. Brain, right corpus callosum lesion, stereotactic biopsy - Minute focus of atypical cells in a reactive background; - See comment. B. Brain, right corpus callosum lesion, stereotactic biopsy - Gliosis with scattered macrophages Diagnosis Comment The biopsy shows focal hypercellularity at one corner (less than 5% of tissue submitted) with atypical angulated elongated nuclei and fibrillary background suspicious for glioma. Unfortunately this area is only present on the frozen section slide and is cut through on the resubmitted tissue. It is not present in any of the other slides/block submitted. The remainder of the specimen shows white matter with scattered foamy macrophages and gliosis. Part B shows white matter with scattered macrophages and gliosis but does not have the atypical area noted in frozen section. Immunohistochemical stains performed to help with classification show thefollowing (B1): CD68 highlights scattered macrophages; IDH1 R132H negative (wt); ATRX retained; p53 strong nuclear positivity 10%; Ki-67 proliferative index 1%; BRAF V600E negative (wildtype); H3 K27M negative (wt); H3 K27me3 retained; Luxol fast blue focal mild loss; Neurofilament cocktail with focal decreased axons; GMS negative for fungus; Gram negative for bacteria. FISH for EGFR reported separately. Slides also reviewed by Drs. Maria Luisa Leonardo and Jesu Narvaez who agree. As of today, she has persistent, difficulty both findings work, she still has the visual field deficit, which has extended to the lower quadrant as the initial report was that she had a right superior quadrantanopia. Also, she still feels foggy, meaning not very sharp mentally, yet she is still able to perform her ADL's. She is also having poor sleep. She says that she has been taking a multivitamin for many years, and she stopped them the week prior to the last stents, as per doctors' advice. No weight lost. No change in diet No new medications No similar history of the above No known neurological issue/diseases. She reports that she has bipolar disorder. Heide Dumont RN at 11/12/2022 7:44 AM Patient is a 57 y/o female from [place], [place] with PMH CAD (s/p stent placement- on ASA and Plavix), HTN, Asthma Reason for consult: brain lesion Surgery: 11/04/22- Right sided brain biopsy of corpus callosum lesion Pathology: Minute focus of atypical cells in a reactive background; Gliosis with scattered macrophages. EGFR NOT AMPLIFIED CD68 highlights scattered macrophages; IDH1 R132H negative (wt); ATRX retained; p53 strong nuclear positivity 10%; Ki-67 proliferative index 1%; BRAF V600E negative (wildtype); H3 K27M negative (wt); H3 K27me3 retained; Luxol fast blue focal mild loss; Neurofilament cocktail with focal decreased axons; GMS negative for fungus; Gram negative for bacteria. Neurosurgeon Dr Jovel Radiation oncologist: None Cardiovascular neurology_ Dr Pro AED: None Steroids: Decadron 2mg tablet- tapers to 2mg to twice daily without further instructions Treatment: none Pertinent History: per epic review 57 y/o female admitted to [facility] due to confusion and aphasia on 06/08/22. Recent coronary stent placement and stroke work up included CT and MRI Brain which revealed a faint diffusion restriction in the splenium corpus callosum. More prominent FLAIR change in this area. Some FLAIR changes s ubcortical in right (2) and left (1) white matter without diffusion restriction. She was dischargedhome and a repeated MRI on 07/03/22 showed a corpus callosum splenium nonenhancing expansile lesionwith internal cystic/necrotic foci, grossly stable compared with 06/08/2022 She was seen by vascular neurology- Dr Pro on 08/25/22- fper her notes- elt off since June. noted some changes in her speech and driving. 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 Review of CTA head ->normal cerebrovascular circulation. ECHO - No PFO PLan for repeat MRI , [facility]. Repeat MRI done 09/25/22 showed progression of lesion and she was seen by Dr Jovel on 10/27/22 Ather visit she was still having difficulty reading/writing, balance issues, recall issues and had lost peripheral vision on the Right. She was unable to work or drive. Recommendations made for brain bi opsy s/p 11/04/22- Right sided brain biopsy of corpus callosum lesion MRi Brain 09/25/22 Infiltrative process in the splenium the corpus callosum which, in view of the slight interval progression since the prior studies, would be worrisome for a glioma. MRi Brain 07/03/22 Corpus callosum splenium nonenhancing expansile lesion with internal cystic/necrotic foci, grossly stable compared with 06/08/2022. This is of indeterminate etiology, with considerations including sequela of a 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 process (noting additional patchy foci of signal abnormality in the cerebral white matter) versus other inflammatory, post infectious or cytotoxic process. Note that low-grade neoplasm is not excluded, and continued follow-up is recommended. Heide Dumont, RN, BSN [facility] 11/17/2022 INTERIM EVENTS No new symptoms She is joseph to go oveer the Brain tumor Board recommendations. Last Chemo: N/A Current Steroids dose: Start End dexAMETHasone (DECADRON) 2 mg tablet (Discontinued) 100 tablet 0 11/05/2022 11/17/2022 Sig: Take 4 tablets in the morning and in the afternoon for 5 days. Take 3 tablets in the morning and in the afternoon for 5 days. Current dose as of 11/17/22: Then take 2 tablets in the morning and in the afternoon for 5 days.Then take 1 tablet in the morning and afternoon until directed otherwise. Sent to pharmacy as: dexAMETHasone (DECADRON) 2 mg tablet Start November 20: 2 mg BID for 5 days Start November 25: 2 mg once day for 5 days November 30: 1 MG (1/2 Tab) FOR 5 DAYS THEN OFF. Current AED Dose: N/A 12/09/2022: INTERIM EVENTS. She is here to go over the MRI of the brain done on 12/07/22, and CT chest/abd/pelvis. The patient is accompanied by her Marciano (2nd ), and her daughter Beena. -issues worsening,gait difficulty, memory and vision. Although her repeat MRI from 12/07/22, shows no change, it is concerning that her symptoms are worsening, with no definite answer. I think that in order to expedite the planned work up and hopefully to get an answer for the patient, I think admitting the patient is what I would recommend. I spoke with Dr. Triston Lozano, neurology staff for primary neurology service, and discussed patient's case. Dr. Lozano, agreed that the patient requires admission to neurology to expedite work up and to elucidate any pathology that may require rather rapid intervention. I explained the above to the patient and family and they agreed. I called admissions, and the patient will be admitted under Dr. Lozano, who has accepted the patient. In addition to the work up and consults as noted below, further work up as Dr. Lozano may deem necessary. The work up will also include LP for CSF analysis. Therapy Status Data Form Past Medical History: PAST MEDICAL HISTORY Diagnosis Date Asthma due to seasonal allergies 11/02/2022 Coronary artery disease Coronary artery disease involving wiyot coronary artery of wiyot heart without angina pectoris 11/02/2022 Gastroesophageal reflux disease without esophagitis 11/02/2022 Primary hypertension 11/02/2022 Seizures (HCC) 11/02/2022 Stroke (HCC) Past Surgical History: PAST SURGICAL HISTORY Procedure Laterality Date CARDIAC SURG PROCEDURE UNLIST 2018 cardiac stents x 2 CHOLECYSTECTOMY HX LIGATE FALLOPIAN TUBE PAST SURGICAL HISTORY OF 05/2022 cardiac stent x 1 PAST SURGICAL HISTORY OF hiatal hernia repair PAST SURGICAL HISTORY OF partial hysterectomy SHOULDER ARTHROSCOPY/SURGERY Right torn rotator cuff TONSILLECTOMY HX Family History: FAMILY HISTORY Problem Relation Age of Onset Anesthesia Problems No Family History No family H/O neurological conditions No H/O brain tumors in family No H/O 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 diseases in the family She has 2 biological daughters who are healthy. Social History Tobacco Use Smoking status: Some Days Packs/day: 0.30 Years: 40.00 Total pack years: 12.00 Types: Cigarettes Smokeless tobacco: Never Tobacco comments: Trying to quit currently Used to smoke a pack per day on average Substance Use Topics Alcohol use: Never Drug use: Never Allergies: Budesonide-Formoterol, Aspirin, Latex, Penicillins, Adhesive Tape-Silicones, Budesonide, and Formoterol Current Outpatient Medications Medication Sig cetirizine (ZYRTEC) 10 mg tablet Take by mouth. dexAMETHasone (DECADRON) 2 mg tablet Taper Start November 20: 2 mg BID for 5 days; Start November 25: 2 mg once day for 5 days; November 30: 1 MG (1/2 Tab) FOR 5 DAYS THEN OFF. aspirin 81 mg cap Take 81 mg by mouth once daily. clopidogrel (PLAVIX) 75 mg tablet Take 1 tablet by mouth once daily. ondansetron (ZOFRAN) 8 mg tablet Take 1 tablet by mouth every 8 hours as needed for nausea/vomiting. pantoprazole DR (PROTONIX) 40 mg tablet Take 1 tablet by mouth once daily. acetaminophen (TYLENOL) 325 mg tablet 2 tablets by ORAL/FEEDING TUBE route every 4 hours as needed for pain. senna-docusate (SENNA-S) 8.6-50 mg per tablet 1 tablet by ORAL/FEEDING TUBE route twice daily. oxyCODONE IR (ROXICODONE) 5 mg immediate release tablet Take 1 tablet by mouth 6 hours as needed. hydroCHLOROthiazide 12.5 mg tablet Take 12.5 mg by mouth once daily. buPROPion XL (WELLBUTRIN XL) 300 mg 24 hr tablet Take 300 mg by mouth every morning. clonazePAM (KLONOPIN) 0.5 mg tablet TAKE 1 TABLET BY MOUTH TWICE A DAY DIRECTED (Patient not taking: Reported on 10/27/2022) traZODone (DESYREL) 100 mg tablet Take 400 mg by mouth daily at bedtime. topiramate (TOPAMAX) 100 mg tablet TAKE 1 TABLET BY MOUTH TWICE A DAY DIRECTED vilazodone (VIIBRYD) 40 mg tablet Take 40 mg by mouth once daily. losartan (COZAAR) 25 mg tablet Take 25 mg by mouth once daily. metoprolol succinate ER (TOPROL XL) 25 mg 24 hr tablet Take 12.5 mg by mouth once daily. ezetimibe (ZETIA) 10 mg tablet Take 10 mg by mouth once daily. cariprazine (VRAYLAR) 3 mg capsule Take 3 mg by mouth once daily. PRALUENT PEN 75 mg/mL pen albuterol HFA (PROVENTIL HFA, VENTOLIN HFA) 90 mcg/actuation inhaler INHALE 2 (TWO) PUFFS EVERY 4 HOURS NEEDED carBAMazepine (TEGRETOL) 200 mg tablet Take 400 mg by mouth twice daily. sodium chloride 0.9 %, flush, (BD POSIFLUSH) syringe Inject 2-10 mL intravenously as directed. For Echo procedure No current facility-administered medications for this visit. Review of systems: Constitutional: No recent fever or weight loss. Eyes: No history of glaucoma or cataracts. ENMT: No recent ear infection, nasal congestion, mouth sores or sore throat. CV: No history of chest pain, palpitations or leg swelling. Respiratory: No history of SOB, asthma or recent cough. Gastrointestinal: No history of nausea, vomiting, dysphagia or abdominal pain. Genitourinary: No history of hematuria or dysuria. Musculoskeletal: No complaint of arthritis, unstable gait or arm/leg weakness. Psychiatric: No history of hallucinations or depression or anxiety. ROS Neurological: No complaint of headache. No complaint of tinnitus. No complaint of decreased hearing. No complaint of diplopia. No complaints of decreased visual acuity. No complaint of arm/leg numbness. No problem with limb coordination. No complaint of syncope, seizures or disorientation. Objective Physical Exam: BP 117/73 Pulse 73 Temp (Src) 98.4 (Oral) Resp 18 Wt 187 lb 4.8 oz (85.0kg) SpO2 98% MINI-MENTAL STATE EXAMINATION (MMSE) performed 12/09/2022 Make the patient comfortable and establish rapport. Ask questions in the order listed. Total possible score is 30. ORIENTATION 1. What is the (year) (season) (date) (day) (month)? Max score=5 Patient's score=5 2. Where are we? (state) (county) (town or city) (hospital) (floor)? Max score=5 Patient's score=4 REGISTRATION Ask the patient if you may test his/her memory. Then say the names of 3 unrelated objects, clearly and slowly, about one second for each (eg, apple, table, rick). After you have said all 3, ask him/her to repeat them. This first repetition determines the score(0-3), but keep saying them until he/she can repeat all 3, up to 6 trials. Max score=3 Patient's score=3 ATTENTION AND CALCULATION Ask the patient to begin with 100 and count backwards by 7. Stop after 5 subtractions (93, 86, 79, 72, 65). Score the total number of correct answers. If the patient cannot or will not perform the serial 7s task, ask him/her to spell the word WORLD backwards. The score is the number of letters in the correct order (eg, DLROW=5; DLRW=4; DLORW, DLW=3; OW=2; DRLWO=1). Max score=5 Patient's score=4 RECALL Ask the patient to recall the 3 items repeated above (eg, apple, table, rick). Max score=3 Patient's score=2 and 3 LANGUAGE Naming: Show the patient a wristwatch and ask him/her what it is. Repeat for pencil. Max score=2 Patient's score=2 Repetition: Ask the patient to repeat the phrase No ifs, ands, or buts: after you. Max score=1 Patient's score=1 3-Stage Command: Give the patient a piece of blank paper and ask him/her to take a piece of paper in your right hand, fold it in half, put it on the floor. Score 1 point for each part correctly executed. Max score=3 Patient's score=3 Reading: On a blank piece of paper, print the sentence CLOSE YOUR EYES in letters large enough for the patient to see clearly. Ask him/her to read it and do what it says. Score 1 point only if he/sheactually closes his/her eyes. Max score=1 Patient's score=1 Writing: Give the patient a blank piece of paper and ask him/her to write a sentence. Do not dictate a sentence; it is to be written spontaneously. It must contain a subject and verb and be sensible.Correct grammar and punctuation are not necessary. Max score=1 Patient's score=1 Copying: Ask the patient to copy the figure of intersecting pentagons exactly as it is. All 10 angles must be present and 2 must intersect to form a 4-sided figure to score 1 point. Tremor and rotation are ignored. Max score=1 Patient's score=1 MAXIMUM TOTAL SCORE = 30 TOTAL SCORE = 27/30 Suggested guideline for determining the severity of cognitive impairment: Mild: MMSE>21 Moderate: MMSE 10-20 Severe: MMSE<9 Expected decline in MMSE scores in untreated mild to moderate Alzheimer's patient is 2 to 4 points per year. *Adapted from Folstein et al.1 and Kinza and Nabeel2. (c) 1997 [employer] Used withpermission. References: 1. Folstein MF, Pratikstein SE, Perez PA. Mini-Mental State: a practical method for grading the cognitive state of patients for the clinician. J Psychiatr Res. 1975; 12:189-198. 2. JR Kinza, Nabeel BENNETT, Mini-Mental State Examination (MMSE). Psychopharm Bull. 1988;24:689-692. 3. Jonelle JT, Aniceto FJ, Lesley RD, Teja A, Michelle F. Neuropsychological function in Alzheimer's disease: pattern of impairment and rates of progression. Arch Neurol. 1988;45:263-268. 4. Sadi JA, Jae B,Chon S-P, Paul SHEEHAN. Predictors of cognitive and functional progression in patients with probable Alzheimer's disease. Neurology. 1992;42:9478-1613. GENERAL EXAM: General appearance: Well appearing, alert, in no acute distress Skin: Skin color, texture, turgor normal Oropharynx: No thrush noted. Lungs: Lungs clear to auscultation. No wheezing, rhonchi, rales Heart: RRR without murmur, gallop, or rubs. No ectopy Abdomen: Normal abdominal exam, Abdomen soft, non-tender. Bowel sounds normal. Extremities: No deformities, skin discoloration, clubbing or cyanosis. Good capillary refill, no edema to BLE. Donna's sign negative. No pain to palpation. NEUROLOGICAL EXAM: Higher integrative functions: Oriented to person, place & time. See MMSE above. Attention Span and Concentration: Good. Language: Accurate naming of objects. Good comprehension. Fund of Knowledge: Good. Dysarthria Stuttering No definite language dysfunction. 2nd CN: Right homonymous hemianopsia 3rd,4th,6th CN: Pupils equal, round, react to light, full extraocular movements. 5th CN: No decrease in facial sensation 7th CN: Facial muscles symmetric and strong. 8th CN: Hears finger rub well bilaterally. 9th CN: Gag reflex not tested 10th CN: Spontaneous palate movement, full and symmetric. 11th CN: Full strength in shoulder shrug. 12th CN: Tongue protrusion full and midline. Sensation: No decrease in sensation in upper or lower limbs to touch. Musculoskeletal: Gait steady. Tandem walk normal. Romberg negative. Motor: 5/5 RUE/RLE; 5/5 LUE/LLENormal muscle tone without atrophy in all limbs. Coordination: Rapid alternating movements LUE intact; RUE intact Reflexes: 1-2+ ALL limbs. Plantar response down going. Karnofsky performance status: 80 - Normal activity with effort, some signs or symptoms of disease. ECOG performance status: 1 - Restricted in physically strenuous activity but ambulatory and able tocarry out work of a light or sedentary nature, e.g., light house work or office work. PHQ 2 and 9 Total Scores 11/24/2022 PHQ-2 Score 4 PHQ-9 Score 15 Labs: CBC Latest Ref Rng & Units 11/02/2022 11/20/2022 WBC 3.70 - 11.00 k/uL 5.14 9.33 RBC 3.90 - 5.20 m/uL 4.62 4.40 HEMOGLOBIN 11.5 - 15.5 g/dL 13.9 12.7 HEMATOCRIT 36.0 - 46.0 % 40.4 38.7 MCV 80.0 - 100.0 fL 87.4 88.0 MCH 26.0 - 34.0 pg 30.1 28.9 MCHC 30.5 - 36.0 g/dL 34.4 32.8 RDW-CV 11.5 - 15.0 % 13.4 13.9 PLATELETS 150 - 400 k/uL 206 202 MPV 9.0 - 12.7 fL 9.1 8.5(L) BASO% % 0.4 0.4 ABS NEUT (ANC) 1.45 - 7.50 k/uL 2.70 7.67(H) ABS LYMPH 1.00 - 4.00 k/uL 1.82 1.08 ABS MONO <0.87 k/uL 0.52 0.47 ABS EOSIN <0.46 k/uL 0.06 <0.03 ABS BASO <0.11 k/uL <0.03 0.04 NRBC /100 WBC 0.0 0.0 CMP Latest Ref Rng & Units 11/02/2022 11/05/2022 11/20/2022 SODIUM 136 - 144 mmol/L 129(L) 135(L) 136 POTASSIUM 3.7 - 5.1 mmol/L 3.9 3.6(L) 3.4(L) CHLORIDE 97 - 105 mmol/L 93(L) 102 104 CO2 22 - 30 mmol/L 27 25 22 GLUCOSE 74 - 99 mg/dL 100(H) 100(H) 102(H) BUN 7 - 21 mg/dL 4(L) 7 12 CREATININE 0.58 - 0.96 mg/dL 0.93 0.86 0.88 EGFR >=60 mL/min/1.73m 73 80 78 PROTEIN, TOTAL 6.3 - 8.0 g/dL - - 6.2(L) ALBUMIN 3.9 - 4.9 g/dL - - 4.1 CALCIUM, TOTAL 8.5 - 10.2 mg/dL 9.5 9.0 8.9 BILIRUBIN, TOTAL 0.2 - 1.3 mg/dL - - 0.3 AST 13 - 35 U/L - - 14 ALT 7 - 38 U/L - - 29 ALKALINE PHOSPHATASE 34 - 123 U/L - - 81 Final Pathology: \\\ SURGICAL PATHOLOGY: [id number] Order: [id number] Collected 11/04/2022 11:13 AM Status: Final result Visible to patient: No (scheduled for 11/14/2022 1:09 PM) Dx: Glioma (HCC) 0 Result Notes Component FINAL DIAGNOSIS A. Brain, right corpus callosum lesion, stereotactic biopsy - Minute focus of atypical cells in a reactive background; - See comment. B. Brain, right corpus callosum lesion, stereotactic biopsy - Gliosis with scattered macrophages. Diagnosis Comment The biopsy shows focal hypercellularity at one corner (less than 5% of tissue submitted) with atypical angulated elongated nuclei and fibrillary background suspicious for glioma. Unfortunately this area is only present on the frozen section slide and is cut through on the resubmitted tissue. It is not present in any of the other slides/block submitted. The remainder of the specimen shows white matter with scattered foamy macrophages and gliosis. Part B shows white matter with scattered macrophages and gliosis but does not have the atypical area noted in frozen section. Immunohistochemical stains performed to help with classification show thefollowing (B1): CD68 highlights scattered macrophages; IDH1 R132H negative (wt); ATRX retained; p53 strong nuclear positivity 10%; Ki-67 proliferative index 1%; BRAF V600E negative (wildtype); H3 K27M negative (wt); H3 K27me3 retained; Luxol fast blue focal mild loss; Neurofilament cocktail with focal decreased axons; GMS negative for fungus; Gram negative for bacteria. FISH for EGFR reported separately. Slides also reviewed by Drs. Maria Luisa Leonardo and Jesu Narvaez who agree. Laboratory Developed Test (LDT) Disclaimer: Performance characteristics of immunohistochemical, immunofluorescent and chromogenic in-situ hybridization tests have been determined by the performing laboratory within [facility] s [facility] [place] ([facility], [facility], [facility], [facility], [facility], or [facility]) in a manner consistent with CLIA requirements. One or more of these tests have not been cleared or approved by the FDA. [facility] is regulated under CLIA as qualified to perform high-complexity testing. These tests are used for clinical purposes. They should not be regarded as investigational or for research. Positive and negative controls stain appropriately. Gross Description A. BRAIN BIOPSY Received fresh for intraoperative evaluation labeled as right corpus callosum lesion is a whitishoval piece of tissue measuring 5 x 4 x 0.2 cm. Half of the tissue is submitted for frozen section evaluation in FSA 1. The rest of the tissue is submitted for permanent in A2. Gross examination performed at [facility], [address] [place] [address], [place] [address] 11/04/2022 B. BRAIN BIOPSY Received fresh labeled right corpus callosum lesion are multiple fragments of white-goodson tissue aggregating to 0.6 x 0.5 x 0.2 cm. The specimen is submitted entirely in cassette B1. Gross examination performed at [place] [id number] JXM/DANIELE 11/04/22 12:21 PM Intraoperative Diagnosis A. 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 (Dr. Narvaez). Intraoperative diagnosis performed at [place] [id number] 11/04/2022 Clinical History Pre-op diagnosis: Glioma (HCC) [C71.9] Performing Lab Diagnostic interpretation performed at [facility], [address] [place], [place] [id number] CLIA# [id number] Dross Skimmer: Jasen Rivera M.D. Resulting Agency [facility] Specimen Collected: 11/04/22 11:13 AM EDT Last Resulted: 11/09/22 1:09 PM EDT Order Details View Encounter Lab and Collection Details Routing Result History View All Conversations on this Encounter Scans on Order [id number] Document on 11/09/2022 1:09 PM by Anusha Thomas MD Result Care Coordination Patient Communication 11/14/2022 1:09 PM Release Now Not seen Back to Top FISH FOR EGFR: [id number] Order: [id number] - Reflex for Order [id number] Collected 11/04/2022 11:22 AM Status: Final result Visible to patient: Yes (seen) Dx: Glioma (HCC) 0 Result Notes Component FISH FOR EGFR FISH for EGFR Laboratory Accession Number: [id number] Case: [id number] Block: B1 Sample Type: FFPET Sample Description: BRAIN BIOPSY, RIGHT CORPUS CALLOSUM LESION Received Date: 11/06/2022 RESULTS: EGFR NOT AMPLIFIED Number of nuclei scored: 40 INTERPRETATION: Negative for amplification of the EGFR gene. Clinical and pathological correlation is recommended. The following FISH results were obtained: EGFR: 1.78 CEP7: 2.15 EGFR/CEP7 ratio: 0.83 (Reference Range: Amplified >2.00) COMMENT: A combination of genetic signature and histology stratifies lower- grade gliomas better than histology alone. IDH-wildtype infiltrating or diffuse astrocytomas with EGFR amplification are predicted to follow an aggressive clinical course resembling that of IDH-wildtype glioblastoma. Reference: Néstor JACOME et al. cIMPACT-NOW update 3: recommended diagnostic criteria for Diffuse astrocytic glioma, IDH- wildtype, with molecular features of glioblastoma, WHO grade IV. Acta Neuropathol. 2018 Nov;136(5):805-810. METHODOLOGY: Amplification of the Epidermal Growth Factor Receptor (EGFR) gene was evaluated with interphase fluorescence in situ hybridization (FISH) on formalin-fixed paraffin embedded tissue sections using the LSI EGFR (7p11.2) and chromosome 7 centromere (CEP 7) probes ([employer], [place], [place]). The slides were scored manually. LIMITATIONS: This test will not identify all rearrangements involving EGFR. Rare, cryptic abnormalities may be below the resolution of the assay, or may otherwise be undetected. Specimen size, quality or representativeness can affect the quality of the result. This assay has been validated for tissues fixed with 10% neutral buffered formalin. Decalcification agents and fixation agents containing heavy metals, e.g. B5, or harsh acid or base components (e.g. Bouin's solution) can adversely impact assay performance. DISCLAIMER: This test was developed and its performance characteristics determined by the [facility]'s [facility] [place] ([facility]). It has not been cleared or approved by the FDA. [facility] is regulated under CLIA as qualified to perform high- complexity testing. This test is used for clinical purposes. It should not be regarded as investigational or for research. Interpretation performed at [facility], [address] [place], [place] [id number]. CLIA Number: [id number] As reviewed by Mayra Louis MD, PhD Resulting Agency [facility] Specimen Collected: 11/04/22 11:22 AM EDT Last Resulted: 11/09/22 3:26 PM EDT Order Details View Encounter Lab and Collection Details Routing Result History View All Conversations on this Encounter Result Care Coordination Patient Communication Add Comments Seen Back to Top Specimen Collection Information ID Source Type Collected By Time Frozen A BRAIN BIOPSY Tissue Carlos Jovel MD 11/04/22 1113 Yes Description: right corpus callosum lesion B BRAIN BIOPSY Tissue Carlos Jovel MD 11/04/22 1122 No Description: right corpus callosum lesion Additional Information Diagnosis codes: Glioma (HCC) [C71.9] Comments: Pre-op diagnosis: Glioma (HCC) [C71.9] Scanned Documents Result Information Status: Final result (Resulted: 11/09/2022 1:09 PM) Provider Status: Open Questions Order Question Answer Source of specimen(s): Clinical History SURGICAL PATHOLOGY (Order [id number]) FISH FOR EGFR (Order [id number]) - Reflex for Order [id number] Patient Release Status: This result is scheduled for release on 11/14/2022 1:09 PM. Routing History Priority Sent On From To Message Type 11/09/2022 3:26 PM Lab, Background User Anusha Thomas MD Results 11/09/2022 1:09 PM Lab, Background User Carlos Jovel MD Results 11/09/2022 1:09 PM Lab, Background User Triston Guy MD Results View Smartlink Info SURGICAL PATHOLOGY (Order #[id number]) on 11/04/22 CAP/CLIA/Joint Commission Regulatory Result Report SURGICAL PATHOLOGY (Order #[id number]) on 11/04/22 SURGICAL PATHOLOGY: Patient Communication 11/14/2022 1:09 PM Release Now Not seen Imaging: Results CT CHEST W IVCON (Acc#[id number]) (Order [id number]) Patient Info Patient Name Sex Josie Santos ([id number]) Female 1965 Imaging Findings Finding Acuity Linked Recommendation Recommendation Status Finding Status Incidental Reviewed 11/25/2022 5:41 PM - Radiology, [place] In Component Results Component Performing Lab Radiology Result (Actionable) (Final) CCRAD ACTIONABLE Comment: This report contains an incidental or actionable finding. This finding may be a new finding separate from the reason your provider ordered the imaging test or it may be an already known finding that needs additional or continued follow-up. Because of this incidental or actionable finding, you may need another test (imaging or a different type of test). Please contact your provider for the next steps. Impression IMPRESSION: 1. No suspicious primary lung malignancy noted. 2. Few scattered small pulmonary nodules measuring less than 5 mm. Incidental Finding: Follow-up Acuity: Incidental Finding: Solid: <6 mm (solitary or multiple) Routing Code: N/A Recommendation: No imaging follow-up is recommended Time Frame: N/A Comments: If there are risk factors for lung malignancy, a follow-up chest CT exam could be obtained in 12 months Physical Chemistry Teacher: RHIANNON Transcribe Date/Time: Nov 25 2022 5:31P Dictated by : TOMAS DEVINE MD This examination was interpreted and the report reviewed and electronically signed by: TOMAS DEVINE MD on Nov 25 2022 5:38PM EST Results-Findings * * *Final Report* * * DATE OF EXAM: Nov 25 2022 12:18PM [facility] 0539 - CT CHEST W IVCON / PROCEDURE REASON: Lesion of brain * * * * Physician Interpretation * * * * EXAMINATION: CHEST CT WITH CONTRAST CLINICAL HISTORY: Brain lesion. Evaluate for occult malignancy. Technique: Spiral CT acquisition of the chest from the thoracic inlet to the upper abdomen following IV contrast. MQ: [id number]_6 Contrast: 100 mL Omnipaque [address] Radiation dose: Integrated Dose-length product (DLP) for this visit = 840 mGy*cm CT Dose Reduction Employed: Automated exposure control(AEC) and iterative recon Comparison: No relevant prior studies available. RESULT: Limitations: None. Lines, tubes, and devices: None Lung parenchyma, pleural space and airways: Lungs are clear of focal consolidation. Few small noncalcified pulmonary nodules are identified. For reference, 3 mm nodule in the posterior RIGHT lower lobe (image 143), 3 mm nodule in the medial RIGHT lower lobe (image 121), 3 mm nodule in the lateral RIGHT upper lobe (image 46) and 2 mm nodules in the lateral LEFT lower lobe (image 100) and LEFT upper lobe (image 53). A calcified granuloma is identified in the anterior RIGHT upper lobe. Mild diffuse bronchial wall thickening is noted. There is mild mosaic attenuation.. Streaky linear bands of atelectasis are present in both lungs. There is mild elevation of the LEFT hemidiaphragm. Minimal biapical scarring is present. There is no pleural effusion. The trachea and central airways appear patent, devoid of endobronchial lesion. Lower neck, lymph nodes, and mediastinum: No obvious abnormality in the imaged thyroid gland. A borderline enlarged 8 mm LEFT hilar lymph node is identified (image 90). There are calcified thoracic lymph nodes suggestive of remote granulomatous disease. The esophagus is mildly patulous. Heart, pericardium, and thoracic vessels: The cardiac chambers are normal in size. There is no pericardial effusion or thickening. The main pulmonary artery is normal in calibre. The thoracic aorta is normal in calibre. The arch branching pattern is normal. Scattered coronary artery calcifications are noted, although the study is not optimized for coronary assessment. Bones and soft tissues: Chest wall soft tissues are unremarkable. The vertebral body heights appear symmetric and well-maintained. Upper abdomen: The concurrently performed CT abdomen and pelvis will be reported separately. Pediatric Dental Assistant (topogram) images: No additional findings. Result History CT CHEST W IVCON (Order #[id number]) on 11/25/2022 - Order Result History Report Result Information Status Provider Status Actionable Final result (11/25/2022 5:41 PM) Reviewed Exam Performed Date and Time 11/25/2022 12:18 PM [facility] DIVISION OF RADIOLOGY [address] ABD/PEL W IVCON (Acc#[id number]) (Order [id number]) Patient Info Patient Name Sex Josie Mcknight ([id number]) Female 1965 11/25/2022 12:44 PM - Radiology, Oru In Impression IMPRESSION: No metastatic disease in the abdomen and pelvis. Physical Chemistry Teacher: PSCB Transcribe Date/Time: Nov 25 2022 12:23P Dictated by : BLAYNE JONES MD This examination was interpreted and the report reviewed and electronically signed by: BLAYNE JONES MD on Nov 25 2022 12:42PM EST MRI Report MRI BRAIN WO/W IVCON Exam End: 12/07/2022 9:36 AM (Final result) Narrative: * * *Final Report* * * DATE OF EXAM: Dec 07 2022 9:36AM [facility] 0295 - MRI BRAIN WO/W IVCON / PROCEDURE REASON: Glioma (HCC) * * * * Physician Interpretation * * * * EXAMINATION: MRI BRAIN WO/W IVCON HISTORY: Glioma (HCC) TECHNIQUE: Routine brain MRI protocol without and with contrast including diffusion and gradient echo images. Perfusion with gadolinium. MQ: [id number] Contrast: 19 mL Dotarem IV COMPARISON: Preoperative MRI brain from 09/25/2022 RESULT: Postop: The prior examination the patient has had a biopsy of the small patsy hole in the right dorsal lateral parietal bone extending into the right spleen the corpus callosum. Acute Change: There is no evidence of restricted diffusion to suggest an acute infarct. Hemorrhage: There is susceptibility artifact along the course of the biopsy tract. The rounded susceptibility artifact seen in the spleen the corpus callosum on the prior examination has resolved in the interim. Mass Lesion/ Mass Effect: Again noted is stable confluent hyperintensity on T2 and FLAIR throughout the splenium of the corpus callosum. Postcontrast images reveal no abnormal enhancement in this lesion or elsewhere in the brain. There is linear enhancement associated with the biopsy tract which is expected. Perfusion CBV map show normal CBV in the splenium of the corpus callosum. No evidence of leptomeningeal disease. No significant mass effect. Chronic Change: Scattered punctate foci of increased T2 and FLAIR signal are noted in the supratentorial white matter which is a nonspecific finding, but likely represents minimal chronic microvascular ischemia. Parenchyma: No significant volume loss for age. The brain parenchyma is otherwise within normal limits of signal intensity and morphology. Ventricles: Normal caliber and morphology. Skull Base: Hypothalamic and pituitary region are grossly normal. Craniocervical junction is normal. No significant marrow replacement process. Vasculature: Major intracranial arterial structures, and dural venous sinuses show typical flow void, suggesting patency by spin echo criteria. Other: The visualized paranasal sinuses and mastoid air cells are clear. The orbits and extracranial soft tissues are unremarkable. Impression: IMPRESSION: Unchanged appearance of the nonenhancing mildly expansile splenial lesion status post biopsy. No evidence of leptomeningeal disease. No elevated CBV in the spleen the corpus callosum or elsewhere in the brain. Physical Chemistry Teacher: RHIANNON Transcribe Date/Time: Dec 07 2022 11:17A Dictated by : KRISTNI CLAUDIO MD This examination was interpreted and the report reviewed and electronically signed by: KRISTIN CLAUDIO MD on Dec 07 2022 11:21AM EST Assessment & Plan 57 YO F who presents back at the end of May 2022, with acute, language dysfunction, visual field deficit and likely alexia, which occur on the day of a cardiovascular procedure, coronary arterystent placement with a brain MRI that reveals a splenium of the corpus callosum abnormality. A follow up MRI 09/25/22 revealed that the SCC lesion has slightly progressed in size. Her stroke neurologist Dr. Pro felt that this crawley not fit with a stroke and because the neuroradiology reading suggest that this could e a glioma, she referred the patient to our [facility] [place] for evaluation, On 11/02/22, she had a biopsy by Dr. Jovel, neurosurgereon at the [facility]. The pathology is basically non diagnostic. Symptomatically the patient remains with some language dysfunction, mainly word finding difficulty,right visual field deficit, and likely alexia. DISCUSSION: With the constellation of signs and symptoms, including, aphasia., mainly word finding difficulty, dyslexia, confusion, and visual field deficit on the right in the context of a lesion in the SC, this suggests highly a disconnecting syndrome. -Alexia: The patient's description of inability it understands written word is likely alexia, whichcan be seen in disconnecting syndromes, and seen in lesion of the SCC. Typically seen in a lesion of the occipital lobes but also seen in lesions of the SCC. 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 There are reports of this manifestation as published by Arelis Petit et al (1) where they described a patient with SCC infarct and HH, In this paper their conclusion is a follows (excerpt/verbatim from the publication: We hypothesized that right homonymous hemianopsia was caused by an interrupted transfer of visual information at the splenium of the CC across the hemispheres. In other words, we hypothesized that the visibility would not be defined only in the unilateral striate cortex, but also in the bilateral cortexes across the hemispheres. Aphasia: According to the literature splenium of the corpus callosum lesions can cause cognitive problems, change in behavior, confusion even seizures, including aphasia as reported in the literature. I think that the constellation of symptom could be explained by the location of the lesion, and thefact that the lesion persists radiologically and clinically, suggest that the lesion has not improved and slightly progressing as reported in the MRI from 09/25/22, when compared to the MRI from 07/03/2022 and 06/08/2022. Regarding the etiology of the lesion: The pathology was not conclusive. The initial working diagnosis because of the acute/subacute presentation and in the context that occurred on the day of a vascular procedure, coronary artery stent, a CVA was considered for which thepatient saw cerebrovascular/stroke neurology Dr. Pro. She had CVA work up. However, because of the MRI from 09/25/22, showed slight progression of the lesion, the differential radiological diagnoses was narrowed to possible glioma. Her stroke neurologist Dr. Pro has deemed that this is not astroke and referred her to the [facility] [place] and had a biopsy by Dr. Feliz on 11/04/22, and as I said the pathology is not diagnotic. Considering the presentation the differential diagnosis is: -STROKE Other possibilities: -Glioma -Unlikely encephalitis in light of the timeline, but an indolent encephalitis can still be possible -Venous infarct (6) -Demyelination - due to MS, unlikely due to age but can be seen, and or other inflammatory 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 entities. -Paraneoplastic syndrome. Differential diagnosis from a publication by AJR: Lipoma Glioma: low grade or high grade Lymphoma Juvenile Pilocytic Astrocytoma Demyelinating Diseases -Multiple Sclerosis Progressive Multifocal Leukoencephalopathy Marchiafava-Bignami Disease - unlikely S she does no drink ETOH in large amounts. Infarction - see above. Arteriovenous Malformations - had a CTA by Dr. Pro and showed no abnormalities. Trauma Susac Syndrome (SS) (From [employer] (excerpt/verbatim). SS is a presumed to be caused by autoimmune endotheliopathy , resulting in microinfarcts of the precapillary arterioles of the brain, retina, and inner ear (cochlea and semicircular canals).[2][3] The exact mechanism is unclear, but pathogenesis does resemble the microinfarction of muscle and skin seen in juvenile dermatomyositis. Susac syndrome (SS)) is a rare condition characterized by the clinical triad of encephalopathy, branch retinal artery occlusion (BRAO), and sensorineural hearing loss. However, all three features may not be present concurrently upon initial presentation. This condition may also be referred as small infarctions of cochlear, retinal, and encephalic tissue (SICRET), microangiopathy with retinopathy, encephalopathy, and deafness (RED- M), and retinocochleocerebral vasculopathy.[1][2] Unlikely that the patient has Susac Syndrome, as she does not meet the clinical triad, however thisis still in the differential. After the biopsy the diagnosis is till elusive, and the differential diagnosis from my perspective remains as above, as I cannot exclude a possible entity for sure. 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 I will refer the patient to se Dr. Carrizales who is also a neurologist. Other colleagues that I think will be valuable for her care would be neuro- immunology to get their input as to a possible neuro immunological explanation for her presentation. Neuro ID input would be also helpful. Of course, o follow will with Dr. Pro and I would welcome her continued input, in light that per pathology there is no evidence of glioma. As her case is set to be presented to Brain Tumor Board today, I will wait for any further commentsfrom neuropathology that could shed a better light to the etiology of this lesion. I will also welcome the multidisciplinary input. In the interim Mrs. Landis should have a short interval MRI to define whether this lesion is progressing or regressing. Her last brain MRI is from . REFERENCES: 1-Marisabel Salazar, Barber H, Franny H, et al. 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 Cureus 13(11): g48210. doi:10.7759/cureus.94334), 2-Graham Paul eta al. Clinical features of acute corpus callosum infarction patients. Int J Clin Exp Pathol. 2014; 7(8): 9922-0517. 3-Damari Guerrero. 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 Brain Behav. 2019 Nov;9(11): d75943. 4-Conrado Cook and Holly Ley. 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 BMJ Case Rep. 2014; 2014: [id number]. 5-Fadi Miranda et al. Alexia Without Agraphia: A Rare Entity. Cureus. 2017 Chon; 9(6): e1304. 6-Lewis Sullivan MD; Ruchi Torre MD. Splenium Infarct Due to Cerebral Venous Thrombosis. Arch Neurol. 2007;64(10):1540. 7-Shelton Stevenson et al. Lesions of the Corpus Callosum: MR Imaging and Differential Considerations in Adults and Children. 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 11/17/2022. Recommend to refer her to neuroimmunology for an opinion. -Full spine MRI w and w/o contrast for work up for 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 disease, and or drop metastasis. -CT chest and pelvis (if NEG a PET scan of the brain/full body), she is at risk of lung CA with 40 year H/o smoking -LP with CSF analysis to exclude POS malignant cytology, and or paraneoplastic AB, and or infectious process. 12/09/2022: -issues worsening,gait difficulty, memory and vision. Although her repeat MRI from 12/07/22, shows no change, it is concerning that her symptoms are worsening, with no definite answer. I think that in order to expedite the planned work up and hopefully to get an answer for the patient, I think admitting the patient is what I would recommend. I spoke with Dr. rTiston Lozano, neurology staff for primary neurology service, and discussed patient's case. Dr. Lozano, agreed that the patient requires admission to neurology to expedite work up and to elucidate any pathology that may require rather rapid intervention. I explained the above to the patient and family and they agreed. I called admissions, and the patient will be admitted under Dr. Lozano, who has accepted the patient. In addition to the work up and consults as noted below, further work up as Dr. Lozano may deem necessary. The work up will also include LP for CSF analysis. PLAN: Admission to neurology today 12/09/22, under Dr. Lozano's service, to expedite work up and to elucidate any pathology that may require rather rapid intervention. 1-Splenium of the corpus callosum lesion, etiology unclear: S/P biopsy with non diagnostic pathology. -Full spine MRI (cervical/thoracic/lumbar regions) w and w/o contrast. To be done in the next 1-3 weeks or the soonest. Reason: work up for 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 disease, and or drop metastasis. -Note: if CT's NEG will order a PET CT scan of the body/brain, looking for a primary CA, which could cause a paraneoplastic syndrome. 2-Follow up's: -1-2 weeks after discharge from neurology Inpatient service with Dr. Lozano. 3-Referral to neuroimmunology for opinion whether the lesion in the SCC is from an autoimmune/immune/paraneoplastic pathology, and recommendations on further work up. 4-Referral to Neuro ID for opinion whether the SCC lesion is of infectious etiology, i.e., indolentprocess, and recommendations on further work up. 5-Lumbar puncture by Interventional radiology - To be done after spine MRI. To obtain enough fluid at least 25 CC for multiple tests, and to save CSF for future tests. -Note the patient is to be on Plavix and aspirin for her CAD, S/p coronary artery stents. Stop antiplatelets per interventional radiology protocol, and if Ok with her project control manager. 6-CSF orders entered. -Add other orders per neuroimmunology and Neuro ID recommendations. 7-Referral to neuro-ophthalmology: to define whether her visual field deficit indeed matches with her brain lesions in the SCC, or whether there could be other possibility for her visual field deficit, in correlation with her other symptoms. I will refer the patient to se Dr. Joaquín Carrizales who is also a neurologist. -Referral to General Ophthalmology: I will refer her to see general ophthalmology for an evaluation as my understanding is that appointment for neuro-ophthalmology may take long. The patient needs a baseline full exam. 8--Follow with Dr. Pro from cerebrovascular/stroke neurology 9-Follow with her project control manager for her CAD, S/p coronary artery stents 10-Follow with her PCP for general medical care/coordination of care, Dr. Cool. 11-No to drive a car or any other motorized vehicle, and not to engage in activities that could place her at risk to her and or others of injury is she were to have episodes of confusion. 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 For now, as she had episodes of conduction which have not been clarified yet, also she has a visual field deficit on the right. Her driving privileges to be resumed depending on her progress/entities found. 12- CT chest:11/25/22: 1. No suspicious primary lung malignancy noted. 2. Few scattered small pulmonary nodules measuring less than 5 mm. Comments: If there are risk factors for lung malignancy, a follow-up chest CT exam could be obtained in 12 months NOTE: the patient has risk factor for lung CA she has been smoking tobacco for many yeas. PCP tfo do follow up CT chest, in 6-12 months time. -CT chest/abdomen and pelvis w and w/o contrast No metastatic disease in the abdomen and pelvis. 13. Blood test: orders entered. 14-Admission to neurology today 12/09/22, under Dr. Lozano's service, to expedite work up and to elucidate any pathology that may require rather rapid intervention. ORDERS: CONSULT TO INFECTIOUS DISEASES NEURO ID Routine, Dx: 1. Brain mass 2. Alexia 3. Lesion of brain 4. Speech disturbance, unspecified type 5. Visual field defect 6. Confusion CONSULT TO NEUROLOGY NEURO IMMUNOLOGY Routine, Dx: 1. Brain mass 2. Alexia 3. Lesion of brain 4. Speech disturbance, unspecified type 5. Visual field defect 6. Confusion CONSULT TO OPHTHALMOLOGY GENERAL JOSE, Dx: 1. Brain mass 2. Alexia 3. Lesion of brain 4. Speech disturbance, unspecified type 5. Visual field defect 6. Confusion CONSULT TO OPHTHALMOLOGY NEURO-OPHTHALMOLOGY Routine, Dx: 1. Brain mass 2. Alexia 3. Lesion of brain 4. Speech disturbance, unspecified type 5. Visual field defect 6. Confusion In the end the patient and family verbalized understanding of the above, they had questions which Madhavi I answered to their satisfaction and agreed with these recommendations and had no further questions or concerns for the moment, but I encourage them to call the [facility] with any questions or concerns. I spent a total of 45 minutes on the date of the service which included preparing to see the patient, at least 50% of pyzy-nr-oyde patient care, completing clinical documentation, obtaining and/or reviewing separately obtained history, performing a medically appropriate examination, counseling and educating the patient/family/caregiver, ordering medications, tests, or procedures, communicating with other HCPs (not separately reported), independently interpreting results (not separately reported), communicating results to the patient/family/caregiver and care coordination (not separately reported). Codie Soto MD Staff Neuro-Oncologist [facility] [place], [place] CC: CC -Carlos Jovel MD, Neurosurgery, [facility], [facility], [facility] CC: Rad Pro, DO\, Vascular Neurology, [facility] CC: Dr. Solis Cool, DO [address] [facility] [address] * Jenni Strong MA - 12/09/2022 10:04 AM EDT y documented in this encounterCinc[facility] Nurse Note* Jenni Strong MA - 12/09/2022 10:06 AM EDT Additional intake questions: Has the patient had fever, nausea, vomiting, diarrhea, constipation, fatigue for > 1 week? Yes, fatigue and Provider Notified Does the patient have a decreased appetite? No Does patient want to see a Bundle Breaker? No (yes to any of above refer patient to schedulers for dietitian appointment) ) Does patient have any new or increased numbness or tingling of extremities? No Is patient interested in fertility information? No Does patient need any prescription refills? No Does patient have an advanced directive in place? No, Patient referred to Resource Center documented in this encounterCinc[facility]08-07-2023 History of Present illness Narrative* Leonela Cary RN - 12/07/2022 8:30 AM EDT Radiology Service Progress Note DATE OF SERVICE: December 07, 2022 TIME: 8:36 AM PATIENT WEIGHT: 190 LBS PATIENT IDENTITY VERIFICATION COMPLETED USING TWO (2) STANDARD IDENTIFIERS: Name and Date of confirmed by patient verbally. FALL SCREENING: Has the patient had 2 falls in the last year or 1 fall with injury or currently using an Ambulatory Assistive Device (Walker, Cane, Wheelchair, Crutches, etc.)? No PATIENT GENDER DATA: Female. status: : No status: NO. ALLERGIES: Reviewed and unchanged CONTRAST ALLERGY: No EXAM: MRI - CONTRAST TYPE: GROUP II IV SITE: Ambulatory: A peripheral IV was started in the Left antecubital site with a Angio cath: 22gauge. and A Saline lock was inserted per protocol IV SITE APPEARANCE: Clean,Dry and Intact SIGNATURE: Leonela Cary RN PATIENT NAME: Josie Landis DATE: December 07, 2022 TIME: 8:36 AM documented in this encounterCincinnati [facility]08-07-2023 Miscellaneous Notes* Result Encounter Note - Codie Soto MD - 12/07/2022 8:30 AM EDT I have reviewed this test results, MRI brain 12/07/22, and I will go over the results with the patient at the upcoming appointment. Codie Soto MD documented in this encounterCincinnati [facility]07-28-2023 History of Present illness Narrative* Rad Pro DO - 11/27/2022 12:37 PM EDT [facility] Established Visit Consultation is requested by: No referring provider defined for this encounter. PCP: Dr. Solis Cool DO [address] [facility] [id number] [facility]EREBR[facility] HISTORY Josie Landis is a 56 year old right-handed female with CAD, here for evaluation of stroke/lupus callosum lesion found on MRI. Hx from initial visit 06/08/2022 - [facility] with c/o increasing confusion and aphasia. On plavix and ASA d/t current cardiac stenting History obtained by me, above by nurse: -had chest pain and heart cath on May 31, 2022 -felt loopy after her heart cath. She was on a variety of medications and then she noted this happening for several days. She went to her PCP and she was told it was not the medications and she stillfeel this way - also noted that her speech was slower -when she was driving a few weeks later, she was not driving the way she normally does. Her husbandnoted that she wasn't moving the steering wheel at this time and something just wasn't right. She was not fluent in her driving ability with turning the wheel. 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 See prior phone encounter. With this, she was referred to brain tumor, had work up including brain biopsy -brain biopsy not conclusive for gioma. Has more follow up testing with brain tumor -fees like her balance has worsened and since biopsy has more vision issues -is not sleeping well since starting steroids PAST MEDICAL HISTORY Diagnosis Date Asthma due to seasonal allergies 11/02/2022 Coronary artery disease Coronary artery disease involving wiyot coronary artery of wiyot heart without angina pectoris 11/02/2022 Gastroesophageal reflux disease without esophagitis 11/02/2022 Primary hypertension 11/02/2022 Seizures (HCC) 11/02/2022 Stroke (HCC) PAST SURGICAL HISTORY Procedure Laterality Date CARDIAC SURG PROCEDURE UNLIST 2017 cardiac stents x 2 CHOLECYSTECTOMY HX LIGATE FALLOPIAN TUBE PAST SURGICAL HISTORY OF 05/2022 cardiac stent x 1 PAST SURGICAL HISTORY OF hiatal hernia repair PAST SURGICAL HISTORY OF partial hysterectomy SHOULDER ARTHROSCOPY/SURGERY Right torn rotator cuff TONSILLECTOMY HX FAMILY HISTORY Problem Relation Age of Onset Anesthesia Problems No Family History Social History Tobacco Use Smoking status: Some Days Packs/day: 0.30 Years: 40.00 Total pack years: 12.00 Types: Cigarettes Smokeless tobacco: Never Tobacco comments: Trying to quit currently Used to smoke a pack per day on average Substance Use Topics Alcohol use: Never Drug use: Never MEDICATIONS Current Outpatient Medications Medication Sig dexAMETHasone (DECADRON) 2 mg tablet Taper Start November 20: 2 mg BID for 5 days; Start November 25: 2 mg once day for 5 days; November 30: 1 MG (1/2 Tab) FOR 5 DAYS THEN OFF. aspirin 81 mg cap Take 81 mg by mouth once daily. clopidogrel (PLAVIX) 75 mg tablet Take 1 tablet by mouth once daily. ondansetron (ZOFRAN) 8 mg tablet Take 1 tablet by mouth every 8 hours as needed for nausea/vomiting. pantoprazole DR (PROTONIX) 40 mg tablet Take 1 tablet by mouth once daily. acetaminophen (TYLENOL) 325 mg tablet 2 tablets by ORAL/FEEDING TUBE route every 4 hours as needed for pain. senna-docusate (SENNA-S) 8.6-50 mg per tablet 1 tablet by ORAL/FEEDING TUBE route twice daily. oxyCODONE IR (ROXICODONE) 5 mg immediate release tablet Take 1 tablet by mouth 6 hours as needed. hydroCHLOROthiazide 12.5 mg tablet Take 12.5 mg by mouth once daily. buPROPion XL (WELLBUTRIN XL) 300 mg 24 hr tablet Take 300 mg by mouth every morning. traZODone (DESYREL) 100 mg tablet Take 400 mg by mouth daily at bedtime. topiramate (TOPAMAX) 100 mg tablet TAKE 1 TABLET BY MOUTH TWICE A DAY DIRECTED vilazodone (VIIBRYD) 40 mg tablet Take 40 mg by mouth once daily. losartan (COZAAR) 25 mg tablet Take 25 mg by mouth once daily. metoprolol succinate ER (TOPROL XL) 25 mg 24 hr tablet Take 12.5 mg by mouth once daily. ezetimibe (ZETIA) 10 mg tablet Take 10 mg by mouth once daily. cariprazine (VRAYLAR) 3 mg capsule Take 3 mg by mouth once daily. PRALUENT PEN 75 mg/mL pen albuterol HFA (PROVENTIL HFA, VENTOLIN HFA) 90 mcg/actuation inhaler INHALE 2 (TWO) PUFFS EVERY 4 HOURS NEEDED carBAMazepine (TEGRETOL) 200 mg tablet Take 400 mg by mouth twice daily. sodium chloride 0.9 %, flush, (BD POSIFLUSH) syringe Inject 2-10 mL intravenously as directed. For Echo procedure clonazePAM (KLONOPIN) 0.5 mg tablet TAKE 1 TABLET BY MOUTH TWICE A DAY DIRECTED (Patient not taking: Reported on 10/27/2022) No current facility-administered medications for this visit. ALLERGIES ALLERGIES Allergen Reactions Budesonide-Formoter* Other: See Comments Aspirin Other: See Comments Latex Other: See Comments Penicillins Other: See Comments Adhesive Tape-Silic* Other: See Comments Budesonide Other: See Comments Formoterol Other: See Comments PHYSICAL EXAMINATION BP 124/69 (BP Site: Left Arm, BP Position: Sitting, BP Cuff Size: Regular Adult) Pulse 75 Wt 86.2 kg (190 lb) BMI 30.68 kg/m General: Well-developed, well-nourished, in no acute distress, at visit HEENT: Normocephalic, atraumatic. Sclerae anicteric Neurological Exam Mental Status: Awake, alert No aphasia, fluency intact, comprehension intact No dysarthria Cranial Nerves: 7: no facial droop but does not close the left eye completely Hearing intact Motor Exam: Moves all four extremities IMAGING MRI brain w/o contrast 06/08 per my review showed faint diffusion restriction in the splenium corpus callosum with some faint ADC hypointensity but this is very faint. More prominent FLAIR change in this area. Some FLAIR changes subcortical in right (2) and left (1) white matter without diffusion restriction. CTA head and neck per my review showed normal cerebrovascular circulation ECHO report showed a PFO but did not quantify size, had normal EF without any intracardiac thrombus Interval imaging MRI brain per radiology 07/23: IMPRESSION: Corpus callosum splenium nonenhancing expansile lesion with internal cystic/necrotic foci, grossly stable compared with 06/08/2022. This is of indeterminate etiology, with considerations including sequela of a 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 process (noting additional patchy foci of signal abnormality in the cerebral white matter) versus other inflammatory, post infectious or cytotoxic process. Note that low-grade neoplasm is not excluded, and continued follow-up is recommended. Patient Entered Questionnaires PROMIS/NeuroQoL Score Percentiles Physical Health 11/24/2022 06/24/2022 Physical Function Percentile 4 16* Sleep Percentile 8 21* Fatigue Percentile 38 66 Pain Interference Percentile 84 38 PROMIS SOCIAL ROLE SCORE 11/24/2022 06/24/2022 Social Role Satisfaction Percentile 31 12 Mental Health 11/24/2022 06/24/2022 NeuroQol Cognitive Function Percentile 4 2 General Self-Efficacy Percentile 69 88 PROMIS Global Health Scale 06/24/2022 Physical Health Percentile 15 Mental Health Percentile 19* Percentiles provide an indication of how a patient's score ranks in relation to the [place] general population. > 31st percentile is within normal limits or better * < 31st percentile is at least SD worse than population, which may be clinically relevant < 16th percentile is at least 1 SD worse than population and warrants attention Depression Screening PHQ-9 11/24/2022 06/24/2022 Score 15 19 Self-Harm Response 0 0 PHQ-9 Scores: PHQ-9 Self-Harm (Item 9) Response: 0 - 9 No to Mild depression 0 - Not at all 10 - 14 Moderate depression 1 - Several Days > 15 Severe depression 2 - More than half the days 3 - Nearly every day Sleep Apnea Probability Score 06/24/2022 Sleep Apnea Screen V2 20 (Sleep study not recommended) Impression: Corpus callosum lesion: progressive with worsening symptoms. Suspect neoplasm, also consider inflammatory, autoimmune. With progression on MRI and progression of symptoms, not consistent with vascular event. Patient foramen ovale: small on LUKE and incidental finding. No work up or intervention needed Plan: Continue follow up with brain tumor clinic and their evaluations No indication for antiplatelet from vascular standpoint. On dapt for cardiac stent I spent a total of 45 minutes on the date of service which included preparing to see the patient, [id number] patient care, completing clinical documentation, obtaining and/or reviewing separately obtained history, performing a medically appropriate examination, counseling and educating the patient/family/caregiver, and independently interpreting results (not separately reported) F/u in 3-4 months SIGNATURE Rad Pro DO Vascular Neurology CC Dr. Solis Cool DO [address] [facility] [address] [facility] [id number] documented in this encounterCinc[facility] History of Present illness Narrative* Pamela Vuong, RT(R) - 11/25/2022 11:20 AM EDT Radiology Service Progress Note DATE OF SERVICE: November 25, 2022 TIME: 2:04 PM PATIENT IDENTITY VERIFICATION COMPLETED USING TWO (2) STANDARD IDENTIFIERS: Name and Date of confirmed by patient verbally. FALL SCREENING: Has the patient had 2 falls in the last year or 1 fall with injury or currently using an Ambulatory Assistive Device (Walker, Cane, Wheelchair, Crutches, etc.)? No PATIENT GENDER DATA: Female. status: : No status: NO. PATIENT RELEVANT IMPLANT DATA REVIEWED: Yes ALLERGIES: Reviewed and unchanged CONTRAST ALLERGY: NO. EXAM: CT -CONTRAST INDUCED NEPHROPATHY RISK FACTORS: Not applicable CREATININE: Creatinine Date Value Ref Range Status 11/20/2022 0.88 0.58 - 0.96 mg/dL Final 11/05/2022 0.86 0.58 - 0.96 mg/dL Final 11/02/2022 0.93 0.58 - 0.96 mg/dL Final Estimated Glomerular Filtration Rate Date Value Ref Range Status 11/20/2022 78 >=60 mL/min/1.73m Final Comment: Estimated Glomerular Filtration Rate (eGFR) is calculated using the 2020 CKD-EPI creatinine equation. This equation utilizes serum creatinine, sex, and age as parameters. The creatinine assay has traceable calibration to isotope dilution- mass spectrometry. Refer to KDIGO guidelines for clinical interpretation. In patients with unstable renal function, e.g. those with acute kidney injury, the eGFRmay not accurately reflect actual GFR. P.O.C.T. RESULTS: POC done: Yes, See Lab Tab November 25, 2022 TREATMENT: N/A PERIPHERAL IV DATA: Ambulatory: A peripheral IV was started in the Right forearm with a Angio cath:22 gauge. RADIOLOGY DEPARTMENT: CT; Exam(s) Completed: Chest Abdomen Pelvis SIGNATURE: RT Octavio(Irving) PATIENT NAME: Josie Landis DATE: November 25, 2022 TIME: 2:04 PM documented in this encounterCincinnati [facility]07[facility]18-[facility] History of Present illness Narrative* Codie Soto MD - 11/17/2022 10:31 AM EDT Images from the original note were not included. 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 The patient is accompanied by her Marciano (2nd ), and her daughter Beena. Subjective History of Present Illness: 57YOF who has CAD, and has had 4 stents, the 1st 2 were done 4 years ago, and the last one was done in May 2022. On the day of the last coronary artery stent, she had a sudden sensation that something was wrong, as she said she became suddenly dyslexic. On further questioning, she was having what appears to have aphasia in the form of word finding difficulty, as well difficulty reading, she says that whatever she would read she could not understand the witting, and she also felt off mentally, meaning somewhat confused. No define LOC/passing out/nor syncope. Another symptom she noted is that she cannot see out of the right side of her peripheral vision,a dthis has continued like that. She saw her eye doctor she said and is the one who noticed also the visual field deficit ( I do nothave those records for my review). On 06/08/22, she sima to [facility] for the above issues. She saw cerebrovascular/stroke neurologist Dr. Pro and did extensive work up for possible CVA. On 10/21/22, Dr. Pro based on the MRI from that showed alight progression of the lesion, with the concern that this is a glioma referred the patient to our [facility] [place] for evaluation. Dr. Feliz performed a biopsy on 11/04/22. The pathology is non diagnostic for a brain tumor, a glioma, which is the concern from the radiological perspective as the lesion has progressed in size slightly. The pathology is reported as: FINAL DIAGNOSIS A. Brain, right corpus callosum lesion, stereotactic biopsy - Minute focus of atypical cells in a reactive background; - See comment. B. Brain, right corpus callosum lesion, stereotactic biopsy - Gliosis with scattered macrophages Diagnosis Comment The biopsy shows focal hypercellularity at one corner (less than 5% of tissue submitted) with atypical angulated elongated nuclei and fibrillary background suspicious for glioma. Unfortunately this area is only present on the frozen section slide and is cut through on the resubmitted tissue. It is not present in any of the other slides/block submitted. The remainder of the specimen shows white matter with scattered foamy macrophages and gliosis. Part B shows white matter with scattered macrophages and gliosis but does not have the atypical area noted in frozen section. Immunohistochemical stains performed to help with classification show thefollowing (B1): CD68 highlights scattered macrophages; IDH1 R132H negative (wt); ATRX retained; p53 strong nuclear positivity 10%; Ki-67 proliferative index 1%; BRAF V600E negative (wildtype); H3 K27M negative (wt); H3 K27me3 retained; Luxol fast blue focal mild loss; Neurofilament cocktail with focal decreased axons; GMS negative for fungus; Gram negative for bacteria. FISH for EGFR reported separately. Slides also reviewed by Drs. Maria Luisa Leonardo and Jesu Narvaez who agree. As of today, she has persistent, difficulty both findings work, she still has the visual field deficit, which has extended to the lower quadrant as the initial report was that she had a right superior quadrantanopia. Also, she still feels foggy, meaning not very sharp mentally, yet she is still able to perform her ADL's. She is also having poor sleep. She says that she has been taking a multivitamin for many years, and she stopped them the week prior to the last stents, as per doctors' advice. No weight lost. No change in diet No new medications No similar history of the above No known neurological issue/diseases. She reports that she has bipolar disorder. Heide Dumont RN at 11/12/2022 7:44 AM Patient is a 57 y/o female from [place], [place] with PMH CAD (s/p stent placement- on ASA and Plavix), HTN, Asthma Reason for consult: brain lesion Surgery: 11/04/22- Right sided brain biopsy of corpus callosum lesion Pathology: Minute focus of atypical cells in a reactive background; Gliosis with scattered macrophages. EGFR NOT AMPLIFIED CD68 highlights scattered macrophages; IDH1 R132H negative (wt); ATRX retained; p53 strong nuclear positivity 10%; Ki-67 proliferative index 1%; BRAF V600E negative (wildtype); H3 K27M negative (wt); H3 K27me3 retained; Luxol fast blue focal mild loss; Neurofilament cocktail with focal decreased axons; GMS negative for fungus; Gram negative for bacteria. Neurosurgeon Dr Jovel Radiation oncologist: None Cardiovascular neurology_ Dr Pro AED: None Steroids: Decadron 2mg tablet- tapers to 2mg to twice daily without further instructions Treatment: none Pertinent History: per epic review 57 y/o female admitted to [facility] due to confusion and aphasia on 06/08/22. Recent coronary stent placement and stroke work up included CT and MRI Brain which revealed a faint diffusion restriction in the splenium corpus callosum. More prominent FLAIR change in this area. Some FLAIR changes s ubcortical in right (2) and left (1) white matter without diffusion restriction. She was dischargedhome and a repeated MRI on 07/03/22 showed a corpus callosum splenium nonenhancing expansile lesionwith internal cystic/necrotic foci, grossly stable compared with 06/08/2022 She was seen by vascular neurology- Dr Pro on 08/25/22- fper her notes- elt off since June. noted some changes in her speech and driving. 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 Review of CTA head ->normal cerebrovascular circulation. ECHO - No PFO PLan for repeat MRI , LUKE. Repeat MRI done 09/25/22 showed progression of lesion and she was seen by Dr Jovel on 10/27/22 Ather visit she was still having difficulty reading/writing, balance issues, recall issues and had lost peripheral vision on the Right. She was unable to work or drive. Recommendations made for brain bi opsy s/p 11/04/22- Right sided brain biopsy of corpus callosum lesion MRi Brain 09/25/22 Infiltrative process in the splenium the corpus callosum which, in view of the slight interval progression since the prior studies, would be worrisome for a glioma. MRi Brain 07/03/22 Corpus callosum splenium nonenhancing expansile lesion with internal cystic/necrotic foci, grossly stable compared with 06/08/2022. This is of indeterminate etiology, with considerations including sequela of a 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 process (noting additional patchy foci of signal abnormality in the cerebral white matter) versus other inflammatory, post infectious or cytotoxic process. Note that low-grade neoplasm is not excluded, and continued follow-up is recommended. Heide Dumont, RN, BSN [facility] 11/17/2022 INTERIM EVENTS No new symptoms She is joseph to go oveer the Brain tumor Board recommendations. Last Chemo: N/A Current Steroids dose: Start End dexAMETHasone (DECADRON) 2 mg tablet (Discontinued) 100 tablet 0 11/05/2022 11/17/2022 Sig: Take 4 tablets in the morning and in the afternoon for 5 days. Take 3 tablets in the morning and in the afternoon for 5 days. Current dose as of 11/17/22: Then take 2 tablets in the morning and in the afternoon for 5 days.Then take 1 tablet in the morning and afternoon until directed otherwise. Sent to pharmacy as: dexAMETHasone (DECADRON) 2 mg tablet Start November 20: 2 mg BID for 5 days Start November 25: 2 mg once day for 5 days November 30: 1 MG (1/2 Tab) FOR 5 DAYS THEN OFF. Current AED Dose: N/A Therapy Status Data Form Past Medical History: PAST MEDICAL HISTORY Diagnosis Date Asthma due to seasonal allergies 11/02/2022 Coronary artery disease Coronary artery disease involving wiyot coronary artery of wiyot heart without angina pectoris 11/02/2022 Gastroesophageal reflux disease without esophagitis 11/02/2022 Primary hypertension 11/02/2022 Seizures (HCC) 11/02/2022 Stroke (HCC) Past Surgical History: PAST SURGICAL HISTORY Procedure Laterality Date CARDIAC SURG PROCEDURE UNLIST 2018 cardiac stents x 2 CHOLECYSTECTOMY HX LIGATE FALLOPIAN TUBE PAST SURGICAL HISTORY OF 05/2022 cardiac stent x 1 PAST SURGICAL HISTORY OF hiatal hernia repair PAST SURGICAL HISTORY OF partial hysterectomy SHOULDER ARTHROSCOPY/SURGERY Right torn rotator cuff TONSILLECTOMY HX Family History: FAMILY HISTORY Problem Relation Age of Onset Anesthesia Problems No Family History No family H/O neurological conditions No H/O brain tumors in family No H/O 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 diseases in the family She has 2 biological daughters who are healthy. Social History Tobacco Use Smoking status: Some Days Packs/day: 0.30 Years: 40.00 Total pack years: 12.00 Types: Cigarettes Smokeless tobacco: Never Tobacco comments: Trying to quit currently Used to smoke a pack per day on average Substance Use Topics Alcohol use: Never Drug use: Never Allergies: Budesonide-Formoterol, Aspirin, Latex, Penicillins, Adhesive Tape-Silicones, Budesonide, and Formoterol Current Outpatient Medications Medication Sig clotrimazole (MYCELEX) 10 mg elinor Use 1 Elinor as instructed five times daily for 7 days. aspirin 81 mg cap Take 81 mg by mouth once daily. clopidogrel (PLAVIX) 75 mg tablet Take 1 tablet by mouth once daily. ondansetron (ZOFRAN) 8 mg tablet Take 1 tablet by mouth every 8 hours as needed for nausea/vomiting. pantoprazole DR (PROTONIX) 40 mg tablet Take 1 tablet by mouth once daily. acetaminophen (TYLENOL) 325 mg tablet 2 tablets by ORAL/FEEDING TUBE route every 4 hours as needed for pain. dexAMETHasone (DECADRON) 2 mg tablet Take 4 tablets in the morning and in the afternoon for 5 days.Take 3 tablets in the morning and in the afternoon for 5 days. Then take 2 tablets in the morning and in the afternoon for 5 days.Then take 1 tablet in the morning and afternoon until directed otherwise. senna-docusate (SENNA-S) 8.6-50 mg per tablet 1 tablet by ORAL/FEEDING TUBE route twice daily. oxyCODONE IR (ROXICODONE) 5 mg immediate release tablet Take 1 tablet by mouth 6 hours as needed. hydroCHLOROthiazide 12.5 mg tablet Take 12.5 mg by mouth once daily. buPROPion XL (WELLBUTRIN XL) 300 mg 24 hr tablet Take 300 mg by mouth every morning. clonazePAM (KLONOPIN) 0.5 mg tablet TAKE 1 TABLET BY MOUTH TWICE A DAY DIRECTED (Patient not taking: Reported on 10/27/2022) traZODone (DESYREL) 100 mg tablet Take 400 mg by mouth daily at bedtime. topiramate (TOPAMAX) 100 mg tablet TAKE 1 TABLET BY MOUTH TWICE A DAY DIRECTED vilazodone (VIIBRYD) 40 mg tablet Take 40 mg by mouth once daily. losartan (COZAAR) 25 mg tablet Take 25 mg by mouth once daily. metoprolol succinate ER (TOPROL XL) 25 mg 24 hr tablet Take 12.5 mg by mouth once daily. ezetimibe (ZETIA) 10 mg tablet Take 10 mg by mouth once daily. cariprazine (VRAYLAR) 3 mg capsule Take 3 mg by mouth once daily. PRALUENT PEN 75 mg/mL pen albuterol HFA (PROVENTIL HFA, VENTOLIN HFA) 90 mcg/actuation inhaler INHALE 2 (TWO) PUFFS EVERY 4 HOURS NEEDED carBAMazepine (TEGRETOL) 200 mg tablet Take 400 mg by mouth twice daily. sodium chloride 0.9 %, flush, (BD POSIFLUSH) syringe Inject 2-10 mL intravenously as directed. For Echo procedure No current facility-administered medications for this visit. Review of systems: Constitutional: No recent fever or weight loss. Eyes: No history of glaucoma or cataracts. ENMT: No recent ear infection, nasal congestion, mouth sores or sore throat. CV: No history of chest pain, palpitations or leg swelling. Respiratory: No history of SOB, asthma or recent cough. Gastrointestinal: No history of nausea, vomiting, dysphagia or abdominal pain. Genitourinary: No history of hematuria or dysuria. Musculoskeletal: No complaint of arthritis, unstable gait or arm/leg weakness. Psychiatric: No history of hallucinations or depression or anxiety. ROS Neurological: No complaint of headache. No complaint of tinnitus. No complaint of decreased hearing. No complaint of diplopia. No complaints of decreased visual acuity. No complaint of arm/leg numbness. No problem with limb coordination. No complaint of syncope, seizures or disorientation. Objective Physical Exam: There were no vitals taken for this visit. This is a virtual exam based on observational as below: No vital signs. NEURO: on observation, CN II-XII intact, no pronator drift, no tremor noted, self reported and/or on observation moves extremities equally, no self-reported sensory deficits and ambulating without difficulty. KPS and ECOG Provider Data Form PHQ 2 and 9 Total Scores 06/24/2022 PHQ-2 Score 5 PHQ-9 Score 19 Labs: CBC Latest Ref Rng & Units 11/02/2022 WBC 3.70 - 11.00 k/uL 5.14 RBC 3.90 - 5.20 m/uL 4.62 HEMOGLOBIN 11.5 - 15.5 g/dL 13.9 HEMATOCRIT 36.0 - 46.0 % 40.4 MCV 80.0 - 100.0 fL 87.4 MCH 26.0 - 34.0 pg 30.1 MCHC 30.5 - 36.0 g/dL 34.4 RDW-CV 11.5 - 15.0 % 13.4 PLATELETS 150 - 400 k/uL 206 MPV 9.0 - 12.7 fL 9.1 BASO% % 0.4 ABS NEUT (ANC) 1.45 - 7.50 k/uL 2.70 ABS LYMPH 1.00 - 4.00 k/uL 1.82 ABS MONO <0.87 k/uL 0.52 ABS EOSIN <0.46 k/uL 0.06 ABS BASO <0.11 k/uL <0.03 NRBC /100 WBC 0.0 CMP Latest Ref Rng & Units 11/02/2022 11/05/2022 SODIUM 136 - 144 mmol/L 129(L) 135(L) POTASSIUM 3.7 - 5.1 mmol/L 3.9 3.6(L) CHLORIDE 97 - 105 mmol/L 93(L) 102 CO2 22 - 30 mmol/L 27 25 GLUCOSE 74 - 99 mg/dL 100(H) 100(H) BUN 7 - 21 mg/dL 4(L) 7 CREATININE 0.58 - 0.96 mg/dL 0.93 0.86 EGFR >=60 mL/min/1.73m 73 80 CALCIUM, TOTAL 8.5 - 10.2 mg/dL 9.5 9.0 Final Pathology: \\\ SURGICAL PATHOLOGY: [id number] Order: [id number] Collected 11/04/2022 11:13 AM Status: Final result Visible to patient: No (scheduled for 11/14/2022 1:09 PM) Dx: Glioma (HCC) 0 Result Notes Component FINAL DIAGNOSIS A. Brain, right corpus callosum lesion, stereotactic biopsy - Minute focus of atypical cells in a reactive background; - See comment. B. Brain, right corpus callosum lesion, stereotactic biopsy - Gliosis with scattered macrophages. Diagnosis Comment The biopsy shows focal hypercellularity at one corner (less than 5% of tissue submitted) with atypical angulated elongated nuclei and fibrillary background suspicious for glioma. Unfortunately this area is only present on the frozen section slide and is cut through on the resubmitted tissue. It is not present in any of the other slides/block submitted. The remainder of the specimen shows white matter with scattered foamy macrophages and gliosis. Part B shows white matter with scattered macrophages and gliosis but does not have the atypical area noted in frozen section. Immunohistochemical stains performed to help with classification show thefollowing (B1): CD68 highlights scattered macrophages; IDH1 R132H negative (wt); ATRX retained; p53 strong nuclear positivity 10%; Ki-67 proliferative index 1%; BRAF V600E negative (wildtype); H3 K27M negative (wt); H3 K27me3 retained; Luxol fast blue focal mild loss; Neurofilament cocktail with focal decreased axons; GMS negative for fungus; Gram negative for bacteria. FISH for EGFR reported separately. Slides also reviewed by Drs. Maria Luisa Leonardo and Jesu Narvaez who agree. Laboratory Developed Test (LDT) Disclaimer: Performance characteristics of immunohistochemical, immunofluorescent and chromogenic in-situ hybridization tests have been determined by the performing laboratory within [facility] s [facility] Pathology and Laboratory Medicine [place] ([facility], [facility], [facility], [facility], [facility], or [facility]) in a manner consistent with CLIA requirements. One or more of these tests have not been cleared or approved by the FDA. [facility] is regulated under CLIA as qualified to perform high-complexity testing. These tests are used for clinical purposes. They should not be regarded as investigational or for research. Positive and negative controls stain appropriately. Gross Description A. BRAIN BIOPSY Received fresh for intraoperative evaluation labeled as right corpus callosum lesion is a whitishoval piece of tissue measuring 5 x 4 x 0.2 cm. Half of the tissue is submitted for frozen section evaluation in FSA 1. The rest of the tissue is submitted for permanent in A2. Gross examination performed at [facility], [address] [place] [address] 11/04/2022 B. BRAIN BIOPSY Received fresh labeled right corpus callosum lesion are multiple fragments of white-goodson tissue aggregating to 0.6 x 0.5 x 0.2 cm. The specimen is submitted entirely in cassette B1. [place] [address] CARLOS MANUEL/DANIELE 11/04/22 12:21 PM Intraoperative Diagnosis A. 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 (Dr. Narvaez). Intraoperative diagnosis performed at [address] 11/04/2022 Clinical History Pre-op diagnosis: Glioma (HCC) [C71.9] Performing Lab Diagnostic interpretation performed at [facility], [address] [place] [address] CLIA# [id number] Dross Skimmer: Jasen Rivera M.D. Resulting Agency CCM Specimen Collected: 11/04/22 11:13 AM EDT Last Resulted: 11/09/22 1:09 PM EDT Order Details View Encounter Lab and Collection Details Routing Result History View All Conversations on this Encounter Scans on Order [id number] Document on 11/09/2022 1:09 PM by Anusha Thomas MD Result Care Coordination Patient Communication 11/14/2022 1:09 PM Release Now Not seen Back to Top FISH FOR EGFR: [id number] Order: [id number] - Reflex for Order [id number] Collected 11/04/2022 11:22 AM Status: Final result Visible to patient: Yes (seen) Dx: Glioma (HCC) 0 Result Notes Component FISH FOR EGFR FISH for EGFR Laboratory Accession Number: [id number] Case: [id number] Block: B1 Sample Type: FFPET Sample Description: BRAIN BIOPSY, RIGHT CORPUS CALLOSUM LESION Received Date: 11/06/2022 RESULTS: EGFR NOT AMPLIFIED Number of nuclei scored: 40 INTERPRETATION: Negative for amplification of the EGFR gene. Clinical and pathological correlation is recommended. The following FISH results were obtained: EGFR: 1.78 CEP7: 2.15 EGFR/CEP7 ratio: 0.83 (Reference Range: Amplified >2.00) COMMENT: A combination of genetic signature and histology stratifies lower- grade gliomas better than histology alone. IDH-wildtype infiltrating or diffuse astrocytomas with EGFR amplification are predicted to follow an aggressive clinical course resembling that of IDH-wildtype glioblastoma. Reference: Néstor JACOME et al. cIMPACT-NOW update 3: recommended diagnostic criteria for Diffuse astrocytic glioma, IDH- wildtype, with molecular features of glioblastoma, WHO grade IV. Acta Neuropathol. 2018 Nov;136(5):805-810. METHODOLOGY: Amplification of the Epidermal Growth Factor Receptor (EGFR) gene was evaluated with interphase fluorescence in situ hybridization (FISH) on formalin-fixed paraffin embedded tissue sections using the LSI EGFR (7p11.2) and chromosome 7 centromere (CEP 7) probes ([employer], [place], [place]). The slides were scored manually. LIMITATIONS: This test will not identify all rearrangements involving EGFR. Rare, cryptic abnormalities may be below the resolution of the assay, or may otherwise be undetected. Specimen size, quality or representativeness can affect the quality of the result. This assay has been validated for tissues fixed with 10% neutral buffered formalin. Decalcification agents and fixation agents containing heavy metals, e.g. B5, or harsh acid or base components (e.g. Bouin's solution) can adversely impact assay performance. DISCLAIMER: This test was developed and its performance characteristics determined by the [facility]'s [facility]ology [facility] [place] ([facility]). It has not been cleared or approved by the FDA. [facility] is regulated under CLIA as qualified to perform high- complexity testing. This test is used for clinical purposes. It should not be regarded as investigational or for research. Interpretation performed at [facility], [address] [place] [id number]. CLIA Number: [id number] As reviewed by Mayra Louis MD, PhD Resulting Agency [facility] Specimen Collected: 11/04/22 11:22 AM EDT Last Resulted: 11/09/22 3:26 PM EDT Order Details View Encounter Lab and Collection Details Routing Result History View All Conversations on this Encounter Result Care Coordination Patient Communication Add Comments Seen Back to Top Specimen Collection Information ID Source Type Collected By Time Frozen A BRAIN BIOPSY Tissue Carlos Jovel MD 11/04/22 1113 Yes Description: right corpus callosum lesion B BRAIN BIOPSY Tissue Carlos Jovel MD 11/04/22 1122 No Description: right corpus callosum lesion Additional Information Diagnosis codes: Glioma (HCC) [C71.9] Comments: Pre-op diagnosis: Glioma (HCC) [C71.9] Scanned Documents Result Information Status: Final result (Resulted: 11/09/2022 1:09 PM) Provider Status: Open Questions Order Question Answer Source of specimen(s): Clinical History SURGICAL PATHOLOGY (Order [id number]) FISH FOR EGFR (Order [id number]) - Reflex for Order [id number] Patient Release Status: This result is scheduled for release on 11/14/2022 1:09 PM. Routing History Priority Sent On From To Message Type 11/09/2022 3:26 PM Lab, Background User Anusha Thomas MD Results 11/09/2022 1:09 PM Lab, Background User Carlos Jovel MD Results 11/09/2022 1:09 PM Lab, Background User Triston Guy MD Results View [facility] SURGICAL PATHOLOGY (Order #[id number]) on 11/04/22 CAP/CLIA/Joint Commission Regulatory Result Report SURGICAL PATHOLOGY (Order #[id number]) on 11/04/22 SURGICAL PATHOLOGY: Patient Communication 11/14/2022 1:09 PM Release Now Not seen Imaging: MRI Report MRI BRAIN LOCALIZATION WO/W IVCON Exam End: 11/02/2022 12:46 PM (Final result) Narrative: * * *Final Report* * * DATE OF EXAM: Nov 02 2022 12:46PM QBM 0291 - MRI BRAIN LOCAL WO/W IVCON / PROCEDURE REASON: Glioma (HCC) * * * * Physician Interpretation * * * * EXAMINATION: MRI BRAIN LOCAL WO/W IVCON CLINICAL HISTORY: Glioma. TECHNIQUE: High resolution, gadolinium enhanced axial gradient echo volume acquisition was performed of the head for preoperative localization. Supplemental: DTI Contrast: 17 mL Dotarem IV COMPARISON: MRI brain 09/25/2022 and 07/03/2022, outside hospital MRI 06/08/2022 RESULT: Preprocedural localization images demonstrating confluent T2/FLAIR hyperintensity within the splenium of the corpus callosum with a central small cystic focus in the midline. No enhancement following contrast administration. No restricted diffusion. No additional lesions. No mass effect, midline shift or acute herniation. Normal and unchanged caliber the ventricular system. No pathologic enhancement elsewhere within the brain. The ocular globes and orbital soft tissue planes are grossly within normal limits. Paranasal sinuses are clear. Trace fluid in the mastoid tips. Impression: IMPRESSION: Localization exam with redemonstration of infiltrative process in the splenium of the corpus callosum concerning for glioma. Physical Chemistry Teacher: RHIANNON Transcribe Date/Time: Nov 02 2022 1:10P Dictated by : SHANTANU PIERSON MD This examination was interpreted and the report reviewed and electronically signed by: KERRI HOYT DO on Nov 02 2022 2:08PM EST Assessment & Plan 57 YO RHF who presents back at the end of May 2022, with acute, language dysfunction, visual field deficit and likely alexia, which occur on the day of a cardiovascular procedure, coronary arterystent placement with a brain MRI that reveals a splenium of the corpus callosum abnormality. A follow up MRI 09/25/22 revealed that the SCC lesion has slightly progressed in size. Her stroke neurologist Dr. Pro felt that this crawley not fit with a stroke and because the neuroradiology reading suggest that this could e a glioma, she referred the patient to our [facility] [place] for evaluation, On 11/02/22, she had a biopsy by Dr. Jovel, neurosurgereon at the [facility]. The pathology is basically non diagnostic. Symptomatically the patient remains with some language dysfunction, mainly word finding difficulty,right visual field deficit, and likely alexia. DISCUSSION: With the constellation of signs and symptoms, including, aphasia., mainly word finding difficulty, dyslexia, confusion, and visual field deficit on the right in the context of a lesion in the SC, this suggests highly a disconnecting syndrome. -Alexia: The patient's description of inability it understands written word is likely alexia, whichcan be seen in disconnecting syndromes, and seen in lesion of the SCC. Typically seen in a lesion of the occipital lobes but also seen in lesions of the SCC. 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 There are reports of this manifestation as published by Arelis Petit et al (1) where they described a patient with SCC infarct and HH, In this paper their conclusion is a follows (excerpt/verbatim from the publication: We hypothesized that right homonymous hemianopsia was caused by an interrupted transfer of visual information at the splenium of the CC across the hemispheres. In other words, we hypothesized that the visibility would not be defined only in the unilateral striate cortex, but also in the bilateral cortexes across the hemispheres. Aphasia: According to the literature splenium of the corpus callosum lesions can cause cognitive problems, change in behavior, confusion even seizures, including aphasia as reported in the literature. I think that the constellation of symptom could be explained by the location of the lesion, and thefact that the lesion persists radiologically and clinically, suggest that the lesion has not improved and slightly progressing as reported in the MRI from 09/25/22, when compared to the MRI from 07/03/2022 and 06/08/2022. Regarding the etiology of the lesion: The pathology was not conclusive. The initial working diagnosis because of the acute/subacute presentation and in the context that occurred on the day of a vascular procedure, coronary artery stent, a CVA was considered for which thepatient saw cerebrovascular/stroke neurology Dr. Pro. She had CVA work up. However, because of the MRI from 09/25/22, showed slight progression of the lesion, the differential radiological diagnoses was narrowed to possible glioma. Her stroke neurologist Dr. Pro has deemed that this is not astroke and referred her to the [facility] [place] and had a biopsy by Dr. Feliz on 11/04/22, and as I said the pathology is not diagnotic. Considering the presentation the differential diagnosis is: -STROKE Other possibilities: -Glioma -Unlikely encephalitis in light of the timeline, but an indolent encephalitis can still be possible -Venous infarct (6) -Demyelination - due to MS, unlikely due to age but can be seen, and or other inflammatory 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 entities. -Paraneoplastic syndrome. Differential diagnosis from a publication by AJR: Lipoma Glioma: low grade or high grade Lymphoma Juvenile Pilocytic Astrocytoma Demyelinating Diseases -Multiple Sclerosis Progressive Multifocal Leukoencephalopathy Marchiafava-Bignami Disease - unlikely S she does no drink ETOH in large amounts. Infarction - see above. Arteriovenous Malformations - had a CTA by Dr. Pro and showed no abnormalities. Trauma Susac Syndrome (SS) (From [employer] (excerpt/verbatim). SS is a presumed to be caused by autoimmune endotheliopathy , resulting in microinfarcts of the precapillary arterioles of the brain, retina, and inner ear (cochlea and semicircular canals).[2][3] The exact mechanism is unclear, but pathogenesis does resemble the microinfarction of muscle and skin seen in juvenile dermatomyositis. Susac syndrome (SS)) is a rare condition characterized by the clinical triad of encephalopathy, branch retinal artery occlusion (BRAO), and sensorineural hearing loss. However, all three features may not be present concurrently upon initial presentation. This condition may also be referred as small infarctions of cochlear, retinal, and encephalic tissue (SICRET), microangiopathy with retinopathy, encephalopathy, and deafness (RED- M), and retinocochleocerebral vasculopathy.[1][2] Unlikely that the patient has Susac Syndrome, as she does not meet the clinical triad, however thisis still in the differential. After the biopsy the diagnosis is till elusive, and the differential diagnosis from my perspective remains as above, as I cannot exclude a possible entity for sure. 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 I will refer the patient to se Dr. Carrizales who is also a neurologist. Other colleagues that I think will be valuable for her care would be neuro- immunology to get their input as to a possible neuro immunological explanation for her presentation. Neuro ID input would be also helpful. Of course, o follow will with Dr. Pro and I would welcome her continued input, in light that per pathology there is no evidence of glioma. As her case is set to be presented to Brain Tumor Board today, I will wait for any further commentsfrom neuropathology that could shed a better light to the etiology of this lesion. I will also welcome the multidisciplinary input. In the interim Mrs. Landis should have a short interval MRI to define whether this lesion is progressing or regressing. Her last brain MRI is from . REFERENCES: 1-Barber Zuleta H, Franny H, et al. 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 Cureus 13(11): f56915. doi:10.7759/cureus.89559), 2-Graham Paul eta al. Clinical features of acute corpus callosum infarction patients. Int J Clin Exp Pathol. 2014; 7(8): 0262-3427. 3-Damari Guerrero. 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 Brain Behav. 2019 Nov;9(11): q02093. 4-Conrado Cook and Holly Ley. 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 BMJ Case Rep. 2014; 2014: [id number]. 5-Fadi Miranda et al. Alexia Without Agraphia: A Rare Entity. Cureus. 2017 Chon; 9(6): e1304. 6-Lewis Sullivan MD; Ruchi Torre MD. Splenium Infarct Due to Cerebral Venous Thrombosis. Arch Neurol. 2007;64(10):1540. 7-Shelton Stevenson et al. Lesions of the Corpus Callosum: MR Imaging and Differential Considerations in Adults and Children. 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 11/17/2022. Recommend to refer her to neuroimmunology for an opinion. -Full spine MRI w and w/o contrast for work up for 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 disease, and or drop metastasis. -CT chest and pelvis (if NEG a PET scan of the brain/full body), she is at risk of lung CA with 40 year H/o smoking -LP with CSF analysis to exclude POS malignant cytology, and or paraneoplastic AB, and or infectious process. PLAN: 1-Splenium of the corpus callosum lesion, etiology unclear: -MRI of the brain in 1 month time from the last one done in 11/02/22. -Full spine MRI (cervical/thoracic/lumbar regions) w and w/o contrast. To be done in the next 1-3 weeks or the soonest. Reason: work up for 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 disease, and or drop metastasis. -CT chest/abdomen and pelvis w and w/o contrast Reason: looking for a primary neoplasm, patient with 40 year H/O tobacco smoking. -Note: if CT's NEG will order a PET CT scan of the body/brain, looking for a primary CA, which could cause a paraneoplastic syndrome. 2-Follow up's: -Clinic visit 1-2 days after the MRI's (brain/spine). -Clinic visit 1-2 weeks after the LP. 3-Referral to neuroimmunology for opinion whether the lesion in the SCC is from an autoimmune/immune/paraneoplastic pathology, and recommendations on further work up. 4-Referral to Neuro ID for opinion whether the SCC lesion is of infectious etiology, i.e., indolentprocess, and recommendations on further work up. 5-Lumbar puncture by Interventional radiology - To be done after spine MRI. To obtain enough fluid at least 25 CC for multiple tests, and to save CSF for future tests. -Note the patient is to be on Plavix and aspirin for her CAD, S/p coronary artery stents. Stop antiplatelets per interventional radiology protocol, and if Ok with her project control manager. 6-CSF orders entered. -Add other orders per neuroimmunology and Neuro ID recommendations. 7-Referral to neuro-ophthalmology: to define whether her visual field deficit indeed matches with her brain lesions in the SCC, or whether there could be other possibility for her visual field deficit, in correlation with her other symptoms. I will refer the patient to se Dr. Joaquín Carrizales who is also a neurologist. -Referral to General Ophthalmology: I will refer her to see general ophthalmology for an evaluation as my understanding is that appointment for neuro-ophthalmology may take long. The patient needs a baseline full exam. 8--Follow with Dr. Pro from cerebrovascular/stroke neurology 9-Follow with her project control manager for her CAD, S/p coronary artery stents 10-Follow with her PCP for general medical care/coordination of care, Dr. Cool. 11-No to drive a car or any other motorized vehicle, and not to engage in activities that could place her at risk to her and or others of injury is she were to have episodes of confusion. 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 For now, as she had episodes of conduction which have not been clarified yet, also she has a visual field deficit on the right. Her driving privileges to be resumed depending on her progress/entities found. 12. Blood test: orders entered. ORDERS: CONSULT TO INFECTIOUS DISEASES NEURO ID Routine, Dx: 1. Brain mass 2. Alexia 3. Lesion of brain 4. Speech disturbance, unspecified type 5. Visual field defect 6. Confusion CONSULT TO NEUROLOGY NEURO IMMUNOLOGY Routine, Dx: 1. Brain mass 2. Alexia 3. Lesion of brain 4. Speech disturbance, unspecified type 5. Visual field defect 6. Confusion CONSULT TO OPHTHALMOLOGY GENERAL JOSE, Dx: 1. Brain mass 2. Alexia 3. Lesion of brain 4. Speech disturbance, unspecified type 5. Visual field defect 6. Confusion CONSULT TO OPHTHALMOLOGY NEURO-OPHTHALMOLOGY Routine, Dx: 1. Brain mass 2. Alexia 3. Lesion of brain 4. Speech disturbance, unspecified type 5. Visual field defect 6. Confusion In the end the patient and family verbalized understanding of the above, they had questions which Madhavi I answered to their satisfaction and agreed with these recommendations and had no further questions or concerns for the moment, but I encourage them to call the [facility] with any questions or concerns. I spent a total of 45 minutes on the date of the service which included preparing to see the patient, at least 50% of jobs-ed-vhpe patient care, completing clinical documentation, obtaining and/or reviewing separately obtained history, performing a medically appropriate examination, counseling and educating the patient/family/caregiver, ordering medications, tests, or procedures, communicating with other HCPs (not separately reported), independently interpreting results (not separately reported), communicating results to the patient/family/caregiver and care coordination (not separately reported). Codei Soto MD Staff Neuro-Oncologist [facility] [place], [place] CC: CC -Carlos Jovel MD, Neurosurgery, [facility], [facility], [facility] CC: aRd Pro DO\, Vascular Neurology, [facility] CC: Dr. Solis Cool, [address] [facility] [address] [facility] [address] documented in this encounterCinc[facility] Miscellaneous Notes* Telephone Encounter - Christine Aguayo LSW - 11/16/2022 11:08 AM EDT Social Work Problem Referral Note INFORMATION/REFERRAL : Josie Tierneykapilcelestino 57 year old female was referred by physician - Dr. Huizar to [facility] Social Work for the following reason(s): social security disability PERSONS INTERVIEWED: patient INTERVENTION: Phone Contact Affect/Mood: The patient is noted as appropriate IDENTIFIED PROBLEMS/NEEDS: Disability Intervention/Referral to be provided:Consultation only provided IMPRESSION/PLAN: SW contacted pt via phone to introduce self and role. 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 Pt shares that she has applied for SSD, but it has been a long and difficult process. Pt states that she does have alawyer to assist with social security disability. Pt shares that because she does not have a specific diagnosis yet, it has been a barrier to being approved for SSD. Pt expresses that she should findout tomorrow what the next steps are due to her virtual appointment with Dr. Huizar after he speakswith the tumor board. Pt shares that she would like to be able to go on short term and custodial disability through her employment, but she will have to see if that is possible once she is given a diagnosis. Pt expresses that she has been experiencing memory difficulties and she has support from her spouse and daughter. SW sent a [employer] message with contact information for pt and family to have for future needs. Pt had no additional questions at this time. Pt and family will reach out when needed. F/U APPOINTMENT: PRN Assigned SW listed in Care Team tab: Yes SHELDON Martinez documented in this encounterCincinnati [facility]07-[facility] History of Present illness Narrative* Codie Soto MD - 11/12/2022 7:00 PM EDT Images from the original note were not included. BRAIN TUMOR BOARD Participants: Neuroradiology: Dr. Blayne Vincent Neurosurgery Radiation Oncologist Medical Oncology/Neuro-Oncology Recommendations and comments from the board, see below. I will inform the patient about the recommendations at the earliest opportunity/or next short interval follow up appointment. Codie Soto MD documented in this encounterCincinnati [facility]07-13-2023 History of Present illness Narrative* Antonia Weiss RN - 11/12/2022 12:04 PM EDT Patient is here today accompanied by and daughter for surgical incision wound check. Surgery: Rt Stereotactic Biopsy on 11/04/[address]22 for tissue specimen with Dr Jovel Patient is recovering well postoperatively. No neurological symptoms or complaints compared to preoperative baseline . Re-discussed postoperative activity and associated restrictions. Incision is well approximated and healing. There are no signs or symptoms of infection. Incision cleansed with betadine and sutures removed without incident. Reviewed wound care with patient with good understanding. Patient has some thrush and would like a prescription for something for it. She stated that she always gets thrush when she takes any antibiotics and she uses the lozenges for it and it clears it right up. Prescription will be called in for this. Patient aware to phone office with any questions or concerns. Antonia Weiss RN BSN Scarf Gluer [phone]. [facility] History of Present illness Narrative* Codie Soto MD - 11/12/2022 10:45 AM EDT Images from the original note were not included. 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 The patient is accompanied by her Marciano (2nd ), and her daughter Beena. Subjective History of Present Illness: 57YOF who has CAD, and has had 4 stents, the 1st 2 were done 4 years ago, and the last one was done in May 2022. On the day of the last coronary artery stent, she had a sudden sensation that something was wrong, as she said she became suddenly dyslexic. On further questioning, she was having what appears to have aphasia in the form of word finding difficulty, as well difficulty reading, she says that whatever she would read she could not understand the witting, and she also felt off mentally, meaning somewhat confused. No define LOC/passing out/nor syncope. Another symptom she noted is that she cannot see out of the right side of her peripheral vision,a dthis has continued like that. She saw her eye doctor she said and is the one who noticed also the visual field deficit ( I do nothave those records for my review). On 06/08/22, she sima to [facility] for the above issues. She saw cerebrovascular/stroke neurologist Dr. Pro and did extensive work up for possible CVA. On 10/21/22, Dr. Pro based on the MRI from that showed alight progression of the lesion, with the concern that this is a glioma referred the patient to our [facility] [place] for evaluation. Dr. Feliz performed a biopsy on 11/04/22. The pathology is non diagnostic for a brain tumor, a glioma, which is the concern from the radiological perspective as the lesion has progressed in size slightly. The pathology is reported as: FINAL DIAGNOSIS A. Brain, right corpus callosum lesion, stereotactic biopsy - Minute focus of atypical cells in a reactive background; - See comment. B. Brain, right corpus callosum lesion, stereotactic biopsy - Gliosis with scattered macrophages Diagnosis Comment The biopsy shows focal hypercellularity at one corner (less than 5% of tissue submitted) with atypical angulated elongated nuclei and fibrillary background suspicious for glioma. Unfortunately this area is only present on the frozen section slide and is cut through on the resubmitted tissue. It is not present in any of the other slides/block submitted. The remainder of the specimen shows white matter with scattered foamy macrophages and gliosis. Part B shows white matter with scattered macrophages and gliosis but does not have the atypical area noted in frozen section. Immunohistochemical stains performed to help with classification show thefollowing (B1): CD68 highlights scattered macrophages; IDH1 R132H negative (wt); ATRX retained; p53 strong nuclear positivity 10%; Ki-67 proliferative index 1%; BRAF V600E negative (wildtype); H3 K27M negative (wt); H3 K27me3 retained; Luxol fast blue focal mild loss; Neurofilament cocktail with focal decreased axons; GMS negative for fungus; Gram negative for bacteria. FISH for EGFR reported separately. Slides also reviewed by Drs. Maria Luisa Leonardo and Jesu Narvaez who agree. As of today, she has persistent, difficulty both findings work, she still has the visual field deficit, which has extended to the lower quadrant as the initial report was that she had a right superior quadrantanopia. Also, she still feels foggy, meaning not very sharp mentally, yet she is still able to perform her ADL's. She is also having poor sleep. She says that she has been taking a multivitamin for many years, and she stopped them the week prior to the last stents, as per doctors' advice. No weight lost. No change in diet No new medications No similar history of the above No known neurological issue/diseases. She reports that she has bipolar disorder. Heide Dumont RN at 11/12/2022 7:44 AM Patient is a 57 y/o female from [place], [place] with PMH CAD (s/p stent placement- on ASA and Plavix), HTN, Asthma Reason for consult: brain lesion Surgery: 11/04/22- Right sided brain biopsy of corpus callosum lesion Pathology: Minute focus of atypical cells in a reactive background; Gliosis with scattered macrophages. EGFR NOT AMPLIFIED CD68 highlights scattered macrophages; IDH1 R132H negative (wt); ATRX retained; p53 strong nuclear positivity 10%; Ki-67 proliferative index 1%; BRAF V600E negative (wildtype); H3 K27M negative (wt); H3 K27me3 retained; Luxol fast blue focal mild loss; Neurofilament cocktail with focal decreased axons; GMS negative for fungus; Gram negative for bacteria. Neurosurgeon Dr Jovel Radiation oncologist: None Cardiovascular neurology_ Dr Pro AED: None Steroids: Decadron 2mg tablet- tapers to 2mg to twice daily without further instructions Treatment: none Pertinent History: per epic review 57 y/o female admitted to [facility] due to confusion and aphasia on 06/08/22. Recent coronary stent placement and stroke work up included CT and MRI Brain which revealed a faint diffusion restriction in the splenium corpus callosum. More prominent FLAIR change in this area. Some FLAIR changes s ubcortical in right (2) and left (1) white matter without diffusion restriction. She was dischargedhome and a repeated MRI on 07/03/22 showed a corpus callosum splenium nonenhancing expansile lesionwith internal cystic/necrotic foci, grossly stable compared with 06/08/2022 She was seen by vascular neurology- Dr Pro on 08/25/22- fper her notes- elt off since June. noted some changes in her speech and driving. 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 Review of CTA head ->normal cerebrovascular circulation. ECHO - No PFO PLan for repeat MRI , [facility]. Repeat MRI done 09/25/22 showed progression of lesion and she was seen by Dr Jovel on 10/27/22 Ather visit she was still having difficulty reading/writing, balance issues, recall issues and had lost peripheral vision on the Right. She was unable to work or drive. Recommendations made for brain bi opsy s/p 11/04/22- Right sided brain biopsy of corpus callosum lesion MRi Brain 09/25/22 Infiltrative process in the splenium the corpus callosum which, in view of the slight interval progression since the prior studies, would be worrisome for a glioma. MRi Brain 07/03/22 Corpus callosum splenium nonenhancing expansile lesion with internal cystic/necrotic foci, grossly stable compared with 06/08/2022. This is of indeterminate etiology, with considerations including sequela of a 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 process (noting additional patchy foci of signal abnormality in the cerebral white matter) versus other inflammatory, post infectious or cytotoxic process. Note that low-grade neoplasm is not excluded, and continued follow-up is recommended. Heide Dumont, RN, BSN Scarf Gluer [facility] Last Chemo: N/A Current Steroids dose: N/A Current AED Dose: N/A Therapy Status Data Form Past Medical History: PAST MEDICAL HISTORY Diagnosis Date Asthma due to seasonal allergies 11/02/2022 Coronary artery disease Coronary artery disease involving wiyot coronary artery of wiyot heart without angina pectoris 11/02/2022 Gastroesophageal reflux disease without esophagitis 11/02/2022 Primary hypertension 11/02/2022 Seizures (HCC) 11/02/2022 Stroke (HCC) Past Surgical History: PAST SURGICAL HISTORY Procedure Laterality Date CARDIAC SURG PROCEDURE UNLIST 2018 cardiac stents x 2 CHOLECYSTECTOMY HX LIGATE FALLOPIAN TUBE PAST SURGICAL HISTORY OF 05/2022 cardiac stent x 1 PAST SURGICAL HISTORY OF hiatal hernia repair PAST SURGICAL HISTORY OF partial hysterectomy SHOULDER ARTHROSCOPY/SURGERY Right torn rotator cuff TONSILLECTOMY HX Family History: FAMILY HISTORY Problem Relation Age of Onset Anesthesia Problems No Family History No family H/O neurological conditions No H/O brain tumors in family No H/O 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 diseases in the family She has 2 biological daughters who are healthy. Social History Tobacco Use Smoking status: Some Days Packs/day: 0.30 Years: 40.00 Total pack years: 12.00 Types: Cigarettes Smokeless tobacco: Never Tobacco comments: Trying to quit currently Used to smoke a pack per day on average Substance Use Topics Alcohol use: Never Drug use: Never Allergies: Budesonide-Formoterol, Aspirin, Latex, Penicillins, Adhesive Tape-Silicones, Budesonide, and Formoterol Current Outpatient Medications Medication Sig aspirin 81 mg cap Take 81 mg by mouth once daily. [START ON 11/14/2022] clopidogrel (PLAVIX) 75 mg tablet Take 1 tablet by mouth once daily. ondansetron (ZOFRAN) 8 mg tablet Take 1 tablet by mouth every 8 hours as needed for nausea/vomiting. pantoprazole DR (PROTONIX) 40 mg tablet Take 1 tablet by mouth once daily. acetaminophen (TYLENOL) 325 mg tablet 2 tablets by ORAL/FEEDING TUBE route every 4 hours as needed for pain. dexAMETHasone (DECADRON) 2 mg tablet Take 4 tablets in the morning and in the afternoon for 5 days.Take 3 tablets in the morning and in the afternoon for 5 days. Then take 2 tablets in the morning and in the afternoon for 5 days.Then take 1 tablet in the morning and afternoon until directed otherwise. senna-docusate (SENNA-S) 8.6-50 mg per tablet 1 tablet by ORAL/FEEDING TUBE route twice daily. oxyCODONE IR (ROXICODONE) 5 mg immediate release tablet Take 1 tablet by mouth 6 hours as needed. hydroCHLOROthiazide 12.5 mg tablet Take 12.5 mg by mouth once daily. buPROPion XL (WELLBUTRIN XL) 300 mg 24 hr tablet Take 300 mg by mouth every morning. traZODone (DESYREL) 100 mg tablet Take 400 mg by mouth daily at bedtime. topiramate (TOPAMAX) 100 mg tablet TAKE 1 TABLET BY MOUTH TWICE A DAY DIRECTED vilazodone (VIIBRYD) 40 mg tablet Take 40 mg by mouth once daily. losartan (COZAAR) 25 mg tablet Take 25 mg by mouth once daily. metoprolol succinate ER (TOPROL XL) 25 mg 24 hr tablet Take 12.5 mg by mouth once daily. ezetimibe (ZETIA) 10 mg tablet Take 10 mg by mouth once daily. cariprazine (VRAYLAR) 3 mg capsule Take 3 mg by mouth once daily. PRALUENT PEN 75 mg/mL pen albuterol HFA (PROVENTIL HFA, VENTOLIN HFA) 90 mcg/actuation inhaler INHALE 2 (TWO) PUFFS EVERY 4 HOURS NEEDED carBAMazepine (TEGRETOL) 200 mg tablet Take 400 mg by mouth twice daily. sodium chloride 0.9 %, flush, (BD POSIFLUSH) syringe Inject 2-10 mL intravenously as directed. For Echo procedure clonazePAM (KLONOPIN) 0.5 mg tablet TAKE 1 TABLET BY MOUTH TWICE A DAY DIRECTED (Patient not taking: Reported on 10/27/2022) No current facility-administered medications for this visit. Review of systems: Constitutional: No recent fever or weight loss. Eyes: No history of glaucoma or cataracts. ENMT: No recent ear infection, nasal congestion, mouth sores or sore throat. CV: No history of chest pain, palpitations or leg swelling. Respiratory: No history of SOB, asthma or recent cough. Gastrointestinal: No history of nausea, vomiting, dysphagia or abdominal pain. Genitourinary: No history of hematuria or dysuria. Musculoskeletal: No complaint of arthritis, unstable gait or arm/leg weakness. Psychiatric: No history of hallucinations or depression or anxiety. ROS Neurological: No complaint of headache. No complaint of tinnitus. No complaint of decreased hearing. No complaint of diplopia. No complaints of decreased visual acuity. No complaint of arm/leg numbness. No problem with limb coordination. No complaint of syncope, seizures or disorientation. Objective Physical Exam: BP 138/73 Pulse 71 Temp (Src) 98.4 (Oral) Resp 18 Ht 5' 5.984 (1.68m) Wt 184 lb (83.5kg) SpO2 99% BMI 29.71 kg/(m^2). General appearance: well appearing, in no acute distress, alert Head: NC/AT Eyes: clear, anicteric Oropharynx: clear, no lesions Neck: supple, no LAD Lungs: CTA bilaterally, no W/C Heart: RR without murmur noted Abdomen: soft, NT/ND Extremities: warm, no cyanosis or edema Skin: color, texture, and turgor unremarkable. No rashes or lesions. PE Neuro: A&O x3. CN II-XII grossly intact. Motor: appropriate muscle bulk, tone, and strength. Sensorium: grossly intact. Gait: Unremarkable KPS and ECOG Provider Data Form PHQ 2 and 9 Total Scores 06/24/2022 PHQ-2 Score 5 PHQ-9 Score 19 Labs: CBC Latest Ref Rng & Units 11/02/2022 WBC 3.70 - 11.00 k/uL 5.14 RBC 3.90 - 5.20 m/uL 4.62 HEMOGLOBIN 11.5 - 15.5 g/dL 13.9 HEMATOCRIT 36.0 - 46.0 % 40.4 MCV 80.0 - 100.0 fL 87.4 MCH 26.0 - 34.0 pg 30.1 MCHC 30.5 - 36.0 g/dL 34.4 RDW-CV 11.5 - 15.0 % 13.4 PLATELETS 150 - 400 k/uL 206 MPV 9.0 - 12.7 fL 9.1 BASO% % 0.4 ABS NEUT (ANC) 1.45 - 7.50 k/uL 2.70 ABS LYMPH 1.00 - 4.00 k/uL 1.82 ABS MONO <0.87 k/uL 0.52 ABS EOSIN <0.46 k/uL 0.06 ABS BASO <0.11 k/uL <0.03 NRBC /100 WBC 0.0 CMP Latest Ref Rng & Units 11/02/2022 11/05/2022 SODIUM 136 - 144 mmol/L 129(L) 135(L) POTASSIUM 3.7 - 5.1 mmol/L 3.9 3.6(L) CHLORIDE 97 - 105 mmol/L 93(L) 102 CO2 22 - 30 mmol/L 27 25 GLUCOSE 74 - 99 mg/dL 100(H) 100(H) BUN 7 - 21 mg/dL 4(L) 7 CREATININE 0.58 - 0.96 mg/dL 0.93 0.86 EGFR >=60 mL/min/1.73m 73 80 CALCIUM, TOTAL 8.5 - 10.2 mg/dL 9.5 9.0 Final Pathology: \\\ SURGICAL PATHOLOGY: [id number] Order: [id number] Collected 11/04/2022 11:13 AM Status: Final result Visible to patient: No (scheduled for 11/14/2022 1:09 PM) Dx: Glioma (HCC) 0 Result Notes Component FINAL DIAGNOSIS A. Brain, right corpus callosum lesion, stereotactic biopsy - Minute focus of atypical cells in a reactive background; - See comment. B. Brain, right corpus callosum lesion, stereotactic biopsy - Gliosis with scattered macrophages. Diagnosis Comment The biopsy shows focal hypercellularity at one corner (less than 5% of tissue submitted) with atypical angulated elongated nuclei and fibrillary background suspicious for glioma. Unfortunately this area is only present on the frozen section slide and is cut through on the resubmitted tissue. It is not present in any of the other slides/block submitted. The remainder of the specimen shows white matter with scattered foamy macrophages and gliosis. Part B shows white matter with scattered macrophages and gliosis but does not have the atypical area noted in frozen section. Immunohistochemical stains performed to help with classification show thefollowing (B1): CD68 highlights scattered macrophages; IDH1 R132H negative (wt); ATRX retained; p53 strong nuclear positivity 10%; Ki-67 proliferative index 1%; BRAF V600E negative (wildtype); H3 K27M negative (wt); H3 K27me3 retained; Luxol fast blue focal mild loss; Neurofilament cocktail with focal decreased axons; GMS negative for fungus; Gram negative for bacteria. FISH for EGFR reported separately. Slides also reviewed by Drs. Maria Luisa Leonardo and Jesu Narvaez who agree. Laboratory Developed Test (LDT) Disclaimer: Performance characteristics of immunohistochemical, immunofluorescent and chromogenic in-situ hybridization tests have been determined by the performing laboratory within [facility] s [facility] [place] ([facility], [facility], [facility], [facility], [facility], or [facility]) in a manner consistent with CLIA requirements. One or more of these tests have not been cleared or approved by the FDA. [facility] is regulated under CLIA as qualified to perform high-complexity testing. These tests are used for clinical purposes. They should not be regarded as investigational or for research. Positive and negative controls stain appropriately. Gross Description A. BRAIN BIOPSY Received fresh for intraoperative evaluation labeled as right corpus callosum lesion is a whitishoval piece of tissue measuring 5 x 4 x 0.2 cm. Half of the tissue is submitted for frozen section evaluation in FSA 1. The rest of the tissue is submitted for permanent in A2. Gross examination performed at [facility], [facility] [place] [address] 11/04/2022 B. BRAIN BIOPSY Received fresh labeled right corpus callosum lesion are multiple fragments of white-goodson tissue aggregating to 0.6 x 0.5 x 0.2 cm. The specimen is submitted entirely in cassette B1. Gross examination performed at [place] [id number] JXM/DANIELE 11/04/22 12:21 PM Intraoperative Diagnosis A. 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 (Dr. Narvaez). Intraoperative diagnosis performed at [place] [id number] [place] 11/04/2022 Clinical History Pre-op diagnosis: Glioma (HCC) [C71.9] Performing Lab Diagnostic interpretation performed at [facility], [address] [place], [place] [address] CLIA# [id number] Dross Skimmer: Jasen Rivera M.D. Resulting Agency [facility] Specimen Collected: 11/04/22 11:13 AM EDT Last Resulted: 11/09/22 1:09 PM EDT Order Details View Encounter Lab and Collection Details Routing Result History View All Conversations on this Encounter Scans on Order [id number] Document on 11/09/2022 1:09 PM by Anusha Thomas MD Result Care Coordination Patient Communication 11/14/2022 1:09 PM Release Now Not seen Back to Top FISH FOR EGFR: [id number] Order: [id number] - Reflex for Order [id number] Collected 11/04/2022 11:22 AM Status: Final result Visible to patient: Yes (seen) Dx: Glioma (HCC) 0 Result Notes Component FISH FOR EGFR FISH for EGFR Laboratory Accession Number: [id number] Case: [id number] Block: B1 Sample Type: FFPET Sample Description: BRAIN BIOPSY, RIGHT CORPUS CALLOSUM LESION Received Date: 11/06/2022 RESULTS: EGFR NOT AMPLIFIED Number of nuclei scored: 40 INTERPRETATION: Negative for amplification of the EGFR gene. Clinical and pathological correlation is recommended. The following FISH results were obtained: EGFR: 1.78 CEP7: 2.15 EGFR/CEP7 ratio: 0.83 (Reference Range: Amplified >2.00) COMMENT: A combination of genetic signature and histology stratifies lower- grade gliomas better than histology alone. IDH-wildtype infiltrating or diffuse astrocytomas with EGFR amplification are predicted to follow an aggressive clinical course resembling that of IDH-wildtype glioblastoma. Reference: Néstor JACOME et al. cIMPACT-NOW update 3: recommended diagnostic criteria for Diffuse astrocytic glioma, IDH- wildtype, with molecular features of glioblastoma, WHO grade IV. Acta Neuropathol. 2018 Nov;136(5):805-810. METHODOLOGY: Amplification of the Epidermal Growth Factor Receptor (EGFR) gene was evaluated with interphase fluorescence in situ hybridization (FISH) on formalin-fixed paraffin embedded tissue sections using the LSI EGFR (7p11.2) and chromosome 7 centromere (CEP 7) probes ([employer], [place], [place]). The slides were scored manually. LIMITATIONS: This test will not identify all rearrangements involving EGFR. Rare, cryptic abnormalities may be below the resolution of the assay, or may otherwise be undetected. Specimen size, quality or representativeness can affect the quality of the result. This assay has been validated for tissues fixed with 10% neutral buffered formalin. Decalcification agents and fixation agents containing heavy metals, e.g. B5, or harsh acid or base components (e.g. Bouin's solution) can adversely impact assay performance. DISCLAIMER: This test was developed and its performance characteristics determined by the [facility]'s [facility] [place] ([facility]). It has not been cleared or approved by the FDA. [facility] is regulated under CLIA as qualified to perform high- complexity testing. This test is used for clinical purposes. It should not be regarded as investigational or for research. Interpretation performed at [facility], [address] [place], [place] [address]. CLIA Number: [id number] As reviewed by Mayra Louis MD, PhD Resulting Agency [facility] Specimen Collected: 11/04/22 11:22 AM EDT Last Resulted: 11/09/22 3:26 PM EDT Order Details View Encounter Lab and Collection Details Routing Result History View All Conversations on this Encounter Result Care Coordination Patient Communication Add Comments Seen Back to Top Specimen Collection Information ID Source Type Collected By Time Frozen A BRAIN BIOPSY Tissue Carlos Jovel MD 11/04/22 1113 Yes Description: right corpus callosum lesion B BRAIN BIOPSY Tissue Carlos Jovel MD 11/04/22 1122 No Description: right corpus callosum lesion Additional Information Diagnosis codes: Glioma (HCC) [C71.9] Comments: Pre-op diagnosis: Glioma (HCC) [C71.9] Scanned Documents Result Information Status: Final result (Resulted: 11/09/2022 1:09 PM) Provider Status: Open Questions Order Question Answer Source of specimen(s): Clinical History SURGICAL PATHOLOGY (Order [id number]) FISH FOR EGFR (Order [id number]) - Reflex for Order [id number] Patient Release Status: This result is scheduled for release on 11/14/2022 1:09 PM. Routing History Priority Sent On From To Message Type 11/09/2022 3:26 PM Lab, Background User Anusha Thomas MD Results 11/09/2022 1:09 PM Lab, Background User Carlos Jovel MD Results 11/09/2022 1:09 PM Lab, Background User Triston Guy MD Results View [employer] Info SURGICAL PATHOLOGY (Order #[id number]) on 11/04/22 CAP/CLIA/Joint Commission Regulatory Result Report SURGICAL PATHOLOGY (Order #[id number]) on 11/04/22 SURGICAL PATHOLOGY: Patient Communication 11/14/2022 1:09 PM Release Now Not seen Imaging: MRI Report MRI BRAIN LOCALIZATION WO/W IVCON Exam End: 11/02/2022 12:46 PM (Final result) Narrative: * * *Final Report* * * DATE OF EXAM: Nov 02 2022 12:46PM QBM [id number] - MRI BRAIN LOCAL WO/W IVCON / PROCEDURE REASON: Glioma (HCC) * * * * Physician Interpretation * * * * EXAMINATION: MRI BRAIN LOCAL WO/W IVCON CLINICAL HISTORY: Glioma. TECHNIQUE: High resolution, gadolinium enhanced axial gradient echo volume acquisition was performed of the head for preoperative localization. Supplemental: DTI Contrast: 17 mL Dotarem IV COMPARISON: MRI brain 09/25/2022 and 07/03/2022, outside hospital MRI 06/08/2022 RESULT: Preprocedural localization images demonstrating confluent T2/FLAIR hyperintensity within the splenium of the corpus callosum with a central small cystic focus in the midline. No enhancement following contrast administration. No restricted diffusion. No additional lesions. No mass effect, midline shift or acute herniation. Normal and unchanged caliber the ventricular system. No pathologic enhancement elsewhere within the brain. The ocular globes and orbital soft tissue planes are grossly within normal limits. Paranasal sinuses are clear. Trace fluid in the mastoid tips. Impression: IMPRESSION: Localization exam with redemonstration of infiltrative process in the splenium of the corpus callosum concerning for glioma. Physical Chemistry Teacher: RHIANNON Transcribe Date/Time: Nov 02 2022 1:10P Dictated by : SHANTANU PIERSON MD This examination was interpreted and the report reviewed and electronically signed by: KERRI HOYT DO on Nov 02 2022 2:08PM EST Assessment & Plan 57 YO RHF who presents back at the end of May 2022, with acute, language dysfunction, visual field deficit and likely alexia, which occur on the day of a cardiovascular procedure, coronary arterystent placement with a brain MRI that reveals a splenium of the corpus callosum abnormality. A follow up MRI 09/25/22 revealed that the SCC lesion has slightly progressed in size. Her stroke neurologist Dr. Pro felt that this crawley not fit with a stroke and because the neuroradiology reading suggest that this could e a glioma, she referred the patient to our [facility] [place] for evaluation, On 11/02/22, she had a biopsy by Dr. Jovel, neurosurgereon at the [facility]. The pathology is basically non diagnostic. Symptomatically the patient remains with some language dysfunction, mainly word finding difficulty,right visual field deficit, and likely alexia. DISCUSSION: With the constellation of signs and symptoms, including, aphasia., mainly word finding difficulty, dyslexia, confusion, and visual field deficit on the right in the context of a lesion in the SC, this suggests highly a disconnecting syndrome. -Alexia: The patient's description of inability it understands written word is likely alexia, whichcan be seen in disconnecting syndromes, and seen in lesion of the SCC. Typically seen in a lesion of the occipital lobes but also seen in lesions of the SCC. 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 There are reports of this manifestation as published by Arelis Petit et al (1) where they described a patient with SCC infarct and HH, In this paper their conclusion is a follows (excerpt/verbatim from the publication: We hypothesized that right homonymous hemianopsia was caused by an interrupted transfer of visual information at the splenium of the CC across the hemispheres. In other words, we hypothesized that the visibility would not be defined only in the unilateral striate cortex, but also in the bilateral cortexes across the hemispheres. Aphasia: According to the literature splenium of the corpus callosum lesions can cause cognitive problems, change in behavior, confusion even seizures, including aphasia as reported in the literature. I think that the constellation of symptom could be explained by the location of the lesion, and thefact that the lesion persists radiologically and clinically, suggest that the lesion has not improved and slightly progressing as reported in the MRI from 09/25/22, when compared to the MRI from 07/03/2022 and 06/08/2022. Regarding the etiology of the lesion: The pathology was not conclusive. The initial working diagnosis because of the acute/subacute presentation and in the context that occurred on the day of a vascular procedure, coronary artery stent, a CVA was considered for which thepatient saw cerebrovascular/stroke neurology Dr. Pro. She had CVA work up. However, because of the MRI from 09/25/22, showed slight progression of the lesion, the differential radiological diagnoses was narrowed to possible glioma. Her stroke neurologist Dr. Pro has deemed that this is not astroke and referred her to the [facility] [place] and had a biopsy by Dr. Feliz on 11/04/22, and as I said the pathology is not diagnotic. Considering the presentation the differential diagnosis is: -STROKE Other possibilities: -Glioma -Unlikely encephalitis in light of the timeline, but an indolent encephalitis can still be possible -Venous infarct (6) -Demyelination - due to MS, unlikely due to age but can be seen, and or other inflammatory 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 entities. -Paraneoplastic syndrome. Differential diagnosis from a publication by AJR: Lipoma Glioma: low grade or high grade Lymphoma Juvenile Pilocytic Astrocytoma Demyelinating Diseases -Multiple Sclerosis Progressive Multifocal Leukoencephalopathy Marchiafava-Bignami Disease - unlikely S she does no drink ETOH in large amounts. Infarction - see above. Arteriovenous Malformations - had a CTA by Dr. Pro and showed no abnormalities. Trauma Susac Syndrome (SS) (From [employer] (excerpt/verbatim). SS is a presumed to be caused by autoimmune endotheliopathy , resulting in microinfarcts of the precapillary arterioles of the brain, retina, and inner ear (cochlea and semicircular canals).[2][3] The exact mechanism is unclear, but pathogenesis does resemble the microinfarction of muscle and skin seen in juvenile dermatomyositis. Susac syndrome (SS)) is a rare condition characterized by the clinical triad of encephalopathy, branch retinal artery occlusion (BRAO), and sensorineural hearing loss. However, all three features may not be present concurrently upon initial presentation. This condition may also be referred as small infarctions of cochlear, retinal, and encephalic tissue (SICRET), microangiopathy with retinopathy, encephalopathy, and deafness (RED- M), and retinocochleocerebral vasculopathy.[1][2] Unlikely that the patient has Susac Syndrome, as she does not meet the clinical triad, however thisis still in the differential. After the biopsy the diagnosis is till elusive, and the differential diagnosis from my perspective remains as above, as I cannot exclude a possible entity for sure. 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 I will refer the patient to se Dr. Carrizales who is also a neurologist. Other colleagues that I think will be valuable for her care would be neuro- immunology to get their input as to a possible neuro immunological explanation for her presentation. Neuro ID input would be also helpful. Of course, o follow will with Dr. Pro and I would welcome her continued input, in light that per pathology there is no evidence of glioma. As her case is set to be presented to Brain Tumor Board today, I will wait for any further commentsfrom neuropathology that could shed a better light to the etiology of this lesion. I will also welcome the multidisciplinary input. In the interim Mrs. Landis should have a short interval MRI to define whether this lesion is progressing or regressing. Her last brain MRI is from . REFERENCES: 1-Barber Zuleta Niizuma H, et al. 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 Cureus 13(69): v17709. doi:10.7759/cureus.24577), 2-Graham Paul eta al. Clinical features of acute corpus callosum infarction patients. Int J Clin Exp Pathol. 2014; 7(8): 9093-0295. 3-Damari Guerrero. 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 Brain Behav. 2019 Mar;9(11): q90775. 4-Conradobianca Cook and Holly Ley. 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 BMJ Case Rep. 2014; 2014: [id number]. 5-Fadi Miranda et al. Alexia Without Agraphia: A Rare Entity. Cureus. 2017 Chon; 9(6): e1304. 6-Lewis Sullivan MD; Ruchi Torre MD. Splenium Infarct Due to Cerebral Venous Thrombosis. Arch Neurol. 2007;64(10):1540. 7-paris Bermudez al. Lesions of the Corpus Callosum: MR Imaging and Differential Considerations in Adults and Children. 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 PLAN: -Splenium of the corpus callosum lesion, etiology unclear: -her case, pathology, will be reviewed at Brain Tumor Board today 11/12/22. -Virtual visit the following week to go however the BT Board consensus with he patient/family. -MRI of the brain in 1 month time from the last one done in 11/02/22. -Clinic visit after the MRI of the brain early December. -Follow with Dr. Pro from cerebrovascular/stroke neurology -Follow with her project control manager for her CAD, S/p coronary artery stents -Follow with her PCP for general medical care/coordination of care, Dr. Cool. -No to drive a car or any other motorized vehicle, and not to engage in activities that could placeher at risk to her and or others of injury is she were to have episodes of confusion. 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 For now, as she had episodes of conduction which have not been clarified yet, also she has a visual field deficit on the right. Her driving privileges to be resumed depending on her progress/entities found. In the end the patient and family verbalized understanding of the above, they had questions which Ibelieve I answered to their satisfaction and agreed with these recommendations and had no further questions or concerns for the moment, but I encourage them to call the [facility] Center with any questions or concerns. I spent a total of 91 minutes on the date of the service which included preparing to see the patient, at least 50% of [id number] patient care, completing clinical documentation, obtaining and/or reviewing separately obtained history, performing a medically appropriate examination, counseling and educating the patient/family/caregiver, ordering medications, tests, or procedures, communicating with other HCPs (not separately reported), independently interpreting results (not separately reported), communicating results to the patient/family/caregiver and care coordination (not separately reported). Codie Soto MD Staff Neuro-Oncologist [facility] [place], [place] CC: CC -Carlos Jovel MD, Neurosurgery, [facility], [facility], [facility] CC: Rad Pro, DO\, Vascular Neurology, [facility] CC: Dr. Solis Cool, DO [address] [facility] [address] [facility] [id number] documented in this encounterCincinnati [facility]07-13-[facility] Nurse Note* Janel Benson Ma - 11/12/2022 9:59 AM EDT Reviewed and confirmed with patient that there were no changes in the the nursing assessment and vitals that were completed on November 12, 2022 during previous provider appointment. Janel Benson Ma documented in this encounterCincinnati Children'[facility]07-13-2023 Nurse Note* Janel Benson Ma - 11/12/2022 9:54 AM EDT Additional intake questions: Has the patient had fever, nausea, vomiting, diarrhea, constipation, fatigue for > 1 week? No Does the patient have a decreased appetite? No Does patient want to see a Bundle Breaker? No (yes to any of above refer patient to schedulers for dietitian appointment) ) Does patient have any new or increased numbness or tingling of extremities? No Is patient interested in fertility information? No Does patient need any prescription refills? No Does patient have an advanced directive in place? No, Patient referred to Resource Center documented in this encounterCincinnati [facility]07-13-2023 History of Present illness Narrative* Heide Dumont RN - 11/12/2022 7:44 AM EDT Patient is a 57 y/o female from [place], [place] with PMH CAD (s/p stent placement- on ASA and Plavix), HTN, Asthma Reason for consult: brain lesion Surgery: 11/04/22- Right sided brain biopsy of corpus callosum lesion Pathology: Minute focus of atypical cells in a reactive background; Gliosis with scattered macrophages. EGFR NOT AMPLIFIED CD68 highlights scattered macrophages; IDH1 R132H negative (wt); ATRX retained; p53 strong nuclear positivity 10%; Ki-67 proliferative index 1%; BRAF V600E negative (wildtype); H3 K27M negative (wt); H3 K27me3 retained; Luxol fast blue focal mild loss; Neurofilament cocktail with focal decreased axons; GMS negative for fungus; Gram negative for bacteria. Neurosurgeon Dr Jovel Radiation oncologist: None Cardiovascular neurology_ Dr Pro AED: None Steroids: Decadron 2mg tablet- tapers to 2mg to twice daily without further instructions Treatment: none Pertinent History: per epic review 57 y/o female admitted to [facility] due to confusion and aphasia on 06/08/22. Recent coronary stent placement and stroke work up included CT and MRI Brain which revealed a faint diffusion restriction in the splenium corpus callosum. More prominent FLAIR change in this area. Some FLAIR changes s ubcortical in right (2) and left (1) white matter without diffusion restriction. She was dischargedhome and a repeated MRI on 07/03/22 showed a corpus callosum splenium nonenhancing expansile lesionwith internal cystic/necrotic foci, grossly stable compared with 06/08/2022 She was seen by vascular neurology- Dr Pro on 08/25/22- fper her notes- elt off since June. noted some changes in her speech and driving. 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 Review of CTA head ->normal cerebrovascular circulation. ECHO - No PFO PLan for repeat MRI , [facility]. Repeat MRI done 09/25/22 showed progression of lesion and she was seen by Dr Jovel on 10/27/22 Ather visit she was still having difficulty reading/writing, balance issues, recall issues and had lost peripheral vision on the Right. She was unable to work or drive. Recommendations made for brain bi opsy s/p 11/04/22- Right sided brain biopsy of corpus callosum lesion MRi Brain 09/25/22 Infiltrative process in the splenium the corpus callosum which, in view of the slight interval progression since the prior studies, would be worrisome for a glioma. MRi Brain 07/03/22 Corpus callosum splenium nonenhancing expansile lesion with internal cystic/necrotic foci, grossly stable compared with 06/08/2022. This is of indeterminate etiology, with considerations including sequela of a 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 process (noting additional patchy foci of signal abnormality in the cerebral white matter) versus other inflammatory, post infectious or cytotoxic process. Note that low-grade neoplasm is not excluded, and continued follow-up is recommended. Heide Dumont RN, BSN [facility] documented in this encounterCincinnati Children'[facility]07-07-2023 Miscellaneous Notes* Telephone Encounter - Antonia Weiss RN - 11/06/2022 9:46 AM EDT Spoke with both Josie and Marciano. She is doing well, ambulating. Incision looks good no redness, edema or drainage. They are concerned that she was only sent home with 8 pain pills and what if they run out over the weekend. At this time Josie states that she really doesn't have pain it is more like a pressure sensation. I encouraged her to try Tylenol first and if that doesn't work then take thepain medication. I explained that she shouldn't be expecting severe pain from her biopsy site. I told both Marciano and Josie that if the pain becomes severe over the weekend then they would have to goto the nearest emergency room to have the incisional area looked at and maybe repeat a CT scan. Both Josie and Marciano verbalized understanding and agreement with this plan and once again Josie stated she is not having severe pain just pressure but they are just worried if somethiing would happen over the weekend. * Telephone Encounter - Zeeshan Hart - 11/06/2022 8:19 AM EDT General Call Caller : Patients Marciano Contact Reason for Call : patient worried about running out of pain pills during the weekend. Would like another prescriptions in case she needs it. Patient requesting return call ? Yes documented in this encounterCincinnati [facility]07-03-2023 History of Present illness Narrative* Antonia Weiss RN - 11/02/2022 3:26 PM EDT Patient education Worksheet- Neurosurgery Scheduled date of Surgery: 11/04/2022 Patient readiness to learn Motivation to learn: Eager Support: High Cognitive ability: Alert and oriented Influencing factors: None Physical limitations: None Learning preferences Patient learns best by: Indiviual instruction using multiple methods Instructions provided to: Patient and Learning response Discipline: Nursing Diagnosis: Brain Tumor Procedure/Surgery: Right Stereotatic Brain Biopsy with Bilateral Bone Fiducials. Content Survival Skills: Yes Lifestyle Changes No Health Promotion: No Patient evaluation: Verbalizes understanding Follow up plan: Complete No need for follow up The following materials were reviewed with the patient and family at this visit and were given in written form to the patient in a folder at a previous visit. -Booklet, Pamphlet and Your Surgical Guide -[facility] Post-operative Instructions Craniotomy/Biopsy -[facility] Teaching sheet for Deep Vein Thrombosis (DVT) -FAQ's about Surgical Site Infections [id number] Genetic and Molecular Analysis of Tumors of the Central Nervous System and their Coverings. A copy of the consent form was given to patient on 11/02/22 Discussed with patient and family all risks, benefits, and alternatives with good understanding. Questions concerning enrollment were answered. Patient has read the informed consent. Patient states understanding and has agreed to participate on 11/04/22 at 10am. Informed consent obtained and copy given to the patient. Antonia Weiss RN BSN Scarf Gluer [phone]. documented in this encounterCincinnati Children'[facility]07-03-2023 History of Present illness Narrative* Sandrine Gooden RN - 11/02/2022 12:20 PM EDT Radiology Service Progress Note DATE OF SERVICE: November 02, 2022 TIME: 12:04 PM PATIENT WEIGHT: 171LBS PATIENT IDENTITY VERIFICATION COMPLETED USING TWO (2) STANDARD IDENTIFIERS: Name and Date of confirmed by patient verbally and Name and Date of confirmed by identification band. FALL SCREENING: Has the patient had 2 falls in the last year or 1 fall with injury or currently using an Ambulatory Assistive Device (Walker, Cane, Wheelchair, Crutches, etc.)? No PATIENT GENDER DATA: Female. status: : No status: NO. ALLERGIES: Reviewed and unchanged CONTRAST ALLERGY: No EXAM: MRI - CONTRAST TYPE: GROUP II IV SITE: Ambulatory: A peripheral IV was started in the Left antecubital site with a Angio cath: 22gauge. IV SITE APPEARANCE: Clean,Dry and Intact SIGNATURE: Snadrine Gooden RN PATIENT NAME: Josie Landis DATE: November 02, 2022 TIME: 12:04 PM documented in this encounterCincinnati Children'[facility]07-03-2023 Instructions* Patient Instructions* Allison Shankar PA-C - 11/02/2022 11:00 AM EDT PATIENT PREOPERATIVE INSTRUCTIONS Carlos Jovel MD has scheduled you for your procedure at this surgery center: [facility] [place] Scheduling Office: [phone] --[address] [place] [address]. Please read below carefully for your personalized instructions. Dietary Restrictions: - No solid food after midnight. - You may have 12 ounces of clear liquids (water, clear juices such as apple juice or gatorade, carbonated beverages, clear tea, black coffee, jello) until 2 hours before scheduled arrival at facility. Medications: Unless instructed differently below, stay on all of your medications until your surgery. Approved medications to take the morning of surgery with a sip of water: Bupropion (Wellbutrin), Carbamazepine (Tegretol), Metoprolol (Toprol), Ondansetron (Zofran), Pantoprazole (Protonix), and Topiramate (Topamax) Hold Losartan the morning of surgery and the day before surgery. If you start any new medications after today's visit, please contact the surgeon's office. Blood Thinning Medications: - Stop NSAIDS (Ibuprofen, Advil, Aleve, Motrin, Celebrex, Mobic, etc.) 7 days before surgery, as directed by your surgeon. - Stop Aspirin 7 days before surgery, as directed by your surgeon. - Stop Vitamin E, ALL multi-vitamins, herbals and dietary supplements 7 days before surgery. - You may take Tylenol (Acetaminophen) or any of your pain medications that do not contain aspirin or NSAIDS as needed. Important Reminders: - Candy, mints, and tobacco products are NOT permitted the morning of surgery. - Hearing aids, dentures and glasses may be worn the morning of surgery. - NO jewelry, body piercings, makeup, hairpins or contacts are to be worn the day of surgery. If you develop symptoms such as a fever, cold, or flu, or have other changes to your health within TWO DAYS of scheduled surgery or the morning of surgery, please contact the surgery center above. Personal Belongings: -Please have photo ID and insurance cards. -If you do not have a copy of advance directives on file with us, please bring a copy with you on the day of surgery. - Leave ALL valuables and money at home or with family members. For Outpatient Procedures: - YOU MUST HAVE A RESPONSIBLE PRODUCTION MECHANIC TIN CANS TAKE YOU HOME. A PACKAGE CLERK OR BUSINESS SERVICES SPECIALIST SALES CANNOT BE MADE A RESPONSIBLE PRODUCTION MECHANIC TIN CANS. - We recommend that a responsible person stays with you overnight to take care of you. - You cannot stay in a hotel alone after outpatient surgery. You will not be permitted to have yoursurgery, if you do not have someone to take care of you. Arrival Time for Surgery: - To obtain your arrival time for surgery, call your physician's office the day before your surgery. - If your surgery is scheduled for Wednesday, call the Wednesday before. Your surgeon s scheduler conveyor will tell you what time to call the office. - If you have not reached the departmental scheduler conveyor by 5 P.M., call [phone] after 5 P.M. the day before your surgery. Please be aware that emergency situations arise, which may delay or change your surgical time. If this happens, we will notify you as soon as possible and regret any inconvenience. If you already have an Advance Directive, please fax a copy to [phone] or email to for it to be added to your chart. If you do not have an Advance Directive, you can find the appropriate form and more information at [email or web address]. We recommend that youcomplete the Advance Directive form found on the website and bring it with you the day of your surgery. It can be witnessed and scanned into your chart that day. Allison Shankar PA-C documented in this encounterCincinnati Children'[facility]07-03-2023 History and physical note * Allison Shankar PA-C - 11/02/2022 10:22 AM EDT Images from the original note were not included. HISTORY AND PHYSICAL EXAMINATION SERVICE DATE: 11/02/2022 SERVICE TIME: 10:41 AM PRIMARY CARE PHYSICIAN: Solis Cool DO, DO REASON FOR VISIT: Josie Landis is a 57 year old female who is scheduled for BIOPSY INTRACRANIAL LESION STEREOTACTIC W/ PATSY HOLE AND CT at the request of Dr. Carlos Jovel for consultation. My final recommendation will be communicated back to the requesting physician by way of shared medical record or letter. The patient has the following: ACTIVE PROBLEM LIST Primary Hypertension Seizures (Hcc) Asthma Due to Seasonal Allergies Coronary Artery Disease Involving [place] Coronary Artery of [place] Heart Without Angina Pectoris Gastroesophageal Reflux Disease Without Esophagitis Subjective CHIEF COMPLAINT: Glioma HPI: Josie Landis is a 57 year old female who presents to [facility] today for preop exam. Patient is scheduled for the above procedure on 11/04/22. Patient began having confusion and aphasia in 06/2022. She presented to ED and brain MRI showed a lesion. Denies fevers, chills, chest pain, and SOB. PAST MEDICAL HISTORY Diagnosis Date Asthma due to seasonal allergies 11/02/2022 Coronary artery disease Coronary artery disease involving wiyot coronary artery of wiyot heart without angina pectoris 11/02/2022 Gastroesophageal reflux disease without esophagitis 11/02/2022 Primary hypertension 11/02/2022 Seizures (HCC) 11/02/2022 Stroke (HCC) PAST SURGICAL HISTORY Procedure Laterality Date CARDIAC SURG PROCEDURE UNLIST 2018 cardiac stents x 2 CHOLECYSTECTOMY HX LIGATE FALLOPIAN TUBE PAST SURGICAL HISTORY OF 05/2022 cardiac stent x 1 PAST SURGICAL HISTORY OF hiatal hernia repair PAST SURGICAL HISTORY OF partial hysterectomy SHOULDER ARTHROSCOPY/SURGERY Right torn rotator cuff TONSILLECTOMY HX FAMILY HISTORY Problem Relation Age of Onset Anesthesia Problems No Family History SOCIAL HISTORY: Social History Tobacco Use Smoking status: Some Days Packs/day: 0.30 Years: 40.00 Pack years: 12.00 Types: Cigarettes Smokeless tobacco: Never Tobacco comments: Trying to quit currently Used to smoke a pack per day on average Substance Use Topics Alcohol use: Never Drug use: Never Prior to Admission medications as of 11/02/22 1047 Medication Sig Last Dose Taking hydroCHLOROthiazide 12.5 mg tablet Take 12.5 mg by mouth once daily. Taking Yes aspirin 81 mg cap Take by mouth. Taking Yes buPROPion XL (WELLBUTRIN XL) 300 mg 24 hr tablet Take 300 mg by mouth every morning. Taking Yes clopidogrel (PLAVIX) 75 mg tablet Take by mouth. Taking Yes pantoprazole DR (PROTONIX) 40 mg tablet Take 40 mg by mouth once daily. Taking Yes traZODone (DESYREL) 100 mg tablet TAKE 3 TABLETS BY MOUTH EVERY DAY AT BEDTIME Taking Yes topiramate (TOPAMAX) 100 mg tablet TAKE 1 TABLET BY MOUTH TWICE A DAY DIRECTED Taking Yes vilazodone (VIIBRYD) 40 mg tablet TAKE 1 TABLET BY MOUTH EVERY DAY WITH A MEAL Taking Yes ondansetron (ZOFRAN) 8 mg tablet Take 8 mg by mouth. Taking Yes losartan (COZAAR) 25 mg tablet Take 25 mg by mouth once daily. Taking Yes metoprolol succinate ER (TOPROL XL) 25 mg 24 hr tablet Take by mouth. Taking Yes ezetimibe (ZETIA) 10 mg tablet Take 10 mg by mouth once daily. Taking Yes VRAYLAR 1.5 mg capsule Take 1.5 mg by mouth once daily. Taking Yes PRALUENT PEN 75 mg/mL pen Taking Yes albuterol HFA (PROVENTIL HFA, VENTOLIN HFA) 90 mcg/actuation inhaler INHALE 2 (TWO) PUFFS EVERY 4 HOURS NEEDED Taking Yes carBAMazepine (TEGRETOL) 200 mg tablet Take 400 mg by mouth twice daily. Taking Yes sodium chloride 0.9 %, flush, (BD POSIFLUSH) syringe Inject 2-10 mL intravenously as directed. For Echo procedure Taking Yes clonazePAM (KLONOPIN) 0.5 mg tablet TAKE 1 TABLET BY MOUTH TWICE A DAY DIRECTED Patient not taking: No sig reported Not Taking Bacillus subtilis-inulin 1.5 billion cell-1 gram chew Take by mouth. Patient not taking: Reported on 11/02/2022 Not Taking No medication comments found. ALLERGIES Allergen Reactions Budesonide-Formoter* Other: See Comments Aspirin Other: See Comments Latex Other: See Comments Penicillins Other: See Comments Adhesive Tape-Silic* Other: See Comments Budesonide Other: See Comments Formoterol Other: See Comments COVID VACCINATION STATUS: Not vaccinated REVIEW OF SYSTEMS: PAIN ASSESSMENT: General: No weight loss, malaise or fevers. Neuro: Negative for Stroke-residual deficit Impaired Sensorium +glioma - see HPI, +trauma induced seizures - last one ~2 years ago Respiratory: Negative for COPD, Current cough, Dyspnea, Pneumonia within 6 weeks (date), URI < 2weeks +asthma related to seasonal allergies Cardiovascular: Negative for Recent [place], Angina, Arrhythmia, Chest Pain, CHF, PVD, Valvular Heart Disease, DVT/PE +HTN, +HLD, +CAD - 3 stents total, on Plavix and ASA 81mg, [facility] GI: Negative for Nausea, Vomiting, Abdominal pain, Liver disease, ETOH > 2 drinks / day +GERD : No history of dysuria, frequency or incontinence,, stones or chronic kidney disease [employer]: Negative for abnormal vaginal bleeding, abnormal vaginal discharge. : Denies, No LMP recorded. Patient has had a hysterectomy. Endocrine: No history of diabetes. Has not taken steroids within the past 30 days. No history of endocrinological symptoms or problems. Hematology: No history of bleeding or clotting disorder. Pt is not taking anti- coagulation or platelet medications. No history of hematological symptoms or problems. Oncology: No history of CA metastasis, chemo within 30 days, or radiotherapy within 90 days. Has not lost 10% of body wt in 6 months. No history of oncological symptoms or problems. Psych: Bipolar disorder Musculoskeletal: Negative for joint pain or swelling, back pain or muscle pain. Skin: Negative for lesions, rash and itching. Objective PHYSICAL EXAM: VITALS: BP 114/74 Pulse 63 Temp (Src) 97.4 (Temporal) Ht 5' 7.5 (1.72m) Wt 182 lb 9.6 oz (82.8kg) SpO2 98% BMI 28.16 kg/(m^2). General: Alert and oriented, No acute distress, Healthy appearance Skin: Normal color, no rash, no lesions. HEENT: EOM, pupils equal, round and reactive., No carotid bruits Cardiovascular: Normal S1 & S2, no rubs, murmurs or gallops. No JVD. Pulse regular. Lungs: Normal breath sounds, no wheezes or crackles. Abdomen: Positive bowel sounds Extremities: No deformity, no edema or tenderness, no joint swelling or clubbing. Neurological: Normal cognition and motor skills. Gait normal. No weakness or sensory deficit. Pulses: Radial pulses normal +2. Diagnostic tests reviewed for today's visit: Lab Value Units Date High Low HB No results within date range. HCT No results within date range. WBC No results within date range. PLT No results within date range. NA No results within date range. K No results within date range. GLUC No results within date range. BUN No results within date range. CREAT No results within date range. PTSEC No results within date range. INR No results within date range. APTT No results within date range. ALT No results within date range. AST No results within date range. TBILI No results within date range. TSH No results within date range. Lab Value Units Date High Low HCGQT No results within date range. UHCG No results within date range. HCG, BODY* No results within date range. Lab Value Units Date High Low ABORHD No results within date range. ABSCREEN No results within date range. No results found for: HBA1C EKG 11/02/22 - prelim Diagnosis: NORMAL SINUS RHYTHM NORMAL ECG Echo 10/22/22 - found in My chart message from patient 10/27/22 Assessment/Plan Primary hypertension -controlled with Metoprolol, HCTZ, and Losartan -BP in office today 114/74 Seizures (HCC) -per patient they are trauma induced -last seizure was ~2 years ago -on Tegretol for bipolar disorder Asthma due to seasonal allergies -uses Albuterol inhaler PRN in the fall -denies new or worsened SOB, cough or wheezing Coronary artery disease involving wiyot coronary artery of wiyot heart without angina pectoris -s/p stents x 2 in 2018 -s/p re-stenting of previously stented area in 05/2022 -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 ASA Class: 3 ANESTHESIA FINDINGS: Intubation History: No history of difficult intubation Significant Anesthesia Considerations: Post op chills and cough PONV Airway Exam: General: Normal appearance Mallampati Score is CLASS III ULBT: Class I - Lower incisors can bite the upper lip above the sam line Neck: Normal appearance and function, Distance from hyoid to mentum during neck extension is at least 3 finger breaths Mouth: Normal tongue size and Mouth opening greater than 2 finger breaths Dentition: Removable Upper denture, fixed lower denture Airway History: No abnormal airway history Sleep Apnea Probability Snores loudly: No Tired, fatigued or sleepy in daytime: Yes Stops breathing or choking/gasping during sleep: No High blood pressure: Yes Sleep Apnea Probability Score 06/24/2022 Sleep Apnea Screen V2 20 (Sleep study not recommended) PLAN This patient is optimally prepared for surgery pending LABS. CONSULTS: Patient does not require consults for optimization at this time. The Following Tests/Procedures Have Been Initiated: EKG ordered CBC and BMP ordered by surgical service Planned Anesthetic: Per anesthesia choice Instructions Given to Patient: Instructions located in the after visit summary. Patient given verbal and written preop instructions and voices comprehension and compliance. SIGNATURE: Allison Shankar PA-C PATIENT NAME: Josie Landis DATE: November 02, 2022 TIME: 10:22 AM documented in this encounterCincinnati [facility] Nurse Note* Jenni Strong MA - 11/02/2022 9:10 AM EDT Assessment interrupted by medical provider, unable to complete nursing assessment. documented in this encounterCincinnati [facility]06-27-2023 Miscellaneous Notes* Telephone Encounter - Pamela Westbrook - 10/27/2022 3:53 PM EDT Images from the original note were not included. Rec'd Echo Transesophageal [facility]KE report [facility]. documented in this encounterCincinnati [facility]06-27-2023 History of Present illness Narrative* Carlos Jovel MD - 10/27/2022 12:00 PM EDT Images from the original note were not included. 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 Landis is a pleasant 57yo lady with a history of being admitted to [facility] with increasing confusion and aphasia on 06/08/2022 a few weeks after having been submitted to two stent placement. She was thought to be having a stroke and a head CT was order. Following that, abrain MRI was ordered and revealed a faint diffusion restriction in the splenium corpus callosum with some faint ADC hypointensity but this is very faint. More prominent FLAIR change in this area. Some FLAIR changes subcortical in right (2) and left (1) white matter without diffusion restriction. She was discharged home and a repeated MRI on 07/23 showed a corpus callosum splenium nonenhancing expansile lesion with internal cystic/necrotic foci, grossly stable compared with 06/08/2022. She still has difficulty with reading and writing. She also complains of having lost peripheral vision on the right side, balance problems, difficulty recalling recent events and some word finding difficulties. She is on dual anti-platelet agents. She presents in our clinic today to discuss treatment options. She has a PMH of 4 stents, bipolar disorder for which she takes Topiramate and Tegretol. Last Chemo: N/A Current Steroids dose: None Current AED Dose: None Past Medical History: PAST MEDICAL HISTORY Diagnosis Date Coronary artery disease Stroke (HCC) Past Surgical History: No past surgical history on file. Family History: No family history on file. Social History Tobacco Use Smoking status: Some Days Packs/day: 0.30 Types: Cigarettes Smokeless tobacco: Never Allergies: Budesonide-Formoterol, Aspirin, Latex, Penicillins, Adhesive Tape-Silicones, Budesonide, and Formoterol Current Outpatient Medications Medication Sig aspirin 81 mg cap Take by mouth. buPROPion XL (WELLBUTRIN XL) 300 mg 24 hr tablet Take 450 mg by mouth every morning. clopidogrel (PLAVIX) 75 mg tablet Take by mouth. clonazePAM (KLONOPIN) 0.5 mg tablet TAKE 1 TABLET BY MOUTH TWICE A DAY DIRECTED pantoprazole DR (PROTONIX) 40 mg tablet Take 40 mg by mouth once daily. traZODone (DESYREL) 100 mg tablet TAKE 3 TABLETS BY MOUTH EVERY DAY AT BEDTIME topiramate (TOPAMAX) 100 mg tablet TAKE 1 TABLET BY MOUTH TWICE A DAY DIRECTED vilazodone (VIIBRYD) 40 mg tablet TAKE 1 TABLET BY MOUTH EVERY DAY WITH A MEAL ondansetron (ZOFRAN) 8 mg tablet Take 8 mg by mouth. losartan (COZAAR) 25 mg tablet Take 25 mg by mouth once daily. metoprolol succinate ER (TOPROL XL) 25 mg 24 hr tablet Take by mouth. ezetimibe (ZETIA) 10 mg tablet Take 10 mg by mouth once daily. VRAYLAR 1.5 mg capsule Take 1.5 mg by mouth once daily. PRALUENT PEN 75 mg/mL pen albuterol HFA (PROVENTIL HFA, VENTOLIN HFA) 90 mcg/actuation inhaler INHALE 2 (TWO) PUFFS EVERY 4 HOURS NEEDED Bacillus subtilis-inulin 1.5 billion cell-1 gram chew Take by mouth. carBAMazepine (TEGRETOL) 200 mg tablet Take 400 mg by mouth twice daily. sodium chloride 0.9 %, flush, (BD POSIFLUSH) syringe Inject 2-10 mL intravenously as directed. For Echo procedure No current facility-administered medications for this visit. Review of systems: Constitutional: No recent fever or weight loss. Eyes: No history of glaucoma or cataracts. ENMT: No recent ear infection, nasal congestion, mouth sores or sore throat. CV: No history of chest pain, palpitations or leg swelling. Respiratory: No history of SOB, asthma or recent cough. Gastrointestinal: No history of nausea, vomiting, dysphagia or abdominal pain. Genitourinary: No history of hematuria or dysuria. Musculoskeletal: No complaint of arthritis, unstable gait or arm/leg weakness. Psychiatric: No history of hallucinations or depression or anxiety. ROS Neurological: No complaint of headache. No complaint of tinnitus. No complaint of decreased hearing. No complaint of diplopia. No complaints of decreased visual acuity. No complaint of arm/leg numbness. No problem with limb coordination. No complaint of syncope, seizures or disorientation. Objective Physical Exam: There were no vitals taken for this visit. General: Eyes: Clear conjunctiva. Non-icteric. CV: Reg S1-S2 without abnormal sounds or murmurs. Respiratory: Clear breath sounds bilaterally Neurological: Higher integrative functions: Oriented to person, place & time. Memory: Recall only 1 word out 3 in 3 minutes. Attention Span and Concentration: Good. Language: Accurate naming of objects. Good comprehension. Fund of Knowledge: Good. 2nd CN: Right homonymous hemianopsia 3rd,4th,6th CN: Pupils (=), round, react to light, full extraocular movements. 5th CN: No decrease in facial sensation. 7th CN: Facial muscles symmetric and strong. 8th CN: Hears finger rub well bilaterally. 9th CN: Good gag. 10th CN: Spontaneous palate movement, full and symmetric. 11th CN: Full strength in shoulder shrug. 12th CN: Tongue protrusion full and midline. Sensation: No decrease in sensation in upper or lower limbs to touch. Musculoskeletal: Steady gait. Motor all limbs grade 4+. Myotatic reflexes: 2/4 throughout and symmetrical. Babinski reflexes: Absent. Coordination: Rapid alternating movements fast and smooth all limbs. PHQ 2 and 9 Total Scores 06/24/2022 PHQ-2 Score 5 PHQ-9 Score 19 Labs: No flowsheet data found. No flowsheet data found. Final Pathology: None Imaging: MRI Report MRI BRAIN WO/W IVCON Exam End: 09/25/2022 10:42 AM (Final result) Narrative: * * *Final Report* * * DATE OF EXAM: Sep 25 2022 10:42AM [facility] 0295 - MRI BRAIN WO/W IVCON / PROCEDURE REASON: Cerebral infarction, unspecified mechanism (HCC) * * * * Physician Interpretation * * * * EXAMINATION: MRI BRAIN WO/W IVCON CLINICAL HISTORY: Parenchymal lesion in the corpus callosum of uncertain significance. Evaluate stability. TECHNIQUE: Routine brain MRI protocol without and with contrast including diffusion and gradient echo images. MQ: [id number] Contrast: 16 mL Dotarem IV COMPARISON: 07/03/2022 and 06/08/2022. RESULT: Acute Change: There is no evidence of an acute intracranial process. Hemorrhage: No evidence of prior parenchymal, subarachnoid or intraventricular hemorrhage on SWI. Mass Lesion/ Mass Effect: Again noted is confluent hyperintensity on FLAIR and T2 in the splenium the corpus callosum extends to either side of midline. When compared to the prior study, this is clearly extends more prominently to the left of midline than seen on the prior 2 studies. There continues to be a small central cystic focus in the midline which is minimally increased in size and demonstrates minimal peripheral enhancement following gadolinium administration. There is no evidence of restricted diffusion or blood byproducts in this region. There is persistent mild localized mass effect in the splenium of the corpus callosum. No similar foci are detected elsewhere. No abnormal parenchymal or leptomeningeal enhancement is appreciated otherwise following gadolinium administration. Chronic Change: A few scattered small patchy foci of hyperintensity are again noted in the supratentorial white matter on FLAIR and T2 which are nonspecific and may simply reflect the subtle sequelae of a remote insult. No significant change in these latter findings. Parenchyma: No significant volume loss for age. The brain parenchyma is otherwise within normal limits of signal intensity and morphology. Ventricles: Normal caliber and morphology. Skull Base: Hypothalamic and pituitary region are grossly normal. Craniocervical junction is normal. No significant marrow replacement process. Vasculature: Major intracranial arterial structures, and dural venous sinuses show typical flow void, suggesting patency by spin echo criteria. Other: Small amount of retained fluid is again noted in mastoid air cells. 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 Physical Chemistry Teacher: PSCB Transcribe Date/Time: Sep 25 2022 12:04P Dictated by : ELIDIA CERVANTES MD This examination was interpreted and the report reviewed and electronically signed by: ELIDIA CERVANTES MD on Sep 25 2022 12:18PM EST Data Review: Personal review of medical records: I reviewed the [facility] chart. Personal review of image, tracing or specimen: Sunshine Tse MD Lesion size: Multifocal: No Subependymal spread: No Assessment & Plan 57yo lady with a history of confusion and aphasia, found to have a expansile lesion on the spleniumof the corpus callosum that has been enlarging since diagnose in 06/2022. Treatment Options and Risks: I have discussed the management options and their respective risks andbenefits with the patient. 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 Treatment options were discussed in detail including surgery, chemotherapy or radiation treatment/radiosurgery. In this case, I recommend stereotactic needle biospy for tissue diagnose. We discussed the brain biopsy procedure with skull fiducials. The day of surgery the patient is brought to the operating room area and placed under a general anesthetic and a small skin puncture is made. A small metal post is then screwed into the outer skull. This procedure is repeated at three orfour other sites, then the patient taken to CT scan. These images are loaded into our planning and navigation computer and the patient returned to the operating room. The surgical plan from the navigation computer would be mapped onto their head and a small zone of hair clipped. After cleansing theskin, a small incision and hole will be made and the biopsy instrument directed to the target site using the computer for guidance. The tissue will be reviewed by the pathologist for adequacy of the sample. Once that is confirmed the biopsy instrument will be removed and the scalp sutured. The posts are removed and those punctures are usually closed with surgical val. After a dressing is placed the patient is awakened and taken to recovery where a CT scan will be performed. If surgery, the patient's recovery and CT are unremarkable they will be transferred to a regular room, otherwise they will remain in an intensive care setting for managing whatever the issue may be. We reviewed in detail the risks and benefits (including catastrophic risks) of the biopsy procedure. Biopsy itself will not treat the lesion or make them better, but will likely lead to the diagnosisfrom which we can make treatment recommendations. The risks, benefits, complications, and alternative treatments were discussed with the patient. T Recommendations: As above Medicines: No Change Instructions: Continue present activity Physician [id number] time was 30 minutes with > 50% devoted to counseling or co-ordination of care. Approximately 30 minutes were spent reviewing medical records. No resident was available to participate in this visit. I saw and evaluated the patient. I reviewedthe fellow 's note and agree with findings and plan as written. Carlos Jovel MD 11 AM 10/27/2022 [facility] documented in this encounterCincinnati [facility]06-27-2023 Nurse Note* Jenni Strong MA - 10/27/2022 11:41 AM EDT Additional intake questions: Has the patient had fever, nausea, vomiting, diarrhea, constipation, fatigue for > 1 week? Yes, nausea, constipation (day of last BM a week ago), fatigue, and Provider Notified Does the patient have a decreased appetite? No Does patient want to see a Bundle Breaker? No (yes to any of above refer patient to schedulers for dietitian appointment) ) Does patient have any new or increased numbness or tingling of extremities? No Is patient interested in fertility information? No Does patient need any prescription refills? No Does patient have an advanced directive in place? No, Patient referred to Resource Center documented in this encounterCincinnati [facility]06-21-2023 Miscellaneous Notes* Telephone Encounter - Clair Bahena APRN.CNP - 10/21/2022 11:27 AM EDT Time Frame: JOSE, within 1 week Provider: Intra-axial neurosurgeon Referring: Rad Pro DO Dx: Glioma Patient: Josie Landis Address: Josie Landis [id number] [place], [place] [id number] Per Triage: oJsie Landis is a 57 year old female that requests evaluation of previously diagnosed splenium of the corpus callosum. Patient expectations: New Consult * Telephone Encounter - Rosas Shaver - 10/21/2022 10:46 AM EDT DO Rad Galloway DO Future Order Information Expires 10/09/23 Associated Diagnoses Glioma (HCC) [C71.9] Reason for Exam Priority: Routine Dx: Glioma (HCC) [C71.9 (ICD-10-CM)] Order Questions Question Answer Center for Consult Brain Tumor and Neuro - Oncology Center [facility] Epic access? Yes Reason For Visit suspected glioma corpus callosum documented in this encounterCincinnati [facility]06-21-2023 Miscellaneous Notes* Telephone Encounter - Rad Pro DO - 10/21/2022 10:40 AM EDT Patient called office and we discussed her imaging results via telephone per her agreement. She saw report, we discussed the slight progression of the lesion in the corpus callosum. Possible glioma. Patient is in therapies still, feels like she is getting worse. Walking more unstable. 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 Given this lesion, she cannot work. Is not recovering neurologically, cannot read, cannot drive. Trouble with walking. She will make appt with brain tumor clinic, gave her appt number and recommended making the soonestappt. Discussed with this progression not consistent with stroke, possible tumor. Rad Pro DO Vascular Neurology documented in this encounterCincinnati [facility]06-02-2023 History of Present illness Narrative* Ana Hamlinmich Chavez Pss - 10/02/2022 10:56 AM EDT POPULATION HEALTH NAVIGATION OUTREACH Action/I Patient Outreach: Left voicemail for patient to call back to schedule in RST. (please see [employer] order dated for (08/25/2022). Any agent can assist with scheduling. Patient Identified by Name and : no Outreach Outcome/Action Unable to reach patient: Left message Did you use a PCP flex slot to schedule this appointment? No Reason for Outreach Care Gap or Scheduling/Wellness visits Payer: Payor: A[employer] / Plan: [employer] CHOICE POS II / Product Type: POS / Care Gap Reviewed:: Specialty Scheduling Reminder: Reminder note to check Health Maintenance for items below Health Maintenance items due: HEPATITIS B(1 of 3 - 3-dose series) Never done COVID-19 VACCINE(1) Never done PNEUMOCOCCAL(1 - PCV) Never done HEPATITIS C SCREENING Never done HIV SCREENING Never done DTAP,TDAP,TD(1 - Tdap) Never done PAP TESTING Never done HPV TESTING Never done MAMMOGRAM Never done LIPID SCREEN Never done DIABETES SCREEN Never done COLORECTAL CANCER SCREENING Never done SHINGRIX VACCINE(1 of 2) Never done DEPRESSION ASSESSMENT Never done Navigation Signature: Ana Hamlinmich Chavez [facility] October 02, 2022 10:56 AM documented in this encounterCincinnati [facility]05-26-2023 History of Present illness Narrative* David Justice RT(R) - 09/25/2022 10:00 AM EDT Radiology Service Progress Note DATE OF SERVICE: September 25, 2022 TIME: 10:12 AM PATIENT IDENTITY VERIFICATION COMPLETED USING TWO (2) STANDARD IDENTIFIERS: Name and Date of confirmed by patient verbally. FALL SCREENING: Has the patient had 2 falls in the last year or 1 fall with injury or currently using an Ambulatory Assistive Device (Walker, Cane, Wheelchair, Crutches, etc.)? No PATIENT GENDER DATA: Female. status: : No status: NO. PATIENT RELEVANT IMPLANT DATA REVIEWED: Yes ALLERGIES: Reviewed and unchanged CONTRAST ALLERGY: NO. EXAM: MRI - CONTRAST TYPE: GROUP II PERIPHERAL IV DATA: Ambulatory: A peripheral IV was started in the Right antecubital site with a Angio cath: 22 gauge. RADIOLOGY DEPARTMENT: MR; Exam(s) Completed: Head: Multiple Sclerosis SIGNATURE: RT Hayden(R) PATIENT NAME: Josie Landis DATE: September 25, 2022 TIME: 10:12 AM documented in this encounterCincinnati [facility]04-25-[facility] History of Present illness Narrative* Rad Pro DO - 08/25/2022 12:06 PM EDT [facility]BROV[facility]ULAR CENTER Established Visit Consultation is requested by: No referring provider defined for this encounter. PCP: Dr. Solis Cool DO [address] [facility] [address] [facility] [id number] CEREBROVASCULAR HISTORY Josie Landis is a 56 year old female with CAD, here for evaluation of stroke/lupus callosum lesion found on MRI. Hx from initial visit 06/08/2022 - [facility] with c/o increasing confusion and aphasia. On plavix and ASA d/t current cardiac stenting History obtained by me, above by nurse: -had chest pain and heart cath on May 31, 2022 -felt loopy after her heart cath. She was on a variety of medications and then she noted this happening for several days. She went to her PCP and she was told it was not the medications and she stillfeel this way - also noted that her speech was slower -when she was driving a few weeks later, she was not driving the way she normally does. Her husbandnoted that she wasn't moving the steering wheel at this time and something just wasn't right. She was not fluent in her driving ability with turning the wheel. 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 Does not feel like she can return to work at this time given her language issues from her stroke - MRI brain was repeated and it had a similar appearance in the corpus callosum with some enhancement in this area -No new neurological symptoms Antiplatelets/Anticoagulants: Aspirin and Clopidogrel Statins: Atorvastatin - 80mg PAST MEDICAL HISTORY Diagnosis Date Coronary artery disease Stroke (HCC) No past surgical history on file. No family history on file. Social History Tobacco Use Smoking status: Some Days Packs/day: 0.30 Types: Cigarettes Smokeless tobacco: Never MEDICATIONS Current Outpatient Medications Medication Sig aspirin 81 mg cap Take by mouth. buPROPion XL (WELLBUTRIN XL) 300 mg 24 hr tablet Take 450 mg by mouth every morning. clopidogrel (PLAVIX) 75 mg tablet Take by mouth. clonazePAM (KLONOPIN) 0.5 mg tablet TAKE 1 TABLET BY MOUTH TWICE A DAY DIRECTED pantoprazole DR (PROTONIX) 40 mg tablet Take 40 mg by mouth once daily. traZODone (DESYREL) 100 mg tablet TAKE 3 TABLETS BY MOUTH EVERY DAY AT BEDTIME topiramate (TOPAMAX) 100 mg tablet TAKE 1 TABLET BY MOUTH TWICE A DAY DIRECTED vilazodone (VIIBRYD) 40 mg tablet TAKE 1 TABLET BY MOUTH EVERY DAY WITH A MEAL ondansetron (ZOFRAN) 8 mg tablet Take 8 mg by mouth. losartan (COZAAR) 25 mg tablet Take 25 mg by mouth once daily. metoprolol succinate ER (TOPROL XL) 25 mg 24 hr tablet Take by mouth. ezetimibe (ZETIA) 10 mg tablet Take 10 mg by mouth once daily. VRAYLAR 1.5 mg capsule Take 1.5 mg by mouth once daily. PRALUENT PEN 75 mg/mL pen albuterol HFA (PROVENTIL HFA, VENTOLIN HFA) 90 mcg/actuation inhaler INHALE 2 (TWO) PUFFS EVERY 4 HOURS NEEDED Bacillus subtilis-inulin 1.5 billion cell-1 gram chew Take by mouth. carBAMazepine (TEGRETOL) 200 mg tablet Take 400 mg by mouth twice daily. iv contrast (will be provided with radiology test) MRI Brain Inject, intravenously, once for 1 dose.No IV access, insert saline lock prior to beginning of sedation, infusion, injection of imaging exam.Discontinue saline lock post exam. If Pt. has a central line or IVAD, may access for administration according to line specific nursing protocol.Once exam is complete flush line and de-access according to line specific nursing protocol in the MR contrast administration guidelines link sodium chloride 0.9 %, flush, (BD POSIFLUSH) syringe Inject 2-10 mL intravenously as directed. For Echo procedure No current facility-administered medications for this visit. ALLERGIES ALLERGIES Allergen Reactions Budesonide-Formoter* Other: See Comments Aspirin Other: See Comments Latex Other: See Comments Penicillins Other: See Comments Adhesive Tape-Silic* Other: See Comments Budesonide Other: See Comments Formoterol Other: See Comments PHYSICAL EXAMINATION BP 127/75 (BP Site: Left Arm, BP Position: Sitting, BP Cuff Size: Regular Adult) Pulse 65 Temp 36.7 C (98 F) (Oral) Resp 14 Ht 170.2 cm (5' 7) Wt 78.2 kg (172 lb 8 oz) SpO2 97% BMI 27.02 kg/m General: Well-developed, well-nourished, in no acute distress but anxious, at visit HEENT: Normocephalic, atraumatic. Sclerae anicteric Neurological Exam Mental Status: Awake, alert No aphasia, fluency intact, comprehension intact No dysarthria Cranial Nerves: 3, 4, 6: extra-ocular movements intact 5: V1-V3 intact bilaterally 7: no facial droop 8: hearing intact 9-10: equal palate elevation 11: 5/5 shoulder shrug 12: tongue midline Motor Exam: Moves all four extremities IMAGING MRI brain w/o contrast 06/08 per my review showed faint diffusion restriction in the splenium corpus callosum with some faint ADC hypointensity but this is very faint. More prominent FLAIR change in this area. Some FLAIR changes subcortical in right (2) and left (1) white matter without diffusion restriction. CTA head and neck per my review showed normal cerebrovascular circulation ECHO report showed a PFO but did not quantify size, had normal EF without any intracardiac thrombus Interval imaging MRI brain per radiology 07/23: IMPRESSION: Corpus callosum splenium nonenhancing expansile lesion with internal cystic/necrotic foci, grossly stable compared with 06/08/2022. This is of indeterminate etiology, with considerations including sequela of a 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 process (noting additional patchy foci of signal abnormality in the cerebral white matter) versus other inflammatory, post infectious or cytotoxic process. Note that low-grade neoplasm is not excluded, and continued follow-up is recommended. Patient Entered Questionnaires PROMIS/NeuroQoL Score Percentiles Physical Health 06/24/2022 Physical Function Percentile 16* Sleep Percentile 21* Fatigue Percentile 66 Pain Interference Percentile 38 PROMIS SOCIAL ROLE SCORE 06/24/2022 Social Role Satisfaction Percentile 12 Mental Health 06/24/2022 NeuroQol Cognitive Function Percentile 2 General Self-Efficacy Percentile 88 PROMIS Global Health Scale 06/24/2022 Physical Health Percentile 15 Mental Health Percentile 19* Percentiles provide an indication of how a patient's score ranks in relation to the [place] general population. > 31st percentile is within normal limits or better * < 31st percentile is at least SD worse than population, which may be clinically relevant < 16th percentile is at least 1 SD worse than population and warrants attention Depression Screening PHQ-9 06/24/2022 Score 19 Self-Harm Response 0 PHQ-9 Scores: PHQ-9 Self-Harm (Item 9) Response: 0 - 9 No to Mild depression 0 - Not at all 10 - 14 Moderate depression 1 - Several Days > 15 Severe depression 2 - More than half the days 3 - Nearly every day Sleep Apnea Probability Score 06/24/2022 Sleep Apnea Screen V2 20 (Sleep study not recommended) Impression: Corpus callosum lesion: suspect ischemic stroke embolic post procedural after heart cath suspected (if this is a stroke) given temporal relationship of her confusion. However, this lesion looks a little unusual as it is not a common location for stroke, but still possible and appears slightly olderthan 7 days. Ddx includes neoplasm, infectious, autoimmune. Patient foramen ovale: possible incidental finding but cannot rule out that this caused stroke Hypertension: Blood pressure goal < 130/80 Blood pressure today: BP 110/74 (BP Site: Left Arm, BP Position: Sitting, BP Cuff Size: Large Adult) Pulse 60 Temp 36 C (96.8 F) (Temporal) Resp 14 Ht 170.2 cm (5' 7) Wt 78 kg (172 lb) SpO2 100% BMI 26.94 kg/m Hyperlipidemia: LDL goal < 70 Hba1c goal < 7.0 Plan: Repeat MRI brain with and w/o contrast after August 2022 to ensure lesion is not mass/malignancy Obtain LUKE Continue aspirin 81mg daily for now Continue therapies as patient is doing Management of hypertension, hyperlipidemia, and glucose with 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 Solis Cool DO [address] [facility] [address] [facility] [id number] documented in this encounterCincinnati [facility]04-25-2023 Instructions* Patient Instructions* Rad Pro DO - 08/25/2022 12:05 PM EDT Regarding your [facility] at the [facility] C[facility] we discussed the following: Impression: Ischemic stroke Plan: Continue aspirin 81mg daily Obtain LUKE Repeat MRI brain with and w/o contrast after August 2022 or later Continue your therapies, orders placed for speech, OT, PT F/u in 3 months documented in this encounterCincinnati [facility]03-03-2023 History of Present illness Narrative* David Justice, RT(R) - 07/03/2022 1:00 PM EST Radiology Service Progress Note DATE OF SERVICE: July 03, 2022 TIME: 1:07 PM PATIENT IDENTITY VERIFICATION COMPLETED USING TWO (2) STANDARD IDENTIFIERS: Name and Date of confirmed by patient verbally. FALL SCREENING: Has the patient had 2 falls in the last year or 1 fall with injury or currently using an Ambulatory Assistive Device (Walker, Cane, Wheelchair, Crutches, etc.)? No PATIENT GENDER DATA: Female. status: : No status: NO. PATIENT RELEVANT IMPLANT DATA REVIEWED: Yes ALLERGIES: Reviewed and unchanged CONTRAST ALLERGY: NO. EXAM: MRI - CONTRAST TYPE: GROUP II PERIPHERAL IV DATA: Ambulatory: A peripheral IV was started in the Right antecubital site with a Angio cath: 22 gauge. RADIOLOGY DEPARTMENT: MR; Exam(s) Completed: Head: Routine Brain SIGNATURE: RT Hayden(R) PATIENT NAME: Josie Landis DATE: July 03, 2022 TIME: 1:07 PM documented in this encounterCincinnati [facility]02-27-2023 Miscellaneous Notes* Telephone Encounter - Pamela Westbrook - 06/29/2022 9:30 AM EST [facility] report into [employer]. documented in this encounterCincinnati [facility]02-24-2023 Miscellaneous Notes* Telephone Encounter - Gisela Crouch RN - 06/26/2022 11:[address] Pro spoke with patient - pt to repeat MRI brain with and w/o contrast. Patient would like to complete at [facility]. [facility] [phone] Spoke with Radha at [facility]. They will not obtain PA for MRI. Call placed to patient. Notified patient that MRI can not completed at [facility]. Provided patient [facility] scheduling number. Patient verbalized understanding and has no further questions at this time. GISELA Crouch RN documented in this encounterCincinnati [facility]02-23-2023 Miscellaneous Notes* Telephone Encounter - Gisela Crouch RN - 06/25/2022 9:[address] Pro reviewed documents at patients new consult appointment on 06/24/2022. GISELA Crouch RN * Telephone Encounter - Pamela Lopez - 06/25/2022 9:07 AM EST Rec'd discharge summary from [facility] imported into [employer]. documented in this encounterCincinnati [facility]02-22-2023 Instructions* Patient Instructions* Rad Pro DO - 06/24/2022 5:09 PM EST Regarding your visit at the [facility] C[facility] we discussed the following: Impression: Ischemic stroke: embolic post procedural after heart cath, also has PFO suspect incidental but cannot rule out etiology of ischemic stroke Patient foramen ovale Esophageal flap Hypertension: Blood pressure goal < 130/80 Blood pressure today: BP 110/74 (BP Site: Left Arm, BP Position: Sitting, BP Cuff Size: Large Adult) Pulse 60 Temp 36 C (96.8 F) (Temporal) Resp 14 Ht 170.2 cm (5' 7) Wt 78 kg (172 lb) SpO2 100% BMI 26.94 kg/m Hyperlipidemia: LDL goal < 70 Hba1c goal < 7.0 Plan: Continue antiplatelet therapy lifelong unless you have atrial fibrillation Obtain LUKE to further evaluate the PFO Agree with PT, OT, speech therapy to help with stroke symptoms Management of hypertension, hyperlipidemia, and glucose with primary care provider with custodial goals as above Counseled patient on signs and symptoms of stroke if develops them in the future, seek medical attention immediately by calling -Additional stroke reduction measures and stroke warning signs are listed below. Please do not hesitate to call if you have any questions Rad Pro, Vascular Neurology Stroke Signs and Symptoms: *Stroke is a medical emergency. Know the warning signs of stroke: Sudden numbness or weakness of the face, arm or leg, especially on one side of the body Sudden confusion, trouble speaking, or understanding Sudden trouble seeing in one eye, or both eyes Sudden trouble walking, dizziness, loss of balance, or coordination Sudden severe headache with no known cause *If you, or someone with you, has one or more of these signs, don't delay! Immediately call 911, [facility] emergency [facility] services (EMS) number so an ambulance can be sent for you. Also, check the time so that you will know when the symptoms first appeared. It is very important to take immediate action, every second counts. Medical treatment may be available if action is taken early enough. ~~~~~~~~~~~~~~~~~~~~~~~~~~~~~~~~~~~~~~~~~~~~~~~~~~~~~~~~~~~~~~~~~~~~~~~~ General Guidelines to Help Reduce Risk of Recurrent Stroke Blood Pressure - Blood Pressure reduction is recommended for both prevention of recurrent stroke and prevention ofother vascular events in persons who have had an ischemic stroke or transient ischemic attack (TIA)and are beyond the first 24 hours. - Several lifestyle modifications have been associated with BP reduction and are a reasonable part of a comprehensive antihypertensive therapy - These modifications include: - salt restriction - weight loss - consumption of a diet rich in fruits, vegetables, and low-fat dairy products - regular aerobic physical activity - limited alcohol consumption Goal: 130/80 if you have had a stroke. This blood pressure goal may be lower if you have diabetes Perform annual BP screening and lifestyle modifications Hypertension: Combine medications with above lifestyle modifications to reach your goal blood pressure as defined above. Monitor your blood pressure at home regularly to ensure you are reaching your goals Diabetes - Maintain good control of diabetes if you have it by working with your primary care physician to adjust medications and lifestyle (diet) modification -A1C goal less than 7.0 Cholesterol and Lipid Management - Statin therapy with intensive lipid-lowering effects is recommended to reduce risk of stroke and cardiovascular events among patients with ischemic stroke or TIA who have evidence of atherosclerosis. jail goal LDL is less than 70 in most stroke patients. Diet - Limit carbohydrates, saturated and trans fats, sodium, sweets, and red meat - Consume fruits, vegetables, whole grains, low-fat dairy products, skinless poultry, nuts and legumes - Consider the DASH (Dietary Approaches to Stop Hypertension) diet (if you have hypertension) or the Mediterranean diet - more information: https://www.heart.org/en/healthy-living/healthy-eating/eat-smart/nutrition-basic s/bsn-yypi-bmh-lifestyle-recommendations Smoking and Tobacco Use (including e-cigarettes) - Strongly recommend against smoking and tobacco use - Strongly recommend against second hand smoke exposure. This is just as harmful as smoking yourself - Counseling, nicotine products, and oral smoking cessation medications are effective for helping smokers quit Alcohol Consumption - Heavy drinkers should eliminate or reduce their consumption of alcohol. - Persons who continue drinking the following may be reasonable: - less than or equal to 2 drinks/day for men - less than or equal to 1 drink/day for non women Exercise - If capable of engaging in physical activity, at least 20-30 minutes of moderate to vigorous intensity physical exercise, typically defined as vigorous activity sufficient to break a sweat or noticeably raise heart rate, 3-5 days a week (eg, walking briskly, using an exercise bicycle) may be considered to reduce the risk factors and comorbid conditions that increase the likelihood of recurrent stroke - Avoid prolonged sitting. Get up and walk around for about 5-10 minutes if you sit for 2 hours at a time. - If disability after ischemic stroke, supervision by a healthcare professional, such as a physicaltherapist or cardiac rehabilitation professional, at least on initiation of an exercise regimen, may be considered documented in this encounterCincinnati [facility]02-22-2023 History of Present illness Narrative* Rad Pro DO - 06/24/2022 4:00 PM EST CEREBROVASCULAR CENTER Initial Visit Consultation is requested by: No referring provider defined for this encounter. PCP: Dr. Solis Cool DO [address] [facility] [address] [facility] [id number] CEREBROVASCULAR HISTORY Josie Landis is a 56 year old female with CAD, here for evaluation of stroke/lupus callosum lesion found on MRI. Date of Last Event: 06/08/2022 History of Event: 06/08/2022 - [facility] with c/o increasing confusion and aphasia. On plavix and ASA d/t current cardiac stenting History obtained by me, above by nurse: -had chest pain and heart cath on May 31, 2022 -felt loopy after her heart cath. She was on a variety of medications and then she noted this happening for several days. She went to her PCP and she was told it was not the medications and she stillfeel this way - also noted that her speech was slower -when she was driving a few weeks later, she was not driving the way she normally does. Her husbandnoted that she wasn't moving the steering wheel at this time and something just wasn't right. She was not fluent in her driving ability with turning the wheel. 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 No GISELA Crouch RN RN completing documentation PAST MEDICAL HISTORY Diagnosis Date Coronary artery disease Stroke (HCC) No past surgical history on file. No family history on file. MEDICATIONS Current Outpatient Medications Medication Sig aspirin 81 mg cap Take by mouth. buPROPion XL (WELLBUTRIN XL) 300 mg 24 hr tablet Take 300 mg by mouth every morning. clopidogrel (PLAVIX) 75 mg tablet Take by mouth. clonazePAM (KLONOPIN) 0.5 mg tablet TAKE 1 TABLET BY MOUTH TWICE A DAY DIRECTED pantoprazole DR (PROTONIX) 40 mg tablet Take 40 mg by mouth once daily. traZODone (DESYREL) 100 mg tablet TAKE 3 TABLETS BY MOUTH EVERY DAY AT BEDTIME topiramate (TOPAMAX) 100 mg tablet TAKE 1 TABLET BY MOUTH TWICE A DAY DIRECTED vilazodone (VIIBRYD) 40 mg tablet TAKE 1 TABLET BY MOUTH EVERY DAY WITH A MEAL ondansetron (ZOFRAN) 8 mg tablet Take 8 mg by mouth. losartan (COZAAR) 25 mg tablet Take 25 mg by mouth once daily. metoprolol succinate ER (TOPROL XL) 25 mg 24 hr tablet Take by mouth. ezetimibe (ZETIA) 10 mg tablet Take 10 mg by mouth once daily. VRAYLAR 1.5 mg capsule Take 1.5 mg by mouth once daily. PRALUENT PEN 75 mg/mL pen albuterol HFA (PROVENTIL HFA, VENTOLIN HFA) 90 mcg/actuation inhaler INHALE 2 (TWO) PUFFS EVERY 4 HOURS NEEDED Bacillus subtilis-inulin 1.5 billion cell-1 gram chew Take by mouth. carBAMazepine (TEGRETOL) 200 mg tablet Take 400 mg by mouth twice daily. sodium chloride 0.9 %, flush, (BD POSIFLUSH) syringe Inject 2-10 mL intravenously as directed. For Echo procedure No current facility-administered medications for this visit. ALLERGIES ALLERGIES Allergen Reactions Budesonide-Formoter* Other: See Comments Aspirin Other: See Comments Latex Other: See Comments Penicillins Other: See Comments Adhesive Tape-Silic* Other: See Comments Budesonide Other: See Comments Formoterol Other: See Comments PHYSICAL EXAMINATION BP 110/74 (BP Site: Left Arm, BP Position: Sitting, BP Cuff Size: Large Adult) Pulse 60 Temp 36C (96.8 F) (Temporal) Resp 14 Ht 170.2 cm (5' 7) Wt 78 kg (172 lb) SpO2 100% BMI 26.94 kg/m General: Well-developed, well-nourished, in no acute distress but anxious, at visit HEENT: Normocephalic, atraumatic. Sclerae anicteric Pulse regular rate on palpation of radial artery Neurological Exam Mental Status: Awake, alert No aphasia, fluency intact, comprehension intact No dysarthria Cranial Nerves: Pupils equal and reactive to light bilaterally 2: right homonymous hemianopia 3, 4, 6: extra-ocular movements intact. No pathological nystagmus 5: V1-V3 intact bilaterally 7: no facial droop 8: hearing intact to soft rub 9-10: equal palate elevation 11: 5/5 shoulder shrug 12: tongue midline Motor Exam: 5/5 strength throughout in all four extremities Sensation: Intact to light touch Reflexes: Brachioradialis I bicep I patellar Right 2 2 2 Left 2 2 2 No abnormal movements Normal tone throughout No extinction but had a moment of right left confusion [id number] and [id number] without dysmetria bilaterally Gait: normal stance, normal gait IMAGING MRI brain w/o contrast 06/08 per my review showed faint diffusion restriction in the splenium corpus callosum with some faint ADC hypointensity but this is very faint. More prominent FLAIR change in this area. Some FLAIR changes subcortical in right (2) and left (1) white matter without diffusion restriction. CTA head and neck per my review showed normal cerebrovascular circulation ECHO report showed a PFO but did not quantify size, had normal EF without any intracardiac thrombus Patient Entered Questionnaires PROMIS/NeuroQoL Score Percentiles Physical Health 06/24/2022 Physical Function Percentile 16* Sleep Percentile 21* Fatigue Percentile 66 Pain Interference Percentile 38 PROMIS SOCIAL ROLE SCORE 06/24/2022 Social Role Satisfaction Percentile 12 Mental Health 06/24/2022 NeuroQol Cognitive Function Percentile 2 General Self-Efficacy Percentile 88 PROMIS Global Health Scale 06/24/2022 Physical Health Percentile 15 Mental Health Percentile 19* Percentiles provide an indication of how a patient's score ranks in relation to the [place] general population. > 31st percentile is within normal limits or better * < 31st percentile is at least SD worse than population, which may be clinically relevant < 16th percentile is at least 1 SD worse than population and warrants attention Depression Screening PHQ-9 06/24/2022 Score 19 Self-Harm Response 0 PHQ-9 Scores: PHQ-9 Self-Harm (Item 9) Response: 0 - 9 No to Mild depression 0 - Not at all 10 - 14 Moderate depression 1 - Several Days > 15 Severe depression 2 - More than half the days 3 - Nearly every day Sleep Apnea Probability Score 06/24/2022 Sleep Apnea Screen V2 20 (Sleep study not recommended) Impression: Corpus callosum lesion: possible ischemic stroke etiology embolic post procedural after heart cath suspected (if this is a stroke) given tmeporal relationship of her confusion. However, this lesion looks a little unusual as it is not a common location for stroke, but still possible and appears slightly older than 7 days. Ddx includes neoplasm, infectious, autoimmune. Right homonymous hemianopsia: had reported right superior quadrantanopia on ophthalmology visit prior to seeing me which was incidental to her. She has not noticed progression to hemianopia but incidentally found on exam and not explained by her corpus callosum lesion. Concerning for new infarct versus neoplasm Patient foramen ovale: possible incidental finding but cannot rule out that this caused stroke Esophageal flap: had this for GERD treatment. Hypertension: Blood pressure goal < 130/80 Blood pressure today: BP 110/74 (BP Site: Left Arm, BP Position: Sitting, BP Cuff Size: Large Adult) Pulse 60 Temp 36 C (96.8 F) (Temporal) Resp 14 Ht 170.2 cm (5' 7) Wt 78 kg (172 lb) SpO2 100% BMI 26.94 kg/m Hyperlipidemia: LDL goal < 70 Hba1c goal < 7.0 Plan: Continue antiplatelet therapy lifelong unless you have atrial fibrillation Obtain LUKE to further evaluate the PFO if possible but discussed that I am not super sure if this is safely feasible with her esophageal flap procedure for GERD Agree with PT, OT, speech therapy to help with stroke symptoms Will repeat MRI brain with and w/o contrast given unusual location for stroke (corpus callosum) butnot impossible and new right homonymous hemianopia not explained by MRI finding Management of hypertension, hyperlipidemia, and glucose with 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 care provider 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 as above Counseled patient on signs and symptoms of stroke if develops them in the future, seek medical attention immediately by calling 01-01- I spent a total of 70 minutes on the date of service which included preparing to see the patient, [id number] patient care, completing clinical documentation, obtaining and/or reviewing separately obtained history, performing a medically appropriate examination, counseling and educating the patient/family/caregiver, and independently interpreting results (not separately reported) F/u in 2-3 months If needs paperwork filled out for work we can do this SIGNATURE Rad Pro DO Vascular Neurology CC Dr. Solis Cool DO [address] [facility] [address] [facility] [address] documented in this [facility] Hawley [facility] June 09, 2022 11:20am Note Date/Time June 09, 2022 8 :21am [facility] Medical Records Department [address] [place] [address] Progress Note - Hospitalist 06/09/22 0817 MR#: [id number] Acct: [id number] Name: JOSIE LANDIS Rep #:[id number] : 1965 56 From: Blayne Hawley MD PCP: Dr. Solis Cool, DO Status:AD M IN Location: [place] [address]- 1 Subjective Subjective Patient is a 56-year-old lady with recent PCI 2 to 3 weeks prior to admission brought to the emergency department with increasing confusion and expressive aphasia in addition to fine motor difficulties. MRI obtained demonstrated signal abnormality in the splenium of the corpus callosum Coliseum with differential diagnosis including demyelination versus acute ischemia. Admitted to a monitored bed as a case of acute CVA Objective Data Objective Data Vital Signs: Vital Signs Temp Pulse Resp BP Pulse Ox O2 Del Method 97.7 F L 61 18 138/88 H 97 Room Air 06/09/22 05:08 06/09/22 05:08 06/09/22 05:08 06/09/22 05:08 06/09/22 05:08 06/09/22 05:08 Oxygen Delivery Method Room Air Weight: 81.6 kg Body Mass Index (BMI) 27.3 Lab / Micro Data Result Diagrams: 06/09/22 05:48 06/09/22 05:48 Labs: Laboratory Results - last 24 hr 06/08/22 12:59: POC Glucose 100 06/08/22 13:00: Urine Color Yellow, Urine Clarity Sl. Cloudy, Urine pH 7.0, Ur Specific [place] 1.010, Urine Protein Negative, Urine Glucose (UA) Normal, UrineKetones Negative, Urine Occult Blood 10 H, Urine Nitrite Negative, Urine Bilirubin Negative, Urine Urobilinogen Normal, Ur Leukocyte Esterase Negative, Urine RBC 0-5 SEEN, Urine WBC 0 SEEN, Ur Squamous Epith Cells 0 SEEN, Urine Bacteria 0 SEEN, Urine Mucus 0 SEEN 06/08/22 13:02: WBC 5.2, RBC 4.50, Hgb 13.5, Hct 40.4, MCV 89.8, MCH 30.0, MCHC 33.4, RDW Std Deviation 43.7, RDW Coeff of Benigno 13.4, Plt Count 172, MPV 9.0, Immature Gran % (Auto) 0.200, Neut % (Auto) 67.1, Lymph % (Auto) 23.5, Mccracken % (Auto) 6.7, Eos % (Auto) 2.1, Baso % (Auto) 0.4, Absolute Neuts (auto) 3.5, Absolute Lymphs (auto) 1.23, Nucleated RBC % 0 06/08/22 13:02: PT 13.5, INR 1.1, APTT 27.6 06/08/22 13:02: Sodium 140, Potassium 3.2 L, Chloride 109 H, Carbon Dioxide 24.0, Anion Gap 7, BUN 8, Creatinine 0.96, Estim Creat Clear Calc 65.15, Est GFR(MDRD) Af Amer 78, Est GFR (MDRD) Non-Af 64, BUN/Creatinine Ratio 8.3 L, [id number], Calcium 8.8, Troponin I High Sens 6 06/08/22 13:02: Magnesium 2.0 06/09/22 05:48: WBC 5.7, RBC 4.26, Hgb 12.7, Hct 39.4, MCV 92.5, MCH 29.8, MCHC 32.2, RDW Std Deviation 44.9 H, RDW Coeff of Benigno 13.5, Plt Count 163, MPV 9.5, Immature Gran % (Auto) 0.300, Neut % (Auto) 71.0 H, Lymph % (Auto) 20.1, Mccracken % (Auto) 6.6, Eos % (Auto) 1.7, Baso % (Auto) 0.3, Absolute Neuts (auto) 4.1, Absolute Lymphs (auto) 1.15, Nucleated RBC % 0 06/09/22 05:48: Sodium 143, Potassium 3.9, Chloride 114 H, Carbon Dioxide 21.0, Anion Gap 8, BUN 8, Creatinine 0.82, Estim Creat Clear Calc 76.27, Est GFR (MDRD) Af Amer 94, Est GFR (MDRD) Non-Af 78, BUN/Creatinine Ratio 9.8 L, [id number] H, Calcium 8.3 L, Total Bilirubin 0.30, AST 12 L, ALT 25, Alkaline Phosphatase 86, Total Protein 5.8 L, Albumin 3.0 L, Globulin 2.8, Albumin/Globulin Ratio 1.1, Triglycerides 111, Cholesterol 95, LDL Cholesterol 20, VLDL Cholesterol 22, HDL Cholesterol 53, TSH 3.39 06/09/22 05:48: Hemoglobin A1c 5.2 Radiography Diagnostic Testing: Radiology Impression Brain MRI 06/08/22 00:00 IMPRESSION: Signal abnormality in the splenium of the corpus callosum. Differential considerations include demyelination, acute ischemia, high-grade glioma. Additional considerations include encephalitis or acute disseminated encephalomyelitis (ADEM), posterior reversible encephalopathy syndrome (PRES). Limited additional T2 signal hyperintensity are nonspecific and may be due to microvascular ischemia, demyelination, vasculitis. Electronically Signed: Jacqueline Banegas MD at 17:03 EST Reading Location ID and State: [id number] / Tel , Service support , ADDENDUM: 06/08/22 1857 IMPRESSION: Signal abnormality in the splenium of the corpus callosum. Differential considerations include demyelination, acute ischemia, high-grade glioma. Additional considerations include encephalitis or acute disseminated encephalomyelitis (ADEM), posterior reversible encephalopathy syndrome (PRES). Limited additional T2 signal hyperintensity are nonspecific and may be due to microvascular ischemia, demyelination, vasculitis. N.B. : The above Results were Read Back by Jacqueline Banegas MD to Dr. Carmen Frias MD, and understanding confirmed on 06/08/2022 18:50:08 (ET). Electronically Signed: Jacqueline Banegas MD at 17:03 EST Reading Location ID and State: [id number] / Tel , Service support , Brain CT 06/08/22 13:03 IMPRESSION: Normal CT brain without intravenous contrast. Aspect score 10 Electronically Signed: Garrett Green MD at 13:54 EST , ADDENDUM: 06/08/22 1401 IMPRESSION: Normal CT brain without intravenous contrast. Aspect score 10 N.B. : The above Results were Read Back by Garrett Green MD to Riley Frances MD, and understanding confirmed on 06/08/2022 13:54:31 (ET). Electronically Signed: Garrett Green MD at 13:54 EST , Chest X-Ray 06/08/22 13:30 IMPRESSION: No acute cardiopulmonary abnormality. No interval change. Electronically Signed: Garrett Green MD at 13:42 EST , Head/Neck CTA 06/08/22 17:47 IMPRESSION: Negative CTA Carotid and CTA Brain. Electronically Signed: Jacqueline Banegas MD at 18:59 EST Reading Location ID and State: [id number] / Tel , Service support , Physical Exam Narrative GENERAL: cooperative HEENT: Atraumatic; normocephalic EYES; Anicteric, Normal Conjunctiva NECK; supple, normal thyroid, RESPIRATORY: Diminished to auscultation CARDIOVASCULAR: Regular S1 S2, GI: soft, normoactive bowel sounds, : No Renal angle tenderness; EXTREMITIES: No edema, no clubbing, MUSCULOSKELETAL: no muscle wasting NEURO: Awake; no lateralizing signs. SKIN: No Rash PSYCH; Flat affect Assessment & Plan Assessment/Plan (1) Acute cerebrovascular accident (CVA): PLAN: Plan Patient is a 56-year-old lady with recent PCI 2 to 3 weeks prior to admission brought to the emergency department with increasing confusion and expressive aphasia in addition to fine motor difficulties. MRI obtained demonstrated signal abnormality in the splenium of the corpus callosum Coliseum with differential diagnosis including demyelination versus acute ischemia. Admitted to a monitored bed as a case of acute CVA 1. Acute CVA ? Patient presented with increasing confusion as well as expressive aphasia and mild motor difficulties. MRI obtained on admission demonstrated signal abnormality in the splenium of the corpus callosum Coliseum with differential diagnosis including demyelination versus acute ischemia. Admitted to monitored bed every 4 neurochecks ordered also ordered CTA of the head and neck in addition to consultation to telemetry neurology 2. Hypokalemia ? Corrected per protocol repeat labs ordered for monitoring 3. Coronary artery disease ? With recent PCI 4. Essential hypertension ? Patient blood pressure within acceptable levels 5. COPD ? Currently not in exacerbation aerosol treatment as needed 6. Dyslipidemia ? Patient is on atorvastatin 80 mg continue 7. Tobacco dependence - Counseled on cessation, offered nicotine patch for tobacco cravings 8. Depression with anxiety Did continue patient psychotropic medications 9. DVT prophylaxis ? SC Lovenox Time spent in the patient's overall evaluation,decision-making process, review of diagnostic data, adjustment of management, discussion with other providers, nursing nursing and ancillary staff involved in patient's care documentation,56 Minutes Charges/Coding Visit Charges Inpatient E&M: 47017 Subs Hosp L3 Reason for Visit Reason for Visit: Diagnoses Cerebral infarction, unspecified (06/08/22) 06/09/22 1120 <Electronically signed by Blayne Hawley MD> Cosigner Signature (if applicable): CC: ~ Signed [facility] Work Phone: 1(117) 448-592902-06-[address] Frias [facility] June 08, 2022 9:47pm Note Date/Time June 08, 2022 9 :48pm [facility] Medical Records Department [address] [place] [address] Telemedicine Confirmation Receipt 06/08/22 MR#: [id number] Acct: [id number] Name: JOSIE LANDIS Rep #:[id number] : 1965 56 From: Carmen Frias MD PCP: Dr. Solis Cool, DO Status:AD M IN [facility] Tele[facility] has confirmed receipt of a request for visit. This document confirms receipt of the order initiating the consult. To find the results of the consultation, please view the patient's reports for the scanned Telemed Consult. [facility] Work Phone: 1(397) 216-889602-06-2023 History and physical note Author Dr. Frias [facility] June 08, 2022 8:56pm Note Date/Time June 08, 2022 6 :19pm [facility] Medical Records Department [address] [place] [address] H&P Exam - Hospitalist 06/08/22 1817 MR#: [id number] Acct: [id number] Name: JOSIE LANDIS Rep #:[id number] : 1965 56 From: Carmen Frias MD PCP: Dr. Solis Cool, DO Status:AD M IN Location: [facility] HPI - General General Date of Admission: 06/08/22 Date of Service: 06/08/22 Chief Complaint: Increased confusion, mild motor difficulties. HPI Narrative The patient is a 56 y/o F w/ PMHx: Tobacco use, COPD, CAD s/p PCI, HTN, HLD, Anxiety and Depression/Bipolar disorder, recent 06/02/22 admission for chest painwith history of PCI x 2 ~ 3 weeks prior with ECHO at that time with EF 60% and normal LV systolic function as well as stress test which was unremarkable with unremarkable cardiac enzymes who now represents to the [facility] ED on 06/08/22 with history of nearly 5 days to 7 days of intermittent sensation of confusion with difficulty performing her normal tasks for example recently driving with her she is taking different routes than she might normally and she cannot understand why or if he takes a different route she cannot comprehend it as wellas activities that normally she can perform light going to the grocery store andbeing self-directed at getting items she has been able to do as well as 's observation that when she has attempted to drive she has difficulty staying within the lines therefore he is since that moment driven and not allowed to drive however this has been ongoing prompting him to eventually bringher to the ED for evaluation. She also reports difficulty with getting her wordsout occasionally although very fluent in the ED upon evaluation. Work-up in theED included T98.1, heart rate 70, BP 120/63, respiratory rate 26, 98% on room air, CBC with WC 5.2, him 113.5, platelet 172 without marked shift, unremarkablecoags, BMP with potassium 3.2, chloride 109 otherwise not marked appearing, troponin 6, urinalysis without any obvious evidence of UTI, CT of the brain withno acute intracranial finding, for up MRI of the brain with IV and without IV contrast with signal abnormality in the splenium of the corpus callosum, limitedadditional T2 signal hyperintensity nonspecific, CTA head and neck unremarkable,EKG with sinus bradycardia with no acute evidence of ischemia, chest x-ray with no acute cardiopulmonary findings. Reviewed MRI findings as well as CTA head and neck with radiologist upon patient admission. [facility] Medical History Anxiety and depression Bipolar 1 disorder CAD (coronary artery disease) COPD (chronic obstructive pulmonary disease) GERD (gastroesophageal reflux disease) HLD (hyperlipidemia) HTN (hypertension) Tobacco abuse Home Medications albuterol sulfate 90 mcg/actuation aerosol inhaler 8.5 gm inhalation DAILY breathing 07/05/20 [History Last Taken Unknown] clopidogrel 75 mg tablet 75 mg PO DAILY anti platelet 07/05/20 [History Last Taken 06/07/22] trazodone 50 mg tablet 400 mg PO QHS sleep 07/05/20 [History Last Taken 06/07/22] vilazodone 40 mg tablet (Viibryd) 40 mg PO DAILY mental health 10/08/21 [History Last Taken 06/07/22] alirocumab 75 mg/mL subcutaneous pen injector (Praluent Pen) 75 mg subcut Q14D cholesterol 06/02/22 [History Last Taken 05/29/22] aspirin 81 mg tablet,delayed release 81 mg PO DAILY heart health 06/02/22 [History Last Taken 06/08/22] bupropion HCl 150 mg tablet,12 hr sustained-release (Wellbutrin SR) 150 mg PO DAILY mental health 06/02/22 [History Last Taken 06/08/22] carbamazepine 200 mg tablet (Tegretol) 400 mg PO BID seizures 06/02/22 [History Last Taken 06/08/22] cariprazine 1.5 mg capsule (Vraylar) 1.5 mg PO DAILY mental health 06/02/22 [History Last Taken 06/07/22] clonazepam 0.5 mg tablet 0.5 mg PO BID anxiety 06/02/22 [History Last Taken 06/08/22] isosorbide mononitrate 30 mg tablet,extended release 24 hr 30 mg PO DAILY heart 06/02/22 [History Last Taken Unknown] losartan 25 mg tablet 25 mg PO DAILY blood pressure 06/02/22 [History Last Taken Unknown] pantoprazole 20 mg tablet,delayed release 40 mg PO DAILY reflux 06/02/22 [History Last Taken 06/08/22] topiramate 100 mg tablet (Topamax) 100 mg PO BID seizures 06/02/22 [History Last Taken 06/08/22] atorvastatin 80 mg tablet 80 mg PO QHS CHOLESTEROL 06/08/22 [History Last Taken 06/07/22] melatonin 10 mg tablet 10 mg PO QHS SLEEP 06/08/22 [History Last Taken 06/07/22] metoprolol succinate 25 mg tablet,extended release 24 hr 12.5 mg PO DAILY HTN 06/08/22 [History Last Taken 06/08/22] nicotine 21 mg/24 hr daily transdermal patch 1 patch transdermal DAILY SMOKING CEASATION 06/08/22 [History Last Taken 06/07/22] Allergy/AdvReac Type Severity Reaction Status Date / Time adhesive tape Allergy Hives Verified 06/02/22 05:13 aspirin [ASA] Allergy Other Verified 06/02/22 05:13 budesonide [From Symbicort] Allergy Anaphylaxis Verified 06/02/22 05:13 formoterol [From Symbicort] Allergy Anaphylaxis Verified 06/02/22 05:13 latex Allergy Hives Verified 06/02/22 05:13 Penicillins [PCN] Allergy Hives Verified 06/02/22 05:13 Family History Mother CAD (coronary artery disease) Heart disease Hypertension Myocardial infarction Father CAD (coronary artery disease) CVA (cerebral vascular accident) Heart disease Hypertension Surgical History H/O: hysterectomy History of cholecystectomy History of heart artery stent History of [place] fundoplication Hx of tonsillectomy Social History household members: spouse Smoking Status: Current every day smoker tobacco type: cigarettes alcohol intake: never substance use type: does not use ROS ROS Narrative Admission Review of Systems: CONSTITUTIONAL: No weight loss, fever, chills, + weakness or fatigue. HEENT: Eyes: No visual loss, blurred vision, double vision or yellow sclerae. Ears, Nose, Throat: No hearing loss, sneezing, congestion, runny nose or sore throat. SKIN: No rash or itching, lesions, wounds. CARDIOVASCULAR: No recurrent chest pain, chest pressure or chest discomfort, palpitations, edema, orthopnea, syncopal events. RESPIRATORY: No shortness of breath, cough or sputum, wheezing, hemoptysis. GASTROINTESTINAL: No anorexia, nausea, vomiting or diarrhea, abdominal pain, melena, BRBPR. GENITOURINARY: No dysuria, frequency, urgency or retention. NEUROLOGICAL: + Intermittent confusion, mild expressive aphasia reports as well as fine motor skill difficulties, no headache, dizziness, syncope, paralysis, ataxia, numbness or tingling in the extremities, focal weakness, change in bowel or bladder control, seizure. MUSCULOSKELETAL: + muscle, back pain, joint pain or stiffness. HEMATOLOGIC: + Easy bleeding or bruising. LYMPHATICS: No enlarged nodes. No history of splenectomy. PSYCHIATRIC: + history of depression or anxiety. ENDOCRINOLOGIC: No reports of sweating, cold or heat intolerance. No polyuria or polydipsia. ALLERGIES: + history of hives and anaphylaxis. Vital Signs Vital Signs Vital Signs: 06/08/22 12:28 06/08/22 13:00 06/08/22 13:05 Temperature 97.2 F L Temperature Source Temporal Pulse Rate 71 60 Respiratory Rate 18 18 Blood Pressure 124/91 H 143/101 H Blood Pressure Mean 102 115 Pulse Ox 97 97 Oxygen Delivery Method Room Air Room Air Room Air 06/08/22 13:05 06/08/22 14:02 06/08/22 17:00 Temperature 97.8 F Temperature Source Temporal Pulse Rate 89 59 L 59 L Respiratory Rate 16 23 H 16 Blood Pressure 143/101 H 129/80 H 140/120 H Blood Pressure Mean 115 96 126 Pulse Ox 99 97 97 Oxygen Delivery Method Room Air Room Air Room Air Weight Weight: 174 lb 11.2 oz Body Mass Index (BMI) 27.3 Physical Exam Narrative Physical Examination: General: Awake, alert, oriented x 3 and cooperative, seated upright in ED bed, no acute distress, very fluent currently with no evidence of any expressive aphasia. Skin: Normal color, normal turgor, no icterus, no cyanosis. HEENT: AT/NC, EOMI, PERRLA, MMM, no carotid bruits or JVD noted. Lungs: Diminished, greater bases, appropriate for, no rales, ronchi or wheezing. Heart: Currently mildly bradycardic with rate rhythm; no gallop, rub audible. Abdomen: Soft, overweight, NTTP, ND, distant normal BS, no HSM. Extremities: No cyanosis, clubbing, or edema. Neurological: Patient awake, alert, oriented as noted, cognitive function despite comments about recent confusion and forgetfulness remain intact, she could recall me from her previous admission and could give me appropriate events from then and recently but from discussions with spouse certainly has been abnormal recently and her activities and difficulty with certain motor activities; pupils equally reactive to light and accommodation, cranial nerves II-XII grossly normal, moving all 4 extremities, no focal deficits, strength preserved, finger-nose and bqiy-fh-[id number] appropriate, equivocal Babinski, sensation intact. Psychiatric: Affect appears normal, no acute evidence of depressive or anxiety feelings. Results Lab / Micro Data Result Diagrams: 06/08/22 13:02 06/08/22 13:02 Labs: Laboratory Results - last 24 hr 06/08/22 12:59: POC Glucose 100 06/08/22 13:00: Urine Color Yellow, Urine Clarity Sl. Cloudy, Urine pH 7.0, Ur Specific [place] 1.010, Urine Protein Negative, Urine Glucose (UA) Normal, Urine Ketones Negative, Urine Occult Blood 10 H, Urine Nitrite Negative, Urine Bilirubin Negative, Urine Urobilinogen Normal, Ur Leukocyte Esterase Negative, Urine RBC 0-5 SEEN, Urine WBC 0 SEEN, Ur Squamous Epith Cells 0 SEEN, Urine Bacteria 0 SEEN, Urine Mucus 0 SEEN 06/08/22 13:02: WBC 5.2, RBC 4.50, Hgb 13.5, Hct 40.4, MCV 89.8, MCH 30.0, MCHC 33.4, RDW Std Deviation 43.7, RDW Coeff of Benigno 13.4, Plt Count 172, MPV 9.0, Immature Gran % (Auto) 0.200, Neut % (Auto) 67.1, Lymph % (Auto) 23.5, Mccracken % (Auto) 6.7, Eos % (Auto) 2.1, Baso % (Auto) 0.4, Absolute Neuts (auto) 3.5, Absolute Lymphs (auto) 1.23, Nucleated RBC % 0 06/08/22 13:02: PT 13.5, INR 1.1, APTT 27.6 06/08/22 13:02: Sodium 140, Potassium 3.2 L, Chloride 109 H, Carbon Dioxide 24.0, Anion Gap 7, BUN 8, Creatinine 0.96, Estim Creat Clear Calc 65.15, Est GFR (MDRD) Af Amer 78, Est GFR (MDRD) Non-Af 64, BUN/Creatinine Ratio 8.3 L, Glucose 88, Calcium 8.8, Troponin I High Sens 6 Radiology Impression Brain MRI 06/08/22 00:00 IMPRESSION: Signal abnormality in the splenium of the corpus callosum. Differential considerations include demyelination, acute ischemia, high-grade glioma. Additional considerations include encephalitis or acute disseminated encephalomyelitis (ADEM), posterior reversible encephalopathy syndrome (PRES). Limited additional T2 signal hyperintensity are nonspecific and may be due to microvascular ischemia, demyelination, vasculitis. Electronically Signed: Jacqueline Banegas MD at 17:03 EST , Brain CT 06/08/22 13:03 IMPRESSION: Normal CT brain without intravenous contrast. Aspect score 10 Electronically Signed: Garrett Green MD at 13:54 EST , ADDENDUM: 06/08/22 1401 IMPRESSION: Normal CT brain without intravenous contrast. Aspect score 10 N.B. : The above Results were Read Back by Garrett Green MD to Riley Frances MD, and understanding confirmed on 06/08/2022 13:54:31 (ET). Electronically Signed: Garrett Green MD at 13:54 EST , Chest X-Ray 06/08/22 13:30 IMPRESSION: No acute cardiopulmonary abnormality. No interval change. Electronically Signed: Garrett Green MD at 13:42 EST , Assessment & Plan Assessment/Plan (1) Acute cerebrovascular accident (CVA): PLAN: Plan The patient is a 56 y/o F w/ PMHx: Tobacco use, COPD, CAD s/p PCI, HTN, HLD, Anxiety and Depression/Bipolar disorder, recent 06/02/22 admission for chest pain with history of PCI x 2 ~ 3 weeks prior with ECHO at that time with EF 60% and normal LV systolic function as well as stress test which was unremarkable with unremarkable cardiac enzymes who now represents to the [facility] ED on 06/08/22 with history of nearly 5 days to 7 days of intermittent sensation of confusion with difficulty performing her normal tasks as well as mild expressive aphasia and some difficulty with fine motor skills prompting eventual ED evaluation. #1. Acute Confusion, Mild expressive aphasia, Mild fine motor difficulties secondary to Acute CVA (signal abnormality in the splenium of the corpus callosum): Will admit to the PCU, as noted MRI brain and CTA head and neck obtained in the ED, will request ECHO with bubble study as not performed prior from recent records with bubble study, PT/OT/Speech/Nutrition evaluation per protocol. Will consult Neurology for evaluation. Will allow permissive HTN given although confusion onset has been ongoing the CT head was normal and if happened several days ago would have expected more subacute findings on CT head as well, will maintain on asa/plavix, statin w/ AM FLP, fall precautions. Mag, TSH, FLP, HgBA1c requested. #2. Hypokalemia: Admission K+ 3.2, magnesium level, supplementation given, repeat level in AM. #3.? CAD: Status post prior PCI, most recently approximately now 3 weeks prior to her current presentation with recent admission approximately 1 to 1.5-week prior to current evaluation with unremarkable echocardiogram unfortunately not performed with bubble study at that time as well as unremarkable stress testing, will continue aspirin, Plavix, statin, maintaining permissive hypertension as noted. #4.? Chronic COPD: Not on chronic inhalers, may add if necessary otherwise in the interim PRN albuterol, HOB, IS parameters. #5.? Hypertension: Given presentation with no subacute findings on CT of the head but noted on MRI we will hold on patient's continued blood pressure medications and will maintain permissive hypertension to be cautious, as needed agents per stroke protocol, add back once appropriate. #6.? Hyperlipidemia: Continue statin, also on praluent outpatient, FLP in AM. #7.? Tobacco Abuse: Encouraged cessation, inpatient consultation per RT, NR if desired. #8.? Anxiety and depression/bipolar disorder: We will continue patient home significant psychiatric regimen. #9.? DVT prophylaxis: SCDs, Lovenox. Admission Evaluation Time spent evaluating chart, patient history, patient evaluation, care planning and discussion with specialists: 75 minutes. Charges/Coding Visit Charges Inpatient E&M: 13242 Init Hosp L3 06/08/222055 <Electronically signed by Carmen Frias MD> Cosigner Signature (if applicable): CC: Dr. Carmen Frias MD; Dr. Solis Cool, DO~ Signed [facility] Work Phone: 1(413) 969-991602-06-2023 History and physical note Author Dr. Frias [facility] June 08, 2022 8:56pm Note Date/Time June 08, 2022 6 :19pm [facility] Medical Records Department [address] [place] [address] H&P Exam - Hospitalist 06/08/221816 MR#: [id number] Acct: [id number] Name: JOSIE LANDIS Rep #:[id number] : [id number] 56 From: Carmen Frias MD PCP: Dr. Solis Cool, DO Status:AD M IN Location: PCU [facility] HPI - General General Date of Admission: 06/08/22 Date of Service: 06/08/22 Chief Complaint: Increased confusion, mild motor difficulties. HPI Narrative The patient is a 56 y/o F w/ PMHx: Tobacco use, COPD, CAD s/p PCI, HTN, HLD, Anxiety and Depression/Bipolar disorder, recent 06/02/22 admission for chest painwith history of PCI x 2 ~ 3 weeks prior with ECHO at that time with EF 60% and normal LV systolic function as well as stress test which was unremarkable with unremarkable cardiac enzymes who now represents to the [facility] ED on 06/08/22 with history of nearly 5 days to 7 days of intermittent sensation of confusion with difficulty performing her normal tasks for example recently driving with her she is taking different routes than she might normally and she cannot understand why or if he takes a different route she cannot comprehend it as wellas activities that normally she can perform light going to the grocery store andbeing self-directed at getting items she has been able to do as well as 's observation that when she has attempted to drive she has difficulty staying within the lines therefore he is since that moment driven and not allowed to drive however this has been ongoing prompting him to eventually bringher to the ED for evaluation. She also reports difficulty with getting her wordsout occasionally although very fluent in the ED upon evaluation. Work-up in theED included T98.1, heart rate 70, BP 120/63, respiratory rate 26, 98% on room air, CBC with WC 5.2, him 113.5, platelet 172 without marked shift, unremarkablecoags, BMP with potassium 3.2, chloride 109 otherwise not marked appearing, troponin 6, urinalysis without any obvious evidence of UTI, CT of the brain withno acute intracranial finding, for up MRI of the brain with IV and without IV contrast with signal abnormality in the splenium of the corpus callosum, limitedadditional T2 signal hyperintensity nonspecific, CTA head and neck unremarkable,EKG with sinus bradycardia with no acute evidence of ischemia, chest x-ray with no acute cardiopulmonary findings. Reviewed MRI findings as well as CTA head and neck with radiologist upon patient admission. [facility] Medical History Anxiety and depression Bipolar 1 disorder CAD (coronary artery disease) COPD (chronic obstructive pulmonary disease) GERD (gastroesophageal reflux disease) HLD (hyperlipidemia) HTN (hypertension) Tobacco abuse Home Medications albuterol sulfate 90 mcg/actuation aerosol inhaler 8.5 gm inhalation DAILY breathing 07/05/20 [History Last Taken Unknown] clopidogrel 75 mg tablet 75 mg PO DAILY anti platelet 07/05/20 [History Last Taken 06/07/22] trazodone 50 mg tablet 400 mg PO QHS sleep 07/05/20 [History Last Taken 06/07/22] vilazodone 40 mg tablet (Viibryd) 40 mg PO DAILY mental health 10/08/21 [History Last Taken 06/07/22] alirocumab 75 mg/mL subcutaneous pen injector (Praluent Pen) 75 mg subcut Q14D cholesterol 06/02/22 [History Last Taken 05/29/22] aspirin 81 mg tablet,delayed release 81 mg PO DAILY heart health 06/02/22 [History Last Taken 06/08/22] bupropion HCl 150 mg tablet,12 hr sustained-release (Wellbutrin SR) 150 mg PO DAILY mental health 06/02/22 [History Last Taken 06/08/22] carbamazepine 200 mg tablet (Tegretol) 400 mg PO BID seizures 06/02/22 [History Last Taken 06/08/22] cariprazine 1.5 mg capsule (Vraylar) 1.5 mg PO DAILY mental health 06/02/22 [History Last Taken 06/07/22] clonazepam 0.5 mg tablet 0.5 mg PO BID anxiety 06/02/22 [History Last Taken 06/08/22] isosorbide mononitrate 30 mg tablet,extended release 24 hr 30 mg PO DAILY heart 06/02/22 [History Last Taken Unknown] losartan 25 mg tablet 25 mg PO DAILY blood pressure 06/02/22 [History Last Taken Unknown] pantoprazole 20 mg tablet,delayed release 40 mg PO DAILY reflux 06/02/22 [History Last Taken 06/08/22] topiramate 100 mg tablet (Topamax) 100 mg PO BID seizures 06/02/22 [History Last Taken 06/08/22] atorvastatin 80 mg tablet 80 mg PO QHS CHOLESTEROL 06/08/22 [History Last Taken 06/07/22] melatonin 10 mg tablet 10 mg PO QHS SLEEP 06/08/22 [History Last Taken 06/07/22] metoprolol succinate 25 mg tablet,extended release 24 hr 12.5 mg PO DAILY HTN 06/08/22 [History Last Taken 06/08/22] nicotine 21 mg/24 hr daily transdermal patch 1 patch transdermal DAILY SMOKING CEASATION 06/08/22 [History Last Taken 06/07/22] Allergy/AdvReac Type Severity Reaction Status Date / Time adhesive tape Allergy Hives Verified 06/02/22 05:13 aspirin [ASA] Allergy Other Verified 06/02/22 05:13 budesonide [From Symbicort] Allergy Anaphylaxis Verified 06/02/22 05:13 formoterol [From Symbicort] Allergy Anaphylaxis Verified 06/02/22 05:13 latex Allergy Hives Verified 06/02/22 05:13 Penicillins [PCN] Allergy Hives Verified 06/02/22 05:13 Family History Mother CAD (coronary artery disease) Heart disease Hypertension Myocardial infarction Father CAD (coronary artery disease) CVA (cerebral vascular accident) Heart disease Hypertension Surgical History H/O: hysterectomy History of cholecystectomy History of heart artery stent History of [place] fundoplication Hx of tonsillectomy Social History household members: spouse Smoking Status: Current every day smoker tobacco type: cigarettes alcohol intake: never substance use type: does not use ROS ROS Narrative Admission Review of Systems: CONSTITUTIONAL: No weight loss, fever, chills, + weakness or fatigue. HEENT: Eyes: No visual loss, blurred vision, double vision or yellow sclerae. Ears, Nose, Throat: No hearing loss, sneezing, congestion, runny nose or sore throat. SKIN: No rash or itching, lesions, wounds. CARDIOVASCULAR: No recurrent chest pain, chest pressure or chest discomfort, palpitations, edema, orthopnea, syncopal events. RESPIRATORY: No shortness of breath, cough or sputum, wheezing, hemoptysis. GASTROINTESTINAL: No anorexia, nausea, vomiting or diarrhea, abdominal pain, melena, BRBPR. GENITOURINARY: No dysuria, frequency, urgency or retention. NEUROLOGICAL: + Intermittent confusion, mild expressive aphasia reports as well as fine motor skill difficulties, no headache, dizziness, syncope, paralysis, ataxia, numbness or tingling in the extremities, focal weakness, change in bowel or bladder control, seizure. MUSCULOSKELETAL: + muscle, back pain, joint pain or stiffness. HEMATOLOGIC: + Easy bleeding or bruising. LYMPHATICS: No enlarged nodes. No history of splenectomy. PSYCHIATRIC: + history of depression or anxiety. ENDOCRINOLOGIC: No reports of sweating, cold or heat intolerance. No polyuria or polydipsia. ALLERGIES: + history of hives and anaphylaxis. Vital Signs Vital Signs Vital Signs: 06/08/22 12:28 06/08/22 13:00 06/08/22 13:05 Temperature 97.2 F L Temperature Source Temporal Pulse Rate 71 60 Respiratory Rate 18 18 Blood Pressure 124/91 H 143/101 H Blood Pressure Mean 102 115 Pulse Ox 97 97 Oxygen Delivery Method Room Air Room Air Room Air 06/08/22 13:05 06/08/22 14:02 06/08/22 17:00 Temperature 97.8 F Temperature Source Temporal Pulse Rate 89 59 L 59 L Respiratory Rate 16 23 H 16 Blood Pressure 143/101 H 129/80 H 140/120 H Blood Pressure Mean 115 96 126 Pulse Ox 99 97 97 Oxygen Delivery Method Room Air Room Air Room Air Weight Weight: 174 lb 11.2 oz Body Mass Index (BMI) 27.3 Physical Exam Narrative Physical Examination: General: Awake, alert, oriented x 3 and cooperative, seated upright in ED bed, no acute distress, very fluent currently with no evidence of any expressive aphasia. Skin: Normal color, normal turgor, no icterus, no cyanosis. HEENT: AT/NC, EOMI, PERRLA, MMM, no carotid bruits or JVD noted. Lungs: Diminished, greater bases, appropriate for, no rales, ronchi or wheezing. Heart: Currently mildly bradycardic with rate rhythm; no gallop, rub audible. Abdomen: Soft, overweight, NTTP, ND, distant normal BS, no HSM. Extremities: No cyanosis, clubbing, or edema. Neurological: Patient awake, alert, oriented as noted, cognitive function despite comments about recent confusion and forgetfulness remain intact, she could recall me from her previous admission and could give me appropriate events from then and recently but from discussions with spouse certainly has been abnormal recently and her activities and difficulty with certain motor activities; pupils equally reactive to light and accommodation, cranial nerves II-XII grossly normal, moving all 4 extremities, no focal deficits, strength preserved, finger-nose and [id number] appropriate, equivocal Babinski, sensation intact. Psychiatric: Affect appears normal, no acute evidence of depressive or anxiety feelings. Results Lab / Micro Data Result Diagrams: 06/08/22 13:02 06/08/22 13:02 Labs: Laboratory Results - last 24 hr 06/08/22 12:59: POC Glucose 100 06/08/22 13:00: Urine Color Yellow, Urine Clarity Sl. Cloudy, Urine pH 7.0, Ur Specific [place] 1.010, Urine Protein Negative, Urine Glucose (UA) Normal, Urine Ketones Negative, Urine Occult Blood 10 H, Urine Nitrite Negative, Urine Bilirubin Negative, Urine Urobilinogen Normal, Ur Leukocyte Esterase Negative, Urine RBC 0-5 SEEN, Urine WBC 0 SEEN, Ur Squamous Epith Cells 0 SEEN, Urine Bacteria 0 SEEN, Urine Mucus 0 SEEN 06/08/22 13:02: WBC 5.2, RBC 4.50, Hgb 13.5, Hct 40.4, MCV 89.8, MCH 30.0, MCHC 33.4, RDW Std Deviation 43.7, RDW Coeff of Benigno 13.4, Plt Count 172, MPV 9.0, Immature Gran % (Auto) 0.200, Neut % (Auto) 67.1, Lymph % (Auto) 23.5, Mccracken % (Auto) 6.7, Eos % (Auto) 2.1, Baso % (Auto) 0.4, Absolute Neuts (auto) 3.5, Absolute Lymphs (auto) 1.23, Nucleated RBC % 0 06/08/22 13:02: PT 13.5, INR 1.1, APTT 27.6 06/08/22 13:02: Sodium 140, Potassium 3.2 L, Chloride 109 H, Carbon Dioxide 24.0, Anion Gap 7, BUN 8, Creatinine 0.96, Estim Creat Clear Calc 65.15, Est GFR (MDRD) Af Amer 78, Est GFR (MDRD) Non-Af 64, BUN/Creatinine Ratio 8.3 L, Glucose 88, Calcium 8.8, Troponin I High Sens 6 Radiology Impression Brain MRI 06/08/22 00:00 IMPRESSION: Signal abnormality in the splenium of the corpus callosum. Differential considerations include demyelination, acute ischemia, high-grade glioma. Additional considerations include encephalitis or acute disseminated encephalomyelitis (ADEM), posterior reversible encephalopathy syndrome (PRES). Limited additional T2 signal hyperintensity are nonspecific and may be due to microvascular ischemia, demyelination, vasculitis. Electronically Signed: Jacqueline Banegas MD at 17:03 EST Reading Location ID and State: [id number] / Tel , Service support , Brain CT 06/08/22 13:03 IMPRESSION: Normal CT brain without intravenous contrast. Aspect score 10 Electronically Signed: Garrett Green MD at 13:54 EST , ADDENDUM: 06/08/22 1401 IMPRESSION: Normal CT brain without intravenous contrast. Aspect score 10 N.B. : The above Results were Read Back by Garrett Green MD to Riley Frances MD, and understanding confirmed on 06/08/2022 13:54:31 (ET). Electronically Signed: Garrett Green MD at 13:54 EST , Chest X-Ray 06/08/22 13:30 IMPRESSION: No acute cardiopulmonary abnormality. No interval change. Electronically Signed: Garrett Green MD at 13:42 EST , Assessment & Plan Assessment/Plan (1) Acute cerebrovascular accident (CVA): PLAN: Plan The patient is a 56 y/o F w/ PMHx: Tobacco use, COPD, CAD s/p PCI, HTN, HLD, Anxiety and Depression/Bipolar disorder, recent 06/02/22 admission for chest pain with history of PCI x 2 ~ 3 weeks prior with ECHO at that time with EF 60% and normal LV systolic function as well as stress test which was unremarkable with unremarkable cardiac enzymes who now represents to the [facility] ED on 06/08/22 with history of nearly 5 days to 7 days of intermittent sensation of confusion with difficulty performing her normal tasks as well as mild expressive aphasia and some difficulty with fine motor skills prompting eventual ED evaluation. #1. Acute Confusion, Mild expressive aphasia, Mild fine motor difficulties secondary to Acute CVA (signal abnormality in the splenium of the corpus callosum): Will admit to the PCU, as noted MRI brain and CTA head and neck obtained in the ED, will request ECHO with bubble study as not performed prior from recent records with bubble study, PT/OT/Speech/Nutrition evaluation per protocol. Will consult Neurology for evaluation. Will allow permissive HTN given although confusion onset has been ongoing the CT head was normal and if happened several days ago would have expected more subacute findings on CT head as well, will maintain on asa/plavix, statin w/ AM FLP, fall precautions. Mag, TSH, FLP, HgBA1c requested. #2. Hypokalemia: Admission K+ 3.2, magnesium level, supplementation given, repeat level in AM. #3.? CAD: Status post prior PCI, most recently approximately now 3 weeks prior to her current presentation with recent admission approximately 1 to 1.5-week prior to current evaluation with unremarkable echocardiogram unfortunately not performed with bubble study at that time as well as unremarkable stress testing, will continue aspirin, Plavix, statin, maintaining permissive hypertension as noted. #4.? Chronic COPD: Not on chronic inhalers, may add if necessary otherwise in the interim PRN albuterol, HOB, IS parameters. #5.? Hypertension: Given presentation with no subacute findings on CT of the head but noted on MRI we will hold on patient's continued blood pressure medications and will maintain permissive hypertension to be cautious, as needed agents per stroke protocol, add back once appropriate. #6.? Hyperlipidemia: Continue statin, also on praluent outpatient, FLP in AM. #7.? Tobacco Abuse: Encouraged cessation, inpatient consultation per RT, NR if desired. #8.? Anxiety and depression/bipolar disorder: We will continue patient home significant psychiatric regimen. #9.? DVT prophylaxis: SCDs, Lovenox. Admission Evaluation Time spent evaluating chart, patient history, patient evaluation, care planning and discussion with specialists: 75 minutes. Charges/Coding Visit Charges Inpatient E&M: 73056 Init Hosp L3 06/08/222055 <Electronically signed by Carmen Frias MD> Cosigner Signature (if applicable): CC: Dr. Carmen Frias MD; Dr. Solis Cool, ~ Signed [facility] Work Phone: 1(100) 181-846902-06-[address] River [facility] June 08, 2022 5:51pm Note Date/Time June 08, 2022 3 :12pm [facility] Medical Records Department [address] [place] [address] Emergency Department Summary 06/08/22 MR#: [id number] Acct: [id number] Name: JOSIE LANDIS Rep #:[id number] : 1965 [id number] From: Juan Daniel Dunham PCP: Dr. Solis Cool, Status:RE G ER Location: ED HPI History of Present Illness Chief Complaint: Confusion Informant: patient and spouse/S.O. Narrative Narrative: Patient presents referred in by her project control manager for [facility] for evaluation of confusion for the past 6 days. She reports she had a cardiac stent placed 2 and half weeks ago there. She is on aspirin and Plavix. Of noteshe states she had continued chest pain and was admitted a week ago here for monitoring with no interventions. She states chest pain has improved since. States after leaving she has been having confusion with forgetfulness. She states she has had trouble with speech and getting her words out. She has no stroke history. She denies urinary symptoms denies cough. Denies headache symptoms. She states she is taking her medications. She brought her paperwork from [facility], reviewed she had a new left circumflex stent that was 80% blocked decreased on the left 5%. She had a previous right RCA stent that is 60% blocked. She has a 40% proximal LAD from review of her drawings. Reports is had previous MRI in the past. [facility] Medical History Anxiety and depression Bipolar 1 disorder CAD (coronary artery disease) COPD (chronic obstructive pulmonary disease) GERD (gastroesophageal reflux disease) HLD (hyperlipidemia) HTN (hypertension) Tobacco abuse Home Medications albuterol sulfate 90 mcg/actuation aerosol inhaler 8.5 gm inhalation DAILY breathing 07/05/20 [History Last Taken Unknown] clopidogrel 75 mg tablet 75 mg PO DAILY anti platelet 07/05/20 [History Last Taken Unknown] trazodone 50 mg tablet 400 mg PO QHS sleep 07/05/20 [History Last Taken Unknown] vilazodone 40 mg tablet (Viibryd) 40 mg PO DAILY mental health 10/08/21 [History Last Taken Unknown] alirocumab 75 mg/mL subcutaneous pen injector (Praluent Pen) 75 mg subcut Q14D cholesterol 06/02/22 [History Last Taken Unknown] aspirin 81 mg tablet,delayed release 81 mg PO DAILY heart health 06/02/22 [History Last Taken Unknown] bupropion HCl 150 mg tablet,12 hr sustained-release (Wellbutrin SR) 150 mg PO DAILY mental health 06/02/22 [History Last Taken Unknown] carbamazepine 200 mg tablet (Tegretol) 200 mg PO BID seizures 06/02/22 [History Last Taken Unknown] cariprazine 1.5 mg capsule (Vraylar) 1.5 mg PO DAILY mental health 06/02/22 [History Last Taken Unknown] clonazepam 0.5 mg tablet 0.5 mg PO BID anxiety 06/02/22 [History Last Taken Unknown] isosorbide mononitrate 30 mg tablet,extended release 24 hr 30 mg PO DAILY heart 06/02/22 [History Last Taken Unknown] losartan 25 mg tablet 25 mg PO DAILY blood pressure 06/02/22 [History Last Taken Unknown] melatonin 10 mg tablet 10 mg PO QHS #30 tabs 06/02/22 [Rx Last Taken Unknown] pantoprazole 20 mg tablet,delayed release 20 mg PO DAILY reflux 06/02/22 [History Last Taken Unknown] topiramate 100 mg tablet (Topamax) 100 mg PO BID seizures 06/02/22 [History Last Taken Unknown] Allergy/AdvReac Type Severity Reaction Status Date / Time adhesive tape Allergy Hives Verified 06/02/22 05:13 aspirin [ASA] Allergy Other Verified 06/02/22 05:13 budesonide [From Symbicort] Allergy Anaphylaxis Verified 06/02/22 05:13 formoterol [From Symbicort] Allergy Anaphylaxis Verified 06/02/22 05:13 latex Allergy Hives Verified 06/02/22 05:13 Penicillins [PCN] Allergy Hives Verified 06/02/22 05:13 Family History Mother CAD (coronary artery disease) Heart disease Hypertension Myocardial infarction Father CAD (coronary artery disease) CVA (cerebral vascular accident) Heart disease Hypertension Surgical History H/O: hysterectomy History of cholecystectomy History of heart artery stent History of [place] fundoplication Hx of tonsillectomy Social History household members: spouse Smoking Status: Current every day smoker tobacco type: cigarettes alcohol intake: never substance use type: does not use ROS ROS ED Constitutional Constitutional ED: Denies chills, fever(s) or sweats Eyes Eyes: Denies change in vision ENT ENT ED: Denies dysphagia or sore throat Cardiovascular Cardiovascular: Denies chest pain, leg edema, palpitations or racing heartbeat Respiratory/Chest Respiratory/Chest: Denies cough, dyspnea or dyspnea on exertion Gastrointestinal Gastrointestinal: Denies abdominal pain, diarrhea, nausea or vomiting Genitourinary Genitourinary ED: Denies dysuria, hematuria or urinary frequency Musculoskeletal Musculoskeletal: Denies back pain, extremity pain or neck pain Integumentary Denies rash or wounds Neurologic Neurologic: Reports other Details: Confusion with memory issues ; Denies headache(s), paresthesias or weakness EXAM Physical Exam Const Vital Signs: 06/08/22 12:28 06/08/22 13:00 06/08/22 13:05 Temperature 97.2 F L Temperature Source Temporal Pulse Rate 71 60 Respiratory Rate 18 18 Blood Pressure 124/91 H 143/101 H Blood Pressure Mean 102 115 Pulse Ox 97 97 Oxygen Delivery Method Room Air Room Air Room Air 06/08/22 13:05 06/08/22 14:02 Temperature 97.8 F Temperature Source Temporal Pulse Rate 89 59 L Respiratory Rate 16 23 H Blood Pressure 143/101 H 129/80 H Blood Pressure Mean 115 96 Pulse Ox 99 97 Oxygen Delivery Method Room Air Room Air Positive well nourished and well developed General Appearance ED: well developed and NAD HEENT Reports moist mucous membranes normocephalic and atraumatic Eyes PERRL, EOMs intact bilaterally and conjunctivae normal General Eye ED: Yes normal appearance of both eyes Neck no lymphadenopathy and supple General: Negative for tenderness Chest Wall Chest: Negative for tenderness Resp normal respiratory effort and normal air movement Effort and Inspection: symmetric chest movement; Negative for respiratory distress Cardio regular rate, regular rhythm and no murmurs Peripheral Pulses: pulses 2+ throughout GI normal to inspection, nondistended, normoactive bowel sounds and non-tender Palpation: Negative for guarding or rebound tenderness present Back/Spine no CVA tenderness and no thoracic nor lumbar tenderness Extremity normal to inspection General Extremety ED: Negative for edema or tenderness General Extremity: Negative for edema Neuro oriented x3 and no sensory deficits noted Neuro Narrative: NIH of 0. However patient was slow to response when reading words and pictures. Sensorium / Orientation: awake and alert Skin no rashes or lesions noted and no wounds MDM MDM MDM Narrative Medical decision making narrative: Interventions / MDM: Differential diagnosis: CVA, infection, electrolyte abnormalities Diagnosis considered but do not suspect: N/A My EKG interpretation: Sinus rhythm rate of [address] or T wave changes. Imaging independently reviewed and interpreted by myself: 1 view chest x-ray no acute process. CT brain interpreted by myself and read by radiology negative for acute process. External documents reviewed: Discharge paperwork from [facility]. Test considered but not ordered:N/A ED course: Patient had NIH of 0 however with confusion reporting troubles with speech, potential stroke is in the differential.'s been going on for 6 days. She is not a tPA candidate. CT brain discussion with rate does not review showed no acute process. She has no weakness or any debilitating factors at this time. Discussed with radiologist about obtaining MRI in the ED for which she is cleared to rule out stroke. Especially has been going on for 6 days. Laboratory studies were read obtained hemoglobin 13.5 white count 5.2 lites normal potassium 3.2 so 1 creatinine of 0.96. Urine was negative for infection. Chest x-ray negative for infection. MRI with concerning changes of the corpus callosum. Stroke differential out 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 disease versus glioma or encephalitis, however she has 6 days of symptoms she is afebrile and not likely infectious. Her symptoms more likely of stroke concerns. Re-evaluation: Clinically stable, I spoke with hospitalist, will order CT angiogram for vascular studies of the head and neck. She will likely need a bubble study in the hospital. Patient updated. Admitted to PCU. Disposition discussed with patient/family/significant other: Hospitalist, Dr. Frias Case discussed with consulting clinician: N/A Lab Data Attestation: I reviewed the patient's lab results. Labs: Laboratory Results - last 24 hr 06/08/22 06/08/22 06/08/22 12:59 13:00 13:02 WBC 5.2 RBC 4.50 Hgb 13.5 Hct 40.4 MCV 89.8 MCH 30.0 MCHC 33.4 RDW Std Deviation 43.7 RDW Coeff of Benigno 13.4 Plt Count 172 MPV 9.0 Immature Gran % (Auto) 0.200 Neut % (Auto) 67.1 Lymph % (Auto) 23.5 Mccracken % (Auto) 6.7 Eos % (Auto) 2.1 Baso % (Auto) 0.4 Absolute Neuts (auto) 3.5 Absolute Lymphs (auto) 1.23 Nucleated RBC % 0 PT INR APTT Sodium Potassium Chloride Carbon Dioxide Anion Gap BUN Creatinine Estim Creat Clear Calc Est GFR (MDRD) Af Amer Est GFR (MDRD) Non-Af BUN/Creatinine Ratio Glucose Calcium Troponin I High Sens Urine Color Yellow Urine Clarity Sl. Cloudy Urine pH 7.0 Ur Specific [place] 1.010 Urine Protein Negative Urine Glucose (UA) Normal Urine Ketones Negative Urine Occult Blood 10 H Urine Nitrite Negative Urine Bilirubin Negative Urine Urobilinogen Normal Ur Leukocyte Esterase Negative Urine RBC 0-5 SEEN Urine WBC 0 SEEN Ur Squamous Epith Cells 0 SEEN Urine Bacteria 0 SEEN Urine Mucus 0 SEEN POC Glucose 100 06/08/22 06/08/22 13:02 13:02 WBC RBC Hgb Hct MCV MCH MCHC RDW Std Deviation RDW Coeff of Benigno Plt Count MPV Immature Gran % (Auto) Neut % (Auto) Lymph % (Auto) Mccracken % (Auto) Eos % (Auto) Baso % (Auto) Absolute Neuts (auto) Absolute Lymphs (auto) Nucleated RBC % PT 13.5 INR 1.1 APTT 27.6 Sodium 140 Potassium 3.2 L Chloride 109 H Carbon Dioxide 24.0 Anion Gap 7 BUN 8 Creatinine 0.96 Estim Creat Clear Calc 65.15 Est GFR (MDRD) Af Amer 78 Est GFR (MDRD) Non-Af 64 BUN/Creatinine Ratio 8.3 L Glucose 88 Calcium 8.8 Troponin I High Sens 6 Urine Color Urine Clarity Urine pH Ur Specific [place] Urine Protein Urine Glucose (UA) Urine Ketones Urine Occult Blood Urine Nitrite Urine Bilirubin Urine Urobilinogen Ur Leukocyte Esterase Urine RBC Urine WBC Ur Squamous Epith Cells Urine Bacteria Urine Mucus POC Glucose Radiography Diagnostic Testing: Clinical Impression(s) from Imaging Studies Brain MRI 06/08/22 00:00 IMPRESSION: Signal abnormality in the splenium of the corpus callosum. Differential considerations include demyelination, acute ischemia, high-grade glioma. Additional considerations include encephalitis or acute disseminated encephalomyelitis (ADEM), posterior reversible encephalopathy syndrome (PRES). Limited additional T2 signal hyperintensity are nonspecific and may be due to microvascular ischemia, demyelination, vasculitis. Electronically Signed: Jacqueline Banegas MD at 17:03 EST Reading Location ID and State: [id number] / Tel , Service support , Brain CT 06/08/22 13:03 IMPRESSION: Normal CT brain without intravenous contrast. Aspect score 10 Electronically Signed: Garrett Green MD at 13:54 EST , ADDENDUM: 06/08/22 1401 IMPRESSION: Normal CT brain without intravenous contrast. Aspect score 10 N.B. : The above Results were Read Back by Garrett Green MD to Riley Frances MD, and understanding confirmed on 06/08/2022 13:54:31 (ET). Electronically Signed: Garrett Green MD at 13:54 EST , Chest X-Ray 06/08/22 13:30 IMPRESSION: No acute cardiopulmonary abnormality. No interval change. Electronically Signed: Garrett Green MD at 13:42 EST , Discharge Plan Triage Chief Complaint: Confusion ED Provider: Juan Daniel River Dx/Rx/DC Orders Clinical Impression: Acute cerebrovascular accident (CVA), History of CAD (coronary artery disease), Confusion Prescriptions: No Action trazodone 50 MG tablet 400 mg PO QHS clopidogrel 75 MG tablet 75 mg PO DAILY albuterol sulfate 8.5 GM HFA aerosol inhaler 8.5 gm INHALATION DAILY Label Comments: INHALE 2 PUFFS BY MOUTH EVERY 6 HOURS NEEDED vilazodone [Viibryd] 40 mg Tablet 40 mg PO DAILY bupropion HCl [Wellbutrin SR] 150 mg Tablet Sustained-Release 12 Hr 150 mg PO DAILY isosorbide mononitrate 30 mg Tablet Extended Release 24 Hr 30 mg PO DAILY Hold Instructions: Resume on 06/10/22. With your project control manager regarding when to resume clonazepam 0.5 mg Tablet 0.5 mg PO BID pantoprazole 20 mg Tablet,Delayed Release (Dr/Ec) 20 mg PO DAILY carbamazepine [Tegretol] 200 mg Tablet 200 mg PO BID losartan 25 mg Tablet 25 mg PO DAILY Hold Instructions: Resume on 06/10/22. With your project control manager regarding when to resume topiramate [Topamax] 100 mg Tablet 100 mg PO BID Vraylar 1.5 mg Capsule 1.5 mg PO DAILY aspirin 81 mg Tablet,Delayed Release (Dr/Ec) 81 mg PO DAILY Praluent Pen 75 mg/mL Pen Injector 75 mg SUBCUT Q14D melatonin 10 mg Tablet 10 mg PO QHS Qty: 30 0RF Primary Care Provider: Solis Cool Referrals: Solis Cool DO [Primary Care Provider] - Disposition Disposition: [facility] What to do if you have Problems For any increased pain, shortness of breath, bleeding, nausea or vomiting, chestpain, or any unexpected problems, contact your Primary Care Provider. Call [facility] ([phone]) or report to the closest Emergency Room. Call 911 if necessary. 06/08/22 1751 <Electronically signed by Juan Daniel Dunham> Cosigner Signature (if applicable): CC: Dr. Solis Cool DO ~ Signed [facility] Work Phone: [phone]) 830-322102-06-[address] River [facility] June 08, 2022 5:51pm Note Date/Time June 08, 2022 3 :12pm [facility] Medical Records Department [address] [place] [address] Emergency Department Summary 06/08/22 MR#: [id number] Acct: [id number] Name: JOSIE LANDIS Rep #:[id number] : [id number] From: Juan Daniel Dunham PCP: Dr. Solis Cool DO Status:RE G ER Location: ED HPI History of Present Illness Chief Complaint: Confusion Informant: patient and spouse/S.O. Narrative Narrative: Patient presents referred in by her project control manager for [facility] for evaluation of confusion for the past 6 days. She reports she had a cardiac stent placed 2 and half weeks ago there. She is on aspirin and Plavix. Of noteshe states she had continued chest pain and was admitted a week ago here for monitoring with no interventions. She states chest pain has improved since. States after leaving she has been having confusion with forgetfulness. She states she has had trouble with speech and getting her words out. She has no stroke history. She denies urinary symptoms denies cough. Denies headache symptoms. She states she is taking her medications. She brought her paperwork from [facility], reviewed she had a new left circumflex stent that was 80% blocked decreased on the left 5%. She had a previous right RCA stent that is 60% blocked. She has a 40% proximal LAD from review of her drawings. Reports is had previous MRI in the past. [facility] Medical History Anxiety and depression Bipolar 1 disorder CAD (coronary artery disease) COPD (chronic obstructive pulmonary disease) GERD (gastroesophageal reflux disease) HLD (hyperlipidemia) HTN (hypertension) Tobacco abuse Home Medications albuterol sulfate 90 mcg/actuation aerosol inhaler 8.5 gm inhalation DAILY breathing 07/05/20 [History Last Taken Unknown] clopidogrel 75 mg tablet 75 mg PO DAILY anti platelet 07/05/20 [History Last Taken Unknown] trazodone 50 mg tablet 400 mg PO QHS sleep 07/05/20 [History Last Taken Unknown] vilazodone 40 mg tablet (Viibryd) 40 mg PO DAILY mental health 10/08/21 [History Last Taken Unknown] alirocumab 75 mg/mL subcutaneous pen injector (Praluent Pen) 75 mg subcut Q14D cholesterol 06/02/22 [History Last Taken Unknown] aspirin 81 mg tablet,delayed release 81 mg PO DAILY heart health 06/02/22 [History Last Taken Unknown] bupropion HCl 150 mg tablet,12 hr sustained-release (Wellbutrin SR) 150 mg PO DAILY mental health 06/02/22 [History Last Taken Unknown] carbamazepine 200 mg tablet (Tegretol) 200 mg PO BID seizures 06/02/22 [History Last Taken Unknown] cariprazine 1.5 mg capsule (Vraylar) 1.5 mg PO DAILY mental health 06/02/22 [History Last Taken Unknown] clonazepam 0.5 mg tablet 0.5 mg PO BID anxiety 06/02/22 [History Last Taken Unknown] isosorbide mononitrate 30 mg tablet,extended release 24 hr 30 mg PO DAILY heart 06/02/22 [History Last Taken Unknown] losartan 25 mg tablet 25 mg PO DAILY blood pressure 06/02/22 [History Last Taken Unknown] melatonin 10 mg tablet 10 mg PO QHS #30 tabs 06/02/22 [Rx Last Taken Unknown] pantoprazole 20 mg tablet,delayed release 20 mg PO DAILY reflux 06/02/22 [History Last Taken Unknown] topiramate 100 mg tablet (Topamax) 100 mg PO BID seizures 06/02/22 [History Last Taken Unknown] Allergy/AdvReac Type Severity Reaction Status Date / Time adhesive tape Allergy Hives Verified 06/02/22 05:13 aspirin [ASA] Allergy Other Verified 06/02/22 05:13 budesonide [From Symbicort] Allergy Anaphylaxis Verified 06/02/22 05:13 formoterol [From Symbicort] Allergy Anaphylaxis Verified 06/02/22 05:13 latex Allergy Hives Verified 06/02/22 05:13 Penicillins [PCN] Allergy Hives Verified 06/02/22 05:13 Family History Mother CAD (coronary artery disease) Heart disease Hypertension Myocardial infarction Father CAD (coronary artery disease) CVA (cerebral vascular accident) Heart disease Hypertension Surgical History H/O: hysterectomy History of cholecystectomy History of heart artery stent History of [place] fundoplication Hx of tonsillectomy Social History household members: spouse Smoking Status: Current every day smoker tobacco type: cigarettes alcohol intake: never substance use type: does not use ROS ROS ED Constitutional Constitutional ED: Denies chills, fever(s) or sweats Eyes Eyes: Denies change in vision ENT ENT ED: Denies dysphagia or sore throat Cardiovascular Cardiovascular: Denies chest pain, leg edema, palpitations or racing heartbeat Respiratory/Chest Respiratory/Chest: Denies cough, dyspnea or dyspnea on exertion Gastrointestinal Gastrointestinal: Denies abdominal pain, diarrhea, nausea or vomiting Genitourinary Genitourinary ED: Denies dysuria, hematuria or urinary frequency Musculoskeletal Musculoskeletal: Denies back pain, extremity pain or neck pain Integumentary Denies rash or wounds Neurologic Neurologic: Reports other Details: Confusion with memory issues ; Denies headache(s), paresthesias or weakness EXAM Physical Exam Const Vital Signs: 06/08/22 12:28 06/08/22 13:00 06/08/22 13:05 Temperature 97.2 F L Temperature Source Temporal Pulse Rate 71 60 Respiratory Rate 18 18 Blood Pressure 124/91 H 143/101 H Blood Pressure Mean 102 115 Pulse Ox 97 97 Oxygen Delivery Method Room Air Room Air Room Air 06/08/22 13:05 06/08/22 14:02 Temperature 97.8 F Temperature Source Temporal Pulse Rate 89 59 L Respiratory Rate 16 23 H Blood Pressure 143/101 H 129/80 H Blood Pressure Mean 115 96 Pulse Ox 99 97 Oxygen Delivery Method Room Air Room Air Positive well nourished and well developed General Appearance ED: well developed and NAD HEENT Reports moist mucous membranes normocephalic and atraumatic Eyes PERRL, EOMs intact bilaterally and conjunctivae normal General Eye ED: Yes normal appearance of both eyes Neck no lymphadenopathy and supple General: Negative for tenderness Chest Wall Chest: Negative for tenderness Resp normal respiratory effort and normal air movement Effort and Inspection: symmetric chest movement; Negative for respiratory distress Cardio regular rate, regular rhythm and no murmurs Peripheral Pulses: pulses 2+ throughout GI normal to inspection, nondistended, normoactive bowel sounds and non-tender Palpation: Negative for guarding or rebound tenderness present Back/Spine no CVA tenderness and no thoracic nor lumbar tenderness Extremity normal to inspection General Extremety ED: Negative for edema or tenderness General Extremity: Negative for edema Neuro oriented x3 and no sensory deficits noted Neuro Narrative: NIH of 0. However patient was slow to response when reading words and pictures. Sensorium / Orientation: awake and alert Skin no rashes or lesions noted and no wounds MDM MDM MDM Narrative Medical decision making narrative: Interventions / MDM: Differential diagnosis: CVA, infection, electrolyte abnormalities Diagnosis considered but do not suspect: N/A My EKG interpretation: Sinus rhythm rate of [address] or T wave changes. Imaging independently reviewed and interpreted by myself: 1 view chest x-ray no acute process. CT brain interpreted by myself and read by radiology negative for acute process. External documents reviewed: Discharge paperwork from [facility]. Test considered but not ordered:N/A ED course: Patient had NIH of 0 however with confusion reporting troubles with speech, potential stroke is in the differential.'s been going on for 6 days. She is not a tPA candidate. CT brain discussion with rate does not review showed no acute process. She has no weakness or any debilitating factors at this time. Discussed with radiologist about obtaining MRI in the ED for which she is cleared to rule out stroke. Especially has been going on for 6 days. Laboratory studies were read obtained hemoglobin 13.5 white count 5.2 lites normal potassium 3.2 so 1 creatinine of 0.96. Urine was negative for infection. Chest x-ray negative for infection. MRI with concerning changes of the corpus callosum. Stroke differential out 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 disease versus glioma or encephalitis, however she has 6 days of symptoms she is afebrile and not likely infectious. Her symptoms more likely of stroke concerns. Re-evaluation: Clinically stable, I spoke with hospitalist, will order CT angiogram for vascular studies of the head and neck. She will likely need a bubble study in the hospital. Patient updated. Admitted to PCU. Disposition discussed with patient/family/significant other: Hospitalist, Dr. Frias Case discussed with consulting clinician: N/A Lab Data Attestation: I reviewed the patient's lab results. Labs: Laboratory Results - last 24 hr 06/08/22 06/08/22 06/08/22 12:59 13:00 13:02 WBC 5.2 RBC 4.50 Hgb 13.5 Hct 40.4 MCV 89.8 MCH 30.0 MCHC 33.4 RDW Std Deviation 43.7 RDW Coeff of Benigno 13.4 Plt Count 172 MPV 9.0 Immature Gran % (Auto) 0.200 Neut % (Auto) 67.1 Lymph % (Auto) 23.5 Mccracken % (Auto) 6.7 Eos % (Auto) 2.1 Baso % (Auto) 0.4 Absolute Neuts (auto) 3.5 Absolute Lymphs (auto) 1.23 Nucleated RBC % 0 PT INR APTT Sodium Potassium Chloride Carbon Dioxide Anion Gap BUN Creatinine Estim Creat Clear Calc Est GFR (MDRD) Af Amer Est GFR (MDRD) Non-Af BUN/Creatinine Ratio Glucose Calcium Troponin I High Sens Urine Color Yellow Urine Clarity Sl. Cloudy Urine pH 7.0 Ur Specific [place] 1.010 Urine Protein Negative Urine Glucose (UA) Normal Urine Ketones Negative Urine Occult Blood 10 H Urine Nitrite Negative Urine Bilirubin Negative Urine Urobilinogen Normal Ur Leukocyte Esterase Negative Urine RBC 0-5 SEEN Urine WBC 0 SEEN Ur Squamous Epith Cells 0 SEEN Urine Bacteria 0 SEEN Urine Mucus 0 SEEN POC Glucose 100 06/08/22 06/08/22 13:02 13:02 WBC RBC Hgb Hct MCV MCH MCHC RDW Std Deviation RDW Coeff of Benigno Plt Count MPV Immature Gran % (Auto) Neut % (Auto) Lymph % (Auto) Mccracken % (Auto) Eos % (Auto) Baso % (Auto) Absolute Neuts (auto) Absolute Lymphs (auto) Nucleated RBC % PT 13.5 INR 1.1 APTT 27.6 Sodium 140 Potassium 3.2 L Chloride 109 H Carbon Dioxide 24.0 Anion Gap 7 BUN 8 Creatinine 0.96 Estim Creat Clear Calc 65.15 Est GFR (MDRD) Af Amer 78 Est GFR (MDRD) Non-Af 64 BUN/Creatinine Ratio 8.3 L Glucose 88 Calcium 8.8 Troponin I High Sens 6 Urine Color Urine Clarity Urine pH Ur Specific [place] Urine Protein Urine Glucose (UA) Urine Ketones Urine Occult Blood Urine Nitrite Urine Bilirubin Urine Urobilinogen Ur Leukocyte Esterase Urine RBC Urine WBC Ur Squamous Epith Cells Urine Bacteria Urine Mucus POC Glucose Radiography Diagnostic Testing: Clinical Impression(s) from Imaging Studies Brain MRI 06/08/22 00:00 IMPRESSION: Signal abnormality in the splenium of the corpus callosum. Differential considerations include demyelination, acute ischemia, high-grade glioma. Additional considerations include encephalitis or acute disseminated encephalomyelitis (ADEM), posterior reversible encephalopathy syndrome (PRES). Limited additional T2 signal hyperintensity are nonspecific and may be due to microvascular ischemia, demyelination, vasculitis. Electronically Signed: Jacqueline Banegas MD at 17:03 EST Reading Location ID and State: [id number] / Tel , Service support , Brain CT 06/08/22 13:03 IMPRESSION: Normal CT brain without intravenous contrast. Aspect score 10 Electronically Signed: Garrett Green MD at 13:54 EST , ADDENDUM: 06/08/22 1401 IMPRESSION: Normal CT brain without intravenous contrast. Aspect score 10 N.B. : The above Results were Read Back by Garrett Green MD to Riley Frances MD, and understanding confirmed on 06/08/2022 13:54:31 (ET). Electronically Signed: Garrett Green MD at 13:54 EST , Chest X-Ray 06/08/22 13:30 IMPRESSION: No acute cardiopulmonary abnormality. No interval change. Electronically Signed: Garrett Green MD at 13:42 EST , Discharge Plan Triage Chief Complaint: Confusion ED Provider: Juan Daniel River Dx/Rx/DC Orders Clinical Impression: Acute cerebrovascular accident (CVA), History of CAD (coronary artery disease), Confusion Prescriptions: No Action trazodone 50 MG tablet 400 mg PO QHS clopidogrel 75 MG tablet 75 mg PO DAILY albuterol sulfate 8.5 GM HFA aerosol inhaler 8.5 gm INHALATION DAILY Label Comments: INHALE 2 PUFFS BY MOUTH EVERY 6 HOURS NEEDED vilazodone [Viibryd] 40 mg Tablet 40 mg PO DAILY bupropion HCl [Wellbutrin SR] 150 mg Tablet Sustained-Release 12 Hr 150 mg PO DAILY isosorbide mononitrate 30 mg Tablet Extended Release 24 Hr 30 mg PO DAILY Hold Instructions: Resume on 06/10/22. With your project control manager regarding when to resume clonazepam 0.5 mg Tablet 0.5 mg PO BID pantoprazole 20 mg Tablet,Delayed Release (Dr/Ec) 20 mg PO DAILY carbamazepine [Tegretol] 200 mg Tablet 200 mg PO BID losartan 25 mg Tablet 25 mg PO DAILY Hold Instructions: Resume on 06/10/22. With your project control manager regarding when to resume topiramate [Topamax] 100 mg Tablet 100 mg PO BID Vraylar 1.5 mg Capsule 1.5 mg PO DAILY aspirin 81 mg Tablet,Delayed Release (Dr/Ec) 81 mg PO DAILY Praluent Pen 75 mg/mL Pen Injector 75 mg SUBCUT Q14D melatonin 10 mg Tablet 10 mg PO QHS Qty: 30 0RF Primary Care Provider: Solis Cool Referrals: Solis Cool DO [Primary Care Provider] - Disposition Disposition: Acute Care [facility] What to do if you have Problems For any increased pain, shortness of breath, bleeding, nausea or vomiting, chestpain, or any unexpected problems, contact your Primary Care Provider. Call [facility] ([phone]) or report to the closest Emergency Room. Call 911 if necessary. 06/08/22 1751 <Electronically signed by Juan Daniel Dunham> Cosigner Signature (if applicable): CC: Dr. Solis Cool DO ~ Signed [facility] Work Phone: [phone] 704-540501-31-[address] Shine [facility] June 02, 2022 1:31pm Note Date/Time June 02, 2022 8 :49am [facility] Medical Records Department [address] [place] [address] Consultation - Cardiology 06/02/22 0843 MR#: [id number] Acct: [id number] Name: JOSIE LANDIS Rep #:[id number] : 1965 [id number] From: William Shine MD PCP: Dr. Solis Cool DO Status:AD [facility] Location: [place] [address] Assessment & Plan Assessment/Plan (1) Chest pain: PLAN: The patient presents with chest discomfort at this time. It is not clear whether this is coronary in origin or not. Her cardiac enzymes are thus far negative. I would recommend that we obtain an exercise myocardial perfusion stress test and depending on the findings further recommendations will be made. (2) History of CAD (coronary artery disease): PLAN: She has a history of coronary artery disease status post multivessel PCI. I would recommend continuing the same therapy. Risk factor modification will beimplemented and also depending on the results of the stress test further recommendations will be made. HPI Consult Data Date of Consult: 06/02/22 HPI Narrative HPI Narrative: JOSIE LANDIS, is a 56 F who presents to the emergency room complaining of substernal chest discomfort. She is a lady with a history of coronary artery disease status post recent PCI at [facility] involving the left circumflex artery. She also has a history of hypertension, hyperlipidemia, anxiety and depression with bipolar disorder. She had previously undergone coronary artery evaluation and had prior stenting of her mid right coronary artery as well as her proximal left anterior descending artery. Most recently she had a circumflex artery stent placed. She had been taking her medications as noted including aspirin, Plavix, Praluent and isosorbide. She said the chestdiscomfort was rather significant and she took a sublingual nitroglycerin presented to the emergency room here. Her EKG did not demonstrate any acute changes and her troponin level was noted to be 5. She is due to have a repeat. At this particular time she is pain-free. She denies any other cardiac symptomatology. Cardiology was called for further evaluation and management. [facility] Medical History Anxiety and depression Bipolar 1 disorder CAD (coronary artery disease) COPD (chronic obstructive pulmonary disease) GERD (gastroesophageal reflux disease) HLD (hyperlipidemia) HTN (hypertension) Tobacco abuse Home Medications albuterol sulfate 90 mcg/actuation aerosol inhaler 8.5 gm inhalation DAILY 07/05/20 [History Last Taken Unknown] clopidogrel 75 mg tablet 75 mg PO DAILY 07/05/20 [History Last Taken Unknown] trazodone 50 mg tablet 400 mg PO QHS 07/05/20 [History Last Taken Unknown] melatonin 10 mg tablet 20 mg PO QHS 10/08/21 [History Last Taken Unknown] vilazodone 40 mg tablet (Viibryd) 40 mg PO DAILY 10/08/21 [History Last Taken Unknown] alirocumab 75 mg/mL subcutaneous pen injector (Praluent Pen) 75 mg subcut Q14D 06/02/22 [History Last Taken Unknown] aspirin 81 mg tablet,delayed release 81 mg PO DAILY 06/02/22 [History Last Taken Unknown] bupropion HCl 150 mg tablet,12 hr sustained-release (Wellbutrin SR) 150 mg PO DAILY 06/02/22 [History Last Taken Unknown] carbamazepine 200 mg tablet (Tegretol) 200 mg PO BID 06/02/22 [History Last Taken Unknown] cariprazine 1.5 mg capsule (Vraylar) 1.5 mg PO DAILY 06/02/22 [History Last Taken Unknown] clonazepam 0.5 mg tablet 0.5 mg PO BID 06/02/22 [History Last Taken Unknown] isosorbide mononitrate 30 mg tablet,extended release 24 hr 30 mg PO DAILY 06/02/22 [History Last Taken Unknown] losartan 25 mg tablet 25 mg PO DAILY 06/02/22 [History Last Taken Unknown] pantoprazole 20 mg tablet,delayed release 20 mg PO DAILY 06/02/22 [History Last Taken Unknown] topiramate 100 mg tablet (Topamax) 100 mg PO BID 06/02/22 [History Last Taken Unknown] Allergy/AdvReac Type Severity Reaction Status Date / Time adhesive tape Allergy Hives Verified 06/02/22 05:13 aspirin [ASA] Allergy Other Verified 06/02/22 05:13 budesonide [From Symbicort] Allergy Anaphylaxis Verified 06/02/22 05:13 formoterol [From Symbicort] Allergy Anaphylaxis Verified 06/02/22 05:13 latex Allergy Hives Verified 06/02/22 05:13 Penicillins [PCN] Allergy Hives Verified 06/02/22 05:13 Family History Mother CAD (coronary artery disease) Heart disease Hypertension Myocardial infarction Father CAD (coronary artery disease) CVA (cerebral vascular accident) Heart disease Hypertension Surgical History H/O: hysterectomy History of cholecystectomy History of heart artery stent History of [place] fundoplication Hx of tonsillectomy Social History household members: spouse Smoking Status: Current every day smoker tobacco type: cigarettes alcohol intake: never substance use type: does not use ROS Constitutional Constitutional: Denies fever(s) or weight loss Eyes Eyes: Reports systems reviewed and no addt'l complaints, except as documented ENT HEENT: Reports systems reviewed and no addt'l complaints, except as documented Cardiovascular Cardiovascular: Reports chest pain at rest and dyspnea at rest; Denies chest pain with activity, dyspnea on exertion, edema, palpitations or paroxysmal nocturnal dyspnea Respiratory/Chest Respiratory/Chest: Denies dyspnea on exertion, productive cough, shortness of breath at rest or shortness of breath with exertion Gastrointestinal Gastrointestinal: Denies change in bowel habits, nausea, vomiting or weight changes Genitourinary Genitourinary: Denies difficulty urinating Musculoskeletal Musculoskeletal: Denies joint stiffness or muscle weakness Integumentary Integumentary: Denies lesions Neurologic Neurologic: Denies dizziness or syncope Psychiatric Psychiatric: Denies anxiety Endocrine Endocrinology: Denies excessive sweating or fatigue Hematologic/Lymphatic Hematologic/Lymphatic: Denies anemia Allergic/Immunologic Allergic/Immunologic: Denies seasonal rhinorrhea Physical Exam Const alert, oriented x3 and no apparent distress General Appearance: cooperative HEENT hearing grossly normal bilaterally Head and Scalp: atraumatic Eyes EOMs intact bilaterally Neck General: normal visual inspection Chest inspection of chest normal and palpation of chest normal Resp normal respiratory effort Auscultation: clear to auscultation bilaterally Cardio regular rate, regular rhythm, S1 normal heart sound and S2 normal heart sound Jugular Venous Distention: JVD GI normal to inspection, nondistended, normoactive bowel sounds Extremity normal capillary refill and no pedal edema Peripheral Pulses: Yes pulses 2+ throughout and femoral pulses present Skin no rashes or lesions noted Neuro oriented x3 and CN's II-XII intact bilaterally Psych Appearance: grossly normal and appropriate Risk Stratification Risk Stratification Applicable: No Objective Data Vital Signs: Vital Signs Temp Pulse Resp BP Pulse Ox O2 Del Method 97.9 F 58 L 16 103/79 95 Room Air 06/02/22 07:36 06/02/22 07:36 06/02/22 07:36 06/02/22 07:36 06/02/22 07:36 06/02/22 07:36 Oxygen Delivery Method Room Air Weight: 172 lb Body Mass Index (BMI) 26.9 Intake & Output: Intake and Output for Last 24 Hours 05/31/22 06/01/22 06/02/22 23:59 23:59 23:59 Intake Total 500 / 500 Balance 500 / 500 Lab / Micro Data Result Diagrams: 06/02/22 05:30 06/02/22 05:30 Labs: Laboratory Results - last 24 hr 06/02/22 05:30: WBC 4.5, RBC 4.42, Hgb 13.2, Hct 40.0, MCV 90.5, MCH 29.9, MCHC 33.0, RDW Std Deviation 44.7 H, RDW Coeff of Benigno 13.5, Plt Count 168, MPV 8.9, Immature Gran % (Auto) 0.200, Neut % (Auto) 54.4, Lymph % (Auto) 35.0, Mccracken % (Auto) 6.8, Eos % (Auto) 2.9, Baso % (Auto) 0.7, Absolute Neuts (auto) 2.5, Absolute Lymphs (auto) 1.59, Nucleated RBC % 0 06/02/22 05:30: Sodium 140, Potassium 3.5, Chloride 112 H, Carbon Dioxide 21.0, Anion Gap 7, BUN 12, Creatinine 0.89, Estim Creat Clear Calc 70.27, Est GFR (MDRD) Af Amer 85, Est GFR (MDRD) Non-Af 70, BUN/Creatinine Ratio 13.5, Glucose 131 H, Calcium 8.4 L, Troponin I High Sens 5 06/02/22 05:30: Magnesium 2.0 06/02/22 05:30: Hemoglobin A1c 5.1 06/02/22 08:06: Troponin I High Sens 5 Cardiology Labs/Tests 06/02/22 05:30: WBC 4.5, RBC 4.42, Hgb 13.2, Hct 40.0, MCV 90.5, MCH 29.9, MCHC 33.0, Plt Count 168, MPV 8.9, Immature Gran % (Auto) 0.200, Neut % (Auto) 54.4, Lymph % (Auto) 35.0, Mccracken % (Auto) 6.8, Eos % (Auto) 2.9, Baso % (Auto) 0.7, Absolute Neuts (auto) 2.5, Nucleated RBC % 0 06/02/22 05:30: Sodium 140, Potassium 3.5, Chloride 112 H, Carbon Dioxide 21.0, Anion Gap 7, BUN 12, Creatinine 0.89, Est GFR (MDRD) Af Amer 85, Est GFR (MDRD) Non-Af 70, BUN/Creatinine Ratio 13.5, Glucose 131 H, Calcium 8.4 L 06/02/22 05:30: Magnesium 2.0 06/02/22 05:30: Hemoglobin A1c 5.1 Rhythm: EKG: ECHO: Stress Test: Cardiac Cath: PCI: CT Surgery: Holter monitor: EPS: PPM: CXR: Chest CT Scan: Radiography Diagnostic Testing: Radiology Impression Chest X-Ray 06/02/22 05:20 IMPRESSION: Normal x-ray examination of the chest. Electronically Signed: Avila Rae MD at 6:16 EST Reading Location ID and State: [id number] / , Service support , 06/02/22 1331 <Electronically signed by William Shine MD> Cosigner Signature (if applicable): CC: Dr. Carmen Frias MD; Dr. William Shine MD; Dr. Solis Cool DO~ Signed [facility] Work Phone: [phone]) 679-154401-31-2023 History and physical note Author Dr. Frias [facility] June 02, 2022 6:59am Note Date/Time June 02, 2022 6 :39am [facility] Medical Records Department [address] [place] [id number] H&P Exam - Hospitalist 06/02/22 0658 MR#: [id number] Acct: [id number] Name: JOSIE LANDIS Rep #:[id number] : 1965 [id number] From: Carmen Frias MD PCP: Dr. Solis Cool DO Status:AD M [facility] Location: [place] [address] HPI - General General Date of Admission: 06/02/22 Date of Service: 06/02/22 Chief Complaint: Chest pain HPI Narrative The patient is a 56 y/o F w/ PMHx: Tobacco use, COPD, CAD s/p PCI, HTN, HLD, Anxiety and Depression/Bipolar disorder who presents to the [facility] ED on 06/02/22 with history of this a.m. prior to ED presentation at ~ 4:45 am awakening her from sleep onset anterior chest heaviness, rated 10/10 in severity, describing as someone actually sitting on her chest with associated nausea without emesis and diaphoresis with mild dyspnea which was similar to what she had prior when she was evaluated for PCI with history of recent PCI of her circumflex 2 weeks prior to current presentation at [facility] prompting ED evaluation. She did self administer NG prior to arrival and her chest pain has currently resolved. She notes her mother had PCI and 2-3 days following had a massive WV which is why she came in and because the discomfort was severe. Patient has had prior stenting of the mid RCA with noted 60% in-stent restenosisas well as prior stenting of proximal LAD with 40% in-stent restenosis and a newlesion most recently in the mid circumflex that was 85% stenosed that was reduced to less than 5% following stenting. She states she has been taking her aspirin, Plavix as well as statin and metoprolol. She remains chest pain free currently. Work-up in the ED included T96.9, heart rate 60, BP 97/61, respiratory rate 16, 96% on room air, CBC with WC 4.5, hemoglobin 13.2, [id number] without marked shift, BMP with chloride 112, glucose 131, calcium 8.4 not otherwise not marked appearing, troponin 5, chest x-ray with no acute cardiopulmonary findings, EKG with sinus rhythm with no acute evidence of ischemia similar to last EKG performed. [facility] Medical History Anxiety and depression CAD (coronary artery disease) COPD (chronic obstructive pulmonary disease) HLD (hyperlipidemia) HTN (hypertension) Tobacco abuse Home Medications albuterol sulfate 90 mcg/actuation aerosol inhaler 8.5 gm inhalation DAILY 07/05/20 [History Last Taken Unknown] cariprazine 1.5 mg capsule 1.5 mg PO DAILY 07/05/20 [History Last Taken Unknown] clopidogrel 75 mg tablet 75 mg PO DAILY 07/05/20 [History Last Taken Unknown] trazodone 50 mg tablet 400 mg PO QHS 07/05/20 [History Last Taken Unknown] melatonin 10 mg tablet 20 mg PO QHS 10/08/21 [History Last Taken Unknown] vilazodone 40 mg tablet (Viibryd) 40 mg PO DAILY 10/08/21 [History Last Taken Unknown] aspirin 81 mg tablet,delayed release 81 mg PO DAILY 06/02/22 [History Last Taken Unknown] bupropion HCl 150 mg tablet,12 hr sustained-release (Wellbutrin SR) 150 mg PO DAILY 06/02/22 [History Last Taken Unknown] carbamazepine 200 mg tablet (Tegretol) 200 mg PO BID 06/02/22 [History Last Taken Unknown] cariprazine 1.5 mg capsule (Vraylar) 1.5 mg PO DAILY 06/02/22 [History Last Taken Unknown] clonazepam 0.5 mg tablet 0.5 mg PO BID 06/02/22 [History Last Taken Unknown] isosorbide mononitrate 30 mg tablet,extended release 24 hr 30 mg PO DAILY 06/02/22 [History Last Taken Unknown] losartan 25 mg tablet 25 mg PO DAILY 06/02/22 [History Last Taken Unknown] pantoprazole 20 mg tablet,delayed release 20 mg PO DAILY 06/02/22 [History Last Taken Unknown] topiramate 100 mg tablet (Topamax) 100 mg PO BID 06/02/22 [History Last Taken Unknown] Allergy/AdvReac Type Severity Reaction Status Date / Time adhesive tape Allergy Hives Verified 06/02/22 05:13 aspirin [ASA] Allergy Other Verified 06/02/22 05:13 budesonide [From Symbicort] Allergy Anaphylaxis Verified 06/02/22 05:13 formoterol [From Symbicort] Allergy Anaphylaxis Verified 06/02/22 05:13 latex Allergy Hives Verified 06/02/22 05:13 Penicillins [PCN] Allergy Hives Verified 06/02/22 05:13 Family History Mother CAD (coronary artery disease) Heart disease Hypertension Myocardial infarction Father CAD (coronary artery disease) CVA (cerebral vascular accident) Heart disease Hypertension Surgical History H/O: hysterectomy History of cholecystectomy History of heart artery stent Hx of tonsillectomy Social History (Updated 06/02/22 @ 06:[address] Carmen Frias MD) household members: spouse Smoking Status: Current every day smoker tobacco type: cigarettes Smoking packs per day: 0.5 Smoking cigarettes per day: 10.0 alcohol intake: never substance use type: does not use ROS ROS Narrative Admission Review of Systems: CONSTITUTIONAL: No weight loss, fever, chills, + weakness or fatigue. HEENT: Eyes: No visual loss, blurred vision, double vision or yellow sclerae. Ears, Nose, Throat: No hearing loss, sneezing, congestion, runny nose or sore throat. SKIN: No rash or itching, lesions, wounds. CARDIOVASCULAR: + chest pain, chest pressure or chest discomfort, No palpitations, edema, orthopnea, syncopal events. RESPIRATORY: + shortness of breath, No cough or sputum, wheezing, hemoptysis. GASTROINTESTINAL: + anorexia, nausea, No vomiting or diarrhea, abdominal pain, melena, BRBPR. GENITOURINARY: No dysuria, frequency, urgency or retention. NEUROLOGICAL: No headache, dizziness, syncope, paralysis, ataxia, numbness or tingling in the extremities, focal weakness, change in bowel or bladder control, seizure. MUSCULOSKELETAL: + muscle, back pain, joint pain or stiffness. HEMATOLOGIC: No anemia, bleeding or bruising. LYMPHATICS: No enlarged nodes. No history of splenectomy. PSYCHIATRIC: + history of depression or anxiety. ENDOCRINOLOGIC: + reports of sweating. No cold or heat intolerance. No polyuria or polydipsia. ALLERGIES: + history of asthma, hives, rhinitis. Vital Signs Vital Signs Vital Signs: 06/02/22 05:09 06/02/22 06:21 06/02/22 06:26 Temperature 96.9 F L 97.6 F L Temperature Source Temporal Temporal Pulse Rate 60 56 L 58 L Respiratory Rate 16 18 Blood Pressure 97/61 92/56 L Blood Pressure Mean 73 68 Pulse Ox 96 94 Oxygen Delivery Method Room Air Room Air Weight Weight: 173 lb 8.061 oz Body Mass Index (BMI) 27.1 Physical Exam Narrative Physical Examination: General: Awake, alert, oriented x 3 and cooperative, seated upright in the ED bed in no apparent distress, notes chest pain free currently. Skin: Normal color, normal turgor, no icterus, no cyanosis. HEENT: AT/NC, EOMI, PERRLA, MMM, no carotid bruits or JVD noted. Lungs: CTA bilaterally, moderate effort, mild decrease BL bases, no rales, ronchi or wheezing. Heart: Currently mildly bradycardic with regular rhythm; no gallop, rub audible. Abdomen: Soft, overweight, NTTP, ND, distant normal BS, no HSM. Extremities: No cyanosis, clubbing, or edema. Neurological: Patient awake, alert, oriented as noted, cognitive function intact; pupils equally reactive to light and accommodation, cranial nerves II-XII grossly normal, moving all 4 extremities, no focal deficits, strength improved, mildly global decreased secondary to acute recent events. Psychiatric: Affect appears fatigued otherwise normal, no acute evidence of depressive or anxiety feelings but does have notable history. Results Lab / Micro Data Result Diagrams: 06/02/22 05:30 06/02/22 05:30 Labs: Laboratory Results - last 24 hr 06/02/22 05:30: WBC 4.5, RBC 4.42, Hgb 13.2, Hct 40.0, MCV 90.5, MCH 29.9, MCHC 33.0, RDW Std Deviation 44.7 H, RDW Coeff of Benigno 13.5, Plt Count 168, MPV 8.9, Immature Gran % (Auto) 0.200, Neut % (Auto) 54.4, Lymph % (Auto) 35.0, Mccracken % (Auto) 6.8, Eos % (Auto) 2.9, Baso % (Auto) 0.7, Absolute Neuts (auto) 2.5, Absolute Lymphs (auto) 1.59, Nucleated RBC % 0 06/02/22 05:30: Sodium 140, Potassium 3.5, Chloride 112 H, Carbon Dioxide 21.0, Anion Gap 7, BUN 12, Creatinine 0.89, Estim Creat Clear Calc 70.27, Est GFR (MDRD) Af Amer 85, Est GFR (MDRD) Non-Af 70, BUN/Creatinine Ratio 13.5, Glucose 131 H, Calcium 8.4 L, Troponin I High Sens 5 Radiology Impression Chest X-Ray 06/02/22 05:20 IMPRESSION: Normal x-ray examination of the chest. Electronically Signed: Avila Rae MD at 6:16 EST Reading Location ID and State: [id number] / , Service support , Assessment & Plan Assessment/Plan (1) Chest pain: PLAN: Plan The patient is a 56 y/o F w/ PMHx: Tobacco use, COPD, CAD s/p PCI, HTN, HLD, Anxiety and Depression/Bipolar disorder who presents to the [facility] ED on 06/02/22 with history of this a.m. prior to ED presentation at ~ 4:45 am awakening her from sleep onset anterior chest heaviness, rated 10/10 in severity, describing as someone actually sitting on her chest with associated nausea without emesis and diaphoresis with mild dyspnea which was similar to what she had prior when she was evaluated for PCI with history of recent PCI of her circumflex 2 weeks prior to current presentation at [facility] prompting ED evaluation. #1. Chest Pain s/p recent PCI ~2 weeks prior: EKG in ED with sinus rhythm with no acute evidence of ischemia, CXR w/ no acute cardiopulmonary finding, initial troponin 5. Will admit to PCU, place on a monitored bed to assure no acute myocardial infarction with serial cardiac enzymes and EKGs. If repeat serial cardiac enzymes and EKGs remain unremarkable will pursue a.m. cardiac stress testing per cardiology recommendation. FLP in AM. Magnesium level requested. Cardiology consulted and discussed case with ED physician therefore will continue as they noted if any concerns arise they may need to recatheterized. #2. Hyperglycemia, mild: Admission glucose 131, possibly stress response, hemoglobin A1c requested to be cautious. #3. CAD: Status post prior PCI, most recently approximately 2 weeks prior, will continue aspirin, Plavix, statin, temporally holding patient beta-gregg therapy and losartan given hypotension likely from NG self administration, add back once appropriate. #4. Chronic COPD: Not on chronic inhalers, may add if necessary otherwise in the interim PRN albuterol, HOB, IS parameters. #5. Hypertension: BP currently low, likely secondary to recent self NG administration, will temporarily hold patient home losartan and metoprolol therapy, add back once appropriate. #6. Hyperlipidemia: Continue statin, FLP requested. #7. Tobacco Abuse: Encouraged cessation, inpatient consultation per RT, NR if desired. #8. Anxiety and depression/bipolar disorder: We will continue patient home significant psychiatric regimen. #9. DVT prophylaxis: SCDs, Lovenox. Admission Evaluation Time spent evaluating chart, patient history, patient evaluation, care planning and discussion with specialists: 55 minutes. Charges/Coding Visit Charges Inpatient E&M: 69976 Init Hosp L2 06/02/22 0659 <Electronically signed by Carmen Frias MD> Cosigner Signature (if applicable): CC: Dr. Carmen Frias MD; Dr. Solis Cool, DO~ Signed [facility] Work Phone: [phone]) 221-563701-31-[address] Palmer [facility] June 02, 2022 6:48am Note Date/Time June 02, 2022 5 :30am [facility] Medical Records Department [address] [place] [address] Emergency Department Summary 06/02/22 MR#: [id number] Acct: [id number] Name: JOSIE LANDIS Rep #:[id number] : 1965 56 From: Keyur Palmer MD PCP: Dr. Solis Cool, DO Status:RE G ER Location: ED HPI History of Present Illness Chief Complaint: Chest Pain Informant: patient and spouse/S.O. Narrative Narrative: Patient had an episode of chest heaviness this morning. She describes it as somebody sitting on her chest. It is better now. It sounds like she did get a little nauseated but did not vomit. She did get a very hot feeling possibly a little diaphoretic. She was a little bit short of breath with it. This remindsher of symptoms she had before with heart disease. She has had stents in the past. She just had stenting of her circumflex 2 weeks ago at [facility]. I reviewed papers from [facility] that the patient brought with her. These give some detail to her heart catheterization. Patient had prior stenting of mid right RCA that had some 60% in-stent restenosis. She had prior stenting of the proximal LAD that had 40% in-stent restenosis. She had a new lesion in the mid circumflex that was an 85% blockage that was reduced to less than 5% with stenting. Patient is on and is taking her Plavix and aspirin as well as her statin and metoprolol. She does have family history of heart disease. She has not been sick and is generally been doing well since her heart cath. [facility] Medical History (Updated 06/02/22 @ 06:[address] Keyur Palmer MD) Anxiety and depression CAD (coronary artery disease) COPD (chronic obstructive pulmonary disease) HLD (hyperlipidemia) HTN (hypertension) Tobacco abuse Home Medications albuterol sulfate 90 mcg/actuation aerosol inhaler 8.5 gm inhalation DAILY 07/05/20 [History Last Taken Unknown] cariprazine 1.5 mg capsule 1.5 mg PO DAILY 07/05/20 [History Last Taken Unknown] clopidogrel 75 mg tablet 75 mg PO DAILY 07/05/20 [History Last Taken Unknown] trazodone 50 mg tablet 400 mg PO QHS 07/05/20 [History Last Taken Unknown] melatonin 10 mg tablet 20 mg PO QHS 10/08/21 [History Last Taken Unknown] vilazodone 40 mg tablet (Viibryd) 40 mg PO DAILY 10/08/21 [History Last Taken Unknown] aspirin 81 mg tablet,delayed release 81 mg PO DAILY 06/02/22 [History Last Taken Unknown] bupropion HCl 150 mg tablet,12 hr sustained-release (Wellbutrin SR) 150 mg PO DAILY 06/02/22 [History Last Taken Unknown] carbamazepine 200 mg tablet (Tegretol) 200 mg PO BID 06/02/22 [History Last Taken Unknown] cariprazine 1.5 mg capsule (Vraylar) 1.5 mg PO DAILY 06/02/22 [History Last Taken Unknown] clonazepam 0.5 mg tablet 0.5 mg PO BID 06/02/22 [History Last Taken Unknown] isosorbide mononitrate 30 mg tablet,extended release 24 hr 30 mg PO DAILY 06/02/22 [History Last Taken Unknown] losartan 25 mg tablet 25 mg PO DAILY 06/02/22 [History Last Taken Unknown] pantoprazole 20 mg tablet,delayed release 20 mg PO DAILY 06/02/22 [History Last Taken Unknown] topiramate 100 mg tablet (Topamax) 100 mg PO BID 06/02/22 [History Last Taken Unknown] Allergy/AdvReac Type Severity Reaction Status Date / Time adhesive tape Allergy Hives Verified 06/02/22 05:13 aspirin [ASA] Allergy Other Verified 06/02/22 05:13 budesonide [From Symbicort] Allergy Anaphylaxis Verified 06/02/22 05:13 formoterol [From Symbicort] Allergy Anaphylaxis Verified 06/02/22 05:13 latex Allergy Hives Verified 06/02/22 05:13 Penicillins [PCN] Allergy Hives Verified 06/02/22 05:13 Surgical History H/O: hysterectomy History of cholecystectomy History of heart artery stent Hx of tonsillectomy Social History household members: spouse Smoking Status: Current every day smoker tobacco type: cigarettes substance use type: does not use ROS ROS ED Constitutional Constitutional ED: Denies chills or fever(s) Eyes Eyes: Denies change in vision ENT ENT ED: Denies rhinorrhea or sore throat Cardiovascular Cardiovascular: Reports as per HPI Respiratory/Chest Respiratory/Chest: Reports dyspnea; Denies cough Gastrointestinal Gastrointestinal: Reports nausea; Denies vomiting Musculoskeletal Musculoskeletal: Denies back pain or neck pain Integumentary Denies rash Neurologic Neurologic: Denies headache(s) or paresthesias Psychiatric Psychiatric: Reports anxiety Endocrine Endocrinology: Denies polydipsia or polyuria Hematologic/Lymphatic Hematologic/Lymphatic: Reports easy bleeding and easy bruising Allergic/Immunologic Allergic/Immunologic ED: Denies urticaria EXAM Physical Exam Narrative Exam Narrative: Patient is awake alert no acute distress sitting in bed at this time. She carries on normal conversation. HEENT shows no rash or tenderness. Mucous membranes are moist. No diaphoresis. Eyes Free range of motion Neck shows no JVD. No tenderness. No subcu air. Chest is clear. She can take good deep breaths without any pain or discomfort. Heart is regular with a rate of about 60. No murmur gallop or rub is noted. No chest wall tenderness. Peripheral pulses are good. Abdomen is soft nontender and normal bowel sounds. No CVA or suprapubic tenderness Extremities show no edema cords tenderness or asymmetry. Patient is alert oriented and appropriate Skin shows no diaphoresis or rash. Const Vital Signs: 06/02/22 05:09 Temperature 96.9 F L Temperature Source Temporal Pulse Rate 60 Respiratory Rate 16 Blood Pressure 97/61 Blood Pressure Mean 73 Pulse Ox 96 Oxygen Delivery Method Room Air MDM MDM MDM Narrative Medical decision making narrative: My independent interpretation of the patient's single AP chest x-ray shows no acute process. No pneumothorax. No infiltrate. No abnormal mediastinum. Final reading by radiology shows normal x-ray examination of the chest. CBC electrolytes are normal. Glucose is minimally up at 131. Troponin is quite normal at 5. This patient symptoms are resolved. The EKG showed no acute process but she was not having symptoms when this was done. Her work-up so far is negative. However, she has significant heart disease just had stenting done and had the same symptoms as prior to the stents. I called and directly discussed these issues with our project control manager, Dr. Shine. He recommend that we do bring her in the hospital. She will have enzymes cycled and likely stress test to look further. I then discussed the case with hospitalist who is seeing her in the emergency department. Lab Data Attestation: I reviewed the patient's lab results. Labs: Laboratory Results - last 24 hr 06/02/22 06/02/22 05:30 05:30 WBC 4.5 RBC 4.42 Hgb 13.2 Hct 40.0 MCV 90.5 MCH 29.9 MCHC 33.0 RDW Std Deviation 44.7 H RDW Coeff of Benigno 13.5 Plt Count 168 MPV 8.9 Immature Gran % (Auto) 0.200 Neut % (Auto) 54.4 Lymph % (Auto) 35.0 Mccracken % (Auto) 6.8 Eos % (Auto) 2.9 Baso % (Auto) 0.7 Absolute Neuts (auto) 2.5 Absolute Lymphs (auto) 1.59 Nucleated RBC % 0 Sodium 140 Potassium 3.5 Chloride 112 H Carbon Dioxide 21.0 Anion Gap 7 BUN 12 Creatinine 0.89 Estim Creat Clear Calc 70.27 Est GFR (MDRD) Af Amer 85 Est GFR (MDRD) Non-Af 70 BUN/Creatinine Ratio 13.5 Glucose 131 H Calcium 8.4 L Troponin I High Sens 5 EKG Initial EKG: Comments: My independent interpretation of EKG done for chest pain shows a sinus rhythm with overall rate of 60. No ventricular ectopy. No acute ST elevation or depression. PA interval, QRS duration and QTc are normal. This was compared with prior EKG from 08 October 2021 and shows no marked interval change. Discharge Plan Triage Chief Complaint: Chest Pain ED Provider: Keyur Palmer Dx/Rx/DC Orders Clinical Impression: Chest pain, History of CAD (coronary artery disease), Bradycardia, sinus Prescriptions: No Action trazodone 50 MG tablet 400 mg PO QHS clopidogrel 75 MG tablet 75 mg PO DAILY albuterol sulfate 8.5 GM HFA aerosol inhaler 8.5 gm INHALATION DAILY Label Comments: INHALE 2 PUFFS BY MOUTH EVERY 6 HOURS NEEDED cariprazine 1.5 MG capsule 1.5 mg PO DAILY vilazodone [Viibryd] 40 mg Tablet 40 mg PO DAILY melatonin 10 mg Tablet 20 mg PO QHS bupropion HCl [Wellbutrin SR] 150 mg Tablet Sustained-Release 12 Hr 150 mg PO DAILY isosorbide mononitrate 30 mg Tablet Extended Release 24 Hr 30 mg PO DAILY clonazepam 0.5 mg Tablet 0.5 mg PO BID pantoprazole 20 mg Tablet,Delayed Release (Dr/Ec) 20 mg PO DAILY carbamazepine [Tegretol] 200 mg Tablet 200 mg PO BID losartan 25 mg Tablet 25 mg PO DAILY topiramate [Topamax] 100 mg Tablet 100 mg PO BID Vraylar 1.5 mg Capsule 1.5 mg PO DAILY aspirin [Aspir-81] 81 mg Tablet,Delayed Release (Dr/Ec) 81 mg PO DAILY Primary Care Provider: Solis Cool Referrals: Solis Cool DO [Primary Care Provider] - Disposition Disposition: Acute Care [facility] What to do if you have Problems For any increased pain, shortness of breath, bleeding, nausea or vomiting, chestpain, or any unexpected problems, contact your Primary Care Provider. Call [facility] ([phone]) or report to the closest Emergency Room. Call 911 if necessary. 06/02/22 0648 <Electronically signed by Keyur Palmer MD> Cosigner Signature (if applicable): CC: Dr. Solis Cool DO ~ Signed [facility] Work Phone: [phone] NotePROCEDURE: CHEST AP PORTABLE, 05/21/2022 9:09 AM EST CLINICAL INDICATIONS: Chest pain COMPARISON: CT chest 05/29/2020 TECHNIQUE: Upright AP portable chest 0913 hours FINDINGS: The heart is upper normal in size. Mediastinum is unremarkable. Lung volumes upper normal. Acute consolidation, pleural effusion, or pneumothorax is not demonstrated. No acute osseous abnormality is seen. Regional soft tissues are unremarkable. IMPRESSION: 1.No acute pulmonary consolidation, pleural effusion or pneumothorax 2. Borderline increased lung volumes. Reactive airways or early chronic obstructive pulmonary disease consideredParkwood HospitalDischarge summary Author Dr. Palmer [facility] June 02, 2022 6:48am Note Date/Time June 02, 2022 5 :30am [facility] Medical Records Department [address] [place] [id number] Emergency Department Summary 06/02/22 MR#: [id number] Acct: [id number] Name: JOSIE LANDIS Rep #:[id number] : 1965 56 From: Keyur Palmer MD PCP: Dr. Solis Cool, DO Status:RE G ER Location: ED HPI History of Present Illness Chief Complaint: Chest Pain Informant: patient and spouse/S.O. Narrative Narrative: Patient had an episode of chest heaviness this morning. She describes it as somebody sitting on her chest. It is better now. It sounds like she did get a little nauseated but did not vomit. She did get a very hot feeling possibly a little diaphoretic. She was a little bit short of breath with it. This remindsher of symptoms she had before with heart disease. She has had stents in the past. She just had stenting of her circumflex 2 weeks ago at [facility]. I reviewed papers from [facility] that the patient brought with her. These give some detail to her heart catheterization. Patient had prior stenting of mid right RCA that had some 60% in-stent restenosis. She had prior stenting of the proximal LAD that had 40% in-stent restenosis. She had a new lesion in the mid circumflex that was an 85% blockage that was reduced to less than 5% with stenting. Patient is on and is taking her Plavix and aspirin as well as her statin and metoprolol. She does have family history of heart disease. She has not been sick and is generally been doing well since her heart cath. [facility] Medical History (Updated 06/02/22 @ 06:[address] Keyur Palmer MD) Anxiety and depression CAD (coronary artery disease) COPD (chronic obstructive pulmonary disease) HLD (hyperlipidemia) HTN (hypertension) Tobacco abuse Home Medications albuterol sulfate 90 mcg/actuation aerosol inhaler 8.5 gm inhalation DAILY 07/05/20 [History Last Taken Unknown] cariprazine 1.5 mg capsule 1.5 mg PO DAILY 07/05/20 [History Last Taken Unknown] clopidogrel 75 mg tablet 75 mg PO DAILY 07/05/20 [History Last Taken Unknown] trazodone 50 mg tablet 400 mg PO QHS 07/05/20 [History Last Taken Unknown] melatonin 10 mg tablet 20 mg PO QHS 10/08/21 [History Last Taken Unknown] vilazodone 40 mg tablet (Viibryd) 40 mg PO DAILY 10/08/21 [History Last Taken Unknown] aspirin 81 mg tablet,delayed release 81 mg PO DAILY 06/02/22 [History Last Taken Unknown] bupropion HCl 150 mg tablet,12 hr sustained-release (Wellbutrin SR) 150 mg PO DAILY 06/02/22 [History Last Taken Unknown] carbamazepine 200 mg tablet (Tegretol) 200 mg PO BID 06/02/22 [History Last Taken Unknown] cariprazine 1.5 mg capsule (Vraylar) 1.5 mg PO DAILY 06/02/22 [History Last Taken Unknown] clonazepam 0.5 mg tablet 0.5 mg PO BID 06/02/22 [History Last Taken Unknown] isosorbide mononitrate 30 mg tablet,extended release 24 hr 30 mg PO DAILY 06/02/22 [History Last Taken Unknown] losartan 25 mg tablet 25 mg PO DAILY 06/02/22 [History Last Taken Unknown] pantoprazole 20 mg tablet,delayed release 20 mg PO DAILY 06/02/22 [History Last Taken Unknown] topiramate 100 mg tablet (Topamax) 100 mg PO BID 06/02/22 [History Last Taken Unknown] Allergy/AdvReac Type Severity Reaction Status Date / Time adhesive tape Allergy Hives Verified 06/02/22 05:13 aspirin [ASA] Allergy Other Verified 06/02/22 05:13 budesonide [From Symbicort] Allergy Anaphylaxis Verified 06/02/22 05:13 formoterol [From Symbicort] Allergy Anaphylaxis Verified 06/02/22 05:13 latex Allergy Hives Verified 06/02/22 05:13 Penicillins [PCN] Allergy Hives Verified 06/02/22 05:13 Surgical History H/O: hysterectomy History of cholecystectomy History of heart artery stent Hx of tonsillectomy Social History household members: spouse Smoking Status: Current every day smoker tobacco type: cigarettes substance use type: does not use ROS ROS ED Constitutional Constitutional ED: Denies chills or fever(s) Eyes Eyes: Denies change in vision ENT ENT ED: Denies rhinorrhea or sore throat Cardiovascular Cardiovascular: Reports as per HPI Respiratory/Chest Respiratory/Chest: Reports dyspnea; Denies cough Gastrointestinal Gastrointestinal: Reports nausea; Denies vomiting Musculoskeletal Musculoskeletal: Denies back pain or neck pain Integumentary Denies rash Neurologic Neurologic: Denies headache(s) or paresthesias Psychiatric Psychiatric: Reports anxiety Endocrine Endocrinology: Denies polydipsia or polyuria Hematologic/Lymphatic Hematologic/Lymphatic: Reports easy bleeding and easy bruising Allergic/Immunologic Allergic/Immunologic ED: Denies urticaria EXAM Physical Exam Narrative Exam Narrative: Patient is awake alert no acute distress sitting in bed at this time. She carries on normal conversation. HEENT shows no rash or tenderness. Mucous membranes are moist. No diaphoresis. Eyes Free range of motion Neck shows no JVD. No tenderness. No subcu air. Chest is clear. She can take good deep breaths without any pain or discomfort. Heart is regular with a rate of about 60. No murmur gallop or rub is noted. No chest wall tenderness. Peripheral pulses are good. Abdomen is soft nontender and normal bowel sounds. No CVA or suprapubic tenderness Extremities show no edema cords tenderness or asymmetry. Patient is alert oriented and appropriate Skin shows no diaphoresis or rash. Const Vital Signs: 06/02/22 05:09 Temperature 96.9 F L Temperature Source Temporal Pulse Rate 60 Respiratory Rate 16 Blood Pressure 97/61 Blood Pressure Mean 73 Pulse Ox 96 Oxygen Delivery Method Room Air MDM MDM MDM Narrative Medical decision making narrative: My independent interpretation of the patient's single AP chest x-ray shows no acute process. No pneumothorax. No infiltrate. No abnormal mediastinum. Final reading by radiology shows normal x-ray examination of the chest. CBC electrolytes are normal. Glucose is minimally up at 131. Troponin is quite normal at 5. This patient symptoms are resolved. The EKG showed no acute process but she was not having symptoms when this was done. Her work-up so far is negative. However, she has significant heart disease just had stenting done and had the same symptoms as prior to the stents. I called and directly discussed these issues with our project control manager, Dr. Shine. He recommend that we do bring her in the hospital. She will have enzymes cycled and likely stress test to look further. I then discussed the case with hospitalist who is seeing her in the emergency department. Lab Data Attestation: I reviewed the patient's lab results. Labs: Laboratory Results - last 24 hr 06/02/22 06/02/22 05:30 05:30 WBC 4.5 RBC 4.42 Hgb 13.2 Hct 40.0 MCV 90.5 MCH 29.9 MCHC 33.0 RDW Std Deviation 44.7 H RDW Coeff of Benigno 13.5 Plt Count 168 MPV 8.9 Immature Gran % (Auto) 0.200 Neut % (Auto) 54.4 Lymph % (Auto) 35.0 Mccracken % (Auto) 6.8 Eos % (Auto) 2.9 Baso % (Auto) 0.7 Absolute Neuts (auto) 2.5 Absolute Lymphs (auto) 1.59 Nucleated RBC % 0 Sodium 140 Potassium 3.5 Chloride 112 H Carbon Dioxide 21.0 Anion Gap 7 BUN 12 Creatinine 0.89 Estim Creat Clear Calc 70.27 Est GFR (MDRD) Af Amer 85 Est GFR (MDRD) Non-Af 70 BUN/Creatinine Ratio 13.5 Glucose 131 H Calcium 8.4 L Troponin I High Sens 5 EKG Initial EKG: Comments: My independent interpretation of EKG done for chest pain shows a sinus rhythm with overall rate of 60. No ventricular ectopy. No acute ST elevation or depression. PA interval, QRS duration and QTc are normal. This was compared with prior EKG from 08 October 2021 and shows no marked interval change. Discharge Plan Triage Chief Complaint: Chest Pain ED Provider: Keyur Palmer Dx/Rx/DC Orders Clinical Impression: Chest pain, History of CAD (coronary artery disease), Bradycardia, sinus Prescriptions: No Action trazodone 50 MG tablet 400 mg PO QHS clopidogrel 75 MG tablet 75 mg PO DAILY albuterol sulfate 8.5 GM HFA aerosol inhaler 8.5 gm INHALATION DAILY Label Comments: INHALE 2 PUFFS BY MOUTH EVERY 6 HOURS NEEDED cariprazine 1.5 MG capsule 1.5 mg PO DAILY vilazodone [Viibryd] 40 mg Tablet 40 mg PO DAILY melatonin 10 mg Tablet 20 mg PO QHS bupropion HCl [Wellbutrin SR] 150 mg Tablet Sustained-Release 12 Hr 150 mg PO DAILY isosorbide mononitrate 30 mg Tablet Extended Release 24 Hr 30 mg PO DAILY clonazepam 0.5 mg Tablet 0.5 mg PO BID pantoprazole 20 mg Tablet,Delayed Release (Dr/Ec) 20 mg PO DAILY carbamazepine [Tegretol] 200 mg Tablet 200 mg PO BID losartan 25 mg Tablet 25 mg PO DAILY topiramate [Topamax] 100 mg Tablet 100 mg PO BID Vraylar 1.5 mg Capsule 1.5 mg PO DAILY aspirin [Aspir-81] 81 mg Tablet,Delayed Release (Dr/Ec) 81 mg PO DAILY Primary Care Provider: Solis Cool Referrals: Solis Cool, [Primary Care Provider] - Disposition Disposition: Acute Care [facility] What to do if you have Problems For any increased pain, shortness of breath, bleeding, nausea or vomiting, chestpain, or any unexpected problems, contact your Primary Care Provider. Call [facility] ([phone]) or report to the closest Emergency Room. Call 911 if necessary. 06/02/22 0648 <Electronically signed by Keyur Palmer MD> Cosigner Signature (if applicable): CC: Dr. Solis Cool, ~ Signed [facility] Work Phone: Discharge summary Author Dr. Lake [facility] June 02, 2022 4:31pm Note Date/Time June 02, 2022 3 :47pm [facility] Medical Records Department [address] [place] [id number] Instructions for Home/Discharge Instructions 06/02/22 1546 MR#: [id number] Acct: [id number] Name: JOSIE LANDIS Rep #:[id number] : 1965 56 From: Rajwinder Lake MD PCP: Dr. Solis Cool DO Status:AD M AYANA Discharge Instructions Diet Discharge Diet: - (DASH diet) Activity Discharge Activity: Return to Normal Activity Follow Up Care Test Results: Test results from this visit will be discussed in further detail at your follow- up appointment, if applicable. Discharge Plan Admission Admit Date/Time: 06/02/22 06:37 Primary Reason for Your Visit: Chest pain Attending Provider: Rajwinder Lake Primary Care Provider: Solis Cool Consulting Providers: Carmen Frias ; William Shine Instructions Patient Instructions: DASH Plan Eat Heart Healthy Food Additional Instructions / Restrictions: DISCHARGE INSTRUCTIONS PLEASE READ *Please take this with you to your next doctors appointment* ?Would recommend decreasing melatonin to 10 mg as this is the maximum recommended dose ?Your blood pressure was low during this admission and your losartan and your isosorbide mononitrate have been held, there are several other medications that you take that may also contribute to low blood pressure and would suggest discussing with your prescribing physician regarding all other home medications ? Please follow-up with your current project control manager upon discharge -Please call your primary care provider's office upon discharge to schedule a hospital follow up within 1 week. -For any concerning signs or symptoms please call 911 or proceed to the nearest emergency department Discharge Orders/Prescriptions Prescriptions: Continued trazodone 50 MG tablet 400 mg PO QHS clopidogrel 75 MG tablet 75 mg PO DAILY albuterol sulfate 8.5 GM HFA aerosol inhaler 8.5 gm INHALATION DAILY Label Comments: INHALE 2 PUFFS BY MOUTH EVERY 6 HOURS NEEDED vilazodone [Viibryd] 40 mg Tablet 40 mg PO DAILY bupropion HCl [Wellbutrin SR] 150 mg Tablet Sustained-Release 12 Hr 150 mg PO DAILY clonazepam 0.5 mg Tablet 0.5 mg PO BID pantoprazole 20 mg Tablet,Delayed Release (Dr/Ec) 20 mg PO DAILY carbamazepine [Tegretol] 200 mg Tablet 200 mg PO BID topiramate [Topamax] 100 mg Tablet 100 mg PO BID Vraylar 1.5 mg Capsule 1.5 mg PO DAILY aspirin 81 mg Tablet,Delayed Release (Dr/Ec) 81 mg PO DAILY Praluent Pen 75 mg/mL Pen Injector 75 mg SUBCUT Q14D Changed melatonin 10 mg Tablet 10 mg PO QHS Qty: 30 0RF Held isosorbide mononitrate 30 mg Tablet Extended Release 24 Hr 30 mg PO DAILY Hold Instructions: Resume on 06/10/22. With your project control manager regarding when to resume losartan 25 mg Tablet 25 mg PO DAILY Hold Instructions: Resume on 06/10/22. With your project control manager regarding when to resume Referrals / Follow Up: Solis Cool DO [Primary Care Provider] - Within 1 Week Disposition Disposition (needs filled in before D/C Order can be placed): Home, Self Care 06/02/22 1631<Electronically signed by Rajwinder Lake MD>Rajwinder Lake MD CC: Dr. Carmen Frias MD; Dr. William Sihne MD; Dr. Solis Cool DO ~ Signed [facility] Work Phone: Discharge summary Author Dr. Hawley [facility] June 09, 2022 3:27pm Note Date/Time June 09, 2022 3 :00pm [facility] Medical Records Department [address] [place] [address] Discharge Summary 06/09/22 1452 MR#: [id number] Acct: [id number] Name: JOSIE LANDIS Rep #:[id number] : 1965 56 From: Blayne Hawley MD PCP: Dr. Solis Cool DO Status:AD M IN Location: [address] Providers Date of Admission: 06/08/22 Date of Discharge: 06/09/22 Primary Care Physician: Dr. Solis Cool DO Reason For Visit: CVA Diagnosis Discharge Diagnosis (1) Acute cerebrovascular accident (CVA): Status: Acute Code(s): I63.9 - Cerebral infarction, unspecified Plan Patient is a 56-year-old lady with recent PCI 2 to 3 weeks prior to admission brought to the emergency department with increasing confusion and expressive aphasia in addition to fine motor difficulties. MRI obtained demonstrated signal abnormality in the splenium of the corpus callosum Coliseum with differential diagnosis including demyelination versus acute ischemia. Admitted to a monitored bed as a case of acute CVA 1. Acute CVA ? Patient presented with increasing confusion as well as expressive aphasia and mild motor difficulties. MRI obtained on admission demonstrated signal abnormality in the splenium of the corpus callosum Coliseum with differential diagnosis including demyelination versus acute ischemia. Admitted to monitored bed every 4 neurochecks ordered also ordered CTA of the head and neck in addition to consultation to telemetry neurology The echo demonstrated Normal LV size. Left ventricular systolic function is normal. The estimated ejection fraction is 65 %. Bubble contrast study is positive for PFO. ?Patient was discharged home on aspirin and Plavix. -An order was also given for patient to undergo a 30-day event monitor result yoana sent to patient's project control manager at [facility] Dr. Lopez 2. Hypokalemia ? Corrected per protocol repeat labs ordered for monitoring 3. Coronary artery disease ? With recent PCI 4. Essential hypertension ? Patient blood pressure within acceptable levels 5. COPD ? Currently not in exacerbation aerosol treatment as needed 6. Dyslipidemia ? Patient is on atorvastatin 80 mg continue 7. Tobacco dependence - Counseled on cessation, offered nicotine patch for tobacco cravings 8. Depression with anxiety Did continue patient psychotropic medications 9. DVT prophylaxis ? SC Lovenox Time spent in the patient's overall evaluation,decision-making process, review of diagnostic data, adjustment of management, discussion with other providers, nursing nursing and ancillary staff involved in patient's care documentation,56 Minutes Medications at Discharge Home Medications albuterol sulfate 90 mcg/actuation aerosol inhaler 8.5 gm inhalation DAILY breathing 07/05/20 clopidogrel 75 mg tablet 75 mg PO DAILY anti platelet 07/05/20 trazodone 50 mg tablet 400 mg PO QHS sleep 07/05/20 vilazodone 40 mg tablet (Viibryd) 40 mg PO DAILY mental health 10/08/21 alirocumab 75 mg/mL subcutaneous pen injector (Praluent Pen) 75 mg subcut Q14D cholesterol 06/02/22 aspirin 81 mg tablet,delayed release 81 mg PO DAILY heart health 06/02/22 bupropion HCl 150 mg tablet,12 hr sustained-release (Wellbutrin SR) 150 mg PO DAILY mental health 06/02/22 carbamazepine 200 mg tablet (Tegretol) 400 mg PO BID seizures 06/02/22 cariprazine 1.5 mg capsule (Vraylar) 1.5 mg PO DAILY mental health 06/02/22 clonazepam 0.5 mg tablet 0.5 mg PO BID anxiety 06/02/22 isosorbide mononitrate 30 mg tablet,extended release 24 hr 30 mg PO DAILY heart 06/02/22 losartan 25 mg tablet 25 mg PO DAILY blood pressure 06/02/22 pantoprazole 20 mg tablet,delayed release 40 mg PO DAILY reflux 06/02/22 topiramate 100 mg tablet (Topamax) 100 mg PO BID seizures 06/02/22 atorvastatin 80 mg tablet 80 mg PO QHS CHOLESTEROL 06/08/22 melatonin 10 mg tablet 10 mg PO QHS SLEEP 06/08/22 metoprolol succinate 25 mg tablet,extended release 24 hr 12.5 mg PO DAILY HTN 06/08/22 nicotine 21 mg/24 hr daily transdermal patch 1 patch transdermal DAILY SMOKING CEASATION 06/08/22 Hospital Course Procedures 2-D Echocardiogram Summary of Care Provided Minutes Spent on Discharge: 35 Physical Exam Narrative GENERAL: cooperative HEENT: Atraumatic; normocephalic EYES; Anicteric, Normal Conjunctiva NECK; supple, normal thyroid, RESPIRATORY: Diminished to auscultation CARDIOVASCULAR: Regular S1 S2, GI: soft, normoactive bowel sounds, : No Renal angle tenderness; EXTREMITIES: No edema, no clubbing, MUSCULOSKELETAL: no muscle wasting NEURO: Awake; no lateralizing signs. SKIN: No Rash PSYCH; Flat affect Weight / BMI Weight Weight: 81.6 kg Body Mass Index (BMI) 27.3 ABG / Lab / Microbiology Data Result Diagrams: 06/09/22 05:48 06/09/22 05:48 Laboratory: Laboratory Results - last 24 hr 06/08/22 13:02: Magnesium 2.0 06/09/22 05:48: WBC 5.7, RBC 4.26, Hgb 12.7, Hct 39.4, MCV 92.5, MCH 29.8, MCHC 32.2, RDW Std Deviation 44.9 H, RDW Coeff of Benigno 13.5, Plt Count 163, MPV 9.5, Immature Gran % (Auto) 0.300, Neut % (Auto) 71.0 H, Lymph % (Auto) 20.1, Mccracken % (Auto) 6.6, Eos % (Auto) 1.7, Baso % (Auto) 0.3, Absolute Neuts (auto) 4.1, Absolute Lymphs (auto) 1.15, Nucleated RBC % 0 06/09/22 05:48: Sodium 143, Potassium 3.9, Chloride 114 H, Carbon Dioxide 21.0, Anion Gap 8, BUN 8, Creatinine 0.82, Estim Creat Clear Calc 76.27, Est GFR (MDRD) Af Amer 94, Est GFR (MDRD) Non-Af 78, BUN/Creatinine Ratio 9.8 L, [id number] H, Calcium 8.3 L, Total Bilirubin 0.30, AST 12 L, ALT 25, Alkaline Phosphatase 86, Total Protein 5.8 L, Albumin 3.0 L, Globulin 2.8, Albumin/Globulin Ratio 1.1, Triglycerides 111, Cholesterol 95, LDL Cholesterol 20, VLDL Cholesterol 22, HDL Cholesterol 53, TSH 3.39 06/09/22 05:48: Hemoglobin A1c 5.2 Radiography Diagnostic Testing: Radiology Impression Brain MRI 06/08/22 00:00 IMPRESSION: Signal abnormality in the splenium of the corpus callosum. Differential considerations include demyelination, acute ischemia, high-grade glioma. Additional considerations include encephalitis or acute disseminated encephalomyelitis (ADEM), posterior reversible encephalopathy syndrome (PRES). Limited additional T2 signal hyperintensity are nonspecific and may be due to microvascular ischemia, demyelination, vasculitis. Electronically Signed: Jacqueline Banegas MD at 17:03 EST Reading Location ID and State: Dann Rabago MD Tel , Service support , ADDENDUM: 06/08/22 1857 IMPRESSION: Signal abnormality in the splenium of the corpus callosum. Differential considerations include demyelination, acute ischemia, high-grade glioma. Additional considerations include encephalitis or acute disseminated encephalomyelitis (ADEM), posterior reversible encephalopathy syndrome (PRES). Limited additional T2 signal hyperintensity are nonspecific and may be due to microvascular ischemia, demyelination, vasculitis. N.B. : The above Results were Read Back by Jacqueline Banegas MD to Dr. Carmen Frias MD, and understanding confirmed on 06/08/2022 18:50:08 (ET). Electronically Signed: Jacqueline Banegas MD at 17:03 EST Reading Location ID and State: Dann Rabago MD Tel , Service support , Head/Neck CTA 06/08/22 17:47 IMPRESSION: Negative CTA Carotid and CTA Brain. Electronically Signed: Jacqueline Banegas MD at 18:59 EST Reading Location ID and State: Dann Rabago MD Tel , Service support , Echocardiogram 06/08/22 21:45 Interpretation Summary Normal LV size. Left ventricular systolic function is normal. The estimated ejection fraction is 65 %. Bubble contrast study is positive for PFO. Ordering Physician: Carmen Frias Referring Physician: Francis Chatterjee M.D. Performed By: Sandra Swanson RDCS D/C Instructions Discharge Diet: No restrictions Discharge Activity: Return to Normal Activity Call your doctor if you observe: Fever of 101 or Higher, Shortness of breath, Fainting spells and Chest pain Meaningful Use Info Meaningful Use Diagnoses (Choose all that apply): None applicable Discharge Plan Admission Admit Date/Time: 06/08/22 17:55 Attending Provider: Blayne Hawley Primary Care Provider: Solis Cool Consulting Providers: Carmen Frias Discharge Orders/Prescriptions Prescriptions: Continued trazodone 50 MG tablet 400 mg PO QHS clopidogrel 75 MG tablet 75 mg PO DAILY albuterol sulfate 8.5 GM HFA aerosol inhaler 8.5 gm INHALATION DAILY Label Comments: INHALE 2 PUFFS BY MOUTH EVERY 6 HOURS NEEDED vilazodone [Viibryd] 40 mg Tablet 40 mg PO DAILY bupropion HCl [Wellbutrin SR] 150 mg Tablet Sustained-Release 12 Hr 150 mg PO DAILY isosorbide mononitrate 30 mg Tablet Extended Release 24 Hr 30 mg PO DAILY Hold Instructions: Resume on 06/10/22. With your project control manager regarding when to resume clonazepam 0.5 mg Tablet 0.5 mg PO BID pantoprazole 20 mg Tablet,Delayed Release (Dr/Ec) 40 mg PO DAILY carbamazepine [Tegretol] 200 mg Tablet 400 mg PO BID losartan 25 mg Tablet 25 mg PO DAILY Hold Instructions: Resume on 06/10/22. With your project control manager regarding when to resume topiramate [Topamax] 100 mg Tablet 100 mg PO BID Vraylar 1.5 mg Capsule 1.5 mg PO DAILY aspirin 81 mg Tablet,Delayed Release (Dr/Ec) 81 mg PO DAILY Praluent Pen 75 mg/mL Pen Injector 75 mg SUBCUT Q14D atorvastatin 80 mg tablet 80 mg PO QHS Label Comments: Take 1 tablet by mouth daily at bedtime nicotine 21 mg/24 hr Patch 24 Hour 1 patch TRANSDERMAL DAILY metoprolol succinate 25 mg tablet extended release 24 hr 12.5 mg PO DAILY Label Comments: TAKE 1/2 TABLET BY MOUTH ONCE DAILY melatonin 10 mg tablet 10 mg PO QHS Referrals / Follow Up: Solis Cool DO [Primary Care Provider] - In 1 Week Disposition Disposition (needs filled in before D/C Order can be placed): Home, Self Care Charges/Coding Visit Charges Inpatient E&M: [id number] Disch Hosp >30min 06/09/22 152 <Electronically signed by Blayne Hawley MD> Cosigner Signature (if applicable): CC: Dr. Blayne Hawley MD; Dr. Solis Cool DO~ Signed [facility] Work Phone: Evaluation noteNo assessment information available [facility] Work Phone: Evaluation note* Diagnosis Onset Date Resolution Status Bradycardia, sinus acute Chest pain acute History of CAD (coronary artery disease) acute [facility] Work Phone: evaluation note* Diagnosis Onset Date Resolution Status Bradycardia, sinus acute Chest pain acute History of CAD (coronary artery disease) acute Acute cerebrovascular accident (CVA) acute Confusion acute History of CAD (coronary artery disease) acute [facility] Work Phone: Evaluation note* Diagnosis Arterial ischemic stroke (HCC)- Primary Unspecified cerebral artery occlusion with cerebral infarction Cerebral infarction, unspecified mechanism (HCC) [facility] Diagnosis Arterial ischemic stroke (HCC)- Primary Unspecified cerebral artery occlusion with cerebral infarction Cerebral infarction, unspecified mechanism (HCC) [facility] Diagnosis Onset Date Resolution Status Acute cerebrovascular accident (CVA) acute [id number] chronic HLD (hyperlipidemia) chronic HTN (hypertension) chronic Tobacco abuse chronic [facility] Work Phone: Evaluation note* Diagnosis 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 [facility] Diagnosis Pre-op evaluation- Primary Preoperative examination, unspecified 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 Primary hypertension Unspecified essential hypertension Seizures (HCC) Other convulsions Asthma due to seasonal allergies Coronary artery disease involving wiyot coronary artery of wiyot heart without angina pectoris Gastroesophageal reflux disease without esophagitis Esophageal reflux 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 [facility] 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 [facility] Diagnosis Glioma (HCC)- Primary 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 [facility] Diagnosis 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 [facility] Diagnosis Lesion of brain- Primary Other conditions of brain Speech disturbance, unspecified type Alexia Confusion Unspecified psychosis Visual field defect Visual field defect, unspecified [facility] Diagnosis Brain mass- Primary Unspecified condition of brain Alexia Lesion of brain Other conditions of brain Speech disturbance, unspecified type Visual field defect Visual field defect, unspecified Confusion Unspecified psychosis [facility] Diagnosis Corpus callosum syndrome (HCC)- Primary Other specified disorder of nervous system [facility] Diagnosis Lesion of brain- Primary Other conditions of brain Speech disturbance, unspecified type 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 Brain mass Unspecified condition of brain [facility] Brain lesion- Primary Other conditions of brain Homonymous hemianopsia, right [facility] Diagnosis Lesion of brain- Primary Other conditions of brain Confusion 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 Speech disturbance, unspecified type Alexia Visual field defect Visual field defect, unspecified [facility] Diagnosis Brain lesion- Primary Other conditions of brain Diarrhea of presumed infectious origin [facility] Diagnosis Brain lesion- Primary Other conditions of brain [facility] Diagnosis Neoplasm of uncertain behavior of brain, 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 Brain lesion Other conditions of brain Confusion Unspecified psychosis Alexia Visual field defect Visual field defect, unspecified [facility] Diagnosis Brain lesion- Primary Other conditions of brain 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 [facility] Diagnosis Neoplasm Neoplasm of unspecified nature, site unspecified Lesion of brain Other conditions of brain 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, 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 [facility] Diagnosis Cerebral infarction, unspecified mechanism (HCC) Neoplasm of uncertain behavior of brain, 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 [facility] Diagnosis 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, 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 [facility] Diagnosis Lesion of brain Other conditions of brain Neoplasm of uncertain behavior of brain, 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 [facility] Diagnosis Brain lesion- Primary Other conditions of brain Neoplasm of uncertain behavior of brain, 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 [facility] Diagnosis Brain lesion- Primary Other conditions of brain 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 Confusion Unspecified psychosis Visual field defect Visual field defect, unspecified Neoplasm of uncertain behavior of brain, 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 [facility] Neoplasm of uncertain behavior of brain, 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 Brain lesion Other conditions of brain Confusion Unspecified psychosis Alexia Visual field defect Visual field defect, unspecified 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 [facility] Diagnosis Brain lesion- Primary Other conditions of brain [facility] Diagnosis [employer] 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, unspecified Neuropathy Mononeuritis of unspecified site [facility]* Diagnosis Brain lesion- Primary Other conditions of brain Visual field defect Visual field defect, unspecified Lesion of brain Other conditions of brain 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 [facility] Diagnosis Brain lesion- Primary Other conditions of brain Corpus callosum white matter abnormalities present on MRI CSF abnormal Nonspecific abnormal finding in cerebrospinal fluid Abnormal gait Abnormality of gait [facility] Diagnosis Brain lesion Other conditions of brain [facility] Diagnosis Brain lesion Other conditions of brain [facility] Diagnosis Brain lesion- Primary Other conditions of brain Visual field defect Visual field defect, unspecified Seizures (HCC) Other convulsions Confusion Unspecified psychosis Alexia Paresthesia of both legs Disturbance of skin sensation Neoplasm of uncertain behavior of brain, 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 [facility] Diagnosis Brain lesion- Primary Other conditions of brain [facility] Diagnosis [employer] 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, unspecified Brain lesion Other conditions of brain [facility] Diagnosis Brain lesion- Primary Other conditions of brain Confusion Unspecified psychosis Visual field defect Visual field defect, unspecified Alexia Lesion of brain Other conditions of brain Speech disturbance, unspecified type Seizures (HCC) Other convulsions [facility] Diagnosis Brain lesion- Primary Other conditions of brain [facility] Diagnosis Seizures (HCC)- Primary Other convulsions History of psychogenic nonepileptic seizure Brain lesion Other conditions of brain [facility]* Diagnosis Seizures (HCC)- Primary Other convulsions [facility]* Diagnosis Pre-op evaluation- Primary Preoperative examination, unspecified 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 Primary hypertension Unspecified essential hypertension Seizures (HCC) Other convulsions Asthma due to seasonal allergies Coronary artery disease involving wiyot coronary artery of wiyot heart without angina pectoris Gastroesophageal reflux disease without esophagitis Esophageal reflux Seizures (HCC)- Primary Other convulsions [facility] Diagnosis Pre-op evaluation- Primary Preoperative examination, unspecified 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 Primary hypertension Unspecified essential hypertension Seizures (HCC) Other convulsions Asthma due to seasonal allergies Coronary artery disease involving wiyot coronary artery of wiyot heart without angina pectoris Gastroesophageal reflux disease without esophagitis Esophageal reflux Brain lesion Other conditions of brain [facility]* Diagnosis Pre-op evaluation- Primary Preoperative examination, unspecified 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 Primary hypertension Unspecified essential hypertension Seizures (HCC) Other convulsions Asthma due to seasonal allergies Coronary artery disease involving wiyot coronary artery of wiyot heart without angina pectoris Gastroesophageal reflux disease without esophagitis Esophageal reflux Brain lesion- Primary Other conditions of brain [facility] Diagnosis Pre-op evaluation- Primary Preoperative examination, unspecified 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 Primary hypertension Unspecified essential hypertension Seizures (HCC) Other convulsions Asthma due to seasonal allergies Coronary artery disease involving wiyot coronary artery of wiyot heart without angina pectoris Gastroesophageal reflux disease without esophagitis Esophageal reflux Seizures (HCC) Other convulsions [facility] Diagnosis Pre-op evaluation- Primary Preoperative examination, unspecified 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 Primary hypertension Unspecified essential hypertension Seizures (HCC) Other convulsions Asthma due to seasonal allergies Coronary artery disease involving wiyot coronary artery of wiyot heart without angina pectoris Gastroesophageal reflux disease without esophagitis Esophageal reflux Brain lesion- Primary Other conditions of brain Alexia Seizures (HCC) Other convulsions Paresthesia of both legs Disturbance of skin sensation Lesion of brain Other conditions of brain Confusion Unspecified psychosis Visual field defect Visual field defect, unspecified Speech disturbance, unspecified type Neoplasm of uncertain behavior of brain, 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 Unspecified condition of brain [facility] Diagnosis Pre-op evaluation- Primary Preoperative examination, unspecified 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 Primary hypertension Unspecified essential hypertension Seizures (HCC) Other convulsions Asthma due to seasonal allergies Coronary artery disease involving wiyot coronary artery of wiyot heart without angina pectoris Gastroesophageal reflux disease without esophagitis Esophageal reflux Brain lesion- Primary Other conditions of brain [facility] Diagnosis Pre-op evaluation- Primary Preoperative examination, unspecified 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 Primary hypertension Unspecified essential hypertension Seizures (HCC) Other convulsions Asthma due to seasonal allergies Coronary artery disease involving wiyot coronary artery of wiyot heart without angina pectoris Gastroesophageal reflux disease without esophagitis Esophageal reflux Recurrent seizures (HCC)- Primary Other forms of epilepsy and recurrent seizures without mention of intractable epilepsy [facility]* Diagnosis Pre-op evaluation- Primary Preoperative examination, unspecified 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 Primary hypertension Unspecified essential hypertension Seizures (HCC) Other convulsions Asthma due to seasonal allergies (HCC) Coronary artery disease involving wiyot coronary artery of wiyot heart without angina pectoris Gastroesophageal reflux disease without esophagitis Esophageal reflux Brain lesion Other conditions of brain [facility]* Diagnosis Pre-op evaluation- Primary Preoperative examination, unspecified 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 Primary hypertension Unspecified essential hypertension Seizures (HCC) Other convulsions Asthma due to seasonal allergies (HCC) Coronary artery disease involving wiyot coronary artery of wiyot heart without angina pectoris Gastroesophageal reflux disease without esophagitis Esophageal reflux Brain lesion- Primary Other conditions of brain Alexia Paresthesia of both legs Disturbance of skin sensation Visual field defect Visual field defect, unspecified Blurry vision Other specified visual disturbances Encounter for observation for suspected malignant neoplasm Visual disturbance Unspecified visual disturbance [facility] Diagnosis Pre-op evaluation- Primary Preoperative examination, unspecified 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 Primary hypertension Unspecified essential hypertension Seizures (HCC) Other convulsions Asthma due to seasonal allergies (HCC) Coronary artery disease involving wiyot coronary artery of wiyot heart without angina pectoris Gastroesophageal reflux disease without esophagitis Esophageal reflux Brain lesion- Primary Other conditions of brain [facility]* Diagnosis Onset Date Resolution Status Admit Date Dyspnea on exertion acute November 24, 2024 9:00am History of heart artery stent acute November 24, 2024 9:00am Atherosclerosis of wiyot coronary artery of wiyot heart without angina chronic November 24, 2024 9:00am HLD (hyperlipidemia) chronic November 24, 2024 9:00am HTN (hypertension) chronic November 012024 9:00am [facility] Work Phone: History and physical note Author Dr. Frias [facility] June 02, 2022 6:59am Note Date/Time June 02, 2022 6 :39am [facility] Medical Records Department [address] [place] [address] H&P Exam - Hospitalist 06/02/22 0658 MR#: [id number] Acct: [id number] Name: JOSIE LANDIS Rep #:[id number] : 1965 56 From: Carmen Frias MD PCP: Dr. Solis Cool, DO Status:AD M AYANA [id number] - General General Date of Admission: 06/02/22 Date of Service: 06/02/22 Chief Complaint: Chest pain HPI Narrative The patient is a 56 y/o F w/ PMHx: Tobacco use, COPD, CAD s/p PCI, HTN, HLD, Anxiety and Depression/Bipolar disorder who presents to the [facility] ED on 06/02/22 with history of this a.m. prior to ED presentation at ~ 4:45 am awakening her from sleep onset anterior chest heaviness, rated 10/10 in severity, describing as someone actually sitting on her chest with associated nausea without emesis and diaphoresis with mild dyspnea which was similar to what she had prior when she was evaluated for PCI with history of recent PCI of her circumflex 2 weeks prior to current presentation at [facility] prompting ED evaluation. She did self administer NG prior to arrival and her chest pain has currently resolved. She notes her mother had PCI and 2-3 days following had a massive W[place] which is why she came in and because the discomfort was severe. Patient has had prior stenting of the mid RCA with noted 60% in-stent restenosisas well as prior stenting of proximal LAD with 40% in-stent restenosis and a newlesion most recently in the mid circumflex that was 85% stenosed that was reduced to less than 5% following stenting. She states she has been taking her aspirin, Plavix as well as statin and metoprolol. She remains chest pain free currently. Work-up in the ED included T96.9, heart rate 60, BP 97/61, respiratory rate 16, 96% on room air, CBC with WC 4.5, hemoglobin 13.2, [id number] without marked shift, BMP with chloride 112, glucose 131, calcium 8.4 not otherwise not marked appearing, troponin 5, chest x-ray with no acute cardiopulmonary findings, EKG with sinus rhythm with no acute evidence of ischemia similar to last EKG performed. [facility] Medical History Anxiety and depression CAD (coronary artery disease) COPD (chronic obstructive pulmonary disease) HLD (hyperlipidemia) HTN (hypertension) Tobacco abuse Home Medications albuterol sulfate 90 mcg/actuation aerosol inhaler 8.5 gm inhalation DAILY 07/05/20 [History Last Taken Unknown] cariprazine 1.5 mg capsule 1.5 mg PO DAILY 07/05/20 [History Last Taken Unknown] clopidogrel 75 mg tablet 75 mg PO DAILY 07/05/20 [History Last Taken Unknown] trazodone 50 mg tablet 400 mg PO QHS 07/05/20 [History Last Taken Unknown] melatonin 10 mg tablet 20 mg PO QHS 10/08/21 [History Last Taken Unknown] vilazodone 40 mg tablet (Viibryd) 40 mg PO DAILY 10/08/21 [History Last Taken Unknown] aspirin 81 mg tablet,delayed release 81 mg PO DAILY 06/02/22 [History Last Taken Unknown] bupropion HCl 150 mg tablet,12 hr sustained-release (Wellbutrin SR) 150 mg PO DAILY 06/02/22 [History Last Taken Unknown] carbamazepine 200 mg tablet (Tegretol) 200 mg PO BID 06/02/22 [History Last Taken Unknown] cariprazine 1.5 mg capsule (Vraylar) 1.5 mg PO DAILY 06/02/22 [History Last Taken Unknown] clonazepam 0.5 mg tablet 0.5 mg PO BID 06/02/22 [History Last Taken Unknown] isosorbide mononitrate 30 mg tablet,extended release 24 hr 30 mg PO DAILY 06/02/22 [History Last Taken Unknown] losartan 25 mg tablet 25 mg PO DAILY 06/02/22 [History Last Taken Unknown] pantoprazole 20 mg tablet,delayed release 20 mg PO DAILY 06/02/22 [History Last Taken Unknown] topiramate 100 mg tablet (Topamax) 100 mg PO BID 06/02/22 [History Last Taken Unknown] Allergy/AdvReac Type Severity Reaction Status Date / Time adhesive tape Allergy Hives Verified 06/02/22 05:13 aspirin [ASA] Allergy Other Verified 06/02/22 05:13 budesonide [From Symbicort] Allergy Anaphylaxis Verified 06/02/22 05:13 formoterol [From Symbicort] Allergy Anaphylaxis Verified 06/02/22 05:13 latex Allergy Hives Verified 06/02/22 05:13 Penicillins [PCN] Allergy Hives Verified 06/02/22 05:13 Family History Mother CAD (coronary artery disease) Heart disease Hypertension Myocardial infarction Father CAD (coronary artery disease) CVA (cerebral vascular accident) Heart disease Hypertension Surgical History H/O: hysterectomy History of cholecystectomy History of heart artery stent Hx of tonsillectomy Social History (Updated 06/02/22 @ 06:[address] Carmen Frias MD) household members: spouse Smoking Status: Current every day smoker tobacco type: cigarettes Smoking packs per day: 0.5 Smoking cigarettes per day: 10.0 alcohol intake: never substance use type: does not use ROS ROS Narrative Admission Review of Systems: CONSTITUTIONAL: No weight loss, fever, chills, + weakness or fatigue. HEENT: Eyes: No visual loss, blurred vision, double vision or yellow sclerae. Ears, Nose, Throat: No hearing loss, sneezing, congestion, runny nose or sore throat. SKIN: No rash or itching, lesions, wounds. CARDIOVASCULAR: + chest pain, chest pressure or chest discomfort, No palpitations, edema, orthopnea, syncopal events. RESPIRATORY: + shortness of breath, No cough or sputum, wheezing, hemoptysis. GASTROINTESTINAL: + anorexia, nausea, No vomiting or diarrhea, abdominal pain, melena, BRBPR. GENITOURINARY: No dysuria, frequency, urgency or retention. NEUROLOGICAL: No headache, dizziness, syncope, paralysis, ataxia, numbness or tingling in the extremities, focal weakness, change in bowel or bladder control, seizure. MUSCULOSKELETAL: + muscle, back pain, joint pain or stiffness. HEMATOLOGIC: No anemia, bleeding or bruising. LYMPHATICS: No enlarged nodes. No history of splenectomy. PSYCHIATRIC: + history of depression or anxiety. ENDOCRINOLOGIC: + reports of sweating. No cold or heat intolerance. No polyuria or polydipsia. ALLERGIES: + history of asthma, hives, rhinitis. Vital Signs Vital Signs Vital Signs: 06/02/22 05:09 06/02/22 06:21 06/02/22 06:26 Temperature 96.9 F L 97.6 F L Temperature Source Temporal Temporal Pulse Rate 60 56 L 58 L Respiratory Rate 16 18 Blood Pressure 97/61 92/56 L Blood Pressure Mean 73 68 Pulse Ox 96 94 Oxygen Delivery Method Room Air Room Air Weight Weight: 173 lb 8.061 oz Body Mass Index (BMI) 27.1 Physical Exam Narrative Physical Examination: General: Awake, alert, oriented x 3 and cooperative, seated upright in the ED bed in no apparent distress, notes chest pain free currently. Skin: Normal color, normal turgor, no icterus, no cyanosis. HEENT: AT/NC, EOMI, PERRLA, MMM, no carotid bruits or JVD noted. Lungs: CTA bilaterally, moderate effort, mild decrease BL bases, no rales, ronchi or wheezing. Heart: Currently mildly bradycardic with regular rhythm; no gallop, rub audible. Abdomen: Soft, overweight, NTTP, ND, distant normal BS, no HSM. Extremities: No cyanosis, clubbing, or edema. Neurological: Patient awake, alert, oriented as noted, cognitive function intact; pupils equally reactive to light and accommodation, cranial nerves II-XII grossly normal, moving all 4 extremities, no focal deficits, strength improved, mildly global decreased secondary to acute recent events. Psychiatric: Affect appears fatigued otherwise normal, no acute evidence of depressive or anxiety feelings but does have notable history. Results Lab / Micro Data Result Diagrams: 06/02/22 05:30 06/02/22 05:30 Labs: Laboratory Results - last 24 hr 06/02/22 05:30: WBC 4.5, RBC 4.42, Hgb 13.2, Hct 40.0, MCV 90.5, MCH 29.9, MCHC 33.0, RDW Std Deviation 44.7 H, RDW Coeff of Benigno 13.5, Plt Count 168, MPV 8.9, Immature Gran % (Auto) 0.200, Neut % (Auto) 54.4, Lymph % (Auto) 35.0, Mccracken % (Auto) 6.8, Eos % (Auto) 2.9, Baso % (Auto) 0.7, Absolute Neuts (auto) 2.5, Absolute Lymphs (auto) 1.59, Nucleated RBC % 0 06/02/22 05:30: Sodium 140, Potassium 3.5, Chloride 112 H, Carbon Dioxide 21.0, Anion Gap 7, BUN 12, Creatinine 0.89, Estim Creat Clear Calc 70.27, Est GFR (MDRD) Af Amer 85, Est GFR (MDRD) Non-Af 70, BUN/Creatinine Ratio 13.5, Glucose 131 H, Calcium 8.4 L, Troponin I High Sens 5 Radiology Impression Chest X-Ray 06/02/22 05:20 IMPRESSION: Normal x-ray examination of the chest. Electronically Signed: Avila Rae MD at 6:16 EST Reading Location ID and State: [id number] / , Service support , Assessment & Plan Assessment/Plan (1) Chest pain: PLAN: Plan The patient is a 56 y/o F w/ PMHx: Tobacco use, COPD, CAD s/p PCI, HTN, HLD, Anxiety and Depression/Bipolar disorder who presents to the [facility] ED on 06/02/22 with history of this a.m. prior to ED presentation at ~ 4:45 am awakening her from sleep onset anterior chest heaviness, rated 10/10 in severity, describing as someone actually sitting on her chest with associated nausea without emesis and diaphoresis with mild dyspnea which was similar to what she had prior when she was evaluated for PCI with history of recent PCI of her circumflex 2 weeks prior to current presentation at [facility] prompting ED evaluation. #1. Chest Pain s/p recent PCI ~2 weeks prior: EKG in ED with sinus rhythm with no acute evidence of ischemia, CXR w/ no acute cardiopulmonary finding, initial troponin 5. Will admit to PCU, place on a monitored bed to assure no acute myocardial infarction with serial cardiac enzymes and EKGs. If repeat serial cardiac enzymes and EKGs remain unremarkable will pursue a.m. cardiac stress testing per cardiology recommendation. FLP in AM. Magnesium level requested. Cardiology consulted and discussed case with ED physician therefore will continue as they noted if any concerns arise they may need to recatheterized. #2. Hyperglycemia, mild: Admission glucose 131, possibly stress response, hemoglobin A1c requested to be cautious. #3. CAD: Status post prior PCI, most recently approximately 2 weeks prior, will continue aspirin, Plavix, statin, temporally holding patient beta-gregg therapy and losartan given hypotension likely from NG self administration, add back once appropriate. #4. Chronic COPD: Not on chronic inhalers, may add if necessary otherwise in the interim PRN albuterol, HOB, IS parameters. #5. Hypertension: BP currently low, likely secondary to recent self NG administration, will temporarily hold patient home losartan and metoprolol therapy, add back once appropriate. #6. Hyperlipidemia: Continue statin, FLP requested. #7. Tobacco Abuse: Encouraged cessation, inpatient consultation per RT, NR if desired. #8. Anxiety and depression/bipolar disorder: We will continue patient home significant psychiatric regimen. #9. DVT prophylaxis: SCDs, Lovenox. Admission Evaluation Time spent evaluating chart, patient history, patient evaluation, care planning and discussion with specialists: 55 minutes. Charges/Coding Visit Charges Inpatient E&M: 89448 Init Hosp L2 06/02/22 0659 <Electronically signed by Carmen Frias MD> Cosigner Signature (if applicable): CC: Dr. Carmen Frias MD; Dr. Solis Cool, DO~ Signed [facility] Work Phone: Hospital Discharge instructions Additional Instructions Your cardiac enzymes were negative twice today. Follow-up with your project control manager, Dr. Lopez as soon as possible. Call the office tomorrow.[facility] Work Phone: Instructions* Name Dates Details Patient Instructions Indication:Non-smoker Start:15-Jul-2020 Instruction Type:Provider Instructions for Treatment How to Access Health Informa tion Online using Patient Portal and 3rd [employer] Apps Indication:Non-smoker Start:15-Jul-2020 Instruction Type:Patient Education Patient Instructions Indication:BMI 26.0-26.9,adult Start:08-Jul-2020 Instruction Type:Provider Instructions for Treatment How to Access Health Informa tion Online using Patient Portal and [employer]rd [employer] Apps Indication:BMI 26.0-26.9,adult Start:08-Jul-2020 Instruction Type:Patient Education Patient Instructions Indication:Non-smoker Start:04-Jul-2020 Instruction Type:Provider Instructions for Treatment How to Access Health Informa tion Online using Patient Portal and [employer]rd [employer] Apps Indication:Non-smoker Start:04-Jul-2020 Instruction Type:Patient Education How to Access Health Informa tion Online using Patient Portal and [employer]rd [employer] Apps Indication:Non-smoker Start:03-Jul-2020 Instruction Type:Patient Education Patient Instructions Indication:Non-smoker Start:03-Jul-2020 Instruction Type:Provider Instructions for Treatment Patient Instructions Indication:Non-smoker Start:01-Jul-2020 Instruction Type:Provider Instructions for Treatment How to Access Health Informa tion Online using Patient Portal and [employer]rd [employer] Apps Indication:Non-smoker Start:01-Jul-2020 Instruction Type:Patient Education Patient Instructions Indication:Non-smoker Start:28-Jun-2020 Instruction Type:Provider Instructions for Treatment How to Access Health Informa tion Online using Patient Portal and [employer]rd [employer] Apps Indication:Non-smoker Start:28-Jun-2020 Instruction Type:Patient Education How to Access Health Informa tion Online using Patient Portal and [employer]rd [employer] Apps Indication:Non-smoker Start:12-Apr-2020 Instruction Type:Patient Education Patient Instructions Indication:Non-smoker Start:12-Apr-2020 Instruction Type:Provider Instructions for Treatment How to access health informa tion online Indication:Non-smoker Start:18-Mar-2020 Instruction Type:Patient Education How to access health informa tion online - Detail Indication:Non-smoker Start:18-Mar-2020 Instruction Type:Patient Education Patient Instructions Indication:Non-smoker Start:18-Mar-2020 Instruction Type:Provider Instructions for Treatment How to access health informa tion online Indication:Non-smoker Start:04-Mar-2020 Instruction Type:Patient Education How to access health informa tion online - Detail Indication:Non-smoker Start:04-Mar-2020 Instruction Type:Patient Education Patient Instructions Indication:Allergic rhinitis Start:04-Mar-2020 Instruction Type:Provider Instructions for Treatment How to access health informa tion online Indication:Non-smoker Start:29-Feb-2020 Instruction Type:Patient Education How to access health informa tion online - Detail Indication:Non-smoker Start:29-Feb-2020 Instruction Type:Patient Education Patient Instructions Indication:Non-smoker Start:29-Feb-2020 Instruction Type:Provider Instructions for Treatment How to access health informa tion online Indication:BMI 24.0-24.9, adult Start:29-Feb-2020 Instruction Type:Patient Education How to access health informa tion online - Detail Indication:BMI 24.0-24.9, adult Start:29-Feb-2020 Instruction Type:Patient Education Patient Instructions Indication:BMI 24.0-24.9, adult Start:29-Feb-2020 Instruction Type:Provider Instructions for Treatment How to access health informa tion online Indication:BMI 25.0-25.9,adult Start:22-Feb-2020 Instruction Type:Patient Education How to access health informa tion online - Detail Indication:BMI 25.0-25.9,adult Start:22-Feb-2020 Instruction Type:Patient Education Patient Instructions Indication:BMI 25.0-25.9,adult Start:22-Feb-2020 Instruction Type:Provider Instructions for Treatment How to access health informa tion online Indication:BMI 25.0-25.9,adult Start:05-Feb-2020 Instruction Type:Patient Education How to access health informa tion online - Detail Indication:BMI 25.0-25.9,adult Start:05-Feb-2020 Instruction Type:Patient Education Patient Instructions Indication:BMI 25.0-25.9,adult Start:05-Feb-2020 Instruction Type:Provider Instructions for Treatment How to access health informa tion online Indication:Non-smoker Start:14-Dec-2019 Instruction Type:Patient Education How to access health informa tion online - Detail Indication:Non-smoker Start:14-Dec-2019 Instruction Type:Patient Education Patient Instructions Indication:Non-smoker Start:14-Dec-2019 Instruction Type:Provider Instructions for Treatment How to access health informa tion online Indication:Non-smoker Start:08-Nov-2019 Instruction Type:Patient Education How to access health informa tion online - Detail Indication:Non-smoker Start:08-Nov-2019 Instruction Type:Patient Education Patient Instructions Indication:Non-smoker Start:08-Nov-2019 Instruction Type:Provider Instructions for Treatment How to access health informa tion online Indication:Non-smoker Start:30-Oct-2019 Instruction Type:Patient Education How to access health informa tion online - Detail Indication:Non-smoker Start:30-Oct-2019 Instruction Type:Patient Education Patient Instructions Indication:Non-smoker Start:30-Oct-2019 Instruction Type:Provider Instructions for Treatment How to access health informa tion online Indication:BMI 25.0-25.9,adult Start:18-Oct-2019 Instruction Type:Patient Education How to access health informa tion online - Detail Indication:BMI 25.0-25.9,adult Start:18-Oct-2019 Instruction Type:Patient Education Patient Instructions Indication:BMI 25.0-25.9,adult Start:18-Oct-2019 Instruction Type:Provider Instructions for Treatment [facility]; [facility] Work Phone: Instructions* Name Dates Details How to Access Health Informa tion Online using Patient Portal and [employer]rd [employer] Apps Indication:Non-smoker Start:18-Sep-2020 Instruction Type:Patient Education Patient Instructions Indication:Non-smoker Start:18-Sep-2020 Instruction Type:Provider Instructions for Treatment Patient Instructions Indication:Non-smoker Start:15-Jul-2020 Instruction Type:Provider Instructions for Treatment How to Access Health Informa tion Online using Patient Portal and [employer]rd [employer] Apps Indication:Non-smoker Start:15-Jul-2020 Instruction Type:Patient Education Patient Instructions Indication:BMI 26.0-26.9,adult Start:08-Jul-2020 Instruction Type:Provider Instructions for Treatment How to Access Health Informa tion Online using Patient Portal and [employer]rd [employer] Apps Indication:BMI 26.0-26.9,adult Start:08-Jul-2020 Instruction Type:Patient Education Patient Instructions Indication:Non-smoker Start:04-Jul-2020 Instruction Type:Provider Instructions for Treatment How to Access Health Informa tion Online using Patient Portal and [employer]rd [employer] Apps Indication:Non-smoker Start:04-Jul-2020 Instruction Type:Patient Education How to Access Health Informa tion Online using Patient Portal and [employer]rd [employer] Apps Indication:Non-smoker Start:03-Jul-2020 Instruction Type:Patient Education Patient Instructions Indication:Non-smoker Start:03-Jul-2020 Instruction Type:Provider Instructions for Treatment Patient Instructions Indication:Non-smoker Start:01-Jul-2020 Instruction Type:Provider Instructions for Treatment How to Access Health Informa tion Online using Patient Portal and [employer]rd [employer] Apps Indication:Non-smoker Start:01-Jul-2020 Instruction Type:Patient Education Patient Instructions Indication:Non-smoker Start:28-Jun-2020 Instruction Type:Provider Instructions for Treatment How to Access Health Informa tion Online using Patient Portal and [employer]rd [employer] Apps Indication:Non-smoker Start:28-Jun-2020 Instruction Type:Patient Education How to Access Health Informa tion Online using Patient Portal and [employer]rd [employer] Apps Indication:Non-smoker Start:12-Apr-2020 Instruction Type:Patient Education Patient Instructions Indication:Non-smoker Start:12-Apr-2020 Instruction Type:Provider Instructions for Treatment How to access health informa tion online Indication:Non-smoker Start:18-Mar-2020 Instruction Type:Patient Education How to access health informa tion online - Detail Indication:Non-smoker Start:18-Mar-2020 Instruction Type:Patient Education Patient Instructions Indication:Non-smoker Start:18-Mar-2020 Instruction Type:Provider Instructions for Treatment How to access health informa tion online Indication:Non-smoker Start:04-Mar-2020 Instruction Type:Patient Education How to access health informa tion online - Detail Indication:Non-smoker Start:04-Mar-2020 Instruction Type:Patient Education Patient Instructions Indication:Allergic rhinitis Start:04-Mar-2020 Instruction Type:Provider Instructions for Treatment How to access health informa tion online Indication:Non-smoker Start:29-Feb-2020 Instruction Type:Patient Education How to access health informa tion online - Detail Indication:Non-smoker Start:29-Feb-2020 Instruction Type:Patient Education Patient Instructions Indication:Non-smoker Start:29-Feb-2020 Instruction Type:Provider Instructions for Treatment How to access health informa tion online Indication:BMI 24.0-24.9, adult Start:29-Feb-2020 Instruction Type:Patient Education How to access health informa tion online - Detail Indication:BMI 24.0-24.9, adult Start:29-Feb-2020 Instruction Type:Patient Education Patient Instructions Indication:BMI 24.0-24.9, adult Start:29-Feb-2020 Instruction Type:Provider Instructions for Treatment How to access health informa tion online Indication:BMI 25.0-25.9,adult Start:22-Feb-2020 Instruction Type:Patient Education How to access health informa tion online - Detail Indication:BMI 25.0-25.9,adult Start:22-Feb-2020 Instruction Type:Patient Education Patient Instructions Indication:BMI 25.0-25.9,adult Start:22-Feb-2020 Instruction Type:Provider Instructions for Treatment How to access health informa tion online Indication:BMI 25.0-25.9,adult Start:05-Feb-2020 Instruction Type:Patient Education How to access health informa tion online - Detail Indication:BMI 25.0-25.9,adult Start:05-Feb-2020 Instruction Type:Patient Education Patient Instructions Indication:BMI 25.0-25.9,adult Start:05-Feb-2020 Instruction Type:Provider Instructions for Treatment How to access health informa tion online Indication:Non-smoker Start:14-Dec-2019 Instruction Type:Patient Education How to access health informa tion online - Detail Indication:Non-smoker Start:14-Dec-2019 Instruction Type:Patient Education Patient Instructions Indication:Non-smoker Start:14-Dec-2019 Instruction Type:Provider Instructions for Treatment How to access health informa tion online Indication:Non-smoker Start:08-Nov-2019 Instruction Type:Patient Education How to access health informa tion online - Detail Indication:Non-smoker Start:08-Nov-2019 Instruction Type:Patient Education Patient Instructions Indication:Non-smoker Start:08-Nov-2019 Instruction Type:Provider Instructions for Treatment How to access health informa tion online Indication:Non-smoker Start:30-Oct-2019 Instruction Type:Patient Education How to access health informa tion online - Detail Indication:Non-smoker Start:30-Oct-2019 Instruction Type:Patient Education Patient Instructions Indication:Non-smoker Start:30-Oct-2019 Instruction Type:Provider Instructions for Treatment How to access health informa tion online Indication:BMI 25.0-25.9,adult Start:18-Oct-2019 Instruction Type:Patient Education How to access health informa tion online - Detail Indication:BMI 25.0-25.9,adult Start:18-Oct-2019 Instruction Type:Patient Education Patient Instructions Indication:BMI 25.0-25.9,adult Start:18-Oct-2019 Instruction Type:Provider Instructions for Treatment [facility]; [facility] Work Phone: Instructions* Name Dates Details How to Access Health Informa tion Online using Patient Portal and [employer]rd [employer] Apps Indication:Non-smoker Start:18-Sep-2020 Instruction Type:Patient Education Patient Instructions Indication:Non-smoker Start:18-Sep-2020 Instruction Type:Provider Instructions for Treatment Patient Instructions Indication:Non-smoker Start:15-Jul-2020 Instruction Type:Provider Instructions for Treatment How to Access Health Informa tion Online using Patient Portal and [employer]rd [employer] Apps Indication:Non-smoker Start:15-Jul-2020 Instruction Type:Patient Education Patient Instructions Indication:BMI 26.0-26.9,adult Start:08-Jul-2020 Instruction Type:Provider Instructions for Treatment How to Access Health Informa tion Online using Patient Portal and [employer]rd [employer] Apps Indication:BMI 26.0-26.9,adult Start:08-Jul-2020 Instruction Type:Patient Education Patient Instructions Indication:Non-smoker Start:04-Jul-2020 Instruction Type:Provider Instructions for Treatment How to Access Health Informa tion Online using Patient Portal and [employer]rd [employer] Apps Indication:Non-smoker Start:04-Jul-2020 Instruction Type:Patient Education How to Access Health Informa tion Online using Patient Portal and [employer]rd [employer] Apps Indication:Non-smoker Start:03-Jul-2020 Instruction Type:Patient Education Patient Instructions Indication:Non-smoker Start:03-Jul-2020 Instruction Type:Provider Instructions for Treatment Patient Instructions Indication:Non-smoker Start:01-Jul-2020 Instruction Type:Provider Instructions for Treatment How to Access Health Informa tion Online using Patient Portal and [employer]rd [employer] Apps Indication:Non-smoker Start:01-Jul-2020 Instruction Type:Patient Education Patient Instructions Indication:Non-smoker Start:28-Jun-2020 Instruction Type:Provider Instructions for Treatment How to Access Health Informa tion Online using Patient Portal and [employer]rd [employer] Apps Indication:Non-smoker Start:28-Jun-2020 Instruction Type:Patient Education How to Access Health Informa tion Online using Patient Portal and [employer]rd [employer] Apps Indication:Non-smoker Start:12-Apr-2020 Instruction Type:Patient Education Patient Instructions Indication:Non-smoker Start:12-Apr-2020 Instruction Type:Provider Instructions for Treatment How to access health informa tion online Indication:Non-smoker Start:18-Mar-2020 Instruction Type:Patient Education How to access health informa tion online - Detail Indication:Non-smoker Start:18-Mar-2020 Instruction Type:Patient Education Patient Instructions Indication:Non-smoker Start:18-Mar-2020 Instruction Type:Provider Instructions for Treatment How to access health informa tion online Indication:Non-smoker Start:04-Mar-2020 Instruction Type:Patient Education How to access health informa tion online - Detail Indication:Non-smoker Start:04-Mar-2020 Instruction Type:Patient Education Patient Instructions Indication:Allergic rhinitis Start:04-Mar-2020 Instruction Type:Provider Instructions for Treatment How to access health informa tion online Indication:Non-smoker Start:29-Feb-2020 Instruction Type:Patient Education How to access health informa tion online - Detail Indication:Non-smoker Start:29-Feb-2020 Instruction Type:Patient Education Patient Instructions Indication:Non-smoker Start:29-Feb-2020 Instruction Type:Provider Instructions for Treatment How to access health informa tion online Indication:BMI 24.0-24.9, adult Start:29-Feb-2020 Instruction Type:Patient Education How to access health informa tion online - Detail Indication:BMI 24.0-24.9, adult Start:29-Feb-2020 Instruction Type:Patient Education Patient Instructions Indication:BMI 24.0-24.9, adult Start:29-Feb-2020 Instruction Type:Provider Instructions for Treatment How to access health informa tion online Indication:BMI 25.0-25.9,adult Start:22-Feb-2020 Instruction Type:Patient Education How to access health informa tion online - Detail Indication:BMI 25.0-25.9,adult Start:22-Feb-2020 Instruction Type:Patient Education Patient Instructions Indication:BMI 25.0-25.9,adult Start:22-Feb-2020 Instruction Type:Provider Instructions for Treatment How to access health informa tion online Indication:BMI 25.0-25.9,adult Start:05-Feb-2020 Instruction Type:Patient Education How to access health informa tion online - Detail Indication:BMI 25.0-25.9,adult Start:05-Feb-2020 Instruction Type:Patient Education Patient Instructions Indication:BMI 25.0-25.9,adult Start:05-Feb-2020 Instruction Type:Provider Instructions for Treatment How to access health informa tion online Indication:Non-smoker Start:14-Dec-2019 Instruction Type:Patient Education How to access health informa tion online - Detail Indication:Non-smoker Start:14-Dec-2019 Instruction Type:Patient Education Patient Instructions Indication:Non-smoker Start:14-Dec-2019 Instruction Type:Provider Instructions for Treatment How to access health informa tion online Indication:Non-smoker Start:08-Nov-2019 Instruction Type:Patient Education How to access health informa tion online - Detail Indication:Non-smoker Start:08-Nov-2019 Instruction Type:Patient Education Patient Instructions Indication:Non-smoker Start:08-Nov-2019 Instruction Type:Provider Instructions for Treatment How to access health informa tion online Indication:Non-smoker Start:30-Oct-2019 Instruction Type:Patient Education How to access health informa tion online - Detail Indication:Non-smoker Start:30-Oct-2019 Instruction Type:Patient Education Patient Instructions Indication:Non-smoker Start:30-Oct-2019 Instruction Type:Provider Instructions for Treatment How to access health informa tion online Indication:BMI 25.0-25.9,adult Start:18-Oct-2019 Instruction Type:Patient Education How to access health informa tion online - Detail Indication:BMI 25.0-25.9,adult Start:18-Oct-2019 Instruction Type:Patient Education Patient Instructions Indication:BMI 25.0-25.9,adult Start:18-Oct-2019 Instruction Type:Provider Instructions for Treatment [facility]; [facility] Work Phone: Instructions* Name Dates Details Patient Instructions Indication:Non-smoker Start:14-Mar-2021 Instruction Type:Provider Instructions for Treatment How to Access Health Informa tion Online using Patient Portal and [employer]rd [employer] Apps Indication:Non-smoker Start:14-Mar-2021 Instruction Type:Patient Education How to Access Health Informa tion Online using Patient Portal and [employer]rd [employer] Apps Indication:Non-smoker Start:18-Sep-2020 Instruction Type:Patient Education Patient Instructions Indication:Non-smoker Start:18-Sep-2020 Instruction Type:Provider Instructions for Treatment Patient Instructions Indication:Non-smoker Start:15-Jul-2020 Instruction Type:Provider Instructions for Treatment How to Access Health Informa tion Online using Patient Portal and [employer]rd [employer] Apps Indication:Non-smoker Start:15-Jul-2020 Instruction Type:Patient Education Patient Instructions Indication:BMI 26.0-26.9,adult Start:08-Jul-2020 Instruction Type:Provider Instructions for Treatment How to Access Health Informa tion Online using Patient Portal and [employer]rd [employer] Apps Indication:BMI 26.0-26.9,adult Start:08-Jul-2020 Instruction Type:Patient Education Patient Instructions Indication:Non-smoker Start:04-Jul-2020 Instruction Type:Provider Instructions for Treatment How to Access Health Informa tion Online using Patient Portal and [employer]rd [employer] Apps Indication:Non-smoker Start:04-Jul-2020 Instruction Type:Patient Education How to Access Health Informa tion Online using Patient Portal and [employer]rd [employer] Apps Indication:Non-smoker Start:03-Jul-2020 Instruction Type:Patient Education Patient Instructions Indication:Non-smoker Start:03-Jul-2020 Instruction Type:Provider Instructions for Treatment Patient Instructions Indication:Non-smoker Start:01-Jul-2020 Instruction Type:Provider Instructions for Treatment How to Access Health Informa tion Online using Patient Portal and [employer]rd [employer] Apps Indication:Non-smoker Start:01-Jul-2020 Instruction Type:Patient Education Patient Instructions Indication:Non-smoker Start:28-Jun-2020 Instruction Type:Provider Instructions for Treatment How to Access Health Informa tion Online using Patient Portal and [employer]rd [employer] Apps Indication:Non-smoker Start:28-Jun-2020 Instruction Type:Patient Education How to Access Health Informa tion Online using Patient Portal and [employer]rd [employer] Apps Indication:Non-smoker Start:12-Apr-2020 Instruction Type:Patient Education Patient Instructions Indication:Non-smoker Start:12-Apr-2020 Instruction Type:Provider Instructions for Treatment How to access health informa tion online Indication:Non-smoker Start:18-Mar-2020 Instruction Type:Patient Education How to access health informa tion online - Detail Indication:Non-smoker Start:18-Mar-2020 Instruction Type:Patient Education Patient Instructions Indication:Non-smoker Start:18-Mar-2020 Instruction Type:Provider Instructions for Treatment How to access health informa tion online Indication:Non-smoker Start:04-Mar-2020 Instruction Type:Patient Education How to access health informa tion online - Detail Indication:Non-smoker Start:04-Mar-2020 Instruction Type:Patient Education Patient Instructions Indication:Allergic rhinitis Start:04-Mar-2020 Instruction Type:Provider Instructions for Treatment How to access health informa tion online Indication:Non-smoker Start:29-Feb-2020 Instruction Type:Patient Education How to access health informa tion online - Detail Indication:Non-smoker Start:29-Feb-2020 Instruction Type:Patient Education Patient Instructions Indication:Non-smoker Start:29-Feb-2020 Instruction Type:Provider Instructions for Treatment How to access health informa tion online Indication:BMI 24.0-24.9, adult Start:29-Feb-2020 Instruction Type:Patient Education How to access health informa tion online - Detail Indication:BMI 24.0-24.9, adult Start:29-Feb-2020 Instruction Type:Patient Education Patient Instructions Indication:BMI 24.0-24.9, adult Start:29-Feb-2020 Instruction Type:Provider Instructions for Treatment How to access health informa tion online Indication:BMI 25.0-25.9,adult Start:22-Feb-2020 Instruction Type:Patient Education How to access health informa tion online - Detail Indication:BMI 25.0-25.9,adult Start:22-Feb-2020 Instruction Type:Patient Education Patient Instructions Indication:BMI 25.0-25.9,adult Start:22-Feb-2020 Instruction Type:Provider Instructions for Treatment How to access health informa tion online Indication:BMI 25.0-25.9,adult Start:05-Feb-2020 Instruction Type:Patient Education How to access health informa tion online - Detail Indication:BMI 25.0-25.9,adult Start:05-Feb-2020 Instruction Type:Patient Education Patient Instructions Indication:BMI 25.0-25.9,adult Start:05-Feb-2020 Instruction Type:Provider Instructions for Treatment How to access health informa tion online Indication:Non-smoker Start:14-Dec-2019 Instruction Type:Patient Education How to access health informa tion online - Detail Indication:Non-smoker Start:14-Dec-2019 Instruction Type:Patient Education Patient Instructions Indication:Non-smoker Start:14-Dec-2019 Instruction Type:Provider Instructions for Treatment How to access health informa tion online Indication:Non-smoker Start:08-Nov-2019 Instruction Type:Patient Education How to access health informa tion online - Detail Indication:Non-smoker Start:08-Nov-2019 Instruction Type:Patient Education Patient Instructions Indication:Non-smoker Start:08-Nov-2019 Instruction Type:Provider Instructions for Treatment How to access health informa tion online Indication:Non-smoker Start:30-Oct-2019 Instruction Type:Patient Education How to access health informa tion online - Detail Indication:Non-smoker Start:30-Oct-2019 Instruction Type:Patient Education Patient Instructions Indication:Non-smoker Start:30-Oct-2019 Instruction Type:Provider Instructions for Treatment How to access health informa tion online Indication:BMI 25.0-25.9,adult Start:18-Oct-2019 Instruction Type:Patient Education How to access health informa tion online - Detail Indication:BMI 25.0-25.9,adult Start:18-Oct-2019 Instruction Type:Patient Education Patient Instructions Indication:BMI 25.0-25.9,adult Start:18-Oct-2019 Instruction Type:Provider Instructions for Treatment [facility]; [facility] Work Phone: Instructions* Name Dates Details Patient Instructions Indication:Non-smoker Start:19-Sep-2021 Instruction Type:Provider Instructions for Treatment How to Access Health Informa tion Online using Patient Portal and [employer]rd [employer] Apps Indication:Non-smoker Start:19-Sep-2021 Instruction Type:Patient Education Patient Instructions Indication:Non-smoker Start:14-Mar-2021 Instruction Type:Provider Instructions for Treatment How to Access Health Informa tion Online using Patient Portal and [employer]rd [employer] Apps Indication:Non-smoker Start:14-Mar-2021 Instruction Type:Patient Education How to Access Health Informa tion Online using Patient Portal and [employer]rd [employer] Apps Indication:Non-smoker Start:18-Sep-2020 Instruction Type:Patient Education Patient Instructions Indication:Non-smoker Start:18-Sep-2020 Instruction Type:Provider Instructions for Treatment Patient Instructions Indication:Non-smoker Start:15-Jul-2020 Instruction Type:Provider Instructions for Treatment How to Access Health Informa tion Online using Patient Portal and [employer]rd [employer] Apps Indication:Non-smoker Start:15-Jul-2020 Instruction Type:Patient Education Patient Instructions Indication:BMI 26.0-26.9,adult Start:08-Jul-2020 Instruction Type:Provider Instructions for Treatment How to Access Health Informa tion Online using Patient Portal and [employer]rd [employer] Apps Indication:BMI 26.0-26.9,adult Start:08-Jul-2020 Instruction Type:Patient Education Patient Instructions Indication:Non-smoker Start:04-Jul-2020 Instruction Type:Provider Instructions for Treatment How to Access Health Informa tion Online using Patient Portal and [employer]rd [employer] Apps Indication:Non-smoker Start:04-Jul-2020 Instruction Type:Patient Education How to Access Health Informa tion Online using Patient Portal and [employer] Apps Indication:Non-smoker Start:03-Jul-2020 Instruction Type:Patient Education Patient Instructions Indication:Non-smoker Start:03-Jul-2020 Instruction Type:Provider Instructions for Treatment Patient Instructions Indication:Non-smoker Start:01-Jul-2020 Instruction Type:Provider Instructions for Treatment How to Access Health Informa tion Online using Patient Portal and [employer]rd [employer] Apps Indication:Non-smoker Start:01-Jul-2020 Instruction Type:Patient Education Patient Instructions Indication:Non-smoker Start:28-Jun-2020 Instruction Type:Provider Instructions for Treatment How to Access Health Informa tion Online using Patient Portal and [employer]rd [employer] Apps Indication:Non-smoker Start:28-Jun-2020 Instruction Type:Patient Education How to Access Health Informa tion Online using Patient Portal and [employer]rd [employer] Apps Indication:Non-smoker Start:12-Apr-2020 Instruction Type:Patient Education Patient Instructions Indication:Non-smoker Start:12-Apr-2020 Instruction Type:Provider Instructions for Treatment How to access health informa tion online Indication:Non-smoker Start:18-Mar-2020 Instruction Type:Patient Education How to access health informa tion online - Detail Indication:Non-smoker Start:18-Mar-2020 Instruction Type:Patient Education Patient Instructions Indication:Non-smoker Start:18-Mar-2020 Instruction Type:Provider Instructions for Treatment How to access health informa tion online Indication:Non-smoker Start:04-Mar-2020 Instruction Type:Patient Education How to access health informa tion online - Detail Indication:Non-smoker Start:04-Mar-2020 Instruction Type:Patient Education Patient Instructions Indication:Allergic rhinitis Start:04-Mar-2020 Instruction Type:Provider Instructions for Treatment How to access health informa tion online Indication:Non-smoker Start:29-Feb-2020 Instruction Type:Patient Education How to access health informa tion online - Detail Indication:Non-smoker Start:29-Feb-2020 Instruction Type:Patient Education Patient Instructions Indication:Non-smoker Start:29-Feb-2020 Instruction Type:Provider Instructions for Treatment How to access health informa tion online Indication:BMI 24.0-24.9, adult Start:29-Feb-2020 Instruction Type:Patient Education How to access health informa tion online - Detail Indication:BMI 24.0-24.9, adult Start:29-Feb-2020 Instruction Type:Patient Education Patient Instructions Indication:BMI 24.0-24.9, adult Start:29-Feb-2020 Instruction Type:Provider Instructions for Treatment How to access health informa tion online Indication:BMI 25.0-25.9,adult Start:22-Feb-2020 Instruction Type:Patient Education How to access health informa tion online - Detail Indication:BMI 25.0-25.9,adult Start:22-Feb-2020 Instruction Type:Patient Education Patient Instructions Indication:BMI 25.0-25.9,adult Start:22-Feb-2020 Instruction Type:Provider Instructions for Treatment How to access health informa tion online Indication:BMI 25.0-25.9,adult Start:05-Feb-2020 Instruction Type:Patient Education How to access health informa tion online - Detail Indication:BMI 25.0-25.9,adult Start:05-Feb-2020 Instruction Type:Patient Education Patient Instructions Indication:BMI 25.0-25.9,adult Start:05-Feb-2020 Instruction Type:Provider Instructions for Treatment How to access health informa tion online Indication:Non-smoker Start:14-Dec-2019 Instruction Type:Patient Education How to access health informa tion online - Detail Indication:Non-smoker Start:14-Dec-2019 Instruction Type:Patient Education Patient Instructions Indication:Non-smoker Start:14-Dec-2019 Instruction Type:Provider Instructions for Treatment How to access health informa tion online Indication:Non-smoker Start:08-Nov-2019 Instruction Type:Patient Education How to access health informa tion online - Detail Indication:Non-smoker Start:08-Nov-2019 Instruction Type:Patient Education Patient Instructions Indication:Non-smoker Start:08-Nov-2019 Instruction Type:Provider Instructions for Treatment How to access health informa tion online Indication:Non-smoker Start:30-Oct-2019 Instruction Type:Patient Education How to access health informa tion online - Detail Indication:Non-smoker Start:30-Oct-2019 Instruction Type:Patient Education Patient Instructions Indication:Non-smoker Start:30-Oct-2019 Instruction Type:Provider Instructions for Treatment How to access health informa tion online Indication:BMI 25.0-25.9,adult Start:18-Oct-2019 Instruction Type:Patient Education How to access health informa tion online - Detail Indication:BMI 25.0-25.9,adult Start:18-Oct-2019 Instruction Type:Patient Education Patient Instructions Indication:BMI 25.0-25.9,adult Start:18-Oct-2019 Instruction Type:Provider Instructions for Treatment [facility]; [facility] Work Phone: Instructions* Name Dates Details Patient Instructions Indication:BMI 26.0-26.9,adult Start:10-Oct-2021 Instruction Type:Provider Instructions for Treatment How to Access Health Informa tion Online using Patient Portal and [employer]rd [employer] Apps Indication:BMI 26.0-26.9,adult Start:10-Oct-2021 Instruction Type:Patient Education Patient Instructions Indication:Non-smoker Start:19-Sep-2021 Instruction Type:Provider Instructions for Treatment How to Access Health Informa tion Online using Patient Portal and [employer]rd [employer] Apps Indication:Non-smoker Start:19-Sep-2021 Instruction Type:Patient Education Patient Instructions Indication:Non-smoker Start:14-Mar-2021 Instruction Type:Provider Instructions for Treatment How to Access Health Informa tion Online using Patient Portal and [employer]rd [employer] Apps Indication:Non-smoker Start:14-Mar-2021 Instruction Type:Patient Education How to Access Health Informa tion Online using Patient Portal and [employer]rd [employer] Apps Indication:Non-smoker Start:18-Sep-2020 Instruction Type:Patient Education Patient Instructions Indication:Non-smoker Start:18-Sep-2020 Instruction Type:Provider Instructions for Treatment Patient Instructions Indication:Non-smoker Start:15-Jul-2020 Instruction Type:Provider Instructions for Treatment How to Access Health Informa tion Online using Patient Portal and [employer]rd [employer] Apps Indication:Non-smoker Start:15-Jul-2020 Instruction Type:Patient Education Patient Instructions Indication:BMI 26.0-26.9,adult Start:08-Jul-2020 Instruction Type:Provider Instructions for Treatment How to Access Health Informa tion Online using Patient Portal and [employer]rd [employer] Apps Indication:BMI 26.0-26.9,adult Start:08-Jul-2020 Instruction Type:Patient Education Patient Instructions Indication:Non-smoker Start:04-Jul-2020 Instruction Type:Provider Instructions for Treatment How to Access Health Informa tion Online using Patient Portal and [employer]rd [employer] Apps Indication:Non-smoker Start:04-Jul-2020 Instruction Type:Patient Education How to Access Health Informa tion Online using Patient Portal and [employer]rd [employer] Apps Indication:Non-smoker Start:03-Jul-2020 Instruction Type:Patient Education Patient Instructions Indication:Non-smoker Start:03-Jul-2020 Instruction Type:Provider Instructions for Treatment Patient Instructions Indication:Non-smoker Start:01-Jul-2020 Instruction Type:Provider Instructions for Treatment How to Access Health Informa tion Online using Patient Portal and [employer]rd [employer] Apps Indication:Non-smoker Start:01-Jul-2020 Instruction Type:Patient Education Patient Instructions Indication:Non-smoker Start:28-Jun-2020 Instruction Type:Provider Instructions for Treatment How to Access Health Informa tion Online using Patient Portal and [employer]rd [employer] Apps Indication:Non-smoker Start:28-Jun-2020 Instruction Type:Patient Education How to Access Health Informa tion Online using Patient Portal and [employer]rd [employer] Apps Indication:Non-smoker Start:12-Apr-2020 Instruction Type:Patient Education Patient Instructions Indication:Non-smoker Start:12-Apr-2020 Instruction Type:Provider Instructions for Treatment How to access health informa tion online Indication:Non-smoker Start:18-Mar-2020 Instruction Type:Patient Education How to access health informa tion online - Detail Indication:Non-smoker Start:18-Mar-2020 Instruction Type:Patient Education Patient Instructions Indication:Non-smoker Start:18-Mar-2020 Instruction Type:Provider Instructions for Treatment How to access health informa tion online Indication:Non-smoker Start:04-Mar-2020 Instruction Type:Patient Education How to access health informa tion online - Detail Indication:Non-smoker Start:04-Mar-2020 Instruction Type:Patient Education Patient Instructions Indication:Allergic rhinitis Start:04-Mar-2020 Instruction Type:Provider Instructions for Treatment How to access health informa tion online Indication:Non-smoker Start:29-Feb-2020 Instruction Type:Patient Education How to access health informa tion online - Detail Indication:Non-smoker Start:29-Feb-2020 Instruction Type:Patient Education Patient Instructions Indication:Non-smoker Start:29-Feb-2020 Instruction Type:Provider Instructions for Treatment How to access health informa tion online Indication:BMI 24.0-24.9, adult Start:29-Feb-2020 Instruction Type:Patient Education How to access health informa tion online - Detail Indication:BMI 24.0-24.9, adult Start:29-Feb-2020 Instruction Type:Patient Education Patient Instructions Indication:BMI 24.0-24.9, adult Start:29-Feb-2020 Instruction Type:Provider Instructions for Treatment How to access health informa tion online Indication:BMI 25.0-25.9,adult Start:22-Feb-2020 Instruction Type:Patient Education How to access health informa tion online - Detail Indication:BMI 25.0-25.9,adult Start:22-Feb-2020 Instruction Type:Patient Education Patient Instructions Indication:BMI 25.0-25.9,adult Start:22-Feb-2020 Instruction Type:Provider Instructions for Treatment How to access health informa tion online Indication:BMI 25.0-25.9,adult Start:05-Feb-2020 Instruction Type:Patient Education How to access health informa tion online - Detail Indication:BMI 25.0-25.9,adult Start:05-Feb-2020 Instruction Type:Patient Education Patient Instructions Indication:BMI 25.0-25.9,adult Start:05-Feb-2020 Instruction Type:Provider Instructions for Treatment How to access health informa tion online Indication:Non-smoker Start:14-Dec-2019 Instruction Type:Patient Education How to access health informa tion online - Detail Indication:Non-smoker Start:14-Dec-2019 Instruction Type:Patient Education Patient Instructions Indication:Non-smoker Start:14-Dec-2019 Instruction Type:Provider Instructions for Treatment How to access health informa tion online Indication:Non-smoker Start:08-Nov-2019 Instruction Type:Patient Education How to access health informa tion online - Detail Indication:Non-smoker Start:08-Nov-2019 Instruction Type:Patient Education Patient Instructions Indication:Non-smoker Start:08-Nov-2019 Instruction Type:Provider Instructions for Treatment How to access health informa tion online Indication:Non-smoker Start:30-Oct-2019 Instruction Type:Patient Education How to access health informa tion online - Detail Indication:Non-smoker Start:30-Oct-2019 Instruction Type:Patient Education Patient Instructions Indication:Non-smoker Start:30-Oct-2019 Instruction Type:Provider Instructions for Treatment How to access health informa tion online Indication:BMI 25.0-25.9,adult Start:18-Oct-2019 Instruction Type:Patient Education How to access health informa tion online - Detail Indication:BMI 25.0-25.9,adult Start:18-Oct-2019 Instruction Type:Patient Education Patient Instructions Indication:BMI 25.0-25.9,adult Start:18-Oct-2019 Instruction Type:Provider Instructions for Treatment [facility]; [facility] Work Phone: Instructions* Name Dates Details Patient Instructions Indication:BMI 26.0-26.9,adult Start:10-Oct-2021 Instruction Type:Provider Instructions for Treatment How to Access Health Informa tion Online using Patient Portal and [employer]rd [employer] Apps Indication:BMI 26.0-26.9,adult Start:10-Oct-2021 Instruction Type:Patient Education Patient Instructions Indication:Non-smoker Start:19-Sep-2021 Instruction Type:Provider Instructions for Treatment How to Access Health Informa tion Online using Patient Portal and [employer]rd [employer] Apps Indication:Non-smoker Start:19-Sep-2021 Instruction Type:Patient Education Patient Instructions Indication:Non-smoker Start:14-Mar-2021 Instruction Type:Provider Instructions for Treatment How to Access Health Informa tion Online using Patient Portal and [employer]rd [employer] Apps Indication:Non-smoker Start:14-Mar-2021 Instruction Type:Patient Education How to Access Health Informa tion Online using Patient Portal and [employer]rd [employer] Apps Indication:Non-smoker Start:18-Sep-2020 Instruction Type:Patient Education Patient Instructions Indication:Non-smoker Start:18-Sep-2020 Instruction Type:Provider Instructions for Treatment Patient Instructions Indication:Non-smoker Start:15-Jul-2020 Instruction Type:Provider Instructions for Treatment How to Access Health Informa tion Online using Patient Portal and [employer]rd [employer] Apps Indication:Non-smoker Start:15-Jul-2020 Instruction Type:Patient Education Patient Instructions Indication:BMI 26.0-26.9,adult Start:08-Jul-2020 Instruction Type:Provider Instructions for Treatment How to Access Health Informa tion Online using Patient Portal and [employer]rd [employer] Apps Indication:BMI 26.0-26.9,adult Start:08-Jul-2020 Instruction Type:Patient Education Patient Instructions Indication:Non-smoker Start:04-Jul-2020 Instruction Type:Provider Instructions for Treatment How to Access Health Informa tion Online using Patient Portal and [employer]rd [employer] Apps Indication:Non-smoker Start:04-Jul-2020 Instruction Type:Patient Education How to Access Health Informa tion Online using Patient Portal and [employer]rd [employer] Apps Indication:Non-smoker Start:03-Jul-2020 Instruction Type:Patient Education Patient Instructions Indication:Non-smoker Start:03-Jul-2020 Instruction Type:Provider Instructions for Treatment Patient Instructions Indication:Non-smoker Start:01-Jul-2020 Instruction Type:Provider Instructions for Treatment How to Access Health Informa tion Online using Patient Portal and [employer]rd [employer] Apps Indication:Non-smoker Start:01-Jul-2020 Instruction Type:Patient Education Patient Instructions Indication:Non-smoker Start:28-Jun-2020 Instruction Type:Provider Instructions for Treatment How to Access Health Informa tion Online using Patient Portal and [employer]rd [employer] Apps Indication:Non-smoker Start:28-Jun-2020 Instruction Type:Patient Education How to Access Health Informa tion Online using Patient Portal and [employer]rd [employer] Apps Indication:Non-smoker Start:12-Apr-2020 Instruction Type:Patient Education Patient Instructions Indication:Non-smoker Start:12-Apr-2020 Instruction Type:Provider Instructions for Treatment How to access health informa tion online Indication:Non-smoker Start:18-Mar-2020 Instruction Type:Patient Education How to access health informa tion online - Detail Indication:Non-smoker Start:18-Mar-2020 Instruction Type:Patient Education Patient Instructions Indication:Non-smoker Start:18-Mar-2020 Instruction Type:Provider Instructions for Treatment How to access health informa tion online Indication:Non-smoker Start:04-Mar-2020 Instruction Type:Patient Education How to access health informa tion online - Detail Indication:Non-smoker Start:04-Mar-2020 Instruction Type:Patient Education Patient Instructions Indication:Allergic rhinitis Start:04-Mar-2020 Instruction Type:Provider Instructions for Treatment How to access health informa tion online Indication:Non-smoker Start:29-Feb-2020 Instruction Type:Patient Education How to access health informa tion online - Detail Indication:Non-smoker Start:29-Feb-2020 Instruction Type:Patient Education Patient Instructions Indication:Non-smoker Start:29-Feb-2020 Instruction Type:Provider Instructions for Treatment How to access health informa tion online Indication:BMI 24.0-24.9, adult Start:29-Feb-2020 Instruction Type:Patient Education How to access health informa tion online - Detail Indication:BMI 24.0-24.9, adult Start:29-Feb-2020 Instruction Type:Patient Education Patient Instructions Indication:BMI 24.0-24.9, adult Start:29-Feb-2020 Instruction Type:Provider Instructions for Treatment How to access health informa tion online Indication:BMI 25.0-25.9,adult Start:22-Feb-2020 Instruction Type:Patient Education How to access health informa tion online - Detail Indication:BMI 25.0-25.9,adult Start:22-Feb-2020 Instruction Type:Patient Education Patient Instructions Indication:BMI 25.0-25.9,adult Start:22-Feb-2020 Instruction Type:Provider Instructions for Treatment How to access health informa tion online Indication:BMI 25.0-25.9,adult Start:05-Feb-2020 Instruction Type:Patient Education How to access health informa tion online - Detail Indication:BMI 25.0-25.9,adult Start:05-Feb-2020 Instruction Type:Patient Education Patient Instructions Indication:BMI 25.0-25.9,adult Start:05-Feb-2020 Instruction Type:Provider Instructions for Treatment How to access health informa tion online Indication:Non-smoker Start:14-Dec-2019 Instruction Type:Patient Education How to access health informa tion online - Detail Indication:Non-smoker Start:14-Dec-2019 Instruction Type:Patient Education Patient Instructions Indication:Non-smoker Start:14-Dec-2019 Instruction Type:Provider Instructions for Treatment How to access health informa tion online Indication:Non-smoker Start:08-Nov-2019 Instruction Type:Patient Education How to access health informa tion online - Detail Indication:Non-smoker Start:08-Nov-2019 Instruction Type:Patient Education Patient Instructions Indication:Non-smoker Start:08-Nov-2019 Instruction Type:Provider Instructions for Treatment How to access health informa tion online Indication:Non-smoker Start:30-Oct-2019 Instruction Type:Patient Education How to access health informa tion online - Detail Indication:Non-smoker Start:30-Oct-2019 Instruction Type:Patient Education Patient Instructions Indication:Non-smoker Start:30-Oct-2019 Instruction Type:Provider Instructions for Treatment How to access health informa tion online Indication:BMI 25.0-25.9,adult Start:18-Oct-2019 Instruction Type:Patient Education How to access health informa tion online - Detail Indication:BMI 25.0-25.9,adult Start:18-Oct-2019 Instruction Type:Patient Education Patient Instructions Indication:BMI 25.0-25.9,adult Start:18-Oct-2019 Instruction Type:Provider Instructions for Treatment [facility]; [facility] Work Phone: Instructions* Name Dates Details Patient Instructions Indication:BMI 26.0-26.9,adult Start:10-Oct-2021 Instruction Type:Provider Instructions for Treatment How to Access Health Informa tion Online using Patient Portal and [employer]rd [employer] Apps Indication:BMI 26.0-26.9,adult Start:10-Oct-2021 Instruction Type:Patient Education Patient Instructions Indication:Non-smoker Start:19-Sep-2021 Instruction Type:Provider Instructions for Treatment How to Access Health Informa tion Online using Patient Portal and [employer]rd [employer] Apps Indication:Non-smoker Start:19-Sep-2021 Instruction Type:Patient Education Patient Instructions Indication:Non-smoker Start:14-Mar-2021 Instruction Type:Provider Instructions for Treatment How to Access Health Informa tion Online using Patient Portal and [employer]rd [employer] Apps Indication:Non-smoker Start:14-Mar-2021 Instruction Type:Patient Education How to Access Health Informa tion Online using Patient Portal and [employer]rd [employer] Apps Indication:Non-smoker Start:18-Sep-2020 Instruction Type:Patient Education Patient Instructions Indication:Non-smoker Start:18-Sep-2020 Instruction Type:Provider Instructions for Treatment Patient Instructions Indication:Non-smoker Start:15-Jul-2020 Instruction Type:Provider Instructions for Treatment How to Access Health Informa tion Online using Patient Portal and [employer]rd [employer] Apps Indication:Non-smoker Start:15-Jul-2020 Instruction Type:Patient Education Patient Instructions Indication:BMI 26.0-26.9,adult Start:08-Jul-2020 Instruction Type:Provider Instructions for Treatment How to Access Health Informa tion Online using Patient Portal and [employer]rd [employer] Apps Indication:BMI 26.0-26.9,adult Start:08-Jul-2020 Instruction Type:Patient Education Patient Instructions Indication:Non-smoker Start:04-Jul-2020 Instruction Type:Provider Instructions for Treatment How to Access Health Informa tion Online using Patient Portal and [employer]rd [employer] Apps Indication:Non-smoker Start:04-Jul-2020 Instruction Type:Patient Education How to Access Health Informa tion Online using Patient Portal and [employer]rd [employer] Apps Indication:Non-smoker Start:03-Jul-2020 Instruction Type:Patient Education Patient Instructions Indication:Non-smoker Start:03-Jul-2020 Instruction Type:Provider Instructions for Treatment Patient Instructions Indication:Non-smoker Start:01-Jul-2020 Instruction Type:Provider Instructions for Treatment How to Access Health Informa tion Online using Patient Portal and [employer]rd [employer] Apps Indication:Non-smoker Start:01-Jul-2020 Instruction Type:Patient Education Patient Instructions Indication:Non-smoker Start:28-Jun-2020 Instruction Type:Provider Instructions for Treatment How to Access Health Informa tion Online using Patient Portal and [employer]rd [employer] Apps Indication:Non-smoker Start:28-Jun-2020 Instruction Type:Patient Education How to Access Health Informa tion Online using Patient Portal and [employer]rd [employer] Apps Indication:Non-smoker Start:12-Apr-2020 Instruction Type:Patient Education Patient Instructions Indication:Non-smoker Start:12-Apr-2020 Instruction Type:Provider Instructions for Treatment How to access health informa tion online Indication:Non-smoker Start:18-Mar-2020 Instruction Type:Patient Education How to access health informa tion online - Detail Indication:Non-smoker Start:18-Mar-2020 Instruction Type:Patient Education Patient Instructions Indication:Non-smoker Start:18-Mar-2020 Instruction Type:Provider Instructions for Treatment How to access health informa tion online Indication:Non-smoker Start:04-Mar-2020 Instruction Type:Patient Education How to access health informa tion online - Detail Indication:Non-smoker Start:04-Mar-2020 Instruction Type:Patient Education Patient Instructions Indication:Allergic rhinitis Start:04-Mar-2020 Instruction Type:Provider Instructions for Treatment How to access health informa tion online Indication:Non-smoker Start:29-Feb-2020 Instruction Type:Patient Education How to access health informa tion online - Detail Indication:Non-smoker Start:29-Feb-2020 Instruction Type:Patient Education Patient Instructions Indication:Non-smoker Start:29-Feb-2020 Instruction Type:Provider Instructions for Treatment How to access health informa tion online Indication:BMI 24.0-24.9, adult Start:29-Feb-2020 Instruction Type:Patient Education How to access health informa tion online - Detail Indication:BMI 24.0-24.9, adult Start:29-Feb-2020 Instruction Type:Patient Education Patient Instructions Indication:BMI 24.0-24.9, adult Start:29-Feb-2020 Instruction Type:Provider Instructions for Treatment How to access health informa tion online Indication:BMI 25.0-25.9,adult Start:22-Feb-2020 Instruction Type:Patient Education How to access health informa tion online - Detail Indication:BMI 25.0-25.9,adult Start:22-Feb-2020 Instruction Type:Patient Education Patient Instructions Indication:BMI 25.0-25.9,adult Start:22-Feb-2020 Instruction Type:Provider Instructions for Treatment How to access health informa tion online Indication:BMI 25.0-25.9,adult Start:05-Feb-2020 Instruction Type:Patient Education How to access health informa tion online - Detail Indication:BMI 25.0-25.9,adult Start:05-Feb-2020 Instruction Type:Patient Education Patient Instructions Indication:BMI 25.0-25.9,adult Start:05-Feb-2020 Instruction Type:Provider Instructions for Treatment How to access health informa tion online Indication:Non-smoker Start:14-Dec-2019 Instruction Type:Patient Education How to access health informa tion online - Detail Indication:Non-smoker Start:14-Dec-2019 Instruction Type:Patient Education Patient Instructions Indication:Non-smoker Start:14-Dec-2019 Instruction Type:Provider Instructions for Treatment How to access health informa tion online Indication:Non-smoker Start:08-Nov-2019 Instruction Type:Patient Education How to access health informa tion online - Detail Indication:Non-smoker Start:08-Nov-2019 Instruction Type:Patient Education Patient Instructions Indication:Non-smoker Start:08-Nov-2019 Instruction Type:Provider Instructions for Treatment How to access health informa tion online Indication:Non-smoker Start:30-Oct-2019 Instruction Type:Patient Education How to access health informa tion online - Detail Indication:Non-smoker Start:30-Oct-2019 Instruction Type:Patient Education Patient Instructions Indication:Non-smoker Start:30-Oct-2019 Instruction Type:Provider Instructions for Treatment How to access health informa tion online Indication:BMI 25.0-25.9,adult Start:18-Oct-2019 Instruction Type:Patient Education How to access health informa tion online - Detail Indication:BMI 25.0-25.9,adult Start:18-Oct-2019 Instruction Type:Patient Education Patient Instructions Indication:BMI 25.0-25.9,adult Start:18-Oct-2019 Instruction Type:Provider Instructions for Treatment [facility]; [facility] Work Phone: Instructions* Name Dates Details Patient Instructions Indication:BMI 26.0-26.9,adult Start:13-Mar-2022 Instruction Type:Provider Instructions for Treatment How to Access Health Informa tion Online using Patient Portal and [employer]rd [employer] Apps Indication:BMI 26.0-26.9,adult Start:13-Mar-2022 Instruction Type:Patient Education Patient Instructions Indication:BMI 26.0-26.9,adult Start:10-Oct-2021 Instruction Type:Provider Instructions for Treatment How to Access Health Informa tion Online using Patient Portal and [employer]rd [employer] Apps Indication:BMI 26.0-26.9,adult Start:10-Oct-2021 Instruction Type:Patient Education Patient Instructions Indication:Non-smoker Start:19-Sep-2021 Instruction Type:Provider Instructions for Treatment How to Access Health Informa tion Online using Patient Portal and [employer]rd [employer] Apps Indication:Non-smoker Start:19-Sep-2021 Instruction Type:Patient Education Patient Instructions Indication:Non-smoker Start:14-Mar-2021 Instruction Type:Provider Instructions for Treatment How to Access Health Informa tion Online using Patient Portal and [employer]rd [employer] Apps Indication:Non-smoker Start:14-Mar-2021 Instruction Type:Patient Education How to Access Health Informa tion Online using Patient Portal and [employer] Apps Indication:Non-smoker Start:18-Sep-2020 Instruction Type:Patient Education Patient Instructions Indication:Non-smoker Start:18-Sep-2020 Instruction Type:Provider Instructions for Treatment Patient Instructions Indication:Non-smoker Start:15-Jul-2020 Instruction Type:Provider Instructions for Treatment How to Access Health Informa tion Online using Patient Portal and [employer]rd [employer] Apps Indication:Non-smoker Start:15-Jul-2020 Instruction Type:Patient Education Patient Instructions Indication:BMI 26.0-26.9,adult Start:08-Jul-2020 Instruction Type:Provider Instructions for Treatment How to Access Health Informa tion Online using Patient Portal and [employer]rd [employer] Apps Indication:BMI 26.0-26.9,adult Start:08-Jul-2020 Instruction Type:Patient Education Patient Instructions Indication:Non-smoker Start:04-Jul-2020 Instruction Type:Provider Instructions for Treatment How to Access Health Informa tion Online using Patient Portal and [employer] Apps Indication:Non-smoker Start:04-Jul-2020 Instruction Type:Patient Education How to Access Health Informa tion Online using Patient Portal and [employer] Apps Indication:Non-smoker Start:03-Jul-2020 Instruction Type:Patient Education Patient Instructions Indication:Non-smoker Start:03-Jul-2020 Instruction Type:Provider Instructions for Treatment Patient Instructions Indication:Non-smoker Start:01-Jul-2020 Instruction Type:Provider Instructions for Treatment How to Access Health Informa tion Online using Patient Portal and [employer]rd [employer] Apps Indication:Non-smoker Start:01-Jul-2020 Instruction Type:Patient Education Patient Instructions Indication:Non-smoker Start:28-Jun-2020 Instruction Type:Provider Instructions for Treatment How to Access Health Informa tion Online using Patient Portal and [employer]rd [employer] Apps Indication:Non-smoker Start:28-Jun-2020 Instruction Type:Patient Education How to Access Health Informa tion Online using Patient Portal and [employer] Apps Indication:Non-smoker Start:12-Apr-2020 Instruction Type:Patient Education Patient Instructions Indication:Non-smoker Start:12-Apr-2020 Instruction Type:Provider Instructions for Treatment How to access health informa tion online Indication:Non-smoker Start:18-Mar-2020 Instruction Type:Patient Education How to access health informa tion online - Detail Indication:Non-smoker Start:18-Mar-2020 Instruction Type:Patient Education Patient Instructions Indication:Non-smoker Start:18-Mar-2020 Instruction Type:Provider Instructions for Treatment How to access health informa tion online Indication:Non-smoker Start:04-Mar-2020 Instruction Type:Patient Education How to access health informa tion online - Detail Indication:Non-smoker Start:04-Mar-2020 Instruction Type:Patient Education Patient Instructions Indication:Allergic rhinitis Start:04-Mar-2020 Instruction Type:Provider Instructions for Treatment How to access health informa tion online Indication:Non-smoker Start:29-Feb-2020 Instruction Type:Patient Education How to access health informa tion online - Detail Indication:Non-smoker Start:29-Feb-2020 Instruction Type:Patient Education Patient Instructions Indication:Non-smoker Start:29-Feb-2020 Instruction Type:Provider Instructions for Treatment How to access health informa tion online Indication:BMI 24.0-24.9, adult Start:29-Feb-2020 Instruction Type:Patient Education How to access health informa tion online - Detail Indication:BMI 24.0-24.9, adult Start:29-Feb-2020 Instruction Type:Patient Education Patient Instructions Indication:BMI 24.0-24.9, adult Start:29-Feb-2020 Instruction Type:Provider Instructions for Treatment How to access health informa tion online Indication:BMI 25.0-25.9,adult Start:22-Feb-2020 Instruction Type:Patient Education How to access health informa tion online - Detail Indication:BMI 25.0-25.9,adult Start:22-Feb-2020 Instruction Type:Patient Education Patient Instructions Indication:BMI 25.0-25.9,adult Start:22-Feb-2020 Instruction Type:Provider Instructions for Treatment How to access health informa tion online Indication:BMI 25.0-25.9,adult Start:05-Feb-2020 Instruction Type:Patient Education How to access health informa tion online - Detail Indication:BMI 25.0-25.9,adult Start:05-Feb-2020 Instruction Type:Patient Education Patient Instructions Indication:BMI 25.0-25.9,adult Start:05-Feb-2020 Instruction Type:Provider Instructions for Treatment How to access health informa tion online Indication:Non-smoker Start:14-Dec-2019 Instruction Type:Patient Education How to access health informa tion online - Detail Indication:Non-smoker Start:14-Dec-2019 Instruction Type:Patient Education Patient Instructions Indication:Non-smoker Start:14-Dec-2019 Instruction Type:Provider Instructions for Treatment How to access health informa tion online Indication:Non-smoker Start:08-Nov-2019 Instruction Type:Patient Education How to access health informa tion online - Detail Indication:Non-smoker Start:08-Nov-2019 Instruction Type:Patient Education Patient Instructions Indication:Non-smoker Start:08-Nov-2019 Instruction Type:Provider Instructions for Treatment How to access health informa tion online Indication:Non-smoker Start:30-Oct-2019 Instruction Type:Patient Education How to access health informa tion online - Detail Indication:Non-smoker Start:30-Oct-2019 Instruction Type:Patient Education Patient Instructions Indication:Non-smoker Start:30-Oct-2019 Instruction Type:Provider Instructions for Treatment How to access health informa tion online Indication:BMI 25.0-25.9,adult Start:18-Oct-2019 Instruction Type:Patient Education How to access health informa tion online - Detail Indication:BMI 25.0-25.9,adult Start:18-Oct-2019 Instruction Type:Patient Education Patient Instructions Indication:BMI 25.0-25.9,adult Start:18-Oct-2019 Instruction Type:Provider Instructions for Treatment [facility]; [facility] Work Phone: Instructions* Name Dates Details Patient Instructions Indication:Non-smoker Start:02-Apr-2022 Instruction Type:Provider Instructions for Treatment How to Access Health Informa tion Online using Patient Portal and [employer]rd [employer] Apps Indication:Non-smoker Start:02-Apr-2022 Instruction Type:Patient Education Patient Instructions Indication:BMI 26.0-26.9,adult Start:13-Mar-2022 Instruction Type:Provider Instructions for Treatment How to Access Health Informa tion Online using Patient Portal and [employer]rd [employer] Apps Indication:BMI 26.0-26.9,adult Start:13-Mar-2022 Instruction Type:Patient Education Patient Instructions Indication:BMI 26.0-26.9,adult Start:10-Oct-2021 Instruction Type:Provider Instructions for Treatment How to Access Health Informa tion Online using Patient Portal and [employer]rd [employer] Apps Indication:BMI 26.0-26.9,adult Start:10-Oct-2021 Instruction Type:Patient Education Patient Instructions Indication:Non-smoker Start:19-Sep-2021 Instruction Type:Provider Instructions for Treatment How to Access Health Informa tion Online using Patient Portal and [employer]rd [employer] Apps Indication:Non-smoker Start:19-Sep-2021 Instruction Type:Patient Education Patient Instructions Indication:Non-smoker Start:14-Mar-2021 Instruction Type:Provider Instructions for Treatment How to Access Health Informa tion Online using Patient Portal and [employer]rd [employer] Apps Indication:Non-smoker Start:14-Mar-2021 Instruction Type:Patient Education How to Access Health Informa tion Online using Patient Portal and [employer]rd [employer] Apps Indication:Non-smoker Start:18-Sep-2020 Instruction Type:Patient Education Patient Instructions Indication:Non-smoker Start:18-Sep-2020 Instruction Type:Provider Instructions for Treatment Patient Instructions Indication:Non-smoker Start:15-Jul-2020 Instruction Type:Provider Instructions for Treatment How to Access Health Informa tion Online using Patient Portal and [employer]rd [employer] Apps Indication:Non-smoker Start:15-Jul-2020 Instruction Type:Patient Education Patient Instructions Indication:BMI 26.0-26.9,adult Start:08-Jul-2020 Instruction Type:Provider Instructions for Treatment How to Access Health Informa tion Online using Patient Portal and [employer]rd [employer] Apps Indication:BMI 26.0-26.9,adult Start:08-Jul-2020 Instruction Type:Patient Education Patient Instructions Indication:Non-smoker Start:04-Jul-2020 Instruction Type:Provider Instructions for Treatment How to Access Health Informa tion Online using Patient Portal and [employer]rd [employer] Apps Indication:Non-smoker Start:04-Jul-2020 Instruction Type:Patient Education How to Access Health Informa tion Online using Patient Portal and [employer]rd [employer] Apps Indication:Non-smoker Start:03-Jul-2020 Instruction Type:Patient Education Patient Instructions Indication:Non-smoker Start:03-Jul-2020 Instruction Type:Provider Instructions for Treatment Patient Instructions Indication:Non-smoker Start:01-Jul-2020 Instruction Type:Provider Instructions for Treatment How to Access Health Informa tion Online using Patient Portal and [employer]rd [employer] Apps Indication:Non-smoker Start:01-Jul-2020 Instruction Type:Patient Education Patient Instructions Indication:Non-smoker Start:28-Jun-2020 Instruction Type:Provider Instructions for Treatment How to Access Health Informa tion Online using Patient Portal and [employer]rd [employer] Apps Indication:Non-smoker Start:28-Jun-2020 Instruction Type:Patient Education How to Access Health Informa tion Online using Patient Portal and [employer]rd [employer] Apps Indication:Non-smoker Start:12-Apr-2020 Instruction Type:Patient Education Patient Instructions Indication:Non-smoker Start:12-Apr-2020 Instruction Type:Provider Instructions for Treatment How to access health informa tion online Indication:Non-smoker Start:18-Mar-2020 Instruction Type:Patient Education How to access health informa tion online - Detail Indication:Non-smoker Start:18-Mar-2020 Instruction Type:Patient Education Patient Instructions Indication:Non-smoker Start:18-Mar-2020 Instruction Type:Provider Instructions for Treatment How to access health informa tion online Indication:Non-smoker Start:04-Mar-2020 Instruction Type:Patient Education How to access health informa tion online - Detail Indication:Non-smoker Start:04-Mar-2020 Instruction Type:Patient Education Patient Instructions Indication:Allergic rhinitis Start:04-Mar-2020 Instruction Type:Provider Instructions for Treatment How to access health informa tion online Indication:Non-smoker Start:29-Feb-2020 Instruction Type:Patient Education How to access health informa tion online - Detail Indication:Non-smoker Start:29-Feb-2020 Instruction Type:Patient Education Patient Instructions Indication:Non-smoker Start:29-Feb-2020 Instruction Type:Provider Instructions for Treatment How to access health informa tion online Indication:BMI 24.0-24.9, adult Start:29-Feb-2020 Instruction Type:Patient Education How to access health informa tion online - Detail Indication:BMI 24.0-24.9, adult Start:29-Feb-2020 Instruction Type:Patient Education Patient Instructions Indication:BMI 24.0-24.9, adult Start:29-Feb-2020 Instruction Type:Provider Instructions for Treatment How to access health informa tion online Indication:BMI 25.0-25.9,adult Start:22-Feb-2020 Instruction Type:Patient Education How to access health informa tion online - Detail Indication:BMI 25.0-25.9,adult Start:22-Feb-2020 Instruction Type:Patient Education Patient Instructions Indication:BMI 25.0-25.9,adult Start:22-Feb-2020 Instruction Type:Provider Instructions for Treatment How to access health informa tion online Indication:BMI 25.0-25.9,adult Start:05-Feb-2020 Instruction Type:Patient Education How to access health informa tion online - Detail Indication:BMI 25.0-25.9,adult Start:05-Feb-2020 Instruction Type:Patient Education Patient Instructions Indication:BMI 25.0-25.9,adult Start:05-Feb-2020 Instruction Type:Provider Instructions for Treatment How to access health informa tion online Indication:Non-smoker Start:14-Dec-2019 Instruction Type:Patient Education How to access health informa tion online - Detail Indication:Non-smoker Start:14-Dec-2019 Instruction Type:Patient Education Patient Instructions Indication:Non-smoker Start:14-Dec-2019 Instruction Type:Provider Instructions for Treatment How to access health informa tion online Indication:Non-smoker Start:08-Nov-2019 Instruction Type:Patient Education How to access health informa tion online - Detail Indication:Non-smoker Start:08-Nov-2019 Instruction Type:Patient Education Patient Instructions Indication:Non-smoker Start:08-Nov-2019 Instruction Type:Provider Instructions for Treatment How to access health informa tion online Indication:Non-smoker Start:30-Oct-2019 Instruction Type:Patient Education How to access health informa tion online - Detail Indication:Non-smoker Start:30-Oct-2019 Instruction Type:Patient Education Patient Instructions Indication:Non-smoker Start:30-Oct-2019 Instruction Type:Provider Instructions for Treatment How to access health informa tion online Indication:BMI 25.0-25.9,adult Start:18-Oct-2019 Instruction Type:Patient Education How to access health informa tion online - Detail Indication:BMI 25.0-25.9,adult Start:18-Oct-2019 Instruction Type:Patient Education Patient Instructions Indication:BMI 25.0-25.9,adult Start:18-Oct-2019 Instruction Type:Provider Instructions for Treatment [facility]; [facility] Work Phone: Instructions* Name Dates Details Patient Instructions Indication:Non-smoker Start:27-May-2022 Instruction Type:Provider Instructions for Treatment How to Access Health Informa tion Online using Patient Portal and [employer]rd [employer] Apps Indication:Non-smoker Start:27-May-2022 Instruction Type:Patient Education Patient Instructions Indication:Non-smoker Start:02-Apr-2022 Instruction Type:Provider Instructions for Treatment How to Access Health Informa tion Online using Patient Portal and [employer]rd [employer] Apps Indication:Non-smoker Start:02-Apr-2022 Instruction Type:Patient Education Patient Instructions Indication:BMI 26.0-26.9,adult Start:13-Mar-2022 Instruction Type:Provider Instructions for Treatment How to Access Health Informa tion Online using Patient Portal and [employer]rd [employer] Apps Indication:BMI 26.0-26.9,adult Start:13-Mar-2022 Instruction Type:Patient Education Patient Instructions Indication:BMI 26.0-26.9,adult Start:10-Oct-2021 Instruction Type:Provider Instructions for Treatment How to Access Health Informa tion Online using Patient Portal and [employer]rd [employer] Apps Indication:BMI 26.0-26.9,adult Start:10-Oct-2021 Instruction Type:Patient Education Patient Instructions Indication:Non-smoker Start:19-Sep-2021 Instruction Type:Provider Instructions for Treatment How to Access Health Informa tion Online using Patient Portal and [employer]rd [employer] Apps Indication:Non-smoker Start:19-Sep-2021 Instruction Type:Patient Education Patient Instructions Indication:Non-smoker Start:14-Mar-2021 Instruction Type:Provider Instructions for Treatment How to Access Health Informa tion Online using Patient Portal and [employer]rd [employer] Apps Indication:Non-smoker Start:14-Mar-2021 Instruction Type:Patient Education How to Access Health Informa tion Online using Patient Portal and [employer]rd [employer] Apps Indication:Non-smoker Start:18-Sep-2020 Instruction Type:Patient Education Patient Instructions Indication:Non-smoker Start:18-Sep-2020 Instruction Type:Provider Instructions for Treatment Patient Instructions Indication:Non-smoker Start:15-Jul-2020 Instruction Type:Provider Instructions for Treatment How to Access Health Informa tion Online using Patient Portal and [employer]rd [employer] Apps Indication:Non-smoker Start:15-Jul-2020 Instruction Type:Patient Education Patient Instructions Indication:BMI 26.0-26.9,adult Start:08-Jul-2020 Instruction Type:Provider Instructions for Treatment How to Access Health Informa tion Online using Patient Portal and [employer]rd [employer] Apps Indication:BMI 26.0-26.9,adult Start:08-Jul-2020 Instruction Type:Patient Education Patient Instructions Indication:Non-smoker Start:04-Jul-2020 Instruction Type:Provider Instructions for Treatment How to Access Health Informa tion Online using Patient Portal and [employer]rd [employer] Apps Indication:Non-smoker Start:04-Jul-2020 Instruction Type:Patient Education How to Access Health Informa tion Online using Patient Portal and [employer]rd [employer] Apps Indication:Non-smoker Start:03-Jul-2020 Instruction Type:Patient Education Patient Instructions Indication:Non-smoker Start:03-Jul-2020 Instruction Type:Provider Instructions for Treatment Patient Instructions Indication:Non-smoker Start:01-Jul-2020 Instruction Type:Provider Instructions for Treatment How to Access Health Informa tion Online using Patient Portal and [employer]rd [employer] Apps Indication:Non-smoker Start:01-Jul-2020 Instruction Type:Patient Education Patient Instructions Indication:Non-smoker Start:28-Jun-2020 Instruction Type:Provider Instructions for Treatment How to Access Health Informa tion Online using Patient Portal and [employer]rd [employer] Apps Indication:Non-smoker Start:28-Jun-2020 Instruction Type:Patient Education How to Access Health Informa tion Online using Patient Portal and [employer]rd [employer] Apps Indication:Non-smoker Start:12-Apr-2020 Instruction Type:Patient Education Patient Instructions Indication:Non-smoker Start:12-Apr-2020 Instruction Type:Provider Instructions for Treatment How to access health informa tion online Indication:Non-smoker Start:18-Mar-2020 Instruction Type:Patient Education How to access health informa tion online - Detail Indication:Non-smoker Start:18-Mar-2020 Instruction Type:Patient Education Patient Instructions Indication:Non-smoker Start:18-Mar-2020 Instruction Type:Provider Instructions for Treatment How to access health informa tion online Indication:Non-smoker Start:04-Mar-2020 Instruction Type:Patient Education How to access health informa tion online - Detail Indication:Non-smoker Start:04-Mar-2020 Instruction Type:Patient Education Patient Instructions Indication:Allergic rhinitis Start:04-Mar-2020 Instruction Type:Provider Instructions for Treatment How to access health informa tion online Indication:Non-smoker Start:29-Feb-2020 Instruction Type:Patient Education How to access health informa tion online - Detail Indication:Non-smoker Start:29-Feb-2020 Instruction Type:Patient Education Patient Instructions Indication:Non-smoker Start:29-Feb-2020 Instruction Type:Provider Instructions for Treatment How to access health informa tion online Indication:BMI 24.0-24.9, adult Start:29-Feb-2020 Instruction Type:Patient Education How to access health informa tion online - Detail Indication:BMI 24.0-24.9, adult Start:29-Feb-2020 Instruction Type:Patient Education Patient Instructions Indication:BMI 24.0-24.9, adult Start:29-Feb-2020 Instruction Type:Provider Instructions for Treatment How to access health informa tion online Indication:BMI 25.0-25.9,adult Start:22-Feb-2020 Instruction Type:Patient Education How to access health informa tion online - Detail Indication:BMI 25.0-25.9,adult Start:22-Feb-2020 Instruction Type:Patient Education Patient Instructions Indication:BMI 25.0-25.9,adult Start:22-Feb-2020 Instruction Type:Provider Instructions for Treatment How to access health informa tion online Indication:BMI 25.0-25.9,adult Start:05-Feb-2020 Instruction Type:Patient Education How to access health informa tion online - Detail Indication:BMI 25.0-25.9,adult Start:05-Feb-2020 Instruction Type:Patient Education Patient Instructions Indication:BMI 25.0-25.9,adult Start:05-Feb-2020 Instruction Type:Provider Instructions for Treatment How to access health informa tion online Indication:Non-smoker Start:14-Dec-2019 Instruction Type:Patient Education How to access health informa tion online - Detail Indication:Non-smoker Start:14-Dec-2019 Instruction Type:Patient Education Patient Instructions Indication:Non-smoker Start:14-Dec-2019 Instruction Type:Provider Instructions for Treatment How to access health informa tion online Indication:Non-smoker Start:08-Nov-2019 Instruction Type:Patient Education How to access health informa tion online - Detail Indication:Non-smoker Start:08-Nov-2019 Instruction Type:Patient Education Patient Instructions Indication:Non-smoker Start:08-Nov-2019 Instruction Type:Provider Instructions for Treatment How to access health informa tion online Indication:Non-smoker Start:30-Oct-2019 Instruction Type:Patient Education How to access health informa tion online - Detail Indication:Non-smoker Start:30-Oct-2019 Instruction Type:Patient Education Patient Instructions Indication:Non-smoker Start:30-Oct-2019 Instruction Type:Provider Instructions for Treatment How to access health informa tion online Indication:BMI 25.0-25.9,adult Start:18-Oct-2019 Instruction Type:Patient Education How to access health informa tion online - Detail Indication:BMI 25.0-25.9,adult Start:18-Oct-2019 Instruction Type:Patient Education Patient Instructions Indication:BMI 25.0-25.9,adult Start:18-Oct-2019 Instruction Type:Provider Instructions for Treatment [facility]; [facility] Work Phone: Instructions* Name Dates Details Patient Instructions Indication:Non-smoker Start:27-May-2022 Instruction Type:Provider Instructions for Treatment How to Access Health Informa tion Online using Patient Portal and [employer]rd [employer] Apps Indication:Non-smoker Start:27-May-2022 Instruction Type:Patient Education Patient Instructions Indication:Non-smoker Start:02-Apr-2022 Instruction Type:Provider Instructions for Treatment How to Access Health Informa tion Online using Patient Portal and [employer]rd [employer] Apps Indication:Non-smoker Start:02-Apr-2022 Instruction Type:Patient Education Patient Instructions Indication:BMI 26.0-26.9,adult Start:13-Mar-2022 Instruction Type:Provider Instructions for Treatment How to Access Health Informa tion Online using Patient Portal and [employer]rd [employer] Apps Indication:BMI 26.0-26.9,adult Start:13-Mar-2022 Instruction Type:Patient Education Patient Instructions Indication:BMI 26.0-26.9,adult Start:10-Oct-2021 Instruction Type:Provider Instructions for Treatment How to Access Health Informa tion Online using Patient Portal and [employer]rd [employer] Apps Indication:BMI 26.0-26.9,adult Start:10-Oct-2021 Instruction Type:Patient Education Patient Instructions Indication:Non-smoker Start:19-Sep-2021 Instruction Type:Provider Instructions for Treatment How to Access Health Informa tion Online using Patient Portal and [employer]rd [employer] Apps Indication:Non-smoker Start:19-Sep-2021 Instruction Type:Patient Education Patient Instructions Indication:Non-smoker Start:14-Mar-2021 Instruction Type:Provider Instructions for Treatment How to Access Health Informa tion Online using Patient Portal and [employer] Apps Indication:Non-smoker Start:14-Mar-2021 Instruction Type:Patient Education How to Access Health Informa tion Online using Patient Portal and [employer] Apps Indication:Non-smoker Start:18-Sep-2020 Instruction Type:Patient Education Patient Instructions Indication:Non-smoker Start:18-Sep-2020 Instruction Type:Provider Instructions for Treatment Patient Instructions Indication:Non-smoker Start:15-Jul-2020 Instruction Type:Provider Instructions for Treatment How to Access Health Informa tion Online using Patient Portal and [employer]rd [employer] Apps Indication:Non-smoker Start:15-Jul-2020 Instruction Type:Patient Education Patient Instructions Indication:BMI 26.0-26.9,adult Start:08-Jul-2020 Instruction Type:Provider Instructions for Treatment How to Access Health Informa tion Online using Patient Portal and [employer]rd [employer] Apps Indication:BMI 26.0-26.9,adult Start:08-Jul-2020 Instruction Type:Patient Education Patient Instructions Indication:Non-smoker Start:04-Jul-2020 Instruction Type:Provider Instructions for Treatment How to Access Health Informa tion Online using Patient Portal and [employer]rd [employer] Apps Indication:Non-smoker Start:04-Jul-2020 Instruction Type:Patient Education How to Access Health Informa tion Online using Patient Portal and [employer] Apps Indication:Non-smoker Start:03-Jul-2020 Instruction Type:Patient Education Patient Instructions Indication:Non-smoker Start:03-Jul-2020 Instruction Type:Provider Instructions for Treatment Patient Instructions Indication:Non-smoker Start:01-Jul-2020 Instruction Type:Provider Instructions for Treatment How to Access Health Informa tion Online using Patient Portal and [employer]rd [employer] Apps Indication:Non-smoker Start:01-Jul-2020 Instruction Type:Patient Education Patient Instructions Indication:Non-smoker Start:28-Jun-2020 Instruction Type:Provider Instructions for Treatment How to Access Health Informa tion Online using Patient Portal and [employer]rd [employer] Apps Indication:Non-smoker Start:28-Jun-2020 Instruction Type:Patient Education How to Access Health Informa tion Online using Patient Portal and [employer] Apps Indication:Non-smoker Start:12-Apr-2020 Instruction Type:Patient Education Patient Instructions Indication:Non-smoker Start:12-Apr-2020 Instruction Type:Provider Instructions for Treatment How to access health informa tion online Indication:Non-smoker Start:18-Mar-2020 Instruction Type:Patient Education How to access health informa tion online - Detail Indication:Non-smoker Start:18-Mar-2020 Instruction Type:Patient Education Patient Instructions Indication:Non-smoker Start:18-Mar-2020 Instruction Type:Provider Instructions for Treatment How to access health informa tion online Indication:Non-smoker Start:04-Mar-2020 Instruction Type:Patient Education How to access health informa tion online - Detail Indication:Non-smoker Start:04-Mar-2020 Instruction Type:Patient Education Patient Instructions Indication:Allergic rhinitis Start:04-Mar-2020 Instruction Type:Provider Instructions for Treatment How to access health informa tion online Indication:Non-smoker Start:29-Feb-2020 Instruction Type:Patient Education How to access health informa tion online - Detail Indication:Non-smoker Start:29-Feb-2020 Instruction Type:Patient Education Patient Instructions Indication:Non-smoker Start:29-Feb-2020 Instruction Type:Provider Instructions for Treatment How to access health informa tion online Indication:BMI 24.0-24.9, adult Start:29-Feb-2020 Instruction Type:Patient Education How to access health informa tion online - Detail Indication:BMI 24.0-24.9, adult Start:29-Feb-2020 Instruction Type:Patient Education Patient Instructions Indication:BMI 24.0-24.9, adult Start:29-Feb-2020 Instruction Type:Provider Instructions for Treatment How to access health informa tion online Indication:BMI 25.0-25.9,adult Start:22-Feb-2020 Instruction Type:Patient Education How to access health informa tion online - Detail Indication:BMI 25.0-25.9,adult Start:22-Feb-2020 Instruction Type:Patient Education Patient Instructions Indication:BMI 25.0-25.9,adult Start:22-Feb-2020 Instruction Type:Provider Instructions for Treatment How to access health informa tion online Indication:BMI 25.0-25.9,adult Start:05-Feb-2020 Instruction Type:Patient Education How to access health informa tion online - Detail Indication:BMI 25.0-25.9,adult Start:05-Feb-2020 Instruction Type:Patient Education Patient Instructions Indication:BMI 25.0-25.9,adult Start:05-Feb-2020 Instruction Type:Provider Instructions for Treatment How to access health informa tion online Indication:Non-smoker Start:14-Dec-2019 Instruction Type:Patient Education How to access health informa tion online - Detail Indication:Non-smoker Start:14-Dec-2019 Instruction Type:Patient Education Patient Instructions Indication:Non-smoker Start:14-Dec-2019 Instruction Type:Provider Instructions for Treatment How to access health informa tion online Indication:Non-smoker Start:08-Nov-2019 Instruction Type:Patient Education How to access health informa tion online - Detail Indication:Non-smoker Start:08-Nov-2019 Instruction Type:Patient Education Patient Instructions Indication:Non-smoker Start:08-Nov-2019 Instruction Type:Provider Instructions for Treatment How to access health informa tion online Indication:Non-smoker Start:30-Oct-2019 Instruction Type:Patient Education How to access health informa tion online - Detail Indication:Non-smoker Start:30-Oct-2019 Instruction Type:Patient Education Patient Instructions Indication:Non-smoker Start:30-Oct-2019 Instruction Type:Provider Instructions for Treatment How to access health informa tion online Indication:BMI 25.0-25.9,adult Start:18-Oct-2019 Instruction Type:Patient Education How to access health informa tion online - Detail Indication:BMI 25.0-25.9,adult Start:18-Oct-2019 Instruction Type:Patient Education Patient Instructions Indication:BMI 25.0-25.9,adult Start:18-Oct-2019 Instruction Type:Provider Instructions for Treatment [facility]; [facility] Work Phone: Instructions* Name Dates Details Patient Instructions Indication:Non-smoker Start:27-May-2022 Instruction Type:Provider Instructions for Treatment How to Access Health Informa tion Online using Patient Portal and [employer]rd [employer] Apps Indication:Non-smoker Start:27-May-2022 Instruction Type:Patient Education Patient Instructions Indication:Non-smoker Start:02-Apr-2022 Instruction Type:Provider Instructions for Treatment How to Access Health Informa tion Online using Patient Portal and [employer]rd [employer] Apps Indication:Non-smoker Start:02-Apr-2022 Instruction Type:Patient Education Patient Instructions Indication:BMI 26.0-26.9,adult Start:13-Mar-2022 Instruction Type:Provider Instructions for Treatment How to Access Health Informa tion Online using Patient Portal and [employer]rd [employer] Apps Indication:BMI 26.0-26.9,adult Start:13-Mar-2022 Instruction Type:Patient Education Patient Instructions Indication:BMI 26.0-26.9,adult Start:10-Oct-2021 Instruction Type:Provider Instructions for Treatment How to Access Health Informa tion Online using Patient Portal and [employer]rd [employer] Apps Indication:BMI 26.0-26.9,adult Start:10-Oct-2021 Instruction Type:Patient Education Patient Instructions Indication:Non-smoker Start:19-Sep-2021 Instruction Type:Provider Instructions for Treatment How to Access Health Informa tion Online using Patient Portal and [employer]rd [employer] Apps Indication:Non-smoker Start:19-Sep-2021 Instruction Type:Patient Education Patient Instructions Indication:Non-smoker Start:14-Mar-2021 Instruction Type:Provider Instructions for Treatment How to Access Health Informa tion Online using Patient Portal and [employer]rd [employer] Apps Indication:Non-smoker Start:14-Mar-2021 Instruction Type:Patient Education How to Access Health Informa tion Online using Patient Portal and [employer]rd [employer] Apps Indication:Non-smoker Start:18-Sep-2020 Instruction Type:Patient Education Patient Instructions Indication:Non-smoker Start:18-Sep-2020 Instruction Type:Provider Instructions for Treatment Patient Instructions Indication:Non-smoker Start:15-Jul-2020 Instruction Type:Provider Instructions for Treatment How to Access Health Informa tion Online using Patient Portal and [employer]rd [employer] Apps Indication:Non-smoker Start:15-Jul-2020 Instruction Type:Patient Education Patient Instructions Indication:BMI 26.0-26.9,adult Start:08-Jul-2020 Instruction Type:Provider Instructions for Treatment How to Access Health Informa tion Online using Patient Portal and [employer]rd [employer] Apps Indication:BMI 26.0-26.9,adult Start:08-Jul-2020 Instruction Type:Patient Education Patient Instructions Indication:Non-smoker Start:04-Jul-2020 Instruction Type:Provider Instructions for Treatment How to Access Health Informa tion Online using Patient Portal and [employer]rd [employer] Apps Indication:Non-smoker Start:04-Jul-2020 Instruction Type:Patient Education How to Access Health Informa tion Online using Patient Portal and [employer]rd [employer] Apps Indication:Non-smoker Start:03-Jul-2020 Instruction Type:Patient Education Patient Instructions Indication:Non-smoker Start:03-Jul-2020 Instruction Type:Provider Instructions for Treatment Patient Instructions Indication:Non-smoker Start:01-Jul-2020 Instruction Type:Provider Instructions for Treatment How to Access Health Informa tion Online using Patient Portal and [employer]rd [employer] Apps Indication:Non-smoker Start:01-Jul-2020 Instruction Type:Patient Education Patient Instructions Indication:Non-smoker Start:28-Jun-2020 Instruction Type:Provider Instructions for Treatment How to Access Health Informa tion Online using Patient Portal and [employer]rd [employer] Apps Indication:Non-smoker Start:28-Jun-2020 Instruction Type:Patient Education How to Access Health Informa tion Online using Patient Portal and [employer]rd [employer] Apps Indication:Non-smoker Start:12-Apr-2020 Instruction Type:Patient Education Patient Instructions Indication:Non-smoker Start:12-Apr-2020 Instruction Type:Provider Instructions for Treatment How to access health informa tion online Indication:Non-smoker Start:18-Mar-2020 Instruction Type:Patient Education How to access health informa tion online - Detail Indication:Non-smoker Start:18-Mar-2020 Instruction Type:Patient Education Patient Instructions Indication:Non-smoker Start:18-Mar-2020 Instruction Type:Provider Instructions for Treatment How to access health informa tion online Indication:Non-smoker Start:04-Mar-2020 Instruction Type:Patient Education How to access health informa tion online - Detail Indication:Non-smoker Start:04-Mar-2020 Instruction Type:Patient Education Patient Instructions Indication:Allergic rhinitis Start:04-Mar-2020 Instruction Type:Provider Instructions for Treatment How to access health informa tion online Indication:Non-smoker Start:29-Feb-2020 Instruction Type:Patient Education How to access health informa tion online - Detail Indication:Non-smoker Start:29-Feb-2020 Instruction Type:Patient Education Patient Instructions Indication:Non-smoker Start:29-Feb-2020 Instruction Type:Provider Instructions for Treatment How to access health informa tion online Indication:BMI 24.0-24.9, adult Start:29-Feb-2020 Instruction Type:Patient Education How to access health informa tion online - Detail Indication:BMI 24.0-24.9, adult Start:29-Feb-2020 Instruction Type:Patient Education Patient Instructions Indication:BMI 24.0-24.9, adult Start:29-Feb-2020 Instruction Type:Provider Instructions for Treatment How to access health informa tion online Indication:BMI 25.0-25.9,adult Start:22-Feb-2020 Instruction Type:Patient Education How to access health informa tion online - Detail Indication:BMI 25.0-25.9,adult Start:22-Feb-2020 Instruction Type:Patient Education Patient Instructions Indication:BMI 25.0-25.9,adult Start:22-Feb-2020 Instruction Type:Provider Instructions for Treatment How to access health informa tion online Indication:BMI 25.0-25.9,adult Start:05-Feb-2020 Instruction Type:Patient Education How to access health informa tion online - Detail Indication:BMI 25.0-25.9,adult Start:05-Feb-2020 Instruction Type:Patient Education Patient Instructions Indication:BMI 25.0-25.9,adult Start:05-Feb-2020 Instruction Type:Provider Instructions for Treatment How to access health informa tion online Indication:Non-smoker Start:14-Dec-2019 Instruction Type:Patient Education How to access health informa tion online - Detail Indication:Non-smoker Start:14-Dec-2019 Instruction Type:Patient Education Patient Instructions Indication:Non-smoker Start:14-Dec-2019 Instruction Type:Provider Instructions for Treatment How to access health informa tion online Indication:Non-smoker Start:08-Nov-2019 Instruction Type:Patient Education How to access health informa tion online - Detail Indication:Non-smoker Start:08-Nov-2019 Instruction Type:Patient Education Patient Instructions Indication:Non-smoker Start:08-Nov-2019 Instruction Type:Provider Instructions for Treatment How to access health informa tion online Indication:Non-smoker Start:30-Oct-2019 Instruction Type:Patient Education How to access health informa tion online - Detail Indication:Non-smoker Start:30-Oct-2019 Instruction Type:Patient Education Patient Instructions Indication:Non-smoker Start:30-Oct-2019 Instruction Type:Provider Instructions for Treatment How to access health informa tion online Indication:BMI 25.0-25.9,adult Start:18-Oct-2019 Instruction Type:Patient Education How to access health informa tion online - Detail Indication:BMI 25.0-25.9,adult Start:18-Oct-2019 Instruction Type:Patient Education Patient Instructions Indication:BMI 25.0-25.9,adult Start:18-Oct-2019 Instruction Type:Provider Instructions for Treatment [facility]; [facility] Work Phone: Instructions* Name Dates Details Patient Instructions Indication:Non-smoker Start:27-May-2022 Instruction Type:Provider Instructions for Treatment How to Access Health Informa tion Online using Patient Portal and [employer]rd [employer] Apps Indication:Non-smoker Start:27-May-2022 Instruction Type:Patient Education Patient Instructions Indication:Non-smoker Start:02-Apr-2022 Instruction Type:Provider Instructions for Treatment How to Access Health Informa tion Online using Patient Portal and [employer]rd [employer] Apps Indication:Non-smoker Start:02-Apr-2022 Instruction Type:Patient Education Patient Instructions Indication:BMI 26.0-26.9,adult Start:13-Mar-2022 Instruction Type:Provider Instructions for Treatment How to Access Health Informa tion Online using Patient Portal and [employer]rd [employer] Apps Indication:BMI 26.0-26.9,adult Start:13-Mar-2022 Instruction Type:Patient Education Patient Instructions Indication:BMI 26.0-26.9,adult Start:10-Oct-2021 Instruction Type:Provider Instructions for Treatment How to Access Health Informa tion Online using Patient Portal and [employer]rd [employer] Apps Indication:BMI 26.0-26.9,adult Start:10-Oct-2021 Instruction Type:Patient Education Patient Instructions Indication:Non-smoker Start:19-Sep-2021 Instruction Type:Provider Instructions for Treatment How to Access Health Informa tion Online using Patient Portal and [employer]rd [employer] Apps Indication:Non-smoker Start:19-Sep-2021 Instruction Type:Patient Education Patient Instructions Indication:Non-smoker Start:14-Mar-2021 Instruction Type:Provider Instructions for Treatment How to Access Health Informa tion Online using Patient Portal and [employer]rd [employer] Apps Indication:Non-smoker Start:14-Mar-2021 Instruction Type:Patient Education How to Access Health Informa tion Online using Patient Portal and [employer]rd [employer] Apps Indication:Non-smoker Start:18-Sep-2020 Instruction Type:Patient Education Patient Instructions Indication:Non-smoker Start:18-Sep-2020 Instruction Type:Provider Instructions for Treatment Patient Instructions Indication:Non-smoker Start:15-Jul-2020 Instruction Type:Provider Instructions for Treatment How to Access Health Informa tion Online using Patient Portal and [employer]rd [employer] Apps Indication:Non-smoker Start:15-Jul-2020 Instruction Type:Patient Education Patient Instructions Indication:BMI 26.0-26.9,adult Start:08-Jul-2020 Instruction Type:Provider Instructions for Treatment How to Access Health Informa tion Online using Patient Portal and [employer]rd [employer] Apps Indication:BMI 26.0-26.9,adult Start:08-Jul-2020 Instruction Type:Patient Education Patient Instructions Indication:Non-smoker Start:04-Jul-2020 Instruction Type:Provider Instructions for Treatment How to Access Health Informa tion Online using Patient Portal and [employer]rd [employer] Apps Indication:Non-smoker Start:04-Jul-2020 Instruction Type:Patient Education How to Access Health Informa tion Online using Patient Portal and [employer]rd [employer] Apps Indication:Non-smoker Start:03-Jul-2020 Instruction Type:Patient Education Patient Instructions Indication:Non-smoker Start:03-Jul-2020 Instruction Type:Provider Instructions for Treatment Patient Instructions Indication:Non-smoker Start:01-Jul-2020 Instruction Type:Provider Instructions for Treatment How to Access Health Informa tion Online using Patient Portal and [employer] Apps Indication:Non-smoker Start:01-Jul-2020 Instruction Type:Patient Education Patient Instructions Indication:Non-smoker Start:28-Jun-2020 Instruction Type:Provider Instructions for Treatment How to Access Health Informa tion Online using Patient Portal and [employer]rd [employer] Apps Indication:Non-smoker Start:28-Jun-2020 Instruction Type:Patient Education How to Access Health Informa tion Online using Patient Portal and [employer] Apps Indication:Non-smoker Start:12-Apr-2020 Instruction Type:Patient Education Patient Instructions Indication:Non-smoker Start:12-Apr-2020 Instruction Type:Provider Instructions for Treatment How to access health informa tion online Indication:Non-smoker Start:18-Mar-2020 Instruction Type:Patient Education How to access health informa tion online - Detail Indication:Non-smoker Start:18-Mar-2020 Instruction Type:Patient Education Patient Instructions Indication:Non-smoker Start:18-Mar-2020 Instruction Type:Provider Instructions for Treatment How to access health informa tion online Indication:Non-smoker Start:04-Mar-2020 Instruction Type:Patient Education How to access health informa tion online - Detail Indication:Non-smoker Start:04-Mar-2020 Instruction Type:Patient Education Patient Instructions Indication:Allergic rhinitis Start:04-Mar-2020 Instruction Type:Provider Instructions for Treatment How to access health informa tion online Indication:Non-smoker Start:29-Feb-2020 Instruction Type:Patient Education How to access health informa tion online - Detail Indication:Non-smoker Start:29-Feb-2020 Instruction Type:Patient Education Patient Instructions Indication:Non-smoker Start:29-Feb-2020 Instruction Type:Provider Instructions for Treatment How to access health informa tion online Indication:BMI 24.0-24.9, adult Start:29-Feb-2020 Instruction Type:Patient Education How to access health informa tion online - Detail Indication:BMI 24.0-24.9, adult Start:29-Feb-2020 Instruction Type:Patient Education Patient Instructions Indication:BMI 24.0-24.9, adult Start:29-Feb-2020 Instruction Type:Provider Instructions for Treatment How to access health informa tion online Indication:BMI 25.0-25.9,adult Start:22-Feb-2020 Instruction Type:Patient Education How to access health informa tion online - Detail Indication:BMI 25.0-25.9,adult Start:22-Feb-2020 Instruction Type:Patient Education Patient Instructions Indication:BMI 25.0-25.9,adult Start:22-Feb-2020 Instruction Type:Provider Instructions for Treatment How to access health informa tion online Indication:BMI 25.0-25.9,adult Start:05-Feb-2020 Instruction Type:Patient Education How to access health informa tion online - Detail Indication:BMI 25.0-25.9,adult Start:05-Feb-2020 Instruction Type:Patient Education Patient Instructions Indication:BMI 25.0-25.9,adult Start:05-Feb-2020 Instruction Type:Provider Instructions for Treatment How to access health informa tion online Indication:Non-smoker Start:14-Dec-2019 Instruction Type:Patient Education How to access health informa tion online - Detail Indication:Non-smoker Start:14-Dec-2019 Instruction Type:Patient Education Patient Instructions Indication:Non-smoker Start:14-Dec-2019 Instruction Type:Provider Instructions for Treatment How to access health informa tion online Indication:Non-smoker Start:08-Nov-2019 Instruction Type:Patient Education How to access health informa tion online - Detail Indication:Non-smoker Start:08-Nov-2019 Instruction Type:Patient Education Patient Instructions Indication:Non-smoker Start:08-Nov-2019 Instruction Type:Provider Instructions for Treatment How to access health informa tion online Indication:Non-smoker Start:30-Oct-2019 Instruction Type:Patient Education How to access health informa tion online - Detail Indication:Non-smoker Start:30-Oct-2019 Instruction Type:Patient Education Patient Instructions Indication:Non-smoker Start:30-Oct-2019 Instruction Type:Provider Instructions for Treatment How to access health informa tion online Indication:BMI 25.0-25.9,adult Start:18-Oct-2019 Instruction Type:Patient Education How to access health informa tion online - Detail Indication:BMI 25.0-25.9,adult Start:18-Oct-2019 Instruction Type:Patient Education Patient Instructions Indication:BMI 25.0-25.9,adult Start:18-Oct-2019 Instruction Type:Provider Instructions for Treatment [facility]; [facility] Work Phone: Instructions* Name Dates Details Patient Instructions Indication:BMI 27.0-27.9,adult Start:19-Jun-2022 Instruction Type:Provider Instructions for Treatment How to Access Health Informa tion Online using Patient Portal and [employer] Apps Indication:BMI 27.0-27.9,adult Start:19-Jun-2022 Instruction Type:Patient Education Patient Instructions Indication:Non-smoker Start:27-May-2022 Instruction Type:Provider Instructions for Treatment How to Access Health Informa tion Online using Patient Portal and [employer] Apps Indication:Non-smoker Start:27-May-2022 Instruction Type:Patient Education Patient Instructions Indication:Non-smoker Start:02-Apr-2022 Instruction Type:Provider Instructions for Treatment How to Access Health Informa tion Online using Patient Portal and [employer] Apps Indication:Non-smoker Start:02-Apr-2022 Instruction Type:Patient Education Patient Instructions Indication:BMI 26.0-26.9,adult Start:13-Mar-2022 Instruction Type:Provider Instructions for Treatment How to Access Health Informa tion Online using Patient Portal and [employer] Apps Indication:BMI 26.0-26.9,adult Start:13-Mar-2022 Instruction Type:Patient Education Patient Instructions Indication:BMI 26.0-26.9,adult Start:10-Oct-2021 Instruction Type:Provider Instructions for Treatment How to Access Health Informa tion Online using Patient Portal and [employer] Apps Indication:BMI 26.0-26.9,adult Start:10-Oct-2021 Instruction Type:Patient Education Patient Instructions Indication:Non-smoker Start:19-Sep-2021 Instruction Type:Provider Instructions for Treatment How to Access Health Informa tion Online using Patient Portal and [employer] Apps Indication:Non-smoker Start:19-Sep-2021 Instruction Type:Patient Education Patient Instructions Indication:Non-smoker Start:14-Mar-2021 Instruction Type:Provider Instructions for Treatment How to Access Health Informa tion Online using Patient Portal and [employer] Apps Indication:Non-smoker Start:14-Mar-2021 Instruction Type:Patient Education How to Access Health Informa tion Online using Patient Portal and [employer] Apps Indication:Non-smoker Start:18-Sep-2020 Instruction Type:Patient Education Patient Instructions Indication:Non-smoker Start:18-Sep-2020 Instruction Type:Provider Instructions for Treatment Patient Instructions Indication:Non-smoker Start:15-Jul-2020 Instruction Type:Provider Instructions for Treatment How to Access Health Informa tion Online using Patient Portal and [employer] Apps Indication:Non-smoker Start:15-Jul-2020 Instruction Type:Patient Education Patient Instructions Indication:BMI 26.0-26.9,adult Start:08-Jul-2020 Instruction Type:Provider Instructions for Treatment How to Access Health Informa tion Online using Patient Portal and [employer] Apps Indication:BMI 26.0-26.9,adult Start:08-Jul-2020 Instruction Type:Patient Education Patient Instructions Indication:Non-smoker Start:04-Jul-2020 Instruction Type:Provider Instructions for Treatment How to Access Health Informa tion Online using Patient Portal and [employer] Apps Indication:Non-smoker Start:04-Jul-2020 Instruction Type:Patient Education How to Access Health Informa tion Online using Patient Portal and [employer] Apps Indication:Non-smoker Start:03-Jul-2020 Instruction Type:Patient Education Patient Instructions Indication:Non-smoker Start:03-Jul-2020 Instruction Type:Provider Instructions for Treatment Patient Instructions Indication:Non-smoker Start:01-Jul-2020 Instruction Type:Provider Instructions for Treatment How to Access Health Informa tion Online using Patient Portal and [employer] Apps Indication:Non-smoker Start:01-Jul-2020 Instruction Type:Patient Education Patient Instructions Indication:Non-smoker Start:28-Jun-2020 Instruction Type:Provider Instructions for Treatment How to Access Health Informa tion Online using Patient Portal and [employer] Apps Indication:Non-smoker Start:28-Jun-2020 Instruction Type:Patient Education How to Access Health Informa tion Online using Patient Portal and [employer] Apps Indication:Non-smoker Start:12-Apr-2020 Instruction Type:Patient Education Patient Instructions Indication:Non-smoker Start:12-Apr-2020 Instruction Type:Provider Instructions for Treatment How to access health informa tion online Indication:Non-smoker Start:18-Mar-2020 Instruction Type:Patient Education How to access health informa tion online - Detail Indication:Non-smoker Start:18-Mar-2020 Instruction Type:Patient Education Patient Instructions Indication:Non-smoker Start:18-Mar-2020 Instruction Type:Provider Instructions for Treatment How to access health informa tion online Indication:Non-smoker Start:04-Mar-2020 Instruction Type:Patient Education How to access health informa tion online - Detail Indication:Non-smoker Start:04-Mar-2020 Instruction Type:Patient Education Patient Instructions Indication:Allergic rhinitis Start:04-Mar-2020 Instruction Type:Provider Instructions for Treatment How to access health informa tion online Indication:Non-smoker Start:29-Feb-2020 Instruction Type:Patient Education How to access health informa tion online - Detail Indication:Non-smoker Start:29-Feb-2020 Instruction Type:Patient Education Patient Instructions Indication:Non-smoker Start:29-Feb-2020 Instruction Type:Provider Instructions for Treatment How to access health informa tion online Indication:BMI 24.0-24.9, adult Start:29-Feb-2020 Instruction Type:Patient Education How to access health informa tion online - Detail Indication:BMI 24.0-24.9, adult Start:29-Feb-2020 Instruction Type:Patient Education Patient Instructions Indication:BMI 24.0-24.9, adult Start:29-Feb-2020 Instruction Type:Provider Instructions for Treatment How to access health informa tion online Indication:BMI 25.0-25.9,adult Start:22-Feb-2020 Instruction Type:Patient Education How to access health informa tion online - Detail Indication:BMI 25.0-25.9,adult Start:22-Feb-2020 Instruction Type:Patient Education Patient Instructions Indication:BMI 25.0-25.9,adult Start:22-Feb-2020 Instruction Type:Provider Instructions for Treatment How to access health informa tion online Indication:BMI 25.0-25.9,adult Start:05-Feb-2020 Instruction Type:Patient Education How to access health informa tion online - Detail Indication:BMI 25.0-25.9,adult Start:05-Feb-2020 Instruction Type:Patient Education Patient Instructions Indication:BMI 25.0-25.9,adult Start:05-Feb-2020 Instruction Type:Provider Instructions for Treatment How to access health informa tion online Indication:Non-smoker Start:14-Dec-2019 Instruction Type:Patient Education How to access health informa tion online - Detail Indication:Non-smoker Start:14-Dec-2019 Instruction Type:Patient Education Patient Instructions Indication:Non-smoker Start:14-Dec-2019 Instruction Type:Provider Instructions for Treatment How to access health informa tion online Indication:Non-smoker Start:08-Nov-2019 Instruction Type:Patient Education How to access health informa tion online - Detail Indication:Non-smoker Start:08-Nov-2019 Instruction Type:Patient Education Patient Instructions Indication:Non-smoker Start:08-Nov-2019 Instruction Type:Provider Instructions for Treatment How to access health informa tion online Indication:Non-smoker Start:30-Oct-2019 Instruction Type:Patient Education How to access health informa tion online - Detail Indication:Non-smoker Start:30-Oct-2019 Instruction Type:Patient Education Patient Instructions Indication:Non-smoker Start:30-Oct-2019 Instruction Type:Provider Instructions for Treatment How to access health informa tion online Indication:BMI 25.0-25.9,adult Start:18-Oct-2019 Instruction Type:Patient Education How to access health informa tion online - Detail Indication:BMI 25.0-25.9,adult Start:18-Oct-2019 Instruction Type:Patient Education Patient Instructions Indication:BMI 25.0-25.9,adult Start:18-Oct-2019 Instruction Type:Provider Instructions for Treatment [facility]; [facility] Work Phone: Instructions* Name Dates Details Patient Instructions Indication:BMI 27.0-27.9,adult Start:19-Jun-2022 Instruction Type:Provider Instructions for Treatment How to Access Health Informa tion Online using Patient Portal and [employer] Apps Indication:BMI 27.0-27.9,adult Start:19-Jun-2022 Instruction Type:Patient Education Patient Instructions Indication:Non-smoker Start:27-May-2022 Instruction Type:Provider Instructions for Treatment How to Access Health Informa tion Online using Patient Portal and [employer] Apps Indication:Non-smoker Start:27-May-2022 Instruction Type:Patient Education Patient Instructions Indication:Non-smoker Start:02-Apr-2022 Instruction Type:Provider Instructions for Treatment How to Access Health Informa tion Online using Patient Portal and [employer] Apps Indication:Non-smoker Start:02-Apr-2022 Instruction Type:Patient Education Patient Instructions Indication:BMI 26.0-26.9,adult Start:13-Mar-2022 Instruction Type:Provider Instructions for Treatment How to Access Health Informa tion Online using Patient Portal and [employer] Apps Indication:BMI 26.0-26.9,adult Start:13-Mar-2022 Instruction Type:Patient Education Patient Instructions Indication:BMI 26.0-26.9,adult Start:10-Oct-2021 Instruction Type:Provider Instructions for Treatment How to Access Health Informa tion Online using Patient Portal and [employer] Apps Indication:BMI 26.0-26.9,adult Start:10-Oct-2021 Instruction Type:Patient Education Patient Instructions Indication:Non-smoker Start:19-Sep-2021 Instruction Type:Provider Instructions for Treatment How to Access Health Informa tion Online using Patient Portal and [employer] Apps Indication:Non-smoker Start:19-Sep-2021 Instruction Type:Patient Education Patient Instructions Indication:Non-smoker Start:14-Mar-2021 Instruction Type:Provider Instructions for Treatment How to Access Health Informa tion Online using Patient Portal and [employer] Apps Indication:Non-smoker Start:14-Mar-2021 Instruction Type:Patient Education How to Access Health Informa tion Online using Patient Portal and [employer] Apps Indication:Non-smoker Start:18-Sep-2020 Instruction Type:Patient Education Patient Instructions Indication:Non-smoker Start:18-Sep-2020 Instruction Type:Provider Instructions for Treatment Patient Instructions Indication:Non-smoker Start:15-Jul-2020 Instruction Type:Provider Instructions for Treatment How to Access Health Informa tion Online using Patient Portal and [employer] Apps Indication:Non-smoker Start:15-Jul-2020 Instruction Type:Patient Education Patient Instructions Indication:BMI 26.0-26.9,adult Start:08-Jul-2020 Instruction Type:Provider Instructions for Treatment How to Access Health Informa tion Online using Patient Portal and [employer] Apps Indication:BMI 26.0-26.9,adult Start:08-Jul-2020 Instruction Type:Patient Education Patient Instructions Indication:Non-smoker Start:04-Jul-2020 Instruction Type:Provider Instructions for Treatment How to Access Health Informa tion Online using Patient Portal and [employer] Apps Indication:Non-smoker Start:04-Jul-2020 Instruction Type:Patient Education How to Access Health Informa tion Online using Patient Portal and [employer] Apps Indication:Non-smoker Start:03-Jul-2020 Instruction Type:Patient Education Patient Instructions Indication:Non-smoker Start:03-Jul-2020 Instruction Type:Provider Instructions for Treatment Patient Instructions Indication:Non-smoker Start:01-Jul-2020 Instruction Type:Provider Instructions for Treatment How to Access Health Informa tion Online using Patient Portal and [employer] Apps Indication:Non-smoker Start:01-Jul-2020 Instruction Type:Patient Education Patient Instructions Indication:Non-smoker Start:28-Jun-2020 Instruction Type:Provider Instructions for Treatment How to Access Health Informa tion Online using Patient Portal and [employer] Apps Indication:Non-smoker Start:28-Jun-2020 Instruction Type:Patient Education How to Access Health Informa tion Online using Patient Portal and [employer] Apps Indication:Non-smoker Start:12-Apr-2020 Instruction Type:Patient Education Patient Instructions Indication:Non-smoker Start:12-Apr-2020 Instruction Type:Provider Instructions for Treatment How to access health informa tion online Indication:Non-smoker Start:18-Mar-2020 Instruction Type:Patient Education How to access health informa tion online - Detail Indication:Non-smoker Start:18-Mar-2020 Instruction Type:Patient Education Patient Instructions Indication:Non-smoker Start:18-Mar-2020 Instruction Type:Provider Instructions for Treatment How to access health informa tion online Indication:Non-smoker Start:04-Mar-2020 Instruction Type:Patient Education How to access health informa tion online - Detail Indication:Non-smoker Start:04-Mar-2020 Instruction Type:Patient Education Patient Instructions Indication:Allergic rhinitis Start:04-Mar-2020 Instruction Type:Provider Instructions for Treatment How to access health informa tion online Indication:Non-smoker Start:29-Feb-2020 Instruction Type:Patient Education How to access health informa tion online - Detail Indication:Non-smoker Start:29-Feb-2020 Instruction Type:Patient Education Patient Instructions Indication:Non-smoker Start:29-Feb-2020 Instruction Type:Provider Instructions for Treatment How to access health informa tion online Indication:BMI 24.0-24.9, adult Start:29-Feb-2020 Instruction Type:Patient Education How to access health informa tion online - Detail Indication:BMI 24.0-24.9, adult Start:29-Feb-2020 Instruction Type:Patient Education Patient Instructions Indication:BMI 24.0-24.9, adult Start:29-Feb-2020 Instruction Type:Provider Instructions for Treatment How to access health informa tion online Indication:BMI 25.0-25.9,adult Start:22-Feb-2020 Instruction Type:Patient Education How to access health informa tion online - Detail Indication:BMI 25.0-25.9,adult Start:22-Feb-2020 Instruction Type:Patient Education Patient Instructions Indication:BMI 25.0-25.9,adult Start:22-Feb-2020 Instruction Type:Provider Instructions for Treatment How to access health informa tion online Indication:BMI 25.0-25.9,adult Start:05-Feb-2020 Instruction Type:Patient Education How to access health informa tion online - Detail Indication:BMI 25.0-25.9,adult Start:05-Feb-2020 Instruction Type:Patient Education Patient Instructions Indication:BMI 25.0-25.9,adult Start:05-Feb-2020 Instruction Type:Provider Instructions for Treatment How to access health informa tion online Indication:Non-smoker Start:14-Dec-2019 Instruction Type:Patient Education How to access health informa tion online - Detail Indication:Non-smoker Start:14-Dec-2019 Instruction Type:Patient Education Patient Instructions Indication:Non-smoker Start:14-Dec-2019 Instruction Type:Provider Instructions for Treatment How to access health informa tion online Indication:Non-smoker Start:08-Nov-2019 Instruction Type:Patient Education How to access health informa tion online - Detail Indication:Non-smoker Start:08-Nov-2019 Instruction Type:Patient Education Patient Instructions Indication:Non-smoker Start:08-Nov-2019 Instruction Type:Provider Instructions for Treatment How to access health informa tion online Indication:Non-smoker Start:30-Oct-2019 Instruction Type:Patient Education How to access health informa tion online - Detail Indication:Non-smoker Start:30-Oct-2019 Instruction Type:Patient Education Patient Instructions Indication:Non-smoker Start:30-Oct-2019 Instruction Type:Provider Instructions for Treatment How to access health informa tion online Indication:BMI 25.0-25.9,adult Start:18-Oct-2019 Instruction Type:Patient Education How to access health informa tion online - Detail Indication:BMI 25.0-25.9,adult Start:18-Oct-2019 Instruction Type:Patient Education Patient Instructions Indication:BMI 25.0-25.9,adult Start:18-Oct-2019 Instruction Type:Provider Instructions for Treatment [facility]; [facility] Work Phone: Instructions* Name Dates Details Patient Instructions Indication:BMI 27.0-27.9,adult Start:19-Jun-2022 Instruction Type:Provider Instructions for Treatment How to Access Health Informa tion Online using Patient Portal and [employer] Apps Indication:BMI 27.0-27.9,adult Start:19-Jun-2022 Instruction Type:Patient Education Patient Instructions Indication:Non-smoker Start:27-May-2022 Instruction Type:Provider Instructions for Treatment How to Access Health Informa tion Online using Patient Portal and [employer] Apps Indication:Non-smoker Start:27-May-2022 Instruction Type:Patient Education Patient Instructions Indication:Non-smoker Start:02-Apr-2022 Instruction Type:Provider Instructions for Treatment How to Access Health Informa tion Online using Patient Portal and [employer] Apps Indication:Non-smoker Start:02-Apr-2022 Instruction Type:Patient Education Patient Instructions Indication:BMI 26.0-26.9,adult Start:13-Mar-2022 Instruction Type:Provider Instructions for Treatment How to Access Health Informa tion Online using Patient Portal and [employer] Apps Indication:BMI 26.0-26.9,adult Start:13-Mar-2022 Instruction Type:Patient Education Patient Instructions Indication:BMI 26.0-26.9,adult Start:10-Oct-2021 Instruction Type:Provider Instructions for Treatment How to Access Health Informa tion Online using Patient Portal and [employer] Apps Indication:BMI 26.0-26.9,adult Start:10-Oct-2021 Instruction Type:Patient Education Patient Instructions Indication:Non-smoker Start:19-Sep-2021 Instruction Type:Provider Instructions for Treatment How to Access Health Informa tion Online using Patient Portal and [employer] Apps Indication:Non-smoker Start:19-Sep-2021 Instruction Type:Patient Education Patient Instructions Indication:Non-smoker Start:14-Mar-2021 Instruction Type:Provider Instructions for Treatment How to Access Health Informa tion Online using Patient Portal and [employer] Apps Indication:Non-smoker Start:14-Mar-2021 Instruction Type:Patient Education How to Access Health Informa tion Online using Patient Portal and [employer] Apps Indication:Non-smoker Start:18-Sep-2020 Instruction Type:Patient Education Patient Instructions Indication:Non-smoker Start:18-Sep-2020 Instruction Type:Provider Instructions for Treatment Patient Instructions Indication:Non-smoker Start:15-Jul-2020 Instruction Type:Provider Instructions for Treatment How to Access Health Informa tion Online using Patient Portal and [employer]rd [employer] Apps Indication:Non-smoker Start:15-Jul-2020 Instruction Type:Patient Education Patient Instructions Indication:BMI 26.0-26.9,adult Start:08-Jul-2020 Instruction Type:Provider Instructions for Treatment How to Access Health Informa tion Online using Patient Portal and [employer]rd [employer] Apps Indication:BMI 26.0-26.9,adult Start:08-Jul-2020 Instruction Type:Patient Education Patient Instructions Indication:Non-smoker Start:04-Jul-2020 Instruction Type:Provider Instructions for Treatment How to Access Health Informa tion Online using Patient Portal and [employer]rd [employer] Apps Indication:Non-smoker Start:04-Jul-2020 Instruction Type:Patient Education How to Access Health Informa tion Online using Patient Portal and [employer]rd [employer] Apps Indication:Non-smoker Start:03-Jul-2020 Instruction Type:Patient Education Patient Instructions Indication:Non-smoker Start:03-Jul-2020 Instruction Type:Provider Instructions for Treatment Patient Instructions Indication:Non-smoker Start:01-Jul-2020 Instruction Type:Provider Instructions for Treatment How to Access Health Informa tion Online using Patient Portal and [employer]rd [employer] Apps Indication:Non-smoker Start:01-Jul-2020 Instruction Type:Patient Education Patient Instructions Indication:Non-smoker Start:28-Jun-2020 Instruction Type:Provider Instructions for Treatment How to Access Health Informa tion Online using Patient Portal and [employer]rd [employer] Apps Indication:Non-smoker Start:28-Jun-2020 Instruction Type:Patient Education How to Access Health Informa tion Online using Patient Portal and [employer]rd [employer] Apps Indication:Non-smoker Start:12-Apr-2020 Instruction Type:Patient Education Patient Instructions Indication:Non-smoker Start:12-Apr-2020 Instruction Type:Provider Instructions for Treatment How to access health informa tion online Indication:Non-smoker Start:18-Mar-2020 Instruction Type:Patient Education How to access health informa tion online - Detail Indication:Non-smoker Start:18-Mar-2020 Instruction Type:Patient Education Patient Instructions Indication:Non-smoker Start:18-Mar-2020 Instruction Type:Provider Instructions for Treatment How to access health informa tion online Indication:Non-smoker Start:04-Mar-2020 Instruction Type:Patient Education How to access health informa tion online - Detail Indication:Non-smoker Start:04-Mar-2020 Instruction Type:Patient Education Patient Instructions Indication:Allergic rhinitis Start:04-Mar-2020 Instruction Type:Provider Instructions for Treatment How to access health informa tion online Indication:Non-smoker Start:29-Feb-2020 Instruction Type:Patient Education How to access health informa tion online - Detail Indication:Non-smoker Start:29-Feb-2020 Instruction Type:Patient Education Patient Instructions Indication:Non-smoker Start:29-Feb-2020 Instruction Type:Provider Instructions for Treatment How to access health informa tion online Indication:BMI 24.0-24.9, adult Start:29-Feb-2020 Instruction Type:Patient Education How to access health informa tion online - Detail Indication:BMI 24.0-24.9, adult Start:29-Feb-2020 Instruction Type:Patient Education Patient Instructions Indication:BMI 24.0-24.9, adult Start:29-Feb-2020 Instruction Type:Provider Instructions for Treatment How to access health informa tion online Indication:BMI 25.0-25.9,adult Start:22-Feb-2020 Instruction Type:Patient Education How to access health informa tion online - Detail Indication:BMI 25.0-25.9,adult Start:22-Feb-2020 Instruction Type:Patient Education Patient Instructions Indication:BMI 25.0-25.9,adult Start:22-Feb-2020 Instruction Type:Provider Instructions for Treatment How to access health informa tion online Indication:BMI 25.0-25.9,adult Start:05-Feb-2020 Instruction Type:Patient Education How to access health informa tion online - Detail Indication:BMI 25.0-25.9,adult Start:05-Feb-2020 Instruction Type:Patient Education Patient Instructions Indication:BMI 25.0-25.9,adult Start:05-Feb-2020 Instruction Type:Provider Instructions for Treatment How to access health informa tion online Indication:Non-smoker Start:14-Dec-2019 Instruction Type:Patient Education How to access health informa tion online - Detail Indication:Non-smoker Start:14-Dec-2019 Instruction Type:Patient Education Patient Instructions Indication:Non-smoker Start:14-Dec-2019 Instruction Type:Provider Instructions for Treatment How to access health informa tion online Indication:Non-smoker Start:08-Nov-2019 Instruction Type:Patient Education How to access health informa tion online - Detail Indication:Non-smoker Start:08-Nov-2019 Instruction Type:Patient Education Patient Instructions Indication:Non-smoker Start:08-Nov-2019 Instruction Type:Provider Instructions for Treatment How to access health informa tion online Indication:Non-smoker Start:30-Oct-2019 Instruction Type:Patient Education How to access health informa tion online - Detail Indication:Non-smoker Start:30-Oct-2019 Instruction Type:Patient Education Patient Instructions Indication:Non-smoker Start:30-Oct-2019 Instruction Type:Provider Instructions for Treatment How to access health informa tion online Indication:BMI 25.0-25.9,adult Start:18-Oct-2019 Instruction Type:Patient Education How to access health informa tion online - Detail Indication:BMI 25.0-25.9,adult Start:18-Oct-2019 Instruction Type:Patient Education Patient Instructions Indication:BMI 25.0-25.9,adult Start:18-Oct-2019 Instruction Type:Provider Instructions for Treatment [facility]; [facility] Work Phone: Instructions* Name Dates Details Patient Instructions Indication:BMI 26.0-26.9,adult Start:02-Sep-2022 Instruction Type:Provider Instructions for Treatment How to Access Health Informa tion Online using Patient Portal and [employer]rd [employer] Apps Indication:BMI 26.0-26.9,adult Start:02-Sep-2022 Instruction Type:Patient Education Patient Instructions Indication:BMI 27.0-27.9,adult Start:19-Jun-2022 Instruction Type:Provider Instructions for Treatment How to Access Health Informa tion Online using Patient Portal and [employer]rd [employer] Apps Indication:BMI 27.0-27.9,adult Start:19-Jun-2022 Instruction Type:Patient Education Patient Instructions Indication:Non-smoker Start:27-May-2022 Instruction Type:Provider Instructions for Treatment How to Access Health Informa tion Online using Patient Portal and [employer] Apps Indication:Non-smoker Start:27-May-2022 Instruction Type:Patient Education Patient Instructions Indication:Non-smoker Start:02-Apr-2022 Instruction Type:Provider Instructions for Treatment How to Access Health Informa tion Online using Patient Portal and [employer] Apps Indication:Non-smoker Start:02-Apr-2022 Instruction Type:Patient Education Patient Instructions Indication:BMI 26.0-26.9,adult Start:13-Mar-2022 Instruction Type:Provider Instructions for Treatment How to Access Health Informa tion Online using Patient Portal and [employer] Apps Indication:BMI 26.0-26.9,adult Start:13-Mar-2022 Instruction Type:Patient Education Patient Instructions Indication:BMI 26.0-26.9,adult Start:10-Oct-2021 Instruction Type:Provider Instructions for Treatment How to Access Health Informa tion Online using Patient Portal and [employer] Apps Indication:BMI 26.0-26.9,adult Start:10-Oct-2021 Instruction Type:Patient Education Patient Instructions Indication:Non-smoker Start:19-Sep-2021 Instruction Type:Provider Instructions for Treatment How to Access Health Informa tion Online using Patient Portal and [employer] Apps Indication:Non-smoker Start:19-Sep-2021 Instruction Type:Patient Education Patient Instructions Indication:Non-smoker Start:14-Mar-2021 Instruction Type:Provider Instructions for Treatment How to Access Health Informa tion Online using Patient Portal and [employer] Apps Indication:Non-smoker Start:14-Mar-2021 Instruction Type:Patient Education How to Access Health Informa tion Online using Patient Portal and [employer] Apps Indication:Non-smoker Start:18-Sep-2020 Instruction Type:Patient Education Patient Instructions Indication:Non-smoker Start:18-Sep-2020 Instruction Type:Provider Instructions for Treatment Patient Instructions Indication:Non-smoker Start:15-Jul-2020 Instruction Type:Provider Instructions for Treatment How to Access Health Informa tion Online using Patient Portal and [employer] Apps Indication:Non-smoker Start:15-Jul-2020 Instruction Type:Patient Education Patient Instructions Indication:BMI 26.0-26.9,adult Start:08-Jul-2020 Instruction Type:Provider Instructions for Treatment How to Access Health Informa tion Online using Patient Portal and [employer] Apps Indication:BMI 26.0-26.9,adult Start:08-Jul-2020 Instruction Type:Patient Education Patient Instructions Indication:Non-smoker Start:04-Jul-2020 Instruction Type:Provider Instructions for Treatment How to Access Health Informa tion Online using Patient Portal and [employer] Apps Indication:Non-smoker Start:04-Jul-2020 Instruction Type:Patient Education How to Access Health Informa tion Online using Patient Portal and [employer] Apps Indication:Non-smoker Start:03-Jul-2020 Instruction Type:Patient Education Patient Instructions Indication:Non-smoker Start:03-Jul-2020 Instruction Type:Provider Instructions for Treatment Patient Instructions Indication:Non-smoker Start:01-Jul-2020 Instruction Type:Provider Instructions for Treatment How to Access Health Informa tion Online using Patient Portal and [employer] Apps Indication:Non-smoker Start:01-Jul-2020 Instruction Type:Patient Education Patient Instructions Indication:Non-smoker Start:28-Jun-2020 Instruction Type:Provider Instructions for Treatment How to Access Health Informa tion Online using Patient Portal and [employer] Apps Indication:Non-smoker Start:28-Jun-2020 Instruction Type:Patient Education How to Access Health Informa tion Online using Patient Portal and [employer] Apps Indication:Non-smoker Start:12-Apr-2020 Instruction Type:Patient Education Patient Instructions Indication:Non-smoker Start:12-Apr-2020 Instruction Type:Provider Instructions for Treatment How to access health informa tion online Indication:Non-smoker Start:18-Mar-2020 Instruction Type:Patient Education How to access health informa tion online - Detail Indication:Non-smoker Start:18-Mar-2020 Instruction Type:Patient Education Patient Instructions Indication:Non-smoker Start:18-Mar-2020 Instruction Type:Provider Instructions for Treatment How to access health informa tion online Indication:Non-smoker Start:04-Mar-2020 Instruction Type:Patient Education How to access health informa tion online - Detail Indication:Non-smoker Start:04-Mar-2020 Instruction Type:Patient Education Patient Instructions Indication:Allergic rhinitis Start:04-Mar-2020 Instruction Type:Provider Instructions for Treatment How to access health informa tion online Indication:Non-smoker Start:29-Feb-2020 Instruction Type:Patient Education How to access health informa tion online - Detail Indication:Non-smoker Start:29-Feb-2020 Instruction Type:Patient Education Patient Instructions Indication:Non-smoker Start:29-Feb-2020 Instruction Type:Provider Instructions for Treatment How to access health informa tion online Indication:BMI 24.0-24.9, adult Start:29-Feb-2020 Instruction Type:Patient Education How to access health informa tion online - Detail Indication:BMI 24.0-24.9, adult Start:29-Feb-2020 Instruction Type:Patient Education Patient Instructions Indication:BMI 24.0-24.9, adult Start:29-Feb-2020 Instruction Type:Provider Instructions for Treatment How to access health informa tion online Indication:BMI 25.0-25.9,adult Start:22-Feb-2020 Instruction Type:Patient Education How to access health informa tion online - Detail Indication:BMI 25.0-25.9,adult Start:22-Feb-2020 Instruction Type:Patient Education Patient Instructions Indication:BMI 25.0-25.9,adult Start:22-Feb-2020 Instruction Type:Provider Instructions for Treatment How to access health informa tion online Indication:BMI 25.0-25.9,adult Start:05-Feb-2020 Instruction Type:Patient Education How to access health informa tion online - Detail Indication:BMI 25.0-25.9,adult Start:05-Feb-2020 Instruction Type:Patient Education Patient Instructions Indication:BMI 25.0-25.9,adult Start:05-Feb-2020 Instruction Type:Provider Instructions for Treatment How to access health informa tion online Indication:Non-smoker Start:14-Dec-2019 Instruction Type:Patient Education How to access health informa tion online - Detail Indication:Non-smoker Start:14-Dec-2019 Instruction Type:Patient Education Patient Instructions Indication:Non-smoker Start:14-Dec-2019 Instruction Type:Provider Instructions for Treatment How to access health informa tion online Indication:Non-smoker Start:08-Nov-2019 Instruction Type:Patient Education How to access health informa tion online - Detail Indication:Non-smoker Start:08-Nov-2019 Instruction Type:Patient Education Patient Instructions Indication:Non-smoker Start:08-Nov-2019 Instruction Type:Provider Instructions for Treatment How to access health informa tion online Indication:Non-smoker Start:30-Oct-2019 Instruction Type:Patient Education How to access health informa tion online - Detail Indication:Non-smoker Start:30-Oct-2019 Instruction Type:Patient Education Patient Instructions Indication:Non-smoker Start:30-Oct-2019 Instruction Type:Provider Instructions for Treatment How to access health informa tion online Indication:BMI 25.0-25.9,adult Start:18-Oct-2019 Instruction Type:Patient Education How to access health informa tion online - Detail Indication:BMI 25.0-25.9,adult Start:18-Oct-2019 Instruction Type:Patient Education Patient Instructions Indication:BMI 25.0-25.9,adult Start:18-Oct-2019 Instruction Type:Provider Instructions for Treatment [facility]; [facility] Work Phone: Instructions* Name Dates Details Patient Instructions Indication:BMI 26.0-26.9,adult Start:02-Sep-2022 Instruction Type:Provider Instructions for Treatment How to Access Health Informa tion Online using Patient Portal and [employer]rd [employer] Apps Indication:BMI 26.0-26.9,adult Start:02-Sep-2022 Instruction Type:Patient Education Patient Instructions Indication:BMI 27.0-27.9,adult Start:19-Jun-2022 Instruction Type:Provider Instructions for Treatment How to Access Health Informa tion Online using Patient Portal and [employer]rd [employer] Apps Indication:BMI 27.0-27.9,adult Start:19-Jun-2022 Instruction Type:Patient Education Patient Instructions Indication:Non-smoker Start:27-May-2022 Instruction Type:Provider Instructions for Treatment How to Access Health Informa tion Online using Patient Portal and [employer]rd [employer] Apps Indication:Non-smoker Start:27-May-2022 Instruction Type:Patient Education Patient Instructions Indication:Non-smoker Start:02-Apr-2022 Instruction Type:Provider Instructions for Treatment How to Access Health Informa tion Online using Patient Portal and [employer]rd [employer] Apps Indication:Non-smoker Start:02-Apr-2022 Instruction Type:Patient Education Patient Instructions Indication:BMI 26.0-26.9,adult Start:13-Mar-2022 Instruction Type:Provider Instructions for Treatment How to Access Health Informa tion Online using Patient Portal and [employer]rd [employer] Apps Indication:BMI 26.0-26.9,adult Start:13-Mar-2022 Instruction Type:Patient Education Patient Instructions Indication:BMI 26.0-26.9,adult Start:10-Oct-2021 Instruction Type:Provider Instructions for Treatment How to Access Health Informa tion Online using Patient Portal and [employer] Apps Indication:BMI 26.0-26.9,adult Start:10-Oct-2021 Instruction Type:Patient Education Patient Instructions Indication:Non-smoker Start:19-Sep-2021 Instruction Type:Provider Instructions for Treatment How to Access Health Informa tion Online using Patient Portal and [employer] Apps Indication:Non-smoker Start:19-Sep-2021 Instruction Type:Patient Education Patient Instructions Indication:Non-smoker Start:14-Mar-2021 Instruction Type:Provider Instructions for Treatment How to Access Health Informa tion Online using Patient Portal and [employer] Apps Indication:Non-smoker Start:14-Mar-2021 Instruction Type:Patient Education How to Access Health Informa tion Online using Patient Portal and [employer] Apps Indication:Non-smoker Start:18-Sep-2020 Instruction Type:Patient Education Patient Instructions Indication:Non-smoker Start:18-Sep-2020 Instruction Type:Provider Instructions for Treatment Patient Instructions Indication:Non-smoker Start:15-Jul-2020 Instruction Type:Provider Instructions for Treatment How to Access Health Informa tion Online using Patient Portal and [employer]rd [employer] Apps Indication:Non-smoker Start:15-Jul-2020 Instruction Type:Patient Education Patient Instructions Indication:BMI 26.0-26.9,adult Start:08-Jul-2020 Instruction Type:Provider Instructions for Treatment How to Access Health Informa tion Online using Patient Portal and [employer] Apps Indication:BMI 26.0-26.9,adult Start:08-Jul-2020 Instruction Type:Patient Education Patient Instructions Indication:Non-smoker Start:04-Jul-2020 Instruction Type:Provider Instructions for Treatment How to Access Health Informa tion Online using Patient Portal and [employer] Apps Indication:Non-smoker Start:04-Jul-2020 Instruction Type:Patient Education How to Access Health Informa tion Online using Patient Portal and [employer] Apps Indication:Non-smoker Start:03-Jul-2020 Instruction Type:Patient Education Patient Instructions Indication:Non-smoker Start:03-Jul-2020 Instruction Type:Provider Instructions for Treatment Patient Instructions Indication:Non-smoker Start:01-Jul-2020 Instruction Type:Provider Instructions for Treatment How to Access Health Informa tion Online using Patient Portal and [employer] Apps Indication:Non-smoker Start:01-Jul-2020 Instruction Type:Patient Education Patient Instructions Indication:Non-smoker Start:28-Jun-2020 Instruction Type:Provider Instructions for Treatment How to Access Health Informa tion Online using Patient Portal and [employer] Apps Indication:Non-smoker Start:28-Jun-2020 Instruction Type:Patient Education How to Access Health Informa tion Online using Patient Portal and [employer] Apps Indication:Non-smoker Start:12-Apr-2020 Instruction Type:Patient Education Patient Instructions Indication:Non-smoker Start:12-Apr-2020 Instruction Type:Provider Instructions for Treatment How to access health informa tion online Indication:Non-smoker Start:18-Mar-2020 Instruction Type:Patient Education How to access health informa tion online - Detail Indication:Non-smoker Start:18-Mar-2020 Instruction Type:Patient Education Patient Instructions Indication:Non-smoker Start:18-Mar-2020 Instruction Type:Provider Instructions for Treatment How to access health informa tion online Indication:Non-smoker Start:04-Mar-2020 Instruction Type:Patient Education How to access health informa tion online - Detail Indication:Non-smoker Start:04-Mar-2020 Instruction Type:Patient Education Patient Instructions Indication:Allergic rhinitis Start:04-Mar-2020 Instruction Type:Provider Instructions for Treatment How to access health informa tion online Indication:Non-smoker Start:29-Feb-2020 Instruction Type:Patient Education How to access health informa tion online - Detail Indication:Non-smoker Start:29-Feb-2020 Instruction Type:Patient Education Patient Instructions Indication:Non-smoker Start:29-Feb-2020 Instruction Type:Provider Instructions for Treatment How to access health informa tion online Indication:BMI 24.0-24.9, adult Start:29-Feb-2020 Instruction Type:Patient Education How to access health informa tion online - Detail Indication:BMI 24.0-24.9, adult Start:29-Feb-2020 Instruction Type:Patient Education Patient Instructions Indication:BMI 24.0-24.9, adult Start:29-Feb-2020 Instruction Type:Provider Instructions for Treatment How to access health informa tion online Indication:BMI 25.0-25.9,adult Start:22-Feb-2020 Instruction Type:Patient Education How to access health informa tion online - Detail Indication:BMI 25.0-25.9,adult Start:22-Feb-2020 Instruction Type:Patient Education Patient Instructions Indication:BMI 25.0-25.9,adult Start:22-Feb-2020 Instruction Type:Provider Instructions for Treatment How to access health informa tion online Indication:BMI 25.0-25.9,adult Start:05-Feb-2020 Instruction Type:Patient Education How to access health informa tion online - Detail Indication:BMI 25.0-25.9,adult Start:05-Feb-2020 Instruction Type:Patient Education Patient Instructions Indication:BMI 25.0-25.9,adult Start:05-Feb-2020 Instruction Type:Provider Instructions for Treatment How to access health informa tion online Indication:Non-smoker Start:14-Dec-2019 Instruction Type:Patient Education How to access health informa tion online - Detail Indication:Non-smoker Start:14-Dec-2019 Instruction Type:Patient Education Patient Instructions Indication:Non-smoker Start:14-Dec-2019 Instruction Type:Provider Instructions for Treatment How to access health informa tion online Indication:Non-smoker Start:08-Nov-2019 Instruction Type:Patient Education How to access health informa tion online - Detail Indication:Non-smoker Start:08-Nov-2019 Instruction Type:Patient Education Patient Instructions Indication:Non-smoker Start:08-Nov-2019 Instruction Type:Provider Instructions for Treatment How to access health informa tion online Indication:Non-smoker Start:30-Oct-2019 Instruction Type:Patient Education How to access health informa tion online - Detail Indication:Non-smoker Start:30-Oct-2019 Instruction Type:Patient Education Patient Instructions Indication:Non-smoker Start:30-Oct-2019 Instruction Type:Provider Instructions for Treatment How to access health informa tion online Indication:BMI 25.0-25.9,adult Start:18-Oct-2019 Instruction Type:Patient Education How to access health informa tion online - Detail Indication:BMI 25.0-25.9,adult Start:18-Oct-2019 Instruction Type:Patient Education Patient Instructions Indication:BMI 25.0-25.9,adult Start:18-Oct-2019 Instruction Type:Provider Instructions for Treatment [facility]; [facility] Work Phone: Instructions* Name Dates Details Patient Instructions Indication:BMI 26.0-26.9,adult Start:02-Sep-2022 Instruction Type:Provider Instructions for Treatment How to Access Health Informa tion Online using Patient Portal and [employer]rd [employer] Apps Indication:BMI 26.0-26.9,adult Start:02-Sep-2022 Instruction Type:Patient Education Patient Instructions Indication:BMI 27.0-27.9,adult Start:19-Jun-2022 Instruction Type:Provider Instructions for Treatment How to Access Health Informa tion Online using Patient Portal and [employer]rd [employer] Apps Indication:BMI 27.0-27.9,adult Start:19-Jun-2022 Instruction Type:Patient Education Patient Instructions Indication:Non-smoker Start:27-May-2022 Instruction Type:Provider Instructions for Treatment How to Access Health Informa tion Online using Patient Portal and [employer]rd [employer] Apps Indication:Non-smoker Start:27-May-2022 Instruction Type:Patient Education Patient Instructions Indication:Non-smoker Start:02-Apr-2022 Instruction Type:Provider Instructions for Treatment How to Access Health Informa tion Online using Patient Portal and [employer]rd [employer] Apps Indication:Non-smoker Start:02-Apr-2022 Instruction Type:Patient Education Patient Instructions Indication:BMI 26.0-26.9,adult Start:13-Mar-2022 Instruction Type:Provider Instructions for Treatment How to Access Health Informa tion Online using Patient Portal and [employer]rd [employer] Apps Indication:BMI 26.0-26.9,adult Start:13-Mar-2022 Instruction Type:Patient Education Patient Instructions Indication:BMI 26.0-26.9,adult Start:10-Oct-2021 Instruction Type:Provider Instructions for Treatment How to Access Health Informa tion Online using Patient Portal and [employer] Apps Indication:BMI 26.0-26.9,adult Start:10-Oct-2021 Instruction Type:Patient Education Patient Instructions Indication:Non-smoker Start:19-Sep-2021 Instruction Type:Provider Instructions for Treatment How to Access Health Informa tion Online using Patient Portal and [employer]rd [employer] Apps Indication:Non-smoker Start:19-Sep-2021 Instruction Type:Patient Education Patient Instructions Indication:Non-smoker Start:14-Mar-2021 Instruction Type:Provider Instructions for Treatment How to Access Health Informa tion Online using Patient Portal and [employer]rd [employer] Apps Indication:Non-smoker Start:14-Mar-2021 Instruction Type:Patient Education How to Access Health Informa tion Online using Patient Portal and [employer] Apps Indication:Non-smoker Start:18-Sep-2020 Instruction Type:Patient Education Patient Instructions Indication:Non-smoker Start:18-Sep-2020 Instruction Type:Provider Instructions for Treatment Patient Instructions Indication:Non-smoker Start:15-Jul-2020 Instruction Type:Provider Instructions for Treatment How to Access Health Informa tion Online using Patient Portal and [employer] Apps Indication:Non-smoker Start:15-Jul-2020 Instruction Type:Patient Education Patient Instructions Indication:BMI 26.0-26.9,adult Start:08-Jul-2020 Instruction Type:Provider Instructions for Treatment How to Access Health Informa tion Online using Patient Portal and [employer] Apps Indication:BMI 26.0-26.9,adult Start:08-Jul-2020 Instruction Type:Patient Education Patient Instructions Indication:Non-smoker Start:04-Jul-2020 Instruction Type:Provider Instructions for Treatment How to Access Health Informa tion Online using Patient Portal and [employer] Apps Indication:Non-smoker Start:04-Jul-2020 Instruction Type:Patient Education How to Access Health Informa tion Online using Patient Portal and [employer] Apps Indication:Non-smoker Start:03-Jul-2020 Instruction Type:Patient Education Patient Instructions Indication:Non-smoker Start:03-Jul-2020 Instruction Type:Provider Instructions for Treatment Patient Instructions Indication:Non-smoker Start:01-Jul-2020 Instruction Type:Provider Instructions for Treatment How to Access Health Informa tion Online using Patient Portal and [employer] Apps Indication:Non-smoker Start:01-Jul-2020 Instruction Type:Patient Education Patient Instructions Indication:Non-smoker Start:28-Jun-2020 Instruction Type:Provider Instructions for Treatment How to Access Health Informa tion Online using Patient Portal and [employer] Apps Indication:Non-smoker Start:28-Jun-2020 Instruction Type:Patient Education How to Access Health Informa tion Online using Patient Portal and [employer] Apps Indication:Non-smoker Start:12-Apr-2020 Instruction Type:Patient Education Patient Instructions Indication:Non-smoker Start:12-Apr-2020 Instruction Type:Provider Instructions for Treatment How to access health informa tion online Indication:Non-smoker Start:18-Mar-2020 Instruction Type:Patient Education How to access health informa tion online - Detail Indication:Non-smoker Start:18-Mar-2020 Instruction Type:Patient Education Patient Instructions Indication:Non-smoker Start:18-Mar-2020 Instruction Type:Provider Instructions for Treatment How to access health informa tion online Indication:Non-smoker Start:04-Mar-2020 Instruction Type:Patient Education How to access health informa tion online - Detail Indication:Non-smoker Start:04-Mar-2020 Instruction Type:Patient Education Patient Instructions Indication:Allergic rhinitis Start:04-Mar-2020 Instruction Type:Provider Instructions for Treatment How to access health informa tion online Indication:Non-smoker Start:29-Feb-2020 Instruction Type:Patient Education How to access health informa tion online - Detail Indication:Non-smoker Start:29-Feb-2020 Instruction Type:Patient Education Patient Instructions Indication:Non-smoker Start:29-Feb-2020 Instruction Type:Provider Instructions for Treatment How to access health informa tion online Indication:BMI 24.0-24.9, adult Start:29-Feb-2020 Instruction Type:Patient Education How to access health informa tion online - Detail Indication:BMI 24.0-24.9, adult Start:29-Feb-2020 Instruction Type:Patient Education Patient Instructions Indication:BMI 24.0-24.9, adult Start:29-Feb-2020 Instruction Type:Provider Instructions for Treatment How to access health informa tion online Indication:BMI 25.0-25.9,adult Start:22-Feb-2020 Instruction Type:Patient Education How to access health informa tion online - Detail Indication:BMI 25.0-25.9,adult Start:22-Feb-2020 Instruction Type:Patient Education Patient Instructions Indication:BMI 25.0-25.9,adult Start:22-Feb-2020 Instruction Type:Provider Instructions for Treatment How to access health informa tion online Indication:BMI 25.0-25.9,adult Start:05-Feb-2020 Instruction Type:Patient Education How to access health informa tion online - Detail Indication:BMI 25.0-25.9,adult Start:05-Feb-2020 Instruction Type:Patient Education Patient Instructions Indication:BMI 25.0-25.9,adult Start:05-Feb-2020 Instruction Type:Provider Instructions for Treatment How to access health informa tion online Indication:Non-smoker Start:14-Dec-2019 Instruction Type:Patient Education How to access health informa tion online - Detail Indication:Non-smoker Start:14-Dec-2019 Instruction Type:Patient Education Patient Instructions Indication:Non-smoker Start:14-Dec-2019 Instruction Type:Provider Instructions for Treatment How to access health informa tion online Indication:Non-smoker Start:08-Nov-2019 Instruction Type:Patient Education How to access health informa tion online - Detail Indication:Non-smoker Start:08-Nov-2019 Instruction Type:Patient Education Patient Instructions Indication:Non-smoker Start:08-Nov-2019 Instruction Type:Provider Instructions for Treatment How to access health informa tion online Indication:Non-smoker Start:30-Oct-2019 Instruction Type:Patient Education How to access health informa tion online - Detail Indication:Non-smoker Start:30-Oct-2019 Instruction Type:Patient Education Patient Instructions Indication:Non-smoker Start:30-Oct-2019 Instruction Type:Provider Instructions for Treatment How to access health informa tion online Indication:BMI 25.0-25.9,adult Start:18-Oct-2019 Instruction Type:Patient Education How to access health informa tion online - Detail Indication:BMI 25.0-25.9,adult Start:18-Oct-2019 Instruction Type:Patient Education Patient Instructions Indication:BMI 25.0-25.9,adult Start:18-Oct-2019 Instruction Type:Provider Instructions for Treatment [facility]; [facility] Work Phone: Instructions* Name Dates Details Patient Instructions Indication:BMI 26.0-26.9,adult Start:16-Oct-2022 Instruction Type:Provider Instructions for Treatment How to Access Health Informa tion Online using Patient Portal and [employer] Apps Indication:BMI 26.0-26.9,adult Start:16-Oct-2022 Instruction Type:Patient Education Patient Instructions Indication:BMI 26.0-26.9,adult Start:02-Sep-2022 Instruction Type:Provider Instructions for Treatment How to Access Health Informa tion Online using Patient Portal and [employer] Apps Indication:BMI 26.0-26.9,adult Start:02-Sep-2022 Instruction Type:Patient Education Patient Instructions Indication:BMI 27.0-27.9,adult Start:19-Jun-2022 Instruction Type:Provider Instructions for Treatment How to Access Health Informa tion Online using Patient Portal and [employer] Apps Indication:BMI 27.0-27.9,adult Start:19-Jun-2022 Instruction Type:Patient Education Patient Instructions Indication:Non-smoker Start:27-May-2022 Instruction Type:Provider Instructions for Treatment How to Access Health Informa tion Online using Patient Portal and [employer] Apps Indication:Non-smoker Start:27-May-2022 Instruction Type:Patient Education Patient Instructions Indication:Non-smoker Start:02-Apr-2022 Instruction Type:Provider Instructions for Treatment How to Access Health Informa tion Online using Patient Portal and [employer] Apps Indication:Non-smoker Start:02-Apr-2022 Instruction Type:Patient Education Patient Instructions Indication:BMI 26.0-26.9,adult Start:13-Mar-2022 Instruction Type:Provider Instructions for Treatment How to Access Health Informa tion Online using Patient Portal and [employer] Apps Indication:BMI 26.0-26.9,adult Start:13-Mar-2022 Instruction Type:Patient Education Patient Instructions Indication:BMI 26.0-26.9,adult Start:10-Oct-2021 Instruction Type:Provider Instructions for Treatment How to Access Health Informa tion Online using Patient Portal and [employer] Apps Indication:BMI 26.0-26.9,adult Start:10-Oct-2021 Instruction Type:Patient Education Patient Instructions Indication:Non-smoker Start:19-Sep-2021 Instruction Type:Provider Instructions for Treatment How to Access Health Informa tion Online using Patient Portal and [employer] Apps Indication:Non-smoker Start:19-Sep-2021 Instruction Type:Patient Education Patient Instructions Indication:Non-smoker Start:14-Mar-2021 Instruction Type:Provider Instructions for Treatment How to Access Health Informa tion Online using Patient Portal and [employer] Apps Indication:Non-smoker Start:14-Mar-2021 Instruction Type:Patient Education How to Access Health Informa tion Online using Patient Portal and [employer] Apps Indication:Non-smoker Start:18-Sep-2020 Instruction Type:Patient Education Patient Instructions Indication:Non-smoker Start:18-Sep-2020 Instruction Type:Provider Instructions for Treatment Patient Instructions Indication:Non-smoker Start:15-Jul-2020 Instruction Type:Provider Instructions for Treatment How to Access Health Informa tion Online using Patient Portal and [employer] Apps Indication:Non-smoker Start:15-Jul-2020 Instruction Type:Patient Education Patient Instructions Indication:BMI 26.0-26.9,adult Start:08-Jul-2020 Instruction Type:Provider Instructions for Treatment How to Access Health Informa tion Online using Patient Portal and [employer] Apps Indication:BMI 26.0-26.9,adult Start:08-Jul-2020 Instruction Type:Patient Education Patient Instructions Indication:Non-smoker Start:04-Jul-2020 Instruction Type:Provider Instructions for Treatment How to Access Health Informa tion Online using Patient Portal and [employer] Apps Indication:Non-smoker Start:04-Jul-2020 Instruction Type:Patient Education How to Access Health Informa tion Online using Patient Portal and [employer] Apps Indication:Non-smoker Start:03-Jul-2020 Instruction Type:Patient Education Patient Instructions Indication:Non-smoker Start:03-Jul-2020 Instruction Type:Provider Instructions for Treatment Patient Instructions Indication:Non-smoker Start:01-Jul-2020 Instruction Type:Provider Instructions for Treatment How to Access Health Informa tion Online using Patient Portal and [employer] Apps Indication:Non-smoker Start:01-Jul-2020 Instruction Type:Patient Education Patient Instructions Indication:Non-smoker Start:28-Jun-2020 Instruction Type:Provider Instructions for Treatment How to Access Health Informa tion Online using Patient Portal and [employer] Apps Indication:Non-smoker Start:28-Jun-2020 Instruction Type:Patient Education How to Access Health Informa tion Online using Patient Portal and [employer] Apps Indication:Non-smoker Start:12-Apr-2020 Instruction Type:Patient Education Patient Instructions Indication:Non-smoker Start:12-Apr-2020 Instruction Type:Provider Instructions for Treatment How to access health informa tion online Indication:Non-smoker Start:18-Mar-2020 Instruction Type:Patient Education How to access health informa tion online - Detail Indication:Non-smoker Start:18-Mar-2020 Instruction Type:Patient Education Patient Instructions Indication:Non-smoker Start:18-Mar-2020 Instruction Type:Provider Instructions for Treatment How to access health informa tion online Indication:Non-smoker Start:04-Mar-2020 Instruction Type:Patient Education How to access health informa tion online - Detail Indication:Non-smoker Start:04-Mar-2020 Instruction Type:Patient Education Patient Instructions Indication:Allergic rhinitis Start:04-Mar-2020 Instruction Type:Provider Instructions for Treatment How to access health informa tion online Indication:Non-smoker Start:29-Feb-2020 Instruction Type:Patient Education How to access health informa tion online - Detail Indication:Non-smoker Start:29-Feb-2020 Instruction Type:Patient Education Patient Instructions Indication:Non-smoker Start:29-Feb-2020 Instruction Type:Provider Instructions for Treatment How to access health informa tion online Indication:BMI 24.0-24.9, adult Start:29-Feb-2020 Instruction Type:Patient Education How to access health informa tion online - Detail Indication:BMI 24.0-24.9, adult Start:29-Feb-2020 Instruction Type:Patient Education Patient Instructions Indication:BMI 24.0-24.9, adult Start:29-Feb-2020 Instruction Type:Provider Instructions for Treatment How to access health informa tion online Indication:BMI 25.0-25.9,adult Start:22-Feb-2020 Instruction Type:Patient Education How to access health informa tion online - Detail Indication:BMI 25.0-25.9,adult Start:22-Feb-2020 Instruction Type:Patient Education Patient Instructions Indication:BMI 25.0-25.9,adult Start:22-Feb-2020 Instruction Type:Provider Instructions for Treatment How to access health informa tion online Indication:BMI 25.0-25.9,adult Start:05-Feb-2020 Instruction Type:Patient Education How to access health informa tion online - Detail Indication:BMI 25.0-25.9,adult Start:05-Feb-2020 Instruction Type:Patient Education Patient Instructions Indication:BMI 25.0-25.9,adult Start:05-Feb-2020 Instruction Type:Provider Instructions for Treatment How to access health informa tion online Indication:Non-smoker Start:14-Dec-2019 Instruction Type:Patient Education How to access health informa tion online - Detail Indication:Non-smoker Start:14-Dec-2019 Instruction Type:Patient Education Patient Instructions Indication:Non-smoker Start:14-Dec-2019 Instruction Type:Provider Instructions for Treatment How to access health informa tion online Indication:Non-smoker Start:08-Nov-2019 Instruction Type:Patient Education How to access health informa tion online - Detail Indication:Non-smoker Start:08-Nov-2019 Instruction Type:Patient Education Patient Instructions Indication:Non-smoker Start:08-Nov-2019 Instruction Type:Provider Instructions for Treatment How to access health informa tion online Indication:Non-smoker Start:30-Oct-2019 Instruction Type:Patient Education How to access health informa tion online - Detail Indication:Non-smoker Start:30-Oct-2019 Instruction Type:Patient Education Patient Instructions Indication:Non-smoker Start:30-Oct-2019 Instruction Type:Provider Instructions for Treatment How to access health informa tion online Indication:BMI 25.0-25.9,adult Start:18-Oct-2019 Instruction Type:Patient Education How to access health informa tion online - Detail Indication:BMI 25.0-25.9,adult Start:18-Oct-2019 Instruction Type:Patient Education Patient Instructions Indication:BMI 25.0-25.9,adult Start:18-Oct-2019 Instruction Type:Provider Instructions for Treatment [facility]; [facility] Work Phone: Instructions* Name Dates Details Patient Instructions Indication:BMI 26.0-26.9,adult Start:16-Oct-2022 Instruction Type:Provider Instructions for Treatment How to Access Health Informa tion Online using Patient Portal and [employer]rd [employer] Apps Indication:BMI 26.0-26.9,adult Start:16-Oct-2022 Instruction Type:Patient Education Patient Instructions Indication:BMI 26.0-26.9,adult Start:02-Sep-2022 Instruction Type:Provider Instructions for Treatment How to Access Health Informa tion Online using Patient Portal and [employer]rd [employer] Apps Indication:BMI 26.0-26.9,adult Start:02-Sep-2022 Instruction Type:Patient Education Patient Instructions Indication:BMI 27.0-27.9,adult Start:19-Jun-2022 Instruction Type:Provider Instructions for Treatment How to Access Health Informa tion Online using Patient Portal and [employer]rd [employer] Apps Indication:BMI 27.0-27.9,adult Start:19-Jun-2022 Instruction Type:Patient Education Patient Instructions Indication:Non-smoker Start:27-May-2022 Instruction Type:Provider Instructions for Treatment How to Access Health Informa tion Online using Patient Portal and [employer]rd [employer] Apps Indication:Non-smoker Start:27-May-2022 Instruction Type:Patient Education Patient Instructions Indication:Non-smoker Start:02-Apr-2022 Instruction Type:Provider Instructions for Treatment How to Access Health Informa tion Online using Patient Portal and [employer]rd [employer] Apps Indication:Non-smoker Start:02-Apr-2022 Instruction Type:Patient Education Patient Instructions Indication:BMI 26.0-26.9,adult Start:13-Mar-2022 Instruction Type:Provider Instructions for Treatment How to Access Health Informa tion Online using Patient Portal and [employer] Apps Indication:BMI 26.0-26.9,adult Start:13-Mar-2022 Instruction Type:Patient Education Patient Instructions Indication:BMI 26.0-26.9,adult Start:10-Oct-2021 Instruction Type:Provider Instructions for Treatment How to Access Health Informa tion Online using Patient Portal and [employer]rd [employer] Apps Indication:BMI 26.0-26.9,adult Start:10-Oct-2021 Instruction Type:Patient Education Patient Instructions Indication:Non-smoker Start:19-Sep-2021 Instruction Type:Provider Instructions for Treatment How to Access Health Informa tion Online using Patient Portal and [employer]rd [employer] Apps Indication:Non-smoker Start:19-Sep-2021 Instruction Type:Patient Education Patient Instructions Indication:Non-smoker Start:14-Mar-2021 Instruction Type:Provider Instructions for Treatment How to Access Health Informa tion Online using Patient Portal and [employer]rd [employer] Apps Indication:Non-smoker Start:14-Mar-2021 Instruction Type:Patient Education How to Access Health Informa tion Online using Patient Portal and [employer] Apps Indication:Non-smoker Start:18-Sep-2020 Instruction Type:Patient Education Patient Instructions Indication:Non-smoker Start:18-Sep-2020 Instruction Type:Provider Instructions for Treatment Patient Instructions Indication:Non-smoker Start:15-Jul-2020 Instruction Type:Provider Instructions for Treatment How to Access Health Informa tion Online using Patient Portal and [employer]rd [employer] Apps Indication:Non-smoker Start:15-Jul-2020 Instruction Type:Patient Education Patient Instructions Indication:BMI 26.0-26.9,adult Start:08-Jul-2020 Instruction Type:Provider Instructions for Treatment How to Access Health Informa tion Online using Patient Portal and [employer]rd [employer] Apps Indication:BMI 26.0-26.9,adult Start:08-Jul-2020 Instruction Type:Patient Education Patient Instructions Indication:Non-smoker Start:04-Jul-2020 Instruction Type:Provider Instructions for Treatment How to Access Health Informa tion Online using Patient Portal and [employer]rd [employer] Apps Indication:Non-smoker Start:04-Jul-2020 Instruction Type:Patient Education How to Access Health Informa tion Online using Patient Portal and [employer]rd [employer] Apps Indication:Non-smoker Start:03-Jul-2020 Instruction Type:Patient Education Patient Instructions Indication:Non-smoker Start:03-Jul-2020 Instruction Type:Provider Instructions for Treatment Patient Instructions Indication:Non-smoker Start:01-Jul-2020 Instruction Type:Provider Instructions for Treatment How to Access Health Informa tion Online using Patient Portal and [employer]rd [employer] Apps Indication:Non-smoker Start:01-Jul-2020 Instruction Type:Patient Education Patient Instructions Indication:Non-smoker Start:28-Jun-2020 Instruction Type:Provider Instructions for Treatment How to Access Health Informa tion Online using Patient Portal and [employer]rd [employer] Apps Indication:Non-smoker Start:28-Jun-2020 Instruction Type:Patient Education How to Access Health Informa tion Online using Patient Portal and [employer] Apps Indication:Non-smoker Start:12-Apr-2020 Instruction Type:Patient Education Patient Instructions Indication:Non-smoker Start:12-Apr-2020 Instruction Type:Provider Instructions for Treatment How to access health informa tion online Indication:Non-smoker Start:18-Mar-2020 Instruction Type:Patient Education How to access health informa tion online - Detail Indication:Non-smoker Start:18-Mar-2020 Instruction Type:Patient Education Patient Instructions Indication:Non-smoker Start:18-Mar-2020 Instruction Type:Provider Instructions for Treatment How to access health informa tion online Indication:Non-smoker Start:04-Mar-2020 Instruction Type:Patient Education How to access health informa tion online - Detail Indication:Non-smoker Start:04-Mar-2020 Instruction Type:Patient Education Patient Instructions Indication:Allergic rhinitis Start:04-Mar-2020 Instruction Type:Provider Instructions for Treatment How to access health informa tion online Indication:Non-smoker Start:29-Feb-2020 Instruction Type:Patient Education How to access health informa tion online - Detail Indication:Non-smoker Start:29-Feb-2020 Instruction Type:Patient Education Patient Instructions Indication:Non-smoker Start:29-Feb-2020 Instruction Type:Provider Instructions for Treatment How to access health informa tion online Indication:BMI 24.0-24.9, adult Start:29-Feb-2020 Instruction Type:Patient Education How to access health informa tion online - Detail Indication:BMI 24.0-24.9, adult Start:29-Feb-2020 Instruction Type:Patient Education Patient Instructions Indication:BMI 24.0-24.9, adult Start:29-Feb-2020 Instruction Type:Provider Instructions for Treatment How to access health informa tion online Indication:BMI 25.0-25.9,adult Start:22-Feb-2020 Instruction Type:Patient Education How to access health informa tion online - Detail Indication:BMI 25.0-25.9,adult Start:22-Feb-2020 Instruction Type:Patient Education Patient Instructions Indication:BMI 25.0-25.9,adult Start:22-Feb-2020 Instruction Type:Provider Instructions for Treatment How to access health informa tion online Indication:BMI 25.0-25.9,adult Start:05-Feb-2020 Instruction Type:Patient Education How to access health informa tion online - Detail Indication:BMI 25.0-25.9,adult Start:05-Feb-2020 Instruction Type:Patient Education Patient Instructions Indication:BMI 25.0-25.9,adult Start:05-Feb-2020 Instruction Type:Provider Instructions for Treatment How to access health informa tion online Indication:Non-smoker Start:14-Dec-2019 Instruction Type:Patient Education How to access health informa tion online - Detail Indication:Non-smoker Start:14-Dec-2019 Instruction Type:Patient Education Patient Instructions Indication:Non-smoker Start:14-Dec-2019 Instruction Type:Provider Instructions for Treatment How to access health informa tion online Indication:Non-smoker Start:08-Nov-2019 Instruction Type:Patient Education How to access health informa tion online - Detail Indication:Non-smoker Start:08-Nov-2019 Instruction Type:Patient Education Patient Instructions Indication:Non-smoker Start:08-Nov-2019 Instruction Type:Provider Instructions for Treatment How to access health informa tion online Indication:Non-smoker Start:30-Oct-2019 Instruction Type:Patient Education How to access health informa tion online - Detail Indication:Non-smoker Start:30-Oct-2019 Instruction Type:Patient Education Patient Instructions Indication:Non-smoker Start:30-Oct-2019 Instruction Type:Provider Instructions for Treatment How to access health informa tion online Indication:BMI 25.0-25.9,adult Start:18-Oct-2019 Instruction Type:Patient Education How to access health informa tion online - Detail Indication:BMI 25.0-25.9,adult Start:18-Oct-2019 Instruction Type:Patient Education Patient Instructions Indication:BMI 25.0-25.9,adult Start:18-Oct-2019 Instruction Type:Provider Instructions for Treatment [facility]; [facility] Work Phone: Instructions* Name Dates Details Patient Instructions Indication:Non-smoker Start:26-Nov-2022 Instruction Type:Provider Instructions for Treatment How to Access Health Informa tion Online using Patient Portal and [employer]rd [employer] Apps Indication:Non-smoker Start:26-Nov-2022 Instruction Type:Patient Education Patient Instructions Indication:BMI 26.0-26.9,adult Start:16-Oct-2022 Instruction Type:Provider Instructions for Treatment How to Access Health Informa tion Online using Patient Portal and [employer]rd [employer] Apps Indication:BMI 26.0-26.9,adult Start:16-Oct-2022 Instruction Type:Patient Education Patient Instructions Indication:BMI 26.0-26.9,adult Start:02-Sep-2022 Instruction Type:Provider Instructions for Treatment How to Access Health Informa tion Online using Patient Portal and [employer]rd [employer] Apps Indication:BMI 26.0-26.9,adult Start:02-Sep-2022 Instruction Type:Patient Education Patient Instructions Indication:BMI 27.0-27.9,adult Start:19-Jun-2022 Instruction Type:Provider Instructions for Treatment How to Access Health Informa tion Online using Patient Portal and [employer]rd [employer] Apps Indication:BMI 27.0-27.9,adult Start:19-Jun-2022 Instruction Type:Patient Education Patient Instructions Indication:Non-smoker Start:27-May-2022 Instruction Type:Provider Instructions for Treatment How to Access Health Informa tion Online using Patient Portal and [employer]rd [employer] Apps Indication:Non-smoker Start:27-May-2022 Instruction Type:Patient Education Patient Instructions Indication:Non-smoker Start:02-Apr-2022 Instruction Type:Provider Instructions for Treatment How to Access Health Informa tion Online using Patient Portal and [employer]rd [employer] Apps Indication:Non-smoker Start:02-Apr-2022 Instruction Type:Patient Education Patient Instructions Indication:BMI 26.0-26.9,adult Start:13-Mar-2022 Instruction Type:Provider Instructions for Treatment How to Access Health Informa tion Online using Patient Portal and [employer]rd [employer] Apps Indication:BMI 26.0-26.9,adult Start:13-Mar-2022 Instruction Type:Patient Education Patient Instructions Indication:BMI 26.0-26.9,adult Start:10-Oct-2021 Instruction Type:Provider Instructions for Treatment How to Access Health Informa tion Online using Patient Portal and [employer]rd [employer] Apps Indication:BMI 26.0-26.9,adult Start:10-Oct-2021 Instruction Type:Patient Education Patient Instructions Indication:Non-smoker Start:19-Sep-2021 Instruction Type:Provider Instructions for Treatment How to Access Health Informa tion Online using Patient Portal and [employer]rd [employer] Apps Indication:Non-smoker Start:19-Sep-2021 Instruction Type:Patient Education Patient Instructions Indication:Non-smoker Start:14-Mar-2021 Instruction Type:Provider Instructions for Treatment How to Access Health Informa tion Online using Patient Portal and [employer]rd [employer] Apps Indication:Non-smoker Start:14-Mar-2021 Instruction Type:Patient Education How to Access Health Informa tion Online using Patient Portal and [employer]rd [employer] Apps Indication:Non-smoker Start:18-Sep-2020 Instruction Type:Patient Education Patient Instructions Indication:Non-smoker Start:18-Sep-2020 Instruction Type:Provider Instructions for Treatment Patient Instructions Indication:Non-smoker Start:15-Jul-2020 Instruction Type:Provider Instructions for Treatment How to Access Health Informa tion Online using Patient Portal and [employer]rd [employer] Apps Indication:Non-smoker Start:15-Jul-2020 Instruction Type:Patient Education Patient Instructions Indication:BMI 26.0-26.9,adult Start:08-Jul-2020 Instruction Type:Provider Instructions for Treatment How to Access Health Informa tion Online using Patient Portal and [employer]rd [employer] Apps Indication:BMI 26.0-26.9,adult Start:08-Jul-2020 Instruction Type:Patient Education Patient Instructions Indication:Non-smoker Start:04-Jul-2020 Instruction Type:Provider Instructions for Treatment How to Access Health Informa tion Online using Patient Portal and [employer]rd [employer] Apps Indication:Non-smoker Start:04-Jul-2020 Instruction Type:Patient Education How to Access Health Informa tion Online using Patient Portal and [employer]rd [employer] Apps Indication:Non-smoker Start:03-Jul-2020 Instruction Type:Patient Education Patient Instructions Indication:Non-smoker Start:03-Jul-2020 Instruction Type:Provider Instructions for Treatment Patient Instructions Indication:Non-smoker Start:01-Jul-2020 Instruction Type:Provider Instructions for Treatment How to Access Health Informa tion Online using Patient Portal and [employer]rd [employer] Apps Indication:Non-smoker Start:01-Jul-2020 Instruction Type:Patient Education Patient Instructions Indication:Non-smoker Start:28-Jun-2020 Instruction Type:Provider Instructions for Treatment How to Access Health Informa tion Online using Patient Portal and [employer]rd [employer] Apps Indication:Non-smoker Start:28-Jun-2020 Instruction Type:Patient Education How to Access Health Informa tion Online using Patient Portal and [employer]rd [employer] Apps Indication:Non-smoker Start:12-Apr-2020 Instruction Type:Patient Education Patient Instructions Indication:Non-smoker Start:12-Apr-2020 Instruction Type:Provider Instructions for Treatment How to access health informa tion online Indication:Non-smoker Start:18-Mar-2020 Instruction Type:Patient Education How to access health informa tion online - Detail Indication:Non-smoker Start:18-Mar-2020 Instruction Type:Patient Education Patient Instructions Indication:Non-smoker Start:18-Mar-2020 Instruction Type:Provider Instructions for Treatment How to access health informa tion online Indication:Non-smoker Start:04-Mar-2020 Instruction Type:Patient Education How to access health informa tion online - Detail Indication:Non-smoker Start:04-Mar-2020 Instruction Type:Patient Education Patient Instructions Indication:Allergic rhinitis Start:04-Mar-2020 Instruction Type:Provider Instructions for Treatment How to access health informa tion online Indication:Non-smoker Start:29-Feb-2020 Instruction Type:Patient Education How to access health informa tion online - Detail Indication:Non-smoker Start:29-Feb-2020 Instruction Type:Patient Education Patient Instructions Indication:Non-smoker Start:29-Feb-2020 Instruction Type:Provider Instructions for Treatment How to access health informa tion online Indication:BMI 24.0-24.9, adult Start:29-Feb-2020 Instruction Type:Patient Education How to access health informa tion online - Detail Indication:BMI 24.0-24.9, adult Start:29-Feb-2020 Instruction Type:Patient Education Patient Instructions Indication:BMI 24.0-24.9, adult Start:29-Feb-2020 Instruction Type:Provider Instructions for Treatment How to access health informa tion online Indication:BMI 25.0-25.9,adult Start:22-Feb-2020 Instruction Type:Patient Education How to access health informa tion online - Detail Indication:BMI 25.0-25.9,adult Start:22-Feb-2020 Instruction Type:Patient Education Patient Instructions Indication:BMI 25.0-25.9,adult Start:22-Feb-2020 Instruction Type:Provider Instructions for Treatment How to access health informa tion online Indication:BMI 25.0-25.9,adult Start:05-Feb-2020 Instruction Type:Patient Education How to access health informa tion online - Detail Indication:BMI 25.0-25.9,adult Start:05-Feb-2020 Instruction Type:Patient Education Patient Instructions Indication:BMI 25.0-25.9,adult Start:05-Feb-2020 Instruction Type:Provider Instructions for Treatment How to access health informa tion online Indication:Non-smoker Start:14-Dec-2019 Instruction Type:Patient Education How to access health informa tion online - Detail Indication:Non-smoker Start:14-Dec-2019 Instruction Type:Patient Education Patient Instructions Indication:Non-smoker Start:14-Dec-2019 Instruction Type:Provider Instructions for Treatment How to access health informa tion online Indication:Non-smoker Start:08-Nov-2019 Instruction Type:Patient Education How to access health informa tion online - Detail Indication:Non-smoker Start:08-Nov-2019 Instruction Type:Patient Education Patient Instructions Indication:Non-smoker Start:08-Nov-2019 Instruction Type:Provider Instructions for Treatment How to access health informa tion online Indication:Non-smoker Start:30-Oct-2019 Instruction Type:Patient Education How to access health informa tion online - Detail Indication:Non-smoker Start:30-Oct-2019 Instruction Type:Patient Education Patient Instructions Indication:Non-smoker Start:30-Oct-2019 Instruction Type:Provider Instructions for Treatment How to access health informa tion online Indication:BMI 25.0-25.9,adult Start:18-Oct-2019 Instruction Type:Patient Education How to access health informa tion online - Detail Indication:BMI 25.0-25.9,adult Start:18-Oct-2019 Instruction Type:Patient Education Patient Instructions Indication:BMI 25.0-25.9,adult Start:18-Oct-2019 Instruction Type:Provider Instructions for Treatment [facility]; [facility] Work Phone: Instructions* Name Dates Details Patient Instructions Indication:Non-smoker Start:26-Nov-2022 Instruction Type:Provider Instructions for Treatment How to Access Health Informa tion Online using Patient Portal and [employer]rd [employer] Apps Indication:Non-smoker Start:26-Nov-2022 Instruction Type:Patient Education Patient Instructions Indication:BMI 26.0-26.9,adult Start:16-Oct-2022 Instruction Type:Provider Instructions for Treatment How to Access Health Informa tion Online using Patient Portal and [employer]rd [employer] Apps Indication:BMI 26.0-26.9,adult Start:16-Oct-2022 Instruction Type:Patient Education Patient Instructions Indication:BMI 26.0-26.9,adult Start:02-Sep-2022 Instruction Type:Provider Instructions for Treatment How to Access Health Informa tion Online using Patient Portal and [employer]rd [employer] Apps Indication:BMI 26.0-26.9,adult Start:02-Sep-2022 Instruction Type:Patient Education Patient Instructions Indication:BMI 27.0-27.9,adult Start:19-Jun-2022 Instruction Type:Provider Instructions for Treatment How to Access Health Informa tion Online using Patient Portal and [employer]rd [employer] Apps Indication:BMI 27.0-27.9,adult Start:19-Jun-2022 Instruction Type:Patient Education Patient Instructions Indication:Non-smoker Start:27-May-2022 Instruction Type:Provider Instructions for Treatment How to Access Health Informa tion Online using Patient Portal and [employer]rd [employer] Apps Indication:Non-smoker Start:27-May-2022 Instruction Type:Patient Education Patient Instructions Indication:Non-smoker Start:02-Apr-2022 Instruction Type:Provider Instructions for Treatment How to Access Health Informa tion Online using Patient Portal and [employer]rd [employer] Apps Indication:Non-smoker Start:02-Apr-2022 Instruction Type:Patient Education Patient Instructions Indication:BMI 26.0-26.9,adult Start:13-Mar-2022 Instruction Type:Provider Instructions for Treatment How to Access Health Informa tion Online using Patient Portal and [employer]rd [employer] Apps Indication:BMI 26.0-26.9,adult Start:13-Mar-2022 Instruction Type:Patient Education Patient Instructions Indication:BMI 26.0-26.9,adult Start:10-Oct-2021 Instruction Type:Provider Instructions for Treatment How to Access Health Informa tion Online using Patient Portal and [employer]rd [employer] Apps Indication:BMI 26.0-26.9,adult Start:10-Oct-2021 Instruction Type:Patient Education Patient Instructions Indication:Non-smoker Start:19-Sep-2021 Instruction Type:Provider Instructions for Treatment How to Access Health Informa tion Online using Patient Portal and [employer]rd [employer] Apps Indication:Non-smoker Start:19-Sep-2021 Instruction Type:Patient Education Patient Instructions Indication:Non-smoker Start:14-Mar-2021 Instruction Type:Provider Instructions for Treatment How to Access Health Informa tion Online using Patient Portal and [employer]rd [employer] Apps Indication:Non-smoker Start:14-Mar-2021 Instruction Type:Patient Education How to Access Health Informa tion Online using Patient Portal and [employer]rd [employer] Apps Indication:Non-smoker Start:18-Sep-2020 Instruction Type:Patient Education Patient Instructions Indication:Non-smoker Start:18-Sep-2020 Instruction Type:Provider Instructions for Treatment Patient Instructions Indication:Non-smoker Start:15-Jul-2020 Instruction Type:Provider Instructions for Treatment How to Access Health Informa tion Online using Patient Portal and [employer]rd [employer] Apps Indication:Non-smoker Start:15-Jul-2020 Instruction Type:Patient Education Patient Instructions Indication:BMI 26.0-26.9,adult Start:08-Jul-2020 Instruction Type:Provider Instructions for Treatment How to Access Health Informa tion Online using Patient Portal and [employer]rd [employer] Apps Indication:BMI 26.0-26.9,adult Start:08-Jul-2020 Instruction Type:Patient Education Patient Instructions Indication:Non-smoker Start:04-Jul-2020 Instruction Type:Provider Instructions for Treatment How to Access Health Informa tion Online using Patient Portal and [employer]rd [employer] Apps Indication:Non-smoker Start:04-Jul-2020 Instruction Type:Patient Education How to Access Health Informa tion Online using Patient Portal and [employer]rd [employer] Apps Indication:Non-smoker Start:03-Jul-2020 Instruction Type:Patient Education Patient Instructions Indication:Non-smoker Start:03-Jul-2020 Instruction Type:Provider Instructions for Treatment Patient Instructions Indication:Non-smoker Start:01-Jul-2020 Instruction Type:Provider Instructions for Treatment How to Access Health Informa tion Online using Patient Portal and [employer]rd [employer] Apps Indication:Non-smoker Start:01-Jul-2020 Instruction Type:Patient Education Patient Instructions Indication:Non-smoker Start:28-Jun-2020 Instruction Type:Provider Instructions for Treatment How to Access Health Informa tion Online using Patient Portal and [employer]rd [employer] Apps Indication:Non-smoker Start:28-Jun-2020 Instruction Type:Patient Education How to Access Health Informa tion Online using Patient Portal and [employer]rd [employer] Apps Indication:Non-smoker Start:12-Apr-2020 Instruction Type:Patient Education Patient Instructions Indication:Non-smoker Start:12-Apr-2020 Instruction Type:Provider Instructions for Treatment How to access health informa tion online Indication:Non-smoker Start:18-Mar-2020 Instruction Type:Patient Education How to access health informa tion online - Detail Indication:Non-smoker Start:18-Mar-2020 Instruction Type:Patient Education Patient Instructions Indication:Non-smoker Start:18-Mar-2020 Instruction Type:Provider Instructions for Treatment How to access health informa tion online Indication:Non-smoker Start:04-Mar-2020 Instruction Type:Patient Education How to access health informa tion online - Detail Indication:Non-smoker Start:04-Mar-2020 Instruction Type:Patient Education Patient Instructions Indication:Allergic rhinitis Start:04-Mar-2020 Instruction Type:Provider Instructions for Treatment How to access health informa tion online Indication:Non-smoker Start:29-Feb-2020 Instruction Type:Patient Education How to access health informa tion online - Detail Indication:Non-smoker Start:29-Feb-2020 Instruction Type:Patient Education Patient Instructions Indication:Non-smoker Start:29-Feb-2020 Instruction Type:Provider Instructions for Treatment How to access health informa tion online Indication:BMI 24.0-24.9, adult Start:29-Feb-2020 Instruction Type:Patient Education How to access health informa tion online - Detail Indication:BMI 24.0-24.9, adult Start:29-Feb-2020 Instruction Type:Patient Education Patient Instructions Indication:BMI 24.0-24.9, adult Start:29-Feb-2020 Instruction Type:Provider Instructions for Treatment How to access health informa tion online Indication:BMI 25.0-25.9,adult Start:22-Feb-2020 Instruction Type:Patient Education How to access health informa tion online - Detail Indication:BMI 25.0-25.9,adult Start:22-Feb-2020 Instruction Type:Patient Education Patient Instructions Indication:BMI 25.0-25.9,adult Start:22-Feb-2020 Instruction Type:Provider Instructions for Treatment How to access health informa tion online Indication:BMI 25.0-25.9,adult Start:05-Feb-2020 Instruction Type:Patient Education How to access health informa tion online - Detail Indication:BMI 25.0-25.9,adult Start:05-Feb-2020 Instruction Type:Patient Education Patient Instructions Indication:BMI 25.0-25.9,adult Start:05-Feb-2020 Instruction Type:Provider Instructions for Treatment How to access health informa tion online Indication:Non-smoker Start:14-Dec-2019 Instruction Type:Patient Education How to access health informa tion online - Detail Indication:Non-smoker Start:14-Dec-2019 Instruction Type:Patient Education Patient Instructions Indication:Non-smoker Start:14-Dec-2019 Instruction Type:Provider Instructions for Treatment How to access health informa tion online Indication:Non-smoker Start:08-Nov-2019 Instruction Type:Patient Education How to access health informa tion online - Detail Indication:Non-smoker Start:08-Nov-2019 Instruction Type:Patient Education Patient Instructions Indication:Non-smoker Start:08-Nov-2019 Instruction Type:Provider Instructions for Treatment How to access health informa tion online Indication:Non-smoker Start:30-Oct-2019 Instruction Type:Patient Education How to access health informa tion online - Detail Indication:Non-smoker Start:30-Oct-2019 Instruction Type:Patient Education Patient Instructions Indication:Non-smoker Start:30-Oct-2019 Instruction Type:Provider Instructions for Treatment How to access health informa tion online Indication:BMI 25.0-25.9,adult Start:18-Oct-2019 Instruction Type:Patient Education How to access health informa tion online - Detail Indication:BMI 25.0-25.9,adult Start:18-Oct-2019 Instruction Type:Patient Education Patient Instructions Indication:BMI 25.0-25.9,adult Start:18-Oct-2019 Instruction Type:Provider Instructions for Treatment [facility]; [facility] Work Phone: Instructions* Name Dates Details Patient Instructions Indication:Non-smoker Start:26-Nov-2022 Instruction Type:Provider Instructions for Treatment How to Access Health Informa tion Online using Patient Portal and [employer]rd [employer] Apps Indication:Non-smoker Start:26-Nov-2022 Instruction Type:Patient Education Patient Instructions Indication:BMI 26.0-26.9,adult Start:16-Oct-2022 Instruction Type:Provider Instructions for Treatment How to Access Health Informa tion Online using Patient Portal and [employer]rd [employer] Apps Indication:BMI 26.0-26.9,adult Start:16-Oct-2022 Instruction Type:Patient Education Patient Instructions Indication:BMI 26.0-26.9,adult Start:02-Sep-2022 Instruction Type:Provider Instructions for Treatment How to Access Health Informa tion Online using Patient Portal and [employer]rd [employer] Apps Indication:BMI 26.0-26.9,adult Start:02-Sep-2022 Instruction Type:Patient Education Patient Instructions Indication:BMI 27.0-27.9,adult Start:19-Jun-2022 Instruction Type:Provider Instructions for Treatment How to Access Health Informa tion Online using Patient Portal and [employer]rd [employer] Apps Indication:BMI 27.0-27.9,adult Start:19-Jun-2022 Instruction Type:Patient Education Patient Instructions Indication:Non-smoker Start:27-May-2022 Instruction Type:Provider Instructions for Treatment How to Access Health Informa tion Online using Patient Portal and [employer]rd [employer] Apps Indication:Non-smoker Start:27-May-2022 Instruction Type:Patient Education Patient Instructions Indication:Non-smoker Start:02-Apr-2022 Instruction Type:Provider Instructions for Treatment How to Access Health Informa tion Online using Patient Portal and [employer]rd [employer] Apps Indication:Non-smoker Start:02-Apr-2022 Instruction Type:Patient Education Patient Instructions Indication:BMI 26.0-26.9,adult Start:13-Mar-2022 Instruction Type:Provider Instructions for Treatment How to Access Health Informa tion Online using Patient Portal and [employer]rd [employer] Apps Indication:BMI 26.0-26.9,adult Start:13-Mar-2022 Instruction Type:Patient Education Patient Instructions Indication:BMI 26.0-26.9,adult Start:10-Oct-2021 Instruction Type:Provider Instructions for Treatment How to Access Health Informa tion Online using Patient Portal and [employer]rd [employer] Apps Indication:BMI 26.0-26.9,adult Start:10-Oct-2021 Instruction Type:Patient Education Patient Instructions Indication:Non-smoker Start:19-Sep-2021 Instruction Type:Provider Instructions for Treatment How to Access Health Informa tion Online using Patient Portal and [employer]rd [employer] Apps Indication:Non-smoker Start:19-Sep-2021 Instruction Type:Patient Education Patient Instructions Indication:Non-smoker Start:14-Mar-2021 Instruction Type:Provider Instructions for Treatment How to Access Health Informa tion Online using Patient Portal and [employer]rd [employer] Apps Indication:Non-smoker Start:14-Mar-2021 Instruction Type:Patient Education How to Access Health Informa tion Online using Patient Portal and [employer]rd [employer] Apps Indication:Non-smoker Start:18-Sep-2020 Instruction Type:Patient Education Patient Instructions Indication:Non-smoker Start:18-Sep-2020 Instruction Type:Provider Instructions for Treatment Patient Instructions Indication:Non-smoker Start:15-Jul-2020 Instruction Type:Provider Instructions for Treatment How to Access Health Informa tion Online using Patient Portal and [employer]rd [employer] Apps Indication:Non-smoker Start:15-Jul-2020 Instruction Type:Patient Education Patient Instructions Indication:BMI 26.0-26.9,adult Start:08-Jul-2020 Instruction Type:Provider Instructions for Treatment How to Access Health Informa tion Online using Patient Portal and [employer]rd [employer] Apps Indication:BMI 26.0-26.9,adult Start:08-Jul-2020 Instruction Type:Patient Education Patient Instructions Indication:Non-smoker Start:04-Jul-2020 Instruction Type:Provider Instructions for Treatment How to Access Health Informa tion Online using Patient Portal and [employer]rd [employer] Apps Indication:Non-smoker Start:04-Jul-2020 Instruction Type:Patient Education How to Access Health Informa tion Online using Patient Portal and [employer]rd [employer] Apps Indication:Non-smoker Start:03-Jul-2020 Instruction Type:Patient Education Patient Instructions Indication:Non-smoker Start:03-Jul-2020 Instruction Type:Provider Instructions for Treatment Patient Instructions Indication:Non-smoker Start:01-Jul-2020 Instruction Type:Provider Instructions for Treatment How to Access Health Informa tion Online using Patient Portal and [employer]rd [employer] Apps Indication:Non-smoker Start:01-Jul-2020 Instruction Type:Patient Education Patient Instructions Indication:Non-smoker Start:28-Jun-2020 Instruction Type:Provider Instructions for Treatment How to Access Health Informa tion Online using Patient Portal and [employer]rd [employer] Apps Indication:Non-smoker Start:28-Jun-2020 Instruction Type:Patient Education How to Access Health Informa tion Online using Patient Portal and [employer]rd [employer] Apps Indication:Non-smoker Start:12-Apr-2020 Instruction Type:Patient Education Patient Instructions Indication:Non-smoker Start:12-Apr-2020 Instruction Type:Provider Instructions for Treatment How to access health informa tion online Indication:Non-smoker Start:18-Mar-2020 Instruction Type:Patient Education How to access health informa tion online - Detail Indication:Non-smoker Start:18-Mar-2020 Instruction Type:Patient Education Patient Instructions Indication:Non-smoker Start:18-Mar-2020 Instruction Type:Provider Instructions for Treatment How to access health informa tion online Indication:Non-smoker Start:04-Mar-2020 Instruction Type:Patient Education How to access health informa tion online - Detail Indication:Non-smoker Start:04-Mar-2020 Instruction Type:Patient Education Patient Instructions Indication:Allergic rhinitis Start:04-Mar-2020 Instruction Type:Provider Instructions for Treatment How to access health informa tion online Indication:Non-smoker Start:29-Feb-2020 Instruction Type:Patient Education How to access health informa tion online - Detail Indication:Non-smoker Start:29-Feb-2020 Instruction Type:Patient Education Patient Instructions Indication:Non-smoker Start:29-Feb-2020 Instruction Type:Provider Instructions for Treatment How to access health informa tion online Indication:BMI 24.0-24.9, adult Start:29-Feb-2020 Instruction Type:Patient Education How to access health informa tion online - Detail Indication:BMI 24.0-24.9, adult Start:29-Feb-2020 Instruction Type:Patient Education Patient Instructions Indication:BMI 24.0-24.9, adult Start:29-Feb-2020 Instruction Type:Provider Instructions for Treatment How to access health informa tion online Indication:BMI 25.0-25.9,adult Start:22-Feb-2020 Instruction Type:Patient Education How to access health informa tion online - Detail Indication:BMI 25.0-25.9,adult Start:22-Feb-2020 Instruction Type:Patient Education Patient Instructions Indication:BMI 25.0-25.9,adult Start:22-Feb-2020 Instruction Type:Provider Instructions for Treatment How to access health informa tion online Indication:BMI 25.0-25.9,adult Start:05-Feb-2020 Instruction Type:Patient Education How to access health informa tion online - Detail Indication:BMI 25.0-25.9,adult Start:05-Feb-2020 Instruction Type:Patient Education Patient Instructions Indication:BMI 25.0-25.9,adult Start:05-Feb-2020 Instruction Type:Provider Instructions for Treatment How to access health informa tion online Indication:Non-smoker Start:14-Dec-2019 Instruction Type:Patient Education How to access health informa tion online - Detail Indication:Non-smoker Start:14-Dec-2019 Instruction Type:Patient Education Patient Instructions Indication:Non-smoker Start:14-Dec-2019 Instruction Type:Provider Instructions for Treatment How to access health informa tion online Indication:Non-smoker Start:08-Nov-2019 Instruction Type:Patient Education How to access health informa tion online - Detail Indication:Non-smoker Start:08-Nov-2019 Instruction Type:Patient Education Patient Instructions Indication:Non-smoker Start:08-Nov-2019 Instruction Type:Provider Instructions for Treatment How to access health informa tion online Indication:Non-smoker Start:30-Oct-2019 Instruction Type:Patient Education How to access health informa tion online - Detail Indication:Non-smoker Start:30-Oct-2019 Instruction Type:Patient Education Patient Instructions Indication:Non-smoker Start:30-Oct-2019 Instruction Type:Provider Instructions for Treatment How to access health informa tion online Indication:BMI 25.0-25.9,adult Start:18-Oct-2019 Instruction Type:Patient Education How to access health informa tion online - Detail Indication:BMI 25.0-25.9,adult Start:18-Oct-2019 Instruction Type:Patient Education Patient Instructions Indication:BMI 25.0-25.9,adult Start:18-Oct-2019 Instruction Type:Provider Instructions for Treatment [facility] Work Phone: reason for referral (narrative)* Outpatient Procedure (Routine) - Closed Specialty Diagnoses / Procedures Referred By Contac t Referred [facility] Diagnoses Pre-op evaluation Procedures ECG COMPLETE ECG ROUTINE ECG W/LEAST 12 LDS W/I&R Allison Shankar PA-C [facility] [address] [address] [facility] [place] [facility] [place] [address] Referral ID Status Reason Start Date Expiration Date V isits Requested Visits Authorized [id number] Closed Auto-Generate d Referral 11/02/2022 11/02/2023 1 1 [facility]patient Procedure (Routine) - New Request Specialty Diagnoses / Procedures Referred By Little mike Referred To Contact [facility] Diagnoses Seizures (HCC) Procedures EPIL EEG LONG EEG EXTENDED MONITORING 61-119 MINUTES ELECTROENCEPHALOGRAM REC COMA/SLEEP ONLY Nena Smith APRN.CNP [address] [id number] [facility] [place] [address] [place] [address] Referral ID Status Reason Start Date Expiration Date Visits Requested Visits Authorized [id number] New Request Auto-Generat ed Referral 12/22/2023 12/21/2024 1 1 [facility]ative)No reason for referral [facility]: Reason for visit Narrative* MRI/CT (Routine) - Closed Specialty Diagnoses / Procedures Referred By Little mike Referred To Contact MR IMAGING Diagnoses Brain lesion Procedures MRI BRAIN WO/W IVCON MRI BRAIN BRAIN STEM W/O W/CONTRAST MATERIAL Codie Soto MD [address] [facility] [address] [place] [address] Phone: tel: fax: [facility] Referral ID Status Reason Start Date Expiration Date V isits Requested Visits Authorized [id number] Closed Auto-Generate d Referral 04/24/2024 05/24/2025 1 1 [facility] Summary Purpose Family History Relationship Condition Age at Onset Recorded Date/T yobany mother Coronary artery disease Unknown Cardiac disease Unknown Hypertension Unknown Myocardial infarction Unknown father Coronary artery disease Unknown Cerebrovascular accident (CVA) Unknown Advance Directives Advance Directive Response Recorded Date/ Time Living Will No October 08, 2021 4 :25pm Power of Salsa Dance Instructor No October 08, 2021 4:25pm Advance Directive Response Recorded Date/ Time Living Will No October 08, 2021 3 :25pm Power of Salsa Dance Instructor No October 08, 2021 3:25pm Advance Directive Response Recorded Date/ Time Living Will No June 02 5:12am Power of Salsa Dance Instructor No June 02, 2022 5:12am Advance Directive Response Recorded Date/ Time Living Will No June 02 7:36am Power of Salsa Dance Instructor No June 02, 2022 7:36am Advance Directive Response Recorded Date/ Time Living Will No June 08 12:43pm Power of Salsa Dance Instructor No June 08, 2022 12:43pm Advance Directive Response Recorded Date/ Time Living Will No June 08 9:43pm Power of Salsa Dance Instructor No June 08, 2022 9:43pm Advance Directive Response Recorded Date/ Time Living Will No June 08 10:43pm Power of Salsa Dance Instructor No June 08, 2022 10:43pm Advance Directive Response Recorded Date/ Time Living Will No June 08 10:43pm Do you have a Healthcare Power of Salsa Dance Instructor? No June 08, 2022 10:43pm Instructions Name Dates Details How to access health informa tion online Indication:Non-smoker Start:30-Oct-2019 Instruction Type:Patient Education How to access health informa tion online - Detail Indication:Non-smoker Start:30-Oct-2019 Instruction Type:Patient Education Patient Instructions Indication:Non-smoker Start:30-Oct-2019 Instruction Type:Provider Instructions for Treatment How to access health informa tion online Indication:BMI 25.0-25.9,adult Start:18-Oct-2019 Instruction Type:Patient Education How to access health informa tion online - Detail Indication:BMI 25.0-25.9,adult Start:18-Oct-2019 Instruction Type:Patient Education Patient Instructions Indication:BMI 25.0-25.9,adult Start:18-Oct-2019 Instruction Type:Provider Instructions for Treatment Name Dates Details How to access health informa tion online Indication:Non-smoker Start:08-Nov-2019 Instruction Type:Patient Education How to access health informa tion online - Detail Indication:Non-smoker Start:08-Nov-2019 Instruction Type:Patient Education Patient Instructions Indication:Non-smoker Start:08-Nov-2019 Instruction Type:Provider Instructions for Treatment How to access health informa tion online Indication:Non-smoker Start:30-Oct-2019 Instruction Type:Patient Education How to access health informa tion online - Detail Indication:Non-smoker Start:30-Oct-2019 Instruction Type:Patient Education Patient Instructions Indication:Non-smoker Start:30-Oct-2019 Instruction Type:Provider Instructions for Treatment How to access health informa tion online Indication:BMI 25.0-25.9,adult Start:18-Oct-2019 Instruction Type:Patient Education How to access health informa tion online - Detail Indication:BMI 25.0-25.9,adult Start:18-Oct-2019 Instruction Type:Patient Education Patient Instructions Indication:BMI 25.0-25.9,adult Start:18-Oct-2019 Instruction Type:Provider Instructions for Treatment Name Dates Details How to access health informa tion online Indication:Non-smoker Start:08-Nov-2019 Instruction Type:Patient Education How to access health informa tion online - Detail Indication:Non-smoker Start:08-Nov-2019 Instruction Type:Patient Education Patient Instructions Indication:Non-smoker Start:08-Nov-2019 Instruction Type:Provider Instructions for Treatment How to access health informa tion online Indication:Non-smoker Start:30-Oct-2019 Instruction Type:Patient Education How to access health informa tion online - Detail Indication:Non-smoker Start:30-Oct-2019 Instruction Type:Patient Education Patient Instructions Indication:Non-smoker Start:30-Oct-2019 Instruction Type:Provider Instructions for Treatment How to access health informa tion online Indication:BMI 25.0-25.9,adult Start:18-Oct-2019 Instruction Type:Patient Education How to access health informa tion online - Detail Indication:BMI 25.0-25.9,adult Start:18-Oct-2019 Instruction Type:Patient Education Patient Instructions Indication:BMI 25.0-25.9,adult Start:18-Oct-2019 Instruction Type:Provider Instructions for Treatment Name Dates Details How to access health informa tion online Indication:Non-smoker Start:08-Nov-2019 Instruction Type:Patient Education How to access health informa tion online - Detail Indication:Non-smoker Start:08-Nov-2019 Instruction Type:Patient Education Patient Instructions Indication:Non-smoker Start:08-Nov-2019 Instruction Type:Provider Instructions for Treatment How to access health informa tion online Indication:Non-smoker Start:30-Oct-2019 Instruction Type:Patient Education How to access health informa tion online - Detail Indication:Non-smoker Start:30-Oct-2019 Instruction Type:Patient Education Patient Instructions Indication:Non-smoker Start:30-Oct-2019 Instruction Type:Provider Instructions for Treatment How to access health informa tion online Indication:BMI 25.0-25.9,adult Start:18-Oct-2019 Instruction Type:Patient Education How to access health informa tion online - Detail Indication:BMI 25.0-25.9,adult Start:18-Oct-2019 Instruction Type:Patient Education Patient Instructions Indication:BMI 25.0-25.9,adult Start:18-Oct-2019 Instruction Type:Provider Instructions for Treatment Name Dates Details How to access health informa tion online Indication:Non-smoker Start:14-Dec-2019 Instruction Type:Patient Education How to access health informa tion online - Detail Indication:Non-smoker Start:14-Dec-2019 Instruction Type:Patient Education Patient Instructions Indication:Non-smoker Start:14-Dec-2019 Instruction Type:Provider Instructions for Treatment How to access health informa tion online Indication:Non-smoker Start:08-Nov-2019 Instruction Type:Patient Education How to access health informa tion online - Detail Indication:Non-smoker Start:08-Nov-2019 Instruction Type:Patient Education Patient Instructions Indication:Non-smoker Start:08-Nov-2019 Instruction Type:Provider Instructions for Treatment How to access health informa tion online Indication:Non-smoker Start:30-Oct-2019 Instruction Type:Patient Education How to access health informa tion online - Detail Indication:Non-smoker Start:30-Oct-2019 Instruction Type:Patient Education Patient Instructions Indication:Non-smoker Start:30-Oct-2019 Instruction Type:Provider Instructions for Treatment How to access health informa tion online Indication:BMI 25.0-25.9,adult Start:18-Oct-2019 Instruction Type:Patient Education How to access health informa tion online - Detail Indication:BMI 25.0-25.9,adult Start:18-Oct-2019 Instruction Type:Patient Education Patient Instructions Indication:BMI 25.0-25.9,adult Start:18-Oct-2019 Instruction Type:Provider Instructions for Treatment Name Dates Details How to access health informa tion online Indication:Non-smoker Start:14-Dec-2019 Instruction Type:Patient Education How to access health informa tion online - Detail Indication:Non-smoker Start:14-Dec-2019 Instruction Type:Patient Education Patient Instructions Indication:Non-smoker Start:14-Dec-2019 Instruction Type:Provider Instructions for Treatment How to access health informa tion online Indication:Non-smoker Start:08-Nov-2019 Instruction Type:Patient Education How to access health informa tion online - Detail Indication:Non-smoker Start:08-Nov-2019 Instruction Type:Patient Education Patient Instructions Indication:Non-smoker Start:08-Nov-2019 Instruction Type:Provider Instructions for Treatment How to access health informa tion online Indication:Non-smoker Start:30-Oct-2019 Instruction Type:Patient Education How to access health informa tion online - Detail Indication:Non-smoker Start:30-Oct-2019 Instruction Type:Patient Education Patient Instructions Indication:Non-smoker Start:30-Oct-2019 Instruction Type:Provider Instructions for Treatment How to access health informa tion online Indication:BMI 25.0-25.9,adult Start:18-Oct-2019 Instruction Type:Patient Education How to access health informa tion online - Detail Indication:BMI 25.0-25.9,adult Start:18-Oct-2019 Instruction Type:Patient Education Patient Instructions Indication:BMI 25.0-25.9,adult Start:18-Oct-2019 Instruction Type:Provider Instructions for Treatment Name Dates Details How to access health informa tion online Indication:Non-smoker Start:14-Dec-2019 Instruction Type:Patient Education How to access health informa tion online - Detail Indication:Non-smoker Start:14-Dec-2019 Instruction Type:Patient Education Patient Instructions Indication:Non-smoker Start:14-Dec-2019 Instruction Type:Provider Instructions for Treatment How to access health informa tion online Indication:Non-smoker Start:08-Nov-2019 Instruction Type:Patient Education How to access health informa tion online - Detail Indication:Non-smoker Start:08-Nov-2019 Instruction Type:Patient Education Patient Instructions Indication:Non-smoker Start:08-Nov-2019 Instruction Type:Provider Instructions for Treatment How to access health informa tion online Indication:Non-smoker Start:30-Oct-2019 Instruction Type:Patient Education How to access health informa tion online - Detail Indication:Non-smoker Start:30-Oct-2019 Instruction Type:Patient Education Patient Instructions Indication:Non-smoker Start:30-Oct-2019 Instruction Type:Provider Instructions for Treatment How to access health informa tion online Indication:BMI 25.0-25.9,adult Start:18-Oct-2019 Instruction Type:Patient Education How to access health informa tion online - Detail Indication:BMI 25.0-25.9,adult Start:18-Oct-2019 Instruction Type:Patient Education Patient Instructions Indication:BMI 25.0-25.9,adult Start:18-Oct-2019 Instruction Type:Provider Instructions for Treatment Name Dates Details How to access health informa tion online Indication:BMI 25.0-25.9,adult Start:05-Feb-2020 Instruction Type:Patient Education How to access health informa tion online - Detail Indication:BMI 25.0-25.9,adult Start:05-Feb-2020 Instruction Type:Patient Education Patient Instructions Indication:BMI 25.0-25.9,adult Start:05-Feb-2020 Instruction Type:Provider Instructions for Treatment How to access health informa tion online Indication:Non-smoker Start:14-Dec-2019 Instruction Type:Patient Education How to access health informa tion online - Detail Indication:Non-smoker Start:14-Dec-2019 Instruction Type:Patient Education Patient Instructions Indication:Non-smoker Start:14-Dec-2019 Instruction Type:Provider Instructions for Treatment How to access health informa tion online Indication:Non-smoker Start:08-Nov-2019 Instruction Type:Patient Education How to access health informa tion online - Detail Indication:Non-smoker Start:08-Nov-2019 Instruction Type:Patient Education Patient Instructions Indication:Non-smoker Start:08-Nov-2019 Instruction Type:Provider Instructions for Treatment How to access health informa tion online Indication:Non-smoker Start:30-Oct-2019 Instruction Type:Patient Education How to access health informa tion online - Detail Indication:Non-smoker Start:30-Oct-2019 Instruction Type:Patient Education Patient Instructions Indication:Non-smoker Start:30-Oct-2019 Instruction Type:Provider Instructions for Treatment How to access health informa tion online Indication:BMI 25.0-25.9,adult Start:18-Oct-2019 Instruction Type:Patient Education How to access health informa tion online - Detail Indication:BMI 25.0-25.9,adult Start:18-Oct-2019 Instruction Type:Patient Education Patient Instructions Indication:BMI 25.0-25.9,adult Start:18-Oct-2019 Instruction Type:Provider Instructions for Treatment Name Dates Details How to access health informa tion online Indication:BMI 25.0-25.9,adult Start:05-Feb-2020 Instruction Type:Patient Education How to access health informa tion online - Detail Indication:BMI 25.0-25.9,adult Start:05-Feb-2020 Instruction Type:Patient Education Patient Instructions Indication:BMI 25.0-25.9,adult Start:05-Feb-2020 Instruction Type:Provider Instructions for Treatment How to access health informa tion online Indication:Non-smoker Start:14-Dec-2019 Instruction Type:Patient Education How to access health informa tion online - Detail Indication:Non-smoker Start:14-Dec-2019 Instruction Type:Patient Education Patient Instructions Indication:Non-smoker Start:14-Dec-2019 Instruction Type:Provider Instructions for Treatment How to access health informa tion online Indication:Non-smoker Start:08-Nov-2019 Instruction Type:Patient Education How to access health informa tion online - Detail Indication:Non-smoker Start:08-Nov-2019 Instruction Type:Patient Education Patient Instructions Indication:Non-smoker Start:08-Nov-2019 Instruction Type:Provider Instructions for Treatment How to access health informa tion online Indication:Non-smoker Start:30-Oct-2019 Instruction Type:Patient Education How to access health informa tion online - Detail Indication:Non-smoker Start:30-Oct-2019 Instruction Type:Patient Education Patient Instructions Indication:Non-smoker Start:30-Oct-2019 Instruction Type:Provider Instructions for Treatment How to access health informa tion online Indication:BMI 25.0-25.9,adult Start:18-Oct-2019 Instruction Type:Patient Education How to access health informa tion online - Detail Indication:BMI 25.0-25.9,adult Start:18-Oct-2019 Instruction Type:Patient Education Patient Instructions Indication:BMI 25.0-25.9,adult Start:18-Oct-2019 Instruction Type:Provider Instructions for Treatment Name Dates Details How to access health informa tion online Indication:BMI 25.0-25.9,adult Start:05-Feb-2020 Instruction Type:Patient Education How to access health informa tion online - Detail Indication:BMI 25.0-25.9,adult Start:05-Feb-2020 Instruction Type:Patient Education Patient Instructions Indication:BMI 25.0-25.9,adult Start:05-Feb-2020 Instruction Type:Provider Instructions for Treatment How to access health informa tion online Indication:Non-smoker Start:14-Dec-2019 Instruction Type:Patient Education How to access health informa tion online - Detail Indication:Non-smoker Start:14-Dec-2019 Instruction Type:Patient Education Patient Instructions Indication:Non-smoker Start:14-Dec-2019 Instruction Type:Provider Instructions for Treatment How to access health informa tion online Indication:Non-smoker Start:08-Nov-2019 Instruction Type:Patient Education How to access health informa tion online - Detail Indication:Non-smoker Start:08-Nov-2019 Instruction Type:Patient Education Patient Instructions Indication:Non-smoker Start:08-Nov-2019 Instruction Type:Provider Instructions for Treatment How to access health informa tion online Indication:Non-smoker Start:30-Oct-2019 Instruction Type:Patient Education How to access health informa tion online - Detail Indication:Non-smoker Start:30-Oct-2019 Instruction Type:Patient Education Patient Instructions Indication:Non-smoker Start:30-Oct-2019 Instruction Type:Provider Instructions for Treatment How to access health informa tion online Indication:BMI 25.0-25.9,adult Start:18-Oct-2019 Instruction Type:Patient Education How to access health informa tion online - Detail Indication:BMI 25.0-25.9,adult Start:18-Oct-2019 Instruction Type:Patient Education Patient Instructions Indication:BMI 25.0-25.9,adult Start:18-Oct-2019 Instruction Type:Provider Instructions for Treatment Name Dates Details How to access health informa tion online Indication:BMI 25.0-25.9,adult Start:22-Feb-2020 Instruction Type:Patient Education How to access health informa tion online - Detail Indication:BMI 25.0-25.9,adult Start:22-Feb-2020 Instruction Type:Patient Education Patient Instructions Indication:BMI 25.0-25.9,adult Start:22-Feb-2020 Instruction Type:Provider Instructions for Treatment How to access health informa tion online Indication:BMI 25.0-25.9,adult Start:05-Feb-2020 Instruction Type:Patient Education How to access health informa tion online - Detail Indication:BMI 25.0-25.9,adult Start:05-Feb-2020 Instruction Type:Patient Education Patient Instructions Indication:BMI 25.0-25.9,adult Start:05-Feb-2020 Instruction Type:Provider Instructions for Treatment How to access health informa tion online Indication:Non-smoker Start:14-Dec-2019 Instruction Type:Patient Education How to access health informa tion online - Detail Indication:Non-smoker Start:14-Dec-2019 Instruction Type:Patient Education Patient Instructions Indication:Non-smoker Start:14-Dec-2019 Instruction Type:Provider Instructions for Treatment How to access health informa tion online Indication:Non-smoker Start:08-Nov-2019 Instruction Type:Patient Education How to access health informa tion online - Detail Indication:Non-smoker Start:08-Nov-2019 Instruction Type:Patient Education Patient Instructions Indication:Non-smoker Start:08-Nov-2019 Instruction Type:Provider Instructions for Treatment How to access health informa tion online Indication:Non-smoker Start:30-Oct-2019 Instruction Type:Patient Education How to access health informa tion online - Detail Indication:Non-smoker Start:30-Oct-2019 Instruction Type:Patient Education Patient Instructions Indication:Non-smoker Start:30-Oct-2019 Instruction Type:Provider Instructions for Treatment How to access health informa tion online Indication:BMI 25.0-25.9,adult Start:18-Oct-2019 Instruction Type:Patient Education How to access health informa tion online - Detail Indication:BMI 25.0-25.9,adult Start:18-Oct-2019 Instruction Type:Patient Education Patient Instructions Indication:BMI 25.0-25.9,adult Start:18-Oct-2019 Instruction Type:Provider Instructions for Treatment Name Dates Details How to access health informa tion online Indication:BMI 25.0-25.9,adult Start:22-Feb-2020 Instruction Type:Patient Education How to access health informa tion online - Detail Indication:BMI 25.0-25.9,adult Start:22-Feb-2020 Instruction Type:Patient Education Patient Instructions Indication:BMI 25.0-25.9,adult Start:22-Feb-2020 Instruction Type:Provider Instructions for Treatment How to access health informa tion online Indication:BMI 25.0-25.9,adult Start:05-Feb-2020 Instruction Type:Patient Education How to access health informa tion online - Detail Indication:BMI 25.0-25.9,adult Start:05-Feb-2020 Instruction Type:Patient Education Patient Instructions Indication:BMI 25.0-25.9,adult Start:05-Feb-2020 Instruction Type:Provider Instructions for Treatment How to access health informa tion online Indication:Non-smoker Start:14-Dec-2019 Instruction Type:Patient Education How to access health informa tion online - Detail Indication:Non-smoker Start:14-Dec-2019 Instruction Type:Patient Education Patient Instructions Indication:Non-smoker Start:14-Dec-2019 Instruction Type:Provider Instructions for Treatment How to access health informa tion online Indication:Non-smoker Start:08-Nov-2019 Instruction Type:Patient Education How to access health informa tion online - Detail Indication:Non-smoker Start:08-Nov-2019 Instruction Type:Patient Education Patient Instructions Indication:Non-smoker Start:08-Nov-2019 Instruction Type:Provider Instructions for Treatment How to access health informa tion online Indication:Non-smoker Start:30-Oct-2019 Instruction Type:Patient Education How to access health informa tion online - Detail Indication:Non-smoker Start:30-Oct-2019 Instruction Type:Patient Education Patient Instructions Indication:Non-smoker Start:30-Oct-2019 Instruction Type:Provider Instructions for Treatment How to access health informa tion online Indication:BMI 25.0-25.9,adult Start:18-Oct-2019 Instruction Type:Patient Education How to access health informa tion online - Detail Indication:BMI 25.0-25.9,adult Start:18-Oct-2019 Instruction Type:Patient Education Patient Instructions Indication:BMI 25.0-25.9,adult Start:18-Oct-2019 Instruction Type:Provider Instructions for Treatment Name Dates Details How to access health informa tion online Indication:Non-smoker Start:29-Feb-2020 Instruction Type:Patient Education How to access health informa tion online - Detail Indication:Non-smoker Start:29-Feb-2020 Instruction Type:Patient Education Patient Instructions Indication:Non-smoker Start:29-Feb-2020 Instruction Type:Provider Instructions for Treatment How to access health informa tion online Indication:BMI 24.0-24.9, adult Start:29-Feb-2020 Instruction Type:Patient Education How to access health informa tion online - Detail Indication:BMI 24.0-24.9, adult Start:29-Feb-2020 Instruction Type:Patient Education Patient Instructions Indication:BMI 24.0-24.9, adult Start:29-Feb-2020 Instruction Type:Provider Instructions for Treatment How to access health informa tion online Indication:BMI 25.0-25.9,adult Start:22-Feb-2020 Instruction Type:Patient Education How to access health informa tion online - Detail Indication:BMI 25.0-25.9,adult Start:22-Feb-2020 Instruction Type:Patient Education Patient Instructions Indication:BMI 25.0-25.9,adult Start:22-Feb-2020 Instruction Type:Provider Instructions for Treatment How to access health informa tion online Indication:BMI 25.0-25.9,adult Start:05-Feb-2020 Instruction Type:Patient Education How to access health informa tion online - Detail Indication:BMI 25.0-25.9,adult Start:05-Feb-2020 Instruction Type:Patient Education Patient Instructions Indication:BMI 25.0-25.9,adult Start:05-Feb-2020 Instruction Type:Provider Instructions for Treatment How to access health informa tion online Indication:Non-smoker Start:14-Dec-2019 Instruction Type:Patient Education How to access health informa tion online - Detail Indication:Non-smoker Start:14-Dec-2019 Instruction Type:Patient Education Patient Instructions Indication:Non-smoker Start:14-Dec-2019 Instruction Type:Provider Instructions for Treatment How to access health informa tion online Indication:Non-smoker Start:08-Nov-2019 Instruction Type:Patient Education How to access health informa tion online - Detail Indication:Non-smoker Start:08-Nov-2019 Instruction Type:Patient Education Patient Instructions Indication:Non-smoker Start:08-Nov-2019 Instruction Type:Provider Instructions for Treatment How to access health informa tion online Indication:Non-smoker Start:30-Oct-2019 Instruction Type:Patient Education How to access health informa tion online - Detail Indication:Non-smoker Start:30-Oct-2019 Instruction Type:Patient Education Patient Instructions Indication:Non-smoker Start:30-Oct-2019 Instruction Type:Provider Instructions for Treatment How to access health informa tion online Indication:BMI 25.0-25.9,adult Start:18-Oct-2019 Instruction Type:Patient Education How to access health informa tion online - Detail Indication:BMI 25.0-25.9,adult Start:18-Oct-2019 Instruction Type:Patient Education Patient Instructions Indication:BMI 25.0-25.9,adult Start:18-Oct-2019 Instruction Type:Provider Instructions for Treatment Name Dates Details How to access health informa tion online Indication:Non-smoker Start:04-Mar-2020 Instruction Type:Patient Education How to access health informa tion online - Detail Indication:Non-smoker Start:04-Mar-2020 Instruction Type:Patient Education Patient Instructions Indication:Allergic rhinitis Start:04-Mar-2020 Instruction Type:Provider Instructions for Treatment How to access health informa tion online Indication:Non-smoker Start:29-Feb-2020 Instruction Type:Patient Education How to access health informa tion online - Detail Indication:Non-smoker Start:29-Feb-2020 Instruction Type:Patient Education Patient Instructions Indication:Non-smoker Start:29-Feb-2020 Instruction Type:Provider Instructions for Treatment How to access health informa tion online Indication:BMI 24.0-24.9, adult Start:29-Feb-2020 Instruction Type:Patient Education How to access health informa tion online - Detail Indication:BMI 24.0-24.9, adult Start:29-Feb-2020 Instruction Type:Patient Education Patient Instructions Indication:BMI 24.0-24.9, adult Start:29-Feb-2020 Instruction Type:Provider Instructions for Treatment How to access health informa tion online Indication:BMI 25.0-25.9,adult Start:22-Feb-2020 Instruction Type:Patient Education How to access health informa tion online - Detail Indication:BMI 25.0-25.9,adult Start:22-Feb-2020 Instruction Type:Patient Education Patient Instructions Indication:BMI 25.0-25.9,adult Start:22-Feb-2020 Instruction Type:Provider Instructions for Treatment How to access health informa tion online Indication:BMI 25.0-25.9,adult Start:05-Feb-2020 Instruction Type:Patient Education How to access health informa tion online - Detail Indication:BMI 25.0-25.9,adult Start:05-Feb-2020 Instruction Type:Patient Education Patient Instructions Indication:BMI 25.0-25.9,adult Start:05-Feb-2020 Instruction Type:Provider Instructions for Treatment How to access health informa tion online Indication:Non-smoker Start:14-Dec-2019 Instruction Type:Patient Education How to access health informa tion online - Detail Indication:Non-smoker Start:14-Dec-2019 Instruction Type:Patient Education Patient Instructions Indication:Non-smoker Start:14-Dec-2019 Instruction Type:Provider Instructions for Treatment How to access health informa tion online Indication:Non-smoker Start:08-Nov-2019 Instruction Type:Patient Education How to access health informa tion online - Detail Indication:Non-smoker Start:08-Nov-2019 Instruction Type:Patient Education Patient Instructions Indication:Non-smoker Start:08-Nov-2019 Instruction Type:Provider Instructions for Treatment How to access health informa tion online Indication:Non-smoker Start:30-Oct-2019 Instruction Type:Patient Education How to access health informa tion online - Detail Indication:Non-smoker Start:30-Oct-2019 Instruction Type:Patient Education Patient Instructions Indication:Non-smoker Start:30-Oct-2019 Instruction Type:Provider Instructions for Treatment How to access health informa tion online Indication:BMI 25.0-25.9,adult Start:18-Oct-2019 Instruction Type:Patient Education How to access health informa tion online - Detail Indication:BMI 25.0-25.9,adult Start:18-Oct-2019 Instruction Type:Patient Education Patient Instructions Indication:BMI 25.0-25.9,adult Start:18-Oct-2019 Instruction Type:Provider Instructions for Treatment Name Dates Details How to access health informa tion online Indication:Non-smoker Start:04-Mar-2020 Instruction Type:Patient Education How to access health informa tion online - Detail Indication:Non-smoker Start:04-Mar-2020 Instruction Type:Patient Education Patient Instructions Indication:Allergic rhinitis Start:04-Mar-2020 Instruction Type:Provider Instructions for Treatment How to access health informa tion online Indication:Non-smoker Start:29-Feb-2020 Instruction Type:Patient Education How to access health informa tion online - Detail Indication:Non-smoker Start:29-Feb-2020 Instruction Type:Patient Education Patient Instructions Indication:Non-smoker Start:29-Feb-2020 Instruction Type:Provider Instructions for Treatment How to access health informa tion online Indication:BMI 24.0-24.9, adult Start:29-Feb-2020 Instruction Type:Patient Education How to access health informa tion online - Detail Indication:BMI 24.0-24.9, adult Start:29-Feb-2020 Instruction Type:Patient Education Patient Instructions Indication:BMI 24.0-24.9, adult Start:29-Feb-2020 Instruction Type:Provider Instructions for Treatment How to access health informa tion online Indication:BMI 25.0-25.9,adult Start:22-Feb-2020 Instruction Type:Patient Education How to access health informa tion online - Detail Indication:BMI 25.0-25.9,adult Start:22-Feb-2020 Instruction Type:Patient Education Patient Instructions Indication:BMI 25.0-25.9,adult Start:22-Feb-2020 Instruction Type:Provider Instructions for Treatment How to access health informa tion online Indication:BMI 25.0-25.9,adult Start:05-Feb-2020 Instruction Type:Patient Education How to access health informa tion online - Detail Indication:BMI 25.0-25.9,adult Start:05-Feb-2020 Instruction Type:Patient Education Patient Instructions Indication:BMI 25.0-25.9,adult Start:05-Feb-2020 Instruction Type:Provider Instructions for Treatment How to access health informa tion online Indication:Non-smoker Start:14-Dec-2019 Instruction Type:Patient Education How to access health informa tion online - Detail Indication:Non-smoker Start:14-Dec-2019 Instruction Type:Patient Education Patient Instructions Indication:Non-smoker Start:14-Dec-2019 Instruction Type:Provider Instructions for Treatment How to access health informa tion online Indication:Non-smoker Start:08-Nov-2019 Instruction Type:Patient Education How to access health informa tion online - Detail Indication:Non-smoker Start:08-Nov-2019 Instruction Type:Patient Education Patient Instructions Indication:Non-smoker Start:08-Nov-2019 Instruction Type:Provider Instructions for Treatment How to access health informa tion online Indication:Non-smoker Start:30-Oct-2019 Instruction Type:Patient Education How to access health informa tion online - Detail Indication:Non-smoker Start:30-Oct-2019 Instruction Type:Patient Education Patient Instructions Indication:Non-smoker Start:30-Oct-2019 Instruction Type:Provider Instructions for Treatment How to access health informa tion online Indication:BMI 25.0-25.9,adult Start:18-Oct-2019 Instruction Type:Patient Education How to access health informa tion online - Detail Indication:BMI 25.0-25.9,adult Start:18-Oct-2019 Instruction Type:Patient Education Patient Instructions Indication:BMI 25.0-25.9,adult Start:18-Oct-2019 Instruction Type:Provider Instructions for Treatment Name Dates Details How to access health informa tion online Indication:Non-smoker Start:18-Mar-2020 Instruction Type:Patient Education How to access health informa tion online - Detail Indication:Non-smoker Start:18-Mar-2020 Instruction Type:Patient Education Patient Instructions Indication:Non-smoker Start:18-Mar-2020 Instruction Type:Provider Instructions for Treatment How to access health informa tion online Indication:Non-smoker Start:04-Mar-2020 Instruction Type:Patient Education How to access health informa tion online - Detail Indication:Non-smoker Start:04-Mar-2020 Instruction Type:Patient Education Patient Instructions Indication:Allergic rhinitis Start:04-Mar-2020 Instruction Type:Provider Instructions for Treatment How to access health informa tion online Indication:Non-smoker Start:29-Feb-2020 Instruction Type:Patient Education How to access health informa tion online - Detail Indication:Non-smoker Start:29-Feb-2020 Instruction Type:Patient Education Patient Instructions Indication:Non-smoker Start:29-Feb-2020 Instruction Type:Provider Instructions for Treatment How to access health informa tion online Indication:BMI 24.0-24.9, adult Start:29-Feb-2020 Instruction Type:Patient Education How to access health informa tion online - Detail Indication:BMI 24.0-24.9, adult Start:29-Feb-2020 Instruction Type:Patient Education Patient Instructions Indication:BMI 24.0-24.9, adult Start:29-Feb-2020 Instruction Type:Provider Instructions for Treatment How to access health informa tion online Indication:BMI 25.0-25.9,adult Start:22-Feb-2020 Instruction Type:Patient Education How to access health informa tion online - Detail Indication:BMI 25.0-25.9,adult Start:22-Feb-2020 Instruction Type:Patient Education Patient Instructions Indication:BMI 25.0-25.9,adult Start:22-Feb-2020 Instruction Type:Provider Instructions for Treatment How to access health informa tion online Indication:BMI 25.0-25.9,adult Start:05-Feb-2020 Instruction Type:Patient Education How to access health informa tion online - Detail Indication:BMI 25.0-25.9,adult Start:05-Feb-2020 Instruction Type:Patient Education Patient Instructions Indication:BMI 25.0-25.9,adult Start:05-Feb-2020 Instruction Type:Provider Instructions for Treatment How to access health informa tion online Indication:Non-smoker Start:14-Dec-2019 Instruction Type:Patient Education How to access health informa tion online - Detail Indication:Non-smoker Start:14-Dec-2019 Instruction Type:Patient Education Patient Instructions Indication:Non-smoker Start:14-Dec-2019 Instruction Type:Provider Instructions for Treatment How to access health informa tion online Indication:Non-smoker Start:08-Nov-2019 Instruction Type:Patient Education How to access health informa tion online - Detail Indication:Non-smoker Start:08-Nov-2019 Instruction Type:Patient Education Patient Instructions Indication:Non-smoker Start:08-Nov-2019 Instruction Type:Provider Instructions for Treatment How to access health informa tion online Indication:Non-smoker Start:30-Oct-2019 Instruction Type:Patient Education How to access health informa tion online - Detail Indication:Non-smoker Start:30-Oct-2019 Instruction Type:Patient Education Patient Instructions Indication:Non-smoker Start:30-Oct-2019 Instruction Type:Provider Instructions for Treatment How to access health informa tion online Indication:BMI 25.0-25.9,adult Start:18-Oct-2019 Instruction Type:Patient Education How to access health informa tion online - Detail Indication:BMI 25.0-25.9,adult Start:18-Oct-2019 Instruction Type:Patient Education Patient Instructions Indication:BMI 25.0-25.9,adult Start:18-Oct-2019 Instruction Type:Provider Instructions for Treatment Name Dates Details How to access health informa tion online Indication:Non-smoker Start:18-Mar-2020 Instruction Type:Patient Education How to access health informa tion online - Detail Indication:Non-smoker Start:18-Mar-2020 Instruction Type:Patient Education Patient Instructions Indication:Non-smoker Start:18-Mar-2020 Instruction Type:Provider Instructions for Treatment How to access health informa tion online Indication:Non-smoker Start:04-Mar-2020 Instruction Type:Patient Education How to access health informa tion online - Detail Indication:Non-smoker Start:04-Mar-2020 Instruction Type:Patient Education Patient Instructions Indication:Allergic rhinitis Start:04-Mar-2020 Instruction Type:Provider Instructions for Treatment How to access health informa tion online Indication:Non-smoker Start:29-Feb-2020 Instruction Type:Patient Education How to access health informa tion online - Detail Indication:Non-smoker Start:29-Feb-2020 Instruction Type:Patient Education Patient Instructions Indication:Non-smoker Start:29-Feb-2020 Instruction Type:Provider Instructions for Treatment How to access health informa tion online Indication:BMI 24.0-24.9, adult Start:29-Feb-2020 Instruction Type:Patient Education How to access health informa tion online - Detail Indication:BMI 24.0-24.9, adult Start:29-Feb-2020 Instruction Type:Patient Education Patient Instructions Indication:BMI 24.0-24.9, adult Start:29-Feb-2020 Instruction Type:Provider Instructions for Treatment How to access health informa tion online Indication:BMI 25.0-25.9,adult Start:22-Feb-2020 Instruction Type:Patient Education How to access health informa tion online - Detail Indication:BMI 25.0-25.9,adult Start:22-Feb-2020 Instruction Type:Patient Education Patient Instructions Indication:BMI 25.0-25.9,adult Start:22-Feb-2020 Instruction Type:Provider Instructions for Treatment How to access health informa tion online Indication:BMI 25.0-25.9,adult Start:05-Feb-2020 Instruction Type:Patient Education How to access health informa tion online - Detail Indication:BMI 25.0-25.9,adult Start:05-Feb-2020 Instruction Type:Patient Education Patient Instructions Indication:BMI 25.0-25.9,adult Start:05-Feb-2020 Instruction Type:Provider Instructions for Treatment How to access health informa tion online Indication:Non-smoker Start:14-Dec-2019 Instruction Type:Patient Education How to access health informa tion online - Detail Indication:Non-smoker Start:14-Dec-2019 Instruction Type:Patient Education Patient Instructions Indication:Non-smoker Start:14-Dec-2019 Instruction Type:Provider Instructions for Treatment How to access health informa tion online Indication:Non-smoker Start:08-Nov-2019 Instruction Type:Patient Education How to access health informa tion online - Detail Indication:Non-smoker Start:08-Nov-2019 Instruction Type:Patient Education Patient Instructions Indication:Non-smoker Start:08-Nov-2019 Instruction Type:Provider Instructions for Treatment How to access health informa tion online Indication:Non-smoker Start:30-Oct-2019 Instruction Type:Patient Education How to access health informa tion online - Detail Indication:Non-smoker Start:30-Oct-2019 Instruction Type:Patient Education Patient Instructions Indication:Non-smoker Start:30-Oct-2019 Instruction Type:Provider Instructions for Treatment How to access health informa tion online Indication:BMI 25.0-25.9,adult Start:18-Oct-2019 Instruction Type:Patient Education How to access health informa tion online - Detail Indication:BMI 25.0-25.9,adult Start:18-Oct-2019 Instruction Type:Patient Education Patient Instructions Indication:BMI 25.0-25.9,adult Start:18-Oct-2019 Instruction Type:Provider Instructions for Treatment Name Dates Details How to Access Health Informa tion Online using Patient Portal and [employer]rd [employer] Apps Indication:Non-smoker Start:12-Apr-2020 Instruction Type:Patient Education Patient Instructions Indication:Non-smoker Start:12-Apr-2020 Instruction Type:Provider Instructions for Treatment How to access health informa tion online Indication:Non-smoker Start:18-Mar-2020 Instruction Type:Patient Education How to access health informa tion online - Detail Indication:Non-smoker Start:18-Mar-2020 Instruction Type:Patient Education Patient Instructions Indication:Non-smoker Start:18-Mar-2020 Instruction Type:Provider Instructions for Treatment How to access health informa tion online Indication:Non-smoker Start:04-Mar-2020 Instruction Type:Patient Education How to access health informa tion online - Detail Indication:Non-smoker Start:04-Mar-2020 Instruction Type:Patient Education Patient Instructions Indication:Allergic rhinitis Start:04-Mar-2020 Instruction Type:Provider Instructions for Treatment How to access health informa tion online Indication:Non-smoker Start:29-Feb-2020 Instruction Type:Patient Education How to access health informa tion online - Detail Indication:Non-smoker Start:29-Feb-2020 Instruction Type:Patient Education Patient Instructions Indication:Non-smoker Start:29-Feb-2020 Instruction Type:Provider Instructions for Treatment How to access health informa tion online Indication:BMI 24.0-24.9, adult Start:29-Feb-2020 Instruction Type:Patient Education How to access health informa tion online - Detail Indication:BMI 24.0-24.9, adult Start:29-Feb-2020 Instruction Type:Patient Education Patient Instructions Indication:BMI 24.0-24.9, adult Start:29-Feb-2020 Instruction Type:Provider Instructions for Treatment How to access health informa tion online Indication:BMI 25.0-25.9,adult Start:22-Feb-2020 Instruction Type:Patient Education How to access health informa tion online - Detail Indication:BMI 25.0-25.9,adult Start:22-Feb-2020 Instruction Type:Patient Education Patient Instructions Indication:BMI 25.0-25.9,adult Start:22-Feb-2020 Instruction Type:Provider Instructions for Treatment How to access health informa tion online Indication:BMI 25.0-25.9,adult Start:05-Feb-2020 Instruction Type:Patient Education How to access health informa tion online - Detail Indication:BMI 25.0-25.9,adult Start:05-Feb-2020 Instruction Type:Patient Education Patient Instructions Indication:BMI 25.0-25.9,adult Start:05-Feb-2020 Instruction Type:Provider Instructions for Treatment How to access health informa tion online Indication:Non-smoker Start:14-Dec-2019 Instruction Type:Patient Education How to access health informa tion online - Detail Indication:Non-smoker Start:14-Dec-2019 Instruction Type:Patient Education Patient Instructions Indication:Non-smoker Start:14-Dec-2019 Instruction Type:Provider Instructions for Treatment How to access health informa tion online Indication:Non-smoker Start:08-Nov-2019 Instruction Type:Patient Education How to access health informa tion online - Detail Indication:Non-smoker Start:08-Nov-2019 Instruction Type:Patient Education Patient Instructions Indication:Non-smoker Start:08-Nov-2019 Instruction Type:Provider Instructions for Treatment How to access health informa tion online Indication:Non-smoker Start:30-Oct-2019 Instruction Type:Patient Education How to access health informa tion online - Detail Indication:Non-smoker Start:30-Oct-2019 Instruction Type:Patient Education Patient Instructions Indication:Non-smoker Start:30-Oct-2019 Instruction Type:Provider Instructions for Treatment How to access health informa tion online Indication:BMI 25.0-25.9,adult Start:18-Oct-2019 Instruction Type:Patient Education How to access health informa tion online - Detail Indication:BMI 25.0-25.9,adult Start:18-Oct-2019 Instruction Type:Patient Education Patient Instructions Indication:BMI 25.0-25.9,adult Start:18-Oct-2019 Instruction Type:Provider Instructions for Treatment Name Dates Details How to Access Health Informa tion Online using Patient Portal and [employer] Apps Indication:Non-smoker Start:12-Apr-2020 Instruction Type:Patient Education Patient Instructions Indication:Non-smoker Start:12-Apr-2020 Instruction Type:Provider Instructions for Treatment How to access health informa tion online Indication:Non-smoker Start:18-Mar-2020 Instruction Type:Patient Education How to access health informa tion online - Detail Indication:Non-smoker Start:18-Mar-2020 Instruction Type:Patient Education Patient Instructions Indication:Non-smoker Start:18-Mar-2020 Instruction Type:Provider Instructions for Treatment How to access health informa tion online Indication:Non-smoker Start:04-Mar-2020 Instruction Type:Patient Education How to access health informa tion online - Detail Indication:Non-smoker Start:04-Mar-2020 Instruction Type:Patient Education Patient Instructions Indication:Allergic rhinitis Start:04-Mar-2020 Instruction Type:Provider Instructions for Treatment How to access health informa tion online Indication:Non-smoker Start:29-Feb-2020 Instruction Type:Patient Education How to access health informa tion online - Detail Indication:Non-smoker Start:29-Feb-2020 Instruction Type:Patient Education Patient Instructions Indication:Non-smoker Start:29-Feb-2020 Instruction Type:Provider Instructions for Treatment How to access health informa tion online Indication:BMI 24.0-24.9, adult Start:29-Feb-2020 Instruction Type:Patient Education How to access health informa tion online - Detail Indication:BMI 24.0-24.9, adult Start:29-Feb-2020 Instruction Type:Patient Education Patient Instructions Indication:BMI 24.0-24.9, adult Start:29-Feb-2020 Instruction Type:Provider Instructions for Treatment How to access health informa tion online Indication:BMI 25.0-25.9,adult Start:22-Feb-2020 Instruction Type:Patient Education How to access health informa tion online - Detail Indication:BMI 25.0-25.9,adult Start:22-Feb-2020 Instruction Type:Patient Education Patient Instructions Indication:BMI 25.0-25.9,adult Start:22-Feb-2020 Instruction Type:Provider Instructions for Treatment How to access health informa tion online Indication:BMI 25.0-25.9,adult Start:05-Feb-2020 Instruction Type:Patient Education How to access health informa tion online - Detail Indication:BMI 25.0-25.9,adult Start:05-Feb-2020 Instruction Type:Patient Education Patient Instructions Indication:BMI 25.0-25.9,adult Start:05-Feb-2020 Instruction Type:Provider Instructions for Treatment How to access health informa tion online Indication:Non-smoker Start:14-Dec-2019 Instruction Type:Patient Education How to access health informa tion online - Detail Indication:Non-smoker Start:14-Dec-2019 Instruction Type:Patient Education Patient Instructions Indication:Non-smoker Start:14-Dec-2019 Instruction Type:Provider Instructions for Treatment How to access health informa tion online Indication:Non-smoker Start:08-Nov-2019 Instruction Type:Patient Education How to access health informa tion online - Detail Indication:Non-smoker Start:08-Nov-2019 Instruction Type:Patient Education Patient Instructions Indication:Non-smoker Start:08-Nov-2019 Instruction Type:Provider Instructions for Treatment How to access health informa tion online Indication:Non-smoker Start:30-Oct-2019 Instruction Type:Patient Education How to access health informa tion online - Detail Indication:Non-smoker Start:30-Oct-2019 Instruction Type:Patient Education Patient Instructions Indication:Non-smoker Start:30-Oct-2019 Instruction Type:Provider Instructions for Treatment How to access health informa tion online Indication:BMI 25.0-25.9,adult Start:18-Oct-2019 Instruction Type:Patient Education How to access health informa tion online - Detail Indication:BMI 25.0-25.9,adult Start:18-Oct-2019 Instruction Type:Patient Education Patient Instructions Indication:BMI 25.0-25.9,adult Start:18-Oct-2019 Instruction Type:Provider Instructions for Treatment Name Dates Details How to access health informa tion online Indication:BMI 25.0-25.9,adult Start:22-Feb-2020 Instruction Type:Patient Education How to access health informa tion online - Detail Indication:BMI 25.0-25.9,adult Start:22-Feb-2020 Instruction Type:Patient Education Patient Instructions Indication:BMI 25.0-25.9,adult Start:22-Feb-2020 Instruction Type:Provider Instructions for Treatment How to access health informa tion online Indication:BMI 25.0-25.9,adult Start:05-Feb-2020 Instruction Type:Patient Education How to access health informa tion online - Detail Indication:BMI 25.0-25.9,adult Start:05-Feb-2020 Instruction Type:Patient Education Patient Instructions Indication:BMI 25.0-25.9,adult Start:05-Feb-2020 Instruction Type:Provider Instructions for Treatment How to access health informa tion online Indication:Non-smoker Start:14-Dec-2019 Instruction Type:Patient Education How to access health informa tion online - Detail Indication:Non-smoker Start:14-Dec-2019 Instruction Type:Patient Education Patient Instructions Indication:Non-smoker Start:14-Dec-2019 Instruction Type:Provider Instructions for Treatment How to access health informa tion online Indication:Non-smoker Start:08-Nov-2019 Instruction Type:Patient Education How to access health informa tion online - Detail Indication:Non-smoker Start:08-Nov-2019 Instruction Type:Patient Education Patient Instructions Indication:Non-smoker Start:08-Nov-2019 Instruction Type:Provider Instructions for Treatment How to access health informa tion online Indication:Non-smoker Start:30-Oct-2019 Instruction Type:Patient Education How to access health informa tion online - Detail Indication:Non-smoker Start:30-Oct-2019 Instruction Type:Patient Education Patient Instructions Indication:Non-smoker Start:30-Oct-2019 Instruction Type:Provider Instructions for Treatment How to access health informa tion online Indication:BMI 25.0-25.9,adult Start:18-Oct-2019 Instruction Type:Patient Education How to access health informa tion online - Detail Indication:BMI 25.0-25.9,adult Start:18-Oct-2019 Instruction Type:Patient Education Patient Instructions Indication:BMI 25.0-25.9,adult Start:18-Oct-2019 Instruction Type:Provider Instructions for Treatment Name Dates Details How to Access Health Informa tion Online using Patient Portal and [employer] Apps Indication:Non-smoker Start:12-Apr-2020 Instruction Type:Patient Education Patient Instructions Indication:Non-smoker Start:12-Apr-2020 Instruction Type:Provider Instructions for Treatment How to access health informa tion online Indication:Non-smoker Start:18-Mar-2020 Instruction Type:Patient Education How to access health informa tion online - Detail Indication:Non-smoker Start:18-Mar-2020 Instruction Type:Patient Education Patient Instructions Indication:Non-smoker Start:18-Mar-2020 Instruction Type:Provider Instructions for Treatment How to access health informa tion online Indication:Non-smoker Start:04-Mar-2020 Instruction Type:Patient Education How to access health informa tion online - Detail Indication:Non-smoker Start:04-Mar-2020 Instruction Type:Patient Education Patient Instructions Indication:Allergic rhinitis Start:04-Mar-2020 Instruction Type:Provider Instructions for Treatment How to access health informa tion online Indication:Non-smoker Start:29-Feb-2020 Instruction Type:Patient Education How to access health informa tion online - Detail Indication:Non-smoker Start:29-Feb-2020 Instruction Type:Patient Education Patient Instructions Indication:Non-smoker Start:29-Feb-2020 Instruction Type:Provider Instructions for Treatment How to access health informa tion online Indication:BMI 24.0-24.9, adult Start:29-Feb-2020 Instruction Type:Patient Education How to access health informa tion online - Detail Indication:BMI 24.0-24.9, adult Start:29-Feb-2020 Instruction Type:Patient Education Patient Instructions Indication:BMI 24.0-24.9, adult Start:29-Feb-2020 Instruction Type:Provider Instructions for Treatment How to access health informa tion online Indication:BMI 25.0-25.9,adult Start:22-Feb-2020 Instruction Type:Patient Education How to access health informa tion online - Detail Indication:BMI 25.0-25.9,adult Start:22-Feb-2020 Instruction Type:Patient Education Patient Instructions Indication:BMI 25.0-25.9,adult Start:22-Feb-2020 Instruction Type:Provider Instructions for Treatment How to access health informa tion online Indication:BMI 25.0-25.9,adult Start:05-Feb-2020 Instruction Type:Patient Education How to access health informa tion online - Detail Indication:BMI 25.0-25.9,adult Start:05-Feb-2020 Instruction Type:Patient Education Patient Instructions Indication:BMI 25.0-25.9,adult Start:05-Feb-2020 Instruction Type:Provider Instructions for Treatment How to access health informa tion online Indication:Non-smoker Start:14-Dec-2019 Instruction Type:Patient Education How to access health informa tion online - Detail Indication:Non-smoker Start:14-Dec-2019 Instruction Type:Patient Education Patient Instructions Indication:Non-smoker Start:14-Dec-2019 Instruction Type:Provider Instructions for Treatment How to access health informa tion online Indication:Non-smoker Start:08-Nov-2019 Instruction Type:Patient Education How to access health informa tion online - Detail Indication:Non-smoker Start:08-Nov-2019 Instruction Type:Patient Education Patient Instructions Indication:Non-smoker Start:08-Nov-2019 Instruction Type:Provider Instructions for Treatment How to access health informa tion online Indication:Non-smoker Start:30-Oct-2019 Instruction Type:Patient Education How to access health informa tion online - Detail Indication:Non-smoker Start:30-Oct-2019 Instruction Type:Patient Education Patient Instructions Indication:Non-smoker Start:30-Oct-2019 Instruction Type:Provider Instructions for Treatment How to access health informa tion online Indication:BMI 25.0-25.9,adult Start:18-Oct-2019 Instruction Type:Patient Education How to access health informa tion online - Detail Indication:BMI 25.0-25.9,adult Start:18-Oct-2019 Instruction Type:Patient Education Patient Instructions Indication:BMI 25.0-25.9,adult Start:18-Oct-2019 Instruction Type:Provider Instructions for Treatment Name Dates Details How to Access Health Informa tion Online using Patient Portal and [employer] Apps Indication:Non-smoker Start:12-Apr-2020 Instruction Type:Patient Education Patient Instructions Indication:Non-smoker Start:12-Apr-2020 Instruction Type:Provider Instructions for Treatment How to access health informa tion online Indication:Non-smoker Start:18-Mar-2020 Instruction Type:Patient Education How to access health informa tion online - Detail Indication:Non-smoker Start:18-Mar-2020 Instruction Type:Patient Education Patient Instructions Indication:Non-smoker Start:18-Mar-2020 Instruction Type:Provider Instructions for Treatment How to access health informa tion online Indication:Non-smoker Start:04-Mar-2020 Instruction Type:Patient Education How to access health informa tion online - Detail Indication:Non-smoker Start:04-Mar-2020 Instruction Type:Patient Education Patient Instructions Indication:Allergic rhinitis Start:04-Mar-2020 Instruction Type:Provider Instructions for Treatment How to access health informa tion online Indication:Non-smoker Start:29-Feb-2020 Instruction Type:Patient Education How to access health informa tion online - Detail Indication:Non-smoker Start:29-Feb-2020 Instruction Type:Patient Education Patient Instructions Indication:Non-smoker Start:29-Feb-2020 Instruction Type:Provider Instructions for Treatment How to access health informa tion online Indication:BMI 24.0-24.9, adult Start:29-Feb-2020 Instruction Type:Patient Education How to access health informa tion online - Detail Indication:BMI 24.0-24.9, adult Start:29-Feb-2020 Instruction Type:Patient Education Patient Instructions Indication:BMI 24.0-24.9, adult Start:29-Feb-2020 Instruction Type:Provider Instructions for Treatment How to access health informa tion online Indication:BMI 25.0-25.9,adult Start:22-Feb-2020 Instruction Type:Patient Education How to access health informa tion online - Detail Indication:BMI 25.0-25.9,adult Start:22-Feb-2020 Instruction Type:Patient Education Patient Instructions Indication:BMI 25.0-25.9,adult Start:22-Feb-2020 Instruction Type:Provider Instructions for Treatment How to access health informa tion online Indication:BMI 25.0-25.9,adult Start:05-Feb-2020 Instruction Type:Patient Education How to access health informa tion online - Detail Indication:BMI 25.0-25.9,adult Start:05-Feb-2020 Instruction Type:Patient Education Patient Instructions Indication:BMI 25.0-25.9,adult Start:05-Feb-2020 Instruction Type:Provider Instructions for Treatment How to access health informa tion online Indication:Non-smoker Start:14-Dec-2019 Instruction Type:Patient Education How to access health informa tion online - Detail Indication:Non-smoker Start:14-Dec-2019 Instruction Type:Patient Education Patient Instructions Indication:Non-smoker Start:14-Dec-2019 Instruction Type:Provider Instructions for Treatment How to access health informa tion online Indication:Non-smoker Start:08-Nov-2019 Instruction Type:Patient Education How to access health informa tion online - Detail Indication:Non-smoker Start:08-Nov-2019 Instruction Type:Patient Education Patient Instructions Indication:Non-smoker Start:08-Nov-2019 Instruction Type:Provider Instructions for Treatment How to access health informa tion online Indication:Non-smoker Start:30-Oct-2019 Instruction Type:Patient Education How to access health informa tion online - Detail Indication:Non-smoker Start:30-Oct-2019 Instruction Type:Patient Education Patient Instructions Indication:Non-smoker Start:30-Oct-2019 Instruction Type:Provider Instructions for Treatment How to access health informa tion online Indication:BMI 25.0-25.9,adult Start:18-Oct-2019 Instruction Type:Patient Education How to access health informa tion online - Detail Indication:BMI 25.0-25.9,adult Start:18-Oct-2019 Instruction Type:Patient Education Patient Instructions Indication:BMI 25.0-25.9,adult Start:18-Oct-2019 Instruction Type:Provider Instructions for Treatment Name Dates Details Patient Instructions Indication:Non-smoker Start:28-Jun-2020 Instruction Type:Provider Instructions for Treatment How to Access Health Informa tion Online using Patient Portal and [employer] Apps Indication:Non-smoker Start:28-Jun-2020 Instruction Type:Patient Education How to Access Health Informa tion Online using Patient Portal and [employer] Apps Indication:Non-smoker Start:12-Apr-2020 Instruction Type:Patient Education Patient Instructions Indication:Non-smoker Start:12-Apr-2020 Instruction Type:Provider Instructions for Treatment How to access health informa tion online Indication:Non-smoker Start:18-Mar-2020 Instruction Type:Patient Education How to access health informa tion online - Detail Indication:Non-smoker Start:18-Mar-2020 Instruction Type:Patient Education Patient Instructions Indication:Non-smoker Start:18-Mar-2020 Instruction Type:Provider Instructions for Treatment How to access health informa tion online Indication:Non-smoker Start:04-Mar-2020 Instruction Type:Patient Education How to access health informa tion online - Detail Indication:Non-smoker Start:04-Mar-2020 Instruction Type:Patient Education Patient Instructions Indication:Allergic rhinitis Start:04-Mar-2020 Instruction Type:Provider Instructions for Treatment How to access health informa tion online Indication:Non-smoker Start:29-Feb-2020 Instruction Type:Patient Education How to access health informa tion online - Detail Indication:Non-smoker Start:29-Feb-2020 Instruction Type:Patient Education Patient Instructions Indication:Non-smoker Start:29-Feb-2020 Instruction Type:Provider Instructions for Treatment How to access health informa tion online Indication:BMI 24.0-24.9, adult Start:29-Feb-2020 Instruction Type:Patient Education How to access health informa tion online - Detail Indication:BMI 24.0-24.9, adult Start:29-Feb-2020 Instruction Type:Patient Education Patient Instructions Indication:BMI 24.0-24.9, adult Start:29-Feb-2020 Instruction Type:Provider Instructions for Treatment How to access health informa tion online Indication:BMI 25.0-25.9,adult Start:22-Feb-2020 Instruction Type:Patient Education How to access health informa tion online - Detail Indication:BMI 25.0-25.9,adult Start:22-Feb-2020 Instruction Type:Patient Education Patient Instructions Indication:BMI 25.0-25.9,adult Start:22-Feb-2020 Instruction Type:Provider Instructions for Treatment How to access health informa tion online Indication:BMI 25.0-25.9,adult Start:05-Feb-2020 Instruction Type:Patient Education How to access health informa tion online - Detail Indication:BMI 25.0-25.9,adult Start:05-Feb-2020 Instruction Type:Patient Education Patient Instructions Indication:BMI 25.0-25.9,adult Start:05-Feb-2020 Instruction Type:Provider Instructions for Treatment How to access health informa tion online Indication:Non-smoker Start:14-Dec-2019 Instruction Type:Patient Education How to access health informa tion online - Detail Indication:Non-smoker Start:14-Dec-2019 Instruction Type:Patient Education Patient Instructions Indication:Non-smoker Start:14-Dec-2019 Instruction Type:Provider Instructions for Treatment How to access health informa tion online Indication:Non-smoker Start:08-Nov-2019 Instruction Type:Patient Education How to access health informa tion online - Detail Indication:Non-smoker Start:08-Nov-2019 Instruction Type:Patient Education Patient Instructions Indication:Non-smoker Start:08-Nov-2019 Instruction Type:Provider Instructions for Treatment How to access health informa tion online Indication:Non-smoker Start:30-Oct-2019 Instruction Type:Patient Education How to access health informa tion online - Detail Indication:Non-smoker Start:30-Oct-2019 Instruction Type:Patient Education Patient Instructions Indication:Non-smoker Start:30-Oct-2019 Instruction Type:Provider Instructions for Treatment How to access health informa tion online Indication:BMI 25.0-25.9,adult Start:18-Oct-2019 Instruction Type:Patient Education How to access health informa tion online - Detail Indication:BMI 25.0-25.9,adult Start:18-Oct-2019 Instruction Type:Patient Education Patient Instructions Indication:BMI 25.0-25.9,adult Start:18-Oct-2019 Instruction Type:Provider Instructions for Treatment Name Dates Details Patient Instructions Indication:Non-smoker Start:01-Jul-2020 Instruction Type:Provider Instructions for Treatment How to Access Health Informa tion Online using Patient Portal and [employer] Apps Indication:Non-smoker Start:01-Jul-2020 Instruction Type:Patient Education Patient Instructions Indication:Non-smoker Start:28-Jun-2020 Instruction Type:Provider Instructions for Treatment How to Access Health Informa tion Online using Patient Portal and [employer] Apps Indication:Non-smoker Start:28-Jun-2020 Instruction Type:Patient Education How to Access Health Informa tion Online using Patient Portal and [employer] Apps Indication:Non-smoker Start:12-Apr-2020 Instruction Type:Patient Education Patient Instructions Indication:Non-smoker Start:12-Apr-2020 Instruction Type:Provider Instructions for Treatment How to access health informa tion online Indication:Non-smoker Start:18-Mar-2020 Instruction Type:Patient Education How to access health informa tion online - Detail Indication:Non-smoker Start:18-Mar-2020 Instruction Type:Patient Education Patient Instructions Indication:Non-smoker Start:18-Mar-2020 Instruction Type:Provider Instructions for Treatment How to access health informa tion online Indication:Non-smoker Start:04-Mar-2020 Instruction Type:Patient Education How to access health informa tion online - Detail Indication:Non-smoker Start:04-Mar-2020 Instruction Type:Patient Education Patient Instructions Indication:Allergic rhinitis Start:04-Mar-2020 Instruction Type:Provider Instructions for Treatment How to access health informa tion online Indication:Non-smoker Start:29-Feb-2020 Instruction Type:Patient Education How to access health informa tion online - Detail Indication:Non-smoker Start:29-Feb-2020 Instruction Type:Patient Education Patient Instructions Indication:Non-smoker Start:29-Feb-2020 Instruction Type:Provider Instructions for Treatment How to access health informa tion online Indication:BMI 24.0-24.9, adult Start:29-Feb-2020 Instruction Type:Patient Education How to access health informa tion online - Detail Indication:BMI 24.0-24.9, adult Start:29-Feb-2020 Instruction Type:Patient Education Patient Instructions Indication:BMI 24.0-24.9, adult Start:29-Feb-2020 Instruction Type:Provider Instructions for Treatment How to access health informa tion online Indication:BMI 25.0-25.9,adult Start:22-Feb-2020 Instruction Type:Patient Education How to access health informa tion online - Detail Indication:BMI 25.0-25.9,adult Start:22-Feb-2020 Instruction Type:Patient Education Patient Instructions Indication:BMI 25.0-25.9,adult Start:22-Feb-2020 Instruction Type:Provider Instructions for Treatment How to access health informa tion online Indication:BMI 25.0-25.9,adult Start:05-Feb-2020 Instruction Type:Patient Education How to access health informa tion online - Detail Indication:BMI 25.0-25.9,adult Start:05-Feb-2020 Instruction Type:Patient Education Patient Instructions Indication:BMI 25.0-25.9,adult Start:05-Feb-2020 Instruction Type:Provider Instructions for Treatment How to access health informa tion online Indication:Non-smoker Start:14-Dec-2019 Instruction Type:Patient Education How to access health informa tion online - Detail Indication:Non-smoker Start:14-Dec-2019 Instruction Type:Patient Education Patient Instructions Indication:Non-smoker Start:14-Dec-2019 Instruction Type:Provider Instructions for Treatment How to access health informa tion online Indication:Non-smoker Start:08-Nov-2019 Instruction Type:Patient Education How to access health informa tion online - Detail Indication:Non-smoker Start:08-Nov-2019 Instruction Type:Patient Education Patient Instructions Indication:Non-smoker Start:08-Nov-2019 Instruction Type:Provider Instructions for Treatment How to access health informa tion online Indication:Non-smoker Start:30-Oct-2019 Instruction Type:Patient Education How to access health informa tion online - Detail Indication:Non-smoker Start:30-Oct-2019 Instruction Type:Patient Education Patient Instructions Indication:Non-smoker Start:30-Oct-2019 Instruction Type:Provider Instructions for Treatment How to access health informa tion online Indication:BMI 25.0-25.9,adult Start:18-Oct-2019 Instruction Type:Patient Education How to access health informa tion online - Detail Indication:BMI 25.0-25.9,adult Start:18-Oct-2019 Instruction Type:Patient Education Patient Instructions Indication:BMI 25.0-25.9,adult Start:18-Oct-2019 Instruction Type:Provider Instructions for Treatment Name Dates Details How to Access Health Informa tion Online using Patient Portal and [employer] Apps Indication:Non-smoker Start:03-Jul-2020 Instruction Type:Patient Education Patient Instructions Indication:Non-smoker Start:03-Jul-2020 Instruction Type:Provider Instructions for Treatment Patient Instructions Indication:Non-smoker Start:01-Jul-2020 Instruction Type:Provider Instructions for Treatment How to Access Health Informa tion Online using Patient Portal and [employer] Apps Indication:Non-smoker Start:01-Jul-2020 Instruction Type:Patient Education Patient Instructions Indication:Non-smoker Start:28-Jun-2020 Instruction Type:Provider Instructions for Treatment How to Access Health Informa tion Online using Patient Portal and [employer] Apps Indication:Non-smoker Start:28-Jun-2020 Instruction Type:Patient Education How to Access Health Informa tion Online using Patient Portal and [employer] Apps Indication:Non-smoker Start:12-Apr-2020 Instruction Type:Patient Education Patient Instructions Indication:Non-smoker Start:12-Apr-2020 Instruction Type:Provider Instructions for Treatment How to access health informa tion online Indication:Non-smoker Start:18-Mar-2020 Instruction Type:Patient Education How to access health informa tion online - Detail Indication:Non-smoker Start:18-Mar-2020 Instruction Type:Patient Education Patient Instructions Indication:Non-smoker Start:18-Mar-2020 Instruction Type:Provider Instructions for Treatment How to access health informa tion online Indication:Non-smoker Start:04-Mar-2020 Instruction Type:Patient Education How to access health informa tion online - Detail Indication:Non-smoker Start:04-Mar-2020 Instruction Type:Patient Education Patient Instructions Indication:Allergic rhinitis Start:04-Mar-2020 Instruction Type:Provider Instructions for Treatment How to access health informa tion online Indication:Non-smoker Start:29-Feb-2020 Instruction Type:Patient Education How to access health informa tion online - Detail Indication:Non-smoker Start:29-Feb-2020 Instruction Type:Patient Education Patient Instructions Indication:Non-smoker Start:29-Feb-2020 Instruction Type:Provider Instructions for Treatment How to access health informa tion online Indication:BMI 24.0-24.9, adult Start:29-Feb-2020 Instruction Type:Patient Education How to access health informa tion online - Detail Indication:BMI 24.0-24.9, adult Start:29-Feb-2020 Instruction Type:Patient Education Patient Instructions Indication:BMI 24.0-24.9, adult Start:29-Feb-2020 Instruction Type:Provider Instructions for Treatment How to access health informa tion online Indication:BMI 25.0-25.9,adult Start:22-Feb-2020 Instruction Type:Patient Education How to access health informa tion online - Detail Indication:BMI 25.0-25.9,adult Start:22-Feb-2020 Instruction Type:Patient Education Patient Instructions Indication:BMI 25.0-25.9,adult Start:22-Feb-2020 Instruction Type:Provider Instructions for Treatment How to access health informa tion online Indication:BMI 25.0-25.9,adult Start:05-Feb-2020 Instruction Type:Patient Education How to access health informa tion online - Detail Indication:BMI 25.0-25.9,adult Start:05-Feb-2020 Instruction Type:Patient Education Patient Instructions Indication:BMI 25.0-25.9,adult Start:05-Feb-2020 Instruction Type:Provider Instructions for Treatment How to access health informa tion online Indication:Non-smoker Start:14-Dec-2019 Instruction Type:Patient Education How to access health informa tion online - Detail Indication:Non-smoker Start:14-Dec-2019 Instruction Type:Patient Education Patient Instructions Indication:Non-smoker Start:14-Dec-2019 Instruction Type:Provider Instructions for Treatment How to access health informa tion online Indication:Non-smoker Start:08-Nov-2019 Instruction Type:Patient Education How to access health informa tion online - Detail Indication:Non-smoker Start:08-Nov-2019 Instruction Type:Patient Education Patient Instructions Indication:Non-smoker Start:08-Nov-2019 Instruction Type:Provider Instructions for Treatment How to access health informa tion online Indication:Non-smoker Start:30-Oct-2019 Instruction Type:Patient Education How to access health informa tion online - Detail Indication:Non-smoker Start:30-Oct-2019 Instruction Type:Patient Education Patient Instructions Indication:Non-smoker Start:30-Oct-2019 Instruction Type:Provider Instructions for Treatment How to access health informa tion online Indication:BMI 25.0-25.9,adult Start:18-Oct-2019 Instruction Type:Patient Education How to access health informa tion online - Detail Indication:BMI 25.0-25.9,adult Start:18-Oct-2019 Instruction Type:Patient Education Patient Instructions Indication:BMI 25.0-25.9,adult Start:18-Oct-2019 Instruction Type:Provider Instructions for Treatment Name Dates Details How to access health informa tion online Indication:Non-smoker Start:18-Mar-2020 Instruction Type:Patient Education How to access health informa tion online - Detail Indication:Non-smoker Start:18-Mar-2020 Instruction Type:Patient Education Patient Instructions Indication:Non-smoker Start:18-Mar-2020 Instruction Type:Provider Instructions for Treatment How to access health informa tion online Indication:Non-smoker Start:04-Mar-2020 Instruction Type:Patient Education How to access health informa tion online - Detail Indication:Non-smoker Start:04-Mar-2020 Instruction Type:Patient Education Patient Instructions Indication:Allergic rhinitis Start:04-Mar-2020 Instruction Type:Provider Instructions for Treatment How to access health informa tion online Indication:Non-smoker Start:29-Feb-2020 Instruction Type:Patient Education How to access health informa tion online - Detail Indication:Non-smoker Start:29-Feb-2020 Instruction Type:Patient Education Patient Instructions Indication:Non-smoker Start:29-Feb-2020 Instruction Type:Provider Instructions for Treatment How to access health informa tion online Indication:BMI 24.0-24.9, adult Start:29-Feb-2020 Instruction Type:Patient Education How to access health informa tion online - Detail Indication:BMI 24.0-24.9, adult Start:29-Feb-2020 Instruction Type:Patient Education Patient Instructions Indication:BMI 24.0-24.9, adult Start:29-Feb-2020 Instruction Type:Provider Instructions for Treatment How to access health informa tion online Indication:BMI 25.0-25.9,adult Start:22-Feb-2020 Instruction Type:Patient Education How to access health informa tion online - Detail Indication:BMI 25.0-25.9,adult Start:22-Feb-2020 Instruction Type:Patient Education Patient Instructions Indication:BMI 25.0-25.9,adult Start:22-Feb-2020 Instruction Type:Provider Instructions for Treatment How to access health informa tion online Indication:BMI 25.0-25.9,adult Start:05-Feb-2020 Instruction Type:Patient Education How to access health informa tion online - Detail Indication:BMI 25.0-25.9,adult Start:05-Feb-2020 Instruction Type:Patient Education Patient Instructions Indication:BMI 25.0-25.9,adult Start:05-Feb-2020 Instruction Type:Provider Instructions for Treatment How to access health informa tion online Indication:Non-smoker Start:14-Dec-2019 Instruction Type:Patient Education How to access health informa tion online - Detail Indication:Non-smoker Start:14-Dec-2019 Instruction Type:Patient Education Patient Instructions Indication:Non-smoker Start:14-Dec-2019 Instruction Type:Provider Instructions for Treatment How to access health informa tion online Indication:Non-smoker Start:08-Nov-2019 Instruction Type:Patient Education How to access health informa tion online - Detail Indication:Non-smoker Start:08-Nov-2019 Instruction Type:Patient Education Patient Instructions Indication:Non-smoker Start:08-Nov-2019 Instruction Type:Provider Instructions for Treatment How to access health informa tion online Indication:Non-smoker Start:30-Oct-2019 Instruction Type:Patient Education How to access health informa tion online - Detail Indication:Non-smoker Start:30-Oct-2019 Instruction Type:Patient Education Patient Instructions Indication:Non-smoker Start:30-Oct-2019 Instruction Type:Provider Instructions for Treatment How to access health informa tion online Indication:BMI 25.0-25.9,adult Start:18-Oct-2019 Instruction Type:Patient Education How to access health informa tion online - Detail Indication:BMI 25.0-25.9,adult Start:18-Oct-2019 Instruction Type:Patient Education Patient Instructions Indication:BMI 25.0-25.9,adult Start:18-Oct-2019 Instruction Type:Provider Instructions for Treatment Name Dates Details Patient Instructions Indication:Non-smoker Start:04-Jul-2020 Instruction Type:Provider Instructions for Treatment How to Access Health Informa tion Online using Patient Portal and [employer]rd [employer] Apps Indication:Non-smoker Start:04-Jul-2020 Instruction Type:Patient Education How to Access Health Informa tion Online using Patient Portal and [employer] Apps Indication:Non-smoker Start:03-Jul-2020 Instruction Type:Patient Education Patient Instructions Indication:Non-smoker Start:03-Jul-2020 Instruction Type:Provider Instructions for Treatment Patient Instructions Indication:Non-smoker Start:01-Jul-2020 Instruction Type:Provider Instructions for Treatment How to Access Health Informa tion Online using Patient Portal and [employer] Apps Indication:Non-smoker Start:01-Jul-2020 Instruction Type:Patient Education Patient Instructions Indication:Non-smoker Start:28-Jun-2020 Instruction Type:Provider Instructions for Treatment How to Access Health Informa tion Online using Patient Portal and [employer] Apps Indication:Non-smoker Start:28-Jun-2020 Instruction Type:Patient Education How to Access Health Informa tion Online using Patient Portal and [employer] Apps Indication:Non-smoker Start:12-Apr-2020 Instruction Type:Patient Education Patient Instructions Indication:Non-smoker Start:12-Apr-2020 Instruction Type:Provider Instructions for Treatment How to access health informa tion online Indication:Non-smoker Start:18-Mar-2020 Instruction Type:Patient Education How to access health informa tion online - Detail Indication:Non-smoker Start:18-Mar-2020 Instruction Type:Patient Education Patient Instructions Indication:Non-smoker Start:18-Mar-2020 Instruction Type:Provider Instructions for Treatment How to access health informa tion online Indication:Non-smoker Start:04-Mar-2020 Instruction Type:Patient Education How to access health informa tion online - Detail Indication:Non-smoker Start:04-Mar-2020 Instruction Type:Patient Education Patient Instructions Indication:Allergic rhinitis Start:04-Mar-2020 Instruction Type:Provider Instructions for Treatment How to access health informa tion online Indication:Non-smoker Start:29-Feb-2020 Instruction Type:Patient Education How to access health informa tion online - Detail Indication:Non-smoker Start:29-Feb-2020 Instruction Type:Patient Education Patient Instructions Indication:Non-smoker Start:29-Feb-2020 Instruction Type:Provider Instructions for Treatment How to access health informa tion online Indication:BMI 24.0-24.9, adult Start:29-Feb-2020 Instruction Type:Patient Education How to access health informa tion online - Detail Indication:BMI 24.0-24.9, adult Start:29-Feb-2020 Instruction Type:Patient Education Patient Instructions Indication:BMI 24.0-24.9, adult Start:29-Feb-2020 Instruction Type:Provider Instructions for Treatment How to access health informa tion online Indication:BMI 25.0-25.9,adult Start:22-Feb-2020 Instruction Type:Patient Education How to access health informa tion online - Detail Indication:BMI 25.0-25.9,adult Start:22-Feb-2020 Instruction Type:Patient Education Patient Instructions Indication:BMI 25.0-25.9,adult Start:22-Feb-2020 Instruction Type:Provider Instructions for Treatment How to access health informa tion online Indication:BMI 25.0-25.9,adult Start:05-Feb-2020 Instruction Type:Patient Education How to access health informa tion online - Detail Indication:BMI 25.0-25.9,adult Start:05-Feb-2020 Instruction Type:Patient Education Patient Instructions Indication:BMI 25.0-25.9,adult Start:05-Feb-2020 Instruction Type:Provider Instructions for Treatment How to access health informa tion online Indication:Non-smoker Start:14-Dec-2019 Instruction Type:Patient Education How to access health informa tion online - Detail Indication:Non-smoker Start:14-Dec-2019 Instruction Type:Patient Education Patient Instructions Indication:Non-smoker Start:14-Dec-2019 Instruction Type:Provider Instructions for Treatment How to access health informa tion online Indication:Non-smoker Start:08-Nov-2019 Instruction Type:Patient Education How to access health informa tion online - Detail Indication:Non-smoker Start:08-Nov-2019 Instruction Type:Patient Education Patient Instructions Indication:Non-smoker Start:08-Nov-2019 Instruction Type:Provider Instructions for Treatment How to access health informa tion online Indication:Non-smoker Start:30-Oct-2019 Instruction Type:Patient Education How to access health informa tion online - Detail Indication:Non-smoker Start:30-Oct-2019 Instruction Type:Patient Education Patient Instructions Indication:Non-smoker Start:30-Oct-2019 Instruction Type:Provider Instructions for Treatment How to access health informa tion online Indication:BMI 25.0-25.9,adult Start:18-Oct-2019 Instruction Type:Patient Education How to access health informa tion online - Detail Indication:BMI 25.0-25.9,adult Start:18-Oct-2019 Instruction Type:Patient Education Patient Instructions Indication:BMI 25.0-25.9,adult Start:18-Oct-2019 Instruction Type:Provider Instructions for Treatment Name Dates Details Patient Instructions Indication:BMI 26.0-26.9,adult Start:08-Jul-2020 Instruction Type:Provider Instructions for Treatment How to Access Health Informa tion Online using Patient Portal and [employer]rd [employer] Apps Indication:BMI 26.0-26.9,adult Start:08-Jul-2020 Instruction Type:Patient Education Patient Instructions Indication:Non-smoker Start:04-Jul-2020 Instruction Type:Provider Instructions for Treatment How to Access Health Informa tion Online using Patient Portal and [employer] Apps Indication:Non-smoker Start:04-Jul-2020 Instruction Type:Patient Education How to Access Health Informa tion Online using Patient Portal and [employer] Apps Indication:Non-smoker Start:03-Jul-2020 Instruction Type:Patient Education Patient Instructions Indication:Non-smoker Start:03-Jul-2020 Instruction Type:Provider Instructions for Treatment Patient Instructions Indication:Non-smoker Start:01-Jul-2020 Instruction Type:Provider Instructions for Treatment How to Access Health Informa tion Online using Patient Portal and [employer] Apps Indication:Non-smoker Start:01-Jul-2020 Instruction Type:Patient Education Patient Instructions Indication:Non-smoker Start:28-Jun-2020 Instruction Type:Provider Instructions for Treatment How to Access Health Informa tion Online using Patient Portal and [employer] Apps Indication:Non-smoker Start:28-Jun-2020 Instruction Type:Patient Education How to Access Health Informa tion Online using Patient Portal and [employer] Apps Indication:Non-smoker Start:12-Apr-2020 Instruction Type:Patient Education Patient Instructions Indication:Non-smoker Start:12-Apr-2020 Instruction Type:Provider Instructions for Treatment How to access health informa tion online Indication:Non-smoker Start:18-Mar-2020 Instruction Type:Patient Education How to access health informa tion online - Detail Indication:Non-smoker Start:18-Mar-2020 Instruction Type:Patient Education Patient Instructions Indication:Non-smoker Start:18-Mar-2020 Instruction Type:Provider Instructions for Treatment How to access health informa tion online Indication:Non-smoker Start:04-Mar-2020 Instruction Type:Patient Education How to access health informa tion online - Detail Indication:Non-smoker Start:04-Mar-2020 Instruction Type:Patient Education Patient Instructions Indication:Allergic rhinitis Start:04-Mar-2020 Instruction Type:Provider Instructions for Treatment How to access health informa tion online Indication:Non-smoker Start:29-Feb-2020 Instruction Type:Patient Education How to access health informa tion online - Detail Indication:Non-smoker Start:29-Feb-2020 Instruction Type:Patient Education Patient Instructions Indication:Non-smoker Start:29-Feb-2020 Instruction Type:Provider Instructions for Treatment How to access health informa tion online Indication:BMI 24.0-24.9, adult Start:29-Feb-2020 Instruction Type:Patient Education How to access health informa tion online - Detail Indication:BMI 24.0-24.9, adult Start:29-Feb-2020 Instruction Type:Patient Education Patient Instructions Indication:BMI 24.0-24.9, adult Start:29-Feb-2020 Instruction Type:Provider Instructions for Treatment How to access health informa tion online Indication:BMI 25.0-25.9,adult Start:22-Feb-2020 Instruction Type:Patient Education How to access health informa tion online - Detail Indication:BMI 25.0-25.9,adult Start:22-Feb-2020 Instruction Type:Patient Education Patient Instructions Indication:BMI 25.0-25.9,adult Start:22-Feb-2020 Instruction Type:Provider Instructions for Treatment How to access health informa tion online Indication:BMI 25.0-25.9,adult Start:05-Feb-2020 Instruction Type:Patient Education How to access health informa tion online - Detail Indication:BMI 25.0-25.9,adult Start:05-Feb-2020 Instruction Type:Patient Education Patient Instructions Indication:BMI 25.0-25.9,adult Start:05-Feb-2020 Instruction Type:Provider Instructions for Treatment How to access health informa tion online Indication:Non-smoker Start:14-Dec-2019 Instruction Type:Patient Education How to access health informa tion online - Detail Indication:Non-smoker Start:14-Dec-2019 Instruction Type:Patient Education Patient Instructions Indication:Non-smoker Start:14-Dec-2019 Instruction Type:Provider Instructions for Treatment How to access health informa tion online Indication:Non-smoker Start:08-Nov-2019 Instruction Type:Patient Education How to access health informa tion online - Detail Indication:Non-smoker Start:08-Nov-2019 Instruction Type:Patient Education Patient Instructions Indication:Non-smoker Start:08-Nov-2019 Instruction Type:Provider Instructions for Treatment How to access health informa tion online Indication:Non-smoker Start:30-Oct-2019 Instruction Type:Patient Education How to access health informa tion online - Detail Indication:Non-smoker Start:30-Oct-2019 Instruction Type:Patient Education Patient Instructions Indication:Non-smoker Start:30-Oct-2019 Instruction Type:Provider Instructions for Treatment How to access health informa tion online Indication:BMI 25.0-25.9,adult Start:18-Oct-2019 Instruction Type:Patient Education How to access health informa tion online - Detail Indication:BMI 25.0-25.9,adult Start:18-Oct-2019 Instruction Type:Patient Education Patient Instructions Indication:BMI 25.0-25.9,adult Start:18-Oct-2019 Instruction Type:Provider Instructions for Treatment Name Dates Details Patient Instructions Indication:BMI 26.0-26.9,adult Start:08-Jul-2020 Instruction Type:Provider Instructions for Treatment How to Access Health Informa tion Online using Patient Portal and [employer]rd [employer] Apps Indication:BMI 26.0-26.9,adult Start:08-Jul-2020 Instruction Type:Patient Education Patient Instructions Indication:Non-smoker Start:04-Jul-2020 Instruction Type:Provider Instructions for Treatment How to Access Health Informa tion Online using Patient Portal and [employer]rd [employer] Apps Indication:Non-smoker Start:04-Jul-2020 Instruction Type:Patient Education How to Access Health Informa tion Online using Patient Portal and [employer]rd [employer] Apps Indication:Non-smoker Start:03-Jul-2020 Instruction Type:Patient Education Patient Instructions Indication:Non-smoker Start:03-Jul-2020 Instruction Type:Provider Instructions for Treatment Patient Instructions Indication:Non-smoker Start:01-Jul-2020 Instruction Type:Provider Instructions for Treatment How to Access Health Informa tion Online using Patient Portal and [employer]rd [employer] Apps Indication:Non-smoker Start:01-Jul-2020 Instruction Type:Patient Education Patient Instructions Indication:Non-smoker Start:28-Jun-2020 Instruction Type:Provider Instructions for Treatment How to Access Health Informa tion Online using Patient Portal and [employer]rd [employer] Apps Indication:Non-smoker Start:28-Jun-2020 Instruction Type:Patient Education How to Access Health Informa tion Online using Patient Portal and [employer]rd [employer] Apps Indication:Non-smoker Start:12-Apr-2020 Instruction Type:Patient Education Patient Instructions Indication:Non-smoker Start:12-Apr-2020 Instruction Type:Provider Instructions for Treatment How to access health informa tion online Indication:Non-smoker Start:18-Mar-2020 Instruction Type:Patient Education How to access health informa tion online - Detail Indication:Non-smoker Start:18-Mar-2020 Instruction Type:Patient Education Patient Instructions Indication:Non-smoker Start:18-Mar-2020 Instruction Type:Provider Instructions for Treatment How to access health informa tion online Indication:Non-smoker Start:04-Mar-2020 Instruction Type:Patient Education How to access health informa tion online - Detail Indication:Non-smoker Start:04-Mar-2020 Instruction Type:Patient Education Patient Instructions Indication:Allergic rhinitis Start:04-Mar-2020 Instruction Type:Provider Instructions for Treatment How to access health informa tion online Indication:Non-smoker Start:29-Feb-2020 Instruction Type:Patient Education How to access health informa tion online - Detail Indication:Non-smoker Start:29-Feb-2020 Instruction Type:Patient Education Patient Instructions Indication:Non-smoker Start:29-Feb-2020 Instruction Type:Provider Instructions for Treatment How to access health informa tion online Indication:BMI 24.0-24.9, adult Start:29-Feb-2020 Instruction Type:Patient Education How to access health informa tion online - Detail Indication:BMI 24.0-24.9, adult Start:29-Feb-2020 Instruction Type:Patient Education Patient Instructions Indication:BMI 24.0-24.9, adult Start:29-Feb-2020 Instruction Type:Provider Instructions for Treatment How to access health informa tion online Indication:BMI 25.0-25.9,adult Start:22-Feb-2020 Instruction Type:Patient Education How to access health informa tion online - Detail Indication:BMI 25.0-25.9,adult Start:22-Feb-2020 Instruction Type:Patient Education Patient Instructions Indication:BMI 25.0-25.9,adult Start:22-Feb-2020 Instruction Type:Provider Instructions for Treatment How to access health informa tion online Indication:BMI 25.0-25.9,adult Start:05-Feb-2020 Instruction Type:Patient Education How to access health informa tion online - Detail Indication:BMI 25.0-25.9,adult Start:05-Feb-2020 Instruction Type:Patient Education Patient Instructions Indication:BMI 25.0-25.9,adult Start:05-Feb-2020 Instruction Type:Provider Instructions for Treatment How to access health informa tion online Indication:Non-smoker Start:14-Dec-2019 Instruction Type:Patient Education How to access health informa tion online - Detail Indication:Non-smoker Start:14-Dec-2019 Instruction Type:Patient Education Patient Instructions Indication:Non-smoker Start:14-Dec-2019 Instruction Type:Provider Instructions for Treatment How to access health informa tion online Indication:Non-smoker Start:08-Nov-2019 Instruction Type:Patient Education How to access health informa tion online - Detail Indication:Non-smoker Start:08-Nov-2019 Instruction Type:Patient Education Patient Instructions Indication:Non-smoker Start:08-Nov-2019 Instruction Type:Provider Instructions for Treatment How to access health informa tion online Indication:Non-smoker Start:30-Oct-2019 Instruction Type:Patient Education How to access health informa tion online - Detail Indication:Non-smoker Start:30-Oct-2019 Instruction Type:Patient Education Patient Instructions Indication:Non-smoker Start:30-Oct-2019 Instruction Type:Provider Instructions for Treatment How to access health informa tion online Indication:BMI 25.0-25.9,adult Start:18-Oct-2019 Instruction Type:Patient Education How to access health informa tion online - Detail Indication:BMI 25.0-25.9,adult Start:18-Oct-2019 Instruction Type:Patient Education Patient Instructions Indication:BMI 25.0-25.9,adult Start:18-Oct-2019 Instruction Type:Provider Instructions for Treatment Name Dates Details Patient Instructions Indication:Non-smoker Start:15-Jul-2020 Instruction Type:Provider Instructions for Treatment How to Access Health Informa tion Online using Patient Portal and [employer]rd [employer] Apps Indication:Non-smoker Start:15-Jul-2020 Instruction Type:Patient Education Patient Instructions Indication:BMI 26.0-26.9,adult Start:08-Jul-2020 Instruction Type:Provider Instructions for Treatment How to Access Health Informa tion Online using Patient Portal and [employer]rd [employer] Apps Indication:BMI 26.0-26.9,adult Start:08-Jul-2020 Instruction Type:Patient Education Patient Instructions Indication:Non-smoker Start:04-Jul-2020 Instruction Type:Provider Instructions for Treatment How to Access Health Informa tion Online using Patient Portal and [employer]rd [employer] Apps Indication:Non-smoker Start:04-Jul-2020 Instruction Type:Patient Education How to Access Health Informa tion Online using Patient Portal and [employer]rd [employer] Apps Indication:Non-smoker Start:03-Jul-2020 Instruction Type:Patient Education Patient Instructions Indication:Non-smoker Start:03-Jul-2020 Instruction Type:Provider Instructions for Treatment Patient Instructions Indication:Non-smoker Start:01-Jul-2020 Instruction Type:Provider Instructions for Treatment How to Access Health Informa tion Online using Patient Portal and [employer] Apps Indication:Non-smoker Start:01-Jul-2020 Instruction Type:Patient Education Patient Instructions Indication:Non-smoker Start:28-Jun-2020 Instruction Type:Provider Instructions for Treatment How to Access Health Informa tion Online using Patient Portal and [employer]rd [employer] Apps Indication:Non-smoker Start:28-Jun-2020 Instruction Type:Patient Education How to Access Health Informa tion Online using Patient Portal and [employer] Apps Indication:Non-smoker Start:12-Apr-2020 Instruction Type:Patient Education Patient Instructions Indication:Non-smoker Start:12-Apr-2020 Instruction Type:Provider Instructions for Treatment How to access health informa tion online Indication:Non-smoker Start:18-Mar-2020 Instruction Type:Patient Education How to access health informa tion online - Detail Indication:Non-smoker Start:18-Mar-2020 Instruction Type:Patient Education Patient Instructions Indication:Non-smoker Start:18-Mar-2020 Instruction Type:Provider Instructions for Treatment How to access health informa tion online Indication:Non-smoker Start:04-Mar-2020 Instruction Type:Patient Education How to access health informa tion online - Detail Indication:Non-smoker Start:04-Mar-2020 Instruction Type:Patient Education Patient Instructions Indication:Allergic rhinitis Start:04-Mar-2020 Instruction Type:Provider Instructions for Treatment How to access health informa tion online Indication:Non-smoker Start:29-Feb-2020 Instruction Type:Patient Education How to access health informa tion online - Detail Indication:Non-smoker Start:29-Feb-2020 Instruction Type:Patient Education Patient Instructions Indication:Non-smoker Start:29-Feb-2020 Instruction Type:Provider Instructions for Treatment How to access health informa tion online Indication:BMI 24.0-24.9, adult Start:29-Feb-2020 Instruction Type:Patient Education How to access health informa tion online - Detail Indication:BMI 24.0-24.9, adult Start:29-Feb-2020 Instruction Type:Patient Education Patient Instructions Indication:BMI 24.0-24.9, adult Start:29-Feb-2020 Instruction Type:Provider Instructions for Treatment How to access health informa tion online Indication:BMI 25.0-25.9,adult Start:22-Feb-2020 Instruction Type:Patient Education How to access health informa tion online - Detail Indication:BMI 25.0-25.9,adult Start:22-Feb-2020 Instruction Type:Patient Education Patient Instructions Indication:BMI 25.0-25.9,adult Start:22-Feb-2020 Instruction Type:Provider Instructions for Treatment How to access health informa tion online Indication:BMI 25.0-25.9,adult Start:05-Feb-2020 Instruction Type:Patient Education How to access health informa tion online - Detail Indication:BMI 25.0-25.9,adult Start:05-Feb-2020 Instruction Type:Patient Education Patient Instructions Indication:BMI 25.0-25.9,adult Start:05-Feb-2020 Instruction Type:Provider Instructions for Treatment How to access health informa tion online Indication:Non-smoker Start:14-Dec-2019 Instruction Type:Patient Education How to access health informa tion online - Detail Indication:Non-smoker Start:14-Dec-2019 Instruction Type:Patient Education Patient Instructions Indication:Non-smoker Start:14-Dec-2019 Instruction Type:Provider Instructions for Treatment How to access health informa tion online Indication:Non-smoker Start:08-Nov-2019 Instruction Type:Patient Education How to access health informa tion online - Detail Indication:Non-smoker Start:08-Nov-2019 Instruction Type:Patient Education Patient Instructions Indication:Non-smoker Start:08-Nov-2019 Instruction Type:Provider Instructions for Treatment How to access health informa tion online Indication:Non-smoker Start:30-Oct-2019 Instruction Type:Patient Education How to access health informa tion online - Detail Indication:Non-smoker Start:30-Oct-2019 Instruction Type:Patient Education Patient Instructions Indication:Non-smoker Start:30-Oct-2019 Instruction Type:Provider Instructions for Treatment How to access health informa tion online Indication:BMI 25.0-25.9,adult Start:18-Oct-2019 Instruction Type:Patient Education How to access health informa tion online - Detail Indication:BMI 25.0-25.9,adult Start:18-Oct-2019 Instruction Type:Patient Education Patient Instructions Indication:BMI 25.0-25.9,adult Start:18-Oct-2019 Instruction Type:Provider Instructions for Treatment Name Dates Details How to access health informa tion online Indication:Non-smoker Start:14-Dec-2019 Instruction Type:Patient Education How to access health informa tion online - Detail Indication:Non-smoker Start:14-Dec-2019 Instruction Type:Patient Education Patient Instructions Indication:Non-smoker Start:14-Dec-2019 Instruction Type:Provider Instructions for Treatment How to access health informa tion online Indication:Non-smoker Start:08-Nov-2019 Instruction Type:Patient Education How to access health informa tion online - Detail Indication:Non-smoker Start:08-Nov-2019 Instruction Type:Patient Education Patient Instructions Indication:Non-smoker Start:08-Nov-2019 Instruction Type:Provider Instructions for Treatment How to access health informa tion online Indication:Non-smoker Start:30-Oct-2019 Instruction Type:Patient Education How to access health informa tion online - Detail Indication:Non-smoker Start:30-Oct-2019 Instruction Type:Patient Education Patient Instructions Indication:Non-smoker Start:30-Oct-2019 Instruction Type:Provider Instructions for Treatment How to access health informa tion online Indication:BMI 25.0-25.9,adult Start:18-Oct-2019 Instruction Type:Patient Education How to access health informa tion online - Detail Indication:BMI 25.0-25.9,adult Start:18-Oct-2019 Instruction Type:Patient Education Patient Instructions Indication:BMI 25.0-25.9,adult Start:18-Oct-2019 Instruction Type:Provider Instructions for Treatment Name Dates Details How to access health informa tion online Indication:Non-smoker Start:08-Nov-2019 Instruction Type:Patient Education How to access health informa tion online - Detail Indication:Non-smoker Start:08-Nov-2019 Instruction Type:Patient Education Patient Instructions Indication:Non-smoker Start:08-Nov-2019 Instruction Type:Provider Instructions for Treatment How to access health informa tion online Indication:Non-smoker Start:30-Oct-2019 Instruction Type:Patient Education How to access health informa tion online - Detail Indication:Non-smoker Start:30-Oct-2019 Instruction Type:Patient Education Patient Instructions Indication:Non-smoker Start:30-Oct-2019 Instruction Type:Provider Instructions for Treatment How to access health informa tion online Indication:BMI 25.0-25.9,adult Start:18-Oct-2019 Instruction Type:Patient Education How to access health informa tion online - Detail Indication:BMI 25.0-25.9,adult Start:18-Oct-2019 Instruction Type:Patient Education Patient Instructions Indication:BMI 25.0-25.9,adult Start:18-Oct-2019 Instruction Type:Provider Instructions for Treatment Name Dates Details Patient Instructions Indication:Non-smoker Start:15-Jul-2020 Instruction Type:Provider Instructions for Treatment How to Access Health Informa tion Online using Patient Portal and [employer]rd [employer] Apps Indication:Non-smoker Start:15-Jul-2020 Instruction Type:Patient Education Patient Instructions Indication:BMI 26.0-26.9,adult Start:08-Jul-2020 Instruction Type:Provider Instructions for Treatment How to Access Health Informa tion Online using Patient Portal and [employer]rd [employer] Apps Indication:BMI 26.0-26.9,adult Start:08-Jul-2020 Instruction Type:Patient Education Patient Instructions Indication:Non-smoker Start:04-Jul-2020 Instruction Type:Provider Instructions for Treatment How to Access Health Informa tion Online using Patient Portal and [employer]rd [employer] Apps Indication:Non-smoker Start:04-Jul-2020 Instruction Type:Patient Education How to Access Health Informa tion Online using Patient Portal and [employer]rd [employer] Apps Indication:Non-smoker Start:03-Jul-2020 Instruction Type:Patient Education Patient Instructions Indication:Non-smoker Start:03-Jul-2020 Instruction Type:Provider Instructions for Treatment Patient Instructions Indication:Non-smoker Start:01-Jul-2020 Instruction Type:Provider Instructions for Treatment How to Access Health Informa tion Online using Patient Portal and [employer]rd [employer] Apps Indication:Non-smoker Start:01-Jul-2020 Instruction Type:Patient Education Patient Instructions Indication:Non-smoker Start:28-Jun-2020 Instruction Type:Provider Instructions for Treatment How to Access Health Informa tion Online using Patient Portal and [employer]rd [employer] Apps Indication:Non-smoker Start:28-Jun-2020 Instruction Type:Patient Education How to Access Health Informa tion Online using Patient Portal and [employer]rd [employer] Apps Indication:Non-smoker Start:12-Apr-2020 Instruction Type:Patient Education Patient Instructions Indication:Non-smoker Start:12-Apr-2020 Instruction Type:Provider Instructions for Treatment How to access health informa tion online Indication:Non-smoker Start:18-Mar-2020 Instruction Type:Patient Education How to access health informa tion online - Detail Indication:Non-smoker Start:18-Mar-2020 Instruction Type:Patient Education Patient Instructions Indication:Non-smoker Start:18-Mar-2020 Instruction Type:Provider Instructions for Treatment How to access health informa tion online Indication:Non-smoker Start:04-Mar-2020 Instruction Type:Patient Education How to access health informa tion online - Detail Indication:Non-smoker Start:04-Mar-2020 Instruction Type:Patient Education Patient Instructions Indication:Allergic rhinitis Start:04-Mar-2020 Instruction Type:Provider Instructions for Treatment How to access health informa tion online Indication:Non-smoker Start:29-Feb-2020 Instruction Type:Patient Education How to access health informa tion online - Detail Indication:Non-smoker Start:29-Feb-2020 Instruction Type:Patient Education Patient Instructions Indication:Non-smoker Start:29-Feb-2020 Instruction Type:Provider Instructions for Treatment How to access health informa tion online Indication:BMI 24.0-24.9, adult Start:29-Feb-2020 Instruction Type:Patient Education How to access health informa tion online - Detail Indication:BMI 24.0-24.9, adult Start:29-Feb-2020 Instruction Type:Patient Education Patient Instructions Indication:BMI 24.0-24.9, adult Start:29-Feb-2020 Instruction Type:Provider Instructions for Treatment How to access health informa tion online Indication:BMI 25.0-25.9,adult Start:22-Feb-2020 Instruction Type:Patient Education How to access health informa tion online - Detail Indication:BMI 25.0-25.9,adult Start:22-Feb-2020 Instruction Type:Patient Education Patient Instructions Indication:BMI 25.0-25.9,adult Start:22-Feb-2020 Instruction Type:Provider Instructions for Treatment How to access health informa tion online Indication:BMI 25.0-25.9,adult Start:05-Feb-2020 Instruction Type:Patient Education How to access health informa tion online - Detail Indication:BMI 25.0-25.9,adult Start:05-Feb-2020 Instruction Type:Patient Education Patient Instructions Indication:BMI 25.0-25.9,adult Start:05-Feb-2020 Instruction Type:Provider Instructions for Treatment How to access health informa tion online Indication:Non-smoker Start:14-Dec-2019 Instruction Type:Patient Education How to access health informa tion online - Detail Indication:Non-smoker Start:14-Dec-2019 Instruction Type:Patient Education Patient Instructions Indication:Non-smoker Start:14-Dec-2019 Instruction Type:Provider Instructions for Treatment How to access health informa tion online Indication:Non-smoker Start:08-Nov-2019 Instruction Type:Patient Education How to access health informa tion online - Detail Indication:Non-smoker Start:08-Nov-2019 Instruction Type:Patient Education Patient Instructions Indication:Non-smoker Start:08-Nov-2019 Instruction Type:Provider Instructions for Treatment How to access health informa tion online Indication:Non-smoker Start:30-Oct-2019 Instruction Type:Patient Education How to access health informa tion online - Detail Indication:Non-smoker Start:30-Oct-2019 Instruction Type:Patient Education Patient Instructions Indication:Non-smoker Start:30-Oct-2019 Instruction Type:Provider Instructions for Treatment How to access health informa tion online Indication:BMI 25.0-25.9,adult Start:18-Oct-2019 Instruction Type:Patient Education How to access health informa tion online - Detail Indication:BMI 25.0-25.9,adult Start:18-Oct-2019 Instruction Type:Patient Education Patient Instructions Indication:BMI 25.0-25.9,adult Start:18-Oct-2019 Instruction Type:Provider Instructions for Treatment Chief Complaint and Reason for Visit Chief Complaint chest pain Chief Complaint SCREENING Chief Complaint SCREENING CHEST PAIN, RECENT PCI CHEST PAIN, RECENT PCI Reason for Visit Bradycardia, sinus Chest pain History of CAD (coronary artery disease) Chief Complaint SCREENING CHEST PAIN, RECENT PCI CHEST PAIN, RECENT PCI CVA Cerebrovascular accident Reason for Visit Bradycardia, sinus Chest pain History of CAD (coronary artery disease) Acute cerebrovascular accident (CVA) Confusion History of CAD (coronary artery disease) Chief Complaint SCREENING CHEST PAIN, RECENT PCI CHEST PAIN, RECENT PCI CVA Cerebrovascular accident Cerebrovascular accident Reason for Visit Bradycardia, sinus Chest pain History of CAD (coronary artery disease) Acute cerebrovascular accident (CVA) Confusion History of CAD (coronary artery disease) Chief Complaint STENT 1/23// CONSULT ED STROKE/PT HAS RX Cerebral infarction, unspecified Reason for Visit Acute cerebrovascula r accident (CVA) [id number] HLD (hyperlipidemia) HTN (hypertension) Tobacco abuse Chief Complaint Admit Date 1 Y FU November 24, 2024 9:00 am Reason for Visit Admit Date Dyspnea on exertion November 24, 2024 9:00 am History of heart artery stent November 24, 2024 9:00am Atherosclerosis of wiyot co ronary artery of wiyot heart without angina November 24, 2024 9:00am HLD (hyperlipidemia) November 24, 2024 9:0 0am HTN (hypertension) November 24, 2024 9:00 am Chief Complaint Admit Date 1 Y November 24, 2024 9:00 am E ORDERS November 24, 2024 9:54 am Reason for Visit Admit Date Dyspnea on exertion November 24, 2024 9:00 am Atherosclerosis of wiyot co ronary artery of wiyot heart without angina November 24, 2024 9:00am History of heart artery stent November 24, 2024 9:00am HLD (hyperlipidemia) November 24, 2024 9:0 0am HTN (hypertension) November 24, 2024 9:00 am Reason for Referral Specialty Diagnoses / Procedures Referred By Little mike Referred To Contact MR IMAGING Diagnoses Cerebral infarction, unspecified mechanism (HCC) Procedures MRI BRAIN WO/W IVCON MRI BRAIN BRAIN STEM W/O W/CONTRAST MATERIAL [facility] DO [address] [place] [address] Mr Imaging Referral ID Status Reason Start Date Expiration Date Visits Requested Visits Authorized [id number] Pending Review Auto-Generat ed Referral 06/25/2022 07/25/2023 1 1 Specialty Diagnoses / Procedures Referred By Little mike Referred To Contact HEART AND VASCULAR PAHRUMP Diagnoses Arterial ischemic stroke (HCC) Procedures ECHO TRANSESOPHAGEAL ECHO TRANSESOPHAG R-T 2D W/PRB IMG ACQUISJ I&R [facility] DO [address] [place] [address] [facility] [address] [address] Referral ID Status Reason Start Date Expiration Date Visits Requested Visits Authorized [id number] Pending Review Auto-Generat ed Referral 06/24/2022 06/24/2023 1 1 Specialty Diagnoses / Procedures Referred By Contac t Referred To Contact RE[facility]TS [facility] INS Diagnoses Arterial ischemic stroke (HCC) Procedures CONSULT TO PHYSICAL THERAPY PHYSICAL THERAPY EVALUATION HIGH COMPLEX 45 MINS Rad Pro DO [address] [place] [address] [facility] [address] [address] Referral ID Status Reason Start Date Expiration Date Visits Requested Visits Authorized [id number] Pending Review Auto-Generat ed Referral 08/25/2022 08/25/2023 1 1 Specialty Diagnoses / Procedures Referred By Contac t Referred To Contact [facility] Diagnoses Arterial ischemic stroke (HCC) Procedures CONSULT TO POTATO PEELING MACHINE OPERATOR 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 THERAPY EVAL HIGH COMPLEX 60 MINS Rad Pro DO [address] [place] [address] [facility] [address] [address] Referral ID Status Reason Start Date Expiration Date Visits Requested Visits Authorized [id number] Pending Review Auto-Generat ed Referral 08/25/2022 08/25/2023 1 1 Referral ID Status Reason Start Date Expiration Date Visits Requested Visits Authorized [id number] Authorized Auto-Generat ed Referral 08/25/2022 09/24/2023 1 1 Specialty Diagnoses / Procedures Referred By Contac t Referred To Contact [facility] Diagnoses Arterial ischemic stroke (HCC) Procedures CONSULT TO SPEECH THERAPY OFFICE/OUTPATIENT NEW HIGH MDM 60-74 MINUTES [facility], [address] [place] [address] [facility] [address] [address] Referral ID Status Reason Start Date Expiration Date Visits Requested Visits Authorized [id number] Pending Review Auto-Generat ed Referral 08/25/2022 08/25/2023 1 1 Specialty Diagnoses / Procedures Referred By Contac t Referred To Contact MR IMAGING Diagnoses Glioma (HCC) Procedures MRI BRAIN WO/W IVCON MRI BRAIN BRAIN STEM W/O W/CONTRAST MATERIAL Codie Soto MD [address] [place] [address] Mr Imaging Referral ID Status Reason Start Date Expiration Date Visits Requested Visits Authorized [id number] Pending Review Auto-Generat ed Referral 11/12/2022 12/12/2023 1 1 Specialty Diagnoses / Procedures Referred By Contac t Referred To Contact Neurology Diagnoses Brain mass Alexia Lesion of brain Speech disturbance, unspecified type Visual field defect Confusion Procedures CONSULT TO NEUROLOGY OFFICE/OUTPATIENT [facility] [place] 60-74 MINUTES Codie Soto MD [address] [place] [address] Referral ID Status Reason Start Date Expiration Date Visits Requested Visits Authorized [id number] Pending Review PCP Requested Referral 11/17/2022 11/17/2023 1 1 Specialty Diagnoses / Procedures Referred By Contac t Referred To Contact Infectious Diseases Diagnoses Brain mass Alexia Lesion of brain Speech disturbance, unspecified type Visual field defect Confusion Procedures CONSULT TO INFECTIOUS DISEASES OFFICE/OUTPATIENT [facility] [place] 60-74 MINUTES Codie Soto MD [address] [place] [address] Referral ID Status Reason Start Date Expiration Date Visits Requested Visits Authorized [id number] Pending Review PCP Requested Referral 11/17/2022 11/17/2023 1 1 Specialty Diagnoses / Procedures Referred By Contac t Referred To Contact Ophthalmology Diagnoses Brain mass Alexia Lesion of brain Speech disturbance, unspecified type Visual field defect Confusion Procedures CONSULT TO OPHTHALMOLOGY OFFICE/OUTPATIENT [facility] 60-74 MINUTES Codie Soto MD [address] [place] [address] Referral ID Status Reason Start Date Expiration Date Visits Requested Visits Authorized [id number] Pending Review PCP Requested Referral 11/17/2022 11/17/2023 1 1 Specialty Diagnoses / Procedures Referred By Contac t Referred To Contact Ophthalmology Diagnoses Brain mass Alexia Lesion of brain Speech disturbance, unspecified type Visual field defect Confusion Procedures CONSULT TO OPHTHALMOLOGY OFFICE/OUTPATIENT NEW HIGH MDM 60-74 MINUTES Codie Soto MD [address] [place] [phone] [facility] [address] [place] [address] Referral ID Status Reason Start Date Expiration Date Visits Requested Visits Authorized [id number] Pending Review PCP Requested Referral 11/17/2022 11/17/2023 1 1 Specialty Diagnoses / Procedures Referred By Contac t Referred To Contact [facility] Diagnoses Brain lesion Procedures CONSULT TO PHYSICAL THERAPY PHYSICAL THERAPY EVALUATION HIGH COMPLEX 45 MINS Triston Lozano MD [address] [place] [address] [facility] [place] [address] [place] [address] Referral ID Status Reason Start Date Expiration Date Visits Requested Visits Authorized [id number] Pending Review Auto-Generat ed Referral 01/12/2023 01/12/2024 1 1 Specialty Diagnoses / Procedures Referred By Contac t Referred To Contact MR IMAGING Diagnoses Brain lesion 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) Procedures MRI BRAIN WO/W IVCON MRI BRAIN BRAIN STEM W/O W/CONTRAST MATERIAL Codie Soto MD [address] [place] [phone] Mr [facility] [place] [address] Referral ID Status Reason Start Date Expiration Date Visits Requested Visits Authorized [id number] Pending Review Auto-Generat ed Referral 03/24/2024 1 1 Specialty Diagnoses / Procedures Referred By Contac t Referred To Contact MR IMAGING Diagnoses Brain lesion 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) Procedures MRI THORACIC SPINE WO/W IVCON MRI SPINAL CANAL THORACIC W/O & W/CONTR MATRL Codie Soto MD [address] [place] [phone] [facility] [place] [address] Referral ID Status Reason Start Date Expiration Date Visits Requested Visits Authorized [id number] Pending Review Auto-Generat ed Referral 3 03/24/2024 1 1 Specialty Diagnoses / Procedures Referred By Contac t Referred To Contact MR IMAGING Diagnoses Brain lesion 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) Procedures MRI CERVICAL SPINE WO/W IVCON MRI SPINAL CANAL CERVICAL W/O & W/CONTR Codie Milner MD [address] [place] [address] Mr Imaging [place] [address] Referral ID Status Reason Start Date Expiration Date Visits Requested Visits Authorized [id number] Pending Review Auto-Generat ed Referral 3 03/24/2024 1 1 Specialty Diagnoses / Procedures Referred By Contac t Referred To Contact MR IMAGING Diagnoses Lesion of brain 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 (HCC) Procedures MRI LUMBAR SPINE WO/W IVCON MRI SPINAL CANAL LUMBAR W/O & W/CONTR Codie Milner MD [address] [place] [address] Mr [facility] [place] [address] Referral ID Status Reason Start Date Expiration Date V isits Requested Visits Authorized [id number] Closed Auto-Generate d Referral 12/31/2022 01/30/2024 1 1 Specialty Diagnoses / Procedures Referred By Contac t Referred To Contact MR IMAGING Diagnoses Neoplasm Procedures MRI BRAIN WO/W IVCON MRI BRAIN BRAIN STEM W/O W/CONTRAST MATERIAL [facility] Pro DO [address] [place] [address] Mr Imaging [place] [address] Referral ID Status Reason Start Date Expiration Date V isits Requested Visits Authorized [id number] Closed Auto-Generate d Referral 08/31/2022 08/06/2023 1 1 Specialty Diagnoses / Procedures Referred By Contac t Referred To Contact MR IMAGING Diagnoses Cerebral infarction, unspecified mechanism (HCC) Procedures MRI BRAIN WO/W IVCON MRI BRAIN BRAIN STEM W/O W/CONTRAST MATERIAL [facility] DO [address] [place] [address] Mr Imaging [place] [address] Referral ID Status Reason Start Date Expiration Date V isits Requested Visits Authorized [id number] Closed Auto-Generate d Referral 06/25/2022 07/25/2023 1 1 Specialty Diagnoses / Procedures Referred By Contac t Referred To Contact MR IMAGING Diagnoses Glioma (HCC) Procedures MRI BRAIN WO/W IVCON MRI BRAIN BRAIN STEM W/O W/CONTRAST MATERIAL Codie Soto MD [address] [place] [address] Mr Imaging [place] [address] Referral ID Status Reason Start Date Expiration Date V isits Requested Visits Authorized [id number] Closed Auto-Generate d Referral 11/12/2022 12/12/2023 1 1 Referral ID Status Reason Start Date Expiration Date V isits Requested Visits Authorized [id number] Closed Auto-Generate d Referral 08/25/2022 09/24/2023 1 1 Specialty Diagnoses / Procedures Referred By Contac t Referred To Contact CT IMAGING Diagnoses Lesion of brain Procedures CT CHEST W IVCON DIAGNOSTIC COMPUTED TOMOGRAPHY THORAX W/CONTRAST Codie Soto MD [address] [address] Ct [facility] [place] [address] Referral ID Status Reason Start Date Expiration Date V isits Requested Visits Authorized [id number] Closed Auto-Generate d Referral 11/18/2022 12/18/2023 1 1 Specialty Diagnoses / Procedures Referred By Contac t Referred To Contact CT IMAGING Diagnoses Lesion of brain Procedures CT ABD/PEL W IVCON CT ABD & PELVIS W/CONTRAST Codie Soto MD [address] [place] [address] Ct [facility] [place] [address] Referral ID Status Reason Start Date Expiration Date V isits Requested Visits Authorized [id number] Closed Auto-Generate d Referral 11/18/2022 12/18/2023 1 1 Specialty Diagnoses / Procedures Referred By Contac t Referred To Contact Infectious Diseases Diagnoses Brain lesion Visual field defect Lesion of brain Procedures CONSULT TO INFECTIOUS DISEASES OFFICE/OUTPATIENT NEW HIGH MDM 60-74 MINUTES Codie Soto MD [address] [place] [address] [facility] [address] [place] [phone] Referral ID Status Reason Start Date Expiration Date Visits Requested Visits Authorized [id number] Authorized PCP Requested Referral 05/03/2023 05/02/2024 1 1 Specialty Diagnoses / Procedures Referred By Contac t Referred To Contact MR IMAGING Diagnoses Brain lesion Procedures MRI BRAIN WO/W IVCON MRI BRAIN BRAIN STEM W/O W/CONTRAST MATERIAL Codie Soto MD [address] [place] [address] Mr Imaging [place] [address] Referral ID Status Reason Start Date Expiration Date V isits Requested Visits Authorized [id number] Closed Auto-Generate d Referral 05/04/2023 06/02/2024 1 1 Specialty Diagnoses / Procedures Referred By Contac t Referred To Contact MR IMAGING Diagnoses Brain lesion Procedures MRI LUMBAR SPINE WO/W IVCON MRI SPINAL CANAL LUMBAR W/O & W/CONTR MATRL Codie Soto MD [address] [place] [address] Mr [facility] [place] [address] Referral ID Status Reason Start Date Expiration Date V isits Requested Visits Authorized [id number] Closed Auto-Generate d Referral 05/04/2023 06/02/2024 1 1 Referral ID Status Reason Start Date Expiration Date Visits Requested Visits Authorized [id number] Authorized Auto-Generat ed Referral 07/22/2023 08/20/2024 1 1 Specialty Diagnoses / Procedures Referred By Contac t Referred To Contact MR IMAGING Diagnoses SPECIAL NEEDS BABYSITTER 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 disorder (HCC) Brain lesion Procedures MRI BRAIN WO/W IVCON MRI BRAIN BRAIN STEM W/O W/CONTRAST MATERIAL Triston Lozano MD [address] [place] [id number] Mr Imaging [facility] Referral ID Status Reason Start Date Expiration Date Visits Requested Visits Authorized [id number] Pending Review Auto-Generat ed Referral 10/21/2023 08/19/2024 1 1 Referral ID Status Reason Start Date Expiration Date V isits Requested Visits Authorized [id number] Closed Auto-Generate d Referral 07/22/2023 08/20/2024 1 1 Referral ID Status Reason Start Date Expiration Date Visits Requested Visits Authorized [id number] Pending Review Auto-Generat ed Referral 10/25/2023 11/23/2024 1 1 Specialty Diagnoses / Procedures Referred By Contac t Referred To Contact Neurology Diagnoses Seizures (HCC) Procedures CONSULT TO NEUROLOGY OFFICE/OUTPATIENT [facility] [place] 60 MINUTES Libertad Santiago, DIRECTOR [employer] OF NURSING.TECHNOLOGY MANAGER [address] [address] Referral ID Status Reason Start Date Expiration Date Visits Requested Visits Authorized [id number] Authorized PCP Requested Referral 12/03/2023 12/02/2024 1 1 Referral ID Status Reason Start Date Expiration Date V isits Requested Visits Authorized [id number] Closed Auto-Generate d Referral 10/25/2023 11/23/2024 1 1 Specialty Diagnoses / Procedures Referred By Contac t Referred To Contact MR IMAGING Diagnoses Brain lesion Procedures MRI BRAIN WO/W IVCON MRI BRAIN BRAIN STEM W/O W/CONTRAST MATERIAL Annamaria Templeton, DIRECTOR [employer]UR[employer].TECHNOLOGY MANAGER [address] [place] [id number] Mr Imaging [facility] Referral ID Status Reason Start Date Expiration Date Visits Requested Visits Authorized [id number] New Request Auto-Generat ed Referral 01/26/2024 02/24/2025 1 1 Referral ID Status Reason Start Date Expiration Date Visits Requested Visits Authorized [id number] New Request Auto-Generat ed Referral 05/24/2025 1 1 Medications Administered Section Inactive Administered Medications - up to 3 most recent administrations Medication Order MAR Action Action Date Dose Rate Site fluorescein-benoxinate 0.25-0.4 % 1 Drop (FLURESS) 1 Drop, BOTH EYES, DIRECTED, Starting on Wed12/15/22 at 1430, Until Wed12/16/22 at 0229, Administer for applanation tonometry. In the event of a Fluress shortage, administer 1 drop of Clementine-Fluor into both eyes as directed for applanation tonometry. Given 12/15/2022 2:30 PM EDT 1 Drop PHENYLephrine 2.5 % 1 Drop (AK-DILATE, ARNAV-SYNEPHRINE) 1 Drop, BOTH EYES, DIRECTED, Starting on Wed12/15/22 at 1430, Until Wed12/16/22 at 0229, Administer for dilation PROTECT FROM LIGHT Given 12/15/2022 2:44 PM EDT 1 Drop tropicamide 1 % 1 Drop (MYDRIACYL) 1 Drop, BOTH EYES, DIRECTED, Starting on Wed12/15/22 at 1430, Until Wed12/16/22 at 0229, Administer for dilation Given 12/15/2022 2:45 PM EDT 1 Drop Inactive Administered Medications - up to 3 most recent administrations Medication Order MAR Action Action Date Dose Rate Site acetaminophen 650 mg tab(s) (TYLENOL) 650 mg, ORAL, EVERY 4 HOURS NEEDED, Starting on Wed03/22/23 at 0932, Until Wed03/23/23 at 0304, Mild Pain (1-3) - Enteral, If ordered PRN for pain, patient/guardian may elect to receive this medication for higher pain levels INSTEAD of the opioid, if preferred: Yes Additional Source Comments INFORMATION SOURCE (unrecogn ized section and content) DATE CREATED AUTHOR 10/26/2017 [facility] DATE CREATED AUTHOR AUTHOR'S ORGANIZ ATION 06/26/2022 [facility] DATE CREATED AUTHOR AUTHOR'S ORGANIZ ATION 09/14/[address] [facility] DATE CREATED AUTHOR AUTHOR'S ORGANIZ ATION 12/01/2023 [facility] DATE CREATED AUTHOR AUTHOR'S ORGANIZ ATION 12/05/2023 [facility] DATE CREATED AUTHOR AUTHOR'S ORGANIZ ATION 10/16/[address] [facility] DATE CREATED AUTHOR AUTHOR'S ORGANIZ ATION 12/18/2024 [facility] Goals (unrecognized section and content) Goals may be documented in a n alternate sectionGoals may be documented in an alternate sectionGoals may be documented in an alternate sectionGoals may be documented in an alternate sectionGoals may be documented in an alternate sectionGoals may be documented in an alternate sectionGoals may be documented in an alternate sectionGoals may be documented in an alternate section Care Teams (unrecognized sec tion and content) Team Status: Active Member Role Status Dates DEONTE CHANDLER Family Provider Active Dr. Solis Cool , DO Primary Care Provider Active Team Status: Active Member Role Status Dates Dr. Solis Cool DO Primary Care Provider Active Dr. Keyur Palmer MD Emergency Provider Active Dr. Carmen Frias MD Admit Provider, Attending Provider, Other Provider Active Team Status: Inactive Member Role Status Dates Dr. Solis Cool DO Primary Care Pr ovider, Attending Provider, Referring Provider Active Team Status: Active Member Role Status Dates Dr. Solis Cool DO Primary Care Provider Active Dr. Keyur Palmer MD Emergency Provider Active Dr. Carmen Frias MD Admit Provider, Other Provider Active Dr. Rajwinder Lake MD Attending Provider Active Team Status: Active Member Role Status Dates Dr. Solis Cool DO Primary Care Provider Active Dr. William Shine MD Attending Provider Active Team Status: Inactive Member Role Status Dates Dr. Solis Cool DO Primary Care Provider Active Dr. Keyur Palmer MD Emergency Provider Active Dr. Carmen Frias MD Admit Provider, Other Provider Active Dr. Rajwinder Lake MD Attending Provider Active Dr. William Shine MD Other Provider Active Team Status: Active Member Role Status Dates Dr. Solis Cool DO Primary Care Provider Active Dr. Juan Daniel River DO Emergency Provider Active Dr. Carmen Frias MD Admit Provider, Attending Provider, Other Provider Active Team Status: Active Member Role Status Dates Dr. Solis Cool DO Primary Care Provider Active Dr. Juan Daniel River DO Emergency Provider Active Dr. Carmen Frias MD Admit Provider, Attending Prov ider Active Team Status: Active Member Role Status Dates Dr. Solis Cool DO Primary Care Provider Active Dr. Juan Daniel River DO Emergency Provider Active Dr. Carmen Frias MD Admit Provider, Other Provider Active Dr. Blayne Hawley MD Attending Provider, Other Provid er Active Team Status: Inactive Member Role Status Dates Dr. Solis Cool , Primary Care Provider Active Dr. Juan Daniel River DO Emergency Provider Active Dr. Carmen Frias MD Admit Provider, Other Provider Active Dr. Blayne Hawley MD Attending Provider Active Theatre Program Director Relationship Specialty Start Date End Date Solis Cool, DO [address] [place] [address] PCP - General Internal Medicine 06/24/22 Corrie Alvares [address] [place] [address] Referring Cardiology 06/11/22 Theatre Program Director Relationship Specialty Start Date End Date Solis Cool, DO [address] [facility] [address] [place] [address] PCP - General Internal Medicine 06/24/22 Corrie Alvares [address] [place] [address] Referring Cardiology 06/11/22 Theatre Program Director Relationship Specialty Start Date End Date Solis Cool, DO [address] [facility] [address] [place] [address] PCP - General Internal Medicine 06/24/22 Corrie Alvares [address] [place] [address] Referring Cardiology 06/11/22 Theatre Program Director Relationship Specialty Start Date End Date Solis Cool DO [address] [place] [address] PCP - General Internal Medicine 06/24/22 Corrie Alvares [address] [place] [address] Referring Cardiology 06/11/22 Theatre Program Director Relationship Specialty Start Date End Date Solis Cool DO [address] [facility] [address] [place] [address] PCP - General Internal Medicine 06/24/22 Corrie Alvares [address] [place] [address] Referring Cardiology 06/11/22 Theatre Program Director Relationship Specialty Start Date End Date Solis Cool, DO [address] [place] [address] PCP - General Internal Medicine 06/24/22 Corrie Alvares [address] [facility] [address] [place] [address] Referring Cardiology 06/11/22 Rad Pro DO [address], [place] [id number] Neurology 10/21/22 Theatre Program Director Relationship Specialty Start Date End Date Solis Cool DO [address] [place] [address] PCP - General Internal Medicine 06/24/22 Corrie Alvares [address] [facility] [address] [place] [address] Referring Cardiology 06/11/22 Rad Pro DO [address] [place] [address] Neurology 10/21/22 Team Status: Inactive Member Role Status Dates Dr. Solis Cool , DO Primary Care Provider, Referr ing Provider Active José Luis Stauffer APPRENTICESHIP TRAINING REPRESENTATIVE, APPRENTICESHIP TRAINING REPRESENTATIVE-C Attending Provider Active Team Status: Active Member Role Status Dates Dr. Solis Cool , DO Primary Care Provider Active MORTEZA LEROY Attending Provider, Referring Provi edwina Active Team Status: Inactive Member Role Status Dates Dr. Solis Cool , DO Primary Care Provider Active José Luis Stauffer APPRENTICESHIP TRAINING REPRESENTATIVE, APPRENTICESHIP TRAINING REPRESENTATIVE-C Attending Provider, Referring Pro vider Active Theatre Program Director Relationship Specialty Start Date End Date Solis Cool DO [address] [facility] [address] [place] [address] PCP - General Internal Medicine 06/24/22 Corrie Alvares1 [facility] [address] [place] [address] Referring Cardiology 06/11/22 Rad Pro, [address] [place] [address] Neurology 10/21/22 Theatre Program Director Relationship Specialty Start Date End Date Solis Cool DO [address] [place] [address] PCP - General Internal Medicine 06/24/22 Corrie Alvares1 [facility] [address] [place] [address] Referring Cardiology 06/11/22 Rad Pro DO [address] [place] [address] Neurology 10/21/22 Theatre Program Director Relationship Specialty Start Date End Date Solis Cool DO [address] [facility] [address] [place] [address] PCP - General Internal Medicine 06/24/22 Corrie Alvares [address] [facility] [address] [place] [address] Referring Cardiology 06/11/22 Rad Pro DO [address] [place] [address] Neurology 10/21/22 Theatre Program Director Relationship Specialty Start Date End Date Solis Cool DO [address] [place] [address] PCP - General Internal Medicine 06/24/22 Corrie Alvares [address] [place] [address] Referring Cardiology 06/11/22 Rad Pro DO [address] [place] [address] Neurology 10/21/22 Theatre Program Director Relationship Specialty Start Date End Date Solis Cool DO [address] [place] [address] PCP - General Internal Medicine 06/24/22 Corrie Alvares [address] [place] [address] Referring Cardiology 06/11/22 Rad Pro DO [address] [place] [address] Neurology 10/21/22 Theatre Program Director Relationship Specialty Start Date End Date Solis Cool DO [address] [facility] [address] [place] [address] PCP - General Internal Medicine 06/24/22 Corrie Alvares [address] [place] [address] Referring Cardiology 06/11/22 Rad Pro DO [address] [place] [address] Neurology 10/21/22 Theatre Program Director Relationship Specialty Start Date End Date Solis Cool DO [address] [place] [address] PCP - General Internal Medicine 06/24/22 Corrie Alvares [address] [place] [address] Referring Cardiology 06/11/22 Rad Pro DO [address] [place] [address] Neurology 10/21/22 Theatre Program Director Relationship Specialty Start Date End Date Solis Cool DO [address] [place] [address] PCP - General Internal Medicine 06/24/22 Corrie Alvares [address] [facility] [address] [place] [address] Referring Cardiology 06/11/22 Rad Pro DO [address] [place] [address] Neurology 10/21/22 Theatre Program Director Relationship Specialty Start Date End Date Solis Cool DO [address] [place] [address] PCP - General Internal Medicine 06/24/22 Corrie Alvares [address] [facility] [address] [place] [address] Referring Cardiology 06/11/22 Rad Pro DO [address] [place] [address] Neurology 10/21/22 Theatre Program Director Relationship Specialty Start Date End Date Solis Cool DO [address] [place] [address] PCP - General Internal Medicine 06/24/22 Corrie Alvares [address] [facility] [address] [place] [address] Referring Cardiology 06/11/22 Rad Pro DO [address] [place] [address] Neurology 10/21/22 Christine Aguayo LSW Rat Exterminator Hematology/Oncology 11/16/22 Theatre Program Director Relationship Specialty Start Date End Date Solis Cool DO [address] [facility] [address] [place] [address] PCP - General Internal Medicine 06/24/22 Corrie Alvares [address] [facility] [address] [place] [address] Referring Cardiology 06/11/22 Rad Pro DO [address] [place] [address] Neurology 10/21/22 Christine Aguayo LSW Rat Exterminator Hematology/Oncology 11/16/22 Theatre Program Director Relationship Specialty Start Date End Date Solis Cool DO [address] [facility] [address] [place] [address] PCP - General Internal Medicine 06/24/22 Corrie Alvares [address] [facility] [address] [place] [address] Referring Cardiology 06/11/22 Rad Por DO [address] [place] [address] Neurology 10/21/22 Christine Augayo LSW Rat Exterminator Hematology/Oncology 11/16/22 Theatre Program Director Relationship Specialty Start Date End Date Solis Cool DO [address] [place], [place] [address] PCP - General Internal Medicine 06/24/22 Corrie Alvares [address] [facility] [address] [place] [address] Referring Cardiology 06/11/22 Rad Pro DO [address] [place] [address] Neurology 10/21/22 Christine Aguayo [facility] Rat Exterminator Hematology/Oncology 11/16/22 Theatre Program Director Relationship Specialty Start Date End Date Solis Cool DO [address] [place] [address] PCP - General Internal Medicine 06/24/22 Corrie Alvares [address] [facility] [address] [place] [address] Referring Cardiology 06/11/22 Rad Pro DO [address] [place] [address] Neurology 10/21/22 Christine Aguayo LSW Rat Exterminator Hematology/Oncology 11/16/22 Theatre Program Director Relationship Specialty Start Date End Date Solis Cool DO [address] [place] [address] PCP - General Internal Medicine 06/24/22 Corrie Alvares [address] [place] [address] Referring Cardiology 06/11/22 Rad Pro DO [address] [place], [place] [address] Neurology 10/21/22 Christine Aguayo [facility] Rat Exterminator Hematology/Oncology 11/16/22 Theatre Program Director Relationship Specialty Start Date End Date Solis Cool DO [address] [place] [address] PCP - General Internal Medicine 06/24/22 Corrie Alvares [address] [place] [address] Referring Cardiology 06/11/22 Rad Pro DO [address] [place] [address] Neurology 10/21/22 Christine Aguayo [facility] Rat Exterminator Hematology/Oncology 11/16/22 Theatre Program Director Relationship Specialty Start Date End Date Solis Cool DO [address] [place] [address] PCP - General Internal Medicine 06/24/22 Corrie Alvares [address] [place] [address] Referring Cardiology 06/11/22 Rad Pro DO [address] [place] [address] Neurology 10/21/22 Christine Aguayo LSW Rat Exterminator Hematology/Oncology 11/16/22 Theatre Program Director Relationship Specialty Start Date End Date Solis Cool DO [address] [place], [place] [address] PCP - General Internal Medicine 06/24/22 Corrie Alvares [address] [place] [address] Referring Cardiology 06/11/22 Rad Pro DO [address] [place] [address] Neurology 10/21/22 Christine Aguayo [facility] Rat Exterminator Hematology/Oncology 11/16/22 Theatre Program Director Relationship Specialty Start Date End Date Solis Cool DO [address] [place] [address] PCP - General Internal Medicine 06/24/22 Corrie Alvares [address] [facility] [address] [place] [address] Referring Cardiology 06/11/22 Rad Pro DO [address] [place] [address] Neurology 10/21/22 Christine Aguayo [facility] Rat Exterminator Hematology/Oncology 11/16/22 Theatre Program Director Relationship Specialty Start Date End Date Solis Cool DO [address] [place] [address] PCP - General Internal Medicine 06/24/22 Corrie Alvares [address] [place] [address] Referring Cardiology 06/11/22 Rad Pro DO [address] [place], [place] [address] Neurology 10/21/22 Christine Aguayo [facility] Rat Exterminator Hematology/Oncology 11/16/22 Theatre Program Director Relationship Specialty Start Date End Date Solis Cool DO [address] [place] [address] PCP - General Internal Medicine 06/24/22 Corrie Alvares [address] [place] [address] Referring Cardiology 06/11/22 Rad Pro DO [address] [place] [address] Neurology 10/21/22 Christine Aguayo [facility] Rat Exterminator Hematology/Oncology 11/16/22 Theatre Program Director Relationship Specialty Start Date End Date Solis Cool DO [address] [place] [address] PCP - General Internal Medicine 06/24/22 Corrie Alvares [address] [place] [address] Referring Cardiology 06/11/22 Rad Pro DO [address] [place] [address] Neurology 10/21/22 Christine Aguayo LSW Rat Exterminator Hematology/Oncology 11/16/22 Theatre Program Director Relationship Specialty Start Date End Date Solis Cool DO [address] [place] [address] PCP - General Internal Medicine 06/24/22 Corrie Alvares [address] [place] [address] Referring Cardiology 06/11/22 Rad Pro DO [address] [place] [address] Neurology 10/21/22 Christine Aguayo [facility] Rat Exterminator Hematology/Oncology 11/16/22 Theatre Program Director Relationship Specialty Start Date End Date Solis Cool DO [address] [place] [address] PCP - General Internal Medicine 06/24/22 Corrie Alvares [address] [place] [address] Referring Cardiology 06/11/22 Theatre Program Director Relationship Specialty Start Date End Date Solis Cool DO [address] [place] [address] PCP - General Internal Medicine 06/24/22 Corrie Alvares [address] [place] [address] Referring Cardiology 06/11/22 Rad Pro DO [address] [place] [address] Neurology 10/21/22 Christine Aguayo, [facility] Rat Exterminator Hematology/Oncology 11/16/22 Theatre Program Director Relationship Specialty Start Date End Date Solis Cool DO [address] [place], [place] [address] PCP - General Internal Medicine 06/24/22 Corrie Alvares [address] [facility] [address] [place] [address] Referring Cardiology 06/11/22 Rad Pro DO [address] [place] [address] Neurology 10/21/22 Christine Aguayo, [facility] Rat Exterminator Hematology/Oncology 11/16/22 Theatre Program Director Relationship Specialty Start Date End Date Solis oCol DO [address] [place] [address] PCP - General Internal Medicine 06/24/22 Corrie Alvares [address] [place] [address] Referring Cardiology 06/11/22 Rad Pro DO [address] [place] [address] Neurology 10/21/22 Christine Aguayo LSW Rat Exterminator Hematology/Oncology 11/16/22 Theatre Program Director Relationship Specialty Start Date End Date Solis Cool DO [address] [place] [address] PCP - General Internal Medicine 06/24/22 Corrie Alvares [address] [facility] [address] [place] [address] Referring Cardiology 06/11/22 Rad Pro DO [address] [place] [address] Neurology 10/21/22 Christine Aguayo LSW Rat Exterminator Hematology/Oncology 11/16/22 Theatre Program Director Relationship Specialty Start Date End Date Solis Cool DO [address] [place] [address] PCP - General Internal Medicine 06/24/22 Corrie Alvares [address] [facility] [address] [place] [address] Referring Cardiology 06/11/22 Rad Pro DO [address] [place] [address] Neurology 10/21/22 Christine Aguayo LSW Rat Exterminator Hematology/Oncology 11/16/22 Theatre Program Director Relationship Specialty Start Date End Date Solis Cool DO [address] [place] [address] PCP - General Internal Medicine 06/24/22 Corrie Alvares [address] [place] [address] Referring Cardiology 06/11/22 Rad Pro DO [address] [place] [address] Neurology 10/21/22 Christine Aguayo, [facility] Rat Exterminator Hematology/Oncology 11/16/22 Theatre Program Director Relationship Specialty Start Date End Date Solis Cool DO [address] [place], [place] [address] PCP - General Internal Medicine 06/24/22 Corrie Alvares [address] [place] [address] Referring Cardiology 06/11/22 Rad Pro DO [address] [place], [place] [address] Neurology 10/21/22 Christine Aguayo, [facility] Rat Exterminator Hematology/Oncology 11/16/22 Theatre Program Director Relationship Specialty Start Date End Date Solis Cool DO [address] [place] [address] PCP - General Internal Medicine 06/24/22 Corrie Alvares [address] [place] [address] Referring Cardiology 06/11/22 Rad Pro DO [address] [place], [place] [address] Neurology 10/21/22 Christine Aguayo LSW Rat Exterminator Hematology/Oncology 11/16/22 Theatre Program Director Relationship Specialty Start Date End Date Solis Cool DO [address] [place] [address] PCP - General Internal Medicine 06/24/22 Corrie Alvares [address] [place] [address] Referring Cardiology 06/11/22 Rad Pro DO [address] [place], [place] [address] Neurology 10/21/22 Christine Aguayo LSW Rat Exterminator Hematology/Oncology 11/16/22 Theatre Program Director Relationship Specialty Start Date End Date Solis Cool DO [address] [place] [address] PCP - General Internal Medicine 06/24/22 Corrie Alvares [address] [facility] [address] [place] [address] Referring Cardiology 06/11/22 Rad Pro DO [address] [place] [address] Neurology 10/21/22 Christine Aguayo [facility] Rat Exterminator Hematology/Oncology 11/16/22 Theatre Program Director Relationship Specialty Start Date End Date Solis Cool DO [address] [place] [address] PCP - General Internal Medicine 06/24/22 Corrie Alvares [address] [place] [address] Referring Cardiology 06/11/22 Rad Pro DO [address] [place] [address] Neurology 10/21/22 Christine Aguayo LSW Rat Exterminator Hematology/Oncology 11/16/22 Theatre Program Director Relationship Specialty Start Date End Date Solis Cool DO [address] [place], [place] [address] PCP - General Internal Medicine 06/24/22 Corrie Alvares [address] [facility] [address] [place] [address] Referring Cardiology 06/11/22 Rad Pro DO [address] [place] [address] Neurology 10/21/22 Christine Aguayo P[employer]ING [employer] FINAL [employer]SEM[employer] SUPERVISOR Rat Exterminator Hematology/Oncology 11/16/22 Theatre Program Director Relationship Specialty Start Date End Date Solis Cool DO [address] [place] [address] PCP - General Internal Medicine 06/24/22 Corrie Alvares [address] [facility] [address] [place] [id number] Referring Cardiology 06/11/22 Rad Pro DO [address] [place] [address] Neurology 10/21/22 Christine Aguayo LSW Rat Exterminator Hematology/Oncology 11/16/22 Theatre Program Director Relationship Specialty Start Date End Date Solis Cool DO [address] [place] [address] PCP - General Internal Medicine 06/24/22 Corrie Alvares [address] [place] [address] Referring Cardiology 06/11/22 Rad Pro DO [address] [place], [place] [id number] Neurology 10/21/22 Christine Aguayo [facility] Rat Exterminator Hematology/Oncology 11/16/22 Theatre Program Director Relationship Specialty Start Date End Date Solis Cool DO [address] [place] [address] PCP - General Internal Medicine 06/24/22 Corrie Alvares [address] [place] [address] Referring Cardiology 06/11/22 Rad Pro DO [address] [place] [address] Neurology 10/21/22 Christine Aguayo [facility] Rat Exterminator Hematology/Oncology 11/16/22 Theatre Program Director Relationship Specialty Start Date End Date Solis Cool DO [address] [place] [address] PCP - General Internal Medicine 06/24/22 Corrie Alvares [address] [place] [address] Referring Cardiology 06/11/22 Rad Pro DO [address] [place] [address] Neurology 10/21/22 Christine Aguayo [facility] Rat Exterminator Hematology/Oncology 11/16/22 Theatre Program Director Relationship Specialty Start Date End Date Solis Cool DO [address] [place], [place] [id number] PCP - General Internal Medicine 06/24/22 Corrie Alvares [address] [place] [address] Referring Cardiology 06/11/22 Rad Pro DO [address] [place] [address] Neurology 10/21/22 Christine Aguayo [facility] Rat Exterminator Hematology/Oncology 11/16/22 Theatre Program Director Relationship Specialty Start Date End Date Solis Cool DO [address] [place] [address] PCP - General Internal Medicine 06/24/22 Corrie Alvares [address] [facility] [address] [place] [address] Referring Cardiology 06/11/22 Rad Pro DO [address] [place] [address] Neurology 10/21/22 Christine Gannon [facility] Rat Exterminator Hematology/Oncology 11/16/22 Theatre Program Director Relationship Specialty Start Date End Date Solis Cool DO [address] [place] [address] PCP - General Internal Medicine 06/24/22 Corrie Alvares [address] [place] [address] Referring Cardiology 06/11/22 Rad Pro DO [address] [place], [place] [id number] Neurology 10/21/22 Christien Gannon [facility] Rat Exterminator Hematology/Oncology 11/16/22 Theatre Program Director Relationship Specialty Start Date End Date Solis Cool DO [address] [place] [address] PCP - General Internal Medicine 06/24/22 Corrie Alvares [address] [place] [address] Referring Cardiology 06/11/22 Rad Pro DO [address] [place] [address] Neurology 10/21/22 Christine Gannon [facility] Rat Exterminator Hematology/Oncology 11/16/22 Theatre Program Director Relationship Specialty Start Date End Date Solis Cool DO [address] [place] [address] PCP - General Internal Medicine 06/24/22 Corrie Alvares [address] [place] [address] Referring Cardiology 06/11/22 Rad Pro DO [address] [place] [address] Neurology 10/21/22 Christine Gannon, [employer] Rat Exterminator Hematology/Oncology 11/16/22 Theatre Program Director Relationship Specialty Start Date End Date Solis Cool DO [address] [place] [address] PCP - General Internal Medicine 06/24/22 Corrie Alvares [address] [place] [address] Referring Cardiology 06/11/22 Rad Pro DO [address] [place] [address] Neurology 10/21/22 Christine Gannon, [employer] SUPER[employer] Rat Exterminator Hematology/Oncology 11/16/22 Theatre Program Director Relationship Specialty Start Date End Date Solis Cool DO [address] [place] [address] PCP - General Internal Medicine 06/24/22 Corrie Alvares [address] [place] [address] Referring Cardiology 06/11/22 Rad Pro DO [address] [place] [address] Neurology 10/21/22 Christine Gannon, [employer] SUPER[employer] Rat Exterminator Hematology/Oncology 11/16/22 Theatre Program Director Relationship Specialty Start Date End Date Solis Cool DO [address] [place] [address] PCP - General Internal Medicine 06/24/22 Corrie Alvares [address] [place] [address] Referring Cardiology 06/11/22 Rad Pro DO [address] [facility] [address] [place] [address] Neurology 10/21/22 Christine Gannon LSW Rat Exterminator Hematology/Oncology 11/16/22 Team Status: Active Member Role/Relationship Status Dates DEONTE CHANDLER Family Provider Active Dr. Solis Cool DO Primary Care Provider Active Team Status: Inactive Member Role/Relationship Status Dates Dr. Solis Cool DO Primary Care Provider Active Start: November 24, 2024 End: November 24, 2024 Dr. Solis Cool DO Referring Provider Active Start: November 24, 2024 End: November 24, 2024 SUSAN Pichardo Attending Provider Active St art: November 24, 2024 End: November 24, 2024 Team Status: Active Member Role/Relationship Status Dates Dr. Solis Cool DO Primary Care Provider Active Team Status: Inactive Member Role/Relationship Status Dates Dr. Solis Cool DO Primary Care Provider Active Start: November 24, 2024 End: November 24, 2024 SUSAN Pichardo Attending Provider Active St art: November 24, 2024 End: November 24, 2024 SUSAN Pichardo Referring Provider Active St art: November 24, 2024 End: November 24, 2024 Theatre Program Director Relationship Specialty Start Date End Date Solis Cool DO [address] [facility] [address] [place] [address] PCP - General Internal Medicine 06/24/22 Corrie Alvares [address] [place] [address] Referring Cardiology 06/11/22 Rad Pro DO [address] [place] [address] Neurology 10/21/22 Christine Gannon LSW Rat Exterminator Hematology/Oncology 11/16/22 Theatre Program Director Relationship Specialty Start Date End Date Solis Cool [address] [place] [address] PCP - General Internal Medicine 06/24/22 Corrie Alvares [address] [place] [address] Referring Cardiology 06/11/22 Rad Pro DO [address] [place] [address] Neurology 10/21/22 Christine Gannon LSW Rat Exterminator Hematology/Oncology 11/16/22 Source Comments (unrecognize d section and content) In the event this informatio n is protected by the Federal Confidentiality of Alcohol and Drug Abuse Patient Records regulations: The Federal rules restrict any use of the information to criminally investigate or prosecute any alcohol or drug abuse patient.[facility] CenterIn the event this information is protected by the Federal Confidentiality of Alcohol and Drug Abuse Patient Records regulations: The Federal rules restrict any use of the information to criminally investigate or prosecute any alcohol or drug abuse patient.[facility] CenterIn the event this information is protected by the Federal Confidentiality of Alcohol and Drug Abuse Patient Records regulations: The Federal rules restrict any use of the information to criminally investigate or prosecute any alcohol or drug abuse patient.[facility] CenterIn the event this information is protected by the Federal Confidentiality of Alcohol and Drug Abuse Patient Records regulations: The Federal rules restrict any use of the information to criminally investigate or prosecute any alcohol or drug abuse patient.[facility] CenterIn the event this information is protected by the Federal Confidentiality of Alcohol and Drug Abuse Patient Records regulations: The Federal rules restrict any use of the information to criminally investigate or prosecute any alcohol or drug abuse patient.[facility] CenterIn the event this information is protected by the Federal Confidentiality of Alcohol and Drug Abuse Patient Records regulations: The Federal rules restrict any use of the information to criminally investigate or prosecute any alcohol or drug abuse patient.[facility] CenterIn the event this information is protected by the Federal Confidentiality of Alcohol and Drug Abuse Patient Records regulations: The Federal rules restrict any use of the information to criminally investigate or prosecute any alcohol or drug abuse patient.[facility] CenterIn the event this information is protected by the Federal Confidentiality of Alcohol and Drug Abuse Patient Records regulations: The Federal rules restrict any use of the information to criminally investigate or prosecute any alcohol or drug abuse patient.[facility] CenterIn the event this information is protected by the Federal Confidentiality of Alcohol and Drug Abuse Patient Records regulations: The Federal rules restrict any use of the information to criminally investigate or prosecute any alcohol or drug abuse patient.[facility] CenterIn the event this information is protected by the Federal Confidentiality of Alcohol and Drug Abuse Patient Records regulations: The Federal rules restrict any use of the information to criminally investigate or prosecute any alcohol or drug abuse patient.[facility] CenterIn the event this information is protected by the Federal Confidentiality of Alcohol and Drug Abuse Patient Records regulations: The Federal rules restrict any use of the information to criminally investigate or prosecute any alcohol or drug abuse patient.[facility] CenterIn the event this information is protected by the Federal Confidentiality of Alcohol and Drug Abuse Patient Records regulations: The Federal rules restrict any use of the information to criminally investigate or prosecute any alcohol or drug abuse patient.[facility] CenterIn the event this information is protected by the Federal Confidentiality of Alcohol and Drug Abuse Patient Records regulations: The Federal rules restrict any use of the information to criminally investigate or prosecute any alcohol or drug abuse patient.[facility] CenterIn the event this information is protected by the Federal Confidentiality of Alcohol and Drug Abuse Patient Records regulations: The Federal rules restrict any use of the information to criminally investigate or prosecute any alcohol or drug abuse patient.[facility] CenterIn the event this information is protected by the Federal Confidentiality of Alcohol and Drug Abuse Patient Records regulations: The Federal rules restrict any use of the information to criminally investigate or prosecute any alcohol or drug abuse patient.[facility] CenterIn the event this information is protected by the Federal Confidentiality of Alcohol and Drug Abuse Patient Records regulations: The Federal rules restrict any use of the information to criminally investigate or prosecute any alcohol or drug abuse patient.[facility] CenterIn the event this information is protected by the Federal Confidentiality of Alcohol and Drug Abuse Patient Records regulations: The Federal rules restrict any use of the information to criminally investigate or prosecute any alcohol or drug abuse patient.[facility] CenterIn the event this information is protected by the Federal Confidentiality of Alcohol and Drug Abuse Patient Records regulations: The Federal rules restrict any use of the information to criminally investigate or prosecute any alcohol or drug abuse patient.[facility] CenterIn the event this information is protected by the Federal Confidentiality of Alcohol and Drug Abuse Patient Records regulations: The Federal rules restrict any use of the information to criminally investigate or prosecute any alcohol or drug abuse patient.[facility] CenterIn the event this information is protected by the Federal Confidentiality of Alcohol and Drug Abuse Patient Records regulations: The Federal rules restrict any use of the information to criminally investigate or prosecute any alcohol or drug abuse patient.[facility] CenterIn the event this information is protected by the Federal Confidentiality of Alcohol and Drug Abuse Patient Records regulations: The Federal rules restrict any use of the information to criminally investigate or prosecute any alcohol or drug abuse patient.[facility] CenterIn the event this information is protected by the Federal Confidentiality of Alcohol and Drug Abuse Patient Records regulations: The Federal rules restrict any use of the information to criminally investigate or prosecute any alcohol or drug abuse patient.[facility] CenterIn the event this information is protected by the Federal Confidentiality of Alcohol and Drug Abuse Patient Records regulations: The Federal rules restrict any use of the information to criminally investigate or prosecute any alcohol or drug abuse patient.[facility] CenterIn the event this information is protected by the Federal Confidentiality of Alcohol and Drug Abuse Patient Records regulations: The Federal rules restrict any use of the information to criminally investigate or prosecute any alcohol or drug abuse patient.[facility] CenterIn the event this information is protected by the Federal Confidentiality of Alcohol and Drug Abuse Patient Records regulations: The Federal rules restrict any use of the information to criminally investigate or prosecute any alcohol or drug abuse patient.[facility] CenterIn the event this information is protected by the Federal Confidentiality of Alcohol and Drug Abuse Patient Records regulations: The Federal rules restrict any use of the information to criminally investigate or prosecute any alcohol or drug abuse patient.[facility] CenterIn the event this information is protected by the Federal Confidentiality of Alcohol and Drug Abuse Patient Records regulations: The Federal rules restrict any use of the information to criminally investigate or prosecute any alcohol or drug abuse patient.[facility] CenterIn the event this information is protected by the Federal Confidentiality of Alcohol and Drug Abuse Patient Records regulations: The Federal rules restrict any use of the information to criminally investigate or prosecute any alcohol or drug abuse patient.[facility] CenterIn the event this information is protected by the Federal Confidentiality of Alcohol and Drug Abuse Patient Records regulations: The Federal rules restrict any use of the information to criminally investigate or prosecute any alcohol or drug abuse patient.[facility] CenterIn the event this information is protected by the Federal Confidentiality of Alcohol and Drug Abuse Patient Records regulations: The Federal rules restrict any use of the information to criminally investigate or prosecute any alcohol or drug abuse patient.[facility] CenterIn the event this information is protected by the Federal Confidentiality of Alcohol and Drug Abuse Patient Records regulations: The Federal rules restrict any use of the information to criminally investigate or prosecute any alcohol or drug abuse patient.[facility] CenterIn the event this information is protected by the Federal Confidentiality of Alcohol and Drug Abuse Patient Records regulations: The Federal rules restrict any use of the information to criminally investigate or prosecute any alcohol or drug abuse patient.[facility] CenterIn the event this information is protected by the Federal Confidentiality of Alcohol and Drug Abuse Patient Records regulations: The Federal rules restrict any use of the information to criminally investigate or prosecute any alcohol or drug abuse patient.[facility] CenterIn the event this information is protected by the Federal Confidentiality of Alcohol and Drug Abuse Patient Records regulations: The Federal rules restrict any use of the information to criminally investigate or prosecute any alcohol or drug abuse patient.[facility] CenterIn the event this information is protected by the Federal Confidentiality of Alcohol and Drug Abuse Patient Records regulations: The Federal rules restrict any use of the information to criminally investigate or prosecute any alcohol or drug abuse patient.[facility] CenterIn the event this information is protected by the Federal Confidentiality of Alcohol and Drug Abuse Patient Records regulations: The Federal rules restrict any use of the information to criminally investigate or prosecute any alcohol or drug abuse patient.[facility] CenterIn the event this information is protected by the Federal Confidentiality of Alcohol and Drug Abuse Patient Records regulations: The Federal rules restrict any use of the information to criminally investigate or prosecute any alcohol or drug abuse patient.[facility] CenterIn the event this information is protected by the Federal Confidentiality of Alcohol and Drug Abuse Patient Records regulations: The Federal rules restrict any use of the information to criminally investigate or prosecute any alcohol or drug abuse patient.[facility] CenterIn the event this information is protected by the Federal Confidentiality of Alcohol and Drug Abuse Patient Records regulations: The Federal rules restrict any use of the information to criminally investigate or prosecute any alcohol or drug abuse patient.[facility] CenterIn the event this information is protected by the Federal Confidentiality of Alcohol and Drug Abuse Patient Records regulations: The Federal rules restrict any use of the information to criminally investigate or prosecute any alcohol or drug abuse patient.[facility] CenterIn the event this information is protected by the Federal Confidentiality of Alcohol and Drug Abuse Patient Records regulations: The Federal rules restrict any use of the information to criminally investigate or prosecute any alcohol or drug abuse patient.[facility] CenterIn the event this information is protected by the Federal Confidentiality of Alcohol and Drug Abuse Patient Records regulations: The Federal rules restrict any use of the information to criminally investigate or prosecute any alcohol or drug abuse patient.[facility] CenterIn the event this information is protected by the Federal Confidentiality of Alcohol and Drug Abuse Patient Records regulations: The Federal rules restrict any use of the information to criminally investigate or prosecute any alcohol or drug abuse patient.[facility] CenterIn the event this information is protected by the Federal Confidentiality of Alcohol and Drug Abuse Patient Records regulations: The Federal rules restrict any use of the information to criminally investigate or prosecute any alcohol or drug abuse patient.[facility] CenterIn the event this information is protected by the Federal Confidentiality of Alcohol and Drug Abuse Patient Records regulations: The Federal rules restrict any use of the information to criminally investigate or prosecute any alcohol or drug abuse patient.[facility] CenterIn the event this information is protected by the Federal Confidentiality of Alcohol and Drug Abuse Patient Records regulations: The Federal rules restrict any use of the information to criminally investigate or prosecute any alcohol or drug abuse patient.[facility] CenterIn the event this information is protected by the Federal Confidentiality of Alcohol and Drug Abuse Patient Records regulations: The Federal rules restrict any use of the information to criminally investigate or prosecute any alcohol or drug abuse patient.[facility] CenterIn the event this information is protected by the Federal Confidentiality of Alcohol and Drug Abuse Patient Records regulations: The Federal rules restrict any use of the information to criminally investigate or prosecute any alcohol or drug abuse patient.[facility] CenterIn the event this information is protected by the Federal Confidentiality of Alcohol and Drug Abuse Patient Records regulations: The Federal rules restrict any use of the information to criminally investigate or prosecute any alcohol or drug abuse patient.[facility] CenterIn the event this information is protected by the Federal Confidentiality of Alcohol and Drug Abuse Patient Records regulations: The Federal rules restrict any use of the information to criminally investigate or prosecute any alcohol or drug abuse patient.[facility] CenterIn the event this information is protected by the Federal Confidentiality of Alcohol and Drug Abuse Patient Records regulations: The Federal rules restrict any use of the information to criminally investigate or prosecute any alcohol or drug abuse patient.[facility] CenterIn the event this information is protected by the Federal Confidentiality of Alcohol and Drug Abuse Patient Records regulations: The Federal rules restrict any use of the information to criminally investigate or prosecute any alcohol or drug abuse patient.[facility] CenterIn the event this information is protected by the Federal Confidentiality of Alcohol and Drug Abuse Patient Records regulations: The Federal rules restrict any use of the information to criminally investigate or prosecute any alcohol or drug abuse patient.[facility] CenterIn the event this information is protected by the Federal Confidentiality of Alcohol and Drug Abuse Patient Records regulations: The Federal rules restrict any use of the information to criminally investigate or prosecute any alcohol or drug abuse patient.[facility] CenterIn the event this information is protected by the Federal Confidentiality of Alcohol and Drug Abuse Patient Records regulations: The Federal rules restrict any use of the information to criminally investigate or prosecute any alcohol or drug abuse patient.[facility] CenterIn the event this information is protected by the Federal Confidentiality of Alcohol and Drug Abuse Patient Records regulations: The Federal rules restrict any use of the information to criminally investigate or prosecute any alcohol or drug abuse patient.[facility] CenterIn the event this information is protected by the Federal Confidentiality of Alcohol and Drug Abuse Patient Records regulations: The Federal rules restrict any use of the information to criminally investigate or prosecute any alcohol or drug abuse patient.[facility] CenterIn the event this information is protected by the Federal Confidentiality of Alcohol and Drug Abuse Patient Records regulations: The Federal rules restrict any use of the information to criminally investigate or prosecute any alcohol or drug abuse patient.[facility] CenterIn the event this information is protected by the Federal Confidentiality of Alcohol and Drug Abuse Patient Records regulations: The Federal rules restrict any use of the information to criminally investigate or prosecute any alcohol or drug abuse patient.[facility] CenterIn the event this information is protected by the Federal Confidentiality of Alcohol and Drug Abuse Patient Records regulations: The Federal rules restrict any use of the information to criminally investigate or prosecute any alcohol or drug abuse patient.[facility] CenterIn the event this information is protected by the Federal Confidentiality of Alcohol and Drug Abuse Patient Records regulations: The Federal rules restrict any use of the information to criminally investigate or prosecute any alcohol or drug abuse patient.[facility] CenterIn the event this information is protected by the Federal Confidentiality of Alcohol and Drug Abuse Patient Records regulations: The Federal rules restrict any use of the information to criminally investigate or prosecute any alcohol or drug abuse patient.[facility] CenterIn the event this information is protected by the Federal Confidentiality of Alcohol and Drug Abuse Patient Records regulations: The Federal rules restrict any use of the information to criminally investigate or prosecute any alcohol or drug abuse patient.[facility] CenterIn the event this information is protected by the Federal Confidentiality of Alcohol and Drug Abuse Patient Records regulations: The Federal rules restrict any use of the information to criminally investigate or prosecute any alcohol or drug abuse patient.[facility] CenterIn the event this information is protected by the Federal Confidentiality of Alcohol and Drug Abuse Patient Records regulations: The Federal rules restrict any use of the information to criminally investigate or prosecute any alcohol or drug abuse patient.[facility] CenterIn the event this information is protected by the Federal Confidentiality of Alcohol and Drug Abuse Patient Records regulations: The Federal rules restrict any use of the information to criminally investigate or prosecute any alcohol or drug abuse patient.[facility] CenterIn the event this information is protected by the Federal Confidentiality of Alcohol and Drug Abuse Patient Records regulations: The Federal rules restrict any use of the information to criminally investigate or prosecute any alcohol or drug abuse patient.[facility] CenterIn the event this information is protected by the Federal Confidentiality of Alcohol and Drug Abuse Patient Records regulations: The Federal rules restrict any use of the information to criminally investigate or prosecute any alcohol or drug abuse patient.[facility] CenterIn the event this information is protected by the Federal Confidentiality of Alcohol and Drug Abuse Patient Records regulations: The Federal rules restrict any use of the information to criminally investigate or prosecute any alcohol or drug abuse patient.[facility] CenterIn the event this information is protected by the Federal Confidentiality of Alcohol and Drug Abuse Patient Records regulations: The Federal rules restrict any use of the information to criminally investigate or prosecute any alcohol or drug abuse patient.[facility] CenterIn the event this information is protected by the Federal Confidentiality of Alcohol and Drug Abuse Patient Records regulations: The Federal rules restrict any use of the information to criminally investigate or prosecute any alcohol or drug abuse patient.[facility] CenterIn the event this information is protected by the Federal Confidentiality of Alcohol and Drug Abuse Patient Records regulations: The Federal rules restrict any use of the information to criminally investigate or prosecute any alcohol or drug abuse patient.[facility] CenterIn the event this information is protected by the Federal Confidentiality of Alcohol and Drug Abuse Patient Records regulations: The Federal rules restrict any use of the information to criminally investigate or prosecute any alcohol or drug abuse patient.[facility] CenterIn the event this information is protected by the Federal Confidentiality of Alcohol and Drug Abuse Patient Records regulations: The Federal rules restrict any use of the information to criminally investigate or prosecute any alcohol or drug abuse patient.[facility] CenterIn the event this information is protected by the Federal Confidentiality of Alcohol and Drug Abuse Patient Records regulations: The Federal rules restrict any use of the information to criminally investigate or prosecute any alcohol or drug abuse patient.[facility] CenterIn the event this information is protected by the Federal Confidentiality of Alcohol and Drug Abuse Patient Records regulations: The Federal rules restrict any use of the information to criminally investigate or prosecute any alcohol or drug abuse patient.[facility] Reason for Visit (unrecogniz ed section and content) Reason Comments Received Outside Medical Records Rec'd d ischarge summary from [facility] imported into [employer]. Reason Comments New Patient Evaluation Reason Comments Received Outside Medical Records Importe [facility] report into [employer]. Reason Comments Follow Up Reason Comments Results Reason Comments triage Internal referral Reason Comments Results LUKE Reason Comments New Patient Specialty Diagnoses / Procedures Referred By Contac t Referred To Contact Neurology Diagnoses Glioma (HCC) Procedures CONSULT TO NEUROLOGY OFFICE/OUTPATIENT NEW HIGH MDM 60-74 MINUTES Rad Pro DO [address] [place] [address] Referral ID Status Reason Start Date Expiration Date Visits Requested Visits Authorized [id number] Pending Review PCP Requested Referral 10/09/2022 10/09/2023 1 1 Specialty Diagnoses / Procedures Referred By Contac t Referred To Contact Diagnoses Glioma (HCC) Procedures REFER TO PACC - PRE ANESTHESIA CONSULTATION CLINIC OFFICE/OUTPATIENT [facility] [employer] MDM 60-74 MINUTES Carlos Jovel MD [address] [place] [address] Referral ID Status Reason Start Date Expiration Date Visits Requested Visits Authorized [id number] Pending Review PCP Requested Referral 10/27/2022 10/27/2023 1 1 Reason Comments Radiology MRI Specialty Diagnoses / Procedures Referred By Contac t Referred To Contact MR IMAGING Diagnoses Glioma (HCC) Procedures MRI BRAIN WO/W IVCON MRI BRAIN BRAIN STEM W/O W/CONTRAST MATERIAL Carlos Jovel MD [address] [facility] [place] [address] Mr Imaging Referral ID Status Reason Start Date Expiration Date V isits Requested Visits Authorized [id number] Closed Auto-Generate d Referral 10/27/2022 11/26/2023 1 1 Reason Comments Medication Question Reason Comments Chart prep/record Review Reason Comments Reason Comments Brain Tumor Reason Comments Established Patient Reason Comments Visual Field Defect Evaluation OD Reason Comments Follow Up Phone Call All clear. 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 (HCC) Procedures MRI LUMBAR SPINE WO/W IVCON MRI SPINAL CANAL LUMBAR W/O & W/CONTR MATRL Codie Soto MD [address] [place] [address] Mr Imaging [place] [address] Referral ID Status Reason Start Date Expiration Date V isits Requested Visits Authorized [id number] Closed Auto-Generate d Referral 12/31/2022 01/30/2024 1 1 Specialty Diagnoses / Procedures Referred By Contac t Referred To Contact MR IMAGING Diagnoses Cerebral infarction, unspecified mechanism (HCC) Procedures MRI BRAIN WO/W IVCON MRI BRAIN BRAIN STEM W/O W/CONTRAST MATERIAL Rad Pro DO [address] [place] [address] Mr Imaging [place] [address] Referral ID Status Reason Start Date Expiration Date V isits Requested Visits Authorized [id number] Closed Auto-Generate d Referral 06/25/2022 07/25/2023 1 1 Reason Comments Radiology MRI Specialty Diagnoses / Procedures Referred By Contac t Referred To Contact MR IMAGING Diagnoses Glioma (HCC) Procedures MRI BRAIN WO/W IVCON MRI BRAIN BRAIN STEM W/O W/CONTRAST MATERIAL Codie Soto MD [address] [place] [address] Mr Imaging [place] [address] Referral ID Status Reason Start Date Expiration Date V isits Requested Visits Authorized [id number] Closed Auto-Generate d Referral 11/12/2022 12/12/2023 1 1 Referral ID Status Reason Start Date Expiration Date V isits Requested Visits Authorized [id number] Closed Auto-Generate d Referral 08/25/2022 09/24/2023 [address] Specialty Diagnoses / Procedures Referred By Contac t Referred To Contact CT IMAGING Diagnoses Lesion of brain Procedures CT CHEST W IVCON DIAGNOSTIC COMPUTED TOMOGRAPHY THORAX W/CONTRAST Codie Soto MD [address] [address] Ct [facility] [place] [address] Referral ID Status Reason Start Date Expiration Date V isits Requested Visits Authorized [id number] Closed Auto-Generate d Referral 11/18/2022 12/18/2023 1 1 Reason Comments Disability paperwork completed Specialty Diagnoses / Procedures Referred By Contac t Referred To Contact ADMITTING Diagnoses Neoplasm of uncertain behavior of brain, supratentorial (HCC) Procedures DIAGNOSTIC LUMBAR SPINAL PUNCTURE SPINAL PUNCTURE LUMBAR DIAGNOSTIC [facility] [address] [facility] [place] [address] Referral ID Status Reason Start Date Expiration Date Visits Re quested Visits Authorized [id number] 1 1 Reason Comments Brain Tumor Reason Comments Infection Follow Up Patient is having so me dizziness Specialty Diagnoses / Procedures Referred By Contac t Referred To Contact MR IMAGING Diagnoses Brain lesion Procedures MRI BRAIN WO/W IVCON MRI BRAIN BRAIN STEM W/O W/CONTRAST MATERIAL Codei Soto MD [address] [place] [address] Mr Imaging [place] [address] Referral ID Status Reason Start Date Expiration Date V isits Requested Visits Authorized [id number] Closed Auto-Generate d Referral 05/04/2023 06/02/2024 1 1 Specialty Diagnoses / Procedures Referred By Contac t Referred To Contact MR IMAGING Diagnoses Brain lesion Procedures MRI LUMBAR SPINE WO/W IVCON MRI SPINAL CANAL LUMBAR W/O & W/CONTR MATRL Codie Soto MD [address] [address] Mr Imaging [place] [address] Referral ID Status Reason Start Date Expiration Date V isits Requested Visits Authorized [id number] Closed Auto-Generate d Referral 05/04/2023 06/02/2024 1 1 Reason Comments Established Patient Follow-Up Referral ID Status Reason Start Date Expiration Date V isits Requested Visits Authorized [id number] Closed Auto-Generate d Referral 07/22/2023 08/20/2024 1 1 Reason Comments Jose week of 01/18 Reason Comments Seizure Call Reason Comments Appointment Referral ID Status Reason Start Date Expiration Date V isits Requested Visits Authorized [id number] Closed Auto-Generate d Referral 10/25/2023 11/23/2024 1 1 Reason Comments Follow Up Specialty Diagnoses / Procedures Referred By Contac t Referred To Contact Neurology Diagnoses Seizures (HCC) Procedures CONSULT TO NEUROLOGY OFFICE/OUTPATIENT [facility] [place] 60 MINUTES Libertad Santiago APRN.TECHNOLOGY MANAGER [address] [address] Referral ID Status Reason Start Date Expiration Date V isits Requested Visits Authorized [id number] Closed PCP Requested Referral 12/03/2023 12/02/2024 1 1 Reason Comments Epilepsy Reason Onset Date Comments Refill Request 12/16/2024 PRN Active and Recently Administ ered Medications (unrecognized section and content) Medication Order 03/20/2023 03/21/2023 03/22/2023 acetaminophen 650 mg tab(s) (TYLENOL) 650 mg, ORAL, EVERY 4 HOURS NEEDED, Starting on Wed03/22/23 at 0932, Until Wed03/23/23 at 0304, Mild Pain (1-3) - Enteral, If ordered PRN for pain, patient/guardian may elect to receive this medication for higher pain levels INSTEAD of the opioid, if preferred: Yes FOR RECORDS PERTAINING TO PATIENTS WHO ARE OR HAVE BEEN ENROLLED IN A CHEMICAL DEPENDENCY/SUBSTANCEABUSE PROGRAM, SOME INFORMATION MAY BE OMITTED. This clinical summary was aggregated from multiple sources. Caution should be exercised in using it in the provision of clinical care. This summary normalizes information from multiple sources, and as a consequence, information in this document may materially change the coding, format and clinical context of patient data. In addition, data may be omitted in some cases. CLINICAL DECISIONS SHOULD BE BASED ON THE PRIMARY CLINICAL RECORDS. [facility], [facility]. provides no warranty or guarantee of the accuracy or completeness of information in this document.
--- NOTE | 2024-12-19 17:13 | STRESSREP ---
Stress Test Report Pharmacologic myocardial perfusion stress test. 59-year-old lady with a history of chest pain. Resting EKG demonstrates normal sinus with a rate of 72 bpm. Resting blood pressure is 150/100 mmHg. 0.4 mg of regadenoson was infused per usual protocol followed by rapid intravenous saline flush injection. Continuous EKG monitoring was performed. The maximum heart rate was 86 bpm which was 52% of max impacted heart rate the maximum workload was 1 metabolic equivalent. At rest there were no ST or T wave changes noted to suggest ischemia and at peak infusion nonspecific ST changes were noted which did not meet the criteria for ischemia. No clinical angina is noted. The final blood pressure was 158 over mmHg. Myocardial perfusion protocol. 13.1 mCi of technetium 99m sestamibi was injected at rest. 0.4 mg of regadenoson was infused per usual protocol. At peak infusion 40.3 mCi of technetium 99m sestamibi was injected stress images were obtained stress and rest images were reconstructed and compared in the short axis vertical long and horizontal long axis. Gated images were also obtained. Perfusion SPECT analysis: Review of the stress images demonstrate normal uptake of tracer noted in all areas of the myocardium. The resting images similar demonstrated normal uptake of tracer noted in all areas of the myocardium. No areas of reversibility are noted to suggest ischemia and no previous infarct is noted. Gated SPECT analysis: The gated ejection fraction is 77%. Conclusion: Normal pharmacologic myocardial perfusion stress test. Preserved ejection fraction.
== END | disposition home or self-care (01) ==
LOC: CVS 06:41
PROVIDERS: PCP Internal Medicine; Referring Provider Student in an Organized Health Care Education/Training Program; Visit Provider Student in an Organized Health Care Education/Training Program
DX: R06.09 Other forms of dyspnea (principal); I25.10 Atherosclerotic heart disease of native coronary artery without angina pectoris; R07.9 Chest pain, unspecified
CPT/HCPCS: 78452; 93017; A9500; A4216; J2785

== ENCOUNTER → 2025-02-15 | Outpatient (CLI) | payer BC, SELFPAY ==
--- NOTE | 2025-02-15 16:31 | MRI_ITS ---
PROCEDURE: SPINE LUMBAR (ROUTINE) 02/15/2025 REASON FOR EXAM: LOW BACK PAIN WITH RADIATION TECHNIQUE: Procedure Code: MRISPL Modality: MR Procedure: SPINE LUMBAR (ROUTINE) FINDINGS: No acute fracture. Minimal grade 1 anterolisthesis of L4 on L5. Mild disc narrowing with mild disc desiccation is noted at L1-2, L2-3, and L4-5. The bone marrow signal appears unremarkable. The conus medullaris appears unremarkable and terminates at the level of L1. Minimal posterior disc bulging is noted throughout the lumbar spine, with facet arthrosis in the lower lumbar spine. Subsequently, there is no significant thecal sac narrowing throughout the thoracic spine. Minimal to mild bilateral neural foraminal narrowing at L3-4 and L4-5. The paraspinal musculature appears unremarkable. MRI/Spine Lumbar (Routine) IMPRESSION: Very mild lumbar spondylosis. Reading Location: [id number]
== END | disposition home or self-care (01) ==
LOC: MRI 16:30
PROVIDERS: PCP Internal Medicine; Referring Provider Internal Medicine; Visit Provider Internal Medicine
DX: M54.50 Low back pain, unspecified (principal)
CPT/HCPCS: 72148

== ENCOUNTER 2025-03-06 10:26 | Emergency (ER) | payer BC, OTHER, SELFPAY ==
[2025-03-06 10:27] VITALS: BP 181/96; PULSE 76; RESP 18; TEMP 36.3; O2SAT 100; BMI 31.1
--- NOTE | 2025-03-06 10:59 | EDS_ITS ---
HPI HPI - GI History of Present Illness Chief Complaint: Flank Pain Detail of Chief Complaint: Right abdomen/flank pain Informant: patient Narrative Narrative: Patient presents with abdomen/flank pain that started 3 days ago. Pain is continuous. Feels better if she lays on the right side and worse with cough or sneezing or bending over. Also she states that she has been having some urinary incontinence for about 3 months and recently saw urology who checked a urinalysis and apparently was unremarkable. Patient also describes some abdominal distention and has been gaining some weight. She think she has gained about 9 pounds in the last couple days. She denies recent travel or surgery. No history of PE or DVT. No history of kidney stones. [facility] Medical History Vision problems Cerebellar stroke syndrome Skin cancer Low calcium levels Heart disease Chronic headaches Chronic bronchitis Back problem Allergies Brain lesion Seizures Bipolar 1 disorder GERD (gastroesophageal reflux disease) Bradycardia, sinus Chest pain Tobacco abuse Anxiety and depression HLD (hyperlipidemia) HTN (hypertension) CAD (coronary artery disease) COPD (chronic obstructive pulmonary disease) Home Medications ?Medication ?Instructions ?Recorded ?Last Taken ?Type vilazodone 40 mg tablet (Viibryd) 40 mg PO DAILY [facility] 10/08/21 06/07/22 History aspirin 81 mg tablet,delayed 81 mg PO DAILY heart [facility] 06/02/22 06/08/22 History release cariprazine 1.5 mg capsule 3 mg PO DAILY [facility] 11/30/23 Unknown History (Vraylar) clonazepam 0.5 mg tablet 0.5 mg PO BID 11/30/23 Unkno wn History ketorolac 10 mg tablet 10 mg PO QDAY PRN 11/30/23 U nknown History marijuana gummies PO HS 11/30/23 Unknown Histo ry pantoprazole 40 mg tablet,delayed 40 mg PO DAILY #90 t abs 11/30/23 Unknown Rx release sennosides 8.6 mg capsule (senna) 8.6 mg PO DAILY PRN 11/30/23 Unknown History ezetimibe 10 mg tablet 10 mg PO DAILY #90 tabs 06/04 11/24 Unknown Rx acetaminophen 325 mg capsule 650 mg PO ONCE PRN Unknown History bupropion HCl 300 mg 24 hr tablet, 300 mg PO QAM 11/24 Unknown History extended release ondansetron HCl 8 mg tablet 8 mg PO Q8 11/24/24 Unknow n History trazodone 100 mg tablet 400 mg PO QHS 11/24/24 Unkno wn History metoprolol succinate 25 mg 12.5 mg (1/2 x 25 mg) PO DA DEANNE #45 12/21/24 Unknown Rx tablet,extended release 24 hr tabs evolocumab 140 mg/mL subcutaneous 140 mg subcut Q2W #6 mL 02/01/25 Unknown Rx pen injector (Repcristinaa JustinKodakick) lumateperone 42 mg capsule 42 mg PO QDAY 02/28/25 Unkn own History (Caplyta) melatonin 3 mg capsule 3 mg PO HS PRN 02/28/25 Unkn own History nitro PO 02/28/25 Unknown History nystatin 100,000 unit/gram topical 1 applic topical QD AY 02/28/25 Unknown Hi story powder methenam 118 mg-m.blue 10 1 tab PO .qid PRN Bladder pa in #90 03/01/25 Unknown Rx mg-s.phos 40.8 mg-p.salic 36 caps mg-hyos capsule (Uro-MP) hydrocodone-acetaminophen 5-325mg 1 tab PO Q4H PRN PRN Pain 2 days 03/06/25 Unknown Rx 5mg-325mg #10 TABLETS Allergy/AdvReac Type Severity Reaction Status Date / Time adhesive tape Allergy Hives Verified 03/06/25 10:28 aspirin (ASA) Allergy Other Verified 03/06/25 10:28 budesonide (From Symbicort) Allergy Anaphylaxis Verified 03/06/25 10:28 formoterol (From Symbicort) Allergy Anaphylaxis Verified 03/06/25 10:28 latex Allergy Hives Verified 03/06/25 10:28 Penicillins (PCN) Allergy Hives Verified 03/06/25 10:28 Family History Mother CAD (coronary artery disease) Heart disease Hypertension Myocardial infarction Father CAD (coronary artery disease) CVA (cerebral vascular accident) Heart disease Hypertension Surgical History History of biopsy (~10/2022) History of [place] fundoplication Hx of tonsillectomy H/O: hysterectomy History of cholecystectomy History of heart artery stent Social History household members: spouse Smoking Status: Current every day smoker tobacco type: cigarettes alcohol intake: never substance use type: marijuana caffeine: Yes ROS ROS ED Review of Systems ROS Unobtainable: other Constitutional Constitutional ED: Reports lethargy; Denies chills, fever(s), sweats or weight loss Eyes Eyes: Denies blurry vision, change in vision or diplopia ENT ENT ED: Denies rhinorrhea or sore throat Cardiovascular Cardiovascular: Denies chest pain, orthopnea or racing heartbeat Respiratory/Chest Respiratory/Chest: Denies cough, dyspnea, dyspnea on exertion, orthopnea or sputum Gastrointestinal Gastrointestinal: Reports abdominal pain; Denies diarrhea, nausea or vomiting Genitourinary Genitourinary ED: Reports other Details: Urinary incontinence ; Denies dysuria, hematuria or urinary frequency Musculoskeletal Musculoskeletal: Denies arthralgias, back pain, myalgias or neck pain Integumentary Denies abscess, Abrasions or rash Neurologic Neurologic: Denies headache(s) or weakness Psychiatric Psychiatric: Denies anxiety, depression or suicidal thoughts Endocrine Endocrinology: Denies polydipsia, polyphagia or polyuria Hematologic/Lymphatic Hematologic/Lymphatic: Denies easy bleeding, easy bruising or lymphadenopathy Allergic/Immunologic Allergic/Immunologic ED: Denies mouth swelling, tongue swelling or urticaria EXAM Physical Exam Const Vital Signs: 03/06/25 10:27 03/06/25 12:26 Temperature 97.4 F L Temperature Source Oral Pulse Rate 76 61 Respiratory Rate 18 14 Blood Pressure 181/96 H 147/76 H Blood Pressure Mean 124 99 Pulse Ox 100 98 Oxygen Delivery Method Room Air Room Air Positive well nourished and well developed General Appearance ED: well developed and NAD HEENT Reports TM's clear and moist mucous membranes normocephalic and atraumatic; Negative for trauma or tenderness Tympanic Membrane ED: Yes TM's clear Eyes PERRL and EOMs intact bilaterally General Eye ED: Negative for pale conjunctiva or scleral icterus Neck no lymphadenopathy, supple and no JVD General: Negative for tenderness Chest Wall inspection of chest normal and palpation of chest normal Chest: Negative for tenderness Resp normal respiratory effort and clear to auscultation bilaterally Effort and Inspection: Negative for respiratory distress or pain with movement Auscultation: Negative for rhonchi, wheezes or diminished lung sounds Cardio regular rate, regular rhythm, S1 normal heart sound, S2 normal heart sound and no murmurs Peripheral Pulses: pulses 2+ throughout GI normal to inspection, nondistended, normoactive bowel sounds, soft to palpation, non-distended and no masses GI Narrative: Tenderness to palpation over right upper quadrant and right lower quadrant with some guarding. There is no rebound, rigidity, or peritoneal signs. No mass palpated. Back/Spine no CVA tenderness and no thoracic nor lumbar tenderness Extremity normal to inspection General Extremety ED: Negative for edema General Extremity: Negative for edema Neuro oriented x3, CN's II-XII intact bilaterally, no sensory deficits noted and gait normal Sensorium / Orientation: awake, alert, oriented to person, oriented to place and oriented to time Motor Exam: strength 5/5 throughout and strength abnormal Psych mental status grossly normal Skin no rashes or lesions noted and no wounds MDM MDM MDM Narrative Medical decision making narrative: Patient presents with right sided upper abdomen pain x 3 days. She has had no fever cough. But pain is worse should she cough or bends or sneeze. IV line established. EKG obtained on arrival because of the upper abdomen pain that showed a sinus rhythm with rate of 61 bpm with no acute ST segment changes. CBC with differential showed a normal white count of 5.4 with hemoglobin 11 and platelet count of 237. Chemistries unremarkable other than slightly depressed potassium at 3.1. BUN was less than 2 and creatinine 0.7. LFTs were normal. Lipase normal. Urinalysis was normal. CTA of the chest and abdomen pelvis obtained showed no acute abnormalities other than a little bit of a hydroureter on the left side away from this pain. Patient did receive 2 mg of morphine and 4 mg of Zofran for pain. This point should be discharged to home with a prescription for Vista. Etiology of her pain is unclear. I do not see a rash to think of shingles. She denies injury. I do not think she is having acute coronary syndrome as pain is positional. Pain is reproducible with palpation Lab Data Attestation: I reviewed the patient's lab results. Labs: Laboratory Results - last 24 hr 03/06/25 03/06/25 11:07 12:10 WBC 5.4 RBC 4.84 Hgb 11.0 L Hct 34.8 L MCV 71.9 L MCH 22.7 L MCHC 31.6 L RDW Std Deviation 45.7 H RDW Coeff of Benigno 18.2 H Plt Count 237 MPV 8.2 Immature Gran % (Auto) 0.400 Neut % (Auto) 75.1 H Lymph % (Auto) 15.3 L Jackson % (Auto) 7.5 Eos % (Auto) 1.3 Baso % (Auto) 0.4 Absolute Neuts (auto) 4.0 Absolute Lymphs (auto) 0.82 L Nucleated RBC % 0 Sodium 132 L Potassium 3.1 L Chloride 95 L Carbon Dioxide 26.8 Anion Gap 10 BUN < 2 L Creatinine 0.70 Estim Creat Clear Calc 102.28 Est GFR (MDRD) Non-Af 101 BUN/Creatinine Ratio UNABLE TO CALCULATE L Glucose 124 H Lactic Acid 1.5 Calcium 8.7 Total Bilirubin 0.28 AST 16 ALT 14 Alkaline Phosphatase 102 Total Protein 6.5 Albumin 4.0 Globulin 2.5 Albumin/Globulin Ratio 1.6 Lipase 19 Urine Color Yellow Urine Clarity Clear Urine pH 7.0 Ur Specific [place] 1.005 Urine Protein Negative Urine Glucose (UA) Normal Urine Ketones Negative Urine Occult Blood 10 H Urine Nitrite Negative Urine Bilirubin Negative Urine Urobilinogen Normal Ur Leukocyte Esterase Negative Urine RBC 0 SEEN Urine WBC 0 SEEN Ur Squamous Epith Cells 0-5 SEEN Urine Bacteria 0 SEEN Urine Mucus 0 SEEN Radiography Diagnostic Testing: Clinical Impression(s) from Imaging Studies Chest/Abdomen/Pelvis CT 03/06/25 11:30 IMPRESSION: Left hydronephrosis and left hydroureter down to the left hemipelvis without evidence of intraluminal calculus. There is evidence of haziness surrounding in the distal portion of the left ureter as it crosses the left common iliac artery. Free fluid in the pelvis. Reading Location: [facility] EKG Initial EKG: Attestation: I personally reviewed and interpreted this EKG as follows: Comments: Sinus rhythm with rate of 61 bpm with no acute ST segment changes Discharge Plan Triage Chief Complaint: Flank Pain ED Provider: Dorian De La Rosa Dx/Rx/DC Orders Clinical Impression: Abdominal pain Instructions: ED Abdominal Pain Unkn Cause Fem Prescriptions: New hydrocodone-acetaminophen 5-325 mg tablet 1 tab PO Q4H PRN PRN (Reason: Pain) 2 Days Qty: 10 0RF No Action trazodone 100 mg tablet 400 mg PO QHS clonazepam 0.5 mg tablet 0.5 mg PO BID ketorolac 10 mg tablet 10 mg PO QDAY PRN senna 8.6 mg capsule 8.6 mg PO DAILY PRN pantoprazole 40 mg tablet,delayed release (DR/EC) 40 mg PO DAILY Qty: 90 3RF marijuana gummies PO HS ondansetron HCl 8 mg tablet 8 mg PO Q8 acetaminophen 325 mg capsule 650 mg PO ONCE PRN bupropion HCl 300 mg tablet extended release 24 hr 300 mg PO QAM nystatin 100,000 unit/gram powder 1 applic topical QDAY Caplyta 42 mg capsule 42 mg PO QDAY melatonin 3 mg capsule 3 mg PO HS PRN nitro PO Uro-MP 118-10-40.8-36 mg capsule 1 tab PO .qid PRN (Reason: Bladder pain) Qty: 90 3RF Rx Instructions: administer with plenty of fluids vilazodone [Viibryd] 40 mg Tablet 40 mg PO DAILY aspirin 81 mg Tablet,Delayed Release (Dr/Ec) 81 mg PO DAILY Vraylar 1.5 mg capsule 3 mg PO DAILY ezetimibe 10 mg tablet 10 mg PO DAILY Qty: 90 3RF metoprolol succinate 25 mg tablet extended release 24 hr 12.5 mg PO DAILY Qty: 45 3RF Repatha SureClick 140 mg/mL pen injector 140 mg subcut Q2W Qty: 6 3RF Primary Care Provider: Lida Cool Referrals: Lida Cool DO [Primary Care Provider, Internal Medicine] - 3-5 Days Print Language: Slovenian Disposition Disposition: Home, Self Care
--- NOTE | 2025-03-06 10:59 | EKG12_ITS ---
Test Reason : Blood Pressure : */* mmHG Vent. Rate : 61 BPM Atrial Rate : 61 BPM P-R Int : 178 ms QRS Dur : 90 ms QT Int : 454 ms P-R-T Axes : 32 47 64 degrees QTcB Int : 457 ms Normal sinus rhythm Normal ECG Confirmed by Michael Valencia ([id number]), proposal editor JANEL CHEN ([id number]) on 03/07/2025 12:38:34 PM Referred By: Confirmed By: Michael Valencia
[2025-03-06 11:13] LABS: Hematocrit 34.8 % (37-47); Hemoglobin 11.0 g/dL (12.0-15.0); Immature Granulocytes Count 0.020 X10^3/uL (0.0-0.0); Mean Corp Hgb Conc 31.6 g/dL (32-36); Mean Corpuscular Volume 71.9 fL (81-99); Mean Platelet Vol. 8.2 fl (6.2-12.0); NRBC Flagged by Analyzer 0 % (0-5); Platelet Count 237 K/mm3 (150-450); RBC Distribution Width CV 18.2 % (11.6-14.6); RBC Distribution Width SD 45.7 fl (35.1-43.9); Red Blood Count 4.84 M/mm3 (4.2-5.4); White Blood Count 5.4 K/mm3 (4.4-11.0)
[2025-03-06] MEDS: 0.9% Normal Saline (1000mL) 1,000 ML 125 ML IV (11:14)
--- NOTE | 2025-03-06 11:30 | CT_ITS ---
PROCEDURE: CT CHEST, ABD, PEL W/CONTRAST 03/06/2025 REASON FOR EXAM: UPPER ABDOMENT PAIN ON RIGHT Right flank pain. COPD. TECHNIQUE: Chest, abdomen and pelvis CT with intravenous contrast. Coronal and Sagittal reconstruction series were provided. One or more dose reduction techniques were used (e.g., Automated exposure control, adjustment of the mA and/or kV according to patient size, use of iterative reconstruction technique. PATIENT PREPARATION: Per protocol ORAL CONTRAST TYPE: None. CONTRAST: Isovue-300 VOLUME: 100mL RADIATION DOSE SUMMARY: CTDlvol: 17 mGy DLP: 1676.43 mGycm COMPARISON: None FINDINGS: CT CHEST: Hardware: None Lymph nodes: No suspicious lymph nodes are seen. Heart and Vasculature: The heart is nonenlarged. Coronary artery calcification is seen. No evidence of pulmonary embolism. Lungs and Airways: Mild linear atelectasis and/or scarring at the anterior aspect of the right lower lobe. Minimal scarring at the left lung base. Pleura: No pleural effusion. Bones: Degenerative changes of the thoracic spine. CT ABDOMEN/PELVIS: Liver: Hepatomegaly. Gallbladder: Surgically absent. Spleen: Normal size. Pancreas: Normal size without evidence of mass surrounding inflammation or ductal dilation. Adrenals: Unremarkable Kidneys: Left hydronephrosis and left hydroureter down to the distal ureter just proximal to the bladder. No radiopaque calculus is seen. Bladder: Unremarkable. Reproductive Organs: Status post hysterectomy. Bowel: Nonspecific bowel gas pattern. Appendix: Status post appendectomy. Lymph nodes: Unremarkable. Vasculature: Mild diffuse atherosclerotic calcifications are noted. Peritoneum / Retroperitoneum: [id number] amount of free fluid is seen in the cul-de-sac. Multiple phleboliths are seen. Bones: Degenerative changes of the spine. CT/CT Chest, Abd, Pel w/Contrast IMPRESSION: Left hydronephrosis and left hydroureter down to the left hemipelvis without ev idence of intraluminal calculus. There is evidence of haziness surrounding in the distal portion of the left ureter as it crosses the left common iliac artery. Free fluid in the pelvis. Reading Location: [id number]
[2025-03-06 11:58] LABS: Lipase 19 U/L (13-75)
[2025-03-06 12:09] LABS: AST(SGOT) 16 U/L (<=31); Alanine Aminotransfer ALT/SGPT 14 U/L (<=34); Albumin, Serum 4.0 g/dL (3.5-5.0); Alkaline Phosphatase 102 U/L (35-104); Anion Gap 10 (5-15); BUN < 2 mg/dL (4-19); BUN/Creat Ratio UNABLE TO CALCULATE RATIO (10-20); Calcium,Total 8.7 mg/dL (7.6-11.0); Carbon Dioxide 26.8 mmol/L (21.0-32.0); Chloride 95 mmol/L (98-108); Estimated Creatinine Clearance 102.28 ml/min (50-250); Globulin 2.5 g/dL (2.2-4.2); Glucose 124 mg/dL (70-99); Potassium 3.1 mmol/L (3.3-5.1)
[2025-03-06 12:14] LABS: Mucous, Urine 0 SEEN /hpf (<or=2+); Red Blood Cells-Urine 0 SEEN /hpf (0-5)
[2025-03-06 12:16] LABS: Color, Urine Yellow (Yellow); Glucose, Dipstick Normal (Normal); Ketone-Dipstick Negative (Negative); Leukocyte Esterase-Dipstick Negative /ul (Negative); Nitrite-Dipstick Negative (Negative); Occult Blood-Urine 10 /ul (Negative); Protein-Dipstick Negative (Negative); Specific Gravity, Urine 1.005 (1.002-1.030); Urine Bilirubin Dipstick Negative (Negative)
[2025-03-06 12:25] LABS: Squamous Epithelial Cells - UA 0-5 SEEN /hpf (5-10)
[2025-03-06 12:26] VITALS: BP 147/76; PULSE 61; RESP 14; O2SAT 98
[2025-03-06 13:33] VITALS: BP 138/74; PULSE 71; RESP 16; TEMP 36.8; O2SAT 98
== END 2025-03-06 13:36 | disposition home or self-care (01) ==
PROVIDERS: Emergency Provider Emergency Medicine; PCP Internal Medicine; Visit Provider Emergency Medicine
DX: R10.10 Upper abdominal pain, unspecified (principal); F31.9 Bipolar disorder, unspecified; J44.9 Chronic obstructive pulmonary disease, unspecified; G40.909 Epilepsy, unspecified, not intractable, without status epilepticus; R14.0 Abdominal distension (gaseous); R10.A0 Flank pain, unspecified side; I10 Essential (primary) hypertension; K21.9 Gastro-esophageal reflux disease without esophagitis; F41.9 Anxiety disorder, unspecified; I25.10 Atherosclerotic heart disease of native coronary artery without angina pectoris; E78.5 Hyperlipidemia, unspecified; F17.210 Nicotine dependence, cigarettes, uncomplicated; Z95.5 Presence of coronary angioplasty implant and graft; Z79.82 Long term (current) use of aspirin; Z79.899 Other long term (current) drug therapy
CPT/HCPCS: 71260; 74177; 80053; 81001; 83605; 83690; 85025; 93005; 96361; 96374; 96375; 99283; Q9967; A4216; J2405

== ENCOUNTER → 2025-04-13 | Outpatient (CLI) | payer OTHER, BC, SELFPAY ==
--- NOTE | 2025-04-13 17:00 | CT_ITS ---
PROCEDURE: CT ABD/PELVIS W/WO CONTRAST 04/13/2025 REASON FOR EXAM: LEFT HYDROURETERONEPHROSIS TECHNIQUE: Procedure Code: [id number] Modality: CT Procedure: CT ABD/PELVIS W/WO CONTRAST Coronal and Sagittal reconstruction series were provided. CONTRAST: Isovue 370 VOLUME: 98 mL One or more dose reduction techniques were used (e.g., Automated exposure control, adjustment of the mA and/or kV according to patient size, use of iterative reconstruction technique. RADIATION DOSE SUMMARY: CTDlvol: 89 mGy DLP: 3814 mGycm COMPARISON: March 06, 2025 FINDINGS: Lung bases: Clear Liver: Normal Gallbladder: Cholecystectomy Spleen: Small calcified granulomas. Pancreas: Normal. Adrenals: Normal Kidneys: 4.5 mm calculus is shown at the posterior left lower pole. Mild hydronephrosis and hydroureter is seen. The caliber of the ureter transitions at the level of L5 where there is some stranding in the adjacent fat. Right kidney and collecting system appear unremarkable. Bladder: Normal. Pelvic phleboliths. Reproductive Organs: Hysterectomy Bowel: Small sliding hiatus hernia. Small bowel is normal. Colon is unremarkable. Appendix: Normal Lymph nodes: None appear enlarged Vasculature: Moderate atherosclerotic plaque without aneurysm. Peritoneum / Retroperitoneum: No free air, free fluid or mass. Bones: Lower lumbar facet hypertrophy. CT/CT Abd/Pelvis W/WO Contrast IMPRESSION: Left lower pole renal calculus. Hydronephrosis and hydroureter on the left related to an abrupt transition of t he mid ureter at the level of L5. 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 Urology consultation sugges armida. Cholecystectomy Reading Location: [id number]
--- OUTSIDE RECORDS SUMMARY | 2025-04-13 17:02 | XMS RPT_ITS | CCD ---
Author Organization [facility] Care Team Providers Care Custodial Operations Manager Name Role Phone Yakovmarco antonioMichael friedman Unavailable Unavailable Frastevenssa, Unavailable Unavailable Frastevenssa, Unavailable Unavailable Yakovstevenssa, Unavailable Unavailable Solis Cool Unavailable Sydney Waldemar M Unavailable Gravius, Shonna Unavailable Unavailable Unavailable Unavailable Tio Patrick Unavailable Unavailable Tio Kirkpatrick Unavailable Unavailable Ciesa, Citlali Unavailable Radha Mcadams Unavailable Unavailable Leta, Teagan Unavailable Unavailable Slarb, Rachel Unavailable Unavailable Sibilia, Berto Unavailable Travon DO, Solis Unavailable Casimiro BID CLERK, Tio Unavailable Unavailable Slarb BID CLERK, Rachel Unavailable Unavailable Abbe BID CLERK, Radha Unavailable Unavailable Ciesa MARKETING AND OUTREACH COORDINATOR, Citlali Unavailable Gravius SENIOR DIRECTOR, Shonna Unavailable Unavailable Leta BID CLERK, Teagan Unavailable Unavailable Unavailable Unavailable Lulú Merrill MA Unavailable Unavailable Travon DO, Solis Unavailable Ciesa, Paula Unavailable Ciesa, Paula Unavailable Dr. Raymond Pitts Unavailable Dr. Solis Cool Primary Care Provider Dr. Keyur Palmer Emergency Provider [phone] Dr. Carmen Frias Admit Provider [phone] Carmen Frias Attending Provider [phone] Dr. Carmen Frias Other Provider [phone] Wililam Shine Attending Provider Dr. Juan Daniel [place] Emergency Provider Dr. Blayne Hawley Attending Provider Unavailable Dr. Blayne Hawley Other Provider Unavailable Marcia DE, Kayela Unavailable Unavailable Corrie Alvares Unavailable Solis Cool DO Primary Care Provider CAMMIE SHEEHAN, Elder Salazar Admitting Unavailab riley BONDS MD, Elder Salazar Attending Unavailab le TRAVONSOLIS MOODY Primary Care Unavailable BERTO LOPEZ DO L Consulting Unavailable Konstan [phone], Berto [phone] Co nsulting Unavailable RENA SHEEHAN, ALONA Lucas Consulting Unavailable BURK RUSH FARRELL K Consulting Unavailable MANTELL MECHANICAL ASSEMBLER, CORRIE Cramer Consulting Unavailab riley BONDS MD, Elder Salazar Consulting Unavailab SOLIS Jarrell Consulting Unavailable SOLIS COOL Primary Care Unavailable SOLIS COOL Consulting Unavailable SYDNEY WALDEMAR M Admitting Unavailable SYDNEY WALDEMAR Arelis Attending Unavailable SYDNEY WALDEMAR M Consulting Unavailable MANTELL MECHANICAL ASSEMBLER, CORRIE Cramer Attending Unavailab le MANTELL MECHANICAL ASSEMBLER, CORRIE Cramer Admitting Unavailab le SOLIS COOL Consulting Unavailable SOLIS COOL Primary Care Unavailable MANTELL MECHANICAL ASSEMBLER, CORRIE Cramer Attending Unavailab le MANTELL MECHANICAL ASSEMBLER, CORRIE Cramer Admitting Unavailab le TRAVON, SOLIS Primary Care Unavailable MANTELL MECHANICAL ASSEMBLER, CORRIE Cramer Consulting Unavailab le SOLIS COOL Consulting Unavailable MANTELL MECHANICAL ASSEMBLER, CORRIE Cramer Consulting Unavailab le MANTELL MECHANICAL ASSEMBLER, CORRIE Cramer Attending Unavailab le TRAVON, SOLIS Primary Care Unavailable MANTELL MECHANICAL ASSEMBLER, CORRIE Cramer Admitting Unavailab le TRAVONSOLIS MOODY Consulting Unavailable Rl SHEEHAN, William Redmond Unavailable Solis Cool DO Attending Unavailable Solis Cool DO Consulting Unavailable Rad Pro DO Unavailable Dr. Solis Cool Primary Care Provider Dr. Solis Cool Referring Provider [facility] CHAR FILTER OPERATOR HELPER, CHAR FILTER OPERATOR HELPER-Conner Ortiz Attending Provider Dr. William Shine Attending Provider Travon DO, Solis Crow Primary Care Provider Olivier HEAT WELDER PLASTICS, Christine Unavailable Unavailable Valera BID CLERK, Fran Unavailable Unavailable Travon DO, Solis Crow Primary Care Provider SOLIS COOL Primary Care Unavailab URI Bailey Attending Unavailable LIBERTAD SANTIAGO Attending Unavailable SOLIS COOL Primary Care Unavailab le [place] HEAT WELDER PLASTICS, Christine Unavailable Unavailable Aradine DO, Rad Unavailable Unavailabl e Travon DO, Dr. Hilton Primary Care Provider [phone] Travon FARRELL, Dr. Hilton Referring Provider [phone] Russ Anderson Attending Provider Russ Anderson Referring Provider [phone] Russ Anderson Other Provider Rl SHEEHAN, Dr. Thomas Attending Provider [phone] SOLIS COOL Primary Care Unavailab le NEME MERCANTETANIA Attending Unavailabl e NEME MERCTANIA DAVIES Referring Unavailabl e TRAVONSOLIS Primary Care Unavailab le HUIZAR-ARMSTRONG, CODIE Referring Unavaila ble TRAVONSOLIS MOODY Primary Care Unavailab le HUIZAR-ARMSTRONG, CODIE Attending Unavaila ble HUIZAR-ARMSTRONGCODIE Referring Unavaila ble TRAVONSOLIS Primary Care Unavailab le NEME MERCANTE, TANIA Attending Unavailabl e TRAVONSOLIS Primary Care Unavailab le TRAVONSOLIS Primary Care Unavailab le MELLORS, ANNAMARIA Referring Unavailable TRAVONSOLIS MOODY Primary Care Unavailab le SELF Referring Unavailable HUIZAR-ARMSTRONG, CODIE Attending Unavaila ble TravonSolis moody Unavailable Solis Cool Referring Unavailable Solis Cool Primary Care Unavailable Solis Cool Primary Care Unavailable Russ Sutherland Referring Unavailable Russ Sutherland Attending Unavailable Travon, Solis Primary Care Unavailable Demiter, Russ Referring Unavailable Demiter, Russ Attending Unavailable Ungur, Remus Attending Unavailable Travon, Solis Primary Care Unavailable Olivia Mantilla Attending Unavailable Travon, Solis Referring Unavailable Travon, Solis Primary Care Unavailable Travon, Solis Primary Care Unavailable Demiter, Russ Referring Unavailable Rl, William Attending Unavailable Demiter, Russ Consulting Unavailable Travon, Solis Primary Care Unavailable Travon, Solis Referring Unavailable Demiter, Russ Attending Unavailable Allergies Allergy Classification Reported Allergen(s) Allergy Type Date of Onset Reaction(s) Facility Aspirin (1 source) Aspirin Drug Allergy 10-09-19 Other: See Comments [facility] Budesonide / formoterol (7 sources) Budesonide / formoterol; Translations: [Symbicort *ANTIASTHMATIC AND BRONCHODILATOR AGENTS*] Drug Allergy 06-24-19 Other: See Comments [facility] Work Phone: Corticosteroids (1 source) Budesonide Drug Allergy 10-09-19 Other: See Comments [facility] formoterol (1 source) formoterol Drug Allergy 10-09-19 Other: See Comments [facility] Latex (1 source) Latex Substance Allergy 10-09-19 Other: See Comments [facility] Penicillins (antibiotic) (1 source) Penicillins Drug Allergy 10-09-19 Other: See Comments [facility] (20 sources) Budesonide / formoterol; Translations: [Symbicort *ANTIASTHMATIC AND BRONCHODILATOR AGENTS*] Drug Allergy 06-24-19 Other: See Comments [facility] Work Phone: (1 source) Adhesive Tape Allergy to substance 10-09-19 Hives Work Phone: (20 sources) Aspirin; Translations: [ASPIRIN] Drug Allergy 10-09-19 Other: See Comments (20 sources) Budesonide; Translations: [BUDESONIDE] Drug Allergy 10-09-19 Other: See Comments (20 sources) formoterol; Translations: [FORMOTEROL] Drug Allergy 10-09-19 Other: See Comments (20 sources) Latex; Translations: [LATEX] Allergy to substance 10-09-19 Other: See Comments (20 sources) Penicillins; Translations: [Penicillins] Allergy to substance 10-09-19 Other: See Comments (11 sources) Adhesive Tape; Translations: [adhesive tape] Allergy to substance 11-20-19 Hives (20 sources) Adhesive Tape-Silicones; Translations: [ADHESIVE TAPE-SILICONES] Drug Allergy 10-09-19 Other: See Comments [facility] (1 source) Aspirin Drug Allergy [facility] Repository (1 source) Budesonide / formoterol Drug Allergy [facility] Repository (1 source) Latex Drug allergy (disorder) [facility] Repository (3 sources) Budesonide / formoterol; Translations: [BUDESONIDE-FORMO TEROL] Drug Allergy 06-24-19 [facility] Other [place] Repository (1 source) Aspirin Drug Allergy 03-06-20 Repository (1 source) Budesonide Drug Allergy 03-06-20 Repository (1 source) formoterol Drug Allergy 03-06-20 Repository (1 source) Latex Drug allergy (disorder) 03-06-20 Repository Medications Current Medications Medication Drug Class(es) [...] every 4 hours as needed for pain. clonazePAM 0.5 mg oral tablet (20 sources) Benzodiazepine Start: take 1 tablet by mouth twice daily Clonazepam 0.5 mg tablet Active 0.5 mg PO TWICE A DAY November 30, 2023 12:00am Start: 05-27-2022 End: 10-05-2022 take 1 tablet by mouth twice daily Clonazepam 0.5 mg Tablet Discontinued 0.5 mg PO TWICE A DAY June 02, 2022 1:00am October 05, 2022 10:12am anxiety Start: 07-05-2020 take 0.5 mg by mouth twice daily Clonazepam Active 0.5 MG PO TWICE A DAY July 05, 2020 10:05am Start: 01-22-2020 End: 04-17-2020 take 1 tablet by mouth twice daily clonazePAM 0.5 MG Oral Tablet 1 Tablet bid for 30 days Quantity: 60 {Tablet} Refills: 0 Ordered: 18-Mar-2020 Solis Cool DO, DO, Kathleen Start : 18-Mar-2020 End : 17-Apr-2020 Inactive Comments: [facility]2020 [facility] Start: 12-14-2019 take 1 tablet by joe th twice daily clonazePAM 0.5 MG Oral Tablet 1 Tablet bid for 30 days Quantity: 60 {Tablet} Refills: 0 Ordered: 15-Dec-2019 Solis Cool DO, DO, Kathleen Start : 15-Dec-2019 Active Comments: sixty f31.10 [facility] 12/[facility]2019 [facility] Start: 11-09-2019 take 1 tablet by joe th twice daily clonazePAM 0.5 MG Oral Tablet 1 Tablet bid for 30 days Quantity: 60 {Tablet} Refills: 0 Ordered: 09-Nov-2019 Solis Cool DO, DO, Kathleen Start : 09-Nov-2019 Active Comments: [facility] 11/09/19 jgravius take 2 tablets by mo uth once daily clonazePAM 0.5 MG Oral Tablet 2 tab daily (0.5 MG) Active Comment on above: [facility] to [facility] 11/09/19 jgravius sixty f31.10 oarrs r ev sixty f31.10 oarrs r [facility] to [facility] 12/24/2019 jgravius[facility] 01/22/2020 [...] End: 03-04-2020 Clotrimazole 10 MG Mouth/Thr oat Elinor 1 (one) Elinor 5 times a day for 10 days Quantity: 50 {Elinor} Refills: 1 Ordered: 04-Mar-2020 Tio Kirkpatrick LPN Start : 19-Feb-2020 End : 04-Mar-2020 Inactive Comments: 5 times a day for 10 days Comment on above: 5 times a day for 10 days Use 1 Elinor as inst ructed five times daily for 7 days. docusate sodium 50 mg / sennosides, snf 8.6 mg oral tablet (20 sources) Start: [...] Quantity: 1 {Milliliter} Refills: 2 Ordered: 02-Apr-2022 Travon FARRELL, Solis Cool DO, Solis Start : 02-Apr-2022 Active Comments: per cardio Start: 10-18-2019 inject 1 mL by subcu taneous injection every month Repatha SureClick 140 MG/ML Subcutaneous Solution Auto-injector 1 (one) Milliliter once month for 0 days Quantity: 1 {Milliliter} Refills: 2 Ordered: 30-Oct-2019 Shonna Aguirre CMA Start : 18-Oct-2019 Active Comments: per cardio Comment on above: per cardio Inject 140 mg subcut aneously every 2 weeks. 24 hr isosorbide mononitrate 30 mg extended release oral tablet (20 sources) Nitrate Vasodilator Start: 3 take 1 tablet by mouth once daily, then take 1 tablet by mouth every twenty-four hours Isosorbide Mononitrate 30 mg Tablet Extended Release 24 Hr Active 30 mg PO DAILY June 02, 2022 1:00am heart take 1 tablet by mouth once adalid [...] (will be provided with radiology test) Indications: 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 disorder (HCC) , Brain lesion MRI [...] (will be provided with radiology test) Indications: 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 disorder (HCC) , Brain lesion MRI [...] Nonsteroidal Anti-inflammatory Drug, Cyclooxygenase Inhibitor Start: 11-30-19 take 1 tablet by mouth once daily as needed Ketorolac 10 mg tablet Active 10 mg PO daily as needed November 30, 2023 12:00am Start: 03-13-2022 End: 05-27-2022 ketorolac 10 mg oral tablet 1 tab prn Tablet prn for 0 days Quantity: 30 {Tablet} Refills: 0 Ordered: 27-May-2022 Travon Solis TravonMore moody DOeen Start : 13-Mar-2022 End : 27-May-2022 Inactive Start: 09-19-2021 take 1 tablet by joe th once as needed Ketorolac 10 MG Oral Tablet 1 tab prn for 0 days Refills: 0 Ordered: 19-Sep-2021 TravonSolis moody DO, DO, Kathleen Start : 19-Sep-2021 Active Comments: This order discontinued per [facility]. Start: 11-09-2019 End: 02-05-2020 take 1 tablet by mouth once as needed Ketorolac 10 MG Oral Tablet 1 tab prn for 0 days Refills: 0 Ordered: 09-Nov-2019 Solis Cool DO, DO, Kathleen Start : 09-Nov-2019 End : 05-Feb-2020 Discontinued Comments: This order discontinued per [facility]. Comment on above: for migranes This order discontin ued per [facility]. lactobacillus combination no.4 (PROBIOTIC) 3 billion cell cap (20 sources) Start: 11-14-2022 lactobacillus combination no.4 (PROBIOTIC) 3 billion cell cap 11/14/2022 Active Start: 11-14-2022 lactobacillus combination no.4 (PROBIOTIC) 3 billion cell cap Lactobacillus Combination No.9 (Adult 50 Plus Probiotic) 4 billion cell capsule (3 sources) Start: 11-24-2024 take 4 capsules by mouth once daily Lactobacillus Combination No.9 (Adult 50 Plus Probiotic) 4 billion cell capsule Active 4000 NMA PO daily November 24, 2024 12:00am administer with a meal marijuana gummies (3 sources) Start: 11-30-2023 marijuana gummies Active PO BEDTIME November 30, 2023 12:00am ondansetron 8 mg oral tablet (20 sources) Serotonin-3 Receptor Antagonist Start: 11-24-2024 take 1 tablet by mouth every eight hours Ondansetron Hcl 8 mg tablet Active 8 mg PO EVERY 8 HOURS November 24, 2024 12:00am Start: 03-13-2022 End: 11-05-2022 take 1 tablet by mouth every eight [...] 01/28/2024 10/14/2024 Discontinued (Course of therapy completed) sennosides, snf 8.6 mg oral capsule (3 sources) Start: 11-30-2023 take 1 capsule by mouth once daily as needed Sennosides (Senna) 8.6 mg capsule Active 8.6 mg PO DAILY as needed November 30, 2023 12:00am traZODone hydrochloride 100 mg oral tablet (20 sources) Serotonin Reuptake Inhibitor Start: 11-24-2024 take 4 tablets by mouth at bedtime [...] Start: 11-08-2019 take 2 tablets by mo ut at bedtime traZODone HCl 100 MG Oral Tablet 2 tab at bedtime for 0 days Refills: 0 Ordered: 08-Nov-2019 Solis Cool DO, DO, Kathleen Start : 08-Nov-2019 Active Comment on above: TAKE 3 TABLETS BY MO UTH EVERY DAY AT BEDTIME Take 400 mg by mouth daily at bedtime. Take 300 mg by mouth daily at bedtime. vilazodone hydrochloride 40 mg oral tablet (20 sources) Start: 09-17-2020 take 1 tablet by mouth once daily Vilazodone (Viibryd) 40 mg Tablet Active 40 mg PO DAILY October 08, 2021 12:00am mental health Start: 07-16-2020 End: 07-22-2020 take 2 tablets [...] Quantity: 180 {Tablet} Refills: 3 Ordered: 14-May-2020 Solis Cool DO, DO, Kathleen Start : 14-May-2020 Active Comments: Total of 40mg daily Start: 12-27-2019 [facility] Viibryd 40 MG Oral Tablet [...] migranes Comment on above: prn for migranes [id number] 200 actuat albuterol 0.09 mg/actuat metered dose [...] Quantity: 1 {Each} Refills: 3 Ordered: 27-May-2022 Rachel Mason LPN Start : 13-Mar-2022 End : 27-May-2022 Inactive Comments: 1 inhaler Start: 03-13-2022 take 2 puff(s) by in halation every four hours as needed Ventolin HFA 108 (90 Base) MCG/ACT Inhalation Aerosol Solution 2 (two) Puff q4hrs prn for 0 days Quantity: 1 {Each} Refills: 3 Ordered: 13-Mar-2022 Solis Cool DO, DO, Kathleen Start : 13-Mar-2022 Active Comments: 1 inhaler Start: 07-05-2020 End: 07-30-2024 Albuterol Sulfate 8.5 GM HFA aerosol inhaler Discontinued 8.5 g INHALATION DAILY July 05, 2020 1:00am November 30, 2023 9:32am breathing Start: 06-28-2020 Albuterol Sulf ate (2.5 MG/3ML) 0.083% Inhalation Nebulization Solution 1 (one) Nebule q6hr prn wheeze and sob for 0 days Quantity: 1 {Box} Refills: 0 Ordered: 28-Jun-2020 Rachel Mason LPN Start : 28-Jun-2020 Active Start: 03-18-2020 Albuterol [...] Quantity: 1 {Inhaler} Refills: 3 Ordered: 18-Jan-2020 Shonna Aguirre CMA Start : 18-Jan-2020 Active 1 ml alirocumab [...] Start: 11-11-2022 take 1 capsule by mo uth once daily aspirin 81 mg cap Take [...] aspirin 81 mg cap Take by mo uth. 0 06/02/2022 11/05/2022 Discontinued Start: 06-02-2022 take 1 tablet by joe th once daily Aspirin 81 mg Tablet,Delayed Release (Dr/Ec) Active 81 mg PO DAILY June 02, 2022 1:00am heart health Comment on above: Take by mouth. Take 81 mg by mouth once daily. Take 1 tablet by joe th every afternoon. atorvastatin 80 mg oral tablet (6 sources) HMG-CoA Reductase Inhibitor Start: 06-08-19 End: [...] 05-Feb-2020 End : 19-Feb-2020 Inactive bacillus subtilis [id number] unt / inulin 1000 mg chewable tablet [...] Start : 05-Feb-2020 End : 22-Feb-2020 Discontinued 24 hr buPROPion hydrochloride 150 mg extended release oral tablet (20 sources) Aminoketone Start: 04-09-2023 End: 11-30-2023 take 1 tablet by mouth once daily Bupropion Hcl 150 mg tablet extended release 24 hr Discontinued 150 mg PO DAILY April 09, 2023 1:00am November 30, 2023 9:32am Start: 06-16-2022 take 1 tablet by joe th once daily in the morning Bupropion Hcl 300 mg tablet extended release 24 hr Active 300 mg PO EVERY MORNING November 24, 2024 12:00am Start: 06-16-2022 take 1 tablet by joe [...] Take 450 mg by mouth every morning. calcium carbonate 550 mg / magnesium hydroxide 110 mg chewable tablet (20 sources) Start: 07-16-19 End: 05-27-19 take 1-2 tablets by mouth once daily at bedtime as needed Rolaids 550-110 mg oral tablet,chewable 1-2 Tablet qhs prn for 0 days Quantity: 30 {Tablet} Refills: 0 Ordered: 27-May-2022 Rachel Mason LPN Start : 15-Jul-2020 End : 27-May-2022 Discontinued carBAMazepine 200 mg oral tablet (20 sources) Mood Stabilizer Start: 06-02-19 End: 04-09-20 take 1 tablet by mouth twice daily [...] Take 400 mg by mouth twice daily. cariprazine 1.5 mg oral capsule (20 sources) Atypical Antipsychotic Start: take 1 capsule by mouth once daily cariprazine (VRAYLAR) 3 mg capsule Take 3 mg by mouth once daily. 03/20/2022 Active Start: 05-13-2020 End: 11-30-2023 take 1 capsule by mouth once daily Cariprazine (Vraylar) 1.5 mg Capsule Discontinued 1.5 mg PO DAILY June 02, 2022 1:00am November 30, 2023 9:34am mental health Start: 02-19-2020 take 1 capsule by [facility] once daily Vraylar 1.5 MG Oral Capsule 1 Capsule daily for 0 days Quantity: 30 {Capsule} Refills: 1 Ordered: 19-Feb-2020 Solis Cool DO, DO, Kathleen Start : 19-Feb-2020 Active Start: 12-14-2019 take 1 capsule by ia ut once daily Vraylar 1.5 MG Oral Capsule 1 Capsule daily for 0 days Quantity: 30 {Capsule} Refills: 1 Ordered: 14-Dec-2019 Solis Cool DO, DO, Kathleen Start : 14-Dec-2019 Active Start: 10-30-2019 take 1 capsule by [facility] once daily Vraylar 1.5 MG Oral Capsule 1 Capsule daily for 0 days Quantity: 30 {Capsule} Refills: 1 Ordered: 30-Oct-2019 Solis Cool DO, DO, Kathleen Start : 30-Oct-2019 Active Comment on above: Mail order. Take 1.5 mg by mouth once daily. Take 3 mg by mouth o nce daily. cetirizine hydrochloride 10 mg oral tablet (3 sources) Histamine-1 Receptor Antagonist Start: 10-08-2021 cetirizine (ZYRTEC) 10 mg tablet Take by mouth. 0 10/08/2021 Suspended Start: 10-08-2021 Cetirizine (Al lergy Relief (Cetirizine)) 10 mg Tablet Active 25 MG PO DAILY October 08, 2021 4:28pm Comment on above: Take by mouth. clopidogrel 75 mg oral tablet (20 sources) P2Y12 Platelet Inhibitor Start: 3 End: take 1 tablet by mouth once [...] Take by mouth. Take 1 tablet by joe th once daily. codeine phosphate 2 mg/ml / [...] 14 {Tablet} Refills: 0 Ordered: 04-Mar-2020 Paula Black Start : 04-Mar-2020 End : 11-Mar-2020 Inactive take 1 tablet by joe twice daily Doxycycline Hyclate 100 MG Oral Capsule 1 tablet BID x 10 days (100 MG) Inactive ezetimibe 10 mg oral tablet (20 sources) Dietary Cholesterol Absorption Inhibitor Start: 06-11-2022 End: 06-29-2024 take 1 tablet by mouth once daily Ezetimibe 10 mg tablet Discontinued 10 mg PO DAILY April 09, 2023 1:00am June 29, 2024 2:42pm Comment on above: Take 10 mg by mouth once daily. Flonase 50 MCG/DOSE Nasal Inhaler (6 sources) [...] days Quantity: 2 {Tablet} Refills: 2 Ordered: 02-Apr-2022 Tio Kirkpatrick LPN Start : 13-Mar-2022 End [...] sources) hair skin and na ils Active hydroCHLOROthiazide 12.5 mg oral tablet (20 sources) Thiazide Diuretic Start : 10-21 End: 11-29 take 1 tablet by mouth once daily Hydrochlorothiazide 12.5 mg tablet Discontinued 12.5 mg PO DAILY April 09, 2023 1:00am November 30, 2023 9:32am Comment on above: Take 12.5 mg by mout h once daily. hydroxychloroquine sulfate 200 mg oral tablet (20 sources) Antimalarial, Antirheumatic Agent Start : 04-12 End: 07-08 take 2 tablets by mouth twice daily, then take 1 tablet by mouth twice daily Hydroxychloroquine Sulfate 200 MG Oral Tablet tad Tablet bid for 0 days Quantity: 12 {Tablet} Refills: 0 Ordered: 08-Jul-2020 Paula Black Start : 12-Apr-2020 End : 08-Jul-2020 Inactive Comments: 2tabs bid for one day then one tab bid for 4days Comment on above: 2tabs bid for one da y then one tab bid for 4days levoFLOXacin 750 mg oral tablet (20 sources) Quinolone Antimicrobial Start : 03-18 End: 04-12 take 1 tablet by mouth once daily in the morning Levaquin 750 MG Oral Tablet 1 (one) Tablet qam for 0 days Quantity: 5 {Tablet} Refills: 0 Ordered: 12-Apr-2020 Radha Mcadams LPN Start : 18-Mar-2020 End : 12-Apr-2020 Inactive losartan potassium 25 mg oral tablet (20 sources) Angiotensin 2 Receptor Gregg Start : 05-22 End: 11-29 take 1 tablet by mouth once daily Losartan 25 mg Tablet Discontinued 25 mg PO DAILY June 02, 2022 1:00am November 30, 2023 9:32am blood pressure Comment on above: Take 25 mg by mouth once daily. melatonin 10 mg oral tablet (20 sources) Start : 06-02 End: 04-09 take 1 tablet by mouth at bedtime [...] on above: Take by mouth. 24 hr metoprolol succinate 25 mg extended release oral tablet (20 sources) beta-Adrenergic Gregg Start: 04-09-2023 End: 12-21-2024 take 2 tablets by mouth once daily Metoprolol Succinate 25 mg tablet extended release 24 hr Discontinued 12.5 mg PO DAILY 45 3 December 20, 2024 2:24pm December 21, 2024 11:04am Start: 06-08-2022 take 1 tablet by joe th every twenty-four hours metoprolol succinate ER (TOPROL XL) 25 mg 24 hr tablet Take by mouth. 0 06/08/2022 Active Start: 06-08-2022 End: 10-05-2022 take 2 tablets by mouth once daily Metoprolol Succinate 25 mg tablet extended release 24 hr Discontinued 12.5 mg PO DAILY June 08, 2022 1:00am October 05, 2022 10:12am HTN Start: 06-08-2022 End: 10-05-2022 take 1 tablet by mouth once daily metoprolol succinate ER (TOPROL XL) 25 mg 24 hr tablet Take 12.5 mg by mouth once daily. 06/08/2022 Active Comment on above: Take by mouth. Take 12.5 mg by mout h once daily. 24 hr nicotine 0.875 mg/hr transdermal system (6 sources) Cholinergic Nicotinic Agonist Start: 06-08-19 End: [...] on above: Take 1 tablet by joe 6 hours as needed. pantoprazole 20 mg delayed release oral tablet (20 sources) Proton Pump Inhibitor Start: 3 End: take 2 tablets by mouth once daily [...] take 1 tablet by mouth once daily Pantoprazole 40 mg tablet,delayed release (DR/EC) Discontinued 40 mg PO DAILY April 09, 2023 1:00am November 30, 2023 9:34am Comment on above: Take 40 mg by mouth once daily. Take 1 tablet by joe th once daily. phenylephrine hydrochloride 25 mg/ml ophthalmic solution (1 source) alpha-1 Adrenergic Agonist Start: 3 End: 3 PHENYLephrine 2.5 % 1 Drop (AK-DILATE, ARNAV-SYNEPHRINE) predniSONE 20 mg oral tablet (20 sources) Start: 1 End: 1 take 1 tablet by mouth three times [...] Quantity: 180 {Tablet} Refills: 3 Ordered: 04-Oct-2020 Solis Cool DO, DO, Kathleen Start : 04-Oct-2020 Active Start: 07-05-2020 take 200 mg by mouth once adalid y Topiramate Active 200 MG PO DAILY July 05, 2020 10:05am Start: 04-08-2020 take 1 tablet by joe twice daily Topamax 100 MG Oral Tablet 1 Tablet bid for 90 days Quantity: 180 {Tablet} Refills: 1 Ordered: 08-Apr-2020 Solis Cool DO, DO, Kathleen Start : 08-Apr-2020 Active Start: 11-09-2019 take 1 tablet by joe twice daily Topamax 100 MG Oral Tablet 1 Tablet bid for 0 days Quantity: 60 {Tablet} Refills: 4 Ordered: 09-Nov-2019 Gravius Pedro DEin Start : 09-Nov-2019 Active Comment on above: [...] Classification Problem Date Documented Da te Episodic/Chronic Abdominal pain (1 source) Unspecified abdominal pain; Translations: [Unspecified abdominal pain] Onset: 03-06-2025 Episodic Acute cerebrovascular disease (20 sources) Cerebrovascular accident; Translations: [Cerebral infarction, unspecified] Onset: 06-25-2022 06-08-2022 Chronic Comment on above: neuro is at [facility] [place] then [place], plavix [...] neoplasm of brain, unspecified] Chronic Cardiac dysrhythmias (13 sources) Sinus bradycardia; Translations: [Bradycardia, unspecified] Onset: 02-05-2025 06-02-2022 Episodic Chronic obstructive pulmonary disease and [...] on above: s/p 2-stent 2018? s/p 2-stent 2018?see s cardio in [place] - annually- DR Lopez s/p 2-stent 2018?see s cardio in [facility] - annually- DR Lopez- 2021 fredrick is stalbe/ Gxt/ echo 2021 normal s/p 2-stent 2018?see s cardio in [facility] - annually- DR Lopez- 2021 visir is stalbe/ Gxt/ echo 2021 normal-2022 new stent placed circ -- old stents [...] Hypokalemia; Translations: [Hypokalemia] Resolved: 03-13-2022 10-10-2021 Episodic Genitourinary symptoms and ill-defined conditions (1 source) Unspecified urinary incontinence; Translations: [Unspecified urinary incontinence] Onset: 02-28-2025 Chronic Headache; including migraine (20 sources) Migraine; Translations: [...] ER-- has inhaler s Other circulatory disease (14 sources) H/O: heart disorder; Translations: [Personal history [...] Sob. Restart prednisoneHad CT of Lung at [facility] 1 month ago Other injuries and conditions [...] on July 18 Other lower respiratory disease (6 sources) Dyspnea on exertion; Translations: [Other forms of dyspnea] 11-24-2024 Episodic Other lower respiratory disease (2 sources) Other forms of dyspnea; Translations: [Other forms of dyspnea] Onset: 02-05-2025 Episodic Other nervous system disorders (20 sources) [...] Episodic Comment on above: just recently quit 2020 Residual codes; unclassified (20 sources) Influenza vaccination declined; Translations: [Influenza vaccination declined (Renamed from Refused influenza vaccine)] 03-13-2022 Episodic Residual codes; unclassified (15 sources) Confusional state; Translations: [Disorientation, unspecified] 06-08-2022 Episodic Residual codes; unclassified (4 sources) Tobacco user; Translations: [Tobacco use] 10-06-2022 Episodic Residual codes; unclassified (1 source) Tobacco use; Translations: [Tobacco use disorder] 10-05-2022 Episodic Residual codes; unclassified (1 source) Personal history of other specified conditions; Translations: [Personal history of other specified diseases] 12-02-2023 Episodic Secondary malignancies (1 source) Secondary malignant neoplasm of brain; 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] 05-03-2023 Chronic Sprains and strains (10 sources) Sprain of ankle; Translations: [Sprain of [...] 10-30-2019 Comment on above: just recently quit 2020 Unclassified (20 sources) Oral yeast infection Unclassified (20 sources) CAD (coronary artery disease) Unclassified (20 sources) BMI 27.0-27.9,adult Unclassified (4 sources) Encounter for gynecological examination with abnormal finding Unclassified (4 sources) Colon cancer screening (Renamed from Encounter for screening for malignant neoplasm of colon) Unclassified (1 source) Low back pain, unspecified; Translations: [Low back pain, unspecified] Onset: 02-26-2025 Viral infection (4 sources) Post-viral disorder; Translations: [Post-COVID syndrome] 07-08-2020 Chronic Comment on above: Apr 10 2020 covid w ith reoccurance of respiratory distress, had flare on July 4 had IV solumedrol x 3 today still Sob. Restart prednisoneHad CT of Lung at [facility] 1 month ago Viral infection (7 sources) [...] Test Name Value Interpretation Reference Range Facility 12 Lead EKGon 03-06-2025 12 Lead EKG [facility] Cardi[facility] Services [address] [place] [address] 12 Lead EKG 03/06/25 1143 MR#: [id number] Acct: [id number] Name: JOSIE LANDIS Rep #: [id number] : 1965 59 From: Michael Valencia MD Attending Dr: Status: DEP ER Ordering Dr: Dorian De La Rosa DO Date: 03/06/25 Location: ED Sex: F C Admitted: Test Reason : Blood Pressure : */* mmHG Vent. Rate : 61 BPM Atrial Rate : 61 BPM P-R Int : 178 ms QRS Dur : 90 ms QT Int : 454 ms P-R-T Axes : 32 47 64 degrees QTcB Int : 457 ms Normal sinus rhythm Normal ECG Confirmed by Michael Valencia ([id number]), acquisitions editor JANEL CHEN ([id number]) on 03/07/2025 12:38:34 PM Referred By: Confirmed By: Michael Valencia 03/07/25 1238 Date Michael Valencia MD CC: Dr. Solis Cool, DO; Dr. Dorian De La Rosa DO Signed Normal CBC W/Diff, Automatedon 11-0 4-2025 Absolute Lymph 0.82 X10 3/uL Low 0.83-4.51 Comment on above: Performed By: #### L 503.6005, L501.2450, L100.0100, L500.4050 #### Laboratory [address] [place], [address] Absolute Neut 4.0 X10 3/uL Normal 2.0-7.7 Comment on above: Performed By: #### L 503.6005, L501.2450, L100.0100, L500.4050 #### Laboratory [address] [place], [address] Basophils/100 WBC (Bld) 0.4 % Normal 0-1 Comment on above: Performed By: #### L 503.6005, L501.2450, L100.0100, L500.4050 #### Laboratory [address] [place], [address] Eosinophils/100 WBC (Bld) 1.3 % Normal 0-5 Comment on above: Performed By: #### L 503.6005, L501.2450, L100.0100, L500.4050 #### Laboratory [address] [place], [address] Erythrocyte distribution width (RBC) [Ratio] 18.2 % High 11.6-14.6 Comment on above: Performed By: #### L 503.6005, L501.2450, L100.0100, L500.4050 #### Laboratory [address] [place], [address] Hematocrit (Bld) [Volume fraction] 34.8 % Low 37-47 Comment on above: Performed By: #### L 503.6005, L501.2450, L100.0100, L500.4050 #### Laboratory [address] [place], [address] Hemoglobin (Bld) [Mass/Vol] 11.0 g/dL Low 12.0-15.0 Comment on above: Performed By: #### L 503.6005, L501.2450, L100.0100, L500.4050 #### Laboratory [address] [place], [address] IG% 0.400 Normal 0.0-0.9 Comment on above: Result Comment: IG% - Immature Granulocytes (promyelocytes, myelocytes and metamyelocytes) > 1% indicates that a LEFT SHIFT is Present. Performed By: #### L 503.6005, L501.2450, L100.0100, L500.4050 #### Laboratory [address] [place], [address] Lymphocytes/100 WBC (Bld) 15.3 % Low 19-41 Comment on above: Performed By: #### L 503.6005, L501.2450, L100.0100, L500.4050 #### Laboratory [address] [place], [address] MCH (RBC) [Entitic mass] 22.7 pg Low 27.0-32.0 Comment on above: Performed By: #### L 503.6005, L501.2450, L100.0100, L500.4050 #### Laboratory [address] [place], [address] MCHC (RBC) [Mass/Vol] 31.6 g/dL Low 32-36 [facility] Comment on above: Performed By: #### L 503.6005, L501.2450, L100.0100, L500.4050 #### Laboratory [address] [place], [address] MCV (RBC) [Entitic vol] 71.9 fL Low 81-99 Comment on above: Performed By: #### L 503.6005, L501.2450, L100.0100, L500.4050 #### Laboratory [address] [place], [address] Monocytes/100 WBC (Bld) 7.5 % Normal 0-10 Comment on above: Performed By: #### L 503.6005, L501.2450, L100.0100, L500.4050 #### Laboratory [address] [place], [address] Neutrophils/100 WBC (Bld) 75.1 % High 47-70 Comment on above: Performed By: #### L 503.6005, L501.2450, L100.0100, L500.4050 #### Laboratory [address] [place], [address] Nucleated RBC (Bld) [#/Vol] 0 10*3/uL Normal 0-5 Comment on above: Performed By: #### L 503.6005, L501.2450, L100.0100, L500.4050 #### Laboratory [address] [place], [address] Platelet mean volume (Bld) [Entitic vol] 8.2 fL Normal 6.2-12.0 Comment on above: Performed By: #### L 503.6005, L501.2450, L100.0100, L500.4050 #### Laboratory [address] [place], [address] Platelets (Bld) [#/Vol] 237 10*3/uL Normal 150-450 Comment on above: Performed By: #### L 503.6005, L501.2450, L100.0100, L500.4050 #### Laboratory [address] [place], [address] RBC (Bld) [#/Vol] 4.84 10*6/uL Normal 4.2-5.4 [facility] Comment on above: Performed By: #### L 503.6005, L501.2450, L100.0100, L500.4050 #### Laboratory [address] [place], [address] RDW SD 45.7 fl High 35.1-43.9 Comment on above: Performed By: #### L 503.6005, L501.2450, L100.0100, L500.4050 #### Laboratory [address] [place], [address] WBC (Bld) [#/Vol] 5.4 10*3/uL Normal 4.4-11.0 [facility] Comment on above: Performed By: #### L 503.6005, L501.2450, L100.0100, L500.4050 #### Laboratory [address] [place], [address] CT Chest, Abd, Pel w/Contras ton 03-06-2025 CT Chest, Abd, Pel w/Contrast [facility] Imaging Services [address] [place] [address] CT Chest, Abd, Pel w/Contrast MR#: [id number] Acct: [id number] Name: JOSIE LANDIS Rep #: [id number] : 1965 F 59 From: Meliton blake MD PCP: Dr. Solis Cool, DO Status: REG ER Study: CT Chest, Abd, Pel w/Contrast Date of Exam: Exam# [id number] Ordering Dr: Dorian De La Rosa DO PROCEDURE: CT CHEST, ABD, PEL W/CONTRAST 03/06/2025 REASON FOR EXAM: UPPER ABDOMENT PAIN ON RIGHT Right flank pain. COPD. TECHNIQUE: Chest, abdomen and pelvis CT with intravenous contrast. Coronal and Sagittal reconstruction series were provided. One or more dose reduction techniques were used (e.g., Automated exposure control, adjustment of the mA and/or kV according to patient size, use of iterative reconstruction technique. PATIENT PREPARATION: Per protocol ORAL CONTRAST TYPE: None. CONTRAST: Isovue-300 VOLUME: 100mL RADIATION DOSE SUMMARY: CTDlvol: 17 mGy DLP: 1676.43 mGycm COMPARISON: None FINDINGS: CT CHEST: Hardware: None Lymph nodes: No suspicious lymph nodes are seen. Heart and Vasculature: The heart is nonenlarged. Coronary artery calcification is seen. No evidence of pulmonary embolism. Lungs and Airways: Mild linear atelectasis and/or scarring at the anterior aspect of the right lower lobe. Minimal scarring at the left lung base. Pleura: No pleural effusion. Bones: Degenerative changes of the thoracic spine. CT ABDOMEN/PELVIS: Liver: Hepatomegaly. Gallbladder: Surgically absent. Spleen: Normal size. Pancreas: Normal size without evidence of mass surrounding inflammation or ductal dilation. Adrenals: Unremarkable Kidneys: Left hydronephrosis and left hydroureter down to the distal ureter just proximal to the bladder. No radiopaque calculus is seen. Bladder: Unremarkable. Reproductive Organs: Status post hysterectomy. Bowel: Nonspecific bowel gas pattern. Appendix: Status post appendectomy. Lymph nodes: Unremarkable. Vasculature: Mild diffuse atherosclerotic calcifications are noted. Peritoneum / Retroperitoneum: [id number] amount of free fluid is seen in the cul-de-sac. Multiple phleboliths are seen. Bones: Degenerative changes of the spine. CT/CT Chest, Abd, Pel w/Contrast IMPRESSION: Left hydronephrosis and left hydroureter down to the left hemipelvis without evidence of intraluminal calculus. There is evidence of haziness surrounding in the distal portion of the left ureter as it crosses the left common iliac artery. Free fluid in the pelvis. Reading Location: [id number] CC: Dr. Solis Cool, DO; Dr. Dorian De La Rosa DO Glue Bone Crusher: Signed Normal Comprehensive Metabolic Prof ilon 03-06-2025 Albumin [Mass/Vol] 4.0 g/dL Normal 3.5-5.0 [facility] Comment on above: Performed By: #### L 503.6005, L501.2450, L100.0100, L500.4050 #### Laboratory [address] [place], [address] Albumin/Globulin [Mass ratio] 1.6 {ratio} Normal 0.9-2.4 Comment on above: Performed By: #### L 503.6005, L501.2450, L100.0100, L500.4050 #### Laboratory [address] [place], [address] ALK PHOS 102 U/L Normal 35-104 Comment on above: Performed By: #### L 503.6005, L501.2450, L100.0100, L500.4050 #### Laboratory [address] [place], [address] ALT [Catalytic activity/Vol] 14 U/L Normal <=34 Comment on above: Performed By: #### L 503.6005, L501.2450, L100.0100, L500.4050 #### Laboratory [address] [place], [address] AST [Catalytic activity/Vol] 16 U/L Normal <=31 Comment on above: Performed By: #### L 503.6005, L501.2450, L100.0100, L500.4050 #### Laboratory [address] [place], [address] Bilirubin [Mass/Vol] 0.28 mg/dL Normal 0.00-1.30 [facility] Comment on above: Performed By: #### L 503.6005, L501.2450, L100.0100, L500.4050 #### Laboratory [address] [place], [address] BUN/CRE UNABLE TO CALCULATE Low 10-20 [facility] Comment on above: Performed By: #### L 503.6005, L501.2450, L100.0100, L500.4050 #### Laboratory [address] [place], [address] Calcium [Mass/Vol] 8.7 mg/dL Normal 7.6-11.0 [facility] Comment on above: Performed By: #### L 503.6005, L501.2450, L100.0100, L500.4050 #### Laboratory [address] [place], [address] Chloride [Moles/Vol] 95 mmol/L Low 98-108 [facility] Comment on above: Performed By: #### L 503.6005, L501.2450, L100.0100, L500.4050 #### Laboratory [address] [place], [address] CO2 [Moles/Vol] 26.8 mmol/L Normal 21.0-32.0 Comment on above: Performed By: #### L 503.6005, L501.2450, L100.0100, L500.4050 #### Laboratory [address] [place], [address] Creatinine [Mass/Vol] 0.70 mg/dL Normal 0.70-1.20 [facility] Comment on above: Performed By: #### L 503.6005, L501.2450, L100.0100, L500.4050 #### Laboratory [address] [place], [address] ECRCL 102.28 ml/min Normal 50-250 Comment on above: Performed By: #### L 503.6005, L501.2450, L100.0100, L500.4050 #### Laboratory [address] [place], [address] GAP 10 Normal 5-15 Comment on above: Performed By: #### L 503.6005, L501.2450, L100.0100, L500.4050 #### Laboratory [address] [place], [address] GFR/1.73 sq M.predicted among non-blacks MDRD (S/P/Bld) [Vol rate/Area] 101 mL/min/{1.73_m2} Normal >60 Comment on above: Result Comment: mL/m in/1.73m2 CKD-EPI Creatinine Equation (2020) Performed By: #### L 503.6005, L501.2450, L100.0100, L500.4050 #### Laboratory [address] [place], [address] Globulin (S) [Mass/Vol] 2.5 g/dL Normal 2.2-4.2 Comment on above: Performed By: #### L 503.6005, L501.2450, L100.0100, L500.4050 #### Laboratory [address] [place], [address] Glucose [Mass/Vol] 124 mg/dL High 70-99 [facility] Comment on above: Performed By: #### L 503.6005, L501.2450, L100.0100, L500.4050 #### Laboratory [address] [place], [address] Potassium [Moles/Vol] 3.1 mmol/L Low 3.3-5.1 [facility] Comment on above: Performed By: #### L 503.6005, L501.2450, L100.0100, L500.4050 #### Laboratory [address] [place], [address] Sodium [Moles/Vol] 132 mmol/L Low 133-145 [facility] Comment on above: Performed By: #### L 503.6005, L501.2450, L100.0100, L500.4050 #### Laboratory [address] [place], [address] T PROT 6.5 g/dL Normal 5.9-8.4 Comment on above: Performed By: #### L 503.6005, L501.2450, L100.0100, L500.4050 #### Laboratory [address] [place], [address] Urea nitrogen [Mass/Vol] mg/dL Low 4-19 Comment on above: Performed By: #### L 503.6005, L501.2450, L100.0100, L500.4050 #### Laboratory [address] [place], [address] Emergency Department Summary on 03-06-2025 Emergency Department Summary [facility] Medical Records Department [address] [place] [address] Emergency Department Summary 03/06/25 MR#: [id number] Acct: [id number] Name: JOSIE LANDIS Rep #: [id number] : 1965 59 From: Dorian De La Rosa DO PCP: Dr. Solis Cool, DO Status:DEP ER Location: ED HPI HPI - GI History of Present Illness Chief Complaint: Flank Pain Detail of Chief Complaint: Right abdomen/flank pain Informant: patient Narrative Narrative: Patient presents with abdomen/flank pain that started 3 days ago. Pain is continuous. Feels better if she lays on the right side and worse with cough or sneezing or bending over. Also she states that she has been having some urinary incontinence for about 3 months and recently saw urology who checked a urinalysis and apparently was unremarkable. Patient also describes some abdominal distention and has been gaining some weight. She think she has gained about 9 pounds in the last couple days. She denies recent travel or surgery. No history of PE or DVT. No history of kidney stones. [facility] Medical History Vision problems Cerebellar stroke syndrome Skin cancer Low calcium levels Heart disease Chronic headaches Chronic bronchitis Back problem Allergies Brain lesion Seizures Bipolar 1 disorder GERD (gastroesophageal reflux disease) Bradycardia, sinus Chest pain Tobacco abuse Anxiety and depression HLD (hyperlipidemia) HTN (hypertension) CAD (coronary artery disease) COPD (chronic obstructive pulmonary disease) Home Medications ???Medication ???Instructions ???Recorded ???Last Taken ???Type vilazodone 40 mg tablet (Viibryd) 40 mg PO DAILY mental health 12/2206/07/22 History aspirin 81 mg tablet,delayed 81 mg PO DAILY heart health 06/08/22 History release cariprazine 1.5 mg capsule 3 mg PO DAILY mental health Unknown History (Vraylar) clonazepam 0.5 mg tablet 0.5 mg PO BID 11/30/23 Unknown His tory ketorolac 10 mg tablet 10 mg PO QDAY PRN 11/30/23 Unknown History marijuana gummies PO HS 11/30/23 Unknown History pantoprazole 40 mg tablet,delayed 40 mg PO DAILY #90 tabs 11/30/23 Unknown Rx release sennosides 8.6 mg capsule (senna) 8.6 mg PO DAILY PRN 11/30/23 Unkn own History ezetimibe 10 mg tablet 10 mg PO DAILY #90 tabs 06/29/24 U nknown Rx acetaminophen 325 mg capsule 650 mg PO ONCE PRN 11/24/24 Unknow n History bupropion HCl 300 mg 24 hr tablet, 300 mg PO QAM 11/24/24 Unknown H istory extended release ondansetron HCl 8 mg tablet 8 mg PO Q8 11/24/24 Unknown Histor y trazodone 100 mg tablet 400 mg PO QHS 11/24/24 Unknown His tory metoprolol succinate 25 mg 12.5 mg (1/2 x 25 mg) PO DAILY #45 12/21/24 Unknown Rx tablet,extended release 24 hr tabs evolocumab 140 mg/mL subcutaneous 140 mg subcut Q2W #6 mL 02/01/25 Unknown Rx pen injector (Marlin Randlejudy) lumateperone 42 mg capsule 42 mg PO QDAY 02/28/25 Unknown His tory (Caplyta) melatonin 3 mg capsule 3 mg PO HS PRN 02/28/25 Unknown Hi story nitro PO 02/28/25 Unknown History nystatin 100,000 unit/gram topical 1 applic topical QDAY 02/28/25 U nknown History powder methenam 118 mg-m.blue 10 1 tab PO .qid PRN Bladder pain #90 03/01/25 Unknown Rx mg-s.phos 40.8 mg-p.salic 36 caps mg-hyos capsule (Uro-MP) hydrocodone-acetaminophen 5-325mg 1 tab PO Q4H PRN PRN Pain 2 days 03/06/25 Unknown Rx 5mg-325mg #10 TABLETS Allergy/AdvReac Type Severity Reaction Status Date / Time adhesive tape Allergy Hives Verified 03/06/25 10:28 aspirin (ASA) Allergy Other Verified 03/06/25 10:28 budesonide (From Symbicort) Allergy Anaphylaxis Verified 03/06/25 10:28 formoterol (From Symbicort) Allergy Anaphylaxis Verified 03/06/25 10:28 latex Allergy Hives Verified 03/06/25 10:28 Penicillins (PCN) Allergy Hives Verified 03/06/25 10:28 Family History Mother CAD (coronary artery disease) Heart disease Hypertension Myocardial infarction Father CAD (coronary artery disease) CVA (cerebral vascular accident) Heart disease Hypertension Surgical History History of biopsy ( 10/2022) History of [place] fundoplication Hx of tonsillectomy H/O: hysterectomy History of cholecystectomy History of heart artery stent Social History household members: spouse Smoking Status: Current every day smoker tobacco type: cigarettes alcohol intake: never substance use type: marijuana caffeine: Yes ROS ROS ED Review of Systems ROS Unobtainable: other Constitutional Constitutional ED: Reports lethargy; Denies chills, f (more content not included)... Normal Lactic Acidon 03-06-2025 Lactate [Moles/Vol] 1.5 mmol/L Normal 0.0-2.0 [facility] Comment on above: Order Comment: Y Performed By: #### L 503.6005, L501.2450, L100.0100, L500.4050 #### Laboratory [address] [place], [address] Lipaseon 03-06-2025 Lipase [Catalytic activity/Vol] 19 U/L Normal 13-75 Comment on above: Result Comment: Justin diop note: LIPASE revised reference range effective 22. New Lipase methodology. Expected to produce lower values than the previous assay method. NEW Reference Range: 13 - 75 U/L Performed By: #### L 503.6005, L501.2450, L100.0100, L500.4050 #### Laboratory [address] [place], [address] Urinalysis, Completeon 03-06 EPI,SQUAMOUS 0-5 SEEN Normal 5-10 Comment on above: Order Comment: CLEAN CATCH Performed By: #### L 400.0001 #### Laboratory [address] [place], [address] BACTERIA 0 SEEN Normal None Seen Comment on above: Order Comment: CLEAN CATCH Performed By: #### L 400.0001 #### Laboratory [address] [place], [address] Mucus Ql (Urine sed) 0 SEEN Normal [facility] Comment on above: Order Comment: CLEAN CATCH Performed By: #### L 400.0001 #### Laboratory [address] [place], [address] RBC 0 SEEN Normal 0-5 Comment on above: Order Comment: CLEAN CATCH Performed By: #### L 400.0001 #### Laboratory [address] [place], [address] WBC 0 SEEN Normal 0-5 Comment on above: Order Comment: CLEAN CATCH Performed By: #### L 400.0001 #### Laboratory [address] [place], [address] Spine Lumbar (Routine)on Spine Lumbar (Routine) [facility] Imaging Services [address] [place] [address] Spine Lumbar (Routine) MR#: [id number] Acct: [id number] Name: JOSIE LANDIS Rep #: [id number] : 1965 F 59 From: Edgard Chandra MD PCP: Dr. Solis Cool, Status: REG CLI Study: Spine Lumbar (Routine) Date of Exam: 02/15/25 Exam# [id number] Ordering Dr: Solis Cool DO PROCEDURE: SPINE LUMBAR (ROUTINE) 02/15/2025 REASON FOR EXAM: LOW BACK PAIN WITH RADIATION TECHNIQUE: Procedure Code: MRISPL Modality: MR Procedure: SPINE LUMBAR (ROUTINE) FINDINGS: No acute fracture. Minimal grade 1 anterolisthesis of L4 on L5. Mild disc narrowing with mild disc desiccation is noted at L1-2, L2-3, and L4-5. The bone marrow signal appears unremarkable. The conus medullaris appears unremarkable and terminates at the level of L1. Minimal posterior disc bulging is noted throughout the lumbar spine, with facet arthrosis in the lower lumbar spine. Subsequently, there is no significant thecal sac narrowing throughout the thoracic spine. Minimal to mild bilateral neural foraminal narrowing at L3-4 and L4-5. The paraspinal musculature appears unremarkable. MRI/Spine Lumbar (Routine) IMPRESSION: Very mild lumbar spondylosis. Reading Location: [id number] CC: Dr. Solis Cool DO Glue Bone Crusher: Signed [facility] CNOVon 01-25-2025 CNOV Office Visit (NE50MN ) ----- JOSIE LANDIS ([id number]) 1965 F Date Time Provider Department 01/25/25 9:00 AM TANIA MONROY NE50[facility] During your visit today, we recorded the following information about you: Pulse Blood pressure Weight Height 72/minute 139/85 86.2 kg 1.702 m Tania Monroy MD 02/01/2025 8:45 AM Signed [facility] Patient Name: Josie Landis Date of : 1965 ESTABLISHED EPILEPSY CLINIC NOTE 01/25/2025 9:00 AM Reason for Visit: Seizures and Follow Up Clinical Summary: Ms. Landis is a 59 year old right-handed female seen in [facility]. HISTORY OF PRESENT ILLNESS Handedness: right-handed Age [...] History of bipolar disorder Interval Seizure History Last seen on 06/21/[address] Flores. At the last visit, Trileptal was continued 450 mg BID with plans to obtain OXCBZ levels and plan to follow up with brain tumor. Pt had not had any new seizures Patient is currently taking trileptal 450 mg BID. There are no reports of side effects. Reports compliance, takes medications at 10a, 8-9pm. There have been 5-10 seizures since the last visit. Last seizure this past Wednesday01/19/25. 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 Episodes often happen when already laying down or even asleep. Patient reports a new type of episode which occurred just once in December of this year. This episode involved a sudden drop from standing without associated aura. Patient fell backwards and lost consciousness with significant confusion and difficulty moving on awakening. Pt also with generalized limb shaking observed by during this event. Pt is following with brain tumor team. Most recent MRI without change with no plan for intervention at this time. Plan is for repeat MRI in April 2025 and follow up with purvi tumor at that time. In other health, having frequent episodes of urinary incontinence and new worsening hip pain. Primary care is working these up. Mood: Sees psychiatrist, on new medicine (Caplyta) which patient reports has improved anxiety. Sleep: Horrible due to pain, frequent awakening, and some anxiety. Has been taking THC gummies with some relief. Working: on disability Driving: Short trips Total # of Current Anti-seizure Medications: Side Effects to Current Anti-seizure Medications: Seizure Frequency at First Visit: Longest Seizure-free Interval: Number of seizure types: 2 Seizure-related driv (more content not included)... Normal [facility] Cardiovascular stress test r eportOrdered By: William Shine on 12-19-2024 Study report [facility] [address] [place] [address] MR#: [id number] Acct: [id number] Name: JOSIE LANDIS Rep #: [id number] : 1965 59 From: William Shine MD Primary Care: DO Mary Jose tus: REG CLI Referring Dr: Russ Sutherland Sex: F C Stress Test Report Pharmacologic myocardial perfusion stress test. 59-year-old lady with a history of chest pain. Resting EKG demonstrates normal sinus with a rate of 72 bpm. Resting blood pressure is 150/100 mmHg. 0.4 mg of regadenoson was infused per usual protocol followed by rapid intravenous saline flush injection. Continuous EKG monitoring was performed. The maximum heart rate was 86 bpm which was 52% of max impacted heart rate the maximum workload was 1 metabolic equivalent. At rest there were no ST or T wave changes noted to suggest ischemia and at peak infusion nonspecific ST changes were noted which did not meet the criteria for ischemia. No clinical angina is noted. The final blood pressure was 158 over mmHg. Myocardial perfusion protocol. 13.1 mCi of technetium 99m sestamibi was injected at rest. 0.4 mg of regadenosonwas infused per usual protocol. At peak infusion 40.3 mCi of technetium 99m sestamibi was injected stress images were obtained stress and rest images were reconstructed and compared in the short axis vertical long and horizontal long axis. Gated images were also obtained. Perfusion SPECT analysis: Review of the stress images demonstrate normal uptake of tracer noted in all areas of the myocardium. The resting images similar demonstrated normal uptake of tracer noted in all areas of the myocardium. No areas of reversibility are noted to suggest ischemia and no previous infarct is noted. Gated SPECT analysis: The gated ejection fraction is 77%. Conclusion: Normal pharmacologic myocardial perfusion stress test. Preserved ejection fraction. 12/19/241715 Date _ William Shine MD CC: Dr. Solis Cool DO; SUSAN Pichardo ~ Date Dictated: 12/19/241712 Date Transcribed: 12/19/241712 Glue Bone Crusher: [place] Signed Work Phone: Stress Reporton 12-19-2024 Stress Report [facility] [address] [place] [address] MR#: [id number] Acct: [id number] Name: JOSIE LANDIS Rep #: [id number] : 1965 59 From: William Shine MD Primary Care: Dr. Solis Cool DO Status: REG CLI Referring Dr: Russ Sutherland Sex: F C Stress Test Report Pharmacologic myocardial perfusion stress test. 59-year-old lady with a history of chest pain. Resting EKG demonstrates normal sinus with a rate of 72 bpm. Resting blood pressure is 150/100 mmHg. 0.4 mg of regadenoson was infused per usual protocol followed by rapid intravenous saline flush injection. Continuous EKG monitoring was performed. The maximum heart rate was 86 bpm which was 52% of max impacted heart rate the maximum workload was 1 metabolic equivalent. At rest there were no ST or T wave changes noted to suggest ischemia and at peak infusion nonspecific ST changes were noted which did not meet the criteria for ischemia. No clinical angina is noted. The final blood pressure was 158 over mmHg. Myocardial perfusion protocol. 13.1 mCi of technetium 99m sestamibi was injected at rest. 0.4 mg of regadenoson was infused per usual protocol. At peak infusion 40.3 mCi of technetium 99m sestamibi was injected stress images wer e obtained stress and rest images were reconstructed and compared in the short axis vertical long and horizontal long axis. Gated images were also obtained. Perfusion SPECT analysis: Review of the stress images demonstrate normal uptake of tracer noted in all areas of the myocardium. The resting images similar demonstrated normal uptake of tracer noted in all areas of the myocardium. No areas of reversibility are noted to suggest ischemia and no previous infarct is noted. Gated SPECT analysis: The gated ejection fraction is 77%. Conclusion: Normal pharmacologic myocardial perfusion stress test. Preserved ejection fraction. 12/19/241715 Date William Shine MD CC: Dr. Solis Cool, DO; SUSAN Pichardo Date Dictated: 12/19/241712 Date Transcribed: 12/19/241712 Glue Bone Crusher: CO Signed Normal Absolute lymphocyte countOrd ered By: Russ Sutherland on 11-24-2024 Lymphocytes Auto (Unsp spec) [#/Vol] 1.36 10*3/uL 0.83-4.51 Absolute neutrophil countOrd ered By: Russ Sutherland on 11-24-2024 Neutrophils (Bld) [#/Vol] 5.6 10*3/uL 2.0-7.7 Anion gap in Serum or Plasma Ordered By: Russ Sutherland on 11-24-2024 Anion gap [Moles/Vol] 10 mmol/L 5-15 [facility] Automated lymphocyte count a s percentage of total leukocytesOrdered By: Russ Sutherland on 11-24-2024 Lymphocytes/100 WBC Auto (Unsp spec) 17.7 % Low 19-41 BUN/creatinine ratioOrdered By: Russ Sutherland on 11-24-2024 Urea nitrogen/Creatinine [Mass ratio] 9.9 mg/mg Low 10-20 Basophil percentageOrdered B y: Russ Mariniter on 11-24-2024 Basophils/100 WBC (Bld) 0.5 % 0-1 Bilirubin, totalOrdered By: Russ Mariniter on 11-24-2024 Bilirubin [Mass/Vol] 0.23 mg/dL 0.00-1.30 [facility] CBC W/Diff, Automatedon 11-01 Absolute Lymph 1.36 X10 3/uL Normal 0.83-4.51 Comment on above: Performed By: #### L 500.4100, L501.5200, L501.9520, L503.7505, L500.4050, L100.0100 #### [id number] [place], [address] Absolute Neut 5.6 X10 3/uL Normal 2.0-7.7 Comment on above: Performed By: #### L 500.4100, L501.5200, L501.9520, L503.7505, L500.4050, L100.0100 #### [id number] [place], [address] Basophils/100 WBC (Bld) 0.5 % Normal 0-1 Comment on above: Performed By: #### L 500.4100, L501.5200, L501.9520, L503.7505, L500.4050, L100.0100 #### [address] [place], [address] Eosinophils/100 WBC (Bld) 1.6 % Normal 0-5 Comment on above: Performed By: #### L 500.4100, L501.5200, L501.9520, L503.7505, L500.4050, L100.0100 #### [id number] [place], [address] Erythrocyte distribution width (RBC) [Ratio] 17.1 % High 11.6-14.6 Comment on above: Performed By: #### L 500.4100, L501.5200, L501.9520, L503.7505, L500.4050, L100.0100 #### [id number] [place], [address] Hematocrit (Bld) [Volume fraction] 38.9 % Normal 37-47 Comment on above: Performed By: #### L 500.4100, L501.5200, L501.9520, L503.7505, L500.4050, L100.0100 #### [address] [place], [address] Hemoglobin (Bld) [Mass/Vol] 12.1 g/dL Normal 12.0-15.0 Comment on above: Performed By: #### L 500.4100, L501.5200, L501.9520, L503.7505, L500.4050, L100.0100 #### [address] [place], [address] IG% 0.700 Normal 0.0-0.9 Comment on above: Result Comment: IG% - Immature Granulocytes (promyelocytes, myelocytes and metamyelocytes) > 1% indicates that a LEFT SHIFT is Present. Performed By: #### L 500.4100, L501.5200, L501.9520, L503.7505, L500.4050, L100.0100 #### [address] [place], [address] Lymphocytes/100 WBC (Bld) 17.7 % Low 19-41 Comment on above: Performed By: #### L 500.4100, L501.5200, L501.9520, L503.7505, L500.4050, L100.0100 #### [address] [place], [address] MCH (RBC) [Entitic mass] 22.9 pg Low 27.0-32.0 Comment on above: Performed By: #### L 500.4100, L501.5200, L501.9520, L503.7505, L500.4050, L100.0100 #### [address] [place], [address] MCHC (RBC) [Mass/Vol] 31.1 g/dL Low 32-36 [facility] Comment on above: Performed By: #### L 500.4100, L501.5200, L501.9520, L503.7505, L500.4050, L100.0100 #### [address] [place], [address] MCV (RBC) [Entitic vol] 73.7 fL Low 81-99 Comment on above: Performed By: #### L 500.4100, L501.5200, L501.9520, L503.7505, L500.4050, L100.0100 #### [address] [place], [address] Monocytes/100 WBC (Bld) 6.5 % Normal 0-10 Comment on above: Performed By: #### L 500.4100, L501.5200, L501.9520, L503.7505, L500.4050, L100.0100 #### [address] [place], [address] Neutrophils/100 WBC (Bld) 73.0 % High 47-70 Comment on above: Performed By: #### L 500.4100, L501.5200, L501.9520, L503.7505, L500.4050, L100.0100 #### [address] [place], [address] Nucleated RBC (Bld) [#/Vol] 0 10*3/uL Normal 0-5 Comment on above: Performed By: #### L 500.4100, L501.5200, L501.9520, L503.7505, L500.4050, L100.0100 #### [address] [place], [address] Platelet mean volume (Bld) [Entitic vol] 8.3 fL Normal 6.2-12.0 Comment on above: Performed By: #### L 500.4100, L501.5200, L501.9520, L503.7505, L500.4050, L100.0100 #### [address] [place], [address] Platelets (Bld) [#/Vol] 245 10*3/uL Normal 150-450 Comment on above: Performed By: #### L 500.4100, L501.5200, L501.9520, L503.7505, L500.4050, L100.0100 #### [address] [place], [address] RBC (Bld) [#/Vol] 5.28 10*6/uL Normal 4.2-5.4 [facility] Comment on above: Performed By: #### L 500.4100, L501.5200, L501.9520, L503.7505, L500.4050, L100.0100 #### [address] [place], [address] RDW SD 44.9 fl High 35.1-43.9 Comment on above: Performed By: #### L 500.4100, L501.5200, L501.9520, L503.7505, L500.4050, L100.0100 #### [address] [place], [address] WBC (Bld) [#/Vol] 7.7 10*3/uL Normal 4.4-11.0 [facility] Comment on above: Performed By: #### L 500.4100, L501.5200, L501.9520, L503.7505, L500.4050, L100.0100 #### [address] [place], [address] Calculated very low density lipoprotein (VLDL) cholesterol measurementOrdered By: Russ Sutherland on 11-24-2024 Calculated very low density lipoprotein (VLDL) cholesterol measurement 16 mg/dL 5-40 Carbon dioxide, total [Moles /volume] in Central venous bloodOrdered By: Russ Sutherland on 11-24-2024 CO2 [Moles/Vol] 26.0 mmol/L 21.0-32.0 Cardiology Visit Reporton Cardiology Visit Report [facility] [address] [place], [place] [address] OFFICE VISIT Date of Service: 11/24/24 MR#: [id number] Acct: [id number] Name: JOSIE LANDIS Rep #: [id number] : 1965 Provider: SUSAN Pichardo Age/Sex: 59/F Location: [facility] Status: Signed HPI HPI History of Present Illness Details: Josie Landis is a 59-year-old female who presents to office today for follow-up for monitoring her cardiovascular health. Patient has a history of coronary artery disease status post drug- eluting stent to her mid RCA and proximal LAD 05/13/2018 at [facility]. Heart catheterization 05/21/2022 at [facility] demonstrated patent mid LAD stent, 40% proximal LAD stenosis, 60% in-stent restenosis of the RCA with a normal IFR of 0.99, 85% mid circumflex stenosis, LMCA is angiographically normal and OM1 is angiographically normal. She proceeded with a drug-eluting stent to the mid of circumflex. She presented to in May 2022 with chest pain, her cardiac enzymes were negative. She underwent pharmacological stress that was negative for ischemia and demonstrated preserved ejection fraction. She returned to June 2022 for confusion. An echocardiogram 06/08/2019 [...] small PFO. She is closely following with [facility] neurology regarding a brain lesion. She also has a history of hypertension, hyperlipidemia, tobacco abuse and COPD. She has been diagnosed with seizures and has been initiated on anti-epileptics through [facility] neurology. 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 Normal Chloride assayOrdered By: Inocente Sutherland on 11-24-2024 Chloride [Moles/Vol] 97 mmol/L Low 98-108 [facility] Comprehensive Metabolic Prof ilon 11-24-2024 Albumin [Mass/Vol] 4.1 g/dL Normal 3.5-5.0 [facility] Comment on above: Performed By: #### L 500.4100, L501.5200, L501.9520, L503.7505, L500.4050, L100.0100 #### [address] [place], [address] Albumin/Globulin [Mass ratio] 1.5 {ratio} Normal 0.9-2.4 Comment on above: Performed By: #### L 500.4100, L501.5200, L501.9520, L503.7505, L500.4050, L100.0100 #### [address] [place], [address] ALK PHOS 112 U/L High 35-104 Comment on above: Performed By: #### L 500.4100, L501.5200, L501.9520, L503.7505, L500.4050, L100.0100 #### [address] [place], [address] ALT [Catalytic activity/Vol] 16 U/L Normal <=34 Comment on above: Performed By: #### L 500.4100, L501.5200, L501.9520, L503.7505, L500.4050, L100.0100 #### [address] [place], [address] AST [Catalytic activity/Vol] 16 U/L Normal <=31 Comment on above: Performed By: #### L 500.4100, L501.5200, L501.9520, L503.7505, L500.4050, L100.0100 #### [address] [place], [address] Bilirubin [Mass/Vol] 0.23 mg/dL Normal 0.00-1.30 [facility] Comment on above: Performed By: #### L 500.4100, L501.5200, L501.9520, L503.7505, L500.4050, L100.0100 #### [address] [place], [address] BUN/CRE 9.9 RATIO Low 10-20 Comment on above: Performed By: #### L 500.4100, L501.5200, L501.9520, L503.7505, L500.4050, L100.0100 #### [address] [place], [address] Calcium [Mass/Vol] 9.3 mg/dL Normal 7.6-11.0 [facility] Comment on above: Performed By: #### L 500.4100, L501.5200, L501.9520, L503.7505, L500.4050, L100.0100 #### [address] [place], [address] Chloride [Moles/Vol] 97 mmol/L Low 98-108 [facility] Comment on above: Performed By: #### L 500.4100, L501.5200, L501.9520, L503.7505, L500.4050, L100.0100 #### [address] [place], [address] CO2 [Moles/Vol] 26.0 mmol/L Normal 21.0-32.0 Comment on above: Performed By: #### L 500.4100, L501.5200, L501.9520, L503.7505, L500.4050, L100.0100 #### [address] [place], [address] Creatinine [Mass/Vol] 0.83 mg/dL Normal 0.70-1.20 [facility] Comment on above: Performed By: #### L 500.4100, L501.5200, L501.9520, L503.7505, L500.4050, L100.0100 #### [address] [place], [address] GAP 10 Normal 5-15 Comment on above: Performed By: #### L 500.4100, L501.5200, L501.9520, L503.7505, L500.4050, L100.0100 #### [address] [place], [address] GFR/1.73 sq M.predicted among non-blacks MDRD (S/P/Bld) [Vol rate/Area] 82 mL/min/{1.73_m2} Normal >60 Comment on above: Result Comment: mL/m in/1.73m2 CKD-EPI Creatinine Equation (2020) Performed By: #### L 500.4100, L501.5200, L501.9520, L503.7505, L500.4050, L100.0100 #### [address] [place], [address] Globulin (S) [Mass/Vol] 2.8 g/dL Normal 2.2-4.2 Comment on above: Performed By: #### L 500.4100, L501.5200, L501.9520, L503.7505, L500.4050, L100.0100 #### [address] [place], [address] Glucose [Mass/Vol] 89 mg/dL Normal 70-99 [facility] Comment on above: Performed By: #### L 500.4100, L501.5200, L501.9520, L503.7505, L500.4050, L100.0100 #### [address] [place], [address] Potassium [Moles/Vol] 4.4 mmol/L Normal 3.3-5.1 [facility] Comment on above: Performed By: #### L 500.4100, L501.5200, L501.9520, L503.7505, L500.4050, L100.0100 #### [id number] [place], [address] Sodium [Moles/Vol] 133 mmol/L Normal 133-145 [facility] Comment on above: Performed By: #### L 500.4100, L501.5200, L501.9520, L503.7505, L500.4050, L100.0100 #### [address] [place], [address] T PROT 6.9 g/dL Normal 5.9-8.4 Comment on above: Performed By: #### L 500.4100, L501.5200, L501.9520, L503.7505, L500.4050, L100.0100 #### [address] [place], [address] Urea nitrogen [Mass/Vol] 8 mg/dL Normal 4-19 Comment on above: Performed By: #### L 500.4100, L501.5200, L501.9520, L503.7505, L500.4050, L100.0100 #### [address] [place], [address] Eosinophil percentageOrdered By: Russ Sutherland on 11-24-2024 Eosinophils/100 WBC (Bld) 1.6 % 0-5 Erythrocyte distribution wid th ratioOrdered By: Russ Sutherland on 11-24-2024 Erythrocyte distribution width (RBC) [Ratio] 17.1 % High 11.6-14.6 Erythrocyte distribution wid th standard deviationOrdered By: Russ Sutherland on 11-24-2024 Erythrocyte distribution width (RBC) [Ratio] 44.9 fl High 35.1-43.9 Glomerular filtration rate ( GFR) estimation/1.73 sq m using serum, plasma, or whole bOrdered By: Russ Sutherland on 11-24-2024 GFR/1.73 sq M.predicted among non-blacks MDRD (S/P/Bld) [Vol rate/Area] 82 mL/min/{1.73_m2} >60 Comment on above: mL/min/1.73m2 CKD-EP I Creatinine Equation (2020) Hematocrit Auto (Bld) [Volum e fraction]Ordered By: Russ Sutherland on 11-24-2024 Hematocrit (Bld) [Volume fraction] 38.9 % 37-47 Hemoglobin measurementOrdere d By: Russ Sutherland on 11-24-2024 Hemoglobin (Bld) [Mass/Vol] 12.1 g/dL 12.0-15.0 Immature granulocytes/100 WB C Auto (Bld)Ordered By: Russ Sutherland on 11-24-2024 Immature granulocytes/100 WBC (Bld) 0.700 % 0.0-0.9 Comment on above: IG% - Immature Granu locytes (promyelocytes, myelocytes and metamyelocytes) > 1% indicates that a LEFT SHIFT is Present. LDL calc ser/plasOrdered By: Russ Sutherland on 11-24-2024 Cholesterol in LDL [Mass/Vol] 55 mg/dL Comment on above: Wxfansvuir=728-829 m g/dL & Higher Odau=401 mg/dL or greater Laboratory - Chemistry and C hemistry - challengeOrdered By: Russ Sutherland on 11-24-2024 AST [Catalytic activity/Vol] 16 U/L <32 Lipid Profileon 11-24-2024 CHOL:HDL 2.32 Normal Comment on above: Performed By: #### L 500.4100, L501.5200, L501.9520, L503.7505, L500.4050, L100.0100 #### [address] [place], [address] Cholesterol [Mass/Vol] 125 mg/dL Normal <=200 Comment on above: Result Comment: Chol esterol level, Desirable <200 mg/dL Borderline high cholesterol 200-239 mg/dL High cholesterol >=240 mg/dL Recommendations of the NCEP Adult Treatment Panel for the following risk-cutoff thresholds for the [place] population. Performed By: #### L 500.4100, L501.5200, L501.9520, L503.7505, L500.4050, L100.0100 #### [address] [place], [place], [id number] Cholesterol in HDL [Mass/Vol] 54 mg/dL Normal Comment on above: Result Comment: Josee onal Cholesterol Education Program (NCEP) guidelines: <40 mg/dL: Low HDL-cholesterol (major risk factor for CHD) >= 60 mg/dL: High HDL-cholesterol (negative risk factor for CHD) HDL-cholesterol is affected by a number of factors, e.g. smoking, exercise, hormones, sex and age. Performed By: #### L 500.4100, L501.5200, L501.9520, L503.7505, L500.4050, L100.0100 #### [address] [place], [address] Cholesterol in LDL [Mass/Vol] 55 mg/dL Normal Comment on above: Result Comment: Bord kbckdk=820-555 mg/dL Higher Bqin=114 mg/dL or greater Performed By: #### L 500.4100, L501.5200, L501.9520, L503.7505, L500.4050, L100.0100 #### [address] [place], [address] Cholesterol in VLDL [Mass/Vol] 16 mg/dL Normal 5-40 Comment on above: Performed By: #### L 500.4100, L501.5200, L501.9520, L503.7505, L500.4050, L100.0100 #### [address] [place], [address] Triglyceride [Mass/Vol] 81 mg/dL Normal Comment on above: Result Comment: The drugs N-Acetylcysteine and Metamizole may falsely depress this assay. Normal range: <150 mg/dL Borderline High: 150-199 mg/dL High: 200-499 mg/dL Very High: >500 mg/dL Performed By: #### L 500.4100, L501.5200, L501.9520, L503.7505, L500.4050, L100.0100 #### [address] [place], [address] MCV (mean corpuscular volume ) determinationOrdered By: Russ Sutherland on 11-24-2024 MCV (RBC) [Entitic vol] 73.7 fL Low 81-99 Magnesiumon 11-24-2024 Magnesium [Mass/Vol] 2.0 mg/dL Normal 1.5-2.2 [facility] Comment on above: Performed By: #### L 500.4100, L501.5200, L501.9520, L503.7505, L500.4050, L100.0100 #### [address] [place], [address] Magnesium measurement (mass/ volume)Ordered By: Russ Sutherland on 11-24-2024 Magnesium (Unsp spec) [Mass/Vol] 2.0 mg/dL 1.5-2.2 Mean corpuscular hemoglobin (MCH) determinationOrdered By: Russ Sutherland on 11-24-2024 MCH (RBC) [Entitic mass] 22.9 pg Low 27.0-32.0 Mean corpuscular hemoglobin concentration (MCHC) determinationOrdered By: Russ Sutherland on 11-24-2024 MCHC (RBC) [Mass/Vol] 31.1 g/dL Low 32-36 [facility] Mean platelet volume determi nationOrdered By: Russ Sutherland on 11-24-2024 Platelet mean volume (Bld) [Entitic vol] 8.3 fL 6.2-12.0 Monocyte percentageOrdered B y: Russ Sutherland on 11-24-2024 Monocytes/100 WBC (Bld) 6.5 % 0-10 Natriuretic peptide.B prohor see N-Terminal [Mass/volume] in Serum or PlasmaOrdered By: Russ Sutherland on 11-24-2024 Natriuretic peptide.B prohormone N-Terminal [Mass/Vol] < 36 pg/mL <900 Comment on above: Heart Failure Unlike ly: < 300 pg/mLHeart Failure Likely< 50 Years: > 450 pg/mL50-75 Years: > 900 pg/mL>75 Years: > 1800 pg/mL Neutrophil percentageOrdered By: Russ Sutherland on 11-24-2024 Neutrophils/100 WBC (Bld) 73.0 % High 47-70 Nucleated red blood cell per centageOrdered By: Russ Sutherland on 11-24-2024 Nucleated RBC/100 WBC (Bld) [Ratio] 0 % 0-5 Platelet countOrdered By: Inocente Sutherland on 11-24-2024 Platelets (Bld) [#/Vol] 245 10*3/uL 150-450 Potassium measurement (mass/ volume)Ordered By: Russ Sutherland on 11-24-2024 Potassium (Unsp spec) [Mass/Vol] 4.4 mmol/L 3.3-5.1 Pro- Brain NATRIURETIC PEPTI Iza 11-24-2024 proBNP < 36 Normal <=900 Comment on above: Result Comment: Hear t Failure Unlikely: < 300 pg/mL Heart Failure Likely < 50 Years: > 450 pg/mL 50-75 Years: > 900 pg/mL >75 Years: > 1800 pg/mL Performed By: #### L 500.4100, L501.5200, L501.9520, L503.7505, L500.4050, L100.0100 #### [id number] [place], [address] RBC Auto (Bld) [#/Vol]Ordere d By: Russ Sutherland on 11-24-2024 RBC (Bld) [#/Vol] 5.28 10*6/uL 4.2-5.4 [facility] Screening total cholesterol/ high density lipoprotein (HDL) cholesterol ratioOrdered By: Russ Sutherland on 11-24-2024 Cholesterol.total/Cho lesterol in HDL [Mass ratio] 2.32 {ratio} Serum creatinine measurement (mass/volume)Ordered By: Russ Sutherland on 11-24-2024 Creatinine [Mass/Vol] 0.83 mg/dL 0.70-1.20 [facility] Serum globulin measurementOr dered By: Russ Sutherland on 11-24-2024 Globulin (S) [Mass/Vol] 2.8 g/dL 2.2-4.2 Serum glucose measurement (m ass/volume)Ordered By: Russ Sutherland on 11-24-2024 Glucose [Mass/Vol] 89 mg/dL 70-99 [facility] Serum or plasma alanine gudino otransferase (ALT) measurementOrdered By: Russirving Sutherland on 11-24-2024 ALT [Catalytic activity/Vol] 16 U/L <35 Serum or plasma albumin leonel urement (mass/volume)Ordered By: Russ Sutherland on 11-24-2024 Albumin [Mass/Vol] 4.1 g/dL 3.5-5.0 [facility] Serum or plasma albumin/glob ulin mass ratioOrdered By: Russ Sutherland on 11-24-2024 Albumin/Globulin [Mass ratio] 1.5 {ratio} 0.9-2.4 Serum or plasma alkaline martina sphatase measurementOrdered By: Russ Sutherland on 11-24-2024 ALP [Catalytic activity/Vol] 112 U/L High 35-104 Serum or plasma calcium leonel urement (mass/volume)Ordered By: Russ Sutherland on 11-24-2024 Calcium [Mass/Vol] 9.3 mg/dL 7.6-11.0 [facility] Serum or plasma cholesterol in HDL measurement (mass/volume)Ordered By: Russ Sutherland on 11-24-2024 Cholesterol in HDL [Mass/Vol] 54 mg/dL >40 Comment on above: National Cholesterol Education Program (NCEP) guidelines:<40 mg/dL: Low HDL-cholesterol (major risk factor for CHD)>= 60 mg/dL: High HDL-cholesterol (negative risk factor for CHD)HDL-cholesterol is affected by a number of factors, e.g. smoking, exercise, hormones, sex and age. Serum or plasma cholesterol measurement (mass/volume)Ordered By: Russ Sutherland on 11-24-2024 Cholesterol [Mass/Vol] 125 mg/dL <201 Comment on above: Cholesterol level, D esirable <200 mg/dLBorderline high cholesterol 200-239 mg/dLHigh cholesterol >=240 mg/dLRecommendations of the NCEP Adult Treatment Panel for the following risk-cutoff thresholds for the [place] population. Serum or plasma urea nitroge n measurement (mass/volume)Ordered By: Russ Sutherland on 11-24-2024 Urea nitrogen [Mass/Vol] 8 mg/dL 4-19 Sodium levelOrdered By: Emely Sutherland on 11-24-2024 Sodium [Moles/Vol] 133 mmol/L 133-145 [facility] TSH DL <= 0.005 mIU/L QnOrde red By: Russ Sutherland on 11-24-2024 TSH Qn 1.780 uIU/mL 0.300-4.20 0 Thyroid Stim Hormone (TSH)on 11-24-2024 TSH 1.780 uIU/mL Normal 0.300-4.20 0 Comment on above: Performed By: #### L 500.4100, L501.5200, L501.9520, L503.7505, L500.4050, L100.0100 #### [id number] [place], [address] Total proteinOrdered By: Zack Sutherland on 11-24-2024 Protein [Mass/Vol] 6.9 g/dL 5.9-8.4 [facility] Triglycerides measurementOrd ered By: Russ Sutherland on 11-24-2024 Triglyceride [Mass/Vol] 81 mg/dL <199 Comment on above: The drugs N-Acetylcy steine and Metamizole may falsely depress this assay. 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 Glue Bone Crusher: RHIANNON Transcribe Date/Time: Oct 11 2024 12:05P Dictated by : ARTURO AVENDANO MD This examination was interpreted and the report reviewed and electronically signed by: ARTURO AVENDANO MD on Oct 11 2024 12:20PM [facility] DIVISION OF RADIOLOGY * * *Final Report* * * DATE OF EXAM: Oct 11 2024 11:08AM [facility] 0295 - MRI BRAIN WO/W IVCON / [...] tissues are unremarkable. DIVISION OF RADIOLOGY Provider, [facility] - 10/11/2024 * * *Final Report* * * DATE OF EXAM: Oct 11 2024 11:08AM [facility] 0295 - MRI BRAIN WO/W IVCON / [...] in the splenium of the corpus callosum. Glue Bone Crusher[facility] Transcribe Date/Time: Oct 11 2024 12:05P Dictated by : ARTURO AVENDANO MD This examination was interpreted and the report reviewed and electronically signed by: ARTURO AVENDANO MD on Oct 11 2024 12:20PM EST [facility] Radiology Study observation (narrative) [facility] MR Brain WO and W contrast I VOrdered By: Ccf Provider on 10-11-2024 [facility] MRI BRAIN WO/W IVCONon 10-11 MRI BRAIN WO/W IVCON * * *Final Report* * * DATE OF EXAM: Oct 11 2024 11:08AM [facility] 0295 - MRI BRAIN WO/W IVCON / [...] in the splenium of the corpus callosum. Glue Bone Crusher: [facility] Transcribe Date/Time: Oct 11 2024 12:05P Dictated by : ARTURO AVENDANO MD This examination was interpreted and the report reviewed and electronically signed by: ARTURO AVENDANO MD on Oct 11 2024 12:20PM EST [id number] Normal [facility] 10OH-Carbazepine SerPl-mCnco n 07-21-2024 10-Hydroxycarbazepine [Mass/Vol] 19.6 ug/mL Normal 3.0-35.0 [facility] Comment on above: Order Comment: Speci men Type: BLOOD SPECIMEN Ordering Facility: [facility] Address: [address] [place] [address] Result Comment: This test was developed, and its performance characteristics determined by the [facility] Department of Pathology and Laboratory Medicine. It has not been cleared or approved by the FDA. The [facility] Department of Pathology and Laboratory Medicine is regulated under CLIA as qualified to perform high-complexity testing. This test is used for clinical purposes. It should not be regarded as investigational or for research. Performed By: #### 3 1019-3 #### [facility] CLIA [id number] [address] [place] [address] [place] CBC panel Auto (Bld)on 07-21 Erythrocyte distribution width (RBC) [Ratio] 17.7 % High 11.5-15.0 [facility] Comment on above: Order Comment: Loni sanchez Type: BLOOD SPECIMEN Ordering Facility: [facility] Address: [address] [place] [address] Performed By: #### 5 8410-2 #### [facility] [id number] [address] [place] [address] [place] Hematocrit (Bld) [Volume fraction] 41.1 % Normal 36.0-46.0 [facility] Comment on above: Order Comment: Loni sanchez Type: BLOOD SPECIMEN Ordering Facility: [facility] Address: [address] [place] [address] Performed By: #### 5 8410-2 #### [facility] [id number] [address] [place] [address] [place] Hemoglobin (Bld) [Mass/Vol] 12.9 g/dL Normal 11.5-15.5 [facility] Comment on above: Order Comment: Loni sanchez Type: BLOOD SPECIMEN Ordering Facility: [facility] Address: [address] [place] [address] Performed By: #### 5 8410-2 #### [facility] [id number] [address] [place] [address] [place] MCH (RBC) [Entitic mass] 23.3 pg Low 26.0-34.0 [facility] Comment on above: Order Comment: Speci men Type: BLOOD SPECIMEN Ordering Facility: [facility] Address: [address] [place] [address] Performed By: #### 5 8410-2 #### [facility] CLIA [id number] [address] [place] [address] [place] MCHC (RBC) [Mass/Vol] 31.4 g/dL Normal 30.5-36.0 [facility] Comment on above: Order Comment: Speci men Type: BLOOD SPECIMEN Ordering Facility: [facility] Address: [address] [place] [address] Performed By: #### 5 8410-2 #### [facility] CLIA [id number] [address] [place] [address] [place] MCV (RBC) [Entitic vol] 74.3 fL Low 80.0-100.0 [facility] Comment on above: Order Comment: Speci men Type: BLOOD SPECIMEN Ordering Facility: [facility] Address: [address] [place] [address] Performed By: #### 5 8410-2 #### [facility] [id number] [address] [place] [address] [place] Nucleated RBC (Bld) [#/Vol] 10*3/uL Normal <0.01 [facility] Comment on above: Order Comment: Speci men Type: BLOOD SPECIMEN Ordering Facility: [facility] Address: [address] [place] [address] Performed By: #### 5 8410-2 #### [facility] [id number] [address] [place] [address] [place] Platelet mean volume (Bld) [Entitic vol] 8.0 fL Low 9.0-12.7 [facility] Comment on above: Order Comment: Speci men Type: BLOOD SPECIMEN Ordering Facility: [facility] Address: [address] [place] [address] Performed By: #### 5 8410-2 #### [facility] CLIA [id number] [address] [place] [address] [place] Platelets (Bld) [#/Vol] 221 10*3/uL Normal 150-400 [facility] Comment on above: Order Comment: Speci men Type: BLOOD SPECIMEN Ordering Facility: [facility] Address: [address] [place], [place] [address] Performed By: #### 5 8410-2 #### [facility] CLIA [id number] [address] [place] [address] [place] RBC (Bld) [#/Vol] 5.53 10*6/uL High 3.90-5.20 [facility] Comment on above: Order Comment: Speci men Type: BLOOD SPECIMEN Ordering Facility: [facility] Address: [address] [place], [place] [address] Performed By: #### 5 8410-2 #### [facility] CLIA [id number] [address] [place] [address] [place] WBC (Bld) [#/Vol] 5.82 10*3/uL Normal 3.70-11.00 [facility] Comment on above: Order Comment: Speci men Type: BLOOD SPECIMEN Ordering Facility: [facility] Address: [address] [place] [address] Performed By: #### 5 8410-2 #### [facility] CLIA [id number] [address] [place] [address] [place] Comprehensive metabolic 2000 panelon 07-21-2024 Albumin [Mass/Vol] 4.1 g/dL Normal 3.9-4.9 [facility] Comment on above: Order Comment: Speci men Type: BLOOD SPECIMEN Ordering Facility: [facility] Address: [address] [place], [place] [address] Performed By: #### 2 4323-8 #### [facility] CLIA [id number] [address] [place] [address] [place] ALP [Catalytic activity/Vol] 114 U/L Normal 34-123 [facility] Comment on above: Order Comment: Speci men Type: BLOOD SPECIMEN Ordering Facility: [facility] Address: [address] [place] [address] Performed By: #### 2 4323-8 #### [facility] CLIA [id number] [address] [place] [address] [place] ALT [Catalytic activity/Vol] 7 U/L Normal 7-38 [facility] Comment on above: Order Comment: Speci men Type: BLOOD SPECIMEN Ordering Facility: [facility] Address: [address] [place] [address] Performed By: #### 2 4323-8 #### [facility] CLIA [id number] [address] [place] [address] [place] Anion gap [Moles/Vol] 9 mmol/L Normal 8-15 [facility] Comment on above: Order Comment: Speci men Type: BLOOD SPECIMEN Ordering Facility: [facility] Address: [address] [place] [address] Performed By: #### 2 4323-8 #### [facility] CLIA [id number] [address] [place] [address] [place] AST [Catalytic activity/Vol] 10 U/L Low 13-35 [facility] Comment on above: Order Comment: Speci men Type: BLOOD SPECIMEN Ordering Facility: [facility] Address: [address] [place] [address] Performed By: #### 2 4323-8 #### [facility] CLIA [id number] [address] [place] [address] [place] Bilirubin [Mass/Vol] 0.3 mg/dL Normal 0.2-1.3 [facility] Comment on above: Order Comment: Speci men Type: BLOOD SPECIMEN Ordering Facility: [facility] Address: [address] [place] [address] Performed By: #### 2 4323-8 #### [facility] CLIA [id number] [address] [place] [address] [place] Calcium [Mass/Vol] 9.1 mg/dL Normal 8.5-10.2 [facility] Comment on above: Order Comment: Speci men Type: BLOOD SPECIMEN Ordering Facility: [facility] Address: [address] [place] [address] Performed By: #### 2 4323-8 #### [facility] CLIA [id number] [address] [place] [address] [place] Chloride [Moles/Vol] 96 mmol/L Low 98-107 [facility] Comment on above: Order Comment: Speci men Type: BLOOD SPECIMEN Ordering Facility: [facility] Address: [address] [place] [address] Performed By: #### 2 4323-8 #### [facility] [id number] [address] [place] [address] [place] CO2 [Moles/Vol] 27 mmol/L Normal 22-30 [facility] Comment on above: Order Comment: Speci men Type: BLOOD SPECIMEN Ordering Facility: [facility] Address: [address] [place] [address] Performed By: #### 2 4323-8 #### [facility] CLIA [id number] [address] [place] [address] [place] Creatinine [Mass/Vol] 0.80 mg/dL Normal 0.58-0.96 [facility] Comment on above: Order Comment: Speci men Type: BLOOD SPECIMEN Ordering Facility: [facility] Address: [address] [place] [address] Performed By: #### 2 4323-8 #### [facility] [id number] [address] [place] [address] [place] Creatinine and Glomerular filtration rate.predicted panel (S/P/Bld) 87 mL/min/1.73m??? Normal >=60 [facility] Comment on above: Order Comment: Loni sanchez Type: BLOOD SPECIMEN Ordering Facility: [facility] Address: [address] [place] [address] Result Comment: Elana mated Glomerular Filtration Rate [...] actual GFR. Performed By: #### 2 4323-8 #### [facility] [id number] [address] [place] [address] [place] Glucose [Mass/Vol] 106 mg/dL High 74-99 [facility] Comment on above: Order Comment: Loni sanchez Type: BLOOD SPECIMEN Ordering Facility: [facility] Address: [address] [place] [address] Result Comment: The [place] [employer] Association (ADA) provides guidance for cutoff [...] Standards of Medical Care in Diabetes 2016, [place] [employer]. Diabetes Care. 2016.39(Suppl 1). Performed By: #### 2 4323-8 #### [facility] [id number] [address] [place] [address] [place] Potassium [Moles/Vol] 4.3 mmol/L Normal 3.7-5.1 [facility] Comment on above: Order Comment: Speci men Type: BLOOD SPECIMEN Ordering Facility: [facility] Address: [address] [place], [place] [address] Performed By: #### 2 4323-8 #### [facility] CLIA [id number] [address] [place] [address] [place] Protein [Mass/Vol] 6.6 g/dL Normal 6.3-8.0 [facility] Comment on above: Order Comment: Speci men Type: BLOOD SPECIMEN Ordering Facility: [facility] Address: [address] [place], [place] [address] Performed By: #### 2 4323-8 #### [facility] CLIA [id number] [address] [place] [address] [place] Sodium [Moles/Vol] 132 mmol/L Low 136-144 [facility] Comment on above: Order Comment: Speci men Type: BLOOD SPECIMEN Ordering Facility: [facility] Address: [address] [place] [address] Performed By: #### 2 4323-8 #### [facility] CLIA [id number] [address] [place] [address] [place] Urea nitrogen [Mass/Vol] 5 mg/dL Low 7-21 [facility] Comment on above: Order Comment: Speci men Type: BLOOD SPECIMEN Ordering Facility: [facility] Address: [address] [place] [address] Performed By: #### 2 4323-8 #### [facility] CLIA [id number] [address] [place] [address] [place] MRI BRAIN WO/W IVCONon 04-12 MRI BRAIN WO/W IVCON * * *Final Report* * * DATE OF EXAM: Apr 12 2024 11:15AM [facility] 0295 - MRI BRAIN WO/W IVCON [...] corpus callosum appears stable. No perfusion abnormality. Glue Bone Crusher: RHIANNON Transcribe Date/Time: Apr 12 2024 12:38P Dictated by : MARCIANO ZAZUETA MD This examination was interpreted and the report reviewed and electronically signed by: MARCIANO ZAZUETA MD on Apr 12 2024 1:00PM EST [id number] Normal [facility] MR Brain WO and W contrast I Onel 01-17-2024 IMPRESSION: Stable appearance the brain from 10/19/2023. Stable heterogeneous signal changes in the splenium of the corpus callosum without enhancement, reduced diffusivity or perfusional abnormality. Glue Bone Crusher: RHIANNON Transcribe Date/Time: Jan 17 2024 11:15A Dictated by : KERRI HOYT DO This examination was interpreted and the report reviewed and electronically signed by: KERRI HOYT DO on Jan 17 2024 11:23AM [facility] DIVISION OF RADIOLOGY * * *Final Report* * * DATE OF EXAM: Jan 17 2024 10:40AM [facility] 0295 - MRI BRAIN WO/W IVCON / [...] tissues are unremarkable. DIVISION OF RADIOLOGY Provider[facility] * * *Final Report* * * DATE OF EXAM: Jan 17 2024 10:40AM [facility] 0295 - MRI BRAIN WO/W IVCON / [...] without enhancement, reduced diffusivity or perfusional abnormality. Glue Bone Crusher: [facility] Transcribe Date/Time: Jan 17 2024 11:15A Dictated by : KERRI HOYT DO This examination was interpreted and the report reviewed and electronically signed by: KERRI HOYT DO on Jan 17 2024 11:23AM EST [facility] Radiology Study observation (narrative) [facility] MR Brain WO and W contrast I VOrdered By: [facility]cf [facility] ID: [id number] Author: DICK LEE RT(R) Service: Radiology Author [...] PATIENT PRESENTS WITH AN IMPLANTABLE OR ATTACHED REGISTERED NURSE CARDIAC TELEMETRY: No RADIOLOGY DEPARTMENT: CT; Exam(s) Completed: Brain PERIPHERAL IV DATA: Not applicable SIGNED BY: RT Javid(R) November 29, 2023 2:56 PM Normal [facility] CBC W Auto Differential pane l (Bld)on 11-29-2023 Basophils (Bld) [#/Vol] 0.04 10*3/uL Normal <0.11 [facility] Comment on above: Order Comment: Speci men Type: BLOOD SPECIMEN Ordering Facility: [facility] Address: [address] [place] [address] Performed By: #### 5 7021-8 #### [facility] CLIA [id number] [address] [place] Basophils/100 WBC (Bld) 0.8 % Normal [facility] Comment on above: Order Comment: Speci men Type: BLOOD SPECIMEN Ordering Facility: [facility] Address: [address] [place] [address] Performed By: #### 5 7021-8 #### [facility] CLIA [id number] [address] [place] [address] [place] Differential cell count method Nom (Bld) Auto Normal [facility] Comment on above: Order Comment: Speci men Type: BLOOD SPECIMEN Ordering Facility: [facility] Address: [address] [place] [address] Performed By: #### 5 7021-8 #### [facility] CLIA [id number] [address] [place] Eosinophils (Bld) [#/Vol] 0.13 10*3/uL Normal <0.46 [facility] Comment on above: Order Comment: Speci men Type: BLOOD SPECIMEN Ordering Facility: [facility] Address: [address] [place] [address] Performed By: #### 5 7021-8 #### [facility] CLIA [id number] [address] Eosinophils/100 WBC (Bld) 2.5 % Normal [facility] Comment on above: Order Comment: Speci men Type: BLOOD SPECIMEN Ordering Facility: [facility] Address: [address] [place] [address] Performed By: #### 5 7021-8 #### [facility] CLIA [id number] [address] [place] Erythrocyte distribution width (RBC) [Ratio] 15.1 % High 11.5-15.0 [facility] Comment on above: Order Comment: Speci men Type: BLOOD SPECIMEN Ordering Facility: [facility] Address: [address] [place] [address] Performed By: #### 5 7021-8 #### [facility] CLIA [id number] [address] [place] Hematocrit (Bld) [Volume fraction] 41.9 % Normal 36.0-46.0 [facility] Comment on above: Order Comment: Speci men Type: BLOOD SPECIMEN Ordering Facility: [facility] Address: [address] [place] [address] Performed By: #### 5 7021-8 #### [facility] CLIA [id number] [address] [place] Hemoglobin (Bld) [Mass/Vol] 13.2 g/dL Normal 11.5-15.5 [facility] Comment on above: Order Comment: Speci men Type: BLOOD SPECIMEN Ordering Facility: [facility] Address: [address] [place] [address] Performed By: #### 5 7021-8 #### [facility] CLIA [id number] [address] [place] Immature granulocytes (Bld) [#/Vol] 10*3/uL Normal <0.10 [facility] Comment on above: Order Comment: Speci men Type: BLOOD SPECIMEN Ordering Facility: [facility] Address: [address] [place] [address] Performed By: #### 5 7021-8 #### [facility] CLIA [id number] [address] Immature granulocytes/100 WBC (Bld) 0.4 % Normal [facility] Comment on above: Order Comment: Speci men Type: BLOOD SPECIMEN Ordering Facility: [facility] Address: [address] [place] [address] Performed By: #### 5 7021-8 #### [facility] CLIA [id number] [address] [place] Lymphocytes (Bld) [#/Vol] 1.43 10*3/uL Normal 1.00-4.00 [facility] Comment on above: Order Comment: Speci men Type: BLOOD SPECIMEN Ordering Facility: [facility] Address: [address] [place] [address] Performed By: #### 5 7021-8 #### [facility] CLIA [id number] [address] Lymphocytes/100 WBC (Bld) 27.6 % Normal [facility] Comment on above: Order Comment: Speci men Type: BLOOD SPECIMEN Ordering Facility: [facility] Address: [address] [place] [address] Performed By: #### 5 7021-8 #### [facility] CLIA [id number] [address] [place] [address] [place] MCH (RBC) [Entitic mass] 25.8 pg Low 26.0-34.0 [facility] Comment on above: Order Comment: Speci men Type: BLOOD SPECIMEN Ordering Facility: [facility] Address: [address] [place] [address] Performed By: #### 5 7021-8 #### [facility] CLIA [id number] [address] STATES [facility] MCHC (RBC) [Mass/Vol] 31.5 g/dL Normal 30.5-36.0 [facility] Comment on above: Order Comment: Speci men Type: BLOOD SPECIMEN Ordering Facility: [facility] Address: [address] [place] [address] Performed By: #### 5 7021-8 #### [facility] CLIA [id number] [address] MCV (RBC) [Entitic vol] 81.8 fL Normal 80.0-100.0 [facility] Comment on above: Order Comment: Speci men Type: BLOOD SPECIMEN Ordering Facility: [facility] Address: [address] [place] [address] Performed By: #### 5 7021-8 #### [facility] CLIA [id number] [address] [place] Monocytes (Bld) [#/Vol] 0.40 10*3/uL Normal <0.87 [facility] Comment on above: Order Comment: Speci men Type: BLOOD SPECIMEN Ordering Facility: [facility] Address: [address] [place] [address] Performed By: #### 5 7021-8 #### [facility] CLIA [id number] [address] Monocytes/100 WBC (Bld) 7.7 % Normal [facility] Comment on above: Order Comment: Speci men Type: BLOOD SPECIMEN Ordering Facility: [facility] Address: [address] [place] [address] Performed By: #### 5 7021-8 #### [facility] CLIA [id number] [address] [place] Neutrophils (Bld) [#/Vol] 3.17 10*3/uL Normal 1.45-7.50 [facility] Comment on above: Order Comment: Speci men Type: BLOOD SPECIMEN Ordering Facility: [facility] Address: [address] [place] [address] Performed By: #### 5 7021-8 #### [facility] CLIA [id number] [address] Neutrophils/100 WBC (Bld) 61.0 % Normal [facility] Comment on above: Order Comment: Speci men Type: BLOOD SPECIMEN Ordering Facility: [facility] Address: [address] [place] [address] Performed By: #### 5 7021-8 #### [facility] CLIA [id number] [address] [place] Nucleated RBC (Bld) [#/Vol] 10*3/uL Normal <0.01 [facility] Comment on above: Order Comment: Speci men Type: BLOOD SPECIMEN Ordering Facility: [facility] Address: [address] [place] [address] Performed By: #### 5 7021-8 #### [facility] CLIA [id number] [address] [place] Nucleated RBC/100 WBC (Bld) [Ratio] 0.0 /100 WBC Normal [facility] Comment on above: Order Comment: Speci men Type: BLOOD SPECIMEN Ordering Facility: [facility] Address: [address] [place] [address] Performed By: #### 5 7021-8 #### [facility] CLIA [id number] [address] [place] Platelet mean volume (Bld) [Entitic vol] 8.6 fL Low 9.0-12.7 [facility] Comment on above: Order Comment: Speci men Type: BLOOD SPECIMEN Ordering Facility: [facility] Address: [address] [place] [address] Performed By: #### 5 7021-8 #### [facility] CLIA [id number] [address] [place] [address] [place] Platelets (Bld) [#/Vol] 192 10*3/uL Normal 150-400 [facility] Comment on above: Order Comment: Speci men Type: BLOOD SPECIMEN Ordering Facility: [facility] Address: [address] [place], [place] [address] Performed By: #### 5 7021-8 #### [facility] CLIA [id number] [address] [facility] RBC (Bld) [#/Vol] 5.12 10*6/uL Normal 3.90-5.20 [facility] Comment on above: Order Comment: Speci men Type: BLOOD SPECIMEN Ordering Facility: [facility] Address: [address] [place] [address] Performed By: #### 5 7021-8 #### [facility] CLIA [id number] [address] WBC (Bld) [#/Vol] 5.19 10*3/uL Normal 3.70-11.00 [facility] Comment on above: Order Comment: Speci men Type: BLOOD SPECIMEN Ordering Facility: [facility] Address: [address] [place] [address] Performed By: #### 5 7021-8 #### [facility] CLIA [id number] [address] CRP SerPl-mCncon 11-29-2023 CRP [Mass/Vol] mg/L Normal <0.9 [facility] Comment on above: Order Comment: Speci men Type: BLOOD SPECIMEN Ordering Facility: [facility] Address: [address] [place] [address] Performed By: #### 1 9123-9, 1987-, [id number], 19724-3 #### [facility] CLIA [id number] [address] BRAIN WO IVCONon 11-29-[address] BRAIN WO IVCON * * *Final Report* * * DATE OF EXAM: Nov 29 2023 2:56PM [facility] [place] BRAIN [place] IVCON / [...] additional findings. IMPRESSION: No acute intracranial abnormality. Gl[facility] Transcribe Date/Time: Nov 29 2023 3:12P Dictated by : KERRI SAUCEDA MD This examination was interpreted and the report reviewed and electronically signed by: KERRI SAUCEDA MD on Nov 29 2023 3:16PM EST [id number] Normal [facility] Comprehensive metabolic 2000 panelon 11-29-2023 Albumin [Mass/Vol] 4.0 g/dL Normal 3.9-4.9 [facility] Comment on above: Order Comment: Loni sanchez Type: BLOOD SPECIMEN Ordering Facility: [facility] Address: [address] [place] [address] Performed By: #### 1 9123-01, 1987-09, [id number], #### [facility] CLIA [id number] [address] [place] [address] [place] ALP [Catalytic activity/Vol] 88 U/L Normal 34-123 [facility] Comment on above: Order Comment: Loni sanchez Type: BLOOD SPECIMEN Ordering Facility: [facility] Address: [address] [place] [address] Performed By: #### 1 9123-01, 1987-09, [id number], #### [facility] CLIA [id number] [address] [place] [address] [place] ALT [Catalytic activity/Vol] 20 U/L Normal 7-38 [facility] Comment on above: Order Comment: Speci men Type: BLOOD SPECIMEN Ordering Facility: [facility] Address: [address] [place] [address] Performed By: #### 1 9123-01, 1987-09, [id number], #### [facility] CLIA [id number] [address] [place] [address] [place] Anion gap [Moles/Vol] 9 mmol/L Normal 8-15 [facility] Comment on above: Order Comment: Speci men Type: BLOOD SPECIMEN Ordering Facility: [facility] Address: [address] [place] [address] Performed By: #### 1 9123-01, 1987-09, [id number], #### [facility] CLIA [id number] [address] [place] [address] [place] AST [Catalytic activity/Vol] 19 U/L Normal 13-35 [facility] Comment on above: Order Comment: Speci men Type: BLOOD SPECIMEN Ordering Facility: [facility] Address: [address] [place] [address] Performed By: #### 1 9123-01, 1987-09, [id number], #### [facility] CLIA [id number] [address] [place] [address] [place] Bilirubin [Mass/Vol] 0.4 mg/dL Normal 0.2-1.3 [facility] Comment on above: Order Comment: Speci men Type: BLOOD SPECIMEN Ordering Facility: [facility] Address: [address] [place] [address] Performed By: #### 1 9123-01, 1987-09, [id number], #### [facility] CLIA [id number] [address] [place] [address] [place] Calcium [Mass/Vol] 9.1 mg/dL Normal 8.5-10.2 [facility] Comment on above: Order Comment: Speci men Type: BLOOD SPECIMEN Ordering Facility: [facility] Address: [address] [place] [address] Performed By: #### 1 9123-01, 1987-09, [id number], #### [facility] CLIA [id number] [address] [place] [address] [place] Chloride [Moles/Vol] 104 mmol/L Normal 98-107 [facility] Comment on above: Order Comment: Speci men Type: BLOOD SPECIMEN Ordering Facility: [facility] Address: [address] [place] [address] Performed By: #### 1 9123-01, 1987-09, [id number], #### [facility] CLIA [id number] [address] [place] [address] [place] CO2 [Moles/Vol] 26 mmol/L Normal 22-30 [facility] Comment on above: Order Comment: Speci men Type: BLOOD SPECIMEN Ordering Facility: [facility] Address: [address] [place] [address] Performed By: #### 1 9123-01, 1987-09, [id number], #### [facility] CLIA [id number] [address] [place] [address] [place] Creatinine [Mass/Vol] 0.93 mg/dL Normal 0.58-0.96 [facility] Comment on above: Order Comment: Speci men Type: BLOOD SPECIMEN Ordering Facility: [facility] Address: [address] [place] [address] Performed By: #### 1 9, 1987-09, [id number], #### [facility] CLIA [id number] [address] [place] [address] [place] [facility] [place] Creatinine and Glomerular filtration rate.predicted panel (S/P/Bld) 72 mL/min/1.73m??? Normal >=60 [facility] Comment on above: Order Comment: Speci men Type: BLOOD SPECIMEN Ordering Facility: [facility] Address: [address] [place] [address] Result Comment: Elana mated Glomerular Filtration Rate [...] GFR. Performed By: #### 1 9123-01, 1987-09, [id number], #### [facility] CLIA [id number] [address] [place] [address] [place] Glucose [Mass/Vol] 92 mg/dL Normal 74-99 [facility] Comment on above: Order Comment: Loni sanchez Type: BLOOD SPECIMEN Ordering Facility: [facility] Address: [address] [place] [address] Result Comment: The [place] [employer] (ADA) provides guidance for cutoff [...] Standards of Medical Care in Diabetes 2016, [place] [employer]. Diabetes Care. 2016.39(Suppl 1). Performed By: #### 1 9123-01, 1987-09, [id number], #### [facility] CLIA [id number] [address] [place] [address] [place] Potassium [Moles/Vol] 3.8 mmol/L Normal 3.7-5.1 [facility] Comment on above: Order Comment: Loni sanchez Type: BLOOD SPECIMEN Ordering Facility: [facility] Address: [address] [place] [address] Performed By: #### 1 9123-01, 1987-09, [id number], #### [facility] CLIA [id number] [address] [place] [address] [place] Protein [Mass/Vol] 6.6 g/dL Normal 6.3-8.0 [facility] Comment on above: Order Comment: Loni sanchez Type: BLOOD SPECIMEN Ordering Facility: [facility] Address: [address] [place] [address] Performed By: #### 1 91239, 1987-09, [id number], #### [facility] CLIA [id number] [address] [place] Sodium [Moles/Vol] 139 mmol/L Normal 136-144 [facility] Comment on above: Order Comment: Loni sanchez Type: BLOOD SPECIMEN Ordering Facility: [facility] Address: [address] [place] [address] Performed By: #### 1 91239, 1987-09, [id number], #### [facility] CLIA [id number] [address] [place] Urea nitrogen [Mass/Vol] 6 mg/dL Low 7-21 [facility] Comment on above: Order Comment: Loni men Type: BLOOD SPECIMEN Ordering Facility: [facility] Address: [address] [place] [address] Performed By: #### 1 9123-9, 1987-09, [id number], #### [facility] CLIA [id number] [address] [facility] ECG COMPLETEon 11-29-2023 ECG COMPLETE Ventricular Rate : 6 4 BPM Atrial Rate : 64 BPM P-R Interval : 164 ms QRS Duration : 80 ms Q-T Interval : 402 ms QTC Calculation(Bazett) : 414 ms Calculated P [place] : 46 degrees Calculated R [place] : 48 degrees Calculated T [place] : 47 degrees NORMAL SINUS RHYTHM NORMAL ECG NO STEMI Confirmed by URI CLARK DO ([id number]), acquisitions editor SONALI ACOSTA ([id number]) on 11/30/2023 7:12:19 AM NAME : JOSIE LANDIS PID : [id number] : 1965 Gender : Female Race : ORD : [id number] Procedure Date : Nov 29 2023 14:35:34 Edit Date : Nov 30 2023 07:12:21 Diagnosis: NORMAL SINUS RHYTHM NORMAL ECG NO STEMI Confirmed by URI CLARK DO ([id number]), acquisitions editor SONALI ACOSTA ([id number]) on 11/30/2023 7:12:19 AM Test Reason : Chest Pain Location : 1 : ER OR Overread By : URI CLARK DO Edited By : SONALI ACOSTA Referred By : , Acquired by : NO ID, Normal [facility] ED NOTEon 11-29-2023 ED NOTE HNO ID: [id number] Author: PAULA HILL RN Service: Nursing Author Type: Registered Nurse Type: ED Notes Filed: 11/29/2023 16:47 Note Text: Follow up with neuro gait is steady [facility] ED NOTE HNO ID: [id number] Author: PAULA HILL RN Service: Nursing Author Type: Registered Nurse Type: ED Notes Filed: 11/29/2023 16:42 Note Text: PA has been bedside Pt is to follow up with her neurologist [facility] ED NOTE HNO ID: [id number] Author: PAULA HILL RN Service: Nursing Author Type: Registered Nurse Type: ED Notes Filed: 11/29/2023 15:03 Note Text: Pt has returned from radiology per the er cart male is bedside [facility] ED NOTE HNO ID: [id number] Author: PAULA HILL RN Service: Nursing Author Type: Registered Nurse Type: ED Notes Filed: 11/29/2023 14:57 Note Text: Pt to ct scan per the er cart [facility] ED NOTE HNO ID: [id number] Author: PAULA HILL RN Service: Nursing Author Type: Registered Nurse Type: ED Notes Filed: 11/29/2023 14:23 Note Text: Pt has ambulated to the bathroom gait is steady [facility] ED NOTE HNO ID: [id number] Author: PAULA HILL RN Service: Nursing Author Type: Registered Nurse Type: ED Notes Filed: 11/29/2023 14:17 Note Text: Pt is alert and oriented times 3 male is bedside pt denies pain denies headache [facility] ED NOTE HNO ID: [id number] Author: PAULA HILL RN Service: Nursing Author Type: Registered Nurse Type: ED Notes Filed: 11/29/2023 14:08 Note Text: Dr Clark is bedside Pt is talking and male is bedside Normal [facility] ED PROV NOTEon 11-29-2023 ED PROV NOTE HNO ID: [id number] Author: URI CLARK DO Service: Emergency Medicine [...] driving in the truck to go to [place] with her , 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 They pulled [...] with the brain tumor [facility]. Underwent extensive workup, including a biopsy, showing [...] provided by: Patient, medical records and spouse interpreter and translator used: No PAST MEDICAL HISTORY Diagnosis Date Asthma due to seasonal allergies 11/02/2022 Basal cell carcinoma (BCC) of cheek 2020 left cheek Bipolar affective (HCC) Coronary artery disease Coronary artery disease involving [place] coronary artery of [place] heart without angina pectoris 11/02/2022 Gastroesophageal reflux [...] asked AL (more content not included)... Normal [facility] HIGH SENSITIVITY TROPONIN T (INITIAL)on 11-29-2023 Troponin T.cardiac High sensitivity method [Mass/Vol] <6 Normal <12 [facility] Comment on above: Order Comment: Speci men Type: BLOOD SPECIMEN Ordering Facility: [facility] Address: [address] [place] [address] Performed By: #### 1 91239, 1987-09, [id number], #### [facility] CLIA [id number] [address] [place] HIGH SENSITIVITY TROPONIN T (SECOND)on 11-29-2023 Troponin T.cardiac High sensitivity method [Mass/Vol] <6 Normal <12 [facility] Comment on above: Order Comment: Speci men Type: BLOOD SPECIMEN Ordering Facility: [facility] Address: [address] [place] [address] Performed By: #### L [id number] #### [facility] CLIA [id number] [address] [place] [address] [place] Magnesium SerPl-mCncon 11-28 Magnesium [Mass/Vol] 2.2 mg/dL Normal 1.7-2.3 [facility] Comment on above: Order Comment: Speci men Type: BLOOD SPECIMEN Ordering Facility: [facility] Address: [address] [place] [address] Performed By: #### 1 91239, 1987-09, [id number], #### [facility] CLIA [id number] [address] [place] [address] [place] TOXICOLOGY SCREEN, ROUTINE U RINEon 11-29-2023 Amphetamines Confirm (U) [Mass/Vol] Negative Normal Negative [facility] Comment on above: Order Comment: Speci men Type: URINE SPECIMEN Ordering Facility: [facility] Address: [address] [place] [address] Result Comment: Cuto ff threshold at 1000 ng/mL. Performed By: #### U TOX2 #### [facility] CLIA [id number] [address] BARBITURATES, URINE Negative Normal Negative [facility] Comment on above: Order Comment: Speci men Type: URINE SPECIMEN Ordering Facility: [facility] Address: [address] [place] [address] Result Comment: Cuto ff threshold at 200 ng/mL. Performed By: #### U TOX2 #### [facility] CLIA [id number] [address] [place] [address] [place] BENZODIAZEPINES, UR Negative Normal Negative [facility] Comment on above: Order Comment: Speci men Type: URINE SPECIMEN Ordering Facility: [facility] Address: [address] [place] [address] Result Comment: Cuto ff threshold at 200 ng/mL. Performed By: #### U TOX2 #### [facility] CLIA [id number] [address] Cannabinoids Screen Ql (U) Positive Abnormal Negative [facility] Comment on above: Order Comment: Speci men Type: URINE SPECIMEN Ordering Facility: [facility] Address: [address] [place] [address] Result Comment: Cuto ff threshold at 50 ng/mL. Performed By: #### U TOX2 #### [facility] CLIA [id number] [address] Cocaine Ql (U) Negative Normal Negative [facility] Comment on above: Order Comment: Speci men Type: URINE SPECIMEN Ordering Facility: [facility] Address: [address] [place] [address] Result Comment: Cuto ff threshold at 300 ng/mL. Performed By: #### U TOX2 #### [facility] CLIA [id number] [address] [place] [address] [place] Ethanol (U) [Mass/Vol] <11 Normal <11 [facility] Comment on above: Order Comment: Speci men Type: URINE SPECIMEN Ordering Facility: [facility] Address: [address] [place] [address] Performed By: #### U TOX2 #### [facility] CLIA [id number] [address] [place] Opiates Screen Ql (U) Negative Normal Negative [facility] Comment on above: Order Comment: Speci men Type: URINE SPECIMEN Ordering Facility: [facility] Address: [address] [place] [address] Result Comment: Cuto ff threshold at 300 ng/mL. Performed By: #### U TOX2 #### [facility] CLIA [id number] [address] oxyCODONE cutoff Screen (U) [Mass/Vol] Negative Normal Negative [facility] Comment on above: Order Comment: Speci men Type: URINE SPECIMEN Ordering Facility: [facility] Address: [address] [place] [address] Result Comment: Cuto ff threshold at 100 ng/mL. Performed By: #### U TOX2 #### [facility] CLIA [id number] [address] Phencyclidine Ql (U) Negative Normal Negative [facility] Comment on above: Order Comment: Speci men Type: URINE SPECIMEN Ordering Facility: [facility] Address: [address] [place] [address] Result Comment: Cuto ff threshold at 25 ng/mL. Performed By: #### U TOX2 #### [facility] CLIA [id number] [address] Urinalysis complete panel (U )on 11-29-2023 Bacteria LM.HPF (Urine sed) [#/Area] Few Abnormal None Seen [facility] Comment on above: Order Comment: Speci men Type: URINE SPECIMEN Ordering Facility: [facility] Address: [address] [place] [address] Performed By: #### 2 4356-8 #### [facility] CLIA [id number] [address] [place] Bilirubin Ql (U) Negative Normal Negative [facility] Comment on above: Order Comment: Speci men Type: URINE SPECIMEN Ordering Facility: [facility] Address: [address] [place] [address] Performed By: #### 2 4356-8 #### [facility] CLIA [id number] [address] [place] Clarity (Unsp spec) Clear Normal Clear [facility] Comment on above: Order Comment: Speci men Type: URINE SPECIMEN Ordering Facility: [facility] Address: [address] [place] [address] Performed By: #### 2 4356-8 #### [facility] CLIA [id number] [address] [place] Color (U) Yellow Normal Yellow [facility] Comment on above: Order Comment: Speci men Type: URINE SPECIMEN Ordering Facility: [facility] Address: [address] [place] [address] Performed By: #### 2 4356-8 #### [facility] CLIA [id number] [address] Epithelial cells LM.HPF (Urine sed) [#/Area] Few Normal [facility] Comment on above: Order Comment: Speci men Type: URINE SPECIMEN Ordering Facility: [facility] Address: [address] [place] [address] Performed By: #### 2 4356-8 #### [facility] CLIA [id number] [address] [place] Glucose Test strip (U) [Mass/Vol] Negative Normal Negative [facility] Comment on above: Order Comment: Speci men Type: URINE SPECIMEN Ordering Facility: [facility] Address: [address] [place] [address] Performed By: #### 2 4356-8 #### [facility] CLIA [id number] [address] [place] [address] [place] Hemoglobin Ql (U) Negative Normal Negative [facility] Comment on above: Order Comment: Speci men Type: URINE SPECIMEN Ordering Facility: [facility] Address: [address] [place] [address] Performed By: #### 2 4356-8 #### [facility] CLIA [id number] [address] [place] [address] [place] [facility] [place] Ketones Ql (U) Negative Normal Negative [facility] Comment on above: Order Comment: Speci men Type: URINE SPECIMEN Ordering Facility: [facility] Address: [address] [place] [address] Performed By: #### 2 4356-8 #### [facility] CLIA [id number] [address] Leukocyte esterase Test strip Ql (U) Trace Abnormal Negative [facility] Comment on above: Order Comment: Speci men Type: URINE SPECIMEN Ordering Facility: [facility] Address: [address] [place] [address] Performed By: #### 2 4356-8 #### [facility] CLIA [id number] [address] Nitrite Ql (U) Negative Normal Negative [facility] Comment on above: Order Comment: Speci men Type: URINE SPECIMEN Ordering Facility: [facility] Address: [address] [place] [address] Performed By: #### 2 4356-8 #### [facility] CLIA [id number] [address] pH (U) 7.5 [pH] Normal 5.0-8.0 [facility] Comment on above: Order Comment: Speci men Type: URINE SPECIMEN Ordering Facility: [facility] Address: [address] [place] [address] Performed By: #### 2 4356-8 #### [facility] CLIA [id number] [address] Protein (U) [Mass/Vol] Negative Normal Negative [facility] Comment on above: Order Comment: Speci men Type: URINE SPECIMEN Ordering Facility: [facility] Address: [address] [place] [address] Performed By: #### 2 4356-8 #### [facility] CLIA [id number] [address] [place] RBC LM.HPF (Urine sed) [#/Area] 0-3 /HPF Normal 0-3 /HPF [facility] Comment on above: Order Comment: Speci men Type: URINE SPECIMEN Ordering Facility: [facility] Address: [address] [place] [address] Performed By: #### 2 4356-8 #### [facility] CLIA [id number] [address] [place] [facility] Specific gravity (U) [Rel density] 1.010 Normal 1.005-1.03 0 [facility] Comment on above: Order Comment: Speci men Type: URINE SPECIMEN Ordering Facility: [facility] Address: [address] [place] [address] Performed By: #### 2 4356-8 #### [facility] CLIA [id number] [address] Urobilinogen Ql (U) 0.2 EU/dL Normal 0.2-1.0 EU/dL [facility] Comment on above: Order Comment: Speci men Type: URINE SPECIMEN Ordering Facility: [facility] Address: [address] [place] [address] Performed By: #### 2 4356-8 #### [facility] CLIA [id number] [address] WBC LM.HPF (Urine sed) [#/Area] 0-5 /HPF Normal 0-5 /HPF [facility] Comment on above: Order Comment: Speci men Type: URINE SPECIMEN Ordering Facility: [facility] Address: [address] [place] [address] Performed By: #### 2 4356-8 #### [facility] CLIA [id number] [address] MR Brain WO and W contrast I Von 10-19-2023 IMPRESSION: Unchanged appearance of the brain compared to most recent MRI performed 07/19/2023 with no new or enlarging lesions identified. No abnormal enhancement. Primary differential considerations include sequelae of nonspecific inflammatory and 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 process with neoplasm considered less likely. Glue Bone Crusher: PSCB Transcribe Date/Time: Oct 19 2023 10:20A Dictated by : MAKAYLA MARQUEZ MD This examination was interpreted and the report reviewed and electronically signed by: MAKAYLA MARQUEZ MD on Oct 19 2023 10:32AM [facility] DIVISION OF RADIOLOGY * * *Final Report* * * DATE OF EXAM: Oct 19 2023 9:57AM [facility] 0295 - MRI BRAIN WO/W IVCON / [...] tissues are unremarkable. DIVISION OF RADIOLOGY Provider, [facility] - 10/19/2023 * * *Final Report* * * DATE OF EXAM: Oct 19 2023 9:57AM [facility] 0295 - MRI BRAIN WO/W IVCON / [...] 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 process with neoplasm considered less likely. Glue Bone Crusher: RHIANNON Transcribe Date/Time: Oct 19 2023 10:20A Dictated by : MAKAYLA MARQUEZ MD This examination was interpreted and the report reviewed and electronically signed by: MAKAYLA MARQUEZ MD on Oct 19 2023 10:32AM EST [facility] Hospital Radiology Study observation (narrative) [facility] MR Brain WO and W contrast I VOrdered By: Ccf Provider on 10-19-2023 [facility] No Panel Informationon 07-18 [facility] INTERLEUKIN 2 RECEPTOR, SOLU BLE, SERUMon 06-11-2023 Interleukin-2 Receptor 1187.2 pg/mL High 175.3 - 858.2 pg/mL [facility] STEVAN BY IFA WITH REFLEXon Nuclear Ab Ql (S) Negative Negative [facility] ANTI NEUTRO CYTO ABon 2023 Interpretation (ANCA) Negative for C-ANC A and P-ANCA by indirect immunofluorescence. [facility] Neutrophil cytoplasmic Ab.classic IF Ql (S) Negative Negative [facility] Neutrophil cytoplasmic Ab.perinuclear IF Ql (S) Negative Negative [facility] Staff Review (ANCA) No review performed. [facility] CCP ANTIBODY IGGon Cyclic citrullinated peptide IgG Qn <20 Units [facility] Cyclic citrullinated peptide IgG Qnon 06-10-2023 CCP Antibody IgG Qualitative Negative Negative [facility] 1,25-dihydroxyvitamin D3 [Ma ss/Vol]on 06-09-2023 1,25 Dihydroxy Vitamin Total 61.3 pg/mL 19.9 - 79.3 pg/mL [facility] CATRACHO/ANGIOTENSIN BLDon 2023 Angiotensin converting enzyme [Catalytic activity/Vol] 45 U/L <=52 U/L [facility] C3 COMPLEMENT Don 06-09-19 24 Complement C3 [Mass/Vol] 123 mg/dL 86 - 166 mg/dL [facility] C4 COMPLEMENT Don 06-09-19 24 Complement C4 [Mass/Vol] 18 mg/dL 13 - 46 mg/dL [facility] RHEUMATOID FACTOR BLon 06-09 Rheumatoid factor Qn <16 IU/mL [facility] FLOW CYTOMETRY FOR LEUKEMIA/ LYMPHOMA (FCLL) PERFORMABLEon 03-22-2023 Flow Cytometry Order Status See Results in chart under F case ID [facility] FLOW CYTOMETRY FOR LEUKEMIA/ LYMPHOMA (FCLL) REFLEXon 03-22-2023 Diagnosis Comment This assay is not designed to detect minimal residual disease, plasma cell neoplasms, or myeloid antigen maturational patterns. This test was developed and its performance characteristics determined by [facility]'s [facility] Pathology [facility] Laboratory Medicine [place] ([facility]). It has not been cleared or approved by the FDA. -[facility] is regulated under CLIA as qualified to perform high-complexity testing. This test is used for clinical purposes. It should not be regarded as investigational or for research. [facility] Gross Description A. CEREBROSPINAL FLU ID. Received 5 mL CSF [facility] Interpretation There is no evidence of involvement by a lymphoproliferative disorder or abnormal blast population. Correlation with the clinical findings is suggested. [facility] Performing Lab Diagnostic interpret ation performed at [facility], [address] [place] [address] CLIA# [id number] Machine Group Leader: Jasen Rivera M.D. [facility] Results Specimen type: Cerebrospinal fluid. Total nucleated cell count: 19 /uL Red blood cell count: 11 /uL Differential (CSF): Neutrophil: 0%; Lymphocyte: 95%; Monocyte: 5%; Eosinophil: 0%; Lining cell: 0%; Reactive lymphocyte: 0%; Other: 0% Morphology comments: Predominantly small lymphocytes. See cytology report ([id number]). Viability: 100% Flow Cytometry Body Fluid Immunophenotyping [...] (<1%). Granulocytic elements are 1% of events. HU45-[id number] blasts are not detected. MT/KAB 03/22/2023 [facility] MRI BRAIN WO/W IVCONon 02-18 [facility] MRI LUMBAR SPINE WO/W IVCONo n 02-18-2023 [facility] MRI BRAIN WO/W IVCONon 12-[address] [facility] [address] ABD/PEL W IVCONon [address] [facility] [address] CHEST W IVCONon 3 Radiology Result ACTIONABLE Abnormal [facility] MRI BRAIN LOCALIZATION WO/W IVCONon 11-02-2022 [facility] Basophil percentageOrdered B y: José Luis Stauffer on 10-22-2022 Chloride [Moles/Vol] 101 mmol/L 98-107 [facility] Glucose [Mass/Vol] 102 mg/dL 74-106 [facility] Comment on above: Fasting Glucose resu lt from 100 to 125 mg/dL suggests IMPAIRED HOMEOSTASIS per A.D.A. criteria. Potassium [Moles/Vol] 3.4 mmol/L 3.5-5.1 [facility] Sodium [Moles/Vol] 132 mmol/L 136-145 [facility] Laboratory - Chemistry and C hemistry - challengeOrdered By: José Luis Stauffer on 10-22-2022 CO2 [Moles/Vol] 26.0 mmol/L 21.0-32.0 Urea nitrogen/Creatinine [Mass ratio] 9.3 mg/mg 10-20 No Panel InformationOrdered By: José Luis Stauffer on 10-22-2022 Estimated GFR (MDRD) Amer 88 mL/min >60 Comment on above: GFR Calc Estimated GFR (MDRD) Non-Af Amer 73 mL/min >60 Comment on above: Non- GFR Calc Serum or plasma calcium leonel urement (mass/volume)Ordered By: José Luis Stauffer on 10-22-2022 Calcium [Mass/Vol] 8.6 mg/dL 8.5-10.1 [facility] Serum or plasma creatinine m easurement (mass/volume)Ordered By: José Luis Stauffer on 10-22-2022 Creatinine [Mass/Vol] 0.86 mg/dL 0.55-1.02 [facility] Comment on above: The validity of the calculated GFR & GFRAA in patients over 70 years has not been determined. Clinical correlation is essential. Serum or plasma urea nitroge n measurement (mass/volume)Ordered By: José Luis Stauffer on 10-22-2022 Urea nitrogen [Mass/Vol] 8 mg/dL 7-18 Thin prep Papanicolaou smear with manual screeningOrdered By: José Luis Stauffer on 10-22-2022 Thin prep Papanicolaou smear with manual screening 5 5-15 MRI BRAIN WO/W IVCONon 09-25 [facility] CBC W/AUTO DIFF WBC ([id number])O rdered By: Plastics Repairer on 09-23-2022 Basophils (Bld) [#/Vol] 0.0 10*3/uL Normal 0.0-0.2 [facility]; [facility] Work Phone: Comment on above: PATIENT WAS FASTINGP ERFORMED BY: [facility] Drlepd8254 [facility] [id number] Basophils/100 WBC (Bld) 1 % Normal [facility]; [facility] Work Phone: Comment on above: PATIENT WAS FASTINGP ERFORMED BY: CB [facility] Wtusup6498 [address]Dublin [place] [id number] Eosinophils (Bld) [#/Vol] 0.1 10*3/uL Normal 0.0-0.4 [facility]; [facility] Work Phone: Comment on above: PATIENT WAS FASTINGP ERFORMED BY: CB [facility] Zxkwya3607 [address]Dublin [place] [id number] Eosinophils/100 WBC (Bld) 2 % Normal [facility]; [facility] Work Phone: Comment on above: PATIENT WAS FASTINGP ERFORMED BY: CB [facility] Jrqfwf9395 [address]blin [place] [id number] Erythrocyte distribution width (RBC) [Ratio] 13.0 % Normal 11.7-15.4 [facility]; [facility] Work Phone: Comment on above: PATIENT WAS FASTINGP ERFORMED BY: CB [facility] Hgcaok1863 [address]Dublin [place] [id number] Hematocrit (Bld) [Volume fraction] 41.8 % Normal 34.0-46.6 [facility]; [facility] Work Phone: Comment on above: PATIENT WAS FASTINGP ERFORMED BY: [facility] Qribxd2914 [address]Dublin [place] [id number] Hemoglobin (Bld) [Mass/Vol] 14.5 g/dL Normal 11.1-15.9 [facility]; [facility] Work Phone: Comment on above: PATIENT WAS FASTINGP ERFORMED BY: CB [facility] Xxanld6522 [address]Dublin [place] [id number] Immature granulocytes (Bld) [#/Vol] 0.0 10*3/uL Normal 0.0-0.1 [facility]; [facility] Work Phone: Comment on above: PATIENT WAS FASTINGP ERFORMED BY: CB [facility] Izalqz1356 [address]Dublin [place] [id number] Immature granulocytes/100 WBC (Bld) 0 % Normal [facility]; [facility] Work Phone: Comment on above: PATIENT WAS FASTINGP ERFORMED BY: DEACON [facility] Ovzotf8050 [address]Dublin [place] [id number] Lymphocytes (Bld) [#/Vol] 1.5 10*3/uL Normal 0.7-3.1 [facility]; [facility] Work Phone: Comment on above: PATIENT WAS FASTINGP ERFORMED BY: [facility] Akwpsb3671 [address]Dublin [place] [id number] Lymphocytes/100 WBC (Bld) 32 % Normal [facility]; [facility] Work Phone: Comment on above: PATIENT WAS FASTINGP ERFORMED BY: DEACON [facility] Ilusjo5856 [address] RoadCone [facility] Med[facility] Pointin [place] [id number] MCH (RBC) [Entitic mass] 30.7 pg Normal 26.6-33.0 [facility]; [facility] Work Phone: Comment on above: PATIENT WAS FASTINGP ERFORMED BY: [facility] Fikgdx7217 [address] [facility]in [place] [id number] MCHC (RBC) [Mass/Vol] 34.7 g/dL Normal 31.5-35.7 [facility] prehensive Internal Medicine; [facility] Work Phone: Comment on above: PATIENT WAS FASTINGP ERFORMED BY: [facility] Ufjikm5657 [address] [facility]in [place] [id number] MCV (RBC) [Entitic vol] 89 fL Normal 79-97 [facility]; [facility] Work Phone: Comment on above: PATIENT WAS FASTINGP ERFORMED BY: [facility] Uodgqz1208 [address] RoadDublin [place] [id number] Monocytes (Bld) [#/Vol] 0.4 10*3/uL Normal 0.1-0.9 [facility]; [facility] Work Phone: Comment on above: PATIENT WAS FASTINGP ERFORMED BY: [facility] Aupfcb1545 [address] RoadDublin [place] [id number] Monocytes/100 WBC (Bld) 9 % Normal [facility]; [facility] Work Phone: Comment on above: PATIENT WAS FASTINGP ERFORMED BY: DEACON Qian Huerta6370 [address]Dublin [place] [id number] Neutrophils (Bld) [#/Vol] 2.6 10*3/uL Normal 1.4-7.0 [facility]; [facility] Work Phone: Comment on above: PATIENT WAS FASTINGP ERFORMED BY: DEACON Ledy Eoykpw0277 [address] RoadDublin [place] [id number] Neutrophils/100 WBC (Bld) 56 % Normal [facility]; [facility] Work Phone: Comment on above: PATIENT WAS FASTINGP ERFORMED BY: DEACON Stephaniealbert Ekfjep9444 [address] RoadDublin [place] [id number] Platelets (Bld) [#/Vol] 169 10*3/uL Normal 150-450 [facility]; [facility] Work Phone: Comment on above: PATIENT WAS FASTINGP ERFORMED BY: DEACON Lablesia Lwbefp6460 [address] RoadDublin [place] [id number] RBC (Bld) [#/Vol] 4.72 10*6/uL Normal 3.77-5.28 Compr ehensive [facility]; [facility] Work Phone: Comment on above: PATIENT WAS FASTINGP ERFORMED BY: DEACON Lablesia Uzznzw0040 [address]Dublin [place] [id number] WBC (Bld) [#/Vol] 4.6 10*3/uL Normal 3.4-10.8 [facility]; [facility] Work Phone: Comment on above: PATIENT WAS FASTINGP ERFORMED BY: DEACON [facility] Mpwyik7148 [address] RoadDublin [place] [id number] LIPID PANEL ([id number])Ordered B y: Plastics Repairer on 09-23-2022 Cholesterol [Mass/Vol] 199 mg/dL Normal 100-199 [facility]; [facility] Work Phone: Comment on above: PATIENT WAS FASTINGP ERFORMED BY: DEACON Wonglin6370 [address]Dublin [place] [id number] Cholesterol in HDL [Mass/Vol] 68 mg/dL Normal [facility]; [facility] Work Phone: Comment on above: PATIENT WAS FASTINGP ERFORMED BY: DEACON Wonglin6370 [address]Dublin [place] [id number] Triglyceride [Mass/Vol] 103 mg/dL Normal 0-149 [facility]; [facility] Work Phone: Comment on above: PATIENT WAS FASTINGP ERFORMED BY: DEACON Labalbert WongJhycbl9407 [address] RoadDublin [place] [id number] LIPID PANEL ([id number]) 18 mg/dL Normal 5-40 [facility]; [facility] Work Phone: Comment on above: PATIENT WAS FASTINGP ERFORMED BY: DEACON Wonglin6370 [address]Dublin [place] [id number] LIPID PANEL (22178) 113 mg/dL Abnormal 0-99 [facility]; [facility] Work Phone: Comment on above: PATIENT WAS FASTINGP ERFORMED BY: DEACON Wonglin6370 [address]Dublin [place] [id number] LIPID PANEL (90451) 1.7 {ratio} Normal 0.0-3.2 [facility] Internal [facility]; [facility] Work Phone: Comment on above: LDL/HDL Ratio Men Wo men 1/2 Avg.Risk 1.0 1.5 Avg.Risk 3.6 3.2 2X Avg.Risk 6.2 5.0 3X Avg.Risk 8.0 6.1 PATIENT WAS FASTINGP ERFORMED BY: DEACON Labalbert Azyysu4854 [address] RoadDublin [place] [id number] METABOLIC PANEL, COMPREHENSI VE ([id number])Ordered By: Plastics Repairer on 09-23-2022 Albumin [Mass/Vol] 4.3 g/dL Normal 3.8-4.9 [facility] Internal [facility]; [facility] Work Phone: Comment on above: PATIENT WAS FASTINGP ERFORMED BY: DEACON Madrigal Ynovsm9337 [address] RoadDublin [place] [id number] Albumin/Globulin [Mass ratio] 2.4 {ratio} Abnormal 1.2-2.2 [facility]; [facility] Work Phone: Comment on above: PATIENT WAS FASTINGP ERFORMED BY: DEACON [facility] Llbecp6195 [address]blin [place] [id number] ALP [Catalytic activity/Vol] 91 U/L Normal 44-121 [facility]; [facility] Work Phone: Comment on above: PATIENT WAS FASTINGP ERFORMED BY: LabMcL[facility]6370 [address]Dublin [place] [id number] ALT [Catalytic activity/Vol] 25 U/L Normal 0-32 [facility]; [facility] Work Phone: Comment on above: PATIENT WAS FASTINGP ERFORMED BY: DEACON [facility] Muziie6077 [address] RoadDublin [place] [id number] AST [Catalytic activity/Vol] 21 U/L Normal 0-40 [facility]; [facility] Work Phone: Comment on above: PATIENT WAS FASTINGP ERFORMED BY: DEACON [facility] Xiiyik4164 [address]blin [place] [id number] Bilirubin [Mass/Vol] 0.3 mg/dL Normal 0.0-1.2 [facility] rehensive Internal Medicine; [facility] Work Phone: Comment on above: PATIENT WAS FASTINGP ERFORMED BY: [facility]6[address] RoadC[facility] Med[facility]in [place] [id number] Calcium [Mass/Vol] 9.2 mg/dL Normal 8.7-10.2 [facility]; [facility] Work Phone: Comment on above: PATIENT WAS FASTINGP ERFORMED BY: DEACON [facility] Hsqerc5782 [address]blin [place] [id number] Chloride [Moles/Vol] 100 mmol/L Normal 96-106 Comp rehensive Internal Medicine; [facility] Work Phone: Comment on above: PATIENT WAS FASTINGP ERFORMED BY: DEACON [facility] Iqqoyb8541 [address] RoadDublin [place] [id number] CO2 [Moles/Vol] 23 mmol/L Normal 20-29 [facility]; [facility] Work Phone: Comment on above: PATIENT WAS FASTINGP ERFORMED BY: CB [facility] Edxmez2400 [address]Dublin [place] [id number] Creatinine [Mass/Vol] 0.95 mg/dL Normal 0.57-1.00 [facility] prehensive Internal Medicine; [facility] Work Phone: Comment on above: PATIENT WAS FASTINGP ERFORMED BY: [facility] Wvbbgp0315 [address] RoadDublin [place] [id number] GFR/1.73 sq M.predicted among non-blacks MDRD (S/P/Bld) [Vol rate/Area] 71 mL/min/{1.73_m2} Normal Comprehensiv e Internal Medicine; [facility] Work Phone: Comment on above: PATIENT WAS FASTINGP ERFORMED BY: [facility] Eavkyf5985 [address] RoadDublin [place] [id number] Globulin (S) [Mass/Vol] 1.8 g/dL Normal 1.5-4.5 [facility] Internal [facility]; [facility] Work Phone: Comment on above: PATIENT WAS FASTINGP ERFORMED BY: [facility] Kkijkj3061 [address] RoadDublin [place] [id number] Glucose [Mass/Vol] 89 mg/dL Normal 70-99 [facility]; [facility] Work Phone: Comment on above: PATIENT WAS FASTINGP ERFORMED BY: CB [facility] Axntub0797 [address]Dublin [place] [id number] Potassium [Moles/Vol] 4.2 mmol/L Normal 3.5-5.2 [facility] Internal [facility]; [facility] Work Phone: Comment on above: PATIENT WAS FASTINGP ERFORMED BY: CB [facility] Fwaqyh0383 [address] RoadDublin [place] [id number] Protein [Mass/Vol] 6.1 g/dL Normal 6.0-8.5 [facility]; [facility] Work Phone: Comment on above: PATIENT WAS FASTINGP ERFORMED BY: DEACON Labalbert Huerta6370 [address]Dublin [place] [id number] Sodium [Moles/Vol] 136 mmol/L Normal 134-144 [facility]; [facility] Work Phone: Comment on above: PATIENT WAS FASTINGP ERFORMED BY: DEACON Labalbert WongCmxezm4120 [address]Dublin [place] [id number] Urea nitrogen [Mass/Vol] 10 mg/dL Normal 6-24 [facility]; [facility] Work Phone: Comment on above: PATIENT WAS FASTINGP ERFORMED BY: DEACON Ledybonnie Fnoxnv7592 [address]Dublin [place] [id number] Urea nitrogen/Creatinine [Mass ratio] 11 mg/mg Normal 9-23 [facility]; [facility] Work Phone: Comment on above: PATIENT WAS FASTINGP ERFORMED BY: DEACON Wonglin[address] [facility] Hospitalbl[facility] [place] [id number] MICROALBUMINOrdered By: Syst em [employer] Professor on 09-23-2022 Albumin DL <= 20 mg/L (U) [Mass/Vol] 5.5 ug/mL Normal [facility]; [facility] Work Phone: Comment on above: PATIENT WAS FASTINGP ERFORMED BY: DEACON Labalbert Goqkma[address] [facility] Hospitalblin [place] [id number] Albumin/Creatinine (U) [Mass ratio] 7 {mg/g_creat} Normal 0-29 [facility]; [facility] Work Phone: Comment on above: Normal: 0 - 29 Moder ately increased: 30 - 300 Severely increased: >300 PATIENT WAS FASTINGP ERFORMED BY: DEACON Labalbert Ipbeha6531 [address]Dublin [place] [id number] Creatinine (U) [Mass/Vol] 78.1 mg/dL Normal [facility]; [facility] Work Phone: Comment on above: PATIENT WAS FASTINGP ERFORMED BY: DEACON Ledybonnie WongZawamv8700 [address] RoadDublin [place] [id number] TSH ([id number])Ordered By: FirstRaine m [employer] Professor on 09-23-2022 TSH Qn 2.160 {uIU/mL} Normal 0.450-4.50 0 [facility]; [facility] Work Phone: Comment on above: PATIENT WAS FASTINGP ERFORMED BY: DEACON Ledy Fljqhx1066 [address]blin [place] [id number] URINALYSIS, W/ MICRO ([id number]) Ordered By: Plastics Repairer on 09-23-2022 Appearance (U) Clear Normal Comprehens [facility]; [facility] Work Phone: Comment on above: PATIENT WAS FASTINGP ERFORMED BY: DEACON Ledybonnie WongLkpnjr4662 [address]Dublin [place] [id number] Bilirubin Ql (U) Negative Normal Comprehe nsive Internal Medicine; [facility] Work Phone: Comment on above: PATIENT WAS FASTINGP ERFORMED BY: DEACON Ledybonnie WongEkzpvj7184 [address] RoadDublin [place] [id number] Color (U) Yellow Normal [facility]; [facility] Work Phone: Comment on above: PATIENT WAS FASTINGP ERFORMED BY: DEACON Ledybonnie WongDrccfx4177 [address] RoadDublin [place] [id number] Glucose Ql (U) Negative Normal Comprehens [facility]; [facility] Work Phone: Comment on above: PATIENT WAS FASTINGP ERFORMED BY: DEACON Ledy Tyrteo7233 [address] RoadDublin [place] [id number] Hemoglobin Ql (U) Negative Normal Compreh ensive [facility] Medicine; [facility] Work Phone: Comment on above: PATIENT WAS FASTINGP ERFORMED BY: DEACON Ledybonnie WongLvmuzh9887 [address]Dublin [place] [id number] Ketones Ql (U) Negative Normal Comprehens [facility]; [facility] Work Phone: Comment on above: PATIENT WAS FASTINGP ERFORMED BY: DEACON Lablesia Bpdexs2061 [address]bl[address] [place] [id number] Leukocyte esterase Test strip Ql (U) Trace Abnormal [facility]; [facility] Work Phone: Comment on above: PATIENT WAS FASTINGP ERFORMED BY: DEACON Huerta6370 [address]Dublin [place] [id number] Microscopic observation LM Nom (Urine sed) See below: Normal [facility]; [facility] Work Phone: Comment on above: Microscopic was deshaun cated and was performed. PATIENT WAS FASTINGP ERFORMED BY: DEACON Qian Wonglin6370 [address]Dublin [place] [id number] Nitrite Ql (U) Negative Normal Comprehens [facility]; [facility] Work Phone: Comment on above: PATIENT WAS FASTINGP ERFORMED BY: DEACON Ledy Khiufp[address] [facility] [id number] pH (U) 7.5 [pH] Normal 5.0-7.5 [facility]; [facility] Work Phone: Comment on above: PATIENT WAS FASTINGP ERFORMED BY: DEACON Ledy Dvicmb8894 [address]bl[address] [place] [id number] Protein Ql (U) Negative Normal Comprehens balbina [facility]; [facility] Work Phone: Comment on above: PATIENT WAS FASTINGP ERFORMED BY: DEACON Ledy Tygmfr[address] [facility] [id number] Specific gravity (U) [Rel density] 1.012 1 Normal 1.005-1.03 0 [facility]; [facility] Work Phone: Comment on above: PATIENT WAS FASTINGP ERFORMED BY: DEACON [facility] Bbsrqj6150 [address]Dublin [place] [id number] Urobilinogen (U) [Mass/Vol] 0.2 mg/dL Normal 0.2-1.0 [facility]; [facility] Work Phone: Comment on above: PATIENT WAS FASTINGP ERFORMED BY: [facility] Mwuczp[address] [facility] [id number] MRI BRAIN WO/W IVCONon 07-03 [facility] Absolute lymphocyte countOrd ered By: Dr. Frias on 06-09-2022 Lymphocytes Auto (Unsp spec) [#/Vol] 1.15 10*3/uL 0.83-4.51 Basophil percentageOrdered B y: Dr. Frias on 06-09-2022 Basophils/100 WBC (Bld) 0.3 % 0-1 Bilirubin [Mass/Vol] 0.30 mg/dL 0.20-1.00 [facility] Comment on above: For patients on eltr ombopag therapy, use of Dimension Winger TBIL is not recommended. Chloride [Moles/Vol] 114 mmol/L 98-107 [facility] Cholesterol [Mass/Vol] 95 mg/dL <200 Comment on above: <200 mg/dL Desirable 200-240 mg/dL Borderline >240 mg/dL High Risk Eosinophils/100 WBC (Bld) 1.7 % 0-5 Glucose [Mass/Vol] 115 mg/dL 74-106 [facility] Comment on above: Fasting Glucose resu lt from 100 to 125 mg/dL suggests IMPAIRED HOMEOSTASIS per A.D.A. criteria. Neutrophils (Bld) [#/Vol] 4.1 10*3/uL 2.0-7.7 Neutrophils/100 WBC (Bld) 71.0 % 47-70 Potassium [Moles/Vol] 3.9 mmol/L 3.5-5.1 [facility] Protein [Mass/Vol] 5.8 g/dL 6.4-8.2 [facility] Sodium [Moles/Vol] 143 mmol/L 136-145 [facility] Triglyceride [Mass/Vol] 111 mg/dL <199 Comment on above: The drugs N-Acetylcy steine and Metamizole may falsely depress this assay.Serum Triglycerides Reference Interval Normal <150 mg/dL Borderline high 150 - 199 mg/dL High 200 - 499 mg/dL Very High > or = 500 mg/dL WBC (Bld) [#/Vol] 5.7 10*3/uL 4.4-11.0 [facility] Blood erythrocytes count (nu mber/volume)Ordered By: Dr. Frias on 06-09-2022 RBC (Bld) [#/Vol] 4.26 10*6/uL 4.2-5.4 [facility] Blood hemoglobin measurement (mass/volume)Ordered By: Dr. Frias on 06-09-2022 Hemoglobin (Bld) [Mass/Vol] 12.7 g/dL 12.0-15.0 Blood lymphocytes/100 leukoc ytesOrdered By: Dr. Frias on 06-09-2022 Lymphocytes/100 WBC (Bld) 20.1 % 19-41 Blood monocytes/100 leukocyt esOrdered By: Dr. Frias on 06-09-2022 Monocytes/100 WBC (Bld) 6.6 % 0-10 Blood platelet mean volumeOr dered By: Dr. Frias on 06-09-2022 Platelet mean volume (Bld) [Entitic vol] 9.5 fL 6.2-12.0 Determination of erythrocyte mean corpuscular volume (MCV)Ordered By: Dr. Frias on 06-09-2022 MCV (RBC) [Entitic vol] 92.5 fL 81-99 Hematocrit Auto (Bld) [Volum e fraction]Ordered By: Dr. Frias on 06-09-2022 Hematocrit (Bld) [Volume fraction] 39.4 % 37-47 Laboratory - Chemistry and C hemistry - challengeOrdered By: Dr. Frias on 06-09-2022 ALP [Catalytic activity/Vol] 86 U/L 45-117 ALT [Catalytic activity/Vol] 25 U/L 13-56 CO2 [Moles/Vol] 21.0 mmol/L 21.0-32.0 Globulin (S) [Mass/Vol] 2.8 g/dL 2.2-4.2 Urea nitrogen/Creatinine [Mass ratio] 9.8 mg/mg 10-20 Laboratory - Hematology and Cell countsOrdered By: Dr. Frias on 06-09-2022 Erythrocyte distribution width (RBC) [Entitic vol] 44.9 fL 35.1-43.9 Erythrocyte distribution width (RBC) [Ratio] 13.5 % 11.6-14.6 Immature granulocytes/100 WBC (Bld) 0.300 % 0.0-0.9 Comment on above: IG% - Immature Granu locytes (promyelocytes, myelocytes and metamyelocytes) > 1% indicates that a LEFT SHIFT is Present. MCH (RBC) [Entitic mass] 29.8 pg 27.0-32.0 Nucleated RBC/100 WBC (Bld) [Ratio] 0 % 0-5 MCHC Auto (RBC) [Mass/Vol]Or dered By: Dr. Frias on 06-09-2022 MCHC (RBC) [Mass/Vol] 32.2 g/dL 32-36 [facility] No Panel InformationOrdered By: Dr. Frias on 06-09-2022 Estimated Creatinine Clearance Calc 76.27 ml/min Estimated GFR (MDRD) Amer 94 mL/min >60 Comment on above: GFR Calc Estimated GFR (MDRD) Non-Af Amer 78 mL/min >60 Comment on above: Non- GFR Calc Thyroid Stimulating Hormone (TSH) 3.39 uIU/mL 0.358-3.74 Platelets bldOrdered By: Dr. Frias on 06-09-2022 Platelets (Bld) [#/Vol] 163 10*3/uL 150-450 Serum or plasma albumin leonel urement (mass/volume)Ordered By: Dr. Frias on 06-09-2022 Albumin [Mass/Vol] 3.0 g/dL 3.2-5.0 [facility] Serum or plasma albumin/glob ulin mass ratioOrdered By: Dr. Frias on 06-09-2022 Albumin/Globulin [Mass ratio] 1.1 {ratio} 0.9-2.4 Serum or plasma calcium leonel urement (mass/volume)Ordered By: Dr. Frias on 06-09-2022 Calcium [Mass/Vol] 8.3 mg/dL 8.5-10.1 [facility] Serum or plasma cholesterol in HDL measurement (mass/volume)Ordered By: Dr. Frias on 06-09-2022 Cholesterol in HDL [Mass/Vol] 53 mg/dL >40 Comment on above: The drugs N-Acetylcy steine and Metamizole may falsely depress this assay. Reference Range HDL <40 mg/dL Low HDL Cholesterol HDL >or= 60 mg/dL High HDL Cholesterol Serum or plasma cholesterol in VLDL measurement (mass/volume)Ordered By: Dr. Frias on 06-09-2022 Cholesterol in VLDL [Mass/Vol] 22 mg/dL 5-40 Serum or plasma creatinine m easurement (mass/volume)Ordered By: Dr. Frias on 06-09-2022 Creatinine [Mass/Vol] 0.82 mg/dL 0.55-1.02 [facility] Comment on above: The validity of the calculated GFR & GFRAA in patients over 70 years has not been determined. Clinical correlation is essential. Serum or plasma low density lipoprotein (LDL) cholesterol measurement (mass/volume)Ordered By: Dr. Frias on 06-09-2022 Cholesterol in LDL [Mass/Vol] 20 mg/dL 0-130 Serum or plasma urea nitroge n measurement (mass/volume)Ordered By: Dr. Frias on 06-09-2022 Urea nitrogen [Mass/Vol] 8 mg/dL 7-18 Thin prep Papanicolaou smear with manual screeningOrdered By: Dr. Frias on 06-09-2022 Thin prep Papanicolaou smear with manual screening 12 U/L 15-37 Thin prep Papanicolaou smear with manual screening 8 5-15 Whole blood hemoglobin A1c/t otal hemoglobin ratio (mass fraction)Ordered By: Dr. Frias on 06-09-2022 HbA1c (Bld) [Mass fraction] 5.2 % 3.8-5.6 Comment on above: Normal < 5.7 % Predi abetic 5.7 - 6.4 % Diabetic >or= 6.5 % Please note range changes. Absolute lymphocyte countOrd ered By: Dr. River on 06-08-2022 Lymphocytes Auto (Unsp spec) [#/Vol] 1.23 10*3/uL 0.83-4.51 Basophil percentageOrdered B y: Dr. River on 06-08-2022 Basophils/100 WBC (Bld) 0.4 % 0-1 Chloride [Moles/Vol] 109 mmol/L 98-107 [facility] Eosinophils/100 WBC (Bld) 2.1 % 0-5 Glucose [Mass/Vol] 88 mg/dL 74-106 [facility] Neutrophils (Bld) [#/Vol] 3.5 10*3/uL 2.0-7.7 Neutrophils/100 WBC (Bld) 67.1 % 47-70 Potassium [Moles/Vol] 3.2 mmol/L 3.5-5.1 [facility] Sodium [Moles/Vol] 140 mmol/L 136-145 [facility] WBC (Bld) [#/Vol] 5.2 10*3/uL 4.4-11.0 [facility] Basophil percentage 0 SEEN /hpf 0-5 [facility] Bilirubin Test strip Ql (U)O rdered By: Dr. River on 06-08-2022 Bilirubin Ql (U) Negative Negative Blood erythrocytes count (nu mber/volume)Ordered By: Dr. River on 06-08-2022 RBC (Bld) [#/Vol] 4.50 10*6/uL 4.2-5.4 [facility] Blood hemoglobin measurement (mass/volume)Ordered By: Dr. River on 06-08-2022 Hemoglobin (Bld) [Mass/Vol] 13.5 g/dL 12.0-15.0 Blood lymphocytes/100 leukoc ytesOrdered By: Dr. River on 06-08-2022 Lymphocytes/100 WBC (Bld) 23.5 % 19-41 Blood monocytes/100 leukocyt esOrdered By: Dr. River on 06-08-2022 Monocytes/100 WBC (Bld) 6.7 % 0-10 Blood platelet mean volumeOr dered By: Dr. River on 06-08-2022 Platelet mean volume (Bld) [Entitic vol] 9.0 fL 6.2-12.0 Determination of erythrocyte mean corpuscular volume (MCV)Ordered By: Dr. River on 06-08-2022 MCV (RBC) [Entitic vol] 89.8 fL 81-99 Glucose Glucometer (BldC) [M ass/Vol]Ordered By: Dr. River on 06-08-2022 Glucose [Mass/Vol] 100 mg/dL 74-106 [facility] Comment on above: MANAGEMENT OF PATIEN T CARE PER NURSING PROTOCOL Hematocrit Auto (Bld) [Volum e fraction]Ordered By: Dr. River on 06-08-2022 Hematocrit (Bld) [Volume fraction] 40.4 % 37-47 INR in Blood by Coagulation assayOrdered By: Dr. River on 06-08-2022 INR Coag (Bld) [Relative time] 1.1 {INR} Ketones Test strip Ql (U)Ord ered By: Dr. River on 06-08-2022 Ketones Ql (U) Negative Negative Laboratory - Chemistry and C hemistry - challengeOrdered By: Dr. River on 06-08-2022 CO2 [Moles/Vol] 24.0 mmol/L 21.0-32.0 Urea nitrogen/Creatinine [Mass ratio] 8.3 mg/mg 10-20 Laboratory - Chemistry and C hemistry - challengeOrdered By: Dr. Frias on 06-08-2022 Magnesium [Mass/Vol] 2.0 mg/dL 1.6-2.6 [facility] Laboratory - CoagulationOrde red By: Dr. River on 06-08-2022 aPTT Coag (Bld) [Time] 27.6 s 24.1-36.2 PT Coag (PPP) [Time] 13.5 s 11.7-14.9 [facility] Laboratory - Hematology and Cell countsOrdered By: Dr. River on 06-08-2022 Erythrocyte distribution width (RBC) [Entitic vol] 43.7 fL 35.1-43.9 Erythrocyte distribution width (RBC) [Ratio] 13.4 % 11.6-14.6 Immature granulocytes/100 WBC (Bld) 0.200 % 0.0-0.9 Comment on above: IG% - Immature Granu locytes (promyelocytes, myelocytes and metamyelocytes) > 1% indicates that a LEFT SHIFT is Present. MCH (RBC) [Entitic mass] 30.0 pg 27.0-32.0 Nucleated RBC/100 WBC (Bld) [Ratio] 0 % 0-5 MCHC Auto (RBC) [Mass/Vol]Or dered By: Dr. River on 06-08-2022 MCHC (RBC) [Mass/Vol] 33.4 g/dL 32-36 [facility] Mucus LM Ql (Urine sed)Order ed By: Dr. River on 06-08-2022 Mucus Ql (Urine sed) 0 SEEN /hpf [facility] Nitrite Test strip Ql (U)Ord ered By: Dr. River on 06-08-2022 Nitrite Ql (U) Negative Negative No Panel InformationOrdered By: Dr. River on 06-08-2022 Estimated Creatinine Clearance Calc 65.15 ml/min Estimated GFR (MDRD) Amer 78 mL/min >60 Comment on above: GFR Calc Estimated GFR (MDRD) Non-Af Amer 64 mL/min >60 Comment on above: Non- GFR Calc Troponin I High Sensitivity 6 pg/mL 3.0-54.0 Comment on above: Please Note: New Kaitlyn t Units and Gender Specific Reference Ranges. For more information see Policy Stat Procedure Winger High Sensitivity Troponin (TNIH) and attachments. Platelets bldOrdered By: Dr. River on 06-08-2022 Platelets (Bld) [#/Vol] 172 10*3/uL 150-450 Protein Test strip Ql (U)Ord ered By: Dr. River on 06-08-2022 Protein Ql (U) Negative Negative Serum or plasma calcium leonel urement (mass/volume)Ordered By: Dr. River on 06-08-2022 Calcium [Mass/Vol] 8.8 mg/dL 8.5-10.1 [facility] Serum or plasma creatinine m easurement (mass/volume)Ordered By: Dr. River on 06-08-2022 Creatinine [Mass/Vol] 0.96 mg/dL 0.55-1.02 [facility] Comment on above: The validity of the calculated GFR & GFRAA in patients over 70 years has not been determined. Clinical correlation is essential. Serum or plasma urea nitroge n measurement (mass/volume)Ordered By: Dr. River on 06-08-2022 Urea nitrogen [Mass/Vol] 8 mg/dL 7-18 Squamous epithelial cells de tection in urine sediment by light microscopyOrdered By: Dr. River on 06-08-2022 Epithelial cells.squamous LM Ql (Urine sed) 0 SEEN /hpf 5-10 Thin prep Papanicolaou smear with manual screeningOrdered By: Dr. River on 06-08-2022 Thin prep Papanicolaou smear with manual screening 7 5-15 Urine blood detectionOrdered By: Dr. River on 06-08-2022 RBC Ql (U) 10 /ul Negative RBC Ql (U) 0-5 SEEN /hpf 0-5 Urine clarityOrdered By: Dr. River on 06-08-2022 Clarity (U) Sl. Cloudy Clear Urine color determinationOrd ered By: Dr. River on 06-08-2022 Color (U) Yellow Yellow Urine glucose detectionOrder ed By: Dr. River on 06-08-2022 Glucose Ql (U) Normal mg/dl Normal Urine leukocyte esterase det ection by dipstickOrdered By: Dr. River on 06-08-2022 Leukocyte esterase Test strip Ql (U) Negative Negative Urine pHOrdered By: Dr. River o n 06-08-2022 pH (U) 7.0 [pH] 5.0 - 8.0 Urine sediment bacteria coun t by microscopy (number/high power field)Ordered By: Dr. River on 06-08-2022 Bacteria LM.HPF (Urine sed) [#/Area] 0 /[HPF] None Seen Urine specific gravity measu rementOrdered By: Dr. River on 06-08-2022 Specific gravity (U) [Rel density] 1.010 1.002-1.03 0 Urobilinogen Auto test strip Ql (U)Ordered By: Dr. River on 06-08-2022 Urobilinogen Ql (U) Normal mg/dl Normal [facility] Absolute lymphocyte countOrd ered By: Dr. Palmer on 06-02-2022 Lymphocytes Auto (Unsp spec) [#/Vol] 1.59 10*3/uL 0.83-4.51 Basophil percentageOrdered B y: Dr. Palmer on 06-02-2022 Basophils/100 WBC (Bld) 0.7 % 0-1 Chloride [Moles/Vol] 112 mmol/L 98-107 [facility] Eosinophils/100 WBC (Bld) 2.9 % 0-5 Glucose [Mass/Vol] 131 mg/dL 74-106 [facility] Comment on above: Fasting Glucose resu lt greater than or equal to 126 mg/dL suggests DIABETES MELLITUS per A.D.A. criteria. Neutrophils (Bld) [#/Vol] 2.5 10*3/uL 2.0-7.7 Neutrophils/100 WBC (Bld) 54.4 % 47-70 Potassium [Moles/Vol] 3.5 mmol/L 3.5-5.1 [facility] Sodium [Moles/Vol] 140 mmol/L 136-145 [facility] WBC (Bld) [#/Vol] 4.5 10*3/uL 4.4-11.0 [facility] Blood erythrocytes count (nu mber/volume)Ordered By: Dr. Palmer on 06-02-2022 RBC (Bld) [#/Vol] 4.42 10*6/uL 4.2-5.4 [facility] Blood hemoglobin measurement (mass/volume)Ordered By: Dr. Palmer on 06-02-2022 Hemoglobin (Bld) [Mass/Vol] 13.2 g/dL 12.0-15.0 Blood lymphocytes/100 leukoc ytesOrdered By: Dr. Palmer on 06-02-2022 Lymphocytes/100 WBC (Bld) 35.0 % 19-41 Blood monocytes/100 leukocyt esOrdered By: Dr. Palmer on 06-02-2022 Monocytes/100 WBC (Bld) 6.8 % 0-10 Blood platelet mean volumeOr dered By: Dr. Palmer on 06-02-2022 Platelet mean volume (Bld) [Entitic vol] 8.9 fL 6.2-12.0 Determination of erythrocyte mean corpuscular volume (MCV)Ordered By: Dr. Palmer on 06-02-2022 MCV (RBC) [Entitic vol] 90.5 fL 81-99 Hematocrit Auto (Bld) [Volum e fraction]Ordered By: Dr. Palmer on 06-02-2022 Hematocrit (Bld) [Volume fraction] 40.0 % 37-47 Laboratory - Chemistry and C hemistry - challengeOrdered By: Dr. Palmer on 06-02-2022 CO2 [Moles/Vol] 21.0 mmol/L 21.0-32.0 Urea nitrogen/Creatinine [Mass ratio] 13.5 mg/mg 10-20 Laboratory - Chemistry and C hemistry - challengeOrdered By: Dr. Frias on 06-02-2022 Magnesium [Mass/Vol] 2.0 mg/dL 1.6-2.6 [facility] Laboratory - Hematology and Cell countsOrdered By: Dr. Palmer on 06-02-2022 Erythrocyte distribution width (RBC) [Entitic vol] 44.7 fL 35.1-43.9 Erythrocyte distribution width (RBC) [Ratio] 13.5 % 11.6-14.6 Immature granulocytes/100 WBC (Bld) 0.200 % 0.0-0.9 Comment on above: IG% - Immature Granu locytes (promyelocytes, myelocytes and metamyelocytes) > 1% indicates that a LEFT SHIFT is Present. MCH (RBC) [Entitic mass] 29.9 pg 27.0-32.0 Nucleated RBC/100 WBC (Bld) [Ratio] 0 % 0-5 MCHC Auto (RBC) [Mass/Vol]Or dered By: Dr. Palmer on 06-02-2022 MCHC (RBC) [Mass/Vol] 33.0 g/dL 32-36 [facility] No Panel InformationOrdered By: Dr. Lake on 06-02-2022 Troponin I High Sensitivity 4 pg/mL 3.0-54.0 Comment on above: Please Note: New Kaitlyn t Units and Gender Specific Reference Ranges. For more information see Policy Stat Procedure Winger High Sensitivity Troponin (TNIH) and attachments. No Panel InformationOrdered By: Dr. Palmer on 06-02-2022 Estimated Creatinine Clearance Calc 70.27 ml/min Estimated GFR (MDRD) Amer 85 mL/min >60 Comment on above: GFR Calc Estimated GFR (MDRD) Non-Af Amer 70 mL/min >60 Comment on above: Non- GFR Calc Troponin I High Sensitivity 5 pg/mL 3.0-54.0 Comment on above: Please Note: New Kaitlyn t Units and Gender Specific Reference Ranges. For more information see Policy Stat Procedure Winger High Sensitivity Troponin (TNIH) and attachments. Platelets bldOrdered By: Dr. Palmer on 06-02-2022 Platelets (Bld) [#/Vol] 168 10*3/uL 150-450 Serum or plasma calcium leonel urement (mass/volume)Ordered By: Dr. Palmer on 06-02-2022 Calcium [Mass/Vol] 8.4 mg/dL 8.5-10.1 [facility] Serum or plasma creatinine m easurement (mass/volume)Ordered By: Dr. Palmer on 06-02-2022 Creatinine [Mass/Vol] 0.89 mg/dL 0.55-1.02 [facility] Comment on above: The validity of the calculated GFR & GFRAA in patients over 70 years has not been determined. Clinical correlation is essential. Serum or plasma urea nitroge n measurement (mass/volume)Ordered By: Dr. Palmer on 06-02-2022 Urea nitrogen [Mass/Vol] 12 mg/dL 7-18 Thin prep Papanicolaou smear with manual screeningOrdered By: Dr. Palmer on 06-02-2022 Thin prep Papanicolaou smear with manual screening 7 -15 Whole blood hemoglobin A1c/t otal hemoglobin ratio (mass fraction)Ordered By: Dr. Frias on 06-02-2022 HbA1c (Bld) [Mass fraction] 5.1 % 3.8-5.6 Comment on above: Normal < 5.7 % Predi abetic 5.7 - 6.4 % Diabetic >or= 6.5 % Please note range changes. Basic metabolic 2000 panelon 05-22-2022 Anion gap [Moles/Vol] 3.0 mmol/L Normal <=15.0 [facility] Comment on above: Performed By: #### 2 4321-2 #### [facility] [address] [place] [address] [employer] - Adelaida GUZMANIA [id number] Calcium [Mass/Vol] 8.2 mg/dL Low 8.5-10.1 [facility] Comment on above: Performed By: #### 2 4321-2 #### [facility] [address] [place] [address] [employer] - Adelaida Iyer CLIA [id number] Chloride [Moles/Vol] 114 mmol/L High 98-107 [facility] Comment on above: Performed By: #### 2 4321-2 #### [facility] [address] [place] [address] [employer] - Adelaida Iyer CLIA [id number] CO2 [Moles/Vol] 23 mmol/L Normal 21-32 [facility] Comment on above: Performed By: #### 2 4321-2 #### [facility] [address] [place] [address] [employer] - Adelaida GUZMANIA [id number] Creatinine [Mass/Vol] 0.87 mg/dL Normal 0.51-0.95 [facility] Comment on above: Performed By: #### 2 4321-2 #### [facility] [address] [place] [address] [employer] - Adelaida Iyer CLIA [id number] GFR/1.73 sq M.predicted MDRD (S/P/Bld) [Vol rate/Area] mL/min/{1.73_m2} Normal >=59 [facility] Comment on above: Performed By: #### 2 4321-2 #### [facility] [address] [place] [address] [employer] - Adelaida Iyer CLIA [id number] Glucose [Mass/Vol] 91 mg/dL Normal 74-106 [facility] Comment on above: Performed By: #### 2 4321-2 #### [facility] [address] [place] [address] [employer] - Adelaida WOLF [id number] HGFR GLOMERULAR FILTRATIO N RATE INTERPRETATION~The eGFR [...] months, with or without kidney damage.~ Normal [facility] Comment on above: Performed By: #### 2 4321-2 #### [facility] [address] [facility] [place] [address] [employer] - Adelaida WOLF [id number] Potassium [Moles/Vol] 3.9 mmol/L Normal 3.5-5.1 [facility] Comment on above: Performed By: #### 2 4321-2 #### [facility] [address] [facility] [place] [address] [employer] - [facility]yeraisha WOLF [id number] Sodium [Moles/Vol] 140 mmol/L Normal 136-145 [facility] Comment on above: Performed By: #### 2 4321-2 #### [facility] [address] [facility] [place] [address] [employer] - [facility] MARYANN [id number] Urea nitrogen [Mass/Vol] 7 mg/dL Normal 7-17 [facility] Comment on above: Performed By: #### 2 4321-2 #### [facility] [address] [place] [address] [employer] - Adelaida WOLF [id number] Hemoglobin and Hematocrit pa medina (Bld)on 05-22-2022 Hematocrit (Bld) [Volume fraction] 38.3 % Normal 37.0-47.0 [facility] Comment on above: Performed By: #### 5 7021-8 #### [facility] [address] [place] [address] [employer] - Adelaida WOLF [id number] Hemoglobin (Bld) [Mass/Vol] 12.7 g/dL Normal 12.0-16.0 [facility] Comment on above: Performed By: #### 5 7021-8 #### [facility] [address] [place] [address] [employer] - Adelaida WOLF [id number] Lipid panel with direct LDLo n 05-22-2022 Cholesterol [Mass/Vol] 189 mg/dL Normal <=200 [facility] Comment on above: Performed By: #### 5 7021-8 #### [facility] [address] [place] [address] [employer] - Adelaida WOLF [id number] Cholesterol in HDL [Mass/Vol] 52 mg/dL Normal 40-59 [facility] Comment on above: Performed By: #### 5 7021-8 #### [facility] [address] [place] [address] [employer] - Adelaida GUZMANIA [id number] Cholesterol in LDL [Mass/Vol] 107 mg/dL High 5-100 [facility] Comment on above: Performed By: #### 5 7021-8 #### [facility] [address] [place] [address] [employer] - Adelaida WOLF [id number] CHOLESTEROL/HDL 3.6 Normal [facility] Comment on above: Performed By: #### 5 7021-8 #### [facility] [address] [place] [address] [employer] - Adelaida WOLF [id number] HCHOL CHOLESTEROL INTERPRETATION Desirable <200 Borderline High 200-239 High >240 Normal [facility] Comment on above: Performed By: #### 5 7021-8 #### [facility] [address] [place] [address] [employer] - Adelaida WOLF [id number] HLDL LDL INTERPRETATION Desirable <100 Near Optimal 100-129 Borderline High 130-159 High 160-190 Very High >190 Normal [facility] Comment on above: Performed By: #### 5 7021-8 #### [facility] [address] [place] [address] [employer] - Adelaida WOLF [id number] HLIPID ATEROSCLEROSIS RISK FACTORS FOR LDL, HDL, AND CHOLESTEROL RISK FACTOR SEX LDL/HDL CHOL/HDL - 1/2 Average M 1.00 3.43 F 1.47 3.27 Average M 3.55 4.97 F 3.22 4.44 2X Average M 6.25 9.55 F 5.03 7.05 3X Average M 7.99 23.39 F 6.14 11.04 Normal [facility] Comment on above: Performed By: #### 5 7021-8 #### [facility] [address] [place] [address] [employer] - Adelaida WOLF [id number] HTRIG TRIGLYCERIDES INTERPRETATION Normal <150 Borderline High 150-199 High 200-499 Very High >500 Normal [facility] Comment on above: Performed By: #### 5 7021-8 #### [facility] [address] [place] [address] [employer] - Adelaida WOLF [id number] LDL/HDL 2.1 Normal [facility] Comment on above: Performed By: #### 5 7021-8 #### [facility] [address] [place], [place] [address], [place] [address] [employer] - Adelaida GUZMANIA [id number] Triglyceride [Mass/Vol] 155 mg/dL High <=150 [facility] Comment on above: Performed By: #### 5 7021-8 #### [facility] [address] [place] [address] [employer] - Adelaida GUZMANIA [id number] PLATELET COUNTon 05-22-2022 Platelets (Bld) [#/Vol] 171 10*3/uL Normal 130-400 [facility] Comment on above: Performed By: #### 5 7021-8 #### [facility] [address] [place] [address] [employer] - Adelaida GUZMANIA [id number] CBC W Auto Differential pane l (Bld)on 05-21-2022 Basophils (Bld) [#/Vol] 0.03 10*3/uL Normal <=0.70 [facility] Comment on above: Performed By: #### 5 7021-8 #### [facility] [address] [place] [address] [employer] - Adelaida GUZMANIA [id number] Basophils/100 WBC (Bld) 0.6 % Normal <=2.0 [facility] Comment on above: Performed By: #### 5 7021-8 #### [facility] [address] [place] [address] [employer] - Adelaida GUZMANIA [id number] Eosinophils (Bld) [#/Vol] 0.10 10*3/uL Normal <=0.70 [facility] Comment on above: Performed By: #### 5 7021-8 #### [facility] [address] [place] [address] [employer] - Adelaida GUZMANIA [id number] Eosinophils/100 WBC (Bld) 2.0 % Normal <=10.0 [facility] Comment on above: Performed By: #### 5 7021-8 #### [facility] [address] [place] [address] [employer] - Adelaida GUZMANIA [id number] Erythrocyte distribution width (RBC) [Entitic vol] 45.1 fL Normal 36.4-46.[address] [facility] Comment on above: Performed By: #### 5 7021-8 #### [facility] [address] [place] [address] [employer] - Adelaida GUZMANIA [id number] Hematocrit (Bld) [Volume fraction] 40.5 % Normal 37.0-47.0 [facility] Comment on above: Performed By: #### 5 7021-8 #### [address] [place] [address] [employer] - Adelaida GUZMANIA [id number] Hemoglobin (Bld) [Mass/Vol] 13.6 g/dL Normal 12.0-16.0 [facility] Comment on above: Performed By: #### 5 7021-8 #### [address] [place] [address] [employer] - Adelaida Iyer CLIA [id number] Immature granulocytes (Bld) [#/Vol] 0.02 10*3/uL Normal <=0.10 [facility] Comment on above: Performed By: #### 5 7021-8 #### [address] [place] [address] [employer] - Adelaida Iyer CLIA [id number] Immature granulocytes/100 WBC (Bld) 0.40 % Normal <=1.50 [facility] Comment on above: Performed By: #### 5 7021-8 #### [address] [facility] [facility] [place] [address] [employer] - Adelaida Iyer CLIA [id number] Lymphocytes (Bld) [#/Vol] 1.34 10*3/uL Normal 1.20-3.40 [facility] Comment on above: Performed By: #### 5 7021-8 #### [address] [place] [address] [employer] - Adelaida Iyer CLIA [id number] Lymphocytes/100 WBC (Bld) 26.8 % Normal 20.0-40.0 [facility] Comment on above: Performed By: #### 5 7021-8 #### [place] [address] [facility]. [place] [address] [employer] - Adelaida GUZMANIA [id number] MCH (RBC) [Entitic mass] 30.1 pg Normal 27.0-31.0 [facility] Comment on above: Performed By: #### 5 7021-8 #### [address] [place] [address] [employer] - Adelaida WOLF [id number] MCHC (RBC) [Mass/Vol] 33.6 g/dL Normal 32.0-36.0 [facility] Comment on above: Performed By: #### 5 7021-8 #### [address] [place] [address] [employer] - Adelaida GUZMANIA [id number] MCV (RBC) [Entitic vol] 89.6 fL Normal 80.0-100.0 [facility] Comment on above: Performed By: #### 5 7021-8 #### [address] [place] [address] [employer] - Adelaida GUZMANIA [id number] Monocytes (Bld) [#/Vol] 0.37 10*3/uL Normal 0.10-0.60 [facility] Comment on above: Performed By: #### 5 7021-8 #### [address] [place] [address] [employer] - Adelaida GUZMANIA [id number] Monocytes/100 WBC (Bld) 7.4 % Normal <=8.0 [facility] Comment on above: Performed By: #### 5 7021-8 #### [address] [place] [address] [employer] Worker - Adelaida GUZMANIA [id number] Neutrophils (Bld) [#/Vol] 3.14 10*3/uL Normal 1.40-6.50 [facility] Comment on above: Performed By: #### 5 7021-8 #### [facility] [address] [place] [address] [employer] - Adelaida GUZMANIA [id number] Neutrophils/100 WBC (Bld) 62.8 % Normal 50.0-70.0 [facility] Comment on above: Performed By: #### 5 7021-8 #### [address] [place] [address] [employer] - Adelaida WOLF [id number] Nucleated RBC (Bld) [#/Vol] 0.00 10*3/uL Normal <=0.10 [facility] Comment on above: Performed By: #### 5 7021-8 #### [address] [place] [address] [employer] - Adelaida WOLF [id number] Platelet mean volume (Bld) [Entitic vol] 8.8 fL Low 9.0-13.[address] [facility] Comment on above: Performed By: #### 5 7021-8 #### [place] [address] [place] [address] [employer] - Adelaida GUZMANIA [id number] Platelets (Bld) [#/Vol] 183 10*3/uL Normal 130-400 [facility] Comment on above: Performed By: #### 5 7021-8 #### [address] [place] [address] [employer] - Adelaida GUZMANIA [id number] RBC (Bld) [#/Vol] 4.52 10*6/uL Normal 4.00-6.30 [facility] Comment on above: Performed By: #### 5 7021-8 #### [place] [address] [place] [address] [employer] - Adelaida GUZMANIA [id number] WBC (Bld) [#/Vol] 5.00 10*3/uL Normal 4.80-10.80 [facility] Comment on above: Performed By: #### 5 70218 #### [facility] [address] [place] [address] [employer] - Adelaida GUZMANIA [id number] Comprehensive metabolic 2000 panelon 05-21-2022 Albumin [Mass/Vol] 3.4 g/dL Normal 3.4-5.0 [facility] Comment on above: Performed By: #### 3 040-3, 21576-9, #### [facility] [address] [place] [address] [employer] - Adelaida GUZMANIA [id number] ALP [Catalytic activity/Vol] 103 U/L Normal 50-136 [facility] Comment on above: Performed By: #### 3 040-3, 09061-7, #### [facility] [address] [place] [address] [employer] - Adelaida GUZMANIA [id number] ALT [Catalytic activity/Vol] 30 U/L Normal 14-59 [facility] Comment on above: Performed By: #### 3 040-3, 12777-3, #### [facility] [address] [place] [address] [employer] - Adelaida GUZMANIA [id number] Anion gap [Moles/Vol] 3.0 mmol/L Normal <=15.0 [facility] Comment on above: Performed By: #### 3 040-3, 58567-7, #### [facility] [address] [place] [address] [employer] - Adelaida Iyer CLIA [id number] AST [Catalytic activity/Vol] 20 U/L Normal 15-37 [facility] Comment on above: Performed By: #### 3 040-3, 40863-4, #### [facility] [address] [place] [address] [employer] - Adelaida GUZMANIA [id number] Bilirubin [Mass/Vol] 0.2 mg/dL Normal 0.2-1.0 [facility] Comment on above: Performed By: #### 3 040-3, , #### [facility] [address] [place] [address] [employer] - Adelaida GUZMANIA [id number] Calcium [Mass/Vol] 8.9 mg/dL Normal 8.5-10.1 [facility] Comment on above: Performed By: #### 3 040-3, , #### [facility] [address] [place] [address] [employer] - Adelaida GUZMANIA [id number] Chloride [Moles/Vol] 112 mmol/L High 98-107 [facility] Comment on above: Performed By: #### 3 040-3, , #### [facility] [address] [place] [address] [employer] - Adelaida GUZMANIA [id number] CO2 [Moles/Vol] 24 mmol/L Normal 21-32 [facility] Comment on above: Performed By: #### 3 040-3, , #### [facility] [address] [place] [address] [employer] - Adelaida GUZMANIA [id number] Creatinine [Mass/Vol] 0.91 mg/dL Normal 0.51-0.95 [facility] Comment on above: Performed By: #### 3 040-3, , #### [facility] [address] [place] [address] [employer] - Adelaida GUZMANIA [id number] GFR/1.73 sq M.predicted MDRD (S/P/Bld) [Vol rate/Area] mL/min/{1.73_m2} Normal >=59 [facility] Comment on above: Performed By: #### 3 040-3, , #### [facility] [address] [place] [address] [employer] - Adelaida GUZMANIA [id number] Glucose [Mass/Vol] 114 mg/dL High 74-106 [facility] Comment on above: Performed By: #### 3 040-3, , #### [facility] [address] [place] [address] [employer] - Adelaida WOLF [id number] HGFR GLOMERULAR FILTRATIO N RATE INTERPRETATION~The eGFR [...] months, with or without kidney damage.~ Normal [facility] Comment on above: Performed By: #### 3 040-3, , #### [facility] [address] [place] [address] [employer] - Adelaida WOLF [id number] Potassium [Moles/Vol] 3.7 mmol/L Normal 3.5-5.1 [facility] Comment on above: Performed By: #### 3 040-3, , #### [facility] [address] [place] [address] [employer] Worker - Aedlaida WOLF [id number] Protein [Mass/Vol] 6.5 g/dL Normal 6.4-8.2 [facility] Comment on above: Performed By: #### 3 040-3, , #### [facility] [address] [place] [address] [employer]er - Adelaida WOLF [id number] Sodium [Moles/Vol] 139 mmol/L Normal 136-145 [facility] Comment on above: Performed By: #### 3 040-3, 89561-6, #### [facility] [address] [place] [address] [employer]er - Adelaida WOLF [id number] Urea nitrogen [Mass/Vol] 9 mg/dL Normal 7-17 [facility] Comment on above: Performed By: #### 3 040-3, 87288-0, #### [facility] [address] [place] [address] [employer]er - Adelaida WOLF [id number] LIPASEon 05-21-2022 Lipase [Catalytic activity/Vol] 133 U/L Normal 73-393 [facility] Comment on above: Performed By: #### 3 040-3, , #### [facility] [address] [place] [address] [employer]er - Adelaida WOLF [id number] MAGNESIUMon 05-21-2022 Magnesium [Mass/Vol] 2.3 mg/dL Normal 1.6-2.6 [facility] Comment on above: Performed By: #### 3 040-3, , #### [facility] [address] [place] [address] [employer]er - Adelaida WOLF [id number] PT and aPTT panel Coag (PPP) on 05-21-2022 aPTT Coag (PPP) [Time] 24.6 s Normal 23.5-31.3 [facility] Comment on above: Performed By: #### 5 7021-8 #### [facility] [address] [place] [address] [employer] Worker - Adelaida WOLF [id number] HPTINR INR REFERENCE RANGE INTERPRETATION Patients on Coumadin 2.0 - 3.0 Patients with mechanical heart valves 2.5 - 3.5 Normal [facility] Comment on above: Performed By: #### 5 7021-8 #### [facility] [address] [place] [address] [employer] Worker - Adelaida WOLF [id number] INR Coag (PPP) [Relative time] 1.0 {INR} Normal 0.8-1.1 [facility] Comment on above: Performed By: #### 5 7021-8 #### [facility] [address] [place] [address] [employer] Worker - Adelaida WOLF [id number] PT Coag (PPP) [Time] 10.8 s Normal 9.3-11.5 [facility] Comment on above: Performed By: #### 5 7021-8 #### [address] [place] [address] [employer] Worker - Adelaida WOLF [id number] TROPONIN HIGH SENSITIVITYon 05-21-2022 TNIH 4.80 pg/mL Normal <=59.00 [facility] Comment on above: Result Comment: <59 pg/mL is considered a negative result. Performed By: #### T ROP2 #### [address] [place] [address] [employer] Worker - Adelaida WOLF [id number] Absolute lymphocyte countOrd ered By: Dr. Cool on 03-25-2022 Lymphocytes Auto (Unsp spec) [#/Vol] 1.18 10*3/uL 0.83-4.51 Basophil percentageOrdered B y: Dr. Cool on 03-25-2022 Basophil percentage 0 SEEN /hpf 0-5 [facility] Basophils/100 WBC (Bld) 0.6 % 0-1 Bilirubin [Mass/Vol] 0.30 mg/dL 0.20-1.00 [facility] Comment on above: For patients on eltr ombopag therapy, use of Dimension Winger TBIL is not recommended. Chloride [Moles/Vol] 110 mmol/L 98-107 [facility] Cholesterol [Mass/Vol] 244 mg/dL <200 Comment on above: <200 mg/dL Desirable 200-240 mg/dL Borderline >240 mg/dL High Risk Eosinophils/100 WBC (Bld) 2.8 % 0-5 Glucose [Mass/Vol] 100 mg/dL 74-106 [facility] Comment on above: Fasting Glucose resu lt from 100 to 125 mg/dL suggests IMPAIRED HOMEOSTASIS per A.D.A. criteria. Neutrophils (Bld) [#/Vol] 3.3 10*3/uL 2.0-7.7 Neutrophils/100 WBC (Bld) 65.6 % 47-70 Potassium [Moles/Vol] 4.0 mmol/L 3.5-5.1 [facility] Protein [Mass/Vol] 6.8 g/dL 6.4-8.2 [facility] Sodium [Moles/Vol] 140 mmol/L 136-145 [facility] Triglyceride [Mass/Vol] 122 mg/dL <199 Comment on above: The drugs N-Acetylcy steine and Metamizole may falsely depress this assay.Serum Triglycerides Reference Interval Normal <150 mg/dL Borderline high 150 - 199 mg/dL High 200 - 499 mg/dL Very High > or = 500 mg/dL WBC (Bld) [#/Vol] 5.1 10*3/uL 4.4-11.0 [facility] Bilirubin Test strip Ql (U)O rdered By: Dr. Cool on 03-25-2022 Bilirubin Ql (U) Negative Negative Blood erythrocytes count (nu mber/volume)Ordered By: Dr. Cool on 03-25-2022 RBC (Bld) [#/Vol] 4.95 10*6/uL 4.2-5.4 [facility] Blood hemoglobin measurement (mass/volume)Ordered By: Dr. Cool on 03-25-2022 Hemoglobin (Bld) [Mass/Vol] 14.6 g/dL 12.0-15.0 Blood lymphocytes/100 leukoc ytesOrdered By: Dr. Cool on 03-25-2022 Lymphocytes/100 WBC (Bld) 23.3 % 19-41 Blood monocytes/100 leukocyt esOrdered By: Dr. Cool on 03-25-2022 Monocytes/100 WBC (Bld) 7.3 % 0-10 Blood platelet mean volumeOr dered By: Dr. Cool on 03-25-2022 Platelet mean volume (Bld) [Entitic vol] 8.8 fL 6.2-12.0 Determination of erythrocyte mean corpuscular volume (MCV)Ordered By: Dr. Cool on 03-25-2022 MCV (RBC) [Entitic vol] 93.9 fL 81-99 Hematocrit Auto (Bld) [Volum e fraction]Ordered By: Dr. Cool on 03-25-2022 Hematocrit (Bld) [Volume fraction] 46.5 % 37-47 Ketones Test strip Ql (U)Ord ered By: Dr. Cool on 03-25-2022 Ketones Ql (U) Negative Negative Laboratory - Chemistry and C hemistry - challengeOrdered By: Dr. Cool on 03-25-2022 ALP [Catalytic activity/Vol] 94 U/L 45-117 ALT [Catalytic activity/Vol] 38 U/L 13-56 CO2 [Moles/Vol] 24.0 mmol/L 21.0-32.0 Globulin (S) [Mass/Vol] 3.1 g/dL 2.2-4.2 Urea nitrogen/Creatinine [Mass ratio] 8.8 mg/mg 10-20 Laboratory - Hematology and Cell countsOrdered By: Dr. Cool on 03-25-2022 Erythrocyte distribution width (RBC) [Entitic vol] 46.6 fL 35.1-43.9 Erythrocyte distribution width (RBC) [Ratio] 13.6 % 11.6-14.6 Immature granulocytes/100 WBC (Bld) 0.400 % 0.0-0.9 Comment on above: IG% - Immature Granu locytes (promyelocytes, myelocytes and metamyelocytes) > 1% indicates that a LEFT SHIFT is Present. MCH (RBC) [Entitic mass] 29.5 pg 27.0-32.0 Nucleated RBC/100 WBC (Bld) [Ratio] 0 % 0-5 MCHC Auto (RBC) [Mass/Vol]Or dered By: Dr. Cool on 03-25-2022 MCHC (RBC) [Mass/Vol] 31.4 g/dL 32-36 [facility] Mucus LM Ql (Urine sed)Order ed By: Dr. Cool on 03-25-2022 Mucus Ql (Urine sed) 0 SEEN /hpf [facility] Nitrite Test strip Ql (U)Ord ered By: Dr. Cool on 03-25-2022 Nitrite Ql (U) Negative Negative No Panel InformationOrdered By: Dr. Cool on 03-25-2022 Estimated GFR (MDRD) Amer 64 mL/min >60 Comment on above: GFR Calc Estimated GFR (MDRD) Non-Af Amer 53 mL/min >60 Comment on above: Non- GFR Calc Thyroid Stimulating Hormone (TSH) 1.95 uIU/mL 0.358-3.74 Urine Microalbumin/Creatini ne Ratio 8.8 mg/g CRE <30 Platelets bldOrdered By: Dr. Cool on 03-25-2022 Platelets (Bld) [#/Vol] 215 10*3/uL 150-450 Protein Test strip Ql (U)Ord ered By: Dr. Cool on 03-25-2022 Protein Ql (U) Negative Negative Serum or plasma albumin leonel urement (mass/volume)Ordered By: Dr. Cool on 03-25-2022 Albumin [Mass/Vol] 3.7 g/dL 3.2-5.0 [facility] Serum or plasma albumin/glob ulin mass ratioOrdered By: Dr. Cool on 03-25-2022 Albumin/Globulin [Mass ratio] 1.2 {ratio} 0.9-2.4 Serum or plasma calcium leonel urement (mass/volume)Ordered By: Dr. Cool on 03-25-2022 Calcium [Mass/Vol] 8.7 mg/dL 8.5-10.1 [facility] Serum or plasma cholesterol in HDL measurement (mass/volume)Ordered By: Dr. Cool on 03-25-2022 Cholesterol in HDL [Mass/Vol] 69 mg/dL >40 Comment on above: The drugs N-Acetylcy steine and Metamizole may falsely depress this assay. Reference Range HDL <40 mg/dL Low HDL Cholesterol HDL >or= 60 mg/dL High HDL Cholesterol Serum or plasma cholesterol in VLDL measurement (mass/volume)Ordered By: Dr. Cool on 03-25-2022 Cholesterol in VLDL [Mass/Vol] 24 mg/dL 5-40 Serum or plasma creatinine m easurement (mass/volume)Ordered By: Dr. Cool on 03-25-2022 Creatinine [Mass/Vol] 1.13 mg/dL 0.55-1.02 [facility] Comment on above: The validity of the calculated GFR & GFRAA in patients over 70 years has not been determined. Clinical correlation is essential. Serum or plasma low density lipoprotein (LDL) cholesterol measurement (mass/volume)Ordered By: Dr. Cool on 03-25-2022 Cholesterol in LDL [Mass/Vol] 151 mg/dL 0-130 Serum or plasma urea nitroge n measurement (mass/volume)Ordered By: Dr. Cool on 03-25-2022 Urea nitrogen [Mass/Vol] 10 mg/dL 7-18 Squamous epithelial cells de tection in urine sediment by light microscopyOrdered By: Dr. Cool on 03-25-2022 Epithelial cells.squamous LM Ql (Urine sed) 0 SEEN /hpf 5-10 Thin prep Papanicolaou smear with manual screeningOrdered By: Dr. Cool on 03-25-2022 Thin prep Papanicolaou smear with manual screening 22 U/L 15-37 Thin prep Papanicolaou smear with manual screening 6 5-15 Thin prep Papanicolaou smear with manual screening 5.8 mg/L NO RANGE EST. Urine blood detectionOrdered By: Dr. Cool on 03-25-2022 RBC Ql (U) Negative Negative RBC Ql (U) 0 SEEN /hpf 0-5 Urine clarityOrdered By: Dr. Cool on 03-25-2022 Clarity (U) Sl. Cloudy Clear Urine color determinationOrd ered By: Dr. Cool on 03-25-2022 Color (U) Yellow Yellow Urine creatinine measurement (mass/volume)Ordered By: Dr. Cool on 03-25-2022 Creatinine (U) [Mass/Vol] 65.80 mg/dL NO RANGE EST. Urine glucose detectionOrder ed By: Dr. Cool on 03-25-2022 Glucose Ql (U) Normal mg/dl Normal Urine leukocyte esterase det ection by dipstickOrdered By: Dr. Cool on 03-25-2022 Leukocyte esterase Test strip Ql (U) Negative Negative Urine pHOrdered By: Dr. Gutiérrez on on 03-25-2022 pH (U) 7.0 [pH] 5.0 - 8.0 Urine sediment bacteria coun t by microscopy (number/high power field)Ordered By: Dr. Cool on 03-25-2022 Bacteria LM.HPF (Urine sed) [#/Area] 0 /[HPF] None Seen Urine specific gravity measu rementOrdered By: Dr. Cool on 03-25-2022 Specific gravity (U) [Rel density] 1.010 1.002-1.03 0 Urobilinogen Auto test strip Ql (U)Ordered By: Dr. Cool on 03-25-2022 Urobilinogen Ql (U) Normal mg/dl Normal [facility] CARBAMAZEPINEon 11-29-2021 carBAMazepine [Mass/Vol] 11.7 ug/mL Normal 4.0-12.0 [facility] Comment on above: Performed By: #### 5 7021-8 #### [facility] [address] [place], [place] [address] [address] [employer] - Adelaida WOLF [id number] CBC panel Auto (Bld)on 11-29 Erythrocyte distribution width (RBC) [Entitic vol] 44.8 fL Normal 36.4-46.[address] [facility] Comment on above: Performed By: #### 5 8410-2 #### [facility] [address] [place] [address] [employer] - Adelaida WOLF [id number] Hematocrit (Bld) [Volume fraction] 42.4 % Normal 37.0-47.0 [facility] Comment on above: Performed By: #### 5 8410-2 #### [facility] [address] [place] [address] [employer] - Adelaida WLOF [id number] Hemoglobin (Bld) [Mass/Vol] 13.9 g/dL Normal 12.0-16.0 [facility] Comment on above: Performed By: #### 5 8410-2 #### [facility] [address] [facility] [place] [address] [employer] - Adelaida WOLF [id number] MCH (RBC) [Entitic mass] 29.8 pg Normal 27.0-31.0 [facility] Comment on above: Performed By: #### 5 8410-2 #### [address] [place] [address] [employer] - Adelaida WOLF [id number] MCHC (RBC) [Mass/Vol] 32.8 g/dL Normal 32.0-36.0 [facility] Comment on above: Performed By: #### 5 8410-2 #### [place] [address] [place] [address] [employer] - Adelaida WOLF [id number] MCV (RBC) [Entitic vol] 90.8 fL Normal 80.0-100.0 [facility] Comment on above: Performed By: #### 5 8410-2 #### [address] [place] [address] [employer] - Adelaida GUZMANIA [id number] Platelet mean volume (Bld) [Entitic vol] 9.3 fL Normal 9.0-13.[address] [facility] Comment on above: Performed By: #### 5 8410-2 #### [address] [place] [address] [employer] - Adelaida GUZMANIA [id number] Platelets (Bld) [#/Vol] 169 10*3/uL Normal 130-400 [facility] Comment on above: Performed By: #### 5 8410-2 #### [address] [place] [address] [employer] - Adelaida WOLF [id number] RBC (Bld) [#/Vol] 4.67 10*6/uL Normal 4.00-6.30 [facility] Comment on above: Performed By: #### 5 8410-2 #### [facility] [address] [place] [address] [employer] - Adelaida WOLF [id number] WBC (Bld) [#/Vol] 4.80 10*3/uL Normal 4.80-10.80 [facility] Comment on above: Performed By: #### 5 8410-2 #### [facility] [address] [place] [address] [employer] - Adelaida WOLF [id number] Comprehensive metabolic 2000 panelon 11-29-2021 Albumin [Mass/Vol] 3.5 g/dL Normal 3.4-5.0 [facility] Comment on above: Performed By: #### 2 4323-8 #### [facility] [address] [place] [address] [employer] - Adelaida GUZMANIA [id number] ALP [Catalytic activity/Vol] 99 U/L Normal 50-136 [facility] Comment on above: Performed By: #### 2 4323-8 #### [facility] [address] [place] [address] [employer] - Adelaida GUZMANIA [id number] ALT [Catalytic activity/Vol] 29 U/L Normal 14-59 [facility] Comment on above: Performed By: #### 2 4323-8 #### [facility] [address] [place] [address] [employer] - Adelaida GUZMANIA [id number] Anion gap [Moles/Vol] 3.0 mmol/L Normal <=15.0 [facility] Comment on above: Performed By: #### 2 4323-8 #### [facility] [address] [place] [address] [employer] - Adelaida GUZMANIA [id number] AST [Catalytic activity/Vol] 19 U/L Normal 15-37 [facility] Comment on above: Performed By: #### 2 4323-8 #### [facility] [address] [place] [address] [employer] - Adelaida GUZMANIA [id number] Bilirubin [Mass/Vol] 0.3 mg/dL Normal 0.2-1.0 [facility] Comment on above: Performed By: #### 2 4323-8 #### [facility] [address] [place] [address] [employer] - Adelaida GUZMANIA [id number] Calcium [Mass/Vol] 8.4 mg/dL Low 8.5-10.1 [facility] Comment on above: Performed By: #### 2 4323-8 #### [facility] [address] [place] [address] [employer] - Adelaida GUZMANIA [id number] Chloride [Moles/Vol] 114 mmol/L High 98-107 [facility] Comment on above: Performed By: #### 2 4323-8 #### [facility] [address] [place] [address] [employer] - Adelaida GUZMANIA [id number] CO2 [Moles/Vol] 24 mmol/L Normal 21-32 [facility] Comment on above: Performed By: #### 2 4323-8 #### [facility] [address] [place] [address] [employer] - Adelaida GUZMANIA [id number] Creatinine [Mass/Vol] 0.95 mg/dL Normal 0.51-0.95 [facility] Comment on above: Performed By: #### 2 4323-8 #### [facility] [address] [place] [address] [employer] - Adelaida GUZMANIA [id number] GFR/1.73 sq M.predicted MDRD (S/P/Bld) [Vol rate/Area] mL/min/{1.73_m2} Normal >=59 [facility] Comment on above: Performed By: #### 2 4323-8 #### [facility] [address] [place] [address] [employer] - Adelaida WOLF [id number] Glucose [Mass/Vol] 94 mg/dL Normal 74-106 [facility] Comment on above: Performed By: #### 2 4323-8 #### [facility] [address] [place] [address] [employer] - Adelaida WOLF [id number] HGFR GLOMERULAR FILTRATIO N RATE INTERPRETATION~The eGFR [...] months, with or without kidney damage.~ Normal [facility] Comment on above: Performed By: #### 2 4323-8 #### [facility] [address] [place] [address] [employer] - Adelaida WOLF [id number] Potassium [Moles/Vol] 4.1 mmol/L Normal 3.5-5.1 [facility] Comment on above: Performed By: #### 2 4323-8 #### [facility] [address] [place] [address] [employer] - Adelaida WOLF [id number] Protein [Mass/Vol] 6.2 g/dL Low 6.4-8.2 [facility] Comment on above: Performed By: #### 2 4323-8 #### [facility] [address] [place] [address] [employer] - Adelaida WOLF [id number] Sodium [Moles/Vol] 141 mmol/L Normal 136-145 [facility] Comment on above: Performed By: #### 2 4323-8 #### [facility] [address] [place] [address] [employer] - Adelaida WOLF [id number] Urea nitrogen [Mass/Vol] 10 mg/dL Normal 7-17 [facility] Comment on above: Performed By: #### 2 4323-8 #### [facility] [address] [place] [address] [employer] - Adelaida WOLF [id number] carBAMazepine [Mass/Vol]on 0 11-29-2021 [facility] CARBAMAZEPINE/TEGRET OL [...] recommended therapeutic range of 4-8 ug/mL. Normal [facility] Comment on above: Performed By: #### 5 7021-8 #### [facility] [address] [place] [address] [employer] - Adelaida WOLF [id number] Lipid panel with direct LDLo n 10-30-2021 Cholesterol [Mass/Vol] 208 mg/dL High <=200 [facility] Comment on above: Performed By: #### 5 7698-3 #### [facility] [address] [place] [address] [employer] - Adelaida WOLF [id number] Cholesterol in HDL [Mass/Vol] 61 mg/dL High 40-59 [facility] Comment on above: Performed By: #### 5 7698-3 #### [facility] [address] [place] [address] [employer] - Adelaida WOLF [id number] Cholesterol in LDL [Mass/Vol] 118 mg/dL High 5-100 [facility] Comment on above: Performed By: #### 5 7698-3 #### [facility] [address] [facility] [address] [place] [address] [employer] - Adelaida WOLF [id number] CHOLESTEROL/HDL 3.4 Normal [facility] Comment on above: Performed By: #### 5 7698-3 #### [place] [address] [facility] [place] [address] [employer] - Adelaida WOLF [id number] HCHOL CHOLESTEROL INTERPRETATION Desirable <200 Borderline High 200-239 High >240 Normal [facility] Comment on above: Performed By: #### 5 7698-3 #### [address] [place] [address] [employer] - Adelaida WOLF [id number] HLDL LDL INTERPRETATION Desirable <100 Near Optimal 100-129 Borderline High 130-159 High 160-190 Very High >190 Normal [facility] Comment on above: Performed By: #### 5 7698-3 #### [address] [place] [address] [employer] - Adelaida WOLF [id number] HLIPID ATEROSCLEROSIS RISK FACTORS FOR LDL, HDL, AND CHOLESTEROL RISK FACTOR SEX LDL/HDL CHOL/HDL - 1/2 Average M 1.00 3.43 F 1.47 3.27 Average M 3.55 4.97 F 3.22 4.44 2X Average M 6.25 9.55 F 5.03 7.05 3X Average M 7.99 23.39 F 6.14 11.04 Normal [facility] Comment on above: Performed By: #### 5 7698-3 #### [address] [place] [address] [employer] - Adelaida WOLF [id number] HTRIG TRIGLYCERIDES INTERPRETATION Normal <150 Borderline High 150-199 High 200-499 Very High >500 Normal [facility] Comment on above: Performed By: #### 5 7698-3 #### [facility] [address] [address] [place], [place] [address] Riprap Worker - Adelaida WOLF [id number] LDL/HDL 1.9 Normal [facility] Comment on above: Performed By: #### 5 7698-3 #### [facility] [address] [place], [place] [address] [employer]ip[employer] Worker - Adelaida WOLF [id number] Triglyceride [Mass/Vol] 146 mg/dL Normal <=150 [facility] Comment on above: Performed By: #### 5 7698-3 #### [facility] [address] [facility] [place], [place] [address] [employer]ip[employer] Worker - Adelaida WOLF [id number] MAGNESIUM ([id number])Ordered By: Plastics Repairer on 10-10-2021 Magnesium [Mass/Vol] 2.2 mg/dL Normal 1.6-2.3 [facility] rehensive Internal Medicine; [facility] Work Phone: Comment on above: PATIENT NOT FASTINGP ERFORMED BY: DEACON [employer]combonnie HuertaRglvjw7551 [facility] [id number] POTASSIUM SERUM ([id number])Order ed By: Plastics Repairer on 10-10-2021 Potassium [Moles/Vol] 3.9 mmol/L Normal 3.5-5.2 [facility] prehensive Internal Medicine; [facility] Work Phone: Comment on above: PATIENT NOT FASTINGP ERFORMED BY: DEAOCN [employer]6370 [facility] HospitalRent The DressDuke Raleigh Hospital [id number] Absolute lymphocyte counton 10-08-2021 Lymphocytes Auto (Unsp spec) [#/Vol] 1.31 10*3/uL 0.83-4.51 Work Phone: Basophil percentageon 2021 Basophils/100 WBC (Bld) 0.4 % 0-1 Work Phone: Chloride [Moles/Vol] 111 mmol/L 98-107 [facility] Work Phone: Eosinophils/100 WBC (Bld) 1.3 % 0-5 Work Phone: Glucose [Mass/Vol] 114 mg/dL 74-106 [facility] [place] [facility] Work Phone: Comment on above: Fasting Glucose resu lt from 100 to 125 mg/dL suggests IMPAIRED HOMEOSTASIS per A.D.A. criteria. Neutrophils (Bld) [#/Vol] 3.6 10*3/uL 2.0-7.7 Work Phone: Neutrophils/100 WBC (Bld) 66.5 % 47-70 Work Phone: Potassium [Moles/Vol] 3.2 mmol/L 3.5-5.1 [facility] Work Phone: Sodium [Moles/Vol] 142 mmol/L 136-145 [facility] [place] [facility] Work Phone: WBC (Bld) [#/Vol] 5.3 10*3/uL 4.4-11.0 [facility] [place] [facility] Work Phone: Blood erythrocytes count (nu mber/volume)on 10-08-2021 RBC (Bld) [#/Vol] 4.50 10*6/uL 4.2-5.4 [facility] Work Phone: Blood hemoglobin measurement (mass/volume)on 10-08-2021 Hemoglobin (Bld) [Mass/Vol] 13.4 g/dL 12.0-15.0 Work Phone: Blood lymphocytes/100 leukoc yteson 10-08-2021 Lymphocytes/100 WBC (Bld) 24.5 % 19-41 Work Phone: Blood monocytes/100 leukocyt eson 10-08-2021 Monocytes/100 WBC (Bld) 6.7 % 0-10 Work Phone: Blood platelet mean volumeon 10-08-2021 Platelet mean volume (Bld) [Entitic vol] 9.4 fL 6.2-12.0 Work Phone: Determination of erythrocyte mean corpuscular volume (MCV)on 10-08-2021 MCV (RBC) [Entitic vol] 92.2 fL 81-99 Work Phone: Hematocrit Auto (Bld) [Volum e fraction]on 10-08-2021 Hematocrit (Bld) [Volume fraction] 41.5 % 37-47 Work Phone: Laboratory - Chemistry and C hemistry - challengeon 10-08-2021 CO2 [Moles/Vol] 24.0 mmol/L 21.0-32.0 Work Phone: Urea nitrogen/Creatinine [Mass ratio] 7.6 mg/mg 10-20 Work Phone: Laboratory - Hematology and Cell countson 10-08-2021 Erythrocyte distribution width (RBC) [Entitic vol] 47.3 fL 35.1-43.9 Work Phone: Erythrocyte distribution width (RBC) [Ratio] 13.9 % 11.6-14.6 Work Phone: Immature granulocytes/100 WBC (Bld) 0.600 % 0.0-0.9 Work Phone: Comment on above: IG% - Immature Granu locytes (promyelocytes, myelocytes and metamyelocytes) > 1% indicates that a LEFT SHIFT is Present. MCH (RBC) [Entitic mass] 29.8 pg 27.0-32.0 Work Phone: Nucleated RBC/100 WBC (Bld) [Ratio] 0 % 0-5 Work Phone: MCHC Auto (RBC) [Mass/Vol]on 10-08-2021 MCHC (RBC) [Mass/Vol] 32.3 g/dL 32-36 [facility] Work Phone: No Panel Informationon 10-08 Troponin I High Sensitivity 3 pg/mL 3.0-54.0 Work Phone: Comment on above: Please Note: New Kaitlyn t Units and Gender Specific Reference Ranges. For more information see Policy Stat Procedure Winger High Sensitivity Troponin (TNIH) and attachments. Estimated Creatinine Clearance Calc 59.56 ml/min Work Phone: Estimated GFR (MDRD) Amer 70 mL/min >60 Work Phone: Comment on above: GFR Calc Estimated GFR (MDRD) Non-Af Amer 58 mL/min >60 Work Phone: Comment on above: Non- GFR Calc Platelets bldon 10-08-2021 Platelets (Bld) [#/Vol] 195 10*3/uL 150-450 Work Phone: Serum or plasma calcium leonel urement (mass/volume)on 10-08-2021 Calcium [Mass/Vol] 8.5 mg/dL 8.5-10.1 [facility] [place] [facility] Work Phone: Serum or plasma creatinine m easurement (mass/volume)on 10-08-2021 Creatinine [Mass/Vol] 1.05 mg/dL 0.55-1.02 [facility] Work Phone: Comment on above: The validity of the calculated GFR & GFRAA in patients over 70 years has not been determined. Clinical correlation is essential. Serum or plasma urea nitroge n measurement (mass/volume)on 10-08-2021 Urea nitrogen [Mass/Vol] 8 mg/dL 7-18 Work Phone: Thin prep Papanicolaou smear with manual screeningon 10-08-2021 Thin prep Papanicolaou smear with manual screening 7 5-15 Work Phone: CBC with auto diff ([id number])Or dered By: Plastics Repairer on 09-19-2021 Basophils (Bld) [#/Vol] 0.0 10*3/uL Normal 0.0-0.2 [facility]; [facility] Work Phone: Comment on above: PATIENT NOT FASTINGP ERFORMED BY: DAECON [facility] Cbnjds2447 [address] RoadDublin [place] [id number] Basophils/100 WBC (Bld) 1 % Normal [facility]; [facility] Work Phone: Comment on above: PATIENT NOT FASTINGP ERFORMED BY: CB [facility] Qjpzdh1394 [address] RoadDublin [place] [id number] Eosinophils (Bld) [#/Vol] 0.1 10*3/uL Normal 0.0-0.4 [facility]; [facility] Work Phone: Comment on above: PATIENT NOT FASTINGP ERFORMED BY: DEACON Labcobonnie HuertaAsyyjm0686 [address] RoadDublin [place] [id number] Eosinophils/100 WBC (Bld) 2 % Normal [facility]; [facility] Work Phone: Comment on above: PATIENT NOT FASTINGP ERFORMED BY: DEACON [facility] Ploiiw2055 [address] RoadDublin [place] [id number] Erythrocyte distribution width (RBC) [Ratio] 13.5 % Normal 11.7-15.4 [facility]; [facility] Work Phone: Comment on above: PATIENT NOT FASTINGP ERFORMED BY: DEACON [facility] Wdfjcx6398 [address] RoadDublin [place] [id number] Hematocrit (Bld) [Volume fraction] 43.8 % Normal 34.0-46.6 [facility]; [facility] Work Phone: Comment on above: PATIENT NOT FASTINGP ERFORMED BY: CB [facility] Ugknbp2759 [address] RoadDublin [place] [id number] Hemoglobin (Bld) [Mass/Vol] 14.2 g/dL Normal 11.1-15.9 [facility]; [facility] Work Phone: Comment on above: PATIENT NOT FASTINGP ERFORMED BY: CB [facility] Uifnjn2021 [address]Dublin [place] [id number] Immature granulocytes (Bld) [#/Vol] 0.0 10*3/uL Normal 0.0-0.1 [facility]; [facility] Work Phone: Comment on above: PATIENT NOT FASTINGP ERFORMED BY: DEACON Labalbert uHerta6370 [address] RoadDublin [place] [id number] Immature granulocytes/100 WBC (Bld) 1 % Normal [facility]; [facility] Work Phone: Comment on above: PATIENT NOT FASTINGP ERFORMED BY: CB [facility] Hfmapm3882 [address]o RoadCone Health Medcenter High Pointin [place] [id number] Lymphocytes (Bld) [#/Vol] 1.6 10*3/uL Normal 0.7-3.1 [facility]; [facility] Work Phone: Comment on above: PATIENT NOT FASTINGP ERFORMED BY: DEACON Labcobonnie HuertaQjnjry9450 Sal[address]o RoadCentral Carolina Hospital [id number] Lymphocytes/100 WBC (Bld) 26 % Normal [facility]; [facility] Work Phone: Comment on above: PATIENT NOT FASTINGP ERFORMED BY: DEACON Labcobonnie HuertaHxewwl[address] [facility] [id number] MCH (RBC) [Entitic mass] 29.0 pg Normal 26.6-33.0 [facility] Internal Medicine; [facility] Work Phone: Comment on above: PATIENT NOT FASTINGP ERFORMED BY: DEACON [facility] Bmwdoc[address] [facility] [id number] MCHC (RBC) [Mass/Vol] 32.4 g/dL Normal 31.5-35.7 [facility] prehensive Internal Medicine; [facility] Work Phone: Comment on above: PATIENT NOT FASTINGP ERFORMED BY: CB [facility] Zfhumw[address] [facility] Hospitalblin [place] [id number] MCV (RBC) [Entitic vol] 89 fL Normal 79-97 [facility]; [facility] Work Phone: Comment on above: PATIENT NOT FASTINGP ERFORMED BY: CB [facility] Ugblnv7941 [address] [facility]in [place] [id number] Monocytes (Bld) [#/Vol] 0.5 10*3/uL Normal 0.1-0.9 [facility]; [facility] Work Phone: Comment on above: PATIENT NOT FASTINGP ERFORMED BY: DEACON Huerta6370 [address]Dublin [place] [id number] Monocytes/100 WBC (Bld) 8 % Normal [facility]; [facility] Work Phone: Comment on above: PATIENT NOT FASTINGP ERFORMED BY: CB [facility] Ielnvr5119 [address] RoadDublin [place] [id number] Neutrophils (Bld) [#/Vol] 3.9 10*3/uL Normal 1.4-7.0 [facility]; [facility] Work Phone: Comment on above: PATIENT NOT FASTINGP ERFORMED BY: DEACON Labcobonnie HuertaZwhqoo6040 [address] RoadDublin [place] [id number] Neutrophils/100 WBC (Bld) 62 % Normal [facility]; [facility] Work Phone: Comment on above: PATIENT NOT FASTINGP ERFORMED BY: DEACON Labcobonnie WongYadnnm0891 [address] RoadDublin [place] [id number] Platelets (Bld) [#/Vol] 197 10*3/uL Normal 150-450 [facility]; [facility] Work Phone: Comment on above: PATIENT NOT FASTINGP ERFORMED BY: CB [facility] Rgferx9921 [address] RoadDublin [place] [id number] RBC (Bld) [#/Vol] 4.90 10*6/uL Normal 3.77-5.28 Compr ehensive Internal Medicine; [facility] Work Phone: Comment on above: PATIENT NOT FASTINGP ERFORMED BY: CB [facility] Pfyacs2618 [address] RoadDublin [place] [id number] WBC (Bld) [#/Vol] 6.1 10*3/uL Normal 3.4-10.8 Compre hensive Internal Medicine; [facility] Work Phone: Comment on above: PATIENT NOT FASTINGP ERFORMED BY: CB [facility] Hzuois8902 [address] RoadDublin [place] [id number] FERRITIN ([id number])Ordered By: Plastics Repairer on 09-19-2021 Ferritin [Mass/Vol] 15 ng/mL Normal 15-150 Compr [facility] Internal Medicine; [facility] Work Phone: Comment on above: PATIENT NOT FASTINGP ERFORMED BY: DEACON [facility] Lqpmhw8566 [address] RoadDublin [place] [id number] HGB A1C ([id number])Ordered By: S ystem [employer] Professor on 09-19-2021 HbA1c (Bld) [Mass fraction] 5.2 % Normal 4.8-5.6 [facility]; [facility] Work Phone: Comment on above: . Prediabetes: 5.7 - 6.4 Diabetes: >6.4 Glycemic control for adults with diabetes: <7.0 PATIENT NOT FASTINGP ERFORMED BY: DEACON [facility] Dvwoot4738 [address] RoadDuin [place] [id number] IRON ([id number])Ordered By: Syst em [employer] Management Professor on 09-19-2021 Iron [Mass/Vol] 70 ug/dL Normal 27-159 [facility]; [facility] Work Phone: Comment on above: PATIENT NOT FASTINGP ERFORMED BY: DEACON [facility] Qgsyqi6[address] [facility] HospitalDublin [place] [id number] METABOLIC PANEL, COMPREHENSI VE ([id number])Ordered By: Plastics Repairer on 09-19-2021 Albumin [Mass/Vol] 4.3 g/dL Normal 3.8-4.9 [facility] Internal Medicine; [facility] Work Phone: Comment on above: PATIENT NOT FASTINGP ERFORMED BY: DEACON [facility] Jatyce0060 [address] RoadDublin [place] [id number] Albumin/Globulin [Mass ratio] 2.4 {ratio} Abnormal 1.2-2.2 [facility]; [facility] Work Phone: Comment on above: PATIENT NOT FASTINGP ERFORMED BY: DEACON [facility] Rccvfd8735 [address] RoadDublin [place] [id number] ALP [Catalytic activity/Vol] 111 U/L Normal 44-121 [facility]; [facility] Work Phone: Comment on above: PATIENT NOT FASTINGP ERFORMED BY: CB [facility] Pmyodc9478 [address] RoadDublin [place] [id number] ALT [Catalytic activity/Vol] 25 U/L Normal 0-32 [facility]; [facility] Work Phone: Comment on above: PATIENT NOT FASTINGP ERFORMED BY: CB [facility] Cgijpa1799 [address] RoadDublin [place] [id number] AST [Catalytic activity/Vol] 21 U/L Normal 0-40 [facility]; [facility] Work Phone: Comment on above: PATIENT NOT FASTINGP ERFORMED BY: CB [facility] Whmtzr3044 [address] RoadDublin [place] [id number] Bilirubin [Mass/Vol] 0.2 mg/dL Normal 0.0-1.2 Comp rehensive Internal Medicine; [facility] Work Phone: Comment on above: PATIENT NOT FASTINGP ERFORMED BY: CB [facility] Zwhzhu0883 [address]Dublin [place] [id number] Calcium [Mass/Vol] 9.0 mg/dL Normal 8.7-10.2 [facility] Internal Medicine; [facility] Work Phone: Comment on above: PATIENT NOT FASTINGP ERFORMED BY: CB [facility] Ikotcb2165 [address] RoadDublin [place] [id number] Chloride [Moles/Vol] 104 mmol/L Normal 96-106 Comp rehensive Internal Medicine; [facility] Work Phone: Comment on above: PATIENT NOT FASTINGP ERFORMED BY: CB [facility] Bilnts2543 [address] RoadDublin [place] [id number] CO2 [Moles/Vol] 22 mmol/L Normal 20-29 [facility] Internal Medicine; [facility] Work Phone: Comment on above: PATIENT NOT FASTINGP ERFORMED BY: CB [facility] Lffxcx3663 [address] RoadDublin [place] [id number] Creatinine [Mass/Vol] 0.96 mg/dL Normal 0.57-1.00 [facility] prehensive Internal Medicine; [facility] Work Phone: Comment on above: PATIENT NOT FASTINGP ERFORMED BY: DEACON Huerta6370 [facility]cedoSaint [facility] [id number] GFR/1.73 sq M.predicted among non-blacks MDRD (S/P/Bld) [Vol rate/Area] 70 mL/min/{1.73_m2} Normal Comprehensiv e Internal Medicine; [facility] Work Phone: Comment on above: PATIENT NOT FASTINGP ERFORMED BY: DEACON Wonglin6370 [facility] [id number] Globulin (S) [Mass/Vol] 1.8 g/dL Normal 1.5-4.5 [facility]; [facility] Work Phone: Comment on above: PATIENT NOT FASTINGP ERFORMED BY: DEACON Wonglin6370 [facility] [id number] Glucose [Mass/Vol] 78 mg/dL Normal 65-99 [facility] hensive [facility]; [facility] Work Phone: Comment on above: PATIENT NOT FASTINGP ERFORMED BY: DEACON Huerta6370 [facility] [id number] Potassium [Moles/Vol] 4.3 mmol/L Normal 3.5-5.2 [facility] prehensive Internal Medicine; [facility] Work Phone: Comment on above: PATIENT NOT FASTINGP ERFORMED BY: DEACON Wonglin6370 [facility] [id number] Protein [Mass/Vol] 6.1 g/dL Normal 6.0-8.5 [facility] hensive [facility] Medicine; [facility] Work Phone: Comment on above: PATIENT NOT FASTINGP ERFORMED BY: DEACON Labalbert WongHqsnif4013 [facility] [id number] Sodium [Moles/Vol] 138 mmol/L Normal 134-144 [facility] hensive Internal Medicine; [facility] Work Phone: Comment on above: PATIENT NOT FASTINGP ERFORMED BY: DEACON Labcobonnie Pnowfs7691 [address] [facility]in [place] [id number] Urea nitrogen [Mass/Vol] 7 mg/dL Normal 6-24 [facility]; [facility] Work Phone: Comment on above: PATIENT NOT FASTINGP ERFORMED BY: DEACON [facility] Dxwagn0264 [address] [facility]in [place] [id number] Urea nitrogen/Creatinine [Mass ratio] 7 mg/mg Abnormal 9- [facility]; [facility] Work Phone: Comment on above: PATIENT NOT FASTINGP ERFORMED BY: [facility] Xalvhi[address] [facility] [id number] TSH (THYROID STIMULATING HOR SEE) ([id number])Ordered By: Plastics Repairer on 09-19-2021 TSH Qn 1.430 {uIU/mL} Normal 0.450-4.50 0 [facility]; [facility] Work Phone: Comment on above: PATIENT NOT FASTINGP ERFORMED BY: [facility] Envijh9[address] [facility] [id number] BNTP ([id number])Ordered By: Syst em [employer] Professor on 07-08-2020 Natriuretic peptide B (Bld) [Mass/Vol] 17.5 pg/mL Normal 0.0-100.0 [facility]; [facility] Work Phone: Comment on above: PATIENT NOT FASTINGP ERFORMED BY: [facility] Nnbloa2477 [facility] [id number] C-REACT PROT HIGH SENS(hsCRP ) ([id number])Ordered By: Plastics Repairer on 07-08-2020 CRP High sensitivity method [Mass/Vol] 0.30 mg/L Normal 0.00-3.00 [facility]; [facility] Work Phone: Comment on above: Relative Risk for Fu ture Cardiovascular Event Low <1.00 Average 1.00 - 3.00 High >3.00 PATIENT NOT FASTINGP ERFORMED BY: [facility] Rtywuz[address] [facility] [id number] CBC, Platelets & Auto Diff ( [id number])Ordered By: Plastics Repairer on 07-08-2020 Basophils (Bld) [#/Vol] 0.0 {x10E3/uL} Normal 0.0-0.2 [facility]; [facility] Work Phone: Comment on above: PATIENT NOT FASTINGP ERFORMED BY: DEACON [facility] Syzuan8450 [address] RoadDublin [place] [id number] Basophils (Bld) [#/Vol] 0.0 10*3/uL Normal 0.0-0.2 [facility]; [facility] Work Phone: Comment on above: PATIENT NOT FASTINGP ERFORMED BY: CB [facility] Hbicqm1943 [address] RoadDublin [place] [id number] Basophils/100 WBC (Bld) 0 % Normal [facility]; [facility] Work Phone: Comment on above: PATIENT NOT FASTINGP ERFORMED BY: [facility] Bmporg8442 [address] RoadDublin [place] [id number] Eosinophils (Bld) [#/Vol] 0.0 {x10E3/uL} Normal 0.0-0.4 [facility]; [facility] Work Phone: Comment on above: PATIENT NOT FASTINGP ERFORMED BY: CB [facility] Nnzoni4129 [address] Roadblin [place] [id number] Eosinophils (Bld) [#/Vol] 0.0 10*3/uL Normal 0.0-0.4 [facility]; [facility] Work Phone: Comment on above: PATIENT NOT FASTINGP ERFORMED BY: CB [facility] Jvbwck5909 [address] RoadDublin [place] [id number] Eosinophils/100 WBC (Bld) 0 % Normal [facility]; [facility] Work Phone: Comment on above: PATIENT NOT FASTINGP ERFORMED BY: CB [facility] Yiigxh9056 [address] RoadDublin [place] [id number] Erythrocyte distribution width (RBC) [Ratio] 13.3 % Normal 11.7-15.4 [facility]; [facility] Work Phone: Comment on above: PATIENT NOT FASTINGP ERFORMED BY: DEACON LabCobonnie Dyiiug0231 [address] RoadDublin [place] [id number] Hematocrit (Bld) [Volume fraction] 39.2 % Normal 34.0-46.6 [facility]; [facility] Work Phone: Comment on above: PATIENT NOT FASTINGP ERFORMED BY: CB [facility] Nuphkv3242 [address]Dublin [place] [id number] Hemoglobin (Bld) [Mass/Vol] 13.2 g/dL Normal 11.1-15.9 [facility]; [facility] Work Phone: Comment on above: PATIENT NOT FASTINGP ERFORMED BY: DEACON [facility] Jynybd5208 [address]Dublin [place] [id number] Immature granulocytes (Bld) [#/Vol] 0.1 {x10E3/uL} Normal 0.0-0.1 [facility]; [facility] Work Phone: Comment on above: PATIENT NOT FASTINGP ERFORMED BY: EDACON [facility] Bwvuld3177 [address] RoadDublin [place] [id number] Immature granulocytes (Bld) [#/Vol] 0.1 10*3/uL Normal 0.0-0.1 [facility]; [facility] Work Phone: Comment on above: PATIENT NOT FASTINGP ERFORMED BY: DEACON [facility] Rnksfo5146 [address] RoadDublin [place] [id number] Immature granulocytes/100 WBC (Bld) 1 % Normal [facility]; [facility] Work Phone: Comment on above: PATIENT NOT FASTINGP ERFORMED BY: CB [facility] Mxrmno7808 [address]Dublin [place] [id number] Lymphocytes (Bld) [#/Vol] 2.8 {x10E3/uL} Normal 0.7-3.1 [facility]; [facility] Work Phone: Comment on above: PATIENT NOT FASTINGP ERFORMED BY: CB [facility] Tmyjpn0452 [address]Dublin [place] [id number] Lymphocytes (Bld) [#/Vol] 2.8 10*3/uL Normal 0.7-3.1 [facility]; [facility] Work Phone: Comment on above: PATIENT NOT FASTINGP ERFORMED BY: DEACON Huerta6370 [address] [facility]in [place] [id number] Lymphocytes/100 WBC (Bld) 29 % Normal [facility]; [facility] Work Phone: Comment on above: PATIENT NOT FASTINGP ERFORMED BY: DEACON Wonglin6[address] [facility] [id number] MCH (RBC) [Entitic mass] 30.6 pg Normal 26.6-33.0 [facility]; [facility] Work Phone: Comment on above: PATIENT NOT FASTINGP ERFORMED BY: DEACON Qian Huerta6370 [facility] [id number] MCHC (RBC) [Mass/Vol] 33.7 g/dL Normal 31.5-35.7 [facility] Internal Medicine; [facility] Work Phone: Comment on above: PATIENT NOT FASTINGP ERFORMED BY: DEACON Qian Huerta6370 [facility]oSaint [facility] [id number] MCV (RBC) [Entitic vol] 91 fL Normal 79-97 [facility]; [facility] Work Phone: Comment on above: PATIENT NOT FASTINGP ERFORMED BY: DEACON Qian Wonglin6370 [facility]aint [facility] [id number] Monocytes (Bld) [#/Vol] 0.5 {x10E3/uL} Normal 0.1-0.9 [facility]; [facility] Work Phone: Comment on above: PATIENT NOT FASTINGP ERFORMED BY: DEACON LabLesia Vhtyjf1135 [address] [facility]in [place] [id number] Monocytes (Bld) [#/Vol] 0.5 10*3/uL Normal 0.1-0.9 [facility]; [facility] Work Phone: Comment on above: PATIENT NOT FASTINGP ERFORMED BY: DEACON Huerta6370 [address]Dublin [place] [id number] Monocytes/100 WBC (Bld) 6 % Normal [facility]; [facility] Work Phone: Comment on above: PATIENT NOT FASTINGP ERFORMED BY: DEACON Huerta6370 [address]Dublin [place] [id number] Neutrophils (Bld) [#/Vol] 6.3 {x10E3/uL} Normal 1.4-7.0 [facility]; [facility] Work Phone: Comment on above: PATIENT NOT FASTINGP ERFORMED BY: DEACON Huerta6370 [address]Dublin [place] [id number] Neutrophils (Bld) [#/Vol] 6.3 10*3/uL Normal 1.4-7.0 [facility]; [facility] Work Phone: Comment on above: PATIENT NOT FASTINGP ERFORMED BY: DEACON Huerta6370 [address]Dublin [place] [id number] Neutrophils/100 WBC (Bld) 64 % Normal [facility]; [facility] Work Phone: Comment on above: PATIENT NOT FASTINGP ERFORMED BY: DEACON Huerta6370 [address]Dublin [place] [id number] Platelets (Bld) [#/Vol] 188 {x10E3/uL} Normal 150-450 [facility]; [facility] Work Phone: Comment on above: PATIENT NOT FASTINGP ERFORMED BY: DEACON Huerta6370 [address]Dublin [place] [id number] Platelets (Bld) [#/Vol] 188 10*3/uL Normal 150-450 [facility]; [facility] Work Phone: Comment on above: PATIENT NOT FASTINGP ERFORMED BY: DEACON Huerta6370 [address]Dublin [place] [id number] RBC (Bld) [#/Vol] 4.31 {x10E6/uL} Normal 3.77-5.28 [facility] Internal Medicine; [facility] Work Phone: Comment on above: PATIENT NOT FASTINGP ERFORMED BY: CB [facility] Moumkr5[address] RoadDublin [place] [id number] RBC (Bld) [#/Vol] 4.31 10*6/uL Normal 3.77-5.28 [facility]; [facility] Work Phone: Comment on above: PATIENT NOT FASTINGP ERFORMED BY: CB [facility] Vzgfls8884 [address] RoadDublin [place] [id number] WBC (Bld) [#/Vol] 9.7 {x10E3/uL} Normal 3.4-10.8 [facility] Internal Medicine; [facility] Work Phone: Comment on above: PATIENT NOT FASTINGP ERFORMED BY: CB [facility] Jwvblg0728 [address] RoadDublin [place] [id number] WBC (Bld) [#/Vol] 9.7 10*3/uL Normal 3.4-10.8 [facility] Internal Medicine; [facility] Work Phone: Comment on above: PATIENT NOT FASTINGP ERFORMED BY: CB [facility] Xvsffq1253 [address]Dublin [place] [id number] D-Dimer ([id number])Ordered By: Ruy fernandez [employer] Professor on 07-08-2020 Fibrin D-dimer FEU (PPP) [Mass/Vol] 0.30 {mg/L_FEU} Normal 0.00-0.49 [facility] Internal Medicine; [facility] Work Phone: Comment on above: According to the ass ay telephone maintainer's published package insert, anormal (<0.50 mg/L FEU) D-dimer result in conjunction with a non-highclinical probability assessment, excludes deep vein thrombosis (DVT)and pulmonary embolism (PE) with high sensitivity. .D-dimer values increase with age and this can make VTE exclusion ofan older population difficult. To address this, the [employer], based on best available evidence [...] PATIENT NOT FASTINGP ERFORMED BY: CB [facility] Igbnco9[address]Dublin [place] [id number] Metabolic Panel, Comprehensi ve ([id number])Ordered By: Plastics Repairer on 07-08-2020 Albumin [Mass/Vol] 3.8 g/dL Normal 3.8-4.9 [facility] Internal Medicine; [facility] Work Phone: Comment on above: PATIENT NOT FASTINGP ERFORMED BY: CB [facility] Lrcfcq0232 [address] RoadDublin [place] [id number] Albumin/Globulin [Mass ratio] 1.9 {ratio} Normal 1.2-2.2 [facility]; [facility] Work Phone: Comment on above: PATIENT NOT FASTINGP ERFORMED BY: CB [facility] Cdyuum0625 [address] RoadDublin [place] [id number] ALP [Catalytic activity/Vol] 92 [iU]/L Normal 39-117 [facility]; [facility] Work Phone: Comment on above: PATIENT NOT FASTINGP ERFORMED BY: CB [facility] Zuartw6712 [address] RoadDublin [place] [id number] ALP [Catalytic activity/Vol] 92 U/L Normal 39-117 [facility]; [facility] Work Phone: Comment on above: PATIENT NOT FASTINGP ERFORMED BY: CB [facility] Nckyyu2498 [address] RoadDublin [place] [id number] ALT [Catalytic activity/Vol] 22 [iU]/L Normal 0-32 [facility]; [facility] Work Phone: Comment on above: PATIENT NOT FASTINGP ERFORMED BY: CB [facility] Vafyjo8478 [address] RoadDublin [place] [id number] ALT [Catalytic activity/Vol] 22 U/L Normal 0-32 [facility]; [facility] Work Phone: Comment on above: PATIENT NOT FASTINGP ERFORMED BY: CB [facility] Akazub2119 [address] RoadDublin [place] [id number] AST [Catalytic activity/Vol] 15 [iU]/L Normal 0-40 [facility]; [facility] Work Phone: Comment on above: PATIENT NOT FASTINGP ERFORMED BY: CB [facility] Pbwhqr2639 [address] RoadDublin [place] [id number] AST [Catalytic activity/Vol] 15 U/L Normal 0-40 [facility]; [facility] Work Phone: Comment on above: PATIENT NOT FASTINGP ERFORMED BY: CB [facility] Dfjhoa9567 [address] RoadDublin [place] [id number] Bilirubin [Mass/Vol] mg/dL Normal 0.0-1.2 Comp rehensive Internal Medicine; [facility] Work Phone: Comment on above: PATIENT NOT FASTINGP ERFORMED BY: CB [facility] Abhgur5991 [address]Dublin [place] [id number] Bilirubin [Mass/Vol] mg/dL Normal 0.0-1.2 [facility] rehensive Internal Medicine; [facility] Work Phone: Comment on above: PATIENT NOT FASTINGP ERFORMED BY: CB [facility] Ypivuy7870 [address] RoadDublin [place] [id number] Calcium [Mass/Vol] 8.4 mg/dL Abnormal 8.7-10.2 [facility]; [facility] Work Phone: Comment on above: PATIENT NOT FASTINGP ERFORMED BY: CB [facility] Jyqygp38[address]Dublin [place] [id number] Chloride [Moles/Vol] 108 mmol/L Abnormal 96-106 Comp rehensive Internal Medicine; [facility] Work Phone: Comment on above: PATIENT NOT FASTINGP ERFORMED BY: CB [facility] Afrzgv8804 [address]Dublin [place] [id number] CO2 [Moles/Vol] 23 mmol/L Normal 20-29 [facility]; [facility] Work Phone: Comment on above: PATIENT NOT FASTINGP ERFORMED BY: CB [facility] Fnuzms9156 [address] RoadDublin [place] [id number] Creatinine [Mass/Vol] 0.86 mg/dL Normal 0.57-1.00 [facility] prehensive Internal Medicine; [facility] Work Phone: Comment on above: PATIENT NOT FASTINGP ERFORMED BY: CB [facility] Rhpvmc0070 [address] RoadDublin [place] [id number] GFR/1.73 sq M predicted among blacks CKD-EPI (S/P/Bld) [Vol rate/Area] 90 mL/min/1.73 Normal [facility]; [facility] Work Phone: Comment on above: PATIENT NOT FASTINGP ERFORMED BY: CB [facility] Prouvy9073 [address] RoadDublin [place] [id number] GFR/1.73 sq M predicted among non-blacks CKD-EPI (S/P/Bld) [Vol rate/Area] 78 mL/min/1.73 Normal [facility]; [facility] Work Phone: Comment on above: PATIENT NOT FASTINGP ERFORMED BY: CB [facility] Bqvllv2272 [address]Dublin [place] [id number] Globulin (S) [Mass/Vol] 2.0 g/dL Normal 1.5-4.5 [facility]; [facility] Work Phone: Comment on above: PATIENT NOT FASTINGP ERFORMED BY: CB [facility] Ciqhad9990 [address]Dublin [place] [id number] Glucose [Mass/Vol] 87 mg/dL Normal 65-99 [facility] Internal Medicine; [facility] Work Phone: Comment on above: PATIENT NOT FASTINGP ERFORMED BY: CB [facility] Ckfsfx1887 [address] RoadDublin [place] [id number] Potassium [Moles/Vol] 3.9 mmol/L Normal 3.5-5.2 [facility] prehensive Internal Medicine; [facility] Work Phone: Comment on above: PATIENT NOT FASTINGP ERFORMED BY: [facility]in6[address]blin [place] [id number] Protein [Mass/Vol] 5.8 g/dL Abnormal 6.0-8.5 [facility] Internal Medicine; [facility] Work Phone: Comment on above: PATIENT NOT FASTINGP ERFORMED BY: [facility]allin[address] [facility]blin [place] [id number] Sodium [Moles/Vol] 144 mmol/L Normal 134-144 [facility] Internal Medicine; [facility] Work Phone: Comment on above: PATIENT NOT FASTINGP ERFORMED BY: [facility] [facility] Hospitalblin [place] [id number] Urea nitrogen [Mass/Vol] 12 mg/dL Normal 6-24 [facility]; [facility] Work Phone: Comment on above: PATIENT NOT FASTINGP ERFORMED BY: [facility] [facility] [place] [id number] Urea nitrogen/Creatinine [Mass ratio] 14 mg/mg Normal 9-23 [facility]; [facility] Work Phone: Comment on above: PATIENT NOT FASTINGP ERFORMED BY: [facility] [facility] Hospitalblin [place] [id number] TSH ([id number])Ordered By: FirstRaine m [employer] Professor on 07-08-2020 TSH Qn 2.350 {uIU/mL} Normal 0.450-4.50 0 [facility]; [facility] Work Phone: Comment on above: PATIENT NOT FASTINGP ERFORMED BY: [facility]in[address] [facility]blin [place] [id number] 2018 Novel Coronavirus (COVI D-19), JONH ([id number])Ordered By: Plastics Repairer on 02-29-20202018 Novel Coronavirus (COVID-19), JOHN ([id number]) Not Detected Normal [facility] Work Phone: Comment on above: This nucleic acid am plification test was developed and its performancecharacteristics determined by [employer]. Nucleic acidamplification tests include PCR and TMA. [...] assay. PATIENT NOT FASTINGP ERFORMED BY: BRITT [employer] UAM0238 [facility] [id number] 2018 Novel Coronavirus (COVID-19), JOHN ([id number]) Not detected Normal [facility]; [facility] Work Phone: Comment on above: This nucleic acid am plification test was developed and its performancecharacteristics determined by [employer]. Nucleic acidamplification tests include PCR and TMA. [...] assay. PATIENT NOT FASTINGP ERFORMED BY: BRITT [employer] [id number]RTP [place] [id number] 2018 Novel Coronavirus (COVI D-19), JOHN ([id number])Ordered By: Plastics Repairer on 10-30-20192018 Novel Coronavirus (COVID-19), JOHN ([id number]) Not Detected Normal [facility] Work Phone: Comment on above: Testing was performe d using the Aptima SARS-CoV-2 assay.This test was developed and its performance characteristics determinedby [employer]. This test has not been FDA cleared [...] detected) result in this assay. PERFORMED BY: =[employer] [address] [id number] 2018 Novel Coronavirus (COVID-19), JOHN ([id number]) Not detected Normal [facility]; [facility] Work Phone: Comment on above: Testing was performe d using the Aptima SARS-CoV-2 assay.This test was developed and its performance characteristics determinedby [employer]. This test has not been FDA cleared [...] detected) result in this assay. PERFORMED BY: =[employer] [address] [place] [id number] CBC W/AUTO DIFF WBC ([id number])O rdered By: Plastics Repairer on 10-19-2019 Basophils (Bld) [#/Vol] 0.0 {x10E3/uL} Normal 0.0-0.2 [facility] Work Phone: Comment on above: PATIENT WAS FASTINGP ERFORMED BY: [employer] [facility]oupCentral [facility] Hospital [id number] Basophils (Bld) [#/Vol] 0.0 10*3/uL Normal 0.0-0.2 [facility]; [facility] Work Phone: Comment on above: PATIENT WAS FASTINGP ERFORMED BY: [employer] CurseDuke Raleigh Hospital [id number] Basophils/100 WBC (Bld) 1 % Normal [facility] Work Phone: Comment on above: PATIENT WAS FASTINGP ERFORMED BY: [employer] RecoupCentral Carolina Hospital [id number] Eosinophils (Bld) [#/Vol] 0.1 {x10E3/uL} Normal 0.0-0.4 [facility] Work Phone: Comment on above: PATIENT WAS FASTINGP ERFORMED BY: Hel[employer] EnergyHenry Ford Wyand[facility] Hospital[address] [facility] [id number] Eosinophils (Bld) [#/Vol] 0.1 10*3/uL Normal 0.0-0.4 [facility]; [facility] Work Phone: Comment on above: PATIENT WAS FASTINGP ERFORMED BY: [facility] [facility] [id number] Eosinophils/100 WBC (Bld) 2 % Normal [facility] Work Phone: Comment on above: PATIENT WAS FASTINGP ERFORMED BY: [facility]6370 [facility] [id number] Erythrocyte distribution width (RBC) [Ratio] 12.5 % Normal 11.7-15.4 [facility] Work Phone: Comment on above: PATIENT WAS FASTINGP ERFORMED BY: [facility]6370 [facility] [id number] Hematocrit (Bld) [Volume fraction] 44.0 % Normal 34.0-46.6 [facility] Work Phone: Comment on above: PATIENT WAS FASTINGP ERFORMED BY: [facility]6370 [facility] [id number] Hemoglobin (Bld) [Mass/Vol] 14.4 g/dL Normal 11.1-15.9 [facility] Work Phone: Comment on above: PATIENT WAS FASTINGP ERFORMED BY: LabHenry [facility] [facility] [id number] Immature granulocytes (Bld) [#/Vol] 0.0 {x10E3/uL} Normal 0.0-0.1 [facility] Work Phone: Comment on above: PATIENT WAS FASTINGP ERFORMED BY: LabHenry [facility] [facility] [id number] Immature granulocytes (Bld) [#/Vol] 0.0 10*3/uL Normal 0.0-0.1 [facility]; [facility] Work Phone: Comment on above: PATIENT WAS FASTINGP ERFORMED BY: DEACON BrownHarry [facility]. [facility] Uyszrt2155 [facility] [id number] Immature granulocytes/100 WBC (Bld) 0 % Normal [facility] Work Phone: Comment on above: PATIENT WAS FASTINGP ERFORMED BY: DEACON Wonglin6370 [facility] [id number] Lymphocytes (Bld) [#/Vol] 1.3 {x10E3/uL} Normal 0.7-3.1 [facility] Work Phone: Comment on above: PATIENT WAS FASTINGP ERFORMED BY: DEACON BrownHarry [facility]. [facility] Xrdkzr2764 [facility] [id number] Lymphocytes (Bld) [#/Vol] 1.3 10*3/uL Normal 0.7-3.1 [facility]; [facility] Work Phone: Comment on above: PATIENT WAS FASTINGP ERFORMED BY: DEACON Wonglin6370 [facility] [id number] Lymphocytes/100 WBC (Bld) 22 % Normal [facility] Work Phone: Comment on above: PATIENT WAS FASTINGP ERFORMED BY: DEACON Wonglin6370 [facility] [id number] MCH (RBC) [Entitic mass] 29.6 pg Normal 26.6-33.0 [facility] Internal Medicine Work Phone: Comment on above: PATIENT WAS FASTINGP ERFORMED BY: DEACON BrownHarry [facility]. [facility] Tadzkk4447 [facility] [id number] MCHC (RBC) [Mass/Vol] 32.7 g/dL Normal 31.5-35.7 [facility] Internal [facility] Work Phone: Comment on above: PATIENT WAS FASTINGP ERFORMED BY: DEACON [facility]6370 [facility] [id number] MCV (RBC) [Entitic vol] 91 fL Normal 79-97 [facility] Work Phone: Comment on above: PATIENT WAS FASTINGP ERFORMED BY: DEACON BrownHenry Ford [facility]and[facility] Hospital[address]Dublin [place] [id number] Monocytes (Bld) [#/Vol] 0.4 {x10E3/uL} Normal 0.1-0.9 [facility] Work Phone: Comment on above: PATIENT WAS FASTINGP ERFORMED BY: DEACON [facility] Impktd2671 [address] RoadDublin [place] [id number] Monocytes (Bld) [#/Vol] 0.4 10*3/uL Normal 0.1-0.9 [facility]; [facility] Work Phone: Comment on above: PATIENT WAS FASTINGP ERFORMED BY: DEACON Huerta[address]Dublin [place] [id number] Monocytes/100 WBC (Bld) 8 % Normal [facility] Work Phone: Comment on above: PATIENT WAS FASTINGP ERFORMED BY: DEACON BrownHarry [facility]. [facility] Obeuem6897 [address] RoadDublin [place] [id number] Neutrophils (Bld) [#/Vol] 3.9 {x10E3/uL} Normal 1.4-7.0 [facility] Work Phone: Comment on above: PATIENT WAS FASTINGP ERFORMED BY: DEACON Huerta[address]Dublin [place] [id number] Neutrophils (Bld) [#/Vol] 3.9 10*3/uL Normal 1.4-7.0 [facility]; [facility] Work Phone: Comment on above: PATIENT WAS FASTINGP ERFORMED BY: DEACON [facility] Tugamh4807 [address] RoadDublin [place] [id number] Neutrophils/100 WBC (Bld) 67 % Normal [facility] Work Phone: Comment on above: PATIENT WAS FASTINGP ERFORMED BY: DEACON [facility] Rbsamk1658 [address] RoadDublin [place] [id number] Platelets (Bld) [#/Vol] 242 {x10E3/uL} Normal 150-450 [facility] Work Phone: Comment on above: PATIENT WAS FASTINGP ERFORMED BY: CB [facility] Ofkjrc5154 [address] RoadDublin [place] [id number] Platelets (Bld) [#/Vol] 242 10*3/uL Normal 150-450 [facility]; [facility] Work Phone: Comment on above: PATIENT WAS FASTINGP ERFORMED BY: DEACON [facility] Gelntt2530 [address] RoadDublin [place] [id number] RBC (Bld) [#/Vol] 4.86 {x10E6/uL} Normal 3.77-5.28 [facility] Internal Medicine Work Phone: Comment on above: PATIENT WAS FASTINGP ERFORMED BY: DEACON [facility] Fgmksy7307 [address] RoadDublin [place] [id number] RBC (Bld) [#/Vol] 4.86 10*6/uL Normal 3.77-5.28 [facility] Internal Medicine; [facility] Work Phone: Comment on above: PATIENT WAS FASTINGP ERFORMED BY: CB [facility] Deaoan4793 [address]Dublin [place] [id number] WBC (Bld) [#/Vol] 5.8 {x10E3/uL} Normal 3.4-10.8 [facility] Internal Medicine Work Phone: Comment on above: PATIENT WAS FASTINGP ERFORMED BY: DEACON [facility] Fvzwtk5223 [address] RoadDublin [place] [id number] WBC (Bld) [#/Vol] 5.8 10*3/uL Normal 3.4-10.8 [facility] Internal Medicine; [facility] Work Phone: Comment on above: PATIENT WAS FASTINGP ERFORMED BY: CB [facility] Okibvp8915 [address]Dublin [place] [id number] LIPID PANEL ([id number])Ordered B y: Plastics Repairer on 10-19-2019 Cholesterol [Mass/Vol] 141 mg/dL Normal 100-199 [facility] Work Phone: Comment on above: PATIENT WAS FASTINGP ERFORMED BY: CB [facility] Hgmcms0052 [address] RoadDublin [place] [id number] Cholesterol in HDL [Mass/Vol] 65 mg/dL Normal [facility] Work Phone: Comment on above: PATIENT WAS FASTINGP ERFORMED BY: DEACON StephanieAlbert Ylfxub9807 [facility] [id number] Cholesterol in LDL [Mass/Vol] 52 mg/dL Normal 0-99 [facility] Work Phone: Comment on above: PATIENT WAS FASTINGP ERFORMED BY: DEACON Wonglin6370 [facility] [id number] Cholesterol in LDL/Cholesterol in HDL [Mass ratio] 0.8 {ratio} Normal 0.0-3.2 [facility] Work Phone: Comment on above: LDL/HDL Ratio Men Wo men 1/2 Avg.Risk 1.0 1.5 Avg.Risk 3.6 3.2 2X Avg.Risk 6.2 5.0 3X Avg.Risk 8.0 6.1 PATIENT WAS FASTINGP ERFORMED BY: DEACON Wonglin6370 [facility] [id number] Cholesterol in VLDL [Mass/Vol] 24 mg/dL Normal 5-40 [facility] Work Phone: Comment on above: PATIENT WAS FASTINGP ERFORMED BY: DEACON StephanieAlbert Uuxiab5087 [facility] [id number] Triglyceride [Mass/Vol] 122 mg/dL Normal 0-149 [facility] Work Phone: Comment on above: PATIENT WAS FASTINGP ERFORMED BY: DEACON Wonglin6370 [facility] [id number] METABOLIC PANEL, COMPREHENSI VE ([id number])Ordered By: Plastics Repairer on 10-19-2019 Albumin [Mass/Vol] 4.8 g/dL Normal 3.8-4.9 [facility] Internal Medicine Work Phone: Comment on above: PATIENT WAS FASTINGP ERFORMED BY: DEACON Wonglin6370 [facility] [id number] Albumin/Globulin [Mass ratio] 2.0 {ratio} Normal 1.2-2.2 [facility] Work Phone: Comment on above: PATIENT WAS FASTINGP ERFORMED BY: DEACON [facility] Oumzcl0888 [address]Dublin [place] [id number] ALP [Catalytic activity/Vol] 119 [iU]/L Abnormal 39-117 [facility] Work Phone: Comment on above: PATIENT WAS FASTINGP ERFORMED BY: DEACON [facility] Asbhpa1241 [address]Dublin [place] [id number] ALP [Catalytic activity/Vol] 119 U/L Abnormal 39-117 [facility]; [facility] Work Phone: Comment on above: PATIENT WAS FASTINGP ERFORMED BY: DEACON LabCobonnie WongZfxjhr7715 [address] RoadDublin [place] [id number] ALT [Catalytic activity/Vol] 15 [iU]/L Normal 0-32 [facility] Work Phone: Comment on above: PATIENT WAS FASTINGP ERFORMED BY: DEACON LabAlbert WongGruihs7001 [address] RoadDublin [place] [id number] ALT [Catalytic activity/Vol] 15 U/L Normal 0-32 [facility]; [facility] Work Phone: Comment on above: PATIENT WAS FASTINGP ERFORMED BY: DEACON Wonglin[address]Dublin [place] [id number] AST [Catalytic activity/Vol] 20 [iU]/L Normal 0-40 [facility] Work Phone: Comment on above: PATIENT WAS FASTINGP ERFORMED BY: DEACON [facility] Qeqxpr3382 [address] RoadDublin [place] [id number] AST [Catalytic activity/Vol] 20 U/L Normal 0-40 [facility]; [facility] Work Phone: Comment on above: PATIENT WAS FASTINGP ERFORMED BY: DEACON [facility] Ujupqq8889 [address] RoadDublin [place] [id number] Bilirubin [Mass/Vol] 0.2 mg/dL Normal 0.0-1.2 [facility] Internal Medicine Work Phone: Comment on above: PATIENT WAS FASTINGP ERFORMED BY: DEACON [facility] Uoposp2359 [address]Dublin [place] [id number] Calcium [Mass/Vol] 9.4 mg/dL Normal 8.7-10.2 [facility] Internal Medicine Work Phone: Comment on above: PATIENT WAS FASTINGP ERFORMED BY: CB [facility] Qptvqd3838 [address] RoadDublin [place] [id number] Chloride [Moles/Vol] 110 mmol/L Abnormal 96-106 [facility] Work Phone: Comment on above: PATIENT WAS FASTINGP ERFORMED BY: CB [facility] Gsnxll9272 [address] RoadDublin [place] [id number] CO2 [Moles/Vol] 22 mmol/L Normal 20-29 [facility] Internal Medicine Work Phone: Comment on above: PATIENT WAS FASTINGP ERFORMED BY: [facility] Kznahz2145 [address]Dublin [place] [id number] Creatinine [Mass/Vol] 1.09 mg/dL Abnormal 0.57-1.00 [facility] Internal Medicine Work Phone: Comment on above: PATIENT WAS FASTINGP ERFORMED BY: [facility] Bhktbd4220 [address] RoadDublin [place] [id number] GFR/1.73 sq M predicted among blacks CKD-EPI (S/P/Bld) [Vol rate/Area] 67 mL/min/1.73 Normal [facility] Work Phone: Comment on above: PATIENT WAS FASTINGP ERFORMED BY: [facility] Tdvbhd8575 [address] RoadDublin [place] [id number] GFR/1.73 sq M predicted among non-blacks CKD-EPI (S/P/Bld) [Vol rate/Area] 59 mL/min/1.73 Abnormal [facility] Work Phone: Comment on above: PATIENT WAS FASTINGP ERFORMED BY: CB [facility] Jklppk2695 [address]Dublin [place] [id number] Globulin (S) [Mass/Vol] 2.4 g/dL Normal 1.5-4.5 [facility] Work Phone: Comment on above: PATIENT WAS FASTINGP ERFORMED BY: DEACON [facility] Czjmyj3197 [address] RoadDublin [place] [id number] Glucose [Mass/Vol] 109 mg/dL Abnormal 65-99 [facility] Internal Medicine Work Phone: Comment on above: PATIENT WAS FASTINGP ERFORMED BY: DEACON [facility] Lzyndv4264 [address] RoadDublin [place] [id number] Potassium [Moles/Vol] 4.3 mmol/L Normal 3.5-5.2 [facility] Internal Medicine Work Phone: Comment on above: PATIENT WAS FASTINGP ERFORMED BY: DEACON [facility] Igqxhb2223 [address]blin [place] [id number] Protein [Mass/Vol] 7.2 g/dL Normal 6.0-8.5 [facility] Internal Medicine Work Phone: Comment on above: PATIENT WAS FASTINGP ERFORMED BY: DEACON [facility] Bdwwtf8244 [address] RoadDuin [place] [id number] Sodium [Moles/Vol] 145 mmol/L Abnormal 134-144 [facility] Internal Medicine Work Phone: Comment on above: PATIENT WAS FASTINGP ERFORMED BY: DEACON [facility] Tmaler7179 [address] Roadblin [place] [id number] Urea nitrogen [Mass/Vol] 9 mg/dL Normal 6-24 [facility] Internal Medicine Work Phone: Comment on above: PATIENT WAS FASTINGP ERFORMED BY: DEACON [facility] Vvsalq6045 [address] RoadCone Health Medcenter High Pointin [place] [id number] Urea nitrogen/Creatinine [Mass ratio] 8 mg/mg Abnormal 9-23 [facility] Internal Medicine Work Phone: Comment on above: PATIENT WAS FASTINGP ERFORMED BY: DEACON [facility] [id number] RoadDublin [place] [id number] PT (Prothrobim Time) ([id number]) Ordered By: Plastics Repairer on 10-19-2019 INR Coag (PPP) [Relative time] 1.0 {INR} Normal 0.8-1.2 [facility] Internal Medicine Work Phone: Comment on above: Reference interval i s for non-anticoagulated patients. . Suggested INR therapeutic range for Vitamin K antagonist therapy: Standard Dose (moderate intensity therapeutic range): 2.0 - 3.0 Higher intensity therapeutic range 2.5 - 3.5 PATIENT WAS FASTINGP ERFORMED BY: Welspun EnergyHarry S. [facility] [id number]Dublin [place] [id number] PT Coag (PPP) [Time] 10.3 {sec} Normal 9.1-12.0 [facility] rehensive Internal Medicine Work Phone: Comment on above: PATIENT WAS FASTINGP ERFORMED BY: [facility] [id number] RoadDublin [place] [id number] PT Coag (PPP) [Time] 10.3 s Normal 9.1-12.0 [facility] rehensive Internal Medicine; [facility] Work Phone: Comment on above: PATIENT WAS FASTINGP ERFORMED BY: Welspun EnergyHarry S. [facility] [id number]Dublin [place] [id number] PTT (Activated Partial Throm boplastin Time) ([id number])Ordered By: Plastics Repairer on 10-19-2019 aPTT Coag (PPP) [Time] 27 {sec} Normal 24-33 [facility] Work Phone: Comment on above: This test has not be en validated for monitoring unfractionated heparintherapy. aPTT-based therapeutic ranges for unfractionated heparintherapy have not been established. For general guidelines onHeparin monitoring, refer to the [employer] Directory of Services. PATIENT WAS FASTINGP ERFORMED BY: Welspun EnergyHarry S. [facility] [id number] [address]Dublin [place] [id number] aPTT Coag (PPP) [Time] 27 s Normal 24-33 [facility]; [facility] Internal Medicine Work Phone: Comment on above: This test has not be en validated for monitoring unfractionated heparintherapy. aPTT-based therapeutic ranges for unfractionated heparintherapy have not been established. For general guidelines onHeparin monitoring, refer to the [facility]Harry [facility]. [facility] Directory of Services. PATIENT WAS FASTINGP ERFORMED BY: Welspun EnergyHarry S. [facility] [id number] RoadDublin [place] [id number] TSH ([id number])Ordered By: Tri m [employer] Management Professor on 10-19-2019 TSH Qn 2.700 {uIU/mL} Normal 0.450-4.50 0 [facility] Work Phone: Comment on above: PATIENT WAS FASTINGP ERFORMED BY: DEACON [facility] [id number] [facility] [id number] Operation-Procedureon 2016 Operation-Procedure [address] [id number] JOSIE LANDIS [facility] [id number] 1965DATE 02/26/2017OPERATIVE REPORT / PROCEDURE NOTESURGEON AMARJIT [...] with all vitals within normal postoperative limits.PREOPERATIVE INDICATIONSMsZack Landis is a 51-year-old white female presented to [...] the procedures or anesthesia as planned.DESCRIPTION OF PROCEDUREMsZack Landis was brought to the operating room, [...] deep closure was accomplished utilizing 3-0 Vicryl uwydkw-po-xduzoaqvw suture. The skin was then coapted and [...] for outpatient followup with my offices in [facility].DANI OCONNOR 03/16/2017 21:47 [id number] 03/16/2017 22:24 MF/MODLElectronically Signed By Michael Clement Dpm on 17 Mar 2017 14:32:13 GMT Normal [facility] SURGon 02-26-2017 BMI (Body Mass Index) Name: [...] one cassette. DS;lat (YOLA/lt) Electronically Signed By Bayfieldirving Shen MD , Pathologist (Case signed 03/02/2017) Normal [facility] VISUAL FIELD 30-2 OU (BOTH E YES) [facility] Vital Signs Date Time Vital Sign Value Performing Clinician Facility 11-24-2024 09:04-0400 Body height 170.[address] Solis Cool DO Work Phone: 11-24-2024 09:04-0400 Body mass index (BMI) [Ratio] 28.1 kg/m2 Dr. Solis Cool DO Work Phone: 11-24-2024 09:04-0400 Body weight 81.[address] Solis Cool DO Work Phone: 11-24-2024 09:04-0400 Diastolic blood pressure 86 mm[Hg] Dr. Solis Cool DO Work Phone: 11-24-2024 09:04-0400 Heart rate 71 /min Dr. Solis Cool DO Work Phone: 11-24-2024 09:04-0400 Respiratory rate 18 /min Dr. Solis Cool DO Work Phone: 11-24-2024 09:04-0400 SaO2% (BldA) [Mass fraction] 95 % Dr. Solis Cool DO Work Phone: 11-24-2024 09:04-0400 Systolic blood pressure 134 mm[Hg] Dr. Solis Cool DO Work Phone: 01-28-2024 13:45-0400 Body height 170.2 cm Tania Bonilla MD Work Phone: [facility] 01-28-2024 13:45-0400 Body mass index (BMI) [Ratio] 28.82 kg/m2 Tania Bonilla MD Work Phone: [facility] 01-28-2024 13:45-0400 Body weight 83.46 kg Tania Bonilla MD Work Phone: [facility] 01-28-2024 13:45-0400 Diastolic blood pressure 72 mm[Hg] Tania Bonilla MD Work Phone: [facility] 01-28-2024 13:45-0400 Heart rate 80 /min Tania Bonilla MD Work Phone: [facility] 01-28-2024 13:45-0400 Respiratory rate 20 /min Tania Bonilla MD Work Phone: [facility] 01-28-2024 13:45-0400 SaO2% (BldA) [Mass fraction] 96 % Tania Bonilla MD Work Phone: [facility] 01-28-2024 13:45-0400 Systolic blood pressure 139 mm[Hg] Tania Bonilla MD Work Phone: [facility] 07-21-2023 09:39-0400 Body height 170.2 cm Harlan Lozano MD Work Phone: [facility] 07-21-2023 09:39-0400 Body weight 87.09 kg Harlan Lozano MD Work Phone: [facility] 07-21-2023 09:39-0400 Diastolic blood pressure 93 mm[Hg] Harlan Lozano MD Work Phone: [facility] 07-21-2023 09:39-0400 Heart rate 64 /min Harlan Lozano MD Work Phone: [facility] 07-21-2023 09:39-0400 Systolic blood pressure 142 mm[Hg] Harlan Lozano MD Work Phone: [facility] 06-09-2023 10:15-0500 Body temperature 97.2 [degF] Jim Pinedo MD Work Phone: [facility] 06-09-2023 10:15-0500 Body weight 90.13 kg Jim Pinedo MD Work Phone: [facility] 06-09-2023 10:15-0500 Diastolic blood pressure 84 mm[Hg] Jim Pinedo MD Work Phone: [facility] 06-09-2023 10:15-0500 Heart rate 74 /min Jim Pinedo MD Work Phone: [facility] 06-09-2023 10:15-0500 Respiratory rate 20 /min Jim Pinedo MD Work Phone: [facility] 06-09-2023 10:15-0500 SaO2% (BldA) [Mass fraction] 99 % Jim Pinedo MD Work Phone: [facility] 06-09-2023 10:15-0500 Systolic blood pressure 133 mm[Hg] Jim Pinedo MD Work Phone: [facility] 03-30-2023 10:26-0500 Body height 170.2 cm Rich Gudino MD Work Phone: [facility] 03-30-2023 10:26-0500 Body weight 79.38 kg Rich Gudino MD Work Phone: [facility] 03-30-2023 10:26-0500 Diastolic blood pressure 65 mm[Hg] Rich Gudino MD Work Phone: [facility] 03-30-2023 10:26-0500 Heart rate 68 /min Rich Gudino MD Work Phone: [facility] 03-30-2023 10:26-0500 Systolic blood pressure 108 mm[Hg] Rich Gudino MD Work Phone: [facility] 03-22-2023 09:45-0500 Diastolic blood pressure 66 mm[Hg] Americo Phile PA-C Work Phone: [facility] 03-22-2023 09:45-0500 Heart rate 68 /min Americo Phile PA-C Work Phone: [facility] 03-22-2023 09:45-0500 Respiratory rate 14 /min Americo Phile PA-C Work Phone: [facility] 03-22-2023 09:45-0500 SaO2% (BldA) [Mass fraction] 97 % Americo Phile PA-C Work Phone: [facility] 03-22-2023 09:45-0500 Systolic blood pressure 119 mm[Hg] Americo Phile PA-C Work Phone: [facility] 03-22-2023 07:56-0500 Body temperature 98.01 [degF] Americo Phile PA-C Work Phone: [facility] 02-18-2023 14:10-0400 Body temperature 98.1 [degF] Codie Soto MD Work Phone: [facility] 02-18-2023 14:10-0400 Body weight 80.74 kg Codie Soto MD Work Phone: [facility] 02-18-2023 14:10-0400 Diastolic blood pressure 81 mm[Hg] Codie Soto MD Work Phone: [facility] 02-18-2023 14:10-0400 Heart rate 80 /min Codie Soto MD Work Phone: [facility] 02-18-2023 14:10-0400 Respiratory rate 18 /min Codie Soto MD Work Phone: [facility] 02-18-2023 14:10-0400 SaO2% (BldA) [Mass fraction] 98 % Codie Soto MD Work Phone: [facility] 02-18-2023 14:10-0400 Systolic blood pressure 130 mm[Hg] Codie Soto MD Work Phone: [facility] 01-12-2023 12:57-0400 Body temperature 97.11 [degF] Americo Haney DO Work Phone: [facility] 01-12-2023 12:57-0400 Body weight 82.56 kg Americo Haney DO Work Phone: [facility] 01-12-2023 12:57-0400 Diastolic blood pressure 59 mm[Hg] Americo Haney DO Work Phone: [facility] 01-12-2023 12:57-0400 Heart rate 69 /min Americo Haney DO Work Phone: [facility] 01-12-2023 12:57-0400 SaO2% (BldA) [Mass fraction] 99 % Americo Haney DO Work Phone: [facility] 01-12-2023 12:57-0400 Systolic blood pressure 99 mm[Hg] Americo Haney DO Work Phone: [facility] 01-12-2023 08:38-0400 Body height 170.2 cm Harlan Lozano MD Work Phone: [facility] 01-12-2023 08:38-0400 Body weight 82.56 kg Harlan Lozano MD Work Phone: [facility] 01-12-2023 08:38-0400 Diastolic blood pressure 59 mm[Hg] Harlan Lozano MD Work Phone: [facility] 01-12-2023 08:38-0400 Heart rate 69 /min Harlan Lozano MD Work Phone: [facility] 01-12-2023 08:38-0400 Systolic blood pressure 99 mm[Hg] Harlan Lozano MD Work Phone: [facility] 12-09-2022 10:07-0400 Body temperature 98.4 [degF] Codie Soto MD Work Phone: [facility] 12-09-2022 10:07-0400 Body weight 84.96 kg Codie Soto MD Work Phone: [facility] 12-09-2022 10:07-0400 Diastolic blood pressure 73 mm[Hg] Codie Soto MD Work Phone: [facility] 12-09-2022 10:07-0400 Heart rate 73 /min Codie Soto MD Work Phone: [facility] 12-09-2022 10:07-0400 Respiratory rate 18 /min Codie Soto MD Work Phone: [facility] 12-09-2022 10:07-0400 SaO2% (BldA) [Mass fraction] 98 % Codie Soto MD Work Phone: [facility] 12-09-2022 10:07-0400 Systolic blood pressure 117 mm[Hg] Codie Soto MD Work Phone: [facility] 11-27-2022 12:47-0400 Body weight 86.18 kg Rad Pro DO Work Phone: [facility] 11-27-2022 12:47-0400 Diastolic blood pressure 69 mm[Hg] Rad Pro DO Work Phone: [facility] 11-27-2022 12:47-0400 Heart rate 75 /min Rad Pro DO Work Phone: [facility] 11-27-2022 12:47-0400 Systolic blood pressure 124 mm[Hg] Rad Pro DO Work Phone: [facility] 11-26-2022 08:26-0400 Body height 170.18 cm [facility]; [facility] Work Phone: 11-26-2022 08:26-0400 Body mass index (BMI) [Ratio] 29.76 kg/m2 [facility]; [facility] Work Phone: 11-26-2022 08:26-0400 Body surface area Derived from formula 1.98 m2 [facility]; [facility] Work Phone: 11-26-2022 08:26-0400 Body temperature 96.2 [degF] [facility]; [facility] Work Phone: 11-26-2022 08:26-0400 Body weight 86.18 kg [facility]; [facility] Work Phone: 11-26-2022 08:26-0400 Diastolic blood pressure 76 mm[Hg] [facility]; [facility] Work Phone: Comment on above: Patient Position: Sitting; Cuff Location : Left Arm; Cuff Size: Standard 11-26-2022 08:26-0400 Heart rate 62 /min Fran Valera BID CLERK [facility]; [facility] Work Phone: Comment on above: Pattern: Regular 11-26-2022 08:26-0400 Respiratory rate 16 /min Fran Grimesr BID CLERK [facility]; [facility] Work Phone: Comment on above: Pattern: Unlabored 11-26-2022 08:26-0400 SaO2% (BldA) [Mass fraction] 95 % Fran Pruittyor [facility]; [facility] Work Phone: Comment on above: Room air 11-26-2022 08:26-0400 Systolic blood pressure 122 mm[Hg] Fran Pruittyor [facility]; [facility] Work Phone: Comment on above: Patient Position: Sitting; Cuff Location : Left Arm; Cuff Size: Standard 11-12-2022 09:54-0400 Body height 167.6 cm Codie Soto MD Work Phone: [facility] 11-12-2022 09:54-0400 Body temperature 98.4 [degF] Codie Soto MD Work Phone: [facility] 11-12-2022 09:54-0400 Body weight 83.46 kg Codie Soto MD Work Phone: [facility] 11-12-2022 09:54-0400 Diastolic blood pressure 73 mm[Hg] Codie Soto MD Work Phone: [facility] 11-12-2022 09:54-0400 Heart rate 71 /min Codie Soto MD Work Phone: [facility] 11-12-2022 09:54-0400 Respiratory rate 18 /min Codie Soto MD Work Phone: [facility] 11-12-2022 09:54-0400 SaO2% (BldA) [Mass fraction] 99 % Codie Soto MD Work Phone: [facility] 11-12-2022 09:54-0400 Systolic blood pressure 138 mm[Hg] Codie Soto MD Work Phone: [facility] 11-02-2022 10:19-0400 Body height 171.5 cm Pacc 1 Work Phone: [facility] 11-02-2022 10:19-0400 Body temperature 97.39 [degF] Pacc 1 Work Phone: [facility] 11-02-2022 10:19-0400 Body weight 82.83 kg Pacc 1 Work Phone: [facility] 11-02-2022 10:19-0400 Diastolic blood pressure 74 mm[Hg] Pacc 1 Work Phone: [facility] 11-02-2022 10:19-0400 Heart rate 63 /min Pacc 1 Work Phone: [facility] 11-02-2022 10:19-0400 SaO2% (BldA) [Mass fraction] 98 % Pacc 1 Work Phone: [facility] 11-02-2022 10:19-0400 Systolic blood pressure 114 mm[Hg] Pacc 1 Work Phone: [facility] 10-27-2022 11:42-0400 Body height 169.5 cm Carlos Jovel MD Work Phone: [facility] 10-27-2022 11:42-0400 Body temperature 97.9 [degF] Carlos Jovel MD Work Phone: [facility] 10-27-2022 11:42-0400 Body weight 83.6 kg Carlos Jovel MD Work Phone: [facility] 10-27-2022 11:42-0400 Diastolic blood pressure 87 mm[Hg] Carlos Jovel MD Work Phone: [facility] 10-27-2022 11:42-0400 Heart rate 62 /min Carlos Jovel MD Work Phone: [facility] 10-27-2022 11:42-0400 Respiratory rate 18 /min Carlos Jovel MD Work Phone: [facility] 10-27-2022 11:42-0400 SaO2% (BldA) [Mass fraction] 98 % Carlos Jovel MD Work Phone: [facility] 10-27-2022 11:42-0400 Systolic blood pressure 137 mm[Hg] Carlos Jovel MD Work Phone: [facility] 10-16-2022 10:54-0400 Body height 170.18 cm Solis [...] 170.[address] Solis Cool Work Phone: 10-05-2022 10:05-0400 Body mass index (BMI) [Ratio] 28.1 kg/m2 Dr. Solis Cool Work Phone: 10-05-2022 10:05-0400 Body weight 81.[address] Solis Cool Work Phone: 10-05-2022 10:05-0400 Diastolic blood pressure 76 mm[Hg] Dr. Solis Cool Work Phone: 10-05-2022 10:05-0400 Heart rate 72 /min Dr. Solis Cool Work Phone: 10-05-2022 10:05-0400 Respiratory rate 18 /min Dr. Solis Cool Work Phone: 10-05-2022 10:05-0400 SaO2% (BldA) [Mass fraction] 96 % Dr. Solis Cool Work Phone: 10-05-2022 10:05-0400 Systolic blood pressure 116 mm[Hg] Dr. Solis Cool Work Phone: 09-02-2022 10:39-0400 Body height 170.18 cm [facility]; [facility] Work Phone: 09-02-2022 10:39-0400 Body mass index (BMI) [Ratio] 26.78 kg/m2 [facility]; [facility] Work Phone: 09-02-2022 10:39-0400 Body surface area Derived from formula 1.89 m2 [facility]; [facility] Work Phone: 09-02-2022 10:39-0400 Body weight 77.57 kg [facility]; [facility] Work Phone: 09-02-2022 10:39-0400 Diastolic blood pressure 86 mm[Hg] [facility]; [facility] Work Phone: Comment on above: Patient Position: Sitting; Cuff Location : Left Arm; Cuff Size: Standard 09-02-2022 10:39-0400 SaO2% (BldA) [Mass fraction] 96 % [facility]; [facility] Work Phone: Comment on above: Room air 09-02-2022 10:39-0400 Systolic blood pressure 121 mm[Hg] [facility]; [facility] Work Phone: Comment on above: Patient Position: Sitting; Cuff Location : Left Arm; Cuff Size: Standard 08-25-2022 11:04-0400 Body height 170.2 cm Rad Aradine DO Work Phone: [facility] 08-25-2022 11:04-0400 Body temperature 98.01 [degF] Rad Aradine DO Work Phone: [facility] 08-25-2022 11:04-0400 Body weight 78.25 kg Rad Aradine DO Work Phone: [facility] 08-25-2022 11:04-0400 Diastolic blood pressure 75 mm[Hg] Rad Aradine DO Work Phone: [facility] 08-25-2022 11:04-0400 Heart rate 65 /min Rad Aradine DO Work Phone: [facility] 08-25-2022 11:04-0400 Respiratory rate 14 /min Rad Aradine DO Work Phone: [facility] 08-25-2022 11:04-0400 SaO2% (BldA) [Mass fraction] 97 % Rad Aradine DO Work Phone: [facility] 08-25-2022 11:04-0400 Systolic blood pressure 127 mm[Hg] Rad Aradine DO Work Phone: [facility] 06-24-2022 15:49-0500 Body height 170.2 cm Rad Aradine DO Work Phone: [facility] 06-24-2022 15:49-0500 Body temperature 96.8 [degF] Rad Aradine DO Work Phone: [facility] 06-24-2022 15:49-0500 Body weight 78.02 kg Rad Aradine DO Work Phone: [facility] 06-24-2022 15:49-0500 Diastolic blood pressure 74 mm[Hg] Rad Aradine DO Work Phone: [facility] 06-24-2022 15:49-0500 Heart rate 60 /min Rad Aradine DO Work Phone: [facility] 06-24-2022 15:49-0500 Respiratory rate 14 /min Rad Aradine DO Work Phone: [facility] 06-24-2022 15:49-0500 SaO2% (BldA) [Mass fraction] 100 % Rad Aradine DO Work Phone: [facility] 06-24-2022 15:49-0500 Systolic blood pressure 110 mm[Hg] Rad Aradine DO Work Phone: [facility] 06-19-2022 15:01-0500 Body height 170.18 cm [facility]; [facility] Work Phone: 06-19-2022 15:01-0500 Body mass index (BMI) [Ratio] 27.58 kg/m2 [facility]; [facility] Work Phone: 06-19-2022 15:01-0500 Body surface area Derived from formula 1.92 m2 [facility]; [facility] Work Phone: 06-19-2022 15:01-0500 Body temperature 96.9 [degF] [facility]; [facility] Work Phone: 06-19-2022 15:01-0500 Body weight 79.89 kg [facility]; [facility] Work Phone: 06-19-2022 15:01-0500 Diastolic blood pressure 68 mm[Hg] Darryl [facility]; [facility] Work Phone: Comment on above: Patient Position: Sitting; Cuff Location : Left Arm; Cuff Size: Standard 06-19-2022 15:01-0500 Heart rate 65 /min [facility]omaSt[facility]; [facility] Work Phone: Comment on above: Pattern: Regular 06-19-2022 15:01-0500 Respiratory rate 16 /min [facility] KoromaSt[facility] Comprehens[facility] e Internal [facility]; [facility] Work Phone: Comment on above: Pattern: Unlabored 06-19-2022 15:01-0500 SaO2% (BldA) [Mass fraction] 96 % [facility] centere[facility]; [facility] Work Phone: Comment on above: Room air 06-19-2022 15:01-0500 Systolic blood pressure 114 mm[Hg] [facility]; [facility] Work Phone: Comment on above: Patient Position: Sitting; Cuff Location : Left Arm; Cuff Size: Standard 06-09-2022 15:29-0500 Body height 170.[address] Solis Cool Work Phone: 06-09-2022 15:29-0500 Body weight 81.[address] Solis Cool Work Phone: 06-09-2022 14:54-0500 Body temperature 97.6 [degF] Dr. Solis Cool Work Phone: 06-09-2022 14:54-0500 Diastolic blood pressure 71 mm[Hg] Dr. Solis Cool Work Phone: 06-09-2022 14:54-0500 Heart rate 63 /min Dr. Solis Cool Work Phone: 06-09-2022 14:54-0500 Respiratory rate 20 /min Dr. Solis Cool Work Phone: 06-09-2022 14:54-0500 SaO2% (BldA) [Mass fraction] 99 % Dr. Solis Cool Work Phone: 06-09-2022 14:54-0500 Systolic blood pressure 123 mm[Hg] Dr. Solis Cool Work Phone: 06-09-2022 12:25-0500 Body mass index (BMI) [Ratio] 27.3 kg/m2 Dr. Solis Cool Work Phone: 06-08-2022 19:11-0500 Body temperature 98.1 [degF] Dr. Solis Cool Work Phone: 06-08-2022 19:11-0500 Diastolic blood pressure 63 mm[Hg] Dr. Solis Cool Work Phone: 06-08-2022 19:11-0500 Heart rate 70 /min Dr. Solis Cool Work Phone: 06-08-2022 19:11-0500 Respiratory rate 26 /min Dr. Solis Cool Work Phone: 06-08-2022 19:11-0500 SaO2% (BldA) [Mass fraction] 98 % Dr. Solis Cool Work Phone: 06-08-2022 19:11-0500 Systolic blood pressure 129 mm[Hg] Dr. Solis Cool Work Phone: 06-08-2022 12:28-0500 Body height 170.[address] Solis Cool Work Phone: 06-08-2022 12:28-0500 Body mass index (BMI) [Ratio] 27.3 kg/m2 Dr. Solis Cool Work Phone: 06-08-2022 12:28-0500 Body weight 79.[address] Solis Cool Work Phone: 06-02-2022 07:36-0500 Body height 170.[address] Solis Cool Work Phone: 06-02-2022 07:36-0500 Body mass index (BMI) [Ratio] 26.9 kg/m2 Dr. Solis Cool Work Phone: 06-02-2022 07:36-0500 Body temperature 97.9 [degF] Dr. Solis Cool Work Phone: 06-02-2022 07:36-0500 Body weight 78.[address] Solis Cool Work Phone: 06-02-2022 07:36-0500 Diastolic blood pressure 79 mm[Hg] Dr. Solis Cool Work Phone: 06-02-2022 07:36-0500 Heart rate 58 /min Dr. Solis Cool Work Phone: 06-02-2022 07:36-0500 Respiratory rate 16 /min Dr. Solis Cool Work Phone: 06-02-2022 07:36-0500 SaO2% (BldA) [Mass fraction] 95 % Dr. Solis Cool Work Phone: 06-02-2022 07:36-0500 Systolic blood pressure 103 mm[Hg] Dr. Solis Cool Work Phone: 06-02-2022 06:26-0500 Heart rate 58 /min Dr. Solis Cool Work Phone: 06-02-2022 06:21-0500 Body temperature 97.6 [degF] Dr. Solis Cool Work Phone: 06-02-2022 06:21-0500 Diastolic blood pressure 56 mm[Hg] Dr. Solis Cool Work Phone: 06-02-2022 06:21-0500 Respiratory rate 18 /min Dr. Solis Cool Work Phone: 06-02-2022 06:21-0500 SaO2% (BldA) [Mass fraction] 94 % Dr. Solis Cool Work Phone: 06-02-2022 06:21-0500 Systolic blood pressure 92 mm[Hg] Dr. Solis Cool Work Phone: 06-02-2022 05:09-0500 Body height 170.[address] Solis Cool Work Phone: 06-02-2022 05:09-0500 Body mass index (BMI) [Ratio] 27.1 kg/m2 Dr. Solis Cool Work Phone: 06-02-2022 05:09-0500 Body weight 78.[address] Solis Cool Work Phone: 05-27-2022 12:04-0500 Body height 170.18 cm Rachel Mason LPN [facility]; [facility] Internal Medicine Work Phone: 05-27-2022 12:04-0500 Body mass index (BMI) [Ratio] 26.94 kg/m2 Rachel Mason LPN [facility]; [facility] Work Phone: 05-27-2022 12:04-0500 Body surface area Derived from formula 1.9 m2 Rachel Mason BID CLERK [facility]; [facility] Work Phone: 05-27-2022 12:04-0500 Body temperature 96.7 [degF] Rachel Vanegasrb BID CLERK [facility]; [facility] Work Phone: Comment on above: Method: Temporal 05-27-2022 12:04-0500 Body weight 78.02 kg Rachel Mason BID CLERK [facility]; [facility] Work Phone: 05-27-2022 12:04-0500 Diastolic blood pressure 80 mm[Hg] Rachel Rominarb BID CLERK [facility]; [facility] Work Phone: Comment on above: Patient Position: Sitting; Cuff Location : Left Arm; Cuff Size: Standard 05-27-2022 12:04-0500 Heart rate 68 /min Rachel Vanegasrb BID CLERK [facility]; [facility] Work Phone: Comment on above: Pattern: Regular 05-27-2022 12:04-0500 Respiratory rate 17 /min Rachel Vanegasrb BID CLERK [facility]; [facility] Work Phone: Comment on above: Pattern: Unlabored 05-27-2022 12:04-0500 SaO2% (BldA) [Mass fraction] 98 % Rachel Rominarb BID CLERK [facility]; [facility] Work Phone: Comment on above: Room air 05-27-2022 12:04-0500 Systolic blood pressure 120 mm[Hg] Rachel Vanegasrb BID CLERK [facility]; [facility] Work [...] Medicine; [facility] Work Phone: 10-10-2021 12:0400 Body surface area Derived from formula 1.[address] [facility]; [facility] Work Phone: 10-10-2021 12:040 Body temperature 97.3 [degF] Shonna Aguirre CMA [facility]; [facility] Work Phone: Comment on above: Method: Infrared 10-10-2021 12:0400 Body weight 78.[address] [facility]; [facility] Work Phone: 10-10-2021 [id number] Diastolic blood pressure 90 mm[Hg] Shonna Aguirre [facility]; [facility] Work Phone: Comment on above: Patient Position: Sitting; Cuff Location : Left Arm; Cuff Size: Standard 10-10-2021 12:210400 Heart rate 77 /min Shonna Aguirre [facility]; [facility] Work Phone: Comment on above: Pattern: Regular 10-10-2021 12:21-0400 Respiratory rate 18 /min Shonna Aguirre CMA [facility]; [facility] Work Phone: Comment on above: Pattern: Unlabored 10-10-2021 12:21-0400 SaO2% (BldA) [Mass fraction] 97 % Shonna Aguirre [facility]; [facility] Work Phone: Comment on above: Room air 10-10-2021 12:21-0400 Systolic blood pressure 120 mm[Hg] Shonna Aguirre [facility]; [facility] Work Phone: Comment on above: Patient Position: Sitting; Cuff Location : Left Arm; Cuff Size: Standard 10-08-2021 20:00-0400 Diastolic blood pressure 74 mm[Hg] Work Phone: 10-08-2021 20:00-0400 Heart rate 61 /min [facility] Work Phone: 10-08-2021 20:00-0400 Respiratory rate 14 /min [facility] Work Phone: 10-08-2021 20:00-0400 SaO2% (BldA) [Mass fraction] 96 % Work Phone: 10-08-2021 20:00-0400 Systolic blood pressure 126 mm[Hg] Work Phone: 10-08-2021 16:23-0400 Body height 171.45 cm [facility] Work Phone: 10-08-2021 16:23-0400 Body mass index (BMI) [Ratio] 27.5 kg/m2 Work Phone: 10-08-2021 16:23-0400 Body temperature 98.4 [degF] [facility] Work Phone: 10-08-2021 16:23-0400 Body weight 81 kg [facility] Work Phone: 09-19-2021 08:26-0400 Body height 170.18 cm Rachel Mason [facility]; [facility] Work Phone: 09-19-2021 08:26-0400 Body mass index (BMI) [Ratio] 27.26 kg/m2 Rachel Slarb BID CLERK [facility]; [facility] Work Phone: 09-19-2021 08:26-0400 Body surface area Derived from formula 1.91 m2 Rachel Mason BID CLERK [facility]; [facility] Work Phone: 09-19-2021 08:26-0400 Body temperature 97.1 [degF] Rachel Slarb BID CLERK [facility]; [facility] Work Phone: 09-19-2021 08:26-0400 Body weight 78.95 kg Rachel Vanegasrb BID CLERK [facility]; [facility] Work Phone: 09-19-2021 08:26-0400 Diastolic blood pressure 72 mm[Hg] Rachel Slarb BID CLERK [facility]; [facility] Work Phone: Comment on above: Patient Position: Sitting; Cuff Location : Left Arm; Cuff Size: Standard 09-19-2021 08:26-0400 Heart rate 67 /min Rachel Slarb BID CLERK [facility]; [facility] Work Phone: Comment on above: Pattern: Regular 09-19-2021 08:26-0400 Respiratory rate 17 /min Rachel Rominarb BID CLERK [facility]; [facility] Work Phone: Comment on above: Pattern: Unlabored 09-19-2021 08:26-0400 SaO2% (BldA) [Mass fraction] 97 % Rachel Slarb BID CLERK [facility]; [facility] Work Phone: Comment on above: Room air 09-19-2021 08:26-0400 Systolic blood pressure 116 mm[Hg] Rachel Slarb BID CLERK [facility]; [facility] Work Phone: Comment on above: Patient Position: Sitting; Cuff Location : Left Arm; Cuff Size: Standard 03-14-2021 09:01-0500 Body height 170.18 cm Lulú Merrill MA [...] Standard 09-18-2020 08:39-0400 Body height 170.18 cm [facility]; [facility] Work Phone: 09-18-2020 08:39-0400 Body mass index (BMI) [Ratio] 27.42 kg/m2 [facility]; [facility] Work Phone: 09-18-2020 08:39-0400 Body surface area Derived from formula 1.91 m2 [facility]; [facility] Work Phone: 09-18-2020 08:39-0400 Body weight 79.4 kg Radha Mcadams LPN [facility]; [facility] [...] 12:58-0500 Respiratory Rate 16 /min Tio Kirkpatrick LPN [facility]; [facility] Work Phone: Comment on above: Pattern: Unlabored 07-08-2020 12:58-0500 SaO2% (BldA) [Mass fraction] 97 % Tio Kirkpatrick LPN [facility]; [facility] Work Phone: Comment on above: Room air 07-04-2020 11:57-0500 BMI (Body Mass Index) 26.47 kg/m2 Shonna Aguirre [facility]; [facility] Work Phone: 07-04-2020 11:57-0500 Body weight 76.[address] [facility]; [facility] Work Phone: 07-04-2020 11:57-0500 BSA (Body Surface Area) 1.[address] [facility]; [facility] Work Phone: 07-04-2020 11:57-0500 Height 170.[address] [facility]; [facility] Work Phone: 07-03-2020 09:18-0500 BMI (Body Mass Index) 26.47 kg/m2 Shonna Craigius [facility]; [facility] Work Phone: 07-03-2020 09:18-0500 Body Temperature 97.3 [degF] Shonna Aguirre [facility]; [facility] Work Phone: Comment on above: Method: Infrared 07-03-2020 09:18-0500 Body weight 76.[address] [facility]; [facility] Work Phone: 07-03-2020 09:18-0500 BP Diastolic 80 mm[Hg] Shonna Aguirre [facility]; [facility] Work Phone: Comment on above: Patient Position: Sitting; Cuff Location : Left Arm; Cuff Size: Standard 07-03-2020 09:18-0500 BP Systolic 122 mm[Hg] Shonna Aguirre CMA [facility]; [facility] Work Phone: Comment on above: Patient Position: Sitting; Cuff Location : Left Arm; Cuff Size: Standard 07-03-2020 09:18-0500 BSA (Body Surface Area) 1.88 m2 Shonna Aguirre CMA [facility]; [facility] Work Phone: 07-03-2020 09:18-0500 Height 170.18 cm Shonna Aguirre SENIOR DIRECTOR [facility]; [facility] Work Phone: 07-03-2020 09:18-0500 Pulse (Heart Rate) 81 /min Shonna Aguirre SENIOR DIRECTOR [facility]; [facility] Work Phone: Comment on above: Pattern: Regular 07-03-2020 09:18-0500 Pulse Oximetry 96 % Solis Cool [facility]; [facility] Work Phone: Comment on above: Room air 07-03-2020 09:18-0500 Respiratory Rate 16 /min Shonna Aguirre CMA [facility]; [facility] Work Phone: Comment on above: Pattern: Unlabored 07-03-2020 09:18-0500 SaO2% (BldA) [Mass fraction] 96 % Shonna Aguirre [facility]; [facility] Work Phone: Comment on above: Room air 07-01-2020 15:20-0500 BMI (Body Mass Index) 26.47 kg/m2 Shonna Aguirre SENIOR DIRECTOR [facility]; [facility] Work Phone: 07-01-2020 15:20-0500 Body Temperature 97.5 [degF] Shonna Aguirre CMA [facility]; [facility] Work Phone: Comment on above: Method: Infrared 07-01-2020 15:20-0500 Body weight 76.66 kg Shonna Aguirre SENIOR DIRECTOR [facility]; [facility] Work Phone: 07-01-2020 15:20-0500 BP Diastolic 100 mm[Hg] Shonna Aguirre [facility]; [facility] Work Phone: Comment on above: Patient Position: Sitting; Cuff Location : Left Arm; Cuff Size: Standard 07-01-2020 15:20-0500 BP Systolic 152 mm[Hg] Shonna Aguirre [facility]; [facility] Work Phone: Comment on above: Patient Position: Sitting; Cuff Location : Left Arm; Cuff Size: Standard 07-01-2020 15:20-0500 BSA (Body Surface Area) 1.[address] [facility]; [facility] Work Phone: 07-01-2020 15:20-0500 Height 170.[address] [facility]; [facility] Work Phone: 07-01-2020 15:20-0500 Pulse (Heart Rate) 88 /min Shonna Aguirre [facility]; [facility] Work Phone: Comment on above: Pattern: Regular 07-01-2020 15:20-0500 Pulse Oximetry 96 % [employer]is Cool [facility]; [facility] Work Phone: Comment on above: Room air 07-01-2020 15:20-0500 Respiratory Rate 16 /min Shonna Aguirre [facility]; [facility] Work Phone: Comment on above: Pattern: Unlabored 07-01-2020 15:20-0500 SaO2% (BldA) [Mass fraction] 96 % Shonna Aguirre [facility]; [facility] Work Phone: Comment on above: Room air 06-28-2020 09:32-0500 BMI (Body Mass Index) 26.47 kg/m2 Rachel Mason [facility]; [facility] Work Phone: 06-28-2020 09:32-0500 Body Temperature 97.5 [degF] Rachel Mason BID CLERK [facility]; [facility] Work Phone: 06-28-2020 09:32-0500 Body weight 76.66 kg Rachel Slarb BID CLERK [facility]; [facility] Work Phone: 06-28-2020 09:32-0500 BP Diastolic 82 mm[Hg] Rachel Slarb BID CLERK [facility]; [facility] Work Phone: Comment on above: Patient Position: Sitting; Cuff Location : Left Arm; Cuff Size: Standard 06-28-2020 09:32-0500 BP Systolic 126 mm[Hg] Rachel Slarb BID CLERK [facility]; [facility] Work Phone: Comment on above: Patient Position: Sitting; Cuff Location : Left Arm; Cuff Size: Standard 06-28-2020 09:32-0500 BSA (Body Surface Area) 1.88 m2 Rachel Vanegasrb BID CLERK [facility]; [facility] Work Phone: 06-28-2020 09:32-0500 Height 170.18 cm Rachel Rominarb BID CLERK [facility]; [facility] Work Phone: 06-28-2020 09:32-0500 Pulse (Heart Rate) 83 /min Rachel Vanegasrb BID CLERK [facility]; [facility] Work Phone: Comment on above: Pattern: Regular 06-28-2020 09:32-0500 Pulse Oximetry 95 % [employer] Cool [facility]; [facility] Work Phone: Comment on above: Room air 06-28-2020 09:32-0500 Respiratory Rate 16 /min Rachel Slarb BID CLERK [facility]; [facility] Work Phone: Comment on above: Pattern: Unlabored 06-28-2020 09:32-0500 SaO2% (BldA) [Mass fraction] 95 % Rachel Slarb BID CLERK [facility]; [facility] Work Phone: Comment on above: Room air 04-12-2020 09:46-0500 Body Temperature 98.2 [degF] Solis Cool DO Work Phone: [facility]; [facility] Work Phone: Comment on above: Method: Oral her normal temp is 9 6-97.8 04-12-2020 09:46-0500 Body weight 74.84 kg Solis Cool [...] 03-18-2020 11:00-0500 BP Systolic 120 mm[Hg] Solis Rtavon DO Work Phone: [facility] Work Phone: Comment on above: Patient Position: Sitting 03-18-2020 11:00-0500 Pulse (Heart Rate) 86 /min Solis Cool DO Work Phone: [facility] [...] 03-04-2020 13:46-0500 BP Systolic 120 mm[Hg] Tio Casimiro BID CLERK [facility] Work Phone: Comment on above: Patient Position: Sitting; Cuff Location : Left Arm; Cuff Size: Standard 03-04-2020 13:46-0500 BSA (Body Surface Area) 1.81 m2 Tio Kirkpatrick [facility] Internal Medicine Work Phone: 03-04-2020 13:46-0500 Height 170.18 cm Tio Kirkpartick [facility] Internal Medicine Work Phone: 03-04-2020 13:46-0500 Pulse (Heart Rate) 87 /min Tio Kirkpatrick [facility] Comprehensiv e Internal Medicine Work Phone: Comment on above: Pattern: Regular 03-04-2020 13:46-0500 Pulse Oximetry 96 % Solis Travon [facility] Internal Medicine Work Phone: Comment on above: Room air 03-04-2020 13:46-0500 Respiratory Rate 17 /min Tio Kirkpatrick [facility] Internal Medicine Work Phone: Comment on above: Pattern: Unlabored 03-04-2020 13:46-0500 SaO2% (BldA) [Mass fraction] 96 % Tio Kirkpatrick [facility]; [facility] Work Phone: Comment on above: Room air 02-29-2020 10:48-0400 BMI (Body Mass Index) 24.28 kg/m2 [facility] Internal Medicine Work Phone: 02-29-2020 10:48-0400 Body Temperature 99.6 [degF] [facility] Work Phone: Comment on above: Method: Thermal Scan 02-29-2020 10:48-0400 Body weight 70.31 kg [facility] Work Phone: 02-29-2020 10:48-0400 BSA (Body Surface Area) 1.81 m2 [facility] Work Phone: 02-29-2020 10:48-0400 Height 170.18 cm [facility] Internal Medicine Work Phone: 02-29-2020 10:10-0400 BMI (Body Mass Index) 24.28 kg/m2 Shonna Aguirre [facility] Work Phone: Comment on above: no vs taken as this is phone encounter d ue to covid 02-29-2020 10:10-0400 Body weight 70.31 kg Shonna Aguirre [facility] Work Phone: Comment on above: no vs taken as this is phone encounter d ue to covid 02-29-2020 10:100400 BSA (Body Surface Area) 1.[address] [facility] Work Phone: Comment on above: no vs taken as this is phone encounter d ue to covid 02-29-2020 10:100400 Height 170.18 cm Shonna Aguirre [facility] Work Phone: Comment on above: no vs taken as this is phone encounter d ue to covid 02-22-2020 10:110400 BMI (Body Mass Index) 24.28 kg/m2 Teagan Gillette [facility] Internal Medicine Work Phone: Comment on above: reported by pt 02-22-2020 10:11-0400 Body Temperature 97.9 [degF] Teaganreji Gillette [facility] Internal Medicine Work Phone: Comment on above: Method: Temporal reported by pt 02-22-2020 10:110400 Body weight 70.31 kg [facility] Internal Medicine Work Phone: Comment on above: reported by pt 02-22-2020 10:11-0400 BP Diastolic 81 mm[Hg] Teagan Leta [facility] Internal Medicine Work Phone: Comment on above: Patient Position: Sitting; Cuff Location : Left Arm; Cuff Size: Standard reported by pt 02-22-2020 10:11-0400 BP Systolic 130 mm[Hg] Teagan Gillette [facility] Internal Medicine Work Phone: Comment on above: Patient Position: Sitting; Cuff Location : Left Arm; Cuff Size: Standard reported by pt 02-22-2020 10:11-0400 BSA (Body Surface Area) 1.81 m2 Teagan Gillette BID CLERK [facility] Work Phone: Comment on above: reported by pt 02-22-2020 10:110400 Height 170.18 cm Teagan Gillette [facility] Internal Medicine Work Phone: Comment on above: reported by pt 02-05-2020 09:19-0400 BMI (Body Mass Index) 25.06 kg/m2 Tio Kirkpatrick [facility] Internal Medicine Work Phone: 02-05-2020 09:19-0400 Body Temperature 97.6 [degF] Tio Kirkpatrick [facility] Internal Medicine Work Phone: Comment on above: Method: Oral 02-05-2020 09:0400 Body weight 72.58 kg Tio Kirkpatrick [facility] Internal Medicine Work Phone: 02-05-2020 09:19-0400 BP Diastolic 76 mm[Hg] Tio Kirkpatrick [facility] Internal Medicine Work Phone: Comment on above: Patient Position: Sitting; Cuff Location : Left Arm; Cuff Size: Standard 02-05-2020 09:19-0400 BP Systolic 122 mm[Hg] Tio Kirkpatrick [facility] Internal Medicine Work Phone: Comment on above: Patient Position: Sitting; Cuff Location : Left Arm; Cuff Size: Standard 02-05-2020 09:19-0400 BSA (Body Surface Area) 1.84 m2 Tio Kirkpatrick [facility] Internal Medicine Work Phone: 02-05-2020 09:0400 Height 170.18 cm Tio Kirkpatrick [facility] Internal Medicine Work Phone: 12-14-2019 12:23-0400 BMI (Body Mass Index) 25.06 kg/m2 Shonna Gravius [facility] Work Phone: 12-14-2019 12:23-0400 Body weight 72.[address] [facility] Work Phone: 12-14-2019 12:23-0400 BSA (Body Surface Area) 1.[address] [facility] Work Phone: 12-14-2019 12:23-0400 Height 170.[address] [facility] Work Phone: 11-08-2019 12:02-0400 BMI (Body Mass Index) 25.06 kg/m2 Tio Kirkpatrick LPN [facility] Work Phone: 11-08-2019 12:02-0400 Body weight 72.58 kg Tio Kirkpatrick LPN [facility] Work Phone: 11-08-2019 12:02-0400 BP Diastolic 82 mm[Hg] Tio Kirkpatrick LPN [facility] Work Phone: Comment on above: Patient Position: Sitting; Cuff Location : Left Arm; Cuff Size: Standard 11-08-2019 12:02-0400 BP Systolic 127 mm[Hg] Tio Kirkpatrick LPN [facility] Internal Medicine Work Phone: Comment on above: Patient Position: Sitting; Cuff Location : Left Arm; Cuff Size: Standard 11-08-2019 12:02-0400 BSA (Body Surface Area) 1.84 m2 Tio Kirkpatrick LPN [facility] Work Phone: 11-08-2019 12:02-0400 Height 170.18 cm Tio Kirkpatrick LPN [facility] Work Phone: 11-08-2019 12:02-0400 Pulse (Heart Rate) 85 /min Tio Kirkpatrick LPN [facility] Work Phone: Comment on above: Pattern: Regular 11-08-2019 12:02-0400 Pulse Oximetry 97 % Solis Cool [facility] Internal Medicine Work Phone: Comment on above: Room air 11-08-2019 12:02-0400 Respiratory Rate 16 /min Tio Kirkpatrick LPN [facility] Work Phone: Comment on above: Pattern: Unlabored 11-08-2019 12:02-0400 SaO2% (BldA) [Mass fraction] 97 % Tio Kirkpatrick LPN [facility] Internal Medicine; [facility] Work Phone: Comment on above: Room air 10-30-2019 09:50-0400 BMI (Body Mass Index) 25.53 kg/m2 Shonna Aguirre [facility] Work Phone: Comment on above: no vs taken as this is phone encounter d ue to covid 10-30-2019 09:50-0400 Body weight 73.[address] [facility] Work Phone: Comment on above: no vs taken as this is phone encounter d ue to covid 10-30-2019 09:50-0400 BSA (Body Surface Area) 1.[address] [facility] Work Phone: Comment on above: no vs taken as this is phone encounter d ue to covid 10-30-2019 09:50-0400 Height 170.[address] [facility] Work Phone: Comment on above: no vs taken as this is phone encounter d ue to covid 10-18-2019 13:54-0400 BMI (Body Mass Index) 25.53 kg/m2 Shonna Craigius [facility] Work Phone: 10-18-2019 13:54-0400 Body Temperature 97.3 [degF] Shonna Aguirre [facility] Comprehensiv e Internal Medicine Work Phone: Comment on above: Method: Temporal 10-18-2019 13:54-0400 Body weight 73.[address] [facility] Work Phone: 10-18-2019 13:54-0400 BP Diastolic 78 mm[Hg] Shonna Craigius [facility] Work Phone: Comment on above: Patient Position: Sitting; Cuff Location : Left Arm; Cuff Size: Standard 10-18-2019 13:54-0400 BP Systolic 128 mm[Hg] Shonna Craigius [facility] Work Phone: Comment on above: Patient Position: Sitting; Cuff Location : Left Arm; Cuff Size: Standard 10-18-2019 13:54-0400 BSA (Body Surface Area) 1.[address] [facility] Work Phone: 10-18-2019 13:54-0400 Height 170.[address] [facility] Work Phone: 10-18-2019 13:54-0400 Pulse (Heart Rate) 76 /min Shonna Aguirre SENIOR DIRECTOR [facility] Work Phone: Comment on above: Pattern: Regular 10-18-2019 13:54-0400 Pulse Oximetry 98 % Solis Cool [facility] Work Phone: Comment on above: Room air 10-18-2019 13:54-0400 Respiratory Rate 16 /min Shonna Aguirre SENIOR DIRECTOR Comprehensiv e Internal Medicine Work Phone: Comment on above: Pattern: Unlabored 10-18-2019 13:54-0400 SaO2% (BldA) [Mass fraction] 98 % Shonna Aguirre [facility]; [facility] Work Phone: Comment on above: Room air Encounters Encounter Date Encounter Type Care Provider Facility Start: 03-06-2025 End: 03-06-2025 Emergency department patient visit Dorian De La Rosa Facility: Start: 02-28-2025 End: 02-28-2025 [facility] Start: 02-15-2025 End: 02-15-2025 ambulatory Solis Cool Facility: Start: 01-25-2025 End: 01-25-2025 ambulatory TANIA BONILLA [facility] Start: 12-19-2024 ambulatory Solis Cool Facilit y:[facility] Start: 12-19-2024 Non-patient / Non-visit Dr. Thomas Of dottie SHEEHAN -[facility] Start: 12-19-2024 End: 12-19-[address] Solis Cool DO Work Phone: -Cardiovascular Services Start: 12-19-2024 End: 12-19-2024 Patient encounter procedure Russ DAVIS -Cardiovascular Services Work Phone: Start: 12-19-2024 End: 12-19-2024 ambulatory Solis Cool Facility: Start: 12-16-2024 End: 12-18-2024 Refill Tania Bonilla MD Work Phone: Neurology Comment on above: Refill Request Start: 11-24-2024 End: 11-24-2024 Patient encounter procedure Russ DAVIS -[facility] Work Phone: Start: 11-24-2024 End: 11-24-[address] Solis Cool DO Work Phone: -[facility] Start: 11-24-2024 End: 11-24-2024 ambulatory Solis Cool Facility: Start: 10-16-2024 End: 10-16-2024 Orders Only Codie Soto MD Work Phone: [facility] Comment on above: Brain lesion (Primar y Dx) Start: 10-13-2024 End: 10-13-2024 Telemedicine consultation with patient Codie Soto MD Work Phone: [facility] Start: 10-13-2024 End: 10-13-2024 ambulatory Codie Soto MD Work Phone: [facility] Comment on above: Brain lesion (Primar y Dx); Alexia; Paresthesia of both legs; Visual field defect; Blurry vision; Encounter for observation for suspected malignant neoplasm; Visual disturbance Start: 10-11-2024 End: 12-11-2024 Follow-up encounter Codie Soto MD Work Phone: [facility] Start: 10-11-2024 ambulatory CODIE SOTO Facility[facility] Start: 10-11-2024 End: 10-11-2024 Subsequent hospital visit by physician [facility] (I-Stat/1.5t) Work Phone: Radiology Comment on above: Brain lesion [G93.9] Start: 07-21-2024 End: 07-21-2024 ambulatory TANIA BONILLA Facility[facility] Start: 06-21-2024 End: 06-21-2024 ambulatory Tania Bonilla MD Work Phone: Neurology Comment on above: Recurrent seizures ( HCC) (Primary Dx) Start: 06-21-2024 End: 06-21-2024 Telemedicine consultation with patient Tania Bonilla MD Work Phone: Neurology Start: 04-24-2024 End: 04-24-2024 Orders Only Codie Soto MD Work Phone: Hematology/Oncology Comment on above: Brain lesion (Primar y Dx) Start: 04-14-2024 End: 04-14-2024 Telemedicine consultation with patient Codie Soto MD Work Phone: [facility] Start: 04-14-2024 End: 04-14-2024 ambulatory Codie Soto MD Work Phone: [facility] Comment on above: Brain lesion (Primar y Dx); Alexia; Seizures (HCC); Paresthesia of both legs; Lesion of brain; Confusion; Visual field defect; Speech disturbance, unspecified type; Neoplasm of uncertain behavior of brain, supratentorial (HCC); Brain mass Start: 04-12-2024 End: 04-12-2024 ambulatory SOLIS COOL Facility[facility] Start: 02-08-2024 End: 02-09-2024 ambulatory Codie Soto MD Work Phone: [facility] Comment on above: Question aire for di sability Start: 01-28-2024 End: 01-28-2024 Patient encounter procedure Tania Bonilla MD Work Phone: Neurology Comment on above: Seizures (HCC) Start: 01-26-2024 End: 01-26-2024 ambulatory Annamaria Ibarra APRN.CNP Work Phone: [facility] Comment on above: Brain lesion (Primar y Dx) Start: 01-26-2024 End: 01-26-2024 Telemedicine consultation with patient Annamaria Ibarra APRN.CNP Work Phone: [facility] Start: 01-17-2024 End: 01-17-2024 Subsequent hospital visit by physician [facility] (I-Stat/1.5t) Work Phone: Radiology Comment on above: Brain lesion [G93.9] Start: 12-22-2023 End: 12-22-2023 Patient encounter procedure Sujey Gama MD Work Phone: Neurology Comment on above: Seizures (HCC) (Prim anson Dx) Start: 12-03-2023 Orders Only Libertad linoer MECHANICAL ASSEMBLER.MARKETING AND OUTREACH COORDINATOR Work Phone: [facility] Comment on above: Seizures (HCC) (Prim anson Dx) Start: 12-02-2023 End: 12-02-2023 ambulatory Libertad Santiago MECHANICAL ASSEMBLER.MARKETING AND OUTREACH COORDINATOR Work Phone: Cerebrovascular Comment on above: Seizures (HCC) (Prim anson Dx); History of psychogenic nonepileptic seizure; Brain lesion Start: 12-02-2023 End: 12-02-2023 Telemedicine consultation with patient Libertad Santiago MECHANICAL ASSEMBLER.MARKETING AND OUTREACH COORDINATOR Work Phone: Cerebrovascular Start: 11-29-2023 Telephone encounter Codie Soto MD Work Phone: [facility] Comment on above: Seizure Call Appointment Start: 11-29-2023 End: 11-29-2023 Emergency department patient visit SOLIS COOL Facility:[facility] Start: 10-26-2023 Telephone encounter Codie Soto MD Work Phone: [facility] Comment on above: Jose week of 01/18 Start: 10-25-2023 Orders Only Codie Soto MD Work Phone: [facility] Comment on above: Brain lesion (Primar y Dx) Start: 10-20-2023 End: 10-20-2023 ambulatory Codie Soto MD Work Phone: [facility] Comment on above: Brain lesion (Primar y Dx); Confusion; Visual field defect; Alexia; Lesion of brain; Speech disturbance, unspecified type; Seizures (HCC) Start: 10-20-2023 End: 10-20-2023 Telemedicine consultation with patient Codie Soto MD Work Phone: [facility] Start: 10-19-2023 End: 10-19-2023 Subsequent hospital visit by physician [facility] ([facility]-Stat/1.[facility]) Work Phone: Radiology Comment on above: Brain lesion [G93.9] Start: 07-22-2023 Orders Only Codie Soto MD Work Phone: [facility] Comment on above: Brain lesion (Primar y Dx) Start: 07-21-2023 End: 07-21-2023 ambulatory Codie Soto MD Work Phone: [facility] Comment on above: Brain lesion (Primar y Dx); Visual field defect; Seizures (HCC); Confusion; Alexia; Paresthesia of both legs; Neoplasm of uncertain behavior of brain, supratentorial (HCC) Start: 07-21-2023 End: 07-21-2023 Telemedicine consultation with patient Codie Soto MD Work Phone: [facility] Start: 07-21-2023 End: 07-21-2023 Patient encounter procedure Harlan Lozano MD Work Phone: [facility] Comment on above: 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); Brain lesion Start: 07-19-2023 End: 07-19-2023 Subsequent hospital visit by physician [facility] (I-Stat/1.5t) Work Phone: Radiology Comment on [...] 04-28-2023 ambulatory Codie Soto MD Work Phone: [facility] Comment on above: Brain lesion (Primar y Dx); Visual field defect; Lesion of brain; Malignant neoplasm metastatic to brain (HCC) Start: 04-28-2023 End: 04-28-2023 Telemedicine consultation with patient Codie Soto MD Work Phone: [facility] Start: 03-30-2023 End: 03-30-2023 Patient encounter procedure Rich Gudino MD Work Phone: [facility] Comment on above: 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); Neuropathy Start: 03-26-2023 Orders Only Codie Soto MD Work Phone: [facility] Comment on above: Brain lesion (Primar y Dx) Start: 03-22-2023 End: 03-22-2023 Subsequent hospital visit by physician Americo Hernandez PA-C Work Phone: [facility] [id number] Comment on above: 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, 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] Start: 03-17-2023 Orders Only Codie Soto MD Work Phone: [facility] Comment on above: Brain lesion (Primar y Dx) Brain lesion (Primar y Dx); 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); Confusion; Visual field defect Start: 03-11-2023 Patient Update Heide Alcala Work Phone: [facility] Comment on above: Disability paperwork completed Start: 02-26-2023 Telephone encounter Heide cotto RN Work Phone: [facility] Comment on above: Labs/Lumbar puncture Start: 02-23-2023 Orders Only Codie Soto MD Work Phone: [facility] Comment on above: Brain lesion (Primar y Dx); 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) JOSE 1-2 weeks- mult iple appts Start: 02-18-2023 End: 02-19-2023 Patient encounter procedure Codie Soto MD Work Phone: [facility] Comment on above: 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, supratentorial (HCC) (Primary Dx); Brain lesion; Confusion; Alexia; Visual field defect Start: 02-18-2023 End: 02-18-2023 Subsequent hospital visit by physician [facility] (I-Stat/1.5t) Work Phone: Radiology Comment on above: Neoplasm [D49.9] Start: 01-12-2023 End: 01-12-2023 Patient encounter procedure Americo Haney DO Work Phone: Infectious Disease Comment on above: Brain lesion (Primar y Dx); Diarrhea of presumed infectious origin Brain lesion (Primar y Dx) Start: 12-31-2022 Telephone encounter Eva Robertson RN [facility] [place] Comment on above: JOSE MRI BRAIN AND L UMBAR SPINE WEEK OF 02/22/23 Start: 12-24-2022 End: 12-24-2022 ambulatory Codie Soto MD Work Phone: [facility] Comment on above: Lesion of brain (Pauline paula Dx); Confusion; 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); Speech disturbance, unspecified type; Alexia; Visual field defect Start: 12-24-2022 End: 12-24-2022 Telemedicine consultation with patient Codie Soto MD Work Phone: [facility] Start: 12-23-2022 Telephone encounter Solis Cool DO Work Phone: NOC Comment on above: Follow Up Phone Call (All clear.) Start: 12-18-2022 Telephone encounter Harlan ureña MD Work Phone: [facility] Comment on above: Results Start: 12-17-2022 E-mail encounter rosie salazar caregiver Codie Soto MD Work Phone: [facility] Start: 12-17-2022 Follow-up encounter Codie Soto MD Work Phone: [facility] Comment on above: Hospital follow up a ppointment Start: 12-15-2022 End: 12-15-2022 Patient encounter procedure David Rios MD Work Phone: Ophthalmology Comment on above: Brain lesion (Primar y Dx); Homonymous hemianopsia, right Start: 12-09-2022 End: 12-09-2022 Patient encounter procedure Codie Soto MD Work Phone: [facility] Comment on above: Lesion of brain (Pauline paula Dx); Speech disturbance, unspecified type; Glioma (HCC); Brain mass Start: 12-07-2022 End: 12-07-2022 Subsequent hospital visit by physician [facility] (I-Stat/1.5t) Radiology Comment on above: Glioma (HCC) [C71.9] Start: 11-27-2022 End: 11-27-2022 Patient encounter procedure Rad Morteza DO Work Phone: Stroke Neurology Comment on above: Corpus callosum synd elfego (HCC) (Primary Dx) Start: 11-26-2022 End: 11-26-2022 Office outpatient visit 10 minutes Solis Cool DO Work Phone: [facility] Start: 11-25-2022 End: 11-25-2022 Subsequent hospital visit by physician [facility] (I-Stat) Work Phone: Cat Scan Comment on above: Lesion of brain [G93 .9] Start: 11-17-2022 End: 11-17-2022 ambulatory Codie Soto MD Work Phone: [facility] Comment on above: Brain mass (Primary Dx); Alexia; Lesion of brain; Speech disturbance, unspecified type; Visual field defect; Confusion Start: 11-17-2022 End: 11-17-2022 Telemedicine consultation with patient Codie Soto MD Work Phone: [facility] Start: 11-16-2022 Telephone encounter Christine STEWARD W Psychiatry Comment on above: Social Work Consulta tion Start: 11-12-2022 ambulatory Codie Soto MD Work Phone: [facility] Start: 11-12-2022 Chart abstracting Heide Dumont RN Work Phone: [facility] Comment on above: Chart prep/record Re view Glioma (HCC) (Primar y Dx) Start: 11-12-2022 End: 11-12-2022 Nursing evaluation of patient and report Antonia Weiss RN Work Phone: [facility] Comment on above: 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) Start: 11-12-2022 End: 11-12-2022 Patient encounter procedure Codie Soto MD Work Phone: [facility] Comment on above: Lesion of brain (Pauline paula Dx); Speech disturbance, unspecified type; Alexia; Confusion; Visual field defect Start: 11-06-2022 Telephone encounter Solis Cool DO Work Phone: [facility] Comment on above: Medication Question Start: 11-02-2022 End: 11-02-2022 Subsequent hospital visit by physician Mri [facility] (I-Stat/1.5t/3t) Work Phone: MRI Q Start: 11-02-2022 End: 11-02-2022 Admission to [facility] Pac Main 1 Work Phone: [facility] Start: 11-02-2022 End: 11-02-2022 ambulatory Pacc Main 1 Work Phone: Pre Anesthesia Comment on above: Pre-op evaluation (P rimary Dx); Glioma (HCC); Primary hypertension; Seizures (HCC); Asthma due to seasonal allergies; Coronary artery disease involving [place] coronary artery of [place] heart without angina pectoris; Gastroesophageal reflux disease without esophagitis Start: 11-02-2022 End: 11-02-2022 Preprocedural examination done Pacc Main 1 Work Phone: Pre Anesthesia Start: 11-02-2022 End: 11-02-2022 Nursing evaluation of patient and report Antonia Weiss RN Work Phone: [facility] [place] Comment on above: 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 Farhana Cool Work Phone: -[facility] Start: 10-22-2022 End: 10-22-[address] Solis Cool Work Phone: Work Phone: Start: 10-22-2022 End: 10-22-[address] Solis Cool Work Phone: -Cardiovascular Services Start: 10-21-2022 Telephone encounter Rad Pro DO Work Phone: Neuro Stroke Comment on above: Results triage (Internal ref erral ) Start: 10-16-2022 End: 10-16-2022 Office outpatient visit 15 minutes Solis Cool DO Work Phone: [facility] Start: 10-16-2022 End: 10-16-2022 Patient encounter procedure Lulú Merrill MA [facility] Internal Medicine Start: 10-12-[address] More Cool Work Phone: -Physical Therapy Start: 10-05-2022 End: 10-05-[address] Solis Cool Work Phone: -[facility] Start: 10-02-2022 ambulatory No Pcp Enid Prieto [employer] Start: 09-25-2022 End: 09-25-2022 Subsequent hospital visit by physician [facility] (I-Stat/1.5t) Work Phone: Radiology Comment on above: Cerebral infarction, unspecified mechanism (HCC) [I63.9] Start: 09-14-2022 ambulatory Solis Cool DO Comp rehensive Internal Med Start: 09-02-2022 End: 09-02-2022 Office outpatient visit 25 minutes Solis Cool DO Work Phone: [facility] Internal Medicine Start: 09-02-2022 Review Solis alcala DO Work Phone: [facility] Internal Medicine Start: 08-25-2022 End: 08-25-2022 Patient encounter procedure Rad Pro DO Work Phone: [facility] Comment on above: Arterial ischemic st roke (HCC) (Primary Dx); Cerebral infarction, unspecified mechanism (HCC) Start: 07-03-2022 End: 07-03-2022 Subsequent hospital visit by physician [facility] (I-Stat/1.5t) Work Phone: Radiology Comment on above: Cerebral infarction, unspecified mechanism (HCC) [I63.9] Start: 06-29-2022 Telephone encounter Rad Pro DO Work Phone: [facility] Comment on above: Received Outside [facility] Records (Imported [facility] report into Spout./) Start: 06-26-2022 Telephone encounter Rad Pro Work Phone: [facility] Start: 06-25-2022 Telephone encounter Rad Pro DO Work Phone: [facility] Comment on above: Received Outside [facility] Records (Rec'd discharge summary from [facility] imported into Spout./) Start: 06-24-2022 End: 06-24-2022 Patient encounter procedure Rad Pro DO Work Phone: [facility] Comment on above: Arterial ischemic st roke (HCC) (Primary Dx); Cerebral infarction, unspecified mechanism (HCC) Start: 06-19-2022 End: 06-19-2022 Office outpatient visit 25 minutes Solis Cool DO Work Phone: [facility] Start: 06-11-2022 End: 06-12-2022 ambulatory CORRIE MANZANO APRN Facility:[facility] Start: 06-09-2022 Non-patient / Non-visit Dr. Farhana Cool Work Phone: [facility] Start: 06-09-2022 Non-patient / Non-visit Dr. Farhana Cool Work Phone: [facility] Start: 06-08-2022 Non-patient / Non-visit Dr. Farhana Cool Work Phone: [facility] Start: 06-08-2022 End: 06-09-2022 Evaluation and management of inpatient Dr. Solis Cool Work Phone: -Progressive Care Unit Start: 06-02-2022 Non-patient / Non-visit Dr. Farhana Cool Work Phone: [facility] Start: 06-02-2022 Non-patient / Non-visit Dr. Farhana Cool Work Phone: [facility] Start: 06-02-2022 End: 06-02-2022 Evaluation and management of inpatient Dr. Solis Cool Work Phone: -Progressive Care Unit Start: 06-02-2022 End: 06-02-[address] Solis Cool Work Phone: Work Phone: Start: 05-27-2022 End: 05-27-2022 Office outpatient visit 15 minutes Solis Cool DO Work Phone: [facility] Start: 05-26-2022 Review Solis alcala DO Work Phone: [facility] Start: 05-21-2022 End: 05-22-2022 ambulatory Elder BONDS MD Facility:[facility] Start: 04-02-2022 End: 04-02-2022 Office outpatient visit 10 minutes Solis Cool DO Work Phone: [facility] Start: 03-25-2022 End: 03-25-2022 ambulatory Work Phone: Start: 03-25-2022 End: 03-25-2022 Patient encounter procedure -Outpatient Breast Imaging Start: 03-13-2022 End: 03-13-2022 Office outpatient visit 25 minutes Solis Cool DO Work Phone: [facility] Start: 11-29-2021 End: 11-30-2021 ambulatory SOLIS COOL Facility:[facility] Start: 10-30-2021 End: 10-31-2021 ambulatory CORRIE MANZANO APRN Facility:[facility] Start: 10-10-2021 End: 10-10-2021 Office outpatient visit 25 minutes Solis Cool DO Work Phone: [facility] Start: 10-10-2021 Review Solis Hernandez n DO Work Phone: [facility] Start: 10-08-2021 End: 10-08-2021 Emergency department patient visit -Emergency Department Start: 09-19-2021 End: 09-19-2021 Office outpatient [...] 09-18-2020 Office outpatient visit 10 minutes Solis Travon DO Work Phone: [facility] Start: 07-22-2020 End: 07-22-2020 Phone Encounter Solis Cool [facility] Start: 07-15-2020 End: 07-15-2020 Office [...] End: 06-28-2020 Office outpatient visit 25 minutes Solisgerald Cool [facility] Start: 04-12-2020 End: 04-12-2020 Office outpatient visit 25 minutes Solis Cool [facility] Start: 03-22-2020 End: 03-22-2020 Office outpatient visit 15 minutes Solis Cool [facility] Start: 03-18-2020 End: 03-18-2020 Office outpatient visit 15 minutes Solis Cool [facility] Start: 03-04-2020 End: 03-04-2020 Annotation/Addendum Solis Cool [facility] Start: 03-04-2020 End: 03-04-2020 Office outpatient visit 15 minutes Solis Travon [facility] Start: 02-29-2020 End: 02-29-2020 Office outpatient visit 10 minutes Solis Travon [facility] Start: 02-29-2020 Review Solis oCol Compreh ensive Internal Medicine Start: 02-29-2020 End: 02-29-2020 Office outpatient visit 15 minutes Solis Cool [facility] Start: 02-28-2020 Review Solis Cool Compreh ensive Internal Medicine Start: 02-22-2020 Review Solis Cool Compreh ensive Internal Medicine Start: 02-22-2020 End: 02-22-2020 Office outpatient visit 15 minutes Solis Travon [facility] Start: 02-22-2020 Review Solismelita Cool Compreh ensive Internal Medicine Start: 02-19-2020 End: 02-19-2020 Annotation/Addendum Solis Cool [facility] Start: 02-05-2020 End: 02-05-2020 Office outpatient visit 15 minutes Solis Cool [facility] Start: 01-18-2020 Review Solis Cool Compreh ensive Internal Medicine Start: 12-27-2019 End: 12-27-2019 Phone Encounter Solis Cool [facility] Start: 12-14-2019 End: 12-14-2019 Office outpatient visit 15 minutes Solis Cool [facility] Start: 11-09-2019 End: 11-09-2019 Phone Encounter Solis Cool [facility] Start: 11-08-2019 End: 11-08-2019 Patient encounter procedure Solis Cool DO Work Phone: [facility] Start: 11-08-2019 End: 11-08-2019 Periodic preventive med est patient 40-64yrs Solis Cool [facility] Start: 11-08-2019 Review Solis Travon Compreh ensive Internal Medicine Start: 10-30-2019 End: 10-30-2019 Office outpatient visit 15 minutes Solis Cool [facility] Start: 10-30-2019 End: 10-30-2019 Office outpatient visit 5 minutes Solis Cool [facility] Start: 10-26-2019 End: 10-30-2019 Phone Encounter Solis Cool [facility] Start: 10-18-2019 End: 10-18-2019 Office outpatient visit 25 minutes Solis Cool [facility] Start: 02-26-2017 End: 02-26-2017 Ambulatory Felipadayana Facility:[place] Start: 02-24-2017 [facility] Patient encounter procedure Tio Kirkpatrick LPN [facility]; [facility] Work Phone: Patient encounter procedure Radha Mcadams BID CLERK [facility]; [facility] Work Phone: Patient encounter procedure Lulú Merrill MA [facility]; [facility] Work Phone: Patient encounter procedure Shonna Aguirre CMA [facility]; [facility] Work Phone: Patient encounter procedure Shonna Aguirre CMA [facility]; [facility] Work Phone: Patient encounter procedure Tio Kirkpatrick LPN [facility]; [facility] Work Phone: Patient encounter procedure Tio Kirkpatrick LPN [facility]; [facility] Work Phone: Patient encounter procedure Rachel Marlon [facility]; [facility] Work Phone: Patient encounter procedure Darryl Kennedy [facility]; [facility] Work Phone: Patient encounter procedure Darryl Kennedy [facility]; [facility] Work Phone: Patient encounter procedure Fran Lopez [facility]; [facility] Work Phone: Patient encounter status Daren Cool DO Work Phone: [facility]; [facility] Work Phone: Comment on above: no pap smear Patient encounter status Shonna Prieto MA [facility]; [facility] Work Phone: Comment on above: no pap smear Patient encounter status Shonna Prieto MA [facility]; [facility] Work Phone: Comment on above: no pap smear Patient encounter status Tio Kirkpatrick LPN [facility]; [facility] Work Phone: Comment on above: no pap smear Patient encounter status Tio Casimiro BID CLERK [facility]; [facility] Work Phone: Comment on above: no pap smear Patient encounter status Rachel Mason BID CLERK [facility]; [facility] Work Phone: Comment on above: no pap smear Patient encounter status Farhanacedric Prieto MA [facility]; [facility] Work Phone: Comment on above: no pap smear Patient encounter status Farhanacedric Prieto MA [facility]; [facility] Work Phone: Comment on above: no pap smear Patient encounter status Lulú Garfield [place] [facility]; [facility] Work Phone: Comment on above: no pap smear Patient encounter status Fran Lopez [facility]; [facility] Work Phone: Comment on above: no pap smear Procedures Date Procedure Procedure Detail Performing Clinician Start: 12-19-2024 Cardiovascular stress test using pharmacologic stress agent Dr. Solis Cool DO Work Phone: Start: 10-11-2024 Mri brain brain stem w/o [...] brain brain stem w/o w/contrast material Rad rPo DO Work Phone: Start: 02-12-2023 End: 02-12-2023 Inital Evaluation (1) - PT Procedure Note: See Note; NOTES: Physical Therapy [facility] [address] [place] [address] / REHABILITATION SERVICES INITIAL EVALUATION MR#: [id number] Acct: [id number] Name: JOSIE LANDIS Rep #: [id number] : 1965 57 From: Shelton Wilson DPT, BRIJESH, CSCS Referring Dr.: Status: REG RCR Insurance: SOUS CHEF KITCHEN MANAGER BENEFIT PLAN [facility] Patient's Visit Information Visit Information Visit Information: JOSIE LANDIS is a 57 year old F referred to Physical Therapy by RAD PRO with a diagnosis of 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, brain lesion. Date of Evaluation: 02/12/23 Physical Therapist: Shelton Wilson DPT, BRIJESH, CSCS Visit Plan Frequency: 3x /Week Duration: [...] found a brain lesion and sent to [facility]. Overall balance does not feel good and weak. they are not sure what the brain lesion is but is having more MRIs and being doctored for that. Has had multiple MRIs and petscans and catscans and blood work and spinal taps. Saw clean out driller helper and delilah is from eye problems but [...] 5:: I appropr HEP or gym program correction for strength and balance Goal Time Frame: [...] to be FAXED BACK to us at [phone] for Medicare purposes. For Medicare only, by signing this I certify the plan of care. Please let me know if there are questions or concerns regarding this plan of care. Physician Signature: Date: <Electronically signed by Shelton OCASIOT, OCS, [facility]> 02/12/23 1244 CC: Dr. Solis Cool, ; RAD RPO; RAD PRO EBG Signed Solis Cool DO Work Phone: Start: 02-08-2023 End: 02-08-2023 OT D/C Summary Procedure Note: See Note; NOTES: Occupational Therapy [facility] [address] [place] [address]. [address] [place] [address] / REHABILITATION SERVICES DISCHARGE SUMMARY MR#: [id number] Acct: [id number] Name: JOSIE LANDIS Rep #: [id number] : 1965 57 From: Philomena BANUELOS/Casey, ADONIST Referring : Status: REG RCR Eval Date: Discharge Date: Discharge Summary D/C Summary: It has been my pleasure to treat JOSIE LANDIS under orders from RAD PRO, for the diagnosis of Acute CVA for a total of 19 visit(s). Please see the following information for a summary of their discharge status. Overall Improvement % Improvement: 90 Objective Objective/Function: right rayon coner strength 65# increase from 57# left rayon coner strength 50# increase from 47# right lateral [...] activates of daily living, evidenced by increased rayon coner strength by 2# each hand. ( goal [...] please fell free to call me at [phone]. Thank you for the referral of this patient. Sincerely, Philomena Paris, OTR/L, CHT <Electronically signed by Philomena Paris OTR/L, CHT> 10/09/23 1600 CC: Dr. Solis Cool, DO; RAD PRO; RAD PRO MK Signed Solis Cool DO Work Phone: Start: 01-19-2023 End: 01-19-2023 SP/HP.SPREEV Procedure Note: See Note; NOTES: Speech Pathology [facility] [address] [place] [address] / REEVALUATION / MEDICARE RECERTIFICATION SPEECH THERAPY MR#: [id number] Acct: [id number] Name: JOSIE LANDIS Rep #: [id number] : 1965 57 From: Roque Rojas M.A., [facility] Referring Dr.: OUT OF TOWN DOCTOR Insurance: SOUS CHEF KITCHEN MANAGER BENEFIT PLAN [facility] History History Date of Eval: 06/23/22 Attending Doctor: RAD PRO Referring Doctor: RAD RPO Smoking Status: Current every day smoker Hx Tobacco Use: No Pain Is pain an issue with your current prescribed condition?: No Personal Preferred language: Swazi Patient Allergies Allergies Allergies: Allergies adhesive tape [...] no longer noted. Objective Cog/Ling/Com Test Administered Btdhtknea-Jtrxawolmw-Pmvsva ication Assessment Administered: Yes Hixgyursq-Nrveftoisk-Vrjqgm ication Assessment: Cognitive ??? Linguistic skills were [...] . <Electronically signed by Roque Rojas M.A., [facility]-POWER SYSTEM ENGINEER> 01/19/23 0958 CC: Dr. Solis Cool DO; RAD PRO; RAD PRO JLM Signed For [...] Re-Evalution OT Procedure Note: See Note; NOTES: Occupational Therapy [facility] [address] [place] [address]. [address] [place] [address] / REEVALUATION / MEDICARE RECERTIFICATION 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 THERAPY MR#: [id number] Acct: [id number] Name: JOSIE LANDIS Rep #: [id number] : 1965 57 From: Marley Samuels Referring Dr.: OUT OF TOWN DOCTOR Status: REG R CR Insurance: SOUS CHEF KITCHEN MANAGER BENEFIT PLAN Eval Date: ANTHEM Re-Evaluation Intro: [...] tremors and overall fatigue as well. R rayon coner strength 40, L rayon coner 21#, R hand dominant R tripod pinch 6, L tripod 6 R lateral 12, L 10 R pincer 6, L 5 9 hole peg test: R hand 28.2 sec L hand 27.6 Plan Plan Frequency: 1x/Week Duration: 3-6 months Visits in this POC: 90 combined PT/OT/POWER SYSTEM ENGINEER Plan: continue 1x/week, plan of care can [...] do not hesitate to contact me at [phone] by phone or if you have questions or concerns regarding this new plan of care! Sincerely, Marley Samuels <Electronically signed by Marley Samuels> 12/01/22 1315 CC: Dr. Solis Cool, DO; RAD PRO [...] PT (1) Procedure Note: See Note; NOTES: Physical Therapy [facility] [address] [place] [address] [address] [place] [address] / REEVALUATION / MEDICARE RECERTIFICATION PHYSICAL THERAPY MR#: [id number] Acct: [id number] Name: JOSIE LANDIS Rep #: [id number] : 1965 57 From: Grabiel Baltazar DPT Referring DrZack: Status:REG RCR Insurance: SOUS CHEF KITCHEN MANAGER BENEFIT PLAN SATHYA PRO, It has been my pleasure to treat JOSIE LANDIS over the last 5 visits for Arterial Ischemic Stroke. Please see the progress note below for an update on the physical therapy plan of care! Subjective: Pt. came into PT this date and let me know she has a new diagnosis of brain cancer. She is going up to [facility]. SHe has been noticing increased dizziness and [...] do not hesitate to contact me at [phone] by phone or if you have questions or concerns regarding this new plan of care! Sincerely, Grabiel Baltazar, DPT <Electronically signed by Grabiel Baltazar DPT> 10/26/22 5197 CC: Dr. Solis Cool DO; RAD MORTEZA CLS Signed For Medicare only, by signing this I certify the plan of care. _ Physicians Signature Date Solis Cool DO Work Phone: Start: 10-22-2022 End: 10-22-2022 Echo Transesophageal (LUKE) Procedure Note: See Note; NOTES: [facility] [address] [place] [address] Echo Transesophageal (LUKE) 10/22/22 1055 MR#: [id number] Acct: [id number] Name: JOSIE LANDIS Rep #: [id number] : 1965 57 From: William Shine MD Attending Dr: José Luis Stauffer, CHAR FILTER OPERATOR HELPER-C Status: REG CLI Ordering Dr: José Luis Stauffer CHAR FILTER OPERATOR HELPER CHAR FILTER OPERATOR HELPER-C Date: 10/22/22 Location: [facility] Sex: F C Admitted: Reason For Study: POSITIVE BUBBLE STUDY ON TTE, HX CVA. Medication LUKE probe 6VT-D (SN [id number]) passed without difficulty. No complications were noted. Cetacaine Topical [place] given X3 orally. Versed 2 mg given [...] Referring Physician: Solis Cool Performed By: Rashida Lozano, MT, RVT 10/22/22 1218 Date William Shine MD CC: CHAR FILTER OPERATOR HELPER-C José Luis Stauffer; Dr. Solis Cool DO Date Dictated: 10/22/22 1055 Date Transcribed: 10/22/221217 Glue Bone Crusher: Viktor Cool DO Work Phone: Start: 10-07-2022 End: 10-07-2022 Re-Evalution OT Procedure Note: See Note; NOTES: Occupational Therapy [facility] [address] [place] [address]. [address] [place] [address] / REEVALUATION / MEDICARE RECERTIFICATION 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 THERAPY MR#: [id number] Acct: [id number] Name: JOSIE LANDIS Rep #: [id number] : 1965 57 From: Marley Samuels Referring DrZack: Status: REG R Insurance: SOUS CHEF KITCHEN MANAGER BENEFIT PLAN Eval Date: SATHYA PRO, It has been my pleasure to treat JOSIE LANDIS over the last 12 visits for Acute CVA. Please see the progress note below for an update on the occupational therapy plan of care! Subjective: Arrived early this date. Reports she had follow up with statistical engineer, neurologist, and clean out driller helper. She reports they still can't figure out [...] analog clock. Discussed possibly following up with debubblizer or basket braider to check inner ear function due to [...] months Visits in this POC: 90 combined PT/OT/POWER SYSTEM ENGINEER Plan: Continue POC 1x/week for 3-6 months depending on progress toward goals. Recommend patient follow up with debubblizer or basket braider. Goals - Goals Patient Goals: Return to [...] do not hesitate to contact me at [phone] by phone or if you have questions or concerns regarding this new plan of care! Sincerely, Marley Samuels <Electronically signed by Marley Samuels > 10/07/22 3096 CC: Dr. Solis Cool, DO; RAD PRO TCL Signed For Medicare only, by signing this I certify the plan of care. _ Physicians Signature Date Solis Cool DO Work Phone: Start: 10-05-2022 End: 10-08-2022 Cardiology Visit Report Procedure Note: See Note; NOTES: [facility] [address] [place] [address]. [address] [place] [address] OFFICE VISIT Date of Service: 10/05/22 MR#: [id number] Acct: [id number] Name: JOSIE LANDIS Rep #: [id number] : 1965 Provider: JULIO guillermo Age/Sex: 57/F Location: [facility] Status: Signed HPI HPI History of Present Illness Details: This is a 57-year-old female who presents the office today for a post hospital follow-up. She has a history of coronary disease. She underwent drug-eluting stent to mid RCA and proximal LAD on 05/13/2018 at [facility]. She had a heart catheterization on 05/21/2022 at [facility] that showed patent mid LAD stent, 40% proximal LAD stenosis, 60% in-stent restenosis of RCA with a normal IFR of 0.99, 85% mid circumflex stenosis, LMCA as angiographically normal, and OM1 as angiographically normal. She proceeded with drug-eluting stent to mid circumflex. She presented in May 2022 with chest pain. Her cardiac enzymes were negative. She underwent a pharmacologic stress test that was negative for ischemia and showed a preserved ejection fraction. She returned to in June 2022 for confusion noted over [...] Oximetry (%) 96 Intake Visit Reasons: STENT 05/25// CONSULTED Science Writer Required: No Is patient in pain?: No [...] @ 12:58 by José Luis Stauffer NP, CHAR FILTER OPERATOR HELPER-C) Anxiety and depression Bipolar 1 disorder Bradycardia, sinus CAD (coronary artery disease) Chest pain COPD (chronic obstructive pulmonary disease) GERD (gastroesophageal reflux disease) HLD (hyperlipidemia) HTN (hypertension) Tobacco abuse Surgical History (Updated 10/06/22 @ 12:40 by José Luis Stauffer NP, CHAR FILTER OPERATOR HELPER-C) H/O: hysterectomy History of cholecystectomy History of heart artery stent History of Indai fundoplication Hx of tonsillectomy Family History Mother CAD (coronary artery disease) Heart disease Hypertension Myocardial infarction Father CAD (coronary artery disease) CVA (cerebral vascular accident) Heart disease Hypertension Social History household members: spouse Smoking Status: [...] Plan Assessment and Plan (1) Atherosclerosis of [place] coronary artery of [place] heart without angina pectoris: Status: Chronic Plan: [...] Plan: She is currently being followed with [facility] neurology team. Her outside event monitor showed [...] Today I25.10 - Atherosclerotic heart disease of [place] coronary artery without angina pectoris, I63.9 - Cerebral infarction, unspecified, R93.1 - Abnormal findings on diagnostic imaging of heart and coronary circulation Basic Metabolic Profile (BMP) Today I25.10 - Atherosclerotic heart disease of [place] coronary artery without angina pectoris, I63.9 - [...] monitor) PCP Lipids (Dr. Cool) Brain MRI- [facility] Neurologist ([facility]- Morteza) Dr. Lopez Office Note ([place]- 2022?) [place] (GERD surgery- flap) 6 Months (CHAR FILTER OPERATOR HELPER/PA) 12-15 Months (CARROT HARVESTER) Coding Level of Care Code Off vis,est,level 4 Diagnoses Atherosclerosis of [place] coronary artery of [place] heart without angina pectoris I25.10 HTN (hypertension) I10 HLD (hyperlipidemia) E78.5 Tobacco abuse Z72.0 Acute cerebrovascular accident (CVA) I63.9 Coding Level of Care Code Off vis,est,level 4 Diagnoses Atherosclerosis of [place] coronary artery of [place] heart without angina pectoris I25.10 HTN (hypertension) I10 HLD (hyperlipidemia) E78.5 Tobacco abuse Z72.0 Acute cerebrovascular accident (CVA) I63.9 10/08/22 1300 <Electronically signed by José Luis Stauffer NP CHAR FILTER OPERATOR HELPER-C> Date José Luis Stauffer NP CHAR FILTER OPERATOR HELPER-C Cosigner Signature: Date (if applicable) CC: Dr. Solis Cool, DO Solis Cool DO Work Phone: Start: 09-25-2022 Mri brain brain stem w/o w/contrast material Rad Pro DO Work Phone: Start: 09-23-2022 End: 09-23-2022 Inital Evaluation (1) - PT Procedure Note: See Note; NOTES: Physical Therapy [facility] [place] [address] / REHABILITATION SERVICES INITIAL EVALUATION MR#: [id number] Acct: [id number] Name: JOSIE LANDIS Rep #: [id number] : 1965 57 From: Grabiel Baltazar DPT Referring Dr.: OUT OF TOWN DOCTOR Status: REG R CR Insurance: SOUS CHEF KITCHEN MANAGER BENEFIT PLAN [facility] Patient's Visit Information JOSIE LANDIS is a [...] with her mobility. She work as the [employer]. 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 [...] to be FAXED BACK to us at [phone] for Medicare purposes. For Medicare only, by signing this I certify the plan of care. Please let me know if there are questions or concerns regarding this plan of care. Physician Signature: Date: <Electronically signed by Grabiel Baltazar DPT> 09/23/22 1007 CC: Dr. Solis Cool DO; RAD PRO CLS Signed Solis Cool DO Work Phone: Start: 07-03-2022 Mri brain brain stem w/o w/contrast material Rad Morteza DO Work Phone: Start: 07-02-2022 End: 07-02-2022 OT General Evaluation Procedure Note: See Note; NOTES: [facility] [place] [address] / REHABILITATION SERVICES INITIAL EVALUATION MR#: [id number] Acct: [id number] Name: JOSIE LANDIS Rep #: [id number] : 1965 56 From: Marley Samuels Referring Dr.: Dr. Solis Cool DO Status: REG R Insurance: SOUS CHEF KITCHEN MANAGER BENEFIT PLAN Eval Date: ANTH Patient's Visit Information JOSIE LANDIS is a 56 year old F, [...] working or driving. Lives with , 4 NAKUL /c HR, split level 12 steps to go downstairs 12 steps with HR. Difficulty with reading, identifying numbers (difficulty with 3, 5, 8), memory/recall, and word finding. Has an upper right quadrant visual field cut. Saw eye doctor 2 weeks ago and will be getting glasses. Will be seeing neurologist Wednesday06/24/22 at the [facility]. Has to be able to lift 70 pounds from the ground for work. - ADLs Comments: independent with ADL's. 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 She will participate in speech to address [...] to be FAXED BACK to us at [phone] for Medicare purposes. Please let me know if there are questions or concerns regarding this plan of care. Physician Signature: Date: <Electronically signed by Marley Samuels > 07/02/22 1442 CC: Dr. Blayne Hawley MD; Dr. Solis Cool DO TCL Signed For Medicare only, by signing this I certify the plan of care. _ Physicians Signature Date Solis Cool DO Work Phone: Start: 06-23-2022 End: 06-23-2022 SP/HP.SP.EV Procedure Note: See Note; NOTES: Speech Pathology [facility] [address] [place] [address]. [address] [place] [address] / REHABILITATION SERVICES INITIAL EVALUATION MR#: [id number] Acct: [id number] Name: JOSIE LANDIS Rep #: [id number] : 1965 56 From: Roque Rojas M.A., [facility] Referring Dr.: Dr. 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 With your statistical engineer regarding when to resume. clonazepam 0.5 mg Tablet. 0.5 mg PO BID. pantoprazole 20 mg Tablet,Delayed Release (/Ec). 40 mg PO DAILY. carbamazepine [Tegretol] 200 mg Tablet. losartan 25 mg Tablet. 25 mg PO DAILY. Hold Instructions: Resume on 06/10/22. With your statistical engineer regarding when to resume. topiramate [Topamax] 100 [...] prescribed condition?: No - Personal Preferred language: Swazi History - History Date of Eval: 06/22/22 [...] Hold Instructions: Resume on 06/10/22. With your statistical engineer regarding when to resume. clonazepam 0.5 mg Tablet. 0.5 mg PO BID. pantoprazole 20 mg Tablet,Delayed Release (Dr/Ec). 40 mg PO DAILY. carbamazepine [Tegretol] 200 mg Tablet. losartan 25 mg Tablet. 25 mg PO DAILY. Hold Instructions: Resume on 06/10/22. With your statistical engineer regarding when to resume. topiramate [Topamax] 100 [...] 05:13) Hives Objective Cog/Ling/Com - Test Administered Aembokebe-Hronuasyzw-Wzwdjr ication Assessment Administered: Yes Ipbqsduak-Iannniggni-Cotkqa ication Assessment: Cognitive ??? Linguistic skills were [...] understanding <Electronically signed by Roque Rojas M.A., [facility]-POWER SYSTEM ENGINEER> 06/23/22 1251 CC: Dr. Blayne Hawley MD; Dr. Solis Cool DO JLM Signed Solis Cool DO Work Phone: Start: 06-08-2022 CT angiography of head and neck Dr. Solis Cool Work Phone: Start: 06-08-2022 End: 06-08-2022 Emergency Department Summary Procedure Note: See Note; NOTES: [facility] Medical Records Department [address] [place] [address] Emergency Department Summary 06/08/22 MR#: [id number] Acct: [id number] Name: JOSIE LANDIS Rep #: [id number] : 1965 56 From: Juan Daniel Dunhma PCP: Dr. Solis Cool DO Status:REG ER Location: ED HPI History of Present Illness Chief Complaint: Confusion Informant: patient and spouse/S.O. Narrative Narrative: Patient presents referred in by her statistical engineer for [facility] for evaluation of confusion for the past [...] her medications. She brought her paperwork from [facility], reviewed she had a new left circumflex stent that was 80% blocked decreased on the left 5%. She had a previous right RCA stent that is 60% blocked. She has a 40% proximal LAD from review of her drawings. Reports is had previous MRI in the past. [facility] Medical History Anxiety and depression Bipolar [...] process. External documents reviewed: Discharge paperwork from [facility]. Test considered but not ordered:N/A ED course: [...] % (Auto) 67.1 Lymph % (Auto) 23.5 Fallon % (Auto) 6.7 Eos % (Auto) 2.1 [...] Sl. Cloudy Urine pH 7.0 Ur Specific Stonewall 1.010 Urine Protein Negative Urine Glucose (UA) [...] (Auto) Neut % (Auto) Lymph % (Auto) Fallon % (Auto) Eos % (Auto) Baso % [...] Color Urine Clarity Urine pH Ur Specific Stonewall Urine Protein Urine Glucose (UA) Urine Ketones [...] Hold Instructions: Resume on 06/10/22. With your statistical engineer regarding when to resume clonazepam 0.5 mg Tablet 0.5 mg PO BID pantoprazole 20 mg Tablet,Delayed Release (Dr/Ec) 20 mg PO DAILY carbamazepine [Tegretol] 200 mg Tablet 200 mg PO BID losartan 25 mg Tablet 25 mg PO DAILY Hold Instructions: Resume on 06/10/22. With your statistical engineer regarding when to resume topiramate [Topamax] 100 [...] Provider] - Disposition Disposition: Acute Care Hospital [facility] What to do if you have Problems For any increased pain, shortness of breath, bleeding, nausea or vomiting, chest pain, or any unexpected problems, contact your Primary Care Provider. Call [facility] ([phone]) or report to the closest Emergency Room. Call 911 if necessary. 06/08/22 1751 <Electronically signed by Juan Daniel Dunham> Cosigner Signature (if applicable): CC: Dr. Solis Cool DO Signed Solis Cool DO Work Phone: Start: 06-08-2022 End: 06-08-2022 Chest 1 View Procedure Note: See Note; NOTES: [facility] Imaging Services [address] [place] [address] Chest 1 View MR#: [id number] Acct: [id number] Name: JOSIE LANDIS Rep #: [id number] : 1965 F 56 From: Garrett Green MD PCP: Dr. Solis Cool DO Status: REG ER Study: Chest 1 View Date of Exam: 06/08/22 Exam# [id number] Ordering Dr: Juan Daniel River DO EXAM: XR CHEST, 1 VIEW CLINICAL INDICATION: Neuro deficit, acute, stroke suspected TECHNIQUE: Frontal view of the chest. This report was created using avocadostore report generation technology. COMPARISON: XR Chest dated [...] Cool DO; Dr. Juan Daniel River DO Glue Bone Crusher: Signed Solis Cool DO Work Phone: Start: 06-08-2022 Plain chest X-ray Dr. Solis Cool Work Phone: Start: 06-08-2022 CT of head without contrast Dr. Solis Cool Work Phone: Start: 06-08-2022 End: 06-08-2022 STROKE Brain/Head without Cont Procedure Note: See Note; NOTES: [facility] Imaging Services [address] [place] [address] STROKE Brain/Head without Cont MR#: [id number] Acct: [id number] Name: JOSIE LANDIS Rep #: [id number] : 1965 F 56 From: Garrett Green MD PCP: Dr. Solis Cool DO Status: REG ER Study: STROKE Brain/Head without Cont Date of Exam: 0 06/08/22 Exam# [id number] Ordering Dr: Juan Daniel River DO We [...] reconstruction technique. This report was created using avocadostore report generation technology. COMPARISON: None. FINDINGS: BRAIN [...] Garrett Green MD at 13:54 EST , CC: Dr. Solis Cool DO; Dr. Juan Daniel River DO Glue Bone Crusher: Signed Solis Cool DO Work Phone: Start: 06-08-2022 End: 06-08-2022 Brain W/WO Contrast Procedure Note: See Note; NOTES: [facility] Imaging Services [address] [place] [address] Brain W/WO Contrast MR#: [id number] Acct: [id number] Name: JOSIE LANDIS Rep #: [id number] : 1965 F 56 From: Jacqueline redmond MD PCP: Dr. Solis Cool, DO Status: REG ER Study: Brain W/WO Contrast Date of Exam: 06/08/22 Exam# [id number] Ordering Dr: Juan Daniel River DO We [...] Cool DO; Dr. Juan Daniel River DO Glue Bone Crusher: Signed Solis Cool DO Work Phone: Start: 06-08-2022 MRI of brain with contrast Dr. Solis Cool Work Phone: Start: 06-02-2022 Cardiovascular stress test using pharmacologic stress agent Dr. Solis Cool Work Phone: Start: 06-02-2022 End: 06-02-2022 Emergency Department Summary Procedure Note: See Note; NOTES: [facility] Medical Records Department [address] [place] [address] Emergency Department Summary 06/02/22 MR#: [id number] Acct: [id number] Name: JOSIE LANDIS Rep #: [id number] : 1965 56 From: Keyur Palmer MD PCP: Dr. Solis Cool DO Status:REG [...] of her circumflex 2 weeks ago at [facility]. I reviewed papers from [facility] that the patient brought with her. These [...] been doing well since her heart cath. [facility] Medical History (Updated 06/02/22 @ 06:47 [...] Ox 96 Oxygen Delivery Method Room Air [facility] Narrative Medical decision making narrative: My independent [...] and directly discussed these issues with our statistical engineer, Dr. Shine. He recommend that we do [...] % (Auto) 54.4 Lymph % (Auto) 35.0 Fallon % (Auto) 6.8 Eos % (Auto) 2.9 [...] ectopy. No acute ST elevation or depression. [place] interval, QRS duration and QTc are normal. [...] Provider] - Disposition Disposition: Acute Care Hospital [facility] What to do if you have Problems For any increased pain, shortness of breath, bleeding, nausea or vomiting, chest pain, or any unexpected problems, contact your Primary Care Provider. Call [facility] ([phone]) or report to the closest Emergency Room. Call 911 if necessary. 06/02/22 0648 <Electronically signed by Keyur Palmer MD> Cosigner Signature (if applicable): CC: Dr. Solis Cool DO Signed Solis Cool DO Work Phone: Start: 06-02-2022 End: 06-02-2022 Chest 1 View (Portable) Procedure Note: See Note; NOTES: [facility] Imaging Services [address] [facility] [facility] [facility] [address] Chest 1 View (Portable) MR#: [id number] Acct: [id number] Name: JOSIE LANDIS Rep #: [id number] : 1965 F 56 From: Avila Rae MD PCP: Dr. Solis Cool DO Status: REG ER Study: Chest 1 View (Portable) Date of Exam: 06/02/22 Exam# [id number] Ordering Dr: Keyur Palmer MD STUDY: X-RAY [...] Solis Cool DO; Dr. Keyur Palmer MD Glue Bone Crusher: Signed Solis Cool DO Work Phone: Start: 06-02-2022 Plain chest X-ray Dr. Solis Cool Work Phone: Start: 03-25-2022 Screening mammography Start: 03-25-2022 End: 03-25-2022 SCRN MAMM (CAD)W/HAYDEE BILAT Procedure Note: See Note; NOTES: [facility] Imaging Services [address] [facility] [facility] [address] SCRN MAMM (CAD)W/HAYDEE BILAT MR#: [id number] Acct: [id number] Name: JOSIE LANDIS Rep #: [id number] : 1965 F 56 From: Juan Sutton DO PCP: Dr. Solis Cool DO Status: REG CLI Study: SCRN MAMM (CAD)W/HAYDEE BILAT Date of Exam: 03/04 07/22 Exam# [id number] Ordering Dr: Solis Cool DO MAMMOGRAPHY - [...] EST , CC: Dr. Solis Cool DO Glue Bone Crusher: Signed Solis Cool DO Work Phone: Start: 10-08-2021 End: 10-08-2021 Chest 1 View (Portable) Comments: See Note; NOTES: [facility] Imaging Services [address] [place] [address] Chest 1 View (Portable) MR#: [id number] Acct: [id number] Name: JOSIE LANDIS Rep #: [id number] : 1965 F 56 From: Niranjan Garsia PCP: Dr. Solis Cool, Status: REG ER Study: Chest 1 View (Portable) Date of Exam: 10/08/21 Exam# [id number] Ordering Dr: Bautista Peters MD INDICATION: chest [...] Bautista Peters MD; Dr. Solis Cool DO Glue Bone Crusher: Signed Solis Cool DO Work Phone: Start: 10-08-2021 Plain chest X-ray Start: 10-08-2021 End: 10-08-2021 Emergency Department Summary Comments: See Note; NOTES: [facility] Medical Records Department [address] [place] [address] Emergency Department Summary 10/08/21 MR#: [id number] Acct: [id number] Name: JOSIE LANDIS Rep #: [id number] : 1965 56 From: Bautista Peters MD PCP: Dr. Solis Cool DO Status:REG [...] had stents placed in her heart. Her statistical engineer is Dr. Lopez. She has not had [...] any PE risk factors. No leg swelling. [facility] Medical History CAD (coronary artery disease) [...] cessation was discussed. She will call her statistical engineer tomorrow. Return instructions were reviewed. Disposition is [...] % (Auto) 66.5 Lymph % (Auto) 24.5 Fallon % (Auto) 6.7 Eos % (Auto) 1.3 [...] Niranjan Mohr MD at 17:28 EDT , Discharge Plan Triage Chief Complaint: Chest [...] were negative twice today. Follow-up with your statistical engineer, Dr. Lopez as soon as possible. Call the office tomorrow. Disposition Disposition: Home, Self Care What to do if you have Problems For any increased pain, shortness of breath, bleeding, nausea or vomiting, chest pain, or any unexpected problems, contact your Primary Care Provider. Call [facility] ([phone]) or report to the closest Emergency Room. Call 911 if necessary. 10/08/212036 <Electronically signed by Bautista Peters MD> Cosigner Signature (if applicable): CC: Dr. Solis Cool DO Signed Solis Cool DO Work Phone: Start: 10-08-2021 End: 10-13-2021 12 Lead EKG Comments: See Note; NOTES: [facility] Cardiovascular Services [address] [place] [address] 12 Lead EKG 10/08/21 1624 MR#: [id number] Acct: [id number] Name: JOSIE LANDIS Rep #: [id number] : 1965 56 From: William Shine MD [...] T wave abnormality Abnormal ECG Confirmed by RL SHEEHAN, WILLIAM ([id number]), acquisitions editor JANEL CHEN ([id number]) on 10/13/2021 7:37:13 AM Referred By: MARV Confirmed By:WILLIAM SHINE MD 10/13/2137 Date William Shine MD CC: Dr. Bautista Peters MD; Dr. Solis Cool DO Signed Solis Cool DO Work Phone: Start: 04-20-2021 End: 04-20-2021 Emergency Department Summary Comments: See Note; NOTES: [facility] Medical Records Department [address] [place] [address] Emergency Department Summary 04/20/21 MR#: [id number] Acct: [id number] Name: JOSIE LANDIS Rep #: [id number] : 1965 55 From: Shelton Sandoval DO PCP: Dr. Solis Cool DO Status:[facility] ER Location: ED HPI History of Present [...] folding chair while she was decorating her [place] tree. Patient states she fell off of [...] over the proximal fibula or fifth metatarsal. [facility] Medical History CAD (coronary artery disease) COPD [...] fracture or suspicious osseous lesion Electronically Signed: Gear Ramirez MD at 10:16 EST , Service [...] your Primary Care Provider. Call [facility] ([phone]) or report to the closest Emergency Room. Call 911 if necessary. 04/20/21 1737 <Electronically signed by Shelton Sandoval DO> Cosigner Signature (if applicable): CC: Dr. Solis Cool DO Signed Solis Cool DO Work Phone: Start: 04-20-2021 End: 04-20-2021 Ankle min 3 Views Comments: See Note; NOTES: [facility] Imaging Services [address] [place] [address] Ankle min 3 Views MR#: [id number] Acct: [id number] Name: JOSIE LANDIS Rep #: [id number] : 1965 F 55 From: Mark Ramirez MD PCP: Dr. Solis Cool DO Status: PRE ER Study: Ankle min 3 Views Date of Exam: 04/20/21 Exam# [id number] Ordering Dr: Shelton Sandoval DO STUDY: X-RAY [...] Shelton Sandoval DO; Dr. Solis Cool DO Glue Bone Crusher: Signed Solis Cool DO Work Phone: Start: 03-24-2021 End: 03-24-2021 SCRN MAMM (CAD)W/HAYDEE BILAT Comments: See Note; NOTES: [facility] Imaging Services [address] [place] [address] SCRN MAMM (CAD)W/HAYDEE BILAT MR#: [id number] Acct: [id number] Name: JOSIE LANDIS Rep #: [id number] : 1965 F 55 From: Mark Ramirez MD PCP: Dr. Solis Cool, DO Status: REG CLI Study: SCRN MAMM (CAD)W/HAYDEE BILAT Date of Exam: 03/04 06/23 Exam# [id number] Ordering Dr: Solis Cool DO MAMMOGRAPHY - [...] support , CC: Dr. Solis Cool DO Glue Bone Crusher: Signed Solis Cool DO Work Phone: Start: 03-09-2021 End: 03-09-2021 Emergency Department Summary Comments: See Note; NOTES: [facility] Medical Records Department [address] [place] [address] Emergency Department Summary 03/09/21 MR#: [id number] Acct: [id number] Name: JOSIE LANDIS Rep #: [id number] : 1965 55 From: Ronald Castro MD [...] and OCP + Smoking + >/=35 PFSH [facility] Medical History CAD (coronary artery disease) COPD [...] % (Auto) 48.7 Lymph % (Auto) 39.1 Fallon % (Auto) 8.0 Eos % (Auto) 3.3 [...] your Primary Care Provider. Call [facility] ([phone]) or report to the closest Emergency Room. Call 911 if necessary. 03/09/21 0431 <Electronically signed by Ronald Castro MD> Cosigner Signature (if applicable): CC: Dr. Solis Cool, Signed Solis Cool DO Work Phone: Start: 03-09-2021 End: 03-10-2021 12 Lead EKG Comments: See Note; NOTES: [facility] Cardiovascular Services [address] [place] [address] 12 Lead EKG 03/09/21 0242 MR#: [id number] Acct: [id number] Name: JOSIE LANDIS Rep #: [id number] : 1965 55 From: Elidia Okeefe MD [...] Normal ECG Confirmed by DIANA SHEEHAN, ELIDIA ([id number]), acquisitions editor JANEL CHEN ([id number]) on 03/10/2021 10:45:02 AM Referred By: BB Confirmed By:ELIDIA OKEEFE MD 03/10/21 1045 Date Elidia Okeefe MD CC: Dr. Ronald Castro MD; Dr. Solis Cool DO Signed Solis Cool DO Work Phone: Start: 03-09-2021 End: 03-09-2021 Chest 1 View (Portable) Comments: See Note; NOTES: [facility] Imaging Services [address] [facility] [address] Chest 1 View (Portable) MR#: [id number] Acct: [id number] Name: JOSIE LANDIS Rep #: [id number] : 1965 F 55 From: Avila Rae MD PCP: Dr. Solis Cool DO Status: REG ER Study: Chest 1 View (Portable) Date of Exam: 03/09/21 Exam# [id number] Ordering Dr: Ronald Castro MD STUDY: X-RAY [...] Ronald Castro MD; Dr. Solis Cool DO Glue Bone Crusher: Signed Solis Cool DO Work Phone: Start: 07-15-2020 End: 07-15-2020 Venous Duplex US, Unilateral Comments: See Note; NOTES: [facility] Cardiovascular Services [address] [place] [address] Venous Duplex US, Unilateral 07/15/20 1402 MR#: [id number] Acct: [id number] Name: JOSIE LANDIS Rep #: [id number] : 1965 54 From: Yanick Marrero MD Attending Dr: Paula Black, CHAR FILTER OPERATOR HELPER-C Status: REG CLI Ordering Dr: Paula Black CHAR FILTER OPERATOR HELPER CHAR FILTER OPERATOR HELPER-C Date: 07/15/20 Location: [facility] Sex: F C Admitted: Reason [...] Physician: SOLIS COOL Performed By: Brianda Harris, MT, RVT 07/15/202220 Date Yanick Marrero MD CC: CHAR FILTER OPERATOR HELPER-C Paula Black; Dr. Solis Cool, DO Date Dictated: 07/15/20 1402 Date Transcribed: 07/15/202220 Glue Bone Crusher: Signed Paula Black Work Phone: Start: 07-04-2020 End: 07-04-2020 Chest PA and Lateral Comments: See Note; NOTES: [facility] Radiology [address] [place] [address] Chest PA and Lateral MR#: [id number] Acct: [id number] Name: JOSIE LANDIS Rep #: [id number] : 1965 F 54 From: Meliton blake MD PCP: Dr. Solis Cool DO Status: DEP AMB Study: Chest PA and Lateral Date of Exam: 07/04/20 Exam# [id number] Ordering Dr: Solis Cool DO STUDY: X-RAY [...] support , CC: Dr. Solis Cool DO Glue Bone Crusher: Signed Solis Cool Work Phone: Start: 06-28-2020 End: 06-28-2020 Chest PA and Lateral Comments: See Note; NOTES: [facility] Radiology [address] [place] [address] Chest PA and Lateral MR#: [id number] Acct: [id number] Name: JOSIE LANDIS Rep #: [id number] : 1965 F 54 From: Meliton blake MD PCP: Dr. Solis Cool DO Status: DEP AMB Study: Chest PA and Lateral Date of Exam: 06/28/20 Exam# [id number] Ordering Dr: Solis Cool DO STUDY: X-RAY [...] support , CC: Dr. Solis Cool DO Glue Bone Crusher: Signed Solis Cool Work Phone: Start: 06-25-2020 End: 06-25-2020 Emergency Department Summary Comments: See Note; NOTES: [facility] Medical Records Department [address] [place] [address] Emergency Department Summary 06/25/20 MR#: [id number] Acct: [id number] Name: JOSIE LANDIS Rep #: [id number] : 1965 54 From: Luc Richey DO [...] abnormalities. 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 Review of the medical record in [facility] work was normal with exception of [...] DAILY #15 tab Prescription Printed Referrals: Solis Cool, DO [Primary Care Provider] - What to do if you have Problems For any increased pain, shortness of breath, bleeding, nausea or vomiting, chest pain, or any unexpected problems, contact your Primary Care Provider. Call [facility] ([phone]) or report to the closest Emergency Room. Call 911 if necessary. 06/25/20 1008 <Electronically signed by Luc Richey DO> Date Luc Richey DO Cosigner Signature (If Indicated): Date CC: DO Solis Jose Start: 06-25-2020 End: 06-26-2020 12 Lead EKG Comments: See Note; NOTES: [facility] Cardiovascular Services [address] [place] [address] 12 Lead EKG 06/25/20 0947 MR#: [id number] Acct: [id number] Name: JAMIE LANDISN Ruy Rep #: [id number] : 1965 54 From: William Shine MD [...] Abnormal ECG Confirmed by WILLIAM SHINE MD ([id number]), acquisitions editor JANEL CHEN ([id number]) on 06/26/2020 12:48:05 PM Referred By: EDU Confirmed By:WILLIAM SHINE MD 06/26/20 1248 Date William Shine MD CC: Dr. Luc Richey, DO; Dr. Solis Cool, DO Signed Solis Cool Start: 04-11-2020 End: 04-11-2020 Discharge Summary Comments: See Note; NOTES: [facility] Medical Records Department [address] [place] [address] Discharge Summary 04/11/2003 MR#: [id number] Acct: [id number] Name: JOSIE LANDIS Rep #: [id number] : 1965 54 From: Eleonora Buck PCP: Status:REG RCR Y Location: [facility] Massage Therapy Discharge Summary: Initial Evaluation Date: 11/23/2019 Diagnosis: MUSCLE SPASM No. of Visits: 4 Date of last visit: 04/01/2020 This patient is being discharged from our care at the [facility]. Thank you, Eleonora Buck, T 04/11/2004 <Electronically signed by Eleonora Buck > Date Eleonora Buck Cosign Signature (if applicable): Date CC: DEONTE CHANDLER; Eleonora Buck Signed Solis Cool Start: 03-04-2020 End: 03-04-2020 Chest PA and Lateral Comments: See Note; NOTES: [facility] Radiology [address] [place] [address] Chest PA and Lateral MR#: [id number] Acct: [id number] Name: JOSIE LANDIS Rep #: [id number] : 1965 F 54 From: Meliton blake MD PCP: Dr. Solis Cool DO Status: DEP AMB Study: Chest PA and Lateral Date of Exam: 03/04/20 Exam# [id number] Ordering Dr: Paula Black NP CHAR FILTER OPERATOR HELPER-C STUDY: X-RAY CHEST REASON FOR EXAM: Female, [...] and Lateral IMPRESSION: Hyperinflation. Electronically Signed: Meliton Barrios, at 14:34 EST , Service support , CC: CHAR FILTER OPERATOR HELPER-C Paula Black; Dr. Solis Cool DO Glue Bone Crusher: Signed Paula Black Work Phone: Start: 11-29-2019 End: 11-29-2019 Dexa Bone Density Study Comments: See Note; NOTES: [facility] Imaging Services [address] [place] [address] Dexa Bone Density Study MR#: [id number] Acct: [id number] Name: JOSIE LANDIS Rep #: [id number] : 1965 F 54 From: Meliton blake MD PCP: Dr. Solis Cool DO Status: [facility] Study: Dexa Bone Density Study Date of Exam: 11/29/19 Exam# [id number] Ordering Dr: Solis Cool DO STUDY: DUAL [...] support , CC: Dr. Solis Cool DO Glue Bone Crusher: Signed Solis Cool Work Phone: Start: 11-29-2019 End: 12-08-2019 SCREEN MAMM (CAD) W/HAYDEE BILAT Comments: See Note; NOTES: [facility] Imaging Services [address] [place] [address] SCREEN MAMM (CAD) W/HAYDEE BILAT MR#: [id number] Acct: [id number] Name: JOSIE LANDIS Rep #: [id number] : 1965 F 54 From: Meliton blake MD PCP: Dr. Solis Cool DO Status: REG CLI Study: SCREEN MAMM (CAD) W/HAYDEE BILAT Date of Exam: 0 11/29/19 Exam# [id number] Ordering Dr: Solis Cool DO MAMMOGRAPHY - [...] delay biopsy of a clinically suspicious abnormality. [id number] Electronically Signed: Meliton Barrios, at 8:40 EDT , Service support , CC: Dr. Solis Cool, DO Glue Bone Crusher: Signed Solis Cool Work Phone: cardiac stents x2 Shonna Gra vius cardiac stents x2 Tio Smi th cardiac stents x2 Shonna Gra vius cardiac stents x2 Ito Blu is cardiac stents x2 Teagan Coff man cardiac stents x2 Radha Single Pointed Operator ss cardiac stents x2 Tio Blu is cardiac stents x2 Tio Blu is cardiac stents x2 Radha Single Pointed Operator ss cardiac stents x2 Radha Single Pointed Operator ss cardiac stents x2 Rachel Sla rb cardiac stents x2 Shonna Gra vius cardiac stents x2 Radha Single Pointed Operator ss cardiac stents x2 Shonna Gra vius cardiac stents x2 Tio Blu is cardiac stents x2 Tio Blu is cardiac stents x2 Radha Single Pointed Operator ss BID CLERK cardiac stents x2 Lulú Mur phy MA cardiac stents x2 Shonna Gra vius SENIOR DIRECTOR cardiac stents x2 Shonna Gra vius SENIOR DIRECTOR cardiac stents x2 Tio Blu is BID CLERK cardiac stents x2 Tio Blu is BID CLERK cardiac stents x2 Rachel Sla rb BID CLERK cardiac stents x2 Kayela Rad flores SENIOR DIRECTOR cardiac stents x2 Kayela Rad flores SENIOR DIRECTOR cardiac stents x2 Lulú Mur phy MA cardiac stents x2 Fran Pry or BID CLERK gallbladder removal Shonna barnhart Comment on above: 2001 gallbladder removal Tio english Comment on above: 2001 gallbladder removal Shonna G ravius Comment on above: 2001 gallbladder removal Tio D alverto Comment on above: 2001 gallbladder removal Teagan wise Comment on above: 2001 gallbladder removal Radha gonzales Comment on above: 2001 gallbladder removal Tio D alverto Comment on above: 2001 gallbladder removal Tio D alverto Comment on above: 2001 gallbladder removal Radha gonzales Comment on above: 2001 gallbladder removal Radha gonzales Comment on above: 2001 gallbladder removal Rachel S larb Comment on above: 2001 gallbladder removal Shonna G ravius Comment on above: 2001 gallbladder removal Radha gonzales Comment on above: 2001 gallbladder removal Shonna G ravius Comment on above: 2001 gallbladder removal Tio D alverto Comment on above: 2001 gallbladder removal Tio D alverto Comment on above: 2001 gallbladder removal Radha gonzales BID CLERK Comment on above: 2001 gallbladder removal Lulú jensen MA Comment on above: 2001 gallbladder removal Shonna G ravius SENIOR DIRECTOR Comment on above: 2001 gallbladder removal Shonna G ravius SENIOR DIRECTOR Comment on above: 2001 gallbladder removal Tio D alverto BID CLERK Comment on above: 2001 gallbladder removal Tio D alverto BID CLERK Comment on above: 2001 gallbladder removal Rachel S larb BID CLERK Comment on above: 2001 gallbladder removal Kababara Irving hirsch SENIOR DIRECTOR Comment on above: 2001 gallbladder removal Kayela R adsandra SENIOR DIRECTOR Comment on above: 2001 gallbladder removal Lulú jensen MA Comment on above: 2001 gallbladder removal Fran P ryor BID CLERK Comment on above: 2001 History of placement [...] Kirkpatrick Comment on above: 1994 [place] Hysterectomy Teagan Gillette Comment on above: 1994 [place] Hysterectomy Radha Mcadams Comment on above: 1994 [place] Hysterectomy Tio Kirkpatrick Comment on above: 1994 [place] Hysterectomy Tio Kirkpatrick Comment on above: 1994 [place] Hysterectomy Radha Mcadams Comment on above: 1994 [place] Hysterectomy Radha Mcadams Comment on above: 1994 [place] Hysterectomy Rachel Slarb Comment on above: 1994 [place] Hysterectomy Shonna Gravius Comment on above: 1994 [place] Hysterectomy Radha Abbe Comment on above: 1994 [place] Hysterectomy Shonna Gravius Comment on above: 1994 [place] Hysterectomy Tio Casimiro Comment on above: 1994 [place] Hysterectomy Tio Kirkpatrick Comment on above: 1994 [place] Hysterectomy Radha Cross LP N Comment on above: 1994 [place] Hysterectomy Lulú Friedman Comment on above: 1994 [place] Hysterectomy Shonna Gravius SENIOR DIRECTOR Comment on above: 1994 [place] Hysterectomy Shonna Gravius SENIOR DIRECTOR Comment on above: 1994 [place] Hysterectomy Tio Casimiro LP N Comment on above: 1994 [place] Hysterectomy Tio Casimiro LP N Comment on above: 1994 [place] Hysterectomy Rachel Slarb LP N Comment on above: 1994 [place] Hysterectomy Kayela Marcia SENIOR DIRECTOR Comment on above: 1994 [place] Hysterectomy Kayela Marcia SENIOR DIRECTOR Comment on above: 1994 [place] Hysterectomy Lulú Friedman Comment on above: 1994 [place] Hysterectomy Fran John LP N Comment on above: 1994 Other bilateral liga tion and division of [...] and division of fallopian tubes Rachel Slarb Comment on above: 1991 Other bilateral liga [...] and division of fallopian tubes Radha Mcadams BID CLERK Comment on above: 1991 Other bilateral liga tion and division of fallopian tubes Lulú Merrill MA Comment on above: 1991 Other bilateral liga tion and division of fallopian tubes Shonna Gravius SENIOR DIRECTOR Comment on above: 1991 Other bilateral liga tion and division of fallopian tubes Shonna Gravius SENIOR DIRECTOR Comment on above: 1991 Other bilateral liga tion and division of fallopian tubes Tio Kirkpatrick BID CLERK Comment on above: 1991 Other bilateral liga tion and division of fallopian tubes Tio Kirkpatrick BID CLERK Comment on above: 1991 Other bilateral liga tion and division of fallopian tubes Rachel Slarb BID CLERK Comment on above: 1991 Other bilateral liga tion and division of fallopian tubes Kababara Marcia SENIOR DIRECTOR Comment on above: 1991 Other bilateral liga tion and division of fallopian tubes Kababara [facility] SENIOR DIRECTOR Comment on above: 1991 Other bilateral liga tion and division of fallopian tubes Lulú Merrill MA Comment on above: 1991 Other bilateral liga tion and division of fallopian tubes Fran John BID CLERK Comment on above: 1991 shoulder replacment Shonna barnhart Comment on above: 2019 shoulder replacment Tio english Comment on above: 2019 shoulder replacment Shonna G bronwyn Comment on above: 2019 shoulder replacment Tio del toro Comment on above: 2019 shoulder replacment Teaganreji baezman Comment on above: 2019 shoulder replacment Radha gonzales Comment on above: 2019 shoulder replacment Tio del toro Comment on above: 2019 shoulder replacment Tio del toro Comment on above: 2019 shoulder replacment Radha gonzales Comment on above: 2019 shoulder replacment Radha gonzales Comment on above: 2019 shoulder replacment Rachel jamil Comment on above: 2019 shoulder replacment Shonna Apollo barnhart Comment on above: 2019 shoulder replacment Radha gonzales Comment on above: 2019 shoulder replacment Shonna Apollo barnhart Comment on above: 2019 shoulder replacment Tio del toro Comment on above: 2020 shoulder replacment Tio D alverto Comment on above: 2020 shoulder replacment Radha gonzales BID CLERK Comment on above: 2020 shoulder replacment Lulú jensen MA Comment on above: 2020 shoulder replacment Shonna G bronwyn SENIOR DIRECTOR Comment on above: 2020 shoulder replacment Shonna G ravius SENIOR DIRECTOR Comment on above: 2020 shoulder replacment Tio D alverto BID CLERK Comment on above: 2020 shoulder replacment Tio D alverto BID CLERK Comment on above: 2019 shoulder replacment Rachel S larb BID CLERK Comment on above: 2019 shoulder replacment Darryl hirsch CMA Comment on above: 2020 shoulder replacment Kayela R torrey SENIOR DIRECTOR Comment on above: 2020 shoulder replacment Lulú jensen MA Comment on above: 2019 shoulder replacment Fran P ryor BID CLERK Comment on above: 2019 Stent replacement Rachel Sla rb BID CLERK Comment on above: 05/2022 Stent replacement Kayela Rad flores SENIOR DIRECTOR Comment on above: 05/2022 Stent replacement Kayela Rad flores SENIOR DIRECTOR Comment on above: 05/2022 Stent replacement Lulú osorio MA Comment on above: 05/2022 Stent replacement Fran Pry or BID CLERK Comment on above: 05/2022 throat surgery/hernia Shonna [...] Comment on above: 2014 throat surgery/hernia Radha Mcdaams Comment on above: 2014 throat surgery/hernia Radha Mcadams Comment on above: 2014 throat surgery/hernia Rachel Marlon Comment on above: 2014 throat surgery/hernia Shonna Gravius Comment on above: 2014 throat surgery/hernia Radha Mcadams Comment on above: 2014 throat surgery/hernia Shonna Gravius Comment on above: 2014 throat surgery/hernia Tio Kirkpatrick Comment on above: 2014 throat surgery/hernia Tio Kirkpatrick Comment on above: 2014 throat surgery/hernia Radha Mcadams BID CLERK Comment on above: 2014 throat surgery/hernia Lulú Merrill MA Comment on above: 2014 throat surgery/hernia Shonna Gravius SENIOR DIRECTOR Comment on above: 2014 throat surgery/hernia Shonna Gravius SENIOR DIRECTOR Comment on above: 2014 throat surgery/hernia Tio Kirkpatrick BID CLERK Comment on above: 2014 throat surgery/hernia Tio Kirkpatrick BID CLERK Comment on above: 2014 throat surgery/hernia Rachel Slarb BID CLERK Comment on above: 2014 throat surgery/hernia Darryl Kennedy CMA Comment on above: 2014 throat surgery/hernia Darryl Kennedy SENIOR DIRECTOR Comment on above: 2014 throat surgery/hernia Lulú Merrill MA Comment on above: 2014 throat surgery/hernia Fran John BID CLERK Comment on above: 2014 Tonsillectomy Shonna Gravius Tonsillectomy Tio Patrick Tonsillectomy Shonna Gravius Tonsillectomy Tio Kirkpatrick Tonsillectomy Teagan Leta Tonsillectomy Radhaayaan Mcadams Tonsillectomy Tio Kirkpatrick Tonsillectomy Tio Kirkpatrick Tonsillectomy Radha Abbe Tonsillectomy Radha Abbe Tonsillectomy Rachel Slarb Tonsillectomy Shonna Gravius Tonsillectomy Radhaayaan Mcadams Tonsillectomy Shonna Gravius Tonsillectomy Tio Kirkpatrick Tonsillectomy Tio Kirkpatrick Tonsillectomy Radhaayaan Mcadams L PN Tonsillectomy Lulú Merrill MA Tonsillectomy Shonna Gravius SENIOR DIRECTOR Tonsillectomy Shonna Gravius SENIOR DIRECTOR Tonsillectomy Tio Kirkpatrick L PN Tonsillectomy Tio Kirkpatrick L PN Tonsillectomy Rachel Slarb L PN Tonsillectomy Darryl Kennedy SENIOR DIRECTOR Tonsillectomy Darryl Kennedy SENIOR DIRECTOR Tonsillectomy Lulú Merrill MA Tonsillectomy Fran John L PN Plan of Treatment Date Care Activity Detail Author Start: 07-22-2027 Diabetes Screening Diabetes Screening [facility] Start: 11-28-2026 Diabetes Screening Diabetes Screening [facility] Start: 06-01-2026 Diabetes Screening Diabetes Screening [facility] Start: 12-15-2025 DIABETES SCREEN DIABETES SCREEN [facility] Start: 12-15-2025 Diabetes Screening Diabetes Screening [facility] Start: 12-09-2025 DIABETES SCREEN DIABETES SCREEN [facility] Start: 11-20-2025 DIABETES SCREEN DIABETES SCREEN [facility] Start: 11-05-2025 DIABETES SCREEN DIABETES SCREEN [facility] Start: 11-02-2025 DIABETES SCREEN DIABETES SCREEN [facility] Start: 01-25-2025 End: 01-25-2025 Patient encounter procedure 01/25/2025 9:00 AM EDT Office Visit Neurology [address] [place] [address] Tania Monroy MD [address] [place] [address] Seizures Neurology Comment on above: Seizures Start: 01-01-2025 Influenza vaccination [facility] Start: 10-13-2024 End: 10-13-2024 ambulatory 10/13/2024 11:00 AM EDT [facility] [place] [address] [place] [address] Codie Soto MD [address] [facility] [address] [place] [address] MRI brain vv w/ Dr. Huizar 1-2 days later [facility] [place] Comment on above: MRI brain vv w/ Dr. Huizar 1-2 days late r Start: 06-21-2024 End: 09-20-2024 10-Hydroxycarbazepine [Mass/volume] in Serum or Plasma OXCARBAZEPINE BLD Lab Routine Recurrent seizures (HCC) Expected: 06/21/2024, Expires: 09/20/2024 [facility] Comment on above: Expected: 06/21/2024, Expires: Start: 06-21-2024 End: 09-20-2024 CBC panel - Blood by Automated count COMPLETE BLOOD COUNT Lab Routine Recurrent seizures (HCC) Expected: 06/21/2024, Expires: 09/20/2024 [facility] Work Phone: Comment on above: Expected: 06/21/2024, Expires: Start: 06-21-2024 End: 09-20-2024 Comprehensive metabolic 2000 panel - Serum or Plasma COMPREHENSIVE METABOLIC PANEL Lab Routine Recurrent seizures (HCC) Expected: 06/21/2024, Expires: 09/20/2024 [facility] Comment on above: Expected: 06/21/2024, Expires: Start: 06-21-2024 End: 06-21-2024 ambulatory 06/21/2024 10:00 AM [facility] Neurology [address] [place] [address] Tania Monroy MD [address] [place] [address] 3 monh Neurology Comment on above: 3 monh Start: 03-30-2024 BP Controlled (<130/80) BP Controlled (<130/80) [facility] Start: 01-28-2024 End: 01-28-2024 Patient encounter procedure Neurology Comment on above: EEG/ New Consult EEG/New Consult Start: 01-19-2024 End: 01-19-2024 FQHC visit, estab pt 01/19/2024 10:30 AM EDT [facility] [place] [address] [place] [address] Clair Bahena APRN.MARKETING AND OUTREACH COORDINATOR [address] [place] [address] Scheduling Request - Established Patient [facility] [place] Comment on above: Scheduling Request - Established Patient Start: 01-17-2024 End: 01-17-2024 Patient encounter procedure 01/17/2024 10:00 AM EDT Appointment Radiology [address] [place] [address] INCLUDE PERFUSION Radiology Comment on above: INCLUDE PERFUSION Start: 01-13-2024 BP Controlled (<130/80) BP Controlled (<130/80) [facility] Start: 01-02-2024 Covid-19 Vaccine ( season) Covid-19 Vaccine ( season) [facility] Start: 01-02-2024 Covid-19 Vaccine ( season) Covid-19 Vaccine ( season) [facility] Start: 01-02-2024 Influenza vaccination [facility] Start: 12-10-2023 BP CONTROLLED (<130/80) BP CONTROLLED (<130/80) [facility] Start: 12-02-2023 End: 12-02-2023 ambulatory 12/02/2023 3:00 PM EDT [facility]bro[facility] [address] [place], [place] [id number] Libertad Santiago APRN.MARKETING AND OUTREACH COORDINATOR [address] [place] [address] [place] [id number] F/U Cerebrovascular Comment on above: F/U Start: 11-28-2023 BP CONTROLLED (<130/80) BP CONTROLLED (<130/80) [facility] Start: 11-03-2023 BP CONTROLLED (<130/80) BP CONTROLLED (<130/80) [facility] Start: 10-21-2023 End: 08-19-2024 MR Brain WO and W contrast IV MRI BRAIN WO/W IVCON Radiology Routine 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 disorder (HCC) Brain lesion Expected: 10/21/2023, Expires: 08/19/2024 [facility] Work Phone: Comment on above: Expected: 10/21/2023, Expires: 5 Start: 10-20-2023 End: 10-20-2023 Follow-up encounter 10/20/2023 9:00 AM [facility] [address] [place] [address] Codie Soto MD [address] [facility] [address] [place] [address] Brain lesion follow up [facility] [place] Comment on above: Brain lesion follow up Start: 08-02-2023 End: 09-24-2023 Mri brain brain stem w/o w/contrast material MRI BRAIN WO/W IVCON Radiology Routine Cerebral infarction, unspecified mechanism (HCC) Expected: 08/02/2023, Expires: 09/24/2023 [facility] Work Phone: Comment on above: Expected: 08/02/2023, Expires: 4 Start: 06-18-2023 End: 09-17-2023 Borrelia burgdorferi IgM Ab [Presence] in Cerebral spinal fluid by Immunoblot [facility] Work Phone: Comment on above: Expected: 06/18/2023, Expires: 4 Start: 06-18-2023 End: 09-17-2023 FUNGAL ABS WITH REFLEX, CSF [facility] Work Phone: Comment on above: Expected: 06/18/2023, Expires: Start: 06-18-2023 End: 09-17-2023 HEIDI virus DNA [Presence] in Serum or Plasma by JOHN with probe detection [facility] Work Phone: Comment on above: Expected: 06/18/2023, Expires: 4 Start: 06-18-2023 End: 09-17-2023 MISC SEND OUT TST 1 MISC SEND OUT TST 1 Lab Routine Brain lesion Expected: 06/18/2023, Expires: 09/17/2023 [facility] Work Phone: Comment on above: Expected: 06/18/2023, Expires: Start: 06-18-2023 End: 09-17-2023 WHIPPLE'S PCR WB [facility] Work Phone: Comment on above: Expected: 06/18/2023, Expires: Start: 05-03-2023 Behavioral Health Screening Behavioral Health Screening [facility] Start: 05-03-2023 Depression Assessment Depression Assessment [facility] Start: 03-30-2023 End: 06-29-2023 IMMUNOFIXATION SCREEN, SERUM [facility] Work Phone: Comment on above: Expected: 03/30/2023, Expires: 4 Start: 03-30-2023 End: 06-29-2023 PROTEIN ELECTROPHORESIS SERUM W/INTERP [facility] Work Phone: Comment on above: Expected: 03/30/2023, Expires: 4 Start: 03-26-2023 End: 06-25-2023 OLIGOCLONAL BAND CSF [facility] Work Phone: Comment on above: Expected: 03/26/2023, Expires: 4 Start: 03-26-2023 End: 06-25-2023 TOURTELLOTTE CSF [facility] Work Phone: Comment on above: Expected: 03/26/2023, Expires: 4 Start: 03-17-2023 End: 06-16-2023 Borrelia burgdorferi DNA [Presence] in Unspecified specimen by JOHN with probe detection LYME DISEASE BY PCR Lab Routine Brain lesion Expected: 03/17/2023, Expires: 06/16/2023 [facility] Work Phone: Comment on above: Expected: 03/17/2023, Expires: 4 Start: 03-17-2023 End: 06-16-2023 EXTRA TUBES EXTRA TUBES Lab STAT Brain lesion 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 Visual field defect Expected: 03/17/2023, Expires: 06/16/2023 [facility] Work Phone: Comment on above: Expected: 03/17/2023, Expires: 4 Start: 03-17-2023 End: 06-16-2023 Glucose [Mass/volume] in Serum or Plasma GLUCOSE RANDOM BLD Lab Routine Brain lesion 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 Visual field defect Expected: 03/17/2023, Expires: 06/16/2023 [facility] Work Phone: Comment on above: Expected: 03/17/2023, Expires: 4 Start: 03-17-2023 End: 06-16-2023 MISC SEND OUT TST 1 MISC SEND OUT TST 1 Lab Routine Brain lesion 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 Visual field defect Expected: 03/17/2023, Expires: 06/16/2023 [facility] Work Phone: Comment on above: Expected: 03/17/2023, Expires: 4 Start: 03-17-2023 End: 06-16-2023 Protein [Mass/volume] in Cerebral spinal fluid PROTEIN CSF Lab Routine Brain lesion Expected: 03/17/2023, Expires: 06/16/2023 [facility] Work Phone: Comment on above: Expected: 03/17/2023, Expires: 4 Start: 02-22-2023 End: 05-24-2023 Borrelia burgdorferi DNA [Presence] in Unspecified specimen by JOHN with probe detection LYME DISEASE BY PCR Lab Routine Neoplasm of uncertain behavior of brain, supratentorial (HCC) Brain lesion Confusion Alexia Visual field defect Expected: 02/22/2023, Expires: 05/24/2023 [facility] Work Phone: Comment on above: Expected: 02/22/2023, Expires: 4 Start: 02-22-2023 End: 05-24-2023 FLOW CYTOMETRY FOR LEUKEMIA/LYMPHOMA (FCLL) FLOW CYTOMETRY FOR LEUKEMIA/LYMPHOMA (FCLL) Lab Routine Neoplasm of uncertain behavior of brain, supratentorial (HCC) Brain lesion Confusion Alexia Visual field defect Expected: 02/22/2023, Expires: 05/24/2023 [facility] Work Phone: Comment on above: Expected: 02/22/2023, Expires: 4 Start: 02-22-2023 End: 05-24-2023 Glucose [Mass/volume] in Serum or Plasma GLUCOSE RANDOM BLD Lab Routine Neoplasm of uncertain behavior of brain, supratentorial (HCC) Brain lesion Confusion Alexia Visual field defect Expected: 02/22/2023, Expires: 05/24/2023 [facility] Work Phone: Comment on above: Expected: 02/22/2023, Expires: 4 Start: 02-22-2023 End: 05-24-2023 Microorganism identified in Unspecified specimen by Culture AFB CULT + STAIN Microbiology Routine Neoplasm of uncertain behavior of brain, supratentorial (HCC) Brain lesion Confusion Alexia Visual field defect Expected: 02/22/2023, Expires: 05/24/2023 [facility] Work Phone: Comment on above: Expected: 02/22/2023, Expires: 4 Start: 02-22-2023 End: 05-24-2023 MISC SEND OUT TST 1 MISC SEND OUT TST 1 Lab Routine Neoplasm of uncertain behavior of brain, supratentorial (HCC) Brain lesion Confusion Alexia Visual field defect Expected: 02/22/2023, Expires: 05/24/2023 [facility] Work Phone: Comment on above: Expected: 02/22/2023, Expires: 4 Start: 01-12-2023 End: 03-14-2023 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 DEMYELINATING DISEASE EVALUATION, SERUM [facility] Work Phone: Comment on above: Expected: 01/12/2023, Expires: 3 Start: 01-01-2023 Covid-19 Vaccine () Covid-19 Vaccine () [facility] Start: 01-01-2023 Influenza vaccination [facility] Start: 11-26-2022 Procedure Education Eprescribed prescriptions (G8553) [facility] Work Phone: Start: 11-17-2022 End: 01-17-2023 aPTT in Platelet poor plasma by Coagulation assay ACTIVATED PTT Lab Routine Brain mass Alexia Lesion of brain Speech disturbance, unspecified type Visual field defect Confusion Expected: 11/17/2022, Expires: 01/17/2023 [facility] Work Phone: Comment on above: Expected: 11/17/2022, Expires: 3 Start: 11-17-2022 End: 01-17-2023 AUTOIMMUNE ENCEPHALOPATHY EVALUATION, CSF AUTOIMMUNE ENCEPHALOPATHY EVALUATION, CSF Lab Routine Brain mass Alexia Lesion of brain Speech disturbance, unspecified type Visual field defect Confusion Expected: 11/17/2022, Expires: 01/17/2023 [facility] Work Phone: Comment on above: Expected: 11/17/2022, Expires: 3 Start: 11-17-2022 End: 01-17-2023 AUTOIMMUNE ENCEPHALOPATHY EVALUATION, SERUM AUTOIMMUNE ENCEPHALOPATHY EVALUATION, SERUM Lab Routine Brain mass Alexia Lesion of brain Speech disturbance, unspecified type Visual field defect Confusion Expected: 11/17/2022, Expires: 01/17/2023 [facility] Work Phone: Comment on above: Expected: 11/17/2022, Expires: 3 Start: 11-17-2022 End: 01-17-2023 Borrelia burgdorferi DNA [Presence] in Unspecified specimen by JOHN with probe detection LYME DISEASE BY PCR Lab Routine Brain mass Alexia Lesion of brain Speech disturbance, unspecified type Visual field defect Confusion Expected: 11/17/2022, Expires: 01/17/2023 [facility] Work Phone: Comment on above: Expected: 11/17/2022, Expires: 3 Start: 11-17-2022 End: 01-17-2023 Borrelia burgdorferi IgG and IgM panel - Serum LYME AB LATE >30 DAYS SYMPTOMS Lab Routine Brain mass Alexia Lesion of brain Speech disturbance, unspecified type Visual field defect Confusion Expected: 11/17/2022, Expires: 01/17/2023 [facility] Work Phone: Comment on above: Expected: 11/17/2022, Expires: 3 Start: 11-17-2022 End: 01-17-2023 C reactive protein [Mass/volume] in Serum or Plasma C-REACTIVE PROTEIN (CRP) Lab Routine Brain mass Alexia Lesion of brain Speech disturbance, unspecified type Visual field defect Confusion Expected: 11/17/2022, Expires: 01/17/2023 [facility] Work Phone: Comment on above: Expected: 11/17/2022, Expires: 3 Start: 11-17-2022 End: 01-17-2023 CBC W Auto Differential panel - Blood CBC + DIFF Lab Routine Brain mass Alexia Lesion of brain Speech disturbance, unspecified type Visual field defect Confusion Expected: 11/17/2022, Expires: 01/17/2023 [facility] Work Phone: Comment on above: Expected: 11/17/2022, Expires: 3 Start: 11-17-2022 End: 01-17-2023 Cobalamin (Vitamin B12) [Mass/volume] in Serum or Plasma VITAMIN B12 BLOOD Lab Routine Brain mass Alexia Lesion of brain Speech disturbance, unspecified type Visual field defect Confusion Expected: 11/17/2022, Expires: 01/17/2023 [facility] Work Phone: Comment on above: Expected: 11/17/2022, Expires: 3 Start: 11-17-2022 End: 01-17-2023 Comprehensive metabolic 2000 panel - Serum or Plasma COMP METABOLIC PANEL Lab Routine Brain mass Alexia Lesion of brain Speech disturbance, unspecified type Visual field defect Confusion Expected: 11/17/2022, Expires: 01/17/2023 [facility] Work Phone: Comment on above: Expected: 11/17/2022, Expires: 3 Start: 11-17-2022 End: 01-17-2023 Erythrocyte sedimentation rate SED RATE WESTERGREN Lab Routine Brain mass Alexia Lesion of brain Speech disturbance, unspecified type Visual field defect Confusion Expected: 11/17/2022, Expires: 01/17/2023 [facility] Work Phone: Comment on above: Expected: 11/17/2022, Expires: 3 Start: 11-17-2022 End: 01-17-2023 FLOW CYTOMETRY PERIPHERAL BLOOD LEUK/LYMPH (FCLEUK) FLOW CYTOMETRY PERIPHERAL BLOOD LEUK/LYMPH (FCLEUK) Lab Routine Brain mass Alexia Lesion of brain Speech disturbance, unspecified type Visual field defect Confusion Expected: 11/17/2022, Expires: 01/17/2023 [facility] Work Phone: Comment on above: Expected: 11/17/2022, Expires: 3 Start: 11-17-2022 End: 01-17-2023 FUNGAL ABS WITH REFLEX, CSF FUNGAL ABS WITH REFLEX, CSF Lab Routine Brain mass Alexia Lesion of brain Speech disturbance, unspecified type Visual field defect Confusion Expected: 11/17/2022, Expires: 01/17/2023 [facility] Work Phone: Comment on above: Expected: 11/17/2022, Expires: 3 Start: 11-17-2022 End: 01-17-2023 Homocysteine [Moles/volume] in Serum or Plasma HOMOCYSTEINE Lab Routine Brain mass Alexia Lesion of brain Speech disturbance, unspecified type Visual field defect Confusion Expected: 11/17/2022, Expires: 01/17/2023 [facility] Work Phone: Comment on above: Expected: 11/17/2022, Expires: 3 Start: 11-17-2022 End: 01-17-2023 HEIDI virus DNA [Presence] in Serum or Plasma by JOHN with probe detection HEIDI VIRUS BY PCR Lab Routine Brain mass Alexia Lesion of brain Speech disturbance, unspecified type Visual field defect Confusion Expected: 11/17/2022, Expires: 01/17/2023 [facility] Work Phone: Comment on above: Expected: 11/17/2022, Expires: 3 Start: 11-17-2022 End: 01-17-2023 Methylmalonate [Moles/volume] in Serum or Plasma METHYLMALONIC ACID Lab Routine Brain mass Alexia Lesion of brain Speech disturbance, unspecified type Visual field defect Confusion Expected: 11/17/2022, Expires: 01/17/2023 [facility] Work Phone: Comment on above: Expected: 11/17/2022, Expires: 3 Start: 11-17-2022 End: 01-17-2023 MISC SEND OUT TST 1 MISC SEND OUT TST 1 Lab Routine Brain mass Alexia Lesion of brain Speech disturbance, unspecified type Visual field defect Confusion Expected: 11/17/2022, Expires: 01/17/2023 [facility] Work Phone: Comment on above: Expected: 11/17/2022, Expires: 3 Start: 11-17-2022 End: 01-17-2023 PT panel - Platelet poor plasma by Coagulation assay PROTHROMBIN TIME/PT Lab Routine Brain mass Alexia Lesion of brain Speech disturbance, unspecified type Visual field defect Confusion Expected: 11/17/2022, Expires: 01/17/2023 [facility] Work Phone: Comment on above: Expected: 11/17/2022, Expires: 3 Start: 11-17-2022 End: 01-17-2023 Reagin Ab [Titer] in Cerebral spinal fluid by VDRL VDRL CSF Lab Routine Brain mass Alexia Lesion of brain Speech disturbance, unspecified type Visual field defect Confusion Expected: 11/17/2022, Expires: 01/17/2023 [facility] Work Phone: Comment on above: Expected: 11/17/2022, Expires: 3 Start: 11-17-2022 End: 01-17-2023 SYPHILIS TOTAL W/REFLEX SYPHILIS TOTAL W/REFLEX Lab Routine Brain mass Alexia Lesion of brain Speech disturbance, unspecified type Visual field defect Confusion Expected: 11/17/2022, Expires: 01/17/2023 [facility] Work Phone: Comment on above: Expected: 11/17/2022, Expires: 3 Start: 11-17-2022 End: 01-17-2023 Thyrotropin [Units/volume] in Serum or Plasma TSH BLD Lab Routine Brain mass Alexia Lesion of brain Speech disturbance, unspecified type Visual field defect Confusion Expected: 11/17/2022, Expires: 01/17/2023 [facility] Work Phone: Comment on above: Expected: 11/17/2022, Expires: 3 Start: 11-17-2022 End: 01-17-2023 TOURTELLOTTE BLOOD TOURTELLOTTE BLOOD Lab Routine Brain mass Alexia Lesion of brain Speech disturbance, unspecified type Visual field defect Confusion Expected: 11/17/2022, Expires: 01/17/2023 [facility] Work Phone: Comment on above: Expected: 11/17/2022, Expires: 3 Start: 11-17-2022 End: 01-17-2023 [employer] PCR UN[employer] PCR Lab Routine Brain mass Alexia Lesion of brain Speech disturbance, unspecified type Visual field defect Confusion Expected: 11/17/2022, Expires: 01/17/2023 [facility] Work Phone: Comment on above: Expected: 11/17/2022, Expires: 3 Start: 10-16-2022 Procedure Education Eprescribed prescriptions (G8553) [facility]; [facility] Work Phone: Start: 09-02-2022 Procedure Education Eprescribed prescriptions (G8553) [facility]; [facility] Work Phone: Start: 09-02-2022 Provider Instructions for Treatment [facility]; [facility] Work Phone: Start: 09-02-2022 Assay of thyroid stimulating hormone tsh TSH (01381) [facility]; [facility] Work Phone: Start: 09-02-2022 Urnls dip stick/tablet reagent auto microscopy URINALYSIS, W/ MICRO ([id number]) [facility]; [facility] Work Phone: Start: 09-02-2022 Urine albumin quantitative MICROALBUMIN: CREATININE RATIO (63220) AND (55613) [facility]; [facility] Work Phone: Start: 09-02-2022 Comprehensive metabolic panel METABOLIC PANEL, COMPREHENSIVE (70208) [facility]; [facility] Work Phone: Start: 09-02-2022 Blood count complete auto&auto difrntl wbc CBC W/AUTO DIFF WBC ([id number]) [facility]; [facility] Work Phone: Start: 09-02-2022 Lipid panel LIPID PANEL (28050) [facility]; [facility] Work Phone: Start: 06-19-2022 Procedure Education Eprescribed prescriptions (G8553) [facility]; [facility] Work Phone: Start: 06-19-2022 Provider Instructions for Treatment [facility]; [facility] Work Phone: Start: 06-09-2022 Patient discharge Start: 06-08-2022 Following clinical pathway protocol Start: 06-08-2022 Aspiration precautions Start: 06-08-2022 Assessment of risk of venous thromboembolism Start: 06-08-2022 Cardiac monitoring Start: 06-08-2022 Catheterization of vein [facility] Start: 06-08-2022 Continuous pulse oximetry [facility] Start: 06-08-2022 Elevation of head of bed [facility] Start: 06-08-2022 Exercises Start: 06-08-2022 Fall prevention Start: 06-08-2022 Implementation of planned interventions Start: 06-08-2022 Incentive spirometry Start: 06-08-2022 Insertion of catheter into peripheral vein Start: 06-08-2022 Introduction of urinary catheter Start: 06-08-2022 Measuring intake and output [facility] Start: 06-08-2022 Notification of physician [facility] Start: 06-08-2022 Patient referral to dietitian Start: 06-08-2022 Providing care according to standard Start: 06-08-2022 Referral to occupational therapist Start: 06-08-2022 Referral to service Start: 06-08-2022 Speech therapy assessment [facility] Start: 06-08-2022 Tobacco use cessation education Start: 06-08-2022 Start: 06-08-2022 Verification routine Start: 06-08-2022 Admission procedure Start: 06-08-2022 Start: 06-08-2022 Oxygen therapy Start: 06-08-2022 End: 06-09-2022 Start: 06-02-2022 Patient discharge Start: 06-02-2022 Following clinical pathway protocol Start: 06-02-2022 Assessment of risk of venous thromboembolism Start: 06-02-2022 Incentive spirometry Start: 06-02-2022 Inhalation therapy procedure Start: 06-02-2022 Insertion of catheter into peripheral vein Start: 06-02-2022 Introduction of urinary catheter Start: 06-02-2022 Measuring intake and output [facility] Start: 06-02-2022 Oxygen therapy Start: 06-02-2022 Providing care according to standard Start: 06-02-2022 Provision of activity privileges Start: 06-02-2022 Referral to statistical engineer [facility] Start: 06-02-2022 Referral to service Start: 06-02-2022 Tobacco use cessation education Start: 06-02-2022 Start: 06-02-2022 Electrocardiographic procedure Start: 06-02-2022 Admission procedure Start: 06-02-2022 Verification routine Start: 06-02-2022 Blood chemistry Start: 06-02-2022 End: 06-02-2022 Start: 05-27-2022 Procedure Education Eprescribed prescriptions (G8553) [facility] Work Phone: Start: 05-27-2022 Provider Instructions for Treatment [facility]; [facility] Work Phone: Start: 05-03-2022 DEPRESSION ASSESSMENT DEPRESSION ASSESSMENT [facility] Start: 04-02-2022 Procedure Education Eprescribed prescriptions (G8553) [...] Assay of thyroid stimulating hormone tsh TSH (12108) [facility]; [facility] Work Phone: Start: 03-13-2022 Urnls dip stick/tablet reagent auto microscopy URINALYSIS, W/ MICRO (02156) [facility]; [facility] Work Phone: Start: 03-13-2022 Urine albumin quantitative MICROALBUMIN: CREATININE RATIO (09636) AND (61426) [facility]; [facility] Work Phone: Start: 03-13-2022 Comprehensive metabolic panel METABOLIC PANEL, COMPREHENSIVE (40628) [facility]; [facility] Work Phone: Start: 03-13-2022 Blood count complete auto&auto difrntl wbc CBC W/AUTO DIFF WBC (94537) [facility]; [facility] Work Phone: Start: 03-13-2022 Lipid panel LIPID PANEL (54718) [facility]; [facility] Work Phone: Start: 01-01-2022 Influenza vaccination INFLUENZA (#1) [facility] Start: 10-10-2021 Procedure Education Eprescribed prescriptions (G8553) [facility]; [facility] Work Phone: Start: 10-10-2021 Provider Instructions for Treatment [facility]; [facility] Work Phone: Start: 09-19-2021 Procedure Education Eprescribed prescriptions (G8553) [facility]; [facility] Work Phone: Start: 09-19-2021 Assay of iron IRON (76161) [facility]; [facility] Work Phone: Start: 09-19-2021 Assay of ferritin FERRITIN (55886) [facility]; [facility] Work Phone: Start: 09-19-2021 Assay of thyroid stimulating hormone tsh TSH (THYROID STIMULATING HORMONE) (84027) [facility]; [facility] Work Phone: Start: 09-19-2021 Comprehensive metabolic panel METABOLIC PANEL, COMPREHENSIVE (13436) [facility]; [facility] Work Phone: Start: 09-19-2021 Blood count complete auto&auto difrntl wbc CBC with auto diff (14924) [facility]; [facility] Work Phone: Start: 09-19-2021 Hemoglobin glycosylated a1c HGB A1C (84443) [facility] Work Phone: Start: 03-14-2021 Procedure Education Eprescribed prescriptions (G8553) [facility]; [facility] Work Phone: Start: 03-14-2021 Provider Instructions for Treatment [facility]; [facility] Work Phone: Start: 03-14-2021 Assay of thyroid stimulating hormone tsh TSH (44874) [facility]; [facility] Work Phone: Start: 03-14-2021 Lipid panel LIPID PANEL (87608) [facility]; [facility] Work Phone: [...] 07-08-2020 Fibrin dgradj products d-dimer quantitative D-Dimer (45544) [facility]; [facility] Work Phone: Start: 07-08-2020 Natriuretic peptide BNTP (95937) [facility]; [facility] Work Phone: Start: 07-08-2020 C-reactive protein high sensitivity C-REACT PROT HIGH SENS(hsCRP) (23621) [facility]; [facility] Work Phone: Start: 07-08-2020 TSH Qn TSH (90774) [facility]; [facility] Work Phone: Start: 07-08-2020 Blood count complete auto&auto difrntl wbc CBC, Platelets & Auto Diff (72435) [facility]; [facility] Work Phone: Start: 07-08-2020 Comprehensive metabolic panel Metabolic Panel, Comprehensive (10051) [facility]; [facility] Work [...] [place] influenza 2019 Novel Coronavirus (COVID-19), JOHN ([id number]) [facility] Work Phone: Start: 02-22-2020 [...] [place] influenza 2019 Novel Coronavirus (COVID-19), JOHN (79780) [facility] Work Phone: Start: 10-30-2019 Procedure Education Eprescribed prescriptions (G8553) [facility] Work Phone: Start: 10-18-2019 Procedure Education Eprescribed prescriptions (G8553) [facility] Work Phone: Start: 10-18-2019 Provider Instructions for Treatment Cholesterol mgmt [facility] Work Phone: Start: 08-31-2017 SHINGRIX VACCINE (1 of 2) SHINGRIX VACCINE (1 of 2) [facility] Start: 08-31-2012 COLOGUARD (FIT-DNA) COLOGUARD (FIT-DNA) [facility] Start: 08-31-2012 Colonoscopy COLONOSCOPY [facility] Start: 08-31-2012 COLORECTAL CANCER SCREENING COLORECTAL CANCER SCREENING [facility] Start: 08-31-[address] COLONOGRAPHY [facility] Start: 08-31-2012 DIABETES SCREEN DIABETES SCREEN [facility] Start: 08-31-2012 FECAL OCCULT BLOOD FECAL OCCULT BLOOD [facility] Start: 08-31-2012 Lipid 1996 panel - Serum or Plasma Lipid Screening [facility] Start: 08-31-2012 Lipid panel Lipid Screening [facility] Start: 08-31-2012 LIPID SCREEN LIPID SCREEN [facility] Start: 08-31-2012 Screening for malignant neoplasm of colon [facility] Start: 08-31-2012 SIGMOIDOSCOPY SIGMOIDOSCOPY [facility] Start: 2007 Mammography [facility] Start: 2007 Screening for malignant neoplasm of breast Mammogram Screening [facility] Start: 08-31-1997 HPV TESTING HPV TESTING [facility] Start: 08-31-1997 Screening for malignant neoplasm of cervix HPV Testing [facility] Start: 08-31-1988 PAP TESTING PAP TESTING [facility] Start: 08-31-1988 Screening for malignant neoplasm of cervix [facility] Start: 08-31-1986 Hepatitis B Vaccine (1 of 3 - 19+ 3-dose series) Hepatitis B Vaccine (1 of 3 - 19+ 3-dose series) [facility] Start: 08-31-1986 Pneumococcal Vaccine: 50+ (1 of 2 - PCV) Pneumococcal Vaccine: 50+ (1 of 2 - PCV) [facility] Start: 08-31-1986 Urine microalbumin profile [facility] Start: 08-31-1985 ANNUAL PCP TEAM CHRONIC DISEASE VISIT ANNUAL PCP TEAM CHRONIC DISEASE VISIT [facility] Start: 08-31-1985 Anxiety Screening Anxiety Screening [facility] Start: 08-31-1985 BP CONTROLLED (<130/80) BP CONTROLLED (<130/80) [facility] Start: 08-31-1985 Depression Screening Depression Screening [facility] Start: 08-31-1985 Hepatitis B surface antibody level LDL CHOLESTEROL [facility] Start: 08-31-1985 HEPATITIS C SCREENING HEPATITIS C SCREENING [facility] Start: 08-31-1985 HIV SCREENING HIV SCREENING [facility] Start: 08-31-1985 SPIROMETRY SPIROMETRY [facility] Start: 08-31-1973 PNEUMOCOCCAL (1 - PCV) PNEUMOCOCCAL (1 - PCV) [facility] Start: 08-31-1973 [facility] Start: 03-03-1968 COVID-19 VACCINE (#1) COVID-19 VACCINE (#1) [facility] Start: 1965 HEPATITIS B (1 of 3 - 3-dose series) HEPATITIS B (1 of 3 - 3-dose series) [facility] Start: 1965 Hepatitis B Vaccine (1 of 3 - 3-dose series) Hepatitis B Vaccine (1 of 3 - 3-dose series) [facility] Amphetamine [Mass/vo lume] in Urine Bacteria identified in Cerebral spinal fluid by Culture CSF CULT + STAIN Microbiology Routine Neoplasm of uncertain behavior of brain, supratentorial (HCC) Brain lesion Confusion Alexia Visual field defect Ordered: 02/22/2023 [facility] Work Phone: Comment on above: Ordered: 02/22/2023 BANDS OLIGOCLONAL CSF BANDS OLIG OCLONAL CSF Lab Routine Neoplasm of uncertain behavior of brain, supratentorial (HCC) Brain lesion Confusion Alexia Visual field defect Ordered: 02/22/2023 [facility] Work Phone: Comment on above: Ordered: 02/22/2023 Benzodiazepine measu rement, urine Borrelia burgdorferi DNA [Presence] in Unspecified specimen by JOHN with probe detection LYME DISEASE BY PCR Lab Routine Brain lesion 03/22/2023 9:20 AM EST [facility] Work Phone: CBC W Auto Different ial panel - Blood Cell count panel - C erebral spinal fluid CSF CELL COUNT Lab Routine Neoplasm of uncertain behavior of brain, supratentorial (HCC) Brain lesion Confusion Alexia Visual field defect Ordered: 02/22/2023 [facility] Work Phone: Comment on above: Ordered: 02/22/2023 Cell count panel - C erebral spinal fluid CSF CELL COUNT Lab Routine Brain lesion Ordered: 03/17/2023 [facility] Work Phone: Comment on above: Ordered: 03/17/2023 Cocaine measurement, urine W [facility]o lic 2000 panel - Serum or Plasma CSF COLLECTION TUBE PERFORMABLE TUBE 1 [facility] Work Phone: Comment on above: Ordered: 02/22/2023 End: 03-22-2023 CSF COLLECTION TUBE PERFORMABLE TUBE 1 [facility] Work Phone: Comment on above: Once for 1 Occurrences starting 03/22/20 until 03/22/2023 CSF ROUT ANALYSIS CSF ROUT JOHANN SIS Lab Routine Neoplasm of uncertain behavior of brain, supratentorial (HCC) Brain lesion Confusion Alexia Visual field defect Ordered: 02/22/2023 [facility] Work Phone: Comment on above: Ordered: 02/22/2023 CYTOLOGY NON-SEAFOOD HARVESTER CYTOLOGY NON-GY N Lab Routine Brain mass Alexia Lesion of brain Speech disturbance, unspecified type Visual field defect Confusion Ordered: 11/17/2022 [facility] Work Phone: Comment on above: Ordered: 11/17/2022 CYTOLOGY NON-SEAFOOD HARVESTER CYTOLOGY NON-GY N Lab Routine Neoplasm of uncertain behavior of brain, supratentorial (HCC) Brain lesion Confusion Alexia Visual field defect Ordered: 02/22/2023 [facility] Work Phone: Comment on above: Ordered: 02/22/2023 CYTOLOGY NON-SEAFOOD HARVESTER CYTOLOGY NON-GY N Lab Routine Brain lesion Ordered: 03/17/2023 [facility] Work Phone: Comment on above: Ordered: 03/17/2023 ECG COMPLETE ECG COMPLETE ECG Routine Pre-op evaluation 11/02/2022 11:42 AM EDT [facility] Work Phone: End: 06-24-2023 ECHO TRANSESOPHAGEAL ECHO TRANSESOPHAGEAL Cardiology Routine Arterial ischemic stroke (HCC) 1 Occurrences starting 06/24/2022 until 06/24/2023 [facility] Work Phone: Comment on above: 1 Occurrences starting 06/24/2022 until 06/24/2023 EPIL EEG LONG EPIL EEG LONG NEUROLOGY Routine Seizures (HCC) Ordered: 12/22/2023 [facility] Work Phone: Comment on above: Ordered: 12/22/2023 EXTRA TUBES EXTRA TUBES Lab Routine Neoplasm of uncertain behavior of brain, supratentorial (HCC) Brain lesion Confusion Alexia Visual field defect Ordered: 02/22/2023 [facility] Work Phone: Comment on above: Ordered: 02/22/2023 FUNGAL CSF CULT/CAD FUNGAL CSF C ULT/CAD Microbiology Routine Brain mass Alexia Lesion of brain Speech disturbance, unspecified type Visual field defect Confusion Ordered: 11/17/2022 [facility] Work Phone: Comment on above: Ordered: 11/17/2022 FUNGAL CSF CULT/CAD FUNGAL CSF C ULT/CAD Microbiology Routine Neoplasm of uncertain behavior of brain, supratentorial (HCC) Brain lesion Confusion Alexia Visual field defect Ordered: 02/22/2023 [facility] Work Phone: Comment on above: Ordered: 02/22/2023 Glucose [Mass/volume ] in Cerebral spinal fluid GLUCOSE CSF Lab Routine Neoplasm of uncertain behavior of brain, supratentorial (HCC) Brain lesion Confusion Alexia Visual field defect Ordered: 02/22/2023 [facility] Work Phone: Comment on above: Ordered: 02/22/2023 Hemoglobin A1c/Hemoglobin.total in Blood IR LUMBAR PUNCTURE DIAGNOSTIC ([facility]) IR LUMBAR PUNCTURE DIAGNOSTIC ([facility]) Radiology Routine Neoplasm of uncertain behavior of brain, supratentorial (HCC) Brain lesion Confusion Alexia Visual field defect Ordered: 02/22/2023 [facility] Work Phone: Comment on above: Ordered: 02/22/2023 Lipid 1996 panel - S abdoulaye or Plasma Magnesium measurement [facility] Measurement of 3,4-methylenedioxymethamphe tamine in urine Methadone measuremen t, urine Microorganism identi fied in Unspecified specimen by Culture AFB CULT + STAIN Microbiology Routine Neoplasm of uncertain behavior of brain, supratentorial (HCC) Brain lesion Confusion Alexia Visual field defect 03/22/2023 9:20 AM [employer] [facility] Work Phone: MISC SEND OUT TST 1 MISC SEND OU T TST 1 Lab Routine Brain lesion 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 Visual field defect 03/22/2023 9:20 AM [employer] [facility] Entitle Work Phone: End: 08-20-2024 MR Brain WO and W contrast IV MRI BRAIN WO/W IVCON Radiology Routine Brain lesion 1 Occurrences starting 07/22/2023 until 08/20/2024 [facility] Work Phone: Comment on above: 1 Occurrences starting 07/22/2023 until 08/20/2024 End: 11-23-2024 MR Brain WO and W contrast IV MRI BRAIN WO/W IVCON Radiology Routine Brain lesion 1 Occurrences starting 10/25/2023 until 11/23/2024 [facility] Work Phone: Comment on above: 1 Occurrences starting 10/25/2023 until 11/23/2024 End: 02-24-2025 MR Brain WO and W contrast IV MRI BRAIN WO/W IVCON Radiology Routine Brain lesion 1 Occurrences starting 01/26/2024 until 02/24/2025 [facility] Work Phone: Comment on above: 1 Occurrences starting 01/26/2024 until 02/24/2025 End: 05-24-2025 MR Brain WO and W contrast IV MRI BRAIN WO/W IVCON Radiology Routine Brain lesion 1 Occurrences starting 04/24/2024 until 05/24/2025 [facility] Work Phone: Comment on above: 1 Occurrences starting 04/24/2024 until 05/24/2025 End: 11-15-2025 MR Brain WO and W contrast IV MRI BRAIN WO/W IVCON Radiology Routine Brain lesion 1 Occurrences starting 10/16/2024 until 11/15/2025 [facility] Work Phone: Comment on above: 1 Occurrences starting 10/16/2024 until 11/15/2025 End: 07-25-2023 Mri brain brain stem w/o w/contrast material MRI BRAIN WO/W IVCON Radiology Routine Cerebral infarction, unspecified mechanism (HCC) 1 Occurrences starting 06/25/2022 until 07/25/2023 [facility] Work Phone: Comment on above: 1 Occurrences starting 06/25/2022 until 07/25/2023 End: 12-12-2023 Mri brain brain stem w/o w/contrast material MRI BRAIN WO/W IVCON Radiology Routine Glioma (HCC) 1 Occurrences starting 11/12/2022 until 12/12/2023 [facility] Work Phone: Comment on above: 1 Occurrences starting 11/12/2022 until 12/12/2023 End: 03-24-2024 Mri brain brain stem w/o w/contrast material MRI BRAIN WO/W IVCON Radiology Routine Brain lesion 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 Occurrences starting 02/23/2023 until 03/24/2024 [facility] Work Phone: Comment on above: 1 Occurrences starting 02/23/2023 until 03/24/2024 End: 03-24-2024 Mri spinal canal cervical w/o & w/contr matrl MRI CERVICAL SPINE WO/W IVCON Radiology Routine Brain lesion 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 Occurrences starting 02/23/2023 until 03/24/2024 [facility] Work Phone: Comment on above: 1 Occurrences starting 02/23/2023 until 03/24/2024 End: 03-24-2024 Mri spinal canal thoracic w/o & w/contr matrl MRI THORACIC SPINE WO/W IVCON Radiology Routine Brain lesion 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 B prohormone N-Terminal [Mass/volume] in Serum or Plasma NM Heart Views W str ess and W radionuclide IV OLIGOCLONAL BAND CSF OLIGOCLONAL BAND CSF Lab Routine Neoplasm of uncertain behavior of brain, supratentorial (HCC) Brain lesion Confusion Alexia Visual field defect Ordered: 02/22/2023 [facility] Work Phone: Comment on above: Ordered: 02/22/2023 OLIGOCLONAL CSF IGG OLIGOCLONAL CSF IGG Lab Routine Neoplasm of uncertain behavior of brain, supratentorial (HCC) Brain lesion Confusion Alexia Visual field defect Ordered: 02/22/2023 [facility] Work Phone: Comment on above: Ordered: 02/22/2023 Patient Education [facility] Work Phone: Patient referral [facility] Work Phone: pH of Urine [facility] Phencyclidine [Prese nce] in Urine Protein [Mass/volume ] in Cerebral spinal fluid PROTEIN CSF Lab Routine Neoplasm of uncertain behavior of brain, supratentorial (HCC) Brain lesion Confusion Alexia Visual field defect Ordered: 02/22/2023 [facility] Work Phone: Comment on above: Ordered: 02/22/2023 Reagin Ab [Titer] in Cerebral spinal fluid by VDRL VDRL CSF Lab Routine Neoplasm of uncertain behavior of brain, supratentorial (HCC) Brain lesion Confusion Alexia Visual field defect Ordered: 02/22/2023 [facility] Work Phone: Comment on above: Ordered: 02/22/2023 Thyroid stimulating hormone measurement TOURTELLOTTE CSF TOURTELLOTTE CS F Lab Routine Brain mass Alexia Lesion of brain Speech disturbance, unspecified type Visual field defect Confusion Ordered: 11/17/2022 [facility] Work Phone: Comment on above: Ordered: 11/17/2022 TOURTELLOTTE CSF TOURTELLOTTE CS F Lab Routine Neoplasm of uncertain behavior of brain, supratentorial (HCC) Brain lesion Confusion Alexia Visual field defect Ordered: 02/22/2023 [facility] Work Phone: Comment on above: Ordered: 02/22/2023 TOURTELLOTTE CSF TOURTELLOTTE CS F Lab Routine Neoplasm of uncertain behavior of brain, supratentorial (HCC) Brain lesion Confusion Alexia Visual field defect Ordered: 02/22/2023 [facility] Work Phone: Comment on above: Ordered: 02/22/2023 Urine barbiturate measurement Urine cannabinoid measurement Urine opiate measurement [facility] Work [...] nternal Medicine; [facility] Work Phone: [facility] ANGIO HB6 [facility] Immunizations Immunization Date Immunization Notes Care Provider Toni barlow 03-09-2018 influenza, injectabl e, quadrivalent, preservative free Jim Pinedo MD Work Phone: [facility] 03-09-2018 influenza virus vacc ine, unspecified formulation Americo Haney DO Work Phone: [facility] Payers Date Payer Category Payer Self-pay [id number] 2024 Unknown [id number] 2023 Private Health Insurance [id number] 2022 [employer] Blue Shield [id number] [id number] 2022 Private Health Insurance [id number] 2022 Unknown 2022 Unknown [id number] 2021 Unknown [id number] 2019 Private Health Insurance [id number] 1967 Unknown [id number] 2.16.8 [id number] 1967 Unknown [id number] 2.16.8 [id number] 1967 Unknown [id number] 2.16.8 [id number] 1967 Unknown [id number] 2.16.8 [id number] 1967 Unknown [id number] 2.16.8 [id number] 1967 Unknown [id number] 2.16.84 [id number] 1959 Private Health Insurance [id number] 1959 Unknown [id number] Medicare [id number] Unknown [id number] Unknown [id number] 2.16.8 [id number] Unknown [id number] 2.16.8 [id number] Unknown [id number] 2.16.8 [id number] Unknown [id number] 2.16.8 [id number] Unknown [id number] 2.16.8 [id number] Unknown [id number] 2.16.8 [id number] Unknown [id number] 2.16.8 [id number] Social History Date Type Detail Facility Start: 08-25-2022 End: 10-27-2022 No Drug Use No Drug Use [facility] Work Phone: Start: 10-08-2021 End: 10-05-2022 Tobacco smoking status RUST Unknown if ever smoked Start: 06-25-2020 None Start: 06-25-2020 Spouse/ Significant Other Start: 1965 Sex Assigned At Female Start: 1965 Sex Assigned At Not on file [facility] Start: 08-25-2022 End: 01-28-2024 Tobacco smoking status NHIS Occasional tobacco smoker [facility] History of tobacco use Cigarette Smoker [facility] Start: 08-25-2022 End: 01-28-2024 Tobacco use and exposure Smokeless tobacco non-user [facility] Start: 10-27-2022 End: 11-12-2022 Alcohol intake Lifetime non-drinker (finding) [facility] Start: 11-02-2022 Tobacco Comment Trying to quit currently Used to smoke a pack per day on average [facility] Start: 11-05-2022 History SDOH Financial 5 [facility] Start: 11-05-2022 History SDOH Food Worry 1 [facility] Start: 11-05-2022 History SDOH Transport Med 2 [facility] Start: 10-27-2022 End: 11-12-2022 Tobacco use panel [facility] Work Phone: Start: 06-17-2022 How hard is it for you to pay for the very basics like food, housing, medical care, and heating Not hard at all [facility] Work Phone: (I/We) worried whether (my/our) food would run out before (I/we) got money to buy more. Never true [facility] Work Phone: In the past 12 months, was there a time when you were not able to pay the mortgage or rent on time? No [facility] Work Phone: Start: 12-15-2022 End: 01-28-2024 Alcohol intake Ex-drinker (finding) [facility] History of tobacco use Passive smoker [facility] Start: 11-24-2024 Tobacco smoking status COIS Smokes tobacco daily (finding) Medical Equipment Procedure Code Equipment Code Equipment [...] Assessment Result Facility 06-09-2022 Functional status Ambulates [facility] Work Phone: 06-02-2022 Functional status Up ad harry [facility] Work Phone: Mental Status Date Assessment Result Facility 06-09-2022 Cognitive function Voice/Name [facility] Work Phone: 06-08-2022 Cognitive function Voice/Name [facility] Work Phone: 06-02-2022 Cognitive function Awake;Alert;A ppropriate;Fol lows [employer] Work Phone: 10-08-2021 Cognitive function Voice/Name [facility] Work Phone: Clinical Notes 05-21-2022 to 01-25-2025 Telephone Encounter - Echo Madrigal PA-C - 12/18/2024 12:26 PM EDTTelephone Encounter - Echo Madrigal PA-C - 12/18/2024 12:26 PM EDTTelephone Encounter - RolandEdwige - 12/18/2024 11:26 AM EDT Note Date & Type Note Facility 01-25-2025 Note HNO ID: [id number] Author: TANIA MONROY MD Service: ? Author Type: Physician Type: Progress Notes Filed: 02/01/2025 08:45 Note Text: [facility] Patient Name: Josie Landis Date of : 1965 ESTABLISHED EPILEPSY CLINIC NOTE 01/25/2025 9:00 AM Reason for Visit: Seizures and Follow Up Clinical Summary: Ms. Landis is a 59 year old right-handed female seen in [facility]. HISTORY OF PRESENT ILLNESS Handedness: right-handed Age [...] History of bipolar disorder Interval Seizure History Last seen on 06/21/[address] Flores. At the last visit, Trileptal was continued 450 mg BID with plans to obtain OXCBZ levels and plan to follow up with brain tumor. Pt had not had any new seizures Patient is currently taking trileptal 450 mg BID. There are no reports of side effects. Reports compliance, takes medications at 10a, 8-9pm. There have been 5-10 seizures since the last visit. Last seizure this past Wednesday01/19/25. 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 Episodes often happen when already laying down or even asleep. Patient reports a new type of episode which occurred just once in December of this year. This episode involved a sudden drop from standing without associated aura. Patient fell backwards and lost consciousness with significant confusion and difficulty moving on awakening. Pt also with generalized limb shaking observed by during this event. Pt is following with brain tumor team. Most recent MRI without change with no plan for intervention at this time. Plan is for repeat MRI in April 2025 and follow up with purvi tumor at that time. In other health, having frequent episodes of urinary incontinence and new worsening hip pain. Primary care is working these up. Mood: Sees psychiatrist, on new medicine (Caplyta) which patient reports has improved anxiety. Sleep: Horrible due to pain, frequent awakening, and some anxiety. Has been taking THC gummies with some relief. Working: on disability Driving: Short trips Total # of Current Anti-seizure Medications: Side Effects to Current Anti-seizure Medications: Seizure Frequency at First Visit: Longest Seizure-free Interval: Number of seizure types: 2 Seizure-related driving accidents: No Driving: No Lives Alone: No CURRENT OUTPATIENT ANTISEIZURE MEDICATIONS (as of the start of the encounter) OXcarbazepine (TRILEPTAL) 300 mg tablet 1 and a half tablet bid clonazePAM (KLONOPIN) 0.5 mg tablet Take 0.5 mg by mouth twice daily as needed fo (more content not included)... [facility] 12-18-2024 Telephone encounter Note The following approved medication requests have been transmitted electronically. Requested Prescriptions Signed Prescriptions Disp Refills OXcarbazepine (TRILEPTAL) 300 mg tablet 270 tablet 2 Si and a half tablet bid Authorizing Provider: ECHO MADRIGAL PA-C [facility] 12-18-2024 Miscellaneous Notes The following approved medication requests have been transmitted electronically. Requested Prescriptions Signed Prescriptions Disp Refills OXcarbazepine (TRILEPTAL) 300 mg tablet 270 tablet 2 Si and a half tablet bid Authorizing Provider: ECHO MADRIGAL PA-C Prescription Refill: Requested by: patient Please E-Scribe Caller Contact Number: Pharmacy Name: [facility] Pharmacy Number: [phone] Generic/ brand: 30 or 90 day supply requested: 90 Last appointment: 06/21/24 Next Appointment: 01/25/[address] Mark Landis [id number] [facility] [id number] documented in this encounter [facility] 12-18-2024 Telephone encounter Note Prescription Refill: Requested by: patient Please E-Scribe Caller Contact Number: Pharmacy Name: [facility] Pharmacy Number: [phone] Generic/ brand: 30 or 90 day supply requested: 90 Last appointment: 06/21/24 Next Appointment: 01/25/[address] 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 - See your local eye doctor (clean out driller helper) within the next few days for an updated glasses prescription. - Call the [facility] neuro-ophthalmology clinic at the telephone number provided in your chart to make an appointment with an straight edger--confirm the provider is an MD, not an clean out driller helper. - If you don t hear back from the neuro-ophthalmology clinic after your first call, call again to ensure your appointment is scheduled. - Return for oncology follow-up in April after your MRI results are available. documented in this encounterL[facility]06-13-2025 NoteHNO ID: [id number] Author: CODIE SOTO MD Service: ? Author Type: Physician Type: Progress Notes Filed: 10/14/2024 01:36 Note Text: [facility] [place] [facility] NEURO-ONCOLOGY VIRTUAL VISIT NOTE This is a virtual visit using HIPAA compliant video platform. It required patient-provider interaction for the medical decision making as documented below. I have communicated my name and active licensure. The patient's identity and physical location were verified at the time of this visit. Either the patient or their legal product sales representative has been informed of the risks [...] prescription. She was previously seen by a neuro-waterproof coating machine tender at the [facility], who has since left. Past Diagnostic Results: [...] recent glasses. - Referred to neuro-ophthalmology at [facility]; provided contact information for scheduling. - Advised to see local clean out driller helper in [place] for immediate evaluation. - Emphasized importance of being seen by an straight edger if neuro-ophthalmology appointment is delayed. -Referral to [...] see the patient, at least 50% of [id number] patient care, completing clinical documentation, obtaining and/or [...] [facility] [place], [place] CC: CC -Carlos Jovel MD, Neurosurgery, [facility], [facility] [place], [facility] CC: Rad Pro DO, Vascular Neurology, [facility] CC: Dr. Solis Cool DO, PCP, [address], [facility] [id number], ; -Harlan Lozano MD, Neurology/Neuroimmunology, [facility] -David Rios MD, Neuro-ophthalmology, [facility] -Americo Haney DO, Infectious Disease, [facility] -Rich Gudino MD, Neuro-Immunology, Neurology, [facility] -Berto Albarado MD, Neuro-Immunology, Neurology, [facility] -Jim Pinedo MD, Neuro Infectious Diseases, [facility] 10-13-2024 History of Present illness Narrative* Codie Soto MD - 10/13/2024 11:04 AM EDT Images from the original note were not included. [facility] NEURO-ONCOLOGY VIRTUAL VISIT NOTE This is a virtual visit using HIPAA compliant video platform. It required patient-provider interaction for the medical decision making as documented below. I have communicated my name and active licensure. The patient's identity and physical location wereverified at the time of this visit. Either the patient or their legal product sales representative has been informed of the risks [...] prescription. She was previously seen by a neuro-waterproof coating machine tender at the [facility], who has since left. Past Diagnostic Results: [...] recent glasses. - Referred to neuro-ophthalmology at [facility]; provided contact information for scheduling. - Advised to see local clean out driller helper in [place] for immediate evaluation. - Emphasized importance of being seen by an straight edger if neuro- ophthalmology appointment is delayed. -Referral [...] but I encourage them to call the [facility] Center with any questions or concerns. I spent a total of 40 minutes on the date of the service which included preparing to see the patient, at least 50% of [id number] patient care, completing clinical documentation, obtaining and/or [...] [facility] [place], [place] CC: CC -Carlos Jovel MD, Neurosurgery, [facility], [facility] [place], [facility] CC: Rad Pro DO, Vascular Neurology, [facility] CC: Dr. Solis Cool, , PCP, [address] [place] [address] [address], [facility] [id number], ; -Harlan Lozano MD, Neurology/Neuroimmunology, [facility] -David Rios MD, Neuro-ophthalmology, [facility] -Americo Haney DO, Infectious Disease, [facility] -Rich Gudino MD, Neuro-Immunology, Neurology, [facility] -Berto Albarado MD, Neuro-Immunology, Neurology, [facility] -Jim Pinedo MD, Neuro Infectious Diseases, [facility] documented in this encounterL[facility]06-[facility] Progress note* Result Encounter Note - Codie Soto MD - 10/11/2024 2:05 PM EDT I have reviewed this test results, Oct 11 2024 MRI BRAIN I will go over the results with the patient at the upcoming appointment. Codie Soto MD [facility]06-11-2025 Miscellaneous Notes* Result Encounter Note - Codie Qiu MD - 10/11/2024 2:05 PM EDT I have reviewed this test results, Oct 11 2024 MRI BRAIN I will go over the results with the patient at the upcoming appointment. Codie Soto MD documented in this encounterLanc[facility]06-11-2025 History of Present illness Narrative* David Justice [...] PATIENT PRESENTS WITH AN IMPLANTABLE OR ATTACHED REGISTERED NURSE CARDIAC TELEMETRY: No ALLERGIES: Reviewed and unchanged CONTRAST ALLERGY: [...] 2024 TIME: 10:43 AM documented in this encounterLanc[facility]06-11-2025 NoteHNO ID: [id number] Author: DAVID JUSTICE RT(R) Service: ? Author [...] PATIENT PRESENTS WITH AN IMPLANTABLE OR ATTACHED REGISTERED NURSE CARDIAC TELEMETRY: No ALLERGIES: Reviewed and unchanged CONTRAST ALLERGY: NO. EXAM: MRI - CONTRAST TYPE: GROUP II PERIPHERAL IV DATA: Ambulatory: A peripheral IV was started in the Right antecubital site with a Angio cath: 20 gauge. RADIOLOGY DEPARTMENT: MR; Exam(s) Completed: Head: Routine Brain with Perfusion. Lavender Administered: No SIGNATURE: David Justice, (R) PATIENT NAME: Josie Landis DATE: October 11, 2024 TIME: 10:43 [facility]02-19-2025 NoteHNO ID: [id number] Author: TANIA MONROY MD Service: ? Author Type: Physician Type: Progress Notes Filed: 06/21/2024 10:02 Note Text: [facility] Patient Name: Josie Landis Date of : 1965 ESTABLISHED EPILEPSY CLINIC NOTE 06/21/2024 10:00 AM Reason for Visit: Epilepsy Clinical Summary: Ms. Landis is a 58 year old right-handed female seen in [facility]. We had a visit using: BOOK A TIGER I received consent from the patient to perform the visit using this platform. I have communicated my name and active licensure. The patient's identity and physical location were verified at the time of this visit. Either the patient or their legal product sales representative has been informed of the risks [...] - Seizure risk fac (more content not included)...[facility] 06-21-2024 History of Present illness Narrative* Tania Monroy MD - 06/21/2024 9:50 AM EST [facility] Patient Name: Josie Landis Date of : 1965 ESTABLISHED EPILEPSY CLINIC NOTE 06/21/2024 10:00 AM Reason for Visit: Epilepsy Clinical Summary: Ms. Landis is a 58 year old right-handed female seen in [facility]. We had a visit using: BOOK A TIGER I received consent from the patient to perform the visit using this platform. I have communicated my name and active licensure. The patient's identity and physical location wereverified at the time of this visit. Either the patient or their legal product sales representative has been informed of the risks [...] - Seizure risk factors: Brain Tumor Unanswered 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 Infections Unanswered Developmental Delay Unanswered Family history [...] instructed. evolocumab 140 mg/mL subcutaneous pen injector ([employer]) Inject 140 mg subcutaneously every 2 weeks. [...] Coronary artery disease Coronary artery disease involving guidiville coronary artery of guidiville heart without angina pectoris 11/02/2022 Gastroesophageal reflux [...] No Family History SOCIAL HISTORY: -Lives in [place], [place] -Patient lives alone? No -Patient driving? [...] which included preparing to see the patient, [id number] patient care, and completing clinical documentation. Tania Salmon M.D documented in this encounterLanc[facility]12-13-2024 NoteHNO ID: [id number] Author: CODIE SOTO MD Service: ? Author Type: Physician Type: Progress Notes Filed: 04/23/2024 00:03 Note Text: [facility] [facility] NEURO-ONCOLOGY VIRTUAL VISIT NOTE This is a virtual visit using HIPAA compliant video platform. It required patient-provider interaction for the medical decision making as documented below. I have communicated my name and active licensure. The patient's identity and physical location were verified at the time of this visit. Either the patient or their legal product sales representative has been informed of the risks [...] her peripheral vision 06/08/22, she went to for the above issues.Admitted for the above. 06/13/[address] [facility] [address] Heide Duff. Had a Rt Homonymous hemianopsia. 06/24/2022She saw cerebrovascular/stroke neurologist Dr. Pro and did extensive work up for possible CVA. 10/21/22, Dr. 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 11/04/22. Dr. Feliz performed a [...] expedited work up, under Dr. Lozano neuro cra. . Discharged : Had extensive work up [...] cheek Bipolar affective (HCC) Coronary artery disease Brown (more content not included)...[facility]12-13-2024 History of Present illness Narrative* Codie Soto MD - 04/14/2024 10:35 AM EST Images from the original note were not included. [facility] [place] [facility] NEURO-ONCOLOGY VIRTUAL VISIT NOTE This is a virtual visit using HIPAA compliant video platform. It required patient-provider interaction for the medical decision making as documented below. I have communicated my name and active licensure. The patient's identity and physical location wereverified at the time of this visit. Either the patient or their legal product sales representative has been informed of the risks [...] her peripheral vision 06/08/22, she went to for the above issues.Admitted for the above. 06/13/[address] [facility] Heide Duff. Had a Rt Homonymous hemianopsia. 06/24/2022She saw cerebrovascular/stroke neurologist Dr. Pro and did extensive work up for possible CVA. 10/21/22, Dr. 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 11/04/22. Dr. Feliz performed a [...] expedited work up, under Dr. Lozano neuro cra. . Discharged : Had extensive work up [...] Coronary artery disease Coronary artery disease involving guidiville coronary artery of guidiville heart without angina pectoris 11/02/2022 Gastroesophageal reflux [...] Lymph 1.00 - 4.00 k/uL 1.43 Abs Fallon <0.87 k/uL 0.40 Abs Eosin <0.46 k/uL [...] 123 U/L 88 Final Pathology: SURGICAL PATHOLOGY: [id number] Order: [id number] Collected 11/04/2022 11:13 AM Status: Final result [...] agree. Imaging: Results MRI BRAIN WO/W IVCON (Acc#[id number]) (Order [id number]) Patient Info Patient Name Sex Josie Santos ([id number]) Female 1965 04/12/2024 1:02 PM - Radiology, [...] glioma, she referred the patient to our [facility] for evaluation, On 11/02/22, she had a biopsy by Dr. Jovel, neurosurgeon at the [facility]. The pathology is basically non diagnostic. Has [...] Pro from cerebrovascular/stroke neurology. 8-Follow with her statistical engineer for her CAD, S/p coronary artery stents. 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 For now, as she had episodes ofconduction [...] ( from the CT done on 11/25/2022). [facility] note [facility] Dr. Cool. 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 Based on her duties, I think [...] see the patient, at least 50% of dyxd-cj-kjbo patient care, completing clinical documentation, obtaining and/or [...] [facility], [place], [place] CC: CC -Carlos Jovel MD, Neurosurgery, [facility], [facility], [facility], [facility] CC: Rad Pro DO, Vascular Neurology, [facility] CC: Dr. Solis Cool DO, PCP, [address] [place] [address] [address] [id number], ; -Harlan Lozano MD, Neurology/Neuroimmunology, [facility] -David Rios MD, Neuro-ophthalmology, [facility] -Americo Haney DO, Infectious Disease, [facility] -Rich Gudino MD, Neuro-Immunology, Neurology, [facility] -Berto Albarado MD, Neuro-Immunology, Neurology, [facility] -Jim Pinedo MD, Neuro Infectious Diseases, [facility] documented in this encounterLanc[facility]12-11-2024 NoteHNO ID: [id number] Author: PAULA BLAKE RT(R) Service: ? Author [...] PATIENT PRESENTS WITH AN IMPLANTABLE OR ATTACHED REGISTERED NURSE CARDIAC TELEMETRY: No ALLERGIES: Reviewed and unchanged CONTRAST ALLERGY: NO. EXAM: MRI - CONTRAST TYPE: GROUP II PERIPHERAL IV DATA: Ambulatory: A peripheral IV was started in the Right antecubital site with a Angio cath: 20 gauge. RADIOLOGY DEPARTMENT: MR; Exam(s) Completed: Head: Routine Brain with Perfusion SIGNATURE: Paula Blake, RT(R) PATIENT NAME: Josie Landis DATE: April 12, 2024 TIME: 10:56 [facility]09-27-2024 History of Present illness Narrative* Tania Monroy MD - 01/28/2024 3:15 PM EDT [facility] [place] [facility] Patient Name: Josie TERRAZAS Date of : 1965 Referring Provider: Libertad Santiago [address] [facility] [address] [facility] [address] INITIAL EPILEPSY CLINIC NOTE 01/28/2024 2:00 PM CHIEF COMPLAINT: New Patient HISTORY OF PRESENT ILLNESS Ms. Landis is a 58 year old right-handed female seen in [facility] for initial consultation. 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 No -Patient driving? [...] which included preparing to see the patient, qgfu-rq-[id number] patient care, and completing clinical documentation. Tania Salmon M.D documented in this encounterLancaster [facility] Hospital09-27-2024 Instructions* Patient Instructions* Tania Monroy MD - 01/28/2024 3:13 PM EDT Trileptal 300 mg Week 1: Half a tablet twice a day Week 2: One tablet twice a day Week 3: One and a half tablet twice a day Call the office if you have questions or concerns at [phone] Follow up in 3 months Tania Salmon M.D documented in this encounterLancaster [facility] Hospital09-25-2024 History of Present illness Narrative* Annamaria Ibarra APRN.MARKETING AND OUTREACH COORDINATOR - 01/26/2024 8:45 AM EDT Images from the original note were not included. [facility] [place] [facility] NEURO-ONCOLOGY VIRTUAL VISIT NOTE I have communicated my name and active licensure. The patient's identity and physical location wereverified at the time of this visit. Either the patient or their legal product sales representative has been informed of the risks and benefits of -- and alternatives to -- treatment through a remote evaluation andconsents to proceed with the evaluation remotely. This is a virtual visit using [employer] Zoom Video Visit. It required patient- provider interaction [...] Coronary artery disease Coronary artery disease involving guidiville coronary artery of guidiville heart without angina pectoris 11/02/2022 Gastroesophageal reflux [...] DATE OF EXAM: Jan 17 2024 10:40AM [facility] 0295 - MRI BRAIN WO/W IVCON / [...] without enhancement, reduced diffusivity or perfusional abnormality. Glue Bone Crusher: RHIANNON Transcribe Date/Time: Jan 17 2024 11:15A [...] obtaining and/or reviewing separately obtained history Annamaria Ibarra APRN.CNP Certified Nurse Practitioner cc: Codie Soto MD--EPIC documented in this encounterLancaster Municipal Hospital09-16-2024 History of Present illness Narrative* David Justice RT(Irving) - 01/17/2024 10:00 AM EDT Radiology Service [...] PATIENT PRESENTS WITH AN IMPLANTABLE OR ATTACHED REGISTERED NURSE CARDIAC TELEMETRY: No ALLERGIES: Reviewed and unchanged CONTRAST ALLERGY: NO. EXAM: MRI - CONTRAST TYPE: GROUP II PERIPHERAL IV DATA: Ambulatory: A peripheral IV was started in the Left antecubital site with a Angio cath: 20 gauge. RADIOLOGY DEPARTMENT: MR; Exam(s) Completed: Head: Routine Brain with Perfusion SIGNATURE: RT Hayden(Irving) PATIENT NAME: Josie Landis DATE: January 17, 2024 TIME: 10:18 AM documented in this encounterLancaster [facility] Hospital08-21-2024 History of Present illness Narrative* Nena Smith APRN.CNP - 12/22/2023 1:03 PM EDT [facility] Review of Records Patient: Josie Landis Address: [address] [place] [address] Impression: Review of records for Josie Landis, a 58 year old female, being referred by Libertad Santiago CNP [[facility]] to Any Epileptologist for further [...] cell ca, bipolar disorder, PNES PRIOR EVALUATIONS: [facility] EEG (Report not available): MRI brain wo/w contrast ([facility], 10/19/2023): IMPRESSION: Unchanged appearance of the brain compared to most recent MRI performed 07/19/2023 with no new or enlarging lesions identified. No abnormal enhancement. Primary differential considerations include sequelae of nonspecific inflammatory and 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 process with neoplasm considered less likely. Brain biopsy ([facility], 11/04/2022): Component FINAL DIAGNOSIS A. Brain, right [...] for VEEG monitoring, diagnostic evaluation Location: [place] - Visit with epileptologist prior to admission - Additional testing to be considered by epilepsy clinicians Signed: Nena Smith APRN.MARKETING AND OUTREACH COORDINATOR December 22, [address] Gama for review and recommendations. Recommendations (as discussed with Dr. Gama): - Please start with a long EEG and consultation with an Epileptologist. documented in this encounterL[facility]24 NoteHNO ID: [id number] Author: LIBERTAD SANTIAGO APRN.CHARLIE Service: ? Author Type: Nurse Practitioner Type: Progress Notes Filed: 12/02/2023 17:28 Note Text: [facility] Virtual Visit I have communicated my name and active licensure. The patient's identity and physical location were verified at the time of this visit. Either the patient or their legal product sales representative has been informed of the risks and benefits of -- and alternatives to -- treatment through a remote evaluation and consents to proceed with the evaluation remotely. Consultation is requested by: No referring provider defined for this encounter. PCP: Solis Cool DO ([place]) [address] [place] [address] CEREBROVASCULAR HISTORY Josie Landis is a 58 year old right-handed female. She was initially evaluated by Dr. 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 From her note: 06/08/2022 - with c/o increasing confusion and aphasia. On [...] callosum has changed -they were going to [facility], her eyes rolled back, said both her [...] artery disease 11/02/2022: Coronary artery disease involving guidiville coronary artery of guidiville heart without angina pectoris 11/02/2022: Gastroesophageal reflux [...] Never Tobacco comments: Tryi (more content not included)...[facility]08-01-2024 History of Present illness Narrative* Libertad Santiago APRN.MARKETING AND OUTREACH COORDINATOR - 12/02/2023 3:29 PM EDT [facility] Virtual Visit I have communicated my name and active licensure. The patient's identity and physical location wereverified at the time of this visit. Either the patient or their legal product sales representative has been informed of the risks and benefits of -- and alternatives to -- treatment through a remote evaluation andconsents to proceed with the evaluation remotely. Consultation is requested by: No referring provider defined for this encounter. PCP: Solis Cool DO ([place]) [address] [place] [address] CEREBROVASCULAR HISTORY Josie Landis is a 58 year old right-handed female. She was initially evaluated by Dr. 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 From her note: 06/08/2022 - with c/o increasing confusion and aphasia. On [...] corpus callosum haschanged -they were going to [facility], her eyes rolled back, said both her [...] artery disease 11/02/2022: Coronary artery disease involving guidiville coronary artery of guidiville heart without angina pectoris 11/02/2022: Gastroesophageal reflux [...] cerebrovascular in nature. Following in Brain Tumor clinic and [facility] PLAN Consult to Epilepsy Continue to follow up with Brain Tumor clinic and [facility] No cerebrovascular follow up at this time Medical Decision Making: Medical Decision Making Level: 1 - N/A I spent a total of 36 minutes on the date of service which included preparing to see the patient, [id number] patient care, completing clinical documentation, obtaining and/or reviewing separately obtained history, performing a medically appropriate examination, counseling and educating the patient/family/caregiver, independently interpreting results (not separately reported), communicating results to the patient/family/caregiver, and care coordination (not separately reported) SIGNATURE Libertad Santiago APRN.CHARLIE CC No referring provider defined for this encounter. Solis Cool DO ([facility]) [address] [place] [address] documented in this encounterLancaster [facility]07-30-2024 Telephone encounter Note * Telephone Encounter - [...] Kennedy RN November 30, 2023 3:52 PM [facility]07-30-[facility] Miscellaneous Notes* Telephone Encounter - Jennifer Kennedy [...] 4:23 PM EDT Patient was seen in [place] ED 11/29/23 for seizure like activity and advised to follow up with neurology. Patient and are requesting follow up appointment with Dr. Lozano, lisa virtually if possible. No openings available with Dr. Lozano within time frame ED is requesting patient follow up. Please advise. Okay to follow up with Dr. Lozano or should patient be seen by differentprovider? documented in this encounterLancaster [facility] Hospital07-29-2024 Telephone encounter Note * Telephone Encounter - Codie Soto MD - 11/29/2023 6:02 PM EDT Summary: Communication with the ED, tonia Lafleur Received a call from Jimmie, marco a at emergency department seen the patient. He [...] to decide on that. Codie Soto MD [facility]07-29-[facility] Miscellaneous Notes* Telephone Encounter - Codie Qiu [...] that. Codie Soto MD documented in this encounterLanc[facility]07-29-2024 Telephone encounter Note * Telephone Encounter - Pattie Velazquez - 11/29/2023 4:23 PM EDT Patient was seen in [place] ED 11/29/23 for seizure like activity and advised to follow up with neurology. Patient and are requesting follow up appointment with Dr. Lozano, preferable virtually if possible. No openings available with Dr. Lozano within time frame ED is requesting patient follow up. Please advise. Okay to follow up with Dr. Lozano or should patient be seen by differentprovider? [facility] Telephone encounter Note* Telephone Encounter - Gerri Barcenas RN - 11/29/2023 11:52 AM EDT [...] and they have chosen to go to [facility] to be seen. [facility] Work Phone: 1(352) 284-613307-29-2024 Miscellaneous Notes* Telephone Encounter - Gerri Barcenas RN - 11/29/2023 11:52 AM EDT [...] and they have chosen to go to [facility] to be seen. * Telephone Encounter - David Castano - 11/29/2023 11:12 AM EDT Seizure Call Full Name of Person Calling : Josie Relationship to Patient : Self Contact Date of Seizure(s) : 11/26/2023 Duration : 30 seconds ER Visit : No, didn't want to go to ED w/o speaking with Dr. Huizar first. History of Seizure : Yes documented in this encounterLanc[facility] Hospital07-29-2024 Telephone encounter Note * Telephone Encounter - David Castano - 11/29/2023 11:12 AM EDT Seizure Call Full Name of Person Calling : Josie Relationship to Patient : Self Contact Date of Seizure(s) : 11/26/2023 Duration : 30 seconds ER Visit : No, didn't want to go to ED w/o speaking with Dr. Bhupendra franklin. History of Seizure : Yes [facility]06-25-[facility] Telephone encounter Note* Telephone Encounter - Gerri Barcenas RN - 10/26/2023 11:01 AM EDT Scheduling Request - Established Patient Time Frame: week of 01/19/24 Orders: MRI brain ok at satellite Provider: Any neuro onc or BEATRICE - Dr. Huizar out Visit type: Virtual Visit within 1-2 days of MRI Diagnosis: brain lesion [facility] Work Phone: [phone] Miscellaneous Notes* Telephone Encounter - Gerri Barcenas RN - 10/26/2023 11:01 AM EDT Scheduling Request - Established Patient Time Frame: week of 01/19/24 Orders: MRI brain ok at satellite Provider: Any neuro onc or BEATRICE - Dr. Bhupendra barrera Visit type: Virtual Visit within 1-2 days of MRI Diagnosis: brain lesion documented in this encounterLancaster [facility] Hospital06-19-2024 History of Present illness Narrative* Codie Soto MD - 10/20/2023 9:03 AM EDT Images from the original note were not included. Neurological [place] [facility] [place] [facility] NEURO-ONCOLOGY VIRTUAL VISIT NOTE This is a virtual visit using HIPAA compliant audio platform. It required patient-provider interaction for the medical decision making as documented below. I have communicated my name and active licensure. The patient's identity and physical location wereverified at the time of this visit. Either the patient or their legal product sales representative has been informed of the risks [...] her peripheral vision 06/08/22, she went to for the above issues.Admitted for the above. 06/13/[address] [facility] Heide Duff. Had a Rt Homonymous hemianopsia. 06/24/2022She saw cerebrovascular/stroke neurologist Dr. Pro and did extensive work up for possible CVA. 10/21/22, Dr. 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 11/04/22. Dr. Feliz performed a [...] expedited work up, under Dr. Lozano neuro cra. . Discharged : Had extensive work up [...] Coronary artery disease Coronary artery disease involving guidiville coronary artery of guidiville heart without angina pectoris 11/02/2022 Gastroesophageal reflux [...] 4,900 mg/dL 3,900 Final Pathology: SURGICAL PATHOLOGY: [id number] Order: [id number] Collected 11/04/2022 11:13 AM Status: Final result [...] been determined by the performing laboratory within [facility] [place] ([facility], [facility], [facility], [facility], [facility], or [facility]) in a manner consistent with [...] permanent in A2. Gross examination performed at [address] 11/04/2022 B. BRAIN BIOPSY Received fresh labeled right corpus callosum lesion are multiple fragments of white-goodson tissue aggregating to 0.6 x 0.5 x 0.2 cm. The specimen is submitted entirely in cassette B1. [place] [address] JXM/DANIELE 11/04/22 12:21 PM Intraoperative Diagnosis A. BRAIN BIOPSY FS A1: Right corpus callosum lesion, slightly hypercellular 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 tissue with rare atypical cells. (Dr. Narvaez). 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 Resulting Agency [facility] Specimen Collected: 11/04/22 11:13 AM EDT Last Resulted: 11/09/22 1:09 PM EDT Order Details View Encounter Lab and Collection Details Routing Result History View All Conversations on this Encounter Scans on Order [id number] Document on 11/09/2022 1:09 PM by Anusha Thomas MD Result Care Coordination Patient Communication 11/14/2022 1:09 PM Release Now Not seen Back to Top FISH FOR EGFR: [id number] Order: [id number] - Reflex for Order [id number] Collected 11/04/2022 11:22 AM Status: Final result Visible to patient: Yes (seen) Dx: Glioma (HCC) 0 Result Notes Component FISH FOR EGFR FISH for EGFR Laboratory Accession Number: [id number] Case: [id number] Block: B1 Sample Type: FFPET Sample Description: [...] and its performance characteristics determined by the [facility]'s [facility] Pathology and Laboratory Medicine [place] ([facility]). It has not been cleared or approved by the FDA. [facility] is regulated under CLIA as qualified to perform high- complexity testing. This test is used for clinical purposes. It should not be regarded as investigational or for research. Interpretation performed at [facility], [address] [place], [place] [id number]. CLIA Number: [id number] As reviewed by Mayra Louis MD, PhD [...] of specimen(s): Clinical History SURGICAL PATHOLOGY (Order [id number]) FISH FOR EGFR (Order [id number]) - Reflex for Order [id number] Patient Release Status: This result is scheduled for release on 11/14/2022 1:09 PM. Routing History Priority Sent On From To Message Type 11/09/2022 3:26 PM Lab, Background User Anusha Thomas MD Results 11/09/2022 1:09 PM Lab, Background User Carlos Jovel MD Results 11/09/2022 1:09 PM Lab, Background User Harlan Guy MD Results View Smartlink Info SURGICAL PATHOLOGY (Order #[id number]) on 11/04/22 CAP/CLIA/Joint Commission Regulatory Result Report SURGICAL PATHOLOGY (Order #[id number]) on 11/04/22 SURGICAL PATHOLOGY: Patient Communication 11/14/2022 1:09 PM Release Now Not seen Imaging: Results MRI BRAIN WO/W IVCON (Acc#[id number]) (Order [id number]) Patient Info Patient Name Sex Josie Santos ([id number]) Female 1965 10/19/2023 10:34 AM - Radiology, O[place] In Impression IMPRESSION: Unchanged appearance of the brain compared to most recent MRI performed 07/19/2023 with no new or enlarging lesions identified. No abnormal enhancement. Primary differential considerations include sequelae of nonspecific inflammatory and 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 process with neoplasm considered less likely. Tanscriptionist: [facility] Transcribe Date/Time: Oct 19 2023 10:20A Dictated [...] glioma, she referred the patient to our [facility] for evaluation, On 11/02/22, she had a biopsy by Dr. Jovel, neurosurgeon at the [facility]. The pathology is basically non diagnostic. Has [...] Pro from cerebrovascular/stroke neurology. 8-Follow with her statistical engineer for her CAD, S/p coronary artery stents. 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 For now, as she had episodes ofconduction [...] ( from the CT done on 11/25/2022). Thsi note CC [facility] Dr. Cool. 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 Based on her duties, I think [...] see the patient, at least 50% of [id number] patient care, completing clinical documentation, obtaining and/or [...] [facility], [place], [place] CC: CC -Carlos Jovel MD, Neurosurgery, [facility], [facility] [place], [facility] CC: aRd Pro DO, Vascular Neurology, [facility] CC: Dr. Solis Cool DO, PCP, [address] [place] [address] [address], [facility] [address], ; -Harlan Lozano MD, Neurology/Neuroimmunology, [facility] -David Rios MD, Neuro-ophthalmology, [facility] -Americo Haney DO, Infectious Disease, [facility] -Rich Gudino MD, Neuro-Immunology, Neurology, [facility] -Berto Albarado MD, Neuro-Immunology, Neurology, [facility] -Jim Piendo MD, Neuro Infectious Diseases, [facility] documented in this encounterLanc[facility]06-18-2024 History of Present illness Narrative* David Justice [...] PATIENT PRESENTS WITH AN IMPLANTABLE OR ATTACHED REGISTERED NURSE CARDIAC TELEMETRY: No ALLERGIES: Reviewed and unchanged CONTRAST ALLERGY: NO. EXAM: MRI - CONTRAST TYPE: GROUP II PERIPHERAL IV DATA: Ambulatory: A peripheral IV was started in the Left upper extremity with a Angio cath: 20 gauge. RADIOLOGY DEPARTMENT: MR; Exam(s) Completed: Head: Routine Brain with Perfusion SIGNATURE: RT Hayden(R) PATIENT NAME: Josie Landis DATE: October 19, 2023 TIME: 9:39 AM documented in this encounterLancaster [facility] Hospital06-18-2024 Miscellaneous Notes* Result Encounter Note - Codie Soto MD - 10/19/2023 9:20 AM EDT I have reviewed this test results, Oct 19 2023 MRI BRAIN WO/W IVCON and I will go over the results with the patient at the upcoming appointment. Codie Soto MD documented in this encounterLancaster [facility] Hospital06-18-2024 Progress note* Result Encounter Note - Codie Soto MD - 10/19/2023 9:20 AM EDT I have reviewed this test results, Oct 19 2023 MRI BRAIN WO/W IVCON and I will go over the results with the patient at the upcoming appointment. Codie Soto MD [facility] Work Phone: 1(779) 714-573603-20-2024 History of Present illness Narrative* Codie Soto MD - 07/21/2023 4:42 PM EDT Images from the original note were not included. Neurological [place] Neurological [place] [facility] NEURO-ONCOLOGY VIRTUAL VISIT NOTE This is a virtual visit using HIPAA compliant audio platform. It required patient-provider interaction for the medical decision making as documented below. I have communicated my name and active licensure. The patient's identity and physical location wereverified at the time of this visit. Either the patient or their legal product sales representative has been informed of the risks [...] my review). On 06/08/22, she sima to for the above issues. She saw cerebrovascular/stroke neurologist Dr. Pro and did extensive work up for possible CVA. On 10/21/22, Dr. Pro based on the MRI from that showed alight progression of the lesion, with the concern that this is a glioma referred the patient to our [facility] for evaluation. Dr. Feliz performed a biopsy [...] Patient is a 57 y/o female from [place], [place] with PMH CAD (s/p stent placement- [...] epic review 57 y/o female admitted to [facility] due to confusion and aphasia on 06/08/22. [...] follow-up is recommended. Heide Dumont, RN, BSN [employer] [facility] [...] I would recommend. I spoke with Dr. Harlan Lozano, neurology staff for primary neurology service, [...] callosum or elsewhere - workup on during [facility] admission: - MRI C/T/L WWO 12/10 mild [...] Department Center 04/19/2023 10:00 AM MRI [facility] (I-STAT/1.5T) DMITRIY Bernard 04/21/2023 1:30 PM Codie Soto MD [facility] [place] Bldg Office Visit on 03/30/23 IMMUNOFIXATION SCREEN, SERUM PROTEIN ELECTROPHORESIS SERUM W/INTERP Seen with Dr. Albarado. Rich Gudino MD Neuroimmunology Fellow [facility] Patient seen and [...] MD Note Details Instructions Abstract Open 04/05/2023 [facility] Rich Gudino MD Neurology Progress Notes Rich Gudino MD (Fellow) Neurology Unsigned Neuroimaging discussed at the [facility] neuroradiology conference today with Dr. Fadi Amado from neuroradiology department and [facility] clinicians [Dr. Lozano, Dr. Sams, Dr. [...] Department Center 04/19/2023 10:00 AM MRI [facility] (I-STAT/1.5T) DMITRIY Bernard 04/21/2023 1:30 PM Codie Soto MD [facility] [place] [facility] 06/01/2023 11:15 AM Rich Gudino MD [facility] B[facility] Rich Gudino MD Neuroimmunology [...] Dr. Lozano today's team, and the neuro immunology/[facility]. 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 Brain lesion 3. Confusion 4. Alexia 5. Visual field defect AFB CULT + STAIN Order: [id number] Status: Preliminary result Visible to patient: No (not released) Dx: Alexia; Confusion; Visual field defec... 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 Brain lesion 3. Confusion 4. Alexia 5. Visual field defect CSF CULT + STAIN Order: [id number] Status: Final result Visible to patient: Yes (seen) Dx: Neoplasm of uncertain behavior of bra... Specimen Information: CSF LUMBAR PUNCTURE 0 Result Notes important suggestion Newer results are available. Click to view them now. Culture, CSF No growth 5 days Smear Result No organisms seen Rare Polymorphonuclear leukocytes Few Mononuclear cells Gram stain performed on cytospun specimen. 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 Brain lesion 3. Confusion 4. Alexia 5. Visual field defect Contains abnormal data CSF ROUT ANALYSIS Order: [id number] Status: Final result Visible to patient: Yes [...] Contains abnormal data CSF MANUAL DIFF Order: [id number] - Reflex for Order [id number] Status: Final result Visible to patient: Yes (seen) Dx: Neoplasm of uncertain behavior of bra... 0 Result Notes Component Ref Range & Units 1 mo ago (03/22/23) 1 mo ago (03/22/23) 4 mo ago (12/10/22) Diff Total, CSF cells counted 100 100 100 Lymph%, CSF 50 - 90 % 95 High 99 High 90 [place]%, CSF 10 - 50 % 5 Low 1 Low 10 Resulting Agency [facility] Specimen Collected: 03/22/23 9:20 AM EST Last Resulted: 03/22/23 2:44 PM EST Lab Flowsheet Order Details View Encounter Lab and Collection Details Routing Result History View All Conversations on this Encounter Result Care Coordination Patient Communication Add Comments Seen Back to Top Contains abnormal data PROTEIN CSF Order: [id number] - Part of Panel Order [id number] Status: Final result Visible to patient: Yes (seen) Dx: Neoplasm of uncertain behavior of bra... 0 Result Notes Component Ref Range & Units 1 mo ago 4 mo ago Protein, CSF 15 - 45 mg/dL 89 High 81 High Resulting Agency [facility] Specimen Collected: 03/22/23 9:20 AM EST Last Resulted: 03/22/23 11:04 AM EST Lab Flowsheet Order Details View Encounter Lab and Collection Details Routing Result History View All Conversations on this Encounter Result Care Coordination Patient Communication Add Comments Seen Back to Top GLUCOSE CSF Order: [id number] - Part of Panel Order [id number] Status: Final result Visible to patient: Yes [...] Glucose HK (GLUC3) [package insert V 12.0 Swazi]. [employer], [place]. September 2015. 2. Renea Rodriguez, Renea Cardona (2015). Chapter 7: Glucose and Lactate. F. Barbie.(eds.), Cerebrospinal Fluid in Clinical Neurology. [place]: [employer]. Resulting Agency [facility] Specimen Collected: 03/22/23 9:20 AM EST Last Resulted: 03/22/23 11:04 AM EST Lab Flowsheet Order Details View Encounter Lab and Collection Details Routing Result History View All Conversations on this Encounter CM=Additional comments Result Care Coordination Patient Communication Add Comments Seen Back to Top Contains abnormal data CSF CELL COUNT Order: [id number] - Part of Panel Order [id number] Status: Final result Visible to patient: Yes [...] - 5 cells/uL 19 High 2 Resulting [facility] Specimen Collected: 03/22/23 9:20 AM EST Last [...] 00) Collection comment: CSF ROUT ANALYSIS (Order [id number]) Linked Results Procedure Abnormality Status CSF CELL COUNT Abnormal Abnormal Final result PROTEIN CSF Abnormal Abnormal Final result GLUCOSE CSF Normal Final result CSF MANUAL DIFF (Order [id number]) - Reflex for Order [id number] PROTEIN CSF (Order [id number]) GLUCOSE CSF (Order [id number]) CSF CELL COUNT (Order [id number]) Patient Release Status: This result is viewable by the patient in MyChart. Last viewed in [employer]: 03/27/2023 9:52 AM By: Josie Landis Routing History Priority Sent On From To Message Type 03/22/2023 2:15 PM Ce, Scheduled Orders In Codie Soto MD Results 03/22/2023 11:03 AM Lab, Background User Codie Soto MD Results View [employer] Info CSF ROUT ANALYSIS (Order #[id number]) on 02/22/23 CAP/CLIA/Joint Commission Regulatory Result Report CSF ROUT ANALYSIS (Order #[id number]) on 02/22/23 Patient Communication CSF ROUT ANALYSIS Add Comments Seen PROTEIN CSF Add Comments Seen GLUCOSE CSF Add Comments Seen CSF CELL COUNT Add Comments Seen Related Result Highlights CYTOLOGY NON-SEAFOOD HARVESTER Final result 03/22/2023 FINAL DIAGNOSIS A - [...] 4. Alexia 5. 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 Brain lesion 3. Confusion 4. Alexia 5. Visual field defect CYTOLOGY NON-SEAFOOD HARVESTER: [id number] Order: [id number] Collected 03/22/2023 9:20 AM Status: Final result [...] (FCLL) Future, Expected: 02/22/2023, Clinician Collect, Resulting [place] - [facility] FLOW CYTOMETRY FOR LEUKEMIA/LYMPHOMA (FCLL) REFLEX: [id number] Order: [id number] - Reflex for Order [id number] Status: Final result Visible to patient: Yes (seen) Dx: Alexia; Confusion; Visual field defec... 0 Result Notes Component Interpretation There is no evidence of involvement by a lymphoproliferative disorder or abnormal blast population.Correlation with the clinical findings is suggested. 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 Brain lesion 3. Confusion 4. Alexia 5. Visual field defect FUNGAL CSF CULT/CAD Order: [id number] Status: Final result Visible to patient: Yes (not seen) Dx: Neoplasm of uncertain behavior of bra... Specimen Information: CSF LUMBAR PUNCTURE 0 Result Notes important suggestion Newer results are available. Click to view them now. Culture No Fungus isolated after 28 days Resulting Agency: [facility] Specimen Collected: 03/22/23 9:20 AM EST Last Resulted: 04/19/23 11:02 AM EST Lab Flowsheet Order Details View Encounter Lab and Collection Details Routing Result History View All Conversations on this Encounter Result Care Coordination Patient Communication Add Comments Add Notifications Back to Top CRYPTOCOCCUS AG DET Order: [id number] - Reflex for Order [id number] Status: Final result Visible to patient: Yes (seen) Dx: Neoplasm of uncertain behavior of bra... 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 Brain lesion 3.Confusion 4. Alexia 5. 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 Brain lesion 3. Confusion 4. Alexia 5. Visual field defect Source: CSF LUMBAR PUNCTURE LYME DISEASE BY PCR Order: [id number] Status: Final result Visible to patient: Yes [...] developed and its performance characteristics determined by [facility]. It has not been cleared or approved by the US Food and Drug Administration. This test was performed in a CLIA certified laboratory and is intended for clinical purposes. Performed By: [facility] [address] [place] [id number] Machine Group Leader: Rj Camacho MD, PhD CLIA Number: [id number] Resulting [facility] Specimen Collected: 03/22/23 9:20 AM EST Last Resulted: 03/25/23 9:09 AM EST MISC SEND OUT TST 1 Future, Expected: 02/22/2023, Lab, Specimen Types - CSF;, Resulting [facility] MISC SEND OUT TST 1 Future, Expected: 02/22/2023, Lab, Specimen Types - CSF;, Resulting [facility] MYELIN BASIC PRO CSF Clinician Collect, Routine, Specimen Sources - CSF LUMBAR PUNCTURE;, Resulting [facility], Dx: 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 Brain lesion 3. Confusion 4. Alexia 5. Visual field defect MYELIN BASIC PRO CSF Order: [id number] Status: Final result Visible to patient: Yes (seen) Dx: Neoplasm of uncertain behavior of bra... 0 Result Notes Component Ref Range & Units 1 mo ago 4 mo ago Myelin Basic Protein, CSF 0.00 - 5.50 ng/mL 5.05 8.63 High CM Comment: INTERPRETIVE INFORMATION: Myelin Basic Protein This test was developed and its performance characteristics determined by [facility]. It has not been cleared or approved by the US Food and Drug Administration. This test was performed in a CLIA certified laboratory and is intended for clinical purposes. Performed By: [facility] [address] [place] [id number] Machine Group Leader: Rj Camacho MD, PhD CLIA Number: [id number] OLIGOCLONAL BAND CSF Clinician Collect, Routine, Specimen Sources - CSF LUMBAR PUNCTURE;, Resulting [facility], Dx: 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 Brain lesion 3. Confusion 4. Alexia 5. Visual field defect BANDS OLIGOCLONAL CSF Order: [id number] - Part of Panel Order [id number] Status: Final result Visible to patient: Yes (seen) Dx: Brain lesion 0 Result Notes Component 1 mo ago CSF Oligoclonal Bands Oligoclonal bands are not seen in the CSF. Staff Review (Oligo Banding) Reviewed by Estefania Barajas MD Resulting Agency [facility] Specimen Collected: 03/22/23 9:38 AM EST Last Resulted: 03/30/23 1:29 PM EST [facility] Collect, Routine, Specimen Sources - CSF LUMBAR PUNCTURE;, Resulting Agency [facility], Dx: 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 Brain lesion 3. Confusion 4. Alexia 5. Visual field defect VDRL CSF Clinician Collect, Routine, Specimen Sources - CSF LUMBAR PUNCTURE;, Resulting [facility], Dx: 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 Brain lesion 3. Confusion 4. Alexia 5. Visual field defect VDRL CSF Order: [id number] Status: Final result Visible to patient: Yes [...] out neurosyphilis. Clinical correlation is required. Resulting [facility] Specimen Collected: 03/22/23 9:20 AM EST Last Resulted: 03/23/23 12:33 PM EST Contains abnormal data CSF CELL COUNT Order: [id number] Status: Final result Visible to patient: Yes [...] cells/uL 16 High 19 High 2 Resulting [facility] Specimen Collected: 03/22/23 9:20 AM EST Last Resulted: 03/22/23 11:04 AM EST Lab Flowsheet Order Details View Encounter Lab and Collection Details Routing Result History View All Conversations on this Encounter Result Care Coordination Patient Communication Add Comments Seen Back to Top Contains abnormal data CSF MANUAL DIFF Order: [id number] - Reflex for Order [id number] Status: Final result Visible to patient: Yes (seen) Dx: Brain lesion 0 Result Notes important suggestion Newer results are available. Click to view them now. Component Ref Range & Units 1 mo ago 4 mo ago Diff Total, CSF cells counted 100 100 Lymph%, CSF 50 - 90 % 99 High 90 Fallon%, CSF 10 - 50 % 1 Low 10 Resulting [facility] Specimen Collected: 03/22/23 9:20 AM EST Last Resulted: 03/22/23 2:40 PM EST CRYPTOCOCCUS AG DET Order: [id number] - Reflex for Order [id number] Status: Final result Visible to patient: Yes (seen) Dx: Neoplasm of uncertain behavior of bra... Specimen Information: CSF LUMBAR PUNCTURE 0 Result Notes Component Ref Range & Units 1 mo ago 4 mo ago Cryptococcal Ag Result Cryptococcal Antigen NOT DETECTED Cryptococcal Antigen NOT DETECTED Cryptococcal Antigen NOT DETECTED CM Comment: by line flow immunoassay Resulting [facility] Specimen Collected: 03/22/23 9:20 AM EST Last Resulted: 03/22/23 3:13 PM EST FLOW CYTOMETRY FOR LEUKEMIA/LYMPHOMA (FCLL) REFLEX: [id number] Order: [id number] - Reflex for Order [id number] Collected 03/22/2023 9:20 AM Status: Final result Visible to patient: Yes (seen) Dx: Alexia; Confusion; Visual field defec... 0 Result Notes Component Interpretation There is no evidence of involvement by a lymphoproliferative disorder or abnormal blast population.Correlation with the clinical findings is suggested. /ALB RATIO CSF Order: [id number] Status: Final result Visible to patient: Yes (seen) Dx: Brain lesion 0 Result Notes Component Ref Range & Units 1 mo ago 4 mo ago Immunoglobulin G, CSF 1.0 - 3.0 mg/dL 4.5 High 4.1 High Albumin, CSF 10.0 - 30.0 mg/dL 57.4 High 53.8 High CSF IgG / Albumin Ratio 0.06 - 0.17 0.08 0.08 Resulting [facility] Specimen Collected: 03/22/23 9:38 AM EST Last Resulted: 03/30/23 1:35 PM EST BANDS OLIGOCLONAL CSF Order: [id number] - Part of Panel Order [id number] Status: Final result Visible to patient: Yes (seen) Dx: Brain lesion 0 Result Notes Component 1 mo ago CSF Oligoclonal Bands Oligoclonal bands are not seen in the CSF. Staff Review (Oligo Banding) Reviewed by Estefania Barajas MD [facility] Specimen Collected: 03/22/23 9:38 AM EST Last Resulted: 03/30/23 1:29 PM EST BANDS OLIGOCLONAL CSF Order: [id number] - Part of Panel Order [id number] Status: Final result Visible to patient: Yes (seen) Dx: Brain lesion 0 Result Notes Component 1 mo ago CSF Oligoclonal Bands Oligoclonal bands are not seen in the CSF. Staff Review (Oligo Banding) Reviewed by Estefania Barajas MD Resulting [facility] Specimen Collected: 03/22/23 9:38 AM EST Last Resulted: 03/30/23 1:29 PM EST CSF results from June 2023, which I reviewed, and I see no abnormalities, of concern. Final Pathology: SURGICAL PATHOLOGY: [id number] Order: [id number] Collected 11/04/2022 11:13 AM Status: Final result [...] been determined by the performing laboratory within [facility] [place] ([facility], [facility], [facility], [facility], [facility], or [facility]) in a manner consistent with [...] permanent in A2. Gross examination performed at [address] 11/04/2022 B. BRAIN BIOPSY Received fresh labeled right corpus callosum lesion are multiple fragments of white-goodson tissue aggregating to 0.6 x 0.5 x 0.2 cm. The specimen is submitted entirely in cassette B1. [place] [address] JXM/DANIELE 11/04/22 12:21 PM Intraoperative Diagnosis A. BRAIN BIOPSY FS A1: Right corpus callosum lesion, slightly hypercellular 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 tissue with rare atypical cells. (Dr. Narvaez). 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 Resulting Agency [facility] Specimen Collected: 11/04/22 11:13 AM EDT Last Resulted: 11/09/22 1:09 PM EDT Order Details View Encounter Lab and Collection Details Routing Result History View All Conversations on this Encounter Scans on Order [id number] Document on 11/09/2022 1:09 PM by Anusha Thomas MD Result Care Coordination Patient Communication 11/14/2022 1:09 PM Release Now Not seen Back to Top FISH FOR EGFR: [id number] Order: [id number] - Reflex for Order [id number] Collected 11/04/2022 11:22 AM Status: Final result Visible to patient: Yes (seen) Dx: Glioma (HCC) 0 Result Notes Component FISH FOR EGFR FISH for EGFR Laboratory Accession Number: [id number] Case: [id number] Block: B1 Sample Type: FFPET Sample Description: [...] chromosome 7 centromere (CEP 7) probes ([employer], [place], [place]). The slides were scored [...] and its performance characteristics determined by the [facility]'s [facility] Pathology and Laboratory Medicine [place] ([facility]). It has not been cleared or approved by the FDA. [facility] is regulated under CLIA as qualified to perform high- complexity testing. This test is used for clinical purposes. It should not be regarded as investigational or for research. Interpretation performed at [facility], [address] [place], [place] [id number]. CLIA Number: [id number] As reviewed by Mayra Louis MD, PhD [facility] Agency Clarity Specimen Collected: 11/04/22 11:22 AM EDT [...] of specimen(s): Clinical History SURGICAL PATHOLOGY (Order [id number]) FISH FOR EGFR (Order [id number]) - Reflex for Order [id number] Patient Release Status: This result is scheduled for release on 11/14/2022 1:09 PM. Routing History Priority Sent On From To Message Type 11/09/2022 3:26 PM Lab, Background User Anusha Thomas MD Results 11/09/2022 1:09 PM Lab, Background User Carlos Jovel MD Results 11/09/2022 1:09 PM Lab, Background User Harlan Guy MD Results View Smartlink Info SURGICAL PATHOLOGY (Order #[id number]) on 11/04/22 CAP/CLIA/Joint Commission Regulatory Result Report SURGICAL PATHOLOGY (Order #[id number]) on 11/04/22 SURGICAL PATHOLOGY: Patient Communication 11/14/2022 1:09 PM Release Now Not seen Imaging: Results CT CHEST W IVCON (Acc#[id number]) (Order [id number]) Patient Info Patient Name Sex Josie Santos ([id number]) Female 1965 Imaging Findings Finding Acuity Linked [...] exam could be obtained in 12 months Glue Bone Crusher: RHIANNON Transcribe Date/Time: Nov 25 2022 5:31P Dictated by : TOMAS DEVINE MD This examination was interpreted and the report reviewed and electronically signed by: TOMAS DEVINE MD on Nov 25 2022 5:38PM EST Results-Findings * * *Final Report* * * DATE OF EXAM: Nov 25 2022 12:18PM [facility] [place] 0539 - CT CHEST W IVCON / [...] abdomen and pelvis will be reported separately. Oil Field Worker (topogram) images: No additional findings. Result History CT CHEST W IVCON (Order #[id number]) on 11/25/2022 - Order Result History Report Result Information Status Provider Status Actionable Final result (11/25/2022 5:41 PM) Reviewed Exam Performed Date and Time 11/25/2022 12:18 PM [facility] Agency DIVISION OF RADIOLOGY [address] [facility] [address] ABD/PEL W IVCON (Acc#[id number]) (Order [id number]) Patient Info Patient Name Sex Josie Landis ([id number]) Female 1965 11/25/2022 12:44 PM - Radiology, Oru In Impression IMPRESSION: No metastatic disease in the abdomen and pelvis. Glue Bone Crusher: PSCB Transcribe Date/Time: Nov 25 2022 12:23P Dictated by : BLAYNE JONES MD This examination was interpreted and the report reviewed and electronically signed by: BLAYNE JONES MD on Nov 25 2022 12:42PM EST MRI Report MRI BRAIN WO/W IVCON (Acc#[id number]) (Order [id number]) MRI CERVICAL SPINE WO/W IVCON (Acc#[id number]) (Order [id number]) MRI THORACIC SPINE WO/W IVCON (Acc#[id number]) (Order [id number]) MRI BRAIN WO/W IVCON Exam End: 04/19/2023 12:36 PM (Final result) Narrative: * * *Final Report* * * DATE OF EXAM: Apr 19 2023 12:20PM [facility] 0295 - MRI BRAIN WO/W IVCON / PROCEDURE REASON: multiple diagnoses * * * * Physician Interpretation * * * * EXAMINATION: MRI BRAIN WO/W IVCON, MRI THORACIC SPINE WO/W IVCON, MRI CERVICAL SPINE WO/W IVCON Clinical history provided by the ordering clinician via order question and clinical decision support entries: Radiation necrosis/pseudoprogression, Other (specify in question below), Other (specify in question below). Brain/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 neoplasm, monitor, Metastatic disease evaluation. Brain lesion [...] glioma, she referred the patient to our [facility] for evaluation, On 11/02/22, she had a biopsy by Dr. Jovel, neurosurgeon at the [facility]. The pathology is basically non diagnostic. TECHNIQUE: [...] are 5 lumbar-type vertebrae. Anatomic variant: None. Glue Bone Crusher: [facility] Transcribe Date/Time: Apr 19 2023 2:31P Dictated by : BLAYNE VINCENT MD This examination was interpreted and the report reviewed and electronically signed by: BLAYNE VINCENT MD on Apr 19 2023 3:00PM EST Results MRI LUMBAR SPINE WO/W IVCON (Acc#[id number]) (Order [id number]) Patient Info Patient Name Sex Josie Santos ([id number]) Female 1965 07/19/2023 4:05 PM - Radiology, [...] lumbar-type vertebrae. Results MRI BRAIN WO/W IVCON ([id number]) (Order [id number]) Patient Info Patient Name Sex Josie Santos ([id number]) Female 1965 07/19/2023 4:05 PM - Radiology, [...] glioma, she referred the patient to our [facility] for evaluation, On 11/02/22, shehad a biopsy by Dr. Jovel, neurosurgeon at the [facility]. The pathology is basically non diagnostic. Symptomatically [...] not astroke and referred her to the [facility] and had a biopsy by Dr. Feliz [...] no abnormalities. Trauma Susac Syndrome (SS) (From [place] [employer] (excerpt/verbatim). SS is a [...] Splenium of the Corpus Callosum. Cureus 13(11): a82301. doi:10.7759/cureus.01204), 2-Gissell-Gissell Paul eta al. Clinical features of acute corpus callosum infarction patients. Int J Clin Exp Pathol. 2014; 7(8): 0167-1501. 3-Damari Guerrero. 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 Brain Behav. 2019 Nov;9(11): s25976. 4-Conrado Cook and Holly Ley. 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 BMJ Case Rep. 2014; 2014: [id number]. 5-Fadi Miranda et al. Alexia Without Agraphia: [...] I would recommend. I spoke with Dr. Harlan Lozano, neurology staff for primary neurology service, [...] [facility]. They presented the patient to their [...] he was a vein. Referral to be 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 infectious diseases group, is a consideration, to get their opinion, whether there might be still a possibility of an infectious etiology. Furthermore, I recommend for the patient, to consider a second opinion at the large academic institution preferably. Thus institutions could include, in town, and Critical access hospital institutions in the area, or region would be [facility], [facility], [facility], [facility] in [place], or further away, at [facility] in [facility] or on the East, [facility], or one of the Hospitals, at [facility], i.e., [facility]. PLAN: 1-Splenium of the corpus callosum lesion, etiology unclear: S/P biopsy with non diagnostic pathology. Work up so far unremarkable. Plan to do an MRI of the brain w and w/o + perfusion in 3 month's time. -Follow up in my neuro-oncology clinic 1-2 days after the MRI if the MRI is done at a different [facility], or the same day if the MRI [...] Pro from cerebrovascular/stroke neurology. 8-Follow with her statistical engineer for her CAD, S/p coronary artery stents. 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 For now, as she had episodes ofconduction [...] time. 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 Based on her duties, I think [...] see the patient, at least 50% of snun-tn-wyzu patient care, completing clinical documentation, obtaining and/or [...] [facility], [place], [place] CC: CC -Carlos Jovel MD, Neurosurgery, [facility], [facility] [place], [facility], [facility] CC: Rad Pro DO, Vascular Neurology, [facility] CC: Dr. Solis Cool DO, PCP, [address] [place] [address] [address], [facility] [address], ; -Harlan Lozano MD, Neurology/Neuroimmunology, [facility] -David Rios MD, Neuro-ophthalmology, [facility] -Americo Haney DO, Infectious Disease, [facility] -Rich Gudino MD, Neuro-Immunology, Neurology, [facility] -Berto Albarado MD, Neuro-Immunology, Neurology, [facility] -Jim Pinedo MD, Neuro Infectious Diseases, [facility] Instructions* Patient Instructions* Pamela Jeffries DO - 07/21/2023 11:01 AM EDT Repeat MRI in 3-4 months Please schedule EMG before next Dr. Lozano visit if able, particularly with leg symptoms Please let us know if new or worsening symptoms Follow-up with Dr. Lozano documented in this encounterL[facility] History of Present illness Narrative* Harlan Lozano MD - 07/21/2023 10:00 AM EDT Images from the original note were not included. 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 Since the patient's last visit the patient reports overall feeling worse because of leg pain. Issues with current therapy: Not currently on disease modifying therapy. Neuro-QoL Functions (higher=better functioning) Flowsheet [facility] Office Visit from 07/21/2023 in [facility] from [place] [facility] [place] from 03/30/2023 in [facility] Upper Extremity Domain T Score 56.6 44 44.04 Lower Extremity Domain T Score 44.4 42 44.4 Cognitive Function Domain T Score 36.5 33 25.15 Positive Affect Well Being T Score -- -- -- Ability To Participate In Social Roles T Score 44.81 41 39.9 Satisfaction With Social Roles T Score 47.34 43 44.64 Neuro-QoL Symptoms (higher=worse symptoms) Flowsheet [facility] Office Visit from 07/21/2023 in [facility] from 06/01/[address] [facility] [place] Office Visit from 03/30/2023 in [facility] Sleep Domain T Score 67.84 57 [...] carcinoma (BCC) of cheek (2020), Bipolar affective ([facility]), Coronary artery disease, Coronary artery disease involving guid[place]le coronary artery of guid[place]le heart without angina pectoris (11/02/2022), Gastroesophageal reflux disease without esophagitis (11/02/2022), Hyperlipidemia, Primary hypertension (11/02/2022), Seizures ([facility]) (11/02/2022), and Stroke ([facility]). has a current medication list [...] Flowsheet Row Office Visit from 07/21/2023 in [facility] Office Visit from 03/30/2023 in [facility] Processing Speed Total Number Correct 30 [...] Office Visit on 07/21/23 MRI BRAIN WO/W MEMO Jeffries DO Neuroimmunology Fellow (PGY-5) In the service of staff, Dr. Harlan Lozano [facility] for Multiple Sclerosis [facility] STAFF PHYSICIAN NOTE OF PERSONAL INVOLVEMENT IN [...] with neuro-ID planned. All questions answered. SIGNATURE: Harlan Lozano MD PhD DATE of SERVICE: July 23, 2023 documented in this encounterL[facility]03-18-[facility]24 History of Present illness Narrative* David Justice RT(Irving) - 07/19/2023 1:00 PM EDT Radiology Service [...] PATIENT PRESENTS WITH AN IMPLANTABLE OR ATTACHED REGISTERED NURSE CARDIAC TELEMETRY: No ALLERGIES: Reviewed and unchanged CONTRAST ALLERGY: NO. EXAM: MRI - CONTRAST TYPE: GROUP II PERIPHERAL IV DATA: Ambulatory: A peripheral IV was started in the Right antecubital site with a Angio cath: 20 gauge. RADIOLOGY DEPARTMENT: MR; Exam(s) Completed: Head: Routine Brain with Perfusion Spine: Lumbar spine SIGNATURE: RT Hayden(Irving) PATIENT NAME: Josie Landis DATE: July 19, 2023 TIME: 1:09 PM documented in this encounterCleveland [id number] History of Present illness Narrative* Jim Pinedo [...] visit Jim Pinedo MD [facility] History of Present illness Narrative* Jim Pinedo [...] may be getting worse. 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 She goes camping every weekend and [place] but does not ever put her head under the water. No bug bites or ticks that she has noticed. She took a trip to [place] prior to this but no international travel [...] intact. No weakness. Coordination: Romberg sign negative. Oqjmyq-Ssje-Zkpgzf Test normal. Gait: Gait is intact. Deep [...] 90 % 90 95 (H) 99 (H) Fallon%, CSF 10 - 50 % 10 - 50 % 10 5 (L) 1 (L) Protein, CSF 15 - 45 mg/dL 81 (H) 89 (H) Glucose, CSF 40 - 70 mg/dL 64 70 (H): Data is abnormally high (L): Data is abnormally low INSULATION ESTIMATOR 03/22/23: Routine culture neg Fungal culture/cryptococcal antigen neg AFB culture negative Lyme PCR neg T cell receptor gene rearrange, V ([facility] labs): negative Immunoglobulin gene rearrange, V ([facility] labs): negative HIV neg 12/11/22 CSF 12/10/22 [...] Wilson MD Rheumatology Fellow [facility] Rheumatologic [place] The above patient was seen and discussed with Infectious Disease Staff, Dr. 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 - chest pain, hospitalized [facility] 06/02/22; cardiac enzymes negative, pharmacologic stress test negative with normal EF. - hospitalized [facility] 06/08-06/09/22 with increasing in confusion x 6 [...] dyslexia, confusion, VF defect, splenium CC lesion). [place] the [facility] could be related to splenium CC lesion (prior case reports). Etiology of lesion unclear, still possibly stroke, glioma, unlikely encephal itis, demyelination due to MS, paraneoplastic. Consult to [facility], neuro- ophtho, neuro-ID. - [place] 11/20/22 included [...] enhancement left S1 nerve root - FU [facility] 03/30/23: [facility], no change in exam. 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 Her neuro symptoms started right after the stents placed 05/21/22 including the visual deficits and alexia the same day. Her symptoms have improved some compared with the acute phase leading up to the admission to [facility] on 06/08/22. However, over the past year [...] C3/C4, ANCA, IL2 receptor, CATRACHO, chromatin ab, LIMB DRIVER, Jo1, scleroderma IgG, Anticentromere ab, Anti SSA/B, LIMB DRIVER, Patrick IgG, anti NICK - upcoming LP-- [...] MRI scans, PET scans, and CT scans, vsex-tq-bmgdnjnxmlb care, completing clinical documentation, obtaining and/or reviewing separately obtained history, performing a medically appropriate examination, counseling and educating the patient/family/caregiver, ordering medications, tests, or procedures, communicating with other HCPs (not separately reported), independently interpreting results (not separately reported), communicating results to the patient/family/caregiver, and care coordination (not separately reported) documented in this encounterL[facility]12-27-[facility]23 History of Present illness Narrative* Codie Soto MD - 04/28/2023 3:25 PM EST Images from the original note were not included. Neurological [place] [facility] [place] [facility] NEURO-ONCOLOGY VIRTUAL VISIT NOTE This is a virtual visit using HIPAA compliant audio platform. It required patient-provider interaction for the medical decision making as documented below. I have communicated my name and active licensure. The patient's identity and physical location wereverified at the time of this visit. Either the patient or their legal product sales representative has been informed of the risks [...] my review). On 06/08/22, she sima to for the above issues. She saw cerebrovascular/stroke neurologist Dr. Pro and did extensive work up for possible CVA. On 10/21/22, Dr. Pro based on the MRI from that showed alight progression of the lesion, with the concern that this is a glioma referred the patient to our [facility] for evaluation. Dr. Feliz performed a biopsy [...] Patient is a 57 y/o female from [place], [place] with PMH CAD (s/p stent placement- [...] epic review 57 y/o female admitted to [facility] due to confusion and aphasia on 06/08/22. [...] follow-up is recommended. Heide Dumont, RN, BSN [employer] [facility] [...] I would recommend. I spoke with Dr. Harlan Lozano, neurology staff for primary neurology service, [...] Department Center 04/19/2023 10:00 AM MRI [facility] WS (I-STAT/1.5T) DMITRIY Bernard 04/21/2023 1:30 PM HuizarCodie Johnson MD [place] B[facility] Office Visit on 03/30/23 IMMUNOFIXATION SCREEN, SERUM PROTEIN ELECTROPHORESIS SERUM W/INTERP Seen with Dr. Albarado. Rich Gudino MD Neuroimmunology Fellow [facility] Patient seen and [...] MD Note Details Instructions Abstract Open 04/05/2023 [facility] Rich Gudino MD Neurology Progress Notes Rich Gudino MD (Fellow) Neurology Unsigned Neuroimaging discussed at the [facility] neuroradiology conference today with Dr. Fadi Amado from neuroradiology department and [facility] clinicians [Dr. Lozano, Dr. Sams, Dr. [...] Department Center 04/19/2023 10:00 AM MRI [facility] WSTR (I-STAT/1.5T) RMRIDANGELO [place] Marco Antonio 04/21/2023 1:30 PM Codie Soto MD NSCAMN [...] Coronary artery disease Coronary artery disease involving guidiville coronary artery of guidiville heart without angina pectoris 11/02/2022 Gastroesophageal reflux [...] [employer] Used withpermission. References: 1. Nabeel BENNETT, [place], [place]. Mini-Mental State: a practical method for grading [...] in patients with probable Alzheimer's disease. Neurology. 1992;42:6258-6672. GENERAL EXAM: General appearance: Well appearing, alert, [...] Sources - CEREBROSPINAL FLUID.;, Resulting Agency - [facility], Dx: 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 Brain lesion 3. Confusion 4. Alexia 5. Visual field defect AFB CULT + STAIN Order: [id number] Status: Preliminary result Visible to patient: No (not released) Dx: Alexia; Confusion; Visual field defec... 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 Brain lesion 3. Confusion 4. Alexia 5. Visual field defect CSF CULT + STAIN Order: [id number] Status: Final result Visible to patient: Yes (seen) Dx: Neoplasm of uncertain behavior of bra... Specimen Information: CSF LUMBAR PUNCTURE 0 Result Notes important suggestion Newer results are available. Click to view them now. Culture, CSF No growth 5 days Smear Result No organisms seen Rare Polymorphonuclear leukocytes Few Mononuclear cells Gram stain performed on cytospun specimen. Resulting Agency: [facility] Specimen Collected: 03/22/23 9:20 AM EST Last Resulted: 03/27/23 9:21 AM EST CSF ROUT ANALYSIS Clinician Collect, Routine, Specimen Sources - CSF LUMBAR PUNCTURE;, Resulting Agency - [facility], Dx: 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 Brain lesion 3. Confusion 4. Alexia 5. Visual field defect Contains abnormal data CSF ROUT ANALYSIS Order: [id number] Status: Final result Visible to patient: Yes [...] Contains abnormal data CSF MANUAL DIFF Order: [id number] - Reflex for Order [id number] Status: Final result Visible to patient: Yes (seen) Dx: Neoplasm of uncertain behavior of bra... 0 Result Notes Component Ref Range & Units 1 mo ago (03/22/23) 1 mo ago (03/22/23) 4 mo ago (12/10/22) Diff Total, CSF cells counted 100 100 100 Lymph%, CSF 50 - 90 % 95 High 99 High 90 Fallon%, CSF 10 - 50 % 5 Low 1 Low 10 Resulting Agency [facility] Specimen Collected: 03/22/23 9:20 AM EST Last Resulted: 03/22/23 2:44 PM EST Lab Flowsheet Order Details View Encounter Lab and Collection Details Routing Result History View All Conversations on this Encounter Result Care Coordination Patient Communication Add Comments Seen Back to Top Contains abnormal data PROTEIN CSF Order: [id number] - Part of Panel Order [id number] Status: Final result Visible to patient: Yes (seen) Dx: Neoplasm of uncertain behavior of bra... 0 Result Notes Component Ref Range & Units 1 mo ago 4 mo ago Protein, CSF 15 - 45 mg/dL 89 High 81 High Resulting Agency [facility] Specimen Collected: 03/22/23 9:20 AM EST Last Resulted: 03/22/23 11:04 AM EST Lab Flowsheet Order Details View Encounter Lab and Collection Details Routing Result History View All Conversations on this Encounter Result Care Coordination Patient Communication Add Comments Seen Back to Top GLUCOSE CSF Order: [id number] - Part of Panel Order [id number] Status: Final result Visible to patient: Yes [...] Glucose HK (GLUC3) [package insert V 12.0 Swazi]. [employer], [place]. September 2015. 2. Renea Rodriguez, Dulce HZack (2015). Chapter 7: Glucose and Lactate. F. Barbie.(eds.), Cerebrospinal Fluid in Clinical Neurology. [place]: [employer]. Resulting Agency [facility] Specimen Collected: 03/22/23 9:20 AM EST Last Resulted: 03/22/23 11:04 AM EST Lab Flowsheet Order Details View Encounter Lab and Collection Details Routing Result History View All Conversations on this Encounter CM=Additional comments Result Care Coordination Patient Communication Add Comments Seen Back to Top Contains abnormal data CSF CELL COUNT Order: [id number] - Part of Panel Order [id number] Status: Final result Visible to patient: Yes [...] - 5 cells/uL 19 High 2 Resulting Agency [facility] Specimen Collected: 03/22/23 9:20 AM EST [...] 00) Collection comment: CSF ROUT ANALYSIS (Order [id number]) Linked Results Procedure Abnormality Status CSF CELL COUNT Abnormal Abnormal Final result PROTEIN CSF Abnormal Abnormal Final result GLUCOSE CSF Normal Final result CSF MANUAL DIFF (Order [id number]) - Reflex for Order [id number] PROTEIN CSF (Order [id number]) GLUCOSE CSF (Order [id number]) CSF CELL COUNT (Order [id number]) Patient Release Status: This result is viewable by the patient in MyChart. Last viewed in [employer]: 03/27/2023 9:52 AM By: Josie Landis Routing History Priority Sent On From To Message Type 03/22/2023 2:15 PM Ce, Scheduled Orders In Codie Soto MD Results 03/22/2023 11:03 AM Lab, Background User Codie Soto MD Results View [employer] Info CSF ROUT ANALYSIS (Order #[id number]) on 02/22/23 CAP/CLIA/Joint Commission Regulatory Result Report CSF ROUT ANALYSIS (Order #[id number]) on 02/22/23 Patient Communication CSF ROUT ANALYSIS Add Comments Seen PROTEIN CSF Add Comments Seen GLUCOSE CSF Add Comments Seen CSF CELL COUNT Add Comments Seen Related Result Highlights CYTOLOGY NON-SEAFOOD HARVESTER Final result 03/22/2023 FINAL DIAGNOSIS A - [...] 4. Alexia 5. 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 Brain lesion 3. Confusion 4. Alexia 5. Visual field defect CYTOLOGY NON-SEAFOOD HARVESTER: [id number] Order: [id number] Collected 03/22/2023 9:20 AM Status: Final result [...] (FCLL) Future, Expected: 02/22/2023, Clinician Collect, Resulting [facility] FLOW CYTOMETRY FOR LEUKEMIA/LYMPHOMA (FCLL) REFLEX: [id number] Order: [id number] - Reflex for Order [id number] Status: Final result Visible to patient: Yes (seen) Dx: Alexia; Confusion; Visual field defec... 0 Result Notes Component Interpretation There is no evidence of involvement by a lymphoproliferative disorder or abnormal blast population.Correlation with the clinical findings is suggested. 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 Brain lesion 3. Confusion 4. Alexia 5. Visual field defect FUNGAL CSF CULT/CAD Order: [id number] Status: Final result Visible to patient: Yes (not seen) Dx: Neoplasm of uncertain behavior of bra... Specimen Information: CSF LUMBAR PUNCTURE 0 Result Notes important suggestion Newer results are available. Click to view them now. Culture No Fungus isolated after 28 days Resulting Agency: [facility] Specimen Collected: 03/22/23 9:20 AM EST Last Resulted: 04/19/23 11:02 AM EST Lab Flowsheet Order Details View Encounter Lab and Collection Details Routing Result History View All Conversations on this Encounter Result Care Coordination Patient Communication Add Comments Add Notifications Back to Top CRYPTOCOCCUS AG DET Order: [id number] - Reflex for Order [id number] Status: Final result Visible to patient: Yes (seen) Dx: Neoplasm of uncertain behavior of bra... 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 Brain lesion 3.Confusion 4. Alexia 5. 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 Brain lesion 3. Confusion 4. Alexia 5. Visual field defect Source: CSF LUMBAR PUNCTURE LYME DISEASE BY PCR Order: [id number] Status: Final result Visible to patient: Yes [...] developed and its performance characteristics determined by [employer]. It has not been cleared or approved by the US Food and Drug Administration. This test was performed in a CLIA certified laboratory and is intended for clinical purposes. Performed By: [facility] [address] [place] [id number] Machine Group Leader: Rj Camcaho MD, PhD CLIA Number: [id number] Resulting [facility] Specimen Collected: 03/22/23 9:20 AM EST Last Resulted: 03/25/23 9:09 AM EST MISC SEND OUT TST 1 Future, Expected: 02/22/2023, Lab, Specimen Types - CSF;, [facility] Future, Expected: 02/22/2023, Lab, Specimen Types - CSF;, Resulting [facility] MYELIN BASIC PRO CSF Clinician Collect, Routine, Specimen Sources - CSF LUMBAR PUNCTURE;, Resulting [facility], Dx: 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 Brain lesion 3. Confusion 4. Alexia 5. Visual field defect MYELIN BASIC PRO CSF Order: [id number] Status: Final result Visible to patient: Yes (seen) Dx: Neoplasm of uncertain behavior of bra... 0 Result Notes Component Ref Range & Units 1 mo ago 4 mo ago Myelin Basic Protein, CSF 0.00 - 5.50 ng/mL 5.05 8.63 High CM Comment: INTERPRETIVE INFORMATION: Myelin Basic Protein This test was developed and its performance characteristics determined by [facility]. It has not been cleared or approved by the US Food and Drug Administration. This test was performed in a CLIA certified laboratory and is intended for clinical purposes. 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 Brain lesion 3. Confusion 4. Alexia 5. 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 Brain lesion 3. Confusion 4. Alexia 5. 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 Brain lesion 3. Confusion 4. Alexia 5. Visual field defect VDRL CSF Order: [id number] Status: Final result Visible to patient: Yes [...] out neurosyphilis. Clinical correlation is required. Resulting [facility] Specimen Collected: 03/22/23 9:20 AM EST Last Resulted: 03/23/23 12:33 PM EST Contains abnormal data CSF CELL COUNT Order: [id number] Status: Final result Visible to patient: Yes [...] cells/uL 16 High 19 High 2 Resulting [facility] Specimen Collected: 03/22/23 9:20 AM EST Last Resulted: 03/22/23 11:04 AM EST Lab Flowsheet Order Details View Encounter Lab and Collection Details Routing Result History View All Conversations on this Encounter Result Care Coordination Patient Communication Add Comments Seen Back to Top Contains abnormal data CSF MANUAL DIFF Order: [id number] - Reflex for Order [id number] Status: Final result Visible to patient: Yes (seen) Dx: Brain lesion 0 Result Notes important suggestion Newer results are available. Click to view them now. Component Ref Range & Units 1 mo ago 4 mo ago Diff Total, CSF cells counted 100 100 Lymph%, CSF 50 - 90 % 99 High 90 Fallon%, CSF 10 - 50 % 1 Low 10 Resulting [facility] Specimen Collected: 03/22/23 9:20 AM EST Last Resulted: 03/22/23 2:40 PM EST CRYPTOCOCCUS AG DET Order: [id number] - Reflex for Order [id number] Status: Final result Visible to patient: Yes (seen) Dx: Neoplasm of uncertain behavior of bra... Specimen Information: CSF LUMBAR PUNCTURE 0 Result Notes Component Ref Range & Units 1 mo ago 4 mo ago Cryptococcal Ag Result Cryptococcal Antigen NOT DETECTED Cryptococcal Antigen NOT DETECTED Cryptococcal Antigen NOT DETECTED CM Comment: by line flow immunoassay Resulting [facility] Specimen Collected: 03/22/23 9:20 AM EST Last Resulted: 03/22/23 3:13 PM EST FLOW CYTOMETRY FOR LEUKEMIA/LYMPHOMA (FCLL) REFLEX: [id number] Order: [id number] - Reflex for Order [id number] Collected 03/22/2023 9:20 AM Status: Final result Visible to patient: Yes (seen) Dx: Alexia; Confusion; Visual field defec... 0 Result Notes Component Interpretation There is no evidence of involvement by a lymphoproliferative disorder or abnormal blast population.Correlation with the clinical findings is suggested. /ALB RATIO CSF Order: [id number] Status: Final result Visible to patient: Yes (seen) Dx: Brain lesion 0 Result Notes Component Ref Range & Units 1 mo ago 4 mo ago Immunoglobulin G, CSF 1.0 - 3.0 mg/dL 4.5 High 4.1 High Albumin, CSF 10.0 - 30.0 mg/dL 57.4 High 53.8 High CSF IgG / Albumin Ratio 0.06 - 0.17 0.08 0.08 Resulting [facility] Specimen Collected: 03/22/23 9:38 AM EST Last Resulted: 03/30/23 1:35 PM EST BANDS OLIGOCLONAL CSF Order: [id number] - Part of Panel Order [id number] Status: Final result Visible to patient: Yes (seen) Dx: Brain lesion 0 Result Notes Component 1 mo ago CSF Oligoclonal Bands Oligoclonal bands are not seen in the CSF. Staff Review (Oligo Banding) Reviewed by Estefania Barajas MD Resulting [facility] Specimen Collected: 03/22/23 9:38 AM EST Last Resulted: 03/30/23 1:29 PM EST BANDS OLIGOCLONAL CSF Order: [id number] - Part of Panel Order [id number] Status: Final result Visible to patient: Yes (seen) Dx: Brain lesion 0 Result Notes Component 1 mo ago CSF Oligoclonal Bands Oligoclonal bands are not seen in the CSF. Staff Review (Oligo Banding) Reviewed by Estefania Barajas MD Resulting [facility] Specimen Collected: 03/22/23 9:38 AM EST Last Resulted: 03/30/23 1:29 PM EST Final Pathology: SURGICAL PATHOLOGY: [id number] Order: [id number] Collected 11/04/2022 11:13 AM Status: Final result [...] been determined by the performing laboratory within [facility] s Psychiatric Pathology and Laboratory Medicine [place] ([facility], [facility], [facility], [facility], [facility], or [facility]) in a manner consistent with [...] permanent in A2. Gross examination performed at [facility], [address] [place] [address] 11/04/2022 B. BRAIN BIOPSY Received fresh labeled right corpus callosum lesion are multiple fragments of white-goodson tissue aggregating to 0.6 x 0.5 x 0.2 cm. The specimen is submitted entirely in cassette B1. [place] [address] JXM/DANIELE 11/04/22 12:21 PM Intraoperative Diagnosis A. BRAIN BIOPSY FS A1: Right corpus callosum lesion, slightly hypercellular 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 tissue with rare atypical cells. (Dr. Narvaez). Intraoperative diagnosis performed at [address] 11/04/2022 Clinical History Pre-op diagnosis: Glioma (HCC) [C71.9] Performing Lab Diagnostic interpretation performed at [place] [address] CLIA# [id number] Machine Group Leader: Jasen Rivear M.D. Resulting Agency [facility] Specimen Collected: 11/04/22 11:13 AM EDT Last Resulted: 11/09/22 1:09 PM EDT Order Details View Encounter Lab and Collection Details Routing Result History View All Conversations on this Encounter Scans on Order [id number] Document on 11/09/2022 1:09 PM by Anusha Thomas MD Result Care Coordination Patient Communication 11/14/2022 1:09 PM Release Now Not seen Back to Top FISH FOR EGFR: [id number] Order: [id number] - Reflex for Order [id number] Collected 11/04/2022 11:22 AM Status: Final result Visible to patient: Yes (seen) Dx: Glioma (HCC) 0 Result Notes Component FISH FOR EGFR FISH for EGFR Laboratory Accession Number: [id number] Case: [id number] Block: B1 Sample Type: FFPET Sample Description: [...] and chromosome 7 centromere (CEP 7) probes ([place], [place], [place]). The slides were scored [...] and its performance characteristics determined by the [facility] [place] ([facility]). It has not been cleared or approved by the FDA. [facility] is regulated under CLIA as qualified to perform high- complexity testing. This test is used for clinical purposes. It should not be regarded as investigational or for research. Interpretation performed at [facility], [address] [place] [address]. CLIA Number: [id number] As reviewed by Mayra Louis MD, PhD [...] of specimen(s): Clinical History SURGICAL PATHOLOGY (Order [id number]) FISH FOR EGFR (Order [id number]) - Reflex for Order [id number] Patient Release Status: This result is scheduled for release on 11/14/2022 1:09 PM. Routing History Priority Sent On From To Message Type 11/09/2022 3:26 PM Lab, Background User Anusha Thomas MD Results 11/09/2022 1:09 PM Lab, Background User Carlos Jovel MD Results 11/09/2022 1:09 PM Lab, Background User Harlan Guy MD Results View Smartlink Info SURGICAL PATHOLOGY (Order #[id number]) on 11/04/22 CAP/CLIA/Joint Commission Regulatory Result Report SURGICAL PATHOLOGY (Order #[id number]) on 11/04/22 SURGICAL PATHOLOGY: Patient Communication 11/14/2022 1:09 PM Release Now Not seen Imaging: Results CT CHEST W IVCON (Acc#[id number]) (Order [id number]) Patient Info Patient Name Sex Josie Landis ([id number]) Female 1965 Imaging Findings Finding Acuity Linked [...] exam could be obtained in 12 months Glue Bone Crusher: [facility] Transcribe Date/Time: Nov 25 2022 5:31P Dictated by : TOMAS DEVINE MD This examination was interpreted and the report reviewed and electronically signed by: TOMAS DEVINE MD on Nov 25 2022 5:38PM EST Results-Findings * * *Final Report* * * DATE OF EXAM: Nov 25 2022 12:18PM [facility] [place] 0539 - CT CHEST W IVCON / [...] abdomen and pelvis will be reported separately. Oil Field Worker (topogram) images: No additional findings. Result History CT CHEST W IVCON (Order #[id number]) on 11/25/2022 - Order Result History Report Result Information Status Provider Status Actionable Final result (11/25/2022 5:41 PM) Reviewed Exam Performed Date and Time 11/25/2022 12:18 PM [facility] DIVISION OF RADIOLOGY [facility] [address] ABD/PEL W IVCON (Acc#[id number]) (Order [id number]) Patient Info Patient Name Sex Josie Landis ([id number]) Female 1965 11/25/2022 12:44 PM - Radiology, Oru In Impression IMPRESSION: No metastatic disease in the abdomen and pelvis. Gl[facility] Crus[facility] Transcribe Date/Time: Nov 25 2022 12:23P Dictated by : BLAYNE JONES MD This examination was interpreted and the report reviewed and electronically signed by: BLAYNE JONES MD on Nov 25 2022 12:42PM EST MRI Report MRI BRAIN WO/W IVCON (Acc#[id number]) (Order [id number]) MRI CERVICAL SPINE WO/W IVCON (Acc#[id number]) (Order [id number]) MRI THORACIC SPINE WO/W IVCON (Acc#[id number]) (Order [id number]) MRI BRAIN WO/W IVCON Exam End: 04/19/2023 12:36 PM (Final result) Narrative: * * *Final Report* * * DATE OF EXAM: Apr 19 2023 12:20PM MIKAL Perales5 - MRI BRAIN WO/W IVCON / PROCEDURE REASON: multiple diagnoses * * * * Physician Interpretation * * * * EXAMINATION: MRI BRAIN WO/W IVCON, MRI THORACIC SPINE WO/W IVCON, MRI CERVICAL SPINE WO/W IVCON Clinical history provided by the ordering clinician via order question and clinical decision support entries: Radiation necrosis/pseudoprogression, Other (specify in question below), Other (specify in question below). Brain/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 neoplasm, monitor, Metastatic disease evaluation. Brain lesion [...] glioma, she referred the patient to our [facility] for evaluation, On 11/02/22, she had a biopsy by Dr. Jovel, neurosurgeon at the [facility]. The pathology is basically non diagnostic. TECHNIQUE: [...] are 5 lumbar-type vertebrae. Anatomic variant: None. Glue Bone Crusher: RHIANNON Transcribe Date/Time: Apr 19 2023 2:31P Dictated by : BLAYNE VINCENT MD This examination was interpreted and the report reviewed and electronically signed by: LBAYNE VINCENT MD on Apr 19 2023 3:00PM [...] glioma, she referred the patient to our [facility] for evaluation, On 11/02/22, shehad a biopsy by Dr. Jovel, neurosurgeon at the [facility]. The pathology is basically non diagnostic. Symptomatically [...] not astroke and referred her to the [facility] and had a biopsy by Dr. Feliz [...] no abnormalities. Trauma Susac Syndrome (SS) (From [place] [employer] (excerpt/verbatim). SS is a [...] Splenium of the Corpus Callosum. Cureus 13(11): b70402. doi:10.7759/cureus.07414), 2-Graham Paul eta al. Clinical features of acute corpus callosum infarction patients. Int J Clin Exp Pathol. 2014; 7(8): 4207-1642. 3-Damari Guerrero. 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 Brain Behav. 2019 Nov;9(11): k78102. 4-Conrado Cook and Holly Ley. 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 BMJ Case Rep. 2014; 2014: [id number]. 5-Fadi Miranda et al. Alexia Without Agraphia: A Rare Entity. Cureus. 2017 Chon; 9(6): e1304. 6-Lewis Sullivan MD; Ruchi Torre MD. Splenium Infarct Due to Cerebral Venous Thrombosis. Arch Neurol. 2007;64(10):1540. 7-prais Bermudez al. Lesions of the Corpus Callosum: [...] I would recommend. I spoke with Dr. Harlan Lozano, neurology staff for primary neurology service, [...] he was a vein. Referral to be 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 infectious diseases group, is a consideration, to get their opinion, whether there might be still a possibility of an infectious etiology. Furthermore, I recommend for the patient, to consider a second opinion at the large academic institution preferably. Thus institutions could include, in town, and Critical access hospital institutions in the area, or region would be [facility], [facility], [facility], [facility] in [place], or further away, at [facility] in [facility] or on the [facility], [facility], or one of the Hospitals, at [facility], i.e., [facility]. PLAN: 1-Splenium of the corpus callosum lesion, etiology unclear: S/P biopsy with non diagnostic pathology. Work up so far unremarkable. Plan to do an MRI of the brain w and w/o + perfusion in 3 month's time. -Follow up in my neuro-oncology clinic 1-2 days after the MRI if the MRI is done at a different [facility], or the same day if the MRI [...] Pro from cerebrovascular/stroke neurology. 8-Follow with her statistical engineer for her CAD, S/p coronary artery stents. 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 For now, as she had episodes ofconduction [...] time. 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 Based on her duties, I think Mrs. [...] with Heide Dumont RN [facility] Popcorn Vendor In the end the patient and family [...] see the patient, at least 50% of [id number] patient care, completing clinical documentation, obtaining and/or reviewing separately obtained history, performing a medically appropriate examination, counseling and educating the patient/family/caregiver, ordering medications, tests, or procedures, communicating with other HCPs (not separately reported), independently interpreting results (not separately reported), communicating results to the patient/family/caregiver and care coordination (not separately reported). Codie Soto MD Staff Neuro-Oncologist [facility], [place], [place] CC: CC -Carlos Jovel MD, Neurosurgery, [place] [facility], [facility], [facility] CC: Rad Pro DO, Vascular Neurology, [facility] CC: Dr. Solis Cool DO, PCP, [facility] [address], [facility] [address], ; -Harlan Lozano MD, Neurology/Neuroimmunology, [facility] -David Rios MD, Neuro-ophthalmology, [facility] -Americo Hnaey DO, Infectious Disease, [facility] -Rich Gudino MD, Neuro-Immunology, Neurology, [facility] -Berto Albarado MD, Neuro-Immunology, Neurology, [facility] Inst[facility]* Patient Instructions* Rich Gudino MD - [...] any questions or concerns. documented in [facility] History of Present illness Narrative* Berto Albarado MD - 03/30/2023 11:15 AM EST Images from the original note were not included. [facility] FOLLOWUP/ESTABLISHED PATIENT VISIT Also followed by: Patient Care Team: Solis Cool DO as PCP - General (Internal Medicine) Corrie Alvares as Referring (Cardiology) Rad Pro DO (Neurology) Christine Aguayo LSW as [employer] Bonder (Hematology/Oncology) PRINCIPAL NEUROLOGIC DIAGNOSIS: Abnormal brain lesion [...] patient-entered data. Neuro-QoL Functions (higher=better functioning) Flowsheet [facility] Office Visit from 03/30/2023 in [facility] Office Visit from 01/12/2023 in [facility] Upper Extremity Domain T Score 44.04 49 Lower Extremity Domain T Score 44.4 37 Cognitive Function Domain T Score 25.15 27 Positive Affect Well Being T Score -- -- Ability To Participate In Social Roles T Score 39.9 41 Satisfaction With Social Roles T Score 44.64 34 Neuro-QoL Symptoms (higher=worse symptoms) Flowsheet [facility] Office Visit from 03/30/2023 in [facility] Office Visit from 01/12/2023 in [facility] Sleep Domain T Score 62.43 64 [...] Coronary artery disease, Coronary artery disease involving guidiville coronary artery of guidiville heart without angina pectoris (11/02/2022), Gastroesophageal reflux disease without esophagitis (11/02/2022), Hyperlipidemia, Primary hypertension (11/02/2022), Seizures (HCC) (11/02/2022), and Stroke ([facility]). has a current medication list [...] Flowsheet Row Office Visit from 03/30/2023 in [facility] Office Visit from 01/12/2023 in [facility] Processing Speed Total Number Correct 38 [...] Department Center 04/19/2023 10:00 AM MRI RADIO [facility] W[facility] (I-STAT/1.5T) DMITRIY Terrazas Marco Antonio 04/21/2023 1:30 PM Codie Soto MD [facility] Office Visit on 03/30/23 IMMUNOFIXATION SCREEN, SERUM PROTEIN ELECTROPHORESIS SERUM W/INTERP Seen with Dr. Albarado. Rich Gudino MD Neuroimmunology Fellow [facility] for Multiple Sclerosis Patient seen and [...] above. Berto Albarado MD documented in this [facility]11-[facility]23 Nurse Note* Sheila Obrien RN - 03/22/2023 8:00 PM EST Completed post procedure phone call. Josie is feeling well and has returned to her baseline diet and activity. Denies questions or concerns related to her LP appointment on 03/22/2023 and had no surgical site concerns. Sheila Obrien RN documented in this [facility]11-20-2023 Surgical operation note* Brief Op Note - Americo Hernandez PA-C - 03/22/2023 9:32 AM EST BRIEF OP NOTE LOG ID: [id number] Surgery/Procedure Date: 03/22/2023 Incision/Procedure Start Time: 9:15 AM Incision Close/Procedure End Time: 9:30 AM Surgeon(s)/Proceduralist(s) and Online Media Director(s): Americo Hernandez PA-C - Primary Procedure(s): LP under fluoroscopic guidance. Anesthesia: Local Findings: LP L3/4 right; OP = 21; 22 cc csf Estimated Blood Loss: 0 ml Specimens: CSF to lab Complications: None Pre-Op/Pre-Procedure Diagnosis: Brain lesion Post-Op/Post-Procedure Diagnosis: Same SIGNATURE: Americo Hernandez PA-C PATIENT NAME: Josie Landis DATE: March 22, 2023 TIME: 9:33 AM PAGER/CONTACT #: [phone] [facility]11-09-2023 History of Present illness Narrative* Heide Dumont RN - 03/11/2023 5:40 PM EST Disability paperwork completed by Dr Huizar. Forms and office notes have been given to secretarial support to mail to her HR department with tracking. They will document the tracking information separately. Heide Dumont RN, BSN Popcorn Vendor [facility] documented in [facility] Miscellaneous Notes* Telephone Encounter - Raeann Maria [...] MRI Cervical and Thoracic Spine- Ok at [place] Provider: Dr Huizar ok for VV within 1-2 days of scans Diagnosis: brain lesion Time Frame: April 19 Orders: MRI Brain and MRI Lumbar spine- ok for [place] Provider: Dr Huizar in person within 1-2 days of visit- or same day if at Diagnosis: brain lesion documented in this [facility]10[facility]27-[facility]23 Miscellaneous Notes* Telephone Encounter - Heide Dumont RN - 02/26/2023 2:02 PM EDT Contacted by [facility] director of physical therapy that patient had arrived for scheduled lab work. Patient had been called and told she was having a lumbar puncture at 1pm and needed labs. The lab requisition was printed and the director of physical therapy noticed it was for CSF labs and [...] puncture for 03/22 Heide Dumont RN, BSN [employer] Vendor [facility] documented in this [facility]10-19-[facility] History of Present illness Narrative* Codie Soto MD - 02/18/2023 2:31 PM EDT Images from the original note were not included. Neurological [place] [facility] NEURO-ONCOLOGY CLINIC FOLLOW VISIT [...] my review). On 06/08/22, she sima to for the above issues. She saw cerebrovascular/stroke neurologist Dr. Pro and did extensive work up for possible CVA. On 10/21/22, Dr. Pro based on the MRI from that showed alight progression of the lesion, with the concern that this is a glioma referred the patient to our [facility] for evaluation. Dr. Feliz performed a biopsy [...] Patient is a 57 y/o female from [place], [place] with PMH CAD (s/p stent placement- [...] epic review 57 y/o female admitted to [facility] due to confusion and aphasia on 06/08/22. [...] follow-up is recommended. Heide Dumont, RN, BSN Popcorn Vendor [facility] [...] I would recommend. I spoke with Dr. Harlan Lozano, neurology staff for primary neurology service, [...] Coronary artery disease Coronary artery disease involving guidiville coronary artery of guidiville heart without angina pectoris 11/02/2022 Gastroesophageal reflux [...] et al.1 and Kinza and Folstein2. (c) 1974, 1997 [employer] Used withpermission. References: 1. Folstein MF, Folstein SE, Perez [place]. Mini-Mental State: a practical method for grading the cognitive state of patients for the clinician. J Psychiatr Res. 1975; 12:189-198. 2. JR Kinza, Nabeel MF, Mini-Mental State Examination (MMSE). Psychopharm Bull. 1988;24:689-692. 3. Jonelle LucasT, Aniceto FJ, Lesley RD, Teja A, Michelle F. Neuropsychological function in Alzheimer's disease: pattern of impairment and rates of progression. Arch Neurol. 1988;45:263-268. 4. Sadi JA, Jae B,Chon S-P, Paul SHEEHAN. Predictors of cognitive and functional progression in patients with probable Alzheimer's disease. Neurology. 1992;42:8358-3997. GENERAL EXAM: General appearance: Well appearing, alert, [...] - - Final Pathology: \\\ SURGICAL PATHOLOGY: [id number] Order: [id number] Collected 11/04/2022 11:13 AM Status: Final result [...] been determined by the performing laboratory within [facility] Laboratory Medicine [place] ([facility], [facility], [facility], [facility], [facility], or [facility]) in a manner consistent with [...] permanent in A2. Gross examination performed at [facility], [address] [place] [address] 11/04/2022 B. BRAIN BIOPSY Received fresh labeled right corpus callosum lesion are multiple fragments of white-goodson tissue aggregating to 0.6 x 0.5 x 0.2 cm. The specimen is submitted entirely in cassette B1. [place] [address] JXM/DANIELE 11/04/22 12:21 PM Intraoperative Diagnosis A. BRAIN BIOPSY FS A1: Right corpus callosum lesion, slightly hypercellular 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 tissue with rare atypical cells. (Dr. Narvaez). 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 Resulting Agency CCM Specimen Collected: 11/04/22 11:13 AM EDT Last Resulted: 11/09/22 1:09 PM EDT Order Details View Encounter Lab and Collection Details Routing Result History View All Conversations on this Encounter Scans on Order [id number] Document on 11/09/2022 1:09 PM by Anusha Thomas MD Result Care Coordination Patient Communication 11/14/2022 1:09 PM Release Now Not seen Back to Top FISH FOR EGFR: [id number] Order: [id number] - Reflex for Order [id number] Collected 11/04/2022 11:22 AM Status: Final result Visible to patient: Yes (seen) Dx: Glioma (HCC) 0 Result Notes Component FISH FOR EGFR FISH for EGFR Laboratory Accession Number: [id number] Case: [id number] Block: B1 Sample Type: FFPET Sample Description: [...] and its performance characteristics determined by the [facility]'s [facility] Pathology and Laboratory Medicine [place] ([facility]). It has not been cleared or approved by the FDA. [facility] is regulated under CLIA as qualified to perform high- complexity testing. This test is used for clinical purposes. It should not be regarded as investigational or for research. Interpretation performed at [facility], [address] [place] [address]. CLIA Number: [id number] As reviewed by Mayra Louis MD, PhD [...] of specimen(s): Clinical History SURGICAL PATHOLOGY (Order [id number]) FISH FOR EGFR (Order [id number]) - Reflex for Order [id number] Patient Release Status: This result is scheduled for release on 11/14/2022 1:09 PM. Routing History Priority Sent On From To Message Type 11/09/2022 3:26 PM Lab, Background User Anusha Thomas MD Results 11/09/2022 1:09 PM Lab, Background User Carlos Jovel MD Results 11/09/2022 1:09 PM Lab, Background User Harlan Guy MD Results View Smartlink Info SURGICAL PATHOLOGY (Order #[id number]) on 11/04/22 CAP/CLIA/Joint Commission Regulatory Result Report SURGICAL PATHOLOGY (Order #[id number]) on 11/04/22 SURGICAL PATHOLOGY: Patient Communication 11/14/2022 1:09 PM Release Now Not seen Imaging: Results CT CHEST W IVCON (Acc#[id number]) (Order [id number]) Patient Info Patient Name Sex Josie Landis ([id number]) Female 1965 Imaging Findings Finding Acuity Linked [...] exam could be obtained in 12 months Glue Bone Crusher: PSCB Transcribe Date/Time: Nov 25 2022 5:31P Dictated by : TOMAS DEVINE MD This examination was interpreted and the report reviewed and electronically signed by: TOMAS DEVINE MD on Nov 25 2022 5:38PM EST Results-Findings * * *Final Report* * * DATE OF EXAM: Nov 25 2022 12:18PM [facility] [place] 0539 - CT CHEST W IVCON / [...] abdomen and pelvis will be reported separately. Oil Field Worker (topogram) images: No additional findings. Result History CT CHEST W IVCON (Order #[id number]) on 11/25/2022 - Order Result History Report Result Information Status Provider Status Actionable Final result (11/25/2022 5:41 PM) Reviewed Exam Performed Date and Time 11/25/2022 12:18 PM [facility] DIVISION OF RADIOLOGY [facility] [address] ABD/PEL W IVCON (Acc#[id number]) (Order [id number]) Patient Info Patient Name Sex Josie Landis ([id number]) Female 1965 11/25/2022 12:44 PM - Radiology, Oru In Impression IMPRESSION: No metastatic disease in the abdomen and pelvis. Glue Bone Crusher: P[facility] Transcribe Date/Time: Nov 25 2022 12:23P Dictated by : BLAYNE JONES MD This examination was interpreted and the report reviewed and electronically signed by: BLAYNE JONES MD on Nov 25 2022 12:42PM EST MRI Report MRI BRAIN WO/W IVCON Exam End: 02/18/2023 10:29 AM (Final result) Narrative: * * *Final Report* * * DATE OF EXAM: Feb 18 2023 9:38AM WR 0295 - MRI BRAIN WO/W IVCON / PROCEDURE REASON: Neoplasm * * * * Physician Interpretation * * * * EXAMINATION: MRI BRAIN WO/W IVCON, MRI LUMBAR SPINE WO/W IVCON CLINICAL HISTORY: Neoplasm - - - Othercorpus callosum lesion (accession [id number]), Other (specify in question below) (accession [id number]) - Brain/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 neoplasm, monitor (accession [id number]), Brain/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 neoplasm, assess treatment response (accession [id number]) - - F/U TO PREV - TECHNIQUE: [...] and assume there are 5 lumbar-type vertebrae. Glue Bone Crusher: [facility] Transcribe Date/Time: Feb 18 2023 10:39A Dictated [...] glioma, she referred the patient to our [facility] for evaluation, On 11/02/22, shehad a biopsy by Dr. Jovel, neurosurgeon at the [facility]. The pathology is basically non diagnostic. Symptomatically [...] not astroke and referred her to the [facility] and had a biopsy by Dr. Feliz [...] no abnormalities. Trauma Susac Syndrome (SS) (From [place] [employer] (excerpt/verbatim). SS is a [...] brain MRI is from . REFERENCES: 1-Marisabel M, Barber H, Franny H, et al. 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 Cureus 13(11): a00519. doi:10.7759/cureus.76006), 2-Graham Paul eta al. Clinical features of acute corpus callosum infarction patients. Int J Clin Exp Pathol. 2014; 7(8): 7783-5386. 3-Damari Guerrero. 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 Brain Behav. 2019 Nov;9(11): r77314. 4-Conrado Cook and Holly Ley. 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 BMJ Case Rep. 2014; 2014: [id number]. 5-Fadi Miranda et al. Alexia Without Agraphia: [...] I would recommend. I spoke with Dr. Harlan Lozano, neurology staff for primary neurology service, [...] the MRI is done at a different [facility], or the same day if the MRI is done at . -Order lumbar puncture under fluoroscopy, interventional neuroradiology. Test to include: -Cytology -Gene rearrangement send out to [facility] -Flow Cytometry. NOTE: PATIENT IS ON DAILY [...] work up. Dr. Lozano is a neuro cra and was the neurology staff while admitted [...] Pro from cerebrovascular/stroke neurology. 8-Follow with her statistical engineer for her CAD, S/p coronary artery stents. 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 For now, as she had episodes of [...] Routine, Specimen Sources - CEREBROSPINAL FLUID.;, Resulting [place] [facility], Dx: 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 Brain lesion 3. Confusion 4. Alexia 5. Visual field defect CSF CULT + STAIN Clinician Collect, Routine, Specimen Sources - CEREBROSPINAL FLUID;, Resulting [facility], Dx: 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 Brain lesion 3. Confusion 4. Alexia 5. Visual field defect CSF ROUT ANALYSIS Clinician Collect, Routine, Specimen Sources - CSF LUMBAR PUNCTURE;, Resulting [facility], Dx: 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 Brain lesion 3. Confusion 4. Alexia 5. Visual field defect CSF SPECIMEN LABELS Referral By - CODIE SOTO 1 visit, Qty-1, Normal, Routine, Dx: 1. Neoplasm of uncertainbehavior of brain, supratentorial (HCC) 2. Brain lesion 3. Confusion 4. Alexia 5. Visual field defect CYTOLOGY NON-SEAFOOD HARVESTER Clinician Collect, Routine, Specimen Sources - CSF LUMBAR PUNCTURE;, Resulting [facility], Dx: 1. Neoplasm of uncertain [...] Future, Expected: 02/22/2023, Clinician Collect, Resulting Agency [facility] FUNGAL CSF CULT/CAD Clinician Collect, Routine, Specimen Sources - CSF LUMBAR PUNCTURE;, Resulting [facility], Dx: 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 Brain lesion 3. Confusion 4. Alexia 5. Visual field defect GLUCOSE RANDOM BLD Future, Expected: 02/22/2023, Lab, Routine, Specimen Sources - BLOOD;, Resulting [facility], Dx: 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 Brain lesion 3.Confusion 4. Alexia 5. Visual field defect IR LUMBAR PUNCTURE DIAGNOSTIC () Routine LYME DISEASE BY PCR Future, Expected: 02/22/2023, Lab, Routine, Specimen Sources - CEREBROSPINAL FLUID.;, Resulting [facility], Dx: 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 Brain lesion 3. Confusion 4. Alexia 5. Visual field defect Source: CSF LUMBAR PUNCTURE MISC SEND OUT TST 1 Future, Expected: 02/22/2023, Lab, Specimen Types - CSF;, Resulting [facility] MISC SEND OUT TST 1 Future, Expected: 02/22/2023, Lab, Specimen Types - CSF;, Resulting [facility] MYELIN BASIC PRO CSF Clinician Collect, Routine, Specimen Sources - CSF LUMBAR PUNCTURE;, Resulting [facility], Dx: 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 Brain lesion 3. Confusion 4. Alexia 5. Visual field defect OLIGOCLONAL BAND CSF Clinician Collect, Routine, Specimen Sources - CSF LUMBAR PUNCTURE;, Resulting [facility], Dx: 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 Brain lesion 3. Confusion 4. Alexia 5. Visual field defect TOURTELLOTTE CSF Clinician Collect, Routine, Specimen Sources - CSF LUMBAR PUNCTURE;, Resulting [facility], Dx: 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 Brain lesion 3. Confusion 4. Alexia 5. Visual field defect VDRL CSF Clinician Collect, Routine, Specimen Sources - CSF LUMBAR PUNCTURE;, Resulting [facility], Dx: 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 Brain lesion 3. Confusion 4. Alexia 5. Visual field defect I saw the patient in collaboration with Eva Robertson, RN [facility] Popcorn Vendor In the end the patient and family [...] see the patient, at least 50% of [id number] patient care, completing clinical documentation, obtaining and/or reviewing separately obtained history, performing a medically appropriate examination, counseling and educating the patient/family/caregiver, ordering medications, tests, or procedures, communicating with other HCPs (not separately reported), independently interpreting results (not separately reported), communicating results to the patient/family/caregiver and care coordination (not separately reported). Codie Soto MD Staff Neuro-Oncologist [facility], [place], [place] CC: CC -Carlos Jovel MD, Neurosurgery, [facility] Neuro[facility], [facility], [facility] CC: Rad Pro DO, Vascular Neurology, [facility] CC: Dr. Solis Cool DO, PCP, [address] [place] [address] [address], [facility] [address], ; -Harlan Lozano MD, Neurology/Neuroimmunology, [facility] -David Rios MD, Neuro-ophthalmology, [facility] -Americo Haney DO, Infectious Disease, [facility] documented in [facility]10[facility]23 Nurse Note* Jenni Strong MA - 02/18/2023 2:09 PM EDT Additional intake questions: Has the patient had fever, nausea, vomiting, diarrhea, constipation, fatigue for > 1 week? No Does the patient have a decreased appetite? No Does patient want to see a Hot Top Liner? No (yes to any of above refer patient to schedulers for dietitian appointment) ) Does patient have any new or increased numbness or tingling of extremities? Yes, both hands tingling Is patient interested in fertility information? No Does patient need any prescription refills? No Does patient have an advanced directive in place? No, Patient referred to Resource Center documented in this encounterL[facility]10-19-2023 History of Present illness Narrative* David Justice [...] Multiple Sclerosis Spine: Lumbar spine SIGNATURE: RT Hayden(Irving) PATIENT NAME: Josie Landis DATE: February 18, 2023 TIME: 9:25 AM documented in this encounterLancaster [facility] Hospital09-12-2023 Instructions* Patient Instructions* Americo Haney DO - 01/12/2023 1:16 PM EDT Follow up the MRI's in March I will talk with Dr. Lozano about your visual field documented in this encounterLancaster [facility] Hospital09-12-2023 History of Present illness Narrative* Americo Haney [...] Coronary artery disease Coronary artery disease involving guidiville coronary artery of guidiville heart without angina pectoris 11/02/2022 Gastroesophageal reflux [...] 12, 2023 1:03 PM documented in this encounterLancaster [facility] Hospital09-12-2023 Nurse Note* Teagan Fletcher MA - 01/12/2023 12:58 PM EDT Tobacco Use: .3 packs/day, for 40 years. Types: Cigarettes Was smoking cessation packet given? N/A - Patient is a non-smoker or quit >1 year ago. Was a referral initiated?N/A Patient is a non-smoker documented in this encounterLancaster [facility] Hospital09-12-2023 Instructions* Patient Instructions* Rich Gudino MD - [...] any questions or concerns. documented in this encounterLancaster [facility] Hospital09-12-2023 History of Present illness Narrative* Harlan Lozano MD - 01/12/2023 9:00 AM EDT Images from the original note were not included. [facility] NEW PATIENT EVALUATION/CONSULTATION Referral source: No referring provider defined for this encounter. Also followed by: Patient Care Team: Solis Cool DO as PCP - General (Internal Medicine) Corrie Alvares as Referring (Cardiology) Rad Pro DO (Neurology) Christine Aguayo LSW as Automobile Brakes Bonder (Hematology/Oncology) PRINCIPAL NEUROLOGIC DIAGNOSIS: Abnormal brain lesion [...] right superior quadrantanopia. She was admitted to [facility] with increasing confusion and aphasia on [...] memory, and vision she was admitted to [facility] main campus 12/09/2022 - 12/15/2022 for expedited [...] Flowsheet Row Office Visit from 01/12/2023 in [facility] Upper Extremity Domain T Score 49 Lower Extremity Domain T Score 37 Cognitive Function Domain T Score 27 Positive Affect Well Being T Score -- Ability To Participate In Social Roles T Score 41 Satisfaction With Social Roles T Score 34 Neuro-QoL Symptoms (higher=worse symptoms) Flowsheet Row Office Visit from 01/12/2023 in [facility] Sleep Domain T Score 64 Fatigue Domain T Score 65 Anxiety Domain T Score 66 Depression Domain T Score 65 Stigma Domain T Score 58 Emotional Behavior Dyscontrol T Score -- PAST HISTORY: has a past medical history of Asthma due to seasonal allergies (11/02/2022), Basal cell carcinoma (BCC) of cheek (2020), Bipolar affective (HCC), Coronary artery disease, Coronary artery disease involving guidiville coronary artery of guidiville heart without angina pectoris (11/02/2022), Gastroesophageal reflux disease without esophagitis (11/02/2022), Hyperlipidemia, Primary hypertension (11/02/2022), Seizures (HCC) (11/02/2022), and Stroke ([facility]). has a past surgical history that includes cardiac surg procedure unlist (2017); past surgical history of (05/2022); past surgical [...] Flowsheet Row Office Visit from 01/12/2023 in [facility] Processing Speed Total Number Correct 28 [...] the arms and legs was performed including ppyvt-pe-pysrz, rapid-alternating, and fine movements. Rapid movements were [...] Dr. Lozano. Rich Gudino MD Neuroimmunology Fellow [facility] for Multiple Sclerosis [facility] STAFF PHYSICIAN NOTE OF PERSONAL INVOLVEMENT IN [...] steroids for now. All questions answered. SIGNATURE: Harlan Lozano MD PhD DATE of SERVICE: January 13, 2023 documented in this encounterLancaster [facility] Hospital08-31-2023 Miscellaneous Notes* Telephone Encounter - Eva Robertson RN - 12/31/2022 8:37 AM EDT Time Frame: WEEK OF 02/22/23 Orders: MRI Brain w/wo contrast. Provider: Dr. Huziar in person visit same day as MRI if done at or within 1-2 days of MRI if notdone at . Diagnosis: Brain lesion Time Frame: [facility] Week of 02/22/23 Orders: MRI of Lumbar spine w/wo contrast. Provider: Dr. Huizar in person visit same day as MRI if done at or within 1-2 days of MRI if notdone at . Diagnosis: Brain lesion documented in this encounterLancaster [facility] Hospital08-24-2023 History of Present illness Narrative* Codie Soto MD - 12/24/2022 2:45 PM EDT Images from the original note were not included. Neurological [place] [facility] NEURO-ONCOLOGY VIRTUAL VISIT NOTE This is a virtual visit using HIPAA compliant video platform. It required patient-provider interaction for the medical decision making as documented below. I have communicated my name and active licensure. The patient's identity and physical location wereverified at the time of this visit. Either the patient or their legal product sales representative has been informed of the risks and benefits of -- and alternatives to -- treatment through a remote evaluation andconsents to proceed with the evaluation remotely. Referring provider: ANGELY Jovel MD, Neurosurgery, [facility], [facility], [facility] Diagnosis: query brain tumor, glioma of [...] my review). On 06/08/22, she sima to for the above issues. She saw cerebrovascular/stroke neurologist Dr. Pro and did extensive work up for possible CVA. On 10/21/22, Dr. Pro based on the MRI from that showed alight progression of the lesion, with the concern that this is a glioma referred the patient to our [facility] for evaluation. Dr. Feliz performed a biopsy [...] Patient is a 57 y/o female from [place], [place] with PMH CAD (s/p stent placement- [...] epic review 57 y/o female admitted to [facility] due to confusion and aphasia on 06/08/22. [...] follow-up is recommended. Heide Dumont, RN, BSN Popcorn Vendor [facility] [...] of corpus callosum lesion - Per Dr. Huizar Armstrong: with the constellation of signs and [...] I would recommend. I spoke with Dr. Harlan Lozano, neurology staff for primary neurology service, [...] Coronary artery disease Coronary artery disease involving guidiville coronary artery of guidiville heart without angina pectoris 11/02/2022 Gastroesophageal reflux [...] [employer] Used withpermission. References: 1. Nabeel MF, Folstein SE, Perez [place]. Mini-Mental State: a practical method for grading the cognitive state of patients for the clinician. J Psychiatr Res. 1975; 12:189-198. 2. JR Kinza, Nabeel BENNETT, Mini-Mental State Examination (MMSE). Psychopharm Bull. 1988;24:689-692. 3. Jonelle RUIZ, Aniceto FJ, Lesley RD, Teja A, Michelle F. Neuropsychological function in Alzheimer's disease: pattern of impairment and rates of progression. Arch Neurol. 1988;45:263-268. 4. Sadi LORENZO, Jae B,Chon AnneP, Paul SHEEHAN. Predictors of cognitive and functional progression in patients with probable Alzheimer's disease. Neurology. 1992;42:9477-6707. GENERAL EXAM: General appearance: Well appearing, alert, [...] - - Final Pathology: \\\ SURGICAL PATHOLOGY: [id number] Order: [id number] Collected 11/04/2022 11:13 AM Status: Final result [...] been determined by the performing laboratory within [facility] and Laboratory Medicine [place] ([facility], [facility], [facility], [facility], [facility], or [facility]) in a manner consistent with [...] permanent in A2. Gross examination performed at [address] 11/04/2022 B. BRAIN BIOPSY Received fresh labeled right corpus callosum lesion are multiple fragments of white-goodson tissue aggregating to 0.6 x 0.5 x 0.2 cm. The specimen is submitted entirely in cassette B1. Gross [place] [address] JXM/DANIELE 11/04/22 12:21 PM Intraoperative Diagnosis A. BRAIN BIOPSY FS A1: Right corpus callosum lesion, slightly hypercellular 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 tissue with rare atypical cells. (Dr. Narvaez). 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 Resulting Agency CCM Specimen Collected: 11/04/22 11:13 AM EDT Last Resulted: 11/09/22 1:09 PM EDT Order Details View Encounter Lab and Collection Details Routing Result History View All Conversations on this Encounter Scans on Order [id number] Document on 11/09/2022 1:09 PM by Anusha Thomas MD Result Care Coordination Patient Communication 11/14/2022 1:09 PM Release Now Not seen Back to Top FISH FOR EGFR: [id number] Order: [id number] - Reflex for Order [id number] Collected 11/04/2022 11:22 AM Status: Final result Visible to patient: Yes (seen) Dx: Glioma (HCC) 0 Result Notes Component FISH FOR EGFR FISH for EGFR Laboratory Accession Number: [id number] Case: [id number] Block: B1 Sample Type: FFPET Sample Description: [...] and its performance characteristics determined by the [facility] and Laboratory Medicine [place] ([facility]). It has not been cleared or approved by the FDA. [facility] is regulated under CLIA as qualified to perform high- complexity testing. This test is used for clinical purposes. It should not be regarded as investigational or for research. Interpretation performed at [facility], [address] [place] [address]. CLIA Number: [id number] As reviewed by Mayra Louis MD, PhD [...] of specimen(s): Clinical History SURGICAL PATHOLOGY (Order [id number]) FISH FOR EGFR (Order [id number]) - Reflex for Order [id number] Patient Release Status: This result is scheduled for release on 11/14/2022 1:09 PM. Routing History Priority Sent On From To Message Type 11/09/2022 3:26 PM Lab, Background User Anusha Thomas MD Results 11/09/2022 1:09 PM Lab, Background User Carlos Jovel MD Results 11/09/2022 1:09 PM Lab, Background User Harlan Guy MD Results View Smartlink Info SURGICAL PATHOLOGY (Order #[id number]) on 11/04/22 CAP/CLIA/Joint Commission Regulatory Result Report SURGICAL PATHOLOGY (Order #[id number]) on 11/04/22 SURGICAL PATHOLOGY: Patient Communication 11/14/2022 1:09 PM Release Now Not seen Imaging: Results CT CHEST W IVCON (Acc#[id number]) (Order [id number]) Patient Info Patient Name Sex Josie Landis ([id number]) Female 1965 Imaging Findings Finding Acuity Linked [...] exam could be obtained in 12 months Glue Bone Crusher: RHIANNON Transcribe Date/Time: Nov 25 2022 5:31P Dictated by : TOMAS DEVINE MD This examination was interpreted and the report reviewed and electronically signed by: TOMAS DEVINE MD on Nov 25 2022 5:38PM EST Results-Findings * * *Final Report* * * DATE OF EXAM: Nov 25 2022 12:18PM [facility] [place] 0539 - CT CHEST W IVCON / [...] abdomen and pelvis will be reported separately. Oil Field Worker (topogram) images: No additional findings. Result History CT CHEST W IVCON (Order #[id number]) on 11/25/2022 - Order Result History Report Result Information Status Provider Status Actionable Final result (11/25/2022 5:41 PM) Reviewed Exam Performed Date and Time 11/25/2022 12:18 PM [facility] Agency DIVISION OF RADIOLOGY [address] [facility] [address] ABD/PEL W IVCON (Acc#[id number]) (Order [id number]) Patient Info Patient Name Sex Josie Santos ([id number]) Female 1965 11/25/2022 12:44 PM - Radiology, [place] In Impression IMPRESSION: No metastatic disease in the abdomen and pelvis. Glue Bone Crusher: RHIANNNO Transcribe Date/Time: Mesfin 26 2023 12:23P Dictated by : BLAYNE JONES MD [...] corpus callosum or elsewhere in the brain. Glue Bone Crusher: RHIANNON Transcribe Date/Time: Dec 07 2022 11:17A [...] glioma, she referred the patient to our [facility] for evaluation, On 11/02/22, she had a biopsy by Dr. Jovel, neurosurgereon at the [facility]. The pathology is basically non diagnostic. Symptomatically [...] not astroke and referred her to the [facility] and had a biopsy by Dr. Feliz [...] syndrome. Differential diagnosis from a publication by AJIrving: Lipoma Glioma: low grade or high grade Lymphoma Juvenile Pilocytic Astrocytoma Demyelinating Diseases -Multiple Sclerosis Progressive Multifocal Leukoencephalopathy Marchiafava-Bignami Disease - unlikely S she does no drink ETOH in large amounts. Infarction - see above. Arteriovenous Malformations - had a CTA by Dr. Pro and showed no abnormalities. Trauma Susac Syndrome (SS) (From [place] [employer] (excerpt/verbatim). SS is a [...] Splenium of the Corpus Callosum. Cureus 13(11): e58340. doi:10.7759/cureus.27218), 2-Gissell-Gissell Paul eta al. Clinical features of acute corpus callosum infarction patients. Int J Clin Exp Pathol. 2014; 7(8): 3161-2107. 3-Damari Guerrero. 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 Brain Behav. 2019 Nov;9(11): y56938. 4-Conrado Cook and Holly Ley. 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 BMJ Case Rep. 2014; 2014: [id number]. 5-Fadi Miranda et al. Alexia Without Agraphia: [...] I would recommend. I spoke with Dr. Harlan Lozano, neurology staff for primary neurology service, [...] the MRI is done at a different [facility], or the same day if the MRI is done at . 2-Referral to neuroimmunology for opinion whether the lesion in the SCC is from an autoimmune/immune/paraneoplastic pathology, and recommendations on further work up. Dr. Lozano is a neuro cra and was the neurology staff while admitted [...] Pro from cerebrovascular/stroke neurology. 6-Follow with her statistical engineer for her CAD, S/p coronary artery stents. 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 I spent a total of 45 minutes on the date of the service which included preparing to see the patient, at least 50% of pity-zk-ywzu patient care, completing clinical documentation, obtaining and/or reviewing separately obtained history, performing a medically appropriate examination, counseling and educating the patient/family/caregiver, ordering medications, tests, or procedures, communicating with other HCPs (not separately reported), independently interpreting results (not separately reported), communicating results to the patient/family/caregiver and care coordination (not separately reported). Codie Soto MD Staff Neuro-Oncologist [facility], [place], [place] CC: CC -Carlos Jovel MD, Neurosurgery, [facility] Tumor [facility] Neuro[facility]On[facility], [facility], [facility] CC: Rad Pro DO, Vascular Neurology, [facility] CC: Dr. Solis Cool DO, PCP, [address] [place] [address] [address], [facility] [address], ; -Harlan Lozano MD, Neurology/Neuroimmunology, [facility] -David Rios MD, Neuro-ophthalmology, [facility] -Americo Haney DO, Infectious Disease, [facility] documented in this encounterLanc[facility]08-23-2023 Miscellaneous Notes* Telephone Encounter - Lisa Paredes - 12/23/2022 9:25 AM EDT PATIENT INFORMATION Record ID: [id number] Patient [facility]: [facility]: [facility] [place]: Neurological [place] Attending: [facility]: Neurological [place] INSTRUCTIONS MA to remind patient of next upcoming appointment date, time, location All Clear All Clear All Clear All Clear SURVEY INFORMATION Medical/Nurse Online Media Director: Lisa Paredes 1. Your discharge instructions are important in guiding you through the recovery process. Is there anything I could help you clarify on your discharge instructions? (Standard Question) No 2. Do you have a follow up appointment related to your hospital stay scheduled within the next 30 days? (Standard Question) Yes MA/ Notes: 12/24/22 01/12/23 x2 3. Have you [...] symptoms? (Standard Question) No documented in this encounterLancaster [facility] Hospital08-18-2023 Miscellaneous Notes* Telephone Encounter - Harlan Lozano MD - 12/18/2022 4:52 PM EDT Results for CSF Tourtellote panel cannot be imported into [employer] due technical problems. Results were read by Dr. Malloy IgG Index: 0.54 (0-0.61) IgG Synthesis Rate 1.7 mg/day ref (0-3.0) Harlan Lozano MD PhD documented in this encounterLancaster [facility] Hospital08-15-2023 History of Present illness Narrative* David Rios [...] which included preparing to see the patient, kubi-qq-bckb patient care, completing clinical documentation, obtaining and/or [...] answered. David Rios MD documented in this encounterLancaster [facility] Hospital08-09-2023 History of Present illness Narrative* Codie Soto MD - 12/09/2022 10:16 AM EDT Images from the original note were not included. [facility] Clinic Visit Follow up. Referring provider: ANGELY -Carlos Jovel MD, Neurosurgery, [facility], [facility], [facility] Diagnosis: query brain tumor, glioma of [...] my review). On 06/08/22, she sima to for the above issues. She saw cerebrovascular/stroke neurologist Dr. Pro and did extensive work up for possible CVA. On 10/21/22, Dr. Pro based on the MRI from that showed alight progression of the lesion, with the concern that this is a glioma referred the patient to our [facility] for evaluation. Dr. Feliz performed a biopsy [...] Patient is a 57 y/o female from [place], [place] with PMH CAD (s/p stent placement- [...] epic review 57 y/o female admitted to [facility] due to confusion and aphasia on 06/08/22. [...] follow-up is recommended. Heide Dumont, RN, BSN Popcorn Vendor [facility] [...] I would recommend. I spoke with Dr. Harlan Lozano, neurology staff for primary neurology service, [...] Coronary artery disease Coronary artery disease involving guidiville coronary artery of guidiville heart without angina pectoris 11/02/2022 Gastroesophageal reflux [...] [employer] Used withpermission. References: 1. Nabeel MF, Nabeel SE, Perez [place]. Mini-Mental State: a practical method for grading [...] in patients with probable Alzheimer's disease. Neurology. 1992;42:2461-5928. GENERAL EXAM: General appearance: Well appearing, alert, [...] - 81 Final Pathology: \\\ SURGICAL PATHOLOGY: [id number] Order: [id number] Collected 11/04/2022 11:13 AM Status: Final result [...] been determined by the performing laboratory within [facility] s Psychiatric Pathology and Laboratory Medicine [place] ([facility], [facility], [facility], [facility], [facility], or [facility]) in a manner consistent with [...] permanent in A2. Gross examination performed at [address] 11/04/2022 B. BRAIN BIOPSY Received fresh labeled right corpus callosum lesion are multiple fragments of white-goodson tissue aggregating to 0.6 x 0.5 x 0.2 cm. The specimen is submitted entirely in cassette B1. Gross examination performed at [place] [id number] JXM/DANIELE 11/04/22 12:21 PM Intraoperative Diagnosis A. BRAIN BIOPSY FS A1: Right corpus callosum lesion, slightly hypercellular 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 tissue with rare atypical cells. (Dr. Narvaez). 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 Resulting Agency CCM Specimen Collected: 11/04/22 11:13 AM EDT Last Resulted: 11/09/22 1:09 PM EDT Order Details View Encounter Lab and Collection Details Routing Result History View All Conversations on this Encounter Scans on Order [id number] Document on 11/09/2022 1:09 PM by Anusha Thomas MD Result Care Coordination Patient Communication 11/14/2022 1:09 PM Release Now Not seen Back to Top FISH FOR EGFR: [id number] Order: [id number] - Reflex for Order [id number] Collected 11/04/2022 11:22 AM Status: Final result Visible to patient: Yes (seen) Dx: Glioma (HCC) 0 Result Notes Component FISH FOR EGFR FISH for EGFR Laboratory Accession Number: [id number] Case: [id number] Block: B1 Sample Type: FFPET Sample Description: [...] and its performance characteristics determined by the [facility]'s [facility] Pathology and Laboratory Medicine [place] ([facility]). It has not been cleared or approved by the FDA. [facility] is regulated under CLIA as qualified to perform high- complexity testing. This test is used for clinical purposes. It should not be regarded as investigational or for research. Interpretation performed at [facility], [address] [place], [place] [id number]. CLIA Number: [id number] As reviewed by Mayra Louis MD, PhD [...] of specimen(s): Clinical History SURGICAL PATHOLOGY (Order [id number]) FISH FOR EGFR (Order [id number]) - Reflex for Order [id number] Patient Release Status: This result is scheduled for release on 11/14/2022 1:09 PM. Routing History Priority Sent On From To Message Type 11/09/2022 3:26 PM Lab, Background User Anusha Thomas MD Results 11/09/2022 1:09 PM Lab, Background User Carlos Jovel MD Results 11/09/2022 1:09 PM Lab, Background User Harlan Guy MD Results View Smart[employer] Info SURGICAL PATHOLOGY (Order #[id number]) on 11/04/22 CAP/CLIA/Joint Commission Regulatory Result Report SURGICAL PATHOLOGY (Order #[id number]) on 11/04/22 SURGICAL PATHOLOGY: Patient Communication 11/14/2022 1:09 PM Release Now Not seen Imaging: Results CT CHEST W IVCON (Acc#[id number]) (Order [id number]) Patient Info Patient Name Sex Josie Landis ([id number]) Female 1965 Imaging Findings Finding Acuity Linked [...] exam could be obtained in 12 months Glue Bone Crusher: PSCB Transcribe Date/Time: Nov 25 2022 5:31P Dictated by : TOMAS DEVINE MD This examination was interpreted and the report reviewed and electronically signed by: TOMAS DEVINE MD on Nov 25 2022 5:38PM EST Results-Findings * * *Final Report* * * DATE OF EXAM: Nov 25 2022 12:18PM [facility] [place] 0539 - CT CHEST W IVCON / [...] abdomen and pelvis will be reported separately. Oil Field Worker (topogram) images: No additional findings. Result History CT CHEST W IVCON (Order #[id number]) on 11/25/2022 - Order Result History Report Result Information Status Provider Status Actionable Final result (11/25/2022 5:41 PM) Reviewed Exam Performed Date and Time 11/25/2022 12:18 PM [facility] Agency DIVISION OF RADIOLOGY [address] [facility] [address] ABD/PEL W IVCON (Acc#[id number]) (Order [id number]) Patient Info Patient Name Sex Josie Landis ([id number]) Female 1965 11/25/2022 12:44 PM - Radiology, Oru In Impression IMPRESSION: No metastatic disease in the abdomen and pelvis. Glue Bone Crusher: PSCB Transcribe Date/Time: Nov 25 2022 12:23P Dictated by : BLAYNE JONES MD This examination was interpreted and the report reviewed and electronically signed by: BLAYNE JONES MD on Nov 25 2022 12:42PM EST MRI Report MRI BRAIN WO/W IVCON Exam End: 12/07/2022 9:36 AM (Final result) Narrative: * * *Final Report* * * DATE OF EXAM: Dec 07 2022 9:36AM [facility] 0295 - MRI BRAIN WO/W IVCON / [...] corpus callosum or elsewhere in the brain. Glue Bone Crusher: [facility] Transcribe Date/Time: Dec 07 2022 11:17A Dictated [...] glioma, she referred the patient to our [facility] for evaluation, On 11/02/22, she had a biopsy by Dr. Jovel, neurosurgereon at the [facility]. The pathology is basically non diagnostic. Symptomatically [...] not astroke and referred her to the [facility] and had a biopsy by Dr. Feliz [...] no abnormalities. Trauma Susac Syndrome (SS) (From [place] [employer] (excerpt/verbatim). SS is a [...] Splenium of the Corpus Callosum. Cureus 13(11): r16609. doi:10.7759/cureus.91628), 2-Gissell-Gissell Paul eta al. Clinical features of acute corpus callosum infarction patients. Int J Clin Exp Pathol. 2014; 7(8): 5743-6612. 3-Damari Guerrero. 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 Brain Behav. 2019 Nov;9(11): g36243. 4-Conrado Cook and Holly Ley. 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 BMJ Case Rep. 2014; 2014: [id number]. 5-Fadi Miranda et al. Alexia Without Agraphia: [...] I would recommend. I spoke with Dr. Harlan Lozano, neurology staff for primary neurology service, [...] radiology protocol, and if Ok with her statistical engineer. 6-CSF orders entered. 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 Codie Soto MD Staff Neuro-Oncologist [facility] [place], [place] CC: CC -Carlos Jovel MD, Neurosurgery, R [facility], [facility] CC: Rad Pro, \, Vascular Neurology, [facility] CC: Dr. Solis Cool, [address] [facility] [address] [facility] [address] * Jenni Strong MA - 12/09/2022 10:04 AM EDT y documented [facility] Nurse Note* Jenni Strong MA - 12/09/2022 10:06 AM EDT Additional intake questions: Has the patient had fever, nausea, vomiting, diarrhea, constipation, fatigue for > 1 week? Yes, fatigue and Provider Notified Does the patient have a decreased appetite? No Does patient want to see a Hot Top Liner? No (yes to any of above refer patient to schedulers for dietitian appointment) ) Does patient have any new or increased numbness or tingling of extremities? No Is patient interested in fertility information? No Does patient need any prescription refills? No Does patient have an advanced directive in place? No, Patient referred to [facility] Center documented in [facility] History of Present illness Narrative* Leonela Cary [...] 2022 TIME: 8:36 AM documented in this encounterLanc[facility]08-07-2023 Miscellaneous Notes* Result Encounter Note - Codie Soto MD - 12/07/2022 8:30 AM EDT I have reviewed this test results, MRI brain 12/07/22, and I will go over the results with the patient at the upcoming appointment. Codie Soto MD documented in this encounterLanc[facility]07-28-2023 History of Present illness Narrative* Rad Pro DO - 11/27/2022 12:37 PM EDT [facility] Established Visit Consultation is requested by: No referring provider defined for this encounter. PCP: Dr. 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 Hx from initial visit 06/08/2022 - with c/o increasing confusion and aphasia. On [...] Coronary artery disease Coronary artery disease involving guidiville coronary artery of guidiville heart without angina pectoris 11/02/2022 Gastroesophageal reflux [...] which included preparing to see the patient, gspe-oj-xykw patient care, completing clinical documentation, obtaining and/or reviewing separately obtained history, performing a medically appropriate examination, counseling and educating the patient/family/caregiver, and independently interpreting results (not separately reported) F/u in 3-4 months SIGNATURE Rad Pro DO Vascular Neurology CC Dr. Solis Cool DO [address] [facility] [address] [facility] [address] documented in this encounterLanc[facility]07-26-2023 History of Present illness Narrative* Pamela Vuong RT(R) - 11/25/2022 11:20 AM EDT Radiology [...] Exam(s) Completed: Chest Abdomen Pelvis SIGNATURE: RT Octavio(R) PATIENT NAME: Josie Landis DATE: November 25, 2022 TIME: 2:04 PM documented in this encounterLanc[facility]07-18-2023 History of Present illness Narrative* Codie Soto MD - 11/17/2022 10:31 AM EDT Images from the original note were not included. [facility] New Patient Consultation Referring provider: ANGELY -Carlos Jovel MD, Neurosurgery, [facility], [facility], [facility] Diagnosis: query brain tumor, glioma of [...] my review). On 06/08/22, she sima to for the above issues. She saw cerebrovascular/stroke neurologist Dr. Pro and did extensive work up for possible CVA. On 10/21/22, Dr. Pro based on the MRI from that showed alight progression of the lesion, with the concern that this is a glioma referred the patient to our [facility] for evaluation. Dr. Feliz performed a biopsy [...] Patient is a 57 y/o female from [place], [place] with PMH CAD (s/p stent placement- [...] epic review 57 y/o female admitted to [facility] due to confusion and aphasia on 06/08/22. [...] follow-up is recommended. Heide Dumont, RN, BSN Popcorn Vendor [facility] [...] Coronary artery disease Coronary artery disease involving guidiville coronary artery of guidiville heart without angina pectoris 11/02/2022 Gastroesophageal reflux [...] 9.5 9.0 Final Pathology: \\\ SURGICAL PATHOLOGY: [id number] Order: [id number] Collected 11/04/2022 11:13 AM Status: Final result [...] been determined by the performing laboratory within [facility] s [facility] [place] ([facility], [facility], [facility], [facility], [facility], or [facility]) in a manner consistent with [...] permanent in A2. Gross examination performed at [address] 11/04/2022 B. BRAIN BIOPSY Received fresh labeled right corpus callosum lesion are multiple fragments of white-goodson tissue aggregating to 0.6 x 0.5 x 0.2 cm. The specimen is submitted entirely in cassette B1. [place] [address] JXM/DANIELE 11/04/22 12:21 PM Intraoperative Diagnosis A. BRAIN BIOPSY FS A1: Right corpus callosum lesion, slightly hypercellular 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 tissue with rare atypical cells. (Dr. Narvaez). 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 Resulting Agency CCM Specimen Collected: 11/04/22 11:13 AM EDT Last Resulted: 11/09/22 1:09 PM EDT Order Details View Encounter Lab and Collection Details Routing Result History View All Conversations on this Encounter Scans on Order [id number] Document on 11/09/2022 1:09 PM by Anusha Thomas MD Result Care Coordination Patient Communication 11/14/2022 1:09 PM Release Now Not seen Back to Top FISH FOR EGFR: [id number] Order: [id number] - Reflex for Order [id number] Collected 11/04/2022 11:22 AM Status: Final result Visible to patient: Yes (seen) Dx: Glioma (HCC) 0 Result Notes Component FISH FOR EGFR FISH for EGFR Laboratory Accession Number: [id number] Case: [id number] Block: B1 Sample Type: FFPET Sample Description: [...] and its performance characteristics determined by the [facility] [place] ([facility]). It has not been cleared or approved by the FDA. [facility] is regulated under CLIA as qualified to perform high- complexity testing. This test is used for clinical purposes. It should not be regarded as investigational or for research. Interpretation performed at [facility], [address] [place] [address]. CLIA Number: [id number] As reviewed by Mayra Louis MD, PhD [...] of specimen(s): Clinical History SURGICAL PATHOLOGY (Order [id number]) FISH FOR EGFR (Order [id number]) - Reflex for Order [id number] Patient Release Status: This result is scheduled for release on 11/14/2022 1:09 PM. Routing History Priority Sent On From To Message Type 11/09/2022 3:26 PM Lab, Background User Anusha Thomas MD Results 11/09/2022 1:09 PM Lab, Background User Carlos Jovel MD Results 11/09/2022 1:09 PM Lab, Background User Harlan Guy MD Results View [employer] Info SURGICAL PATHOLOGY (Order #[id number]) on 11/04/22 CAP/CLIA/Joint Commission Regulatory Result Report SURGICAL PATHOLOGY (Order #[id number]) on 11/04/22 SURGICAL PATHOLOGY: Patient Communication 11/14/2022 1:09 PM Release Now Not seen Imaging: MRI Report MRI BRAIN LOCALIZATION WO/W IVCON Exam End: 11/02/2022 12:46 PM (Final result) Narrative: * * *Final Report* * * DATE OF EXAM: Nov 02 2022 12:46PM [facility] 0291 - MRI BRAIN LOCAL WO/W IVCON [...] of the corpus callosum concerning for glioma. Glue Bone Crusher: RHIANNON Transcribe Date/Time: Nov 02 2022 1:10P Dictated by : SHANTANU PIERSON MD This examination was interpreted and the report reviewed and electronically signed by: KERRI HOTY DO on Nov 02 2022 2:08PM EST [...] glioma, she referred the patient to our [facility] for evaluation, On 11/02/22, she had a biopsy by Dr. Jovel, neurosurgereon at the [facility]. The pathology is basically non diagnostic. Symptomatically [...] reports of this manifestation as published by M Marisabel et al (1) where they described a [...] not astroke and referred her to the [facility] and had a biopsy by Dr. Feliz on 7/5/23, and as I said the pathology is [...] no abnormalities. Trauma Susac Syndrome (SS) (From [place] [employer] (excerpt/verbatim). SS is a [...] Splenium of the Corpus Callosum. Cureus 13(11): w96408. doi:10.7759/cureus.26044), 2-Graham Paul eta al. Clinical features of acute corpus callosum infarction patients. Int J Clin Exp Pathol. 2014; 7(8): 9095-3671. 3-Damari Guerrero. 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 Brain Behav. 2019 Nov;9(11): m97915. 4-Conrado Cook and Holly Ley. 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 BMJ Case Rep. 2014; 2014: [id number]. 5-Fadi Miranda et al. Alexia Without Agraphia: [...] radiology protocol, and if Ok with her statistical engineer. 6-CSF orders entered. 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 For now, as she had episodes of [...] of the above, they had questions which Madahvi I answered to their satisfaction and agreed with these recommendations and had no further questions or concerns for the moment, but I encourage them to call the [facility] with any questions or concerns. I spent a total of 45 minutes on the date of the service which included preparing to see the patient, at least 50% of drsj-gj-rpdo patient care, completing clinical documentation, obtaining and/or reviewing separately obtained history, performing a medically appropriate examination, counseling and educating the patient/family/caregiver, ordering medications, tests, or procedures, communicating with other HCPs (not separately reported), independently interpreting results (not separately reported), communicating results to the patient/family/caregiver and care coordination (not separately reported). Codie Soto MD Staff Neuro-Oncologist [facility], [place], [place] CC: CC -Carlos Jovel MD, Neurosurgery, [facility], [facility], [facility] CC: Rad Pro, DO\, Vascular Neurology, [facility] CC: Dr. Solis Cool, DO [address] [facility] [address] documented in this encounterLanc[facility]07-17-2023 Miscellaneous Notes* Telephone Encounter - Christine Aguayo LSW - 11/16/2022 11:08 AM EDT Social Work Problem Referral Note INFORMATION/REFERRAL : Josie Landis 57 year old female was referred by physician - Dr. Huizar to [facility] Social Work for the following reason(s): social security disability PERSONS INTERVIEWED: patient INTERVENTION: Phone Contact Affect/Mood: The patient is noted as appropriate IDENTIFIED PROBLEMS/NEEDS: Disability Intervention/Referral to be provided:Consultation only provided IMPRESSION/PLAN: SW contacted pt via phone to introduce self and role. Pt shares that she works forthe [employer] office but has not been able to [...] able to go on short term and correction disability through her employment, but she will have to see if that is possible once she is given a diagnosis. Pt expresses that she has been experiencing memory difficulties and she has support from her spouse and daughter. SW sent a [employer] message with contact information for pt and family to have for future needs. Pt had no additional questions at this time. Pt and family will reach out when needed. F/U APPOINTMENT: PRN Assigned SW listed in Care Team tab: Yes SHELDON Martinez documented in this [facility]07-13-[facility]23 History of Present illness Narrative* Codie Soto [...] appointment. Codie Soto MD documented in this encounterLanc[facility]07-13-2023 History of Present illness Narrative* Antonia Weiss [...] with any questions or concerns. Antonia Weiss BACK HOE OPERATOR Popcorn Vendor [phone]. documented in this encounterLancaster [facility]07-13-2023 History of Present illness Narrative* Codie Soto MD - 11/12/2022 10:45 AM EDT Images from the original note were not included. Brain Tumor Neuro-Oncology Center New Patient Consultation Referring provider: ANGELY -Carlos Jovel MD, Neurosurgery, [facility], [facility], [facility] Diagnosis: query brain tumor, glioma of [...] my review). On 06/08/22, she sima to for the above issues. She saw cerebrovascular/stroke neurologist Dr. Pro and did extensive work up for possible CVA. On 10/21/22, Dr. Pro based on the MRI from that showed alight progression of the lesion, with the concern that this is a glioma referred the patient to our [facility] for evaluation. Dr. Feliz performed a biopsy [...] Patient is a 57 y/o female from [place], [place] with PMH CAD (s/p stent placement- [...] epic review 57 y/o female admitted to [facility] due to confusion and aphasia on 06/08/22. [...] follow-up is recommended. Heide Dumont, RN, BSN Popcorn Vendor [facility] Last Chemo: N/A Current Steroids dose: N/A Current AED Dose: N/A Therapy Status Data Form Past Medical History: PAST MEDICAL HISTORY Diagnosis Date Asthma due to seasonal allergies 11/02/2022 Coronary artery disease Coronary artery disease involving guidiville coronary artery of guidiville heart without angina pectoris 11/02/2022 Gastroesophageal reflux [...] 9.5 9.0 Final Pathology: \\\ SURGICAL PATHOLOGY: [id number] Order: [id number] Collected 11/04/2022 11:13 AM Status: Final result [...] been determined by the performing laboratory within [facility] s Psychiatric Pathology and Laboratory Medicine [place] ([facility], [facility], [facility], [facility], [facility], or [facility]) in a manner consistent with [...] permanent in A2. Gross examination performed at [address] 11/04/2022 B. BRAIN BIOPSY Received fresh labeled right corpus callosum lesion are multiple fragments of white-goodson tissue aggregating to 0.6 x 0.5 x 0.2 cm. The specimen is submitted entirely in cassette B1. Gross examination performed at [place] [id number] JXM/DANIELE 11/04/22 12:21 PM Intraoperative Diagnosis A. BRAIN BIOPSY FS A1: Right corpus callosum lesion, slightly hypercellular 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 tissue with rare atypical cells. (Dr. Narvaez). Intraoperative diagnosis performed at [place] [id number] 11/04/2022 Clinical History Pre-op diagnosis: Glioma (HCC) [C71.9] Performing Lab Diagnostic interpretation performed at [facility], [address] [place], [place] [address] [facility]# [id number] Machine Group Leader: Jasen Rivera M.D. Resulting Agency CCM Specimen Collected: 11/04/22 11:13 AM EDT Last Resulted: 11/09/22 1:09 PM EDT Order Details View Encounter Lab and Collection Details Routing Result History View All Conversations on this Encounter Scans on Order [id number] Document on 11/09/2022 1:09 PM by Anusha Thomas MD Result Care Coordination Patient Communication 11/14/2022 1:09 PM Release Now Not seen Back to Top FISH FOR EGFR: [id number] Order: [id number] - Reflex for Order [id number] Collected 11/04/2022 11:22 AM Status: Final result Visible to patient: Yes (seen) Dx: Glioma (HCC) 0 Result Notes Component FISH FOR EGFR FISH for EGFR Laboratory Accession Number: [id number] Case: [id number] Block: B1 Sample Type: FFPET Sample Description: [...] and its performance characteristics determined by the [facility]'s [facility] Pathology and Laboratory Medicine [place] ([facility]). It has not been cleared or approved by the FDA. [facility] is regulated under CLIA as qualified to perform high- complexity testing. This test is used for clinical purposes. It should not be regarded as investigational or for research. Interpretation performed at [facility], [address] [place] [address]. CLIA Number: [id number] As reviewed by Mayra Louis MD, PhD [...] of specimen(s): Clinical History SURGICAL PATHOLOGY (Order [id number]) FISH FOR EGFR (Order [id number]) - Reflex for Order [id number] Patient Release Status: This result is scheduled for release on 11/14/2022 1:09 PM. Routing History Priority Sent On From To Message Type 11/09/2022 3:26 PM Lab, Background User Anusha Thomas MD Results 11/09/2022 1:09 PM Lab, Background User Carlos Jovel MD Results 11/09/2022 1:09 PM Lab, Background User Harlan Guy MD Results View Smartlink Info SURGICAL PATHOLOGY (Order #[id number]) on 11/04/22 CAP/CLIA/Joint Commission Regulatory Result Report SURGICAL PATHOLOGY (Order #[id number]) on 11/04/22 SURGICAL PATHOLOGY: Patient Communication 11/14/2022 [...] of the corpus callosum concerning for glioma. Glue Bone Crusher: RHIANNON Transcribe Date/Time: Nov 02 2022 1:10P [...] glioma, she referred the patient to our [facility] for evaluation, On 11/02/22, she had a biopsy by Dr. Jovel, neurosurgereon at the [facility]. The pathology is basically non diagnostic. Symptomatically [...] not astroke and referred her to the [facility] and had a biopsy by Dr. Feliz [...] no abnormalities. Trauma Susac Syndrome (SS) (From [place] [employer] (excerpt/verbatim). SS is a [...] Splenium of the Corpus Callosum. Cureus 13(11): z69907. doi:10.7759/cureus.83247), 2-Gissell-Gissell Paul eta al. Clinical features of acute corpus callosum infarction patients. Int J Clin Exp Pathol. 2014; 7(8): 6557-3571. 3-Damari Guerrero. 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 Brain Behav. 2019 Nov;9(11): u07427. 4-Conrado Cook and Holly Ley. 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 BMJ Case Rep. 2014; 2014: [id number]. 5-Fadi Miranda et al. 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 Her driving privileges to be resumed depending on her progress/entities found. In the end the patient and family verbalized understanding of the above, they had questions which Ibezrae I answered to their satisfaction and agreed with these recommendations and had no further questions or concerns for the moment, but I encourage them to call the [facility] with any questions or concerns. I spent a total of 91 minutes on the date of the service which included preparing to see the patient, at least 50% of qvrf-xr-adse patient care, completing clinical documentation, obtaining and/or reviewing separately obtained history, performing a medically appropriate examination, counseling and educating the patient/family/caregiver, ordering medications, tests, or procedures, communicating with other HCPs (not separately reported), independently interpreting results (not separately reported), communicating results to the patient/family/caregiver and care coordination (not separately reported). Codie Soto MD Staff Neuro-Oncologist [facility], [place], [place] CC: CC -Carlos Jovel MD, Neurosurgery, R [facility], [facility], [facility] CC: Rad Pro, DO\, Vascular Neurology, [facility] CC: Dr. Solis Cool, DO [address] [facility] [address] [facility] [address] documented in this encounterLancaster Municipal Hospital07-13-2023 Nurse Note* Janel Benson Ma - 11/12/2022 9:59 AM EDT Reviewed and confirmed with patient that there were no changes in the the nursing assessment and vitals that were completed on November 12, 2022 during previous provider appointment. Janel Benson Ma documented in this encounterLancaster Municipal Hospital07-13-2023 Nurse Note* Janel Benson Ma - 11/12/2022 9:54 AM EDT Additional intake questions: Has the patient had fever, nausea, vomiting, diarrhea, constipation, fatigue for > 1 week? No Does the patient have a decreased appetite? No Does patient want to see a Hot Top Liner? No (yes to any of above refer patient to schedulers for dietitian appointment) ) Does patient have any new or increased numbness or tingling of extremities? No Is patient interested in fertility information? No Does patient need any prescription refills? No Does patient have an advanced directive in place? No, Patient referred to [facility] documented in this encounterLancaster Municipal Hospital07-13-2023 History of Present illness Narrative* Heide Dumont RN - 11/12/2022 7:44 AM EDT Patient is a 57 y/o female from [place], [place] with PMH CAD (s/p stent placement- [...] epic review 57 y/o female admitted to [facility] due to confusion and aphasia on 06/08/22. [...] follow-up is recommended. Heide Dumont RN, BSN Popcorn Vendor [facility] documented in this encounterLancaster Municipal Hospital07-07-2023 Miscellaneous Notes* Telephone Encounter - Antonia Weiss [...] return call ? Yes documented in this encounterLancaster Municipal Hospital07-03-2023 History of Present illness Narrative* Antonia Weiss [...] Thrombosis (DVT) -FAQ's about Surgical Site Infections IRB#[id number] Genetic and Molecular Analysis of Tumors of [...] to the patient. Antonia Weiss RN BSN [employer] Vendor [phone]. documented in this encounterLancaster Municipal Hospital07-03-2023 History of Present illness Narrative* Sandrine Gooden [...] IV SITE APPEARANCE: Clean,Dry and Intact SIGNATURE: Sandrine Gooden RN PATIENT NAME: Josie Landis DATE: November 02, 2022 TIME: 12:04 PM documented in this encounterLancaster Municipal Hospital07-03-2023 Instructions* Patient Instructions* Allison Shankar PA-C - 11/02/2022 11:00 AM EDT PATIENT PREOPERATIVE INSTRUCTIONS Carlos Jovel MD has scheduled you for your procedure at this surgery center: [facility] Scheduling Office: [phone] --[address] [place] [address]. Please read below carefully for your personalized [...] Procedures: - YOU MUST HAVE A RESPONSIBLE ORGAN TEACHER TAKE YOU HOME. A RETAIL MERCHANDISER OR CASE MANAGEMENT ASSISTANT CANNOT BE MADE A RESPONSIBLE ORGAN TEACHER. - We recommend that a responsible person [...] call the Wednesday before. Your surgeon s burial vault maker will tell you what time to call the office. - If you have not reached the departmental burial vault maker by 5 P.M., call [phone] after 5 P.M. the day before your surgery. Please be aware that emergency situations arise, which may delay or change your surgical time. If this happens, we will notify you as soon as possible and regret any inconvenience. If you already have an Advance Directive, please fax a copy to [phone] or email to for it to be [...] day. Allison Shankar PA-C documented in this encounterLancaster Municipal Hospital07-03-2023 History and physical note * Allison Shankar [...] to Seasonal Allergies Coronary Artery Disease Involving [place] Coronary Artery of [place] Heart Without Angina Pectoris Gastroesophageal Reflux Disease [...] Coronary artery disease Coronary artery disease involving guid[place]le coronary artery of guid[place] heart without angina pectoris 11/02/2022 Gastroesophageal reflux [...] to seasonal allergies Cardiovascular: Negative for Recent LA, Angina, Arrhythmia, Chest Pain, CHF, PVD, Valvular Heart Disease, DVT/PE +HTN, +HLD, +CAD - 3 stents total, on Plavix and ASA 81mg, [facility] GI: Negative for Nausea, Vomiting, Abdominal pain, Liver disease, ETOH > 2 drinks / day +GERD : No history of dysuria, frequency or incontinence,, stones or chronic kidney disease SEAFOOD HARVESTER: Negative for abnormal vaginal bleeding, abnormal vaginal [...] cough or wheezing Coronary artery disease involving guid[place] coronary artery of [place] heart without angina pectoris -s/p stents x 2 in 2018 -s/p re-stenting of previously stented area in 05/2022 -follows with external statistical engineer at [facility] -denies CP and SOB -echo 10/22/22 shows [...] 2022 TIME: 10:22 AM documented in this encounterLancaster Municipal Hospital07-03-2023 Nurse Note* Jenni Strong MA - 11/02/2022 9:10 AM EDT Assessment interrupted by medical provider, unable to complete nursing assessment. documented in this encounterLancaster Municipal Hospital06-27-2023 Miscellaneous Notes* Telephone Encounter - Pamela Westbrook - 10/27/2022 3:53 PM EDT Images from the original note were not included. Rec'd Echo Transesophageal LUKE report from [facility]. documented in this encounterLancaster Municipal Hospital06-27-2023 History of Present illness Narrative* Carlos Jovel MD - 10/27/2022 12:00 PM EDT Images from the original note were not included. 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 Landis is a pleasant 57yo lady with a history of being admitted to with increasing confusion and aphasia on 06/08/2022 [...] DATE OF EXAM: Sep 25 2022 10:42AM MIKAL 0295 - MRI BRAIN WO/W IVCON [...] studies, would be worrisome for a glioma. Glue Bone Crusher: RHIANNON Transcribe Date/Time: Sep 25 2022 12:04P Dictated by : ELIDIA CERVANTES MD This examination was interpreted and the report reviewed and electronically signed by: ELIDIA CERVANTES MD on Sep 25 2022 12:18PM EST Data Review: Personal review of medical records: I reviewed the [facility] chart. Personal review of image, tracing or [...] No Change Instructions: Continue present activity Physician hyue-uq-wrkc time was 30 minutes with > 50% devoted to counseling or co-ordination of care. Approximately 30 minutes were spent reviewing medical records. No resident was available to participate in this visit. I saw and evaluated the patient. I reviewedthe fellow 's note and agree with findings and plan as written. Carlos Jovel MD 11 AM 10/27/2022 [facility] documented in this encounterLancaster Municipal Hospital06-27-2023 Nurse Note* Jenni Strong MA - 10/27/2022 11:41 AM EDT Additional intake questions: Has the patient had fever, nausea, vomiting, diarrhea, constipation, fatigue for > 1 week? Yes, nausea, constipation (day of last BM a week ago), fatigue, and Provider Notified Does the patient have a decreased appetite? No Does patient want to see a Hot Top Liner? No (yes to any of above refer patient to schedulers for dietitian appointment) ) Does patient have any new or increased numbness or tingling of extremities? No Is patient interested in fertility information? No Does patient need any prescription refills? No Does patient have an advanced directive in place? No, Patient referred to [facility] documented in this encounterLancaster Municipal Hospital06-21-2023 Miscellaneous Notes* Telephone Encounter - Clair Bahena APRN.CNP - 10/21/2022 11:27 AM EDT Time Frame: JOSE, within 1 week Provider: Intra-axial neurosurgeon Referring: Rad Pro DO Dx: Glioma Patient: Josie Landis Address: Josie Landis [id number] [place] [id number] Per Triage: Josie Landis is a 57 year old [...] suspected glioma corpus callosum documented in this encounterLancaster Municipal Hospital06-21-2023 Miscellaneous Notes* Telephone Encounter - Rad Pro [...] Pro DO Vascular Neurology documented in this encounterLancaster Municipal Hospital06-02-2023 History of Present illness Narrative* Ana Brarain Pss - 10/02/2022 10:56 AM EDT POPULATION HEALTH NAVIGATION OUTREACH Action/ Patient Outreach: Left voicemail for patient to call back to schedule in RST. (please see Epic order dated for (08/25/2022). Any agent can [...] DEPRESSION ASSESSMENT Never done Navigation Signature: Ana Chavez Pss October 02, 2022 10:56 AM documented in this encounterLancaster Municipal Hospital05-26-2023 History of Present illness Narrative* David Justice [...] 2022 TIME: 10:12 AM documented in this encounterLancaster Municipal Hospital04-25-2023 History of Present illness Narrative* Rad Pro DO - 08/25/2022 12:06 PM EDT CEREBROVASCULAR CENTER Established Visit Consultation is requested by: No referring provider defined for this encounter. PCP: Dr. 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 Hx from initial visit 06/08/2022 - with c/o increasing confusion and aphasia. On [...] and glucose with primary care provider with correction goals as above Counseled patient on signs and symptoms of stroke if develops them in the future, seek medical attention immediately by calling 01-01-1 I spent a total of 45 minutes on the date of service which included preparing to see the patient, idpy-kt-enmy patient care, completing clinical documentation, obtaining and/or reviewing separately obtained history, performing a medically appropriate examination, counseling and educating the patient/family/caregiver, and independently interpreting results (not separately reported) F/u in 3 months SIGNATURE Rad Pro DO Vascular Neurology CC Dr. Solis Cool DO [address] [facility] [address] [facility] [address] documented in this encounterLancaster Municipal Hospital04-25-2023 Instructions* Patient Instructions* Rad Pro DO - 08/25/2022 12:05 PM EDT Regarding your visit at the [facility] we discussed the following: Impression: Ischemic stroke Plan: Continue aspirin 81mg daily Obtain LUKE Repeat MRI brain with and w/o contrast after August 2022 or later Continue your therapies, orders placed for speech, OT, PT F/u in 3 months documented in this encounterLancaster Municipal Hospital03-03-2023 History of Present illness Narrative* David Justice RT(Irving) - 07/03/2022 1:00 PM EST Radiology Service [...] 2022 TIME: 1:07 PM documented in this encounterLancaster Municipal Hospital02-27-2023 Miscellaneous Notes* Telephone Encounter - Pamelalisa Garcia [facility] - 06/29/2022 9:30 AM EST [facility] report into Spout. documented in this encounterLancaster Municipal Hospital02-24-2023 Miscellaneous Notes* Telephone Encounter - Gisela Crouch RN - 06/26/2022 11:[address] Pro spoke with patient - pt to repeat MRI brain with and w/o contrast. Patient would like to complete at [facility]. [facility] [phone] Spoke with Radha at [facility]. They will not obtain PA for MRI. Call placed to patient. Notified patient that MRI can not completed at . Provided patient [facility] scheduling number. Patient verbalized understanding and has no further questions at this time. GISELA Crouch RN documented in this encounterLancaster Municipal Hospital02-23-2023 Miscellaneous Notes* Telephone Encounter - Gisela Crouch RN - 06/25/2022 9:[address] Pro reviewed documents at patients new consult appointment on 06/24/2022. GISELA Crouch RN * Telephone Encounter - Pamela Westbrook - 06/25/2022 9:07 AM EST Rec'd discharge summary from [facility] imported into Spout. documented in this encounterLancaster Municipal Hospital02-22-2023 Instructions* Patient Instructions* Rad Pro DO - 06/24/2022 5:09 PM EST Regarding your visit at the [facility] Cerebrovascular Center we discussed the following: Impression: [...] and glucose with primary care provider with correction goals as above Counseled patient on signs and symptoms of stroke if develops them in the future, seek medical attention immediately by calling 9-1-1 -Additional stroke reduction measures and stroke warning signs are listed below. Please do not hesitate to call if you have any questions Rad Pro DO Vascular Neurology Stroke Signs and Symptoms: *Stroke [...] these signs, don't delay! Immediately call 911, orthe emergency medical services (EMS) number so an [...] or TIA who have evidence of atherosclerosis. 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 Diet - Limit carbohydrates, saturated and trans fats, sodium, sweets, and red meat - Consume fruits, vegetables, whole grains, low-fat dairy products, skinless poultry, nuts and legumes - Consider the DASH (Dietary Approaches to Stop Hypertension) diet (if you have hypertension) or the Mediterranean diet - more information: https://www.heart.org/en/healthy-living/healthy-eating/eat-smart/nutrition-basic s/zvv-wslz-peh-lifestyle-recommendations Smoking and Tobacco Use (including e-cigarettes) - [...] regimen, may be considered documented in this encounterLancaster Municipal Hospital02-22-2023 History of Present illness Narrative* Rad Pro DO - 06/24/2022 4:00 PM EST CEREBROVASCULAR CENTER Initial Visit Consultation is requested by: No referring provider defined for this encounter. PCP: Dr. 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 Date of Last Event: 06/08/2022 History of Event: 06/08/2022 - with c/o increasing confusion and aphasia. On [...] had a moment of right left confusion Vbuaqb-or-koqn and gpif-ie-vaxf without dysmetria bilaterally Gait: normal stance, normal [...] and glucose with primary care provider with correction goals as above Counseled patient on signs and symptoms of stroke if develops them in the future, seek medical attention immediately by calling 01-01-1 I spent a total of 70 minutes on the date of service which included preparing to see the patient, bzwt-uf-japy patient care, completing clinical documentation, obtaining and/or reviewing separately obtained history, performing a medically appropriate examination, counseling and educating the patient/family/caregiver, and independently interpreting results (not separately reported) F/u in 2-3 months If needs paperwork filled out for work we can do this SIGNATURE Rad Pro DO Vascular Neurology CC Dr. Solis Cool DO [address] [facility] [address] [facility] [address] documented in this encounterLancaster Municipal Hospital02-07-[address] Hawley June 09, 2022 11:20am Note Date/Time June 09, 2022 8 :21am [facility] Medical Records Department [address] [place] [address] Progress Note - Hospitalist 06/09/22 0817 MR#: [id number] Acct: [id number] Name: JOSIE LANDIS Rep #:[id number] : 1965 56 From: Blayne Hawley MD PCP: Dr. Solis Cool DO Status:AD M IN [facility] Subjective Subjective Patient is a 56-year-old [...] Sl. Cloudy, Urine pH 7.0, Ur Specific Stonewall 1.010, Urine Protein Negative, Urine Glucose (UA) [...] % (Auto) 67.1, Lymph % (Auto) 23.5, Fallon % (Auto) 6.7, Eos % (Auto) 2.1, [...] (MDRD) Non-Af 64, BUN/Creatinine Ratio 8.3 L, Jhawfhe56, Calcium 8.8, Troponin I High Sens 6 06/08/22 13:02: Magnesium 2.0 06/09/22 05:48: WBC 5.7, RBC 4.26, Hgb 12.7, Hct 39.4, MCV 92.5, MCH 29.8, MCHC 32.2, RDW Std Deviation 44.9 H, RDW Coeff of Benigno 13.5, Plt Count 163, MPV 9.5, Immature Gran % (Auto) 0.300, Neut % (Auto) 71.0 H, Lymph % (Auto) 20.1, Fallon % (Auto) 6.6, Eos % (Auto) 1.7, Baso % (Auto) 0.3, Absolute Neuts (auto) 4.1, Absolute Lymphs (auto) 1.15, Nucleated RBC % 0 06/09/22 05:48: Sodium 143, Potassium 3.9, Chloride 114 H, Carbon Dioxide 21.0, Anion Gap 8, BUN 8, Creatinine 0.82, Estim Creat Clear Calc 76.27, Est GFR (MDRD) Af Amer 94, Est GFR (MDRD) Non-Af 78, BUN/Creatinine Ratio 9.8 L, Bitqqux280 H, Calcium 8.3 L, Total Bilirubin 0.30, [...] Signed: Jacqueline Banegas MD at 18:59 EST , Physical Exam Narrative GENERAL: cooperative HEENT: [...] documentation,56 Minutes Charges/Coding Visit Charges Inpatient E&M: 17113 Subs Hosp L3 Reason for Visit Reason for Visit: Diagnoses Cerebral infarction, unspecified (06/08/22) 06/09/22 1120 <Electronically signed by Blayne Hawley MD> Cosigner Signature (if applicable): CC: ~ Signed Work Phone: 1(658) 980-843302-06-[address] Frias June 08, 2022 9:47pm Note Date/Time June 08, 2022 9 :48pm [facility] Medical Records Department [address] [place] [address] Telemedicine Confirmation Receipt 06/08/22 MR#: [id number] Acct: [id number] Name: JOSSIEJOSIE JESUS Rep #:[id number] : 1965 56 From: Carmen Frias MD PCP: Dr. Solis Cool, DO Status:AD M IN [facility] Tele[facility] has confirmed receipt of a request for visit. This document confirms receipt of the order initiating the consult. To find the results of the consultation, please view the patient's reports for the scanned Telemed Consult. Work Phone: 1(367) 190-868102-06-2023 History and physical note Author Dr. Frias June 08, 2022 8:56pm Note Date/Time June 08, 2022 6 :19pm [facility] Medical Records Department [address] [place] [address] H&P Exam - Hospitalist 06/08/22 1817 MR#: [id number] Acct: [id number] Name: JOSSIEJOSIE JESUS Rep #:[id number] : 1965 56 From: Carmen Frias MD PCP: Dr. Solis Cool, DO Status:AD M IN Location: [facility] HPI - General General Date of Admission: [...] cardiac enzymes who now represents to the [facility] ED on 06/08/22 with history of nearly [...] and neck with radiologist upon patient admission. [facility] Medical History Anxiety and depression Bipolar 1 [...] no focal deficits, strength preserved, finger-nose and ubyl-nd-nroe appropriate, equivocal Babinski, sensation intact. Psychiatric: Affect appears normal, no acute evidence of depressive or anxiety feelings. Results Lab / Micro Data Result Diagrams: 06/08/22 13:02 06/08/22 13:02 Labs: Laboratory Results - last 24 hr 06/08/22 12:59: POC Glucose 100 06/08/22 13:00: Urine Color Yellow, Urine Clarity Sl. Cloudy, Urine pH 7.0, Ur Specific Stonewall 1.010, Urine Protein Negative, Urine Glucose (UA) [...] % (Auto) 67.1, Lymph % (Auto) 23.5, Fallon % (Auto) 6.7, Eos % (Auto) 2.1, [...] cardiac enzymes who now represents to the [facility] ED on 06/08/22 with history of nearly [...] 75 minutes. Charges/Coding Visit Charges Inpatient E&M: 08226 Init Hosp L3 06/08/222055 <Electronically signed by Carmen Frias MD> Cosigner Signature (if applicable): CC: Dr. Carmen Frias MD; Dr. Solis Cool, DO~ Signed Work Phone: 1(110) 253-878502-06-2023 History and physical note Author Dr. Frias June 08, 2022 8:56pm Note Date/Time June 08, 2022 6 :19pm [facility] Medical Records Department [address] [place] [address] H&P Exam - Hospitalist 06/08/221816 MR#: [id number] Acct: [id number] Name: JOSIE LANDIS Rep #:[id number] : 1965 56 From: Carmen Frias MD PCP: Dr. Solis Cool, Status:AD M IN Location: [place] [address] HPI - General General Date of Admission: [...] cardiac enzymes who now represents to the [facility] ED on 06/08/22 with history of nearly [...] and neck with radiologist upon patient admission. [facility] Medical History Anxiety and depression Bipolar 1 [...] no focal deficits, strength preserved, finger-nose and iztx-hi-tvud appropriate, equivocal Babinski, sensation intact. Psychiatric: Affect appears normal, no acute evidence of depressive or anxiety feelings. Results Lab / Micro Data Result Diagrams: 06/08/22 13:02 06/08/22 13:02 Labs: Laboratory Results - last 24 hr 06/08/22 12:59: POC Glucose 100 06/08/22 13:00: Urine Color Yellow, Urine Clarity Sl. Cloudy, Urine pH 7.0, Ur Specific Stonewall 1.010, Urine Protein Negative, Urine Glucose (UA) [...] % (Auto) 67.1, Lymph % (Auto) 23.5, Fallon % (Auto) 6.7, Eos % (Auto) 2.1, [...] Signed: Garrett Green MD at 13:42 EST Reading Location ID and State: [address] [place] [address] Tel , Service support , Assessment & Plan Assessment/Plan (1) Acute [...] cardiac enzymes who now represents to the [facility] ED on 06/08/22 with history of nearly [...] 75 minutes. Charges/Coding Visit Charges Inpatient E&M: 22283 Init Hosp L3 06/08/222055 <Electronically signed by Carmen Frias MD> Cosigner Signature (if applicable): CC: Dr. Carmen Frias MD; Dr. Solis Cool, DO~ Signed Work Phone: 1(690) 428-736302-06-[address] River June 08, 2022 5:51pm Note Date/Time June 08, 2022 3 :12pm [facility] Medical Records Department [address] [place] [address] Emergency Department Summary 06/08/22 MR#: [id number] Acct: [id number] Name: JOSIE LANDIS Rep #:[id number] : 1965 56 From: Juan Daniel Dunham PCP: Dr. Solis Cool, DO Status:RE G ER Location: ED HPI History of Present Illness Chief Complaint: Confusion Informant: patient and spouse/S.O. Narrative Narrative: Patient presents referred in by her statistical engineer for [facility] for evaluation of confusion for the past [...] her medications. She brought her paperwork from [facility], reviewed she had a new left circumflex stent that was 80% blocked decreased on the left 5%. She had a previous right RCA stent that is 60% blocked. She has a 40% proximal LAD from review of her drawings. Reports is had previous MRI in the past. [facility] Medical History Anxiety and depression Bipolar [...] process. External documents reviewed: Discharge paperwork from [facility]. Test considered but not ordered:N/A ED course: [...] % (Auto) 67.1 Lymph % (Auto) 23.5 Fallon % (Auto) 6.7 Eos % (Auto) 2.1 [...] Sl. Cloudy Urine pH 7.0 Ur Specific Stonewall 1.010 Urine Protein Negative Urine Glucose (UA) [...] (Auto) Neut % (Auto) Lymph % (Auto) Fallon % (Auto) Eos % (Auto) Baso % [...] Color Urine Clarity Urine pH Ur Specific Stonewall Urine Protein Urine Glucose (UA) Urine Ketones [...] Green MD at 13:54 EST , ADDENDUM: 02/06/23 1401 IMPRESSION: Normal CT brain without intravenous [...] Hold Instructions: Resume on 06/10/22. With your statistical engineer regarding when to resume clonazepam 0.5 mg Tablet 0.5 mg PO BID pantoprazole 20 mg Tablet,Delayed Release (Dr/Ec) 20 mg PO DAILY carbamazepine [Tegretol] 200 mg Tablet 200 mg PO BID losartan 25 mg Tablet 25 mg PO DAILY Hold Instructions: Resume on 06/10/22. With your statistical engineer regarding when to resume topiramate [Topamax] 100 [...] Provider] - Disposition Disposition: Acute Care Hospital [facility] What to do if you have Problems For any increased pain, shortness of breath, bleeding, nausea or vomiting, chestpain, or any unexpected problems, contact your Primary Care Provider. Call [facility] ([phone]) or report to the closest Emergency Room. Call 911 if necessary. 06/08/22 1751 <Electronically signed by Juan Daniel Dunham> Cosigner Signature (if applicable): CC: Dr. Solis Cool DO ~ Signed Work Phone: 1(127) 471-558802-06-[address] River June 08, 2022 5:51pm Note Date/Time June 08, 2022 3 :12pm [facility] Medical Records Department [address] [place] [address] Emergency Department Summary 06/08/22 MR#: [id number] Acct: [id number] Name: JOSIE LANDIS Rep #:[id number] : 1965 56 From: Juan Daniel Dunham PCP: Dr. Solis Cool DO Status:RE G ER Location: ED HPI History of Present Illness Chief Complaint: Confusion Informant: patient and spouse/S.O. Narrative Narrative: Patient presents referred in by her statistical engineer for [facility] for evaluation of confusion for the past [...] her medications. She brought her paperwork from [facility], reviewed she had a new left circumflex stent that was 80% blocked decreased on the left 5%. She had a previous right RCA stent that is 60% blocked. She has a 40% proximal LAD from review of her drawings. Reports is had previous MRI in the past. [facility] Medical History Anxiety and depression Bipolar [...] process. External documents reviewed: Discharge paperwork from [facility]. Test considered but not ordered:N/A ED course: [...] % (Auto) 67.1 Lymph % (Auto) 23.5 Fallon % (Auto) 6.7 Eos % (Auto) 2.1 [...] Sl. Cloudy Urine pH 7.0 Ur Specific Stonewall 1.010 Urine Protein Negative Urine Glucose (UA) [...] (Auto) Neut % (Auto) Lymph % (Auto) Fallon % (Auto) Eos % (Auto) Baso % [...] Color Urine Clarity Urine pH Ur Specific Stonewall Urine Protein Urine Glucose (UA) Urine Ketones [...] above Results were Read Back by Garrett Geren MD to Riley Frances MD, and understanding [...] Hold Instructions: Resume on 06/10/22. With your statistical engineer regarding when to resume clonazepam 0.5 mg Tablet 0.5 mg PO BID pantoprazole 20 mg Tablet,Delayed Release (Dr/Ec) 20 mg PO DAILY carbamazepine [Tegretol] 200 mg Tablet 200 mg PO BID losartan 25 mg Tablet 25 mg PO DAILY Hold Instructions: Resume on 06/10/22. With your statistical engineer regarding when to resume topiramate [Topamax] 100 [...] Provider] - Disposition Disposition: Acute Care Hospital [facility] What to do if you have Problems For any increased pain, shortness of breath, bleeding, nausea or vomiting, chestpain, or any unexpected problems, contact your Primary Care Provider. Call [facility] ([phone]) or report to the closest Emergency Room. Call 911 if necessary. 06/08/22 1751 <Electronically signed by Juan Daniel Dunham> Cosigner Signature (if applicable): CC: Dr. Solis Cool DO ~ Signed Work Phone: 1(862) 354-784901-31-[address] Shine June 02, 2022 1:31pm Note Date/Time June 02, 2022 8 :49am [facility] Medical Records Department [address] [place] [address] Consultation - Cardiology 06/02/22 0843 MR#: [id number] Acct: [id number] Name: JOSIE LANDIS Rep #:[id number] : 1965 56 From: William Shine MD PCP: Dr. Solis Cool DO Status:AD M AYANA Location: [place] [address] Assessment & Plan Assessment/Plan (1) Chest pain: [...] artery disease status post recent PCI at [facility] involving the left circumflex artery. She also [...] was called for further evaluation and management. [facility] Medical History Anxiety and depression Bipolar 1 [...] % (Auto) 54.4, Lymph % (Auto) 35.0, Fallon % (Auto) 6.8, Eos % (Auto) 2.9, [...] % (Auto) 54.4, Lymph % (Auto) 35.0, Fallon % (Auto) 6.8, Eos % (Auto) 2.9, [...] MD; Dr. William Shine MD; Dr. Solis Cool, DO~ Signed Work Phone: 1(243) 468-452701-31-2023 History and physical note Author Dr. Frias June 02, 2022 6:59am Note Date/Time June 02, 2022 6 :39am [facility] Medical Records Department [address] [place] [address] H&P Exam - Hospitalist 06/02/22 0658 MR#: [id number] Acct: [id number] Name: JOSIE LANDIS Rep #:[id number] : 1965 56 From: Carmen Frias MD PCP: Dr. Solis Cool, Status:AD M AYANA [facility] - General General Date of Admission: 06/02/22 Date of Service: 06/02/22 Chief Complaint: Chest pain HPI Narrative The patient is a 56 y/o F w/ PMHx: Tobacco use, COPD, CAD s/p PCI, HTN, HLD, Anxiety and Depression/Bipolar disorder who presents to the [facility] ED on 06/02/22 with history of this [...] 2 weeks prior to current presentation at [facility] prompting ED evaluation. She did self administer NG prior to arrival and her chest pain has currently resolved. She notes her mother had PCI and 2-3 days following had a massive LA which is why she came in and [...] air, CBC with WC 4.5, hemoglobin 13.2, [id number] without marked shift, BMP with chloride 112, glucose 131, calcium 8.4 not otherwise not marked appearing, troponin 5, chest x-ray with no acute cardiopulmonary findings, EKG with sinus rhythm with no acute evidence of ischemia similar to last EKG performed. [facility] Medical History Anxiety and depression CAD (coronary [...] % (Auto) 54.4, Lymph % (Auto) 35.0, Fallon % (Auto) 6.8, Eos % (Auto) 2.9, [...] and Depression/Bipolar disorder who presents to the [facility] ED on 06/02/22 with history of this [...] 2 weeks prior to current presentation at [facility] prompting ED evaluation. #1. Chest Pain s/p [...] 55 minutes. Charges/Coding Visit Charges Inpatient E&M: 25504 Init Hosp L2 06/02/22 0659 <Electronically signed by Carmen Frias MD> Cosigner Signature (if applicable): CC: Dr. Carmen Frias MD; Dr. Solis Cool, DO~ Signed Work Phone: 1([phone]) 993-873601-31-[address] Palmer June 02, 2022 6:48am Note Date/Time June 02, 2022 5 :30am [facility] Medical Records Department [address] [place] [address] Emergency Department Summary 06/02/22 MR#: [id number] Acct: [id number] Name: JOSIE LANDIS Rep #:[id number] : 1965 56 From: Keyur Palmer MD [...] of her circumflex 2 weeks ago at [facility]. I reviewed papers from [facility] that the patient brought with her. These [...] been doing well since her heart cath. [facility] Medical History (Updated 06/02/22 @ 06:47 [...] and directly discussed these issues with our statistical engineer, Dr. Shine. He recommend that we do [...] % (Auto) 54.4 Lymph % (Auto) 35.0 Fallon % (Auto) 6.8 Eos % (Auto) 2.9 [...] ectopy. No acute ST elevation or depression. KS interval, QRS duration and QTc are normal. [...] Provider] - Disposition Disposition: Acute Care Hospital [facility] What to do if you have Problems For any increased pain, shortness of breath, bleeding, nausea or vomiting, chestpain, or any unexpected problems, contact your Primary Care Provider. Call [facility] ([phone]) or report to the closest Emergency Room. Call 911 if necessary. 06/02/22 0648 <Electronically signed by Keyur Palmer MD> Cosigner Signature (if applicable): CC: Dr. Solis Cool DO ~ Signed Work Phone: [phone]) [phone] NotePROCEDURE: CHEST AP PORTABLE, 05/21/2022 9:09 AM [...] airways or early chronic obstructive pulmonary disease [facility] Hospital[facility] Author Dr. Palmer June 02, 2022 6:48am Note Date/Time June 02, 2022 5 :30am [facility] Medical Records Department [address] [place] [address] Emergency Department Summary 06/02/22 MR#: [id number] Acct: [id number] Name: JOSIE LANDIS Rep #:[id number] : 1965 56 From: Keyur Palmer MD PCP: Dr. Solis Cool DO Status:RE G [...] of her circumflex 2 weeks ago at [facility]. I reviewed papers from [facility] that the patient brought with her. These [...] been doing well since her heart cath. [facility] Medical History (Updated 06/02/22 @ 06:47 [...] and directly discussed these issues with our statistical engineer, Dr. Shine. He recommend that we do [...] % (Auto) 54.4 Lymph % (Auto) 35.0 Fallon % (Auto) 6.8 Eos % (Auto) 2.9 [...] ectopy. No acute ST elevation or depression. KS interval, QRS duration and QTc are normal. [...] Provider] - Disposition Disposition: Acute Care Hospital [facility] What to do if you have Problems For any increased pain, shortness of breath, bleeding, nausea or vomiting, chestpain, or any unexpected problems, contact your Primary Care Provider. Call [facility] ([phone]) or report to the closest Emergency Room. Call 911 if necessary. 06/02/22 0648 <Electronically signed by Keyur Palmer MD> Cosigner Signature (if applicable): CC: Dr. Solis Cool, DO ~ Signed Work Phone: Discharge summary Author Dr. Lake June 02, 2022 4:31pm Note Date/Time June 02, 2022 3 :47pm [facility] Medical Records Department [address] [place] [address] Instructions for Home/Discharge Instructions 06/02/22 1546 MR#: [id number] Acct: [id number] Name: JOSIE LANDIS Rep #:[id number] : 1965 56 From: Rajwinder Lake MD PCP: Dr. Solis Cool, DO Status:AD M AYANA Discharge Instructions Diet [...] medications ? Please follow-up with your current statistical engineer upon discharge -Please call your primary care [...] Hold Instructions: Resume on 06/10/22. With your statistical engineer regarding when to resume losartan 25 mg Tablet 25 mg PO DAILY Hold Instructions: Resume on 06/10/22. With your statistical engineer regarding when to resume Referrals / Follow Up: Solis Cool DO [Primary Care Provider] - Within 1 Week Disposition Disposition (needs filled in before D/C Order can be placed): Home, Self Care 06/02/22 1631<Electronically signed by Rajwinder Lake MD>Rajwinder Lake MD CC: Dr. Carmen Frias MD; Dr. William Shine MD; Dr. Solis Cool DO ~ Signed Work Phone: Discharge summary Author Dr. Hawley June 09, 2022 3:27pm Note Date/Time June 09, 2022 3 :00pm [facility] Medical Records Department [address] [place] [address] Discharge Summary 06/09/22 1452 MR#: [id number] Acct: [id number] Name: JOSIE LANDIS Rep #:[id number] : 1965 56 From: Blayne Hawley MD PCP: Dr. Solis Cool, DO Status:AD M IN [facility] Prov[facility] Date of Admission: 06/08/22 Date of Discharge: 06/09/22 Primary Care Physician: Dr. Solis Cool, DO Reason For Visit: CVA Diagnosis Discharge [...] event monitor result yoana sent to patient's statistical engineer at [facility] Dr. Lopez 2. Hypokalemia ? Corrected per [...] (Auto) 71.0 H, Lymph % (Auto) 20.1, Fallon % (Auto) 6.6, Eos % (Auto) 1.7, Baso % (Auto) 0.3, Absolute Neuts (auto) 4.1, Absolute Lymphs (auto) 1.15, Nucleated RBC % 0 06/09/22 05:48: Sodium 143, Potassium 3.9, Chloride 114 H, Carbon Dioxide 21.0, Anion Gap 8, BUN 8, Creatinine 0.82, Estim Creat Clear Calc 76.27, Est GFR (MDRD) Af Amer 94, Est GFR (MDRD) Non-Af 78, BUN/Creatinine Ratio 9.8 L, Gcohuco273 H, Calcium 8.3 L, Total Bilirubin 0.30, [...] Hold Instructions: Resume on 06/10/22. With your statistical engineer regarding when to resume clonazepam 0.5 mg Tablet 0.5 mg PO BID pantoprazole 20 mg Tablet,Delayed Release (Dr/Ec) 40 mg PO DAILY carbamazepine [Tegretol] 200 mg Tablet 400 mg PO BID losartan 25 mg Tablet 25 mg PO DAILY Hold Instructions: Resume on 06/10/22. With your statistical engineer regarding when to resume topiramate [Topamax] 100 [...] Self Care Charges/Coding Visit Charges Inpatient E&M: 74665 Disch Hosp >30min 06/09/22 1527 <Electronically signed by Blayne Hawley MD> Cosigner Signature (if applicable): CC: Dr. Blayne Hawley MD; Dr. Solis Cool DO~ Signed Work Phone: evaluation noteNo assessment information available Work Phone: evaluation note* Diagnosis Onset Date Resolution Status Bradycardia, sinus acute Chest pain acute History of CAD (coronary artery disease) acute Work Phone: evaluation note* Diagnosis Onset Date Resolution Status Bradycardia, sinus acute Chest pain acute History of CAD (coronary artery disease) acute Acute cerebrovascular accident (CVA) acute Confusion acute History of CAD (coronary artery disease) acute Work Phone: evaluation note* Diagnosis Arterial ischemic stroke (HCC)- Primary Unspecified cerebral artery occlusion with cerebral infarction Cerebral infarction, unspecified mechanism (HCC) [facility] Diagnosis Arterial ischemic stroke (HCC)- Primary Unspecified cerebral artery occlusion with cerebral infarction Cerebral infarction, unspecified mechanism (HCC) [facility]* Diagnosis Onset Date Resolution Status Acute cerebrovascular accident (CVA) acute [id number] chronic HLD (hyperlipidemia) chronic HTN (hypertension) chronic Tobacco abuse chronic Work Phone: evaluation note* Diagnosis 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 [facility]* Diagnosis Pre-op evaluation- Primary Preoperative examination, unspecified 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 Primary hypertension Unspecified essential hypertension Seizures (HCC) Other convulsions Asthma due to seasonal allergies Coronary artery disease involving [place] coronary artery of [place] heart without angina pectoris Gastroesophageal reflux disease without esophagitis Esophageal reflux 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 [facility]* Diagnosis 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 documented in this encounter [place] note* Diagnosis 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 [facility] Diagnosis Glioma (HCC)- Primary 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 [facility] 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 [facility] Diagnosis Lesion of brain- Primary Other conditions of brain Speech disturbance, unspecified type Alexia Confusion Unspecified psychosis Visual field defect Visual field defect, unspecified [facility] Diagnosis Brain mass- Primary Unspecified condition of brain Alexia Lesion of brain Other conditions of brain Speech disturbance, unspecified type Visual field defect Visual field defect, unspecified Confusion Unspecified psychosis [facility]* Diagnosis Corpus callosum syndrome (HCC)- Primary Other specified disorder of nervous system [facility] Diagnosis Lesion of brain- Primary Other conditions of brain Speech disturbance, unspecified type 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 Brain mass Unspecified condition of brain [facility] Diagnosis Brain lesion- Primary Other conditions of brain Homonymous hemianopsia, right [facility]* Diagnosis Lesion of brain- Primary Other conditions of brain Confusion 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 Speech disturbance, unspecified type Alexia Visual field defect Visual field defect, unspecified [facility]* Diagnosis Brain lesion- Primary Other conditions of brain Diarrhea of presumed infectious origin [facility] Diagnosis Brain lesion- Primary Other conditions of brain [facility] Diagnosis Neoplasm of uncertain behavior of brain, 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 Brain lesion Other conditions of brain Confusion Unspecified psychosis Alexia Visual field defect Visual field defect, unspecified [facility] Diagnosis Brain lesion- Primary Other conditions of brain 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 [facility] Neoplasm Neoplasm of unspecified [...] and spinal cord [facility] Diagnosis Cerebral infarction, unspecified mechanism (HCC) Neoplasm of uncertain behavior of brain, 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 [facility]* Diagnosis 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, 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 [facility] Diagnosis Lesion of brain Other conditions of brain Neoplasm of uncertain behavior of brain, 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 [facility] Diagnosis Brain lesion- Primary Other conditions of brain Neoplasm of uncertain behavior of brain, 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 [facility] Diagnosis Brain lesion- Primary Other conditions of brain 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 Confusion Unspecified psychosis Visual field defect Visual field defect, unspecified Neoplasm of uncertain behavior of brain, 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 [facility] Neoplasm of uncertain behavior of brain, 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 Brain lesion Other conditions of brain Confusion Unspecified psychosis Alexia Visual field defect Visual field defect, unspecified 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 [facility] Brain lesion- Primary Other conditions of brain [facility] 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, unspecified Neuropathy Mononeuritis of unspecified site [facility]* Diagnosis Brain lesion- Primary Other conditions of brain Visual field defect Visual field defect, unspecified Lesion of brain Other conditions of brain 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 [facility] Diagnosis Brain lesion- Primary Other conditions of brain Corpus callosum white matter abnormalities present on MRI CSF abnormal Nonspecific abnormal finding in cerebrospinal fluid Abnormal gait Abnormality of gait [facility] Diagnosis Brain lesion Other conditions of brain [facility] Diagnosis Brain lesion Other conditions of brain [facility] Diagnosis Brain lesion- Primary Other conditions of brain Visual field defect Visual field defect, unspecified Seizures (HCC) Other convulsions Confusion Unspecified psychosis Alexia Paresthesia of both legs Disturbance of skin sensation Neoplasm of uncertain behavior of brain, 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 [facility] Diagnosis Brain lesion- Primary Other conditions of brain [facility] 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, unspecified Brain lesion Other conditions of brain [facility]* Diagnosis Brain lesion- Primary Other conditions of brain Confusion Unspecified psychosis Visual field defect Visual field defect, unspecified Alexia Lesion of brain Other conditions of brain Speech disturbance, unspecified type Seizures (HCC) Other convulsions [facility]* Diagnosis Brain lesion- Primary Other conditions of brain [facility] Diagnosis Seizures (HCC)- Primary Other convulsions History of psychogenic nonepileptic seizure Brain lesion Other conditions of brain [facility] Diagnosis Seizures (HCC)- Primary Other convulsions [facility] Diagnosis Pre-op evaluation- Primary Preoperative examination, unspecified 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 Primary hypertension Unspecified essential hypertension Seizures (HCC) Other convulsions Asthma due to seasonal allergies Coronary artery disease involving [place] coronary artery of [place] heart without angina pectoris Gastroesophageal reflux disease without esophagitis Esophageal reflux Seizures (HCC)- Primary Other convulsions [facility] Diagnosis Pre-op evaluation- Primary Preoperative examination, unspecified 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 Primary hypertension Unspecified essential hypertension Seizures (HCC) Other convulsions Asthma due to seasonal allergies Coronary artery disease involving [place] coronary artery of [place] heart without angina pectoris Gastroesophageal reflux disease without esophagitis Esophageal reflux Brain lesion Other conditions of brain [facility] Pre-op evaluation- Primary Preoperative examination, unspecified 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 Primary hypertension Unspecified essential hypertension Seizures (HCC) Other convulsions Asthma due to seasonal allergies Coronary artery disease involving [place] coronary artery of [place] heart without angina pectoris Gastroesophageal reflux disease without esophagitis Esophageal reflux Brain lesion- Primary Other conditions of brain [facility]-op evaluation- Primary Preoperative examination, unspecified 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 Primary hypertension Unspecified essential hypertension Seizures (HCC) Other convulsions Asthma due to seasonal allergies Coronary artery disease involving [place] coronary artery of [place] heart without angina pectoris Gastroesophageal reflux disease without esophagitis Esophageal reflux Seizures (HCC) Other convulsions [facility] Diagnosis Pre-op evaluation- Primary Preoperative examination, unspecified 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 Primary hypertension Unspecified essential hypertension Seizures (HCC) Other convulsions Asthma due to seasonal allergies Coronary artery disease involving [place] coronary artery of [place] heart without angina pectoris Gastroesophageal reflux disease [...] condition of brain [facility] Diagnosis Pre-op evaluation- Primary Preoperative examination, unspecified 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 Primary hypertension Unspecified essential hypertension Seizures (HCC) Other convulsions Asthma due to seasonal allergies Coronary artery disease involving [place] coronary artery of [place] heart without angina pectoris Gastroesophageal reflux disease without esophagitis Esophageal reflux Brain lesion- Primary Other conditions of brain [facility] Pre-op evaluation- Primary Preoperative examination, unspecified 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 Primary hypertension Unspecified essential hypertension Seizures (HCC) Other convulsions Asthma due to seasonal allergies Coronary artery disease involving [place] coronary artery of [place] heart without angina pectoris Gastroesophageal reflux disease without esophagitis Esophageal reflux Recurrent seizures (HCC)- Primary Other forms of epilepsy and recurrent seizures without mention of intractable epilepsy [facility] Diagnosis Pre-op evaluation- Primary Preoperative examination, unspecified 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 Primary hypertension Unspecified essential hypertension Seizures (HCC) Other convulsions Asthma due to seasonal allergies (HCC) Coronary artery disease involving [place] coronary artery of [place] heart without angina pectoris Gastroesophageal reflux disease without esophagitis Esophageal reflux Brain lesion Other conditions of brain [facility] Diagnosis Pre-op evaluation- Primary Preoperative examination, unspecified 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 Primary hypertension Unspecified essential hypertension Seizures (HCC) Other convulsions Asthma due to seasonal allergies (HCC) Coronary artery disease involving [place] coronary artery of [place] heart without angina pectoris Gastroesophageal reflux disease without esophagitis Esophageal reflux Brain lesion- Primary Other conditions of brain Alexia Paresthesia of both legs Disturbance of skin sensation Visual field defect Visual field defect, unspecified Blurry vision Other specified visual disturbances Encounter for observation for suspected malignant neoplasm Visual disturbance Unspecified visual disturbance [facility] Diagnosis Pre-op evaluation- Primary Preoperative examination, unspecified 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 Primary hypertension Unspecified essential hypertension Seizures (HCC) Other convulsions Asthma due to seasonal allergies (HCC) Coronary artery disease involving [place] coronary artery of [place] heart without angina pectoris Gastroesophageal reflux disease without esophagitis Esophageal reflux Brain lesion- Primary Other conditions of brain [facility] this [facility] Diagnosis Onset Date Resolution Status Admit Date Dyspnea on exertion acute November 24, 2024 9:00am History of heart artery stent acute November 24, 2024 9:00am Atherosclerosis of [place] coronary artery of [place] heart without angina chronic November 24, 2024 9:00am HLD (hyperlipidemia) chronic November 24, 2024 9:00am HTN (hypertension) chronic November 012024 9:00am [facility] Work Phone: History and physical note Author Dr. Frias June 02, 2022 6:59am Note Date/Time June 02, 2022 6 :39am [facility] Medical Records Department [address] [place] [address] H&P Exam - Hospitalist 06/02/22 0658 MR#: [id number] Acct: [id number] Name: JOSIE LANDIS Rep #:[id number] 1965 56 From: Carmen Frias MD PCP: Dr. Solis Cool, DO Status:AD M [facility] Location: [place] [address] HPI - General General Date of Admission: 06/02/22 Date of Service: 06/02/22 Chief Complaint: Chest pain HPI Narrative The patient is a 56 y/o F w/ PMHx: Tobacco use, COPD, CAD s/p PCI, HTN, HLD, Anxiety and Depression/Bipolar disorder who presents to the [facility] ED on 06/02/22 with history of this [...] 2 weeks prior to current presentation at [facility] prompting ED evaluation. She did self administer NG prior to arrival and her chest pain has currently resolved. She notes her mother had PCI and 2-3 days following had a massive LA which is why she came in and [...] air, CBC with WC 4.5, hemoglobin 13.2, [id number] without marked shift, BMP with chloride 112, glucose 131, calcium 8.4 not otherwise not marked appearing, troponin 5, chest x-ray with no acute cardiopulmonary findings, EKG with sinus rhythm with no acute evidence of ischemia similar to last EKG performed. [facility] Medical History Anxiety and depression CAD (coronary [...] % (Auto) 54.4, Lymph % (Auto) 35.0, [place] % (Auto) 6.8, Eos % (Auto) 2.9, [...] and Depression/Bipolar disorder who presents to the [facility] ED on 06/02/22 with history of this [...] 2 weeks prior to current presentation at [facility] prompting ED evaluation. #1. Chest Pain s/p [...] 55 minutes. Charges/Coding Visit Charges Inpatient E&M: 58633 Init Hosp L2 06/02/22 0659 <Electronically signed by Carmen Frias MD> Cosigner Signature (if applicable): CC: Dr. Carmen Frias MD; Dr. Solis Cool, DO~ Signed Work Phone: Hospital Discharge instructions Additional Instructions Your cardiac enzymes were negative twice today. Follow-up with your statistical engineer, Dr. Lopez as soon as possible. Call the office tomorrow. Work Phone: Instructions* Name Dates Details Patient Instructions Indication:Non-smoker Start:15-Jul-2020 Instruction Type:Provider Instructions for Treatment How to Access Health Informa tion Online using Patient Portal and [employer] Apps Indication:Non-smoker Start:15-Jul-2020 Instruction Type:Patient Education Patient Instructions Indication:BMI 26.0-26.9,adult Start:08-Jul-2020 Instruction Type:Provider Instructions for Treatment How to Access Health Informa tion Online using Patient Portal and [employer] Apps Indication:BMI 26.0-26.9,adult Start:08-Jul-2020 Instruction Type:Patient Education Patient Instructions Indication:Non-smoker Start:04-Jul-2020 Instruction Type:Provider Instructions for Treatment How to Access Health Informa tion Online using Patient Portal and [employer] Apps Indication:Non-smoker Start:04-Jul-2020 Instruction Type:Patient Education How to Access Health Informa tion Online using Patient Portal and 3rd [employer] Apps Indication:Non-smoker Start:03-Jul-2020 Instruction Type:Patient Education Patient Instructions Indication:Non-smoker Start:03-Jul-2020 Instruction Type:Provider Instructions for Treatment Patient Instructions Indication:Non-smoker Start:01-Jul-2020 Instruction Type:Provider Instructions for Treatment How to Access Health Informa tion Online using Patient Portal and 3rd [employer] Apps Indication:Non-smoker Start:01-Jul-2020 Instruction Type:Patient Education Patient Instructions Indication:Non-smoker Start:28-Jun-2020 Instruction Type:Provider Instructions for Treatment How to Access Health Informa tion Online using Patient Portal and [employer]rd [employer] Apps Indication:Non-smoker Start:28-Jun-2020 Instruction Type:Patient Education How to Access Health Informa tion Online using Patient Portal and [employer]rd [employer] Apps Indication:Non-smoker Start:12-Apr-2020 Instruction Type:Patient Education [...] tion Online using Patient Portal and [employer]rd [employer] Apps Indication:Non-smoker Start:18-Sep-2020 Instruction Type:Patient Education Patient Instructions Indication:Non-smoker Start:18-Sep-2020 Instruction Type:Provider Instructions for Treatment Patient Instructions Indication:Non-smoker Start:15-Jul-2020 Instruction Type:Provider Instructions for Treatment How to Access Health Informa tion Online using Patient Portal and [employer]rd [employer] Apps Indication:Non-smoker Start:15-Jul-2020 Instruction Type:Patient Education Patient Instructions Indication:BMI 26.0-26.9,adult Start:08-Jul-2020 Instruction Type:Provider Instructions for Treatment How to Access Health Informa tion Online using Patient Portal and 3rd [employer] Apps Indication:BMI 26.0-26.9,adult Start:08-Jul-2020 Instruction Type:Patient Education Patient Instructions Indication:Non-smoker Start:04-Jul-2020 Instruction Type:Provider Instructions for Treatment How to Access Health Informa tion Online using Patient Portal and [employer]rd [employer] Apps Indication:Non-smoker Start:04-Jul-2020 Instruction Type:Patient Education How to Access Health Informa tion Online using Patient Portal and [employer]rd [employer] Apps Indication:Non-smoker Start:03-Jul-2020 Instruction Type:Patient Education Patient Instructions Indication:Non-smoker Start:03-Jul-2020 Instruction Type:Provider Instructions for Treatment Patient Instructions Indication:Non-smoker Start:01-Jul-2020 Instruction Type:Provider Instructions for Treatment How to Access Health Informa tion Online using Patient Portal and [employer]rd [employer] Apps Indication:Non-smoker Start:01-Jul-2020 Instruction Type:Patient Education Patient Instructions Indication:Non-smoker Start:28-Jun-2020 Instruction Type:Provider Instructions for Treatment How to Access Health Informa tion Online using Patient Portal and [employer]rd [employer] Apps Indication:Non-smoker Start:28-Jun-2020 Instruction Type:Patient Education How to Access Health Informa tion Online using Patient Portal and [employer]rd [employer] Apps Indication:Non-smoker Start:12-Apr-2020 Instruction Type:Patient Education [...] Informa tion Online using Patient Portal and [employer] Apps Indication:Non-smoker Start:18-Sep-2020 Instruction Type:Patient Education Patient Instructions Indication:Non-smoker Start:18-Sep-2020 Instruction Type:Provider Instructions for Treatment Patient Instructions Indication:Non-smoker Start:15-Jul-2020 Instruction Type:Provider Instructions for Treatment How to Access Health Informa tion Online using Patient Portal and [employer] Apps Indication:Non-smoker Start:15-Jul-2020 Instruction Type:Patient Education Patient Instructions Indication:BMI 26.0-26.9,adult Start:08-Jul-2020 Instruction Type:Provider Instructions for Treatment How to Access Health Informa tion Online using Patient Portal and 3rd [employer] Apps Indication:BMI 26.0-26.9,adult Start:08-Jul-2020 Instruction Type:Patient Education Patient Instructions Indication:Non-smoker Start:04-Jul-2020 Instruction Type:Provider Instructions for Treatment How to Access Health Informa tion Online using Patient Portal and 3rd [employer] Apps Indication:Non-smoker Start:04-Jul-2020 Instruction Type:Patient Education How to Access Health Informa tion Online using Patient Portal and [employer]rd [employer] Apps Indication:Non-smoker Start:03-Jul-2020 Instruction Type:Patient Education Patient Instructions Indication:Non-smoker Start:03-Jul-2020 Instruction Type:Provider Instructions for Treatment Patient Instructions Indication:Non-smoker Start:01-Jul-2020 Instruction Type:Provider Instructions for Treatment How to Access Health Informa tion Online using Patient Portal and 3rd [employer] Apps Indication:Non-smoker Start:01-Jul-2020 Instruction Type:Patient Education Patient Instructions Indication:Non-smoker Start:28-Jun-2020 Instruction Type:Provider Instructions for Treatment How to Access Health Informa tion Online using Patient Portal and 3rd [employer] Apps Indication:Non-smoker Start:28-Jun-2020 Instruction Type:Patient Education How to Access Health Informa tion Online using Patient Portal and [employer]rd [employer] Apps Indication:Non-smoker Start:12-Apr-2020 Instruction Type:Patient Education [...] tion Online using Patient Portal and [employer]rd [employer] Apps Indication:Non-smoker Start:14-Mar-2021 Instruction Type:Patient Education How to Access Health Informa tion Online using Patient Portal and [employer]rd [employer] Apps Indication:Non-smoker Start:18-Sep-2020 Instruction Type:Patient Education Patient Instructions Indication:Non-smoker Start:18-Sep-2020 Instruction Type:Provider Instructions for Treatment Patient Instructions Indication:Non-smoker Start:15-Jul-2020 Instruction Type:Provider Instructions for Treatment How to Access Health Informa tion Online using Patient Portal and 3rd [employer] Apps Indication:Non-smoker Start:15-Jul-2020 Instruction Type:Patient Education Patient Instructions Indication:BMI 26.0-26.9,adult Start:08-Jul-2020 Instruction Type:Provider Instructions for Treatment How to Access Health Informa tion Online using Patient Portal and 3rd [employer] Apps Indication:BMI 26.0-26.9,adult Start:08-Jul-2020 Instruction Type:Patient Education Patient Instructions Indication:Non-smoker Start:04-Jul-2020 Instruction Type:Provider Instructions for Treatment How to Access Health Informa tion Online using Patient Portal and 3rd [employer] Apps Indication:Non-smoker Start:04-Jul-2020 Instruction Type:Patient Education How to Access Health Informa tion Online using Patient Portal and 3rd [employer] Apps Indication:Non-smoker Start:03-Jul-2020 Instruction Type:Patient Education Patient Instructions Indication:Non-smoker Start:03-Jul-2020 Instruction Type:Provider Instructions for Treatment Patient Instructions Indication:Non-smoker Start:01-Jul-2020 Instruction Type:Provider Instructions for Treatment How to Access Health Informa tion Online using Patient Portal and [employer]rd [employer] Apps Indication:Non-smoker Start:01-Jul-2020 Instruction Type:Patient Education Patient Instructions Indication:Non-smoker Start:28-Jun-2020 Instruction Type:Provider Instructions for Treatment How to Access Health Informa tion Online using Patient Portal and [employer]rd [employer] Apps Indication:Non-smoker Start:28-Jun-2020 Instruction Type:Patient Education How to Access Health Informa tion Online using Patient Portal and [employer] Apps Indication:Non-smoker Start:12-Apr-2020 Instruction Type:Patient Education [...] tion Online using Patient Portal and [employer]rd [employer] Apps Indication:Non-smoker Start:19-Sep-2021 Instruction Type:Patient Education Patient Instructions Indication:Non-smoker Start:14-Mar-2021 Instruction Type:Provider Instructions for Treatment How to Access Health Informa tion Online using Patient Portal and [employer]rd [employer] Apps Indication:Non-smoker Start:14-Mar-2021 Instruction Type:Patient Education How to Access Health Informa tion Online using Patient Portal and [employer]rd [employer] Apps Indication:Non-smoker Start:18-Sep-2020 Instruction Type:Patient Education Patient Instructions Indication:Non-smoker Start:18-Sep-2020 Instruction Type:Provider Instructions for Treatment Patient Instructions Indication:Non-smoker Start:15-Jul-2020 Instruction Type:Provider Instructions for Treatment How to Access Health Informa tion Online using Patient Portal and [employer]rd [employer] Apps Indication:Non-smoker Start:15-Jul-2020 Instruction Type:Patient Education Patient Instructions Indication:BMI 26.0-26.9,adult Start:08-Jul-2020 Instruction Type:Provider Instructions for Treatment How to Access Health Informa tion Online using Patient Portal and [employer]rd [employer] Apps Indication:BMI 26.0-26.9,adult Start:08-Jul-2020 Instruction Type:Patient Education Patient Instructions Indication:Non-smoker Start:04-Jul-2020 Instruction Type:Provider Instructions for Treatment How to Access Health Informa tion Online using Patient Portal and [employer]rd [employer] Apps Indication:Non-smoker Start:04-Jul-2020 Instruction Type:Patient Education How to Access Health Informa tion Online using Patient Portal and [employer]rd [employer] Apps Indication:Non-smoker Start:03-Jul-2020 Instruction Type:Patient Education Patient Instructions Indication:Non-smoker Start:03-Jul-2020 Instruction Type:Provider Instructions for Treatment Patient Instructions Indication:Non-smoker Start:01-Jul-2020 Instruction Type:Provider Instructions for Treatment How to Access Health Informa tion Online using Patient Portal and [employer]rd [employer] Apps Indication:Non-smoker Start:01-Jul-2020 Instruction Type:Patient Education Patient Instructions Indication:Non-smoker Start:28-Jun-2020 Instruction Type:Provider Instructions for Treatment How to Access Health Informa tion Online using Patient Portal and [employer]rd [employer] Apps Indication:Non-smoker Start:28-Jun-2020 Instruction Type:Patient Education How to Access Health Informa tion Online using Patient Portal and [employer]rd [employer] Apps Indication:Non-smoker Start:12-Apr-2020 Instruction Type:Patient Education [...] tion Online using Patient Portal and [employer]rd [employer] Apps Indication:BMI 26.0-26.9,adult Start:10-Oct-2021 Instruction Type:Patient Education Patient Instructions Indication:Non-smoker Start:19-Sep-2021 Instruction Type:Provider Instructions for Treatment How to Access Health Informa tion Online using Patient Portal and [employer]rd [employer] Apps Indication:Non-smoker Start:19-Sep-2021 Instruction Type:Patient Education Patient Instructions Indication:Non-smoker Start:14-Mar-2021 Instruction Type:Provider Instructions for Treatment How to Access Health Informa tion Online using Patient Portal and [employer]rd [employer] Apps Indication:Non-smoker Start:14-Mar-2021 Instruction Type:Patient Education How to Access Health Informa tion Online using Patient Portal and [employer]rd [employer] Apps Indication:Non-smoker Start:18-Sep-2020 Instruction Type:Patient Education Patient Instructions Indication:Non-smoker Start:18-Sep-2020 Instruction Type:Provider Instructions for Treatment Patient Instructions Indication:Non-smoker Start:15-Jul-2020 Instruction Type:Provider Instructions for Treatment How to Access Health Informa tion Online using Patient Portal and [employer]rd [employer] Apps Indication:Non-smoker Start:15-Jul-2020 Instruction Type:Patient Education Patient Instructions Indication:BMI 26.0-26.9,adult Start:08-Jul-2020 Instruction Type:Provider Instructions for Treatment How to Access Health Informa tion Online using Patient Portal and [employer]rd [employer] Apps Indication:BMI 26.0-26.9,adult Start:08-Jul-2020 Instruction Type:Patient Education Patient Instructions Indication:Non-smoker Start:04-Jul-2020 Instruction Type:Provider Instructions for Treatment How to Access Health Informa tion Online using Patient Portal and [employer]rd [employer] Apps Indication:Non-smoker Start:04-Jul-2020 Instruction Type:Patient Education How to Access Health Informa tion Online using Patient Portal and [employer]rd [employer] Apps Indication:Non-smoker Start:03-Jul-2020 Instruction Type:Patient Education Patient Instructions Indication:Non-smoker Start:03-Jul-2020 Instruction Type:Provider Instructions for Treatment Patient Instructions Indication:Non-smoker Start:01-Jul-2020 Instruction Type:Provider Instructions for Treatment How to Access Health Informa tion Online using Patient Portal and [employer]rd [employer] Apps Indication:Non-smoker Start:01-Jul-2020 Instruction Type:Patient Education Patient Instructions Indication:Non-smoker Start:28-Jun-2020 Instruction Type:Provider Instructions for Treatment How to Access Health Informa tion Online using Patient Portal and [employer]rd [employer] Apps Indication:Non-smoker Start:28-Jun-2020 Instruction Type:Patient Education How to Access Health Informa tion Online using Patient Portal and [employer]rd [employer] Apps Indication:Non-smoker Start:12-Apr-2020 Instruction Type:Patient Education [...] tion Online using Patient Portal and [employer]rd [employer] Apps Indication:BMI 26.0-26.9,adult Start:10-Oct-2021 Instruction Type:Patient Education Patient Instructions Indication:Non-smoker Start:19-Sep-2021 Instruction Type:Provider Instructions for Treatment How to Access Health Informa tion Online using Patient Portal and [employer]rd [employer] Apps Indication:Non-smoker Start:19-Sep-2021 Instruction Type:Patient Education Patient Instructions Indication:Non-smoker Start:14-Mar-2021 Instruction Type:Provider Instructions for Treatment How to Access Health Informa tion Online using Patient Portal and [employer]rd [employer] Apps Indication:Non-smoker Start:14-Mar-2021 Instruction Type:Patient Education How to Access Health Informa tion Online using Patient Portal and [employer]rd [employer] Apps Indication:Non-smoker Start:18-Sep-2020 Instruction Type:Patient Education Patient Instructions Indication:Non-smoker Start:18-Sep-2020 Instruction Type:Provider Instructions for Treatment Patient Instructions Indication:Non-smoker Start:15-Jul-2020 Instruction Type:Provider Instructions for Treatment How to Access Health Informa tion Online using Patient Portal and [employer]rd [employer] Apps Indication:Non-smoker Start:15-Jul-2020 Instruction Type:Patient Education Patient Instructions Indication:BMI 26.0-26.9,adult Start:08-Jul-2020 Instruction Type:Provider Instructions for Treatment How to Access Health Informa tion Online using Patient Portal and [employer]rd [employer] Apps Indication:BMI 26.0-26.9,adult Start:08-Jul-2020 Instruction Type:Patient Education Patient Instructions Indication:Non-smoker Start:04-Jul-2020 Instruction Type:Provider Instructions for Treatment How to Access Health Informa tion Online using Patient Portal and [employer]rd [employer] Apps Indication:Non-smoker Start:04-Jul-2020 Instruction Type:Patient Education How to Access Health Informa tion Online using Patient Portal and [employer]rd [employer] Apps Indication:Non-smoker Start:03-Jul-2020 Instruction Type:Patient Education Patient Instructions Indication:Non-smoker Start:03-Jul-2020 Instruction Type:Provider Instructions for Treatment Patient Instructions Indication:Non-smoker Start:01-Jul-2020 Instruction Type:Provider Instructions for Treatment How to Access Health Informa tion Online using Patient Portal and [employer]rd [employer] Apps Indication:Non-smoker Start:01-Jul-2020 Instruction Type:Patient Education Patient Instructions Indication:Non-smoker Start:28-Jun-2020 Instruction Type:Provider Instructions for Treatment How to Access Health Informa tion Online using Patient Portal and [employer]rd [employer] Apps Indication:Non-smoker Start:28-Jun-2020 Instruction Type:Patient Education How to Access Health Informa tion Online using Patient Portal and [employer] Apps Indication:Non-smoker Start:12-Apr-2020 Instruction Type:Patient Education [...] tion Online using Patient Portal and [employer]rd [employer] Apps Indication:BMI 26.0-26.9,adult Start:10-Oct-2021 Instruction Type:Patient Education Patient Instructions Indication:Non-smoker Start:19-Sep-2021 Instruction Type:Provider Instructions for Treatment How to Access Health Informa tion Online using Patient Portal and [employer]rd [employer] Apps Indication:Non-smoker Start:19-Sep-2021 Instruction Type:Patient Education Patient Instructions Indication:Non-smoker Start:14-Mar-2021 Instruction Type:Provider Instructions for Treatment How to Access Health Informa tion Online using Patient Portal and [employer] Apps Indication:Non-smoker Start:14-Mar-2021 Instruction Type:Patient Education How to Access Health Informa tion Online using Patient Portal and [employer] Apps Indication:Non-smoker Start:18-Sep-2020 Instruction Type:Patient Education Patient Instructions Indication:Non-smoker Start:18-Sep-2020 Instruction Type:Provider Instructions for Treatment Patient Instructions Indication:Non-smoker Start:15-Jul-2020 Instruction Type:Provider Instructions for Treatment How to Access Health Informa tion Online using Patient Portal and [employer]rd [employer] Apps Indication:Non-smoker Start:15-Jul-2020 Instruction Type:Patient Education Patient Instructions Indication:BMI 26.0-26.9,adult Start:08-Jul-2020 Instruction Type:Provider Instructions for Treatment How to Access Health Informa tion Online using Patient Portal and [employer] Apps Indication:BMI 26.0-26.9,adult Start:08-Jul-2020 Instruction Type:Patient Education Patient Instructions Indication:Non-smoker Start:04-Jul-2020 Instruction Type:Provider Instructions for Treatment How to Access Health Informa tion Online using Patient Portal and [employer] Apps Indication:Non-smoker Start:04-Jul-2020 Instruction Type:Patient Education How to Access Health Informa tion Online using Patient Portal and [employer] Apps Indication:Non-smoker Start:03-Jul-2020 Instruction Type:Patient Education Patient Instructions Indication:Non-smoker Start:03-Jul-2020 Instruction Type:Provider Instructions for Treatment Patient Instructions Indication:Non-smoker Start:01-Jul-2020 Instruction Type:Provider Instructions for Treatment How to Access Health Informa tion Online using Patient Portal and [employer]rd [employer] Apps Indication:Non-smoker Start:01-Jul-2020 Instruction Type:Patient Education Patient Instructions Indication:Non-smoker Start:28-Jun-2020 Instruction Type:Provider Instructions for Treatment How to Access Health Informa tion Online using Patient Portal and [employer] Apps Indication:Non-smoker Start:28-Jun-2020 Instruction Type:Patient Education How to Access Health Informa tion Online using Patient Portal and [employer] Apps Indication:Non-smoker Start:12-Apr-2020 Instruction Type:Patient Education [...] tion Online using Patient Portal and [employer] Apps Indication:BMI 26.0-26.9,adult Start:13-Mar-2022 Instruction Type:Patient Education Patient Instructions Indication:BMI 26.0-26.9,adult Start:10-Oct-2021 Instruction Type:Provider Instructions for Treatment How to Access Health Informa tion Online using Patient Portal and [employer]rd [employer] Apps Indication:BMI 26.0-26.9,adult Start:10-Oct-2021 Instruction Type:Patient Education Patient Instructions Indication:Non-smoker Start:19-Sep-2021 Instruction Type:Provider Instructions for Treatment How to Access Health Informa tion Online using Patient Portal and [employer] Apps Indication:Non-smoker Start:19-Sep-2021 Instruction Type:Patient Education Patient Instructions Indication:Non-smoker Start:14-Mar-2021 Instruction Type:Provider Instructions for Treatment How to Access Health Informa tion Online using Patient Portal and [employer] Apps Indication:Non-smoker Start:14-Mar-2021 Instruction Type:Patient Education How to Access Health Informa tion Online using Patient Portal and [employer] Apps Indication:Non-smoker Start:18-Sep-2020 Instruction Type:Patient Education Patient Instructions Indication:Non-smoker Start:18-Sep-2020 Instruction Type:Provider Instructions for Treatment Patient Instructions Indication:Non-smoker Start:15-Jul-2020 Instruction Type:Provider Instructions for Treatment How to Access Health Informa tion Online using Patient Portal and [employer] Apps Indication:Non-smoker Start:15-Jul-2020 Instruction Type:Patient Education Patient Instructions Indication:BMI 26.0-26.9,adult Start:08-Jul-2020 Instruction Type:Provider Instructions for Treatment How to Access Health Informa tion Online using Patient Portal and [employer] Apps Indication:BMI 26.0-26.9,adult Start:08-Jul-2020 Instruction Type:Patient Education Patient Instructions Indication:Non-smoker Start:04-Jul-2020 Instruction Type:Provider Instructions for Treatment How to Access Health Informa tion Online using Patient Portal and [employer] Apps Indication:Non-smoker Start:04-Jul-2020 Instruction Type:Patient Education How to Access Health Informa tion Online using Patient Portal and [employer] Apps Indication:Non-smoker Start:03-Jul-2020 Instruction Type:Patient Education Patient Instructions Indication:Non-smoker Start:03-Jul-2020 Instruction Type:Provider Instructions for Treatment Patient Instructions Indication:Non-smoker Start:01-Jul-2020 Instruction Type:Provider Instructions for Treatment How to Access Health Informa tion Online using Patient Portal and [employer] Apps Indication:Non-smoker Start:01-Jul-2020 Instruction Type:Patient Education Patient Instructions Indication:Non-smoker Start:28-Jun-2020 Instruction Type:Provider Instructions for Treatment How to Access Health Informa tion Online using Patient Portal and [employer] Apps Indication:Non-smoker Start:28-Jun-2020 Instruction Type:Patient Education How to Access Health Informa tion Online using Patient Portal and [employer] Apps Indication:Non-smoker Start:12-Apr-2020 Instruction Type:Patient Education [...] tion Online using Patient Portal and [employer] Apps Indication:Non-smoker Start:02-Apr-2022 Instruction Type:Patient Education Patient Instructions Indication:BMI 26.0-26.9,adult Start:13-Mar-2022 Instruction Type:Provider Instructions for Treatment How to Access Health Informa tion Online using Patient Portal and [employer] Apps Indication:BMI 26.0-26.9,adult Start:13-Mar-2022 Instruction Type:Patient Education Patient Instructions Indication:BMI 26.0-26.9,adult Start:10-Oct-2021 Instruction Type:Provider Instructions for Treatment How to Access Health Informa tion Online using Patient Portal and [employer] Apps Indication:BMI 26.0-26.9,adult Start:10-Oct-2021 Instruction Type:Patient Education Patient Instructions Indication:Non-smoker Start:19-Sep-2021 Instruction Type:Provider Instructions for Treatment How to Access Health Informa tion Online using Patient Portal and [employer] Apps Indication:Non-smoker Start:19-Sep-2021 Instruction Type:Patient Education Patient Instructions Indication:Non-smoker Start:14-Mar-2021 Instruction Type:Provider Instructions for Treatment How to Access Health Informa tion Online using Patient Portal and [employer] Apps Indication:Non-smoker Start:14-Mar-2021 Instruction Type:Patient Education How to Access Health Informa tion Online using Patient Portal and [employer] Apps Indication:Non-smoker Start:18-Sep-2020 Instruction Type:Patient Education Patient Instructions Indication:Non-smoker Start:18-Sep-2020 Instruction Type:Provider Instructions for Treatment Patient Instructions Indication:Non-smoker Start:15-Jul-2020 Instruction Type:Provider Instructions for Treatment How to Access Health Informa tion Online using Patient Portal and [employer] Apps Indication:Non-smoker Start:15-Jul-2020 Instruction Type:Patient Education Patient Instructions Indication:BMI 26.0-26.9,adult Start:08-Jul-2020 Instruction Type:Provider Instructions for Treatment How to Access Health Informa tion Online using Patient Portal and [employer] Apps Indication:BMI 26.0-26.9,adult Start:08-Jul-2020 Instruction Type:Patient Education Patient Instructions Indication:Non-smoker Start:04-Jul-2020 Instruction Type:Provider Instructions for Treatment How to Access Health Informa tion Online using Patient Portal and [employer] Apps Indication:Non-smoker Start:04-Jul-2020 Instruction Type:Patient Education How to Access Health Informa tion Online using Patient Portal and [employer] Apps Indication:Non-smoker Start:03-Jul-2020 Instruction Type:Patient Education Patient Instructions Indication:Non-smoker Start:03-Jul-2020 Instruction Type:Provider Instructions for Treatment Patient Instructions Indication:Non-smoker Start:01-Jul-2020 Instruction Type:Provider Instructions for Treatment How to Access Health Informa tion Online using Patient Portal and [employer] Apps Indication:Non-smoker Start:01-Jul-2020 Instruction Type:Patient Education Patient Instructions Indication:Non-smoker Start:28-Jun-2020 Instruction Type:Provider Instructions for Treatment How to Access Health Informa tion Online using Patient Portal and [employer] Apps Indication:Non-smoker Start:28-Jun-2020 Instruction Type:Patient Education How to Access Health Informa tion Online using Patient Portal and [employer] Apps Indication:Non-smoker Start:12-Apr-2020 Instruction Type:Patient Education [...] tion Online using Patient Portal and [employer] Apps Indication:Non-smoker Start:27-May-2022 Instruction Type:Patient Education Patient Instructions Indication:Non-smoker Start:02-Apr-2022 Instruction Type:Provider Instructions for Treatment How to Access Health Informa tion Online using Patient Portal and [employer] Apps Indication:Non-smoker Start:02-Apr-2022 Instruction Type:Patient Education Patient Instructions Indication:BMI 26.0-26.9,adult Start:13-Mar-2022 Instruction Type:Provider Instructions for Treatment How to Access Health Informa tion Online using Patient Portal and [employer] Apps Indication:BMI 26.0-26.9,adult Start:13-Mar-2022 Instruction Type:Patient Education Patient Instructions Indication:BMI 26.0-26.9,adult Start:10-Oct-2021 Instruction Type:Provider Instructions for Treatment How to Access Health Informa tion Online using Patient Portal and [employer] Apps Indication:BMI 26.0-26.9,adult Start:10-Oct-2021 Instruction Type:Patient Education Patient Instructions Indication:Non-smoker Start:19-Sep-2021 Instruction Type:Provider Instructions for Treatment How to Access Health Informa tion Online using Patient Portal and [employer] Apps Indication:Non-smoker Start:19-Sep-2021 Instruction Type:Patient Education Patient Instructions Indication:Non-smoker Start:14-Mar-2021 Instruction Type:Provider Instructions for Treatment How to Access Health Informa tion Online using Patient Portal and [employer] Apps Indication:Non-smoker Start:14-Mar-2021 Instruction Type:Patient Education How to Access Health Informa tion Online using Patient Portal and [employer] Apps Indication:Non-smoker Start:18-Sep-2020 Instruction Type:Patient Education Patient Instructions Indication:Non-smoker Start:18-Sep-2020 Instruction Type:Provider Instructions for Treatment Patient Instructions Indication:Non-smoker Start:15-Jul-2020 Instruction Type:Provider Instructions for Treatment How to Access Health Informa tion Online using Patient Portal and [employer] Apps Indication:Non-smoker Start:15-Jul-2020 Instruction Type:Patient Education Patient Instructions Indication:BMI 26.0-26.9,adult Start:08-Jul-2020 Instruction Type:Provider Instructions for Treatment How to Access Health Informa tion Online using Patient Portal and [employer] Apps Indication:BMI 26.0-26.9,adult Start:08-Jul-2020 Instruction Type:Patient Education Patient Instructions Indication:Non-smoker Start:04-Jul-2020 Instruction Type:Provider Instructions for Treatment How to Access Health Informa tion Online using Patient Portal and [employer] Apps Indication:Non-smoker Start:04-Jul-2020 Instruction Type:Patient Education How to Access Health Informa tion Online using Patient Portal and [employer] Apps Indication:Non-smoker Start:03-Jul-2020 Instruction Type:Patient Education Patient Instructions Indication:Non-smoker Start:03-Jul-2020 Instruction Type:Provider Instructions for Treatment Patient Instructions Indication:Non-smoker Start:01-Jul-2020 Instruction Type:Provider Instructions for Treatment How to Access Health Informa tion Online using Patient Portal and [employer] Apps Indication:Non-smoker Start:01-Jul-2020 Instruction Type:Patient Education Patient Instructions Indication:Non-smoker Start:28-Jun-2020 Instruction Type:Provider Instructions for Treatment How to Access Health Informa tion Online using Patient Portal and [employer] Apps Indication:Non-smoker Start:28-Jun-2020 Instruction Type:Patient Education How to Access Health Informa tion Online using Patient Portal and [employer] Apps Indication:Non-smoker Start:12-Apr-2020 Instruction Type:Patient Education [...] Informa tion Online using Patient Portal and [employer] Apps Indication:Non-smoker Start:27-May-2022 Instruction Type:Patient Education Patient Instructions Indication:Non-smoker Start:02-Apr-2022 Instruction Type:Provider Instructions for Treatment How to Access Health Informa tion Online using Patient Portal and [employer] Apps Indication:Non-smoker Start:02-Apr-2022 Instruction Type:Patient Education Patient Instructions Indication:BMI 26.0-26.9,adult Start:13-Mar-2022 Instruction Type:Provider Instructions for Treatment How to Access Health Informa tion Online using Patient Portal and [employer] Apps Indication:BMI 26.0-26.9,adult Start:13-Mar-2022 Instruction Type:Patient Education Patient Instructions Indication:BMI 26.0-26.9,adult Start:10-Oct-2021 Instruction Type:Provider Instructions for Treatment How to Access Health Informa tion Online using Patient Portal and [employer] Apps Indication:BMI 26.0-26.9,adult Start:10-Oct-2021 Instruction Type:Patient Education Patient Instructions Indication:Non-smoker Start:19-Sep-2021 Instruction Type:Provider Instructions for Treatment How to Access Health Informa tion Online using Patient Portal and [employer] Apps Indication:Non-smoker Start:19-Sep-2021 Instruction Type:Patient Education Patient Instructions Indication:Non-smoker Start:14-Mar-2021 Instruction Type:Provider Instructions for Treatment How to Access Health Informa tion Online using Patient Portal and [employer] Apps Indication:Non-smoker Start:14-Mar-2021 Instruction Type:Patient Education How to Access Health Informa tion Online using Patient Portal and [employer] Apps Indication:Non-smoker Start:18-Sep-2020 Instruction Type:Patient Education Patient Instructions Indication:Non-smoker Start:18-Sep-2020 Instruction Type:Provider Instructions for Treatment Patient Instructions Indication:Non-smoker Start:15-Jul-2020 Instruction Type:Provider Instructions for Treatment How to Access Health Informa tion Online using Patient Portal and [employer] Apps Indication:Non-smoker Start:15-Jul-2020 Instruction Type:Patient Education Patient Instructions Indication:BMI 26.0-26.9,adult Start:08-Jul-2020 Instruction Type:Provider Instructions for Treatment How to Access Health Informa tion Online using Patient Portal and [employer] Apps Indication:BMI 26.0-26.9,adult Start:08-Jul-2020 Instruction Type:Patient Education Patient Instructions Indication:Non-smoker Start:04-Jul-2020 Instruction Type:Provider Instructions for Treatment How to Access Health Informa tion Online using Patient Portal and [employer] Apps Indication:Non-smoker Start:04-Jul-2020 Instruction Type:Patient Education How to Access Health Informa tion Online using Patient Portal and [employer] Apps Indication:Non-smoker Start:03-Jul-2020 Instruction Type:Patient Education Patient Instructions Indication:Non-smoker Start:03-Jul-2020 Instruction Type:Provider Instructions for Treatment Patient Instructions Indication:Non-smoker Start:01-Jul-2020 Instruction Type:Provider Instructions for Treatment How to Access Health Informa tion Online using Patient Portal and [employer] Apps Indication:Non-smoker Start:01-Jul-2020 Instruction Type:Patient Education Patient Instructions Indication:Non-smoker Start:28-Jun-2020 Instruction Type:Provider Instructions for Treatment How to Access Health Informa tion Online using Patient Portal and [employer] Apps Indication:Non-smoker Start:28-Jun-2020 Instruction Type:Patient Education How to Access Health Informa tion Online using Patient Portal and [employer] Apps Indication:Non-smoker Start:12-Apr-2020 Instruction Type:Patient Education [...] tion Online using Patient Portal and [employer] Apps Indication:Non-smoker Start:27-May-2022 Instruction Type:Patient Education Patient Instructions Indication:Non-smoker Start:02-Apr-2022 Instruction Type:Provider Instructions for Treatment How to Access Health Informa tion Online using Patient Portal and [employer] Apps Indication:Non-smoker Start:02-Apr-2022 Instruction Type:Patient Education Patient Instructions Indication:BMI 26.0-26.9,adult Start:13-Mar-2022 Instruction Type:Provider Instructions for Treatment How to Access Health Informa tion Online using Patient Portal and [employer] Apps Indication:BMI 26.0-26.9,adult Start:13-Mar-2022 Instruction Type:Patient Education Patient Instructions Indication:BMI 26.0-26.9,adult Start:10-Oct-2021 Instruction Type:Provider Instructions for Treatment How to Access Health Informa tion Online using Patient Portal and [employer] Apps Indication:BMI 26.0-26.9,adult Start:10-Oct-2021 Instruction Type:Patient Education Patient Instructions Indication:Non-smoker Start:19-Sep-2021 Instruction Type:Provider Instructions for Treatment How to Access Health Informa tion Online using Patient Portal and [employer] Apps Indication:Non-smoker Start:19-Sep-2021 Instruction Type:Patient Education Patient Instructions Indication:Non-smoker Start:14-Mar-2021 Instruction Type:Provider Instructions for Treatment How to Access Health Informa tion Online using Patient Portal and [employer] Apps Indication:Non-smoker Start:14-Mar-2021 Instruction Type:Patient Education How to Access Health Informa tion Online using Patient Portal and [employer] Apps Indication:Non-smoker Start:18-Sep-2020 Instruction Type:Patient Education Patient Instructions Indication:Non-smoker Start:18-Sep-2020 Instruction Type:Provider Instructions for Treatment Patient Instructions Indication:Non-smoker Start:15-Jul-2020 Instruction Type:Provider Instructions for Treatment How to Access Health Informa tion Online using Patient Portal and [employer] Apps Indication:Non-smoker Start:15-Jul-2020 Instruction Type:Patient Education Patient Instructions Indication:BMI 26.0-26.9,adult Start:08-Jul-2020 Instruction Type:Provider Instructions for Treatment How to Access Health Informa tion Online using Patient Portal and [employer] Apps Indication:BMI 26.0-26.9,adult Start:08-Jul-2020 Instruction Type:Patient Education Patient Instructions Indication:Non-smoker Start:04-Jul-2020 Instruction Type:Provider Instructions for Treatment How to Access Health Informa tion Online using Patient Portal and [employer] Apps Indication:Non-smoker Start:04-Jul-2020 Instruction Type:Patient Education How to Access Health Informa tion Online using Patient Portal and [employer] Apps Indication:Non-smoker Start:03-Jul-2020 Instruction Type:Patient Education Patient Instructions Indication:Non-smoker Start:03-Jul-2020 Instruction Type:Provider Instructions for Treatment Patient Instructions Indication:Non-smoker Start:01-Jul-2020 Instruction Type:Provider Instructions for Treatment How to Access Health Informa tion Online using Patient Portal and [employer] Apps Indication:Non-smoker Start:01-Jul-2020 Instruction Type:Patient Education Patient Instructions Indication:Non-smoker Start:28-Jun-2020 Instruction Type:Provider Instructions for Treatment How to Access Health Informa tion Online using Patient Portal and [employer] Apps Indication:Non-smoker Start:28-Jun-2020 Instruction Type:Patient Education How to Access Health Informa tion Online using Patient Portal and [employer] Apps Indication:Non-smoker Start:12-Apr-2020 Instruction Type:Patient Education [...] tion Online using Patient Portal and [employer] Apps Indication:Non-smoker Start:27-May-2022 Instruction Type:Patient Education Patient Instructions Indication:Non-smoker Start:02-Apr-2022 Instruction Type:Provider Instructions for Treatment How to Access Health Informa tion Online using Patient Portal and [employer] Apps Indication:Non-smoker Start:02-Apr-2022 Instruction Type:Patient Education Patient Instructions Indication:BMI 26.0-26.9,adult Start:13-Mar-2022 Instruction Type:Provider Instructions for Treatment How to Access Health Informa tion Online using Patient Portal and [employer] Indication:BMI 26.0-26.9,adult Start:13-Mar-2022 Instruction Type:Patient Education Patient Instructions Indication:BMI 26.0-26.9,adult Start:10-Oct-2021 Instruction Type:Provider Instructions for Treatment How to Access Health Informa tion Online using Patient Portal and [employer] Apps Indication:BMI 26.0-26.9,adult Start:10-Oct-2021 Instruction Type:Patient Education Patient Instructions Indication:Non-smoker Start:19-Sep-2021 Instruction Type:Provider Instructions for Treatment How to Access Health Informa tion Online using Patient Portal and [employer] Indication:Non-smoker Start:19-Sep-2021 Instruction Type:Patient Education Patient Instructions Indication:Non-smoker Start:14-Mar-2021 Instruction Type:Provider Instructions for Treatment How to Access Health Informa tion Online using Patient Portal and [employer] Apps Indication:Non-smoker Start:14-Mar-2021 Instruction Type:Patient Education How to Access Health Informa tion Online using Patient Portal and [employer] Apps Indication:Non-smoker Start:18-Sep-2020 Instruction Type:Patient Education Patient Instructions Indication:Non-smoker Start:18-Sep-2020 Instruction Type:Provider Instructions for Treatment Patient Instructions Indication:Non-smoker Start:15-Jul-2020 Instruction Type:Provider Instructions for Treatment How to Access Health Informa tion Online using Patient Portal and [employer] Apps Indication:Non-smoker Start:15-Jul-2020 Instruction Type:Patient Education Patient Instructions Indication:BMI 26.0-26.9,adult Start:08-Jul-2020 Instruction Type:Provider Instructions for Treatment How to Access Health Informa tion Online using Patient Portal and [employer] Apps Indication:BMI 26.0-26.9,adult Start:08-Jul-2020 Instruction Type:Patient Education Patient Instructions Indication:Non-smoker Start:04-Jul-2020 Instruction Type:Provider Instructions for Treatment How to Access Health Informa tion Online using Patient Portal and [employer] Apps Indication:Non-smoker Start:04-Jul-2020 Instruction Type:Patient Education How to Access Health Informa tion Online using Patient Portal and [employer] Apps Indication:Non-smoker Start:03-Jul-2020 Instruction Type:Patient Education Patient Instructions Indication:Non-smoker Start:03-Jul-2020 Instruction Type:Provider Instructions for Treatment Patient Instructions Indication:Non-smoker Start:01-Jul-2020 Instruction Type:Provider Instructions for Treatment How to Access Health Informa tion Online using Patient Portal and [employer] Apps Indication:Non-smoker Start:01-Jul-2020 Instruction Type:Patient Education Patient Instructions Indication:Non-smoker Start:28-Jun-2020 Instruction Type:Provider Instructions for Treatment How to Access Health Informa tion Online using Patient Portal and [employer] Apps Indication:Non-smoker Start:28-Jun-2020 Instruction Type:Patient Education How to Access Health Informa tion Online using Patient Portal and [employer] Apps Indication:Non-smoker Start:12-Apr-2020 Instruction Type:Patient Education [...] tion Online using Patient Portal and [employer] Apps Indication:BMI 27.0-27.9,adult Start:19-Jun-2022 Instruction Type:Patient Education Patient Instructions Indication:Non-smoker Start:27-May-2022 Instruction Type:Provider Instructions for Treatment How to Access Health Informa tion Online using Patient Portal and [employer] Apps Indication:Non-smoker Start:27-May-2022 Instruction Type:Patient Education Patient Instructions Indication:Non-smoker Start:02-Apr-2022 Instruction Type:Provider Instructions for Treatment How to Access Health Informa tion Online using Patient Portal and [employer] Apps Indication:Non-smoker Start:02-Apr-2022 Instruction Type:Patient Education Patient Instructions Indication:BMI 26.0-26.9,adult Start:13-Mar-2022 Instruction Type:Provider Instructions for Treatment How to Access Health Informa tion Online using Patient Portal and [employer] Indication:BMI 26.0-26.9,adult Start:13-Mar-2022 Instruction Type:Patient Education Patient Instructions Indication:BMI 26.0-26.9,adult Start:10-Oct-2021 Instruction Type:Provider Instructions for Treatment How to Access Health Informa tion Online using Patient Portal and [employer] Indication:BMI 26.0-26.9,adult Start:10-Oct-2021 Instruction Type:Patient Education Patient Instructions Indication:Non-smoker Start:19-Sep-2021 Instruction Type:Provider Instructions for Treatment How to Access Health Informa tion Online using Patient Portal and [employer] Apps Indication:Non-smoker Start:19-Sep-2021 Instruction Type:Patient Education Patient Instructions Indication:Non-smoker Start:14-Mar-2021 Instruction Type:Provider Instructions for Treatment How to Access Health Informa tion Online using Patient Portal and [employer] Apps Indication:Non-smoker Start:14-Mar-2021 Instruction Type:Patient Education How to Access Health Informa tion Online using Patient Portal and [employer] Apps Indication:Non-smoker Start:18-Sep-2020 Instruction Type:Patient Education Patient Instructions Indication:Non-smoker Start:18-Sep-2020 Instruction Type:Provider Instructions for Treatment Patient Instructions Indication:Non-smoker Start:15-Jul-2020 Instruction Type:Provider Instructions for Treatment How to Access Health Informa tion Online using Patient Portal and [employer] Apps Indication:Non-smoker Start:15-Jul-2020 Instruction Type:Patient Education Patient Instructions Indication:BMI 26.0-26.9,adult Start:08-Jul-2020 Instruction Type:Provider Instructions for Treatment How to Access Health Informa tion Online using Patient Portal and [employer] Indication:BMI 26.0-26.9,adult Start:08-Jul-2020 Instruction Type:Patient Education Patient Instructions Indication:Non-smoker Start:04-Jul-2020 Instruction Type:Provider Instructions for Treatment How to Access Health Informa tion Online using Patient Portal and [employer] Indication:Non-smoker Start:04-Jul-2020 Instruction Type:Patient Education How to Access Health Informa tion Online using Patient Portal and [employer] Apps Indication:Non-smoker Start:03-Jul-2020 Instruction Type:Patient Education Patient Instructions Indication:Non-smoker Start:03-Jul-2020 Instruction Type:Provider Instructions for Treatment Patient Instructions Indication:Non-smoker Start:01-Jul-2020 Instruction Type:Provider Instructions for Treatment How to Access Health Informa tion Online using Patient Portal and [employer] Apps Indication:Non-smoker Start:01-Jul-2020 Instruction Type:Patient Education Patient Instructions Indication:Non-smoker Start:28-Jun-2020 Instruction Type:Provider Instructions for Treatment How to Access Health Informa tion Online using Patient Portal and [employer] Indication:Non-smoker Start:28-Jun-2020 Instruction Type:Patient Education How to Access Health Informa tion Online using Patient Portal and [employer] Indication:Non-smoker Start:12-Apr-2020 Instruction Type:Patient Education [...] tion Online using Patient Portal and [employer] Apps Indication:BMI 27.0-27.9,adult Start:19-Jun-2022 Instruction Type:Patient Education Patient Instructions Indication:Non-smoker Start:27-May-2022 Instruction Type:Provider Instructions for Treatment How to Access Health Informa tion Online using Patient Portal and [employer] Indication:Non-smoker Start:27-May-2022 Instruction Type:Patient Education Patient Instructions Indication:Non-smoker Start:02-Apr-2022 Instruction Type:Provider Instructions for Treatment How to Access Health Informa tion Online using Patient Portal and [employer] Indication:Non-smoker Start:02-Apr-2022 Instruction Type:Patient Education Patient Instructions Indication:BMI 26.0-26.9,adult Start:13-Mar-2022 Instruction Type:Provider Instructions for Treatment How to Access Health Informa tion Online using Patient Portal and [employer] Indication:BMI 26.0-26.9,adult Start:13-Mar-2022 Instruction Type:Patient Education Patient Instructions Indication:BMI 26.0-26.9,adult Start:10-Oct-2021 Instruction Type:Provider Instructions for Treatment How to Access Health Informa tion Online using Patient Portal and [employer] Indication:BMI 26.0-26.9,adult Start:10-Oct-2021 Instruction Type:Patient Education Patient Instructions Indication:Non-smoker Start:19-Sep-2021 Instruction Type:Provider Instructions for Treatment How to Access Health Informa tion Online using Patient Portal and [employer] Apps Indication:Non-smoker Start:19-Sep-2021 Instruction Type:Patient Education Patient Instructions Indication:Non-smoker Start:14-Mar-2021 Instruction Type:Provider Instructions for Treatment How to Access Health Informa tion Online using Patient Portal and [employer] Indication:Non-smoker Start:14-Mar-2021 Instruction Type:Patient Education How to Access Health Informa tion Online using Patient Portal and [employer] Indication:Non-smoker Start:18-Sep-2020 Instruction Type:Patient Education Patient Instructions Indication:Non-smoker Start:18-Sep-2020 Instruction Type:Provider Instructions for Treatment Patient Instructions Indication:Non-smoker Start:15-Jul-2020 Instruction Type:Provider Instructions for Treatment How to Access Health Informa tion Online using Patient Portal and [employer] Indication:Non-smoker Start:15-Jul-2020 Instruction Type:Patient Education Patient Instructions Indication:BMI 26.0-26.9,adult Start:08-Jul-2020 Instruction Type:Provider Instructions for Treatment How to Access Health Informa tion Online using Patient Portal and [employer] Indication:BMI 26.0-26.9,adult Start:08-Jul-2020 Instruction Type:Patient Education Patient Instructions Indication:Non-smoker Start:04-Jul-2020 Instruction Type:Provider Instructions for Treatment How to Access Health Informa tion Online using Patient Portal and [employer] Indication:Non-smoker Start:04-Jul-2020 Instruction Type:Patient Education How to Access Health Informa tion Online using Patient Portal and [employer] Indication:Non-smoker Start:03-Jul-2020 Instruction Type:Patient Education Patient Instructions Indication:Non-smoker Start:03-Jul-2020 Instruction Type:Provider Instructions for Treatment Patient Instructions Indication:Non-smoker Start:01-Jul-2020 Instruction Type:Provider Instructions for Treatment How to Access Health Informa tion Online using Patient Portal and [employer] Indication:Non-smoker Start:01-Jul-2020 Instruction Type:Patient Education Patient Instructions Indication:Non-smoker Start:28-Jun-2020 Instruction Type:Provider Instructions for Treatment How to Access Health Informa tion Online using Patient Portal and [employer] Indication:Non-smoker Start:28-Jun-2020 Instruction Type:Patient Education How to Access Health Informa tion Online using Patient Portal and [employer] Indication:Non-smoker Start:12-Apr-2020 Instruction Type:Patient Education [...] tion Online using Patient Portal and [employer] Indication:BMI 27.0-27.9,adult Start:19-Jun-2022 Instruction Type:Patient Education Patient Instructions Indication:Non-smoker Start:27-May-2022 Instruction Type:Provider Instructions for Treatment How to Access Health Informa tion Online using Patient Portal and [employer] Indication:Non-smoker Start:27-May-2022 Instruction Type:Patient Education Patient Instructions Indication:Non-smoker Start:02-Apr-2022 Instruction Type:Provider Instructions for Treatment How to Access Health Informa tion Online using Patient Portal and [employer] Indication:Non-smoker Start:02-Apr-2022 Instruction Type:Patient Education Patient Instructions Indication:BMI 26.0-26.9,adult Start:13-Mar-2022 Instruction Type:Provider Instructions for Treatment How to Access Health Informa tion Online using Patient Portal and [employer] Indication:BMI 26.0-26.9,adult Start:13-Mar-2022 Instruction Type:Patient Education Patient Instructions Indication:BMI 26.0-26.9,adult Start:10-Oct-2021 Instruction Type:Provider Instructions for Treatment How to Access Health Informa tion Online using Patient Portal and [employer] Indication:BMI 26.0-26.9,adult Start:10-Oct-2021 Instruction Type:Patient Education Patient Instructions Indication:Non-smoker Start:19-Sep-2021 Instruction Type:Provider Instructions for Treatment How to Access Health Informa tion Online using Patient Portal and [employer] Indication:Non-smoker Start:19-Sep-2021 Instruction Type:Patient Education Patient Instructions Indication:Non-smoker Start:14-Mar-2021 Instruction Type:Provider Instructions for Treatment How to Access Health Informa tion Online using Patient Portal and [employer] Indication:Non-smoker Start:14-Mar-2021 Instruction Type:Patient Education How to Access Health Informa tion Online using Patient Portal and [employer] Indication:Non-smoker Start:18-Sep-2020 Instruction Type:Patient Education Patient Instructions Indication:Non-smoker Start:18-Sep-2020 Instruction Type:Provider Instructions for Treatment Patient Instructions Indication:Non-smoker Start:15-Jul-2020 Instruction Type:Provider Instructions for Treatment How to Access Health Informa tion Online using Patient Portal and [employer] Indication:Non-smoker Start:15-Jul-2020 Instruction Type:Patient Education Patient Instructions Indication:BMI 26.0-26.9,adult Start:08-Jul-2020 Instruction Type:Provider Instructions for Treatment How to Access Health Informa tion Online using Patient Portal and [employer] Indication:BMI 26.0-26.9,adult Start:08-Jul-2020 Instruction Type:Patient Education Patient Instructions Indication:Non-smoker Start:04-Jul-2020 Instruction Type:Provider Instructions for Treatment How to Access Health Informa tion Online using Patient Portal and [employer] Indication:Non-smoker Start:04-Jul-2020 Instruction Type:Patient Education How to Access Health Informa tion Online using Patient Portal and [employer] Apps Indication:Non-smoker Start:03-Jul-2020 Instruction Type:Patient Education Patient Instructions Indication:Non-smoker Start:03-Jul-2020 Instruction Type:Provider Instructions for Treatment Patient Instructions Indication:Non-smoker Start:01-Jul-2020 Instruction Type:Provider Instructions for Treatment How to Access Health Informa tion Online using Patient Portal and [employer] Apps Indication:Non-smoker Start:01-Jul-2020 Instruction Type:Patient Education Patient Instructions Indication:Non-smoker Start:28-Jun-2020 Instruction Type:Provider Instructions for Treatment How to Access Health Informa tion Online using Patient Portal and [employer] Indication:Non-smoker Start:28-Jun-2020 Instruction Type:Patient Education How to Access Health Informa tion Online using Patient Portal and [employer] Indication:Non-smoker Start:12-Apr-2020 Instruction Type:Patient Education [...] tion Online using Patient Portal and [employer] Indication:BMI 26.0-26.9,adult Start:02-Sep-2022 Instruction Type:Patient Education Patient Instructions Indication:BMI 27.0-27.9,adult Start:19-Jun-2022 Instruction Type:Provider Instructions for Treatment How to Access Health Informa tion Online using Patient Portal and [employer] Indication:BMI 27.0-27.9,adult Start:19-Jun-2022 Instruction Type:Patient Education Patient Instructions Indication:Non-smoker Start:27-May-2022 Instruction Type:Provider Instructions for Treatment How to Access Health Informa tion Online using Patient Portal and [employer] Apps Indication:Non-smoker Start:27-May-2022 Instruction Type:Patient Education Patient Instructions Indication:Non-smoker Start:02-Apr-2022 Instruction Type:Provider Instructions for Treatment How to Access Health Informa tion Online using Patient Portal and [employer] Apps Indication:Non-smoker Start:02-Apr-2022 Instruction Type:Patient Education Patient Instructions Indication:BMI 26.0-26.9,adult Start:13-Mar-2022 Instruction Type:Provider Instructions for Treatment How to Access Health Informa tion Online using Patient Portal and [employer] Indication:BMI 26.0-26.9,adult Start:13-Mar-2022 Instruction Type:Patient Education Patient Instructions Indication:BMI 26.0-26.9,adult Start:10-Oct-2021 Instruction Type:Provider Instructions for Treatment How to Access Health Informa tion Online using Patient Portal and [employer] Indication:BMI 26.0-26.9,adult Start:10-Oct-2021 Instruction Type:Patient Education Patient Instructions Indication:Non-smoker Start:19-Sep-2021 Instruction Type:Provider Instructions for Treatment How to Access Health Informa tion Online using Patient Portal and [employer] Apps Indication:Non-smoker Start:19-Sep-2021 Instruction Type:Patient Education Patient Instructions Indication:Non-smoker Start:14-Mar-2021 Instruction Type:Provider Instructions for Treatment How to Access Health Informa tion Online using Patient Portal and [employer] Indication:Non-smoker Start:14-Mar-2021 Instruction Type:Patient Education How to Access Health Informa tion Online using Patient Portal and [employer] Indication:Non-smoker Start:18-Sep-2020 Instruction Type:Patient Education Patient Instructions Indication:Non-smoker Start:18-Sep-2020 Instruction Type:Provider Instructions for Treatment Patient Instructions Indication:Non-smoker Start:15-Jul-2020 Instruction Type:Provider Instructions for Treatment How to Access Health Informa tion Online using Patient Portal and [employer] Apps Indication:Non-smoker Start:15-Jul-2020 Instruction Type:Patient Education Patient Instructions Indication:BMI 26.0-26.9,adult Start:08-Jul-2020 Instruction Type:Provider Instructions for Treatment How to Access Health Informa tion Online using Patient Portal and [employer] Indication:BMI 26.0-26.9,adult Start:08-Jul-2020 Instruction Type:Patient Education Patient Instructions Indication:Non-smoker Start:04-Jul-2020 Instruction Type:Provider Instructions for Treatment How to Access Health Informa tion Online using Patient Portal and [employer] Indication:Non-smoker Start:04-Jul-2020 Instruction Type:Patient Education How to Access Health Informa tion Online using Patient Portal and [employer] Apps Indication:Non-smoker Start:03-Jul-2020 Instruction Type:Patient Education Patient Instructions Indication:Non-smoker Start:03-Jul-2020 Instruction Type:Provider Instructions for Treatment Patient Instructions Indication:Non-smoker Start:01-Jul-2020 Instruction Type:Provider Instructions for Treatment How to Access Health Informa tion Online using Patient Portal and [employer] Apps Indication:Non-smoker Start:01-Jul-2020 Instruction Type:Patient Education Patient Instructions Indication:Non-smoker Start:28-Jun-2020 Instruction Type:Provider Instructions for Treatment How to Access Health Informa tion Online using Patient Portal and [employer] Indication:Non-smoker Start:28-Jun-2020 Instruction Type:Patient Education How to Access Health Informa tion Online using Patient Portal and [employer] Apps Indication:Non-smoker Start:12-Apr-2020 Instruction Type:Patient Education Patient [...] tion Online using Patient Portal and [employer] Indication:BMI 26.0-26.9,adult Start:02-Sep-2022 Instruction Type:Patient Education Patient Instructions Indication:BMI 27.0-27.9,adult Start:19-Jun-2022 Instruction Type:Provider Instructions for Treatment How to Access Health Informa tion Online using Patient Portal and [employer] Indication:BMI 27.0-27.9,adult Start:19-Jun-2022 Instruction Type:Patient Education Patient Instructions Indication:Non-smoker Start:27-May-2022 Instruction Type:Provider Instructions for Treatment How to Access Health Informa tion Online using Patient Portal and [employer] Apps Indication:Non-smoker Start:27-May-2022 Instruction Type:Patient Education Patient Instructions Indication:Non-smoker Start:02-Apr-2022 Instruction Type:Provider Instructions for Treatment How to Access Health Informa tion Online using Patient Portal and [employer] Indication:Non-smoker Start:02-Apr-2022 Instruction Type:Patient Education Patient Instructions Indication:BMI 26.0-26.9,adult Start:13-Mar-2022 Instruction Type:Provider Instructions for Treatment How to Access Health Informa tion Online using Patient Portal and [employer] Indication:BMI 26.0-26.9,adult Start:13-Mar-2022 Instruction Type:Patient Education Patient Instructions Indication:BMI 26.0-26.9,adult Start:10-Oct-2021 Instruction Type:Provider Instructions for Treatment How to Access Health Informa tion Online using Patient Portal and [employer] Indication:BMI 26.0-26.9,adult Start:10-Oct-2021 Instruction Type:Patient Education Patient Instructions Indication:Non-smoker Start:19-Sep-2021 Instruction Type:Provider Instructions for Treatment How to Access Health Informa tion Online using Patient Portal and [employer] Apps Indication:Non-smoker Start:19-Sep-2021 Instruction Type:Patient Education Patient Instructions Indication:Non-smoker Start:14-Mar-2021 Instruction Type:Provider Instructions for Treatment How to Access Health Informa tion Online using Patient Portal and [employer] Indication:Non-smoker Start:14-Mar-2021 Instruction Type:Patient Education How to Access Health Informa tion Online using Patient Portal and [employer] Indication:Non-smoker Start:18-Sep-2020 Instruction Type:Patient Education Patient Instructions Indication:Non-smoker Start:18-Sep-2020 Instruction Type:Provider Instructions for Treatment Patient Instructions Indication:Non-smoker Start:15-Jul-2020 Instruction Type:Provider Instructions for Treatment How to Access Health Informa tion Online using Patient Portal and [employer] Indication:Non-smoker Start:15-Jul-2020 Instruction Type:Patient Education Patient Instructions Indication:BMI 26.0-26.9,adult Start:08-Jul-2020 Instruction Type:Provider Instructions for Treatment How to Access Health Informa tion Online using Patient Portal and [employer] Indication:BMI 26.0-26.9,adult Start:08-Jul-2020 Instruction Type:Patient Education Patient Instructions Indication:Non-smoker Start:04-Jul-2020 Instruction Type:Provider Instructions for Treatment How to Access Health Informa tion Online using Patient Portal and [employer] Indication:Non-smoker Start:04-Jul-2020 Instruction Type:Patient Education How to Access Health Informa tion Online using Patient Portal and [employer] Indication:Non-smoker Start:03-Jul-2020 Instruction Type:Patient Education Patient Instructions Indication:Non-smoker Start:03-Jul-2020 Instruction Type:Provider Instructions for Treatment Patient Instructions Indication:Non-smoker Start:01-Jul-2020 Instruction Type:Provider Instructions for Treatment How to Access Health Informa tion Online using Patient Portal and [employer] Apps Indication:Non-smoker Start:01-Jul-2020 Instruction Type:Patient Education Patient Instructions Indication:Non-smoker Start:28-Jun-2020 Instruction Type:Provider Instructions for Treatment How to Access Health Informa tion Online using Patient Portal and [employer] Indication:Non-smoker Start:28-Jun-2020 Instruction Type:Patient Education How to Access Health Informa tion Online using Patient Portal and [employer] Indication:Non-smoker Start:12-Apr-2020 Instruction Type:Patient Education [...] Informa tion Online using Patient Portal and [employer] Apps Indication:BMI 26.0-26.9,adult Start:02-Sep-2022 Instruction Type:Patient Education Patient Instructions Indication:BMI 27.0-27.9,adult Start:19-Jun-2022 Instruction Type:Provider Instructions for Treatment How to Access Health Informa tion Online using Patient Portal and [employer] Indication:BMI 27.0-27.9,adult Start:19-Jun-2022 Instruction Type:Patient Education Patient Instructions Indication:Non-smoker Start:27-May-2022 Instruction Type:Provider Instructions for Treatment How to Access Health Informa tion Online using Patient Portal and [employer]rd [employer] Apps Indication:Non-smoker Start:27-May-2022 Instruction Type:Patient Education Patient Instructions Indication:Non-smoker Start:02-Apr-2022 Instruction Type:Provider Instructions for Treatment How to Access Health Informa tion Online using Patient Portal and [employer]rd [employer] Apps Indication:Non-smoker Start:02-Apr-2022 Instruction Type:Patient Education Patient Instructions Indication:BMI 26.0-26.9,adult Start:13-Mar-2022 Instruction Type:Provider Instructions for Treatment How to Access Health Informa tion Online using Patient Portal and [employer]rd [employer] Apps Indication:BMI 26.0-26.9,adult Start:13-Mar-2022 Instruction Type:Patient Education Patient Instructions Indication:BMI 26.0-26.9,adult Start:10-Oct-2021 Instruction Type:Provider Instructions for Treatment How to Access Health Informa tion Online using Patient Portal and [employer]rd [employer] Apps Indication:BMI 26.0-26.9,adult Start:10-Oct-2021 Instruction Type:Patient Education Patient Instructions Indication:Non-smoker Start:19-Sep-2021 Instruction Type:Provider Instructions for Treatment How to Access Health Informa tion Online using Patient Portal and [employer]rd [employer] Apps Indication:Non-smoker Start:19-Sep-2021 Instruction Type:Patient Education Patient Instructions Indication:Non-smoker Start:14-Mar-2021 Instruction Type:Provider Instructions for Treatment How to Access Health Informa tion Online using Patient Portal and [employer]rd [employer] Apps Indication:Non-smoker Start:14-Mar-2021 Instruction Type:Patient Education How to Access Health Informa tion Online using Patient Portal and [employer]rd [employer] Apps Indication:Non-smoker Start:18-Sep-2020 Instruction Type:Patient Education Patient Instructions Indication:Non-smoker Start:18-Sep-2020 Instruction Type:Provider Instructions for Treatment Patient Instructions Indication:Non-smoker Start:15-Jul-2020 Instruction Type:Provider Instructions for Treatment How to Access Health Informa tion Online using Patient Portal and [employer]rd [employer] Apps Indication:Non-smoker Start:15-Jul-2020 Instruction Type:Patient Education Patient Instructions Indication:BMI 26.0-26.9,adult Start:08-Jul-2020 Instruction Type:Provider Instructions for Treatment How to Access Health Informa tion Online using Patient Portal and [employer]rd [employer] Apps Indication:BMI 26.0-26.9,adult Start:08-Jul-2020 Instruction Type:Patient Education Patient Instructions Indication:Non-smoker Start:04-Jul-2020 Instruction Type:Provider Instructions for Treatment How to Access Health Informa tion Online using Patient Portal and [employer]rd [employer] Apps Indication:Non-smoker Start:04-Jul-2020 Instruction Type:Patient Education How to Access Health Informa tion Online using Patient Portal and [employer]rd [employer] Apps Indication:Non-smoker Start:03-Jul-2020 Instruction Type:Patient Education Patient Instructions Indication:Non-smoker Start:03-Jul-2020 Instruction Type:Provider Instructions for Treatment Patient Instructions Indication:Non-smoker Start:01-Jul-2020 Instruction Type:Provider Instructions for Treatment How to Access Health Informa tion Online using Patient Portal and [employer]rd [employer] Apps Indication:Non-smoker Start:01-Jul-2020 Instruction Type:Patient Education Patient Instructions Indication:Non-smoker Start:28-Jun-2020 Instruction Type:Provider Instructions for Treatment How to Access Health Informa tion Online using Patient Portal and [employer]rd [employer] Apps Indication:Non-smoker Start:28-Jun-2020 Instruction Type:Patient Education How to Access Health Informa tion Online using Patient Portal and [employer]rd [employer] Apps Indication:Non-smoker Start:12-Apr-2020 Instruction Type:Patient Education [...] tion Online using Patient Portal and [employer]rd [employer] Apps Indication:BMI 26.0-26.9,adult Start:16-Oct-2022 Instruction Type:Patient Education Patient Instructions Indication:BMI 26.0-26.9,adult Start:02-Sep-2022 Instruction Type:Provider Instructions for Treatment How to Access Health Informa tion Online using Patient Portal and [employer]rd [employer] Apps Indication:BMI 26.0-26.9,adult Start:02-Sep-2022 Instruction Type:Patient Education Patient Instructions Indication:BMI 27.0-27.9,adult Start:19-Jun-2022 Instruction Type:Provider Instructions for Treatment How to Access Health Informa tion Online using Patient Portal and [employer]rd [employer] Apps Indication:BMI 27.0-27.9,adult Start:19-Jun-2022 Instruction Type:Patient Education Patient Instructions Indication:Non-smoker Start:27-May-2022 Instruction Type:Provider Instructions for Treatment How to Access Health Informa tion Online using Patient Portal and [employer]rd [employer] Apps Indication:Non-smoker Start:27-May-2022 Instruction Type:Patient Education Patient Instructions Indication:Non-smoker Start:02-Apr-2022 Instruction Type:Provider Instructions for Treatment How to Access Health Informa tion Online using Patient Portal and [employer]rd [employer] Apps Indication:Non-smoker Start:02-Apr-2022 Instruction Type:Patient Education Patient Instructions Indication:BMI 26.0-26.9,adult Start:13-Mar-2022 Instruction Type:Provider Instructions for Treatment How to Access Health Informa tion Online using Patient Portal and [employer]rd [employer] Apps Indication:BMI 26.0-26.9,adult Start:13-Mar-2022 Instruction Type:Patient Education Patient Instructions Indication:BMI 26.0-26.9,adult Start:10-Oct-2021 Instruction Type:Provider Instructions for Treatment How to Access Health Informa tion Online using Patient Portal and [employer]rd [employer] Apps Indication:BMI 26.0-26.9,adult Start:10-Oct-2021 Instruction Type:Patient Education Patient Instructions Indication:Non-smoker Start:19-Sep-2021 Instruction Type:Provider Instructions for Treatment How to Access Health Informa tion Online using Patient Portal and [employer]rd [employer] Apps Indication:Non-smoker Start:19-Sep-2021 Instruction Type:Patient Education Patient Instructions Indication:Non-smoker Start:14-Mar-2021 Instruction Type:Provider Instructions for Treatment How to Access Health Informa tion Online using Patient Portal and [employer]rd [employer] Apps Indication:Non-smoker Start:14-Mar-2021 Instruction Type:Patient Education How to Access Health Informa tion Online using Patient Portal and [employer]rd [employer] Apps Indication:Non-smoker Start:18-Sep-2020 Instruction Type:Patient Education Patient Instructions Indication:Non-smoker Start:18-Sep-2020 Instruction Type:Provider Instructions for Treatment Patient Instructions Indication:Non-smoker Start:15-Jul-2020 Instruction Type:Provider Instructions for Treatment How to Access Health Informa tion Online using Patient Portal and [employer]rd [employer] Apps Indication:Non-smoker Start:15-Jul-2020 Instruction Type:Patient Education Patient Instructions Indication:BMI 26.0-26.9,adult Start:08-Jul-2020 Instruction Type:Provider Instructions for Treatment How to Access Health Informa tion Online using Patient Portal and [employer]rd [employer] Apps Indication:BMI 26.0-26.9,adult Start:08-Jul-2020 Instruction Type:Patient Education Patient Instructions Indication:Non-smoker Start:04-Jul-2020 Instruction Type:Provider Instructions for Treatment How to Access Health Informa tion Online using Patient Portal and [employer]rd [employer] Apps Indication:Non-smoker Start:04-Jul-2020 Instruction Type:Patient Education How to Access Health Informa tion Online using Patient Portal and [employer]rd [employer] Apps Indication:Non-smoker Start:03-Jul-2020 Instruction Type:Patient Education Patient Instructions Indication:Non-smoker Start:03-Jul-2020 Instruction Type:Provider Instructions for Treatment Patient Instructions Indication:Non-smoker Start:01-Jul-2020 Instruction Type:Provider Instructions for Treatment How to Access Health Informa tion Online using Patient Portal and [employer]rd [employer] Apps Indication:Non-smoker Start:01-Jul-2020 Instruction Type:Patient Education Patient Instructions Indication:Non-smoker Start:28-Jun-2020 Instruction Type:Provider Instructions for Treatment How to Access Health Informa tion Online using Patient Portal and [employer]rd [employer] Apps Indication:Non-smoker Start:28-Jun-2020 Instruction Type:Patient Education How to Access Health Informa tion Online using Patient Portal and [employer]rd [employer] Apps Indication:Non-smoker Start:12-Apr-2020 Instruction Type:Patient Education [...] tion Online using Patient Portal and [employer]rd [employer] Apps Indication:BMI 26.0-26.9,adult Start:16-Oct-2022 Instruction Type:Patient Education Patient Instructions Indication:BMI 26.0-26.9,adult Start:02-Sep-2022 Instruction Type:Provider Instructions for Treatment How to Access Health Informa tion Online using Patient Portal and [employer]rd [employer] Apps Indication:BMI 26.0-26.9,adult Start:02-Sep-2022 Instruction Type:Patient Education Patient Instructions Indication:BMI 27.0-27.9,adult Start:19-Jun-2022 Instruction Type:Provider Instructions for Treatment How to Access Health Informa tion Online using Patient Portal and [employer]rd [employer] Apps Indication:BMI 27.0-27.9,adult Start:19-Jun-2022 Instruction Type:Patient Education Patient Instructions Indication:Non-smoker Start:27-May-2022 Instruction Type:Provider Instructions for Treatment How to Access Health Informa tion Online using Patient Portal and [employer]rd [employer] Apps Indication:Non-smoker Start:27-May-2022 Instruction Type:Patient Education Patient Instructions Indication:Non-smoker Start:02-Apr-2022 Instruction Type:Provider Instructions for Treatment How to Access Health Informa tion Online using Patient Portal and [employer]rd [employer] Apps Indication:Non-smoker Start:02-Apr-2022 Instruction Type:Patient Education Patient Instructions Indication:BMI 26.0-26.9,adult Start:13-Mar-2022 Instruction Type:Provider Instructions for Treatment How to Access Health Informa tion Online using Patient Portal and [employer] Apps Indication:BMI 26.0-26.9,adult Start:13-Mar-2022 Instruction Type:Patient Education Patient Instructions Indication:BMI 26.0-26.9,adult Start:10-Oct-2021 Instruction Type:Provider Instructions for Treatment How to Access Health Informa tion Online using Patient Portal and [employer]rd [employer] Apps Indication:BMI 26.0-26.9,adult Start:10-Oct-2021 Instruction Type:Patient Education Patient Instructions Indication:Non-smoker Start:19-Sep-2021 Instruction Type:Provider Instructions for Treatment How to Access Health Informa tion Online using Patient Portal and [employer]rd [employer] Apps Indication:Non-smoker Start:19-Sep-2021 Instruction Type:Patient Education Patient Instructions Indication:Non-smoker Start:14-Mar-2021 Instruction Type:Provider Instructions for Treatment How to Access Health Informa tion Online using Patient Portal and [employer]rd [employer] Apps Indication:Non-smoker Start:14-Mar-2021 Instruction Type:Patient Education How to Access Health Informa tion Online using Patient Portal and [employer] Apps Indication:Non-smoker Start:18-Sep-2020 Instruction Type:Patient Education Patient Instructions Indication:Non-smoker Start:18-Sep-2020 Instruction Type:Provider Instructions for Treatment Patient Instructions Indication:Non-smoker Start:15-Jul-2020 Instruction Type:Provider Instructions for Treatment How to Access Health Informa tion Online using Patient Portal and [employer]rd [employer] Apps Indication:Non-smoker Start:15-Jul-2020 Instruction Type:Patient Education Patient Instructions Indication:BMI 26.0-26.9,adult Start:08-Jul-2020 Instruction Type:Provider Instructions for Treatment How to Access Health Informa tion Online using Patient Portal and [employer]rd [employer] Apps Indication:BMI 26.0-26.9,adult Start:08-Jul-2020 Instruction Type:Patient Education Patient Instructions Indication:Non-smoker Start:04-Jul-2020 Instruction Type:Provider Instructions for Treatment How to Access Health Informa tion Online using Patient Portal and [employer]rd [employer] Apps Indication:Non-smoker Start:04-Jul-2020 Instruction Type:Patient Education How to Access Health Informa tion Online using Patient Portal and [employer] Apps Indication:Non-smoker Start:03-Jul-2020 Instruction Type:Patient Education Patient Instructions Indication:Non-smoker Start:03-Jul-2020 Instruction Type:Provider Instructions for Treatment Patient Instructions Indication:Non-smoker Start:01-Jul-2020 Instruction Type:Provider Instructions for Treatment How to Access Health Informa tion Online using Patient Portal and [employer]rd [employer] Apps Indication:Non-smoker Start:01-Jul-2020 Instruction Type:Patient Education Patient Instructions Indication:Non-smoker Start:28-Jun-2020 Instruction Type:Provider Instructions for Treatment How to Access Health Informa tion Online using Patient Portal and [employer]rd [employer] Apps Indication:Non-smoker Start:28-Jun-2020 Instruction Type:Patient Education How to Access Health Informa tion Online using Patient Portal and [employer] Apps Indication:Non-smoker Start:12-Apr-2020 Instruction Type:Patient Education [...] tion Online using Patient Portal and [employer]rd [employer] Apps Indication:Non-smoker Start:26-Nov-2022 Instruction Type:Patient Education Patient Instructions Indication:BMI 26.0-26.9,adult Start:16-Oct-2022 Instruction Type:Provider Instructions for Treatment How to Access Health Informa tion Online using Patient Portal and [employer]rd [employer] Apps Indication:BMI 26.0-26.9,adult Start:16-Oct-2022 Instruction Type:Patient Education Patient Instructions Indication:BMI 26.0-26.9,adult Start:02-Sep-2022 Instruction Type:Provider Instructions for Treatment How to Access Health Informa tion Online using Patient Portal and [employer] Apps Indication:BMI 26.0-26.9,adult Start:02-Sep-2022 Instruction Type:Patient Education Patient Instructions Indication:BMI 27.0-27.9,adult Start:19-Jun-2022 Instruction Type:Provider Instructions for Treatment How to Access Health Informa tion Online using Patient Portal and [employer]rd [employer] Apps Indication:BMI 27.0-27.9,adult Start:19-Jun-2022 Instruction Type:Patient Education Patient Instructions Indication:Non-smoker Start:27-May-2022 Instruction Type:Provider Instructions for Treatment How to Access Health Informa tion Online using Patient Portal and [employer]rd [employer] Apps Indication:Non-smoker Start:27-May-2022 Instruction Type:Patient Education Patient Instructions Indication:Non-smoker Start:02-Apr-2022 Instruction Type:Provider Instructions for Treatment How to Access Health Informa tion Online using Patient Portal and [employer]rd [employer] Apps Indication:Non-smoker Start:02-Apr-2022 Instruction Type:Patient Education Patient Instructions Indication:BMI 26.0-26.9,adult Start:13-Mar-2022 Instruction Type:Provider Instructions for Treatment How to Access Health Informa tion Online using Patient Portal and [employer]rd [employer] Apps Indication:BMI 26.0-26.9,adult Start:13-Mar-2022 Instruction Type:Patient Education Patient Instructions Indication:BMI 26.0-26.9,adult Start:10-Oct-2021 Instruction Type:Provider Instructions for Treatment How to Access Health Informa tion Online using Patient Portal and [employer]rd [employer] Apps Indication:BMI 26.0-26.9,adult Start:10-Oct-2021 Instruction Type:Patient Education Patient Instructions Indication:Non-smoker Start:19-Sep-2021 Instruction Type:Provider Instructions for Treatment How to Access Health Informa tion Online using Patient Portal and [employer]rd [employer] Apps Indication:Non-smoker Start:19-Sep-2021 Instruction Type:Patient Education Patient Instructions Indication:Non-smoker Start:14-Mar-2021 Instruction Type:Provider Instructions for Treatment How to Access Health Informa tion Online using Patient Portal and [employer]rd [employer] Apps Indication:Non-smoker Start:14-Mar-2021 Instruction Type:Patient Education How to Access Health Informa tion Online using Patient Portal and [employer]rd [employer] Apps Indication:Non-smoker Start:18-Sep-2020 Instruction Type:Patient Education Patient Instructions Indication:Non-smoker Start:18-Sep-2020 Instruction Type:Provider Instructions for Treatment Patient Instructions Indication:Non-smoker Start:15-Jul-2020 Instruction Type:Provider Instructions for Treatment How to Access Health Informa tion Online using Patient Portal and [employer]rd [employer] Apps Indication:Non-smoker Start:15-Jul-2020 Instruction Type:Patient Education Patient Instructions Indication:BMI 26.0-26.9,adult Start:08-Jul-2020 Instruction Type:Provider Instructions for Treatment How to Access Health Informa tion Online using Patient Portal and [employer]rd [employer] Apps Indication:BMI 26.0-26.9,adult Start:08-Jul-2020 Instruction Type:Patient Education Patient Instructions Indication:Non-smoker Start:04-Jul-2020 Instruction Type:Provider Instructions for Treatment How to Access Health Informa tion Online using Patient Portal and [employer]rd [employer] Apps Indication:Non-smoker Start:04-Jul-2020 Instruction Type:Patient Education How to Access Health Informa tion Online using Patient Portal and [employer]rd [employer] Apps Indication:Non-smoker Start:03-Jul-2020 Instruction Type:Patient Education Patient Instructions Indication:Non-smoker Start:03-Jul-2020 Instruction Type:Provider Instructions for Treatment Patient Instructions Indication:Non-smoker Start:01-Jul-2020 Instruction Type:Provider Instructions for Treatment How to Access Health Informa tion Online using Patient Portal and [employer]rd [employer] Apps Indication:Non-smoker Start:01-Jul-2020 Instruction Type:Patient Education Patient Instructions Indication:Non-smoker Start:28-Jun-2020 Instruction Type:Provider Instructions for Treatment How to Access Health Informa tion Online using Patient Portal and [employer]rd [employer] Apps Indication:Non-smoker Start:28-Jun-2020 Instruction Type:Patient Education How to Access Health Informa tion Online using Patient Portal and [employer]rd [employer] Apps Indication:Non-smoker Start:12-Apr-2020 Instruction Type:Patient Education [...] tion Online using Patient Portal and [employer]rd [employer] Apps Indication:Non-smoker Start:26-Nov-2022 Instruction Type:Patient Education Patient Instructions Indication:BMI 26.0-26.9,adult Start:16-Oct-2022 Instruction Type:Provider Instructions for Treatment How to Access Health Informa tion Online using Patient Portal and [employer]rd [employer] Apps Indication:BMI 26.0-26.9,adult Start:16-Oct-2022 Instruction Type:Patient Education Patient Instructions Indication:BMI 26.0-26.9,adult Start:02-Sep-2022 Instruction Type:Provider Instructions for Treatment How to Access Health Informa tion Online using Patient Portal and [employer]rd [employer] Apps Indication:BMI 26.0-26.9,adult Start:02-Sep-2022 Instruction Type:Patient Education Patient Instructions Indication:BMI 27.0-27.9,adult Start:19-Jun-2022 Instruction Type:Provider Instructions for Treatment How to Access Health Informa tion Online using Patient Portal and [employer]rd [employer] Apps Indication:BMI 27.0-27.9,adult Start:19-Jun-2022 Instruction Type:Patient Education Patient Instructions Indication:Non-smoker Start:27-May-2022 Instruction Type:Provider Instructions for Treatment How to Access Health Informa tion Online using Patient Portal and [employer]rd [employer] Apps Indication:Non-smoker Start:27-May-2022 Instruction Type:Patient Education Patient Instructions Indication:Non-smoker Start:02-Apr-2022 Instruction Type:Provider Instructions for Treatment How to Access Health Informa tion Online using Patient Portal and [employer]rd [employer] Apps Indication:Non-smoker Start:02-Apr-2022 Instruction Type:Patient Education Patient Instructions Indication:BMI 26.0-26.9,adult Start:13-Mar-2022 Instruction Type:Provider Instructions for Treatment How to Access Health Informa tion Online using Patient Portal and [employer]rd [employer] Apps Indication:BMI 26.0-26.9,adult Start:13-Mar-2022 Instruction Type:Patient Education Patient Instructions Indication:BMI 26.0-26.9,adult Start:10-Oct-2021 Instruction Type:Provider Instructions for Treatment How to Access Health Informa tion Online using Patient Portal and [employer]rd [employer] Apps Indication:BMI 26.0-26.9,adult Start:10-Oct-2021 Instruction Type:Patient Education Patient Instructions Indication:Non-smoker Start:19-Sep-2021 Instruction Type:Provider Instructions for Treatment How to Access Health Informa tion Online using Patient Portal and [employer] Apps Indication:Non-smoker Start:19-Sep-2021 Instruction Type:Patient Education Patient Instructions Indication:Non-smoker Start:14-Mar-2021 Instruction Type:Provider Instructions for Treatment How to Access Health Informa tion Online using Patient Portal and [employer] Apps Indication:Non-smoker Start:14-Mar-2021 Instruction Type:Patient Education How to Access Health Informa tion Online using Patient Portal and [employer]rd [employer] Apps Indication:Non-smoker Start:18-Sep-2020 Instruction Type:Patient Education Patient Instructions Indication:Non-smoker Start:18-Sep-2020 Instruction Type:Provider Instructions for Treatment Patient Instructions Indication:Non-smoker Start:15-Jul-2020 Instruction Type:Provider Instructions for Treatment How to Access Health Informa tion Online using Patient Portal and [employer] Apps Indication:Non-smoker Start:15-Jul-2020 Instruction Type:Patient Education Patient Instructions Indication:BMI 26.0-26.9,adult Start:08-Jul-2020 Instruction Type:Provider Instructions for Treatment How to Access Health Informa tion Online using Patient Portal and [employer]rd [employer] Apps Indication:BMI 26.0-26.9,adult Start:08-Jul-2020 Instruction Type:Patient Education Patient Instructions Indication:Non-smoker Start:04-Jul-2020 Instruction Type:Provider Instructions for Treatment How to Access Health Informa tion Online using Patient Portal and [employer] Apps Indication:Non-smoker Start:04-Jul-2020 Instruction Type:Patient Education How to Access Health Informa tion Online using Patient Portal and [employer] Apps Indication:Non-smoker Start:03-Jul-2020 Instruction Type:Patient Education Patient Instructions Indication:Non-smoker Start:03-Jul-2020 Instruction Type:Provider Instructions for Treatment Patient Instructions Indication:Non-smoker Start:01-Jul-2020 Instruction Type:Provider Instructions for Treatment How to Access Health Informa tion Online using Patient Portal and [employer] Apps Indication:Non-smoker Start:01-Jul-2020 Instruction Type:Patient Education Patient Instructions Indication:Non-smoker Start:28-Jun-2020 Instruction Type:Provider Instructions for Treatment How to Access Health Informa tion Online using Patient Portal and [employer] Apps Indication:Non-smoker Start:26-Feb-2021 Instruction Type:Patient Education How to Access Health Informa tion Online using Patient Portal and [employer] Apps Indication:Non-smoker Start:12-Apr-2020 Instruction Type:Patient Education [...] tion Online using Patient Portal and [employer] Apps Indication:Non-smoker Start:26-Nov-2022 Instruction Type:Patient Education Patient Instructions Indication:BMI 26.0-26.9,adult Start:16-Oct-2022 Instruction Type:Provider Instructions for Treatment How to Access Health Informa tion Online using Patient Portal and [employer] Apps Indication:BMI 26.0-26.9,adult Start:16-Oct-2022 Instruction Type:Patient Education Patient Instructions Indication:BMI 26.0-26.9,adult Start:02-Sep-2022 Instruction Type:Provider Instructions for Treatment How to Access Health Informa tion Online using Patient Portal and [employer] Apps Indication:BMI 26.0-26.9,adult Start:02-Sep-2022 Instruction Type:Patient Education Patient Instructions Indication:BMI 27.0-27.9,adult Start:19-Jun-2022 Instruction Type:Provider Instructions for Treatment How to Access Health Informa tion Online using Patient Portal and 3rd [employer] Indication:BMI 27.0-27.9,adult Start:19-Jun-2022 Instruction Type:Patient Education Patient Instructions Indication:Non-smoker Start:27-May-2022 Instruction Type:Provider Instructions for Treatment How to Access Health Informa tion Online using Patient Portal and 3rd [employer] Indication:Non-smoker Start:27-May-2022 Instruction Type:Patient Education Patient Instructions Indication:Non-smoker Start:02-Apr-2022 Instruction Type:Provider Instructions for Treatment How to Access Health Informa tion Online using Patient Portal and 3rd [employer] Indication:Non-smoker Start:02-Apr-2022 Instruction Type:Patient Education Patient Instructions Indication:BMI 26.0-26.9,adult Start:13-Mar-2022 Instruction Type:Provider Instructions for Treatment How to Access Health Informa tion Online using Patient Portal and 3rd [employer] Indication:BMI 26.0-26.9,adult Start:13-Mar-2022 Instruction Type:Patient Education Patient Instructions Indication:BMI 26.0-26.9,adult Start:10-Oct-2021 Instruction Type:Provider Instructions for Treatment How to Access Health Informa tion Online using Patient Portal and 3rd [employer] Indication:BMI 26.0-26.9,adult Start:10-Oct-2021 Instruction Type:Patient Education Patient Instructions Indication:Non-smoker Start:19-Sep-2021 Instruction Type:Provider Instructions for Treatment How to Access Health Informa tion Online using Patient Portal and 3rd [employer] Indication:Non-smoker Start:19-Sep-2021 Instruction Type:Patient Education Patient Instructions Indication:Non-smoker Start:14-Mar-2021 Instruction Type:Provider Instructions for Treatment How to Access Health Informa tion Online using Patient Portal and 3rd [employer] Indication:Non-smoker Start:14-Mar-2021 Instruction Type:Patient Education How to Access Health Informa tion Online using Patient Portal and 3rd [employer] Indication:Non-smoker Start:18-Sep-2020 Instruction Type:Patient Education Patient Instructions Indication:Non-smoker Start:18-Sep-2020 Instruction Type:Provider Instructions for Treatment Patient Instructions Indication:Non-smoker Start:15-Jul-2020 Instruction Type:Provider Instructions for Treatment How to Access Health Informa tion Online using Patient Portal and 3rd [employer] Indication:Non-smoker Start:15-Jul-2020 Instruction Type:Patient Education Patient Instructions Indication:BMI 26.0-26.9,adult Start:08-Jul-2020 Instruction Type:Provider Instructions for Treatment How to Access Health Informa tion Online using Patient Portal and 3rd [employer] Indication:BMI 26.0-26.9,adult Start:08-Jul-2020 Instruction Type:Patient Education Patient Instructions Indication:Non-smoker Start:04-Jul-2020 Instruction Type:Provider Instructions for Treatment How to Access Health Informa tion Online using Patient Portal and 3rd [employer] Indication:Non-smoker Start:04-Jul-2020 Instruction Type:Patient Education How to Access Health Informa tion Online using Patient Portal and 3rd [employer] Indication:Non-smoker Start:03-Jul-2020 Instruction Type:Patient Education Patient Instructions Indication:Non-smoker Start:03-Jul-2020 Instruction Type:Provider Instructions for Treatment Patient Instructions Indication:Non-smoker Start:01-Jul-2020 Instruction Type:Provider Instructions for Treatment How to Access Health Informa tion Online using Patient Portal and 3rd [employer] Indication:Non-smoker Start:01-Jul-2020 Instruction Type:Patient Education Patient Instructions Indication:Non-smoker Start:28-Jun-2020 Instruction Type:Provider Instructions for Treatment How to Access Health Informa tion Online using Patient Portal and 3rd [employer] Indication:Non-smoker Start:28-Jun-2020 Instruction Type:Patient Education How to Access Health Informa tion Online using Patient Portal and 3rd [employer] Indication:Non-smoker Start:12-Apr-2020 Instruction Type:Patient Education [...] W/LEAST 12 LDS W/I&R Allison Shankar PA-C [address] [address] [facility] [place] [address] [place] [id number] Referral ID Status Reason Start Date Expiration Date V isits Requested Visits Authorized [id number] Closed Auto-Generate d Referral 11/02/2022 11/02/2023 1 [facility] Outpatient Procedure (Routine) - New Request Specialty Diagnoses / Procedures Referred By Little mike Referred To Contact [facility] Diagnoses Seizures (HCC) Procedures EPIL EEG LONG EEG EXTENDED MONITORING 61-119 MINUTES ELECTROENCEPHALOGRAM REC COMA/SLEEP ONLY Nena Smith APRN.CNP [address] [place] [id number] [facility] [place] [facility] [place] [address] Referral ID Status Reason Start Date Expiration Date Visits Requested Visits Authorized [id number] New Request Auto-Generat ed Referral 12/22/2023 12/21/2024 1 1 [facility] ([facility])No reason for referral information available[facility] Work Phone: Reason for visit Narrative* MRI/CT (Routine) - Closed Specialty Diagnoses / Procedures Referred By Little mike Referred To Contact MR IMAGING Diagnoses Brain lesion Procedures MRI BRAIN WO/W IVCON MRI BRAIN BRAIN STEM W/O W/CONTRAST MATERIAL Codie Soto MD [address] [place] [address] Phone: tel: fax: [facility] [place] [address] Referral ID Status Reason Start Date Expiration Date V isits Requested Visits Authorized [id number] Closed Auto-Generate d Referral 04/24/2024 05/24/2025 1 1 [facility] Summary Purpose Family History No Family History Records Found Relationship Condition Age at Onset Recorded Date/T yobany mother Coronary artery disease Unknown Cardiac disease Unknown Hypertension Unknown Myocardial infarction Unknown father Coronary artery disease Unknown Cerebrovascular accident (CVA) Unknown Advance Directives No Advanced Directives Records Found Advance Directive Response Recorded Date/ Time Living Will No October 08, 2021 4 :25pm Power of Box Stacker No October 08, 2021 4:25pm Advance Directive Response Recorded Date/ Time Living Will No October 08, 2021 3 :25pm Power of Box Stacker No October 08, 2021 3:25pm Advance Directive Response Recorded Date/ Time Living Will No June 02 5:12am Power of Box Stacker No June 02, 2022 5:12am Advance Directive Response Recorded Date/ Time Living Will No June 02 7:36am Power of Box Stacker No June 02, 2022 7:36am Advance Directive Response Recorded Date/ Time Living Will No June 08 12:43pm Power of Box Stacker No June 08, 2022 12:43pm Advance Directive Response Recorded Date/ Time Living Will No June 08 9:43pm Power of Box Stacker No June 08, 2022 9:43pm Advance Directive Response Recorded Date/ Time Living Will No June 08 10:43pm Power of Box Stacker No June 08, 2022 10:43pm Advance Directive Response Recorded Date/ Time Living Will No June 08 10:43pm Do you have a Healthcare Power of Box Stacker? No June 08, 2022 10:43pm Instructions Name [...] Informa tion Online using Patient Portal and [employer] Indication:Non-smoker Start:12-Apr-2020 Instruction Type:Patient Education [...] Informa tion Online using Patient Portal and [employer] Indication:Non-smoker Start:12-Apr-2020 Instruction Type:Patient Education [...] Informa tion Online using Patient Portal and [employer] Indication:Non-smoker Start:12-Apr-2020 Instruction Type:Patient Education [...] tion Online using Patient Portal and 3rd [employer] Indication:Non-smoker Start:12-Apr-2020 Instruction Type:Patient Education [...] tion Online using Patient Portal and 3rd [employer] Indication:Non-smoker Start:28-Jun-2020 Instruction Type:Patient Education How to Access Health Informa tion Online using Patient Portal and 3rd [employer] Indication:Non-smoker Start:12-Apr-2020 Instruction Type:Patient Education [...] tion Online using Patient Portal and 3rd [employer] Indication:Non-smoker Start:01-Jul-2020 Instruction Type:Patient Education Patient Instructions Indication:Non-smoker Start:28-Jun-2020 Instruction Type:Provider Instructions for Treatment How to Access Health Informa tion Online using Patient Portal and 3rd [employer] Indication:Non-smoker Start:28-Jun-2020 Instruction Type:Patient Education How to Access Health Informa tion Online using Patient Portal and 3rd [employer] Indication:Non-smoker Start:12-Apr-2020 Instruction Type:Patient Education [...] tion Online using Patient Portal and 3rd [employer] Indication:Non-smoker Start:03-Jul-2020 Instruction Type:Patient Education Patient Instructions Indication:Non-smoker Start:03-Jul-2020 Instruction Type:Provider Instructions for Treatment Patient Instructions Indication:Non-smoker Start:01-Jul-2020 Instruction Type:Provider Instructions for Treatment How to Access Health Informa tion Online using Patient Portal and 3rd [employer] Indication:Non-smoker Start:01-Jul-2020 Instruction Type:Patient Education Patient Instructions Indication:Non-smoker Start:28-Jun-2020 Instruction Type:Provider Instructions for Treatment How to Access Health Informa tion Online using Patient Portal and 3rd [employer] Indication:Non-smoker Start:28-Jun-2020 Instruction Type:Patient Education How to Access Health Informa tion Online using Patient Portal and 3rd [employer] Indication:Non-smoker Start:12-Apr-2020 Instruction Type:Patient Education [...] tion Online using Patient Portal and 3rd [employer] Indication:Non-smoker Start:04-Jul-2020 Instruction Type:Patient Education How to Access Health Informa tion Online using Patient Portal and 3rd [employer] Indication:Non-smoker Start:03-Jul-2020 Instruction Type:Patient Education Patient Instructions Indication:Non-smoker Start:03-Jul-2020 Instruction Type:Provider Instructions for Treatment Patient Instructions Indication:Non-smoker Start:01-Jul-2020 Instruction Type:Provider Instructions for Treatment How to Access Health Informa tion Online using Patient Portal and 3rd [employer] Indication:Non-smoker Start:01-Jul-2020 Instruction Type:Patient Education Patient Instructions Indication:Non-smoker Start:28-Jun-2020 Instruction Type:Provider Instructions for Treatment How to Access Health Informa tion Online using Patient Portal and 3rd [employer] Indication:Non-smoker Start:28-Jun-2020 Instruction Type:Patient Education How to Access Health Informa tion Online using Patient Portal and 3rd [employer] Indication:Non-smoker Start:12-Apr-2020 Instruction Type:Patient Education [...] tion Online using Patient Portal and 3rd [employer] Indication:BMI 26.0-26.9,adult Start:08-Jul-2020 Instruction Type:Patient Education Patient Instructions Indication:Non-smoker Start:04-Jul-2020 Instruction Type:Provider Instructions for Treatment How to Access Health Informa tion Online using Patient Portal and 3rd [employer] Indication:Non-smoker Start:04-Jul-2020 Instruction Type:Patient Education How to Access Health Informa tion Online using Patient Portal and 3rd [employer] Indication:Non-smoker Start:03-Jul-2020 Instruction Type:Patient Education Patient Instructions Indication:Non-smoker Start:03-Jul-2020 Instruction Type:Provider Instructions for Treatment Patient Instructions Indication:Non-smoker Start:01-Jul-2020 Instruction Type:Provider Instructions for Treatment How to Access Health Informa tion Online using Patient Portal and 3rd [employer] Indication:Non-smoker Start:01-Jul-2020 Instruction Type:Patient Education Patient Instructions Indication:Non-smoker Start:28-Jun-2020 Instruction Type:Provider Instructions for Treatment How to Access Health Informa tion Online using Patient Portal and 3rd [employer] Indication:Non-smoker Start:28-Jun-2020 Instruction Type:Patient Education How to Access Health Informa tion Online using Patient Portal and 3rd [employer] Indication:Non-smoker Start:12-Apr-2020 Instruction Type:Patient Education [...] tion Online using Patient Portal and 3rd [employer] Indication:BMI 26.0-26.9,adult Start:08-Jul-2020 Instruction Type:Patient Education Patient Instructions Indication:Non-smoker Start:04-Jul-2020 Instruction Type:Provider Instructions for Treatment How to Access Health Informa tion Online using Patient Portal and 3rd [employer] Indication:Non-smoker Start:04-Jul-2020 Instruction Type:Patient Education How to Access Health Informa tion Online using Patient Portal and 3rd [employer] Indication:Non-smoker Start:03-Jul-2020 Instruction Type:Patient Education Patient Instructions Indication:Non-smoker Start:03-Jul-2020 Instruction Type:Provider Instructions for Treatment Patient Instructions Indication:Non-smoker Start:01-Jul-2020 Instruction Type:Provider Instructions for Treatment How to Access Health Informa tion Online using Patient Portal and 3rd [employer] Indication:Non-smoker Start:01-Jul-2020 Instruction Type:Patient Education Patient Instructions Indication:Non-smoker Start:28-Jun-2020 Instruction Type:Provider Instructions for Treatment How to Access Health Informa tion Online using Patient Portal and 3rd [employer] Indication:Non-smoker Start:28-Jun-2020 Instruction Type:Patient Education How to Access Health Informa tion Online using Patient Portal and 3rd [employer] Indication:Non-smoker Start:12-Apr-2020 Instruction Type:Patient Education [...] tion Online using Patient Portal and 3rd [employer] Indication:Non-smoker Start:15-Jul-2020 Instruction Type:Patient Education Patient Instructions Indication:BMI 26.0-26.9,adult Start:08-Jul-2020 Instruction Type:Provider Instructions for Treatment How to Access Health Informa tion Online using Patient Portal and 3rd [employer] Indication:BMI 26.0-26.9,adult Start:08-Jul-2020 Instruction Type:Patient Education Patient Instructions Indication:Non-smoker Start:04-Jul-2020 Instruction Type:Provider Instructions for Treatment How to Access Health Informa tion Online using Patient Portal and 3rd [employer] Indication:Non-smoker Start:04-Jul-2020 Instruction Type:Patient Education How to Access Health Informa tion Online using Patient Portal and 3rd [employer] Indication:Non-smoker Start:03-Jul-2020 Instruction Type:Patient Education Patient Instructions Indication:Non-smoker Start:03-Jul-2020 Instruction Type:Provider Instructions for Treatment Patient Instructions Indication:Non-smoker Start:01-Jul-2020 Instruction Type:Provider Instructions for Treatment How to Access Health Informa tion Online using Patient Portal and 3rd [employer] Indication:Non-smoker Start:01-Jul-2020 Instruction Type:Patient Education Patient Instructions Indication:Non-smoker Start:28-Jun-2020 Instruction Type:Provider Instructions for Treatment How to Access Health Informa tion Online using Patient Portal and 3rd [employer] Indication:Non-smoker Start:28-Jun-2020 Instruction Type:Patient Education How to Access Health Informa tion Online using Patient Portal and 3rd [employer] Indication:Non-smoker Start:12-Apr-2020 Instruction Type:Patient Education [...] tion Online using Patient Portal and 3rd [employer] Indication:Non-smoker Start:15-Jul-2020 Instruction Type:Patient Education Patient Instructions Indication:BMI 26.0-26.9,adult Start:08-Jul-2020 Instruction Type:Provider Instructions for Treatment How to Access Health Informa tion Online using Patient Portal and 3rd [employer] Indication:BMI 26.0-26.9,adult Start:08-Jul-2020 Instruction Type:Patient Education Patient Instructions Indication:Non-smoker Start:04-Jul-2020 Instruction Type:Provider Instructions for Treatment How to Access Health Informa tion Online using Patient Portal and 3rd [employer] Indication:Non-smoker Start:04-Jul-2020 Instruction Type:Patient Education How to Access Health Informa tion Online using Patient Portal and 3rd [employer] Indication:Non-smoker Start:03-Jul-2020 Instruction Type:Patient Education Patient Instructions Indication:Non-smoker Start:03-Jul-2020 Instruction Type:Provider Instructions for Treatment Patient Instructions Indication:Non-smoker Start:01-Jul-2020 Instruction Type:Provider Instructions for Treatment How to Access Health Informa tion Online using Patient Portal and 3rd [employer] Indication:Non-smoker Start:01-Jul-2020 Instruction Type:Patient Education Patient Instructions Indication:Non-smoker Start:28-Jun-2020 Instruction Type:Provider Instructions for Treatment How to Access Health Informa tion Online using Patient Portal and 3rd [employer] Indication:Non-smoker Start:28-Jun-2020 Instruction Type:Patient Education How to Access Health Informa tion Online using Patient Portal and 3rd [employer] Indication:Non-smoker Start:12-Apr-2020 Instruction Type:Patient Education [...] CAD (coronary artery disease) Chief Complaint STENT CONSULT ED STROKE/PT HAS RX Cerebral infarction, unspecified Reason for Visit Acute cerebrovascula r accident (CVA) [id number] HLD (hyperlipidemia) HTN (hypertension) Tobacco abuse Chief Complaint Admit Date 1 Y FU November 24, 2024 9:00 am Reason for Visit Admit Date Dyspnea on exertion November 24, 2024 9:00 am History of heart artery stent November 24, 2024 9:00am Atherosclerosis of [place] co ronary artery of [place] heart without angina November 24, 2024 9:00am HLD (hyperlipidemia) November 24, 2024 9:0 0am HTN (hypertension) November 24, 2024 9:00 am Chief Complaint Admit Date 1 Y November 24, 2024 9:00 am E ORDERS November 24, 2024 9:54 am Reason for Visit Admit Date Dyspnea on exertion November 24, 2024 9:00 am Atherosclerosis of [place] co ronary artery of [place] heart without angina November 24, 2024 9:00am History of heart artery stent November 24, 2024 9:00am HLD (hyperlipidemia) November 24, 2024 9:0 0am HTN (hypertension) November 24, 2024 9:00 am Chief Complaint Admit Date 1 Y FU November 24, 2024 9:00 am E ORDERS November 24, 2024 9:54 am CHEST PAIN, DYSPNEA ON EXERTION, HISTORY OF CAD December 19, 2024 6:40am CHEST PAIN, DYSPNEA ON EXERTION, HISTORY OF CAD December 19, 2024 5:13pm Reason for Referral Specialty Diagnoses / Procedures Referred By Little t Referred To Contact MR IMAGING Diagnoses Cerebral infarction, unspecified mechanism (HCC) Procedures MRI BRAIN WO/W IVCON MRI BRAIN BRAIN STEM W/[place] [address] [place] [id number] Mr Imaging Referral ID Status Reason Start Date Expiration Date Visits Requested Visits Authorized [id number] Pending Review Auto-Generat ed Referral 06/25/2022 07/25/2023 1 1 Specialty Diagnoses / Procedures Referred By Little t Referred [facility] Contact [facility] Diagnoses Arterial ischemic stroke (HCC) Procedures ECHO TRANSESOPHAGEAL ECHO TRANSESOPHAG R-T 2D W/PRB IMG ACQUISJ I&R [facility] DO [address] [place] [address] [facility] [address] [address] Referral ID Status Reason Start Date Expiration Date Visits Requested Visits Authorized [id number] Pending Review Auto-Generat ed Referral 06/24/2022 06/24/2023 1 1 Specialty Diagnoses / Procedures Referred By Contac t Referred To Contact [facility] Diagnoses Arterial ischemic stroke (HCC) Procedures CONSULT TO PHYSICAL THERAPY PHYSICAL THERAPY EVALUATION HIGH COMPLEX 45 MINS Rad [facility] DO [address] [place] [address] [facility] [address] [address] Referral ID Status Reason Start Date Expiration Date Visits Requested Visits Authorized [id number] Pending Review Auto-Generat ed Referral 08/25/2022 08/25/2023 1 1 Specialty Diagnoses / Procedures Referred By Contac t Referred To Contact [facility] Diagnoses Arterial ischemic stroke (HCC) Procedures 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 THERAPY EVAL HIGH COMPLEX 60 MINS [facility] DO [address] [place] [address] [facility] [address] [address] Referral ID Status Reason Start Date Expiration Date Visits Requested Visits Authorized [id number] Pending Review Auto-Generat ed Referral 08/25/2022 08/25/2023 1 1 Referral ID Status Reason Start Date Expiration Date Visits Requested Visits Authorized [id number] Authorized Auto-Generat ed Referral 08/25/2022 09/24/2023 1 1 Specialty Diagnoses / Procedures Referred By Contac t Referred To Contact [facility] Diagnoses Arterial ischemic stroke (HCC) Procedures CONSULT TO SPEECH THERAPY OFFICE/OUTPATIENT NEW HIGH MDM 60-74 MINUTES [facility], [address] [place] [address] [facility] [address] [address] Referral ID Status Reason Start Date Expiration Date Visits Requested Visits Authorized [id number] Pending Review Auto-Generat ed Referral 08/25/2022 08/25/2023 1 1 Specialty Diagnoses / Procedures Referred By Contac t Referred To Contact MR IMAGING Diagnoses Glioma (HCC) Procedures MRI BRAIN WO/W IVCON MRI BRAIN BRAIN STEM W/O W/CONTRAST MATERIAL Huizar-Armstrong, Codie, MD [address] [place] [address] Mr Imaging Referral ID Status Reason Start Date Expiration Date Visits Requested Visits Authorized [id number] Pending Review Auto-Generat ed Referral 11/12/2022 12/12/2023 1 1 Specialty Diagnoses / Procedures Referred By Contac t Referred To Contact Neurology Diagnoses Brain mass Alexia Lesion of brain Speech disturbance, unspecified type Visual field defect Confusion Procedures CONSULT TO NEUROLOGY OFFICE/OUTPATIENT [facility] 60-74 MINUTES Codie Soto MD [address] [place] [address] Referral ID Status Reason Start Date Expiration Date Visits Requested Visits Authorized [id number] Pending Review PCP Requested Referral 11/17/2022 11/17/2023 1 1 Specialty Diagnoses / Procedures Referred By Contac t Referred To Contact Infectious Diseases Diagnoses Brain mass Alexia Lesion of brain Speech disturbance, unspecified type Visual field defect Confusion Procedures CONSULT TO INFECTIOUS DISEASES OFFICE/OUTPATIENT [facility] 60-74 MINUTES Codie Soto MD [address] [place] [address] Referral ID Status Reason Start Date Expiration Date Visits Requested Visits Authorized [id number] Pending Review PCP Requested Referral 11/17/2022 11/17/2023 1 1 Specialty Diagnoses / Procedures Referred By Contac t Referred To Contact Ophthalmology Diagnoses Brain mass Alexia Lesion of brain Speech disturbance, unspecified type Visual field defect Confusion Procedures CONSULT TO OPHTHALMOLOGY OFFICE/OUTPATIENT [facility] 60-74 MINUTES Codie Soto MD [address] [place] [id number] Referral ID Status Reason Start Date Expiration Date Visits Requested Visits Authorized [id number] Pending Review PCP Requested Referral 11/17/2022 11/17/2023 1 1 Specialty Diagnoses / Procedures Referred By Contac t Referred To Contact Ophthalmology Diagnoses Brain mass Alexia Lesion of brain Speech disturbance, unspecified type Visual field defect Confusion Procedures CONSULT TO OPHTHALMOLOGY OFFICE/OUTPATIENT NEW HIGH MDM 60-74 MINUTES Codie Soto MD [address] [address] [facility] [address] [place] [address] Referral ID Status Reason Start Date Expiration Date Visits Requested Visits Authorized [id number] Pending Review PCP Requested Referral 11/17/2022 11/17/2023 1 1 Specialty Diagnoses / Procedures Referred By Contac t Referred To Contact [facility] Diagnoses Brain lesion Procedures CONSULT TO PHYSICAL THERAPY PHYSICAL THERAPY EVALUATION HIGH COMPLEX 45 MINS Harlan Lozano MD [address] [facility] 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) Procedures MRI BRAIN WO/W IVCON MRI BRAIN BRAIN STEM W/O W/CONTRAST MATERIAL Codie Soto MD [address] [place] [id number] Mr [facility] [place] [address] Referral ID Status Reason Start Date Expiration Date Visits Requested Visits Authorized [id number] Pending Review Auto-Generat ed Referral 03/24/2024 1 1 Specialty Diagnoses / Procedures Referred By Contac t Referred To Contact MR IMAGING Diagnoses Brain lesion 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) Procedures MRI THORACIC SPINE WO/W IVCON MRI SPINAL CANAL THORACIC W/O & W/CONTR MATRL Codie Soto MD [address] [address] Mr Imaging [facility] Referral ID Status Reason Start Date Expiration Date Visits Requested Visits Authorized [id number] Pending Review Auto-Generat ed Referral 3 03/24/2024 1 1 Specialty Diagnoses / Procedures Referred By Contac t Referred To Contact MR IMAGING Diagnoses Brain lesion 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) Procedures MRI CERVICAL SPINE WO/W IVCON MRI SPINAL CANAL CERVICAL W/O & W/CONTR Codie Milner MD [address] [place] [address] Mr Imaging [place] [address] Referral ID Status Reason Start Date Expiration Date Visits Requested Visits Authorized [id number] Pending Review Auto-Generat ed Referral 3 03/24/2024 1 1 Specialty Diagnoses / Procedures Referred By Contac t Referred To Contact MR IMAGING Diagnoses Lesion of brain 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 (HCC) Procedures MRI LUMBAR SPINE WO/W IVCON MRI SPINAL CANAL LUMBAR W/O & W/CONTR Codie Milner MD [address] [place] [address] Mr Imaging [place] [address] Referral ID Status Reason Start Date Expiration Date V isits Requested Visits Authorized [id number] Closed Auto-Generate d Referral 12/31/2022 01/30/2024 1 1 Specialty Diagnoses / Procedures Referred By Contac t Referred To Contact MR IMAGING Diagnoses Neoplasm Procedures MRI BRAIN WO/W IVCON MRI BRAIN BRAIN STEM W/O W/CONTRAST MATERIAL Rad Pro DO [address] [place] [address] Mr Imaging [facility] Referral ID Status Reason Start Date Expiration Date V isits Requested Visits Authorized [id number] Closed Auto-Generate d Referral 08/31/2022 08/06/2023 1 1 Specialty Diagnoses / Procedures Referred By Contac t Referred To Contact MR IMAGING Diagnoses Cerebral infarction, unspecified mechanism (HCC) Procedures MRI BRAIN WO/W IVCON MRI BRAIN BRAIN STEM W/O W/CONTRAST MATERIAL Rad Pro DO [address] [place] [address] Mr Imaging [place] [address] Referral ID Status Reason Start Date Expiration Date V isits Requested Visits Authorized [id number] Closed Auto-Generate d Referral 06/25/2022 07/25/2023 1 1 Specialty Diagnoses / Procedures Referred By Contac t Referred To Contact MR IMAGING Diagnoses Glioma (HCC) Procedures MRI BRAIN WO/W IVCON MRI BRAIN BRAIN STEM W/O W/CONTRAST MATERIAL Codie Soto MD [address] [place] [address] Mr Imaging [place] [address] Referral ID Status Reason Start Date Expiration Date V isits Requested Visits Authorized [id number] Closed Auto-Generate d Referral 11/12/2022 12/12/2023 1 1 Referral ID Status Reason Start Date Expiration Date V isits Requested Visits Authorized [id number] Closed Auto-Generate d Referral 08/25/2022 09/24/2023 1 1 Specialty Diagnoses / Procedures Referred By Contac t Referred To Contact CT IMAGING Diagnoses Lesion of brain Procedures CT CHEST W IVCON DIAGNOSTIC COMPUTED TOMOGRAPHY THORAX W/CONTRAST Codie Soto MD [address] [place] [address] Ct Imaging [place] [address] Referral ID Status Reason Start Date Expiration Date V isits Requested Visits Authorized [id number] Closed Auto-Generate d Referral 11/18/2022 12/18/2023 1 1 Specialty Diagnoses / Procedures Referred By Contac t Referred To Contact CT IMAGING Diagnoses Lesion of brain Procedures CT ABD/PEL W IVCON CT ABD & PELVIS W/CONTRAST Codie Soto MD [address] [place] [address] Ct Imaging [place] [address] Referral ID Status Reason Start Date Expiration Date V isits Requested Visits Authorized [id number] Closed Auto-Generate d Referral 11/18/2022 12/18/2023 1 1 Specialty Diagnoses / Procedures Referred By Contac t Referred To Contact Infectious Diseases Diagnoses Brain lesion Visual field defect Lesion of brain Procedures CONSULT TO INFECTIOUS DISEASES OFFICE/OUTPATIENT NEW HIGH MDM 60-74 MINUTES Codie Soto MD [address] [place] [address] [facility] [address] [place] [address] Referral ID Status Reason Start Date Expiration Date Visits Requested Visits Authorized [id number] Authorized PCP Requested Referral 05/03/2023 05/02/2024 1 1 Specialty Diagnoses / Procedures Referred By Contac t Referred To Contact MR IMAGING Diagnoses Brain lesion Procedures MRI BRAIN WO/W IVCON MRI BRAIN BRAIN STEM W/O W/CONTRAST MATERIAL Codie Soto MD [address] [place] [address] Mr Imaging [place] [address] Referral ID Status Reason Start Date Expiration Date V isits Requested Visits Authorized [id number] Closed Auto-Generate d Referral 05/04/2023 06/02/2024 1 1 Specialty Diagnoses / Procedures Referred By Contac t Referred To Contact MR IMAGING Diagnoses Brain lesion Procedures MRI LUMBAR SPINE WO/W IVCON MRI SPINAL CANAL LUMBAR W/O & W/CONTR MATRL Codie Soto MD [address] [place] [address] Mr Imaging [place] [address] Referral ID Status Reason Start Date Expiration Date V isits Requested Visits Authorized [id number] Closed Auto-Generate d Referral 05/04/2023 06/02/2024 1 1 Referral ID Status Reason Start Date Expiration Date Visits Requested Visits Authorized [id number] Authorized Auto-Generat ed Referral 07/22/2023 08/20/2024 1 1 Specialty Diagnoses / Procedures Referred By Contac t Referred To Contact MR IMAGING Diagnoses 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 disorder (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) Brain lesion Procedures MRI BRAIN WO/W IVCON MRI BRAIN BRAIN STEM W/O W/CONTRAST MATERIAL Harlan Lozano MD [address] [facility] [place] [address] Mr Imaging [place] [address] Referral ID Status Reason Start Date Expiration Date Visits Requested Visits Authorized [id number] Pending Review Auto-Generat ed Referral 10/21/2023 08/19/2024 1 1 Referral ID Status Reason Start Date Expiration Date V isits Requested Visits Authorized [id number] Closed Auto-Generate d Referral 07/22/2023 08/20/2024 1 1 Referral ID Status Reason Start Date Expiration Date Visits Requested Visits Authorized [id number] Pending Review Auto-Generat ed Referral 10/25/2023 11/23/2024 1 1 Specialty Diagnoses / Procedures Referred By Contac t Referred To Contact Neurology Diagnoses Seizures (HCC) Procedures CONSULT TO NEUROLOGY OFFICE/OUTPATIENT [facility] 60 MINUTES Libertad Santiago, MECHANICAL ASSEMBLER.MARKETING AND OUTREACH COORDINATOR [address] [address] Referral ID Status Reason Start Date Expiration Date Visits Requested Visits Authorized [id number] Authorized PCP Requested Referral 12/03/2023 12/02/2024 1 1 Referral ID Status Reason Start Date Expiration Date V isits Requested Visits Authorized [id number] Closed Auto-Generate d Referral 10/25/2023 11/23/2024 1 1 Specialty Diagnoses / Procedures Referred By Contac t Referred To Contact MR IMAGING Diagnoses Brain lesion Procedures MRI BRAIN WO/W IVCON MRI BRAIN BRAIN STEM W/O W/CONTRAST MATERIAL Annamaria Ibarra, MECHANICAL ASSEMBLER.MARKETING AND OUTREACH COORDINATOR [address] [place] [address] Mr Imaging [place] [address] Referral ID Status Reason Start Date Expiration Date Visits Requested Visits Authorized [id number] New Request Auto-Generat ed Referral 01/26/2024 02/24/2025 1 1 Referral ID Status Reason Start Date Expiration Date Visits Requested Visits Authorized [id number] New Request Auto-Generat ed Referral 05/24/2025 1 [...] a Fluress shortage, administer 1 drop of [place]-Fluor into both eyes as directed for applanation [...] section and content) DATE CREATED AUTHOR 10/26/2017 [facility] DATE CREATED AUTHOR AUTHOR'S ORGANIZ ATION 06/26/2022 [facility] DATE CREATED AUTHOR AUTHOR'S ORGANIZ ATION 09/14/2022 [facility] DATE CREATED AUTHOR AUTHOR'S ORGANIZ ATION 12/01/2023 [facility] DATE CREATED AUTHOR AUTHOR'S ORGANIZ ATION 12/05/2023 [facility] DATE CREATED AUTHOR AUTHOR'S ORGANIZ ATION 02/03/2025 [facility] DATE CREATED AUTHOR AUTHOR'S ORGANIZ ATION 03/07/2025 [facility] Goals (unrecognized section and content) Goals may [...] Status: Active Member Role Status Dates DEONTE MARY CHANDLER Family Provider Active Dr. Solis Cool [...] Dr. Blayne Hawley MD Attending Provider Active Custodial Operations Manager Relationship Specialty Start Date End Date Solis Cool, DO [address] [place] [address] PCP - General Internal Medicine 06/24/22 Corrie Alvares [address] [place] [address] Referring Cardiology 06/11/22 Custodial Operations Manager Relationship Specialty Start Date End Date Solis Cool, [address] [place] [address] PCP - General Internal Medicine 06/24/22 Corrie Alvares [address] [place] [address] Referring Cardiology 06/11/22 Custodial Operations Manager Relationship Specialty Start Date End Date Solis Cool, DO [address] [place] [address] PCP - General Internal Medicine 06/24/22 Corrie Alvares [address] [place] [address] Referring Cardiology 06/11/22 Custodial Operations Manager Relationship Specialty Start Date End Date Solis Cool, DO [address] [place] [address] PCP - General Internal Medicine 06/24/22 Corrie Alvares [address] [place] [address] Referring Cardiology 06/11/22 Custodial Operations Manager Relationship Specialty Start Date End Date Solis Cool DO [address] [place] [address] PCP - General Internal Medicine 06/24/22 Corrie Alvares [address] [facility] [address] [place] [address] Referring Cardiology 06/11/22 Custodial Operations Manager Relationship Specialty Start Date End Date Solis Cool DO [address] [facility] [address] [place] [address] PCP - General Internal Medicine 06/24/22 Corrie Alvares [address] [facility] [address] [place] [address] Referring Cardiology 06/11/22 Rad Pro DO [address] [place], [place] [id number] Neurology 10/21/22 Custodial Operations Manager Relationship Specialty Start Date End Date Solis Cool DO [address] [facility] [address] [place] [address] PCP - General Internal Medicine 06/24/22 Corrie Alvares [address] [facility] [address] [place] [address] Referring Cardiology 06/11/22 Rad Pro DO [address] [place] [address] Neurology 10/21/22 Team Status: Inactive Member Role Status Dates Dr. Solis Cool , DO Primary Care Provider, Referr ing Provider Active José Luis Stauffer CHAR FILTER OPERATOR HELPER, CHAR FILTER OPERATOR HELPER-C Attending Provider Active Team Status: Active Member Role Status Dates Dr. Solis Cool , DO Primary Care Provider Active MORTEZA LEROY Attending Provider, Referring Provi edwina Active Team Status: Inactive Member Role Status Dates Dr. Solis Cool , DO Primary Care Provider Active José Luis Stauffer CHAR FILTER OPERATOR HELPER, CHAR FILTER OPERATOR HELPER-C Attending Provider, Referring Pro vider Active Custodial Operations Manager Relationship Specialty Start Date End Date Solis Cool, DO [address] [place] [address] PCP - General Internal Medicine 06/24/[address] [place] [address] Referring Cardiology 06/11/22 Rad Pro DO [address] [place] [address] Neurology 10/21/22 Custodial Operations Manager Relationship Specialty Start Date End Date Solis Cool DO [address] [place] [address] PCP - General Internal Medicine 06/24/[address] [place] [address] Referring Cardiology 06/11/22 Rad Pro DO [address] [place] [address] Neurology 10/21/22 Custodial Operations Manager Relationship Specialty Start Date End Date Solis Cool DO [address] [place] [address] PCP - General Internal Medicine 06/24/22 Corrie Alvares [address] [place] [address] Referring Cardiology 06/11/22 Rad Pro DO [address] [place] [address] Neurology 10/21/22 Custodial Operations Manager Relationship Specialty Start Date End Date Solis Cool DO [address] [place] [address] PCP - General Internal Medicine 06/24/22 Corrie Alvares [address] [facility] [address] [place] [address] Referring Cardiology 06/11/22 Rad Pro DO [address] [place] [address] Neurology 10/21/22 Custodial Operations Manager Relationship Specialty Start Date End Date Solis Cool DO [address] [place] [address] PCP - General Internal Medicine 06/24/22 Corrie Alvares [address] [facility] [address] [place] [address] Referring Cardiology 06/11/22 Rad Pro DO [address] [place] [address] Neurology 10/21/22 Custodial Operations Manager Relationship Specialty Start Date End Date Solis Cool DO [address] [place] [address] PCP - General Internal Medicine 06/24/22 Corrie Alvares [address] [facility] [address] [place] [address] Referring Cardiology 06/11/22 Rad Pro DO [address] [place] [address] Neurology 10/21/22 Custodial Operations Manager Relationship Specialty Start Date End Date Solis Cool DO [address] [place] [address] PCP - General Internal Medicine 06/24/22 Corrie Alvares [address] [place] [address] Referring Cardiology 06/11/22 Rad Pro DO [address] [place] [address] Neurology 10/21/22 Custodial Operations Manager Relationship Specialty Start Date End Date Solis Cool DO [address] [place] [address] PCP - General Internal Medicine 06/24/22 Corrie Alvares [address] [facility] [address] [place] [address] Referring Cardiology 06/11/22 Rad Pro DO [address] [place] [address] Neurology 10/21/22 Custodial Operations Manager Relationship Specialty Start Date End Date Solis Cool DO [address] [place] [address] PCP - General Internal Medicine 06/24/22 Corrie Alvares [address] [facility] [address] [place] [address] Referring Cardiology 06/11/22 Rad Pro DO [address] [place], [place] [id number] Neurology 10/21/22 Custodial Operations Manager Relationship Specialty Start Date End Date Solis Cool DO [address] [place] [address] PCP - General Internal Medicine 06/24/22 Corrie Alvares [address] [place] [address] Referring Cardiology 06/11/22 Rad Pro DO [address] [place] [address] Neurology 10/21/22 Christine Aguayo LSW [employer] Bonder Hematology/Oncology 11/16/22 Custodial Operations Manager Relationship Specialty Start Date End Date Solis Cool DO [address] [place] [address] PCP - General Internal Medicine 06/24/22 Corrie Alvares [address] [place] [address] Referring Cardiology 06/11/22 Rad Pro DO [address] [place] [address] Neurology 10/21/22 Christine Aguayo LSW [employer] Hematology/Oncology 11/16/22 Custodial Operations Manager Relationship Specialty Start Date End Date Solis Cool DO [address] [place] [address] PCP - General Internal Medicine 06/24/22 Corrie Alvares [address] [place] [address] Referring Cardiology 06/11/22 Rad Pro DO [address] [place] [address] Neurology 10/21/22 Christine Aguayo LSW [employer] Hematology/Oncology 11/16/22 Custodial Operations Manager Relationship Specialty Start Date End Date Solis Cool DO [address] [place] [address] PCP - General Internal Medicine 06/24/22 Corrie Alvares [address] [place] [address] Referring Cardiology 06/11/22 Rad Pro DO [address] [place] [address] Neurology 10/21/22 Christine Aguayo LSW [employer] Hematology/Oncology 11/16/22 Custodial Operations Manager Relationship Specialty Start Date End Date Solis Cool DO [address] [place] [address] PCP - General Internal Medicine 06/24/22 Corrie Alvares [address] [place] [address] Referring Cardiology 06/11/22 Rad Pro DO [address] [place] [address] Neurology 10/21/22 Christine Aguayo [employer] Autom[employer] Hematology/Oncology 11/16/22 Custodial Operations Manager Relationship Specialty Start Date End Date Solis Cool DO [address] [place] [address] PCP - General Internal Medicine 06/24/22 Corrie Alvares [address] [place] [address] Referring Cardiology 06/11/22 Rad Pro DO [address] [place], [place] [address] Neurology 10/21/22 Christine Aguayo LSW [employer] Hematology/Oncology 11/16/22 Custodial Operations Manager Relationship Specialty Start Date End Date Solis Cool DO [address] [place] [address] PCP - General Internal Medicine 06/24/22 Corrie Alvares [address] [place] [address] Referring Cardiology 06/11/22 Rad Pro DO [address] [place] [address] Neurology 10/21/22 Christine Aguayo LSW [employer] Hematology/Oncology 11/16/22 Custodial Operations Manager Relationship Specialty Start Date End Date Solis Cool DO [address] [place] [address] PCP - General Internal Medicine 06/24/22 Corrie Alvares [address] [place] [address] Referring Cardiology 06/11/22 Rad Pro DO [address] [place] [address] Neurology 10/21/22 Christine Aguayo LSW [employer] Hematology/Oncology 11/16/22 Custodial Operations Manager Relationship Specialty Start Date End Date Solis Cool DO [address] [place] [address] PCP - General Internal Medicine 06/24/22 Corrie Alvares [address] [place] [address] Referring Cardiology 06/11/22 Rad Pro DO [address] [place] [address] Neurology 10/21/22 Christine Agauyo LSW [employer] Hematology/Oncology 11/16/22 Custodial Operations Manager Relationship Specialty Start Date End Date Solis Cool DO [address] [place] [address] PCP - General Internal Medicine 06/24/22 Corrie Alvares [address] [place] [address] Referring Cardiology 06/11/22 Rad Pro DO [address] [place] [address] Neurology 10/21/22 Christine Aguayo LSW [employer] Hematology/Oncology 11/16/22 Custodial Operations Manager Relationship Specialty Start Date End Date Solis Cool DO [address] [place] [address] PCP - General Internal Medicine 06/24/22 Corrie Alvares [address] [place] [address] Referring Cardiology 06/11/22 Rad Pro DO [address] [place], [place] [address] Neurology 10/21/22 Christine Aguayo, [facility] Automobile Brakes Bonder Hematology/Oncology 11/16/22 Custodial Operations Manager Relationship Specialty Start Date End Date Solis Cool DO [address] [place] [address] PCP - General Internal Medicine 06/24/22 Corrie Alvares [address] [place] [address] Referring Cardiology 06/11/22 Rad Pro DO [address] [place] [address] Neurology 10/21/22 Christine Aguayo, [facility] Autom[employer] Hematology/Oncology 11/16/22 Custodial Operations Manager Relationship Specialty Start Date End Date Solis Cool DO [address] [place] [address] PCP - General Internal Medicine 06/24/22 Corrie Alvares [address] [place] [address] Referring Cardiology 06/11/22 Rad Pro DO [address] [place] [address] Neurology 10/21/22 Christine Aguayo, [facility] Autom[employer]onder Hematology/Oncology 11/16/22 Custodial Operations Manager Relationship Specialty Start Date End Date Solis Cool DO [address] [place] [address] PCP - General Internal Medicine 06/24/22 Corrie Alvares [address] [place] [address] Referring Cardiology 06/11/22 Rad Pro DO [address] [place] [address] Neurology 10/21/22 Christine Aguayo, [facility] Autom[employer]onder Hematology/Oncology 11/16/22 Custodial Operations Manager Relationship Specialty Start Date End Date Solis Cool DO [address] [place] [address] PCP - General Internal Medicine 06/24/22 Corrie Alvares [address] [place] [address] Referring Cardiology 06/11/22 Custodial Operations Manager Relationship Specialty Start Date End Date Solis Cool DO [address] [place] [address] PCP - General Internal Medicine 06/24/22 Corrie Alvares [address] [place] [address] Referring Cardiology 06/11/22 Rad Pro DO [address] [place] [address] Neurology 10/21/22 Christine Aguayo LSW [employer] Hematology/Oncology 11/16/22 Custodial Operations Manager Relationship Specialty Start Date End Date Solis Cool DO [address] [place], [place] [address] PCP - General Internal Medicine 06/24/22 Corrie Alvares [address] [facility] [address] [place] [address] Referring Cardiology 06/11/22 Rad Pro DO [address] [place] [address] Neurology 10/21/22 Christine Aguayo [employer] Autom[employer]onder Hematology/Oncology 11/16/22 Custodial Operations Manager Relationship Specialty Start Date End Date Solis Cool DO [address] [place] [address] PCP - General Internal Medicine 06/24/22 Corrie Alvares [address] [facility] [address] [place] [address] Referring Cardiology 06/11/22 Rad Pro DO [address] [place] [address] Neurology 10/21/22 Christine Aguayo LSW [employer] Hematology/Oncology 11/16/22 Custodial Operations Manager Relationship Specialty Start Date End Date Solis Cool DO [address] [place] [address] PCP - General Internal Medicine 06/24/22 Corrie Alvares [address] [place] [address] Referring Cardiology 06/11/22 Rad Pro DO [address] [place], [place] [address] Neurology 10/21/22 Christine Aguayo [facility] Autom[employer]onder Hematology/Oncology 11/16/22 Custodial Operations Manager Relationship Specialty Start Date End Date Solis Cool DO [address] [place] [address] PCP - General Internal Medicine 06/24/22 Corrie Alvares [address] [place] [address] Referring Cardiology 06/11/22 Rad Pro DO [address] [place] [address] Neurology 10/21/22 Christine Aguayo [facility] Autom[employer]onder Hematology/Oncology 11/16/22 Custodial Operations Manager Relationship Specialty Start Date End Date Solis Cool DO [address] [place] [address] PCP - General Internal Medicine 06/24/22 Corrie Alvares [address] [place] [address] Referring Cardiology 06/11/22 Rad Pro DO [address] [place] [address] Neurology 10/21/22 Christine Aguayo LSW [employer] Hematology/Oncology 11/16/22 Custodial Operations Manager Relationship Specialty Start Date End Date Solis Cool DO [address] [place], [place] [address] PCP - General Internal Medicine 06/24/22 Corrie Alvares [address] [place] [address] Referring Cardiology 06/11/22 Rad Pro DO [address] [place] [address] Neurology 10/21/22 Christine Aguayo [facility] Autom[employer]onder Hematology/Oncology 11/16/22 Custodial Operations Manager Relationship Specialty Start Date End Date Solis Cool DO [address] [place] [address] PCP - General Internal Medicine 06/24/22 Corrie Alvares [address] [facility] [address] [place] [address] Referring Cardiology 06/11/22 Rad Pro DO [address] [place] [address] Neurology 10/21/22 Christine Aguayo [facility] Automobile Brakes Bonder Hematology/Oncology 11/16/22 Custodial Operations Manager Relationship Specialty Start Date End Date Solis Cool DO [address] [place] [address] PCP - General Internal Medicine 06/24/22 Corrie Alvares [address] [place] [address] Referring Cardiology 06/11/22 Rad Pro DO [address], [place] [id number] Neurology 10/21/22 Christine Aguayo [facility] [employer] Hematology/Oncology 11/16/22 Custodial Operations Manager Relationship Specialty Start Date End Date Solis Cool DO [address] [place] [address] PCP - General Internal Medicine 06/24/22 Corrie Alvares [address] [place] [address] Referring Cardiology 06/11/22 Rad Pro DO [address] [place] [address] Neurology 10/21/22 Christine Aguayo [facility] [employer] Hematology/Oncology 11/16/22 Custodial Operations Manager Relationship Specialty Start Date End Date Solis Cool DO [address] [place] [address] PCP - General Internal Medicine 06/24/22 Corrie Alvares [address] [place] [address] Referring Cardiology 06/11/22 Rad Pro DO [address] [place] [address] Neurology 10/21/22 Christine Aguayo LSW [employer] Hematology/Oncology 11/16/22 Custodial Operations Manager Relationship Specialty Start Date End Date Solis Cool DO [address] [place], [place] [address] PCP - General Internal Medicine 06/24/22 Corrie Alvares [address] [facility] [address] [place] [address] Referring Cardiology 06/11/22 Rad Pro DO [address] [place] [address] Neurology 10/21/22 Christine Aguayo [facility] [employer] Hematology/Oncology 11/16/22 Custodial Operations Manager Relationship Specialty Start Date End Date Solis Cool DO [address] [place] [address] PCP - General Internal Medicine 06/24/22 Corrie Alvares [address] [facility] [address] [place] [address] Referring Cardiology 06/11/22 Rad Pro DO [address] [place] [address] Neurology 10/21/22 Christine Aguayo [employer] Hematology/Oncology 11/16/22 Custodial Operations Manager Relationship Specialty Start Date End Date Solis Cool DO [address] [place] [address] PCP - General Internal Medicine 06/24/22 Corrie Alvares [address] [place] [address] Referring Cardiology 06/11/22 Rad Pro DO [address] [place], [place] [id number] Neurology 10/21/22 Christine Aguayo LSW [employer] Hematology/Oncology 11/16/22 Custodial Operations Manager Relationship Specialty Start Date End Date Solis Cool DO [address] [place] [address] PCP - General Internal Medicine 06/24/22 Corrie Alvares [address] [place] [address] Referring Cardiology 06/11/22 Rad Pro DO [address] [place] [address] Neurology 10/21/22 Christine Aguayo [facility] [employer] Hematology/Oncology 11/16/22 Custodial Operations Manager Relationship Specialty Start Date End Date Solis Cool DO [address] [place] [address] PCP - General Internal Medicine 06/24/22 Corrie Alvares [address] [place] [address] Referring Cardiology 06/11/22 Rad Pro DO [address] [place] [address] Neurology 10/21/22 Christine Aguayo LSW [employer] Hematology/Oncology 11/16/22 Custodial Operations Manager Relationship Specialty Start Date End Date Solis Cool DO [address] [place] [address] PCP - General Internal Medicine 06/24/22 Corrie Alvares [address] [place] [address] Referring Cardiology 06/11/22 Rad Pro DO [address] [place] [address] Neurology 10/21/22 Christine Aguayo [facility] [employer] Hematology/Oncology 11/16/22 Custodial Operations Manager Relationship Specialty Start Date End Date Solis Cool DO [address] [place] [address] PCP - General Internal Medicine 06/24/22 Corrie Alvares [address] [place] [address] Referring Cardiology 06/11/22 Rad Pro DO [address] [place] [address] Neurology 10/21/22 Christine Gannon LSW [employer] Hematology/Oncology 11/16/22 Custodial Operations Manager Relationship Specialty Start Date End Date Solis Cool DO [address] [place] [address] PCP - General Internal Medicine 06/24/22 Corrie Alvares [address] [place] [address] Referring Cardiology 06/11/22 Rad Pro DO [address], [place] [id number] Neurology 10/21/22 Christine Gannon, [employer] Hematology/Oncology 11/16/22 Custodial Operations Manager Relationship Specialty Start Date End Date Solis Cool DO [address] [place] [address] PCP - General Internal Medicine 06/24/22 Corrie Alvares [address] [facility] [address] [place] [address] Referring Cardiology 06/11/22 Rad Pro DO [address] [place] [address] Neurology 10/21/22 Christine Gannon [facility] [employer] Hematology/Oncology 11/16/22 Custodial Operations Manager Relationship Specialty Start Date End Date Solis Cool DO [address] [place] [address] PCP - General Internal Medicine 06/24/22 Corrie Alvares [address] [place] [address] Referring Cardiology 06/11/22 Rad Pro DO [address] [place] [id number] Neurology 10/21/22 Christine Gannon, [facility] [employer] Hematology/Oncology 11/16/22 Custodial Operations Manager Relationship Specialty Start Date End Date Solis Cool DO [address] [place] [address] PCP - General Internal Medicine 06/24/22 Corrie Alvares [address] [place] [address] Referring Cardiology 06/11/22 Rad Pro DO [address] [place] [address] Neurology 10/21/22 Christine Gannon, [facility] [employer] Hematology/Oncology 11/16/22 Custodial Operations Manager Relationship Specialty Start Date End Date Solis Cool DO [address] [place] [address] PCP - General Internal Medicine 06/24/22 Corrie Alvares [address] [place] [address] Referring Cardiology 06/11/22 Rad Pro DO [address] [place] [address] Neurology 10/21/22 Christine Gannon, [facility] [employer] Hematology/Oncology 11/16/22 Custodial Operations Manager Relationship Specialty Start Date End Date Solis Cool DO [address] [place] [address] PCP - General Internal Medicine 06/24/22 Corrie Alvares [address] [place] [address] Referring Cardiology 06/11/22 Rad Pro DO [address] [place] [address] Neurology 10/21/22 Christine Gannon LSW [employer] Hematology/Oncology 11/16/22 Team Status: Active Member Role/Relationship [...] November 24, 2024 End: November 24, 2024 Custodial Operations Manager Relationship Specialty Start Date End Date Solis Cool DO [address] [place] [address] PCP - General Internal Medicine 06/24/22 Corrie Alvares [address] [place] [address] Referring Cardiology 06/11/22 Rad Pro DO [address] [place] [address] Neurology 10/21/22 Christine Gannon, [employer] Hematology/Oncology 11/16/22 Custodial Operations Manager Relationship Specialty Start Date End Date Solis Cool DO [address] [place] [address] PCP - General Internal Medicine 06/24/22 Corrie Alvares [address] [facility] [address] [place] [address] Referring Cardiology 06/11/22 Rad Pro DO [address] [place] [address] Neurology 10/21/22 Christine Gannon, [employer] Hematology/Oncology 11/16/22 Team Status: Inactive Member Role/Relationship Status Dates Dr. Solsi Cool DO Primary Care Provider Active Start: December 19, 2024 End: December 19, 2024 SUSAN Pichardo Attending Provider Active St art: December 19, 2024 End: December 19, 2024 SUSAN Pichardo Referring Provider Active St art: December 19, 2024 End: December 19, 2024 Team Status: Active Member Role/Relationship Status Dates Dr. Solis Cool DO Primary Care Provider Active Start: December 19, 2024 SUSAN Pichardo Referring Provider Active St art: December 19, 2024 SUSAN Pichardo Other Provider Active Start: December 19, 2024 Dr. William Shine MD Attending Provider Active S tart: December 19, 2024 Source Comments (unrecognize d section and content) In the event this informatio n is protected by the Federal Confidentiality of Alcohol and Drug Abuse Patient Records regulations: The Federal rules restrict any use of the information to criminally investigate or prosecute any alcohol or drug abuse patient.[facility] the event this information is protected by the Federal Confidentiality of Alcohol and Drug Abuse Patient Records regulations: The Federal rules restrict any use of the information to criminally investigate or prosecute any alcohol or drug abuse patient.[facility]In the event this information is protected by the Federal Confidentiality of Alcohol and Drug Abuse Patient Records regulations: The Federal rules restrict any use of the information to criminally investigate or prosecute any alcohol or drug abuse patient.[facility]In the event this information is protected by the Federal Confidentiality of Alcohol and Drug Abuse Patient Records regulations: The Federal rules restrict any use of the information to criminally investigate or prosecute any alcohol or drug abuse patient.[facility]In the event this information is protected by the Federal Confidentiality of Alcohol and Drug Abuse Patient Records regulations: The Federal rules restrict any use of the information to criminally investigate or prosecute any alcohol or drug abuse patient.[facility] HospitalIn the event this information is protected by the Federal Confidentiality of Alcohol and Drug Abuse Patient Records regulations: The Federal rules restrict any use of the information to criminally investigate or prosecute any alcohol or drug abuse patient.[facility] HospitalIn the event this information is protected by the Federal Confidentiality of Alcohol and Drug Abuse Patient Records regulations: The Federal rules restrict any use of the information to criminally investigate or prosecute any alcohol or drug abuse patient.[facility]In the event this information is protected by the Federal Confidentiality of Alcohol and Drug Abuse Patient Records regulations: The Federal rules restrict any use of the information to criminally investigate or prosecute any alcohol or drug abuse patient.[facility]In the event this information is protected by the Federal Confidentiality of Alcohol and Drug Abuse Patient Records regulations: The Federal rules restrict any use of the information to criminally investigate or prosecute any alcohol or drug abuse patient.[facility]In the event this information is protected by the Federal Confidentiality of Alcohol and Drug Abuse Patient Records regulations: The Federal rules restrict any use of the information to criminally investigate or prosecute any alcohol or drug abuse patient.[facility]In the event this information is protected by the Federal Confidentiality of Alcohol and Drug Abuse Patient Records regulations: The Federal rules restrict any use of the information to criminally investigate or prosecute any alcohol or drug abuse patient.[facility] HospitalIn the event this information is protected by the Federal Confidentiality of Alcohol and Drug Abuse Patient Records regulations: The Federal rules restrict any use of the information to criminally investigate or prosecute any alcohol or drug abuse patient.[facility] HospitalIn the event this information is protected by the Federal Confidentiality of Alcohol and Drug Abuse Patient Records regulations: The Federal rules restrict any use of the information to criminally investigate or prosecute any alcohol or drug abuse patient.[facility]In the event this information is protected by the Federal Confidentiality of Alcohol and Drug Abuse Patient Records regulations: The Federal rules restrict any use of the information to criminally investigate or prosecute any alcohol or drug abuse patient.[facility] HospitalIn the event this information is protected by the Federal Confidentiality of Alcohol and Drug Abuse Patient Records regulations: The Federal rules restrict any use of the information to criminally investigate or prosecute any alcohol or drug abuse patient.[facility] HospitalIn the event this information is protected by the Federal Confidentiality of Alcohol and Drug Abuse Patient Records regulations: The Federal rules restrict any use of the information to criminally investigate or prosecute any alcohol or drug abuse patient.[facility] HospitalIn the event this information is protected by the Federal Confidentiality of Alcohol and Drug Abuse Patient Records regulations: The Federal rules restrict any use of the information to criminally investigate or prosecute any alcohol or drug abuse patient.[facility] HospitalIn the event this information is protected by the Federal Confidentiality of Alcohol and Drug Abuse Patient Records regulations: The Federal rules restrict any use of the information to criminally investigate or prosecute any alcohol or drug abuse patient.[facility] HospitalIn the event this information is protected by the Federal Confidentiality of Alcohol and Drug Abuse Patient Records regulations: The Federal rules restrict any use of the information to criminally investigate or prosecute any alcohol or drug abuse patient.[facility] HospitalIn the event this information is protected by the Federal Confidentiality of Alcohol and Drug Abuse Patient Records regulations: The Federal rules restrict any use of the information to criminally investigate or prosecute any alcohol or drug abuse patient.[facility] HospitalIn the event this information is protected by the Federal Confidentiality of Alcohol and Drug Abuse Patient Records regulations: The Federal rules restrict any use of the information to criminally investigate or prosecute any alcohol or drug abuse patient.[facility] HospitalIn the event this information is protected by the Federal Confidentiality of Alcohol and Drug Abuse Patient Records regulations: The Federal rules restrict any use of the information to criminally investigate or prosecute any alcohol or drug abuse patient.[facility] HospitalIn the event this information is protected by the Federal Confidentiality of Alcohol and Drug Abuse Patient Records regulations: The Federal rules restrict any use of the information to criminally investigate or prosecute any alcohol or drug abuse patient.[facility] HospitalIn the event this information is protected by the Federal Confidentiality of Alcohol and Drug Abuse Patient Records regulations: The Federal rules restrict any use of the information to criminally investigate or prosecute any alcohol or drug abuse patient.[facility]In the event this information is protected by the Federal Confidentiality of Alcohol and Drug Abuse Patient Records regulations: The Federal rules restrict any use of the information to criminally investigate or prosecute any alcohol or drug abuse patient.[facility] HospitalIn the event this information is protected by the Federal Confidentiality of Alcohol and Drug Abuse Patient Records regulations: The Federal rules restrict any use of the information to criminally investigate or prosecute any alcohol or drug abuse patient.[facility] HospitalIn the event this information is protected by the Federal Confidentiality of Alcohol and Drug Abuse Patient Records regulations: The Federal rules restrict any use of the information to criminally investigate or prosecute any alcohol or drug abuse patient.[facility] HospitalIn the event this information is protected by the Federal Confidentiality of Alcohol and Drug Abuse Patient Records regulations: The Federal rules restrict any use of the information to criminally investigate or prosecute any alcohol or drug abuse patient.[facility] HospitalIn the event this information is protected by the Federal Confidentiality of Alcohol and Drug Abuse Patient Records regulations: The Federal rules restrict any use of the information to criminally investigate or prosecute any alcohol or drug abuse patient.[facility] HospitalIn the event this information is protected by the Federal Confidentiality of Alcohol and Drug Abuse Patient Records regulations: The Federal rules restrict any use of the information to criminally investigate or prosecute any alcohol or drug abuse patient.[facility] HospitalIn the event this information is protected by the Federal Confidentiality of Alcohol and Drug Abuse Patient Records regulations: The Federal rules restrict any use of the information to criminally investigate or prosecute any alcohol or drug abuse patient.[facility] HospitalIn the event this information is protected by the Federal Confidentiality of Alcohol and Drug Abuse Patient Records regulations: The Federal rules restrict any use of the information to criminally investigate or prosecute any alcohol or drug abuse patient.[facility] HospitalIn the event this information is protected by the Federal Confidentiality of Alcohol and Drug Abuse Patient Records regulations: The Federal rules restrict any use of the information to criminally investigate or prosecute any alcohol or drug abuse patient.[facility] HospitalIn the event this information is protected by the Federal Confidentiality of Alcohol and Drug Abuse Patient Records regulations: The Federal rules restrict any use of the information to criminally investigate or prosecute any alcohol or drug abuse patient.[facility] HospitalIn the event this information is protected by the Federal Confidentiality of Alcohol and Drug Abuse Patient Records regulations: The Federal rules restrict any use of the information to criminally investigate or prosecute any alcohol or drug abuse patient.[facility] HospitalIn the event this information is protected by the Federal Confidentiality of Alcohol and Drug Abuse Patient Records regulations: The Federal rules restrict any use of the information to criminally investigate or prosecute any alcohol or drug abuse patient.[facility]In the event this information is protected by the Federal Confidentiality of Alcohol and Drug Abuse Patient Records regulations: The Federal rules restrict any use of the information to criminally investigate or prosecute any alcohol or drug abuse patient.[facility] HospitalIn the event this information is protected by the Federal Confidentiality of Alcohol and Drug Abuse Patient Records regulations: The Federal rules restrict any use of the information to criminally investigate or prosecute any alcohol or drug abuse patient.[facility] HospitalIn the event this information is protected by the Federal Confidentiality of Alcohol and Drug Abuse Patient Records regulations: The Federal rules restrict any use of the information to criminally investigate or prosecute any alcohol or drug abuse patient.[facility] HospitalIn the event this information is protected by the Federal Confidentiality of Alcohol and Drug Abuse Patient Records regulations: The Federal rules restrict any use of the information to criminally investigate or prosecute any alcohol or drug abuse patient.[facility] HospitalIn the event this information is protected by the Federal Confidentiality of Alcohol and Drug Abuse Patient Records regulations: The Federal rules restrict any use of the information to criminally investigate or prosecute any alcohol or drug abuse patient.[facility] HospitalIn the event this information is protected by the Federal Confidentiality of Alcohol and Drug Abuse Patient Records regulations: The Federal rules restrict any use of the information to criminally investigate or prosecute any alcohol or drug abuse patient.[facility] HospitalIn the event this information is protected by the Federal Confidentiality of Alcohol and Drug Abuse Patient Records regulations: The Federal rules restrict any use of the information to criminally investigate or prosecute any alcohol or drug abuse patient.[facility] HospitalIn the event this information is protected by the Federal Confidentiality of Alcohol and Drug Abuse Patient Records regulations: The Federal rules restrict any use of the information to criminally investigate or prosecute any alcohol or drug abuse patient.[facility] HospitalIn the event this information is protected by the Federal Confidentiality of Alcohol and Drug Abuse Patient Records regulations: The Federal rules restrict any use of the information to criminally investigate or prosecute any alcohol or drug abuse patient.[facility] HospitalIn the event this information is protected by the Federal Confidentiality of Alcohol and Drug Abuse Patient Records regulations: The Federal rules restrict any use of the information to criminally investigate or prosecute any alcohol or drug abuse patient.[facility] HospitalIn the event this information is protected by the Federal Confidentiality of Alcohol and Drug Abuse Patient Records regulations: The Federal rules restrict any use of the information to criminally investigate or prosecute any alcohol or drug abuse patient.[facility] HospitalIn the event this information is protected by the Federal Confidentiality of Alcohol and Drug Abuse Patient Records regulations: The Federal rules restrict any use of the information to criminally investigate or prosecute any alcohol or drug abuse patient.[facility] HospitalIn the event this information is protected by the Federal Confidentiality of Alcohol and Drug Abuse Patient Records regulations: The Federal rules restrict any use of the information to criminally investigate or prosecute any alcohol or drug abuse patient.[facility] HospitalIn the event this information is protected by the Federal Confidentiality of Alcohol and Drug Abuse Patient Records regulations: The Federal rules restrict any use of the information to criminally investigate or prosecute any alcohol or drug abuse patient.[facility] HospitalIn the event this information is protected by the Federal Confidentiality of Alcohol and Drug Abuse Patient Records regulations: The Federal rules restrict any use of the information to criminally investigate or prosecute any alcohol or drug abuse patient.[facility] HospitalIn the event this information is protected by the Federal Confidentiality of Alcohol and Drug Abuse Patient Records regulations: The Federal rules restrict any use of the information to criminally investigate or prosecute any alcohol or drug abuse patient.[facility] HospitalIn the event this information is protected by the Federal Confidentiality of Alcohol and Drug Abuse Patient Records regulations: The Federal rules restrict any use of the information to criminally investigate or prosecute any alcohol or drug abuse patient.[facility] HospitalIn the event this information is protected by the Federal Confidentiality of Alcohol and Drug Abuse Patient Records regulations: The Federal rules restrict any use of the information to criminally investigate or prosecute any alcohol or drug abuse patient.[facility] HospitalIn the event this information is protected by the Federal Confidentiality of Alcohol and Drug Abuse Patient Records regulations: The Federal rules restrict any use of the information to criminally investigate or prosecute any alcohol or drug abuse patient.[facility] HospitalIn the event this information is protected by the Federal Confidentiality of Alcohol and Drug Abuse Patient Records regulations: The Federal rules restrict any use of the information to criminally investigate or prosecute any alcohol or drug abuse patient.[facility] HospitalIn the event this information is protected by the Federal Confidentiality of Alcohol and Drug Abuse Patient Records regulations: The Federal rules restrict any use of the information to criminally investigate or prosecute any alcohol or drug abuse patient.[facility] HospitalIn the event this information is protected by the Federal Confidentiality of Alcohol and Drug Abuse Patient Records regulations: The Federal rules restrict any use of the information to criminally investigate or prosecute any alcohol or drug abuse patient.[facility] HospitalIn the event this information is protected by the Federal Confidentiality of Alcohol and Drug Abuse Patient Records regulations: The Federal rules restrict any use of the information to criminally investigate or prosecute any alcohol or drug abuse patient.[facility] HospitalIn the event this information is protected by the Federal Confidentiality of Alcohol and Drug Abuse Patient Records regulations: The Federal rules restrict any use of the information to criminally investigate or prosecute any alcohol or drug abuse patient.[facility] HospitalIn the event this information is protected by the Federal Confidentiality of Alcohol and Drug Abuse Patient Records regulations: The Federal rules restrict any use of the information to criminally investigate or prosecute any alcohol or drug abuse patient.[facility]In the event this information is protected by the Federal Confidentiality of Alcohol and Drug Abuse Patient Records regulations: The Federal rules restrict any use of the information to criminally investigate or prosecute any alcohol or drug abuse patient.[facility]In the event this information is protected by the Federal Confidentiality of Alcohol and Drug Abuse Patient Records regulations: The Federal rules restrict any use of the information to criminally investigate or prosecute any alcohol or drug abuse patient.[facility] HospitalIn the event this information is protected by the Federal Confidentiality of Alcohol and Drug Abuse Patient Records regulations: The Federal rules restrict any use of the information to criminally investigate or prosecute any alcohol or drug abuse patient.[facility] HospitalIn the event this information is protected by the Federal Confidentiality of Alcohol and Drug Abuse Patient Records regulations: The Federal rules restrict any use of the information to criminally investigate or prosecute any alcohol or drug abuse patient.[facility] HospitalIn the event this information is protected by the Federal Confidentiality of Alcohol and Drug Abuse Patient Records regulations: The Federal rules restrict any use of the information to criminally investigate or prosecute any alcohol or drug abuse patient.[facility] HospitalIn the event this information is protected by the Federal Confidentiality of Alcohol and Drug Abuse Patient Records regulations: The Federal rules restrict any use of the information to criminally investigate or prosecute any alcohol or drug abuse patient.[facility] HospitalIn the event this information is protected by the Federal Confidentiality of Alcohol and Drug Abuse Patient Records regulations: The Federal rules restrict any use of the information to criminally investigate or prosecute any alcohol or drug abuse patient.[facility] HospitalIn the event this information is protected by the Federal Confidentiality of Alcohol and Drug Abuse Patient Records regulations: The Federal rules restrict any use of the information to criminally investigate or prosecute any alcohol or drug abuse patient.[facility] HospitalIn the event this information is protected by the Federal Confidentiality of Alcohol and Drug Abuse Patient Records regulations: The Federal rules restrict any use of the information to criminally investigate or prosecute any alcohol or drug abuse patient.[facility] HospitalIn the event this information is protected by the Federal Confidentiality of Alcohol and Drug Abuse Patient Records regulations: The Federal rules restrict any use of the information to criminally investigate or prosecute any alcohol or drug abuse patient.[facility] HospitalIn the event this information is protected by the Federal Confidentiality of Alcohol and Drug Abuse Patient Records regulations: The Federal rules restrict any use of the information to criminally investigate or prosecute any alcohol or drug abuse patient.[facility] HospitalIn the event this information is protected by the Federal Confidentiality of Alcohol and Drug Abuse Patient Records regulations: The Federal rules restrict any use of the information to criminally investigate or prosecute any alcohol or drug abuse patient.[facility] HospitalIn the event this information is protected by the Federal Confidentiality of Alcohol and Drug Abuse Patient Records regulations: The Federal rules restrict any use of the information to criminally investigate or prosecute any alcohol or drug abuse patient.[facility] HospitalIn the event this information is protected by the Federal Confidentiality of Alcohol and Drug Abuse Patient Records regulations: The Federal rules restrict any use of the information to criminally investigate or prosecute any alcohol or drug abuse patient.[facility] HospitalIn the event this information is protected by the Federal Confidentiality of Alcohol and Drug Abuse Patient Records regulations: The Federal rules restrict any use of the information to criminally investigate or prosecute any alcohol or drug abuse patient.[facility] Reason for Visit (unrecogniz ed section and content) Reason Comments Received Outside Medical Records Rec'd d ischarge summary from [facility] imported into [facility]. Reason Comments New Patient Evaluation Reason Comments Received Outside Medical Records Importe d [facility] report into [facility]. Reason Comments Follow Up Reason Comments Results Reason Comments triage Internal referral Reason Comments Results LUKE Reason Comments New Patient Specialty Diagnoses / Procedures Referred By Contac t Referred To Contact Neurology Diagnoses Glioma (HCC) Procedures CONSULT TO NEUROLOGY OFFICE/OUTPATIENT NEW HIGH MDM 60-74 MINUTES Rad [facility] DO [address] [place] [address] Referral ID Status Reason Start Date Expiration Date Visits Requested Visits Authorized [id number] Pending Review PCP Requested Referral 10/09/2022 10/09/2023 1 1 Specialty Diagnoses / Procedures Referred By Contac t Referred To Contact Diagnoses Glioma (HCC) Procedures REFER TO PACC - PRE ANESTHESIA CONSULTATION CLINIC OFFICE/OUTPATIENT [facility] 60-74 MINUTES Carlos Jovel MD [address] [place] [address] Referral ID Status Reason Start Date Expiration Date Visits Requested Visits Authorized [id number] Pending Review PCP Requested Referral 10/27/2022 10/27/2023 1 1 Reason Comments Radiology MRI Specialty Diagnoses / Procedures Referred By Contac t Referred To Contact MR IMAGING Diagnoses Glioma (HCC) Procedures MRI BRAIN WO/W IVCON MRI BRAIN BRAIN STEM W/O W/CONTRAST MATERIAL Carlos Jovel MD [address] [place] [address] Mr Imaging Referral ID Status Reason Start Date Expiration Date V isits Requested Visits Authorized [id number] Closed Auto-Generate d Referral 10/27/2022 11/26/2023 1 [...] LUMBAR W/O & W/CONTR Codie Milner MD [address] [address] Mr Imaging [place] [address] Referral ID Status Reason Start Date Expiration Date V isits Requested Visits Authorized [id number] Closed Auto-Generate d Referral 12/31/2022 01/30/2024 1 1 Specialty Diagnoses / Procedures Referred By Contac t Referred To Contact MR IMAGING Diagnoses Cerebral infarction, unspecified mechanism (HCC) Procedures MRI BRAIN WO/W IVCON MRI BRAIN BRAIN STEM W/O W/CONTRAST MATERIAL [facility] DO [address] [place] [address] Mr [facility] [place] [address] Referral ID Status Reason Start Date Expiration Date V isits Requested Visits Authorized [id number] Closed Auto-Generate d Referral 06/25/2022 07/25/2023 1 1 Reason Comments Radiology MRI Specialty Diagnoses / Procedures Referred By Contac t Referred To Contact MR IMAGING Diagnoses Glioma (HCC) Procedures MRI BRAIN WO/W IVCON MRI BRAIN BRAIN STEM W/O W/CONTRAST MATERIAL Codie Soto MD [address] [place] [address] Mr [facility] [place] [address] Referral ID Status Reason Start Date Expiration Date V isits Requested Visits Authorized [id number] Closed Auto-Generate d Referral 11/12/2022 12/12/2023 1 1 Referral ID Status Reason Start Date Expiration Date V isits Requested Visits Authorized [id number] Closed Auto-Generate d Referral 08/25/2022 09/24/2023 [address] Specialty Diagnoses / Procedures Referred By Contac t Referred To Contact CT IMAGING Diagnoses Lesion of brain Procedures CT CHEST W IVCON DIAGNOSTIC COMPUTED TOMOGRAPHY THORAX W/CONTRAST Codie Soto MD [address] [place] [address] Ct [facility] [place] [address] Referral ID Status Reason Start Date Expiration Date V isits Requested Visits Authorized [id number] Closed Auto-Generate d Referral 11/18/2022 12/18/2023 1 1 Reason Comments Disability paperwork completed Specialty Diagnoses / Procedures Referred By Contac t Referred To Contact ADMITTING Diagnoses Neoplasm of uncertain behavior of brain, supratentorial (HCC) Procedures DIAGNOSTIC LUMBAR SPINAL PUNCTURE SPINAL PUNCTURE LUMBAR DIAGNOSTIC [facility] [address] [place] [address] Referral ID Status Reason Start Date Expiration Date Visits Re quested Visits Authorized [id number] 1 1 Reason Comments Brain Tumor Reason Comments Infection Follow Up Patient is having so me dizziness Specialty Diagnoses / Procedures Referred By Contac t Referred To Contact MR IMAGING Diagnoses Brain lesion Procedures MRI BRAIN WO/W IVCON MRI BRAIN BRAIN STEM W/O W/CONTRAST MATERIAL Codie Soto MD [address] [place] [address] Mr [facility] [place] [address] Referral ID Status Reason Start Date Expiration Date V isits Requested Visits Authorized [id number] Closed Auto-Generate d Referral 05/04/2023 06/02/2024 1 1 Specialty Diagnoses / Procedures Referred By Contac t Referred To Contact MR IMAGING Diagnoses Brain lesion Procedures MRI LUMBAR SPINE WO/W IVCON MRI SPINAL CANAL LUMBAR W/O & W/CONTR WHITL Codie Soto MD [address] [place] [address] Mr [facility] [place] [address] Referral ID Status Reason Start Date Expiration Date V isits Requested Visits Authorized [id number] Closed Auto-Generate d Referral 05/04/2023 06/02/2024 1 1 Reason Comments Established Patient Follow-Up Referral ID Status Reason Start Date Expiration Date V isits Requested Visits Authorized [id number] Closed Auto-Generate d Referral 07/22/2023 08/20/2024 1 1 Reason Comments Jose week of 01/18 Reason Comments Seizure Call Reason Comments Appointment Referral ID Status Reason Start Date Expiration Date V isits Requested Visits Authorized [id number] Closed Auto-Generate d Referral 10/25/2023 11/23/2024 1 1 Reason Comments Follow Up Specialty Diagnoses / Procedures Referred By Contac t Referred To Contact Neurology Diagnoses Seizures (HCC) Procedures CONSULT TO NEUROLOGY OFFICE/OUTPATIENT [facility] 60 MINUTES iLbertad Santiago, MATTIE.MARKETING AND OUTREACH COORDINATOR [address] [address] Referral ID Status Reason Start Date Expiration Date V isits Requested Visits Authorized [id number] Closed PCP Requested Referral 12/03/2023 12/02/2024 1 1 Reason Comments Epilepsy Reason Onset Date Comments Refill Request 12/16/2024 PRN Active and Recently Administ ered Medications (unrecognized section and content) Medication Order 03/20/2023 03/21/2023 03/22/2023 acetaminophen 650 mg tab(s) (TYLENOL) 650 mg, ORAL, EVERY 4 HOURS NEEDED, Starting on 03/22/23 at 0932, Until Wed03/23/23 at 0304, Mild [...] BE BASED ON THE PRIMARY CLINICAL RECORDS. [facility]. provides no warranty or guarantee of the accuracy or completeness of information in this document.
== END | disposition home or self-care (01) ==
PROVIDERS: PCP Internal Medicine; Referring Provider Urology; Visit Provider Urology
DX: N13.30 Unspecified hydronephrosis (principal)
CPT/HCPCS: 74178; Q9967